=== PATIENT | male | born 1940 | race Caucasian/White ===

== ENCOUNTER 2022-02-04 17:25 | Emergency (ER) | payer OTHER, SELFPAY ==
[2022-02-04 17:42] VITALS: BP 141/75; PULSE 74; RESP 18; TEMP 37; O2SAT 98; BMI 24.3
--- NOTE | 2022-02-04 18:04 | ED.NURSE ---
did call mike manuel to report the dog bite. at bs.
--- NOTE | 2022-02-04 18:04 | ED.ANIMALBIT ---
HPI - Animal Bite General Time Seen by Provider: 18:04 Date Seen: 02/04/22 Chief Complaint: Animal Bite Stated Complaint: Dog bite on L hand Time Seen by Provider: 02/04/22 18:03 Source: patient and RN notes reviewed Mode of arrival: ambulatory Limitations: no limitations History of Present Illness HPI narrative: Patient presents accompanied by his after sustaining bite to his left hand by a dog the just adopted. They had just gotten a husky that was almost 2 years old, had gotten it from someone whom stated that it just was not working other household. The dog was attempting to run on a broken leash, he went to grab the leash and the dog went to bite at his hand. He was able to grab the dog's collar with his other hand. Patient's last tetanus listed in the [place] immunization website is 2003. Thus he agrees to have his immunization updated. Dog is up-to-date on rabies in immunizations. Appropriate authorities have been notified by nursing staff. They plan on taking the dog back to its original on her tomorrow. He denies any numbness or tingling, states all the fingers in the bones in his hand seemed to be working fine without any pain or limitation of motion. MD complaint: animal bite Animal: dog Description of animal: household pet and immunizations UTD Related Data Patient tetanus UTD: No (Last listed 2003) Allergies Allergy/AdvReac Type Severity Reaction Status Date / Time No Known Drug Allergies Allergy Verified 02/04/22 17:41 Review of Systems Narrative: As per HPI PFSH PFSH Social History Smoking Status: Never smoker Do you use any of these nicotine containing products: None Second hand tobacco smoke exposure: Yes How often do you have a drink containing alcohol: never How often do you have six or more drinks on one occasion: Never AUDIT-C Alcohol total score: 0 Non-prescribed substance use: denies use service: Yes Exam Const: Vital Signs, click to edit/add: Vital Signs - 24 hr 02/04/22 17:42 Temperature 98.6 F Pulse Rate [Pulse Oximeter] 74 Respiratory Rate 18 Blood Pressure [Ri ght Upper Arm] 141/75 H Pulse Oximetry 98 Oxygen Delivery Me thod Room Air Documenting provider has reviewed patient's vital signs: yes Extremity: Other: Patient's left hand has some bruise seen along the thumb but no open wound [place], full range of motion of the thumb, neurovascular is intact. In the interdigital web space between the thumb and 2nd finger, there is about a 2 cm laceration that extends into the subcutaneous tissue. It does not go beyond the subcutaneous tissue but is gaping. There is no active bleeding at this time. Full range of motion of all the digits the hand and the wrist, no neurovascular compromise on examination. After my initial inspection, I anesthetized the wound with 5 mL of 1% lidocaine. I have asked the fisheries technical officer to irrigate the wound with 500 mL of saline. Course Course Hospital Course: I have discussed with the patient and his that this is an animal bite which is at higher risk of infection. Unfortunately this is a gaping wound and if left to heal on its own this will take him weeks if maybe not longer and will continually likely get aggravated an cause rebleeding. Given the gaping nature here in the placement of this wound, I do feel a few sutures to try to loosely reapproximate the wound leaving space for drainage if needed should be done. We went over the risks, benefits of my approach and they agree with placing some sutures to help with wound healing. They understand that they radically this could increase the risk of infection. They also understand that I will request to go on antibiotics for wound prophylaxis from the animal bite. Vital Signs Vital signs: Initial Vital Signs Temperature 98.6 F 02/04/22 17:42 Temperature Source Temporal Artery Scan 02/04/22 17:42 Pulse Rate 74 02/04/22 17:42 Pulse Rhythm 02/04/22 17:42 Respiratory Rate 18 02/04/22 17:42 Blood Pressure 141/75 H 02/04/22 17:42 Blood Pressure Mean 97 02/04/22 17:42 Blood Pressure Position Supine 02/04/22 17:42 Pulse Oximetry 98 02/04/22 17:42 Oxygen Delivery Method 02/04/22 17:42 Vital Signs Temperature 98.6 F 02/04/22 17:42 Pulse Rate 74 02/04/22 17:42 Respiratory Rate 18 02/04/22 17:42 Blood Pressure 141/75 H 02/04/22 17:42 Pulse Oximetry 98 02/04/22 17:42 Oxygen Delivery Method 02/04/22 17:42 Temperature 98.6 F 02/04/22 17:42 Pulse Rate 74 02/04/22 17:42 Respiratory Rate 18 02/04/22 17:42 Blood Pressure 141/75 H 02/04/22 17:42 Pulse Oximetry 98 02/04/22 17:42 Oxygen Delivery Method 02/04/22 17:42 Critical Care Time Critical Care Time Critical Care Time: No Discharge Plan Discharge Clinical Impression: Dog bite Laceration of hand Qualifiers: Encounter type: initial encounter Foreign body presence: without foreign body Laterality: left Qualified Code(s): S61.412A - Laceration without foreign body of left hand, initial encounter Condition: Stable Instructions: Animal Bite (ED), Care For Your Stitches (ED), Laceration (ED) Additional Instructions: May shower and wash this hand but should otherwise keep it clean and dry until it is healed. This wound should be re-evaluated within 3-5 days to ensure adequate healing and no evidence of infection. Ultimately, a wound evaluation about 10 days should also happen to assess the wound for suture removal. Take the antibiotic prescribed to help prevent infection. If this wound is becoming more red, swollen, looks to be infected despite the antibiotic use, do need to be re-evaluated. You certainly should keep this clean and dry, consider use of bacitracin and bandages when up and about or out in public. Stand Alone Forms: [facility] Info Instructions Procedures Laceration Laceration 1: Pre procedure diagnosis: Laceration sustained from dog bite Post procedure diagnosis: Same Name of person performing procedure: Krystyna Kelsey Site: hand Side (If applicable): left Size (cm): 2.0 Description: linear Depth: simple, single layer Local Anesthetic: lidocaine 1% and with epi Amount of anesthesia used (mL): 5.0 Pre-repair: wound explored, irrigated extensively and deep structures intact Skin layer closed with: other (Ethilon) Size (cm): 3-0 Number of sutures: 3 Technique: simple, interrupted (Loosely reapproximating the wound) Wound cleansing: sterile water Estimated blood loss (if any): none Conclusion: patient tolerated procedure
[2022-02-04] MEDS: TETANUS/DIPHTH/PERTUSSIS 0.5 ML SYRINGE IM (18:35)
== END 2022-02-04 19:00 | disposition home or self-care (01) ==
LOC: ED 18:48
PROVIDERS: Emergency Provider Family Medicine
DX: S61.412A Laceration without foreign body of left hand, initial encounter (principal); W54.0XXA Bitten by dog, initial encounter
CPT/HCPCS: 12001; 90471; 90715; 99283

== ENCOUNTER 2023-11-23 11:32 | Outpatient (CLI) | payer OTHER, SELFPAY ==
--- OUTSIDE RECORDS SUMMARY | 2023-12-09 15:33 | XMS_ITS | Clinical Summary ---
Author Organization [facility] Address [address] [place] [address] Care Team Providers Care Buyer Agent Name Role Phone Elsewhere, Pcp Primary Care Provider Unavailabl e Source Comments Patient records contain information from all sites at [facility]. For routine questions regarding patient records, call [phone] during business hours, M-F 8:00 AM - 5:00 PM Central Time. Record requests for emergency care only can be directed to [phone] at any time.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 11/24/2023 History Of Falling 11/23/2023 Subarachnoid Hematoma Trauma Without Loss Of Consciousness Subsequent 11/23/2023 Contusion Scalp Initial 11/23/2023 Fracture Rib One Open Initial Left 11/23/2023 Contusion Other Intra Abdominal Organs Initial 0 11/23/2023 Anemia Posthemorrhagic Acute (Blood Loss Anemia) 11/23/2023 Fracture Acetabulum Other Closed Initial Left 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 Fracture Acetabulum Closed Initial Left (HCC) (Primary Dx) 11/25/2023 7:44 AM CDT Anesthesia Event [facility] OR [address] [place] [phone] Ale Tatum M.D. 11/25/2023 7:25 AM CDT - 11/25/2023 12:22 PM CDT Surgery [facility] OR [address] [place] [phone] Naveed Higuera M.D. OPEN REDUCTION INTERNAL FIXATION ACETABULUM. 11/25/2023 Clinical Communication RST [facility] [address] [place] [phone] Vanessa Curiel APRN, MYLA, D.N.P., M.S.N. 11/23/2023 8:45 PM CDT Ancillary Procedure Department of Nursing 11/23/2023 8:40 PM CDT Ancillary Procedure Department of Nursing 11/23/2023 12:47 PM CDT - Present Hospital Encounter [facility], [facility], Fifth Floor [address] [place] [phone] Carol Miller M.D. Jason Navarrete M.D. Landen Quinonez M.D. Alexi Khan M.D. 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) [S06.9X9A]; Subarachnoid Hematoma Trauma Without Loss Of Consciousness Subsequent [S06.6X0D]; Lack Of Coordination [R27.9]; Other Abnormalities Of Gait And Mobility [R26.89]; 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) [G30.9, F02.80]; Delirium [R41.0] from Last 3 Months Immunizations Name Administration Dates Next Due Tdap 11/23/2023 Social History Tobacco Use Types Packs/Day Years Used Date Smoking Tobacco: Never Assessed Dental Answer Date Recorded Dental: Regular Dentist Unknown 11/23/19 24 Sex and Gender Information Value Date Recorded Sex Assigned at Not on file Gender Identity Not on file Sexual Orientation Not on file Last Filed Vital Signs Vital Sign Reading Time Taken Comments Blood Pressure 117/52 12/09/2023 8:00 AM CDT Pulse 74 12/09/2023 8:00 AM CDT Temperature 37.2 ??C (99 ??F) 12/09/2023 8:00 AM CDT Respiratory Rate 17 12/09/2023 8:00 AM CDT Oxygen Saturation 98% 12/09/2023 8:00 AM CDT Inhaled Oxygen Concentration - - Weight 93.4 kg (205 lb 14.6 oz) 11/30/2023 5:00 AM CDT Height 180.3 cm (5' 10.98) 11/29/2023 1:51 PM C DT Body Mass Index 28.73 11/29/2023 1:51 PM CDT Plan of Treatment Upcoming Encounters Date Type Department Care Team (Late st Contact Info) Description 12/27/2023 1:15 PM CDT Clinical Communication Virtual Review in [place], [place] [address] [place] [phone] 12/28/2023 7:45 AM CDT Appointment Department of Radiology, [facility], [place], [place] [address] [place] [phone] Sera Avila P.A.-C., M.S. [address] [place] [phone] 12/28/2023 8:15 AM CDT Appointment Department of Radiology, [facility], in [address] [phone] Vanessa Curiel APRN, GRIP, D.N.P., M.S.N. [address] [place] [phone] 12/28/2023 2:00 PM CDT Office Visit Department of Neurologic Surgery in [place], [place] [address] [place] [phone] Harmony Lomas APRN, C.N.P., M.S.N. [address] [place] [phone] 01/05/2024 9:45 AM CDT Office Visit Department of Orthopedic Surgery in [place], [place] [address] [place] [phone] Rodrigo Leiva M.D. [address] [place] [phone] Health Maintenance Due Date Last Done Comments Zoster Vaccines (1 of 2) 1992 Pneumococcal vaccine (65+ ye ars) (1 of 1 - PCV) 2007 COVID-19 Vaccine (1 - 2022-24 season) 2023 Influenza Vaccine (#1) 2023 Fall Risk Screen (Annual) 06/20/2023 DTaP,Tdap,and Td Vaccines (3 - Td or Tdap) 11/22/2033 11/23/2023, 02/04/2022, 09/20/2003 Medical Devices Implanted Type Area Hydraulic Strainer Operator Device Identifier Shelf Expiration Date Model / Serial / Lot Grft Ost Dbm p [facility] 5 - [id number] - [id number] Implanted:Qt y: 1 on 11/25/2023 by Naveed Higuera M.D. at [facility] Bone or Tissue Left: Acetabulum Med[employer] 05/29/2028 [id number] / [id number] / Clp Apr Lgc Intnl [facility] 9.75 - [id number] Implanted:Qt y: 1 on 11/25/2023 by Naveed Higuera M.D. at [facility] Hardware e.g. pins/screws /rods Left: Acetabulum Ethicon [id number] 09/17/2028 [id number] / / [id number] Washr Rnd Ss Elkin Elkin 9x8x3.5 - [id number] Implanted:Qt y: 1 on 11/25/2023 by Naveed Higuera M.D. at [facility] Hardware e.g. pins/screws /rods Left: Acetabulum Tamiko [id number] / / Plt Spctnl Qls 16h Lt - [id number] Implanted:Qt y: 1 on 11/25/2023 by Naveed Higuera M.D. at [facility] Hardware e.g. pins/screws /rods Left: Acetabulum Tamiko [id number] / / Scrw Axs St Fthrd Lck 3.5x38 - [id number] Implanted:Qt y: 1 on 11/25/2023 by Naveed Higuera M.D. at [facility] Hardware e.g. pins/screws /rods Left: Acetabulum Tamiko [id number] / / Scrw Axs St Fthrd Lck 3.5x26 - [id number] Implanted:Qt y: 1 on 11/25/2023 by Naveed Higuera M.D. at [facility] Hardware e.g. pins/screws /rods Left: Acetabulum [place] [id number] / / Scrw Axs St Fthrd Lck 3.5x55 - [id number] Implanted:Qt y: 2 on 11/25/2023 by Naveed Higuera M.D. at [facility] Hardware e.g. pins/screws /rods Left: Acetabulum Tamiko [id number] / / Scrw Axs St Fthrd Lck 3.5x28 - [id number] Implanted:Qt y: 2 on 11/25/2023 by Naveed Higuera M.D. at [facility] Hardware e.g. pins/screws /rods Left: Acetabulum [place] [id number] / / Scrw Axs St Fthrd Lck 3.5x34 - [id number] Implanted:Qt y: 1 on 11/25/2023 by Naveed Higuera M.D. at [facility] Hardware e.g. pins/screws /rods Left: Acetabulum [place] [id number] / / Scrw Axs St Fthrd Lck 3.5x90 - [id number] Implanted:Qt y: 1 on 11/25/2023 by Naveed Higuera M.D. at [facility] Hardware e.g. pins/screws /rods Left: Acetabulum [place] [id number] / / Scrw Axs St Fthrd Lck 3.5x95 - [id number] 3 Implanted:Qt y: 1 on 11/25/2023 by Naveed Higuera M.D. at [facility] Hardware e.g. pins/screws /rods Left: Acetabulum [place] [id number] / / Scrw Axs St Fthrd Lck 3.5x120 - [id number] Implanted:Qt y: 2 on 11/25/2023 by Naveed Higuera M.D. at [facility] Hardware e.g. pins/screws /rods Left: Acetabulum Tamiko [id number] / / Procedures The patient is currently admitted. The information in this section might not be complete until the patient is discharged. Procedure Name Priority Date/Time Associated Diagnosis Comments BASIC METABOLIC PANEL, S/P Routine 12/06/2023 9:06 PM CDT DX CHEST PORTABLE 1 VIEW RAD - Routine (most inpatients and all outpatients) 12/06/2023 7:14 AM CDT BASIC METABOLIC PANEL, S/P Routine 12/05/2023 8:57 PM CDT CBC WITHOUT DIFFERENTIAL, B Routine 12/05/2023 8:57 PM CDT US LOWER EXTREMITY VEINS BILATERAL RAD - Routine (most inpatients and all outpatients) 12/05/2023 11:25 AM CDT DX PELVIS 1-2 VIEWS RAD - Routine (most inpatients and all outpatients) 12/04/2023 12:00 PM CDT DX CHEST PORTABLE 1 VIEW RAD - Timed (for specific dates/times) 12/03/2023 7:32 AM CDT BASIC METABOLIC PANEL, S/P Routine 12/02/2023 8:42 PM CDT CBC WITH DIFFERENTIAL, B Routine 12/02/2023 8:42 PM CDT DX ABDOMEN 1 VIEW RAD - Routine (most inpatients and all outpatients) 12/02/2023 5:41 AM CDT DX CHEST AP OR PA AND LATERAL 2 VIEWS RAD - Emergent (Fastest; for the most critically ill patients) 12/02/2023 5:[address] HEAD WITHOUT IV CONTRAST RAD - Emergent (Fastest; for the most critically ill patients) 12/01/2023 12:11 PM CDT DX CHEST PORTABLE 1 VIEW RAD - Timed (for specific dates/times) 12/01/2023 8:18 AM CDT DX ABDOMEN PORTABLE ANTERIOR POSTERIOR 1 VIEW RAD - Timed (for specific dates/times) 12/01/2023 8:18 AM CDT BASIC METABOLIC PANEL, S/P Timed 12/01/2023 7:09 AM CDT CBC WITHOUT DIFFERENTIAL, B Timed 12/01/2023 7:09 AM CDT HYPERINFLATION RIB FRACTURE Routine 11/30/2023 6:26 AM CDT HYPERINFLATION RIB FRACTURE Routine 11/30/2023 6:26 AM CDT DX ABDOMEN 1 VIEW RAD - Timed (for specific dates/times) 11/30/2023 5:45 AM CDT DX CHEST 1 VIEW RAD - Timed (for specific dates/times) 11/30/2023 5:[address] HEAD WITHOUT IV CONTRAST RAD - Timed (for specific dates/times) 11/30/2023 5:34 AM CDT BASIC METABOLIC PANEL, S/P Routine 11/29/2023 9:20 PM CDT CBC WITHOUT DIFFERENTIAL, B Routine 11/29/2023 9:20 PM CDT DX ABDOMEN PORTABLE ANTERIOR POSTERIOR 1 VIEW RAD - Routine (most inpatients and all outpatients) 11/29/2023 11:00 AM CDT RT PULSE OXIMETRY, OVERNIGHT Routine 11/29/2023 7:[address] HEAD WITHOUT IV CONTRAST RAD - Routine (most inpatients and all outpatients) 11/29/2023 7:31 AM CDT BASIC METABOLIC PANEL, S/P Timed 11/29/2023 7:01 AM CDT CBC WITHOUT DIFFERENTIAL, B Timed 11/29/2023 7:01 AM CDT DX CHEST PORTABLE 1 VIEW RAD - Timed (for specific dates/times) 11/29/2023 5:58 AM CDT TROPONIN T, 2H/6H REFLEX, 5TH GEN, P Timed 11/28/2023 11:33 PM CDT PHOSPHORUS (INORGANIC), S STAT 11/28/2023 9:01 PM CDT MAGNESIUM, S STAT 11/28/2023 9:01 PM CDT BASIC METABOLIC PANEL, S/P STAT 11/28/2023 9:01 PM CDT TROPONIN T, BASELINE, 5TH GEN, P STAT 11/28/2023 9:01 PM CDT ECG STAT 11/28/2023 8:57 PM CDT US LOWER EXTREMITY VEINS BILATERAL RAD - Routine (most inpatients and all outpatients) 11/28/2023 3:20 PM CDT BASIC METABOLIC PANEL, S/P Timed 11/28/2023 7:41 AM CDT CBC WITHOUT DIFFERENTIAL, B Timed 11/28/2023 7:41 AM CDT ECG Routine 11/28/2023 4:04 AM CDT PHOSPHORUS (INORGANIC), S Timed 11/27/2023 6:37 PM CDT BASIC METABOLIC PANEL, S/P Timed 11/27/2023 6:37 PM CDT DX CHEST PORTABLE 1 VIEW RAD - Routine (most inpatients and all outpatients) 11/27/2023 2:34 PM CDT DX ABDOMEN PORTABLE ANTERIOR POSTERIOR 1 VIEW RAD - Routine (most inpatients and all outpatients) 11/27/2023 2:[address] HEAD WITHOUT IV CONTRAST RAD - Routine (most inpatients and all outpatients) 11/27/2023 6:36 AM CDT CREATINE KINASE (CK), S Routine 11/27/2023 6:13 AM CDT CALCIUM, IONIZED, S/B Routine 11/27/2023 6:13 AM CDT CBC WITHOUT DIFFERENTIAL, B Routine 11/27/2023 6:13 AM CDT BASIC METABOLIC PANEL, S/P Routine 11/27/2023 6:13 AM CDT MAGNESIUM, S Routine 11/27/2023 6:13 AM CDT PHOSPHORUS (INORGANIC), S Routine 11/27/2023 6:13 AM CDT BASIC METABOLIC PANEL, S/P Timed 11/26/2023 5:29 PM CDT PATIENT STATUS, ABG Timed 11/26/2023 5 :28 PM CDT ABG W/COOX Timed 11/26/2023 5:28 PM CDT DX CHEST PORTABLE 1 VIEW RAD - Semiurgent (Fast; most ED patients; some inpatients) 11/26/2023 5:20 PM CDT PREPARE FRESH FROZEN PLASMA Routine 11/26/2023 4:30 PM CDT CBC WITHOUT DIFFERENTIAL, B Timed 11/26/2023 2:01 PM CDT PREPARE PLATELETS Routine 11/26/2023 12:30 PM CDT PH BLOOD GAS STAT 11/26/2023 11:21 AM CDT CALCIUM, IONIZED, S/B STAT 11/26/2023 11:21 AM CDT ECG Routine 11/26/2023 8:06 AM CDT PATIENT STATUS, ABG Routine 11/26/2023 7 :49 AM CDT ABG W/COOX Routine 11/26/2023 7:49 AM CDT MAGNESIUM, S Routine 11/26/2023 7:48 AM CDT CREATINE KINASE (CK), S Routine 11/26/2023 7:48 AM CDT BASIC METABOLIC PANEL, S/P Routine 11/26/2023 7:48 AM CDT CBC WITHOUT DIFFERENTIAL, B Routine 11/26/2023 7:48 AM CDT THROMBOELASTOGRAPH, KAOLIN, B Timed 11/26/2023 7:[address] ABDOMEN PELVIS WITH IV CONTRAST RAD - Routine (most inpatients and all outpatients) 11/26/2023 6:[address] HEAD WITHOUT IV CONTRAST RAD - Routine (most inpatients and all outpatients) 11/26/2023 6:14 AM CDT TRANSFUSE FRESH FROZEN PLASMA Routine 11/26/2023 3:50 AM CDT TRANSFUSE FRESH FROZEN PLASMA Routine 11/26/2023 1:34 AM CDT TRANSFUSE PLATELETS Routine 11/26/2023 12:23 AM CDT CBC WITHOUT DIFFERENTIAL, B Timed 11/25/2023 11:29 PM CDT TRANSFUSE PLATELETS Routine 11/25/2023 11:26 PM CDT PATIENT STATUS, ABG STAT 11/25/2023 9 :58 PM CDT ABG W/COOX STAT 11/25/2023 9:58 PM CDT TRANSFUSE EMERGENCY RELEASED (UNCROSSMATCHED) RED BLOOD CELLS Routine 11/25/2023 9:55 PM CDT TRANSFUSE EMERGENCY RELEASED (UNCROSSMATCHED) RED BLOOD CELLS Routine 11/25/2023 9:48 PM CDT TRANSFUSE EMERGENCY RELEASED (UNCROSSMATCHED) RED BLOOD CELLS Routine 11/25/2023 9:41 PM CDT TRANSFUSE EMERGENCY RELEASED (UNCROSSMATCHED) RED BLOOD CELLS Routine 11/25/2023 9:24 PM CDT LACTATE, B/P STAT 11/25/2023 9:05 PM CDT BASIC METABOLIC PANEL, S/P STAT 11/25/2023 9:05 PM CDT CBC WITHOUT DIFFERENTIAL, B STAT 11/25/2023 9:05 PM CDT THROMBOELASTOGRAPH, KAOLIN, B STAT 11/25/2023 9:04 PM CDT TROPONIN T, 2H/6H REFLEX, 5TH GEN, P Timed 11/25/2023 5:38 PM CDT PH BLOOD GAS STAT 11/25/2023 3:32 PM CDT CALCIUM, IONIZED, S/B STAT 11/25/2023 3:32 PM CDT PHOSPHORUS (INORGANIC), S STAT 11/25/2023 3:31 PM CDT MAGNESIUM, S STAT 11/25/2023 3:31 PM CDT TROPONIN T, BASELINE, 5TH GEN, P STAT 11/25/2023 3:30 PM CDT CBC WITHOUT DIFFERENTIAL, B STAT 11/25/2023 3:30 PM CDT BASIC METABOLIC PANEL, S/P STAT 11/25/2023 3:30 PM CDT ECG Semiurgent (Fast, most ED patients, some inpatients) 11/25/2023 3:16 PM CDT FL FLUORO LESS THAN 1 HOUR RAD - Routine (most inpatients and all outpatients) 11/25/2023 2:52 PM CDT DX PELVIS 3+ VIEWS RAD - Routine (most inpatients and all outpatients) 11/25/2023 2:37 PM CDT AUTOLOGOUS RED BLOOD CELLS-CELL SALVAGE Routine 11/25/2023 1:40 PM CDT PATIENT STATUS, ABG STAT 11/25/2023 1 :31 PM CDT GLUCOSE, WHOLE BLOOD STAT 11/25/2023 1:31 PM CDT POTASSIUM, B STAT 11/25/2023 1:31 PM CDT SODIUM, B STAT 11/25/2023 1:31 PM CDT CALCIUM, IONIZED, S/B STAT 11/25/2023 1:31 PM CDT ABG W/COOX STAT 11/25/2023 1:31 PM CDT AUTOLOGOUS RED BLOOD CELLS-CELL SALVAGE Routine 11/25/2023 12:34 PM CDT HEMOGLOBIN, WHOLE BLOOD STAT 11/25/2023 12:13 PM CDT TRANSFUSE RED BLOOD CELLS Routine 11/25/2023 11:50 AM CDT LACTATE, B STAT 11/25/2023 11:09 AM CDT GLUCOSE, WHOLE BLOOD STAT 11/25/2023 11:09 AM CDT POTASSIUM, B STAT 11/25/2023 11:09 AM CDT SODIUM, B STAT 11/25/2023 11:09 AM CDT CALCIUM, IONIZED, S/B STAT 11/25/2023 11:09 AM CDT ABG W/COOX STAT 11/25/2023 11:09 AM CDT TRANSFUSE RED BLOOD CELLS Routine 11/25/2023 10:17 AM CDT TRANSFUSE RED BLOOD CELLS Routine 11/25/2023 9:36 AM CDT PATIENT STATUS, ABG STAT 11/25/2023 9 :22 AM CDT GLUCOSE, WHOLE BLOOD STAT 11/25/2023 9:22 AM CDT POTASSIUM, B STAT 11/25/2023 9:22 AM CDT SODIUM, B STAT 11/25/2023 9:22 AM CDT CALCIUM, IONIZED, S/B STAT 11/25/2023 9:22 AM CDT ABG W/COOX STAT 11/25/2023 9:22 AM CDT LDA ANE ARTERIAL LINE INSERTION Routine 11/25/2023 8:12 AM CDT MD ARTL CATH/CNULA MONITOR PERC Routine 11/25/2023 8:12 AM CDT LDA ANE ENDOTRACHEAL AIRWAY Routine 11/25/2023 8:01 AM CDT OPEN REDUCTION INTERNAL FIXATION ACETABULUM 11/25/2023 7:24 AM CDT Fracture Acetabulum Closed Initial Left (HCC) Special Needs Supine.[place] pelvis set.Shanz pins. PATIENT STATUS Timed 11/25/2023 7:08 AM CDT VENOUS BLOOD GAS W/COOX, B Timed 11/25/2023 7:08 AM CDT CREATINE KINASE (CK), S Routine 11/25/2023 6:15 AM CDT PHOSPHORUS (INORGANIC), S Routine 11/25/2023 6:15 AM CDT MAGNESIUM, S Routine 11/25/2023 6:15 AM CDT BASIC METABOLIC PANEL, S/P Routine 11/25/2023 6:15 AM CDT CBC WITHOUT DIFFERENTIAL, B Routine 11/25/2023 6:15 AM CDT DX CHEST PORTABLE 1 VIEW RAD - Routine (most inpatients and all outpatients) 11/25/2023 5:41 AM CDT ECG STAT 11/25/2023 5:33 AM CDT CBC WITHOUT DIFFERENTIAL, B Timed 11/24/2023 2:48 PM CDT MICROSCOPIC MANUAL Routine 11/24/2023 9: 58 AM CDT DIPSTICK, U Routine 11/24/2023 9:58 AM CDT PH, U Routine 11/24/2023 9:58 AM CDT OSMOLALITY, U Routine 11/24/2023 9:58 AM CDT URINALYSIS WITH MICROSCOPIC Routine 11/24/2023 9:58 AM CDT PATIENT STATUS STAT 11/24/2023 9:26 AM CDT VENOUS BLOOD GAS W/COOX, B STAT 11/24/2023 9:26 AM CDT LACTATE, B/P STAT 11/24/2023 9:26 AM CDT CREATINE KINASE (CK), S Routine 11/24/2023 9:26 AM CDT CBC WITHOUT DIFFERENTIAL, B Routine 11/24/2023 9:26 AM CDT BASIC METABOLIC PANEL, S/P Routine 11/24/2023 9:26 AM CDT ECG Routine 11/24/2023 9:[address] HEAD WITHOUT IV CONTRAST RAD - Timed (for specific dates/times) 11/24/2023 9:02 AM CDT DRUG SCREEN URINE Timed 11/24/2023 7:0 1 AM CDT DX CHEST PORTABLE 1 VIEW RAD - Routine (most inpatients and all outpatients) 11/24/2023 5:29 AM CDT DX FEMUR LEFT 1 VIEW RAD - Semiurgent (Fast; most ED patients; some inpatients) 11/24/2023 5:27 AM CDT LACTATE, B/P Timed 11/23/2023 10:52 PM CDT CBC WITHOUT DIFFERENTIAL, B Timed 11/23/2023 10:52 PM CDT TROPONIN T, 6H, 5TH GEN, P Timed 11/23/2023 10:52 PM CDT DX FEMUR LEFT 2 VIEWS RAD - Semiurgent (Fast; most ED patients; some inpatients) 11/23/2023 10:45 PM CDT DX PELVIS 1-2 VIEWS RAD - Semiurgent (Fast; most ED patients; some inpatients) 11/23/2023 10:45 PM CDT ORTHOPEDIC INJURY TREATMENT - FRACTURE DISLOCATION Routine 11/23/2023 8:58 PM CDT Fracture Pelvis Multiple Closed With Stable Disruption Pelvis Ring Initial (HCC) NURSING IMAGE EXAM Routine 11/23/2023 8: 41 PM CDT NURSING IMAGE EXAM Routine 11/23/2023 8: 40 PM CDT TROPONIN T, 2H/6H REFLEX, 5TH GEN, P Timed 11/23/2023 6:55 PM CDT PATIENT STATUS STAT 11/23/2023 4:52 PM CDT VENOUS BLOOD GAS W/COOX, B STAT 11/23/2023 4:52 PM CDT PH BLOOD GAS STAT 11/23/2023 4:51 PM CDT HEMOGLOBIN A1C, B STAT 11/23/2023 4:5 1 PM CDT CREATINE KINASE (CK), S STAT 11/23/2023 4:51 PM CDT TROPONIN T, BASELINE, 5TH GEN, P STAT 11/23/2023 4:51 PM CDT PROTHROMBIN TIME (PT), P STAT 11/23/2023 4:51 PM CDT PHOSPHORUS (INORGANIC), S STAT 11/23/2023 4:51 PM CDT MAGNESIUM, S STAT 11/23/2023 4:51 PM CDT LACTATE, B/P STAT 11/23/2023 4:51 PM CDT CBC WITHOUT DIFFERENTIAL, B STAT 11/23/2023 4:51 PM CDT CALCIUM, IONIZED, S/B STAT 11/23/2023 4:51 PM CDT BASIC METABOLIC PANEL, S/P STAT 11/23/2023 4:51 PM CDT THROMBOELASTOGRAPH, KAOLIN, B STAT 11/23/2023 4:49 PM CDT CRITICAL CARE Routine 11/23/2023 4:42 PM CDT ECG Semiurgent (Fast, most ED patients, some inpatients) 11/23/2023 4:[address] RETROSPECTIVE 3D POST PROCESSING RAD - Routine (most inpatients and all outpatients) 11/23/2023 4:37 PM CDT DX PELVIS 1-2 VIEWS RAD - Semiurgent (Fast; most ED patients; some inpatients) 11/23/2023 4:08 PM CDT BASIC METABOLIC PANEL, S/P STAT 11/23/2023 2:52 PM CDT TROPONIN T, 2H/6H REFLEX, 5TH GEN, P Timed 11/23/2023 2:52 PM CDT ECG Routine 11/23/2023 2:45 PM CDT DX PELVIS 3+ VIEWS RAD - Semiurgent (Fast; most ED patients; some inpatients) 11/23/2023 2:10 PM CDT DX FEMUR LEFT 2 VIEWS RAD - Semiurgent (Fast; most ED patients; some inpatients) 11/23/2023 2:[address] LUMBAR SPINE BY RECONSTRUCTION RAD - Emergent (Fastest; for the most critically ill patients) 11/23/2023 1:[address] THORACIC SPINE BY RECONSTRUCTION RAD - Emergent (Fastest; for the most critically ill patients) 11/23/2023 1:[address] ABDOMEN PELVIS WITH IV CONTRAST RAD - Emergent (Fastest; for the most critically ill patients) 11/23/2023 1:[address] CHEST WITH IV CONTRAST RAD - Emergent (Fastest; for the most critically ill patients) 11/23/2023 1:[address] CERVICAL SPINE WITHOUT IV CONTRAST RAD - Emergent (Fastest; for the most critically ill patients) 11/23/2023 1:[address] HEAD WITHOUT IV CONTRAST RAD - Emergent (Fastest; for the most critically ill patients) 11/23/2023 1:44 PM CDT LACTATE FOR SEPSIS WITH REFLEX, POCT STAT 11/23/2023 1:06 PM CDT VBG & LYTES CG8+, POCT, B STAT 11/23/2023 1:06 PM CDT PREPARE RED BLOOD CELLS STAT 11/23/2023 1:06 PM CDT PREPARE RED BLOOD CELLS STAT 11/23/2023 1:06 PM CDT PREPARE RED BLOOD CELLS Routine 11/23/2023 1:06 PM CDT TROPONIN T, BASELINE, 5TH GEN, P STAT 11/23/2023 1:06 PM CDT TYPE AND SCREEN STAT 11/23/2023 1:06 PM CDT ACTIVATED PARTIAL THROMBOPLASTIN TIME (APTT), P STAT 11/23/2023 1:06 PM CDT PROTHROMBIN TIME (PT), P STAT 11/23/2023 1:06 PM CDT CBC WITH DIFFERENTIAL, B STAT 11/23/2023 1:06 PM CDT THYROID-STIMULATING HORMONE-SENSITIVE (S-TSH) STAT 11/23/2023 1:05 PM CDT LIPASE, S/P STAT 11/23/2023 1:05 PM CDT HEPATIC FUNCTION PANEL, S STAT 11/23/2023 1:05 PM CDT ETHANOL, S STAT 11/23/2023 1:05 PM CDT BASIC METABOLIC PANEL, S/P STAT 11/23/2023 1:05 PM CDT DX PELVIS 1-2 VIEWS RAD - Emergent (Fastest; for the most critically ill patients) 11/23/2023 1:01 PM CDT DX CHEST PORTABLE 1 VIEW RAD - Emergent (Fast[facility]; for the most critically ill patients) 11/23/2023 1:01 PM CDT THROMBOELASTOGRAPH, KAOLIN, B STAT 11/23/2023 12:59 PM CDT from Last 3 Months Results * (ABNORMAL) Basic Metabolic Panel (12/06/2023 9:06 PM CDT) Only the most recent of19 resultswithin the time period is included. Potassium, S 4.5 3.6 - 5.2 mmol/L 12/06/2023 9:46 PM CDT DTL Sodium, S 137 135 - 145 mmol/L 12/06/2023 9:46 PM CDT DTL Chloride, S 102 98 - 107 mmol/L 12/06/2023 9:46 PM CDT DTL Bicarbonate, S 27 22 - 29 mmol/L 12/06/2023 9:46 PM CDT DTL Anion Gap 8 7 - 15 12/06/2023 9:46 PM CDT DTL BUN (Blood Urea Nitrogen), S 27(H) 8 - 24 mg/dL 12/06/2023 9:46 PM CDT DTL Creatinine 1.03 0.74 - 1.35 mg/dL 12/06/2023 9:46 PM CDT DTL Estimated GFR (eGFR) 73 >=60 mL/min/BSA 12/06/2023 9:46 PM CDT DTL Comment: Estimated GFR calculated using the 2020 CKD_EPI creatinine equation. Calcium, Total, S 7.9(L) 8.8 - 10.2 mg/dL 12/06/2023 9:46 PM CDT DTL Glucose, S 117 70 - 140 mg/dL 12/06/2023 9:46 PM CDT DTL Blood (Blood, Venous) 12/06/2023 9:06 PM CDT 12/06/2023 9:30 PM CDT Kavon Mancilla APRN, C.N.P., D.N.P. LAB BLOOD ADD-ON [facility] [address] [place] [address], [facility] [place]note 2[facility] [address] [place] [address] * DX Chest Portable 1 View (12/06/2023 7:14 AM CDT) Only the most recent of9 resultswithin the time period is included. Anatomical Region Laterality Modality Chest, Thoracic RST LOS, Tho racic ARZ LOS, Thoracic FLA LOS N/A Digital Radiography Impressions 12/06/2023 9:49 AM CDT Since December 03, 2023, Decreased perihilar and bibasilar atelectasis. Low lung volumes accentuate the cardiomediastinal silhouette. Narrative 12/06/2023 9:49 AM CDT EXAM: ??DX CHEST PORTABLE 1 VIEW Procedure Note Celina Smith M.D. - 12/06/2023 EXAM: DX CHEST PORTABLE 1 VIEW IMPRESSION: Since December 03, 2023, Decreased perihilar and bibasilar atelectasis. Low lung volumes accentuate the cardiomediastinal silhouette. Lalita Bacon APRN, C.N.P., D.N.P. IMG D IAGNOSTIC IMAGING PROCEDURES * (ABNORMAL) CBC without Differential (12/05/2023 8:57 PM CDT) Only the most recent of16 resultswithin the time period is included. Hemoglobin 10.4(L) 13.2 - 16.6 g/dL 12/05/2023 9:20 PM CDT DTL Hematocrit 32.2(L) 38.3 - 48.6 % 12/05/2023 9:20 PM CDT DTL Erythrocytes 3.44(L) 4.35 - 5.65 x10(12)/L 12/05/2023 9:20 PM CDT DTL MCV 93.6 78.2 - 97.9 fL 12/05/2023 9:20 PM CDT DTL RBC Distrib Width 14.5 11.8 - 14.5 % 12/05/2023 9:20 PM CDT DTL Platelet Count 305 135 - 317 x10(9)/L 12/05/2023 9:20 PM CDT DTL Leukocytes 6.4 3.4 - 9.6 x10(9)/L 12/05/2023 9:20 PM CDT DTL Blood (Blood, Venous) 12/05/2023 8:57 PM CDT 12/05/2023 9:13 PM CDT Barbara Salamanca APRN.N.P., D.N.P. LAB B LOOD ADD-ON [facility] [address] [place] [address], [place] DTL [facility] [address] [place] [address] * US Lower Extremity Veins Bilateral (12/05/2023 11:25 AM CDT) Only the most recent of2 resultswithin the time period is included. Anatomical Region Laterality Modality Lower Extremity, Ultrasound RST LOS, Ultrasound ARZ LOS, Ultrasound FLA LOS Bilateral Ultrasound Impressions 12/05/2023 11:42 AM CDT Unchanged acute DVT in the left soleal vein and in a small adjacent venous branch. Narrative 12/05/2023 11:42 AM CDT EXAM: US LOWER EXTREMITY VEINS BILATERAL Exam performed with color and spectral Doppler analysis. COMPARISON: Lower extremity venous ultrasound 11/28/2023 FINDINGS: RIGHT: Common Femoral Vein: Negative. Profunda Femoral Vein: Negative. Femoral Vein: Negative. Popliteal Vein: Negative. Gastrocnemius Veins: Negative where seen. Soleal Veins: Negative where seen. Posterior Tibial Veins: Negative where seen. Peroneal Veins: Negative where seen. Great Saphenous Vein: Negative where seen. Small Saphenous Vein: Not Evaluated. Popliteal Fossa: Negative. Other: n/a LEFT: Common Femoral Vein: Negative. Profunda Femoral Vein: Negative. Femoral Vein: Negative. Popliteal Vein: Negative. Gastrocnemius Veins: Negative where seen. Soleal Veins: Acute DVT. Posterior Tibial Veins: Negative where seen. Peroneal Veins: Negative where seen. Great Saphenous Vein: Negative where seen. Small Saphenous Vein: Not Evaluated. Popliteal Fossa: Negative. Other: n/a Information on venous thrombosis and management can be found on the [employer] site. Link [email or web address] Procedure Note Barry Bennett M.D., M.S. - 12/05/2023 EXAM: US LOWER EXTREMITY VEINS BILATERAL Exam performed with color and spectral Doppler analysis. COMPARISON: Lower extremity venous ultrasound 11/28/2023 FINDINGS: RIGHT: Common Femoral Vein: Negative. Profunda Femoral Vein: Negative. Femoral Vein: Negative. Popliteal Vein: Negative. Gastrocnemius Veins: Negative where seen. Soleal Veins: Negative where seen. Posterior Tibial Veins: Negative where seen. Peroneal Veins: Negative where seen. Great Saphenous Vein: Negative where seen. Small Saphenous Vein: Not Evaluated. Popliteal Fossa: Negative. Other: n/a LEFT: Common Femoral Vein: Negative. Profunda Femoral Vein: Negative. Femoral Vein: Negative. Popliteal Vein: Negative. Gastrocnemius Veins: Negative where seen. Soleal Veins: Acute DVT. Posterior Tibial Veins: Negative where seen. Peroneal Veins: Negative where seen. Great Saphenous Vein: Negative where seen. Small Saphenous Vein: Not Evaluated. Popliteal Fossa: Negative. Other: n/a Information on venous thrombosis and management can be found on the[employer] site. [email or web address] IMPRESSION: Unchanged acute DVT in the left soleal vein and in a small adjacent venousbranch. Lalita Bacon APRN, C.N.P., D.N.P. IMG U S PROCEDURES * DX Pelvis 1-2 Views (12/04/2023 12:00 PM CDT) Only the most recent of4 resultswithin the time period is included. Anatomical Region Laterality Modality Pelvis, Musculoskeletal RST LOS, Musculoskeletal ARZ LOS, Muskuloskeletal FLA LOS N/A Digital Radiography Impressions 12/04/2023 2:10 PM CDT Comparison 11/25/2023 pelvis radiograph. Surgical hardware is intact without radiographic evidence of failure. No new fractures. Left pelvic surgical drain.. Narrative 12/04/2023 2:10 PM CDT EXAM: ??DX PELVIS 1-2 VIEWS Procedure Note Santosh Bruno M.B.B.S. - 12/04/2023 EXAM: DX PELVIS 1-2 VIEWS IMPRESSION: Comparison 11/25/2023 pelvis radiograph. Surgical hardware is intactwithout radiographic evidence of failure. No new fractures. Left pelvicsurgical drain.. Lalita Bacon APRN, C.N.P., D.N.P. IMG D IAGNOSTIC IMAGING PROCEDURES * (ABNORMAL) CBC with Differential, Blood (12/02/2023 8:42 PM CDT) Only the most recent of2 resultswithin the time period is included. Hemoglobin 10.6(L) 13.2 - 16.6 g/dL 12/02/2023 9:19 PM CDT DTL Hematocrit 33.0(L) 38.3 - 48.6 % 12/02/2023 9:19 PM CDT DTL Erythrocytes 3.59(L) 4.35 - 5.65 x10(12)/L 12/02/2023 9:19 PM CDT DTL MCV 91.9 78.2 - 97.9 fL 12/02/2023 9:19 PM CDT DTL RBC Distrib Width 14.4 11.8 - 14.5 % 12/02/2023 9:19 PM CDT DTL Platelet Count 217 135 - 317 x10(9)/L 12/02/2023 9:19 PM CDT DTL Leukocytes 5.3 3.4 - 9.6 x10(9)/L 12/02/2023 9:19 PM CDT DTL Neutrophils 3.35 1.56 - 6.45 x10(9)/L 12/02/2023 10:11 PM CDT DHPM Comment:Rechecked Lymphocytes 0.90(L) 0.95 - 3.07 x10(9)/L 12/02/2023 10:11 PM CDT DTL Monocytes 1.01(H) 0.26 - 0.81 x10(9)/L 12/02/2023 10:11 PM CDT DTL Eosinophils <0.03 0.03 - 0.48 x10(9)/L 12/02/2023 10:11 PM CDT DTL Basophils <0.03 0.01 - 0.08 x10(9)/L 12/02/2023 10:11 PM CDT DTL Blood (Blood, Venous) 12/02/2023 8:42 PM CDT 12/02/2023 9:09 PM CDT Lalita Bacon APRN, C.N.P., D.N.P. LAB B LOOD ADD-ON [facility] [address] [place] [address], [place] DTL [facility] [address] [place] [address] [facility] [address] [place] [address] * DX Abdomen 1 View (12/02/2023 5:41 AM CDT) Only the most recent of2 resultswithin the time period is included. Anatomical Region Laterality Modality Abdomen, Abdominal RST LOS, Abdominal ARZ LOS, Abdominal FLA LOS N/A Digital Radiography Impressions 12/02/2023 6:43 AM CDT Compared with 12/01/2023, shifting mild stool burden which is now progressed into the left abdomen. Otherwise nonobstructive bowel gas pattern. Postoperative changes in the pelvis. Soft tissue drain and surgical inna. Narrative 12/02/2023 6:43 AM CDT EXAM: ??DX ABDOMEN 1 VIEW Procedure Note Delbert Hudson M.D. - 12/02/2023 EXAM: DX ABDOMEN 1 VIEW IMPRESSION: Compared with 12/01/2023, shifting mild stool burden which is nowprogressed into the left abdomen. Otherwise nonobstructive bowel gaspattern. Postoperative changes in the pelvis. Soft tissue drain andsurgical inna. Rafal Deleon P.A.-C. IMG DIAGNOSTIC IMAG ING PROCEDURES * DX Chest AP or PA and Lateral 2 Views (12/02/2023 5:40 AM CDT) Anatomical Region Laterality Modality Chest, Thoracic RST LOS, Tho racic ARZ LOS, Thoracic FLA LOS N/A Digital Radiography Impressions 12/02/2023 7:25 AM CDT Compared to 12/01/2023. Lower lung volumes with increased bibasilar atelectasis. Prominence of the interstitium is likely due to technique and low lung volumes. The inferior ribs are incompletely imaged. No visualized acute displaced rib fracture. No pneumothorax. Trace bilateral pleural effusions. Narrative 12/02/2023 7:25 AM CDT EXAM: ??DX CHEST AP OR PA AND LATERAL 2 VIEWS Procedure Note Delbert Hudson M.D. - 12/02/2023 EXAM: DX CHEST AP OR PA AND LATERAL 2 VIEWS IMPRESSION: Compared to 12/01/2023. Lower lung volumes with increased bibasilaratelectasis. Prominence of the interstitium is likely due to technique andlow lung volumes. The inferior ribs are incompletely imaged. No visualizedacute displaced rib fracture. No pneumothorax. Trace bilateral pleural effusions. Rafal Deleon P.A.-C. IMG DIAGNOSTIC IMAG ING PROCEDURES * CT Head without IV Contrast (12/01/2023 12:11 PM CDT) Only the most recent of7 resultswithin the time period is included. Anatomical Region Laterality Modality Head, Neuroradiology RST [facility] , Neuroradiology ARZ [facility], Neuroradiology FLA [facility] N/A Computed Tomography, Compute d Tomography 12/01/2023 12:0 9 PM CDT Impressions 12/01/2023 12:35 PM CDT Stable small amount of blood products in the left lateral ventricle. No new intracranial hemorrhage or significant change since 12/08/2023. Narrative 12/01/2023 12:35 PM CDT EXAM: CT HEAD WITHOUT IV CONTRAST COMPARISON: CT head 11/30/2023 FINDINGS: No significant change since 11/30/2023. Similar small amount of layering blood products in the posterior horn of the left ventricle. No new intracranial hemorrhage. No evidence of acute infarct or mass effect. Stable ventricular caliber. Mild generalized parenchymal volume loss. Unchanged left frontal scalp contusion/hematoma. Unchanged periapical lucency associated with the roots of the left first maxillary molar. The paranasal sinuses and mastoid air cells are well aerated. Procedure Note Ale Marie M.D. - 12/01/2023 EXAM: CT HEAD WITHOUT IV CONTRAST COMPARISON: CT head 11/30/2023 FINDINGS: No significant change since 11/30/2023. Similar small amount oflayering blood products in the posterior horn of the left ventricle. Nonew intracranial hemorrhage. No evidence of acute infarct or mass effect.Stable ventricular caliber. Mild generalized parenchymal volume loss. Unchanged left frontal scalp contusion/hematoma. Unchanged periapicallucency associated with the roots of the left first maxillary molar. Theparanasal sinuses and mastoid air cells are well aerated. IMPRESSION: Stable small amount of blood products in the left lateral ventricle. Nonew intracranial hemorrhage or significant change since 12/08/2023. Garland Meyer P.A.-C. IMG CT PROCEDURES * DX Abdomen Portable Anterior Posterior 1 View (12/01/2023 8:18 AM CDT) Only the most recent of3 resultswithin the time period is included. Anatomical Region Laterality Modality Abdomen, Abdominal RST LOS, Abdominal ARZ LOS, Abdominal FLA LOS N/A Digital Radiography Impressions 12/01/2023 8:30 AM CDT Mild gaseous distention of the small bowel and colon. Generous amount of stool in the ascending, transverse and proximal descending colon. Bowel gas pattern is otherwise unremarkable. Plate and screw fixation of fractures involving the left innominate bone. Skin inna in the pelvis. Surgical drain projected over left abdomen/pelvis laterally. 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 Narrative 12/01/2023 8:30 AM CDT EXAM: ??DX ABDOMEN PORTABLE ANTERIOR POSTERIOR 1 VIEW Procedure Note Alis Lozada M.D. - 12/01/2023 EXAM: DX ABDOMEN PORTABLE ANTERIOR POSTERIOR 1 VIEW IMPRESSION: Mild gaseous distention of the small bowel and colon. Generous amount ofstool in the ascending, transverse and proximal descending colon. Bowelgas pattern is otherwise unremarkable. Plate and screw fixation of fractures involving the left innominate bone.Skin inna in the pelvis. Surgical drain projected over leftabdomen/pelvis laterally. 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 Naveed Dan P.A.-C. IMG DIAGNOSTIC IMAGING PROCEDURES * DX Chest 1 View (11/30/2023 5:45 AM CDT) Anatomical Region Laterality Modality Chest, Thoracic RST LOS, Tho racic ARZ LOS, Thoracic FLA LOS N/A Digital Radiography Impressions 11/30/2023 10:05 AM CDT Since yesterday, increased central pulmonary vascular congestion. Otherwise no significant change accounting for changes in patient positioning. Trace bilateral pleural effusions. No pneumothorax. Stable cardiac silhouette at the upper limit of normal. Aortic calcifications. Nonobstructive bowel gas pattern. Plate and screw fixation of the left hemipelvis with screw fixation of the left iliac crest. Left pelvic soft tissue surgical drains. Narrative 11/30/2023 10:05 AM CDT EXAM: DX CHEST 1 VIEW, DX ABDOMEN 1 VIEW Procedure Note Shaun Mancilla M.D. - 11/30/2023 EXAM: DX CHEST 1 VIEW, DX ABDOMEN 1 VIEW IMPRESSION: Since yesterday, increased central pulmonary vascular congestion.Otherwise no significant change accounting for changes in patientpositioning. Trace bilateral pleural effusions. No pneumothorax. Stablecardiac silhouette at the upper limit of normal. Aortic calcifications. Nonobstructive bowel gas pattern. Plateand screw fixation of the left hemipelvis with screw fixation of the leftiliac crest. Left pelvic soft tissue surgical drains. Naveed Dan P.A.-C. IMG DIAGNOSTIC IMAGING PROCEDURES * RT Pulse Oximetry, Overnight (11/29/2023 7:52 AM CDT) 11/28/2023 Impressions [employer] [facility] - 11/29/2023 1:47 PM CDT Overnight oximetry was performed with the patient utilizing 2 LPM supplemental oxygen but no assisted breathing device. ??Study was performed in the hospital setting but the quality of sleep and medications taken were not provided. ??Mean saturation was near 94% with a 4% desaturation index near 21 per hour with minimum saturation at 78%. Clinical interpretation: ??Abnormal oximetry consistent with moderate sleep disordered breathing with mean saturation otherwise supported with the current supplemental oxygen. Physician: Hema Owens M.D. [id number] Narrative Procedure Note Hema Owens M.D. - 11/29/2023 IMPRESSION: Overnight oximetry was performed with the patient utilizing 2 LPMsupplemental oxygen but no assisted breathing device. Study was performedin the hospital setting but the quality of sleep and medications takenwere not provided. Mean saturation was near 94% with a 4% desaturation index near 21 per hour with minimumsaturation at 78%. Clinical interpretation: Abnormal oximetry consistent with moderate sleepdisordered breathing with mean saturation otherwise supported with thecurrent supplemental oxygen. Physician: Hema Owens M.D. [id number] Josee Rose M.D. [facility] ORDER[facility] LES [employer] [facility] * (ABNORMAL) Troponin T, 2 Hour with 6 Hour Reflex, 5th Gen (11/28/2023 11:33 PM CDT) Only the most recent of4 resultswithin the time period is included. Troponin T, 2 hr, 5th gen 32(H) <=15 ng/L 11/29/2023 12:20 AM CDT STMA 2H Delta 1 ng/L 11/29/2023 12:20 AM CDT ST[facility] Comment:6 hour collection no t indicated. 2H Delta Interp Not Changing 11/29/2023 12:20 AM CDT STMA Blood 11/28/2023 11:3 3 PM CDT 11/28/2023 11:40 PM CDT Barb Davies M.D. LAB BLOOD TROPONIN [facility] [address] [place] [address], [facility] STMA [facility] [address] [place] [address] * (ABNORMAL) Troponin T, Baseline with 2 Hour/6 Hour Reflex Biomarker Panel (11/28/2023 9:01 PM CDT) Only the most recent of4 resultswithin the time period is included. Troponin T, Baseline, 5th gen 31(H) <=15 ng/L 11/28/2023 9:26 PM CDT STMA Blood (Blood, Venous) 11/28/2023 9:01 PM CDT 11/28/2023 9:06 PM CDT Barb Davies M.D. LAB BLOOD TROPONIN [facility] [address] STMA [facility] [address] [place] [address] * Phosphorus Inorganic (11/28/2023 9:01 PM CDT) Only the most recent of6 resultswithin the time period is included. Phosphorus (Inorganic), S 2.5 2.5 - 4.5 mg/dL 11/28/2023 10:02 PM CDT DTL Blood (Blood, Venous) 11/28/2023 9:01 PM CDT 11/28/2023 9:49 PM CDT Barb Davies M.D. LAB BLOOD ADD-ON Performing Organization Address City/[facility]/ZIP Co de Phone Number [facility] [address] [place] [address] * Magnesium (11/28/2023 9:01 PM CDT) Only the most recent of6 resultswithin the time period is included. Magnesium, S 2.1 1.7 - 2.3 mg/dL 11/28/2023 10:02 PM CDT DTL Blood (Blood, Venous) 11/28/2023 9:01 PM CDT 11/28/2023 9:49 PM CDT Barb Davies M.D. LAB BLOOD ADD-ON [facility] [address] [place] [address] * ECG 12 Lead (11/28/2023 8:57 PM CDT) Only the most recent of8 resultswithin the time period is included. Ventricular Rate ECG/Min 88 BPM MUSE MD Interval 136 ms MUSE QRSD Interval 86 ms MUSE QT Interval 384 ms MUSE QTC Interval 464 ms MUSE P Nakina 33 degrees MUSE R Nakina 7 degrees MUSE T Wave Nakina 10 degrees MUSE 11/28/2023 8:57 PM CDT 11/28/2023 9:03 PM CDT Impressions MUSE - 11/28/2023 9:03 PM CDT Sinus rhythm Premature supraventricular complexes in one 4 beat atrial run Otherwise normal ECG When compared with ECG of 28-Nov-2023 04:04, Premature supraventricular complexes are now present Reviewed by ANTONIETA Hart Narrative Procedure Note Tanvir Veras Jr., M.D. - 11/28/2023 IMPRESSION: Sinus rhythm Premature supraventricular complexes in one 4 beat atrial run Otherwise normal ECG When compared with ECG of 28-Nov-2023 04:04, Premature supraventricular complexes are now present Reviewed by ANTONIETA Hart Barb Davies M.D. ECG ORDERABLES Performing Organization Address City/[facility]/ZIP Co de Phone Number MUSE NA * (ABNORMAL) CK (Creatine Kinase) (11/27/2023 6:13 AM CDT) Only the most recent of5 resultswithin the time period is included. Pathologist [facility] Creatine Kinase (CK), S 2232(H) 39 - 308 U/L 11/27/2023 7:28 AM CDT DTL Blood (Blood, Venous) 11/27/2023 6:13 AM CDT 11/27/2023 6:53 AM CDT Serafin Ford M.D. LAB BLOOD ADD-ON [facility] [address] [place] [address] * (ABNORMAL) Calcium, Ionized (11/27/2023 6:13 AM CDT) Only the most recent of7 resultswithin the time period is included. Calcium, Ionized, S 4.41(L) 4.57 - 5.43 mg/dL 11/27/2023 7:12 AM CDT DT Comment: ----ADDITIONAL INFORMATION---- This test has been modified from the brazing machine operator automatic's instructions. Its performance characteristics were determined by [facility] in a manner consistent with CLIA requirements. This test has not been cleared or approved by the U.S. Food and Drug Administration. pH for Ionized Calcium 7.46 7.35 - 7.48 11/27/2023 7:12 AM CDT DT Blood (Blood, Venous) 11/27/2023 6:13 AM CDT 11/27/2023 6:53 AM CDT Charlotte Ordaz APRN, C.N.P., D.N.P. LAB BLOOD NON ADD-ON [facility] [address] [place], [place] [id number] [place] [address] 200 [place] [address] * Patient Status (11/26/2023 5:28 PM CDT) Only the most recent of5 resultswithin the time period is included. O2 Flow 6.0 L/min 11/26/2023 5:32 PM CDT STMA Device NC 11/26/2023 5:32 PM CDT STMA Spont. breaths/min 18 11/26/2023 5:32 PM CDT STMA Blood 11/26/2023 5:28 PM CDT 11/26/2023 5:32 PM CDT Charlotte Ordaz APRN, C.N.P., D.N.P. LAB BLOOD NON ADD-ON Performing Organization Address City/[facility]/ZIP Co de Phone Number [facility] [address] [place] [address], [facility] STMA [facility] [address] [place] [address] * (ABNORMAL) Blood Gas with Coox, Arterial (11/26/2023 5:28 PM CDT) Only the most recent of6 resultswithin the time period is included. pO2 77(L) 83 - 108 mm Hg 11/26/2023 5:34 PM CDT STMA pCO2 36 35 - 48 mm Hg 11/26/2023 5:34 PM CDT STMA pH 7.47(H) 7.35 - 7.45 pH 11/26/2023 5:34 PM CDT STMA Base Excess 2 -2 - 3 mmol/L 11/26/2023 5:34 PM CDT STMA HCO3 26 22 - 26 mmol/L 11/26/2023 5:34 PM CDT STMA Hemoglobin, B 11.0(L) 13.2 - 16.6 g/dL 11/26/2023 5:34 PM CDT STMA O2Hb 96.5 94.0 - 98.0 % 11/26/2023 5:34 PM CDT STMA COHb 2.1 <3.0 % 11/26/2023 5:34 PM CDT STMA MetHb <1.0 <1.5 % 11/26/2023 5:34 PM CDT STMA CtO2 14.9(L) 18.0 - 21.0 vol % 11/26/2023 5:34 PM CDT STMA Arterial Sample Site R-Radial 11/26/2023 5:32 PM CDT STMA Comment:Maximilian's test not don e. Blood (Blood, Arterial) 11/26/2023 5:28 PM CDT 11/26/2023 5:32 PM CDT Barbara Pelayo APRN.N.P., D.N.P. LAB BLOOD NON ADD-ON [facility] [address] [place] [address], [facility] [address] [place] [address] * pH (11/26/2023 11:21 AM CDT) Only the most recent of3 resultswithin the time period is included. pH 7.45 7.35 - 7.45 pH 11/26/2023 11:27 AM CDT STMA Blood 11/26/2023 11:2 1 AM CDT 11/26/2023 11:26 AM CDT Barbara Pelayo APRN.N.Tian, D.N.P. LAB HISTORICAL ORDERS [facility] [address] [place], [place] [id number] [place] [address] 200 [place] [address] * Thromboelastograph, Kaolin, Blood (11/26/2023 7:45 AM CDT) Only the most recent of4 resultswithin the time period is included. R, Kaolin, TEG 6.5 4.0 - 9.0 min 11/26/2023 9:19 AM CDT STMA K, Kaolin, TEG 1.7 1.0 - 1.8 min 11/26/2023 9:19 AM CDT STMA Angle, Kaolin, TEG 66.8 64.0 - 78.1 degrees 11/26/2023 9:19 AM CDT STMA MA, Kaolin, TEG 65.1 57.1 - 72.6 mm 11/26/2023 9:19 AM CDT STMA Ly30, Kaolin, TEG 0.8 0.0 - 4.8 % 11/26/2023 9:19 AM CDT STMA Blood (Blood, Venous) 11/26/2023 7:45 AM CDT 11/26/2023 7:50 AM CDT Charlotte A Sushma SSAS DEVELOPER, C.N.P., D.N.P. LAB BLOOD NON ADD-ON [facility] [address] [place] [address], [facility] [address] [place] [address] * Transfuse Fresh Frozen Plasma :Bleeding with altered coagulation; 180 mL/hr (11/26/2023 7:09 AM CDT) Only the most recent of2 resultswithin the time period is included. Carlyn Mccullough BLOOD TRANSFUSION O RDERABLES * CT Abdomen Pelvis with IV Contrast (11/26/2023 6:14 AM CDT) Only the most recent of2 resultswithin the time period is included. Anatomical Region Laterality Modality Abdomen, Pelvis, Abdominal R ST LOS, Abdominal ARZ LOS, Abdominal FLA LOS N/A Computed Tomograp hy, Computed Tomography 11/26/2023 6:11 AM CDT Impressions 11/26/2023 8:22 AM CDT 1. ??Focal hyperdensity along the posterior left pelvic sidewall likely represents beam hardening artifact rather than active hemorrhage. If there is clinical concern for active hemorrhage, consider short-term follow-up CT. 2. ??Plate and screw fixation across the complex left pelvic fractures with significantly improved alignment. 3. ??Significantly decreased small amount of scattered blood products in the peritoneum and retroperitoneum. Narrative 11/26/2023 8:22 AM CDT EXAM: ??CT ABDOMEN PELVIS WITH IV CONTRAST COMPARISON: ??CT abdomen/pelvis 11/23/2023 FINDINGS: ??Interval plate and screw fixation across the complex left pelvic fractures involving the iliac wing, pubic rami and acetabulum. Significantly improved alignment with persistent displacement of the superior and inferior pubic rami fractures. Hardware intact. Significant decrease in the small amount of scattered blood products in the peritoneum and retroperitoneum. Decreased size of the left gluteal hematoma. Focal hyperdensity along the posterior left pelvic sidewall (series 4, image 160), which does not persist on the metal artifact reduction images. This likely represents beam hardening artifact rather than active extravasation. Unchanged small hepatic cyst/hemangioma. Calcified splenic granulomas. Bilateral renal cysts. Rosado catheter in the bladder with marked bladder wall thickening. Small bilateral pleural effusions with compressive atelectasis. Minimally displaced left mid lateral rib fracture (series 4 image 40). Procedure Note Bold, Chavez Bob M.D. - 11/26/2023 EXAM: CT ABDOMEN PELVIS WITH IV CONTRAST COMPARISON: CT abdomen/pelvis 11/23/2023 FINDINGS: Interval plate and screw fixation across the complex leftpelvic fractures involving the iliac wing, pubic rami and acetabulum.Significantly improved alignment with persistent displacement of thesuperior and inferior pubic rami fractures. Hardware intact. Significant decrease in the small amount of scatteredblood products in the peritoneum and retroperitoneum. Decreased size ofthe left gluteal hematoma. Focal hyperdensity along the posterior leftpelvic sidewall (series 4, image 160), which does not persist on the metal artifact reduction images. This likelyrepresents beam hardening artifact rather than active extravasation. Unchanged small hepatic cyst/hemangioma. Calcified splenic granulomas.Bilateral renal cysts. Rosado catheter in the bladder with marked bladderwall thickening. Small bilateral pleural effusions with compressive atelectasis. Minimally displaced left mid lateral rib fracture (series 4 image 40). IMPRESSION: 1. Focal hyperdensity along the posterior left pelvic sidewall likelyrepresents beam hardening artifact rather than active hemorrhage. If thereis clinical concern for active hemorrhage, consider short-term follow-upCT. 2. Plate and screw fixation across the complex left pelvic fractures withsignificantly improved alignment. 3. Significantly decreased small amount of scattered blood products inthe peritoneum and retroperitoneum. Shay Lee M.D. IMG CT PROCEDURES * Transfuse Platelets :Other (Specify):; MTP; 180 mL/hr; No Special Requirements (11/26/2023 2:01 AM CDT) Only the most recent of2 resultswithin the time period is included. Carlyn HaroSTarik BLOOD TRANSFUSION O RDERABLES * Transfuse Emergency Released Red Blood Cells (Uncrossmatched) (11/25/2023 10:13 PM CDT) Only the most recent of4 resultswithin the time period is included. Shay Lee M.D. BLOOD TRANSFUSION OR DERABLES * Lactate (11/25/2023 9:05 PM CDT) Only the most recent of4 resultswithin the time period is included. Lactate, P 1.6 0.5 - 2.2 mmol/L 11/25/2023 9:23 PM CDT [facility] Blood (Blood, Venous) 11/25/2023 9:05 PM CDT 11/25/2023 9:11 PM CDT Shay Lee M.D. LAB BLOOD NON ADD-ON Performing Organization Address [facility] Co de Phone Number [facility] [address] [place] [address], [facility] [address] [place] [address] * FL Fluoro Less Than 1 Hour (11/25/2023 2:52 PM CDT) Narrative 152 HOS LOS RST - 11/25/2023 2:54 PM CDT This exam does not require a radiologist review or interpretation. Please refer to the patient's medical record on this date for clinical details. Francisco Staley M.D. IMG FLUOROSCOPY PROCEDURES Performing Organization Address [facility] Co de Phone Number 152 HOS LOS RST * DX Pelvis 3+ Views (11/25/2023 2:37 PM CDT) Only the most recent of2 resultswithin the time period is included. Anatomical Region Laterality Modality Pelvis, Musculoskeletal RST LOS, Musculoskeletal ARZ LOS, Muskuloskeletal FLA LOS N/A Digital Radiography Impressions 11/25/2023 2:40 PM CDT Negative for postoperative purposes. Surgical hardware is intact without radiographic evidence of failure. Pelvic surgical drain. Narrative 11/25/2023 2:40 PM CDT EXAM: ??DX PELVIS 3+ VIEWS Procedure Note Chavez Fisher M.D. - 11/25/2023 EXAM: DX PELVIS 3+ VIEWS IMPRESSION: Negative for postoperative purposes. Surgical hardware is intact withoutradiographic evidence of failure. Pelvic surgical drain. Francisco Staley M.D. IMG DIAGNOSTIC IMAGING PROCEDURES * Transfuse autologous RBC (Cell Salvage) : (11/25/2023 1:41 PM CDT) Only the most recent of2 resultswithin the time period is included. Ale Tatum M.D. BLOOD TRANSFUSION OR DERABLES * Sodium, B (11/25/2023 1:31 PM CDT) Only the most recent of3 resultswithin the time period is included. Sodium, B 141 135 - 145 mmol/L 11/25/2023 1:33 PM CDT [facility] Blood (Blood, Arterial Line) 11/25/2023 1:31 PM CDT 11/25/2023 1:31 PM CDT Ale Tatum M.D. LAB BLOOD NON ADD-ON Performing Organization Address City/[facility]/ZIP Co de Phone Number [facility] [address] [place] [address] * Potassium, Blood (11/25/2023 1:31 PM CDT) Only the most recent of3 resultswithin the time period is included. Potassium, B 3.7 3.6 - 5.2 mmol/L 11/25/2023 1:34 PM CDT [facility] Blood (Blood, Arterial Line) 11/25/2023 1:31 PM CDT 11/25/2023 1:31 PM CDT Ale Tatum M.D. LAB BLOOD NON ADD-ON Performing Organization Address City/[facility]/ZIP Co de Phone Number [facility] [address] [place] [address], [facility] [address] [place] [id number] * (ABNORMAL) Glucose, Whole Blood (11/25/2023 1:31 PM CDT) Only the most recent of3 resultswithin the time period is included. Glucose 165(H) 70 - 140 mg/dL 11/25/2023 1:33 PM CDT [facility] Blood (Blood, Arterial Line) 11/25/2023 1:31 PM CDT 11/25/2023 1:31 PM CDT Ale Tatum M.D. LAB BLOOD ADD-ON Performing Organization Address [facility]/[place] [address] * (ABNORMAL) Hemoglobin, Whole Blood (11/25/2023 12:13 PM CDT) Pathologist [facility] Hemoglobin, B 8.1(L) 13.2 - 16.6 g/dL 11/25/2023 12:14 PM CDT [facility] Blood (Blood, Arterial Line) 11/25/2023 12:13 PM CDT 11/25/2023 12:13 PM CDT Gogo Chavez APRN, CRNA LAB BLOOD NON A DD-ON Performing Organization Address [facility] Co de Phone Number [facility] [address] [place] [address] * Transfuse Red Blood Cells : (11/25/2023 11:50 AM CDT) Only the most recent of3 resultswithin the time period is included. Ale Tatum M.D. BLOOD TRANSFUSION OR DERABLES * Lactate, B - Intra-op (11/25/2023 11:09 AM CDT) Lactate, B 1.1 0.5 - 2.2 mmol/L 11/25/2023 11:11 AM CDT [facility] Blood (Blood, Venous) 11/25/2023 11:09 AM CDT 11/25/2023 11:09 AM CDT Ale Tatum M.D. LAB BLOOD NON ADD-ON [facility] [address] [place] [address], [facility] [address] [place] [address] * MD ARTL CATH/CNULA MONITOR PERC, LDA ANE ARTERIAL LINE INSERTION (11/25/2023 8:12 AM CDT) Narrative Ale Tatum M.D. - 11/25/2023 8:12 AM CDT Dillon Sanchez M.D. ? 11/25/2023 ??8:13 AM Invasive Catheter Date/Time: 11/25/2023 8:12 AM Performed by: Dillon Sanchez M.D. Authorized by: Ale Tatum M.D. ?? Location: OR PROCEDURE DETAILS: Line type: arterial ?? Laterality: right Location: radial Location details: new site ? Age group: adult Catheter diameter: 20 Ga Technique: ultrasound guided ?? Ultrasound guidance: image not saved Monitored: yes ?? Number of attempts: 1 UNIVERSAL PROTOCOL All relevant documentation and testing were reviewed and available. All required blood products, implants, devices and or special equipment were made available as applicable. Pre-procedure verification was conducted and the correct site was marked if required. A fire risk assessment was done as applicable. The procedural time-out to verify correct patient, correct side/site, and procedure was conducted prior to performing the procedure and confirmed in a procedural pause. PRE-PROCEDURE DETAILS: Appropriate hand hygiene, gown, cap, mask, protective eyewear, sterile gloves, skin preparation, sterile drape, and strict aseptic technique were utilized as applicable for the procedure.: yes ?? Skin preparation: chlorhexidine ?? SEDATION / ANESTHESIA Anesthesia method: anesthesia POST-PROCEDURE DETAILS: Procedure completed successfully: yes ?? Line secured: secured with sutureless device Chlorhexidine disc around insertion site and under catheter with slight turn: yes ?? Notable Events - arterial: none ATTESTATION STATEMENT A resident or fellow participated in the procedure, and the review consultant was present for the entire procedure. Ale Tatum M.D. PROCEDURE/MINOR SURG ICAL ORDERABLES * LDA ANE ENDOTRACHEAL AIRWAY (11/25/2023 8:01 AM CDT) Narrative Ale Tatum M.D. - 11/25/2023 8:01 AM CDT Dillon Sanchez M.D. ? 11/25/2023 ??8:51 AM Airway Date/Time: 11/25/2023 8:01 AM Performed by: Paolo Beth M.D. Authorized by: Ale Tatum M.D. ?? Patient location during procedure: OR / Procedure Area PROCEDURE DETAILS: Mask difficulty assessment: oral/nasal airway needed Final airway type: video laryngoscope Laryngeal Manipulation: no ?? Final best view of glottic structures - Cormack/Lehane Score: grade 2A ETT location: oral VL device: glide scope Kelso scope blade size: 3 Tube size: 7.5 ETT distance at teeth/gum: 25 Oral tube type: standard ETT Cuffed: yes Airway confirmation: bilateral breath sounds, positive ETCO2 and bilateral chest rise Other previous techniques attempted: none PRE PROCEDURE DETAILS: Pre evaluation for airway management: procedure Urgency: elective Preoxygenation: bag valve mask SEDATION / ANESTHESIA Anesthesia method: anesthesia POST PROCEDURE DETAILS: ? Procedure outcome: successful ?? Notable Events: no complications Ale Tatum M.D. ANESTHESIA ORDERABLE S * Patient Status (11/25/2023 7:08 AM CDT) Only the most recent of3 resultswithin the time period is included. O2 Flow 3.0 L/min 11/25/2023 7:11 AM CDT [facility] Device NC 11/25/2023 7:11 AM CDT [facility] Spont. breaths/min 18 11/25/2023 7:11 AM CDT [facility] Blood 11/25/2023 7:08 AM CDT 11/25/2023 7:11 AM CDT Hilda Carranza APRN, C.N.P., M.S.N. LA B BLOOD NON ADD-ON [facility] [address] [place] [address], [facility] STMA [facility] [address] [place] [address] * (ABNORMAL) Blood Gas with Coox, Venous (11/25/2023 7:08 AM CDT) Only the most recent of3 resultswithin the time period is included. pO2, Venous, B 36 Not applicable mm Hg 11/25/2023 7:14 AM CDT [facility] pCO2, Venous, B 46 41 - 51 mm Hg 11/25/2023 7:14 AM CDT [facility] pH, Venous, B 7.37 7.32 - 7.43 pH 024 7:14 AM CDT [facility] Base Excess, Venous, B 1 Not applicable mmol/L 11/25/2023 7:14 AM CDT [facility] HCO3, Venous, B 27 Not applicable mmol/L 11/25/2023 7:14 AM CDT [facility] Hemoglobin, Venous, B 8.2(L) 13.2 - 16.6 g/dL 11/25/2023 7:14 AM CDT [facility] O2Hb, Venous, B 65.2 Not applicable % 11/25/2023 7:14 AM CDT [facility] COHb, Venous, B 1.9 <3.0 % 11/25/2023 7:14 AM CDT [facility] MetHb, Venous, B <1.0 <1.5 % 11/25/2023 7:14 AM CDT [facility] CtO2, Venous, B 7.5 Not Applicable vol % 11/25/2023 7:14 AM CDT [facility] Sample Site, Venous, B Venipunct 11/25/2023 7:11 AM CDT [facility] Blood (Blood, Venous) 11/25/2023 7:08 AM CDT 11/25/2023 7:11 AM CDT Hilda Carranza APRN, C.N.P., M.S.N. LA B BLOOD NON ADD-ON [facility] [address] [place] [address], [facility] STMA [facility] [address] [place] [address] * (ABNORMAL) Dipstick, Urine (11/24/2023 9:58 AM CDT) Hemoglobin, QL Large(A) Negative 11/24/2023 11:52 AM CDT DTL Leukocyte Esterase, U Small(A) Negative 11/24/2023 11:52 AM CDT DTL Nitrite, U Negative Negative 11/24/2023 11:52 AM CDT DTL Ketones, U 5(A) Negative mg/dL 11/24/2023 11:52 AM CDT DTL Glucose, U Negative Negative mg/dL 11/24/2023 11:52 AM CDT DTL Urine 11/24/2023 9:58 AM CDT 11/24/2023 10:39 AM CDT Janina Hansen APRN, C.N.P., D.N.P. LAB URINE ORDERABLES [facility] [address] [place] [address], [facility] DTL [facility] [address] [place] [address] * (ABNORMAL) Microscopic Manual (11/24/2023 9:58 AM CDT) Microscopy Abnormal 11/24/2023 12:32 PM CDT DTL RBC 51-100(A) <3 /hpf 11/24/2023 12:32 PM CDT DTL Dysmorphic RBC <25 <25 % 11/24/2023 12:32 PM CDT DTL WBC 1-3 /hpf 11/24/2023 12:32 PM CDT DTL Comment: ----REFERENCE VALUE---- <4 ??(Males) <11 (Females) Bacteria Present(A) 11/24/2023 12:32 PM CDT DTL Crystals Uric Acid crystals present 11/24/2023 12:32 PM CDT DTL Urine 11/24/2023 9:58 AM CDT 11/24/2023 11:52 AM CDT Janina Hansen APRN, C.N.P., D.N.P. LAB URINE ORDERABLES [facility] [address] [place] [address], [facility] [address] [place] [address] * pH, Urine (11/24/2023 9:58 AM CDT) pH, U 5.1 4.5 - 8.0 11/24/2023 11: 48 AM CDT DTL Urine 11/24/2023 9:58 AM CDT 11/24/2023 10:39 AM CDT Tracy Montes APRNN.Tian, D.N.P. LAB URINE ORDERABLES Performing Organization Address City/[facility]/ZIP Co de Phone Number [facility] [address] [place] [address] * Osmolality, Urine (11/24/2023 9:58 AM CDT) Osmolality, U 901 150 - 1150 mOsm/kg 11/24/2023 11:48 AM CDT DT Urine 11/24/2023 9:58 AM CDT 11/24/2023 10:39 AM CDT Tracy Montes APRNN.Tian, D.N.P. LAB URINE ORDERABLES Performing Organization Address City/[facility]/ZIP Co de Phone Number [facility] [address] [place] [address] * (ABNORMAL) Urinalysis, with Microscopic: Urine, Catheter (11/24/2023 9:58 AM CDT) Source Urine, Urine, Catheter 11/24/2023 10:39 AM CDT DTL Color, U Yellow 11/24/2023 10:39 AM CDT DTL Clarity, U Clear 11/24/2023 10:39 AM CDT DTL Protein, U 51(H) <26 mg/dL 11/24/2023 11:30 AM CDT DTL Protein/Osmola lity 0.57(H) <0.42 ratio 11/24/2023 11:48 AM CDT DTL Predicted 24 HR Protein, U 547(H) <229 mg/24 h 11/24/2023 11:48 AM CDT DTL Predicted Range 174-1725 mg/24 h 11/24/2023 11:48 AM CDT DTL Urine (Urine, Catheter) 11/24/2023 9:58 AM CDT 11/24/2023 10:39 AM CDT Janina Hansen APRN, C.N.P., D.N.P. LAB URINE ORDERABLES [facility] [address] [place] [address], [facility] [address] [place] [address] * Drug Screen Urine (11/24/2023 7:01 AM CDT) Ethanol, Screen U Negative NEGATIVE 11/24/2023 8:12 AM CDT DTL Amphetamines, U Negative NEGATIVE 11/24/2023 8:12 AM CDT DTL Barbiturates, Screen, U Negative NEGATIVE 11/24/2023 8:12 AM CDT DTL Benzodiazepine s, Screen, U Negative NEGATIVE 11/24/2023 8:12 AM CDT DTL Cocaine, Screen, U Negative NEGATIVE 11/24/2023 8:12 AM CDT DTL Opiates, Screen, U Negative NEGATIVE 11/24/2023 8:12 AM CDT DTL Phencyclidine, Screen, U Negative NEGATIVE 11/24/2023 8:12 AM CDT DTL Tetrahydrocann abinol, U Negative NEGATIVE 11/24/2023 8:12 AM CDT DTL Urine (Urine, Catheter) 11/24/2023 7:01 AM CDT 11/24/2023 7:27 AM CDT Tracy Yancey APRNNKerrie, M.S.N. LA B URINE ORDERABLES [facility] [address] [place] [address], [facility] DTL [facility] [address] [place] [address] * DX Femur Left 1 View (11/24/2023 5:27 AM CDT) Anatomical Region Laterality Modality Lower Extremity, Femur, Musc uloskeletal RST LOS, Musculoskeletal ARZ LOS, Muskuloskeletal FLA LOS Left Digit al Radiography Impressions 11/24/2023 12:01 PM CDT Single view lateral radiograph of the distal left femur for the assessment of traction device, which is overlying the distal left femur. Narrative 11/24/2023 12:01 PM CDT EXAM: ??DX FEMUR LEFT 1 VIEW COMPARISON: Left femur radiograph 11/23/2023 Procedure Note Bakari Ayala M.D., Ph.D. - 11/24/2023 EXAM: DX FEMUR LEFT 1 VIEW COMPARISON: Left femur radiograph 11/23/2023 IMPRESSION: Single view lateral radiograph of the distal left femur for the assessmentof traction device, which is overlying the distal left femur. Mickey RANDHAWA DIAGNOSTIC IMAGI NG PROCEDURES * (ABNORMAL) Troponin T, 6h, 5th Gen (11/23/2023 10:52 PM CDT) Troponin T, 6 hr, 5th gen 29(H) <=15 ng/L 11/23/2023 11:16 PM CDT [facility] 6H Delta 7 ng/L 11/23/2023 11:16 PM CDT [facility] 6H Delta Interp Not Changing 11/23/2023 11:16 PM CDT [facility] Blood 11/23/2023 10:5 2 PM CDT 11/23/2023 10:57 PM CDT Bereket Snider M.D. LAB BLOOD TROPONIN [facility] [address] [place] [address], [facility] [address] [place] [address] * DX Femur Left 2 Views (11/23/2023 10:45 PM CDT) Only the most recent of2 resultswithin the time period is included. Anatomical Region Laterality Modality Lower Extremity, Femur, Musc uloskeletal RST LOS, Musculoskeletal ARZ LOS, Muskuloskeletal FLA LOS Left Digit al Radiography Impressions 11/24/2023 12:19 PM CDT Interval placement of a left femoral traction device. Redemonstrated multiple complex pelvic fractures including a comminuted fracture of the left superior and inferior pubic rami, acetabulum, and iliac wing. Fractures extend to the left SI joint and are better delineated on CT abdomen and pelvis from earlier today. Rosado catheter. Narrative 11/24/2023 12:19 PM CDT EXAM: ??DX PELVIS 1-2 VIEWS, DX FEMUR LEFT 2 VIEWS Procedure Note Angel Mar M.D. - 11/24/2023 EXAM: DX PELVIS 1-2 VIEWS, DX FEMUR LEFT 2 VIEWS IMPRESSION: Interval placement of a left femoral traction device. Redemonstratedmultiple complex pelvic fractures including a comminuted fracture of theleft superior and inferior pubic rami, acetabulum, and iliac wing.Fractures extend to the left SI joint and are better delineated on CT abdomen and pelvis from earliertoday. Rosado catheter. Mickey Benton M.D. IMG DIAGNOSTIC IMAGI NG PROCEDURES * ED fracture care (11/23/2023 8:58 PM CDT) Narrative Mickey Benton M.D. - 11/23/2023 8:58 PM CDT Mickey Benton M.D. ? 11/24/2023 ??4:01 AM ED fracture care Performed by: Mickey Benton M.D. Authorized by: Mickey Benton M.D. ?? Care team members present 1. Toni Vazquez M.D. PROCEDURE DETAILS ?? Manipulation performed: yes ?? Skin traction used: no ?? Skeletal traction with pin placement used: yes ?? CONSENT Consent obtained: verbal Consent given by: patient The benefits, risks and alternatives to the procedure and the potential need for sedation or anesthesia as well as the names, roles, and responsibilities of healthcare team members performing significant interventional tasks were discussed with the patient and/or decision maker. UNIVERSAL PROTOCOL All relevant documentation and testing were reviewed and available. All required blood products, implants, devices and or special equipment were made available as applicable. Pre-procedure verification was conducted and the correct site was marked if required. A fire risk assessment was done as applicable. The procedural time-out to verify correct patient, correct side/site, and procedure was conducted prior to performing the procedure and confirmed in a procedural pause. PRE-PROCEDURE DETAILS ?? Indications: fracture ?? Injury location: ??Hip Hip injury location: ??Left hip Circulation distal to injury: capillary refill < 2 sec, warm, pink and palpable pulse ?? Movement distal to injury: normal ?? Sensation distal to injury: normal ?? POST-PROCEDURE ASSESSMENT ?? Procedure completed successfully: yes ?? X-ray confirmed reduction: yes ?? Circulation distal to injury: capillary refill< 2 sec, warm, pink and palpable pulse ?? Movement distal to injury: normal ?? Sensation distal to injury: normal ?? Complications: no immediate complications ?? Mickey Benton M.D. PROCEDURE/MINOR SURG ICAL ORDERABLES * Hand, Left-Nursing Image Exam (11/23/2023 8:41 PM CDT) Only the most recent of2 resultswithin the time period is included. 11/23/2023 8:39 PM CDT Narrative [facility] - 11/23/2023 8:41 PM CDT This order has been created and auto-finalized to support the import of images acquired without order. The clinical documentation to support these images can be found on the encounter that produced images. Provider Not In System IMG NON RAD IMAGI NG PROCEDURES [facility] NA * (ABNORMAL) Prothrombin Time (PT) (11/23/2023 4:51 PM CDT) Only the most recent of2 resultswithin the time period is included. Prothrombin Time, P 12.6(H) 9.4 - 12.5 sec 11/23/2023 5:24 PM CDT [facility] INR 1.1 0.9 - 1.1 11/23/2023 5:24 PM CDT [facility] Comment: ----ADDITIONAL INFORMATION---- Standard intensity warfarin therapeutic range: 2.0 to 3.0 ?? High intensity warfarin therapeutic range: 2.5 to 3.5 Blood (Blood, Venous) 11/23/2023 4:51 PM CDT 11/23/2023 5:01 PM CDT Sheldon Choi P.A.-C. LAB BLOOD A DD-ON Performing Organization Address [facility] Co de Phone Number [facility] [address] STMA [facility] [address] [place] [address] * Hemoglobin A1c (11/23/2023 4:51 PM CDT) Hemoglobin A1c, B 5.4 4.0 - 5.6 % 11/23/2023 5:42 PM CDT DTL Blood (Blood, Venous) 11/23/2023 4:51 PM CDT 11/23/2023 5:19 PM CDT Sheldon Choi P.A.-C. LAB BLOOD A DD-ON Performing Organization Address City/[facility]/ZIP Co de Phone Number [facility] [address] DTL [facility] [address] [place] [address] * Critical Care (11/23/2023 4:42 PM CDT) Narrative Sadosty, Carol T, M.D. - 11/23/2023 4:42 PM CDT Carol Miller M.D. ? 11/23/2023 ??4:42 PM Critical Care Performed by: Carol Miller M.D. Authorized by: Carol Miller M.D. ?? Critical care provider statement: Critical care total time (minutes): 45 Critical care time was exclusive of: separately billable procedures and treating other patients and teaching time CPR was performed on this patient: no ?? Critical care was necessary to treat or prevent imminent or life-threatening deterioration of the following conditions: shock trauma GRIP failure or compromise hemorrhage Critical care was time spent personally by me on the following activities: development of treatment plan with patient or surrogate, discussions with consultants, evaluation of patient's response to treatment, examination of patient, obtaining history from patient or surrogate, ordering and performing treatments and interventions, ordering and review of laboratory studies, ordering and review of radiographic studies, re-evaluation of patient's condition and review of old charts I assumed direction of critical care for this patient from another provider in my specialty: no ?? Comments: Discussion with orthopedic surgery Discussion with Neurosurgery Discussion with Trauma surgery Discussion with Interventional Radiology Disposition decision Carol Miller M.D. PROCEDURE/MINOR ROB GICAL ORDERABLES * CT Retrospective 3D Post Processing (11/23/2023 4:37 PM CDT) Anatomical Region Laterality Modality Abdomen, Pelvis, Musculoskel etal RST LOS, Abdominal ARZ LOS, Musculoskeletal ARZ LOS, Neuroradiology ARZ LOS, Thoracic ARZ LOS, Vascular Interventional ARZ LOS, Abdominal FLA LOS, Thoracic FLA LOS, Neuroradiology FLA LOS, Muskuloskeletal FLA LOS, Thoracic RST LOS, Cardiovascular RST LOS, Abdominal RST LOS, Neuroradiology RST LOS Other Impressions 11/24/2023 9:09 AM CDT 3D volume rendering images were created on an independent workstation as ordered by the treating provider and reviewed by the radiologist for surgical planning purposes, and reside in the CT ABDOMEN PELVIS WITH IV contrast folder in QREADS dated 11/23/2023 Narrative 11/24/2023 9:09 AM CDT EXAM: CT RETROSPECTIVE 3D POST PROCESSING 3D images were created on an independent workstation ??with or without AI assistance as ordered by the treating provider and reviewed by the radiologist to assist in treatment planning. Toni RANDHAWA CT PROCEDURES * CT Lumbar Spine by Reconstruction (11/23/2023 1:44 PM CDT) Anatomical Region Laterality Modality Lumbar Spine, Neuroradiology RST LOS, Neuroradiology ARZ LOS, Neuroradiology FLA LOS N/A Computed Tomography, Compute d Tomography Impressions 11/23/2023 1:54 PM CDT No acute fracture identified within the thoracic or lumbar spine. Narrative 11/23/2023 1:54 PM CDT EXAM: CT THORACIC SPINE BY RECONSTRUCTION, CT LUMBAR SPINE BY RECONSTRUCTION COMPARISON: None. FINDINGS: No fracture, traumatic malalignment, or soft tissue injury involving the thoracic or lumbar spine. No fracture involving the sacrum or coccyx. Advanced spondylotic change at L4-5 where there is near complete loss of intervertebral height. Otherwise relatively mild multilevel spondylotic changes. Multilevel bridging anterior osteophytes throughout the thoracolumbar spine. No significant osseous spinal canal or neural foraminal narrowing. Partially visualized complex pelvic fractures. Exam was performed with a CT of the chest, abdomen, and pelvis which will be dictated separately. Procedure Note Chavez Cordova M.D. - 11/23/2023 EXAM: CT THORACIC SPINE BY RECONSTRUCTION, CT LUMBAR SPINE BYRECONSTRUCTION COMPARISON: None. FINDINGS: No fracture, traumatic malalignment, or soft tissue injuryinvolving the thoracic or lumbar spine. No fracture involving the sacrumor coccyx. Advanced spondylotic change at L4-5 where there is nearcomplete loss of intervertebral height. Otherwise relatively mild multilevel spondylotic changes. Multilevelbridging anterior osteophytes throughout the thoracolumbar spine. Nosignificant osseous spinal canal or neural foraminal narrowing. Partially visualized complex pelvic fractures. Exam was performed with aCT of the chest, abdomen, and pelvis which will be dictated separately. IMPRESSION: No acute fracture identified within the thoracic or lumbar spine. Bereket HUBERG CT PROCEDURES * CT Thoracic Spine by Reconstruction (11/23/2023 1:44 PM CDT) Anatomical Region Laterality Modality Thoracic Spine, Neuroradiolo gy RST [facility], Neuroradiology ARZ [facility], Neuroradiology FLA LOS N/A Computed Tomography, Compute d Tomography Impressions 11/23/2023 1:54 PM CDT No acute fracture identified within the thoracic or lumbar spine. Narrative 11/23/2023 1:54 PM CDT EXAM: CT THORACIC SPINE BY RECONSTRUCTION, CT LUMBAR SPINE BY RECONSTRUCTION COMPARISON: None. FINDINGS: No fracture, traumatic malalignment, or soft tissue injury involving the thoracic or lumbar spine. No fracture involving the sacrum or coccyx. Advanced spondylotic change at L4-5 where there is near complete loss of intervertebral height. Otherwise relatively mild multilevel spondylotic changes. Multilevel bridging anterior osteophytes throughout the thoracolumbar spine. No significant osseous spinal canal or neural foraminal narrowing. Partially visualized complex pelvic fractures. Exam was performed with a CT of the chest, abdomen, and pelvis which will be dictated separately. Procedure Note Chavez Cordova M.D. - 11/23/2023 EXAM: CT THORACIC SPINE BY RECONSTRUCTION, CT LUMBAR SPINE BYRECONSTRUCTION COMPARISON: None. FINDINGS: No fracture, traumatic malalignment, or soft tissue injuryinvolving the thoracic or lumbar spine. No fracture involving the sacrumor coccyx. Advanced spondylotic change at L4-5 where there is nearcomplete loss of intervertebral height. Otherwise relatively mild multilevel spondylotic changes. Multilevelbridging anterior osteophytes throughout the thoracolumbar spine. Nosignificant osseous spinal canal or neural foraminal narrowing. Partially visualized complex pelvic fractures. Exam was performed with aCT of the chest, abdomen, and pelvis which will be dictated separately. IMPRESSION: No acute fracture identified within the thoracic or lumbar spine. Bereket Snider M.D. [facility] [place] * CT Cervical Spine without IV Contrast (11/23/2023 1:44 PM CDT) Anatomical Region Laterality Modality Cervical Spine, Neuroradiolo gy [facility], [facility] Neur[facility] FLA LOS N/A Computed Tomography, Compute d Tomography 11/23/2023 1:21 PM CDT Impressions 11/23/2023 1:37 PM CDT No fracture or traumatic findings within the cervical spine. Chronic changes as noted. Narrative 11/23/2023 1:37 PM CDT EXAM: CT CERVICAL SPINE WITHOUT IV CONTRAST COMPARISON: None. FINDINGS: No fracture or traumatic malalignment of the cervical spine. Congenital nonfusion of the posterior arch of C1, a normal variant. Paravertebral soft tissues are normal. Advanced cervical spondylosis which is greatest at C4-C6. Prominent posterior disc osteophyte complexes with calcification of the posterior longitudinal ligament most marked at C5-C6 where there is partial effacement of the ventral thecal sac but no convincing high-grade osseous canal stenosis. Advanced uncovertebral facet arthropathy C3-C6. Degenerative uncovertebral and facet arthropathy contribute to multilevel foraminal narrowing which is moderate-advanced at C3-C6 bilaterally. Calcified atherosclerosis at the carotid bifurcations. Procedure Note Chavez Cordova M.D. - 11/23/2023 EXAM: CT CERVICAL SPINE WITHOUT IV CONTRAST COMPARISON: None. FINDINGS: No fracture or traumatic malalignment of the cervical spine.Congenital nonfusion of the posterior arch of C1, a normal variant.Paravertebral soft tissues are normal. Advanced cervical spondylosis whichis greatest at C4-C6. Prominent posterior disc osteophyte complexes with calcification of the posteriorlongitudinal ligament most marked at C5-C6 where there is partialeffacement of the ventral thecal sac but no convincing high-grade osseouscanal stenosis. Advanced uncovertebral facet arthropathy C3-C6. Degenerative uncovertebral and facet arthropathycontribute to multilevel foraminal narrowing which is moderate-advanced atC3-C6 bilaterally. Calcified atherosclerosis at the carotid bifurcations. IMPRESSION: No fracture or traumatic findings within the cervical spine. Chronicchanges as noted. Bereket Snider M.D. [facility] [place] * CT Chest with IV Contrast (11/23/2023 1:44 PM CDT) Anatomical Region Laterality Modality Chest, Thoracic RST LOS, Tho racic ARZ LOS, Thoracic ARZ LOS, Thoracic FLA LOS N/A Computed Tomography, Compute d Tomography 11/23/2023 1:26 PM CDT Impressions 11/23/2023 2:11 PM CDT 1. Complex left pelvic fractures with associated left retroperitoneal and pelvic hemorrhage. Additional intramuscular hematomas involving the left gluteus and iliopsoas muscles. 2. The left ureter is slightly displaced medially however there is no extravasation of contrast. No solid organ injury in the abdomen or pelvis. No mesenteric hematomas or evidence of bowel injury. 3. Nondisplaced left anterior sixth rib fracture. Otherwise, no acute traumatic findings in the chest. 4. Small incidental pulmonary nodules. Narrative 11/23/2023 2:11 PM CDT EXAM: CT CHEST WITH IV CONTRAST COMPARISON: None available. FINDINGS: CHEST: Nondisplaced left anterior sixth rib fracture (). No mediastinal hematoma or collections. No pleural effusions or pneumothorax. No pericardial effusion. Patent airways. Small calcified mediastinal nodes. Incidental 0.8 cm subpleural nodule in the left lower lobe (5/125) and another rounded perifissural nodule measuring 0.7 cm in the right lower lobe (5/136). There is volume loss in both lower lobes with subsegmental atelectatic changes, more on the right associated with peribronchial thickening. Calcified left anterior upper lobe granuloma. ABDOMEN AND PELVIS: Multiple comminuted fractures of the left anterior and posterior pubic rami, acetabulum, iliac wing extending to involve the left sacroiliac joint. Moderate amount of hemorrhage in the left retroperitoneum and pelvis tracking in the left anterior perivesical space and along the anterior bladder wall. The bladder is slightly displaced to the right. Suspected additional intramuscular hematomas in the left psoas, left iliacus (3/183) and also in the left gluteus minimus and medius, and also posterior to the left ischiopubic ramus (7/132). Subcutaneous contusion and hemorrhage in the left gluteal fat (3/159). The left common iliac and external iliac veins are slightly compressed by the hematoma. Calcified liver and spleen granulomas. No perihepatic or perisplenic hematoma. No pancreatic or adrenal injury identified. Left kidney parapelvic cysts. No perinephric hematoma. The left ureter is slightly displaced medially by the hemorrhage but does not not show any contrast extravasation on the delayed phase images. Markedly trabeculated bladder wall is probably related to outlet obstruction. Slightly enlarged prostate. Small hiatus hernia. No definite evidence of any bowel or mesenteric injury. Please see separate report for spine findings. Procedure Note Santosh Bruno M.B.B.S. - 11/23/2023 EXAM: CT CHEST WITH IV CONTRAST COMPARISON: None available. FINDINGS: CHEST: Nondisplaced left anterior sixth rib fracture (). No mediastinal hematoma or collections. No pleural effusions orpneumothorax. No pericardial effusion. Patent airways. Small calcifiedmediastinal nodes. Incidental 0.8 cm subpleural nodule in the left lowerlobe (5/125) and another rounded perifissural nodule measuring 0.7 cm in the right lower lobe (5/136). There is volumeloss in both lower lobes with subsegmental atelectatic changes, more onthe right associated with peribronchial thickening. Calcified leftanterior upper lobe granuloma. ABDOMEN AND PELVIS: Multiple comminuted fractures of the left anterior and posterior pubicrami, acetabulum, iliac wing extending to involve the left sacroiliacjoint. Moderate amount of hemorrhage in the left retroperitoneum andpelvis tracking in the left anterior perivesical space and along the anterior bladder wall. The bladder isslightly displaced to the right. Suspected additional intramuscularhematomas in the left psoas, left iliacus (3/183) and also in the leftgluteus minimus and medius, and also posterior to the left ischiopubic ramus (7/132). Subcutaneous contusionand hemorrhage in the left gluteal fat (3/159). The left common iliac andexternal iliac veins are slightly compressed by the hematoma. Calcified liver and spleen granulomas. No perihepatic or perisplenichematoma. No pancreatic or adrenal injury identified. Left kidneyparapelvic cysts. No perinephric hematoma. The left ureter is slightlydisplaced medially by the hemorrhage but does not not show any contrast extravasation on the delayed phase images.Markedly trabeculated bladder wall is probably related to outletobstruction. Slightly enlarged prostate. Small hiatus hernia. No definiteevidence of any bowel or mesenteric injury. Please see separate report for spine findings. IMPRESSION: 1. Complex left pelvic fractures with associated left retroperitoneal andpelvic hemorrhage. Additional intramuscular hematomas involving the leftgluteus and iliopsoas muscles. 2. The left ureter is slightly displaced medially however there is noextravasation of contrast. No solid organ injury in the abdomen or pelvis.No mesenteric hematomas or evidence of bowel injury. 3. Nondisplaced left anterior sixth rib fracture. Otherwise, no acutetraumatic findings in the chest. 4. Small incidental pulmonary nodules. Bereket Snider M.D. IMG CT PROCEDURES * Lactate for Sepsis with Reflex, POCT (11/23/2023 1:06 PM CDT) [facility] Lactate, POCT 1.67 0.50 - 2.20 mmol/L 11/23/2023 1:19 PM CDT PCLX Blood (Blood, Venous) 11/23/2023 1:06 PM CDT 11/23/2023 1:06 PM CDT Bereket Snider M.D. LAB POCT ORDERABLES - DEVICE POC [facility] [address] [place] [address], [facility] PCLX [facility] POC [address] [place] [address] * (ABNORMAL) Venous Blood Gas and Electrolytes CG8+, POCT (11/23/2023 1:06 PM CDT) [facility] Sample Site, POCT Venstick 11/23/2023 1:19 PM CDT PCSM Comment: ----ADDITIONAL INFORMATION---- Performed at the Point of Care pH, Venous, POCT, B 7.30(L) 7.32 - 7.43 11/23/2023 1:19 PM CDT PCSM Comment: ----ADDITIONAL INFORMATION---- Performed at the Point of Care pCO2, Venous, POCT, B 45 41 - 51 mm Hg 11/23/2023 1:19 PM CDT PCSM Comment: ----ADDITIONAL INFORMATION---- Performed at the Point of Care pO2, Venous, POCT, B 23 Not Applicable mm Hg 11/23/2023 1:19 PM CDT PCSM Comment: ----ADDITIONAL INFORMATION---- Performed at the Point of Care Base Excess, Venous, POCT, B -5 Not Applicable mmol/L 11/23/2023 1:19 PM CDT PCSM Comment: ----ADDITIONAL INFORMATION---- Performed at the Point of Care HCO3, Venous, POCT, B 22 Not Applicable mmol/L 11/23/2023 1:19 PM CDT PCSM Comment: ----ADDITIONAL INFORMATION---- Performed at the Point of Care Sodium, POCT, B 142 135 - 145 mmol/L 11/23/2023 1:19 PM CDT PCSM Comment: ----ADDITIONAL INFORMATION---- Performed at the Point of Care Potassium, POCT, B 3.5(L) 3.6 - 5.2 mmol/L 11/23/2023 1:19 PM CDT PCSM Comment: ----ADDITIONAL INFORMATION---- Performed at the Point of Care Calcium, Ionized, POCT, B 4.30(L) 4.65 - 5.30 mg/dL 11/23/2023 1:19 PM CDT PCSM Comment: ----ADDITIONAL INFORMATION---- Performed at the Point of Care Glucose, POCT, B 114 70 - 140 mg/dL 11/23/2023 1:19 PM CDT PCSM Comment: ----ADDITIONAL INFORMATION---- Performed at the Point of Care Hematocrit, POCT, B 31.0(L) 38.3 - 48.6 % 11/23/2023 1:19 PM CDT PCSM Comment: ----ADDITIONAL INFORMATION---- Performed at the Point of Care Blood (Blood, Venous) 11/23/2023 1:06 PM CDT 11/23/2023 1:04 PM CDT Bereket Snider M.D. LAB POCT ORDERABLES - DEVICE POC [facility]ST [facility] IN[facility]IENT [facility] [address] [place] [address], [facility] POC [address] [place] [address] * APTT (Activated Partial Thromboplastin Time) (11/23/2023 1:06 PM CDT) [facility] Activated Partial Thrombopl Time, P 30 25 - 37 sec 11/23/2023 2:03 PM CDT STMA Blood (Blood, Venous) 11/23/2023 1:06 PM CDT 11/23/2023 1:18 PM CDT Bereket Snider M.D. LAB BLOOD ADD-ON Performing Organization Address [facility]/ZIP Co de Phone Number [facility] [address] [place] [address], [facility] [address] [place] [address] * Type and Screen (with Reflex Antibody ID) (11/23/2023 1:06 PM CDT) [facility] ABORh AB Pos Not applicable 11/23/2023 1:46 PM CDT STRM Antibody Screen Negative Negative 11/23/2023 1:59 PM CDT STRM Type & Screen Expiration 11/26/2023 23:59 11/23/2023 1:46 PM CDT STRM Testing Location [place] DEFAULT 11/23/2023 1:19 PM CDT STRM Blood (Blood, Venous) 11/23/2023 1:06 PM CDT 11/23/2023 1:19 PM CDT Bereket Snider M.D. LAB BLOOD BANK TEST ORDERABLES Performing Organization Address [facility] Co de Phone Number [facility] [address] [place] [address], [facility] STRM [facility] [address] [place] [address] * Ethanol Level, Serum (11/23/2023 1:05 PM CDT) [facility] Ethanol, S <10 <10 mg/dL 11/23/2023 2:1 4 PM CDT DTL Blood (Blood, Venous) 11/23/2023 1:05 PM CDT 11/23/2023 1:40 PM CDT Bereket Snider M.D. LAB BLOOD NON ADD-ON [facility] [address] [place] [address], [address] [address] * (ABNORMAL) Hepatic Function Panel (11/23/2023 1:05 PM CDT) Bilirubin, Total, S 0.6 0.0 - 1.2 mg/dL 11/23/2023 2:14 PM CDT DTL Bilirubin, Direct, S 0.2 0.0 - 0.3 mg/dL 11/23/2023 2:14 PM CDT DTL Aspartate Aminotransferase (AST), S 22 8 - 48 U/L 11/23/2023 2:14 PM CDT DTL Alanine Aminotransferase (ALT), S 13 7 - 55 U/L 11/23/2023 2:14 PM CDT DTL Alkaline Phosphatase, S 26(L) 40 - 129 U/L 11/23/2023 2:14 PM CDT DTL Albumin, S 2.3(L) 3.5 - 5.0 g/dL 11/23/2023 2:14 PM CDT DTL Protein, Total, S 3.4(L) 6.3 - 7.9 g/dL 11/23/2023 2:14 PM CDT DTL Blood (Blood, Venous) 11/23/2023 1:05 PM CDT 11/23/2023 1:40 PM CDT Bereket Snider M.D. LAB BLOOD ADD-ON [facility] [address] [place] [address], [facility] [address] [place] [address] * (ABNORMAL) S-TSH (Thyroid-Stimulating Hormone - Sensitive) (11/23/2023 1:05 PM CDT) Pathologist [facility] TSH, Sensitive 6.1(H) 0.3 - 4.2 mIU/L 11/23/2023 2:14 PM CDT DTL Blood (Blood, Venous) 11/23/2023 1:05 PM CDT 11/23/2023 1:40 PM CDT Bereket Snider M.D. LAB BLOOD ADD-ON Performing Organization Address City/[facility]/ZIP Co de Phone Number [facility] [address] [place] [address], [facility] [address] [place] [address] * Lipase (11/23/2023 1:05 PM CDT) Pathologist [facility] Lipase, S 19 13 - 60 U/L 11/23/2023 2: 14 PM CDT DTL Blood (Blood, Venous) 11/23/2023 1:05 PM CDT 11/23/2023 1:40 PM CDT Bereket Snider M.D. LAB BLOOD ADD-ON Performing Organization Address [facility] Co de Phone Number [facility] [address] [place] [id number], [facility] [address] [place] [address] from Last 3 Months Advance Directives For more information, please contact: [phone] * Full Code (Latest Code Status on File) Date Activated Date Inactivated Comments 11/23/2023 5:00 PM Question Answer Comments Full Code: Discussed Care Teams Buyer Agent Relationship Specialty Start Date End Date Elsewhere, Pcp PCP - General Internal Medicine 11/23/23
--- OUTSIDE RECORDS SUMMARY | 2023-12-09 15:34 | XMS_ITS | Encounter Summary ---
Author Organization [facility] Address [address] [place] [id number] Care Team Providers Care Geometry Professor Name Role Phone Elsewhere, Pcp Primary Care Provider Unavailabl e Reason for Referral * Outpatient (Routine) - Authorized Specialty Diagnoses / Procedures Referred By Contac t Referred To Contact Diagnoses Fracture Acetabulum Closed Initial Left (HCC) Procedures DX Pelvis 1-2 Views Sera Avila P.A.-C., M.STarik [address] [place] [phone] [facility] Referral ID Status Reason Start Date Expiration Date V isits Requested Visits Authorized [id number] Authorized 12/01/2023 11/30/2024 1 1 * Outpatient (Routine) - Authorized Specialty Diagnoses / Procedures Referred By Contac t Referred To Contact Orthopedic Surgery Sera Avila P.A.-C., M.S. [address] [place] [phone] Naveed Higuera M.D. [address] [place] [phone] Referral ID Status Reason Start Date Expiration Date V isits Requested Visits Authorized [id number] Authorized 12/01/2023 06/01/2025 1 1 Encounter Details Date Type Department Care Team ([facility] st Contact Info) Description 12/01/2023 Orders Only Department of Orthopedic Surgery in [place], [place] [address] [place] [phone] Sera Avila P.A.-C., M.S. [address] [place] [phone] Fracture Acetabulum Closed Initial Left (HCC) (Primary Dx) Social History Tobacco Use Types Packs/Day Years Used Date Smoking Tobacco: Never Assessed Dental Answer Date Recorded Dental: Regular Dentist Unknown 11/23/19 24 Sex and Gender Information Value Date Recorded Sex Assigned at Not on file Gender Identity Not on file Sexual Orientation Not on file documented as of this encounter Plan of Treatment Upcoming Encounters Date Type Department Care Team (Late Contact Info) Description 12/27/2023 1:15 PM CDT Clinical Communication Virtual Review in [place], [place] [address] [place] [phone] 12/28/2023 7:45 AM CDT Appointment Department of Radiology, [facility], in [place], [place] [address] [place] [phone] Sera Avila P.A.-C., M.S. [address] [place] [phone] 12/28/2023 8:15 AM CDT Appointment Department of Radiology, [facility], in [place], [place] [address] [place] [phone] Vanessa Curiel APRN, SEISMIC OBSERVER, D.N.P., M.S.N. [address] [place] [phone] 12/28/2023 2:00 PM CDT Office Visit Department of Neurologic Surgery in [place], [place] [address] [place] [phone] Harmony Lomas APRN, C.N.P., M.S.N. [address] [place] [phone] 01/05/2024 9:45 AM CDT Office Visit Department of Orthopedic Surgery [place], [place] [address] [place] [phone] Rodrigo Leiva M.D. [address] [place] [phone] Scheduled Orders Name Type Priority Associated Diagnoses Orde r Schedule DX Pelvis 1-2 Views Imaging RAD - Routine (most inpatients and all outpatients) Fracture Acetabulum Closed Initial Left (HCC) Expected: 01/05/2024, Expires: 03/02/2025 Scheduled Referrals Name Type Priority Associated Diagnoses Order Schedule Orthopedic Surgery office visit (clinic) Outpatient Referral Routine Expected: 01/05/2024, Expires: 03/02/2025 documented as of this encounter Visit Diagnoses Diagnosis Fracture Acetabulum Closed Initial Left (HCC)- Primary documented in this encounter Care Teams Geometry Professor Relationship Specialty Start Date End Date Elsewhere, Pcp PCP - General Internal Medicine 11/23/23 documented as of this encounter
--- OUTSIDE RECORDS SUMMARY | 2023-12-09 15:34 | XMS_ITS | Referral Summary ---
Author Organization [facility] Address [address] [place] [address] Care Team Providers Care Sheeter Operator Name Role Phone Elsewhere, Pcp Primary Care Provider Unavailabl e Source Comments Patient records contain information from all sites at [facility]. For routine questions regarding patient records, call [phone] during business hours, M-F 8:00 AM - 5:00 PM Central Time. Record requests for emergency care only can be directed to [phone] at any time.[facility] Encounters Date Type Department Care Team Description 12/01/2023 Orders Only Department of Orthopedic Surgery in [address] [phone] Sera Avila P.A.-C., M.S. Fracture Acetabulum Closed Initial Left (HCC) (Primary Dx) 11/25/2023 Clinical Communication RST HIM [address] [place] [phone] Vanessa Curiel APRN, FIRE ALARM TECHNICIAN, D.N.P., M.S.N. 11/25/2023 7:25 AM CDT - 11/25/2023 12:22 PM CDT Surgery [facility]ST ROMB MAIN OR [address] [place] [phone] Naveed Higuera M.D. OPEN REDUCTION INTERNAL FIXATION ACETABULUM. 11/25/2023 7:44 AM CDT Anesthesia Event RST ROMB MAIN OR [address] [place] [phone] Ale Tatum M.D. 11/23/2023 8:45 PM CDT Ancillary Procedure Department of Nursing 11/23/2023 8:40 PM CDT Ancillary Procedure Department of Nursing 11/23/2023 12:47 PM CDT - Present Hospital Encounter [facility], [facility], [facility], Fifth Floor [address] [place] [phone] Carol Miller M.D. Jason Navarrete M.D. Landen [...] F02.80]; Delirium [R41.0] from Last 3 Months Allergies No known active allergies Medications No [...] 11/23/2023 Fracture Acetabulum Closed Initial Left 11/23/19 Immunizations Name Administration Dates Next Due Tdap [...] PM CDT Clinical Communication Virtual Review in [place], [place] 200 [place] [phone] 12/28/2023 7:45 AM CDT Appointment Department of Radiology, [facility], [place], [place] [address] [place] [phone] Sera Avila P.A.-C., M.S. [address] [place] [phone] 12/28/2023 8:15 AM CDT Appointment Department of Radiology, [facility], in [address] [phone] Vanessa Curiel APRN, MYLA, D.N.P., M.S.N. [address] [place] [phone] 12/28/2023 2:00 PM CDT Office Visit Department of Neurologic Surgery in [place], [place] [address] [place] [phone] Harmony Lomas APRN, C.N.P., M.S.N. [address] [place] [phone] 01/05/2024 9:45 AM CDT Office Visit Department of Orthopedic Surgery in [place], [place] [address] [place] [phone] Rodrigo Leiva M.D. [address] [place] [phone] Medical Devices Implanted Type Area Quick Sketch Artist Device Identifier Shelf Expiration Date Model / Serial / Lot Grft Ost Dbm [facility] 5 - [id number] - [id number] Implanted:Qt y: 1 on 11/25/2023 by Naveed Higuera M.D. at [facility] Bone or Tissue Left: Acetabulum Med[employer]onic 05/29/2028 [id number] / [id number] / Clp Apr [facility] Introsalinda Roldan 9.75 - [id number] 3 Implanted:Qt y: 1 on 11/25/2023 by Naveed Higuera M.D. at [facility] Hardware e.g. pins/screws /rods Left: Acetabulum Ethicon [id number] 09/17/2028 [id number] / / [id number] Washr Rnd Ss Elkin Elkin 9x8x3.5 - [id number] Implanted:Qt y: 1 on 11/25/2023 by Naveed Higuera M.D. at [facility] Hardware e.g. pins/screws /rods Left: Acetabulum Tamiko [id number] / / Plt Spctnl Qls 16h Lt - [id number] 3 Implanted:Qt y: 1 on 11/25/2023 by Naveed Higuera M.D. at [facility] Hardware e.g. pins/screws /rods Left: Acetabulum Tamiko [id number] / / Scrw Axs St Fthrd Lck 3.5x38 - [id number] Implanted:Qt y: 1 on 11/25/2023 by Naveed Higuera M.D. at [facility] Hardware e.g. pins/screws /rods Left: Acetabulum Tamiko [id number] / / Scrw Axs St Fthrd Lck 3.5x26 - [id number] Implanted:Qt y: 1 on 11/25/2023 by Naveed Higuera M.D. at [facility] Hardware e.g. pins/screws /rods Left: Acetabulum Tamiko [id number] / / Scrw Axs St Fthrd Lck 3.5x55 - [id number] Implanted:Qt y: 2 on 11/25/2023 by Naveed Higuera M.D. at [facility] Hardware e.g. pins/screws /rods Left: Acetabulum [place] [id number] / / Scrw Axs St Fthrd Lck 3.5x28 - [id number] 3 Implanted:Qt y: 2 on 11/25/2023 by Naveed Higuera M.D. at [facility] Hardware e.g. pins/screws /rods Left: Acetabulum [place] [id number] / / Scrw Axs St Fthrd Lck 3.5x34 - [id number] 3 Implanted:Qt y: 1 on 11/25/2023 by Naveed Higuera M.D. at [facility] Hardware e.g. pins/screws /rods Left: Acetabulum Tamiko [id number] / / Scrw Axs St Fthrd Lck 3.5x90 - [id number] 3 Implanted:Qt y: 1 on 11/25/2023 by Naveed Higuera M.D. at [facility] Hardware e.g. pins/screws /rods Left: Acetabulum Tamiko [id number] / / Scrw Axs St Fthrd Lck 3.5x95 - [id number] 3 Implanted:Qt y: 1 on 11/25/2023 by Naveed Higuera M.D. at [facility] Hardware e.g. pins/screws /rods Left: Acetabulum Tamiko [id number] / / Scrw Axs St Fthrd Lck 3.5x120 - [id number] Implanted:Qt y: 2 on 11/25/2023 by Naveed Higuera M.D. at [facility] Hardware e.g. pins/screws /rods Left: Acetabulum Tamiko [id number] / / Procedures The patient is currently [...] LINE INSERTION Routine 11/25/2023 8:12 AM CDT HI ARTL CATH/CNULA MONITOR PERC Routine 11/25/2023 8:12 AM CDT LDA ANE ENDOTRACHEAL AIRWAY Routine 11/25/2023 8:01 AM CDT OPEN REDUCTION INTERNAL FIXATION ACETABULUM 11/25/2023 7:24 AM CDT Fracture Acetabulum Closed Initial Left (HCC) Special Needs Supine.[place] pelvis set.Shanz pins. PATIENT STATUS Timed 11/25/2023 [...] Mancilla APRN, C.N.P., D.N.P. LAB BLOOD ADD-ON [facility] [place] 200 [place] [address], [facility] 200 [place] [address] * DX Chest Portable 1 View (12/06/2023 [...] 8:57 PM CDT 12/05/2023 9:13 PM CDT Lalita Bacon APRN, C.N.P., D.N.P. LAB B LOOD ADD-ON [facility] [place] 200 [place] [address], [facility] 200 [place] [address] * US Lower Extremity Veins Bilateral (12/05/2023 [...] and management can be found on the [employer] site. Link [email or web address] Procedure Note Barry Bennett M.D., M.S. - [...] management can be found on theAskMayoExpert site. [email or web address] IMPRESSION: Unchanged acute DVT in the left soleal vein and in a small adjacent venousbranch. Barbara Salamanca APRN.N.P., Olivia.N.P. IMG U S PROCEDURES * DX Pelvis [...] failure. No new fractures. Left pelvicsurgical drain.. Barbara Salamanca APRN.N.P., D.N.P. IMG D IAGNOSTIC IMAGING PROCEDURES * [...] - 6.45 x10(9)/L 12/02/2023 10:11 PM CDT [facility] Comment:Rechecked Lymphocytes 0.90(L) 0.95 - 3.07 x10(9)/L [...] APRN, C.N.P., D.N.P. LAB B LOOD ADD-ON [facility] [place] [address] [place] [address], [place] DTL [facility] [address] [place] [address] [facility] [address] [place] [address] * DX Abdomen 1 View (12/02/2023 5:41 [...] Anatomical Region Laterality Modality Head, Neuroradiology RST LOS , Neuroradiology ARZ LOS, Neuroradiology FLA LOS N/A Computed Tomography, Compute d Tomography 12/01/2023 [...] Overnight (11/29/2023 7:52 AM CDT) 11/28/2023 Impressions [facility] EAP - 11/29/2023 1:47 PM CDT Overnight oximetry [...] current supplemental oxygen. Physician: Hema Owens M.D. [id number] Narrative Procedure Note Hema Owens M.D. - [...] thecurrent supplemental oxygen. Physician: Hema Owens M.D. [id number] Josee Rose M.D. SLEEP CENTER ORDERAB LES [facility] EAP * (ABNORMAL) Troponin T, 2 Hour with [...] CDT Barb Davies M.D. LAB BLOOD TROPONIN Performing Organization Address City/[facility]/ZIP Co de Phone Number [facility] [place] [address] [facility] [address] [place] [address] * (ABNORMAL) Troponin T, Baseline with 2 Hour/6 Hour Reflex Biomarker Panel (11/28/2023 9:01 PM CDT) Only the most recent of4 resultswithin the time period is included. Troponin T, Baseline, 5th gen 31(H) <=15 ng/L 11/28/2023 9:26 PM CDT STMA Blood (Blood, Venous) 11/28/2023 9:01 PM CDT 11/28/2023 9:06 PM CDT Barb Davies M.D. LAB BLOOD TROPONIN [facility] [place] [address] [place] [address], [facility] [address] [place] [phone] * Phosphorus Inorganic (11/28/2023 9:01 PM CDT) Only the most recent of6 resultswithin the time period is included. Pathologist [facility] Phosphorus (Inorganic), S 2.5 2.5 - 4.5 mg/dL 11/28/2023 10:02 PM CDT DTL Blood (Blood, Venous) 11/28/2023 9:01 PM CDT 11/28/2023 9:49 PM CDT Barb Davies M.D. LAB BLOOD ADD-ON Performing Organization Address City/[facility]/ZIP Co de Phone Number [facility] [place] 200 [place] [address] * Magnesium (11/28/2023 9:01 PM CDT) Only the most recent of6 resultswithin the time period is included. [facility] Magnesium, S 2.1 1.7 - 2.3 mg/dL 11/28/2023 10:02 PM CDT DT Blood (Blood, Venous) 11/28/2023 9:01 PM CDT 11/28/2023 9:49 PM CDT Barb Davies M.D. LAB BLOOD ADD-ON Performing Organization Address City/[facility]/ZIP Co de Phone Number [facility] [place] [address] [address] * ECG 12 Lead (11/28/2023 8:57 PM CDT) Only the most recent of8 resultswithin the time period is included. [facility] Ventricular Rate ECG/Min 88 BPM MUSE HI Interval 136 ms MUSE QRSD Interval 86 ms MUSE QT Interval 384 ms MUSE QTC Interval 464 ms MUSE P Gladstone 33 degrees MUSE R [place] 7 degrees MUSE T Wave [place] 10 degrees MUSE 11/28/2023 8:57 PM CDT [...] ANTONIETA Hart Barb Davies M.D. ECG ORDERABLES MUSE NA * (ABNORMAL) CK (Creatine Kinase) (11/27/2023 6:13 AM CDT) Only the most recent of5 resultswithin the time period is included. Creatine Kinase (CK), S 2232(H) 39 - 308 U/L 11/27/2023 7:28 AM CDT DTL Blood (Blood, Venous) 11/27/2023 6:13 AM CDT 11/27/2023 6:53 AM CDT Serafin Ford M.D. LAB BLOOD ADD-ON [facility] [address] [place] [address], [facility] [address] [place] [address] * (ABNORMAL) Calcium, Ionized (11/27/2023 6:13 AM CDT) Only the most recent of7 resultswithin the time period is included. Calcium, Ionized, S 4.41(L) 4.57 - 5.43 mg/dL 11/27/2023 7:12 AM CDT DTL Comment: ----ADDITIONAL INFORMATION---- This test has been modified from the mapping supervisor's instructions. Its performance characteristics were determined by [facility] in a manner consistent with CLIA requirements. This test has not been cleared or approved by the U.S. Food and Drug Administration. pH for Ionized Calcium 7.46 7.35 - 7.48 11/27/2023 7:12 AM CDT DTL Blood (Blood, Venous) 11/27/2023 6:13 AM CDT 11/27/2023 6:53 AM CDT Charlotte Ordaz APRN, Barbara.N.P., D.N.P. LAB BLOOD NON ADD-ON Performing Organization Address City/[facility]/ZIP Co de Phone Number [facility] [place] [address] [facility] 200 [place] [address] * Patient Status (11/26/2023 5:28 PM CDT) Only the most recent of5 resultswithin the time period is included. O2 Flow 6.0 L/min 11/26/2023 5:32 PM CDT STMA Device NC 11/26/2023 5:32 PM CDT STMA Spont. breaths/min 18 11/26/2023 5:32 PM CDT STMA Blood 11/26/2023 5:28 PM CDT 11/26/2023 5:32 PM CDT Barbara Pelayo APRN.N.P., D.N.P. LAB BLOOD NON ADD-ON [facility] [place] 200 [place] [address], [facility] STMA [facility] 200 [place] [address] * (ABNORMAL) Blood Gas with Coox, Arterial [...] APRN, C.N.P., D.N.P. LAB BLOOD NON ADD-ON [facility] [place] [address] [place] [address], [facility] [address] [place] [address] * pH (11/26/2023 11:21 AM CDT) Only the most recent of3 resultswithin the time period is included. pH 7.45 7.35 - 7.45 pH 11/26/2023 11:27 AM CDT STMA Blood 11/26/2023 11:2 1 AM CDT 11/26/2023 11:26 AM CDT Charlotte Ordaz APRN, C.N.P., Olivia.N.P. LAB HISTORICAL ORDERS Performing Organization Address City/State/[facility] Co de Phone Number [facility] [place] 200 [place], [place] [phone] [place] [address] 200 [place] [address] * Thromboelastograph, Kaolin, Blood (11/26/2023 7:45 AM [...] AM CDT 11/26/2023 7:50 AM CDT Charlotte Ordaz APRN, C.N.P., D.N.P. LAB BLOOD NON ADD-ON [facility] [place] 200 [place], [place] [phone] [place] [address] 200 [place] [address] * Transfuse Fresh Frozen Plasma :Bleeding with altered coagulation; 180 mL/hr (11/26/2023 7:09 AM CDT) Only the most recent of2 resultswithin the time period is included. Carlyn K Rob M.B.B.S. BLOOD TRANSFUSION O RDERABLES * CT Abdomen [...] fracture (series 4 image 40). Procedure Note Devora, Chavez Bob M.D. - 11/26/2023 EXAM: CT [...] Carlyn Mccullough BLOOD TRANSFUSION O RDERABLES * Transfuse Emergency [...] Shay Lee M.D. LAB BLOOD NON ADD-ON [facility] [place] [address] [place] [address], [facility] [address] [place] [address] * FL Fluoro Less Than 1 Hour (11/25/2023 2:52 PM CDT) Narrative 152 HOS LOS RST - 11/25/2023 2:54 PM CDT This exam does not require a radiologist review or interpretation. Please refer to the patient's medical record on this date for clinical details. Francisco Staley M.D. IMG FLUOROSCOPY PROCEDURES Performing Organization Address City/[facility]/ZIP Co de Phone Number 152 HOS LOS [...] LAB BLOOD NON ADD-ON Performing Organization Address City/[facility]/ZIP Co de Phone Number [facility] [place] 200 [place] [address] * Potassium, Blood (11/25/2023 1:31 PM CDT) Only the most recent of3 resultswithin the time period is included. Potassium, B 3.7 3.6 - 5.2 mmol/L 11/25/2023 1:34 PM CDT STMA Blood (Blood, Arterial Line) 11/25/2023 1:31 PM CDT 11/25/2023 1:31 PM CDT Ale Tatum M.D. LAB BLOOD NON ADD-ON Performing Organization Address City/[facility]/ZIP Co de Phone Number [facility] [place] 200 [place] [address], [facility] 200 [place] [address] * (ABNORMAL) Glucose, Whole Blood (11/25/2023 1:31 PM CDT) Only the most recent of3 resultswithin the time period is included. Glucose 165(H) 70 - 140 mg/dL 11/25/2023 1:33 PM CDT STMA Blood (Blood, Arterial Line) 11/25/2023 1:31 PM CDT 11/25/2023 1:31 PM CDT Ale Tatum M.D. LAB BLOOD ADD-ON [facility] [place] [address] 200 [place] [address] * (ABNORMAL) Hemoglobin, Whole Blood (11/25/2023 12:13 PM CDT) Hemoglobin, B 8.1(L) 13.2 - 16.6 g/dL 11/25/2023 12:14 PM CDT [facility] Blood (Blood, Arterial Line) 11/25/2023 12:13 PM CDT 11/25/2023 12:13 PM CDT Gogo Chavez APRN, CRNA LAB BLOOD NON A DD-ON Performing Organization Address City/[facility]/ZIP Co de Phone Number [facility] [place] [address] [place] [address] * Transfuse Red Blood Cells : (11/25/2023 11:50 AM CDT) Only the most recent of3 resultswithin the time period is included. Ale Tatum M.D. BLOOD TRANSFUSION OR DERABLES * Lactate, B - Intra-op (11/25/2023 11:09 AM CDT) Pathologist [facility] Lactate, B 1.1 0.5 - 2.2 mmol/L 11/25/2023 11:11 AM CDT [facility] Blood (Blood, Venous) 11/25/2023 11:09 AM CDT 11/25/2023 11:09 AM CDT Ale Tatum M.D. LAB BLOOD NON ADD-ON [facility] [place] 200 [place], [place] [phone] [place] [address] 200 [place] [address] * HI ARTL CATH/CNULA MONITOR PERC, LDA ANE ARTERIAL [...] fellow participated in the procedure, and the sap security consultant was present for the entire procedure. Ale Tatum M.D. PROCEDURE/MINOR SURG ICAL ORDERABLES * BLOSSOM NAVARRETE ENDOTRACHEAL AIRWAY (11/25/2023 8:01 AM CDT) Narrative [...] ETT location: oral VL device: glide scope Ripley scope blade size: 3 Tube size: 7.5 [...] CDT 11/25/2023 7:11 AM CDT Hilda Carranza APRN C.N.P., M.S.N. LA B BLOOD NON ADD-ON [facility] [place] [address] [place] [address], [facility] [address] [place] [address] * (ABNORMAL) Blood Gas with Coox, Venous [...] C.N.P., M.S.N. LA B BLOOD NON ADD-ON [facility] [place] [address] [place] [address], [facility] STMA [facility] [address] [place] [address] * (ABNORMAL) Dipstick, Urine (11/24/2023 9:58 AM [...] D.N.P. LAB URINE ORDERABLES Performing Organization Address City/[facility]/ZIP Co de Phone Number [facility] [place] [address] [facility] 200 [place] [address] * (ABNORMAL) Microscopic Manual (11/24/2023 9:58 AM [...] 9:58 AM CDT 11/24/2023 11:52 AM CDT Barbara Montes APRN.N.P., D.N.P. LAB URINE ORDERABLES Performing Organization Address City/[facility]/ZIP Co de Phone Number [facility] [place] [address] [place], [place] [phone] [place] [address] [facility] 200 [place] [address] * pH, Urine (11/24/2023 9:58 AM CDT) pH, U 5.1 4.5 - 8.0 11/24/2023 11: 48 AM CDT DTL Urine 11/24/2023 9:58 AM CDT 11/24/2023 10:39 AM CDT Tracy Montes APRNN.Tian, D.N.P. LAB URINE ORDERABLES Performing Organization Address City/[facility]/ZIP Co de Phone Number [facility] [place] [address] [place], [place] [address] [place] [address] 200 [place] [address] * Osmolality, Urine (11/24/2023 9:58 AM CDT) Osmolality, U 901 150 - 1150 mOsm/kg 11/24/2023 11:48 AM CDT DTL Urine 11/24/2023 9:58 AM CDT 11/24/2023 10:39 AM CDT Barbara Montes APRN.N.P., D.N.P. LAB URINE ORDERABLES Performing Organization Address City/[facility] Co de Phone Number [facility] [place] [address] [place], [place] [address] [place] [address] * (ABNORMAL) Urinalysis, with Microscopic: Urine, Catheter [...] Hansen APRN, C.N.P., D.N.P. LAB URINE ORDERABLES Performing Organization Address City/[facility]/ZIP Co de Phone Number [facility] [place] [address] [facility] 200 [place] [address] * Drug Screen Urine (11/24/2023 7:01 AM [...] 7:01 AM CDT 11/24/2023 7:27 AM CDT Hilda Carranza APRN, C.N.P., M.S.NTarik LA B URINE ORDERABLES Performing Organization Address City/[facility]/ZIP Co de Phone Number [facility] [place] 200 [place], [place] [phone] [place] [address] DTL [facility] [address] [place] [address] * DX Femur Left 1 View (11/24/2023 [...] is overlying the distal left femur. Mickey Benton M.D. IMG DIAGNOSTIC IMAGI NG PROCEDURES * (ABNORMAL) Troponin [...] CDT Bereket Snider M.D. LAB BLOOD TROPONIN [facility] [place] [address] [place] [address], [facility] STMA [facility] [address] [place] [address] * DX Femur Left 2 Views (11/23/2023 [...] ?? Complications: no immediate complications ?? Mickey Betnon M.D. PROCEDURE/MINOR SURG ICAL ORDERABLES * Hand, [...] 0.9 - 1.1 11/23/2023 5:24 PM CDT [facility] Comment: ----ADDITIONAL INFORMATION---- Standard intensity warfarin therapeutic range: 2.0 to 3.0 ?? High intensity warfarin therapeutic range: 2.5 to 3.5 Blood (Blood, Venous) 11/23/2023 4:51 PM CDT 11/23/2023 5:01 PM CDT Sheldon Choi P.A.-C. LAB BLOOD A DD-ON Performing Organization Address [facility] Co de Phone Number [facility] [place] 200 [place] [address], [place] [address] * Hemoglobin A1c (11/23/2023 4:51 PM CDT) Hemoglobin A1c, B 5.4 4.0 - 5.6 % 11/23/2023 5:42 PM CDT DTL Blood (Blood, Venous) 11/23/2023 4:51 PM CDT 11/23/2023 5:19 PM CDT Sheldon Choi P.A.-C. LAB BLOOD A DD-ON Performing Organization Address [facility] Co de Phone Number [facility] [place] 200 [place] [address], [facility] DTL [facility] 200 [place] [address] * Critical Care (11/23/2023 4:42 PM CDT) Narrative Carol Miller M.D. 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 Toni Vazquez M.D. IMG CT PROCEDURES * CT Lumbar Spine by [...] within the thoracic or lumbar spine. Bereket RANDHAWA CT PROCEDURES * CT Thoracic Spine by Reconstruction (11/23/2023 1:44 PM CDT) Anatomical Region Laterality Modality Thoracic Spine, Neuroradiolo gy RST LOS, Neuroradiology ARZ LOS, Neuroradiology FLA [...] thoracic or lumbar spine. Bereket Snider M.D. IMJanna CT PROCEDURES * CT Cervical Spine without IV Contrast (11/23/2023 1:44 PM CDT) Anatomical Region Laterality Modality Cervical Spine, Neuroradiolo gy RST LOS, Neuroradiology ARDR[facility], [facility] N[facility]A Computed Tomography, Compute d Tomography 11/23/2023 [...] the cervical spine. Chronicchanges as noted. Bereket RANDHAWA CT PROCEDURES * CT Chest with IV [...] CHEST: Nondisplaced left anterior sixth rib fracture (5/202). No mediastinal hematoma or collections. No pleural [...] chest. 4. Small incidental pulmonary nodules. Bereket S Tylor M.D. IMG CT PROCEDURES * Lactate for Sepsis with Reflex, POCT (11/23/2023 1:06 PM CDT) [facility] Lactate, POCT 1.67 0.50 - 2.20 mmol/L 11/23/2023 1:19 PM CDT PCLX Blood (Blood, Venous) 11/23/2023 1:06 PM CDT 11/23/2023 1:06 PM CDT Bereket Snider M.D. LAB POCT ORDERABLES - DEVICE POC [facility] [address] [place] [address], [facility] PCLX [facility] POC [address] [place] [address] * (ABNORMAL) Venous Blood Gas and Electrolytes CG8+, POCT (11/23/2023 1:06 PM CDT) [facility] Sample Site, POCT Venstick 11/23/2023 1:19 [...] LAB POCT ORDERABLES - DEVICE POC RST [facility] INPATIENT LABS 200 [place] [address], [facility] POC [address] [place] [address] * APTT (Activated Partial Thromboplastin Time) (11/23/2023 1:06 PM CDT) Activated Partial Thrombopl Time, P 30 25 - 37 sec 11/23/2023 2:03 PM CDT STMA Blood (Blood, Venous) 11/23/2023 1:06 PM CDT 11/23/2023 1:18 PM CDT Bereket Snider M.D. LAB BLOOD ADD-ON [facility] [place] [address] [place] [address], [facility] STMA [facility] [address] [place] [address] * Type and Screen (with Reflex Antibody ID) (11/23/2023 1:06 PM CDT) Pathologist [facility] ABORh AB Pos Not applicable 11/23/2023 1:46 PM CDT STRM Antibody Screen Negative Negative 11/23/2023 1:59 PM CDT STRM Type & Screen Expiration 11/26/2023 23:59 11/23/2023 1:46 PM CDT STRM Testing Location Danielle DEFAULT 11/23/2023 1:19 PM CDT STRM Blood (Blood, Venous) 11/23/2023 1:06 PM CDT 11/23/2023 1:19 PM CDT Bereket Snider M.D. LAB BLOOD BANK TEST ORDERABLES Performing Organization Address [facility] Co de Phone Number [facility] [place] [address] [place] [address], [facility] [address] [place] [address] * Ethanol Level, Serum (11/23/2023 1:05 PM CDT) Pathologist [facility] Ethanol, S <10 <10 mg/dL 11/23/2023 2:1 4 PM CDT DTL Blood (Blood, Venous) 11/23/2023 1:05 PM CDT 11/23/2023 1:40 PM CDT eBreket Snider M.D. LAB BLOOD NON ADD-ON [facility] [place] [address] [place] [address], [facility] DTL [facility] [address] [place] [address] * (ABNORMAL) Hepatic Function Panel (11/23/2023 1:05 [...] M.D. LAB BLOOD ADD-ON Performing Organization Address City/[facility]/ZIP Co de Phone Number [facility] [place] [address] [place] [address], [facility] [address] [place] [address] * (ABNORMAL) S-TSH (Thyroid-Stimulating Hormone - Sensitive) (11/23/2023 1:05 PM CDT) Pathologist [facility] TSH, Sensitive 6.1(H) 0.3 - 4.2 mIU/L 11/23/2023 2:14 PM CDT DTL Blood (Blood, Venous) 11/23/2023 1:05 PM CDT 11/23/2023 1:40 PM CDT Bereket Snider M.D. LAB BLOOD ADD-ON [facility] [place] [address] [place] [address], [facility] DTL [facility] [address] [place] [address] * Lipase (11/23/2023 1:05 PM CDT) Lipase, S 19 13 - 60 U/L 11/23/2023 2: 14 PM CDT DTL Blood (Blood, Venous) 11/23/2023 1:05 PM CDT 11/23/2023 1:40 PM CDT Bereket Snider M.D. LAB BLOOD ADD-ON [facility] [place] [address] [place] [address], [facility] [address] [place] [address] from Last 3 Months Advance Directives For more information, please contact: [phone] * Full Code (Latest Code Status on File) Date Activated Date Inactivated Comments 11/23/2023 5:00 PM Question Answer Comments Full Code: Discussed Care Teams Sheeter Operator Relationship Specialty Start Date End Date Elsewhere, Pcp PCP - General Internal Medicine 11/23/23
--- OUTSIDE RECORDS SUMMARY | 2023-12-09 15:34 | XMS_ITS ---
Author Organization [facility] Address [address] [place] [address] Care Team Providers Care Log Roper Name Role Phone Unavailable Unavailable Unavailable Surgery Details Not on file Complications Check Surgery Details section. Procedure Estimated Blood Loss Check Surgery Details section. Procedure Findings Check Surgery Details section. Procedure Specimens Taken Check Surgery Details section.
--- OUTSIDE RECORDS SUMMARY | 2023-12-09 15:34 | XMS_ITS | Encounter Summary ---
Author Organization [facility] Address [address] [place] [id number] Care Team Providers Care Resident Athletic Trainer Name Role Phone Elsewhere, Pcp Primary Care Provider Unavailabl e Reason for Referral * Outpatient (Routine) - Authorized Specialty Diagnoses / Procedures Referred By Contac t Referred To Contact Neurological Surgery Diagnoses Hemorrhage Subarachnoid Nontraumatic (HCC) Vanessa Curiel APRN, CNS, D.N.P., M.S.N. [address] [place] [phone] [facility] Referral ID Status Reason Start Date Expiration Date V isits Requested Visits Authorized [id number] Authorized 11/25/2023 05/26/2025 1 1 * MRI/CAT/PET Scan (Routine) - Pending Review Specialty Diagnoses / Procedures Referred By Contac t Referred To Contact Radiology Diagnoses Hemorrhage Subarachnoid Nontraumatic (HCC) Procedures CT Head without IV Contrast Vanessa Curiel APRN, CNS, D.N.P., M.S.N. [address] [place] [phone] [facility] Referral ID Status Reason Start Date Expiration Date V isits Requested Visits Authorized [id number] Pending Review 11/25/2023 11/24/2024 1 1 Encounter Details Date Type Department Care Team (Late st Contact Info) Description 11/25/2023 Clinical Communication [facility] [address] [place] [phone] Vanessa Curiel APRN, MYLA, D.N.P., M.S.N. [address] [place] [phone] Social History Tobacco Use Types Packs/Day Years [...] PM CDT Clinical Communication Virtual Review in [place], [place] [address] [place] [phone] 12/28/2023 7:45 AM CDT Appointment Department of Radiology, [facility], in [address] [phone] Sera Avila P.A.-C., M.S. [address] [place] [phone] 12/28/2023 8:15 AM CDT Appointment Department of Radiology, [facility], in [address] [phone] Vanessa Curiel APRN, MYLA, D.N.P., M.S.N. [address] [place] [phone] 12/28/2023 2:00 PM CDT Office Visit Department of Neurologic Surgery in [address] [phone] Harmony Lomas APRN, C.N.P., M.S.N. [address] [place] [phone] 01/05/2024 9:45 AM CDT Office Visit Department of Orthopedic Surgery in [place], [place] [address] [place] [phone] Rodrigo Leiva M.D. [address] [place] [phone] Scheduled Orders Name Type Priority Associated Diagnoses Orde r Schedule CT Head without IV Contrast Imaging RAD - Routine (most inpatients and all outpatients) Hemorrhage Subarachnoid Nontraumatic (HCC) Expected: 12/25/2023 (Approximate), Expires: 02/24/2025 Scheduled Referrals Name Type Priority Associated Diagnoses Orde r Schedule Neurological Surgery Post Op (clinic) Outpatient Referral Routine Hemorrhage Subarachnoid Nontraumatic (HCC) Expected: 12/25/2023, Expires: 02/24/2025 documented as of this encounter Visit Diagnoses Diagnosis Hemorrhage Subarachnoid Nontraumatic (HCC)- Primary documented in this encounter Care Teams Resident Athletic Trainer Relationship Specialty Start Date End Date Elsewhere, Pcp PCP - General Internal Medicine 11/23/23 documented as of this encounter
--- OUTSIDE RECORDS SUMMARY | 2023-12-09 15:35 | XMS_ITS | Encounter Summary ---
Author Organization [facility] Address [address] [place] [id number] Care Team Providers Care Teasel Setter Name Role Phone Elsewhere, Pcp Primary Care Provider Unavailabl e Reason for Visit * Reason Comments Fall * Auth/Cert (Routine) Specialty Diagnoses / Procedures Referred By Rahul t Referred To Contact Diagnoses Anemia Contusion Buttock Initial Subarachnoid Hemorrhage With Loss Of Conscious Initial (HCC) Fracture Acetabulum Closed Initial Left (HCC) Fracture Ilium Closed Initial Left (HCC) History Of Falling Other Shock (Hemorrhagic Shock) (HCC) Retroperitoneal Hematoma Procedures EMERGENCY Carol Miller M.D. [address] [place] [phone] Referral ID Status Reason Start Date Expiration Date Visits Re quested Visits Authorized [id number] 1 1 Encounter Details Date Type Department Care Team (Late st Contact Info) Description 11/25/2023 7:25 AM CDT - 11/25/2023 12:22 PM CDT Surgery [facility] MAIN OR [address] [place] [phone] Naveed Higuera M.D. [address] [place] [phone] OPEN REDUCTION INTERNAL FIXATION ACETABULUM. Social History Tobacco Use Types Packs/Day Years Used Date Smoking Tobacco: Never Assessed Dental Answer Date Recorded Dental: Regular Dentist Unknown 11/23/19 24 Sex and Gender Information Value Date Recorded Sex Assigned at Not on file Gender Identity Not on file Sexual Orientation Not on file documented as of this encounter Last Filed Vital Signs Vital Sign Reading Time Taken Comments Blood Pressure 126/61 11/25/2023 6:15 AM CDT Pulse 75 11/25/2023 6:15 AM CDT Temperature 37.1 ??C (98.8 ??F) 11/24/2023 7:00 PM CD T Respiratory Rate 20 11/25/2023 6:15 AM CDT Oxygen Saturation 95% 11/25/2023 6:15 AM CDT Inhaled Oxygen Concentration - - Weight 86.6 kg (190 lb 14.7 oz) 024 12:00 AM CDT Height 180.3 cm (5' 11) 11/23/2023 5:00 PM CDT Body Mass Index 28.73 11/29/2023 1:51 PM CDT documented in this encounter Progress Notes * Pippa Lee O.T., O.T.D. - 12/09/2023 2:59 PM CDT Occupational Therapy Acute Hospital Inpatient Progress Note SUBJECTIVE Patient's Name: Carlos Alberto Grayson Reason for Referral: OT eval and treat - brain consult Medical Diagnosis: 1. Fracture Ilium Closed Initial Left (HCC) 2. History Of Falling 3. Retroperitoneal Hematoma 4. Fracture Acetabulum Closed Initial Left (HCC) 5. Contusion Buttock Initial 6. Anemia 7. Subarachnoid Hemorrhage With Loss Of Conscious Initial (HCC) 8. Other Shock (Hemorrhagic Shock) (HCC) 9. Fracture Pelvis Multiple Closed With Stable Disruption Pelvis Ring Initial (HCC) 10. Dysphagia [R13.10] 11. Decline Cognitive [R41.81] 12. 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 Subarachnoid Hematoma Trauma Without Loss Of Consciousness Subsequent [S06.6X0D] 14. Lack Of Coordination [R27.9] 15. Other Abnormalities Of Gait And Mobility [R26.89] 16. 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 Delirium [R41.0] History of Present Illness: Pt is an 83 year old male with no known medical history who presented to the hospital on 11/22 following a fall from approximately 6 feet off a ladder. He landed on his leftside and hit his head. He is amnesic to the events. Per his there are concerns that he may have dementia, but does not see a primary care physician. Trauma scans reeleaved: small amount of layering blood products in the occipital horn of the left lateral ventricle, small cortical hemorrhage versus focal subarachnoid hemorrhage anterior left frontal lobe, left pelvic fractures with associatedleft retroperitoneal hematoma, intramuscular hematomas involving the left gluteus and iliopsoas musc les and nondisplaced left anterior sixth rib fracture. Pt is s/p ORIF of the left acetabulum. Onset Date: 11/23/23 Patient/Caregiver Goals: Pt goal to return home. Patient Comments: Patient agreeable to participate in occupational therapy Precautions Weight Bearing Status: TTWB LLE - difficulty maintaining this Other Precautions: Fall risk, cognition, aspiration Fall Risk (65 and older) Fall in the last 12 months: Yes Did you have an injury with the fall?: Yes Are you fearful of falling?: Yes OBJECTIVE Pain: No pain reported during therapy Vitals:Not indicated at this time Activities of Daily Living Grooming Grooming Location: Seated on edge of bed Grooming Delivery: Assessed, Facilitated Grooming Level of Assistance: Supervision/Set-up Grooming Comments: Patient seated edge of bed to engage in grooming tasks. Therapist assisted with set-up by gathering items for patient. Patient required repetition and simplification of instructions to appropriately initiate tasks. Patient brushed teeth and washed face with increased time. Functional Mobility Bed Mobility - Supine to Sit # of Assistants: 1 Level of Assistance: Minimal assistance Device: Head of bed elevated Cuing: Verbal, Tactile Comments: Patient requires assist to manage left lower extremity off edge of bed. Therapist facilitating at trunk to initiate movement to transition edge of bed. Bed Mobility - Sit to Supine # of Assistants: 1 Level of Assistance: Minimal assistance Device: Head of bed elevated Cuing: Verbal, Tactile Comments: Patient attempted to hook right leg under left to manage up onto bed. Therapist providingminimal assistance and left lower extremity to fully position on bed. Patient able to manage trunk. Therapeutic Functional Activity Facilitated engagement in card sorting activity to further target sustained attention, pattern recognition, and problem solving. Patient able to appropriately sort cards via suit after repetition of instructions. Progressed to patient having to organize cards from low to high and high to low for each suit; completed with increased time. Therapist then instructed patient on how to play a simple card game. Patient able to appropriately follow rules with increased time and initial repetition. Patient/Family Education: Purpose and plan for occupational therapy, progression of activity At the end of today's therapy session patient was left in bed with an appropriate call light withinreach. Patient's needs and questions addressed during today's session. Assessment Carlos Alberto was pleasant and participatory during therapy today. Focused on functional cognition through therapeutic activities. Demonstrated improved sustained attention and rule following during activity.He does continue to require increased assistance with cues for sequencing and appropriately organizing daily tasks such as grooming. Recommending ongoing skilled occupational therapy services to continue to address deficit areas to maximize safety and independence in daily living tasks. Barriers to Discharge Home: Current functional status, Fall risk, Safety concerns Comorbid Conditions: None Personal Factors: Age, Balance impairment, History of falls, Needs assistive device Discharge Therapy Needs - OT: Ongoing skilled occupational therapy Level of Care Needed - OT: Assistance with toileting, Assistance with toilet/shower transfers, Assistance with medication set up/administration, Assistance with showering/bathing, Assistance with eating/feeding, Assistance with dressing, Assistance with meal preparation, Assistance with financial ma nagement, Assistance with transportation, Assistance with housekeeping, Assistance with shopping, Cognitive assistance needed, Physical assistance needed Skilled therapy can include occupational therapy provided by home health, outpatient clinic, or a post-acute facility. The location of these services is determined by the patient's care team in partnership with patient/family. Recommended Adaptive Equipment - OT: Other (Comment) (Ongoing assessment) Functional Goals and Timeframes: OT Goal #1: STG: By goal review date, pt will complete transfer to/from the commode with least restrictive transfer device and moderate physical assistance. OT Goal #2: STG: By goal review date, pt will complete one simple grooming task from seated base with setup assistance. OT Goal #3: LTG: By discharge, pt and caregivers will demonstrate understanding of all adaptive equipment recommendations for home going in order to maximize safety and independence with ADL/IADL tasks. Progress: Progressing toward goals Plan Patient agrees with the plan of care and goals. Treatment Plan: OT Frequency: 5 times per week OT Amount: 1 visit per day OT Inpatient Duration : Until goals are met or hospital discharge Plan: Continue with current plan Treatment interventions may include: Treatment Interventions: Therapeutic exercise, Therapeutic functional activity, Neuromuscular re-education, Self-care/home management, Cognitive skills training Time Spent with Patient Therapeutic Interventions Home Management Training (min): 10 min Therapeutic Activity (min): 21 min Time Tracking Total Timed Units (min): 31 min Total Treatment Time (min): 31 min Pippa Lee O.T., O.T.D. * Sunshinemary Maria Del Carmen Roderick Bob - 12/09/2023 12:17 PM CDT Physical Therapy Acute Hospital Inpatient Treatment SUBJECTIVE Patient's Name: Carlos Alberto Grayson Reason for Referral: PT eval and treat - brain consult Medical Diagnosis: 1. Fracture Ilium Closed Initial Left (HCC) 2. History Of Falling 3. Retroperitoneal Hematoma 4. Fracture Acetabulum Closed Initial Left (HCC) 5. Contusion Buttock Initial 6. Anemia 7. Subarachnoid Hemorrhage With Loss Of Conscious Initial (HCC) 8. Other Shock (Hemorrhagic Shock) (HCC) 9. Fracture Pelvis Multiple Closed With Stable Disruption Pelvis Ring Initial (HCC) 10. Dysphagia [R13.10] 11. Decline Cognitive [R41.81] 12. 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 Subarachnoid Hematoma Trauma Without Loss Of Consciousness Subsequent [S06.6X0D] 14. Lack Of Coordination [R27.9] 15. Other Abnormalities Of Gait And Mobility [R26.89] 16. 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 Delirium [R41.0] History of Present Illness: Pt is an 83 year old male with no known medical history who presented to the hospital on 11/22 following a fall from approximately 6 feet off a ladder. He landed on his leftside and hit his head. He is amnesic to the events. Per his there are concerns that he may have dementia, but does not see a primary care physician. Trauma scans reeleaved: small amount of layering blood products in the occipital horn of the left lateral ventricle, small cortical hemorrhage versus focal subarachnoid hemorrhage anterior left frontal lobe, left pelvic fractures with associatedleft retroperitoneal hematoma, intramuscular hematomas involving the left gluteus and iliopsoas musc les and nondisplaced left anterior sixth rib fracture. Pt is s/p ORIF of the left acetabulum. Onset Date: 11/23/23 Patient/Caregiver Goals: Pt goal to return home. Patient Comments: Patient greeted at edge of bed and is sleeping. Uses walking and agreeable to treatment. Precautions Weight Bearing Status: TTWB LLE - difficulty maintaining this Other Precautions: Fall risk, cognition, aspiration Fall Risk (65 and older) Fall in the last 12 months: Yes Did you have an injury with the fall?: Yes Are you fearful of falling?: Yes OBJECTIVE Pain: Patient reports mild pain with transitions sitting edge of bed. Vitals: Not indicated at this time Bed Mobility - Supine to Sit # of Assistants: 1 Level of Assistance: Minimal assistance, Moderate assistance Device: Head of bed elevated Cuing: Verbal, Tactile Comments: With head of bed partially raised patient requiring assist at trunk with transition to his right to sit edge of bed. Patient able to bring lower extremities over edge of bed this date without assist. Sit to Stand Transfers # of Assistants: 1 Transfer Surface: Bed, Chair Transfer Equipment: Gait belt, Front wheeled walker Level of Assistance: Moderate assistance Assessment/Delivery: Assessed, Instructed, Therapist assisted, Facilitated Comments: Initial standing with right foot on pillow and verbal cues not to squish pillow for TTWB.Patient with difficulty following cues and switched to left foot on DIRECT SUPPORT WORKER's foot to monitor weight bearing and verbal cues for TTWB. Patient able to stand for short time 15-20 seconds with NWB left lower extremity. He is unable to maintain TTWB with verbal and physical cues. Stand to Sit Transfers # of Assistants: 1 Transfer Surface: Bed Transfer Equipment: Gait belt, Front wheeled walker Level of Assistance: Moderate assistance Assessment/Delivery: Instructed, Assessed, Therapist assisted, Facilitated Comments: Assisted with slowed descent and guiding hips back onto bed Bed, Chair, Wheelchair Transfers # of Assistants: 1 Transfer Surface: Chair Transfer Approach: To Transfer Equipment: Front wheeled walker Level of Assistance: Moderate assistance Assessment/Delivery: Assessed, Instructed, Therapist assisted, Facilitated Comments: Assist for TTWB on left and verbal and physical cues to pivot to his right to chair with mod 1 assist for stability and TTWB. Balance Retraining Sitting: Static, Midline orientation (comment), Anterior/posterior leans Static Standing Balance: Static standing Static Standing Balance Comments: Facilitation privded to maintain weigh tthrough RLE. BUE support through front wheeled walker and physical assist for TTWB left. Seated Exercise - Side Addressed: Right, Left Sitting Surface: Chair Seated Exercise: Marching, Long arc quads Exercise Mode: Active motion against gravity Sets/Repetitions: 10x2 Seated Exercise Comments: Physical and visual cues for exercises Standing Exercise - Side Addressed: Left Standing Exercise: Marching Exercise Mode: Active assistance (comment), With bilateral upper extremity support Standing Exercise Comments: With patient's left lower extremity supported on therapist foot he is able to complete marching activity with maintaining toe- touch weight-bearing. Patient/Family Training: Ongoing education on toe-touch weight-bearing status with patient requiring frequent verbal and physical cues to maintain. At the end of today's therapy session patient was left seated in bedside chair 1:1 staff present with an appropriate call light within reach. Patient's needs and questions addressed during today's session. Assessment Patient able to transition at edge of bed to his right today with assist at trunk and able to bringlower extremities over edge of bed without physical assist. Patient able to state that he has not supposed put much weight on left lower extremity but unable to comply without physical assist and cuing once standing. With stand pivot transfers patient is unable to maintain weight- bearing status in nursing to continue with ceiling lift transfers. Patient will benefit from ongoing physical therapy progressing strength, neuromuscular re- education safe functional ability per plan of care. Barriers to a safe discharge home: Barriers to Discharge Home: Current functional status, Fall risk, Safety concerns Comorbid Conditions: None Personal Factors: Age, Balance impairment, History of falls, Needs assistive device Discharge Therapy Needs - PT: Ongoing skilled physical therapy Level of Care Needed - PT: Assistance with bed mobility, Assistance with transfers (Comment), Assistance with walking and moving around the home, Assistance with stairs, Physical assistance needed, Cognitive assistance needed Skilled therapy can include physical therapy provided by home health, outpatient clinic, or a post-acute facility. The location of these services is determined by the patient's care team in partnership with patient/family. Functional Goals and Timeframes: PT Goal #1: Patient will demonstrate independence with supine to/from sit transfer without use of hospital bed features to progress functional mobility and return to prior level of function. PT Goal #1 Status: Slowly progressing PT Goal #2: Patient will demonstrate functional transfers with moderate assitance with least restrictive assistive device while maintaining TTWB on LLE to progress functional mobility and facilitate return to prior level of function. PT Goal #2 Status: Slowly progressing PT Goal #3: Patient will ambulate 10ft or greater with least restrictive assistive device while maintaining TTWB on LLE with minimal assistance in order to progress functional mobility and facilitatereturn to prior level of function. PT Goal #3 Status: Ongoing Progress: Slow progress, cognitive deficits Plan Patient agrees with the plan of care and goals. Treatment Plan: PT Frequency: 5 times per week PT Amount: 1 visit per day PT Inpatient Duration : Until goals are met or hospital discharge Plan: Continue with current plan PT Plan Comments: Skilled physical therapy to promote safety and independence with functional mobility, decrease fall risk, determine appropriate durable medical equipment needs, and aid with discharge planning Treatment interventions may include: Treatment/Interventions: Therapeutic exercise, Therapeutic functional activity, Neuromuscular re-education, Gait training DIRECT SUPPORT WORKER Visit Trackin Time Spent with Patient Therapeutic Interventions Therapeutic Activity (min): 20 min Therapeutic Exercise (min): 10 min Time Tracking Total Timed Units (min): 30 min Total Treatment Time (min): 30 min Maria Del Carmen Diaz P.TYenny * Lizett Ashraf O.T., O.T.D., VINITA - 12/08/2023 4:50 PM CDT OT dysphagia monitor note: Nursing reports no swallowing concerns with Mr. Grayson this date and dysphagia therapist reportedgood tolerance to modified diet of Level 6 Soft and Bite- sized (SB6) and thin liquids on 12/04. Mr. Grayson's main barrier to progressing diet textures further is his impulsivity and tendency to takevery large bites which increases his choking risk. Recommend continue current modified diet textures at this time and will plan to check back to determine if able to upgrade diet early next week. Dueto good tolerance of current diet recommendations, will decrease frequency of dysphagia treatments to 2 times per week. Tamia Ashraf O.T., O.T.D., VINITA * Nurys Cifuentes P.A.-C. - 12/08/2023 12:36 PM CDT Geriatrics Consult - Progress Note SUBJECTIVE Mr. Gryason was seen and evaluated on geriatric rounds this morning. Upon arrival, he was lying inbed and was awake. He states that he was he does not need to urinate and does not want to try. I will wait to discuss these topics with my and do not want to do anything before then. Nursing had just gotten off the phone with his to encourage the patient to get straight catheterized. I have reviewed the current medication list. OBJECTIVE VITAL SIGNS Temperature: [36.5 ??C-36.8 ??C] 36.5 ??C Resp Rate: [16-18] 18 Blood Pressure: (114-141)/(50-61) 141/59 SpO2: [94 %-97 %] 96 % Pulse Rate: [76-91] 76 PHYSICAL EXAM General: Alert, interactive, not acutely ill, no apparent distress. ENT: DIOMEDE Lungs: Normal rate and effort Heart: No extremity edema. Abdomen: nondistended, nontender Mental: Attention intact (completed backwards days) RASS 0. Converses well. Alert. Answers questions generally appropriately. Was telling nursing Jf did not want him to get catheterized. DIAGNOSTICS I have independently reviewed labs over 24 hrs. ASSESSMENT / PLAN Mr. Grayson is hospitalized on [facility] Trauma for evaluation and management of: Fracture Ilium Closed Initial Left (HCC). 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 Comorbidities include (collateral received from Mikayla- retired nurse) known cognitive impairment with significant short-term memory issues (independent with most IADLs and ADLs except finances), cataracts, macular degeneration, hard of hearing, BPH. He fell from a ladder while attempting to repair a leak on his roof. Sustained SAH, IVH, left 6th rib fracture, left complex pelvic fracture s/p ORIF 11/24. Course c/b left lower soleal vein DVT, hemorrhagic shock ( 7 units PRBCs, 2 units cell saver, 2 units FFPs, platelets 2 units), hypotension (resolved), hypoxic respiratory failure (resolved), urinary retention in the setting of known BPH requiring q.4 hours I&O cathing (recently started on tamsulosin, finasteride added 12/01), delirium (requiring IA and previously olanzapine and non violent restraints). 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 He was briefly on suvorexant and ramelteon->melatonin. Now back on ramelteon due to development of insomnia again, this may not be continued at discharge but can help while inpatient. Repeat CT head after initiation of DVT ppx showed stable intracranial hemorrhage. Delirium continues to improve, and we are likely at his baseline, confirmed by his as well. He is medically ready for discharge and patient and his have decided to pursue SNF for rehab with eventual goal of returning home with home health care. Over the last 2 days, he has been refusing catheterizing a lot and this is contributed to some mildagitation as well as higher than ideal i/o catheterization volumes. He had a Rosado previously and when he was very delirious he was trying to remove his Rosado himself. Now with his improvement, placement of Rosado could be reconsidered especially as he refuses to get straight catheterization. This could be a conversation between the medical team and his regarding risks and benefits. This could be beneficial two ways: would help prevent agitation with needing I/o cathing 4x daily and then his bladder could get fully decompressed. Risk of course being traumatic self removal or confusion related to the presence of a rosado. Either way I suspect he will require urology follow up. RECOMMENDATIONS: Risk/benefit discussion regarding trialing of rosado again Will need urology follow up for urinary retention Discussed w/nursing regarding optimizing of cathing schedule and how best to order to ensure sufficient emptying and not waking overnight to catheterization Ideally schedule would be early in the morning once wakes, 10a, 4p, 10p Goal post void residual <400 cc Continue new tamsulosin and finasteride Continue to offer urinal multiple times per day and before straight cathing Continue ramelteon, sleep enhancement General delirium prevention/management strategies: Minimize RAILWAY SWITCHMAN-acting medications. Increase mobility to match ability. Frequent reorientation. Provide moderate level of social and cognitive stimulation. Treat dehydration and constipation. Nonpharmacologic sleep promotion strategies. The above plan of care was discussed with Dr. Coello, HIM programmer analyst consultant. I personally spent a total of 35 minutes providing and coordinating care today. Thank you for the opportunity to care for this patient. We will continue to follow with you. Pleasepage the Geriatrics Consult Service at [phone] with any questions or concerns. * Fidelina Lopes - 12/08/2023 11:25 AM CDT Nutrition Care Plan Follow Up Clinical Nutrition continues to follow patient for oral intake encouragement and oral nutrition supplement follow up/adjustment. ASSESSMENT Completed visit with patient and care team today as part of face to face care. Current Nutrition (since admission): Brief visit today with patient and care team. Patient expressed not liking his ONS and not believing he needs them; however, AUTOMATIC LEHR OPERATOR confirmed he is still drinking them. Will continue to send, as oral intake is quite variable. Percentage of Meals Eaten for the past 72 hrs: Percent Meals Eaten (%) 12/08/23 0856 100 12/07/23 1821 75 12/07/23 0931 25 12/06/23 1900 0 12/06/23 1237 75 12/06/23 0830 75 12/05/23 1218 25 Swallow function: On 12/02 patient was evaluated by OT Dysphagia and diet order was upgraded from MM5 to SB6. Patient is seen by OT Dysphagia three days a week. Current nutrition orders: Current Diet Adult Diet Dysphagia; Thin (TN0); Soft and Bite-Sized (SB6) starting at 12/02 1357 GI Function: Last BM Date: 12/08/23, [place] Stool Chart: Type 4: Like a sausage or snake, smooth and soft, Passing Flatus: Yes Weight since admission: Height: 180.3 cm Admission Weight: 86.3 kg (11/23/2023) Current Weight: 93.4 kg (11/30/2023) BMI (Calculated): 28.7 kg/m?? Weight change since admission: 7.1 kg Net IO Since Admission: -2,395.43 mL [12/08/23 1125] Estimated Needs: Total Calorie Needs: 9531-8387 calories/day Method to Estimate Energy Needs: kcal/kg (22-25 kcal/kg) Weight Used for Equation Calculations: 86.3 kg Total Protein Needs: 85 - 102 grams/day Method to Estimate Protein Needs (g/kg): 1 - 1.2 gm/kg Weight Used to Calculate Protein Needs (Kg): 85 kg Nutrition Diagnosis: Swallowing difficulty related to fall and confusion as evidenced by need for dysphagia diet Nutrition Diagnosis Reassessment: Ongoing (improving) PLAN Nutrition Intervention: Medical food supplement, Increase nutrient intake with small, frequent meals and/or snacks, Vitamin and mineral supplements Nutrition parameter to monitor: Meals/Supplement Intake, Diet Progression/NPO Status, Skin Integrity, Pertinent Labs, Nausea/Vomiting/Diarrhea, Chewing/Swallowing ASPEN Criteria Malnutrition Status: Well Nourished Recommendations: No changes at this time; continue current nutrition orders Clinical Nutrition will continue to follow. For questions about patient's nutritional care please contact pager [phone] on weekdays 07:30-16:00 or [phone] on weekends/holidays ([facility]). * Maria Del Carmen Diaz, P.T.A. - 12/08/2023 11:24 AM CDT Physical Therapy Acute Hospital Inpatient Treatment SUBJECTIVE Patient's Name: Carlos Alberto Grayson Reason for Referral: PT eval and treat - brain consult Medical Diagnosis: 1. Fracture Ilium Closed Initial Left (HCC) 2. History Of Falling 3. Retroperitoneal Hematoma 4. Fracture Acetabulum Closed Initial Left (HCC) 5. Contusion Buttock Initial 6. Anemia 7. Subarachnoid Hemorrhage With Loss Of Conscious Initial (HCC) 8. Other Shock (Hemorrhagic Shock) (HCC) 9. Fracture Pelvis Multiple Closed With Stable Disruption Pelvis Ring Initial (HCC) 10. Dysphagia [R13.10] 11. Decline Cognitive [R41.81] 12. 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 Subarachnoid Hematoma Trauma Without Loss Of Consciousness Subsequent [S06.6X0D] 14. Lack Of Coordination [R27.9] 15. Other Abnormalities Of Gait And Mobility [R26.89] 16. 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 Delirium [R41.0] History of Present Illness: Pt is an 83 year old male with no known medical history who presented to the hospital on 11/22 following a fall from approximately 6 feet off a ladder. He landed on his leftside and hit his head. He is amnesic to the events. Per his there are concerns that he may have dementia, but does not see a primary care physician. Trauma scans reeleaved: small amount of layering blood products in the occipital horn of the left lateral ventricle, small cortical hemorrhage versus focal subarachnoid hemorrhage anterior left frontal lobe, left pelvic fractures with associatedleft retroperitoneal hematoma, intramuscular hematomas involving the left gluteus and iliopsoas musc les and nondisplaced left anterior sixth rib fracture. Pt is s/p ORIF of the left acetabulum. Onset Date: 11/23/23 Patient/Caregiver Goals: Pt goal to return home. Patient Comments: Patient greeted at bedside and agreeable to treatment with encouragement. Precautions Weight Bearing Status: TTWB LLE - difficulty maintaining this Other Precautions: Fall risk, cognition, aspiration Fall Risk (65 and older) Fall in the last 12 months: Yes Did you have an injury with the fall?: Yes Are you fearful of falling?: Yes OBJECTIVE Pain: Patient reports mild pain with hip flexion on left and improved with smaller range of motion.Patient weight shifted to left in recliner with off loading of right hip. Vitals: Not indicated at this time Bed Mobility - Supine to Sit # of Assistants: 1 Level of Assistance: Minimal assistance Device: Head of bed elevated Cuing: Verbal, Tactile Comments: Joeyyth head of bed raised patient able to bring lower extremities over edge of bed with min assist of left leg. Min assist at trunk for stability with patient pushing up into sitting. Sit to Stand Transfers # of Assistants: 1 Transfer Surface: Bed, Chair Transfer Equipment: Gait belt, Front wheeled walker Level of Assistance: Moderate assistance Assessment/Delivery: Assessed, Instructed, Therapist assisted, Facilitated Comments: Initial standing with right foot on pillow and verbal cues not to squish pillow for TTWB.Patient with difficulty following cues and switched to left foot on DIRECT SUPPORT WORKER's foot to monitor weight bearing and verbal cues for TTWB. Patient able to stand for short time 15-20 seconds with NWB left lower extremity. He is unable to maintain TTWB with verbal and physical cues. Stand to Sit Transfers # of Assistants: 1 Transfer Surface: Bed Transfer Equipment: Gait belt, Front wheeled walker Level of Assistance: Moderate assistance Assessment/Delivery: Instructed, Assessed, Therapist assisted, Facilitated Comments: Assisted with slowed descent and guiding hips back onto bed Bed, Chair, Wheelchair Transfers # of Assistants: 2 Transfer Surface: Chair Transfer Approach: To Transfer Equipment: Front wheeled walker Level of Assistance: Moderate assistance Assessment/Delivery: Assessed, Instructed, Therapist assisted, Facilitated Comments: Assist for TTWB on left and verbal and physical cues to pivot to his right to chair with mod 2 assist for stability and TTWB. Balance Retraining Sitting: Static, Midline orientation (comment), Anterior/posterior leans Static Standing Balance: Static standing Static Standing Balance Comments: Facilitation privded to maintain weigh tthrough RLE. BUE support through front wheeled walker and physical assist for TTWB left. Seated Exercise - Side Addressed: Right, Left Sitting Surface: Chair Seated Exercise: Marching, Long arc quads Exercise Mode: Active motion against gravity Sets/Repetitions: 10x2 Seated Exercise Comments: Physical and visual cues for exercises Patient/Family Training: Ongoing education and training on TTWB with standing and transfers activities. At the end of today's therapy session patient was left seated in bedside chair 1:1 staff present with an appropriate call light within reach. Patient's needs and questions addressed during today's session. Assessment Patient initially resistant to treatment but agreeable with encouragement. He demonstrates difficulty with maintaining TTWB with mobility. When asked how much weight he can put on left foot patient states no more than 10#. Nursing reports ongoing pain with roll to his right with bed mobility. Nursing to continue with ceiling left as patient is unable to maintain TTWB with standing and transfers. He is functioning below his baseline and will benefit from ongoing physical therapy progressing per plan of care as patient in able. Barriers to a safe discharge home: Barriers to Discharge Home: Current functional status, Fall risk, Safety concerns Comorbid Conditions: None Personal Factors: Age, Balance impairment, History of falls, Needs assistive device Discharge Therapy Needs - PT: Ongoing skilled physical therapy Level of Care Needed - PT: Assistance with bed mobility, Assistance with transfers (Comment), Assistance with walking and moving around the home, Assistance with stairs, Physical assistance needed, Cognitive assistance needed Skilled therapy can include physical therapy provided by home health, outpatient clinic, or a post-acute facility. The location of these services is determined by the patient's care team in partnership with patient/family. Functional Goals and Timeframes: PT Goal #1: Patient will demonstrate independence with supine to/from sit transfer without use of hospital bed features to progress functional mobility and return to prior level of function. PT Goal #1 Status: Slowly progressing PT Goal #2: Patient will demonstrate functional transfers with moderate assitance with least restrictive assistive device while maintaining TTWB on LLE to progress functional mobility and facilitate return to prior level of function. PT Goal #2 Status: Slowly progressing PT Goal #3: Patient will ambulate 10ft or greater with least restrictive assistive device while maintaining TTWB on LLE with minimal assistance in order to progress functional mobility and facilitatereturn to prior level of function. PT Goal #3 Status: Ongoing Progress: Slow progress, cognitive deficits Plan Patient agrees with the plan of care and goals. Treatment Plan: PT Frequency: 5 times per week PT Amount: 1 visit per day PT Inpatient Duration : Until goals are met or hospital discharge Plan: Continue with current plan PT Plan Comments: Skilled physical therapy to promote safety and independence with functional mobility, decrease fall risk, determine appropriate durable medical equipment needs, and aid with discharge planning Treatment interventions may include: Treatment/Interventions: Therapeutic exercise, Therapeutic functional activity, Neuromuscular re-education, Gait training DIRECT SUPPORT WORKER Visit Trackin Time Spent with Patient Therapeutic Interventions Therapeutic Activity (min): 20 min Therapeutic Exercise (min): 10 min Time Tracking Total Timed Units (min): 30 min Total Treatment Time (min): 30 min Maria Del Carmen Daiz P.T.A. * Chavez Ashby Jr., LOC, C.N.P., M.S.N. - 12/08/2023 8:37 AM CDT Trauma Daily Progress Note ([phone]) Admission Date/Time: 11/23/2023 12:47 PM SUBJECTIVE No major changes over the past 24 hours. Patient has been more appropriate and less impulsive in comparison to prior days. No issues in the overnight hours with impulsivity. Does have some ongoing difficulty with urinating requiring in and out catheterization. He is remained hemodynamically stable and afebrile. T- max 36.8??. Oral intake 1020 cc and greater than 75% of his meals. 2.1 L urinary output yesterday. Passing flatus with 3 bowel movements. Continues on individual segment given impulsive activity. Temperature: [36.1 ??C-36.8 ??C] 36.5 ??C Resp Rate: [16-18] 18 Blood Pressure: (104-141)/(48-80) 141/59 SpO2: [94 %-98 %] 96 % Pulse Rate: [73-91] 76 Date 12/07/23699 - 12/08/2365812/08/23 07 - 12/09/23 0659 Shift 1903-7135 9941-5177 7263-9099 24 Hour Total 8515-3140 0571-7820 2500-2151 24 Hour Total INTAKE P.O. 600 600 Shift Total(mL/kg) 600(6.4) 600(6.4) OUTPUT Urine(mL/kg/hr) 700(0.9) 975(1.3) 500(0.7) 2175(1) 500 500 Shift Total(mL/kg) 700(7.5) 975(10.4) 500(5.4) 2175(23.3) 500(5.4) 500(5.4) Weight (kg) 93.4 93.4 93.4 93.4 93.4 93.4 93.4 93.4 OBJECTIVE PHYSICAL EXAM: Overall Appearance: Resting in bed comfortably. No acute distress. Cooperative and pleasant. Cardiovascular: Normal rate and rhythm. Thorax & Lungs: Regular effort on room air. No adventitious sounds upon auscultation posteriorly. Strong cough upon command. Abdomen: Soft, nontender, nondistended. Lower trends 1st left lateral incision remains approximatedwith inna. No erythema or induration. Extremities: Warm well perfused. Neurosensory/Psych: Cooperative and pleasant. Alert to person and time but not place. Follows commands. ASSESSMENT / PLAN IMPRESSION & REPORT: - No major changes in the plan of care today - Continue to optimize sleep/wake cycle - Try to minimize time spent in bed - Attempt to void; possible voiding trials PLAN: Mechanism: Fall from 6 ft ladder - TTS: 11/24 - SAS: 11/23 - FRAIL Score: Geriatrics consulted; following #1 History Of Falling - Care management consulted; SNF referrals pending - PMR PT/OT consulted #2 Subarachnoid Hematoma Trauma Without Loss Of Consciousness Subsequent #3 Contusion Scalp Initial Large left frontal scalp hematoma Small cortical hemorrhage vs focal subarachnoid hemorrhage (left frontal lobe - Neurosurgery Chief C consulted - Repeat Head CT (11/23): slight increase in IVH in the occipital horn of the left lateral ventricle - Serial head CT's were obtained and on 11/[address] showed decreased small amounts of blood products and no new hemorrhage - Started on DVT chemoprophylaxis 30 mg Lovenox bid on 11/29 evening --> was noted to have more significant altered mental status than usual the morning of 11/30 and a repeat Head CT was emergentlyobtained and was stable for DVT chemoprophylaxis was resumed 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) - PMR TBI consulted - Education given on concussion and TBI symptoms; was unable to be present during the assessment so minimal information given d/t his baseline cognition - Team will continue to following and assess the ongoing therapy and rehab needs #5 Thrombosis Deep Vein Lower Extremity Left (HCC) Acute soleal vein DVT; left leg - Currently on Lovenox 30 mg bid for DVT chemoprophylaxis - BLE US (11/27): acute DVT LLE soleal vein - Repeat US Bilateral LE (12/04): unchanged acute DVT in the left soleal vein - Due to the distal nature of the DVT and recurrent falls we will not fully anticoagulate the pt based on the stability of this repeat ultrasound #6 Fracture Rib One Open Initial Left #7 Atelectasis #8 Effusion Pleural Nondisplaced, left 6th rib fracture - Started on rib fracture protocol but unable to participate d/t cognition - Continue with encouraging pulmonary hygiene as able (IS/deep breathing/coughing/CPAP) - No follow up required in the TMLP clinic for the one rib fracture #9 Fracture Acetabulum Other Closed Initial Left ([facility]) #10 Fracture Pelvis Multiple Closed With Stable Disruption Pelvis Ring Initial ([facility]) #11 Fracture Ilium Closed Initial Left ([facility]) Multiple comminuted fractures of the left anterior & posterior pubic rami, acetabulum & iliac wing extending into the left SI joint w/ hemorrhage noted in the left retroperitoneum - OTS- 1 consulted - OR (11/24): ORIF of the left associated both column acetabular fracture (Dr. Higuera) via limited ilioinguinal w/ ASIS osteotomy plus Stoppa approach; closed over drains w/ iVAC - TTWB LLE - PMR PT/OT consulted; d/t cognition does not fully understand weight bearing restrictions & kimberlee heavy 2 assist currently - Has had 2 falls (assisted to the ground slowly w/o striking the ground) over the past few days with impulsively trying to get up --> has a 1:1 sitter at bedside - Pelvis x-rays obtained (12/03): surgical hardware intact - Davol drain and vac removed 12/04 - Will require follow up in the OTS clinic after dismissal; their team will order the follow up #12 Anemia Posthemorrhagic Acute (Blood Loss Anemia) #13 Postprocedural Hemorrhagic Shock Initial; resolved - No signs or symptoms of bleeding - Check CBC is clinically indicated 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 I discussed potential options for a safe transition to close observation that could include increasing sensitivity on his bed alarm, re-direction with activities located on his bedside tray table, weighted blankets, and continuing low bed with mat. The charge nurse will evaluate potential options and how they could be implemented - Initiated sleep enhancement protocol - Discontinued oxycodone and olanzapine given no use - Started ramelteon 8 mg at bedtime - Discontinued melatonin #17 Dysphagia - OT Dysphagia consulted; following - Currently on a IDDSI Level 6 Soft & Bite sized with thin liquids - Aspiration precautions & medications with purees - High impulsivity and takes very large bites/multiple bites prior to swallowing, recommending supervision with meals #18 Retention Urinary - Started on Flomax & Finasteride this admission and have increased to 0.8 mg - On a voiding schedule; will increase to every 6 hours to trial voiding and then bladder scanning and straight cathing per Geriatric recommendations - Cathed for 2300 mL and spontaneously voided 75 mL in the past 24 hours - Will consider a Urology consult if continues to not have improvement in spontaneously voiding in the upcoming days #19 Discharge Planning I was able to meet with the patient and his to discuss discharge planning. All are in agreement that pursuing retirement facility placement to focus on rehabilitation. Vision is does add that she would limit his admission to three-month and then wishes to take him home to [place] with family support as well as home health care if needed. I reviewed these updates with social work as well as the charge nurse to continue pursuing placement options in the area and we will look to weaned towards closed observation as safely able in the context of 2 recent guided falls. Please feel free to page me at [phone] between [phone]. If unable to reach me please page the [facility] at [phone] with any questions in regards to the plan of care. * Alexi Khan M.D. - 12/07/2023 7:24 PM CDT I saw and examined the patient along with the resident/AIR HOLE DRILLER-PA team and agree with the findings and recommendations in their note. I reviewed pertinent history, physical exam, labs, and imaging. Mr. Carlos Alberto Grayson is a 83 y.o. male admitted on 11/23/2023 after a fall. He suffered a TBI and pelvicfracture. He has undergone ORIF of the acetabulum. At this time he is medically ready for discharge and we anticipate transfer to SNF. Alexi Khan MD, FACS Bandsaw Operator greenhouse staff, [facility] Division of Trauma, Critical Care and General Surgery; Department of Surgery (Pager) (office) fax [email or web address] * Alexi Hahn Financial Reporting Consultant - 12/07/2023 10:45 AM CDT [facility] Spiritual Care Consult Note Patient: Carlos Alberto Grayson Age:83 y.o. Location: [address] Reason(s) for encounter: Spiritual Care contact for ongoing spiritual care. Summary: I was able to meet with Carlos Alberto Grayson . At the time of the visit the patient said that he had only been in the hospital for 30 minutes. He seemed pleasantly confused. He did engage with the curing press maintainer on a spiritual conversation level. A prayer was said at the bedside. Financial Reporting Consultant Jamil was present and his AUTOMATIC LEHR OPERATOR was in the room with him. Spiritual Assessment Anabaptism Identification / Spiritual Practices: He was a Restorationist and he seems to have a Mormon background. Spiritual Care interventions: Facilitated jain/spiritual practices (prayer, blessing, sacred texts, jain item) with theaim to reinforce patient's spiritual wellness and connection with source of sacredness. Spiritual Care outcomes: Patient/family expressed feeling comforted by prayer Patient/family was appreciative of spiritual care support. Spiritual Care Plan / Recommendations: Will remain available for spiritual care as needed or requested. Chaplains can be contacted by paging [phone] ([place]) or [phone] (Judaism). * Nurys Cifuentes P.A.-C. - 12/07/2023 10:25 AM CDT Geriatrics Consult - Progress Note SUBJECTIVE Mr. Grayson was seen and evaluated on geriatric rounds this morning. Upon arrival, he was lying inbed and had completed eating breakfast. He reports that he slept okay, has a feeling he has to defecate. I have reviewed the current medication list. OBJECTIVE VITAL SIGNS Temperature: [36.1 ??C-36.8 ??C] 36.8 ??C Resp Rate: [16-18] 16 Blood Pressure: (109-140)/(48-80) 124/56 SpO2: [94 %-97 %] 97 % Pulse Rate: [73-90] 73 PHYSICAL EXAM General: Alert, interactive, not acutely ill, no apparent distress. ENT: DIOMEDE Lungs: Normal rate and effort Heart: No extremity edema. Abdomen: nondistended, nontender Mental: Attention intact (completed backwards days and months May-Mar) No evidence of disorganized thinking. RASS 0. Converses well. DIAGNOSTICS I have independently reviewed labs over 24 hrs. ASSESSMENT / PLAN Mr. Grayson is hospitalized on [facility] Trauma for evaluation and management of: Fracture Ilium Closed Initial Left (HCC). 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 Comorbidities include (collateral received from Mikayla- retired nurse) known cognitive impairment with significant short-term memory issues (independent with most IADLs and ADLs except finances), cataracts, macular degeneration, hard of hearing, BPH. He fell from a ladder while attempting to repair a leak on his roof. Sustained SAH, IVH, left 6th rib fracture, left complex pelvic fracture s/p ORIF 11/24. Course c/b left lower soleal vein DVT, hemorrhagic shock ( 7 units PRBCs, 2 units cell saver, 2 units FFPs, platelets 2 units), hypotension (resolved), hypoxic respiratory failure (resolved), urinary retention in the setting of known BPH requiring q.4 hours I&O cathing (recently started on tamsulosin, finasteride added 12/01), delirium (requiring IA and non violent restraints). 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 He was briefly on suvorexant and ramelteon->melatonin. Melatonin increased on 12/[address] head after initiation of DVT ppx showed stable intracranial hemorrhage. Delirium continues to improve, and we are likely at his baseline, confirmedby his as well. He was however, has been starting to struggle again with sleep after transitioned back to melatonin. All abnormality on we will likely not be a solution at discharge, would recommend continuing while inpatient. We will discuss with nursing regarding optimizing his I&O cathing scheduled to ensure proper emptying and not waking overnight. He was medically ready for discharge and patient and his have decided to pursue SNF for rehab with eventual goal of returning homewith home health care. RECOMMENDATIONS: Recommend ordering sleep enhancement Will discuss w/nursing regarding optimizing of cathing schedule and how best to order to ensure sufficient emptying and not waking overnight to catheterization Ideally schedule would be early in the morning once wakes, 10a, 4p, 10p Goal post void residual <400 cc Continue new tamsulosin and finasteride Continue to offer urinal multiple times per day and before straight cathing Recommend discontinuation of melatonin and restart ramelteon 8 mg at HS Has not required p.r.n. oxycodone or olanzapine, recommend discontinuation of these General delirium prevention/management strategies: Minimize RAILWAY SWITCHMAN-acting medications. Increase mobility to match ability. Frequent reorientation. Provide moderate level of social and cognitive stimulation. Treat dehydration and constipation. Nonpharmacologic sleep promotion strategies. The above plan of care was discussed with Dr. Coello, HIM programmer analyst consultant. I personally spent a total of 35 minutes providing and coordinating care today. Thank you for the opportunity to care for this patient. We will continue to follow with you. Pleasepage the Geriatrics Consult Service at [phone] with any questions or concerns. * Hayley Durham L.G.S.W., M.S.W. - 12/07/2023 10:03 AM CDT SUBJECTIVE Social Work contacted [employer] regarding insurance coverage listed on patient's facesheet and . Social Work communicated with [facility], [facility], and [facility].Social Work resent referral package to [facility], [facility], and [facility]. Social Work sent referrals to [facility], [facility], [facility], [facility], and [facility]. Social Work spoke with patient's on the phone. Social Work discussed the challenges of finding a placement due to raulito th cognitive and physical challenges of patient. She is supportive of patient placement in SNF/swing bed/veterans home for 0-3 months for PT/OT rehab followed by returning to home at that time. It isinconsequential to her whether he is ambulatory or bed-ridden at that time. She is not concerned with his Alzheimer's progression regarding return to home. She will be available to provide 24/7 presence between herself, paid help, [place] home health care (20+ hours per week), and hoahaoism friends. 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 She is comfortable with cathing, hoier lifts, slings, wheelchairs, etc. [facility] with providing a hoier lift, sling, wheelchairs, walkers, incontinence supplies, and hospital bed. This can take some time to arrange, perhaps up to one month. Patient's will contact [place] Electronics Tech Clara regarding this on 12/08/23. Patient's is not agreeable to patient discharging to Memory Care facility. She expresses, No way adamantly several times throughout the conversation. She shares, Many people care for their loved ones in complete Alzheimer's at home. Patient shares that she has no mobility difficulty at home and shops, goes outside, cooks, does not use a walker or wheelchair, etc. Patient's shares she is 10 years younger than her . OBJECTIVE Patient is considered medically ready for discharge. He continues to await safe discharge plan. Referrals sent: [facility] - will assess if off of Safety Plan [facility] [address] [facility] Detention and Short Term Rehabilitation ACO - DECLINED (full) [facility]-DECLINED (they do not accept for short term rehab) [facility] - DECLINED (cannot provide for patient's needs) [facility] -DECLINED (facility full) [facility]-DECLINED (facility full) [facility] - DECLINED (acuity too high) [facility] - DECLINED (bed not available) [facility] [address] - DECLINED (full) [facility] [place] - DECLINED (patient needs) ASSESSMENT / PLAN ASSESSMENT Patient's continues to collaboratively plan for patient's safe discharge plan. PLAN Patient's desires patient to discharge to retirement facility with PT/OT for 0-3 months. She endorses broad referrals throughout [place] and into [place] if necessary. She is interested in nursing homes/critical access hospitals/'s homes. [place] PAS: Conformation is: [id number] Patient's would like patient to return to home with home health care if retirement facility is not available. The [place] system can assist patient with necessary equipment and supplies. Patient's is not agreeable to Memory Care placement. Social Work will continue to assist with discharge needs. Social Work will continue to follow to provide support. Aimee Ahuja, M.S.W. 12/07/23 * Chavez Ashby Jr., LOC, C.N.P., M.S.N. - 12/07/2023 7:16 AM CDT Trauma Daily Progress Note ([phone]) Admission Date/Time: 11/23/2023 12:47 PM SUBJECTIVE Mr. Grayson is currently hospital day 14 for ongoing management of injuries sustained from a fall from standing height. No major events over the past 24 hours. Remains hemodynamically stable and afebrile. Not requiring supplemental oxygen. No endorsement of pain. Does continue on individual assignments given in pulsatility in delirium. Has not required any intervention overnight hours. Redirectable but requires persistent redirecting. Continues to have an improvement with his oral intake with 1.1 L in yesterday. Maintaining adequate urinary output but does require in and out catheterization.Passing flatus and multiple bowel movements per day. Lab Review: Recent Results (from the past 24 hour(s)) Basic Metabolic Panel Collection Time: 12/06/23 9:06 PM Result Value Potassium, S 4.5 Sodium, S 137 Chloride, S 102 Bicarbonate, S 27 Anion Gap 8 BUN (Blood Urea Nitrogen), S 27 (H) Creatinine 1.03 Estimated GFR (eGFR) 73 Calcium, Total, S 7.9 (L) Glucose, S 117 Temperature: [36.1 ??C-37.1 ??C] 36.5 ??C Resp Rate: [12-18] 17 Blood Pressure: (98-140)/(47-80) 113/80 SpO2: [94 %-98 %] 94 % Pulse Rate: [66-90] 80 Date 12/06/23 0700 - 12/07/23 0659 12/07/23 07 - 12/08/23 0659 Shift [id number] 9075-8662 1960-1984 24 Hour Total 4255-7327 5529-8308 5864-3889 24 Hour Total INTAKE P.O. 888 590 5141 Shift Total(mL/kg) 900(9.6) 250(2.7) 1150(12.3) OUTPUT Urine(mL/kg/hr) 500(0.7) 400(0.5) 600(0.8) 1500(0.7) Shift Total(mL/kg) 500(5.4) 400(4.3) 600(6.4) 1500(16.1) Weight (kg) 93.4 93.4 93.4 93.4 93.4 93.4 93.4 93.4 OBJECTIVE PHYSICAL EXAM: Overall Appearance: Resting in bed comfortably. No acute distress. Cooperative and pleasant. Cardiovascular: Normal rate and rhythm. Thorax & Lungs: Regular effort on room air. No adventitious sounds upon auscultation posteriorly. Strong cough upon command. Abdomen: Soft, nontender, nondistended. Lower trends 1st left lateral incision remains approximatedwith inna. No erythema or induration. Extremities: Warm well perfused. Neurosensory/Psych: Cooperative and pleasant. Alert to person and time but not place. Follows commands. Imaging: DX Chest Portable 1 View Result Date: 12/06/2023 Impression: Since December 03, 2023, Decreased perihilar and bibasilar atelectasis. Low lung volumes accentuate the cardiomediastinal silhouette. US Lower Extremity Veins Bilateral Result Date: 12/05/2023 Impression: Unchanged acute DVT in the left soleal vein and in a small adjacent venous branch. ASSESSMENT / PLAN IMPRESSION & REPORT: Per recommendations from Geriatrics we will do the following: Initiate sleep enhancement protocol Discontinue oxycodone and olanzapine given no use Start ramelteon 8 mg at bedtime Discontinue melatonin Remains medically ready for discharge with the exception of safety plan with impulsiveness Continue to encourage oral intake; improvement with renal functioning; no plans for repeat studies at this juncture. PLAN: Mechanism: Fall from 6 ft ladder - TTS: 11/24 - SAS: 11/23 - FRAIL Score: Geriatrics consulted; following #1 History Of Falling - Care management consulted; SNF referrals pending - PMR PT/OT consulted #2 Subarachnoid Hematoma Trauma Without Loss Of Consciousness Subsequent #3 Contusion Scalp Initial Large left frontal scalp hematoma Small cortical hemorrhage vs focal subarachnoid hemorrhage (left frontal lobe - Neurosurgery Chief C consulted - Repeat Head CT (11/23): slight increase in IVH in the occipital horn of the left lateral ventricle - Serial head CT's were obtained and on 11/[address] showed decreased small amounts of blood products and no new hemorrhage - Started on DVT chemoprophylaxis 30 mg Lovenox bid on 11/29 evening --> was noted to have more significant altered mental status than usual the morning of 11/30 and a [address] Head CT was emergentlyobtained and was stable for DVT chemoprophylaxis was resumed 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) - PMR TBI consulted - Education given on concussion and TBI symptoms; was unable to be present during the assessment so minimal information given d/t his baseline cognition - Team will continue to following and assess the ongoing therapy and rehab needs #5 Thrombosis Deep Vein Lower Extremity Left (HCC) Acute soleal vein DVT; left leg - Currently on Lovenox 30 mg bid for DVT chemoprophylaxis - BLE US (11/27): acute DVT LLE soleal vein - Repeat US Bilateral LE (12/04): unchanged acute DVT in the left soleal vein - Due to the distal nature of the DVT and recurrent falls we will not fully anticoagulate the pt based on the stability of this repeat ultrasound #6 Fracture Rib One Open Initial Left #7 Atelectasis #8 Effusion Pleural Nondisplaced, left 6th rib fracture - Started on rib fracture protocol but unable to participate d/t cognition - Continue with encouraging pulmonary hygiene as able (IS/deep breathing/coughing/CPAP) - No follow up required in the LP clinic for the one rib fracture #9 Fracture Acetabulum Other Closed Initial Left ([facility]) #10 Fracture Pelvis Multiple Closed With Stable Disruption Pelvis Ring Initial ([facility]) #11 Fracture Ilium Closed Initial Left ([facility]) Multiple comminuted fractures of the left anterior & posterior pubic rami, acetabulum & iliac wing extending into the left SI joint w/ hemorrhage noted in the left retroperitoneum - OTS- 1 consulted - OR (11/24): ORIF of the left associated both column acetabular fracture (Dr. Higuera) via limited ilioinguinal w/ ASIS osteotomy plus Stoppa approach; closed over drains w/ iVAC - TTWB LLE - PMR PT/OT consulted; d/t cognition does not fully understand weight bearing restrictions & kimberlee heavy 2 assist currently - Has had 2 falls (assisted to the ground slowly w/o striking the ground) over the past few days with impulsively trying to get up --> has a 1:1 sitter at bedside - Pelvis x-rays obtained (12/03): surgical hardware intact - Davol drain and vac removed 12/04 - Will require follow up in the OTS clinic after dismissal; their team will order the follow up #12 Anemia Posthemorrhagic Acute (Blood Loss Anemia) #13 Postprocedural Hemorrhagic Shock Initial; resolved - No signs or symptoms of bleeding - Check CBC is clinically indicated 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 I discussed potential options for a safe transition to close observation that could include increasing sensitivity on his bed alarm, re-direction with activities located on his bedside tray table, weighted blankets, and continuing low bed with mat. The charge nurse will evaluate potential options and how they could be implemented #17 Dysphagia - OT Dysphagia consulted; following - Currently on a IDDSI Level 6 Soft & Bite sized with thin liquids - Aspiration precautions & medications with purees - High impulsivity and takes very large bites/multiple bites prior to swallowing, recommending supervision with meals #18 Retention Urinary - Started on Flomax & Finasteride this admission and have increased to 0.8 mg - On a voiding schedule; will increase to every 6 hours to trial voiding and then bladder scanning and straight cathing per Geriatric recommendations - Cathed for 2300 mL and spontaneously voided 75 mL in the past 24 hours - Will consider a Urology consult if continues to not have improvement in spontaneously voiding in the upcoming days #19 Discharge Planning I was able to meet with the patient and his to discuss discharge planning. All are in agreement that pursuing retirement facility placement to focus on rehabilitation. Vision is does add that she would limit his admission to three-month and then wishes to take him home to [place] with family support as well as home health care if needed. I reviewed these updates with social work as well as the charge nurse to continue pursuing placement options in the area and we will look to weaned towards closed observation as safely able in the context of 2 recent guided falls. Please feel free to page me at [phone] between [phone]. If unable to reach me please page the [facility]-Trauma Service at [phone] with any questions in regards to the plan of care. * Hayley Durham L.G.Ashia.Josephine., M.S.W. - 12/06/2023 3:03 PM CDT SUBJECTIVE Social Work communicated with Service and Nursing regarding discharge needs. Service reports patient's indicates patient has returned to baseline and patient is medically ready for discharge. Patient's previously has expressed desire for patient to return home with home care. Social Work spoke with staff at [facility], [facility], and [facility] regardingprevious referrals. Social Work resent referral to those three facilities. Social Work sent referrals to [facility] [address], [facility], [facility], [facility], [facility], [facility], and [facility]. OBJECTIVE Patient is now considered medically ready for discharge. Referrals sent: [facility] [address] [facility] and Short Term Rehabilitation ACO [facility] [place] [facility] (facility full) [facility] -DECLINED (facility full) [facility] (they do not accept for short term rehab) [facility] - SNF ASSESSMENT / PLAN ASSESSMENT Patient's is collaboratively planning appropriately for patient's discharge needs. PLAN Patient will discharge to retirement facility for short term rehab. Social Work will continue to assist with discharge needs. Social Work will continue to follow to provide support. Aimee Ahuja, M.S.W. 12/06/23 * Kavon Mancilla APRN, C.N.P., D.N.P. - 12/06/2023 2:09 PM CDT Images from the original note were not included. SUBJECTIVE I met and examined Mr. Grayson this morning. Mr. Grayson is hospital day 13 for management of histraumatic injuries following fall from 6 ft off a ladder. No events overnight. He remains hemodynamically stable and afebrile. The bedside AUTOMATIC LEHR OPERATOR states that the patient slept ok overnight and was unable to quantify duration of sleep. She adds that the patient was not restless overnight and did not try and get out of bed. He is tolerating his dysphagia diet with 440 cc oral intake yesterday and denies nausea this morning. He is passing flatus and had 1 bowel movement yesterday. He denies shortness of breath and oxygen saturations are adequate on room air. His incisional wound VAC and drain were removed by Orthopedics last evening. He continues to require in and out catheterizations for urinary retention. He had no spontaneous voids documented yesterday. Of note his creatinine increased to 1.17 from 0.99 likely due to poor oral intake over multiple days. Discussed with bedside AUTOMATIC LEHR OPERATOR about encouraging oral intake. OBJECTIVE Temperature: [36.3 ??C-37.1 ??C] 36.6 ??C Resp Rate: [12-18] 16 Blood Pressure: (98-114)/(47-53) 114/53 SpO2: [95 %-98 %] 95 % Pulse Rate: [66-80] 69 Constitutional Appearance: He is not ill-appearing. Eyes Pupils: Pupils are equal, round, and reactive to light. Cardiovascular Rate and Rhythm: Normal rate and regular rhythm. Pulses: Normal pulses. Pulmonary Effort: Pulmonary effort is normal. No respiratory distress. Breath sounds: Normal breath sounds. Comments: Symmetric chest wall expansion, strong inspiratory effort and strong nonproductive cough. Abdominal General: There is no distension. Palpations: Abdomen is soft. Tenderness: There is no abdominal tenderness. There is no guarding or rebound. Musculoskeletal Comments: Neurovascularly intact all extremities Skin General: Skin is warm and dry. Capillary Refill: Capillary refill takes less than 2 seconds. Comments: Left flank ecchymosis Neurological Mental Status: He is alert. Comments: Alert to person and time. Disorganized thought process and non-linear conversations. Follows commands to all extremities Diagnostics I have reviewed labs and xray ASSESSMENT / PLAN Diet: Adult Diet Dysphagia; Thin (TN0); Soft and Bite-Sized (SB6) Activity: Up w/ assistance, TTWB LLE Pain regimen: tylenol, triple pain cream, Lidoderm patch, oxycodone prn Bowel regimen: bisacodyl suppository, milk of mag, MiraLAX, senokot VTE chemoprophylaxis: Lovenox 30 mg bid GI prophylaxis: none Antibiotics: none Microbiology: none Dispo: SNF; referrals pending Today's plans: - Continue to work on redirecting as able - Discuss options to wean 1:1 with the charge nurse. This could include increasing the sensitivity on the bed alarm, re-direction with activities located on his bedside tray table, weight blankets, continuing low bed with mat, or other options. - Discussed discharge planning with the patient's , see below - Encourage oral intake with increase in creatinine. Likely related to low oral intake the last 2 days. states he isn't a water drinker. Prioritize boost/ensure supplements Mechanism: Fall from 6 ft ladder - TTS: 11/24 - SAS: 11/23 - FRAIL Score: Geriatrics consulted; following #1 History Of Falling - Care management consulted; SNF referrals pending - PMR PT/OT consulted #2 Subarachnoid Hematoma Trauma Without Loss Of Consciousness Subsequent #3 Contusion Scalp Initial Large left frontal scalp hematoma Small cortical hemorrhage vs focal subarachnoid hemorrhage (left frontal lobe - Neurosurgery Chief C consulted - Repeat Head CT (11/23): slight increase in IVH in the occipital horn of the left lateral ventricle - Serial head CT's were obtained and on 11/[address] showed decreased small amounts of blood products and no new hemorrhage - Started on DVT chemoprophylaxis 30 mg Lovenox bid on 11/29 evening --> was noted to have more significant altered mental status than usual the morning of 11/30 and a repeat Head CT was emergentlyobtained and was stable for DVT chemoprophylaxis was resumed 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) - PMR TBI consulted - Education given on concussion and TBI symptoms; was unable to be present during the assessment so minimal information given d/t his baseline cognition - Team will continue to following and assess the ongoing therapy and rehab needs #5 Thrombosis Deep Vein Lower Extremity Left (HCC) Acute soleal vein DVT; left leg - Currently on Lovenox 30 mg bid for DVT chemoprophylaxis - BLE US (11/27): acute DVT LLE soleal vein - Repeat US Bilateral LE (12/04): unchanged acute DVT in the left soleal vein - Due to the distal nature of the DVT and recurrent falls we will not fully anticoagulate the pt based on the stability of this repeat ultrasound #6 Fracture Rib One Open Initial Left #7 Atelectasis #8 Effusion Pleural Nondisplaced, left 6th rib fracture - Started on rib fracture protocol but unable to participate d/t cognition - Continue with encouraging pulmonary hygiene as able (IS/deep breathing/coughing/CPAP) - No follow up required in the [facility] clinic for the one rib fracture #9 Fracture Acetabulum Other Closed Initial Left ([facility]) #10 Fracture Pelvis Multiple Closed With Stable Disruption Pelvis Ring Initial ([facility]) #11 Fracture Ilium Closed Initial Left ([facility]) Multiple comminuted fractures of the left anterior & posterior pubic rami, acetabulum & iliac wing extending into the left SI joint w/ hemorrhage noted in the left retroperitoneum - OTS- 1 consulted - OR (11/24): ORIF of the left associated both column acetabular fracture (Dr. Higuera) via limited ilioinguinal w/ ASIS osteotomy plus Stoppa approach; closed over drains w/ iVAC - TTWB LLE - PMR PT/OT consulted; d/t cognition does not fully understand weight bearing restrictions & kimberlee heavy 2 assist currently - Has had 2 falls (assisted to the ground slowly w/o striking the ground) over the past few days with impulsively trying to get up --> has a 1:1 sitter at bedside - Pelvis x-rays obtained (12/03): surgical hardware intact - Davol drain and vac removed 12/04 - Will require follow up in the OTS clinic after dismissal; their team will order the follow up #12 Anemia Posthemorrhagic Acute (Blood Loss Anemia) #13 Postprocedural Hemorrhagic Shock Initial; resolved - no signs or symptoms of bleeding - check CBC is clinically indicated 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) #15 Encephalopathy Metabolic #16 Delirium - Geriatric Medicine consulted; following - Stopped ramelteon d/t more alerted mental status on 12/01 but continuing with melatonin (increased to 6 mg at bedtime per Lisbeth recashia) and prn olanzapine (agitation) - Continuing with delirium prevention and sleep enhancement as able - Patient is currently 1:1. I discussed potential options for a safe transition to close observation that could include increasing sensitivity on his bed alarm, re-direction with activities located on his bedside tray table, weighted blankets, and continuing low bed with mat. The charge nurse will evaluate potential options and how they could be implemented #17 Dysphagia - OT Dysphagia consulted; following - Currently on a IDDSI Level 6 Soft & Bite sized with thin liquids - Aspiration precautions & medications with purees - High impulsivity and takes very large bites/multiple bites prior to swallowing, recommending supervision with meals #18 Retention Urinary - Started on Flomax & Finasteride this admission and have increased to 0.8 mg - On a voiding schedule; will increase to every 6 hours to trial voiding and then bladder scanning and straight cathing per Geriatric recommendations - Cathed for 2300 mL and spontaneously voided 75 mL in the past 24 hours - Will consider a Urology consult if continues to not have improvement in spontaneously voiding in the upcoming days #19 Discharge Planning I was able to meet with the patient and his to discuss discharge planning. All are in agreement that pursuing retirement facility placement to focus on rehabilitation. Vision is does add that she would limit his admission to three-month and then wishes to take him home to [place] with family support as well as home health care if needed. I reviewed these updates with social work as well as the charge nurse to continue pursuing placement options in the area and we will look to weaned towards closed observation as safely able in the context of 2 recent guided falls. If you have any questions or concerns please page the Trauma Service at [phone] * Raegan Drew P.T., D.P.T. - 12/06/2023 1:30 PM CDT Physical Therapy Acute Hospital Inpatient Treatment SUBJECTIVE Patient's Name: Carlos Alberto Grayson Reason for Referral: PT eval and treat - brain consult Medical Diagnosis: 1. Fracture Ilium Closed Initial Left (HCC) 2. History Of Falling 3. Retroperitoneal Hematoma 4. Fracture Acetabulum Closed Initial Left (HCC) 5. Contusion Buttock Initial 6. Anemia 7. Subarachnoid Hemorrhage With Loss Of Conscious Initial (HCC) 8. Other Shock (Hemorrhagic Shock) (HCC) 9. Fracture Pelvis Multiple Closed With Stable Disruption Pelvis Ring Initial (HCC) 10. Dysphagia [R13.10] 11. Decline Cognitive [R41.81] 12. 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 Subarachnoid Hematoma Trauma Without Loss Of Consciousness Subsequent [S06.6X0D] 14. Lack Of Coordination [R27.9] 15. Other Abnormalities Of Gait And Mobility [R26.89] 16. 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 Delirium [R41.0] History of Present Illness: Pt is an 83 year old male with no known medical history who presented to the hospital on 11/22 following a fall from approximately 6 feet off a ladder. He landed on his leftside and hit his head. He is amnesic to the events. Per his there are concerns that he may have dementia, but does not see a primary care physician. Trauma scans reeleaved: small amount of layering blood products in the occipital horn of the left lateral ventricle, small cortical hemorrhage versus focal subarachnoid hemorrhage anterior left frontal lobe, left pelvic fractures with associatedleft retroperitoneal hematoma, intramuscular hematomas involving the left gluteus and iliopsoas musc les and nondisplaced left anterior sixth rib fracture. Pt is s/p ORIF of the left acetabulum. Onset Date: 11/23/23 Patient/Caregiver Goals: Pt goal to return home. Patient Comments: Laying in bed upon arrival. AUTOMATIC LEHR OPERATOR at bedside. Precautions Weight Bearing Status: TTWB LLE - difficulty maintaining this Other Precautions: Fall risk, cognition, aspiration Fall Risk (65 and older) Fall in the last 12 months: Yes Did you have an injury with the fall?: Yes Are you fearful of falling?: Yes OBJECTIVE Therapeutic Activity Bed Mobility - Supine to Sit # of Assistants: 1 Level of Assistance: Moderate assistance Device: Head of bed elevated, Other Cuing: Verbal, Tactile Comments: Head of bed to full upright position. Assisted patient with LEs and trunk to sitting EOB. Bed Mobility - Sit to Supine # of Assistants: 1 Level of Assistance: Maximal assistance Device: Head of bed elevated, Bed rail Cuing: Verbal, Tactile Comments: Maximal assistance needed to clear legs over edge of bed. Provided assistance at trunk aswell to facilitate transition to supine. Sit to Stand Transfers # of Assistants: 1 Transfer Surface: Bed Transfer Equipment: Gait belt, Front wheeled walker Level of Assistance: Moderate assistance Comments: Performed repetitive sit<>stands from elevated bed. Significant difficulty maintaining LLE TTWB precautions requiring physical assist to weight shift over right lower extremity. Pillow placed beneath patient's LL E with therapist's foot under pillow. Verbal cues not to squish the pillow. Cognition impacted understanding, with inconsistency in maintaining precautions. Stand to Sit Transfers # of Assistants: 1 Transfer Surface: Bed Transfer Equipment: Gait belt, Front wheeled walker Level of Assistance: Moderate assistance Assessment/Delivery: Instructed, Assessed, Therapist assisted, Facilitated Comments: Assisted with slowed descent and guiding hips back onto bed Bed, Chair, Wheelchair Transfers # of Assistants: 2 Transfer Surface: Chair, Bed Transfer Approach: To Transfer Equipment: Front wheeled walker Level of Assistance: Maximal assistance Balance Retraining Sitting: Static, Midline orientation (comment), Anterior/posterior leans Static Standing Balance: Static standing Static Standing Balance Comments: Facilitation privded to maintain weigh tthrough RLE. BUE support through fww. Therapeutic Exercise Seated Exercise - Side Addressed: Right, Left Sitting Surface: Bed Seated Exercise: Marching, Long arc quads Exercise Mode: Active motion against gravity, Manual resistance Seated Exercise Comments: Provieded manual resistance against RLE motion, gravity only for LLE Patient/Family Training: Provided education on role of physical therapy in the acute PT setting andrationale behind given interventions. Collaborated with patient and/or family on goals and plan of care. At the end of today's therapy session patient was left in bed 1:1 staff present with an appropriatecall light within reach. Patient's needs and questions addressed during today's session. Assessment Carlos Alberto Grayson continues to have good tolerance to therapy. Today's session was focused on LE strengthening and sit to stand repetitions. Patient continues to be limited in mobility due to TTWB restrictions on LLE. Unable to maintain restrictions safely due to cognitive impairments. Trialed sit to stands with cues not to squish therapist's foot or pillow under foot, patient unable to complete taskwithout placing excessive weight through LLE. Reverted to seated exercises for safety. Patient continues to function below baseline and is at increased risk for falls. He will continue to benefit from ongoing skilled physical therapy to progress functional mobility, strength and activity tolerance, provide education and maximize safety prior to discharge. Barriers to a safe discharge home: Barriers to Discharge Home: Current functional status, Fall risk, Safety concerns Comorbid Conditions: None Personal Factors: Age, Balance impairment, History of falls, Needs assistive device Discharge Therapy Needs - PT: Ongoing skilled physical therapy Level of Care Needed - PT: Assistance with bed mobility, Assistance with transfers (Comment), Assistance with walking and moving around the home, Assistance with stairs, Physical assistance needed, Cognitive assistance needed Skilled therapy can include physical therapy provided by home health, outpatient clinic, or a post-acute facility. The location of these services is determined by the patient's care team in partnership with patient/family. Functional Goals and Timeframes: PT Goal #1: Patient will demonstrate independence with supine to/from sit transfer without use of hospital bed features to progress functional mobility and return to prior level of function. PT Goal #1 Status: Slowly progressing PT Goal #2: Patient will demonstrate functional transfers with moderate assitance with least restrictive assistive device while maintaining TTWB on LLE to progress functional mobility and facilitate return to prior level of function. PT Goal #2 Status: Slowly progressing PT Goal #3: Patient will ambulate 10ft or greater with least restrictive assistive device while maintaining TTWB on LLE with minimal assistance in order to progress functional mobility and facilitatereturn to prior level of function. PT Goal #3 Status: Ongoing Progress: Slow progress, cognitive deficits Plan Patient agrees with the plan of care and goals. Treatment Plan: PT Frequency: 5 times per week PT Amount: 1 visit per day PT Inpatient Duration : Until goals are met or hospital discharge Plan: Continue with current plan PT Plan Comments: Skilled physical therapy to promote safety and independence with functional mobility, decrease fall risk, determine appropriate durable medical equipment needs, and aid with discharge planning Treatment interventions may include: Treatment/Interventions: Therapeutic exercise, Therapeutic functional activity, Neuromuscular re-education, Gait training Time Spent with Patient Therapeutic Interventions Therapeutic Activity (min): 10 min Therapeutic Exercise (min): 5 min Time Tracking Total Timed Units (min): 15 min Total Treatment Time (min): 15 min Raegan Drew P.T., D.P.T. * Daniela Torres R.N., C.W.C.N. - 12/06/2023 11:11 AM CDT [facility] Wound RN following up to assess Carlos Albertokaiser Powersiniemi skin alterations. Wound assessment, pain, and Bradly score noted in the flowsheet. No images were taken during this patient assessment. History: Per provider note, patient is an 83 y.o. hospitalized for evaluation and management of intraventricular hemorrhage, SAH, left pelvis fracture with complex involvement of acetabulum s/o ORIF 11/24 after a fall off a ladder while attempting to repair a leak on his roof. His hospital course hasbeen complicated by acute anemia, hypotension (resolved), hypoxic respiratory failure (resolved), acute delirium. Medical comorbidities are significant for cataracts, macular degeneration, hard of hearing, BPH. Assessment: The patient was assessed while lying in bed with unit AUTOMATIC LEHR OPERATOR at bedside. The right pretibial traumatic wound is covered with an adherent layer of brown scabbed tissue. The previous bilateralarm skin tears and abdominal blisters have healed. Continue wound cares as ordered. 12/06/23 0830 Integumentary Preventative Skin Action Prophylactic foam border dressing to sacrum/coccyx Wound 11/28/23 Traumatic Pretibial Right Date First Assessed/Time First Assessed: 11/28/23 2300 Primary Wound Type: Traumatic Location: Pretibial Wound Location Orientation: Right *Shape Round / oval *Wound Bed Brown Tissue Exposed None Odor None *Exudate Amount None Nafisa-wound Assessment Clean;Dry;Intact Treatments Cleansed Periwound Treatment Cleansed (Comment) Wound Cleansed with Wound cleanser *Primary Dressing Wound gel *Primary Dressing Frequency of Change Every third day & PRN Primary Dressing Changed New Primary Dressing Status Clean;Dry;Intact *Secondary Dressing Foam *Secondary Dressing Frequency of Change Every third day & PRN Secondary Dressing Changed New Secondary Dressing Status Clean;Dry;Intact Changed by Wound traffic law attorney Head to toe assessment completed. DRESSING RECOMMENDATIONS: #1 Traumatic Pretibial Right -Cleanse the wound with Vashe wound cleanser. Pat dry. -Apply a layer of PluroGel, 3mm thick, directly to the wound bed. -Ensure that the PluroGel covers the wound completely. -Cover with a 4x4 Mepilex border. -Change every 3 days and PRN until healed. Recommended interventions for pressure redistribution and shear reduction: Offload heels on pillows at all times when in bed. Full 30 degree turns side to side every 2 hours with supine positioning only for meals. Reposition at least every hour while in the chair. Reposition medical devices per policy. Assess and pad the skin under and surrounding the medical devices with a prophylactic foam dressing. Keep the HOB below 30 degrees except for meals unless medically contraindicated. Apply a prophylactic sacral Mepilex?? border dressing to cover the coccyx/sacral area. Ensure the dressing is in full contact with the skin to prevent moisture- related skin breakdown. Lift twice daily to assess when used for prevention. Change every 3 days and PRN. Utilize the Advanced Wave Low Air Loss and Immersion mattress. Recommended interventions for moisture control: InterDry?? Ag placed between folds. Allow at least 2 inches of fabric exposed to air on at least one side of the skin fold for moisture evaporation. Can be used up to 5 days unless soiled with stool or urine. Do not rinse with water. Utilize the breathable incontinence underpads while in bed. Adult briefs should only be worn while ambulating or in the chair. Cleanse with foaming cleanser or wipes after each incontinence episode and for routine hygiene cares. Consult recommendations: NA Education: Discussed the plan of care with the patient and nursing. They agree to the plan. The [facility] RN will sign-off. Please place a wound care consult for any new concerns. * Nurys Cifuentes P.A.-C. - 12/06/2023 8:30 AM CDT Geriatrics Consult - Progress Note SUBJECTIVE Mr. Grayson was seen and evaluated on geriatric rounds this morning. Upon arrival, he was sitting up in the bed and was finishing breakfast. I have reviewed the current medication list. OBJECTIVE VITAL SIGNS Temperature: [36.3 ??C-37.1 ??C] 36.6 ??C Resp Rate: [12-18] 16 Blood Pressure: (98-123)/(47-75) 114/53 SpO2: [94 %-98 %] 95 % Pulse Rate: [66-90] 69 PHYSICAL EXAM General: Alert, interactive, not acutely ill, no apparent distress. ENT: DIOMEDE Lungs: Normal rate and effort Heart: No extremity edema. Abdomen: nondistended, nontender Mental: Attention intact (completed backwards days and months with one mistake) No evidence of disorganized thinking. RASS 0. CAM negative for acute delirium. DIAGNOSTICS I have independently reviewed labs over 24 hrs. ASSESSMENT / PLAN Mr. Grayson is hospitalized on [facility] Trauma for evaluation and management of: Fracture Ilium Closed Initial Left (HCC). 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 Comorbidities include (collateral received from Mikayla- retired nurse) known cognitive impairment with significant short-term memory issues (independent with most IADLs and ADLs except finances), cataracts, macular degeneration, hard of hearing, BPH. He fell from a ladder while attempting to repair a leak on his roof. Sustained SAH, IVH, left 6th rib fracture, left complex pelvic fracture s/p ORIF 11/24. Course c/b left lower soleal vein DVT, hemorrhagic shock ( 7 units PRBCs, 2 units cell saver, 2 units FFPs, platelets 2 units), hypotension (resolved), hypoxic respiratory failure (resolved), urinary retention in the setting of known BPH requiring q.4 hours I&O cathing (recently started on tamsulosin, finasteride added 12/01), delirium (requiring IA and non violent restraints). 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 He was briefly on suvorexant and ramelteon->melatonin. Melatonin increased on 12/[address] head after initiation of DVT ppx showed stable intracranial hemorrhage. Delirium continues to improve, and query whether we are nearing his baseline. In afternoon, conversed with his regarding disposition. She upset he will be able to discharge to acute rehab and then eventually to home with home health care versus AUTOMATIC LEHR OPERATOR support. RECOMMENDATIONS: Continue I&O cathing every 6 hours Continue new tamsulosin and finasteride Continue increased dose of melatonin Continue IV olanzapine 2.5 mg PRN only if patient or staff safety is concerning General delirium prevention/management strategies: Minimize RAILWAY SWITCHMAN-acting medications. Increase mobility to match ability. Frequent reorientation. Provide moderate level of social and cognitive stimulation. Treat dehydration and constipation. Nonpharmacologic sleep promotion strategies. The above plan of care was discussed with Dr. Coello, HIM programmer analyst consultant. I personally spent a total of 50 minutes providing and coordinating care today. Thank you for the opportunity to care for this patient. We will continue to follow with you. Pleasepage the Geriatrics Consult Service at [phone] with any questions or concerns. * Mickey Benton M.D. - 12/05/2023 9:10 PM CDT Orthopedic Service: [facility] Hospital Admission Day: 11/23/2023 Length of Stay: 12 Procedures: Surgery Information This Encounter Past Procedures (12/01/2022 to Today) Date Procedures Providers Loc / Dept 11/25/2023 OPEN REDUCTION INTERNAL FIXATION ACETABULUM. Naveed Higuera M.D.Markos, James R, M.D.Labott, Joshua R, M.D.Sherie Lozano M.D. RST ROMB OR SUBJECTIVE Mr. Grayson was seen and examined in his floor care room. He had just eaten dinner. He was interactive with me on exam. His incisional vac and drain have had no additional output. OBJECTIVE VITALS Temperature: [36 ??C-36.8 ??C] 36 ??C Resp Rate: [16-18] 17 Blood Pressure: (121-132)/(51-59) 132/51 SpO2: [94 %-97 %] 94 % Pulse Rate: [72-83] 80 I/O last 3 completed shifts: In: 740 [P.O.:740] Out: 2305 [Urine:2300; Drains:5] PHYSICAL EXAM General: follows commands inconsistently, confused Cardiac: Hemodynamically stable. Lungs: Non-labored respirations on room air, satting well. Left Lower Extremity: Surgical incision CDI with inna in place. Calf soft and non-tender. Neurovascularly intact with palpable pulses, brisk cap refill. Sensation intact grossly to light touch throughout dermatomes. Fires tib ant, gastroc, ehl, fhl spontaneously, though not to command Drain: removed LABS No results found for this or any previous visit (from the past 24 hour(s)). IMAGING DX Chest Portable 1 View Result Date: 11/25/2023 Impression: No change since 11/24/2023. Low lung volumes. Bibasilar atelectasis. Skeletal degenerative changes. Left rib fracture not well seen radiographically. Remainder negative. CT Head without IV Contrast Result Date: 11/24/2023 Impression: 1. 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 2. Punctate hyperdensity noted in the left frontal region on the prior study is again noted and possibly reflects a punctate cortical hemorrhage. 3. Mild asymmetric prominence of the extra-axial space over the left frontal convexity may reflect a small subdural effusion. ASSESSMENT / PLAN #1 s/p ORIF left associated both column acetabular fracture 11/[address] Higuera via limited ilioinguinal with ASIS osteotomy plus Stoppa approach I have removed the patient's drain and incisional vac. His incision appears to be in good conditionwith inna in place and no areas of concern. He may have an island dressing to the incisions if desired or they may be left open to air. He is doing well from a postoperative standpoint at this time. --Activity: TTWB LLE. PT/OT to follow. --Antibiotics: Perioperative cefazolin x2 doses completed. --Blood: Hemodynamics have been relatively stable. --Brace: none --Cultures/Path: None. --Diet: Per primary service. --Drains: removed --Dressing: Ivac removed. Incision C/D/I --VTE Prophylaxis: Mechanical prophylaxis with SCDs, early mobilization, and recommend subcutaneousheparin products per TCGS --Pain: per primary --Urinary: Per primary --Imaging: Postop imaging completed --Code: Full --Dispo: Anticipate discharge to SNF, per primary. Outpatient orthopedic follow up will be scheduled. From 6am-6pm Tuesday-Tuesday, please contact [facility] with any questions regarding this patient. If overnight (6 PM to 6 AM) or any time on weekends, please contact the Orthopedic Surgery house resident marine resource economist at [phone] * Alexi Khan M.D. - 12/05/2023 4:46 PM CDT I saw and examined the patient along with the resident/AIR HOLE DRILLER-PA team and agree with the findings and recommendations in their note. I reviewed pertinent history, physical exam, labs, and imaging. Mr. Carlos Alberto Grayson is a 83 y.o. male admitted on 11/23/2023 after a fall. He suffered a TBI and pelvicfracture. He has undergone ORIF of the acetabulum. He continues to require significant assistance for his safety. Disposition is pending as he continues to require a 1:1 and needing significant staff assistance. He may be appropriate for SNF vs memory care. Alexi Khan MD, FACS Bandsaw Operator greenhouse staff, [employer] Division of Trauma, Critical Care and General Surgery; Department of Surgery (Pager) (office) fax [email or web address] * Hayley Durham L.G.SPeggy., M.S.W. - 12/05/2023 3:45 PM CDT SUBJECTIVE Social Work communicated with patient's regarding discharge planning. Patient's indicatespatient seems to be doing much better cognitively per her phone calls with him. Patient's communicated potential plan to return to home with home health care to patient and reports he was agreeable. Social Work communicated with Service regarding discharge planning. OBJECTIVE Per [facility] Social Work, patient does not have [facility] short-term rehab or long-term care benefits. He does have [facility] home care benefits. Patient is on Safety Plan. Patient is anticipated to be ready for discharge by 12/09/23. Referrals sent: [facility]fac[facility] full) [facility] -DECLINED (facility full) [facility]-DECL[facility] (they do not accept for short term rehab) [facility] - SNF ASSESSMENT / PLAN ASSESSMENT Patient disposition is dependent on safety to return home or appropriateness for retirement facility based on cognition. PLAN Patient's would like patient to return home with home health care. Referrals are out for short term rehab placement. Social work will continue to follow to provide support. Social Work will continue to assist with discharge needs. Aimee Ahuja, M.S.W. 12/05/23 * Fidelina Lopes - 12/05/2023 2:25 PM CDT Nutrition Care Plan Follow Up Clinical Nutrition continues to follow patient for oral intake encouragement and oral nutrition supplement follow up/adjustment. ASSESSMENT Completed visit with patient and care team today as part of face to face care. Current Nutrition (since admission): Spoke with patient and AUTOMATIC LEHR OPERATOR. Patient's appetite has been improving according to the AUTOMATIC LEHR OPERATOR and patient himself. He frequently sips fluids during meals and is having no issues chewing or swallowing with his current texture (SB6). According to AUTOMATIC LEHR OPERATOR, patient drinks his Ensure Plus and smoothie but doesn't always finish them. When asked about his ONS, patient said he drinks them, but doesn't believe in them, as he thinks fruits and vegetables must be better. Reassured patient that while fruits and vegetables are an important part of a healthy diet, they are not great sources of protein or calories, which is what he needs for healing right now. Encouraged snack of fruit or vegetable alongside supplement, which satisfied patient. Percentage of Meals Eaten for the past 72 hrs: Percent Meals Eaten (%) 12/05/23 1218 25 12/05/23 0908 25 12/04/23 1830 50 12/04/23 1300 75 12/04/23 0830 100 12/03/23 1850 100 12/03/23 1200 75 12/03/23 0800 100 Swallow function: On 12/02 patient was evaluated by OT Dysphagia and diet order was upgraded from MM5 to SB6. Patient is seen by OT Dysphagia three days a week. Current nutrition orders: Current Diet Adult Diet Dysphagia; Thin (TN0); Soft and Bite-Sized (SB6) starting at 12/02 1357 GI Function: Last BM Date: 12/05/23, [place] Stool Chart: Type 3: Like a sausage but with cracks onthe surface, Passing Flatus: Yes Weight since admission: Height: 180.3 cm Admission Weight: 86.3 kg (11/23/2023) Current Weight: 93.4 kg (11/30/2023) BMI (Calculated): 28.7 kg/m?? Weight change since admission: 7.1 kg Net IO Since Admission: 439.57 mL [12/05/23 1435] Estimated Needs: Total Calorie Needs: 1557-9905 calories/day Method to Estimate Energy Needs: kcal/kg (22-25 kcal/kg) Weight Used for Equation Calculations: 86.3 kg Total Protein Needs: 85 - 102 grams/day Method to Estimate Protein Needs (g/kg): 1 - 1.2 gm/kg Weight Used to Calculate Protein Needs (Kg): 85 kg Nutrition Diagnosis: Swallowing difficulty related to fall and confusion as evidenced by need for dysphagia diet Nutrition Diagnosis Reassessment: Ongoing (improving) PLAN Nutrition Intervention: Medical food supplement, Increase nutrient intake with small, frequent meals and/or snacks, Vitamin and mineral supplements Nutrition parameter to monitor: Meals/Supplement Intake, Diet Progression/NPO Status, Skin Integrity, Pertinent Labs, Nausea/Vomiting/Diarrhea, Chewing/Swallowing ASPEN Criteria Malnutrition Status: Well Nourished Recommendations: No changes at this time; continue current nutrition orders Clinical Nutrition will continue to follow. For questions about patient's nutritional care please contact pager [phone] on weekdays 07:30-16:00 or [phone] on weekends/holidays ([facility]). * Margie Roth P.T., D.P.T. - 12/05/2023 1:52 PM CDT Physical Therapy Acute Hospital Inpatient Treatment SUBJECTIVE Patient's Name: Carlos Alberto Grayson Reason for Referral: PT eval and treat - brain consult Medical Diagnosis: 1. Fracture Ilium Closed Initial Left (HCC) 2. History Of Falling 3. Retroperitoneal Hematoma 4. Fracture Acetabulum Closed Initial Left (HCC) 5. Contusion Buttock Initial 6. Anemia 7. Subarachnoid Hemorrhage With Loss Of Conscious Initial (HCC) 8. Other Shock (Hemorrhagic Shock) (HCC) 9. Fracture Pelvis Multiple Closed With Stable Disruption Pelvis Ring Initial (HCC) 10. Dysphagia [R13.10] 11. Decline Cognitive [R41.81] 12. 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 Subarachnoid Hematoma Trauma Without Loss Of Consciousness Subsequent [S06.6X0D] 14. Lack Of Coordination [R27.9] 15. Other Abnormalities Of Gait And Mobility [R26.89] 16. 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 Delirium [R41.0] History of Present Illness: Pt is an 83 year old male with no known medical history who presented to the hospital on 11/22 following a fall from approximately 6 feet off a ladder. He landed on his leftside and hit his head. He is amnesic to the events. Per his there are concerns that he may have dementia, but does not see a primary care physician. Trauma scans reeleaved: small amount of layering blood products in the occipital horn of the left lateral ventricle, small cortical hemorrhage versus focal subarachnoid hemorrhage anterior left frontal lobe, left pelvic fractures with associatedleft retroperitoneal hematoma, intramuscular hematomas involving the left gluteus and iliopsoas musc les and nondisplaced left anterior sixth rib fracture. Pt is s/p ORIF of the left acetabulum. Onset Date: 11/23/23 Patient/Caregiver Goals: Pt goal to return home. Precautions Weight Bearing Status: TTWB LLE - difficulty maintaining this Other Precautions: Fall risk, cognition, aspiration Fall Risk (65 and older) Fall in the last 12 months: Yes Did you have an injury with the fall?: Yes Are you fearful of falling?: Yes OBJECTIVE Pain: reports high levels of pain with mobility; does not rate due to cognition. Oriented to time, place, and situation; unable to state appropriate city, hospital name, date, nameof day, etc. Encouraged to complete standing to progress mobility. Patient politely declined several times due to concern of falling and pain. Completed light strengthening exercises including saq, ankle pumps and active assisted hip flexion in a limited range (per patient's tolerance). Provided further encouragement to stand; patient continued to decline. At the end of today's therapy session patient was left in bed with 1:1 staff present. Patient's needs and questions addressed during today's session. Assessment Mr. Grayson politely declined all standing activities today due to fear of falling and pain despite encouragement from PT and AUTOMATIC LEHR OPERATOR. Continues to be disoriented to time, place, and situation. He will continue to benefit from ongoing physical therapy to progress functional mobility. Barriers to a safe discharge home: Barriers to Discharge Home: Current functional status, Fall risk, Safety concerns Comorbid Conditions: None Personal Factors: Age, Balance impairment, History of falls, Needs assistive device Discharge Therapy Needs - PT: Ongoing skilled physical therapy Level of Care Needed - PT: Assistance with bed mobility, Assistance with transfers (Comment), Assistance with walking and moving around the home, Assistance with stairs, Physical assistance needed, Cognitive assistance needed Skilled therapy can include physical therapy provided by home health, outpatient clinic, or a post-acute facility. The location of these services is determined by the patient's care team in partnership with patient/family. Functional Goals and Timeframes: PT Goal #1: Patient will demonstrate independence with supine to/from sit transfer without use of hospital bed features to progress functional mobility and return to prior level of function. PT Goal #1 Status: Slowly progressing PT Goal #2: Patient will demonstrate functional transfers with moderate assitance with least restrictive assistive device while maintaining TTWB on LLE to progress functional mobility and facilitate return to prior level of function. PT Goal #2 Status: Slowly progressing PT Goal #3: Patient will ambulate 10ft or greater with least restrictive assistive device while maintaining TTWB on LLE with minimal assistance in order to progress functional mobility and facilitatereturn to prior level of function. PT Goal #3 Status: Ongoing Progress: Slow progress, cognitive deficits Plan Patient agrees with the plan of care and goals. Treatment Plan: PT Frequency: 5 times per week PT Amount: 1 visit per day PT Inpatient Duration : Until goals are met or hospital discharge Plan: Continue with current plan PT Plan Comments: Skilled physical therapy to promote safety and independence with functional mobility, decrease fall risk, determine appropriate durable medical equipment needs, and aid with discharge planning Treatment interventions may include: Treatment/Interventions: Therapeutic exercise, Therapeutic functional activity, Neuromuscular re-education, Gait training Time Spent with Patient Therapeutic Interventions Therapeutic Exercise (min): 15 min Time Tracking Total Timed Units (min): 15 min Total Treatment Time (min): 15 min Margie Roth P.T., DemetriusPTarikT. * Lalita Bacon APRN, C.N.P., D.N.P. - 12/05/2023 9:50 AM CDT Images from the original note were not included. SUBJECTIVE I met and examined Mr. Grayson this morning. Mr. Grayson is hospital day 12 for management of histraumatic injuries following a 6 foot fall from a ladder. He was restless and attempting to get up from the bed with 2 AUTOMATIC LEHR OPERATOR's in the room when I arrived this AM. He was pleasant and alert. He was onlyoriented to himself. He was unable to tell me where he was or why. He was semi re-directable but with multiple cues. Per bedside nurse and AUTOMATIC LEHR OPERATOR he did have another assisted fall (or lowering to the ground without striking anything) last night. He did not hit his head or any body part and was safely gotten back into bed. Denies any pain or discomfort this AM but is a poor historian. Tolerating a modified dysphagia diet with 740 cc of oral intake. Adequate urine output of 2.3 L but he is still requiring mostly intermittent cathing even with the increase in Flomax and voiding schedule. Left hip drain and iVAC remain in place. He remains hemodynamically stable and afebrile. OBJECTIVE Temperature: [36 ??C-37.1 ??C] 37.1 ??C Resp Rate: [15-18] 16 Blood Pressure: (111-132)/(49-75) 111/53 SpO2: [94 %-97 %] 97 % Pulse Rate: [72-90] 78 Physical Exam General: no acute distress, sitting on the edge of the bed Pulmonary: lung sounds clear bilaterally; on room air Abdomen: soft, non-tender, non-distended Musculoskeletal: left hip (ivac in place, holding seal); Davol drain w/ sanguineous output); ecchymosis on left flank improving; left hand (skin tear covered w/ Mepilex) : voiding (intermittent cathing) Neurologic: alert and oriented x 1 (self ) Psychological: calm & cooperative Diagnostics No new labs or diagnostics to review this AM. Consult Orders: IP CONSULT TO ORTHOPEDIC SURGERY IP CONSULT TO NEUROLOGICAL SURGERY IP CONSULT TO [facility] INTERNAL MEDICINE IP CONSULT TO [facility] INTERNAL MEDICINE IP CONSULT TO PHYSICAL MEDICINE & REHABILITATION IP CONSULT TO NEUROLOGY IP CONSULT TO [facility]ILW[facility] SWITCHMAN WOUND CARE HUMANITIES IN MEDICINE SERVICES ([facility]) IP CONSULT TO SENIOR NURSE MANAGER ELECTRONIC SYSTEMS SECURITY ASSESSMENT IP CONSULT TO SENIOR NURSE MANAGER ELECTRONIC SYSTEMS SECURITY ASSESSMENT ASSESSMENT / PLAN Diet: Adult Diet Dysphagia; Thin (TN0); Soft and Bite Sized (MM6) Activity: Up w/ assistance, TTWB LLE Pain regimen: tylenol, triple pain cream, Lidoderm patch, oxycodone prn Bowel regimen: bisacodyl suppository, milk of mag, MiraLAX, senokot VTE chemoprophylaxis: Lovenox 30 mg bid GI prophylaxis: none Antibiotics: none Microbiology: none Dispo: SNF; referrals pending Today's plans: - Continue to work on redirecting as able - Will increase bladder voiding schedule to every 6 hours per Geriatric recommendations Mechanism: Fall from 6 ft ladder - TTS: 11/24 - SAS: 11/23 - FRAIL Score: Geriatrics consulted; following #1 History Of Falling - Care management consulted; SNF referrals pending - PMR PT/OT consulted #2 Subarachnoid Hematoma Trauma Without Loss Of Consciousness Subsequent #3 Contusion Scalp Initial Large left frontal scalp hematoma Small cortical hemorrhage vs focal subarachnoid hemorrhage (left frontal lobe - Neurosurgery Chief C consulted - Repeat Head CT (11/23): slight increase in IVH in the occipital horn of the left lateral ventricle - Serial head CT's were obtained and on 11/[address] showed decreased small amounts of blood products and no new hemorrhage - Started on DVT chemoprophylaxis 30 mg Lovenox bid on 11/29 evening --> was noted to have more significant altered mental status than usual the morning of 11/30 and a [address] Head CT was emergentlyobtained and was stable for DVT chemoprophylaxis was resumed 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) - PMR TBI consulted - Education given on concussion and TBI symptoms; was unable to be present during the assessment so minimal information given d/t his baseline cognition - Team will continue to following and assess the ongoing therapy and rehab needs #5 Thrombosis Deep Vein Lower Extremity Left (HCC) Acute soleal vein DVT; left leg - Currently on Lovenox 30 mg bid for DVT chemoprophylaxis, discussing with Neurosurgery when will be safe to transition to full strength anticoagulation; continuing mechanical SCD's while in bed - BLE US (11/27): acute DVT LLE soleal vein - Repeat US Bilateral LE (12/04): unchanged acute DVT in the left soleal vein - Discussed with Dr. Khan (trauma programmer analyst consultant on 12/04) & due to the distal nature of the DVT; we elect to not fully anticoagulate the pt based on the stability of this repeat ultrasound and his overall clinical picture and injuries #6 Fracture Rib One Open Initial Left #7 Atelectasis #8 Effusion Pleural Nondisplaced, left 6th rib fracture - Started on rib fracture protocol but unable to participate d/t cognition - Continue with encouraging pulmonary hygiene as able (IS/deep breathing/coughing/CPAP) - No follow up required in the TMLP clinic for the one rib fracture #9 Fracture Acetabulum Other Closed Initial Left (HCC) #10 Fracture Pelvis Multiple Closed With Stable Disruption Pelvis Ring Initial ([facility]) #11 Fracture Ilium Closed Initial Left (HCC) Multiple comminuted fractures of the left anterior & posterior pubic rami, acetabulum & iliac wing extending into the left SI joint w/ hemorrhage noted in the left retroperitoneum - OTS- 1 consulted - OR (11/24): ORIF of the left associated both column acetabular fracture (Dr. Higuera) via limited ilioinguinal w/ ASIS osteotomy plus Stoppa approach; closed over drains w/ iVAC - TTWB LLE - PMR PT/OT consulted; d/t cognition does not fully understand weight bearing restrictions & kimberlee heavy 2 assist currently - Has had 2 falls (assisted to the ground slowly w/o striking the ground) over the past few days while impulsively trying to get up --> has a 1:1 sitter at bedside - [address] (sanguineous output) & iVAC in place --> ortho managing & plan to remove this evening - Pelvis x-rays obtained (12/03): surgical hardware intact w/o radiographic evidence of failure; no new fractures; left surgical drain in place - Will require follow up in the OTS clinic after dismissal; their team will order the follow up #12 Anemia Posthemorrhagic Acute (Blood Loss Anemia) #13 Postprocedural Hemorrhagic Shock Initial; resolved - Hgb 10.6 on 12/01 (10.7 /10.4 / 10.7). 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) #15 Encephalopathy Metabolic #16 Delirium - Geriatric Medicine consulted; following - Stopped ramelteon d/t more alerted mental status on 12/01 but continuing with melatonin (increased to 6 mg at bedtime per Lisbeth recs) and prn olanzapine (agitation) - Continuing with delirium prevention and sleep enhancement as able #17 Dysphagia - OT Dysphagia consulted; following - Currently on a IDDSI Level 6 Soft & Bite sized with thin liquids - Aspiration precautions & medications with purees #18 Retention Urinary - Started on Flomax & Finasteride this admission and have increased to 0.8 mg - On a voiding schedule; will increase to every 6 hours to trial voiding and then bladder scanning and straight cathing per Geriatric recommendations - Cathed for 2300 mL and spontaneously voided 75 mL in the past 24 hours - Will consider a Urology consult if continues to not have improvement in spontaneously voiding in the upcoming days Electronically signed by: Lalita Bacon APRN, C.N.P., D.N.P. If you have any questions or concerns please page the Trauma Service at [phone] Addendum @ 4216: Spoke to Mrs. Grayson this afternoon about her over the phone. She is understanding of his current cognition difficulties. She plans to visit at bedside tomorrow around 1 pm. She has been calling multiple times a day to check on him. She is a retired nurse and states that other than finances he is fairly independent at home. She did mention that over the past several months however he has been more and more confused and having lapses of short/longer term memories. Forgetting about a annual hunting trip last fall, stating that he had not been in several years. She mentioned that he will go and impulsively do things around the house and she does not believe that noris understands if he should be doing them. She state that he fell off of the same ladder a few weeks prior but from a much lower height. She told him at that time to not get on it again and she does not think he remembers that conversation. She says there is a significant history of memory/dementia in his family. We had a very lengthy discussion about safety for both him and her. We discussed that home with home healthcare may not be feasible at this current time due to his cognition and mobility. She was understanding and we discussed that we could chat more about this in person tomorrow with the Trauma team and the social work to come up with a plan moving forward. She was agreeableto this plan and thanked me for my time. * Josef Ferrara, Pharm.D., R.Ph. - 12/05/2023 9:44 AM CDT Pharmacist Progress Note Reason for admission: 83 yo s/p fall from ladder, subarachnoid hematoma, Rib fracture acetabular fracture, pelvis fracture, fracture ilium PMH: history of falling, dementia, OBJECTIVE Home medications: none per med history Held: N/A Changed: N/A Prophylaxis: enoxaparin 30 mg bid LABS: Scr 0.99, other lytes wnl. WBC 5.3. ASSESSMENT / PLAN HEME: Acute soleal vein DVT - left leg - on enoxaparin 30 mg sc twice daily prophylaxis dosing. Pt with sub arachnoid hemorrhage - therefore full anticoagulation not started. Final anticoagulation plan pending. Medications and laboratory data have been reviewed. There are no recommended changes to the pharmacotherapy plan at this time. Pharmacy will continue to follow for medication use optimization. Pharm. StanislavD., R.Ph. * Izabella Burkett, O.T., [facility] - 12/05/2023 9:15 AM CDT Occupational Therapy Dysphagia Treatment SUBJECTIVE Patient's Name: Carlos Alberto Grayson Referring/Attending Provider: Alexi Khan M.D. Medical Diagnosis: Anemia [D64.9] Contusion Buttock Initial [S30.0XXA] Subarachnoid Hemorrhage With Loss Of Conscious Initial (HCC) [S06.6X9A] Fracture Acetabulum Closed Initial Left (HCC) [S32.402A] Fracture Ilium Closed Initial Left (HCC) [S32.302A] History Of Falling [Z91.81] Other Shock (Hemorrhagic Shock) (HCC) [R57.8] Retroperitoneal Hematoma [K68.3] Reason for Referral: Reason for Referral: OT dysphagia Onset Date: 11/23/23 Payor: [employer] / Plan: [facility] / Product Type: Indemnity / History of Present Illness: History of Present Illness: Pt is an 83 year old male with no known medical history who presented to the hospital on 11/22 following a fall from approximately 6 feet off a ladder. He landed on his left side and hit his head. He is amnesic to the events. Per his there are concerns that he may have dementia, but does not see a primary care physician. Trauma scans reeleaved: small amount of layering blood products in the occipital horn of the left lateral ventricle, small cortical hemorrhage versus focal subarachnoid hemorrhage anterior left frontal lobe, left pelvic fractures with associated left retroperitoneal hematoma, intramuscular hematomas involving the left gluteus and iliopsoas muscles and nondisplaced left anterior sixth rib fracture. Pt is s/p ORIF of the left acetabulum. Family/Caregiver Present: No Patient/Caregiver Goals: None stated Patient Comments: Patient sitting chair with breakfast present and AUTOMATIC LEHR OPERATOR. Precautions Weight Bearing Status: TTWB LLE - difficulty maintaining this Other Precautions: Fall risk, cognition, aspiration OBJECTIVE Precautions Weight Bearing Status: TTWB LLE - difficulty maintaining this Other Precautions: Fall risk, cognition, aspiration OT Dysphagia Treatment: Educated patient and/or caregiver on diet recommendations Educated patient and/or caregiver on aspiration precautions Observed a meal and provided feedback/instruction to patient Does the patient have a tracheostomy? No. Team Communication: Patient's nurse was contacted and patient's status was discussed, Other (comment) (AUTOMATIC LEHR OPERATOR present for therapy session) Patient was left in bedside chair at end of session with call light in reach, all needs met and questions answered. Additional Staff Present During Session: AUTOMATIC LEHR OPERATOR Assessment Time Dysphagia Assessment Completed: 915 Clinical Impression/Recommendations: Patient was observed sitting upright in bedside chair with scrambled eggs, breakfast potatoes, oatmeal, and diced pears with milk. Patient had no overt signs of aspiration with bites observed. Patient appeared to have poor appetite this morning and was only agreeable to few bites. AUTOMATIC LEHR OPERATOR present during meal to ensure aspiration precautions are being followed due to patient's cognition. Recommend patient remains on soft and bite size diet with thin liquids and follows aspiration precautions with supervision. Plan to continue monitoring tolerance to oral intake. Patient is below their functional baseline with swallowing function and skilled dysphagia services are medically necessary for this patient to safely progress oral intake. CURRENT DIET: Diet Recommendations - Solids: IDDSI Level 6 Soft & Bite-Sized Diet Recommendations - Liquids: IDDSI Level 0 Thin Recommended Form of Meds: With puree, Whole Recommendations: Dysphagia treatment Recommended Aspiration Precautions: Recommended Aspiration Precautions: Watch closely for signs of aspiration, Eat small bites, take small sips, eat slowly, Sit upright with all oral intake and when completing oral cares Recommended Compensation Techniques/Adaptive Equipment: Recommended Compensation Techniques/Adaptive Equipment: Requires supervision/assistance, Compensations for cognitive impairment, Alternate solid food with small amounts of liquids, No straws Compensations for Cognitive Impairment: Ensure a calm, distraction free environment, Assistance with feeding should be provided in an unhurried manner, Sit down near the patient when assisting with feeding whenever possible Positioning Recommendations: Upright as possible for all oral intake Recommendations for safe oral cares are as follows: -assist needed with regular toothbrush/toothpaste Rehab potential: Mr. Grayson has good potential to achieve established occupational therapy goals within the time frame outlined below. Functional Goals and Timeframes: Goal #1: Dysphagia: Patient will tolerate safe and adequate nutrition/hydration on least restrictive diet possible. Progressing Goal #2: Dysphagia: Patient and/or caregiver will demonstrate compensatory techniques and aspiration precautions recommended above with all oral intake. Progressing Plan Patient agrees with the plan of care and goals. Treatment Interventions: Swallow dysfunction treatment OT Dysphagia Duration: Until goals are met or hospital duration OT Dysphagia Amount: 1 visit per day OT Dysphagia Frequency: 3 times per week (Reduced frequency due to progress made) Inpatient OT Dysphagia Received On Date: 12/05/23 OT - Next Inpatient Dysphagia Appointment: 12/08/23 Plan: Continue with current plan Plan Comments: next session: assess tolerance to diet upgrade Re-evaluate: As clinically indicated Treatment interventions may include: Plan for Next Session: Observe a meal, Assess readiness for diet upgrade Time Spent with Patient Therapeutic Interventions Swallow Dysfunction Treatment (min): 19 min Time Tracking Total Treatment Time (min): 19 min For any questions feel free to page OT dysphagia Tuesday through Tuesday 7:00am to 4:00pm: Our service pager at [facility]: [phone] Our service pager at [employer]: #[phone] * Kezia Lopes APRN, C.N.P., D.N.P. - 12/05/2023 7:52 AM CDT Geriatrics Consult - Progress Note SUBJECTIVE Seen this morning. Nurses are unsure if he slept well but per chart review, he slept until around 0200 (likely awoken for straight cathing). Had a large BM this morning. I have reviewed the current medication list. OBJECTIVE VITAL SIGNS Temperature: [36 ??C-36.8 ??C] 36.7 ??C Resp Rate: [15-18] 15 Blood Pressure: (121-132)/(51-75) 123/75 SpO2: [94 %-97 %] 94 % Pulse Rate: [72-90] 90 PHYSICAL EXAM GENERAL: NAD, awake, in bed LUNGS: Normal respiratory effort on room air CARDIOVASCULAR: RRR no m/r/g GI/: Non-distended abdomen with normal bowel sounds MUSCULOSKELETAL: Edema LLE. DP pulses are symmetric and 1+. Gait not assessed SKIN: Wound Vac intact, suction drain intact NEURO: Oriented to person, no agitation DIAGNOSTICS I have independently reviewed labs and diagnostics. ASSESSMENT / PLAN Mr. Grayson is hospitalized on [facility] Trauma for evaluation and management of: Fracture Ilium Closed Initial Left (HCC). 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 Comorbidities include (collateral received from Mikayla- retired nurse) known cognitive impairment with significant short-term memory issues (independent with most IADLs and ADLs except finances), cataracts, macular degeneration, hard of hearing, BPH. He fell from a ladder while attempting to repair a leak on his roof. Sustained SAH, IVH, left 6th rib fracture, left complex pelvic fracture s/p ORIF 11/24. Course c/b left lower soleal vein DVT, hemorrhagic shock ( 7 units PRBCs, 2 units cell saver, 2 units FFPs, platelets 2 units), hypotension (resolved), hypoxic respiratory failure (resolved), urinary retention in the setting of known BPH requiring q.4 hours I&O cathing (recently started on tamsulosin, finasteride added 12/01), delirium (requiring IA and non violent restraints). 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 He was briefly on suvorexant and ramelteon->melatonin. Melatonin increased on 12/[address] head after initiation of DVT ppx showed stable intracranial hemorrhage. Getting an US today for DVT f/u. Still has a wound vac and suction drain. Vitals and labs have been stable. RECOMMENDATIONS: Decrease I/O cathing frequency to q 6 hrs to allow for more time to sleep during the night (could trial 10a, 4p, 10p, 4a schedule). Continue new tamsulosin and finasteride Removal of drains when okay from Orthopedic standpoint Continue increased dose of melatonin Continue IV olanzapine 2.5 mg PRN only if patient or staff safety is concerning General delirium prevention/management strategies: Minimize RAILWAY SWITCHMAN-acting medications. Increase mobility to match ability. Frequent reorientation. Provide moderate level of social and cognitive stimulation. Treat dehydration and constipation. Nonpharmacologic sleep promotion strategies. PMR following Had an assisted fall yesterday morning and last night. PT recommending ongoing use of overhead ceiling lift system for out of bed transfers in light of limited carry over of TTWB precautions Addendum: Wound Vac and drain will be removed tomorrow The above plan of care was discussed with Dr. Coello, HIM programmer analyst consultant. I personally spent a total of 25 minutes providing and coordinating care today. Thank you for the opportunity to care for this patient. We will continue to follow with you. Pleasepage the Geriatrics Consult Service at [phone] with any questions or concerns. * Lizett Ashraf O.T., O.T.D., VINITA - 12/04/2023 12:50 PM CDT Occupational therapy dysphagia monitor note: Mr. Grayson's diet was upgraded to Level 6 Soft and Bite-sized (SB6) dysphagia diet yesterday following his swallowing re-assessment. Therapist returned today to assess tolerance to diet upgrade. Patient was finishing his meal upon therapist arrival. He took bites of broccoli with no overt signs of aspiration. He continues to have high impulsivity and take very large bites/multiple bites prior to swallowing. Recommend supervision during meals and cues for small bites and to swallow food in hismouth prior to adding more food. Will plan to follow up to assess tolerance to full meal next session. Tamia Ashraf O.T., Hugh, VINITA * Sonali Meng P.T., D.P.T. - 12/04/2023 12:49 PM CDT Physical Therapy Acute Hospital Inpatient Treatment SUBJECTIVE Patient's Name: Carlos Alberto Grayson Reason for Referral: PT eval and treat - brain consult Medical Diagnosis: 1. Fracture Ilium Closed Initial Left (HCC) 2. History Of Falling 3. Retroperitoneal Hematoma 4. Fracture Acetabulum Closed Initial Left (HCC) 5. Contusion Buttock Initial 6. Anemia 7. Subarachnoid Hemorrhage With Loss Of Conscious Initial (HCC) 8. Other Shock (Hemorrhagic Shock) (HCC) 9. Fracture Pelvis Multiple Closed With Stable Disruption Pelvis Ring Initial (HCC) 10. Dysphagia [R13.10] 11. Decline Cognitive [R41.81] 12. 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 Subarachnoid Hematoma Trauma Without Loss Of Consciousness Subsequent [S06.6X0D] 14. Lack Of Coordination [R27.9] 15. Other Abnormalities Of Gait And Mobility [R26.89] 16. 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 Delirium [R41.0] History of Present Illness: Pt is an 83 year old male with no known medical history who presented to the hospital on 11/22 following a fall from approximately 6 feet off a ladder. He landed on his leftside and hit his head. He is amnesic to the events. Per his there are concerns that he may have dementia, but does not see a primary care physician. Trauma scans reeleaved: small amount of layering blood products in the occipital horn of the left lateral ventricle, small cortical hemorrhage versus focal subarachnoid hemorrhage anterior left frontal lobe, left pelvic fractures with associatedleft retroperitoneal hematoma, intramuscular hematomas involving the left gluteus and iliopsoas musc les and nondisplaced left anterior sixth rib fracture. Pt is s/p ORIF of the left acetabulum. Onset Date: 11/23/23 Patient/Caregiver Goals: Pt goal to return home. Patient Comments: Patient was sitting in bed with 1:1 room AUTOMATIC LEHR OPERATOR and nurse providing cares. Nursing identified Carlos Alberto fell this morning when mobilizing out of bed by himself. Carlos Alberto denied any extra pain from this. He was agreeable to participate in physical therapy. Precautions Weight Bearing Status: TTWB LLE - difficulty maintaining this Other Precautions: Fall risk, cognition, aspiration Fall Risk (65 and older) Fall in the last 12 months: Yes Did you have an injury with the fall?: Yes Are you fearful of falling?: Yes OBJECTIVE Pain: Asked about pain level but patient was unable to provide rating due to cognition. Vitals: Not indicated at this time Bed Mobility - Sit to Supine # of Assistants: 2 Level of Assistance: Moderate assistance Device: Head of bed elevated, Bed rail Comments: Encouraged greater patient participation in transfer but still required assist for guiding lower extremities over bed and bringing trunk to sitting. Sit to Stand Transfers # of Assistants: 2 Transfer Surface: Bed, Chair Transfer Equipment: Gait belt, Front wheeled walker Level of Assistance: Moderate assistance Comments: Performed repetitive sit<>stands from elevated bed and then at room chair for repositioning. Significant difficulty maintaining LLE TTWB precautions requiring physical assist to weight shift over right lower extremity, as well as trial of placing therapist's foot under left foot forblocking but cognition impacted understanding and this increased unsteadiness so therapist removed foot and encouraged greater right-sided lean. Stand to Sit Transfers # of Assistants: 2 Transfer Surface: Bed, Chair Transfer Equipment: Gait belt, Front wheeled walker Level of Assistance: Moderate assistance Comments: Greater assist needed today due to increased soreness from fall earlier this morning. ASsisted at slowed descent and guiding hips back onto bed or further into chair. Bed, Chair, Wheelchair Transfers # of Assistants: 2 Transfer Surface: Chair, Bed Transfer Approach: To Transfer Equipment: Front wheeled walker Level of Assistance: Maximal assistance Comments: Required maximal assist of 2 for postural control, physical assist, and encouraging right-sided weight shift to assist in maintaining LLE TTWB but this was difficult for patient to fully adhere to and still placed significant weight through foot. Advised nursing to continue using overheadceiling lift to return to bed. Patient/Family Training: Educated on weightbearing restrictions with limited carry over or verbalization of understanding. At the end of today's therapy session patient was left seated in bedside chair 1:1 staff present with an appropriate call light within reach. Patient's needs and questions addressed during today's session. Assessment Carlos Alberto has significant difficulty maintaining left lower extremity TTWB precautions with sit<>stand and stand pivot transfers. He required moderate assist of 2 for bed mobility, moderate assist of 2 for sit<>stand transfers with front wheeled walker, and maximal assist of 2 for stand pivot transfer with front wheeled walker to transfer to room recliner. Attempted to trial past techniques in prior physical therapy sessions to encourage weightbearing precaution adherence, but this was not as effective today as increased confusion and unsteadiness. Recommend ongoing use of overhead ceiling lift system for out of bed transfers in light of limited carry over of TTWB precautions. Carlos Alberto will significantly benefit from ongoing physical therapy to progress in transfers, initiate gait as appropriate, and continue with strength, balance, and endurance training. Carlos Alberto is demonstrating cognitive impairments that is impacting carry through and safe progression in care. Barriers to a safe discharge home: Barriers to Discharge Home: Current functional status, Fall risk, Safety concerns Comorbid Conditions: None Personal Factors: Age, Balance impairment, History of falls, Needs assistive device Discharge Therapy Needs - PT: Ongoing skilled physical therapy Level of Care Needed - PT: Assistance with bed mobility, Assistance with transfers (Comment), Assistance with walking and moving around the home, Assistance with stairs, Physical assistance needed, Cognitive assistance needed Skilled therapy can include physical therapy provided by home health, outpatient clinic, or a post-acute facility. The location of these services is determined by the patient's care team in partnership with patient/family. Functional Goals and Timeframes: PT Goal #1: Patient will demonstrate independence with supine to/from sit transfer without use of hospital bed features to progress functional mobility and return to prior level of function. PT Goal #1 Status: Slowly progressing PT Goal #2: Patient will demonstrate functional transfers with moderate assitance with least restrictive assistive device while maintaining TTWB on LLE to progress functional mobility and facilitate return to prior level of function. PT Goal #2 Status: Slowly progressing PT Goal #3: Patient will ambulate 10ft or greater with least restrictive assistive device while maintaining TTWB on LLE with minimal assistance in order to progress functional mobility and facilitatereturn to prior level of function. PT Goal #3 Status: Ongoing Progress: Slow progress, cognitive deficits Plan Patient agrees with the plan of care and goals. Treatment Plan: PT Frequency: 5 times per week PT Amount: 1 visit per day PT Inpatient Duration : Until goals are met or hospital discharge Plan: Continue with current plan PT Plan Comments: Skilled physical therapy to promote safety and independence with functional mobility, decrease fall risk, determine appropriate durable medical equipment needs, and aid with discharge planning Treatment interventions may include: Treatment/Interventions: Therapeutic exercise, Therapeutic functional activity, Neuromuscular re-education, Gait training Time Spent with Patient Therapeutic Interventions Therapeutic Activity (min): 26 min Time Tracking Total Timed Units (min): 26 min Total Treatment Time (min): 26 min Sonali Meng P.T., Giselle * Lalita Bacon APRN, C.N.P., D.N.P. - 12/04/2023 8:11 AM CDT Images from the original note were not included. SUBJECTIVE I met and examined Mr. Grayson this morning. Mr. Grayson is hospital day 11 for management of histraumatic injuries following a fall from ladder. Patient was laying in bed this morning upon my arrival with a AUTOMATIC LEHR OPERATOR in the room. He does not appear to be in any pain or discomfort. Alert and oriented x 2 this morning (self & place). Tolerating his advanced diet of soft & bite sized with 1.4 L of oral intake noted. Adequate urine output of 1.9 L (245 cc of this was spontaneous voiding priorto intermittent cathing) we will continue with the voiding schedule. Left hip Davol drain remains in place with sanguineous output noted, minimal. Left hip ivac remains in place, holding seal. He remains hemodynamically stable and afebrile. I received a call from the RN this morning at 0645 that the patient had a fall in the room from the chair. Per the AUTOMATIC LEHR OPERATOR that was in the room the patient was ambulating with 1 assist with the walker and gait belt when he grabbed onto the side of the bed and slowly lowered himself to the floor. Per their report he did not actually strike his knees he just had pressure on his knees for roughly 2 minutes until help could get to the room to get him back to bed. They did report that his left leg was in a obtuse angle for that duration of time while he was on the floor. I did speak with Ortho floyd this morning and we will obtain pelvic x-rays since he is post-op a week from ORIF of the left a cetabulum. Will page Ortho back to review films once completed. OBJECTIVE Temperature: [36.2 ??C-37.4 ??C] 36.6 ??C Resp Rate: [16-20] 16 Blood Pressure: (105-145)/(54-76) 117/54 SpO2: [90 %-97 %] 90 % Pulse Rate: [78-104] 95 Physical Exam General: no acute distress, laying in bed Pulmonary: lung sounds clear bilaterally; on room air Abdomen: soft, non-tender, non-distended Musculoskeletal: left hip (ivac in place, holding seal); Davol drain w/ sanguineous output); ecchymosis noted to the left flank above the ivac (non- tender to palpation, no hematoma or skin compromisenoted); left hand (skin tear covered w/ Mepilex) : voiding (intermittent cathing) Neurologic: alert and oriented x 2 (self & place) Psychological: calm & cooperative Diagnostics No new labs or diagnostics to review this AM. Will be obtaining new pelvis films this AM due to fall this morning. Consult Orders: IP CONSULT TO ORTHOPEDIC SURGERY IP CONSULT TO NEUROLOGICAL SURGERY IP CONSULT TO [facility] INTERNAL MEDICINE IP CONSULT TO [facility] INTERNAL MEDIC[facility] IP CONSULT TO PHYSICAL MEDICINE & REHABILITATION IP CONSULT TO NEUROLOGY IP CONSULT TO RAILWAY SWITCHMAN WOUND CARE HUMANITIES IN MEDICINE SERVICES ([facility]) IP CONSULT TO SENIOR NURSE MANAGER ELECTRONIC SYSTEMS SECURITY ASSESSMENT ASSESSMENT / PLAN Diet: Adult Diet Dysphagia; Thin (TN0); Soft and Bite Sized (MM6) Activity: Up w/ assistance, TTWB LLE Pain regimen: tylenol, triple pain cream, Lidoderm patch, oxycodone prn Bowel regimen: bisacodyl suppository, milk of mag, MiraLAX, senokot VTE chemoprophylaxis: Lovenox 30 mg bid GI prophylaxis: none Antibiotics: none Microbiology: none Dispo: SNF; referrals pending Today's plans: - Will obtain a pelvic x-ray to assess after fall due to recent operation of the left pelvis and will retouch base with [facility] resident this AM after x- rays result Mechanism: Fall from 6 ft ladder - TTS: 11/24 - SAS: 11/23 - FRAIL Score: Geriatrics consulted; following #1 History Of Falling - Care management consulted; SNF referrals pending - PMR PT/OT consulted #2 Subarachnoid Hematoma Trauma Without Loss Of Consciousness Subsequent #3 Contusion Scalp Initial Large left frontal scalp hematoma Small cortical hemorrhage vs focal subarachnoid hemorrhage (left frontal lobe - Neurosurgery Chief C consulted - Repeat Head CT (11/23): slight increase in IVH in the occipital horn of the left lateral ventricle - Serial head CT's were obtained and on 11/[address] showed decreased small amounts of blood products and no new hemorrhage - Started on DVT chemoprophylaxis 30 mg Lovenox bid on 11/29 evening --> was noted to have more significant altered mental status than usual the morning of 11/30 and a repeat Head CT was emergentlyobtained and was stable for DVT chemoprophylaxis was resumed - Will reach out to Neurosurgery after repeat US if need there is a need to transition to full anticoagulation 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) - PMR TBI consulted - Education given on concussion and TBI symptoms; was unable to be present during the assessment so minimal information given d/t his baseline cognition - Team will continue to following and assess the ongoing therapy and rehab needs #5 Thrombosis Deep Vein Lower Extremity Left (HCC) Acute soleal vein DVT; left leg - Currently on Lovenox 30 mg bid for DVT chemoprophylaxis, discussing with Neurosurgery when will be safe to transition to full strength anticoagulation; continuing mechanical SCD's while in bed - BLE US (11/27): acute DVT LLE soleal vein - Will plan to repeat a US of the BLE in a week (roughly 12/05) to re-assess the DVT to determine ifplacement of a IVC filter would be beneficial if unable to anticoagulate fully #6 Fracture Rib One Open Initial Left #7 Atelectasis #8 Effusion Pleural Nondisplaced, left 6th rib fracture - Started on rib fracture protocol but unable to participate d/t cognition - Continue with encouraging pulmonary hygiene as able (IS/deep breathing/coughing/CPAP) - No follow up required in the LP clinic for the one rib fracture #9 Fracture Acetabulum Other Closed Initial Left (HCC) #10 Fracture Pelvis Multiple Closed With Stable Disruption Pelvis Ring Initial (HCC) #11 Fracture Ilium Closed Initial Left (HCC) Multiple comminuted fractures of the left anterior & posterior pubic rami, acetabulum & iliac wing extending into the left SI joint w/ hemorrhage noted in the left retroperitoneum - OTS- 1 consulted - OR (11/24): ORIF of the left associated both column acetabular fracture (Dr. Higuera) via limited ilioinguinal w/ ASIS osteotomy plus Stoppa approach; closed over drains w/ iVAC - TTWB LLE - PMR PT/OT consulted; d/t cognition does not fully understand weight bearing restrictions - [address] (sanguineous output) --> ortho managing - Repeat pelvic imaging obtained this AM after patient was lowered to the floor with the help of bedside staff after he had some weakness ---> contacted [facility] & they will evaluate films once obtained - Will require follow up in the OTS clinic after dismissal; their team will order the follow up #12 Anemia Posthemorrhagic Acute (Blood Loss Anemia) #13 Postprocedural Hemorrhagic Shock Initial; resolved - Hgb 10.6 on 12/01 (10.7 /10.4 / 10.7). 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 If you have any questions or concerns please page the Trauma Service at [phone] * Kezia Lopes APRN, C.N.P., D.N.P. - 12/04/2023 7:37 AM CDT Geriatrics Consult - Progress Note SUBJECTIVE Seen this morning. He reportedly had an assisted fall this morning due to L sided weakness. No injuries. No agitation this morning although was fidgeting with one of his drains and needed to be re-directed. Last BM was on 12/01. I have reviewed the current medication list. OBJECTIVE VITAL SIGNS Temperature: [36.2 ??C-37.4 ??C] 36.6 ??C Resp Rate: [16-20] 16 Blood Pressure: (105-145)/(54-76) 117/54 SpO2: [90 %-97 %] 90 % Pulse Rate: [79-104] 95 PHYSICAL EXAM GENERAL: NAD, awake, in bed LUNGS: CTA. Normal respiratory effort on room air CARDIOVASCULAR: RRR no m/r/g GI/: Non-distended abdomen with normal bowel sounds MUSCULOSKELETAL: Edema LLE. DP pulses are symmetric and 1+. Gait not assessed SKIN: Wound Vac intact, suction drain intact NEURO: Oriented to person, no agitation DIAGNOSTICS I have independently reviewed labs and diagnostics. ASSESSMENT / PLAN Mr. Grayson is hospitalized on [facility] Trauma for evaluation and management of: Fracture Ilium Closed Initial Left (HCC). 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 Comorbidities include (collateral received from Mikayla- retired nurse) known cognitive impairment with significant short-term memory issues (independent with most IADLs and ADLs except finances), cataracts, macular degeneration, hard of hearing, BPH. He fell from a ladder while attempting to repair a leak on his roof. Sustained SAH, IVH, left 6th rib fracture, left complex pelvic fracture s/p ORIF 11/24. Course c/b left lower soleal vein DVT, hemorrhagic shock ( 7 units PRBCs, 2 units cell saver, 2 units FFPs, platelets 2 units), hypotension (resolved), hypoxic respiratory failure (resolved), urinary retention in the setting of known BPH requiring q.4 hours I&O cathing (recently started on tamsulosin, finasteride added 12/01), delirium (requiring IA and non violent restraints). Lisbeth consulted on 11/23 for delirium management. He was briefly on suvorexant and ramelteon->melatonin. 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 Increase mobility to match ability. Frequent reorientation. Provide moderate level of social and cognitive stimulation. Treat dehydration and constipation. Nonpharmacologic sleep promotion strategies. Continue new tamsulosin and finasteride. Continue q4h voiding schedule and encouraging him to sit at the edge of the bed or use commode for urination 2 assist with transfers to minimize risk of falls The above plan of care was discussed with Dr. Green, HIM programmer analyst consultant. I personally spent a total of 25 minutes providing and coordinating care today. Thank you for the opportunity to care for this patient. We will continue to follow with you. Pleasepage the Geriatrics Consult Service at [phone] with any questions or concerns. * Lizett Ashraf O.T., O.T.D., [facility] [place] - 12/03/2023 1:20 PM CDT Occupational Therapy Dysphagia Treatment SUBJECTIVE Patient's Name: Carlos Alberto Grayson Referring/Attending Provider: Landen Quinonez M.D. Medical Diagnosis: Anemia [D64.9] Contusion Buttock Initial [S30.0XXA] Subarachnoid Hemorrhage With Loss Of Conscious Initial (HCC) [S06.6X9A] Fracture Acetabulum Closed Initial Left (HCC) [S32.402A] Fracture Ilium Closed Initial Left (HCC) [S32.302A] History Of Falling [Z91.81] Other Shock (Hemorrhagic Shock) (HCC) [R57.8] Retroperitoneal Hematoma [K68.3] Reason for Referral: Reason for Referral: OT dysphagia Onset Date: 11/23/23 Payor: [facility] ADMINISTRATION / Plan: [facility] / Product Type: Indemnity / History of Present Illness: History of Present Illness: Pt is an 83 year old male with no known medical history who presented to the hospital on 11/22 following a fall from approximately 6 feet off a ladder. He landed on his left side and hit his head. He is amnesic to the events. Per his there are concerns that he may have dementia, but does not see a primary care physician. Trauma scans reeleaved: small amount of layering blood products in the occipital horn of the left lateral ventricle, small cortical hemorrhage versus focal subarachnoid hemorrhage anterior left frontal lobe, left pelvic fractures with associated left retroperitoneal hematoma, intramuscular hematomas involving the left gluteus and iliopsoas muscles and nondisplaced left anterior sixth rib fracture. Pt is s/p ORIF of the left acetabulum. Family/Caregiver Present: No Patient/Caregiver Goals: None stated Patient Comments: Patient agreeable to trial upgraded diet textures. OBJECTIVE Precautions Weight Bearing Status: TTWB LLE Other Precautions: Fall risk, cognition, aspiration OT Dysphagia Treatment: Educated patient and/or caregiver on aspiration precautions Observed a meal and provided feedback/instruction to patient, assessed readiness for diet upgrade Does the patient have a tracheostomy? No. Team Communication: Patient's nurse was contacted and patient's status was discussed, Other (comment) (AUTOMATIC LEHR OPERATOR present for therapy session) Patient was left in bedside chair at end of session with call light in reach, all needs met and questions answered. Additional Staff Present During Session: AUTOMATIC LEHR OPERATOR Assessment Time Dysphagia Assessment Completed: 1:20 pm Clinical Impression/Recommendations: Mr. Grayson was seen for dysphagia treatment. Today's session focused on assessing readiness to upgrade solid diet textures. Trial tray of Easy to Chew (EC7) foods and thin liquids was provided to assess readiness for diet upgrade. Patient noted to be highly impulsive and put one of the slices of chicken breast in his mouth all at once. Therapist provided education on how taking large bites and multiple bites at a time prior to swallowing increases his risk of choking and patient verbalized understanding but did not always follow through with subsequent bites/sips. Consistent cues for pacingrequired at beginning of meal, with moderate verbal cues for bite size and to take only one bite abbe time provided as meal progressed. There were no overt signs of aspiration noted with upgraded diet textures. Recommend Level 6 Soft and Bite-sized (SB6) dysphagia diet to promote small, bite sized pieces of food to reduce risk of choking. Mr. Grayson will continue to require supervision during meals and cues to take small bites and only one bite at a time. Will plan to follow up to assess dashawn ance to diet upgrade. Patient is below their functional baseline with swallowing function and skilled dysphagia services are medically necessary for this patient to safely progress oral intake. CURRENT DIET: Diet Recommendations - Solids: IDDSI Level 6 Soft & Bite-Sized Diet Recommendations - Liquids: IDDSI Level 0 Thin Recommended Form of Meds: With puree, Whole(one at a time) Transitional foods allowed: yes Recommendations: Dysphagia treatment Recommended Aspiration Precautions: Recommended Aspiration Precautions: Watch closely for signs of aspiration, Eat small bites, take small sips, eat slowly, Sit upright with all oral intake and when completing oral cares Recommended Compensation Techniques/Adaptive Equipment: Recommended Compensation Techniques/Adaptive Equipment: Requires supervision/assistance, Compensations for cognitive impairment, Alternate solid food with small amounts of liquids, No straws Compensations for Cognitive Impairment: Ensure a calm, distraction free environment, Assistance with feeding should be provided in an unhurried manner, Sit down near the patient when assisting with feeding whenever possible Positioning Recommendations: Upright as possible for all oral intake Recommendations for safe oral cares are as follows: -independent with regular or soft toothbrush/toothpaste Rehab potential: Mr. Grayson has good potential to achieve established occupational therapy goals within the time frame outlined below. Functional Goals and Timeframes: Goal #1: Dysphagia: Patient will tolerate safe and adequate nutrition/hydration on least restrictive diet possible. Progressing Goal #2: Dysphagia: Patient and/or caregiver will demonstrate compensatory techniques and aspiration precautions recommended above with all oral intake. Progressing Plan Patient agrees with the plan of care and goals. Treatment Interventions: Swallow dysfunction treatment OT Dysphagia Duration: Until goals are met or hospital duration OT Dysphagia Amount: 1 visit per day OT Dysphagia Frequency: 4 times per week Inpatient OT Dysphagia Received On Date: 12/03/23 OT - Next Inpatient Dysphagia Appointment: 12/04/23 Plan: Continue with current plan Plan Comments: next session: assess tolerance to diet upgrade Re-evaluate: As clinically indicated Treatment interventions may include: Plan for Next Session: Observe a meal Time Spent with Patient Therapeutic Interventions Swallow Dysfunction Treatment (min): 19 min Time Tracking Total Treatment Time (min): 19 min For any questions feel free to page OT dysphagia Tuesday through Tuesday 7:00am to 4:00pm: Our service pager at [facility]: [phone] Our service pager at [facility]: #[phone] * Lalita Bacon, LOC, C.N.P., D.N.P. - 12/03/2023 9:45 AM CDT Images from the original note were not included. SUBJECTIVE I met and examined Mr. Grayson this morning. Mr. Grayson is hospital day 10 for management of histraumatic injuries following a fall from a ladder. On my initial arrival patient was asleep with the 1:1 AUTOMATIC LEHR OPERATOR at bedside, I left the patient sleeping and returned later in the AM. Patient was then awake and eating breakfast. He was alert and oriented to himself, this has been his baseline. Denies any pain and appears comfortable. No trip difficulty with eating noted. Adequate oral intake noted with assistance of 460 cc. Adequate urine output of 2.1 L, he has been able to urinate more on his own. Last noted BM was on 12/01. Davol drain remains in place and holding suction with sanguineous output noted. No events overnight. He remains hemodynamically stable and afebrile. OBJECTIVE Temperature: [36.2 ??C-36.9 ??C] 36.9 ??C Resp Rate: [14-20] 18 Blood Pressure: (97-134)/(54-76) 122/63 SpO2: [92 %-97 %] 96 % Pulse Rate: [78-106] 87 Physical Exam General: no acute distress, laying in bed Pulmonary: lung sounds clear bilaterally; on room air Abdomen: soft, non-tender, non-distended Musculoskeletal: left hip (ivac in place (holding seal); Davol drain w/ sanguineous output); some ecchymosis noted to the left flank above the ivac (non-tender to palpation, no hematoma or skin compromise noted) : voiding (intermittent cathing) Neurologic: alert and oriented x 1 (self -- baseline) Psychological: calm Diagnostics I have reviewed labs and xray Consult Orders: IP CONSULT TO ORTHOPEDIC SURGERY IP CONSULT TO NEUROLOGICAL SURGERY IP CONSULT TO HOSPITAL INTERNAL MEDICINE IP CONSULT TO [facility] INTERNAL MEDICINE IP CONSULT TO PHYSICAL MEDICINE & REHABILITATION IP CONSULT TO NEUROLOGY IP CONSULT TO RAILWAY SWITCHMAN WOUND CARE HUMANITIES IN MEDICINE SERVICES ([facility]) IP CONSULT TO SENIOR NURSE MANAGER ELECTRONIC SYSTEMS SECURITY ASSESSMENT ASSESSMENT / PLAN Diet: Adult Diet Dysphagia; Thin (TN0); Minced and Moist (MM5) Activity: Up w/ assistance, TTWB LLE Pain regimen: tylenol, triple pain cream, Lidoderm patch, oxycodone prn Bowel regimen: bisacodyl suppository, milk of mag, MiraLAX, senokot VTE chemoprophylaxis: Lovenox 30 mg bid GI prophylaxis: none Antibiotics: none Microbiology: none Dispo: SNF; referrals pending Today's plans: - No new plan of care today; continue to work with therapies Mechanism: Fall from 6 ft ladder - TTS: 11/24 - SAS: 11/23 - FRAIL Score: Geriatrics consulted; following #1 History Of Falling - Care management consulted; SNF referrals pending - PMR PT/OT consulted #2 Subarachnoid Hematoma Trauma Without Loss Of Consciousness Subsequent #3 Contusion Scalp Initial Large left frontal scalp hematoma Small cortical hemorrhage vs focal subarachnoid hemorrhage (left frontal lobe - Neurosurgery Chief C consulted - Repeat Head CT (11/23): slight increase in IVH in the occipital horn of the left lateral ventricle - Serial head CT's were obtained and on 11/[address] showed decreased small amounts of blood products and no new hemorrhage - Started on DVT chemoprophylaxis 30 mg Lovenox bid on 11/29 evening --> was noted to have more significant altered mental status than usual the morning of 11/30 and a repeat Head CT was emergentlyobtained and was stable for DVT chemoprophylaxis was resumed - Will reach out to Neurosurgery after repeat US if need there is a need to transition to full anticoagulation 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) - PMR TBI consulted - Education given on concussion and TBI symptoms; was unable to be present during the assessment so minimal information given d/t his baseline cognition - Team will continue to following and assess the ongoing therapy and rehab needs #5 Thrombosis Deep Vein Lower Extremity Left (HCC) Acute soleal vein DVT; left leg - Currently on Lovenox 30 mg bid for DVT chemoprophylaxis, discussing with Neurosurgery when will be safe to transition to full strength anticoagulation; continuing mechanical SCD's while in bed - BLE US (11/27): acute DVT LLE soleal vein - Will plan to repeat a US of the BLE in a week (roughly 12/05) to re-assess the DVT to determine ifplacement of a IVC filter would be beneficial if unable to anticoagulate fully #6 Fracture Rib One Open Initial Left #7 Atelectasis #8 Effusion Pleural Nondisplaced, left 6th rib fracture - Started on rib fracture protocol but unable to participate d/t cognition - Continue with encouraging pulmonary hygiene as able (IS/deep breathing/coughing/CPAP) - No follow up required in the TMLP clinic for the one rib fracture #9 Fracture Acetabulum Other Closed Initial Left ([facility]) #10 Fracture Pelvis Multiple Closed With Stable Disruption Pelvis Ring Initial ([facility]) #11 Fracture Ilium Closed Initial Left ([facility]) Multiple comminuted fractures of the left anterior & posterior pubic rami, acetabulum & iliac wing extending into the left SI joint w/ hemorrhage noted in the left retroperitoneum - OTS- 1 consulted - OR (11/24): ORIF of the left associated both column acetabular fracture (Dr. Higuera) via limited ilioinguinal w/ ASIS osteotomy plus Stoppa approach; closed over drains w/ iVAC - TTWB LLE - PMR PT/OT consulted; d/t cognition does not fully understand weight bearing restrictions - [address] (sanguineous output) --> ortho managing - Will required follow up in the OTS clinic after dismissal #12 Anemia Posthemorrhagic Acute (Blood Loss Anemia) #13 Postprocedural Hemorrhagic Shock Initial; resolved - Hgb 10.6 (10.7 /10.4 / 10.7). 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 If you have any questions or concerns please page the Trauma Service at [phone] * Kezia Lopes APRN, C.N.P., D.N.P. - 12/03/2023 7:16 AM CDT Geriatrics Consult - Progress Note SUBJECTIVE Seen this morning. He was sleeping on and off. Per AUTOMATIC LEHR OPERATOR, he ate all his breakfast. He had a BM yesterday. Still requiring I/O caths. Became agitated overnight and received olanzapine. I have reviewed the current medication list. OBJECTIVE VITAL SIGNS Temperature: [36.2 ??C-36.8 ??C] 36.6 ??C Resp Rate: [14-20] 18 Blood Pressure: (97-134)/(54-76) 105/76 SpO2: [92 %-100 %] 97 % Pulse Rate: [76-106] 79 PHYSICAL EXAM GENERAL: NAD, in bed sleeping but easily awakens LUNGS: Normal respiratory effort on room air CARDIOVASCULAR: RRR no m/r/g GI/: Non-distended abdomen with normal bowel sounds MUSCULOSKELETAL: Edema LLE. DP pulses are symmetric and 1+. Gait not assessed SKIN: Wound Vac intact, suction drain intact NEURO: Oriented to person, no agitation DIAGNOSTICS I have independently reviewed labs and diagnostics. ASSESSMENT / PLAN Mr. Grayson is hospitalized on [facility] Trauma for evaluation and management of: Fracture Ilium Closed Initial Left (HCC). 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 Comorbidities include (collateral received from Mikayla- retired nurse) known cognitive impairment with significant short-term memory issues (independent with most IADLs and ADLs except finances), cataracts, macular degeneration, hard of hearing, BPH. He fell from a ladder while attempting to repair a leak on his roof. Sustained SAH, IVH, left 6th rib fracture, left complex pelvic fracture s/p ORIF 11/24. Course c/b left lower soleal vein DVT, hemorrhagic shock ( 7 units PRBCs, 2 units cell saver, 2 units FFPs, platelets 2 units), hypotension (resolved), hypoxic respiratory failure (resolved), urinary retention in the setting of known BPH requiring q.4 hours I&O cathing (recently started on tamsulosin, finasteride added 12/01), delirium (requiring IA and non violent restraints). Lisbeth consulted on 11/23 for delirium management. He was briefly on suvorexant and ramelteon->melatonin. 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 Increase mobility to match ability. Frequent reorientation. Provide moderate level of social and cognitive stimulation. Treat dehydration and constipation. Nonpharmacologic sleep promotion strategies. Continue new tamsulosin and finasteride. Continue q4h voiding schedule and encouraging him to sit at the edge of the bed or use commode for urination The above plan of care was discussed with Dr. Green, HIM programmer analyst consultant. I personally spent a total of 25 minutes providing and coordinating care today. Thank you for the opportunity to care for this patient. We will continue to follow with you. Pleasepage the Geriatrics Consult Service at [phone] with any questions or concerns. * Bella Torrez M.D. - 12/03/2023 6:37 AM CDT Orthopedic Service: OTS-1 Hospital Admission Day: 11/23/2023 Length of Stay: 10 Procedures: Surgery Information This Encounter Past Procedures (12/01/2022 to Today) Date Procedures Providers Loc / Dept 11/25/2023 OPEN REDUCTION INTERNAL FIXATION ACETABULUM. Naveed Higuera M.D.Markos, James R, M.D.Labott, Joshua R, M.D.Sherie Lozano M.D. [facility] OR SUBJECTIVE Mr. Grayson was seen and examined in his floor care room. He was quite sleepy this morning and wasmoving his extremities spontaneously, though not to command. No drain output treated over the last 24 hours. His incisional VAC is holding suction with a few cc of serosanguineous output in the canister, no significant change in this. OBJECTIVE VITALS Temperature: [36.1 ??C-36.8 ??C] 36.2 ??C Resp Rate: [14-20] 18 Blood Pressure: (97-134)/(51-72) 121/54 SpO2: [94 %-100 %] 95 % Pulse Rate: [76-106] 81 I/O last 3 completed shifts: In: 820 [P.O.:820] Out: 3675 [Urine:3625; Drains:50] PHYSICAL EXAM General: follows commands inconsistently, confused Cardiac: Hemodynamically stable. Lungs: Non-labored respirations on room air, satting well. Left Lower Extremity: Surgical incision CDI. Left ilioinguinal incisional vac. Calf soft and non-tender. Neurovascularly intact with palpable pulses, brisk cap refill. Sensation intact grossly to light touch throughout dermatomes. Fires tib ant, gastroc, ehl, fhl spontaneously, though not to command Drain: davol drain lateral to suction Output by Drain (mL) 12/01/23 0701 - 12/01/23 1900 12/01/23 190 - 12/02/23 0700 12/02/23 07 - 12/02/23 1900 12/02/23 190 - 12/03/23 0637 Closed/Suction Drain 1 Left;Lateral Hip Accordion 10 Fr. 50 LABS Recent Results (from the past 24 hour(s)) CBC with Differential, Blood Collection Time: 12/02/23 8:42 PM Result Value Hemoglobin 10.6 (L) Hematocrit 33.0 (L) Erythrocytes 3.59 (L) MCV 91.9 RBC Distrib Width 14.4 Platelet Count 217 Leukocytes 5.3 Neutrophils 3.35 Lymphocytes 0.90 (L) Monocytes 1.01 (H) Eosinophils <0.03 Basophils <0.03 Basic Metabolic Panel Collection Time: 12/02/23 8:42 PM Result Value Potassium, S 4.5 Sodium, S 137 Chloride, S 102 Bicarbonate, S 26 Anion Gap 9 BUN (Blood Urea Nitrogen), S 24 Creatinine 0.99 Estimated GFR (eGFR) 77 Calcium, Total, S 8.1 (L) Glucose, S 117 IMAGING DX Chest Portable 1 View Result Date: 11/25/2023 Impression: No change since 11/24/2023. Low lung volumes. Bibasilar atelectasis. Skeletal degenerative changes. Left rib fracture not well seen radiographically. Remainder negative. CT Head without IV Contrast Result Date: 11/24/2023 Impression: 1. 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 2. Punctate hyperdensity noted in the left frontal region on the prior study is again noted and possibly reflects a punctate cortical hemorrhage. 3. Mild asymmetric prominence of the extra-axial space over the left frontal convexity may reflect a small subdural effusion. ASSESSMENT / PLAN #1 s/p ORIF left associated both column acetabular fracture 11/[address] Higuera via limited ilioinguinal with ASIS osteotomy plus Stoppa approach --Activity: TTWB LLE. PT/OT to follow. --Antibiotics: Perioperative cefazolin x2 doses completed. --Blood: Hemodynamics have been relatively stable. Last hemoglobin 10.6, stable --Brace: none --Cultures/Path: None. --Diet: Per primary service. --Drains: 1 davol drain with 1\50 cc output in last 12 hour shift, continue to monitor. Remove davol drain when output less then 30 cc for two consecutive shifts; iVAC to incisions, few cc of serosanguineous output. --Dressing: Ivac in place. --VTE Prophylaxis: Mechanical prophylaxis with SCDs, early mobilization, and recommend subcutaneousheparin products per TCGS --Pain: per primary --Urinary: Per primary --Imaging: Postop imaging completed --Code: Full --Dispo: Anticipate discharge to SNF, per primary From 6am-6pm Tuesday-Tuesday, please contact OTS-1 with any questions regarding this patient. If overnight (6 PM to 6 AM) or any time on weekends, please contact the Orthopedic Surgery house resident marine resource economist at [phone] * Lalita Bacon, LOC, C.N.P., D.N.P. - 12/02/2023 8:14 PM CDT Images from the original note were not included. SUBJECTIVE I met and examined Mr. Grayson this morning. Mr. Grayson is hospital day 9 for management of his traumatic injuries following a 6 ft fall from a ladder. He was resting in bed with the AUTOMATIC LEHR OPERATOR sitting at bedside. He is alert but only oriented to self, per staff this has been his baseline since he has been hospitalized. Denies any pain currently and does not appear to be in any acute discomfort. Continues to tolerate a oral diet with 1.8 L of oral intake noted. Adequate urine output of 1.9 L with intermittent cathing, working on a voiding schedule to hopefully wean off of the I/o cathing. Left hip drain and incisional vac remains in place and working appropriately with 50 cc of sanguineous output noted in the drain. 2 recorded bowel movements in the past 24 hours. No acute events overnight. He remains hemodynamically stable and afebrile. OBJECTIVE Temperature: [36.1 ??C-36.8 ??C] 36.8 ??C Resp Rate: [16-20] 17 Blood Pressure: (107-135)/(49-69) 133/69 SpO2: [94 %-100 %] 100 % Pulse Rate: [76-92] 76 Physical Exam General: no acute distress, laying in bed Pulmonary: lung sounds clear bilaterally; on room air Abdomen: soft, non-tender, non-distended Musculoskeletal: left hip (ivac in place (holding seal); Davol drain w/ sanguineous output); some ecchymosis noted to the left flank above the ivac (non-tender to palpation, no hematoma or skin compromise noted) : voiding (intermittent cathing) Neurologic: alert and oriented x 1 (self -- baseline) Psychological: calm Diagnostics I have reviewed xray Consult Orders: IP CONSULT TO ORTHOPEDIC SURGERY IP CONSULT TO NEUROLOGICAL SURGERY IP CONSULT TO [facility] INTERNAL MEDICINE IP CONSULT TO [facility] INTERNAL MEDICINE IP CONSULT TO PHYSICAL MEDICINE & REHABILITATION IP CONSULT TO NEUROLOGY IP CONSULT TO RAILWAY SWITCHMAN WOUND CARE HUMANITIES IN MEDICINE SERVICES ([facility]) IP CONSULT TO SENIOR NURSE MANAGER ELECTRONIC SYSTEMS SECURITY ASSESSMENT ASSESSMENT / PLAN Diet: Adult Diet Dysphagia; Thin (TN0); Minced and Moist (MM5) Activity: Up w/ assistance, TTWB LLE Pain regimen: tylenol, triple pain cream, Lidoderm patch, oxycodone prn Bowel regimen: bisacodyl suppository, milk of mag, MiraLAX, senokot VTE chemoprophylaxis: Lovenox 30 mg bid GI prophylaxis: none Antibiotics: none Microbiology: none Dispo: SNF; referrals pending Today's plans: - Continue working on reorientation and delirium prevention strategies - Will repeat LLE US in 1 week to re-evaluate left lower soleal vein DVT --> until able to fullyanticoagulate - Repeat labs and CXR in the AM Mechanism: Fall from 6 ft ladder - TTS: 11/24 - SAS: 11/23 - FRAIL Score: Geriatrics consulted; following #1 History Of Falling - Care management consulted; SNF referrals pending - PMR PT/OT consulted #2 Subarachnoid Hematoma Trauma Without Loss Of Consciousness Subsequent #3 Contusion Scalp Initial Large left frontal scalp hematoma Small cortical hemorrhage vs focal subarachnoid hemorrhage (left frontal lobe - Neurosurgery Chief C consulted - Repeat Head CT (11/23): slight increase in IVH in the occipital horn of the left lateral ventricle - Serial head CT's were obtained and on 11/[address] showed decreased small amounts of blood products and no new hemorrhage - Started on DVT chemoprophylaxis 30 mg Lovenox bid on 11/29 evening --> was noted to have more significant altered mental status than usual the morning of 11/30 and a repeat Head CT was emergentlyobtained and was stable for DVT chemoprophylaxis was resumed - Will reach out to Neurosurgery tomorrow to discuss when able to transition to full dose anticoagulation d/t new lower limb DVT this admission 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) - PMR TBI consulted - Education given on concussion and TBI symptoms; was unable to be present during the assessment so minimal information given d/t his baseline cognition - Team will continue to following and assess the ongoing therapy and rehab needs #5 Thrombosis Deep Vein Lower Extremity Left (HCC) Acute soleal vein DVT; left leg - Currently on Lovenox 30 mg bid for DVT chemoprophylaxis, discussing with Neurosurgery when will be safe to transition to full strength anticoagulation; continuing mechanical SCD's while in bed - BLE US (11/27): acute DVT LLE soleal vein - Will plan to repeat a US of the BLE in a week (roughly 12/05) to re-assess the DVT to determine ifplacement of a IVC filter would be beneficial if unable to anticoagulate fully #6 Fracture Rib One Open Initial Left #7 Atelectasis #8 Effusion Pleural Nondisplaced, left 6th rib fracture - Started on rib fracture protocol but unable to participate d/t cognition - Continue with encouraging pulmonary hygiene as able (IS/deep breathing/coughing/CPAP) - No follow up required in the LP clinic for the one rib fracture #9 Fracture Acetabulum Other Closed Initial Left ([facility]) #10 Fracture Pelvis Multiple Closed With Stable Disruption Pelvis Ring Initial (HCC) #11 Fracture Ilium Closed Initial Left (HCC) Multiple comminuted fractures of the left anterior & posterior pubic rami, acetabulum & iliac wing extending into the left SI joint w/ hemorrhage noted in the left retroperitoneum - OTS- 1 consulted - OR (11/24): ORIF of the left associated both column acetabular fracture (Dr. Higuera) via limited ilioinguinal w/ ASIS osteotomy plus Stoppa approach; closed over drains w/ iVAC - TTWB LLE - PMR PT/OT consulted; d/t cognition does not fully understand weight bearing restrictions - [address] (sanguineous output) --> ortho managing - Will required follow up in the OTS clinic after dismissal #12 Anemia Posthemorrhagic Acute (Blood Loss Anemia) #13 Postprocedural Hemorrhagic Shock Initial; resolved - Hgb 10.7 (10.4 / 10.7). 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 If you have any questions or concerns please page the Trauma Service at [phone] * Tamia Pedraza, Ph.D., P.T., D.P.T. - 12/02/2023 5:20 PM CDT Physical Therapy Acute Hospital Inpatient Treatment SUBJECTIVE Patient's Name: Carlos Alberto Grayson Reason for Referral: PT eval and treat - brain consult Medical Diagnosis: 1. Fracture Ilium Closed Initial Left (HCC) 2. History Of Falling 3. Retroperitoneal Hematoma 4. Fracture Acetabulum Closed Initial Left (HCC) 5. Contusion Buttock Initial 6. Anemia 7. Subarachnoid Hemorrhage With Loss Of Conscious Initial (HCC) 8. Other Shock (Hemorrhagic Shock) (HCC) 9. Fracture Pelvis Multiple Closed With Stable Disruption Pelvis Ring Initial (HCC) 10. Dysphagia [R13.10] 11. Decline Cognitive [R41.81] 12. 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 Subarachnoid Hematoma Trauma Without Loss Of Consciousness Subsequent [S06.6X0D] 14. Lack Of Coordination [R27.9] 15. Other Abnormalities Of Gait And Mobility [R26.89] History of Present Illness: Pt is an 83 year old male with no known medical history who presented to the hospital on 11/22 following a fall from approximately 6 feet off a ladder. He landed on his leftside and hit his head. He is amnesic to the events. Per his there are concerns that he may have dementia, but does not see a primary care physician. Trauma scans reeleaved: small amount of layering blood products in the occipital horn of the left lateral ventricle, small cortical hemorrhage versus focal subarachnoid hemorrhage anterior left frontal lobe, left pelvic fractures with associatedleft retroperitoneal hematoma, intramuscular hematomas involving the left gluteus and iliopsoas musc les and nondisplaced left anterior sixth rib fracture. Pt is s/p ORIF of the left acetabulum. Onset Date: 11/23/23 Patient/Caregiver Goals: Pt goal to return home. Patient Comments: Patient sitting edge of bed with 1:1 staff on therapist arrival. He is agreeable to participate in therapy. He notes some pain in his left knee but does not rate, does not appear focused on it. Precautions Weight Bearing Status: TTWB LLE Other Precautions: Fall risk, cognition, aspiration Fall Risk (65 and older) Fall in the last 12 months: Yes Did you have an injury with the fall?: Yes Are you fearful of falling?: Yes OBJECTIVE Pain: Patient notes pain in left knee, does not rate. Vitals: Not indicated at this time Bed Mobility - Sit to Supine # of Assistants: 2 Level of Assistance: Maximal assistance Device: Bed rail, Head of bed elevated Cuing: Verbal, Tactile Comments: Pivoting approach used to avoid time laying on L side; one helper managing trunk, one at B LE; patient able to assist with trunk and B UE Sit to Stand Transfers # of Assistants: 2 Transfer Surface: Bed Transfer Equipment: Gait belt, Front wheeled walker Level of Assistance: Moderate assistance Assessment/Delivery: Assessed, Instructed, Facilitated, Therapist assisted Comments: Emphasis placed on weighted R LE to keep TTWB on L LE. Focused on trunk lean biased to R,therapist at L LE to keep slight knee flexion and limited weighting through L foot. Process completed x2 with reasonable success managing weight bearing precautions. Stand to Sit Transfers # of Assistants: 2 Transfer Surface: Bed Transfer Equipment: Gait belt, Front wheeled walker Level of Assistance: Minimal assistance, Moderate assistance Assessment/Delivery: Instructed, Assessed, Therapist assisted, Facilitated Comments: Provided physical assistance to return to sitting, guide hips back unto bed; worked to maintain L TTWB in transition Seated Exercise - Side Addressed: Right, Left Sitting Surface: Bed Seated Exercise: Marching, Long arc quads Exercise Mode: Active motion against gravity, Active assistance (comment) Seated Exercise Comments: Provided therapist hand target for patient to move toward; Marching on R only, LAQ with shortened range and active assistance support from therapist on L; Emphasized eccentric control with LAQ on R, patient had some dificulty following cues Seated Exercise 1: Seated forward trunk leans with R sideded bias. PT had patient use one UE on bed, other holding PT forearm; PT guided movement forward for anterior weight shift, helped keep R footin contact with ground Patient/Family Training: Patient educated on TTWB for L LE with simple phrases and tactile cues. When asked to describe the concept back, he struggled to explain. Patient able to reduce weight bearing on L with standing and facilitation as described above. At the end of today's therapy session patient was left in bed 1:1 staff present with an appropriatecall light within reach. Patient's needs and questions addressed during today's session. Assessment Patient is demonstrating progress with participation in physical therapy. He appears more alert than when last working with this PT. His communication suggests some confusion about his situation withmoments of reasonable awareness. He is demonstrating good sitting balance edge of bed with UE support. He is able to engage in LE exercises, seated balance training, and sit/stand transfers with assist of 1-2 helpers. He had improved ability to maintain L LE TTWB today relative to prior notes. Approach used included helping him lean forward and over R LE when initiating the stand and PT helping limit weight bearing through L LE. Patient will benefit from continued skilled therapy to progress his mobility during recovery. Barriers to a safe discharge home: Barriers to Discharge Home: Current functional status, Fall risk, Safety concerns Comorbid Conditions: None Personal Factors: Age, Balance impairment, History of falls, Needs assistive device Discharge Therapy Needs - PT: Ongoing skilled physical therapy Level of Care Needed - PT: Assistance with bed mobility, Assistance with transfers (Comment), Assistance with walking and moving around the home, Assistance with stairs, Physical assistance needed, Cognitive assistance needed Skilled therapy can include physical therapy provided by home health, outpatient clinic, or a post-acute facility. The location of these services is determined by the patient's care team in partnership with patient/family. Functional Goals and Timeframes: PT Goal #1: Patient will demonstrate independence with supine to/from sit transfer without use of hospital bed features to progress functional mobility and return to prior level of function. PT Goal #1 Status: Slowly progressing PT Goal #2: Patient will demonstrate functional transfers with moderate assitance with least restrictive assistive device while maintaining TTWB on LLE to progress functional mobility and facilitate return to prior level of function. PT Goal #2 Status: Slowly progressing PT Goal #3: Patient will ambulate 10ft or greater with least restrictive assistive device while maintaining TTWB on LLE with minimal assistance in order to progress functional mobility and facilitatereturn to prior level of function. PT Goal #3 Status: Ongoing Plan Patient agrees with the plan of care and goals. Treatment Plan: PT Frequency: 5 times per week PT Amount: 1 visit per day PT Inpatient Duration : Until goals are met or hospital discharge Plan: Continue with current plan PT Plan Comments: Skilled physical therapy to promote safety and independence with functional mobility, decrease fall risk, determine appropriate durable medical equipment needs, and aid with discharge planning Treatment interventions may include: Treatment/Interventions: Therapeutic exercise, Therapeutic functional activity, Neuromuscular re-education, Gait training Time Spent with Patient Therapeutic Interventions Therapeutic Activity (min): 20 min Therapeutic Exercise (min): 12 min Time Tracking Total Timed Units (min): 32 min Total Treatment Time (min): 32 min Tamia Pedraza, Ph.D., P.T., D.P.T. * Harmony Kee Ed.D., M.S., O.T., BCPR - 12/02/2023 2:28 PM CDT Occupational Therapy Acute Hospital Inpatient Progress Note SUBJECTIVE Patient's Name: Carlos Alberto Grayson Reason for Referral: OT eval and treat - brain consult Medical Diagnosis: 1. Fracture Ilium Closed Initial Left (HCC) 2. History Of Falling 3. Retroperitoneal Hematoma 4. Fracture Acetabulum Closed Initial Left (HCC) 5. Contusion Buttock Initial 6. Anemia 7. Subarachnoid Hemorrhage With Loss Of Conscious Initial (HCC) 8. Other Shock (Hemorrhagic Shock) (HCC) 9. Fracture Pelvis Multiple Closed With Stable Disruption Pelvis Ring Initial (HCC) 10. Dysphagia [R13.10] 11. Decline Cognitive [R41.81] 12. 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 Subarachnoid Hematoma Trauma Without Loss Of Consciousness Subsequent [S06.6X0D] 14. Lack Of Coordination [R27.9] 15. Other Abnormalities Of Gait And Mobility [R26.89] History of Present Illness: Pt is an 83 year old male with no known medical history who presented to the hospital on 11/22 following a fall from approximately 6 feet off a ladder. He landed on his leftside and hit his head. He is amnesic to the events. Per his there are concerns that he may have dementia, but does not see a primary care physician. Trauma scans reeleaved: small amount of layering blood products in the occipital horn of the left lateral ventricle, small cortical hemorrhage versus focal subarachnoid hemorrhage anterior left frontal lobe, left pelvic fractures with associatedleft retroperitoneal hematoma, intramuscular hematomas involving the left gluteus and iliopsoas musc les and nondisplaced left anterior sixth rib fracture. Pt is s/p ORIF of the left acetabulum. Onset Date: 11/23/23 Patient/Caregiver Goals: Pt goal to return home. Precautions Weight Bearing Status: TTWB LLE Other Precautions: Fall risk, cognition, aspiration Fall Risk (65 and older) Fall in the last 12 months: Yes Did you have an injury with the fall?: Yes Are you fearful of falling?: Yes OBJECTIVE Pain: Patient did not report pain Vitals: Cognition Cognitive assessment method: Therapist observations Arousal/Alertness: Appropriate responses to stimuli Attention: Impairments noted Sustained: Moderate Orientation: Disoriented to place, Disoriented to time, Disoriented to situation Following Commands: One Step Commands One Step Commands: Follows one step commands with increased time, Follows one step commands with repetition Patient/Family Education: NA At the end of today's therapy session patient was left 1:1 staff present seated at edge of bed withan appropriate call light within reach. Patient's needs and questions addressed during today's session. Assessment Patient continues to participate in OT interventions and is slowly progressing toward functional goals. Improved sustained attention to cognitive activity today, but disorientation and signs of delirium persist. Patient continues to benefit from skilled occupational therapy to progress safety and independence in self cares and functional mobility. Barriers to Discharge Home: Current functional status, Fall risk, Safety concerns Comorbid Conditions: None Personal Factors: Age, Balance impairment, History of falls, Needs assistive device Discharge Therapy Needs - OT: Ongoing skilled occupational therapy Level of Care Needed - OT: Assistance with toileting, Assistance with toilet/shower transfers, Assistance with medication set up/administration, Assistance with showering/bathing, Assistance with eating/feeding, Assistance with dressing, Assistance with meal preparation, Assistance with financial ma nagement, Assistance with transportation, Assistance with housekeeping, Assistance with shopping, Cognitive assistance needed, Physical assistance needed Skilled therapy can include occupational therapy provided by home health, outpatient clinic, or a post-acute facility. The location of these services is determined by the patient's care team in partnership with patient/family. Recommended Adaptive Equipment - OT: Other (Comment) (Ongoing assessment) Functional Goals and Timeframes: OT Goal #1: STG: By goal review date, pt will complete transfer to/from the commode with least restrictive transfer device and moderate physical assistance. OT Goal #2: STG: By goal review date, pt will complete one simple grooming task from seated base with setup assistance. OT Goal #3: LTG: By discharge, pt and caregivers will demonstrate understanding of all adaptive equipment recommendations for home going in order to maximize safety and independence with ADL/IADL tasks. Progress: Progressing toward goals Plan Patient agrees with the plan of care and goals. Treatment Plan: OT Frequency: 5 times per week OT Amount: 1 visit per day OT Inpatient Duration : Until goals are met or hospital discharge Plan: Plan of care initiated OT Plan Comments: Next Session: orientation, simple ADL, seated balance Treatment interventions may include: Treatment Interventions: Therapeutic exercise, Therapeutic functional activity, Neuromuscular re-education, Self-care/home management, Cognitive skills training Time Spent with Patient Therapeutic Interventions Therapeutic Activity (min): 15 min Time Tracking Total Timed Units (min): 15 min Total Treatment Time (min): 15 min Harmony Kee Ed.D., M.S., O.T., BCPR * Bereket Bundy, R.Ph. - 12/02/2023 1:55 PM CDT Pharmacist Progress Note Reason for admission: 83 yo s/p fall from ladder, subarachnoid hematoma, Rib fracture acetabular fracture, pelvis fracture, fracture ilium PMH: history of falling, dementia, OBJECTIVE Home medications: none per med history Held: N/A Changed: N/A Prophylaxis: enoxaparin 30 mg bid ASSESSMENT / PLAN Med profile, labs and notes reviewed. Bereket Bundy, R.Ph. * Lizett Ashraf O.T., O.TDominic, [facility] - 12/02/2023 12:14 PM CDT 12/02/23 1530 Reason Therapy Missed Reason Therapy Missed Patient declined therapy (Trial tray ordered to assess readiness to upgrade diet. Mr. Grayson was unwilling to trial upgraded diet textures or any diet textures upon therapist arrival, despite encouragement and education onimportance of nutrition and safety with swallowing. He reports he is not hungry and does not need any more food right now. Will plan to stop by this weekend to trial upgraded diet textures, as able.) Tamia Ashraf O.T., O.TDominic, SCFES Electronically signed by Lizett Ashraf O.T., O.T.D., [facility] at 12/02/2023 3:35 PM CDT * Hayley Durham L.G.S.W., M.S.W. - 12/02/2023 11:32 AM CDT SUBJECTIVE Social Work spoke with BEN Elizabeth at [facility] ([phone]). Social Work communicated with Nicolette at [facility]. They will need patient off Safety Plan for 24 hours prior to admission. They also are unable to verify patient's Medicare number. OBJECTIVE Per [place] Social Work, patient [place] not have [place] short-term rehab or long-term care benefits. He does have [place] home care benefits. Patient is on Safety Plan. Patient is anticipated to be ready for discharge by 12/02/23. Referrals sent: [facility]facility full) [facility] -[facility] (facility full) [facility] (they do not accept for short term rehab) [facility] - SNF ASSESSMENT / PLAN ASSESSMENT Patient's Safety Plan may complicate disposition. PLAN Patient's desires patient discharge to short term rehab as close to [place] as possible. Social Work will continue to provide support. Social Work will continue to assist with discharge needs. Aimee Ahuja, M.S.W. 12/02/23 * Kelly Johnson P.A.-C. - 12/02/2023 9:01 AM CDT Geriatrics Consult - Progress Note SUBJECTIVE Mr. Grayson was sitting up in bed eating breakfast. He reported feeling overall unwell, but had nospecific complaints. When asked where he was he stated he was in a drive in restaurant because theyhad brought the food right to him. He was unable to answer any other orientation questions. When asked if he was in a grocery store, hoahaoism, hospital he stated it all depends because of what he is going to do when he gets home. He multiple times told me that he needed to repent and follow the lord. I have reviewed the current medication list. OBJECTIVE VITAL SIGNS Temperature: [36.2 ??C-37 ??C] 36.3 ??C Resp Rate: [16-17] 17 Blood Pressure: (107-135)/(49-70) 131/56 SpO2: [94 %-98 %] 98 % Pulse Rate: [76-92] 76 PHYSICAL EXAM General: non-toxic in no acute distress, appears stated age Mental: alert, interactive, unable to answer orientation questions, stated he was in a drive in restaurant Skin: warm, dry, well-perfused Eyes: anicteric sclerae, pupils equal, round, extraocular movements intact ENT: moist mucous membranes Lungs: Even non-labored respirations on room air Neuro: No obvious focal sensorimotor deficit DIAGNOSTICS I have independently reviewed labs and diagnostics. ASSESSMENT / PLAN Mr. Carlos Alberto Grayson is a 83 y.o. 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 His hospital course has been complicated by acute anemia, hypotension (resolved), hypoxic respiratory failure (resolved), acute delirium. Medical comorbidities are significant for cataracts, macular degeneration, hard of hearing,BPH. 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 Grayson has known chronic cognitive impairment with significant short-term memory issues and inability to manage his own finances. He was otherwise independent in most IADLs and ADLs. He was a strong familial history of dementia and likely has an etiology of Alzheimer's. Unfortunately, he continues to exhibit delirium and intermittent agitation. He is still requiring and IA. Attempting to optimize his sleep/wake cycle. Likely today's episode is related to his delirium, but will defer additional work up to TCGS team. Regarding his urinary retention, he was recently started on tamsulosin (could consider increase to 0.8 mg 12/03), but is still requiring q4h I&O cathing. He has a history of BPH and will start finasteride in addition to voiding schedule. Will continue q4h voiding schedule with PVRs and encouraging patient to get to side of bed or out of bed to use the urinal as this may assist with voiding. Hop eful that this will improve as mentation improves. RECOMMENDATIONS: Continue 3 mg melatonin QHS Continue olanzapine 2.5 mg PRN only if patient or staff safety is concerning General delirium prevention/management strategies: Minimize RAILWAY SWITCHMAN-acting medications. Increase mobility to match ability. Frequent reorientation. Provide moderate level of social and cognitive stimulation. Treat dehydration and constipation. Nonpharmacologic sleep promotion strategies. Continue new tamsulosin and finasteride. Continue q4h voiding schedule and encouraging him to sit at the edge of the bed or use commode for urination The above plan of care was discussed with Dr. Cornelius Green [phone]), HIM programmer analyst consultant. I personally spent a total of 35 minutes providing and coordinating care today. Thank you for the opportunity to care for this patient. We will continue to follow with you. Pleasepage the Geriatrics Consult Service at [phone] with any questions or concerns. * Mickey Benton M.D. - 12/02/2023 12:10 AM CDT Orthopedic Service: OTS-1 Hospital Admission Day: 11/23/2023 Length of Stay: 9 Procedures: Surgery Information This Encounter Past Procedures (12/01/2022 to Today) Date Procedures Providers Loc / Dept 11/25/2023 OPEN REDUCTION INTERNAL FIXATION ACETABULUM. Naveed Higuera M.D.Markos, James R, M.D.Labott, Joshua R, M.D.Sherie Lozano M.D. RST ROMB OR SUBJECTIVE Mr. Grayson was seen and examined in his floor care room. He was more interactive with me and participated in exam with an intact left lower extremity examination. Pain is very well controlled. His drain continues to have output with 150 cc out in the last 12 hour shift so this will be maintained.His incisional VAC is holding suction with a few cc of serosanguineous output in the canister, no significant change in this. OBJECTIVE VITALS Temperature: [36.2 ??C-37 ??C] 36.5 ??C Resp Rate: [16] 16 Blood Pressure: (107-135)/(49-70) 107/50 SpO2: [94 %-98 %] 94 % Pulse Rate: [75-92] 82 I/O last 3 completed shifts: In: 1880 [P.O.:1880] Out: 2375 [Urine:2335; Drains:40] PHYSICAL EXAM General: follows commands inconsistently, confused Cardiac: Hemodynamically stable. Lungs: Non-labored respirations on room air, satting well. Left Lower Extremity: Surgical incision CDI. Left ilioinguinal incisional vac. Calf soft and non-tender. Neurovascularly intact with palpable pulses, brisk cap refill. Sensation intact grossly to light touch throughout dermatomes. Fires tib ant, gastroc, ehl, fhl spontaneously, though not to command Drain: davol drain lateral to suction Output by Drain (mL) 11/30/23 0701 - 11/30/23 1900 11/30/23 1901 - 12/01/23 0700 12/01/23 0701 - 12/01/23189912/01/231900 - 12/02/23 0005 Closed/Suction Drain 1 Left;Lateral Hip Accordion 10 Fr. 150 40 LABS Recent Results (from the past 24 hour(s)) CBC without Differential Collection Time: 12/01/23 7:09 AM Result Value Hemoglobin 10.7 (L) Hematocrit 33.0 (L) Erythrocytes 3.60 (L) MCV 91.7 RBC Distrib Width 14.4 Platelet Count 179 Leukocytes 5.2 Basic Metabolic Panel Collection Time: 12/01/23 7:09 AM Result Value Potassium, S 4.4 Sodium, S 136 Chloride, S 103 Bicarbonate, S 26 Anion Gap 7 BUN (Blood Urea Nitrogen), S 23 Creatinine 0.97 Estimated GFR (eGFR) 78 Calcium, Total, S 7.8 (L) Glucose, S 115 IMAGING DX Chest Portable 1 View Result Date: 11/25/2023 Impression: No change since 11/24/2023. Low lung volumes. Bibasilar atelectasis. Skeletal degenerative changes. Left rib fracture not well seen radiographically. Remainder negative. CT Head without IV Contrast Result Date: 11/24/2023 Impression: 1. 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 2. Punctate hyperdensity noted in the left frontal region on the prior study is again noted and possibly reflects a punctate cortical hemorrhage. 3. Mild asymmetric prominence of the extra-axial space over the left frontal convexity may reflect a small subdural effusion. ASSESSMENT / PLAN #1 s/p ORIF left associated both column acetabular fracture 11/[address] Higuera via limited ilioinguinal with ASIS osteotomy plus Stoppa approach --Activity: TTWB LLE. PT/OT to follow. --Antibiotics: Perioperative cefazolin x2 doses completed. --Blood: Hemodynamics have been relatively stable. Last hemoglobin 10.7, uptrending --Brace: none --Cultures/Path: None. --Diet: Per primary service. --Drains: 1 davol drain with 1\50 cc output in last 12 hour shift, continue to monitor. Remove davol drain when output less then 30 cc for two consecutive shifts; iVAC to incisions, few cc of serosanguineous output. --Dressing: Ivac in place. --VTE Prophylaxis: Mechanical prophylaxis with SCDs, early mobilization, and recommend subcutaneousheparin products per TCGS --Pain: per primary --Urinary: Per primary --Imaging: Postop imaging completed --Code: Full --Dispo: Anticipate discharge to SNF, per primary From 6am-6pm Tuesday-Tuesday, please contact OTS-1 with any questions regarding this patient. If overnight (6 PM to 6 AM) or any time on weekends, please contact the Orthopedic Surgery house resident marine resource economist at [phone] * Landen Quinonez M.D. - 12/01/2023 5:04 PM CDT Patient seen reviewed with the trauma team. He had an episode of unresponsiveness on the commode. Patient was seen after this episode. Physical examination: Blood pressure 112/58, pulse 82, temperature 37 ??C, temperature source Oral, resp. rate 16, kgvfoe400.3 cm, weight 93.4 kg, SpO2 94%. Patient initially unresponsive to verbal. Pupils 2 mm bilaterally. Chest is clear but Bob-Lynch breathing pattern noted. Heart regular Abdomen is soft with scattered bowel sounds. Extremities warm. After sternal rub patient was awake and very pleasant and following commands. Impression/plan: Patient with episode of unresponsiveness which appeared to improve after noxious stimuli. He had follow-up head CT which is stable and does not show expansion of intracranial bleed after initiation of chemoprophylaxis. I suspect that his unresponsive episode was due to medications. We will review and try to modify medications. * Harmony Kee Ed.D., M.S., O.T., [facility] - 12/01/2023 2:34 PM CDT Occupational Therapy Acute Hospital Inpatient Progress Note SUBJECTIVE Patient's Name: Carlos Alberto Grayson Reason for Referral: OT eval and treat - brain consult Medical Diagnosis: 1. Fracture Ilium Closed Initial Left (HCC) 2. History Of Falling 3. Retroperitoneal Hematoma 4. Fracture Acetabulum Closed Initial Left (HCC) 5. Contusion Buttock Initial 6. Anemia 7. Subarachnoid Hemorrhage With Loss Of Conscious Initial (HCC) 8. Other Shock (Hemorrhagic Shock) (HCC) 9. Fracture Pelvis Multiple Closed With Stable Disruption Pelvis Ring Initial (HCC) 10. Dysphagia [R13.10] 11. Decline Cognitive [R41.81] 12. 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 Subarachnoid Hematoma Trauma Without Loss Of Consciousness Subsequent [S06.6X0D] 14. Lack Of Coordination [R27.9] 15. Other Abnormalities Of Gait And Mobility [R26.89] History of Present Illness: Pt is an 83 year old male with no known medical history who presented to the hospital on 11/22 following a fall from approximately 6 feet off a ladder. He landed on his leftside and hit his head. He is amnesic to the events. Per his there are concerns that he may have dementia, but does not see a primary care physician. Trauma scans reeleaved: small amount of layering blood products in the occipital horn of the left lateral ventricle, small cortical hemorrhage versus focal subarachnoid hemorrhage anterior left frontal lobe, left pelvic fractures with associatedleft retroperitoneal hematoma, intramuscular hematomas involving the left gluteus and iliopsoas musc les and nondisplaced left anterior sixth rib fracture. Pt is s/p ORIF of the left acetabulum. Onset Date: 11/23/23 Patient/Caregiver Goals: Pt goal to return home. Precautions Weight Bearing Status: TTWB LLE Other Precautions: Fall risk, cognition, aspiration Fall Risk (65 and older) Fall in the last 12 months: Yes Did you have an injury with the fall?: Yes Are you fearful of falling?: Yes OBJECTIVE Pain: patient does not report pain, appears comfortable Vitals: Cognition Cognitive assessment method: Therapist observations Arousal/Alertness: Appropriate responses to stimuli Attention: Impairments noted Sustained: Moderate Attention Comments: distracted during feeding task, picking at blanket on lap Orientation: Disoriented to place, Disoriented to time, Disoriented to situation One Step Commands: Follows one step commands with increased time, Follows one step commands with repetition Cognitive Intervention Comments: PAtient able to write name and 's name on basic personal information form/fact sheet. He was unable determine location despite direct cues. Continuing to reorienting using environmental cues (white board, clock) however patient with limited recall. Grooming Grooming Location: Supported sitting in bed Grooming Delivery: Facilitated, Therapist assisted Grooming Level of Assistance: Minimal assistance Grooming Comments: Direct cues for initiating grooming tasks. Set up of items and presented items to patient to identify. Patient combed hair with cue to initiate. He brushed teeth with direct cues to initiate, otherwise no cues for sequencing Patient/Family Education: NA At the end of today's therapy session patient was left in bed 1:1 staff present with an appropriatecall light within reach. Patient's needs and questions addressed during today's session. Assessment Patient continues to participate in OT interventions. Patient engages in seated grooming with direct cues to initiate and sequence task, although attention to task is improving. Patient is oriented to person and reorientation provided throughout session using environmental cues, however with limited sustained recall. Patient is below his baseline function and will benefit from skilled occupational therapy to progress safety and independence in self cares and functional mobility. Barriers to Discharge Home: Current functional status, Fall risk, Safety concerns Comorbid Conditions: None Personal Factors: Age, Balance impairment, History of falls, Needs assistive device Discharge Therapy Needs - OT: Ongoing skilled occupational therapy Level of Care Needed - OT: Assistance with toileting, Assistance with toilet/shower transfers, Assistance with medication set up/administration, Assistance with showering/bathing, Assistance with eating/feeding, Assistance with dressing, Assistance with meal preparation, Assistance with financial ma nagement, Assistance with transportation, Assistance with housekeeping, Assistance with shopping, Cognitive assistance needed, Physical assistance needed Skilled therapy can include occupational therapy provided by home health, outpatient clinic, or a post-acute facility. The location of these services is determined by the patient's care team in partnership with patient/family. Recommended Adaptive Equipment - OT: Other (Comment) (Ongoing assessment) Functional Goals and Timeframes: OT Goal #1: STG: By goal review date, pt will complete transfer to/from the commode with least restrictive transfer device and moderate physical assistance. OT Goal #2: STG: By goal review date, pt will complete one simple grooming task from seated base with setup assistance. OT Goal #3: LTG: By discharge, pt and caregivers will demonstrate understanding of all adaptive equipment recommendations for home going in order to maximize safety and independence with ADL/IADL tasks. Progress: Progressing toward goals Plan Patient agrees with the plan of care and goals. Treatment Plan: OT Frequency: 5 times per week OT Amount: 1 visit per day OT Inpatient Duration : Until goals are met or hospital discharge Plan: Plan of care initiated OT Plan Comments: Next Session: orientation, simple ADL, seated balance Treatment interventions may include: Treatment Interventions: Therapeutic exercise, Therapeutic functional activity, Neuromuscular re-education, Self-care/home management, Cognitive skills training Time Spent with Patient Therapeutic Interventions Home Management Training (min): 18 min Time Tracking Total Timed Units (min): 18 min Total Treatment Time (min): 32 min Harmony Kee Ed.D., M.S., O.T., BCPR * Michelle Elena, TRISTIN, LD - 12/01/2023 1:52 PM CDT Clinical Nutrition: Reassessment Clinical Nutrition continues to follow patient for assessment of nutritional status, oral intake encouragement, and oral nutrition supplement follow up/adjustment SUBJECTIVE Mr. Grayson is a 83 y.o. male admitted after a fall from a ladder. He sustained a pelvic fracture s/p ORIF of acetabulum on 11/25/23. Completed visit with patient and care team today as part of face to face care. Current Nutrition (since admission): patient eating ~50% of 2-3 meals daily. Today he endorses a good appetite, denied any nausea or abdominal pain. 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 AUTOMATIC LEHR OPERATOR reports eating is going well, he just tends to eat a little too quick. Nutrition history: Pt spouse notes that he typically eats well. He does not follow any special kindof diet. He likes anything strawberry and banana. He loves sweets especially cookies. Food Allergies: None. Chewing and Swallowing: On 11/25 his swallow was evaluated-Level 2-6 (mildly thick through Soft and Bite Sized). However, he was more confused in coming days and was downgraded to Level 5 (Minced and Moist), last assessed by dysphagia on 11/29. Nutrition education/counseling: RDN encouraged protein for healing. OBJECTIVE Current nutrition orders: Dietary Orders (From admission, onward) Start Ordered 11/30/23 1157 Adult Diet Dysphagia; Thin (TN0); Minced and Moist (MM5) Diet effective now Comments: 1:1 assist for PO intake Meds crushed into puree with no dry powder. Offer small sips of MT2 liquids prior to meds to prime the swallow. Question Answer Comment Diet texture: Dysphagia Drink/Liquid Consistency: Thin (TN0) Food Consistency: Minced and Moist (MM5) 11/30/23 1156 11/29/23 1405 Oral supplement -Supplement; Ensure Compact (chocolate); Take at: Lunch Until discontinued Question Answer Comment Type: Supplement Supplement: Ensure Compact (chocolate) Take at: Lunch 11/29/23 1404 11/29/23 1404 Oral supplement -Shake/Smoothie; Smoothie - Blueberry Banana; Take at: Breakfast Until discontinued Question Answer Comment Type: Shake/Smoothie Shake/Smoothie: Smoothie - Blueberry Banana Take at: Breakfast 11/29/23 1403 11/29/23 1404 Oral supplement -Supplement; Ensure Plus High Protein (strawberry); 1 each; Take at: Dinner Until discontinued Question Answer Comment Type: Supplement Supplement: Ensure Plus High Protein (strawberry) Size: 1 each Take at: Dinner 11/29/23 1404 GI Function: Last BM Date: 12/01/23, [place] Stool Chart: Type 6: Fluffy pieces with ragged edges, a mushy stool, Passing Flatus: Yes Integumentary/Wounds: Lines/Drains/Airways Wound Duration Wound 11/23/23 Face Left;Upper 7 days Wound 11/23/23 Partial thickness Hand Left 7 days Wound 11/25/23 Incision Pannus Medial 6 days Wound 11/25/23 Incision Pelvis Left;Lateral 6 days Wound 11/27/23 Arm Anterior;Distal;Left;Upper 4 days Wound 11/28/23 Traumatic Pretibial Right 2 days Medications: Scheduled Meds:acetaminophen, 650 mg, oral, Q6H vfdubazoklfmq-wavskjyx-waelbqnld in Lipoderm, 1 g, topical, TID bisacodyL, 10 mg, rectal, Daily [START ON 12/02/2023] finasteride, 5 mg, oral, Daily lidocaine, 1 patch, transdermal, Daily melatonin, 3 mg, oral, Daily at bedtime metoprolol tartrate, 12.5 mg, oral, BID polyethylene glycol, 17 g, oral, Daily sennosides, 17.2 mg, oral, BID tamsulosin, 0.4 mg, oral, Daily Continuous Infusions: PRN Meds:. fentaNYL (PF) HYDROmorphone OR HYDROmorphone ipratropium-albuteroL metoprolol naloxone OLANZapine Anthropometrics: Height: 180.3 cm Admission Weight: 86.3 kg (11/23/2023) Current Weight: 93.4 kg (11/30/23) [place] Body Weight (Calculated) : 75.3 kg BMI (Calculated): 28.7 kg/m?? Net IO Since Admission: 5,176.57 mL [12/01/23 1353] Weight history: Wt Readings from Last 12 Encounters: 11/30/23 93.4 kg Weight Change History: No weight change per . No weight history in medical record. Estimated Needs: Total Calorie Needs: 5140-9243 calories/day Method to Estimate Energy Needs: kcal/kg (22-25 kcal/kg) Weight Used for Equation Calculations: 86.3 kg Total Protein Needs: 85 - 102 grams/day (Method to Estimate Protein Needs (g/kg): 1 - 1.2 gm/kg) Weight Used to Calculate Protein Needs (Kg): 85 kg Nutrition Diagnosis: Swallowing difficulty related to fall and confusion as evidenced by need for dysphagia diet Malnutrition Criteria: Malnutrition Assessment: Well Nourished The patient does not meet the ASPEN Criteria of malnutrition based on: Energy Intake: No Change Interpretation of Weight Loss: No Change ASSESSMENT / PLAN ASPEN Criteria Malnutrition Status: Well Nourished Nutrition Intervention: Interventions: Medical food supplement, Increase nutrient intake with small, frequent meals and/or snacks, Vitamin and mineral supplements. Recommendations: RDN to start oral supplements for patient. Therapeutic multivitamin with minerals daily to support skin integrity/wound healing. Diet advancement per OT and future swallow results. Monitoring/Evaluation: Nutrition parameter to monitor: Meals/Supplement Intake, Diet Progression/NPO Status, Skin Integrity, Pertinent Labs, Nausea/Vomiting/Diarrhea, Chewing/Swallowing Desired Outcome: Consume adequate nutrition orally Patient Goal(s): Consume 50-100% of 3 meals daily and Maintain weight Clinical Nutrition will continue to follow. For questions about patient's nutritional care please contact pager [phone] on weekdays 07:30-16:00 or [phone] on weekends/holidays ([facility]). * Maria Del Carmen Diaz P.TYenny - 12/01/2023 1:43 PM CDT Physical Therapy Acute Hospital Inpatient Treatment SUBJECTIVE Patient's Name: Carlos Alberto Grayson Reason for Referral: PT eval and treat - brain consult Medical Diagnosis: 1. Fracture Ilium Closed Initial Left (HCC) 2. History Of Falling 3. Retroperitoneal Hematoma 4. Fracture Acetabulum Closed Initial Left (HCC) 5. Contusion Buttock Initial 6. Anemia 7. Subarachnoid Hemorrhage With Loss Of Conscious Initial (HCC) 8. Other Shock (Hemorrhagic Shock) (HCC) 9. Fracture Pelvis Multiple Closed With Stable Disruption Pelvis Ring Initial (HCC) 10. Dysphagia [R13.10] 11. Decline Cognitive [R41.81] 12. 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 Subarachnoid Hematoma Trauma Without Loss Of Consciousness Subsequent [S06.6X0D] 14. Lack Of Coordination [R27.9] 15. Other Abnormalities Of Gait And Mobility [R26.89] History of Present Illness: Pt is an 83 year old male with no known medical history who presented to the hospital on 11/22 following a fall from approximately 6 feet off a ladder. He landed on his leftside and hit his head. He is amnesic to the events. Per his there are concerns that he may have dementia, but does not see a primary care physician. Trauma scans reeleaved: small amount of layering blood products in the occipital horn of the left lateral ventricle, small cortical hemorrhage versus focal subarachnoid hemorrhage anterior left frontal lobe, left pelvic fractures with associatedleft retroperitoneal hematoma, intramuscular hematomas involving the left gluteus and iliopsoas musc les and nondisplaced left anterior sixth rib fracture. Pt is s/p ORIF of the left acetabulum. Onset Date: 11/23/23 Patient/Caregiver Goals: Pt goal to return home. Patient Comments: Patient greeted at bedside in PM and agreeable to treatment. Precautions Weight Bearing Status: TTWB LLE Other Precautions: Fall risk, cognition, aspiration Fall Risk (65 and older) Fall in the last 12 months: Yes Did you have an injury with the fall?: Yes Are you fearful of falling?: Yes OBJECTIVE Pain: He reports lie pain with sitting edge of bed. When roll to his right he reports increase painleft hip with yelling out. Vitals: Not indicated at this time Bed Mobility - Rolling Comments: Unable to roll unto right side with increase pain left hip. Bed Mobility - Supine to Sit # of Assistants: 2 Level of Assistance: Maximal assistance Device: Head of bed elevated, Other (draw sheet) Cuing: Verbal, Tactile Comments: Head of bed brought into full upright position. Assist and lower extremities and draw sheet at trunk to transition into sitting. Bed Mobility - Sit to Supine # of Assistants: 2 Level of Assistance: Maximal assistance Device: Other, Bed rail (draw sheet) Cuing: Verbal, Tactile Comments: Verbal cues for sequencing and assist at trunk and lower extremities to transition into supine Sit to Stand Transfers # of Assistants: 2 Transfer Surface: Bed Transfer Equipment: Gait belt, Front wheeled walker Level of Assistance: Moderate assistance Assessment/Delivery: Assessed, Instructed, Facilitated, Therapist assisted Comments: Moderate lift assist and left loewr extremity places forward and foot placed on DIRECT SUPPORT WORKER's foot to monitor weight bearing. Unable to maintain TTWB in standing Stand to Sit Transfers # of Assistants: 2 Transfer Surface: Bed Transfer Equipment: Gait belt, Front wheeled walker Level of Assistance: Minimal assistance, Moderate assistance Assessment/Delivery: Instructed, Assessed, Therapist assisted, Facilitated Comments: Provided physical assistanc to return to sitting, guide hips back unto bed. Balance Retraining Sitting: Static, Midline orientation (comment), Anterior/posterior leans Sitting Balance Comments: Patient inititally with weight bearing through bilateral upper extremities posterior to hips. He was able to bring hand to knees with verbal cues and sit with SBA . Supine Exercise - Side Addressed: Right (ankle pumps also on L; attempted thigh muscle isometrics on L, discontinued due to pain) Supine Exercise: Ankle pumps, Hip ABduction/ADduction, Heel slides, Short arc quads Exercise Mode: Active motion against gravity, Manual resistance, Isometric (manual resistance for isometic hip ab/adduction in R LE hooklying position only) Sets/Repetitions: 20 ankle pumps bilaterally, 10 reps other exercises on R Supine Exercise Comments: Short arc quads and ankle pumps completed bilaterally. He was able to follow directions for short arc quads and ankle pumps with physical cues. Patient/Family Training: Ongoing education on weight bearing left lower extremity with sitting and standing. At the end of today's therapy session patient was left in bed 1:1 staff present with an appropriatecall light within reach. Patient's needs and questions addressed during today's session. Assessment Patient is unable to maintain TTWB in standing and nursing to use ceiling lift for safe transfers to recliner. Patient able to follow directions for short arc quads and ankle pumps with physical cues. He is functioning below his baseline and has pain left hip limiting bed mobility. He will benefit from ongoing physical therapy for progression of strength, NMR and functional mobility per plan of care. Barriers to a safe discharge home: Barriers to Discharge Home: Current functional status, Fall risk, Safety concerns Comorbid Conditions: None Personal Factors: Age, Balance impairment, History of falls, Needs assistive device Discharge Therapy Needs - PT: Ongoing skilled physical therapy Level of Care Needed - PT: Assistance with bed mobility, Assistance with transfers (Comment), Assistance with walking and moving around the home, Assistance with stairs, Physical assistance needed, Cognitive assistance needed Skilled therapy can include physical therapy provided by home health, outpatient clinic, or a post-acute facility. The location of these services is determined by the patient's care team in partnership with patient/family. Functional Goals and Timeframes: PT Goal #1: Patient will demonstrate independence with supine to/from sit transfer without use of hospital bed features to progress functional mobility and return to prior level of function. PT Goal #1 Status: Slowly progressing PT Goal #2: Patient will demonstrate functional transfers with moderate assitance with least restrictive assistive device while maintaining TTWB on LLE to progress functional mobility and facilitate return to prior level of function. PT Goal #2 Status: Slowly progressing PT Goal #3: Patient will ambulate 10ft or greater with least restrictive assistive device while maintaining TTWB on LLE with minimal assistance in order to progress functional mobility and facilitatereturn to prior level of function. PT Goal #3 Status: Ongoing Plan Patient agrees with the plan of care and goals. Treatment Plan: PT Frequency: 5 times per week PT Amount: 1 visit per day PT Inpatient Duration : Until goals are met or hospital discharge Plan: Continue with current plan PT Plan Comments: Skilled physical therapy to promote safety and independence with functional mobility, decrease fall risk, determine appropriate durable medical equipment needs, and aid with discharge planning Treatment interventions may include: Treatment/Interventions: Therapeutic exercise, Therapeutic functional activity, Neuromuscular re-education, Gait training DIRECT SUPPORT WORKER Visit Trackin Time Spent with Patient Therapeutic Interventions Therapeutic Activity (min): 15 min Therapeutic Exercise (min): 12 min Time Tracking Total Timed Units (min): 27 min Total Treatment Time (min): 27 min Maria Del Carmen Diaz P.T.A. * Kelly Johnson P.A.-C. - 12/01/2023 11:27 AM CDT Geriatrics Consult - Progress Note SUBJECTIVE Mr. Grayson was seen on morning rounds with the Geriatric consults team. Nursing had seen him in the morning and he was conversational. He got up and walked (with assistance) to the commode. On the commode, he had an episode of decreased responsiveness and appeared to slump over. He was placed on a sling and transferred to the bed when our team arrived. Mr. Grayson was interactive, able to follow commands, and answer questions. He denied chest pain, difficulty breathing. He endorsed some SOB. I have reviewed the current medication list. OBJECTIVE VITAL SIGNS Temperature: [36.3 ??C-36.5 ??C] 36.5 ??C Resp Rate: [16] 16 Blood Pressure: (114-132)/(57-78) 114/57 SpO2: [92 %-95 %] 94 % Pulse Rate: [71-75] 75 PHYSICAL EXAM General: non-toxic in no acute distress, appears stated age Mental: arousable, following commands, answered questions with one word Skin: warm, dry, well-perfused Eyes: anicteric sclerae, pupils equal, round ENT: moist mucous membranes Lungs: Even non-labored respirations on room air Neuro: No obvious focal sensorimotor deficit DIAGNOSTICS I have independently reviewed labs. ASSESSMENT / PLAN Mr. Carlos Alberto Grayson is a 83 y.o. 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 His hospital course has been complicated by acute anemia, hypotension (resolved), hypoxic respiratory failure (resolved), acute delirium. Medical comorbidities are significant for cataracts, macular degeneration, hard of hearing,BPH. 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 Grayson has known chronic cognitive impairment with significant short-term memory issues and inability to manage his own finances. He was otherwise independent in most IADLs and ADLs. He was a strong familial history of dementia and likely has an etiology of Alzheimer's. Unfortunately, he continues to exhibit delirium and intermittent agitation. He is still requiring and IA. Attempting to optimize his sleep/wake cycle. Likely today's episode is related to his delirium, but will defer additional work up to TCGS team. Regarding his urinary retention, he was recently started on tamsulosin, but is still requiring q4h I&O cathing. He has a history of BPH and will start finasteride in addition to voiding schedule.Will continue q4h voiding schedule with PVRs and encouraging patient to get to side of bed or out of bed to use the urinal as this may assist with voiding. RECOMMENDATIONS: General delirium prevention/management strategies: Minimize RAILWAY SWITCHMAN-acting medications. Increase mobility to match ability. Frequent reorientation. Provide moderate level of social and cognitive stimulation. Treat dehydration and constipation. Nonpharmacologic sleep promotion strategies. He is sleeping well at night thus will transition to melatonin. Discontinue suvorexant and ramelteon. Start melatonin. Continue olanzapine 2.5 mg PRN for agitated behaviors that are not responsive to nonpharmacologic interventions Continue tamsulosin (new) and I&O cath PRN for urinary retention. Encourage him to sit at edge of bed or stand and walk to bathroom/commode. Start finasteride Order q4h voiding schedule with recommendation to have patient sit at side of bed or get to commode/bathroom to void. The above plan of care was discussed with Dr. Cornelius Green [phone]), HIM programmer analyst consultant. I personally spent a total of 50 minutes providing and coordinating care today. Thank you for the opportunity to care for this patient. We will continue to follow with you. Pleasepage the Geriatrics Consult Service at [phone] with any questions or concerns. * Hayley Durham L.G.S.W., M.S.W. - 12/01/2023 10:58 AM CDT SUBJECTIVE Social Work communicated with [facility] and updated them on patient's insurance coverage. Social Work sent fax request to patient's PCP MARCO A Pablo (fax: [phone]) for shortterm rehab referral outside of the [place] system. Social Work communicated with [facility] regarding regional [place] contracted short term rehab facilities. Social Work sent updated insurance information to [facility]. Social Work expanded referrals to include: [facility], [facility], [facility], and [facility] - SNF. OBJECTIVE Patient is anticipated to be ready for discharge by 12/02/23. [facility] (they do not accept for short term rehab) [facility] - SNF ASSESSMENT / PLAN ASSESSMENT Care Management obtained patient's VA number and Medicare number which will assist with accessing short term rehab placement. PLAN Patient's desires patient discharge to short term rehab as close to [place] as possible. Social Work will continue to provide support. Social Work will continue to assist with discharge needs. Aimee Ahuja, M.S.W. 12/01/23 * Rafal Deleon P.A.-C. - 12/01/2023 9:09 AM CDT SUBJECTIVE Mr. Grayson was seen and examined by the Trauma team in his room this morning. He reports no acutechanges; patient is seen in his bed this morning. He is pleasant and interactive but remains confused. Geriatrics remains involved and has assessed patient. Pt per report from spouse has has cognitive decline in recent years and may be at baseline. Denies any pain and or pertinent ROS. Difficulty/unable to continue to participate with appropriate pulmonary toileting. Passing stool and needing IO cath for UOP with 3+ L in IO Urine and 115 mL in non cathed urine. Patient is afebrile and hemodynamically stable at this time OBJECTIVE VITAL SIGNS Weight: 93.4 kg, BMI (Calculated): 28.7 kg/m??, Blood Pressure: 114/57, Pulse Rate: 75, Resp Rate: 16, Temperature: 36.5 ??C, SpO2: 94 % I/O last 3 completed shifts: In: 1260 [P.O.:760] Out: 3555 [Urine:3365; Drains:190] Vitals and nursing note reviewed. Constitutional General: He is not in acute distress. Appearance: He is not ill-appearing or toxic-appearing. Cardiovascular Rate and Rhythm: Normal rate. Comments: JVD noted Pulmonary Effort: Pulmonary effort is normal. No respiratory distress. Breath sounds: No wheezing. Abdominal General: There is distension. Tenderness: There is abdominal tenderness. Skin General: Skin is warm. Capillary Refill: Capillary refill takes less than 2 seconds. Neurological Mental Status: He is alert. He is disoriented. GCS: GCS eye subscore is 4. GCS verbal subscore is 4. GCS motor subscore is 6. DIAGNOSTICS I have reviewed labs, ECG, xray, CT, and diagnostics. DX Abdomen 1 View, DX Chest 1 View Result Date: 11/30/2023 Impression: Since yesterday, increased central pulmonary vascular congestion. Otherwise no significant change accounting for changes in patient positioning. Trace bilateral pleural effusions. No pneumothorax. Stable cardiac silhouette at the upper limit of normal. Aortic calcifications. Nonobstructive bowel gas pattern. Plate and screw fixation of the left hemipelvis with screw fixation of the left iliac crest. Left pelvic soft tissue surgical drains. CT Head without IV Contrast Result Date: 11/30/2023 Impression: Decreased small amount of layering blood products in the left lateral ventricle. No newhemorrhage. Lab results last 24 hours: Recent Results (from the past 24 hour(s)) CBC without Differential Collection Time: 12/01/23 7:09 AM Result Value Hemoglobin 10.7 (L) Hematocrit 33.0 (L) Erythrocytes 3.60 (L) MCV 91.7 RBC Distrib Width 14.4 Platelet Count 179 Leukocytes 5.2 Basic Metabolic Panel Collection Time: 12/01/23 7:09 AM Result Value Potassium, S 4.4 Sodium, S 136 Chloride, S 103 Bicarbonate, S 26 Anion Gap 7 BUN (Blood Urea Nitrogen), S 23 Creatinine 0.97 Estimated GFR (eGFR) 78 Calcium, Total, S 7.8 (L) Glucose, S 115 ASSESSMENT / PLAN Today's Plan: - 11/29 Initiated chemoprophylactic dose of enoxaparin 30mg BID 2/2 acute L- soleal vein DVT - Continue PO/OT and reorientation - f/u geriatric medicine recommendations New Consults Geriatric Medicine Neurosurgery C Neurology OTS 1 PT/OT Diet: Adult Diet Dysphagia; Mildly Thick (MT2); Minced and Moist (MM5) Activity: Up with assistance, LLE TTWB VTE Prophylaxis: SCDs, holding therapeutic anticoagulation until f/u head CT 11/29 vs IVC filter GI Prophylaxis: not indicated Bowel Regimen: MiraLax, Dulcolax, Senokot Pain: Tylenol, triple cream, lidocaine patch, Dilaudid Antibiotics: None indicated Disposition: TBD #1 History Of Falling - TTS: 11/24 - SAS: 11/23 - PMR TBI, PT/OT consulted #2 Subarachnoid Hematoma Trauma Without Loss Of Consciousness Subsequent #3 Contusion Scalp Initial - Neurosurgery Chief C consulted and following - 11/[address]: interval increase in left lateral ventricle hemorrhage - 11/[address] stable - 11/[address] stable. 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 PMR TBI continue to follow patient #5 Thrombosis Deep Vein Lower Extremity Left (HCC) Acute L-Soleal vein DVT - holding chemical DVT prophylaxis 2/2 serial unstable head CTs & neurosurgery recs requiring stable head CT - 11/[address]: stable/improved blood products - repeat head CT AM 11/29 - continue to hold therapeutic anticoagulation at this time; continue SCDs. Pending next head CT todetermine AC management - repeat BLLE Duplex US in one week (12/05) #6 Fracture Rib One Open Initial Left #7 Atelectasis #8 Effusion Pleural Nondisplaced Left anterior 6th rib fx - traumatic rib fracture protocol - aggressive pulmonary hygiene - multimodal pain regimen #9 Contusion Other Intra Abdominal Organs Initial #10 Fracture Acetabulum Other Closed Initial Left (HCC) #11 Fracture Pelvis Multiple Closed With Stable Disruption Pelvis Ring Initial (HCC) #12 Fracture Ilium Closed Initial Left (HCC) - OTS-1 consulted and following - 11/24 OR L-acetabular fx fixation. Closed over 2 drains w/ wound vac in place. - 11/27 PM: patient pulled midline drain out 2/2 delirium/agitation - LLE: TTWB - continue working w/ PT and OT - f/u per OTS #13 Anemia Posthemorrhagic Acute (Blood Loss Anemia) #14 Postprocedural Hemorrhagic Shock Initial - 11/24 status post OR for LLE fixation, patient received: 4u pRBC, 2u FFP, 4u plts 2/2 hemorrhagic shock - TEG has since been normalized. 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 * Cata Bower O.T., O.T.DTarik - 12/01/2023 8:39 AM CDT Occupational Therapy Dysphagia Treatment SUBJECTIVE Patient's Name: Carlos Alberto Grayson Referring/Attending Provider: Landen Quinonez M.D. Medical Diagnosis: Anemia [D64.9] Contusion Buttock Initial [S30.0XXA] Subarachnoid Hemorrhage With Loss Of Conscious Initial (HCC) [S06.6X9A] Fracture Acetabulum Closed Initial Left (HCC) [S32.402A] Fracture Ilium Closed Initial Left (HCC) [S32.302A] History Of Falling [Z91.81] Other Shock (Hemorrhagic Shock) (HCC) [R57.8] Retroperitoneal Hematoma [K68.3] Reason for Referral: Reason for Referral: OT dysphagia Onset Date: 11/23/23 Payor: [facility] ADMIN[facility]ATION / Plan: [facility] / Product Type: Indemnity / History of Present Illness: History of Present Illness: Pt is an 83 year old male with no known medical history who presented to the hospital on 11/22 following a fall from approximately 6 feet off a ladder. He landed on his left side and hit his head. He is amnesic to the events. Per his there are concerns that he may have dementia, but does not see a primary care physician. Trauma scans reeleaved: small amount of layering blood products in the occipital horn of the left lateral ventricle, small cortical hemorrhage versus focal subarachnoid hemorrhage anterior left frontal lobe, left pelvic fractures with associated left retroperitoneal hematoma, intramuscular hematomas involving the left gluteus and iliopsoas muscles and nondisplaced left anterior sixth rib fracture. Pt is s/p ORIF of the left acetabulum. Family/Caregiver Present: Yes (AUTOMATIC LEHR OPERATOR) Patient/Caregiver Goals: None stated Patient Comments: Patient pleasant and agreeable to dysphagia sessio this date. Precautions Weight Bearing Status: TTWB LLE Other Precautions: Fall risk, cognition, aspiration OBJECTIVE Precautions Weight Bearing Status: TTWB LLE Other Precautions: Fall risk, cognition, aspiration OT Dysphagia Treatment: Educated patient and/or caregiver on diet recommendations Educated patient and/or caregiver on compensatory techniques Educated patient and/or caregiver on aspiration precautions Observed a meal and provided feedback/instruction to patient Does the patient have a tracheostomy? No. Team Communication: Patient's nurse was contacted and patient's status was discussed (AUTOMATIC LEHR OPERATOR engaged in therapy session) Patient was left with AUTOMATIC LEHR OPERATOR present at end of session with call light in reach, all needs met and questions answered. Additional Staff Present During Session: AUTOMATIC LEHR OPERATOR Assessment Time Dysphagia Assessment Completed: Clinical Impression/Recommendations: Patient sleeping with AUTOMATIC LEHR OPERATOR present upon OT arrival but patient arousable and pleasant. Patient continues to present with confusion and delirium but was pleasant and appropriate throughout today's session. Assessed safety with oral intake of minced and moist albanian toast, turkey sausage, mixed berries, and thin liquids resulting in no overt signs of aspiration/penetration. Patient noted to eat quickly and take additional bites of food before swallowing initial bite. Patient benefited from cues toswallow before taking subsequent bites and alternate solids and liquids to assist in clearing oral residue. RN reported patient took medications (whole with water) without signs of aspiration. OT Dysp hagia will follow up tomorrow to assess readiness to upgrade diet textures. Patient is below their functional baseline with swallowing function and skilled dysphagia services are medically necessary for this patient to safely progress oral intake. CURRENT DIET: Diet Recommendations - Solids: IDDSI Level 5 Minced & Moist Diet Recommendations - Liquids: IDDSI Level 0 Thin Recommended Form of Meds: With puree, Whole, With liquid Transitional foods allowed: yes Recommendations: Dysphagia treatment, Other (Comment) Recommended Aspiration Precautions: Recommended Aspiration Precautions: Watch closely for signs of aspiration, Eat small bites, take small sips, eat slowly, Sit upright with all oral intake and when completing oral cares Recommended Compensation Techniques/Adaptive Equipment: Recommended Compensation Techniques/Adaptive Equipment: Requires supervision/assistance, Compensations for cognitive impairment, Alternate solid food with small amounts of liquids Compensations for Cognitive Impairment: Ensure a calm, distraction free environment, Assistance with feeding should be provided in an unhurried manner, Sit down near the patient when assisting with feeding whenever possible Positioning Recommendations: Upright as possible for all oral intake Rehab potential: Mr. Grayson has good potential to achieve established occupational therapy goals within the time frame outlined below. Functional Goals and Timeframes: Goal #1: Dysphagia: Patient will tolerate safe and adequate nutrition/hydration on least restrictive diet possible. Progressing Goal #2: Dysphagia: Patient and/or caregiver will demonstrate compensatory techniques and aspiration precautions recommended above with all oral intake. Progressing Plan Treatment Interventions: Swallow dysfunction treatment OT Dysphagia Duration: Until goals are met or hospital duration OT Dysphagia Amount: 1 visit per day OT Dysphagia Frequency: 4 times per week Inpatient OT Dysphagia Received On Date: 12/01/23 OT - Next Inpatient Dysphagia Appointment: 12/02/23 Plan: Continue with current plan Plan Comments: SB6 trial tray Re-evaluate: As clinically indicated Treatment interventions may include: Plan for Next Session: Assess readiness for diet upgrade Time Spent with Patient Therapeutic Interventions Swallow Dysfunction Treatment (min): 14 min Time Tracking Total Treatment Time (min): 14 min For any questions feel free to page OT dysphagia Tuesday through Tuesday 7:00am to 4:00pm: Our service pager at [facility]: [phone] Our service pager at [facility]: #[phone] * Mickey Benton M.D. - 12/01/2023 6:26 AM CDT Orthopedic Service: OTS-1 Hospital Admission Day: 11/23/2023 Length of Stay: 8 Procedures: Surgery Information This Encounter Past Procedures (12/01/2022 to Today) Date Procedures Providers Loc / Dept 11/25/2023 OPEN REDUCTION INTERNAL FIXATION ACETABULUM. Naveed Higuera M.D.Mickey Benton M.D.Baltazar Foreman M.D.Sheire Lozano M.D. RST ROMB OR SUBJECTIVE Mr. Grayson was seen and examined in his floor care room this morning. He was fairly interactive with me and participated on exam with an intact left lower extremity examination. His drain continuesto have output with 190 cc out in the last 24 hours so we will keep this in place for now. His incisional VAC is holding suction with a few cc of serosanguineous output in the canister, no significant change in this. OBJECTIVE VITALS Temperature: [36.3 ??C-36.5 ??C] 36.5 ??C Resp Rate: [16] 16 Blood Pressure: (114-132)/(52-78) 114/57 SpO2: [92 %-95 %] 94 % Pulse Rate: [71-75] 75 I/O last 3 completed shifts: In: 1260 [P.O.:760] Out: 3555 [Urine:3365; Drains:190] PHYSICAL EXAM General: follows commands inconsistently, confused Cardiac: Hemodynamically stable. Lungs: Non-labored respirations on room air, satting well. Left Lower Extremity: Surgical incision CDI. Left ilioinguinal incisional vac. Calf soft and non-tender. Neurovascularly intact with palpable pulses, brisk cap refill. Sensation intact grossly to light touch throughout dermatomes. Fires tib ant, gastroc, ehl, fhl spontaneously, though not to command Drain: davol drain lateral to suction Output by Drain (mL) 11/29/23 07 - 11/29/23 1900 11/29/23 190 - 11/30/23 0711/30/23 07 - 11/30/23 1900 11/30/23 190 - 12/01/23 0700 12/01/23 07 - 12/01/23 1045 Closed/Suction Drain 1 Left;Lateral Hip Accordion 10 Fr. 30 55 150 40 LABS Recent Results (from the past 24 hour(s)) CBC without Differential Collection Time: 12/01/23 7:09 AM Result Value Hemoglobin 10.7 (L) Hematocrit 33.0 (L) Erythrocytes 3.60 (L) MCV 91.7 RBC Distrib Width 14.4 Platelet Count 179 Leukocytes 5.2 Basic Metabolic Panel Collection Time: 12/01/23 7:09 AM Result Value Potassium, S 4.4 Sodium, S 136 Chloride, S 103 Bicarbonate, S 26 Anion Gap 7 BUN (Blood Urea Nitrogen), S 23 Creatinine 0.97 Estimated GFR (eGFR) 78 Calcium, Total, S 7.8 (L) Glucose, S 115 IMAGING DX Chest Portable 1 View Result Date: 11/25/2023 Impression: No change since 11/24/2023. Low lung volumes. Bibasilar atelectasis. Skeletal degenerative changes. Left rib fracture not well seen radiographically. Remainder negative. CT Head without IV Contrast Result Date: 11/24/2023 Impression: 1. 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 2. Punctate hyperdensity noted in the left frontal region on the prior study is again noted and possibly reflects a punctate cortical hemorrhage. 3. Mild asymmetric prominence of the extra-axial space over the left frontal convexity may reflect a small subdural effusion. ASSESSMENT / PLAN #1 s/p ORIF left associated both column acetabular fracture 11/[address] Higuera via limited ilioinguinal with ASIS osteotomy plus Stoppa approach --Activity: TTWB LLE. PT/OT to follow. --Antibiotics: Perioperative cefazolin x2 doses completed. --Blood: Hemodynamics have been relatively stable. Last hemoglobin 10.7, uptrending --Brace: none --Cultures/Path: None. --Diet: Per primary service. --Drains: 1 davol drain with 140 cc output in last 24 hours, continue to monitor. Remove davol drain when output less then 30 cc for two consecutive shifts; iVAC to incisions, few cc of serosanguineous output. --Dressing: Ivac in place. --VTE Prophylaxis: Mechanical prophylaxis with SCDs, early mobilization, and recommend subcutaneousheparin products per TCGS --Pain: per primary --Urinary: Per primary --Imaging: Postop imaging completed --Code: Full --Dispo: Anticipate discharge to SNF, per primary From 6am-6pm Tuesday-Tuesday, please contact OTS-1 with any questions regarding this patient. If overnight (6 PM to 6 AM) or any time on weekends, please contact the Orthopedic Surgery house resident marine resource economist at [phone] * Ishan Collins R.R.T., Ana. - 11/30/2023 7:12 PM CDT 11/30/23 1600 Chest Physiotherapy CPT Delivery Source Other (Comment) CPT Duration 30 minutes CPT Chest Site Full range CPT Treatment Tolerance Tolerated well $Chest Physiotherapy Initial BPAP/CPAP Therapy BPAP/CPAP Interface Under the nose cushion BPAP/CPAP Interface Size C Skin barrier Not indicated per interface $BPAP/CPAP Yes Ventilator Parameters BPAP/CPAP Mode CPAP NPPV EPAP (CPAP) Setting 10 cm H2O Humidification Heated humidifier Per service, Pt was to wear CPAP for hyperinflation BID for 24hrs. No respiratory concerns at this time. Electronically signed by: Ishan Collins R.R.T., [place] 11/30/23 7:13 PM CDT * Hayley Durham L.GTarikSVianey, M.S.W. - 11/30/2023 5:42 PM CDT SUBJECTIVE Social Work spoke to patient's on the telephone. Social Work spoke to Flavia in [facility] at [facility] in [place]. Social Work spoke to [place] [employer] regarding patient's lacking insurance information. Social Work [facility] benefits. Social Work communicates with Service regarding contributing factors of current cognitive challenges. Service indicates baseline cognition exacerbated by brain injury and hospital delirium as likely contributing factors. 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 The [facility] has to approve this intermediate care. Patient is on Safety Plan. ASSESSMENT / PLAN ASSESSMENT Patient's states patient is not near cognitive baseline. She wonders if it is brain injury. Social Work explains hospital delirium as a possible contributing factor. Patient's expresses hopefulness that delirium could be involved. PLAN Patient's requests patient discharge to short term rehab. Social Work will continue to assist with discharge needs. Social Work will continue to follow to provide support. Aimee Ahuja, M.S.W. 11/30/23 * Harmony Kee Ed.D., M.S., O.T., BCPR - 11/30/2023 2:38 PM CDT Occupational Therapy Acute Hospital Inpatient Progress Note SUBJECTIVE Patient's Name: Carlos Alberto Grayson Reason for Referral: OT eval and treat - brain consult Medical Diagnosis: 1. Fracture Ilium Closed Initial Left (HCC) 2. History Of Falling 3. Retroperitoneal Hematoma 4. Fracture Acetabulum Closed Initial Left (HCC) 5. Contusion Buttock Initial 6. Anemia 7. Subarachnoid Hemorrhage With Loss Of Conscious Initial (HCC) 8. Other Shock (Hemorrhagic Shock) (HCC) 9. Fracture Pelvis Multiple Closed With Stable Disruption Pelvis Ring Initial (HCC) 10. Dysphagia [R13.10] 11. Decline Cognitive [R41.81] 12. 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 Subarachnoid Hematoma Trauma Without Loss Of Consciousness Subsequent [S06.6X0D] 14. Lack Of Coordination [R27.9] 15. Other Abnormalities Of Gait And Mobility [R26.89] History of Present Illness: Pt is an 83 year old male with no known medical history who presented to the hospital on 11/22 following a fall from approximately 6 feet off a ladder. He landed on his leftside and hit his head. He is amnesic to the events. Per his there are concerns that he may have dementia, but does not see a primary care physician. Trauma scans reeleaved: small amount of layering blood products in the occipital horn of the left lateral ventricle, small cortical hemorrhage versus focal subarachnoid hemorrhage anterior left frontal lobe, left pelvic fractures with associatedleft retroperitoneal hematoma, intramuscular hematomas involving the left gluteus and iliopsoas musc les and nondisplaced left anterior sixth rib fracture. Pt is s/p ORIF of the left acetabulum. Onset Date: 11/23/23 Patient/Caregiver Goals: Pt goal to return home. Precautions Weight Bearing Status: TTWB LLE Other Precautions: Fall risk, cognition Fall Risk (65 and older) Fall in the last 12 months: Yes Did you have an injury with the fall?: Yes Are you fearful of falling?: Yes OBJECTIVE Pain: no pain reported, patient appeared comfortable Vitals: Cognition Cognitive assessment method: Therapist observations Arousal/Alertness: Appropriate responses to stimuli Attention: Impairments noted Sustained: Moderate Attention Comments: distracted during feeding task, picking at blanket on lap Orientation: Disoriented to place, Disoriented to time, Disoriented to situation One Step Commands: Follows one step commands with increased time, Follows one step commands with repetition Feeding Feeding Location: Supported sitting in bed Feeding Delivery: Therapist Assisted, Facilitated Feeding Level of Assistance: Supervision/Set-up Feeding Comments: Able to feed self with setup and continuous verbal cues for pacing and bite size Grooming Grooming Location: Supported sitting in bed Grooming Delivery: Facilitated, Therapist assisted Grooming Level of Assistance: Minimal assistance Grooming Comments: Direct cues for initiating grooming tasks. Set up of items and presented items to patient to identify. Patient combed hair with cue to initiate. He brushed teeth with cue to apply toothpaste to toothbush. Washed face with setup Patient/Family Education: NA At the end of today's therapy session patient was left in bed 1:1 staff present with an appropriatecall light within reach. Patient's needs and questions addressed during today's session. Assessment Patient continues to participate in OT interventions. Oriented to person only. Engaged in reality orientation with limited recall despite environmental cues. Patient engaged in self feeding and grooming with minimal assist and direct verbal cueing for initiating, organizing and sustaining attentionto tasks. He is below his functional baseline and will benefit from skilled occupational therapy toprogress safety and independence in self cares and functional mobility. Barriers to Discharge Home: Current functional status, Fall risk, Safety concerns Comorbid Conditions: None Personal Factors: Age, Balance impairment, History of falls, Needs assistive device Discharge Therapy Needs - OT: Ongoing skilled occupational therapy Level of Care Needed - OT: Assistance with toileting, Assistance with toilet/shower transfers, Assistance with medication set up/administration, Assistance with showering/bathing, Assistance with eating/feeding, Assistance with dressing, Assistance with meal preparation, Assistance with financial ma nagement, Assistance with transportation, Assistance with housekeeping, Assistance with shopping, Cognitive assistance needed, Physical assistance needed Skilled therapy can include occupational therapy provided by home health, outpatient clinic, or a post-acute facility. The location of these services is determined by the patient's care team in partnership with patient/family. Recommended Adaptive Equipment - OT: Other (Comment) (Ongoing assessment) Functional Goals and Timeframes: OT Goal #1: STG: By goal review date, pt will complete transfer to/from the commode with least restrictive transfer device and moderate physical assistance. OT Goal #2: STG: By goal review date, pt will complete one simple grooming task from seated base with setup assistance. OT Goal #3: LTG: By discharge, pt and caregivers will demonstrate understanding of all adaptive equipment recommendations for home going in order to maximize safety and independence with ADL/IADL tasks. Progress: Progressing toward goals Plan Patient agrees with the plan of care and goals. Treatment Plan: OT Frequency: 5 times per week OT Amount: 1 visit per day OT Inpatient Duration : Until goals are met or hospital discharge Plan: Plan of care initiated OT Plan Comments: Next Session: orientation, simple ADL, seated balance Treatment interventions may include: Treatment Interventions: Therapeutic exercise, Therapeutic functional activity, Neuromuscular re-education, Self-care/home management, Cognitive skills training Time Spent with Patient Therapeutic Interventions Home Management Training (min): 28 min Time Tracking Total Timed Units (min): 28 min Total Treatment Time (min): 44 min Harmony Kee Ed.D., M.S., O.T., BCPR * Mansi Farrell O.T., [facility] - 11/30/2023 8:45 AM CDT Occupational Therapy Dysphagia Treatment SUBJECTIVE Patient's Name: Carlos Alberto Grayson Referring/Attending Provider: Landen Quinonez M.D. Medical Diagnosis: Anemia [D64.9] Contusion Buttock Initial [S30.0XXA] Subarachnoid Hemorrhage With Loss Of Conscious Initial ([facility]) [S06.6X9A] Fracture Acetabulum Closed Initial Left (HCC) [S32.402A] Fracture Ilium Closed Initial Left (HCC) [S32.302A] History Of Falling [Z91.81] Other Shock (Hemorrhagic Shock) ([facility]) [R57.8] Retroperitoneal Hematoma [K68.3] Reason for Referral: Reason for Referral: OT dysphagia Onset Date: 11/23/23 Payor: / History of Present Illness: History of Present Illness: Pt is an 83 year old male with no known medical history who presented to the hospital on 11/22 following a fall from approximately 6 feet off a ladder. He landed on his left side and hit his head. He is amnesic to the events. Per his there are concerns that he may have dementia, but does not see a primary care physician. Trauma scans reeleaved: small amount of layering blood products in the occipital horn of the left lateral ventricle, small cortical hemorrhage versus focal subarachnoid hemorrhage anterior left frontal lobe, left pelvic fractures with associated left retroperitoneal hematoma, intramuscular hematomas involving the left gluteus and iliopsoas muscles and nondisplaced left anterior sixth rib fracture. Pt is s/p ORIF of the left acetabulum. Patient/Caregiver Goals: Pt goal to return home. Fall Risk (65 and older) Fall in the last 12 months: Yes Did you have an injury with the fall?: Yes Are you fearful of falling?: Yes Precautions Weight Bearing Status: TTWB LLE Other Precautions: Fall risk, cognition OBJECTIVE Precautions Weight Bearing Status: TTWB LLE Other Precautions: Fall risk, cognition Does the patient have a tracheostomy? No. Team Communication: Patient's nurse was contacted and patient's status was discussed, Other (comment) (AUTOMATIC LEHR OPERATOR engaged in therapy session) Patient was left in bedside chair at end of session with call light in reach, all needs met and questions answered. Assessment Clinical Impression/Recommendations: Patient was eating breakfast when OT arrived. AUTOMATIC LEHR OPERATOR was present in the room and she helped with setting patient up for eating. Patient was able to feed himself without any issues. He does take big bites when eating and he was educated on taking small bites. There was no carry over for smaller bites and patient continued to take bigger bites unless constantly cued to take smaller bites. He was given trials of thin liquids and there were no signs of aspiration with water. Based on today's assessment patient's diet can be upgraded to Minced and Moist (MM5) and Thin liquids (TN0). Patient is below their functional baseline with swallowing function and skilled dysphagia services are medically necessary for this patient to safely progress oral intake. CURRENT DIET: Diet Recommendations - Solids: IDDSI Level 5 Minced & Moist Diet Recommendations - Liquids: IDDSI Level 0 Thin Recommended Form of Meds: Crushed (per physician/pharmacy approval), With puree Transitional foods allowed: yes Recommendations: Dysphagia treatment, Other (Comment) Recommended Aspiration Precautions: Recommended Aspiration Precautions: Watch closely for signs of aspiration, Eat small bites, take small sips, eat slowly, Sit upright with all oral intake and when completing oral cares Recommended Compensation Techniques/Adaptive Equipment: Recommended Compensation Techniques/Adaptive Equipment: Requires supervision/assistance, Compensations for cognitive impairment Compensations for Cognitive Impairment: Ensure a calm, distraction free environment, Assistance with feeding should be provided in an unhurried manner, Sit down near the patient when assisting with feeding whenever possible Positioning Recommendations: Upright as possible for all oral intake Recommendations for safe oral cares are as follows: -assist needed with regular toothbrush/toothpaste Rehab potential: Mr. Grayson has good potential to achieve established occupational therapy goals within the time frame outlined below. Functional Goals and Timeframes: Goal #1: Dysphagia: Patient will tolerate safe and adequate nutrition/hydration on least restrictive diet possible. Goal #2: Dysphagia: Patient and/or caregiver will demonstrate compensatory techniques and aspiration precautions recommended above with all oral intake. Plan Patient agrees with the plan of care and goals. Treatment Interventions: Swallow dysfunction treatment OT Dysphagia Duration: Until goals are met or hospital duration OT Dysphagia Frequency: 4 times per week Inpatient OT Dysphagia Received On Date: 11/30/23 OT - Next Inpatient Dysphagia Appointment: 12/01/23 Plan: Plan of care initiated Treatment interventions may include: Plan for Next Session: Observe a meal, Check diet orders for accuracy, Assess readiness for diet upgrade Time Spent with Patient Therapeutic Interventions Swallow Dysfunction Treatment (min): 16 min Time Tracking Total Treatment Time (min): 16 min For any questions feel free to page OT dysphagia Tuesday through Tuesday 7:00am to 4:00pm: Our service pager at [facility]: #[phone] Our service pager at [employer]: #[phone] * Naveed Dan P.A.-C. - 11/30/2023 8:27 AM CDT SUBJECTIVE Mr. Grayson was seen and examined by the Trauma team in his room this morning. He reports no acutechanges; patient is seen in his bed after completion of xray imaging with RN at bedside. Patient isacutely delirious, and unable to follow commands for pulmonary auscultation. Denies any pain and orpertinent ROS. Difficulty/unable to continue to participate with appropriate pulmonary toileting, low/stable PO intake requiring supplemental mIVF, passing gas, multiple BM/24hrs. Patient is afebrileand hemodynamically stable at this time OBJECTIVE VITAL SIGNS Height: 180.3 cm, Weight: 93.4 kg, BMI (Calculated): 28.7 kg/m??, Blood Pressure: 154/66, Pulse Rate: 80, Resp Rate: 16, Temperature: 36.6 ??C, SpO2: 96 % I/O last 3 completed shifts: In: 2535 [P.O.:2034] Out: 2985 [Urine:2900; Drains:85] Vitals and nursing note reviewed. Constitutional General: He is not in acute distress. Appearance: He is not ill-appearing or toxic-appearing. Cardiovascular Rate and Rhythm: Normal rate. Comments: JVD noted Pulmonary Effort: Pulmonary effort is normal. No respiratory distress. Breath sounds: No wheezing. Abdominal General: There is distension. Tenderness: There is abdominal tenderness. Skin General: Skin is warm. Capillary Refill: Capillary refill takes less than 2 seconds. Neurological Mental Status: He is alert. He is disoriented. DIAGNOSTICS I have reviewed labs, ECG, xray, CT, and diagnostics. DX Abdomen 1 View, DX Chest 1 View Result Date: 11/30/2023 Impression: Since yesterday, increased central pulmonary vascular congestion. Otherwise no significant change accounting for changes in patient positioning. Trace bilateral pleural effusions. No pneumothorax. Stable cardiac silhouette at the upper limit of normal. Aortic calcifications. Nonobstructive bowel gas pattern. Plate and screw fixation of the left hemipelvis with screw fixation of the left iliac crest. Left pelvic soft tissue surgical drains. CT Head without IV Contrast Result Date: 11/30/2023 Impression: Decreased small amount of layering blood products in the left lateral ventricle. No newhemorrhage. Lab results last 24 hours: Recent Results (from the past 24 hour(s)) CBC without Differential Collection Time: 11/29/23 9:20 PM Result Value Hemoglobin 10.4 (L) Hematocrit 32.8 (L) Erythrocytes 3.53 (L) MCV 92.9 RBC Distrib Width 14.6 (H) Platelet Count 160 Leukocytes 5.7 Basic Metabolic Panel Collection Time: 11/29/23 9:20 PM Result Value Potassium, S 4.7 Sodium, S 138 Chloride, S 104 Bicarbonate, S 25 Anion Gap 9 BUN (Blood Urea Nitrogen), S 20 Creatinine 0.91 Estimated GFR (eGFR) 85 Calcium, Total, S 7.6 (L) Glucose, S 159 (H) ASSESSMENT / PLAN Today's Plan: - repeat head CT = stable/improved x 24hrs. Initiated chemoprophylactic dose of enoxaparin 30mg BID2/2 acute L-soleal vein DVT - am cxr: increased pulm congestion, wet lungs, JVD, weight 93.4kg from 86.3ke on 11/22. Lasix 20mg iv q once 2/2 fluid overload/pulmonary congestion. F/u BMP stable - abdomen: increased distention, now TTP. Previously, pt has been minimally/slightly distended and non-TTP on exam. Today, acutely TTP. Continue to monitor closely - soft restraints removed 11/28. Today, patient attempted to assault nursing staff. Reapplied soft restraints - f/u geriatric medicine recommendations New Consults Geriatric Medicine Neurosurgery C Neurology OTS 1 PT/OT Diet: Adult Diet Dysphagia; Mildly Thick (MT2); Minced and Moist (MM5) Activity: Up with assistance, LLE TTWB VTE Prophylaxis: SCDs, holding therapeutic anticoagulation until f/u head CT 11/29 vs IVC filter GI Prophylaxis: not indicated Bowel Regimen: MiraLax, Dulcolax, Senokot Pain: Tylenol, triple cream, lidocaine patch, Dilaudid Antibiotics: None indicated Disposition: TBD #1 History Of Falling - TTS: 11/24 - SAS: 11/23 - PMR TBI, PT/OT consulted #2 Subarachnoid Hematoma Trauma Without Loss Of Consciousness Subsequent #3 Contusion Scalp Initial - Neurosurgery Chief C consulted and following - 11/[address]: interval increase in left lateral ventricle hemorrhage - 11/[address] stable - 11/[address] stable. 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 PMR TBI continue to follow patient #5 Thrombosis Deep Vein Lower Extremity Left (HCC) Acute L-Soleal vein DVT - holding chemical DVT prophylaxis 2/2 serial unstable head CTs & neurosurgery recs requiring stable head CT - 11/[address]: stable/improved blood products - repeat head CT AM 11/29 - continue to hold therapeutic anticoagulation at this time; continue SCDs. Pending next head CT todetermine AC management - repeat BLLE Duplex US in one week (12/05) #6 Fracture Rib One Open Initial Left #7 Atelectasis #8 Effusion Pleural Nondisplaced Left anterior 6th rib fx - traumatic rib fracture protocol - aggressive pulmonary hygiene - multimodal pain regimen #9 Contusion Other Intra Abdominal Organs Initial #10 Fracture Acetabulum Other Closed Initial Left (HCC) #11 Fracture Pelvis Multiple Closed With Stable Disruption Pelvis Ring Initial (HCC) #12 Fracture Ilium Closed Initial Left (HCC) - OTS-1 consulted and following - 11/24 OR L-acetabular fx fixation. Closed over 2 drains w/ wound vac in place. - 11/27 PM: patient pulled midline drain out 2/2 delirium/agitation - LLE: TTWB - continue working w/ PT and OT - f/u per OTS #13 Anemia Posthemorrhagic Acute (Blood Loss Anemia) #14 Postprocedural Hemorrhagic Shock Initial - 11/24 status post OR for LLE fixation, patient received: 4u pRBC, 2u FFP, 4u plts 2/2 hemorrhagic shock - TEG has since been normalized. 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 * Kelly Johnson P.A.-C. - 11/30/2023 7:46 AM CDT Geriatrics Consult - Progress Note SUBJECTIVE Mr. Grayson was seen on morning rounds. He was sleeping in bed. He had just received Olanzapine after becoming agitated and combative with nursing staff. He was reaching out for things in his sleep and fixing his blanket. He was briefly arousable, but quickly fell back asleep and unable to follow commands. I have reviewed the current medication list. OBJECTIVE VITAL SIGNS Temperature: [36.2 ??C-36.7 ??C] 36.6 ??C Resp Rate: [16-22] 16 Blood Pressure: (113-140)/(52-96) 129/58 SpO2: [92 %-100 %] 99 % Flow Rate (L/min): [1 L/min-2 L/min] 2 L/min Pulse Rate: [69-103] 69 PHYSICAL EXAM General: non-toxic in no acute distress, appears stated age Mental: arousable, minimally interactive, difficult to assess given recent medication administration Skin: warm, dry, well-perfused Eyes: anicteric sclerae, pupils equal, round ENT: moist mucous membranes Lungs: Even non-labored respirations on room air Neuro: No obvious focal sensorimotor deficit DIAGNOSTICS I have independently reviewed labs. ASSESSMENT / PLAN Mr. Carlos Alberto Grayson is a 83 y.o. 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 His hospital course has been complicated by acute anemia, hypotension (resolved), hypoxic respiratory failure (resolved), acute delirium. Medical comorbidities are significant for cataracts, macular degeneration, hard of hearing,BPH. 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 Grayson has known chronic cognitive impairment with significant short-term memory issues and inability to manage his own finances. He was otherwise independent in most IADLs and ADLs. He was a strong familial history of dementia and likely has an etiology of Alzheimer's. Unfortunately, he continues to exhibit delirium and intermittent agitation. He is still requiring and IA. Attempting to optimize his sleep/wake cycle. We will continue the current sleep medication plan and taper as able. Regarding his urinary retention, he was recently started on tamsulosin, but is still requiring q4h I&O cathing. He has a history of BPH and if this urinary retention persists, could consider starting finasteride. However, would like to trial q4h voiding schedule with PVRs and encouraging patient to get to side of bed or out of bed to use the urinal as this may assist with voiding. RECOMMENDATIONS: General delirium prevention/management strategies: Minimize RAILWAY SWITCHMAN-acting medications. Increase mobility to match ability. Frequent reorientation. Provide moderate level of social and cognitive stimulation. Treat dehydration and constipation. Nonpharmacologic sleep promotion strategies. Continue ramelteon, suvorexant until circadian rhythm improves Taper Plan: Discontinue suvorexant then taper ramelteon to 5 mg then switch to melatonin Continue olanzapine 2.5 mg PRN for agitated behaviors that are not responsive to nonpharmacologic interventions Continue tamsulosin (new) and I&O cath PRN for urinary retention. Encourage him to sit at edge of bed or stand and walk to bathroom/commode. Order q4h voiding schedule with recommendation to have patient sit at side of bed or get to commode/bathroom to void. The above plan of care was discussed with Dr. Guru Bill [phone]), HIM programmer analyst consultant. I personally spent a total of 35 minutes providing and coordinating care today. Thank you for the opportunity to care for this patient. We will continue to follow with you. Pleasepage the Geriatrics Consult Service at [phone] with any questions or concerns. * Mickey Benton M.D. - 11/30/2023 6:35 AM CDT Orthopedic Service: OTS-1 Hospital Admission Day: 11/23/2023 Length of Stay: 7 Procedures: Surgery Information This Encounter Past Procedures (11/30/2022 to Today) Date Procedures Providers Loc / Dept 11/25/2023 OPEN REDUCTION INTERNAL FIXATION ACETABULUM. Naveed Higuera M.D.Markos, James R, M.D.Labott, Joshua R, M.D.Hidden, Krystin A, M.D. [facility]ST [facility] OR Unscheduled Procedures Date Procedures Providers Loc / Dept Not Scheduled OPEN REDUCTION INTERNAL FIXATION ACETABULUM. Rodrigo Leiva M.D. [facility] OR SUBJECTIVE Mr. Grayson was seen and examined in his floor care room this morning. He was interactive with me and participated on exam with an intact left lower extremity examination. His drain continues to have output with 85 cc out in the last 24 hours so we will keep this in place for now. His incisional VAC is holding suction with a few cc of serosanguineous output in the canister. OBJECTIVE VITALS Temperature: [36.2 ??C-36.7 ??C] 36.6 ??C Resp Rate: [16-20] 16 Blood Pressure: (113-154)/(52-96) 154/66 SpO2: [92 %-100 %] 96 % Flow Rate (L/min): [1 L/min-2 L/min] 2 L/min Pulse Rate: [69-103] 80 I/O last 3 completed shifts: In: 2535 [P.O.:2034] Out: 2985 [Urine:2900; Drains:85] PHYSICAL EXAM General: follows commands inconsistently, confused Cardiac: Hemodynamically stable. Lungs: Non-labored respirations on room air, satting well. Left Lower Extremity: Surgical incision CDI. Left ilioinguinal incisional vac. Calf soft and non-tender. Neurovascularly intact with palpable pulses, brisk cap refill. Sensation intact grossly to light touch throughout dermatomes. Fires tib ant, gastroc, ehl, fhl spontaneously, though not to command Drain: davol drain lateral to suction Output by Drain (mL) 11/28/23 07 - 11/28/23 1900 11/28/23 190 - 11/29/23 0700 11/29/23 0701 - 11/29/23 1900 11/29/23 190 - 11/30/23 0700 11/30/23 0701 - 11/30/23 0931 Closed/Suction Drain 1 Left;Lateral Hip Accordion 10 Fr. 0 80 30 55 LABS Recent Results (from the past 24 hour(s)) CBC without Differential Collection Time: 11/29/23 9:20 PM Result Value Hemoglobin 10.4 (L) Hematocrit 32.8 (L) Erythrocytes 3.53 (L) MCV 92.9 RBC Distrib Width 14.6 (H) Platelet Count 160 Leukocytes 5.7 Basic Metabolic Panel Collection Time: 11/29/23 9:20 PM Result Value Potassium, S 4.7 Sodium, S 138 Chloride, S 104 Bicarbonate, S 25 Anion Gap 9 BUN (Blood Urea Nitrogen), S 20 Creatinine 0.91 Estimated GFR (eGFR) 85 Calcium, Total, S 7.6 (L) Glucose, S 159 (H) IMAGING DX Chest Portable 1 View Result Date: 11/25/2023 Impression: No change since 11/24/2023. Low lung volumes. Bibasilar atelectasis. Skeletal degenerative changes. Left rib fracture not well seen radiographically. Remainder negative. CT Head without IV Contrast Result Date: 11/24/2023 Impression: 1. 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 2. Punctate hyperdensity noted in the left frontal region on the prior study is again noted and possibly reflects a punctate cortical hemorrhage. 3. Mild asymmetric prominence of the extra-axial space over the left frontal convexity may reflect a small subdural effusion. ASSESSMENT / PLAN #1 s/p ORIF left associated both column acetabular fracture 11/[address] Higuera via limited ilioinguinal with ASIS osteotomy plus Stoppa approach --Activity: TTWB LLE. PT/OT to follow. --Antibiotics: Perioperative cefazolin x2 doses completed. --Blood: Hemodynamics have been relatively stable. Last hemoglobin 10.4 --Brace: none --Cultures/Path: None. --Diet: Per primary service. --Drains: 1 davol drain with 85 cc output in last 24 hours, continue to monitor; iVAC to incisions,few cc of serosanguineous output. --Dressing: Ivac in place. --VTE Prophylaxis: Mechanical prophylaxis with SCDs, early mobilization, and recommend subcutaneousheparin products --Pain: per primary --Urinary: Per primary --Imaging: Postop imaging completed --Code: Full --Dispo: Anticipate discharge to SNF, per primary From 6am-6pm Tuesday-Tuesday, please contact OTS-1 with any questions regarding this patient. If overnight (6 PM to 6 AM) or any time on weekends, please contact the Orthopedic Surgery house resident marine resource economist at [phone] * Tamia Pedraza, Ph.D., P.T., D.P.T. - 11/29/2023 4:35 PM CDT Physical Therapy Acute Hospital Inpatient Treatment SUBJECTIVE Patient's Name: Carlos Alberto Grayson Reason for Referral: PT eval and treat - brain consult Medical Diagnosis: 1. Fracture Ilium Closed Initial Left (HCC) 2. History Of Falling 3. Retroperitoneal Hematoma 4. Fracture Acetabulum Closed Initial Left (HCC) 5. Contusion Buttock Initial 6. Anemia 7. Subarachnoid Hemorrhage With Loss Of Conscious Initial (HCC) 8. Other Shock (Hemorrhagic Shock) (HCC) 9. Fracture Pelvis Multiple Closed With Stable Disruption Pelvis Ring Initial (HCC) 10. Dysphagia [R13.10] 11. Decline Cognitive [R41.81] 12. 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 Subarachnoid Hematoma Trauma Without Loss Of Consciousness Subsequent [S06.6X0D] 14. Lack Of Coordination [R27.9] 15. Other Abnormalities Of Gait And Mobility [R26.89] History of Present Illness: Pt is an 83 year old male with no known medical history who presented to the hospital on 11/22 following a fall from approximately 6 feet off a ladder. He landed on his leftside and hit his head. He is amnesic to the events. Per his there are concerns that he may have dementia, but does not see a primary care physician. Trauma scans reeleaved: small amount of layering blood products in the occipital horn of the left lateral ventricle, small cortical hemorrhage versus focal subarachnoid hemorrhage anterior left frontal lobe, left pelvic fractures with associatedleft retroperitoneal hematoma, intramuscular hematomas involving the left gluteus and iliopsoas musc les and nondisplaced left anterior sixth rib fracture. Pt is s/p ORIF of the left acetabulum. Onset Date: 11/23/23 Patient/Caregiver Goals: Pt goal to return home. Patient Comments: Patient agreeable to participate in bed-based exercises Precautions Weight Bearing Status: TTWB LLE Other Precautions: Fall risk, cognition Fall Risk (65 and older) Fall in the last 12 months: Yes Did you have an injury with the fall?: Yes Are you fearful of falling?: Yes OBJECTIVE Pain: Patient denies physical pain at start of session while supine with slight HOB elevated Vitals: During session SpO2 mid 90s to 100; Pulse 70s-80s bpm, did not observe significant change with sitting EOB Bed Mobility - Supine to Sit # of Assistants: 2 Level of Assistance: Maximal assistance Device: Bed rail, Head of bed elevated, Other (draw sheet) Cuing: Verbal, Tactile Comments: Elevated HOB to close to sitting, assisted patient with pivoting on buttocks to sitting edge of bed. Encouraged patient to engage with B UE to help push and move R LE as able. PT and AUTOMATIC LEHR OPERATOR helped support B LE and trunk during transfer Bed Mobility - Sit to Supine # of Assistants: 2 Level of Assistance: Maximal assistance Device: Bed rail, Head of bed elevated, Other (draw sheet) Cuing: Verbal, Tactile Comments: Similar support as described above. Patient appeared a little more engaged with this transfer compared to coming to sit. Supine Exercise - Side Addressed: Right (ankle pumps also on L; attempted thigh muscle isometrics on L, discontinued due to pain) Supine Exercise: Ankle pumps, Hip ABduction/ADduction, Heel slides, Short arc quads Exercise Mode: Active motion against gravity, Manual resistance, Isometric (manual resistance for isometic hip ab/adduction in R LE hooklying position only) Sets/Repetitions: 20 ankle pumps bilaterally, 10 reps other exercises on R Supine Exercise Comments: Started exercises with AAROM to introduce movement to patient and help him understand. Engaged patient by providing target to kick for SAQ, verbal cues to control descent. Ankle pumps performed with cue for patient to count to a particular number, able to count but unable to hit correct target number. Therapeutic Functional Activity Position: Sitting Physical Assistance Required: Contact guard assistance Cuing Required: Verbal, Tactile, Visual Cuing Comments: Facilitation at trunk for safety and to help maintain upright. Therapeutic Functional Activity Comments: Sitting edge of bed, 5+min with CGA for support. Reduced UE support at end of bout. Engaged patient in environment by cueing to look out window, describe what he sees. Reinforced TTWB in this posture, positioned L foot forward to reduce weight bearing, provided tactile cues to promote weight bearing through R LE Patient/Family Training: Patient educated about condition and how PT can help with recovery. Reinforced TTWB on L LE while sitting EOB. At the end of today's therapy session patient was left in bed 1:1 staff present with an appropriatecall light within reach. Patient's needs and questions addressed during today's session. Assessment Today patient demonstrates ability to engage in supine LE exercises, transfer supine to/from sit with maximal assist of 2, and sit edge of bed for 5+min with contact guard assistance of 1. Patient able to follow simple instructions for exercise and other activity, this ability was enhanced with PT taking his joints through the motion first. Patient demonstrated increased alertness and decent trunk control while sitting edge of bed. Patient will benefit from continued skilled physical therapy to promote strength during recovery, assist patient with increasing abilities with transfers and functional mobility, and to reinforce weight bearing precautions. Barriers to a safe discharge home: Barriers to Discharge Home: Current functional status, Fall risk, Safety concerns Comorbid Conditions: None Personal Factors: Age, Balance impairment, History of falls, Needs assistive device Discharge Therapy Needs - PT: Ongoing skilled physical therapy Level of Care Needed - PT: Assistance with bed mobility, Assistance with transfers (Comment), Assistance with walking and moving around the home, Assistance with stairs, Physical assistance needed, Cognitive assistance needed Skilled therapy can include physical therapy provided by home health, outpatient clinic, or a post-acute facility. The location of these services is determined by the patient's care team in partnership with patient/family. Functional Goals and Timeframes: PT Goal #1: Patient will demonstrate independence with supine to/from sit transfer without use of hospital bed features to progress functional mobility and return to prior level of function. PT Goal #1 Status: Progressing PT Goal #2: Patient will demonstrate functional transfers with moderate assitance with least restrictive assistive device while maintaining TTWB on LLE to progress functional mobility and facilitate return to prior level of function. PT Goal #2 Status: Progressing PT Goal #3: Patient will ambulate 10ft or greater with least restrictive assistive device while maintaining TTWB on LLE with minimal assistance in order to progress functional mobility and facilitatereturn to prior level of function. PT Goal #3 Status: Progressing Plan Patient agrees with the plan of care and goals. Treatment Plan: PT Frequency: 5 times per week PT Amount: 1 visit per day PT Inpatient Duration : Until goals are met or hospital discharge Plan: Continue with current plan PT Plan Comments: Skilled physical therapy to promote safety and independence with functional mobility, decrease fall risk, determine appropriate durable medical equipment needs, and aid with discharge planning Treatment interventions may include: Treatment/Interventions: Therapeutic exercise, Therapeutic functional activity, Neuromuscular re-education, Gait training Time Spent with Patient Therapeutic Interventions Therapeutic Activity (min): 15 min Therapeutic Exercise (min): 15 min Time Tracking Total Timed Units (min): 30 min Total Treatment Time (min): 30 min Tamia Pedraza, Ph.D., P.T., D.P.T. * Hayley Durham L.G.S.W., M.S.W. - 11/29/2023 3:22 PM CDT SUBJECTIVE Social Work communicated with patient, Service, and Nursing regarding discharge planning. Social Work attempted to meet with patient's family in his hospital room but they had recently left for the day. [facility] ([phone]) inquiring about patient's VA benefits. OBJECTIVE Patient was in his room with his eyes open. He politely answered Social Work brief questions. He did not know his 's phone number. Patient is anticipated to be medically ready at end of week or weekend. Referrals sent: [facility] ASSESSMENT / PLAN ASSESSMENT It appears application for Medicaid is initiated. Patient's lack of insurance my be a barrier for placement. Patient appears well-supported by and family. PLAN Patient may need to discharge to retirement facility/swing bed. Social Work will continue to talk to patient's . Social Work will continue to follow to provide support. Social Work will continue to assist with discharge needs. Aimee Ahuja, M.S.W. 11/29/23 * Tresa Pizarro O.T., [facility] - 11/29/2023 2:57 PM CDT 11/29/23 1457 Reason Therapy Missed Reason Therapy Missed No visit this date: Checked in with patient's nurse who noted that patient ate well today without signs of aspiration. Will check in tomorrow to determine if a video fluoroscopic swallow study is needed before advancing diet. * Daniela Torres R.N., C.W.C.N. - 11/29/2023 2:45 PM CDT [facility] Wound RN consulted to assess Carlos Alberto Grayson skin alterations. Wound assessment, pain, and [place] noted in the flowsheet. No images were taken during this patient assessment. History: Per provider note, patient is an 83 y.o. hospitalized for evaluation and management of intraventricular hemorrhage, SAH, left pelvis fracture with complex involvement of acetabulum s/o ORIF 11/24 after a fall off a ladder while attempting to repair a leak on his roof. His hospital course hasbeen complicated by acute anemia, hypotension (resolved), hypoxic respiratory failure (resolved), acute delirium. Medical comorbidities are significant for cataracts, macular degeneration, hard of hearing, BPH. Assessment: The patient was assessed while lying in bed with family at bedside. [facility] RN consulted toassess the wound on the right pretibial. The wound bed is covered with adherent yellow fibrin/slough. Small scattered abrasion are noted medial to this wound. While the patient has no recollection ofhow this wound originated, it likely was trauma related from his recent fall. Small intact blistersare noted on the abdomen near the wound vac drape. See wound care recommendations below. 11/29/23 1410 Wound 11/28/23 Traumatic Pretibial Right Date First Assessed/Time First Assessed: 11/28/23 2300 Primary Wound Type: Traumatic Location: Pretibial Wound Location Orientation: Right *Shape Irregular *Wound Bed Open;Yellow;Fibrin/Slough Tissue Exposed None Odor None *Exudate Amount None Nafisa-wound Assessment Fragile Treatments Cleansed Periwound Treatment Cleansed (Comment) Wound Cleansed with Wound cleanser *Primary Dressing Wound gel *Primary Dressing Frequency of Change Every third day & PRN Primary Dressing Changed New Primary Dressing Status Clean;Intact *Secondary Dressing Foam *Secondary Dressing Frequency of Change Every third day & PRN Secondary Dressing Changed New Secondary Dressing Status Dry;Clean;Intact Changed by Wound traffic law attorney Partial head to toe skin assessment completed; unable to assess the sacrum/coccyx at time of assessment. Per nursing staff, no other concerns. DRESSING RECOMMENDATIONS: #1 Traumatic Pretibial Right -Cleanse the wound with Vashe wound cleanser. Pat dry. -Apply a layer of PluroGel, 3mm thick, directly to the wound bed. -Ensure that the PluroGel covers the wound completely. -Cover with a 4x4 Mepilex border. -Change every 3 days and PRN. Abdominal Blisters -Cleanse the wound and periwound skin with Vashe wound cleanser. Pat dry. -Place a Mepitel?? One dressing over the wound bed. Change weekly and PRN. -no cover dressing is needed. -Change every 7 days and PRN. Recommended interventions for pressure redistribution and shear reduction: Offload heels on pillows at all times when in bed. Full 30 degree turns side to side every 2 hours with supine positioning only for meals. Reposition at least every hour while in the chair. Reposition medical devices per policy. Assess and pad the skin under and surrounding the medical devices with a prophylactic foam dressing. Keep the HOB below 30 degrees except for meals unless medically contraindicated. Apply a prophylactic sacral Mepilex?? border dressing to cover the coccyx/sacral area. Ensure the dressing is in full contact with the skin to prevent moisture- related skin breakdown. Lift twice daily to assess when used for prevention. Change every 3 days and PRN. Utilize the Advanced Wave Low Air Loss and Immersion mattress. Recommended interventions for moisture control: InterDry?? Ag placed between folds. Allow at least 2 inches of fabric exposed to air on at least one side of the skin fold for moisture evaporation. Can be used up to 5 days unless soiled with stool or urine. Do not rinse with water. Utilize the breathable incontinence underpads while in bed. Adult briefs should only be worn while ambulating or in the chair. Cleanse with foaming cleanser or wipes after each incontinence episode and for routine hygiene cares. Consult recommendations: NA Education: Discussed the plan of care with the patient and nursing. They agree to the plan. The [facility] RN will continue to see the patient, contact or reconsult for worsening wounds or new wounds. * Chelly Galvez, RDN - 11/29/2023 1:53 PM CDT Clinical Nutrition: Initial Assessment Clinical Nutrition was requested to evaluate patient for assessment of nutritional status SUBJECTIVE Mr. Grayson is a 83 y.o. male admitted after a fall from a ladder. He sustained a pelvic fracture s/p ORIF of acetabulum on 11/25/23. Completed visit with patient, family, and care team today as part of face to face care. Current Nutrition (since admission): AUTOMATIC LEHR OPERATOR notes that he has eaten everything for her today. Has drank all fluids on trays. Pt/ interested in an oral supplement until he is feeling better and healing. Will send. Has had a number of days of minimal po intake and will monitor. Nutrition history: Pt spouse notes that he typically eats well. He does not follow any special kindof diet. He likes anything strawberry and banana. He loves sweets especially cookies. Food Allergies: None. Chewing and Swallowing: On 11/25 his swallow was evaluated-Level 2-6 (mildly thick through Soft and Bite Sized). However, he was more confused in coming days and was downgraded to Level 5 (Minced and Moist). Nutrition education/counseling: RDN encouraged protein for healing. OBJECTIVE Current nutrition orders: Dietary Orders (From admission, onward) Start Ordered 11/27/23 1244 Adult Diet Dysphagia; Mildly Thick (MT2); Minced and Moist (MM5) Diet effective now Comments: 1:1 assist for PO intake Meds crushed into puree with no dry powder. Offer small sips of MT2 liquids prior to meds to prime the swallow. Question Answer Comment Diet texture: Dysphagia Drink/Liquid Consistency: Mildly Thick (MT2) Food Consistency: Minced and Moist (MM5) 11/27/23 1243 GI Function: Last BM Date: 11/28/23 (per chart review), [place] Stool Chart: Type 6: Fluffy pieces with ragged edges, a mushy stool, Passing Flatus: Yes Integumentary/Wounds: Lines/Drains/Airways Wound Duration Wound 11/23/23 Face Left;Upper 5 days Wound 11/23/23 Partial thickness Hand Left 5 days Wound 11/25/23 Incision Pannus Medial 4 days Wound 11/25/23 Incision Pelvis Left;Lateral 4 days Wound 11/27/23 Arm Anterior;Distal;Left;Upper 2 days Wound 11/28/23 Full thickness Pretibial Right scab <1 day Medications: Scheduled Meds:acetaminophen, 650 mg, oral, Q6H orqkhrkfjsopf-cwkhafga-dnmvqzkyx in Lipoderm, 1 g, topical, TID bisacodyL, 10 mg, rectal, Daily lidocaine, 1 patch, transdermal, Daily metoprolol tartrate, 12.5 mg, oral, BID polyethylene glycol, 17 g, oral, Daily ramelteon, 8 mg, oral, Daily at bedtime sennosides, 17.2 mg, oral, BID sodium chloride, 3 mL, intravenous, Q12H KRISH suvorexant, 10 mg, oral, Daily at bedtime tamsulosin, 0.4 mg, oral, Daily Continuous Infusions: PRN Meds:. fentaNYL (PF) HYDROmorphone OR HYDROmorphone ipratropium-albuteroL metoprolol naloxone OLANZapine sodium chloride sodium chloride Anthropometrics: Height: 180.3 cm Admission Weight: 86.3 kg (11/23/2023) Current Weight: 86.6 kg [place] Body Weight (Calculated) : 75.3 kg BMI (Calculated): 26.6 kg/m?? Net IO Since Admission: 7,541.57 mL [11/29/23 1353] Weight history: Wt Readings from Last 12 Encounters: 11/24/23 86.6 kg Weight Change History: No weight change per . No weight history in medical record. Estimated Needs: Total Calorie Needs: 8539-8306 calories/day Method to Estimate Energy Needs: kcal/kg (22-25 kcal/kg) Weight Used for Equation Calculations: 86.3 kg Total Protein Needs: 85 - 102 grams/day (Method to Estimate Protein Needs (g/kg): 1 - 1.2 gm/kg) Weight Used to Calculate Protein Needs (Kg): 85 kg Nutrition Diagnosis: Swallowing difficulty related to fall and confusion as evidenced by need for dysphagia diet Malnutrition Criteria: Malnutrition Assessment: Well Nourished The patient does not meet the ASPEN Criteria of malnutrition based on: Energy Intake: No Change Interpretation of Weight Loss: No Change ASSESSMENT / PLAN ASPEN Criteria Malnutrition Status: Well Nourished Nutrition Intervention: Interventions: Medical food supplement, Increase nutrient intake with small, frequent meals and/or snacks, Vitamin and mineral supplements. Recommendations: RDN to start oral supplements for patient. Therapeutic multivitamin with minerals daily to support skin integrity/wound healing. Diet advancement per OT and future swallow results. Monitoring/Evaluation: Nutrition parameter to monitor: Meals/Supplement Intake, Diet Progression/NPO Status, Skin Integrity, Pertinent Labs, Nausea/Vomiting/Diarrhea, Chewing/Swallowing Desired Outcome: Consume adequate nutrition orally Patient Goal(s): Consume 50-100% of 3 meals daily and Maintain weight Clinical Nutrition will continue to follow. For questions about patient's nutritional care please contact pager [phone] on weekdays 07:30-16:00 or [phone] on weekends/holidays ([facility]). * Naveed Dan P.A.-C. - 11/29/2023 12:01 PM CDT SUBJECTIVE Mr. Grayson was seen and examined by the Trauma team in his room this morning. He is a 83 y/o male, hospitalization day 6 secondary to elevated fall off of a ladder. Patient was originally sent to SICU for higher acuity care but has since been transferred down to general floor care. Since coming to floor, patients delirium/agitation has slightly been improved. Continue following up with geriatric medicine in regards to delirium management. No olanzapine required over last 24hrs. Patient is alert and oriented to person, place, and year, pleasantly confused. He denies any pain or acute changesover the last 24 hours. Overnight, patient had a bout of bradycardia with negative trops and no acute ischemic changes to ECG. Patient is afebrile and hemodynamically stable. OBJECTIVE VITAL SIGNS Blood Pressure: 140/73, Pulse Rate: 81, Resp Rate: 22, Temperature: 36.5 ??C, SpO2: 93 % I/O last 3 completed shifts: In: 2049 [P.O.:1550] Out: 2049 [Urine:1940; Drains:110] Vitals and nursing note reviewed. Constitutional General: He is not in acute distress. Appearance: Normal appearance. He is not ill-appearing or toxic-appearing. Cardiovascular Rate and Rhythm: Normal rate. Rhythm irregular. Pulses: Normal pulses. Pulmonary Effort: Pulmonary effort is normal. No respiratory distress. Breath sounds: Rales present. Abdominal General: There is distension. Palpations: Abdomen is soft. Tenderness: There is no abdominal tenderness. Neurological Mental Status: He is alert. Mental status is at baseline. He is disoriented. Psychiatric Mood and Affect: Mood normal. Thought Content: Thought content normal. DIAGNOSTICS I have reviewed labs, xray, CT, and diagnostics. DX Abdomen Portable Anterior Posterior 1 View Result Date: 11/29/2023 Impression: Mild decrease in gaseous distention of both loops of small and large bowel since 11/27/2023 suggestive of improving ileus. No evidence of obstruction. Plate and screw fixation left pelvis. Surgical drain in the soft tissues. CT Head without IV Contrast Result Date: 11/29/2023 Impression: Expected temporal evolution. RT Pulse Oximetry, Overnight Result Date: 11/29/2023 Impression: Preliminary report. Interpretation to follow. Please contact the [facility] at [phone] with questions regarding this report. Physician: Luis Neely M.D. [id number] Christopher Arciniega M.D. [id number] DX Chest Portable 1 View Result Date: 11/29/2023 Impression: Shallow inspiration with bibasilar opacities, atelectasis or consolidation. Mild improved aeration compared with 11/27/2023. No definite effusions. US Lower Extremity Veins Bilateral Result Date: 11/28/2023 Impression: Positive for acute DVT in the left lower extremity involving the soleal vein. Lab results last 24 hours: Recent Results (from the past 24 hour(s)) Troponin T, Baseline with 2 Hour/6 Hour Reflex Biomarker Panel Collection Time: 11/28/23 9:01 PM Result Value Troponin T, Baseline, 5th gen 31 (H) Basic Metabolic Panel Collection Time: 11/28/23 9:01 PM Result Value Potassium, P 4.4 Sodium, P 142 Chloride, P 104 Bicarbonate, P 25 Anion Gap, P 13 BUN (Blood Urea Nitrogen), P 23 Creatinine 0.94 Estimated GFR (eGFR) 81 Calcium, Total, P 7.7 (L) Glucose, P 142 (H) Magnesium Collection Time: 11/28/23 9:01 PM Result Value Magnesium, S 2.1 Phosphorus Inorganic Collection Time: 11/28/23 9:01 PM Result Value Phosphorus (Inorganic), S 2.5 Troponin T, 2 Hour with 6 Hour Reflex, 5th Gen Collection Time: 11/28/23 11:33 PM Result Value Troponin T, 2 hr, 5th gen 32 (H) 2H Delta 1 2H Delta Interp Not Changing CBC without Differential Collection Time: 11/29/23 7:01 AM Result Value Hemoglobin 10.7 (L) Hematocrit 33.6 (L) Erythrocytes 3.60 (L) MCV 93.3 RBC Distrib Width 14.6 (H) Platelet Count 144 Leukocytes 4.5 Basic Metabolic Panel Collection Time: 11/29/23 7:01 AM Result Value Potassium, S 4.1 Sodium, S 139 Chloride, S 104 Bicarbonate, S 26 Anion Gap 9 BUN (Blood Urea Nitrogen), S 20 Creatinine 0.97 Estimated GFR (eGFR) 78 Calcium, Total, S 7.5 (L) Glucose, S 123 ASSESSMENT / PLAN Today's Plan: - acute L-soleal DVT - 11/28 CT head: stable/improved from recent 11/[address] - repeat head CT 11/29. Continue to hold therapeutic anticoagulation and IVC filter placement at this time pending next head CT. - pt pulled midline drain yesterday while agitated; continue to monitor - AXR: improving ileus. Continue to monitor I&Os - f/u geriatric medicine recommendations New Consults Geriatric Medicine Neurosurgery C Neurology OTS 1 PT/OT Diet: Adult Diet Dysphagia; Mildly Thick (MT2); Minced and Moist (MM5) Activity: Up with assistance, LLE TTWB VTE Prophylaxis: SCDs, holding therapeutic anticoagulation until f/u head CT 11/29 vs IVC filter GI Prophylaxis: not indicated Bowel Regimen: MiraLax, Dulcolax, Senokot Pain: Tylenol, triple cream, lidocaine patch, Dilaudid Antibiotics: None indicated Disposition: TBD #1 History Of Falling - TTS: 11/24 - SAS: 11/23 - PMR TBI, PT/OT consulted #2 Subarachnoid Hematoma Trauma Without Loss Of Consciousness Subsequent #3 Contusion Scalp Initial - Neurosurgery Chief C consulted and following - 11/[address]: interval increase in left lateral ventricle hemorrhage - 11/[address]: Slight interval increase in number punctuate foci intraparenchymal hemorrhage - continue to hold DVT prophylaxis 2/2 worsening serial head CTs - NSGY recommending IVC filter. Vascular IR doesn't place prophylactic IVC filters. 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 PMR TBI continue to follow patient #5 Thrombosis Deep Vein Lower Extremity Left (HCC) Acute L-Soleal vein DVT - holding chemical DVT prophylaxis 2/2 serial unstable head CTs & neurosurgery recs requiring stable head CT - 11/[address]: stable/improved blood products - repeat head CT AM 11/29 - continue to hold therapeutic anticoagulation at this time; continue SCDs. Pending next head CT todetermine AC management - repeat BLLE Duplex US in one week (12/05) #6 Fracture Rib One Open Initial Left #7 Atelectasis #8 Effusion Pleural Nondisplaced Left anterior 6th rib fx - traumatic rib fracture protocol - aggressive pulmonary hygiene - multimodal pain regimen #9 Contusion Other Intra Abdominal Organs Initial #10 Fracture Acetabulum Other Closed Initial Left (HCC) #11 Fracture Pelvis Multiple Closed With Stable Disruption Pelvis Ring Initial (HCC) #12 Fracture Ilium Closed Initial Left (HCC) - OTS-1 consulted and following - 11/24 OR L-acetabular fx fixation. Closed over 2 drains w/ wound vac in place. - 11/27 PM: patient pulled midline drain out 2/2 delirium/agitation - LLE: TTWB - continue working w/ PT and OT - f/u per OTS #13 Anemia Posthemorrhagic Acute (Blood Loss Anemia) #14 Postprocedural Hemorrhagic Shock Initial - 11/24 status post OR for LLE fixation, patient received: 4u pRBC, 2u FFP, 4u plts 2/2 hemorrhagic shock - TEG has since been normalized. 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 Associated attestation - Landen Quinonez M.D. - 11/29/2023 5:32 PM CDT Patient reviewed with the trauma team. Metoprolol has been decreased because of bradycardia. He hasa soleal DVT. He has a follow-up head CT scheduled for tomorrow. Given that the soleal DVT is infrageniculate we will hold off on IVC filter but will plan in follow-up venous duplex in 1 week. * Kelly Johnson P.A.-C. - 11/29/2023 8:04 AM CDT Geriatrics Consult - Progress Note SUBJECTIVE Mr. Grayson was seen on morning rounds. He was lying in bed with nonviolent restraints in place and AUTOMATIC LEHR OPERATOR was in the room cleaning up. He shook my hand. He asked how I knew his name. He reported that he really needed to have a bowel movement as he had not had a bowel movement for several days (last bowel movement charted 11/27). He had no other issues to discuss with me. He was placed in non-violent restraints as he pulled a line out. I have reviewed the current medication list. OBJECTIVE VITAL SIGNS Temperature: [36.4 ??C-36.6 ??C] 36.4 ??C Resp Rate: [16-22] 20 Blood Pressure: (89-150)/(40-79) 150/61 SpO2: [89 %-100 %] 96 % Flow Rate (L/min): [2 L/min] 2 L/min Pulse Rate: [52-123] 75 PHYSICAL EXAM General: non-toxic in no acute distress, appears stated age Mental: alert, was able to tell me his name, month, year and that he was in [place], [place], but required prompting to say he was in a hospital, said days of the week forwards and backwards, said a rock could float on special water, 2 and 1 pounds were equal Skin: warm, dry, well-perfused Eyes: anicteric sclerae, pupils equal, round ENT: moist mucous membrane Lungs: Even non-labored respirations on room air Abdomen: soft, non-tender, non-distended Neuro: no obvious focal sensorimotor deficit DIAGNOSTICS I have independently reviewed labs. ASSESSMENT / PLAN Mr. Carlos Alberto Grayson is a 83 y.o. 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 His hospital course has been complicated by acute anemia, hypotension (resolved), hypoxic respiratory failure (resolved), acute delirium. Medical comorbidities are significant for cataracts, macular degeneration, hard of hearing,BPH. 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 Grayson has known chronic cognitive impairment with significant short-term memory issues and inability to manage his own finances. He was otherwise independent in most IADLs and ADLs. He was a strong familial history of dementia and likely has an etiology of Alzheimer's. Unfortunately, he continues to exhibit some delirium. Attempting to optimize his sleep/wake cycle. It appears though he did sleep from around 2784-0617. We will continue the current sleep medication plan and taper as able. He was started on tamsulosin for urinary retention. He is still requiring frequent I&O cath. I do wonder if part of this is related to him lying flat in bed and query if encouraging him to get upto the commode would be helpful. RECOMMENDATIONS: General delirium prevention/management strategies: Minimize RAILWAY SWITCHMAN-acting medications. Increase mobility to match ability. Frequent reorientation. Provide moderate level of social and cognitive stimulation. Treat dehydration and constipation. Nonpharmacologic sleep promotion strategies. Continue ramelteon, suvorexant until circadian rhythm improves Taper Plan: Discontinue suvorexant then taper ramelteon to 5 mg then switch to melatonin Continue olanzapine 2.5 mg PRN for agitated behaviors that are not responsive to nonpharmacologic interventions Continue tamsulosin (new) and I&O cath PRN for urinary retention. Encourage him to sit at edge of bed or stand and walk to bathroom/commode. The above plan of care was discussed with Dr. Guru Bill [phone]), HIM programmer analyst consultant. I personally spent a total of 35 minutes providing and coordinating care today. Thank you for the opportunity to care for this patient. We will continue to follow with you. Pleasepage the Geriatrics Consult Service at [phone] with any questions or concerns. * Mickey Benton M.D. - 11/29/2023 6:39 AM CDT Orthopedic Service: OTS-1 Hospital Admission Day: 11/23/2023 Length of Stay: 6 Procedures: Surgery Information This Encounter Past Procedures (11/29/2022 to Today) Date Procedures Providers Loc / Dept 11/25/2023 OPEN REDUCTION INTERNAL FIXATION ACETABULUM. Naveed Higuera M.D.Markos, James R, M.D.Labott, Joshua R, M.D.Hidden, Krystin A, M.D. [facility] OR Unscheduled Procedures Date Procedures Providers Loc / Dept Not Scheduled OPEN REDUCTION INTERNAL FIXATION ACETABULUM. Rodrigo Leiva M.D. [facility] OR SUBJECTIVE Mr. Grayson was seen and examined in his floor care room this morning. He is a bit more reliable on exam and was able to grossly move left lower extremity. He has continued to be delirious on top ofhis underlying dementia. He pulled his anterior/midline drain at some point overnight. It is a bit unclear as to which drainage which due to how these are labeled but his more lateral drain which appears to be drain 1 subsequently put out 80 cc so we will plan to keep this. He has had some leaking around the lateral drain which has improved. His incisional VAC is holding suction with no output inthe canister. OBJECTIVE VITALS Temperature: [36.4 ??C-36.6 ??C] 36.4 ??C Resp Rate: [16-22] 20 Blood Pressure: (89-150)/(40-79) 150/61 SpO2: [89 %-100 %] 96 % Flow Rate (L/min): [0 L/min-2 L/min] 2 L/min Pulse Rate: [52-123] 75 I/O last 3 completed shifts: In: 1690 [P.O.:1190] Out: 1520 [Urine:1440; Drains:80] PHYSICAL EXAM General: follows commands inconsistently, confused Cardiac: Hemodynamically stable. Lungs: Non-labored respirations on room air, satting well. Left Lower Extremity: Surgical incision CDI. Left ilioinguinal incisional vac. Calf soft and non-tender. Neurovascularly intact with palpable pulses, brisk cap refill. Sensation intact grossly to light touch throughout dermatomes. Fires tib ant, gastroc, ehl, fhl spontaneously, though not to command Drain: davol drain lateral to suction Output by Drain (mL) 11/27/23 07 - 11/27/23 19011/27/23 190 - 11/28/23 0711/28/23 07 - 11/28/23 19011/28/23 190 - 11/29/23 0711/29/23 07 - 11/29/23 0759 Closed/Suction Drain 1 Left;Lateral Hip Accordion 10 Fr. 10 0 0 80 LABS Recent Results (from the past 24 hour(s)) Troponin T, Baseline with 2 Hour/6 Hour Reflex Biomarker Panel Collection Time: 11/28/23 9:01 PM Result Value Troponin T, Baseline, 5th gen 31 (H) Basic Metabolic Panel Collection Time: 11/28/23 9:01 PM Result Value Potassium, P 4.4 Sodium, P 142 Chloride, P 104 Bicarbonate, P 25 Anion Gap, P 13 BUN (Blood Urea Nitrogen), P 23 Creatinine 0.94 Estimated GFR (eGFR) 81 Calcium, Total, P 7.7 (L) Glucose, P 142 (H) Magnesium Collection Time: 11/28/23 9:01 PM Result Value Magnesium, S 2.1 Phosphorus Inorganic Collection Time: 11/28/23 9:01 PM Result Value Phosphorus (Inorganic), S 2.5 Troponin T, 2 Hour with 6 Hour Reflex, 5th Gen Collection Time: 11/28/23 11:33 PM Result Value Troponin T, 2 hr, 5th gen 32 (H) 2H Delta 1 2H Delta Interp Not Changing IMAGING DX Chest Portable 1 View Result Date: 11/25/2023 Impression: No change since 11/24/2023. Low lung volumes. Bibasilar atelectasis. Skeletal degenerative changes. Left rib fracture not well seen radiographically. Remainder negative. CT Head without IV Contrast Result Date: 11/24/2023 Impression: 1. 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 2. Punctate hyperdensity noted in the left frontal region on the prior study is again noted and possibly reflects a punctate cortical hemorrhage. 3. Mild asymmetric prominence of the extra-axial space over the left frontal convexity may reflect a small subdural effusion. ASSESSMENT / PLAN #1 s/p ORIF left associated both column acetabular fracture 11/[address] Higuera via limited ilioinguinal with ASIS osteotomy plus Stoppa approach --Activity: TTWB LLE. PT/OT to follow. --Antibiotics: Perioperative cefazolin x2 doses completed. --Blood: Hemodynamics have been relatively stable. Last hemoglobin 10.2. --Brace: none --Cultures/Path: None. --Diet: Per primary service. --Drains: 1 davol drain with 80 cc, continue to monitor; iVAC to incisions --Dressing: Surgical dressing in place, C/D/I. Ivac in place. --VTE Prophylaxis: Mechanical prophylaxis with SCDs, early mobilization, and recommend subcutaneousheparin products --Pain: per primary --Urinary: Per primary --Imaging: Postop imaging completed --Code: Full --Dispo: Anticipate discharge to SNF, per primary From 6am-6pm Tuesday-Tuesday, please contact OTS-1 with any questions regarding this patient. If overnight (6 PM to 6 AM) or any time on weekends, please contact the Orthopedic Surgery house resident marine resource economist at [phone] * Farnaz Reece C.R.T., Alexandrea.R.T. - 11/29/2023 1:56 AM CDT 11/28/232221 Overnight Oximetry Procedure Overnight Oximetry Set-up Completed Patient placed on Overnight Oximetry at this time. Electronically signed by: Farnaz Reece C.R.T., L.R.T. 11/29/23 1:57 AM CDT * Hayley Durham, Julissa.Ten., M.S.W. - 11/28/2023 5:30 PM CDT SUBJECTIVE Social Work spoke with Nursing regarding patient's ability to communicate. Social Work met with patient at bedside to discuss discharge needs and provide a supportive visit. Patient was cooperative. His ability to answer Social Work questions appropriately waxed and waned. Patient shared he was in the [place] and sustained hearing loss and is compensated [facility]150/month through the [facility]. Patient confirms he does not have insurance and states, I do not believe in that stuff. Patient tells Social Work she can help him by making him a small cake. Patient shares he receives something like $195/month for senior living. 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 Patient is agreeable to [facility] retirement facility and applying for insurance if helpful to facilitate that. He also talksabout some having house payments so he wouldn't take that. Patient shares, I have been serving the [employer] my whole life. I've been living for the [employer]. He shares that this makes everything better. OBJECTIVE Patient is no longer in restraints. Patient is located on FR. 5C. ASSESSMENT / PLAN ASSESSMENT Social Work talking to patient's about discharge planning is warranted given patient's cognitive state. Patient does not appear to have insurance on file which may complicate discharge to retirement facility. PLAN Social Work will call patient's to discuss disposition. Social Work will continue to follow to provide support. Social Work will continue to follow to assist with discharge needs. Aimee Ahuja, M.S.W. 11/28/23 * Tresa Pizarro O.T., BCPR - 11/28/2023 4:13 PM CDT 11/28/23 1613 Reason Therapy Missed Reason Therapy Missed Medical hold: Patient not alert enough to eat his lunch upon therapist arrival when tray came to room. Patient's IA noted he swallowed his medications well with nursing but has not be alert enough to safely eat a meal. Therapist left pager to call when patient was alert enough, however, this did not occur. Will check back to assess how meals are going and upgrade diet when safe. Staff aware that patient needs to have his mouth cleared out after meals and cuing throughout the meal for safety. * Rosette Ramos P.A.-C., M.S. - 11/28/2023 12:59 PM CDT Given that Mr. Grayson has not had a truly stable head CT, he has not cleared for DVT chemoprophylaxis. If the primary team would like to initiate DVT prophylaxis we would recommend an IVC filter. In order to start SQH he will need a stable head CT and if he can not get to that point, he will needan IVC filter. * Laureano Garcia P.A.-C. - 11/28/2023 10:27 AM CDT Geriatrics Consult - Progress Note SUBJECTIVE Patient doing well this morning, alert and oriented x2. States that he has currently in a medical clinic due to an accident. Unable to state exactly what caused his accident. Is hopeful to return home but understands that he needs rehab 1st. Tolerating food and drink. I have reviewed the current medication list. OBJECTIVE VITAL SIGNS Temperature: [36.2 ??C-37.1 ??C] 36.4 ??C Heart Rate: [73-92] 73 Resp Rate: [16-20] 16 Blood Pressure: (74-135)/(34-72) 101/54 SpO2: [85 %-100 %] 92 % Flow Rate (L/min): [0 L/min-4 L/min] 0 L/min Pulse Rate: [53-143] 72 PHYSICAL EXAM General: Patient seen sitting up in bed, no acute distress Mental: Alert and oriented x 2. Responds appropriately to questions Psych: Mood and affect appear appropriate. Eyes: PERRLA. Extra ocular motion intact. ENT: Oral mucosa pink and moist. No JVD noted. Heart: Regular rhythm and rate; no murmurs Lungs: Clear to auscultation bilaterally; no wheezes, rhonchi or rales. Respirations even and non-labored on room air. Abdomen: Soft, nontender, nondistended. Active bowel sounds x 4 quadrants. Extremities: Dorsalis pedis and posterior tibial pulses 2/2 bilateral lower extremities, no edema noted Skin: Warm and dry, well perfused. No new rashes or lesions noted. Neuro: Cranial nerves II - XII intact. Motor and sensory function of the bilateral upper and lower extremities intact and symmetric. DIAGNOSTICS I have independently reviewed labs, ECG, xray, CT, MRI, echo, ultrasound, and diagnostics. ASSESSMENT / PLAN Mr. Grayson is hospitalized on [facility] Trauma for evaluation and management of: Fracture Ilium Closed Initial Left (HCC) #1 History Of Falling #2 Subarachnoid Hematoma Trauma Without Loss Of Consciousness Subsequent #3 Contusion Scalp Initial #4 Fracture Rib One Open Initial Left #5 Contusion Other Intra Abdominal Organs Initial #6 Anemia Posthemorrhagic Acute (Blood Loss Anemia) #7 Fracture Acetabulum Other Closed Initial Left (HCC) #8 Fracture Pelvis Multiple Closed With Stable Disruption Pelvis Ring Initial (HCC) #9 Fracture Ilium Closed Initial Left (HCC) #10 Encephalopathy Metabolic #11 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 male was hospitalized following a fall off his ladder while attempting to repair a leak on his roof. Injuries sustained include intraventricular hemorrhage, SAH, and left pelvis fracture with complex involvement of the acetabulum (s/p ORIF on 11/24). Hospital course complicated by acute anemia, hypotension (resolved), hypoxic respiratory failure (s/p blood product and crystalloid resuscitation), and acute delirium. Mental status continues to improve. RECOMMENDATIONS: 1. Continue aggressive nonpharmacologic delirium strategies to manage his delirium, including wearing hearing aids 2. Recommend continuing ramelteon, suvorexant 10 mg until circadian rhythm improves. Will discuss with Pharmacy today regarding taper plan 3. Continue olanzapine 2.5 mg prn for agitated behaviors that are not responsive to nonpharmacological interventions. 4. Continue tamsulosin (new med) and I/O cath prn for urinary retention. 5. Hold on further diuresis today as oxygen has been weaned and patient had episode hypotension andtachycardia that responded appropriately with IV fluids The above plan of care was discussed with Dr. Bill, HIM programmer analyst consultant. I personally spent a total of 35 minutes providing and coordinating care today. Thank you for the opportunity to care for this patient. We will continue to follow with you. Pleasepage the Geriatrics Consult Service at [phone] with any questions or concerns. * Naveed Dan P.A.-C. - 11/28/2023 7:56 AM CDT SUBJECTIVE Mr. Grayson was seen and examined by the Trauma team in his room this morning. He is post hospitalization day 5 secondary to elevated fall from ladder landing onto his side. Patient was previously admitted to the SICU for care and has since transitioned to the general floor care yesterday 11/26. Serial head CTs continue to indicate increasing intraparenchymal hemorrhage and NSGY have been consulted and continue to follow and implement their recommendations. Per most recent head CT, they recommend continuing to hold DVT prophylaxis at this time 2/[address] They did recommend IVC filter placement. Vascular IR does not perform prophylactic IVC filter placement. Will continue with SCDmechanical prophylaxis at this time and f/u BLLE Duplex US. Patient is afebrile, hypotensive, low PO intake, low UOP at this time. Patient is receiving an LR 500ml bolus/2hrs at this time. OBJECTIVE VITAL SIGNS Blood Pressure: 108/64, Heart Rate: 73, Pulse Rate: (!) 118, Resp Rate: 17, Temperature: 36.2 ??C, SpO2: 97 % I/O last 3 completed shifts: In: 840 [P.O.:480] Out: 2410 [Urine:2400; Drains:10] Vitals and nursing note reviewed. Constitutional General: He is not in acute distress. Appearance: He is not toxic-appearing. Interventions: He is restrained. Comments: Patient seen this morning in his room with AUTOMATIC LEHR OPERATOR at bedside. Patient is pleasantly alert and confused. Patient is oriented to person this a.m.. Restraints in place Cardiovascular Rate and Rhythm: Bradycardia present. Pulses: Normal pulses. Pulmonary Effort: Pulmonary effort is normal. Abdominal General: There is distension. Palpations: Abdomen is soft. Tenderness: There is no abdominal tenderness. Skin General: Skin is warm. Neurological Mental Status: He is alert. Mental status is at baseline. He is disoriented. DIAGNOSTICS I have reviewed labs, ECG, xray, CT, and diagnostics. DX Chest Portable 1 View Result Date: 11/27/2023 Impression: Since 11/26/2023, no substantial change. Similar bibasilar airspace and interstitial opacities. Trace pleural effusions. Obscured heart borders. Degenerative and hypertrophic changes of thespine. DX Abdomen Portable Anterior Posterior 1 View Result Date: 11/27/2023 Impression: Mild gaseous filling of the small bowel and colon favors an ileus. Nothing for significant obstruction. Extensive orthopedic fixation left pelvis. Left pelvic soft tissue drainage catheter. Lab results last 24 hours: Recent Results (from the past 24 hour(s)) Basic Metabolic Panel Collection Time: 11/27/23 6:37 PM Result Value Potassium, P 3.9 Sodium, P 142 Chloride, P 104 Bicarbonate, P 27 Anion Gap, P 11 BUN (Blood Urea Nitrogen), P 21 Creatinine 0.99 Estimated GFR (eGFR) 77 Calcium, Total, P 7.8 (L) Glucose, P 120 Phosphorus Inorganic Collection Time: 11/27/23 6:37 PM Result Value Phosphorus (Inorganic), S 2.8 CBC without Differential Collection Time: 11/28/23 7:41 AM Result Value Hemoglobin 10.2 (L) Hematocrit 32.1 (L) Erythrocytes 3.48 (L) MCV 92.2 RBC Distrib Width 14.6 (H) Platelet Count 133 (L) Leukocytes 4.0 Basic Metabolic Panel Collection Time: 11/28/23 7:41 AM Result Value Potassium, S 3.9 Sodium, S 142 Chloride, S 105 Bicarbonate, S 28 Anion Gap 9 BUN (Blood Urea Nitrogen), S 23 Creatinine 1.01 Estimated GFR (eGFR) 75 Calcium, Total, S 7.4 (L) Glucose, S 125 ASSESSMENT / PLAN Today's Plan: - CXR: bibasilar atelectasis, pleural effusions, stable - AXR: ileus - NSGY recommended prophylactic IVC filter. Vascular IR does not perform prophylactic IVCs - SCDs in place, ordered BLLE duplex US to assess for DVTs - AM Head CT repeat - pt became hypotensive and bradycardiac last night 2/2 metoprolol 25mg BID dosage. ECG showed sinus quirino. - DC'ed metoprolol 25mg BID, initiated metoprolol 12.5mg BID - poor PO intake, low UOP. Bladder scan post-residual minimal. LR 500ml/2hrs - O2 sleep study tonight - continue implementing geriatric recommendations for delirium prevention/management New Consults Geriatric Medicine Neurosurgery C OTS 1 Diet: Adult Diet Dysphagia; Mildly Thick (MT2); Minced and Moist (MM5) Activity: Up with assistance, LLE TTWB VTE Prophylaxis: SCDs in place, no chemoprophylaxis at this time 2/2 unstable head CTs + NSGY recommendation GI Prophylaxis: not indicated Bowel Regimen: MiraLax, Dulcolax, Senokot Pain: Tylenol, triple cream, lidocaine patch, Dilaudid Antibiotics: None indicated Disposition: TBD #1 History Of Falling - TTS: 11/24 - SAS: 11/23 - PMR TBI, PT/OT consulted #2 Subarachnoid Hematoma Trauma Without Loss Of Consciousness Subsequent #3 Contusion Scalp Initial - Neurosurgery Chief C consulted and following - 11/[address]: interval increase in left lateral ventricle hemorrhage - 11/[address]: Slight interval increase in number punctuate foci intraparenchymal hemorrhage - continue to hold DVT prophylaxis 2/2 worsening serial head CTs - NSGY recommending IVC filter. Vascular IR doesn't place prophylactic IVC filters. 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 PMR TBI continue to follow patient #5 Thrombosis Deep Vein Lower Extremity Left (HCC) Acute L-Soleal vein DVT - holding chemical DVT prophylaxis 2/2 serial unstable head CTs & neurosurgery recs requiring stable head CT - continue SCDs at this time - f/u AM head CT - determine definitive AC management 11/28 s/p head CT #6 Fracture Rib One Open Initial Left #7 Atelectasis #8 Effusion Pleural Nondisplaced Left anterior 6th rib fx - traumatic rib fracture protocol - aggressive pulmonary hygiene - multimodal pain regimen #9 Anemia Posthemorrhagic Acute (Blood Loss Anemia) #10 Postprocedural Hemorrhagic Shock Initial - 11/24 status post OR for LLE fixation, patient received: 4u pRBC, 2u FFP, 4u plts 2/2 hemorrhagic shock - TEG has since been normalized. - hgb 10.5 (11.0/8.6/11.6) - patient has not received any blood products over the last 24 hours. Continue to monitor and transfuse as indicated - she is if patient is symptomatic and/or hgb < 7 #11 Contusion Other Intra Abdominal Organs Initial #12 Fracture Acetabulum Other Closed Initial Left (HCC) #13 Fracture Pelvis Multiple Closed With Stable Disruption Pelvis Ring Initial (HCC) #14 Fracture Ilium Closed Initial Left (HCC) - OTS-1 consulted and following - 11/24 OR L-acetabular fx fixation - LLE: TTWB - continue working w/ PT and OT #15 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) #16 Encephalopathy Metabolic #17 Delirium #18 Physical Restraint Status - Geriatric Medicine consulted and following - Recommended initiation of ramelteon and suvorexant to help improve sleep and reduce still area; continue taper per geriatric medicine - Seroquel p.r.n., and can alternate with olanzapine 2.5 mg - Maximize use of non pharmacological interventions to reduce delirium #19 Overweight Body Mass Index 25-29.9 Adult Recommend patient follow up primary care provider in the outpatient setting For any additional questions or concerns, please page the Trauma Service at [phone]. * Mickey Benton M.D. - 11/28/2023 2:52 AM CDT Orthopedic Service: OTS-1 Hospital Admission Day: 11/23/2023 Length of Stay: 5 Procedures: Surgery Information This Encounter Past Procedures (11/28/2022 to Today) Date Procedures Providers Loc / Dept 11/25/2023 OPEN REDUCTION INTERNAL FIXATION ACETABULUM. Naveed Higuera M.D.Markos, James R, M.D.Labott, Joshua R, M.D.Sherie Lozano M.D. RST ROMB OR SUBJECTIVE Mr. Grayson was seen and examined in his ICU room this morning. He is inconsistently interactive on exam but was able to grossly move left lower extremity. Drain outputs have been 0 and 10 in the last shift respectively with both downtrending. There was some leaking around his more lateral drain which has been reinforced with Tegaderm. His incisional VAC is holding suction with no output in the canister. OBJECTIVE VITALS Temperature: [36.5 ??C-37.1 ??C] 36.5 ??C Heart Rate: [66-114] 73 Resp Rate: [15-27] 18 Blood Pressure: (89-150)/(54-90) 115/54 SpO2: [85 %-99 %] 96 % Flow Rate (L/min): [4 L/min] 4 L/min Pulse Rate: [61-143] 77 I/O last 3 completed shifts: In: 840 [P.O.:480] Out: 3760 [Urine:3650; Drains:110] PHYSICAL EXAM General: follows commands inconsistently, confused Cardiac: Hemodynamically stable. Lungs: Non-labored respirations on room air, satting well. Left Lower Extremity: Surgical incision CDI. Left ilioinguinal incisional vac. Calf soft and non-tender. Neurovascularly intact with palpable pulses, brisk cap refill. Sensation intact grossly to light touch throughout dermatomes. Fires tib ant, gastroc, ehl, fhl spontaneously, though not to command Drain: two davol drains to suction Output by Drain (mL) 11/26/23 07 - 11/26/23 1900 11/26/23 190 - 11/27/23 0700 11/27/23 07 - 11/27/23 1900 11/27/23 190 - 11/28/23 0007 Closed/Suction Drain 1 Inferior;Midline Abdomen Accordion 10 Fr. 17.5 0 0 0 Closed/Suction Drain 2 Left;Lateral Hip Accordion 10 Fr. 200 100 10 0 LABS Recent Results (from the past 24 hour(s)) Phosphorus Inorganic Collection Time: 11/27/23 6:13 AM Result Value Phosphorus (Inorganic), S 1.4 (L) Magnesium Collection Time: 11/27/23 6:13 AM Result Value Magnesium, S 2.4 (H) Basic Metabolic Panel Collection Time: 11/27/23 6:13 AM Result Value Potassium, S 4.4 Sodium, S 139 Chloride, S 105 Bicarbonate, S 27 Anion Gap 7 BUN (Blood Urea Nitrogen), S 19 Creatinine 1.12 Estimated GFR (eGFR) 66 Calcium, Total, S 7.7 (L) Glucose, S 107 CBC without Differential Collection Time: 11/27/23 6:13 AM Result Value Hemoglobin 10.5 (L) Hematocrit 31.9 (L) Erythrocytes 3.52 (L) MCV 90.6 RBC Distrib Width 14.9 (H) Platelet Count 123 (L) Leukocytes 4.8 Calcium, Ionized Collection Time: 11/27/23 6:13 AM Result Value Calcium, Ionized, S 4.41 (L) pH for Ionized Calcium 7.46 CK (Creatine Kinase) Collection Time: 11/27/23 6:13 AM Result Value Creatine Kinase (CK), S 2232 (H) Basic Metabolic Panel Collection Time: 11/27/23 6:37 PM Result Value Potassium, P 3.9 Sodium, P 142 Chloride, P 104 Bicarbonate, P 27 Anion Gap, P 11 BUN (Blood Urea Nitrogen), P 21 Creatinine 0.99 Estimated GFR (eGFR) 77 Calcium, Total, P 7.8 (L) Glucose, P 120 Phosphorus Inorganic Collection Time: 11/27/23 6:37 PM Result Value Phosphorus (Inorganic), S 2.8 IMAGING DX Chest Portable 1 View Result Date: 11/25/2023 Impression: No change since 11/24/2023. Low lung volumes. Bibasilar atelectasis. Skeletal degenerative changes. Left rib fracture not well seen radiographically. Remainder negative. CT Head without IV Contrast Result Date: 11/24/2023 Impression: 1. 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 2. Punctate hyperdensity noted in the left frontal region on the prior study is again noted and possibly reflects a punctate cortical hemorrhage. 3. Mild asymmetric prominence of the extra-axial space over the left frontal convexity may reflect a small subdural effusion. ASSESSMENT / PLAN #1 s/p ORIF left associated both column acetabular fracture 11/[address] Higuera via limited ilioinguinal with ASIS osteotomy plus Stoppa approach --Activity: TTWB LLE. PT/OT to follow. --Antibiotics: Perioperative cefazolin x2 doses. --Blood: At the time of my exam he had some softer blood pressures but these were attributed to lack of oral intake and diuresis. He responded to fluids. Last hemoglobin 10.5. --Brace: none --Cultures/Path: None. --Diet: Per primary service. --Drains: 2 davol drains (drain output decreasing); iVAC to incisions --Dressing: Surgical dressing in place, C/D/I. Ivac in place. --VTE Prophylaxis: Mechanical prophylaxis with SCDs, early mobilization, and recommend subcutaneousheparin products --Pain: per primary --Bowel Regimen: Senna, Miralax, Bisacodyl enema prn --Urinary: Urinary catheter in place. --Imaging: Postop imaging completed --Code: Full --Dispo: Anticipate discharge to SNF From m-6pm Tuesday-Tuesday, please contact OTS-1 with any questions regarding this patient. If overnight (6 PM to 6 AM) or any time on weekends, please contact the Orthopedic Surgery house resident marine resource economist at [phone] * Destiney Bundy M.A., Juan.Cecily, Hugh, VINITA - 11/27/2023 12:44 PM CDT 11/27/23 1244 Reason Therapy Missed Reason Therapy Missed No visit this date The patient's RN reported patient had slowed oral management of pills and the AUTOMATIC LEHR OPERATOR reported the patient had retention of food in his mouth during breakfast. OT was unable to catch the patient with a meal today to do a full meal observation, however impaired motor planning and execution are impactinghis ability to safely manage his current dysphagia diet. Recommend downgrading to a Minced and Moist (MT5) diet and continuing Mildly thickened (MT2) liquids, pills one at a time with puree. * Serafin Ford M.D. - 11/27/2023 11:33 AM CDT SICU Progress Note PATIENT SUMMARY Mr. Grayson is an 83 year old male with no known medical history who presented on 11/22 following a fall from approximately 6 feet off a ladder onto his left side. He landed on his left side and hit his head. He is amnesic to the events. Per his there are concerns that he may have dementia, butdoes not see a primary care physician. [facility] but [facility] has [facility] a number of years. Trauma scans were performed and were notable for the injuries listed below. Injuries: - Small amount of layering blood products in the occipital horn of the left lateral ventricle - Small cortical hemorrhage versus focal subarachnoid hemorrhage anterior left frontal lobe - Left pelvic fractures with associated left retroperitoneal hematoma - Intramuscular hematomas involving the left gluteus and iliopsoas muscles - Nondisplaced left anterior sixth rib fracture Interval Events: - no acute events - reviewed with surgical intensive care unit multidisciplinary team and Dr. Navarrete - diuresis for isolated event of acute hypoxemia with resolution and appropriate urinary output response - continues to receive intermittent dosing of olanzapine for hyperactive delirium - electrolytes repleted OBJECTIVE I have reviewed the current vital sign data as applicable to this admission. PHYSICAL EXAM General appearance: no acute distress Neurologic: alert, oriented to person, disoriented to place HEENT: normocephalic, without obvious abnormality Chest: clear to auscultation anteriorly Heart: regular rate and rhythm, S1 and S2 normal, no murmur Abdomen: mildly tender to palpation in left lower quadrant, no ecchymosis, soft, non-distended Extremities: Left lower extremity placed in splint, palpable DP pulses in BLE DIAGNOSTICS I have reviewed relevant laboratory, imaging, and other diagnostics as applicable. ASSESSMENT / PLAN PLAN BY SYSTEMS: HEMODYNAMICS/CV: - HR: 80-120 intermittently; SBP: 100-150s; MAP: >70 - lactate: 1.6 (11/24) - ECHO: none on file - EKG: SR, PACs - troponin: 29 (25, 22) - home meds: none - current meds: Metoprolol 12.5 mg b.i.d. Plan: Provide hemodynamic support, increase metoprolol 25 mg b.i.d. for intermittent arrhythmia NEUROLOGIC: - GCS: 14, -1 for confusion; RASS: +1 - intermittent agitation correlates with straight catheterization required. - pain medications:tylenol, fentanyl, Dilaudid, lidocaine - olanzapine for intermittent agitation - ramelteon and Zyprexa for sleep - no focal neuro deficits noted - repeat CT imaging had 11/27/2023 with continued increase in punctate hemorrhage is seen, we will continue to coordinate with neurologic surgery for appropriate timing of DVT prophylaxis initiation versus serial CT head Plan: Repeat head CT today per HINA. Okay to start DVT Px after if stable. PULMONARY: - Nondisplaced left anterior sixth rib fracture - Saturating well on 4 L NC - CXR: None - Rib fracture numbers on 11/23: NIF -60, VC 2.5 L of predicted 4 L during the day Plan: Aggressive pulmonary hygiene. RENAL: - I/O: + 9.2 L since admission, -1.5L for the day - UOP: 2.4 L - mIVF: Discontinue - Rosado catheter removed to reduce agitation - AM BMP pending, replete electrolytes as needed - electrolytes repleted - repeat diuresis, Lasix 20 mg IV Plan: Repeat diuresis, slightly upward trending creatinine subsequently include continue to monitorfor indications of acute renal failure ID: - Tmax: 37.4 - WBC: 4.8 - antibiotics: none indicated - cultures: none Plan: No acute infectious concerns at this time HEME: - Hgb: 10.5 - Plts: 123 Holding DVT prophylaxis currently in setting of hematoma as well as SAH. Plan to restart pending neurosurgery recommendations VASCULAR ACCESS: - PIV x 2 GI/NUTRITION: - diet: Dysphagia diet - drains: Pelvic per Orthopedic surgery ENDOCRINE: - glucose: Appropriate - Hb A1c 5.4 - insulin: none - steroids: none Plan: Monitor glucose with metabolic profile MUSCULOSKELETAL: - PMR consulted -POD-1 from ORIF of L acetabular fracture - activity: TTWB LLE Plan: TTWB LLE for 12 weeks per OTS SKIN: - repositioning per nursing PROPHYLAXIS: - DVT: held in setting of intracranial bleed as well as RP hematoma, plan pending CT head today - GI: none CODE STATUS: - Full code - Surrogate: Ramon DISPOSITION: - SICU Associated attestation - Jason Navarrete M.D. - 11/27/2023 1:29 PM CDT Patient seen and examined, discussed on morning multidisciplinary SICU rounds with the SICU team. Chart notes, laboratory, and radiographic data reviewed. I have reviewed and agree with Dr. Ford' documentation from today's date as attested herein, including his assessment and plan unless noted otherwise below. Patient continues to have delirium, which is hyperactive and appears to be somewhat worse than his baseline at home. He has been having episodes of belligerence towards the nursing staff, including pinching and biting. He is receiving intermittent olanzapine. During my visit today, the patient is calm and pleasant, sitting up in his chair. Head CT: Since 11/26/2023, increased conspicuity of several punctate foci of intraparenchymal hemorrhage in the superior left frontal lobe (4 / 210, 206, 197). Additional increased hyperdense punctate foci about the right internal capsule, superimposed. Given this, his pelvic fracture/fixation, blood loss and resuscitation, we will consider IVC filter if it appears DVT chemoprophylaxis will not be feasible in the near term. His CXR from yesterday showed increasing atelectasis and some small bowel dilatation visible in hisLUQ. We will obtain a dedicated abdominal XR today to re-assess. He will require some aggressive pulmonary toilet; consider CPAP use as well. Remainder of plan and prophylactic measures as per Dr. Ford' documentation. * Rae Coello M.D. - 11/27/2023 11:02 AM CDT Geriatrics Consult - Progress Note SUBJECTIVE Carlos Alberto was agitated yesterday and fidgeting with lines, drains, tubes as could be predicted. He was placed in soft mitts and received several doses of olanzapine (1630, 2240). Sleep quality overnight was intermittent and maybe total of 3 hours. Oxygen needs went up later in the day and he was given 20 mg lasix with good results. He remains on4 L oxygen, net negative 1.5 L fluids (remains fluid positive since admission) Nursing indicates he doesn't seem to be experiencing much pain, and he received just 1.5 mg oral hydromorphone in past 24 hours. Last BM Date: 11/26/23 [place] Stool Chart: Type 7: Watery, no solid pieces I have reviewed the current medication list. OBJECTIVE VITAL SIGNS Temperature: [36.8 ??C-37.4 ??C] 36.8 ??C Heart Rate: [66-116] 83 Resp Rate: [15-30] 21 Blood Pressure: (90-168)/(49-136) 104/62 Arterial Line BP: (123-271)/(63-268) 123/63 SpO2: [88 %-99 %] 95 % Flow Rate (L/min): [2 L/min-6 L/min] 4 L/min Pulse Rate: [61-121] 69 PHYSICAL EXAM General: Tired but awake, sitting up in bed, no distress. ENT: Hearing impaired. I assisted with donning hearing aids which improved communication. Lungs: Normal rate and effort. On 4 L oxygen. Heart: Regular rate and rhythm. Trace edema. Abdomen: Bowel sounds normoactive, mild diffuse tenderness. Neuro: Follows commands. GCS 15. Mental: Oriented to person, not oriented to place (answers yes on multiple choice when asked if we are in a hoahaoism and yes to hospital). Unable to register new information despite teaching. Able to attend to simple conversation. Fluctuations in level of arousal noted in past 24 hours. was concerned that cognition was worse than baseline. RASS -1. CAM positive for mild acute delirium. It is evident he has chronic dementia, and suspect that most of his cognitive deficits are chronic not acute. DIAGNOSTICS I have independently reviewed diagnostics. Hemoglobin stable 10.5 WBC normal Sodium 139 Creatinine 1.12 Phos 1.4 ASSESSMENT / PLAN Mr. Grayson is hospitalized on [facility] Trauma and General Surgery for evaluation and management of: Fracture Ilium Closed Initial Left (HCC) #1 History Of Falling #2 Subarachnoid Hematoma Trauma Without Loss Of Consciousness Subsequent #3 Contusion Scalp Initial #4 Fracture Rib One Open Initial Left #5 Contusion Other Intra Abdominal Organs Initial #6 Anemia Posthemorrhagic Acute (Blood Loss Anemia) #7 Fracture Acetabulum Other Closed Initial Left (HCC) #8 Fracture Pelvis Multiple Closed With Stable Disruption Pelvis Ring Initial (HCC) #9 Fracture Ilium Closed Initial Left (HCC) #10 Encephalopathy Metabolic #11 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 ([facility]) #12 Decline Cognitive #13 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 Per collateral history from Mikayla, Mr. Grayson has known chronic cognitive impairment with significant short term memory impairments and inability to manage his own finances independently, but he otherwise is capable of managing most IADLs and ADLs. He has a strong family history of dementia with parents and all siblings developing dementia in late life. His pattern likely represents an etiology of Alzheimers (FAST 4) given his family history and prominent amnestic component relative to executive function. He was admitted following a fall off his ladder while attempting to repair a leak on his roof. Injuries sustained include intraventricular hemorrhage, SAH, and left pelvis fracture with complex involvement of the acetabulum (s/p ORIF on 11/24). Hospital course complicated by acute anemia, hypotension (resolved), hypoxic respiratory failure (s/p blood product and crystalloid resuscitation), and acute delirium. Overall he is improving. RECOMMENDATIONS: Continue aggressive nonpharmacologic delirium strategies to manage his delirium. Appreciate nursing's effort to ensure that his hearing aids are charged at night and worn during the day, and efforts to get him out of bed and find something positive to do with his hands (he likes to finesse). Recommend continuing ramelteon, increase suvorexant to 10 mg until circadian rhythm improves. We can help outline a taper in the coming days as we see improvement. Continue olanzapine 2.5 mg prn for agitated behaviors that are not responsive to nonpharmacologicalinterventions. Continue tamsulosin (new med) and I/O cath prn for urinary retention. Agree with aggressive repletion of hypophosphatemia and recommend close ongoing monitoring Consider another dose of lasix 20 IV to coax gentle diuresis today. He remains net + 9 L since admission but its very appropriate to go slowly with changes in fluid status as he has demonstrated thathe does not tolerate rapid shifts well. Hopeful for transfer to the general care floor soon. I personally spent a total of 50 minutes providing and coordinating care today. Thank you for the opportunity to care for this patient. We will continue to follow with you. Pleasepage the Geriatrics Consult Service at [phone] with any questions or concerns. * Naveed Dan P.A.-C. - 11/27/2023 8:31 AM CDT Images from the original note were not included. SUBJECTIVE Mr. Grayson was seen and examined by the Trauma team in his room this morning. Patient is pleasantly confused this morning, in restraints with mitts in place. Patient's AUTOMATIC LEHR OPERATOR overnight states that there have been no complications overnight, but continues to attempt to pull at things. Patient denies any pain at this time, poor p.o. intake, adequate UOP, decreased serosanguineous drain output, for bowel movements over the last 24 hours. Patient continues to be afebrile, hemodynamically stable at this time, not requiring any further blood product resuscitation over the last 24 hours. OBJECTIVE VITAL SIGNS Blood Pressure: 129/70, Heart Rate: 103, Pulse Rate: 85, Resp Rate: 23, Temperature: 36.8 ??C, SpO2: 94 % I/O last 3 completed shifts: In: 1510 [P.O.:600] Out: 3212.5 [Urine:2895; Drains:317.5] Vitals and nursing note reviewed. Constitutional General: He is not in acute distress. Appearance: He is not toxic-appearing. Cardiovascular Pulses: Normal pulses. Pulmonary Effort: Pulmonary effort is normal. Abdominal General: There is distension. Palpations: Abdomen is soft. Tenderness: There is no abdominal tenderness. Skin General: Skin is warm. Neurological Mental Status: He is alert. He is disoriented. DIAGNOSTICS I have reviewed labs, ECG, xray, CT, diagnostics, and surgical note . CT Head without IV Contrast Result Date: 11/27/2023 Impression: 1. Slightly increased number and conspicuity of punctate foci of intraparenchymal hemorrhage, for example in the superior left frontal lobe and right internal capsule. No appreciable masseffect. 2. Decreased layering blood products within the left lateral ventricle. DX Chest Portable 1 View Result Date: 11/26/2023 Impression: Since November 25, 2023, increased bibasilar airspace opacities. In conjunction with the similarly decreased lung volumes this is favored to represent worsening atelectasis. Cannot rule out aninfectious/inflammatory etiology. Small bilateral pleural effusions. Otherwise no significant changes. The heart borders are obscured. Scattered degenerative changes of the skeleton. Lab results last 24 hours: Recent Results (from the past 24 hour(s)) Blood Gas with Coox, Arterial Collection Time: 11/26/23 5:28 PM Result Value pO2 77 (L) pCO2 36 pH 7.47 (H) Base Excess 2 HCO3 26 Hemoglobin, B 11.0 (L) O2Hb 96.5 COHb 2.1 MetHb <1.0 CtO2 14.9 (L) Arterial Sample Site R-Radial Patient Status Collection Time: 11/26/23 5:28 PM Result Value O2 Flow 6.0 Device NC Spont. breaths/min 18 Basic Metabolic Panel Collection Time: 11/26/23 5:29 PM Result Value Potassium, P 4.7 Sodium, P 138 Chloride, P 106 Bicarbonate, P 25 Anion Gap, P 7 BUN (Blood Urea Nitrogen), P 20 Creatinine 0.93 Estimated GFR (eGFR) 82 Calcium, Total, P 8.3 (L) Glucose, P 128 Phosphorus Inorganic Collection Time: 11/27/23 6:13 AM Result Value Phosphorus (Inorganic), S 1.4 (L) Magnesium Collection Time: 11/27/23 6:13 AM Result Value Magnesium, S 2.4 (H) Basic Metabolic Panel Collection Time: 11/27/23 6:13 AM Result Value Potassium, S 4.4 Sodium, S 139 Chloride, S 105 Bicarbonate, S 27 Anion Gap 7 BUN (Blood Urea Nitrogen), S 19 Creatinine 1.12 Estimated GFR (eGFR) 66 Calcium, Total, S 7.7 (L) Glucose, S 107 CBC without Differential Collection Time: 11/27/23 6:13 AM Result Value Hemoglobin 10.5 (L) Hematocrit 31.9 (L) Erythrocytes 3.52 (L) MCV 90.6 RBC Distrib Width 14.9 (H) Platelet Count 123 (L) Leukocytes 4.8 Calcium, Ionized Collection Time: 11/27/23 6:13 AM Result Value Calcium, Ionized, S 4.41 (L) pH for Ionized Calcium 7.46 CK (Creatine Kinase) Collection Time: 11/27/23 6:13 AM Result Value Creatine Kinase (CK), S 2232 (H) ASSESSMENT / PLAN Today's Plan: - repeat head CT: slight increased in punctate foci of intraparenchymal hemorrhage - f/u with NSGY/ortho regarding their input for IVC filter placement (4d w/o DVT prophylaxis) - fluid overloaded; lasix 20mg once, f/u evening BMP - continued cardiac arrhythmia; SVT vs Afib; seems to correlate w/agitation. Initiated and uptitrated to metoprolol 25mg BID; continue to monitor - for agitation, continue olanzapine 2.5mg; continues to respond adequately - continue nonpharmacologic delirium prophylaxis per geriatric medicine recommendations - f/u CXR, AXR New Consults Geriatric Medicine Neurosurgery C OTS 1 Diet: Adult Diet Dysphagia; Mildly Thick (MT2); Soft and Bite-Sized (SB6) Activity: Up with assistance; LLE TTWB VTE Prophylaxis: holding GI Prophylaxis: not indicated Bowel Regimen: miralax, dulcolax, senokot Pain: tylenol, triple cream, lidocaine patch,fentanyl, dilaudid Antibiotics: completion of perioperative abx Disposition: TBD #1 History Of Falling - TTS: 11/24 - SAS: 11/23 - PMR TBI, PT/OT consulted #2 Subarachnoid Hematoma Trauma Without Loss Of Consciousness Subsequent #3 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) #3 Contusion Scalp Initial - Neurosurgery Chief C consulted and following - 11/[address]: interval increase in left lateral ventricle hemorrhage - 11/[address]: Slight interval increase in number punctuate foci intraparenchymal hemorrhage - continue to hold DVT prophylaxis 2/2 worsening serial head CTs - follow up with Neurosurgery regarding thoughts on IVC filter placement #4 Fracture Rib One Open Initial Left - traumatic rib fracture protocol - aggressive pulmonary hygiene - multimodal pain regimen #5 Anemia Posthemorrhagic Acute (Blood Loss Anemia) #6 Postprocedural Hemorrhagic Shock Initial - 11/24 status post OR for LLE fixation, patient received: 4u pRBC, 2u FFP, 4u plts 2/2 hemorrhagic shock - TEG has since been normalized. - hgb 10.5 (11.0/8.6/11.6) - patient has not received any blood products over the last 24 hours. Continue to monitor and transfuse as indicated - she is if patient is symptomatic and/or hgb < 7 #7 Contusion Other Intra Abdominal Organs Initial #8 Fracture Acetabulum Other Closed Initial Left (HCC) #9 Fracture Pelvis Multiple Closed With Stable Disruption Pelvis Ring Initial (HCC) #10 Fracture Ilium Closed Initial Left (HCC) - OTS-1 consulted and following - 11/24 OR L-acetabular fx fixation - LLE: TTWB - continue working w/ PT and OT #11 Delirium - Geriatric Medicine consulted and following - Recommended initiation of ramelteon and suvorexant to help improve sleep and reduce still area; continue taper per geriatric medicine - Seroquel p.r.n., and can alternate with olanzapine 2.5 mg - Maximize use of non pharmacological interventions to reduce delirium For any additional questions or concerns, please page the Trauma Service at [phone]. * Mickey Benton M.D. - 11/27/2023 6:27 AM CDT Orthopedic Service: OTS-1 Hospital Admission Day: 11/23/2023 Length of Stay: 4 Procedures: Surgery Information This Encounter Past Procedures (11/27/2022 to Today) Date Procedures Providers Loc / Dept 11/25/2023 OPEN REDUCTION INTERNAL FIXATION ACETABULUM. Naveed Higuera M.D.Markos, James R, M.D.Labott, Joshua R, M.D.Hidden, Krystin A, M.D. RST ROMB OR SUBJECTIVE Mr. Grayson was seen and examined in his ICU room this morning. He is inconsistently interactive on exam but was able to demonstrate active range of motion and endorses sensation in the left lower extremity. Drain outputs have been 0 and 100 in the last shift respectively with both downtrending. There was some leaking around his more lateral drain which has been reinforced with Tegaderm. His incisional VAC is holding suction with no output in the canister. OBJECTIVE VITALS Temperature: [36.4 ??C-37.4 ??C] 36.8 ??C Heart Rate: [66-126] 103 Resp Rate: [15-30] 23 Blood Pressure: (90-168)/(49-136) 129/70 Arterial Line BP: (123-271)/(59-268) 123/63 SpO2: [88 %-99 %] 94 % Flow Rate (L/min): [2 L/min-6 L/min] 4 L/min Pulse Rate: [61-126] 85 I/O last 3 completed shifts: In: 1150 [P.O.:600] Out: 2712.5 [Urine:2395; Drains:317.5] PHYSICAL EXAM General: follows commands inconsistently, confused Cardiac: Hemodynamically stable. Lungs: Non-labored respirations on room air, satting well. Left Lower Extremity: Surgical incision CDI. Left ilioinguinal incisional vac. Calf soft and non-tender. Neurovascularly intact with palpable pulses, brisk cap refill. Sensation intact grossly to light touch throughout dermatomes. Fires tib ant, gastroc, ehl, fhl spontaneously, though not to command Drain: two davol drains to suction Output by Drain (mL) 11/25/23 07 - 11/25/23189911/25/231900 - 11/26/23 0711/26/23 07 - 11/26/23 1900 11/26/23 190 - 11/27/23 0711/27/23 07 - 11/27/23 0757 Closed/Suction Drain 1 Inferior;Midline Abdomen Accordion 10 Fr. 75 95 17.5 0 Closed/Suction Drain 2 Left;Lateral Hip Accordion 10 Fr. 125 335 200 100 LABS Recent Results (from the past 24 hour(s)) Calcium, Ionized Collection Time: 11/26/23 11:21 AM Result Value Calcium, Ionized, B 4.56 (L) pH Collection Time: 11/26/23 11:21 AM Result Value pH 7.45 CBC without Differential Collection Time: 11/26/23 2:01 PM Result Value Hemoglobin 11.0 (L) Hematocrit 32.9 (L) Erythrocytes 3.69 (L) MCV 89.2 RBC Distrib Width 14.8 (H) Platelet Count 110 (L) Leukocytes 6.5 Blood Gas with Coox, Arterial Collection Time: 11/26/23 5:28 PM Result Value pO2 77 (L) pCO2 36 pH 7.47 (H) Base Excess 2 HCO3 26 Hemoglobin, B 11.0 (L) O2Hb 96.5 COHb 2.1 MetHb <1.0 CtO2 14.9 (L) Arterial Sample Site R-Radial Patient Status Collection Time: 11/26/23 5:28 PM Result Value O2 Flow 6.0 Device NC Spont. breaths/min 18 Basic Metabolic Panel Collection Time: 11/26/23 5:29 PM Result Value Potassium, P 4.7 Sodium, P 138 Chloride, P 106 Bicarbonate, P 25 Anion Gap, P 7 BUN (Blood Urea Nitrogen), P 20 Creatinine 0.93 Estimated GFR (eGFR) 82 Calcium, Total, P 8.3 (L) Glucose, P 128 Phosphorus Inorganic Collection Time: 11/27/23 6:13 AM Result Value Phosphorus (Inorganic), S 1.4 (L) Magnesium Collection Time: 11/27/23 6:13 AM Result Value Magnesium, S 2.4 (H) Basic Metabolic Panel Collection Time: 11/27/23 6:13 AM Result Value Potassium, S 4.4 Sodium, S 139 Chloride, S 105 Bicarbonate, S 27 Anion Gap 7 BUN (Blood Urea Nitrogen), S 19 Creatinine 1.12 Estimated GFR (eGFR) 66 Calcium, Total, S 7.7 (L) Glucose, S 107 CBC without Differential Collection Time: 11/27/23 6:13 AM Result Value Hemoglobin 10.5 (L) Hematocrit 31.9 (L) Erythrocytes 3.52 (L) MCV 90.6 RBC Distrib Width 14.9 (H) Platelet Count 123 (L) Leukocytes 4.8 Calcium, Ionized Collection Time: 11/27/23 6:13 AM Result Value Calcium, Ionized, S 4.41 (L) pH for Ionized Calcium 7.46 CK (Creatine Kinase) Collection Time: 11/27/23 6:13 AM Result Value Creatine Kinase (CK), S 2232 (H) IMAGING DX Chest Portable 1 View Result Date: 11/25/2023 Impression: No change since 11/24/2023. Low lung volumes. Bibasilar atelectasis. Skeletal degenerative changes. Left rib fracture not well seen radiographically. Remainder negative. CT Head without IV Contrast Result Date: 11/24/2023 Impression: 1. 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 2. Punctate hyperdensity noted in the left frontal region on the prior study is again noted and possibly reflects a punctate cortical hemorrhage. 3. Mild asymmetric prominence of the extra-axial space over the left frontal convexity may reflect a small subdural effusion. ASSESSMENT / PLAN #1 s/p ORIF left associated both column acetabular fracture 11/[address] Higuera via limited ilioinguinal with ASIS osteotomy plus Stoppa approach \ --Activity: TTWB LLE. PT/OT to follow. --Antibiotics: Perioperative cefazolin x2 doses. --Blood: Hemodynamically stable; currently asymptomatic. --Brace: none --Cultures/Path: None. --Diet: Per primary service. --Drains: 2 davol drains (drain when output decreasing and drain to output has remained high but isdowntrending now); iVAC to incisions --Dressing: Surgical dressing in place, C/D/I. Ivac in place. --VTE Prophylaxis: Mechanical prophylaxis with SCDs, early mobilization, and recommend subcutaneousheparin products --Pain: per primary --Bowel Regimen: Senna, Miralax, Bisacodyl enema prn --Urinary: Urinary catheter in place. --Imaging: Postop imaging completed --Code: Full --Dispo: Anticipate discharge to SNF From 6am-6pm Tuesday-Tuesday, please contact OTS-1 with any questions regarding this patient. If overnight (6 PM to 6 AM) or any time on weekends, please contact the Orthopedic Surgery house resident marine resource economist at [phone] * Rae Coello M.D. - 11/26/2023 12:19 PM CDT Geriatrics Consult - Progress Note SUBJECTIVE Overnight he had hypotension for which he was placed on norepinephrine and and also received massive transfusion protocol for anemia. At the time of my bedside evaluation around 9am, his hemodynamics have stabilized and he remains off pressors for several hours. Reports a little pain in his leg. Unaware of where he is or why he is here. Alert and laying in bed. 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 OBJECTIVE VITAL SIGNS Temperature: [35.9 ??C-36.9 ??C] 36.4 ??C Heart Rate: [58-129] 126 Resp Rate: [13-28] 23 Blood Pressure: (78-157)/(39-91) 157/91 Arterial Line BP: (81-181)/(27-79) 181/79 SpO2: [83 %-100 %] 96 % Flow Rate (L/min): [2 L/min-4 L/min] 2 L/min Pulse Rate: [54-129] 126 PHYSICAL EXAM General: Alert, laying in bed, no apparent distress. ENT: Hearing impaired. Hearing aids are not yet in place today. He pulled off his nasal cannula oxygen and is saturating 88-90% on room air. Lungs: Normal rate and effort. Clear to auscultation anteriorly. Heart: Regular rate and rhythm. Minimal extremity edema. Abdomen: Bowel sounds normoactive, nontender. Neuro: Follows commands. GCS 15. Mental: Oriented to person but not to place (hotel in reads landing) or reason for hospitalization. Able to attend to simple conversation. No fluctuations in level of arousal. No signs of disorganized thinking. RASS 0. CAM negative for acute delirium at this time. Suspect dementia and that cognition is near his baseline. DIAGNOSTICS I have independently reviewed diagnostics. Hemoglobin 8.6 (preop was 8.4 rodo to 11.6 and back down to 8.6 but also with significant crystalloid administration) ASSESSMENT / PLAN Mr. Grayson is hospitalized on [facility] Trauma and General Surgery for evaluation and management of: Fracture Ilium Closed Initial Left (HCC) #1 History Of Falling #2 Subarachnoid Hematoma Trauma Without Loss Of Consciousness Subsequent #3 Contusion Scalp Initial #4 Fracture Rib One Open Initial Left #5 Contusion Other Intra Abdominal Organs Initial #6 Anemia Posthemorrhagic Acute (Blood Loss Anemia) #7 Fracture Acetabulum Other Closed Initial Left (HCC) #8 Fracture Pelvis Multiple Closed With Stable Disruption Pelvis Ring Initial (HCC) #9 Fracture Ilium Closed Initial Left (HCC) #10 Encephalopathy Metabolic #11 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 Per collateral history from Mikayla, Mr. Grayson has known chronic cognitive impairment with significant short term memory impairments and inability to manage his own finances independently, but he otherwise is capable of managing most IADLs and ADLs. He has a strong family history of dementia with parents and all siblings developing dementia in late life. His pattern likely represents an etiology of Alzheimers given his family history and prominent amnestic component relative to executive function. He was admitted following a fall off his ladder while attempting to repair a leak on his roof. Injuries sustained include intraventricular hemorrhage, SAH, and left pelvis fracture with complex involvement of the acetabulum (s/p ORIF on 11/24). RECOMMENDATIONS: I wholeheartedly agree with the primary team's plan for today to allow passive re-equilibration of homeostasis in volume status and hemodynamics Suspect that anemia is related to perioperative blood loss, which may have successful hemostasis now; if hemoglobin trend suggests worsening anemia, consider obtaining coags and evaluation for hemolysis in addition to blood loss Appreciate nursing's plan to attempt pivot of bed to chair; getting out of bed will be good for both his cognition and respiratory physiology Please make sure his hearing aids are donned and that the ambient lighting of the room is maximizedduring the day Wean oxygen as tolerated Consider removing his Rosado to avoid a traumatic removal, and manage with bladder scans and I/O caths prn Recommend creative ideas to identify purposeful activities for him to use his hands or fidget with items in a productive way that is not harmful, as he likes to finesse with his hands (and has pulled at lines previously) Continue ramelteon (given 11/24) and suvorexant (appropriately held 11/24) for now; will outline taper in coming days I personally spent a total of 50 minutes providing and coordinating care today. Thank you for the opportunity to care for this patient. We will continue to follow with you. Pleasepage the Geriatrics Consult Service at [phone] with any questions or concerns. * Naveed Dan P.A.-C. - 11/26/2023 12:16 PM CDT SUBJECTIVE Mr. Grayson was seen and examined by the Trauma team in his room this morning. He reports no acuteissues overnight. Patient is alert and oriented to person, and aware of the year. Patient went to the OR yesterday with OTS 1 for L acetabular fixation and experienced 2L blood loss documented. Upon returning to SICU, patient was in hemorrhagic shock and required intensive resuscitation with products including: pRBC, plts, FFP. Since then, TEG has been normalized this AM with uptick in hgb. Patient denies any pain at this time, denies all pertinent ROS. Patient is afebrile and not hemodynamically stable at this time. Patient to remain in SICU for hemorrhagic shock resuscitation/management until deemed more stable OBJECTIVE VITAL SIGNS Blood Pressure: (!) 157/91, Heart Rate: (!) 126, Pulse Rate: (!) 126, Resp Rate: 23, Temperature: 36.4 ??C, SpO2: 96 % I/O last 3 completed shifts: In: 39407.4 Out: 3846.5 [Urine:1011; Drains:737.5; Blood:2098] Vitals and nursing note reviewed. Constitutional General: He is not in acute distress. Appearance: He is not toxic-appearing. Comments: Pleasantly delirious, confused. Alert and oriented to person Cardiovascular Pulses: Normal pulses. Pulmonary Effort: Pulmonary effort is normal. No respiratory distress. Abdominal General: There is no distension. Palpations: Abdomen is soft. Tenderness: There is no abdominal tenderness. Musculoskeletal Comments: LLE: non-TTP on palpation Skin General: Skin is warm. Neurological Mental Status: He is alert. He is disoriented. DIAGNOSTICS I have reviewed labs, xray, CT, diagnostics, and surgical note . CT Head without IV Contrast Result Date: 11/26/2023 Impression: 1. Possible new punctate focus of intraparenchymal hemorrhage in the superior left frontal lobe. No other new intracranial hemorrhage. 2. Slightly decreased intraventricular hemorrhage inthe left lateral ventricle. CT Abdomen Pelvis with IV Contrast Result Date: 11/26/2023 Impression: 1. Focal hyperdensity along the posterior left pelvic sidewall likely represents beam hardening artifact rather than active hemorrhage. If there is clinical concern for active hemorrhage,consider short-term follow-up CT. 2. Plate and screw fixation across the complex left pelvic fractures with significantly improved alignment. 3. Significantly decreased small amount of scattered blood products in the peritoneum and retroperitoneum. DX Pelvis 3+ Views Result Date: 11/25/2023 Impression: Negative for postoperative purposes. Surgical hardware is intact without radiographic evidence of failure. Pelvic surgical drain. Lab results last 24 hours: Recent Results (from the past 24 hour(s)) Blood Gas with Coox, Arterial Collection Time: 11/25/23 1:31 PM Result Value pO2 162 (H) pCO2 42 pH 7.32 (L) Base Excess -4 (L) HCO3 22 Hemoglobin, B 8.5 (L) O2Hb 97.5 COHb 1.7 MetHb 1.1 CtO2 12.1 (L) Calcium, Ionized Collection Time: 11/25/23 1:31 PM Result Value Calcium, Ionized, B 4.34 (L) Sodium, B Collection Time: 11/25/23 1:31 PM Result Value Sodium, B 141 Potassium, Blood Collection Time: 11/25/23 1:31 PM Result Value Potassium, B 3.7 Glucose, Whole Blood Collection Time: 11/25/23 1:31 PM Result Value Glucose 165 (H) Patient Status Collection Time: 11/25/23 1:31 PM Result Value Temperature 35.7 FIO2 0.50 Basic Metabolic Panel Collection Time: 11/25/23 3:30 PM Result Value Potassium, P 4.3 Sodium, P 141 Chloride, P 108 (H) Bicarbonate, P 21 (L) Anion Gap, P 12 BUN (Blood Urea Nitrogen), P 22 Creatinine 0.95 Estimated GFR (eGFR) 80 Calcium, Total, P 7.7 (L) Glucose, P 189 (H) CBC without Differential Collection Time: 11/25/23 3:30 PM Result Value Hemoglobin 9.3 (L) Hematocrit 28.7 (L) Erythrocytes 3.14 (L) MCV 91.4 RBC Distrib Width 14.7 (H) Platelet Count 55 (L) Leukocytes 7.9 Troponin T, Baseline with 2 Hour/6 Hour Reflex Biomarker Panel Collection Time: 11/25/23 3:30 PM Result Value Troponin T, Baseline, 5th gen 32 (H) Magnesium Collection Time: 11/25/23 3:31 PM Result Value Magnesium, S 2.1 Phosphorus Inorganic Collection Time: 11/25/23 3:31 PM Result Value Phosphorus (Inorganic), S 3.8 Calcium, Ionized Collection Time: 11/25/23 3:32 PM Result Value Calcium, Ionized, B 4.60 (L) pH Collection Time: 11/25/23 3:32 PM Result Value pH 7.32 (L) Troponin T, 2 Hour with 6 Hour Reflex, 5th Gen Collection Time: 11/25/23 5:38 PM Result Value Troponin T, 2 hr, 5th gen 32 (H) 2H Delta 0 2H Delta Interp Not Changing Thromboelastograph, Kaolin, Blood Collection Time: 11/25/23 9:04 PM Result Value R, Kaolin, TEG 6.2 K, Kaolin, TEG 2.8 (H) Angle, Kaolin, TEG 51.8 (L) MA, Kaolin, TEG 55.2 (L) Ly30, Kaolin, TEG 0.4 CBC without Differential Collection Time: 11/25/23 9:05 PM Result Value Hemoglobin 7.7 (L) Hematocrit 23.2 (L) Erythrocytes 2.59 (L) MCV 89.6 RBC Distrib Width 14.7 (H) Platelet Count 55 (L) Leukocytes 8.4 Basic Metabolic Panel Collection Time: 11/25/23 9:05 PM Result Value Potassium, P 4.2 Sodium, P 140 Chloride, P 107 Bicarbonate, P 24 Anion Gap, P 9 BUN (Blood Urea Nitrogen), P 24 Creatinine 0.96 Estimated GFR (eGFR) 79 Calcium, Total, P 7.3 (L) Glucose, P 175 (H) Lactate Collection Time: 11/25/23 9:05 PM Result Value Lactate, P 1.6 Blood Gas with Coox, Arterial Collection Time: 11/25/23 9:58 PM Result Value pO2 100 pCO2 37 pH 7.39 Base Excess -3 (L) HCO3 22 Hemoglobin, B 10.6 (L) O2Hb 97.2 COHb 2.0 MetHb <1.0 CtO2 14.7 (L) Arterial Sample Site Art Line Patient Status Collection Time: 11/25/23 9:58 PM Result Value O2 Flow 4.0 Device NC Spont. breaths/min 15 CBC without Differential Collection Time: 11/25/23 11:29 PM Result Value Hemoglobin 11.6 (L) Hematocrit 33.8 (L) Erythrocytes 3.78 (L) MCV 89.4 RBC Distrib Width 14.7 (H) Platelet Count 51 (L) Leukocytes 8.6 Thromboelastograph, Kaolin, Blood Collection Time: 11/26/23 7:45 AM Result Value R, Kaolin, TEG 6.5 K, Kaolin, TEG 1.7 Angle, Kaolin, TEG 66.8 MA, Kaolin, TEG 65.1 Ly30, Kaolin, TEG 0.8 CBC without Differential Collection Time: 11/26/23 7:48 AM Result Value Hemoglobin 8.6 (L) Hematocrit 25.8 (L) Erythrocytes 2.88 (L) MCV 89.6 RBC Distrib Width 15.0 (H) Platelet Count 92 (L) Leukocytes 5.7 Basic Metabolic Panel Collection Time: 11/26/23 7:48 AM Result Value Potassium, S 3.2 (L) Sodium, S 142 Chloride, S 115 (H) Bicarbonate, S 19 (L) Anion Gap 8 BUN (Blood Urea Nitrogen), S 17 Creatinine 0.79 Estimated GFR (eGFR) 89 Calcium, Total, S 5.9 (Crit L) Glucose, S 114 *Note: Due to a large number of results and/or encounters for the requested time period, some results have not been displayed. A complete set of results can be found in Results Review. ASSESSMENT / PLAN Today's Plan: - continue to monitor and replete blood products as needed for hemorrhagic shock - pt received 3 pRBC, 4 plts, 2 FFP; normal TEG - CT head: possible new punctate left superior frontal lobe hemorrhage. 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) #3 Contusion Scalp Initial - Neurosurgery Chief C consulted and following - 11/[address]: interval increase in left lateral ventricle hemorrhage - holding DVT prophylaxis at this time - repeat head CT 11/25 - Interval increase in intracranial bleed, so continue to hold chemical DVT prophylaxis - No other interventions necessary at this time #4 Fracture Rib One Open Initial Left - traumatic rib fracture protocol - aggressive pulmonary hygiene - multimodal pain regimen #5 Anemia Posthemorrhagic Acute (Blood Loss Anemia) #6 Postprocedural Hemorrhagic Shock Initial - 11/24 status post OR for LLE fixation, patient received: 4u pRBC, 2u FFP, 4u plts 2/2 hemorrhagic shock - TEG has since been normalized. - hgb 8.6 (11.6/7.7/9.3) #7 Contusion Other Intra Abdominal Organs Initial #8 Fracture Acetabulum Other Closed Initial Left (HCC) #9 Fracture Pelvis Multiple Closed With Stable Disruption Pelvis Ring Initial (HCC) #10 Fracture Ilium Closed Initial Left (HCC) - OTS-1 consulted and following - 11/24 OR L-acetabular fx fixation - LLE: TTWB - continue working w/ PT and OT #11 Delirium - Geriatric Medicine consulted and following - Recommended initiation of ramelteon and suvorexant to help improve sleep and reduce still area; continue taper per geriatric medicine - Seroquel p.r.n., and can alternate with olanzapine 2.5 mg - Maximize use of non pharmacological interventions to reduce delirium All cares per the Surgical ICU at this time. They can be reached at pager #[phone]. For any additional questions or concerns, please page the Trauma Service at [phone]. * Bella Torrez M.D. - 11/26/2023 6:21 AM CDT Orthopedic Service: OTS-1 Hospital Admission Day: 11/23/2023 Length of Stay: 3 Procedures: Surgery Information This Encounter Past Procedures (11/26/2022 to Today) Date Procedures Providers Loc / Dept 11/25/2023 OPEN REDUCTION INTERNAL FIXATION ACETABULUM. Naveed Higuera M.D.Markos, James R, M.D.Labott, Joshua R, M.D.Sherie Lozano M.D. RST ROMB OR SUBJECTIVE Mr. Grayson was examined in his room this AM prior to transport to [place]. His pain is well-controlled. He demonstrates an intact neurovascular exam of the left lower extremity grossly but participationis limited due to his neurocognitive status. NAEON. Drains with 170 and 460 cc SS output overnight,0 cc NPWT output. OBJECTIVE VITALS Temperature: [35.9 ??C-36.8 ??C] 36.8 ??C Heart Rate: [58-111] 111 Resp Rate: [13-28] 18 Blood Pressure: (78-133)/(39-90) 102/51 Arterial Line BP: (81-151)/(27-60) 136/60 SpO2: [83 %-100 %] 96 % Flow Rate (L/min): [2 L/min-4 L/min] 3 L/min Pulse Rate: [54-91] 76 I/O last 3 completed shifts: In: 75451.9 Out: 3709 [Urine:981; Drains:630; Blood:2098] PHYSICAL EXAM General: follows commands inconsistently, confused Cardiac: Hemodynamically stable. Lungs: Non-labored respirations on room air, satting well. Left Lower Extremity: Surgical incision CDI. Left ilioinguinal incisional vac. Calf soft and non-tender. Neurovascularly intact with palpable pulses, brisk cap refill. Sensation intact grossly to light touch throughout dermatomes. Fires tib ant, gastroc, ehl, fhl spontaneously, though not to command Drain: two davol drains to suction Output by Drain (mL) 11/24/23 07 - 11/24/23 1900 11/24/23 190 - 11/25/23 0700 11/25/23 07 - 11/25/23 1900 11/25/231900 - 11/26/23 0621 Closed/Suction Drain 1 Inferior;Midline Abdomen Accordion 10 Fr. 75 95 Closed/Suction Drain 2 Left;Lateral Hip Accordion 10 Fr. 125 335 LABS Recent Results (from the past 24 hour(s)) Blood Gas with Coox, Venous Collection Time: 11/25/23 7:08 AM Result Value pO2, Venous, B 36 pCO2, Venous, B 46 pH, Venous, B 7.37 Base Excess, Venous, B 1 HCO3, Venous, B 27 Hemoglobin, Venous, B 8.2 (L) O2Hb, Venous, B 65.2 COHb, Venous, B 1.9 MetHb, Venous, B <1.0 CtO2, Venous, B 7.5 Sample Site, Venous, B Venipunct Patient Status Collection Time: 11/25/23 7:08 AM Result Value O2 Flow 3.0 Device NC Spont. breaths/min 18 Blood Gas with Coox, Arterial Collection Time: 11/25/23 9:22 AM Result Value pO2 232 (H) pCO2 36 pH 7.42 Base Excess -1 HCO3 24 Hemoglobin, B 7.4 (L) O2Hb 97.5 COHb 1.8 MetHb 1.1 CtO2 10.7 (L) Calcium, Ionized Collection Time: 11/25/23 9:22 AM Result Value Calcium, Ionized, B 4.40 (L) Sodium, B Collection Time: 11/25/23 9:22 AM Result Value Sodium, B 141 Potassium, Blood Collection Time: 11/25/23 9:22 AM Result Value Potassium, B 3.4 (L) Glucose, Whole Blood Collection Time: 11/25/23 9:22 AM Result Value Glucose 112 Patient Status Collection Time: 11/25/23 9:22 AM Result Value Temperature 35.8 FIO2 0.70 Blood Gas with Coox, Arterial Collection Time: 11/25/23 11:09 AM Result Value pO2 178 (H) pCO2 44 pH 7.31 (L) Base Excess -4 (L) HCO3 22 Hemoglobin, B 8.0 (L) O2Hb 98.6 (H) COHb 1.3 MetHb <1.0 CtO2 11.5 (L) Calcium, Ionized Collection Time: 11/25/23 11:09 AM Result Value Calcium, Ionized, B 4.84 Sodium, B Collection Time: 11/25/23 11:09 AM Result Value Sodium, B 139 Potassium, Blood Collection Time: 11/25/23 11:09 AM Result Value Potassium, B 3.5 (L) Glucose, Whole Blood Collection Time: 11/25/23 11:09 AM Result Value Glucose 143 (H) Lactate, B - Intra-op Collection Time: 11/25/23 11:09 AM Result Value Lactate, B 1.1 Hemoglobin, Whole Blood Collection Time: 11/25/23 12:13 PM Result Value Hemoglobin, B 8.1 (L) Blood Gas with Coox, Arterial Collection Time: 11/25/23 1:31 PM Result Value pO2 162 (H) pCO2 42 pH 7.32 (L) Base Excess -4 (L) HCO3 22 Hemoglobin, B 8.5 (L) O2Hb 97.5 COHb 1.7 MetHb 1.1 CtO2 12.1 (L) Calcium, Ionized Collection Time: 11/25/23 1:31 PM Result Value Calcium, Ionized, B 4.34 (L) Sodium, B Collection Time: 11/25/23 1:31 PM Result Value Sodium, B 141 Potassium, Blood Collection Time: 11/25/23 1:31 PM Result Value Potassium, B 3.7 Glucose, Whole Blood Collection Time: 11/25/23 1:31 PM Result Value Glucose 165 (H) Patient Status Collection Time: 11/25/23 1:31 PM Result Value Temperature 35.7 FIO2 0.50 Basic Metabolic Panel Collection Time: 11/25/23 3:30 PM Result Value Potassium, P 4.3 Sodium, P 141 Chloride, P 108 (H) Bicarbonate, P 21 (L) Anion Gap, P 12 BUN (Blood Urea Nitrogen), P 22 Creatinine 0.95 Estimated GFR (eGFR) 80 Calcium, Total, P 7.7 (L) Glucose, P 189 (H) CBC without Differential Collection Time: 11/25/23 3:30 PM Result Value Hemoglobin 9.3 (L) Hematocrit 28.7 (L) Erythrocytes 3.14 (L) MCV 91.4 RBC Distrib Width 14.7 (H) Platelet Count 55 (L) Leukocytes 7.9 Troponin T, Baseline with 2 Hour/6 Hour Reflex Biomarker Panel Collection Time: 11/25/23 3:30 PM Result Value Troponin T, Baseline, 5th gen 32 (H) Magnesium Collection Time: 11/25/23 3:31 PM Result Value Magnesium, S 2.1 Phosphorus Inorganic Collection Time: 11/25/23 3:31 PM Result Value Phosphorus (Inorganic), S 3.8 Calcium, Ionized Collection Time: 11/25/23 3:32 PM Result Value Calcium, Ionized, B 4.60 (L) pH Collection Time: 11/25/23 3:32 PM Result Value pH 7.32 (L) Troponin T, 2 Hour with 6 Hour Reflex, 5th Gen Collection Time: 11/25/23 5:38 PM Result Value Troponin T, 2 hr, 5th gen 32 (H) 2H Delta 0 2H Delta Interp Not Changing Thromboelastograph, Kaolin, Blood Collection Time: 11/25/23 9:04 PM Result Value R, Kaolin, TEG 6.2 K, Kaolin, TEG 2.8 (H) Angle, Kaolin, TEG 51.8 (L) MA, Kaolin, TEG 55.2 (L) Ly30, Kaolin, TEG 0.4 CBC without Differential Collection Time: 11/25/23 9:05 PM Result Value Hemoglobin 7.7 (L) Hematocrit 23.2 (L) Erythrocytes 2.59 (L) MCV 89.6 RBC Distrib Width 14.7 (H) Platelet Count 55 (L) Leukocytes 8.4 Basic Metabolic Panel Collection Time: 11/25/23 9:05 PM Result Value Potassium, P 4.2 Sodium, P 140 Chloride, P 107 Bicarbonate, P 24 Anion Gap, P 9 BUN (Blood Urea Nitrogen), P 24 Creatinine 0.96 Estimated GFR (eGFR) 79 Calcium, Total, P 7.3 (L) Glucose, P 175 (H) *Note: Due to a large number of results and/or encounters for the requested time period, some results have not been displayed. A complete set of results can be found in Results Review. IMAGING DX Chest Portable 1 View Result Date: 11/25/2023 Impression: No change since 11/24/2023. Low lung volumes. Bibasilar atelectasis. Skeletal degenerative changes. Left rib fracture not well seen radiographically. Remainder negative. CT Head without IV Contrast Result Date: 11/24/2023 Impression: 1. 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 2. Punctate hyperdensity noted in the left frontal region on the prior study is again noted and possibly reflects a punctate cortical hemorrhage. 3. Mild asymmetric prominence of the extra-axial space over the left frontal convexity may reflect a small subdural effusion. ASSESSMENT / PLAN #1 s/p ORIF left associated both column acetabular fracture 11/[address] Higuera via limited ilioinguinal with ASIS osteotomy plus Stoppa approach --Activity: TTWB LLE. PT/OT to follow. --Antibiotics: Perioperative cefazolin x2 doses. --Blood: Hemodynamically stable; currently asymptomatic. --Brace: none --Cultures/Path: None. --Diet: Per primary service. --Drains: 2 davol drains; iVAC to ilioinguinal incision --Dressing: Surgical dressing in place, C/D/I. Ivac in place. --VTE Prophylaxis: Mechanical prophylaxis with SCDs, early mobilization, and recommend Lovenox 30mgBID from POD1 --Pain: per primary --Bowel Regimen: Senna, Miralax, Bisacodyl enema prn --Urinary: Urinary catheter in place. --Imaging: Postop imaging completed --Code: Full --Dispo: Anticipate discharge to SNF From 6am-6pm Tuesday-Tuesday, please contact OTS-1 with any questions regarding this patient. If overnight (6 PM to 6 AM) or any time on weekends, please contact the Orthopedic Surgery house resident marine resource economist at [phone] * Carlyn Rivas M.B.B.S. - 11/26/2023 4:43 AM CDT SICU Progress Note PATIENT SUMMARY Mr. Grayson is an 83 year old male with no known medical history who presented on 11/22 following a fall from approximately 6 feet off a ladder onto his left side. He landed on his left side and hit his head. He is amnesic to the events. Per his there are concerns that he may have dementia, butdoes not see a primary care physician. [facility] a number of [facility]. Trauma scans were performed and were notable for the injuries listed below. Injuries: - Small amount of layering blood products in the occipital horn of the left lateral ventricle - Small cortical hemorrhage versus focal subarachnoid hemorrhage anterior left frontal lobe - Left pelvic fractures with associated left retroperitoneal hematoma - Intramuscular hematomas involving the left gluteus and iliopsoas muscles - Nondisplaced left anterior sixth rib fracture Interval Events: -Went to the OR yesterday with OTS for ORIF of the Left Acetabulum -Overnight he became acutely hypotensive, with cool extremities and a Hb drop from 9.3 to 7.7. -Initially received 1L LR but ultimately massive transfusion protocol was activated and he [id number] pRBC + 2U FFP + 2U Platelets. Hb rise was appropriate for the 4U received. -Intermittent pressor requirements overnight via peripheral IV -Planned for repeat head CT without IV contrast this morning. CTAP with IV contrast in addition, inthe setting of MTP overnight with ongoing intermittent pressor requirement for MAPs <50 OBJECTIVE I have reviewed the current vital sign data as applicable to this admission. PHYSICAL EXAM General appearance: no acute distress Neurologic: alert, oriented to person, HEENT: normocephalic, without obvious abnormality Chest: clear to auscultation anteriorly Heart: regular rate and rhythm, S1 and S2 normal, no murmur Abdomen: mildly tender to palpation in left lower quadrant, no ecchymosis, soft, non-distended Extremities: Left lower extremity placed in splint, palpable DP pulses in BLE DIAGNOSTICS I have reviewed relevant laboratory, imaging, and other diagnostics as applicable. ASSESSMENT / PLAN Daily plan: -Repeat Head CT without IV contrast today per [facility] (No Keppra per [facility]) -Plan for repeat CTAP with IV contrast as well, to r/o ongoing bleeding in the pelvis -DVT Px plan based on CT head findings -LLE TTWB per OTS for 12 weeks -Periop ancef for additional 2 post-op doses completed -Continue to trend CBC and TEG at regular intervals to guide resuscitation PLAN BY SYSTEMS: HEMODYNAMICS/CV: - HR: 80-90s; SBP: 100-150s; MAP: >70 - lactate: 1.6 (11/24) - ECHO: none on file - EKG: SR, PACs - troponin: 29 (25, 22) - home meds: none - current meds: none Plan: Maintain MAPs>60-65 , Requiring intermittent NE infusions (currently via PIV) NEUROLOGIC: - GCS: 14, -1 for confusion; RASS: +1 - Lethargic and agitated overnight. - pain medications:tylenol 650 mg q6h, oxycodone 2.5 q4h PRN, lidoderm patch, PRN fentanyl, PRN dilaudid - no focal neuro deficits noted overnight Plan: Repeat head CT today per [facility]. Okay to start DVT Px after if stable. PULMONARY: - Nondisplaced left anterior sixth rib fracture - Saturating well on 2-3L NC - CXR: None - meds DuoNebs p.r.n. - Rib fracture numbers on 11/23: NIF -60, VC 2.5 L of predicted 4 L during the day -Overnight remained on 2-3 L NC Plan: Aggressive pulmonary hygiene. Currently saturating well on 2-3L NC. RENAL: - I/O: +10.4L since admission, +8L for the day - UOP:600 cc - mIVF: LR at 100 mL/hr + 4U pRBC, 2FFP and 2Plt overnight - Rosado catheter in place - Cr AM pending (1.14) - AM BMP pending, replete electrolytes as needed Plan: continue to follow renal function, electrolytes, and UOP closely Obtain a repeat weight this morning. ID: - Tmax: 37.1 - WBC: AM pending (7.5) - antibiotics: none - cultures: none Plan: No infectious concerns or indication for antibiotics currently. Periop ancef completed for 2 doses postop HEME: - Hgb: AM pending (11.6) - Plts: AM Pending (51) - TEG: WNL Holding DVT prophylaxis currently in setting of hematoma as well as SAH. Plan to restart pending CThead results today VASCULAR ACCESS: - PIV x 2 GI/NUTRITION: - diet: CLD - drains: none Plan: Clears ENDOCRINE: - glucose: 140-170s - Hb A1c 5.4 - insulin: none - steroids: none Plan: Re-check glucose on AM BMP. MUSCULOSKELETAL: - PMR consulted -POD-1 from ORIF of L acetabular fracture - activity: TTWB LLE Plan: TTWB LLE for 12 weeks per OTS SKIN: - repositioning per nursing PROPHYLAXIS: - DVT: held in setting of intracranial bleed as well as RP hematoma, plan pending CT head today - GI: none CODE STATUS: - Full code - Surrogate: Ramon DISPOSITION: - SICU Associated attestation - Jason Navarrete M.D. - 11/26/2023 12:35 PM CDT Patient seen and examined, discussed on morning multidisciplinary SICU rounds with the SICU team. Chart notes, laboratory, and radiographic data reviewed. I have reviewed and agree with dr. Rivas's documentation from today's date as attested herein, including her assessment and plan unless noted otherwise below. OR yesterday for ORIF of the left acetabulum; blood loss was 2 L.He did receive RBC in the OR in addition to fluids. He became acutely hypotensive later in the day, with cool extremities and a Hb drop from 9.3 to 7.7. He was resuscitated with 1 L LR and subsequently 4 U pRBC + 2 U FFP + 2 U platelets. He did receive pressors intermittently. Hb increased to 11.6, and has since decreased to 8.6, but he has been hemodynamically stable, and is receiving maintenance crystalloid infusion. Repeat head CT w/o IV contrast this morning shows new small bleed in the left anterior cerebrum. In spite of the interval events, the patient looks very well today on my visit. He is up in his chair, appears to be comfortable, and is conversant although with some confusion. When asked directly, he stated that his left hip was a little sore, and expressed surprise when told his pelvis had been fractured and was repaired yesterday. Continue to hold DVT chemoprophylaxis. Full code. Careful monitoring of overall volume status. Repeat hemoglobin. Repeat head CT in two days' time. * Rae Coello M.D. - 11/25/2023 4:55 PM CDT I saw and evaluated Carlos Alberto Grayson on rounds today with our geriatrics medicine consult team, and I agree with the findings and plan as documented in today's progress note by Barry Fitzpatrick PA-C, with the following comments: Mr. Grayson underwent ORIF today. Per nursing he slept well last night. When I saw him post-procedure in the ICU, he was still somnolent following his procedure. RECOMMENDATIONS: If he remains somnolent through the rest of today, please hold ramelton and suvorexant tonight Should these meds be held and he later become awake/agitated in the middle of the night, then I would recommend giving the ramelteon (shorter acting) but holding the suvorexant (longer acting) so that he does not have residual somnolence going into tomorrow We will continue to follow as it relates to management of his delirium and sleep-wake cycle Please refer to Mr. Fitzpatrick's note dated today for additional details about our team's plan of care. * Naveed Dan, Sushila. - 11/25/2023 4:25 PM CDT SUBJECTIVE Mr. Grayson was unable to be examined at bedside today secondary to patient being in operating room during a.m. rounds. Both Dr. Johnson and the trauma team rounded on SICU patient's and talk to the SICUteam in regards to Carlos Alberto. Patient is currently in the OR for left acetabular ORIF, with repeat head CT scheduled for tomorrow a.m.. Patient is afebrile per charts in hemodynamically stable per chart at this time. OBJECTIVE VITAL SIGNS Blood Pressure: 118/61, Heart Rate: 93, Pulse Rate: 89, Resp Rate: 19, Temperature: 36.6 ??C, SpO2:98 % I/O last 3 completed shifts: In: 32899 Out: 3988 [Urine:1690; Drains:200; Blood:2098] Vitals and nursing note reviewed. DIAGNOSTICS I have reviewed labs, ECG, xray, CT, diagnostics, and surgical note . DX Pelvis 3+ Views Result Date: 11/25/2023 Impression: Negative for postoperative purposes. Surgical hardware is intact without radiographic evidence of failure. Pelvic surgical drain. DX Chest Portable 1 View Result Date: 11/25/2023 Impression: No change since 11/24/2023. Low lung volumes. Bibasilar atelectasis. Skeletal degenerative changes. Left rib fracture not well seen radiographically. Remainder negative. Lab results last 24 hours: Recent Results (from the past 24 hour(s)) CBC without Differential Collection Time: 11/25/23 6:15 AM Result Value Hemoglobin 8.4 (L) Hematocrit 25.5 (L) Erythrocytes 2.70 (L) MCV 94.4 RBC Distrib Width 13.9 Platelet Count 93 (L) Leukocytes 7.4 Basic Metabolic Panel Collection Time: 11/25/23 6:15 AM Result Value Potassium, S 3.9 Sodium, S 140 Chloride, S 108 (H) Bicarbonate, S 23 Anion Gap 9 BUN (Blood Urea Nitrogen), S 23 Creatinine 0.94 Estimated GFR (eGFR) 81 Calcium, Total, S 7.8 (L) Glucose, S 103 Magnesium Collection Time: 11/25/23 6:15 AM Result Value Magnesium, S 2.2 Phosphorus Inorganic Collection Time: 11/25/23 6:15 AM Result Value Phosphorus (Inorganic), S 2.2 (L) CK (Creatine Kinase) Collection Time: 11/25/23 6:15 AM Result Value Creatine Kinase (CK), S 3100 (H) Blood Gas with Coox, Venous Collection Time: 11/25/23 7:08 AM Result Value pO2, Venous, B 36 pCO2, Venous, B 46 pH, Venous, B 7.37 Base Excess, Venous, B 1 HCO3, Venous, B 27 Hemoglobin, Venous, B 8.2 (L) O2Hb, Venous, B 65.2 COHb, Venous, B 1.9 MetHb, Venous, B <1.0 CtO2, Venous, B 7.5 Sample Site, Venous, B Venipunct Patient Status Collection Time: 11/25/23 7:08 AM Result Value O2 Flow 3.0 Device NC Spont. breaths/min 18 Blood Gas with Coox, Arterial Collection Time: 11/25/23 9:22 AM Result Value pO2 232 (H) pCO2 36 pH 7.42 Base Excess -1 HCO3 24 Hemoglobin, B 7.4 (L) O2Hb 97.5 COHb 1.8 MetHb 1.1 CtO2 10.7 (L) Calcium, Ionized Collection Time: 11/25/23 9:22 AM Result Value Calcium, Ionized, B 4.40 (L) Sodium, B Collection Time: 11/25/23 9:22 AM Result Value Sodium, B 141 Potassium, Blood Collection Time: 11/25/23 9:22 AM Result Value Potassium, B 3.4 (L) Glucose, Whole Blood Collection Time: 11/25/23 9:22 AM Result Value Glucose 112 Patient Status Collection Time: 11/25/23 9:22 AM Result Value Temperature 35.8 FIO2 0.70 Blood Gas with Coox, Arterial Collection Time: 11/25/23 11:09 AM Result Value pO2 178 (H) pCO2 44 pH 7.31 (L) Base Excess -4 (L) HCO3 22 Hemoglobin, B 8.0 (L) O2Hb 98.6 (H) COHb 1.3 MetHb <1.0 CtO2 11.5 (L) Calcium, Ionized Collection Time: 11/25/23 11:09 AM Result Value Calcium, Ionized, B 4.84 Sodium, B Collection Time: 11/25/23 11:09 AM Result Value Sodium, B 139 Potassium, Blood Collection Time: 11/25/23 11:09 AM Result Value Potassium, B 3.5 (L) Glucose, Whole Blood Collection Time: 11/25/23 11:09 AM Result Value Glucose 143 (H) Lactate, B - Intra-op Collection Time: 11/25/23 11:09 AM Result Value Lactate, B 1.1 Hemoglobin, Whole Blood Collection Time: 11/25/23 12:13 PM Result Value Hemoglobin, B 8.1 (L) Blood Gas with Coox, Arterial Collection Time: 11/25/23 1:31 PM Result Value pO2 162 (H) pCO2 42 pH 7.32 (L) Base Excess -4 (L) HCO3 22 Hemoglobin, B 8.5 (L) O2Hb 97.5 COHb 1.7 MetHb 1.1 CtO2 12.1 (L) Calcium, Ionized Collection Time: 11/25/23 1:31 PM Result Value Calcium, Ionized, B 4.34 (L) Sodium, B Collection Time: 11/25/23 1:31 PM Result Value Sodium, B 141 Potassium, Blood Collection Time: 11/25/23 1:31 PM Result Value Potassium, B 3.7 Glucose, Whole Blood Collection Time: 11/25/23 1:31 PM Result Value Glucose 165 (H) Patient Status Collection Time: 11/25/23 1:31 PM Result Value Temperature 35.7 FIO2 0.50 Basic Metabolic Panel Collection Time: 11/25/23 3:30 PM Result Value Potassium, P 4.3 Sodium, P 141 Chloride, P 108 (H) Bicarbonate, P 21 (L) Anion Gap, P 12 BUN (Blood Urea Nitrogen), P 22 Creatinine 0.95 Estimated GFR (eGFR) 80 Calcium, Total, P 7.7 (L) Glucose, P 189 (H) CBC without Differential Collection Time: 11/25/23 3:30 PM Result Value Hemoglobin 9.3 (L) Hematocrit 28.7 (L) Erythrocytes 3.14 (L) MCV 91.4 RBC Distrib Width 14.7 (H) Platelet Count 55 (L) Leukocytes 7.9 Troponin T, Baseline with 2 Hour/6 Hour Reflex Biomarker Panel Collection Time: 11/25/23 3:30 PM Result Value Troponin T, Baseline, 5th gen 32 (H) *Note: Due to a large number of results and/or encounters for the requested time period, some results have not been displayed. A complete set of results can be found in Results Review. ASSESSMENT / PLAN Today's Plan: - OR today for L-acetabular ORIF - repeat head CT tomorrow 11/25 to reassess slightly increasing hemorrhage within left lateral ventricle - continue to hold DVT prophylaxis at this time until follow-up head CT New Consults Geriatric medicine NSGY C OTS 1 PMR TBI Diet: Adult Diet Clear Liquid Activity: Up with assistance, LLE WBAT VTE Prophylaxis: Holding GI Prophylaxis: not indicated Bowel Regimen: Dulcolax, MiraLax, Senokot Pain: Tylenol, triple cream, lidocaine patch, Dilaudid, fentanyl Antibiotics: Cefazolin Disposition: SNF, TBD #1 History Of Falling - TTS - SAS - PMR TBI, PT/OT consulted #2 Subarachnoid Hematoma Trauma Without Loss Of Consciousness Subsequent #3 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) #3 Contusion Scalp Initial - Neurosurgery Chief C consulted and following - 11/[address]: interval increase in left lateral ventricle hemorrhage - holding DVT prophylaxis at this time - repeat head CT 11/25 - Interval increase in intracranial bleed, so continue to hold chemical DVT prophylaxis - No other interventions necessary at this time #4 Fracture Rib One Open Initial Left - traumatic rib fracture protocol - aggressive pulmonary hygiene - multimodal pain regimen #5 Anemia Posthemorrhagic Acute (Blood Loss Anemia) - Hemoglobin has remained low throughout his hospital stay - Type and cross obtained at admission - Most recent hemoglobin 8.8 this morning at 9:30 a.m. - Continue to monitor #6 Contusion Other Intra Abdominal Organs Initial #7 Fracture Acetabulum Other Closed Initial Left (HCC) #8 Fracture Pelvis Multiple Closed With Stable Disruption Pelvis Ring Initial (HCC) #9 Fracture Ilium Closed Initial Left (HCC) - OTS-1 consulted and following - Traction pin placed upon admission - Likely will proceed to the operating room on TuesdayNovember 24 - Maintain 10 lb of distal femoral traction until he goes to the OR #10 Delirium - Geriatric Medicine consulted and following - Recommended initiation of ramelteon and suvorexant to help improve sleep and reduce still area - Seroquel p.r.n., and can alternate with olanzapine 2.5 mg - Maximize use of non pharmacological interventions to reduce delirium All cares per the Surgical ICU at this time. They can be reached at pager #[phone]. For any additional questions or concerns, please page the Trauma Service at [phone]. Associated attestation - Lenora Johnson M.D. - 11/27/2023 1:36 AM CDT I saw and evaluated the patient, participating in the ashraf portions of the service. I reviewed Mr. Dan's note. I agree with his findings and plan. 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 Grayson is an 83 year old male patient who fell off a 6 ft ladder and was admitted to the ICU on 11/22 for monitoring of an intracranial bleed and left retroperitoneal hematoma associated with a complex comminuted left pelvic fracture. He also has an isolated left 6th rib fracture. Over the past 24 hours, the patient has been afebrile without tachycardia or hypotension. His chestx-ray does not demonstrate any major changes and he continues to require intermittent 2L NC oxygen supplementation. He has made 1.3L of urine. His hemoglobin is 8.4 from 8.3. No leukocytosis. Lactateis 1.7 down from 2.1. OBJECTIVE I have reviewed the current vital sign data as applicable. VITAL SIGNS BP 149/70 Pulse 77 Temp 37.4 ??C (Axillary) Resp 20 Ht 180.3 cm Wt 86.6 kg SpO2 93% BMI 26.63 kg/m?? PHYSICAL EXAM Patient is in the operating room at the time of our rounds. ASSESSMENT AND PLAN Mr. Grayson is an 83 year old male patient who fell off a 6 ft ladder and was admitted to the ICU on 11/22 for monitoring of an intracranial bleed and left retroperitoneal hematoma associated with a complex comminuted left pelvic fracture. He also has an isolated left 6th rib fracture. Our Neurosurgery colleagues request a repeat head CT tomorrow. The patient is in the operating room with our OTS colleagues for ORIF of his left pelvic fracture. We appreciate our ICU colleagues' care of the patient. They anticipate reassessing the patient postoperatively and considering transfer to the regular care floor if the patient continues to be stable. * Serafin Ford M.D. - 11/25/2023 3:51 PM CDT Trauma Tertiary Survey (Adult) Admission Date/Time: 11/23/2023 12:47 PM Trauma Level: Red Mechanism of Injury: Fall from height SUBJECTIVE In brief, this is a 83-year-old male patient admitted to the care of the trauma ICU following a fall from height which resulted in intracranial blood chronic of the lateral left ventricle and cortical hemorrhage versus subarachnoid hemorrhage of the left anterior frontal lobe, left pelvic fracture with retroperitoneal hematoma, intramuscular hematoma left gluteus and left iliopsoas and left anterior 6th rib fracture. The patient has been admitted in the surgical ICU for hemodynamic monitoring with known large retroperitoneal hematoma. He was taken the operating room 11/25/2023 with orthopedicsurgery for left acetabulum operative fixation. OBJECTIVE Physical Exam General Adult patient in no apparent distress HEENT Ecchymotic injury over the left frontal scale Scalp: Ecchymosis of her left frontal scalp Eyes: no injury Ears: no injury Nose: no injury Mouth: no injury Neck: no injury, non-tender Cervical Spine: no injury Midline tenderness?: no Heart:: RRR Chest/Lungs: no injury Abdomen: no injury Back: no injury Pelvis & Perineum: Pelvic fractures as described in the radiology reports R Upper Extremities no injury Pulses: present L Upper Extremities: no injury Pulses: present R Lower Extremities: no injury Pulses: present L Lower Extremities: no injury Pulses: present Neurologic Moving all extremities Motor: intact bilateral Sensory: sensation intact Pulses: radial: R 2+/L 2+, dorsalis pedis: R 2+/L 2+ GCS: TOTAL - 15 Other: No additional injuries identified DX Pelvis 3+ Views Result Date: 11/25/2023 Impression: Negative for postoperative purposes. Surgical hardware is intact without radiographic evidence of failure. Pelvic surgical drain. DX Chest Portable 1 View Result Date: 11/25/2023 Impression: No change since 11/24/2023. Low lung volumes. Bibasilar atelectasis. Skeletal degenerative changes. Left rib fracture not well seen radiographically. Remainder negative. DX Pelvis 1-2 Views, DX Femur Left 2 Views Result Date: 11/24/2023 Impression: Interval placement of a left femoral traction device. Redemonstrated multiple complex pelvic fractures including a comminuted fracture of the left superior and inferior pubic rami, acetabulum, and iliac wing. Fractures extend to the left SI joint and are better delineated on CT abdomen and pelvis from earlier today. Rosado catheter. DX Femur Left 1 View Result Date: 11/24/2023 Impression: Single view lateral radiograph of the distal left femur for the assessment of traction device, which is overlying the distal left femur. DX Pelvis 1-2 Views Result Date: 11/24/2023 Impression: Redemonstrated 2 column left acetabular comminuted displaced fracture, not significantly changed. Slight femoral head medial subluxation. Bladder catheter. CT Retrospective 3D Post Processing Result Date: 11/24/2023 Impression: 3D volume rendering images were created on an independent workstation as ordered by thetreating provider and reviewed by the radiologist for surgical planning purposes, and reside in theCT ABDOMEN PELVIS WITH IV contrast folder in QREADS dated 11/23/2023 CT Head without IV Contrast Result Date: 11/24/2023 Impression: 1. 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 2. Punctate hyperdensity noted in the left frontal region on the prior study is again noted and possibly reflects a punctate cortical hemorrhage. 3. Mild asymmetric prominence of the extra-axial space over the left frontal convexity may reflect a small subdural effusion. DX Chest Portable 1 View Result Date: 11/24/2023 Impression: No significant change since yesterday. Low lung volumes. Bibasilar atelectasis superimposed on coarse opacities in both lower lungs. Left rib fracture not well appreciated radiographically. Injuries Identified To Date: - Small amount of layering blood products in the occipital horn of the left lateral ventricle - Small cortical hemorrhage versus focal subarachnoid hemorrhage anterior left frontal lobe - Left pelvic fractures with associated left retroperitoneal hematoma - Intramuscular hematomas involving the left gluteus and iliopsoas muscles - Nondisplaced left anterior sixth rib fracture New Injuries Identified: 1. None Incidental Findings: 1. Small incidental pulmonary nodules identified on chest CT Sutures/Inna (location and removal dates): 1. Pending orthopedic surgical operative note C-spine cleared (radiographically and clinically)?: yes Thoracic and Lumbar spine cleared: yes #1 History Of Falling #2 Subarachnoid Hematoma Trauma Without Loss Of Consciousness Subsequent #3 Contusion Scalp Initial #4 Fracture Rib One Open Initial Left #5 Contusion Other Intra Abdominal Organs Initial #6 Anemia Posthemorrhagic Acute (Blood Loss Anemia) #7 Fracture Acetabulum Other Closed Initial Left (HCC) #8 Fracture Pelvis Multiple Closed With Stable Disruption Pelvis Ring Initial (HCC) #9 Fracture Ilium Closed Initial Left (HCC) #10 Encephalopathy Metabolic #11 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 - 11/25/2023 3:02 PM CDT Orthopedic Service: [facility] Hospital Admission Day: 11/23/2023 Length of Stay: 2 Procedures: Surgery Information This Encounter Past and Present Procedures (11/25/2022 to Today) Date Procedures Providers Loc / Dept 11/25/2023 OPEN REDUCTION INTERNAL FIXATION ACETABULUM. Naveed Higuera M.D.Mickey Benton M.D.Labott, Joshua R, M.D.Sherie Lozano M.D. RST ROMB OR SUBJECTIVE Mr. Grayson was examined in the immediate postoperative period. His pain is well-controlled. He demonstrates an intact neurovascular exam of the left lower extremity grossly but participation is limited. He will recover in the postoperative care unit prior to transfer back to the ICU. OBJECTIVE VITALS Temperature: [37.1 ??C] 37.1 ??C Heart Rate: [68-100] 75 Resp Rate: [16-30] 20 Blood Pressure: (79-155)/(42-96) 126/61 SpO2: [86 %-100 %] 95 % Flow Rate (L/min): [2 L/min] 2 L/min Pulse Rate: [66-102] 75 I/O last 3 completed shifts: In: 8458 Out: 3573 [Urine:1475; Blood:2098] PHYSICAL EXAM General: follows commands inconsistently, sleepy from anesthesia Cardiac: Hemodynamically stable. Lungs: Non-labored respirations on room air, satting well. Left Lower Extremity: Surgical incision CDI. Left ilioinguinoal incisional vac. Calf soft and non-tender. Neurovascularly intact with palpable pulses, brisk cap refill. Sensation intact grossly to light touch throughout dermatomes. Fires tib ant, gastroc, ehl, fhl. Drain: two davol drains Output by Drain (mL) 11/23/23 07 - 11/23/23 1900 11/23/23 190 - 11/24/23 0700 11/24/23 0701 - 11/24/23 1900 11/24/23 190 - 11/25/23 0711/25/23 07 - 11/25/23 1426 Requested LDAs do not have output data documented. LABS Recent Results (from the past 24 hour(s)) CBC without Differential Collection Time: 11/24/23 2:48 PM Result Value Hemoglobin 8.3 (L) Hematocrit 25.0 (L) Erythrocytes 2.73 (L) MCV 91.6 RBC Distrib Width 13.6 Platelet Count 114 (L) Leukocytes 7.5 CBC without Differential Collection Time: 11/25/23 6:15 AM Result Value Hemoglobin 8.4 (L) Hematocrit 25.5 (L) Erythrocytes 2.70 (L) MCV 94.4 RBC Distrib Width 13.9 Platelet Count 93 (L) Leukocytes 7.4 Basic Metabolic Panel Collection Time: 11/25/23 6:15 AM Result Value Potassium, S 3.9 Sodium, S 140 Chloride, S 108 (H) Bicarbonate, S 23 Anion Gap 9 BUN (Blood Urea Nitrogen), S 23 Creatinine 0.94 Estimated GFR (eGFR) 81 Calcium, Total, S 7.8 (L) Glucose, S 103 Magnesium Collection Time: 11/25/23 6:15 AM Result Value Magnesium, S 2.2 Phosphorus Inorganic Collection Time: 11/25/23 6:15 AM Result Value Phosphorus (Inorganic), S 2.2 (L) CK (Creatine Kinase) Collection Time: 11/25/23 6:15 AM Result Value Creatine Kinase (CK), S 3100 (H) Blood Gas with Coox, Venous Collection Time: 11/25/23 7:08 AM Result Value pO2, Venous, B 36 pCO2, Venous, B 46 pH, Venous, B 7.37 Base Excess, Venous, B 1 HCO3, Venous, B 27 Hemoglobin, Venous, B 8.2 (L) O2Hb, Venous, B 65.2 COHb, Venous, B 1.9 MetHb, Venous, B <1.0 CtO2, Venous, B 7.5 Sample Site, Venous, B Venipunct Patient Status Collection Time: 11/25/23 7:08 AM Result Value O2 Flow 3.0 Device NC Spont. breaths/min 18 Blood Gas with Coox, Arterial Collection Time: 11/25/23 9:22 AM Result Value pO2 232 (H) pCO2 36 pH 7.42 Base Excess -1 HCO3 24 Hemoglobin, B 7.4 (L) O2Hb 97.5 COHb 1.8 MetHb 1.1 CtO2 10.7 (L) Calcium, Ionized Collection Time: 11/25/23 9:22 AM Result Value Calcium, Ionized, B 4.40 (L) Sodium, B Collection Time: 11/25/23 9:22 AM Result Value Sodium, B 141 Potassium, Blood Collection Time: 11/25/23 9:22 AM Result Value Potassium, B 3.4 (L) Glucose, Whole Blood Collection Time: 11/25/23 9:22 AM Result Value Glucose 112 Patient Status Collection Time: 11/25/23 9:22 AM Result Value Temperature 35.8 FIO2 0.70 Blood Gas with Coox, Arterial Collection Time: 11/25/23 11:09 AM Result Value pO2 178 (H) pCO2 44 pH 7.31 (L) Base Excess -4 (L) HCO3 22 Hemoglobin, B 8.0 (L) O2Hb 98.6 (H) COHb 1.3 MetHb <1.0 CtO2 11.5 (L) Calcium, Ionized Collection Time: 11/25/23 11:09 AM Result Value Calcium, Ionized, B 4.84 Sodium, B Collection Time: 11/25/23 11:09 AM Result Value Sodium, B 139 Potassium, Blood Collection Time: 11/25/23 11:09 AM Result Value Potassium, B 3.5 (L) Glucose, Whole Blood Collection Time: 11/25/23 11:09 AM Result Value Glucose 143 (H) Lactate, B - Intra-op Collection Time: 11/25/23 11:09 AM Result Value Lactate, B 1.1 Hemoglobin, Whole Blood Collection Time: 11/25/23 12:13 PM Result Value Hemoglobin, B 8.1 (L) Blood Gas with Coox, Arterial Collection Time: 11/25/23 1:31 PM Result Value pO2 162 (H) pCO2 42 pH 7.32 (L) Base Excess -4 (L) HCO3 22 Hemoglobin, B 8.5 (L) O2Hb 97.5 COHb 1.7 MetHb 1.1 CtO2 12.1 (L) Calcium, Ionized Collection Time: 11/25/23 1:31 PM Result Value Calcium, Ionized, B 4.34 (L) Sodium, B Collection Time: 11/25/23 1:31 PM Result Value Sodium, B 141 Potassium, Blood Collection Time: 11/25/23 1:31 PM Result Value Potassium, B 3.7 Glucose, Whole Blood Collection Time: 11/25/23 1:31 PM Result Value Glucose 165 (H) Patient Status Collection Time: 11/25/23 1:31 PM Result Value Temperature 35.7 FIO2 0.50 IMAGING DX Chest Portable 1 View Result Date: 11/25/2023 Impression: No change since 11/24/2023. Low lung volumes. Bibasilar atelectasis. Skeletal degenerative changes. Left rib fracture not well seen radiographically. Remainder negative. CT Head without IV Contrast Result Date: 11/24/2023 Impression: 1. 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 2. Punctate hyperdensity noted in the left frontal region on the prior study is again noted and possibly reflects a punctate cortical hemorrhage. 3. Mild asymmetric prominence of the extra-axial space over the left frontal convexity may reflect a small subdural effusion. ASSESSMENT / PLAN #1 s/p ORIF left associated both column acetabular fracture 11/[address] Higuera via limited ilioinguinal with ASIS osteotomy plus Stoppa approach --Activity: TTWB LLE. PT/OT to follow. --Antibiotics: Perioperative cefazolin x2 doses. --Blood: Hemodynamically stable; currently asymptomatic. --Brace: none --Cultures/Path: None. --Diet: Per primary service. --Drains: 2 davol drains; iVAC to ilioinguinal incision --Dressing: Surgical dressing in place, C/D/I. Ivac in place. --VTE Prophylaxis: Mechanical prophylaxis with SCDs, early mobilization, and recommend Lovenox 30mgBID from POD1 --Pain: per primary --Bowel Regimen: Senna, Miralax, Bisacodyl enema prn --Urinary: Urinary catheter in place. --Imaging: Postop imaging completed --Code: Full --Dispo: Anticipate discharge to SNF From 6am-6pm Tuesday-Tuesday, please contact O[facility] with any questions regarding this patient. If overnight (6 PM to 6 AM) or any time on weekends, please contact the Orthopedic Surgery house resident marine resource economist at [phone] Nura Benton M.D. ([id number]) * Zia Lundberg Pharm.D., R.Ph. - 11/25/2023 9:36 AM CDT Pharmacist Progress Note HPI: 83 y.o. male. Admitted on 11/22 after PMH: none, possible undiagnosed dementia OBJECTIVE Outpatient medication history: Review in progress, reviewed via electronic record but not yet confirmed with the patient or family. Injuries: - Small amount of layering blood products in the occipital horn of the left lateral ventricle - Small cortical hemorrhage versus focal subarachnoid hemorrhage anterior left frontal lobe - Left pelvic fractures with associated left retroperitoneal hematoma - Intramuscular hematomas involving the left gluteus and iliopsoas muscles - Nondisplaced left anterior sixth rib fracture Procedures(this encounter): 11/23- plan ORIF acetabulum Neuro/Psych: Combative overnight - received haldol x2 (QTc 482). UDS neg. - Pain: multimodal with PRN HM, krish apap, lido patch, - IVH : neuro following, repeat CT head tomorrow. Currently not on Keppra for seizure ppx but service will check with neuro - Delirium: starting QTP, also ramelteon and suvorexant per lisbeth CV: VSS, intermittent tachycardia yesterday resolved. SBP goal <160 - no CV meds at home Resp: RAir Hem/Vasc: Trending H/H, TEG and INR wnl - No evidence of active extravasation or need for IR intervention for the pelvic hematomas Neph: BL Scr unknown, appears normal. Scr down to 0.9. IVF, low/appropriate UOP so far. CK 3100 uptrending ID: Afeb for past 24h and WBC WNL on admit. Tdap given GI/Hepatic/Nutrition/Endocrine: BG <180, NPO with OR, no BR Prophylaxis: VTE ppx held ASSESSMENT / PLAN Will need VTE ppx as appropriate tomorrow- holding for large pelvic hematoma, CT head tomorrow Trend Scr and UOP for possible TIFFANIE with rising CK. Meds appropriate but will cont fluids Add BR Pharmacy Specific Dosing Protocols and Consultations: None Emily Lundberg, PharmTarikD., R.Ph. Pager [phone] * Barry Fitzpatrick P.A.-C., M.S. - 11/25/2023 7:59 AM CDT Geriatrics Consult - Progress Note SUBJECTIVE Patient seen examined upon returned to the ICU. Patient still sedated, arousable to tactile stimuli, not oriented. Updated and son regarding geriatric plan to treat and help reduce delirium. Interval History: Open reduction internal fixation of left acetabular fracture I have reviewed the current medication list. OBJECTIVE VITAL SIGNS Temperature: [37.1 ??C] 37.1 ??C Heart Rate: [68-137] 75 Resp Rate: [14-30] 20 Blood Pressure: (79-172)/(42-96) 126/61 SpO2: [76 %-100 %] 95 % Flow Rate (L/min): [2 L/min] 2 L/min Pulse Rate: [66-137] 75 PHYSICAL EXAM General: No acute distress. Mental: Alert to tactile stimuli, not oriented. ENT: Oral mucosa pink and moist. Heart: Regular rhythm and rate. Lungs: Clear to auscultation bilaterally; no wheezes, rhonchi or rales. Respirations even and non-labored on room air. Abdomen: Soft, nontender, nondistended. Active bowel sounds x 4 quadrants. Extremities: No pedal edema noted. DIAGNOSTICS I have independently reviewed laboratory studies, imaging and electronic medical records. ASSESSMENT / PLAN Mr. Grayson is hospitalized on [facility] Trauma and General Surgery for evaluation and management of: Fracture Ilium Closed Initial Left (HCC) #1 History Of Falling #2 Subarachnoid Hematoma Trauma Without Loss Of Consciousness Subsequent #3 Contusion Scalp Initial #4 Fracture Rib One Open Initial Left #5 Contusion Other Intra Abdominal Organs Initial #6 Anemia Posthemorrhagic Acute (Blood Loss Anemia) #7 Fracture Acetabulum Other Closed Initial Left (HCC) #8 Fracture Pelvis Multiple Closed With Stable Disruption Pelvis Ring Initial (HCC) #9 Fracture Ilium Closed Initial Left (HCC) #10 Encephalopathy Metabolic #11 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 ([facility]) What Matters Most to Mr. Grayson: Personal interests/hobbies: Fixing things Relationships/supports: in hoahaoism Mentation: Baseline cognition: Independent of ADLs and IADLs with the exception of finances. Poor short-term memory Delirium screening: CAM indeterminate for acute delirium on exam. Patient able to state days of theweek backwards but -2 RASS. Decision-making capacity: impaired: Identified primary contact Mobility: Baseline Mobility: BMAT Level 4 (Able to stand and walk) Current Activity/Mobility: BMAT Level 2 (Able to extend knee but cannot stand; needs lift equipment) Safe Mobility (Fall Prevention) Plan: Patient lacks capacity; I have discussed the safety plan withnursing. Medications/Medical Issues: Medication review: reconciled Relevant acute medical/geriatrics issues: BPH, cataracts, glaucoma Anticipated disposition plan: Detention Facility RECOMMENDATIONS: 1. Initiate ramelteon and suvorexant q.h.s. to improve sleep and hopefully reduce delirium. 2. Remove Rosado catheter, start Flomax 0.4 mg daily and utilize straight cath t.i.d. 3. Change Seroquel to p.r.n., alternative would be olanzapine 2.5 mg. 4. From the cognition standpoint we are strongly in favor of fixation of left hip as patient has poor memory and is very active at baseline. 5. Recommend some sort of fidget toy or tactile puzzle to keep patient busy. 6. Continue non-pharmacological interventions for delirium: Open blinds during the day to promote daytime alertness and irregular sleep-wake cycle Regular verbal reminders of current location and what is happening. Get out of bed during the day into chairs as much as possible, especially for meals Continue working with PT/OT. Please continue to provide motivations as much as possible. Continue sleep enhancement Have familiar things in the room, like family pictures Have the clock visible from the patient's bed Have hearing aids and glasses in place if applicable The above plan of care was discussed with Dr. Rae Coello [phone]), HIM programmer analyst consultant. I personally spent a total 25 minutes in counseling and coordination of care as documented above. Thank you for the opportunity to care for this patient. We will continue to follow with you. Pleasepage the Geriatrics Consult Service at [phone]. * Carlyn Rivas M.B.B.S. - 11/25/2023 5:08 AM CDT SICU Progress Note PATIENT SUMMARY Mr. Grayson is an 83 year old male with no known medical history who presented on 6/5 following a fall from approximately 6 feet off a ladder onto his left side. He landed on his left side and hit his head. He is amnesic to the events. Per his there are concerns that he may have dementia, butdoes not see a primary care physician. [facility] a [facility] of [facility]. Trauma scans were performed and were notable for the injuries listed below. Injuries: - Small amount of layering blood products in the occipital horn of the left lateral ventricle - Small cortical hemorrhage versus focal subarachnoid hemorrhage anterior left frontal lobe - Left pelvic fractures with associated left retroperitoneal hematoma - Intramuscular hematomas involving the left gluteus and iliopsoas muscles - Nondisplaced left anterior sixth rib fracture Interval Events: - Patient discussed with IR on the day of admission, no evidence of active extravasation or need for IR intervention - hemodynamically normal on 2L NC, no rate or rhythm concerns overnight. - left leg placed in traction by orthopedic surgery, planned for ORIF acetabulum this morning - Slept well after ramelteon, suvorexant and PRN zyprexa. Comfortable with soft restraints - AM labs pending - Planned for repeat head CT tomorrow on 11/25 OBJECTIVE I have reviewed the current vital sign data as applicable to this admission. PHYSICAL EXAM General appearance: no acute distress Neurologic: alert, oriented to person, no further agitation overnight HEENT: normocephalic, without obvious abnormality Chest: clear to auscultation anteriorly Heart: regular rate and rhythm, S1 and S2 normal, no murmur Abdomen: mildly tender to palpation in left lower quadrant, no ecchymosis, soft, non-distended Extremities: Left lower extremity placed in traction, palpable DP pulses in BLE DIAGNOSTICS I have reviewed relevant laboratory, imaging, and other diagnostics as applicable. ASSESSMENT / PLAN Daily plan: -Repeat Head CT without IV contrast tomorrow per [facility] -Discuss need for Keppra with [facility] team -Continue to main SBP <160mm Hg -OR today with ORS for left sided acetabular ORIF -Tertiary trauma survey pending. Patient agitated overnight and unable to participate appropriately PLAN BY SYSTEMS: HEMODYNAMICS/CV: - HR: 80-90s; SBP: 100-150s; MAP: >70 - lactate: 1.7 (11/23) - ECHO: none on file - EKG: SR, PACs - troponin: 29 (25, 22) - home meds: none - current meds: none Plan: keep SBP <160 with SAH. Hemodynamically normal. NEUROLOGIC: - GCS: 14, -1 for confusion; RASS: +1 - patient alert, oriented to person. No acute agitation overnight. Slept well and required only soft restraints. - pain medications:tylenol 650 mg q6h, oxycodone 2.5 q4h PRN, lidoderm patch, PRN fentanyl, PRN dilaudid - no focal neuro deficits noted overnight Plan: Repeat head CT tomorrow once again per [facility]. Okay to start DVT Px after if stable. Discuss with [facility] re need for Keppra PULMONARY: - Nondisplaced left anterior sixth rib fracture - Saturating well on 2L NC - CXR: AM CXR pending. - meds DuoNebs p.r.n. - Rib fracture numbers: NIF -60, VC 2.5 L of predicted 4 L during the day yesterday, refused to participate during subsequent attempts. Plan to retry this morning Plan: Continue rib fracture numbers this morning. Aggressive pulmonary hygiene. Currently saturating well on 2L NC. AM CXR pending. RENAL: - I/O: +2.2L mL since admission, +1.8L for the day - UOP: 1.3 L - mIVF: LR at 100 mL/hr - Rosado catheter in place - Cr AM pending (1.14) - AM BMP pending, replete electrolytes as needed Plan: continue to follow renal function, electrolytes, and UOP closely ID: - Tmax: 37.4 - WBC: AM pending (7.5) - antibiotics: none - cultures: none Plan: No infectious concerns or indication for antibiotics currently. OR today with OTS HEME: - Hgb: AM pending (8.3) - Plts: AM pending (114) - TEG: WNL - Case discussed with IR yesterday, no active extravasation seen, no indication for embolization currently. Plan: Continue serial hemoglobins for left retroperitoneal/pelvic hematoma. Holding DVT prophylaxiscurrently in setting of hematoma as well as SAH. Plan to restart pending CT head results tomorrow. VASCULAR ACCESS: - PIV x 2 GI/NUTRITION: - diet: NPO for OR today - drains: none Plan: Remain NPO in setting of OR today with orthopedic surgery ENDOCRINE: - glucose: 140s - Hb A1c 5.4 - insulin: none - steroids: none Plan: Re-check glucose on AM BMP. MUSCULOSKELETAL: - PMR consulted -Plan for ORIF of L acetabular fracture today (currently placed in distal traction). Further x-raysand 3D recon obtained - activity: NWB LLE Plan: Plan for OR today for ORIF of acetabular fracture, patient currently in traction. Repeat CK this morning SKIN: - repositioning per nursing PROPHYLAXIS: - DVT: held in setting of intracranial bleed as well as RP hematoma - GI: none CODE STATUS: - Full code - Surrogate: Ramon DISPOSITION: - SICU Associated attestation - Jason Navarrete M.D. - 11/25/2023 3:57 PM CDT Patient seen and examined, discussed on morning multidisciplinary SICU rounds with the SICU team. Chart notes, laboratory, and radiographic data reviewed. I have reviewed and agree with Rob's documentation from today's date as attested herein, including her assessment and plan unless noted otherwise below. Repeat head CT 48 h after last (tomorrow AM). Hold DVT chemoprophylaxis until this is cleared Sleep meds per geriatric medicine (ramelteon, suvorexant and PRN Zyprexa). Slept well with that last pm. Ortho took to OR for ORIF of his acetabular fracture this morning; he has been having some intermittent SVT afterwards. Check electrolytes, calcium. Will keep on SICU while assessing. * Alyson Bueno L.G.SPeggy., M.S.W. - 11/24/2023 2:38 PM CDT SUBJECTIVE Social work attempted to meet with patient's to provide support and complete a psychosocial assessment; Ramon not physically present in room and patient not appropriate to meet with. Social work soke to Ramon via phone, who requested social work inform patient they and Barry will be coming tomorrow at 6am to be with the patient. Ramon requested assistance with appropriate clothing items to bring for the patient- social work informed nursing. Ramon is agreeable to meeting with social work in person to complete a psychosocial assessment. OBJECTIVE Social work spoke to Ramon via phone. Ramon shared they will be here tomorrow at 6am to visit the patient with their son, Barry. Ramon is agreeable to meeting with social work in person tomorrow. ASSESSMENT / PLAN ASSESSMENT Patient not assessed due to ongoing confusion and aggression PLAN Social work will meet with Ramon in person Social work will provide support as appropriate Aimee Ochoa, M.S.W. 11/24/23 * Rafal Scott P.A.-C. - 11/24/2023 1:29 PM CDT Trauma Screening and Brief Intervention Screen applied: Blood Alcohol Was intervention required: no * Kandy Krause O.T., MOT - 11/24/2023 10:54 AM CDT 11/24/23 1053 Reason Therapy Missed Reason Therapy Missed Medical hold (Patient scheduled for OR today for ORIF. OT/PT to follow up at next date.) * Umm Schmidt M.D. - 11/24/2023 9:23 AM CDT This is a chief resident supervisory note for Dr. Tellez; please see his full progress note from this morning for complete interval event and exam details. Repeat CT head today demonstrates perhaps slightly more prominent L IVH and L frontal subdural space (without accumulated blood products). We will request that the primary team please continues to hold DVT chemoprophylaxis and obtains a repeat CT head in 48 hours to assess stability of the blood products. If stable at that time, pt will be cleared to start SQH at discretion of primary service. * Rafal Scott P.A.-C. - 11/24/2023 8:04 AM CDT SUBJECTIVE Mr. Grayson was seen and examined today in the ICU. Overnight, he became agitated and aggressive towards staff. This morning, he is oriented to person, but not place and time. Pleasant and interactive, answering some questions appropriately. Most significant pain is in his left hip area. Denies shortness of breath, difficulty breathing, abdominal pain, nausea, vomiting, numbness, and tingling. Bladder function remains intact. No bowel movement recorded since admission. No additional acute concerns or complaints were noted, and he was given an opportunity to ask questions which were answered to his apparent satisfaction. OBJECTIVE PHYSICAL EXAMINATION Constitutional Appearance: Normal appearance. He is not ill-appearing. Cardiovascular Rate and Rhythm: Normal rate and regular rhythm. Pulmonary Effort: Pulmonary effort is normal. No respiratory distress. Breath sounds: No stridor. No wheezing or rales. Abdominal General: There is no distension. Tenderness: There is no abdominal tenderness. There is no guarding. Musculoskeletal General: No swelling or tenderness. Neurological General: No focal deficit present. Mental Status: He is alert. He is disoriented. I have reviewed labs, xray, and CT. DX Pelvis 1-2 Views, DX Femur Left 2 Views Result Date: 11/24/2023 Impression: Interval placement of a left femoral traction device. Redemonstrated multiple complex pelvic fractures including a comminuted fracture of the left superior and inferior pubic rami, acetabulum, and iliac wing. Fractures extend to the left SI joint and are better delineated on CT abdomen and pelvis from earlier today. Rosado catheter. DX Femur Left 1 View Result Date: 11/24/2023 Impression: Single view lateral radiograph of the distal left femur for the assessment of traction device, which is overlying the distal left femur. DX Pelvis 1-2 Views Result Date: 11/24/2023 Impression: Redemonstrated 2 column left acetabular comminuted displaced fracture, not significantly changed. Slight femoral head medial subluxation. Bladder catheter. CT Retrospective 3D Post Processing Result Date: 11/24/2023 Impression: 3D volume rendering images were created on an independent workstation as ordered by thetreating provider and reviewed by the radiologist for surgical planning purposes, and reside in theCT ABDOMEN PELVIS WITH IV contrast folder in QREADS dated 11/23/2023 CT Head without IV Contrast Result Date: 11/24/2023 Impression: 1. 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 2. Punctate hyperdensity noted in the left frontal region on the prior study is again noted and possibly reflects a punctate cortical hemorrhage. 3. Mild asymmetric prominence of the extra-axial space over the left frontal convexity may reflect a small subdural effusion. DX Chest Portable 1 View Result Date: 11/24/2023 Impression: No significant change since yesterday. Low lung volumes. Bibasilar atelectasis superimposed on coarse opacities in both lower lungs. Left rib fracture not well appreciated radiographically. DX Femur Left 2 Views, DX Pelvis 3+ Views Result Date: 11/23/2023 Impression: Comminuted displaced 2 column. Left acetabular fracture. Significant increase of the medial acetabular wall. Slight medial subluxation of the femoral head. Residual contrast in the bladder. Moderate tricompartmental left knee osteoarthritis. CT Head without IV Contrast Result Date: 11/23/2023 Impression: Large left frontal scalp hematoma. No fracture. Small amount of layering blood productsin the occipital horn of the left lateral ventricle. Small cortical hemorrhage versus focal subarachnoid hemorrhage anterior left frontal lobe (series 6, image 184). Normal caliber ventricles. Chronic small vessel ischemic changes. Periapical lucencies about the left maxillary first molar and left mandibular first molar teeth. Incomplete fusion of the C1 posterior arch. Remainder negative. Findings discussed with Bereket Snider M.D. (pager #[phone]) on 11/23/2023 at 1:[address] Abdomen Pelvis with IV Contrast Result Date: 11/23/2023 Impression: 1. Complex left pelvic fractures with associated [...] acute traumatic findings in the chest. 4. Smallincidental pulmonary nodules. CT Chest with IV Contrast Result Date: 11/23/2023 Impression: 1. Complex left pelvic fractures with associated [...] acute traumatic findings in the chest. 4. Smallincidental pulmonary nodules. CT Thoracic Spine by Reconstruction, CT Lumbar Spine by Reconstruction Result Date: 11/23/2023 Impression: No acute fracture identified within the thoracic or lumbar spine. CT Cervical Spine without IV Contrast Result Date: 11/23/2023 Impression: No fracture or traumatic findings within the cervical spine. Chronic changes as noted. Lab results last 24 hours: Recent Results (from the past 24 hour(s)) Troponin T, 2 Hour with 6 Hour Reflex, 5th Gen Collection Time: 11/23/23 2:52 PM Result Value Troponin T, 2 hr, 5th gen 21 (H) 2H Delta 4 2H Delta Interp Indeterminate Basic Metabolic Panel Collection Time: 11/23/23 2:52 PM Result Value Potassium, P 4.0 Sodium, P 140 Chloride, P 105 Bicarbonate, P 21 (L) Anion Gap, P 14 BUN (Blood Urea Nitrogen), P 31 (H) Creatinine 1.14 Estimated GFR (eGFR) 65 Calcium, Total, P 8.4 (L) Glucose, P 124 Thromboelastograph, Kaolin, Blood Collection Time: 11/23/23 4:49 PM Result Value R, Kaolin, TEG 5.6 K, Kaolin, TEG 1.4 Angle, Kaolin, TEG 70.0 MA, Kaolin, TEG 68.4 Ly30, Kaolin, TEG 0.0 Basic Metabolic Panel Collection Time: 11/23/23 4:51 PM Result Value Potassium, P 4.2 Sodium, P 141 Chloride, P 106 Bicarbonate, P 20 (L) Anion Gap, P 15 BUN (Blood Urea Nitrogen), P 31 (H) Creatinine 1.17 Estimated GFR (eGFR) 63 Calcium, Total, P 8.1 (L) Glucose, P 150 (H) Calcium, Ionized Collection Time: 11/23/23 4:51 PM Result Value Calcium, Ionized, B 4.59 (L) CBC without Differential Collection Time: 11/23/23 4:51 PM Result Value Hemoglobin 11.3 (L) Hematocrit 35.3 (L) Erythrocytes 3.72 (L) MCV 94.9 RBC Distrib Width 13.7 Platelet Count 171 Leukocytes 10.7 (H) Lactate Collection Time: 11/23/23 4:51 PM Result Value Lactate, P 2.6 (H) Magnesium Collection Time: 11/23/23 4:51 PM Result Value Magnesium, S 2.0 Phosphorus Inorganic Collection Time: 11/23/23 4:51 PM Result Value Phosphorus (Inorganic), S 3.1 Prothrombin Time (PT) Collection Time: 11/23/23 4:51 PM Result Value Prothrombin Time, P 12.6 (H) INR 1.1 Troponin T, Baseline with 2 Hour/6 Hour Reflex Biomarker Panel Collection Time: 11/23/23 4:51 PM Result Value Troponin T, Baseline, 5th gen 22 (H) CK (Creatine Kinase) Collection Time: 11/23/23 4:51 PM Result Value Creatine Kinase (CK), S 728 (H) Hemoglobin A1c Collection Time: 11/23/23 4:51 PM Result Value Hemoglobin A1c, B 5.4 pH Collection Time: 11/23/23 4:51 PM Result Value pH 7.30 (L) Blood Gas with Coox, Venous Collection Time: 11/23/23 4:52 PM Result Value pO2, Venous, B 22 pCO2, Venous, B 45 pH, Venous, B 7.30 (L) Base Excess, Venous, B -4 HCO3, Venous, B 22 Hemoglobin, Venous, B 11.6 (L) O2Hb, Venous, B 28.0 COHb, Venous, B <1.0 MetHb, Venous, B <1.0 CtO2, Venous, B 4.6 Sample Site, Venous, B Venipunct Patient Status Collection Time: 11/23/23 4:52 PM Result Value FIO2 0.21 Spont. breaths/min 18 Troponin T, 2 Hour with 6 Hour Reflex, 5th Gen Collection Time: 11/23/23 6:55 PM Result Value Troponin T, 2 hr, 5th gen 25 (H) 2H Delta 3 2H Delta Interp Not Changing Troponin T, 6h, 5th Gen Collection Time: 11/23/23 10:52 PM Result Value Troponin T, 6 hr, 5th gen 29 (H) 6H Delta 7 6H Delta Interp Not Changing CBC without Differential Collection Time: 11/23/23 10:52 PM Result Value Hemoglobin 9.5 (L) Hematocrit 29.4 (L) Erythrocytes 3.14 (L) MCV 93.6 RBC Distrib Width 13.7 Platelet Count 132 (L) Leukocytes 8.0 Lactate Collection Time: 11/23/23 10:52 PM Result Value Lactate, P 2.1 Drug Screen Urine Collection Time: 11/24/23 7:01 AM Result Value Ethanol, Screen U Negative Amphetamines, U Negative Barbiturates, Screen, U Negative Benzodiazepines, Screen, U Negative Cocaine, Screen, U Negative Opiates, Screen, U Negative Phencyclidine, Screen, U Negative Tetrahydrocannabinol, U Negative Basic Metabolic Panel Collection Time: 11/24/23 9:26 AM Result Value Potassium, S 4.1 Sodium, S 141 Chloride, S 108 (H) Bicarbonate, S 23 Anion Gap 10 BUN (Blood Urea Nitrogen), S 30 (H) Creatinine 1.14 Estimated GFR (eGFR) 65 Calcium, Total, S 8.1 (L) Glucose, S 147 (H) CBC without Differential Collection Time: 11/24/23 9:26 AM Result Value Hemoglobin 8.8 (L) Hematocrit 27.2 (L) Erythrocytes 2.90 (L) MCV 93.8 RBC Distrib Width 13.6 Platelet Count 129 (L) Leukocytes 8.5 CK (Creatine Kinase) Collection Time: 11/24/23 9:26 AM Result Value Creatine Kinase (CK), S 2304 (H) Lactate Collection Time: 11/24/23 9:26 AM Result Value Lactate, P 1.7 Blood Gas with Coox, Venous Collection Time: 11/24/23 9:26 AM Result Value pO2, Venous, B 25 pCO2, Venous, B 41 pH, Venous, B 7.41 Base Excess, Venous, B 2 HCO3, Venous, B 26 Hemoglobin, Venous, B 9.2 (L) O2Hb, Venous, B 45.5 COHb, Venous, B 1.9 MetHb, Venous, B <1.0 CtO2, Venous, B 5.9 Sample Site, Venous, B Venipunct *Note: Due to a large number of results and/or encounters for the requested time period, some results have not been displayed. A complete set of results can be found in Results Review. ASSESSMENT / PLAN #1 History Of Falling #2 Subarachnoid Hematoma Trauma Without Loss Of Consciousness Subsequent #3 Contusion Scalp Initial #4 Fracture Rib One Open Initial Left #5 Contusion Other Intra Abdominal Organs Initial #6 Anemia Posthemorrhagic Acute (Blood Loss Anemia) #7 Fracture Acetabulum Other Closed Initial Left (HCC) #8 Fracture Pelvis Multiple Closed With Stable Disruption Pelvis Ring Initial (HCC) #9 Fracture Ilium Closed Initial Left (HCC) #10 Delirium Mechanism of Injury: Fall from ladder, between - Diet: Adult Diet Clear Liquid Activity: bedrest VTE Prophylaxis: SCDs and holding chemical DVT prophylaxis until after repeat Head CT to be obtained in 48 hrs (Tuesday) per Neurosurgery GI Prophylaxis: not indicated Bowel Regimen: None Pain: Oxycodone, Fentanyl, Tylenol, Lidoderm patch, and triple agent pain cream Antibiotics: None Disposition: Unknown at this time Daily plan: - All cares per the ICU service - Likely will proceed to the operating room with OTS-1 tomorrow for his pelvic fractures - Repeat head CT this morning with slight interval increase in intracranial hemorrhage, continue tohold chemical DVT prophylaxis per Neurosurgery's recommendation - Geriatric Medicine consulted, appreciate their assistance #1 History Of Falling #2 Subarachnoid Hematoma Trauma Without Loss Of Consciousness Subsequent #3 Contusion Scalp Initial - Neurosurgery Chief C consulted and following - Recommended repeat head CT which was obtain this morning - Interval increase in intracranial bleed, so continue to hold chemical DVT prophylaxis until additional repeat head CT on Tuesday - No other interventions necessary at this time #4 Fracture Rib One Open Initial Left - Pain control with above regimen - Encourage aggressive pulmonary hygiene #5 Anemia Posthemorrhagic Acute (Blood Loss Anemia) - Hemoglobin has remained low throughout his hospital stay - Type and cross obtained at admission - Most recent hemoglobin 8.8 this morning at 9:30 a.m. - Continue to monitor #6 Contusion Other Intra Abdominal Organs Initial #7 Fracture Acetabulum Other Closed Initial Left (HCC) #8 Fracture Pelvis Multiple Closed With Stable Disruption Pelvis Ring Initial (HCC) #9 Fracture Ilium Closed Initial Left (HCC) - OTS-1 consulted and following - Traction pin placed upon admission - Likely will proceed to the operating room on TuesdayNovember 24 - Maintain 10 lb of distal femoral traction until he goes to the OR #10 Delirium - Geriatric Medicine consulted and following - Recommended initiation of ramelteon and suvorexant to help improve sleep and reduce still area - Seroquel p.r.n., and can alternate with olanzapine 2.5 mg - Maximize use of non pharmacological interventions to reduce delirium All cares per the Surgical ICU at this time. They can be reached at pager #[phone]. For any additional questions or concerns, please page the Trauma Service at [phone]. * Dorian Ferrara M.D., Ph.D. - 11/24/2023 7:51 AM CDT Neurosurgery attending note Briefly, Pt is 83yM experienced a fall today, unwitnessed but hitting his head with obvious bruising on his forehead on exam. CT head shows a small amount of intraventricular hemorrhage, likely secondary to the trauma. I am in agreement with Dr. Schmidt that neurosurgical intervention is not necessary. * Zia Lundberg Pharm.D., R.Ph. - 11/24/2023 7:32 AM CDT Pharmacist Progress Note HPI: 83 y.o. male. Admitted on 11/22 after PMH: none, possible undiagnosed dementia OBJECTIVE Outpatient medication history: Review in progress, reviewed via electronic record but not yet confirmed with the patient or family. Injuries: - Small amount of layering blood products in the occipital horn of the left lateral ventricle - Small cortical hemorrhage versus focal subarachnoid hemorrhage anterior left frontal lobe - Left pelvic fractures with associated left retroperitoneal hematoma - Intramuscular hematomas involving the left gluteus and iliopsoas muscles - Nondisplaced left anterior sixth rib fracture Procedures(this encounter): 11/23- plan ORIF acetabulum Neuro/Psych: Combative overnight - received haldol x2 (QTc 482). UDS neg. - Pain: multimodal - IVH : neuro following, repeat CT head this morning - Delirium: starting QTP and will allow some PRNs ([place] route as spitting out meds) CV: VSS but some new tachycardia this AM - no CV meds at home Resp: RAir Hem/Vasc: Trending H/H, TEG and INR wnl - No evidence of active extravasation or need for IR intervention for the pelvic hematomas Neph: BL Scr unknown, appears normal. Admit SCr 0.8. Up slightly to 1.2- pending lab today. LR at 100/hour, appropriate UOP so far ID: Afeb for past 24h and WBC WNL on admit. Tdap given GI/Hepatic/Nutrition/Endocrine: BG <180, NPO, no BR Prophylaxis: VTE ppx held ASSESSMENT / PLAN Will need VTE ppx as appropriate tomorrow- holding for large pelvic hematoma, CT head Trend Scr and UOP for possible evolving TIFFANIE. Meds appropriate Add BR Pharmacy Specific Dosing Protocols and Consultations: None Emily Lundberg, PharmTarikDTarik, R.Ph. Pager [phone] * Francisco Staley M.D. - 11/24/2023 6:35 AM CDT OTS Chief Note This patient was evaluated yesterday evening in his well as this morning in the ICU. Yesterday evening the patient was interactive although he is oriented to person only. He appeared to be comfortable. He was able to follow commands and he could fire his tibialis anterior and gastroc soleus. He reports good sensation in his foot. It was warm well perfused. This morning the patient is more disoriented. He was very combative overnight and is currently in the soft restraints. He has been placed into a femoral traction. The patient has been NPO in anticipation of possible surgery today with Orthopedic surgery. We willdiscuss the case with the team this morning. There is a possibility that this fracture may be treated non operatively and this has been discussed with the patient's . We will update the ICU team regarding the care plan today. Addendum: No plan for OR today. We will likely proceed to the OR tomorrow with Dr. Higuera. Plan to remain in traction on bed rest. Please make NPO at midnight and hold DVT prophylaxis in the AM. Electronically signed by: Francisco Staley M.D. 11/24/23 6:37 AM CDT * Montez Tellez M.D., Ph.D. - 11/24/2023 5:18 AM CDT NEUROSURGERY PROGRESS NOTE HD#1 tSAH fall from ladder 83M no AC/AP level red trauma following 4-6 foot fall from a ladder with left scalp hematoma and small amount of layering blood products in the occipital horn of the left lateral ventricle, as well as trace subarachnoid blood products on CTH. Exam notable for confusion, but baseline undiagnosed dementia, thus non- operative management. Admitted to [facility] ICU given other injuries (acetabular and gluteal hematoma) with plans for repeat imaging. Interval Events: Noted agitation and confusion overnight, requiring restraints; otherwise vitals stable. Interval CTH delayed given agitation Neuro stable on exam this morning. A+Ox2 with agitation largely resolved Vitals: BP 135/79 Pulse 91 Temp 37.4 ??C (Oral) Resp 16 Ht 180.3 cm Wt 86.6 kg SpO2 95% BMI 26.63 kg/m?? Labs: Lab Results Component Value Date HGB 8.8 (L) 11/24/2023 WBC 8.5 11/24/2023 PLT 129 (L) 11/24/2023 NA 141 11/24/2023 CREATININE 1.14 11/24/2023 GLUCOSE 147 (H) 11/24/2023 INR 1.1 11/23/2023 EXAM Awake, alert, conversational, clear speech Hard of hearing. Oriented to name and year; reports being in [facility] Vision grossly intact. EOMI. Normal V1-V3 sensation. Face Symmetric. Tongue midline Symmetric at least antigravity strength bilaterally in upper and lower extremities, though restraints in place. SILT ASSESSMENT #1 History Of Falling #2 Subarachnoid Hematoma Trauma Without Loss Of Consciousness Subsequent #3 Contusion Scalp Initial #4 Fracture Rib One Open Initial Left #5 Contusion Other Intra Abdominal Organs Initial #6 Anemia Posthemorrhagic Acute (Blood Loss Anemia) #7 Fracture Acetabulum Other Closed Initial Left (HCC) #8 Fracture Pelvis Multiple Closed With Stable Disruption Pelvis Ring Initial (HCC) #9 Fracture Ilium Closed Initial Left (HCC) PLAN Neuro checks per unit routine Follow up interval CTH, if stable ok to begin SQH 24H from stability scan. If increase, then repeatCTH in 48H SBP <160 Other cares per ICU team Chief C service, [phone] Montez Tellez M.D., Ph.D. * Shay Lee M.D. - 11/24/2023 3:38 AM CDT REFERRAL SOURCE Trauma PATIENT SUMMARY Mr. Grayson is an 83 year old male with no known medical history who presented on 11/22 following a fall from approximately 6 feet off a ladder onto his left side. He landed on his left side and hit his head. He is amnesic to the events. Per his there are concerns that he may have dementia, butdoes not see a primary care physician. Previously he was seen [facility], but it has been a number of years. Trauma scans were performed and were notable for the injuries listed below. Injuries: - Small amount of layering blood products in the occipital horn of the left lateral ventricle - Small cortical hemorrhage versus focal subarachnoid hemorrhage anterior left frontal lobe - Left pelvic fractures with associated left retroperitoneal hematoma - Intramuscular hematomas involving the left gluteus and iliopsoas muscles - Nondisplaced left anterior sixth rib fracture Interval Events: - Patient discussed with IR, no evidence of active extravasation or need for IR intervention - hemodynamically normal on room air - left leg placed in traction by orthopedic surgery - patient with dementia, agitation overnight, patient pulling out lines, received Haldol 5mg IV x2 - Hb 8.3 on admission, repeat 11.3 (appeared to be hemoconcentrated), repeat 6 hours 9.3. continuedtrending. Did not receive any blood products - Plan repeat head CT at 6am per NSGY, unable to obtain overnight due to agitation - Plan for ORIF acetabulum with orthopedic surgery today OBJECTIVE I have reviewed the current vital sign data as applicable to this admission. PHYSICAL EXAM General appearance: no acute distress Neurologic: alert, oriented to person, acutely agitated overnight HEENT: normocephalic, without obvious abnormality Chest: clear to auscultation anteriorly Heart: regular rate and rhythm, S1 and S2 normal, no murmur Abdomen: mildly tender to palpation in left lower quadrant, no ecchymosis, soft, non-distended Extremities: Left lower extremity placed in traction, palpable DP pulses in [facility] I have reviewed relevant laboratory, imaging, and other diagnostics as applicable. ASSESSMENT / PLAN PLAN BY SYSTEMS: HEMODYNAMICS/CV: - HR: 80-100s; SBP: 100-130s; MAP: >70 - lactate: AM pending, (2.1, 2.6) - ECHO: none on file - EKG: SR, PACs - troponin: 29 (25, 22) - home meds: none - current meds: none Plan: keep SBP <160 with SAH. Hemodynamically normal. NEUROLOGIC: - GCS: 14, -1 for confusion; RASS: +1 - patient alert, oriented to person. Acutely agitated overnight requiring 5mg IV Haldol x2 - pain medications: APAP 650 mg q6h, oxycodone 2.5 q4h PRN, lidoderm patch, triple cream - no focal neuro deficits Plan: Repeat head CT this morning per NSGY, if this is stable ok for DVT ppx from NSGY standpoint. Patient with previously undiagnosed dementia. No home medications. Plan for geriatrics IM consult. PULMONARY: - Nondisplaced left anterior sixth rib fracture - Saturating well on room air - CXR: AM CXR pending. Prior showing: Lung volumes small. No pneumothorax or pleural effusion. Heart size normal. - meds DuoNebs p.r.n. - Rib fracture numbers: NIF -60, VC 2.5 L of predicted 4 L Plan: Continue rib fracture numbers. Aggressive pulmonary hygiene. Currently saturating well on room air. RENAL: - I/O: +164 mL since admission - UOP: 1.2 L - mIVF: LR at 100 mL/hr - Rosado catheter in place - Cr AM pending (1.17, 1.14, 0.79) - AM BMP pending, replete electrolytes as needed - CT A/P left ureter is slightly displaced medially due to hematoma however there is no extravasation of contrast Plan: continue to follow renal function, electrolytes, and UOP closely ID: - Tmax: 36.7 - WBC: AM pending (8, 10.7) - antibiotics: none - cultures: none Plan: No infectious concerns or indication for antibiotics currently. HEME: - Hgb: AM pending (9.5, 11.3, 8.3) - Plts: AM pending (132, 171, 107) - INR: 1.1 - TEG: WNL - Case discussed with IR, no active extravasation seen, no indication for embolization currently. Plan: Continue serial hemoglobins for left retroperitoneal/pelvic hematoma. Holding DVT prophylaxiscurrently in setting of hematoma as well as SAH. VASCULAR ACCESS: - PIV x 2 GI/NUTRITION: - diet: NPO for OR today and repeat Hb - drains: none Plan: Serial abdominal exams. Remain NPO in setting of OR today with orthopedic surgery and until repeat hemoglobin. ENDOCRINE: - glucose: 124-150 - Hb A1c 5.4 - insulin: none - steroids: none Plan: Re-check glucose on AM BMP. MUSCULOSKELETAL: - PMR consulted -OTS recommendations: no benefit for pelvic binder, plan for ORIF of L acetabular fracture today (currently placed in distal traction). Further x-rays and 3D recon obtained - activity: NWB LLE Plan: Plan for OR today for ORIF of acetabular fracture, patient currently in traction SKIN: - repositioning per nursing PROPHYLAXIS: - DVT: held in setting of intracranial bleed as well as RP hematoma - GI: none CODE STATUS: - Full code - Surrogate: Ramon DISPOSITION: - SICU Associated attestation - Jason Navarrete M.D. - 11/24/2023 6:07 PM CDT Patient seen and examined, discussed on morning multidisciplinary SICU rounds with the SICU team. Chart notes, laboratory, and radiographic data reviewed. I have reviewed and agree with Dr. Lee' documentation from today's date as attested herein, including her assessment and plan unless noted otherwise below. Patient is hematoma did not show signs that would indicate a need for interventional radiologic intervention. His left leg has been placed in traction. Plan is for acetabular fixation with Orthopedicsurgery. Neurosurgery would like a repeat head CT in 48 hours to reassess, at which time he may be approved for DVT chemoprophylaxis. We will hold until that time. He continues to show signs of dementia; appreciate geriatrics input in this regard. * Sheldon Choi P.A.-C. - 11/23/2023 5:31 PM CDT C-spine cleared per PMG. * Deonte Barron MDIV - 11/23/2023 2:00 PM CDT [facility] Spiritual Care Progress Note Patient: Carlos Alberto Grayson Age:83 y.o. [id number] Reason(s) for encounter: Spiritual Care contact to introduce spiritual care service and assess for potential spiritual care needs. Summary: I was able to meet with Carlos Alberto Grayson and his for prayer. I provided a brief prayer. His said their general superintendent and general superintendent's are also here and that they have good support. Spiritual Needs and/or Concerns: Carlos Alberto's is worried for his prognosis. Spiritual Care interventions: Introduced the role as member of the interdisciplinary care team and assessed spiritual care needs/concerns of patient and/or family Therapeutic and supportive listening was provided with the aim of allowing patient/family expression of emotions, hopes and worries regarding current medical condition and life stage. Facilitated jain/spiritual practices (prayer, blessing, sacred texts, jain item) with theaim to reinforce patient's spiritual wellness and connection with source of sacredness. Spiritual Care outcomes: Patient/family became familiar with the role of spiritual care provider and identified spiritual care needs. Patient/family expressed feeling comforted by prayer Patient/family was appreciative of spiritual care support. Spiritual Care Plan / Recommendations: Will remain available for spiritual care as needed or requested. Chaplains can be contacted by paging [phone] ([facility]) or [phone] (Judaism). * Eunice Huston L.I.C.SPeggy., M.S.W. - 11/23/2023 1:13 PM CDT SUBJECTIVE Emergency Department social services aide is present at the R1 resuscitation bay in the context of an Adult Level Red Trauma activation. Per EMS: Patient fell at home. EMS reports patient's will be coming from home. EMS reports patient's expresses concern patient may be showing signs of Dementia. EMS reports patient is alertand oriented to himself, which reportedly says is his baseline currently. OBJECTIVE Emergency Department social services aide presents to the resuscitation bay in the context of an Adult Level Red Trauma. Patient was brought by [facility] ambulance. Checked in with the treatment team regarding this patient. ASSESSMENT / PLAN ASSESSMENT Patient appears to be awake and alert. Patient is currently protecting their own airway. A full psychosocial assessment was not completed due to the nature of the medical evaluation. PLAN Please contact social work should any needs arise. Marian Álvarez, M.S.W. 11/23/2023 documented in this encounter H&P Notes * Sheldon Choi P.A.-C. - 11/23/2023 2:24 PM CDT REFERRAL SOURCE Trauma REASON FOR ADMISSION Hemodynamic monitoring for large RP hematoma HISTORY OF PRESENT ILLNESS Mr. Grayson is a 83 year old male with no known medical history who presented on 11/22 following a fall from approximately 6 feet off a ladder onto his left side. He landed on his left side and hit his head. He is amnesic to the events. Per his there are concerns that he may have dementia, but does not see a primary care physician. [facility]. Trauma scans were performed and were notable for the injuries listed below. IR has been consult for possible intervention for his retroperitoneal hematoma. Injuries: - Small amount of layering blood products in the occipital horn of the left lateral ventricle - Small cortical hemorrhage versus focal subarachnoid hemorrhage anterior left frontal lobe - Left pelvic fractures with associated left retroperitoneal and pelvic hemorrhage - Intramuscular hematomas involving the left gluteus and iliopsoas muscles - Nondisplaced left anterior sixth rib fracture REVIEW OF SYSTEMS A comprehensive review of systems was negative except for: left hip pain. Denies chest pain, shortness of breath and abdominal pain. PAST MEDICAL HISTORY None per patient SURGICAL HISTORY None per patient SOCIAL HISTORY Denies drinking alcohol or smoking cigarettes FAMILY HISTORY Noncontributory OBJECTIVE I have reviewed the current vital sign data as applicable to this admission. PHYSICAL EXAM General appearance: acutely ill appearing and in no acute distress Neurologic: alert, oriented, and motor and sensory grossly intact HEENT: normocephalic, without obvious abnormality Chest: clear to auscultation anteriorly Heart: regular rate and rhythm, S1 and S2 normal, no murmur Abdomen: tender to palpation in left lower quadrant, no ecchymosis Extremities: left hip fracture, palpable DP pulses in BLE DIAGNOSTICS I have reviewed relevant laboratory, imaging, and other diagnostics as applicable. ASSESSMENT / PLAN PLAN BY SYSTEMS: HEMODYNAMICS/CV: - HR: 70-90s; SBP: 100-140s; MAP: >65 - lactate: pending (1.6) - ECHO: none on file - EKG: SR, PAC - troponin: 17, 21 - home meds: none - current meds: none Plan: keep SBP <160 with SAH. NEUROLOGIC: - GCS: 14, -1 for confusion; RASS: 0 - pain medications: APAP 650 mg q6h, oxycodone 2.5 q4h PRN, lidoderm patch, triple cream - HINA Plan: repeat HCT in 6 hours, continue to hold DVT prophylaxis. PULMONARY: - Nondisplaced left anterior sixth rib fracture - 2 L NC - VBG: pending - CXR: Lung volumes small. No pneumothorax or pleural effusion. Heart size normal. - meds DuoNebs p.r.n. Plan: Obtain rib fracture numbers. Aggressive pulmonary hygiene. RENAL: - I/O: -325 mL since admission - UOP: 725 mL - mIVF: LR 75 mL/hr - Cr 1.14 (0.79) - BMP: HCO3 21, otherwise WNL - CT A/P left ureter is slightly displaced medially however there is no extravasation of contrast Plan: continue to follow renal function, electrolytes, and UOP closely ID: - Tmax: 36.7 - WBC: 6.7 - antibiotics: none - cultures: none Plan: monitor leukocytosis, no infectious concerns. HEME: - Hgb: pending (8.3) - Plts: pending (107) - INR: 1.5 - TEG: pending Plan: serial hemoglobins for left retroperitoneal and pelvic hemorrhage. VASCULAR ACCESS: - PIV x 2 GI/NUTRITION: - diet: NPO - bowel regimen: MiraLAX, senokot, bisacodyl PRN - drains: none - IR: left retroperitoneal and pelvic hemorrhage no amenable to embolization Plan: serial abdominal exams. IR consulted for possible embolization. ENDOCRINE: - glucose: 124 - insulin: none - steroids: none Plan: Hemoglobin A1c pending MUSCULOSKELETAL: - PMR consulted - activity: NWB RLE Plan: follow-up with OTS about plan for complex left pelvic fractures. SKIN: - repositioning per nursing PROPHYLAXIS: - DVT: held hemorrhage - GI: none CODE STATUS: - Full code - Surrogate: Ramon DISPOSITION: - SICU Associated attestation - Jason Navarrete M.D. - 11/24/2023 6:05 PM CDT Patient seen and examined, discussed with the SICU team. Chart notes, laboratory, and radiographic data reviewed. I have reviewed and agree with Mr. Choi's documentation from today's date as attested herein, including his assessment and plan unless noted otherwise below. 83-year-old male, status post fall 6 feet down off a ladder. He has a small amount of intracranial hemorrhage, and a very complex left pelvic/acetabular fracture with retroperitoneal, and intergluteal and subcutaneous pelvic hemorrhage. His I noted his initial blood pressure in the SICU to be 90/72, with a quite narrow pulse pressure and a pulse of 81. We began significant amount of crystalloid resuscitation following this. Orthopedic surgery has him in traction, plan is pending. Neurosurgery has recommended a repeat head CT in 6 hours. Remainder of assessment and plan as per Mr. Choi's documentation documented in this encounter Procedure Notes * Mickey Benton M.D. - 11/23/2023 8:58 PM CDTAssociated Order(s): ED fracture care Post-Procedure Diagnose(s): Fracture Pelvis Multiple Closed With Stable Disruption Pelvis Ring Initial (HCC) ED fracture care Performed by: Mickey Benton M.D. Authorized by: Mickey Benton M.D. Care team members present 1. Toni Vazquez M.D. PROCEDURE DETAILS Manipulation performed: yes Skin traction used: no Skeletal traction with pin placement used: yes CONSENT Consent obtained: verbal Consent given by: [...] confirmed in a procedural pause. PRE-PROCEDURE DETAILS Indications: fracture Injury location: Hip Hip injury location: Left hip Circulation distal to injury: capillary refill < 2 sec, warm, pink and palpable pulse Movement distal to injury: normal Sensation distal to injury: normal POST-PROCEDURE ASSESSMENT Procedure completed successfully: yes X-ray confirmed reduction: yes Circulation distal to injury: capillary refill< 2 sec, warm, pink and palpable pulse Movement distal to injury: normal Sensation distal to injury: normal Complications: no immediate complications * Carol Miller M.D. - 11/23/2023 4:42 PM CDTAssociated Order(s): Critical Care Procedure Critical Care Performed by: Carol Miller M.D. Authorized by: Carol Miller M.D. Critical care provider statement: Critical care total time (minutes): 45 Critical care time was exclusive of: separately billable procedures and treating other patients andteaching time CPR was performed on this patient: no Critical care was necessary to treat or prevent imminent or life-threatening deterioration of the following conditions: shock trauma RAILWAY SWITCHMAN failure or compromise hemorrhage Critical care was time spent personally by me on the following activities: development of treatment plan with patient or surrogate, discussions with consultants, evaluation of patient's response to treatment, examination of patient, obtaining history from patient or surrogate, ordering and performing treatments and interventions, ordering and review of laboratory studies,ordering and review of radiographic studies, re-evaluation of patient's condition and review of oldcharts I assumed direction of critical care for this patient from another provider in my specialty: no Comments: Discussion with orthopedic surgery Discussion with Neurosurgery Discussion with Trauma surgery Discussion with Interventional Radiology Disposition decision Carol Miller M.D. 11/23/23 1642 documented in this encounter Consult Notes * Jude Olivares - 12/05/2023 1:30 PM CDTAssociated Order(s): IP CONSULT TO SENIOR NURSE MANAGER ELECTRONIC SYSTEMS SECURITY ASSESSMENT [facility] Spiritual Care Consult Note Patient: Carlos Alberto Grayson Age:83 y.o. Location: [id number] Reason(s) for encounter: Responded to Spiritual Care Consult. Summary: I was able to meet with Carlos Alberto Grayson and prayed with him today. He also prayed for his leg. Spiritual Care Plan / Recommendations: Will remain available for spiritual care as needed or requested. Chaplains can be contacted by paging [phone] ([facility]) or [phone] (Judaism). * Isa Cedillo - 12/01/2023 9:12 PM CDTAssociated Order(s): IP CONSULT TO SENIOR NURSE MANAGER ELECTRONIC SYSTEMS SECURITY ASSESSMENT [facility] Spiritual Care Consult Note Patient: Carlos Alberto Grayson Age:83 y.o. [id number] Reason(s) for encounter: Responded to Spiritual Care Consult. Summary: I was able to meet with Carlos Alberto Grayson. He appeared to be confused when we were interacting, and didn't seem to fully understand his health problems. Carlos Alberto did acknowledge God at the end of our visit when he said God bless you to me. Spiritual Care interventions: Introduced the role as member of the interdisciplinary care team with the aim of establishing spiritual therapeutic rapport with patient and/or family Spiritual Care outcomes: Patient/family was appreciative of spiritual care support. Spiritual Care Plan / Recommendations: Will remain available for spiritual care as needed or requested. Chaplains can be contacted by paging [phone] ([place]) or [phone] (Judaism). * Josef Peraza M.D., M.E. - 11/29/2023 12:28 PM CDTAssociated Order(s): IP CONSULT TO NEUROLOGY NEUROLOGY CONSULT NOTE SUBJECTIVE Reason for consult: Recommendations regarding serial punctate hemorrhage increase Primary Team: RST TCSANDRITA Trauma Neurology Supervising Bandsaw Operator: Dr. Ramez Vazquez HISTORY OF PRESENT ILLNESS: Mr. Carlos Alberto Grayson is a 83 y.o. male with no known medical history who was admitted for falling approximately 6 feet off a ladder on his left side c/b small intracranial hemorrhages (occipital horn ofthe left lateral ventricle, cortical left superior frontal lobe, and subarachnoid anterior left frontal lobe), left pelvic fractures with retroperitoneal and pelvic hemorrhage s/p ORIF 11/24, intramuscular hematomas in the left gluteus and iliopsoas muscles, nondisplaced left anterior sixth rib fracture. He has no memory of the events that led to his fall. Per reports, his has concerns of dementia, but has not seen a physician for further evaluation. He is reported to have poor short-term memoryand is unable to manage his finances independently. While hospitalized he has had difficulty with agitation and has required soft mitts and several doses of olanzapine for safety. He otherwise reports little pain and hasn't required opioids since 11/25. Geriatric medicine has been following and giving recommendations regarding behavior and delirium management. Neurosurgery has been following for his intracranial hemorrhages. On 11/23/2023, small foci of acute blood noted at occipital horn of the left lateral ventricle and small subcortical or foci of subarachnoid hemorrhage noted in anterior left frontal lobe. Repeat CT Head, hold DVT ppx, and blood pressure management were recommended. Repeat CT Head on 11/24/2023 showed slight interval increase in hemorrhage at occipital horn of left lateral ventricle was noted. Repeat [address] Head on 11/26/2023, showed new punctate focus of bleeding in the left superior frontal lobe. CT Head on 11/27/2023, continues to show increased number and of punctate foci of hemorrhage (superior left frontal lobe, right internal capsule superimposed on presumed calcifications within globus pallidus, left frontal convexitylikely subarachnoid hemorrhage, slightly decreased layering blood products in occipital horn of left lateral ventricle). Neurology was consulted regarding progression of punctate hemorrhages. Review of Systems: ROS as stated in the HPI, all other systems were reviewed and are negative Medications, allergies, past medical, surgical, social, and family history were reviewed in the chart and updated as appropriate. I have reviewed the current medication list. OBJECTIVE Temperature: [36.2 ??C-37.1 ??C] 36.2 ??C Heart Rate: [73-92] 73 Resp Rate: [17-21] 17 Blood Pressure: (74-135)/(34-72) 108/64 SpO2: [85 %-100 %] 97 % Flow Rate (L/min): [2 L/min-4 L/min] 2 L/min Pulse Rate: [53-143] 118 Physical Exam: Constitutional: well-developed, well-nourished, resting comfortably in bed Lungs: Breathing comfortably on room air. Abdomen: Soft, non-tender, non-distended. Skin: No rash on exposed skin. Cardiac: regular rate and rhythm Neurologic: Mental status: Alert and oriented to time, place and person. Brief Kokmen (without construction andcopying): (-3 orientation, -2 digit span, -2 immediate recall, -4 calculation, -3 abstraction, -3 delayed recall). Speech: Clear. Language: No evidence of aphasia. (Naming, reading, repetition and comprehension areintact.) Cranial nerves: PERRL, EOMI, visual muniz intact to confrontation, facial movements full and symmetric, sensation intact to light touch and pinprick in the V1-V3 distributions, hearing intact to voice, tongue protrudes in midline, there is equal elevation of the soft palate, shoulder shrug is appropriate in strength. Motor: Bilateral upper and lower extremity strength evaluated including: (R, L) deltoids (0,0), biceps (0,0), triceps (0,0), wrist extension (0,0), finger extension (0,0), interossei (0,0), iliopsoas(0,0), knee flexion (0,0), knee extension (0,0), ankle dorsiflexion (0,0), toe extension (0,0). Tone is normal in bilateral upper and lower extremities. Sensory: Sensation is intact to vibration, proprioception, pinprick of distal extremities bilaterally. Reflexes: biceps (0,0), triceps (0,0), brachioradialis (0,0), patellar (0,0) and Achilles (0,0). Plantar flexor responses are flexor-flexor. Gait: Deferred Diagnostics: CT HEAD (11/23/2023): Large left frontal scalp hematoma. No fracture. Small amount of layering blood products in the occipital horn of the left lateral ventricle. Small cortical hemorrhage versus focalsubarachnoid hemorrhage anterior left frontal lobe (series 6, image 184). Normal caliber ventricles. Chronic small vessel ischemic changes. Periapical lucencies about the left maxillary first molar and left mandibular first molar teeth. Incomplete fusion of the C1 posterior arch. Remainder negative. CT CERVICAL SPINE (11/23/2023): No fracture or traumatic findings within the cervical spine. Chronicchanges as noted. CT THORACIC SPINE (11/23/2023): No acute fracture identified within the thoracic or lumbar spine. CT LUMBAR SPINE (11/23/2023): No acute fracture identified within the thoracic or lumbar spine. CT HEAD (11/24/2023): 1. Slight interval increase in the previously noted dependent intraventricular hemorrhage involvingthe occipital horn of left lateral ventricle. 2. Punctate hyperdensity noted in the left frontal region on the prior study is again noted and possibly reflects a punctate cortical hemorrhage. 3. Mild asymmetric prominence of the extra-axial space over the left frontal convexity may reflect a small subdural effusion. CT HEAD (11/26/2023): 1. Possible new punctate focus of intraparenchymal hemorrhage in the superior left frontal lobe. Noother new intracranial hemorrhage. 2. Slightly decreased intraventricular hemorrhage in the left lateral ventricle. CT HEAD (11/27/2023): 1. Slightly increased number and conspicuity of punctate foci of intraparenchymal hemorrhage, for example in the superior left frontal lobe and right internal capsule. No appreciable mass effect. 2. Decreased layering blood products within the left lateral ventricle. I have reviewed the labs and diagnostics from admission. 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 Carlos Alberto Grayson is a 83 y.o. male with no known medical history who was admitted for falling approximately 6 feet off a ladder on his left side c/b small intracranial hemorrhages (occipital horn ofthe left lateral ventricle, cortical left superior frontal lobe, and subarachnoid anterior left frontal lobe), left pelvic fractures with retroperitoneal and pelvic hemorrhage s/p ORIF 11/24, intramuscular hematomas in the left gluteus and iliopsoas muscles, nondisplaced left anterior sixth rib fracture. He has no known medical history as he hasn't seen a physician in sometime. Based on history and record review ( having concerns about memory and difficulty with IADLs), he likely has a chronic major cognitive impairment which is supported by my brief Kokmen, however, this is likely confounded by an acute superimposed delirium. He is having worsening/new foci of intracranial hemorrhages on repeat CT Head imaging. Most likely secondary his initial trauma causing a combination of contracoup (right internal capsule) and direct(left occipital horn, left superior frontal lobe, left anterior frontal lobe) shear injury. Mechanism for possible delayed worsening/new bleeding could be from initial decrease in platelets. In addition, given his age group, concern for major cognitive impairment (Hx of Alzheimer's diseasein the family), another possible mechanism for delayed worsening of intracranial hemorrhage is the presence of a superimposed cerebral amyloid angiopathy. Generally, intracranial bleeding from CAA isspontaneous and lobar which is not consistent with his presentation. However, there are few case reports/studies about how traumatic intracranial hemorrhages behave in patient's with underlying CAA. Generally, avoidance of anticoagulation and aspirin in patients with CAA is recommended. Given this patient's acute DVT in the left soleal vein, determining presence of underlying CAA may be worthwhile. However, we would only recommend this if the patient is able to tolerate MRI given the patient's encephalopathy. With neurosurgery continuing to manage ICH, we will sign off at this time, but would be happy to assist if additional question arise. Recommendations: - Agree with geriatric medicine regarding aggressive nonpharmacologic delirium strategies and olanzapine prn for agitated behaviors not responsive to nonpharmacologic interventions. - Agree with neurosurgery regarding serial CT Head (next schedule 11/28) to assess for stability of intracranial hemorrhages and holding DVT chemoprophylaxis. - In order to assist with definitive/long-term AC management questions, may consider obtaining MRI Brain only if patient is able to tolerate to assess for superimposed CAA. Patient seen and discussed with our programmer analyst consultant Dr. Ramez Vazquez. We appreciate the consult. Please page [phone] with any questions regarding our recommendations. Josef Peraza M.D., M.E. 11/28/23 Associated attestation - Ramez Vazquez M.D. - 11/29/2023 4:10 PM CDT I reviewed the resident/fellow???s note. I agree with the resident/fellow???s findings and plan. With a history of dementing illness not fully characterized in the outpatient setting here following traumatic brain injury with associated intraparenchymal and intraventricular hemorrhage. CBCs at admission showed thrombocytopenia which has gradually corrected. Daily CT heads between November 21 and November 26 had shown grader conspicuity of largely petechial hemorrhages in the left frontal convexity, right internal capsule with decreasing hemorrhage in the leftoccipital horn. Repeat CT head today was stable. Due to the dynamic changes observed on the CT head performed between November 21 and November 26, the patient was not started on DVT chemoprophylaxis and a DVT performed yesterday showed an acute DVT in the soleal vein. Overall, the appearance and location of the hemorrhages appear consistent with his history of traumatic brain injury and an alternative etiology appears unlikely. The persistent dynamic changes observed initially could potentially be explained by his thrombocytopenia. It is hard to think of a specific neurologic condition that would account for this. Cerebral amyloid angiopathy is associated withincreased risk of lobar and subarachnoid hemorrhages but it is unclear whether it would result in persistent petechial hemorrhaging in the setting of traumatic brain injury. Still, could at some point consider obtaining an MRI of the brain with susceptibility weighted images to assess for the possibility of cerebral amyloid angiopathy which may affect risk of intracerebral bleeding in the future.Certainly, we do not think that he ought to be sedated to obtain this MRIs as overall this is low yield. If he is eventually discovered to have cerebral amyloid angiopathy, this would not necessarilybe a absolute contraindication for initiation of therapeutic anticoagulation and would not be a contraindication DVT chemoprophylaxis. Nonetheless, if he does have an MRI and there was concern for potential cerebral amyloid angiopathy, this should be discussed with Neurology. At this point we do not have any additional recommendations. #1 Major neurocognitive disorder due to a neurodegenerative condition, etiology unclear #2 Traumatic intracerebral hemorrhage with subarachnoid, intraparenchymal and intraventricular components #3 Encephalopathy, multifactorial #5 Thrombocytopenia * Raegan Drew P.T., D.P.T. - 11/26/2023 1:56 PM CDT Physical Therapy Acute Hospital Inpatient Evaluation/Treatment SUBJECTIVE Referring/Attending Provider: Jason Navarrete M.D. Patient's Name: Carlos Alberto Grayson Reason for Referral: PT eval and treat - brain consult Medical Diagnosis: 1. Fracture Ilium Closed Initial Left (HCC) 2. History Of Falling 3. Retroperitoneal Hematoma 4. Fracture Acetabulum Closed Initial Left (HCC) 5. Contusion Buttock Initial 6. Anemia 7. Subarachnoid Hemorrhage With Loss Of Conscious Initial (HCC) 8. Other Shock (Hemorrhagic Shock) (HCC) 9. Fracture Pelvis Multiple Closed With Stable Disruption Pelvis Ring Initial (HCC) 10. Dysphagia [R13.10] 11. Decline Cognitive [R41.81] 12. 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 Subarachnoid Hematoma Trauma Without Loss Of Consciousness Subsequent [S06.6X0D] 14. Lack Of Coordination [R27.9] 15. Other Abnormalities Of Gait And Mobility [R26.89] Onset Date: 11/23/23 Payor: / PERTINENT MEDICAL / SURGICAL HISTORY: Patient Active Problem List Diagnosis History Of Falling Subarachnoid Hematoma Trauma Without Loss Of Consciousness Subsequent Contusion Scalp Initial Fracture Rib One Open Initial Left Contusion Other Intra Abdominal Organs Initial Anemia Posthemorrhagic Acute (Blood Loss Anemia) Fracture Acetabulum Other Closed Initial Left (HCC) Fracture Pelvis Multiple Closed With Stable Disruption Pelvis Ring Initial (HCC) Fracture Ilium Closed Initial Left (HCC) Fracture Acetabulum Closed Initial Left (HCC) Encephalopathy Metabolic 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 No pertinent surgical history. History of Present Illness: Pt is an 83 year old male with no known medical history who presented to the hospital on 11/22 following a fall from approximately 6 feet off a ladder. He landed on his leftside and hit his head. He is amnesic to the events. Per his there are concerns that he may have dementia, but does not see a primary care physician. Trauma scans reeleaved: small amount of layering blood products in the occipital horn of the left lateral ventricle, small cortical hemorrhage versus focal subarachnoid hemorrhage anterior left frontal lobe, left pelvic fractures with associatedleft retroperitoneal hematoma, intramuscular hematomas involving the left gluteus and iliopsoas musc les and nondisplaced left anterior sixth rib fracture. Pt is s/p ORIF of the left acetabulum. See Hospital Admission History and Physical for full history of present illness. Precautions Weight Bearing Status: TTWB LLE Other Precautions: Fall risk, cognition Patient/Caregiver Goals: Pt goal to return home. Agreeable to PT eval Prior Function/Occupational Profile Dominant Hand: Right Lives With: Spouse ADL Assistance: Independent IADL/Homemaking Assistance: Independent Driving: Independent Occupational Role: Retired Leisure Interests: Pt reports he enjoys deer hunting. Prior Mobility/Functional Transfers Level of [place]: Independent Home Living Type of Home: House Home Layout: Multi-level, Able to live on main level with bedroom/bathroom, Full bath main level, Bedroom on main level Home Access: Stairs to enter with rails, Stairs to alternate level with rails Entrance Stairs: Rails: Both Entrance Stairs: Number of Steps: 3 Alternate Level Stairs: Rails: Both Alternate Level Stairs: Number of Steps: Full flight; pt reports he does not need to use Bathroom Shower/Tub: Tub/shower unit Tub/shower unit location: Main floor Tub/shower unit enclosure type: Curtain Bathroom Toilet: Standard Home Living Comments: Pt is a poor historian. Would recommend collaboration with family when able on home setup to optimize safety with discharge planning. Home Equipment Home Adaptive Equipment: None Bathroom Equipment: None Fall Risk (65 and older) Fall in the last 12 months: Yes Did you have an injury with the fall?: Yes Are you fearful of falling?: Yes OBJECTIVE Vitals: continuous monitoring in ICU, WNL Cognition Arousal/Alertness: Appropriate responses to stimuli Attention: Addressed, no concerns noted Initiation: No difficulty with initiation Orientation: Disoriented to place Following Commands: One Step Commands One Step Commands: Follows one step commands consistently, Follows one step commands with increasedtime, Follows one step commands with repetition Cognition Comments: Per chart review, questionable baseline cognitive deficits Activity Tolerance Endurance: Tolerates 10-20 minutes of activity Current Hearing Function: Hearing intact Baseline Vision/Correction: Wears glasses only for reading Current Vision Comments: Pt reports no changes in vision following the fall. Pt able to read clock on the wall without difficulties. Tracking within normal limits. Ocular Motility/Range of Motion Assessment Right Eye: Addressed, no concerns noted Ocular Motility/Range of Motion Assessment Left Eye: Addressed, no concerns noted Light Touch: No deficits ROM - Upper Extremity Screen: Addressed, no concerns noted ROM - Lower Extremity Screen: Impaired left ROM - Lower Extremity Screen Comments: Limited on LLE due to pain Strength - Upper Extremity Screen: Addressed, no concerns noted Strength - Upper Extremity Screen Comments: Grossly intact. Strength - Lower Extremity Screen: Impaired left Strength - Lower Extremity Screen Comments: Limited assessment due to LLE pain. Grossly intact on RLE. Static Sitting-Balance: Fair (Maintains balance with handheld/contact guard assistance) Dynamic Sitting-Balance: Fair (Maintains balance with handheld/contact guard assistance) Static Standing-Balance: Poor (Requires assistance to maintain balance) Dynamic Standing-Balance: Poor (Requires assistance to maintain balance) Therapeutic Activity Sit to Stand Transfers # of Assistants: 2 Transfer Surface: Chair Transfer Equipment: Gait belt, Front wheeled walker Level of Assistance: Moderate assistance, Minimal assistance Assessment/Delivery: Assessed, Instructed, Facilitated, Therapist assisted Comments: Patient required moderate assitance to complete transition to standing. Facilitation needed for weight shift and upright posture. Required hand over hand for placement of LUE onto fww. Despite verbal cues to stay over RLE, patient appeared to place significant weight through LLE. Recommend ceiling lift for additional transfers at this time to maintain TTWB due to patient's cognitive impairments. Stand to Sit Transfers # of Assistants: 2 Transfer Surface: Chair Transfer Equipment: Gait belt, Front wheeled walker Level of Assistance: Minimal assistance, Moderate assistance Assessment/Delivery: Instructed, Assessed, Therapist assisted, Facilitated Comments: Provided physical assistanc to return to sitting, guding hips back to chair. Patient/Family Education: Provided education on role of physical therapy in the acute PT setting and rationale behind given interventions. Collaborated with patient and/or family on goals and plan ofcare. Provided education on TTWB precautions for LLE to allow proper healing, although patient willrequire increased repetition due to cognitive impairments. At the end of today's therapy session patient was left seated in bedside chair 1:1 staff present with an appropriate call light within reach. Patient's needs and questions addressed during today's session. Assessment Carlos Alberto Grayson is a 83 y.o. presenting on 11/22 following a fall from approximately 6 feet off a ladder. He landed on his left side and hit his head. He is amnesic to the events. Per his there are concerns that he may have dementia, but does not see a primary care physician. Pt is s/p ORIF of theleft acetabulum, TTWB on LLE for 12 weeks per op note. Patient was previously independent without assistive device for all mobility and functional transfers. He currently presents with cognitive impairments, decreased strength on LLE, balance deficits, decreased activity tolerance, and functional mobility deficits. Patient required moderate assitance x2 to complete transition to standing using a fww. Required hand over hand for placement of LUE onto fww. Despite verbal cues to stay over RLE, patient appeared to place significant weight through LLE. Recommend ceiling lift for additional transfers at this time to maintain TTWB due to patient's cognitive impairments. Patient continues to function below baseline and is at increased risk for falls. He will benefit from ongoing skilled physical therapy to continue to progress functional mobility, strength and activity tolerance, provide education and maximize safety prior to discharge. For a safe dismissal home, patient will require their current level of assist provided by capable caregiver(s), otherwise will need to look into post-acute rehabilitation options. How these needs aremet after hospitalization would be best determined in collaboration with the patient/family and ourcare management team. Rehab Potential: Mr. Grayson has Fair potential to achieve established physical therapy goals within the time frame outlined below. Barriers to a safe discharge home: Barriers to Discharge Home: Current functional status, Fall risk, Safety concerns Comorbid Conditions: None Personal Factors: Age, Balance impairment, History of falls, Needs assistive device Discharge Therapy Needs - PT: Ongoing skilled physical therapy Level of Care Needed - PT: Assistance with bed mobility, Assistance with transfers (Comment), Assistance with walking and moving around the home, Assistance with stairs, Physical assistance needed, Cognitive assistance needed Skilled therapy can include physical therapy provided by home health, outpatient clinic, or a post-acute facility. The location of these services is determined by the patient's care team in partnership with patient/family. Functional Goals and Timeframes: PT Goal #1: Patient will demonstrate independence with supine to/from sit transfer without use of hospital bed features to progress functional mobility and return to prior level of function. PT Goal #1 Status: Progressing PT Goal #2: Patient will demonstrate functional transfers with moderate assitance with least restrictive assistive device while maintaining TTWB on LLE to progress functional mobility and facilitate return to prior level of function. PT Goal #2 Status: Progressing PT Goal #3: Patient will ambulate 10ft or greater with least restrictive assistive device while maintaining TTWB on LLE with minimal assistance in order to progress functional mobility and facilitatereturn to prior level of function. PT Goal #3 Status: Progressing Plan Patient agrees with the plan of care and goals. Treatment Plan: PT Frequency: 5 times per week PT Amount: 1 visit per day PT Inpatient Duration : Until goals are met or hospital discharge Plan: Plan of care initiated PT Plan Comments: Skilled physical therapy to promote safety and independence with functional mobility, decrease fall risk, determine appropriate durable medical equipment needs, and aid with discharge planning Treatment interventions may include: Treatment/Interventions: Therapeutic exercise, Therapeutic functional activity, Neuromuscular re-education, Gait training Clinical Presentation: Unstable Number of Examination elements: 4+ Clinical Decision Making: High complexity clinical decision making Time Spent with Patient Evaluations PT Eval - High Complexity: 10 min Therapeutic Interventions Therapeutic Activity (min): 14 min Time Tracking Total Timed Units (min): 14 min Total Treatment Time (min): 24 min Raegan Drew P.T., D.P.T. * Rebecca Diana O.T., O.T.D. - 11/26/2023 1:31 PM CDT Occupational Therapy Acute Hospital Inpatient Evaluation/Treatment SUBJECTIVE Referring/Attending Provider: Jason Navarrete M.D. Patient's Name: Carlos Alberto Grayson Medical Diagnosis: 1. Fracture Ilium Closed Initial Left (HCC) 2. History Of Falling 3. Retroperitoneal Hematoma 4. Fracture Acetabulum Closed Initial Left (HCC) 5. Contusion Buttock Initial 6. Anemia 7. Subarachnoid Hemorrhage With Loss Of Conscious Initial (HCC) 8. Other Shock (Hemorrhagic Shock) (HCC) 9. Fracture Pelvis Multiple Closed With Stable Disruption Pelvis Ring Initial (HCC) 10. Dysphagia [R13.10] 11. Decline Cognitive [R41.81] 12. 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 Subarachnoid Hematoma Trauma Without Loss Of Consciousness Subsequent [S06.6X0D] 14. Lack Of Coordination [R27.9] Onset Date: 11/23/23 Payor: / PERTINENT MEDICAL / SURGICAL HISTORY: Patient Active Problem List Diagnosis History Of Falling Subarachnoid Hematoma Trauma Without Loss Of Consciousness Subsequent Contusion Scalp Initial Fracture Rib One Open Initial Left Contusion Other Intra Abdominal Organs Initial Anemia Posthemorrhagic Acute (Blood Loss Anemia) Fracture Acetabulum Other Closed Initial Left (HCC) Fracture Pelvis Multiple Closed With Stable Disruption Pelvis Ring Initial (HCC) Fracture Ilium Closed Initial Left (HCC) Fracture Acetabulum Closed Initial Left (HCC) Encephalopathy Metabolic 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 No pertinent surgical history. History of Present Illness: Pt is an 83 year old male with no known medical history who presented to the hospital on 11/22 following a fall from approximately 6 feet off a ladder. He landed on his leftside and hit his head. He is amnesic to the events. Per his there are concerns that he may have dementia, but does not see a primary care physician. Trauma scans reeleaved: small amount of layering blood products in the occipital horn of the left lateral ventricle, small cortical hemorrhage versus focal subarachnoid hemorrhage anterior left frontal lobe, left pelvic fractures with associatedleft retroperitoneal hematoma, intramuscular hematomas involving the left gluteus and iliopsoas musc les and nondisplaced left anterior sixth rib fracture. Pt is s/p ORIF of the left acetabulum. See Hospital Admission History and Physical for full history of present illness. Precautions Weight Bearing Status: TTWB LLE Other Precautions: Fall risk, cognition Patient/Caregiver Goals: Pt goal to return home. Patient Comments: Pt agreeable to OT session. Prior Function/Occupational Profile Dominant Hand: Right Lives With: Spouse ADL Assistance: Independent IADL/Homemaking Assistance: Independent Driving: Independent Occupational Role: Retired Leisure Interests: Pt reports he enjoys [employer] hunting. Prior Mobility/Functional Transfers Level of [place]: Independent Home Living Type of Home: House Home Layout: Multi-level, Able to live on main level with bedroom/bathroom, Full bath main level, Bedroom on main level Home Access: Stairs to enter with rails, Stairs to alternate level with rails Entrance Stairs: Rails: Both Entrance Stairs: Number of Steps: 3 Alternate Level Stairs: Rails: Both Alternate Level Stairs: Number of Steps: Full flight; pt reports he does not need to use Bathroom Shower/Tub: Tub/shower unit Tub/shower unit location: Main floor Tub/shower unit enclosure type: Curtain Bathroom Toilet: Standard Home Living Comments: Pt is a poor historian. Would recommend collaboration with family when able on home setup to optimize safety with discharge planning. Home Equipment Home Adaptive Equipment: None Bathroom Equipment: None Fall Risk (65 and older) Fall in the last 12 months: Yes Did you have an injury with the fall?: Yes Are you fearful of falling?: Yes OBJECTIVE Pain: Pt reports un-rated pain at surgical site throughout therapy session. Vitals: Continuous ICU monitoring. Cognition Cognitive assessment method: Therapist observations Arousal/Alertness: Appropriate responses to stimuli Attention: Addressed, no concerns noted Initiation: No difficulty with initiation Orientation: Disoriented to place Following Commands: One Step Commands One Step Commands: Follows one step commands consistently, Follows one step commands with increasedtime, Follows one step commands with repetition Cognition Comments: Per chart review, questionable baseline cognitive deficits Balance Static Sitting-Balance: Fair (Maintains balance with handheld/contact guard assistance) Dynamic Sitting-Balance: Fair (Maintains balance with handheld/contact guard assistance) Static Standing-Balance: Poor (Requires assistance to maintain balance) Dynamic Standing-Balance: Poor (Requires assistance to maintain balance) Coordination Overall Coordination: Movements are fluid and coordinated Finger to Nose Test (Dysmetria): Addressed, no concerns noted Finger to Finger Test (Dysmetria): Addressed, no concerns noted Activity Tolerance Endurance: Tolerates 10-20 minutes of activity Baseline Vision/Correction: Wears glasses only for reading Current Vision Comments: Pt reports no changes in vision following the fall. Pt able to read clock on the wall without difficulties. Tracking within normal limits. Ocular Motility/Range of Motion Assessment Right Eye: Addressed, no concerns noted Ocular Motility/Range of Motion Assessment Left Eye: Addressed, no concerns noted Light Touch: No deficits Current Hearing Function: Hearing intact ROM - Upper Extremity Screen: Addressed, no concerns noted ROM - Lower Extremity Screen: Impaired left ROM - Lower Extremity Screen Comments: Limited on LLE due to pain Strength - Upper Extremity Screen: Addressed, no concerns noted Strength - Upper Extremity Screen Comments: Grossly intact. Strength - Lower Extremity Screen: Addressed, no concerns noted Strength - Lower Extremity Screen Comments: See PT for greater details. Gross Hand Function Right Hand Gross Grasp: Functional Left Hand Gross Grasp: Functional Right Hand Coordination: Functional Left Hand Coordination: Functional *Difficulty with command following throughout evaluation testing. Will continue to monitor throughout therapy course for additional deficits and modify plan of care as needed. Sit to Stand Transfers # of Assistants: 2 Transfer Surface: Chair Transfer Equipment: Gait belt, Front wheeled walker Level of Assistance: Minimal assistance, Moderate assistance Assessment/Delivery: Assessed, Instructed, Facilitated, Therapist assisted Comments: Patient required minimal-moderate assitance for sit to stand. Hand over hand for placement of LUE onto walker. Despite verbal cues to stay over RLE, patient appeared to place significant weight through LLE. Recommend ceiling lift for additional transfers at this time to maintain TTWB due to patient's cognitive impairments. Stand to Sit Transfers # of Assistants: 2 Transfer Surface: Chair Transfer Equipment: Gait belt, Front wheeled walker Level of Assistance: Minimal assistance, Moderate assistance Assessment/Delivery: Instructed, Assessed, Therapist assisted, Facilitated Patient/Family Education: Role of OT, rational for therapy intervention At the end of today's therapy session patient was left seated in bedside chair 1:1 staff present with an appropriate call light within reach. Patient's needs and questions addressed during today's session. Assessment Pt is an 83 year old male with no known medical history who presented to the hospital on 11/22 following a fall from approximately 6 feet off a ladder. He landed on his left side and hit his head. He is amnesic to the events. Per his there are concerns that he may have dementia, but does not seea primary care physician. Trauma scans reeleaved: small amount of layering blood products in the occipital horn of the left lateral ventricle, small cortical hemorrhage versus focal subarachnoid hemorrhage anterior left frontal lobe, left pelvic fractures with associated left retroperitoneal hematoma, intramuscular hematomas involving the left gluteus and iliopsoas muscles and nondisplaced left anterior sixth rib fracture. Pt is s/p ORIF of the left acetabulum. At baseline, pt reports being independent with all ADL, IADL and mobility tasks. Due to cognitive deficits, pt previous baseline accuracy is unknown. Will modify plan of care upon additional conversation with family as appropriate. Pt presents to therapy evaluation below baseline with deficits noted in strength, activity tolerance, balance, new weight bearing restrictions, and cognition impactingADL/IADL performance. During session, pt completed sit to stand with use of walker and moderate assistance x2, however despite verbal cues to stay over RLE, patient appeared to place significant weight through LLE. Recommend ceiling lift for additional transfers at this time to maintain TTWB due to patient's cognitive impairments. Rehab services are directly related to a doctors order and are reasonable and necessary due to pt medical condition and multiple complexities. Without therapy, pt is at risk for increased caregiver burden, poor quality of life and further injury. Due to pt medical complexities, it is unlikely s/he would make a spontaneous recovery without the intervention of skilled therapy making it therefore indicated. All of the above and previously listed impairments (please see EMR for further detail) significantly impact pt ability to safely and independently complete activities of daily living and mobility. Patient requires skilled occupational therapy services to address listed deficits and to maximi ze safety and independence with ADLs, functional mobility, and home management tasks Rehab Potential: Mr. Grayson has good potential to achieve established occupational therapy goals within the time frame outlined below. Barriers to Discharge Home: Current functional status, Fall risk, Safety concerns Comorbid Conditions: None Personal Factors: Age, Balance impairment, History of falls, Needs assistive device Discharge Therapy Needs - OT: Ongoing skilled occupational therapy Level of Care Needed - OT: Assistance with toileting, Assistance with toilet/shower transfers, Assistance with medication set up/administration, Assistance with showering/bathing, Assistance with eating/feeding, Assistance with dressing, Assistance with meal preparation, Assistance with financial ma nagement, Assistance with transportation, Assistance with housekeeping, Assistance with shopping, Cognitive assistance needed, Physical assistance needed Skilled therapy can include occupational therapy provided by home health, outpatient clinic, or a post-acute facility. The location of these services is determined by the patient's care team in partnership with patient/family. Recommended Adaptive Equipment - OT: Other (Comment) (Ongoing assessment) Functional Goals and Timeframes: OT Goal #1: STG: By goal review date, pt will complete transfer to/from the commode with least restrictive transfer device and moderate physical assistance. OT Goal #2: STG: By goal review date, pt will complete one simple grooming task from seated base with setup assistance. OT Goal #3: LTG: By discharge, pt and caregivers will demonstrate understanding of all adaptive equipment recommendations for home going in order to maximize safety and independence with ADL/IADL tasks. Progress: Progressing toward goals Plan Patient agrees with the plan of care and goals. Treatment Plan: OT Frequency: 5 times per week OT Amount: 1 visit per day OT Inpatient Duration : Until goals are met or hospital discharge Plan: Plan of care initiated OT Plan Comments: Next Session: Progress standing and functional transfers, simple ADL, seated balance Treatment interventions may include: Treatment Interventions: Therapeutic exercise, Therapeutic functional activity, Neuromuscular re-education, Self-care/home management, Cognitive skills training Occupational Profile and History review: Expanded Performance Deficits: 3 - 5 performance deficits Evaluation Complexity: Moderate Time Spent with Patient Evaluations OT Eval - Mod Complexity: 15 min Therapeutic Interventions Therapeutic Activity (min): 10 min Time Tracking Total Timed Units (min): 10 min Total Treatment Time (min): 25 min Hanna Diana O.T., O.T.Demetrius * Destiney Bundy M.A., O.T., O.T.D., [facility] [place] - 11/26/2023 12:12 PM CDT Occupational Therapy Dysphagia Evaluation/Treatment SUBJECTIVE Patient's Name: Carlos Alberto Grayson Referring/Attending Provider: Jason Navarrete M.D. Medical Diagnosis: Anemia [D64.9] Contusion Buttock Initial [S30.0XXA] Subarachnoid Hemorrhage With Loss Of Conscious Initial (HCC) [S06.6X9A] Fracture Acetabulum Closed Initial Left (HCC) [S32.402A] Fracture Ilium Closed Initial Left (HCC) [S32.302A] History Of Falling [Z91.81] Other Shock (Hemorrhagic Shock) (HCC) [R57.8] Retroperitoneal Hematoma [K68.3] Reason for Referral: Reason for Referral: Occupational Therapy Evaluate and Treat for Dysphagia, referred by Charlotte Ordaz APRN, C.N.P., D.N.P. 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 No pertinent surgical history. History of Present Illness:History of Present Illness: Referred for dysphagia due to RN observing the patient coughing on crushed meds with puree yesterday and overnight. Per EMR: Pt is an 83 year old male with no known medical history who presented to the hospital on 11/22 following a fall from approximately 6 feet off a ladder. He landed on his left side and hit his head. He is amnesic to the events. Per his there are concerns that he may have dementia, but does not see a primary care physician. Trauma scans reeleaved: small amount of layering blood products in the occipital horn of the left lateral ventricle, small cortical hemorrhage versus focal subarachnoid hemorrhage anterior leftfrontal lobe, left pelvic fractures with associated left retroperitoneal hematoma, intramuscular hematomas involving the left gluteus and iliopsoas muscles and nondisplaced left anterior sixth rib fracture. Pt is s/p ORIF of the left acetabulum. Family/Caregiver Present: No Patient/Caregiver Goals: Resume eating and drinking Patient Comments: The patient agrees to work with OT and repeats questions several times throughoutthe session (e.g. asks the OT what nationality are you? x3 throughout the course of the visit). Precautions Weight Bearing Status: TTWB LLE Other Precautions: Fall risk, cognition, aspiration OBJECTIVE Respiratory function: O2 via nasal cannula, respirations 16 breaths per minute Baseline Assessment: Mental Status: Alert, Confused Dysphagia: Suspected needs further assessment, Mild pharyngeal stage dysphagia Temperature Spikes Noted: No Respiratory Status: O2 via nasal cannula (2L O2) History of Intubation: Yes Length of Intubations (days): (<1 day for ORIF procedure) Date extubated: (11/26/23) Premorbid Nutrition Method: Oral Premorbid Liquid Diet: IDDSI Level 0 Thin Premorbid/Current Diet: IDDSI Level 7 Regular Premorbid Med Administration: Whole with liquid Current Nutrition Method: NPO Current Med Administration: Crushed in puree Baseline Vocal Quality: Normal Volitional Cough: Strong Volitional Swallow: Within Normal Limits (WNL) Clinical Dysphagia: Oral / Motor Dentition: Adequate Labial ROM: Within Normal Limits (WNL) Labial Symmetry: Within Normal Limits (WNL) Labial Strength: Within Normal Limits (WNL) Lingual ROM: Within Normal Limits (WNL) Velum: (0) Within Normal Limits (WNL) Mandible Strength: (0) Within Normal Limts Facial Symmetry: (0) Within Normal Limits Facial Sensation: (No deficits observed, patient denies changes to sensation) Gag Left: Reduced/absent Gag Right: Reduced/absent Cough: (0) Within Normal Limts Clinical Dysphagia Patient Position in Swallow Study: Chair Liquids: Level 2 Mildly Thick Solids: Level 6 Soft & Bite-Sized, Level 4 Puree, Level 7 Regular Level 2 Mildly Thick Presentation: (Spoon, cup) Airway Protection: (No response) Level 4 Puree Type of Puree Presented: Pudding Presentation: Spoon Airway Protection: (No response) Level 6 Soft & Bite-Sized Type of Solid Presented: Other (Comment) (chopped peaches) Presentation: Patient / caregiver Airway Protection: (No response) Level 7 Regular Type of Solid Presented: Cracker Presentation: Patient / caregiver Airway Protection: (No response) Compensatory Strategies Utilized in Exam: (Liquid wash of MT2 per patient's request) Impressions (Retire) Risk for Aspiration: (Mild to moderate) Aspiration Risk Risk for Aspiration: (Mild to moderate) Functional Oral Intake Scale score: Quality of Life for Eating: Strongly Agree OT dysphagia treatment: OT included the patient and floor RN in education to support the patient in carryover of recommendations. Educated patient and/or caregiver on diet recommendations Educated patient and/or caregiver on compensatory techniques Educated patient and/or caregiver on aspiration precautions Educated patient on the importance of oral cares 3-5x/day Does the patient have a tracheostomy? No. Team Communication: Patient's nurse was contacted and patient's status was discussed, Primary service was contacted and patient's status was discussed Patient was left in bedside chair at end of session with RN and AUTOMATIC LEHR OPERATOR present, needs met and questions answered. Assessment Dysphagia Consult Assessment: Time Dysphagia Assessment Completed: 12:00pm Clinical Impression: Mr. Grayson participated in a clinical bedside dysphagia evaluation on 11/26/2023 to assess safety with oral intake/risks for aspiration. Factors contributing to aspiration risk include: cognitive impairment, decreased activity tolerance, and staff observations x2 of the patient coughing on meds crushed with puree since hospital admission. Dysphagia Clinical Assessment: The patient participated in a clinical dysphagia evaluation this date to assess safety with oral intake/ risks for aspiration. The patient is currently maintaining safeoxygen saturations and respirations on room air. Volitional cough and throat clear observed to be strong. Physical examination of the oral mechanism revealed facial symmetry at rest. Tracheal cartilage in midline and laryngeal rise present on palpation. Oral motor examination of the tongue, lips, cheeks, and jaw was observed to be adequate. Velar rise was symmetric and bilateral on phonation. Patient demonstrated fair respiratory control with prolonged vowel of 10 seconds (normal 14-20sec). Kadi ent stated no reported history of oral, pharyngeal, or esophageal dysphagia. The patient participated in oral trials of thin liquids, puree and solid consistencies resulting in no observable signs ofaspiration/ penetration. The patient took large consecutive sips of liquids when drinking from a cup and benefited from prompts to pace himself. Nursing reports the patient coughed on medications crushed with puree last night and yesterday. No difficulty observed with any consistency today. The patient does present with left upper extremity weakness consistent with his fall. He loads utensils as full as possible with puree and soft solid foods. While he has no signs of aspiration with thin liqui ds and had good oral control of a regular texture food, a conservative diet is recommended due to multiple factors of cognition, difficulty self-pacing bites and sips, and incongruence between this assessment and staff observations of difficulties swallowing. Recommending patient begin on an oral diet of Soft and Bite-Sized SB(6) and Mildly Thick MT(2) with meds crushed in puree. He will need 1:1assist for oral intake, aspiration precautions, and success with medications can be supported by 1.offering small sips of MT2 liquids prior to meds to prime the swallow and 2. mixing crushed meds into puree to ensure no dry powder Patient is below their functional baseline with swallowing function and skilled dysphagia services are medically necessary for this patient to safely progress oral intake. Re: Dysphagia recommendations after bedside assessment. DIET RECOMMENDATIONS: Diet Recommendations - Solids: IDDSI Level 6 Soft & Bite-Sized Diet Recommendations - Liquids: IDDSI Level 2 Mildly Thick Recommended Form of Meds: Crushed (per physician/pharmacy approval), With puree Transitional foods allowed: Recommendations: Dysphagia treatment, Other (Comment) (Proceed to modified barium swallow study if any more instances of coughing on conservative textures are observed) Patient would benefit from a video swallow study Recommended Aspiration Precautions: -Watch closely for signs of aspiration, -Eat small bites, take small sips, eat slowly, -Sit upright with all oral intake and when completing oral cares Recommended Compensation Techniques/Adaptive Equipment: -Requires supervision/assistance to take small bites and sips -For medications: -Offer small sips of MT2 liquids prior to meds to prime the swallow -Mix crushed meds into puree to ensure no dry powder -Compensations for cognitive impairment -Ensure a calm, distraction free environment, -Assistance with feeding should be provided in an unhurried manner, -Sit down near the patient when assisting with feeding whenever possible Positioning Recommendations: Upright as possible for all oral intake Recommendations for safe oral cares are as follows: Rehab potential: Mr. Grayson has good potential to achieve established occupational therapy goals within the time frame outlined below. Functional Goals and timeframes: Goal #1: Dysphagia: Patient will tolerate safe and adequate nutrition/hydration on least restrictive diet possible. Goal #2: Dysphagia: Patient and/or caregiver will demonstrate compensatory techniques and aspiration precautions recommended above with all oral intake. Plan Dysphagia Consult Plan: Patient agrees with the plan of care and goals. Treatment Interventions: Swallow dysfunction treatment OT Dysphagia Duration: Until goals are met or hospital duration OT Dysphagia Frequency: 4 times per week Inpatient OT Dysphagia Received On Date: 11/26/23 OT - Next Inpatient Dysphagia Appointment: 11/27/23 Plan: Plan of care initiated Re-evaluate: As clinically indicated Treatment interventions may include: Plan for Next Session: Observe a meal, Check diet orders for accuracy, Assess readiness for diet upgrade Time Spent with Patient Evaluations Clinical Dysphagia Evaluation (min): 40 min Therapeutic Interventions Swallow Dysfunction Treatment (min): 10 min Time Tracking Total Treatment Time (min): 50 min For any questions feel free to page OT dysphagia Tuesday through Tuesday 7:00am to 4:00pm: Our service pager at [facility]: #[phone] Our service pager at [facility]: #[phone] * Alyson Bueno L.G.S.W., M.S.W. - 11/25/2023 11:02 AM CDT Psychosocial Assessment SUBJECTIVE Assessment Information Referral Source: CM/SW Referral Referral Reason: Psychosocial assessment, Coping, adjustment and support Primary Language: Luxembourgish Divorce Lawyer Services Used: No Sexuality/Pronoun: / Person(s) present during interview: spouseJeralbine Disclaimer: They were advised of the various topics that will be assessed during this evaluation. They consented to proceed. The information provided in the assessment is based on review of the medical record as well as the face to face interview. They were advised that the content of this interview will be shared with the health care team and documented in the medical record. They were advised that anyone with access to their patient portal will have access to this information. It was discussed that staff are mandated reporters and they reported understanding. History of Present Illness #1 Fracture Ilium Closed Initial Left (HCC) Ramon shares they heard the patient calling for help and witnessed them laying on the ground next to their large ladder. Patient claims they were not climbing on the ladder. Patient is currently on [facility] Trauma Critical Care and General Surgery service on 7B for fracture ilium closed initial left. Social History Early Growth and Development: The patient met social and developmental milestones as expected. Citizenship: [place] 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 Psychosocial Risk Factors Impacting the Patient: trauma/stress Maltreatment: none reported Trauma: social services aide had conversation regarding current trauma Current Stressors Current hospitalization and medical condition Coping Skills/Strengths Restorationist Marcus Campbell Financial/Insurance Primary insurance: N/A Secondary insurance: N/A Social work informed Ramon the the patient does not appear to have insurance on file at this time Advance Directives Legal Decision Maker: Self Advance Directives: N/A Advance Directives Status: Not completed Baseline Functional Status Baseline Activities of Daily Living Mobility: Independent Dressing: Independent Feeding: Independent Bathing: Independent Grooming: Independent Toileting: Independent Behavior: Other (comment) (In OR) Communication: Other (Comment) (In OR) Shopping: Independent Medication Management: Independent Housekeeping: Independent Meal Prep: Independent Assistive Devices: Hearing aid(s) Transportation: Independent to drive Managing Finances: Independent Baseline Services/Resources Primary care clinic and provider: PCP through [facility] [place] Additional Resources: [facility] Anticipated Needs Patient's anticipated needs unknown at this time OBJECTIVE Substance Abuse no symptoms Mental Health Mental Health History: Ramon does not share a formal mental health diagnosis Suicide Risk and Safety Risk Assessment: Unable to assess patient's suicide risk at this time Homicidal: unable to assess Mental Status Unable to assess patient's mental status at this time Review of Psychiatric Symptoms: Unable to assess patient's psychiatric symptoms at this time Other Mental Health Assessments No additional mental health assessments completed at this time ASSESSMENT / PLAN Discussion Social work met with patient's , Ramon, to provide support and complete a psychosocial assessment. Introduced self and reviewed the role of an inpatient social services aide. Ramon expressed understanding and was agreeable to the visit. For the purpose of this assessment, Ramon appears to be a reliable historian. Ramon shares they heard the patient calling for help and witnessed them laying on the ground next to their large ladder. Patient claims they were not climbing on the ladder. Patient is currently on [facility] Trauma Critical Care and General Surgery service on [facility] 7B for fracture ilium closed initial left. Prior to hospitalization, Ramon shares she and the patient live in an old farmhouse with steep stairs and the bedrooms on the second floor. Patient is independent in their ADLs/IADLs and continues to remain active; patient utilizes hearing aides. Ramon did not express current concerns with patient's mental health, self-harm, abuse, neglect, alcohol use, or drug use. Patient enjoys Restorationist music and the Bible. Ramon shares from previous RN experience working a memory care, the patient's memory issues have declined over the past several months. Ramon expressed concerns the patient may have stage 2 or 3 dementia at this time and would like [place] to provide a formal dementia diagnosis. Social work discussed the importance of utilizing primary care for a dementia diagnosis- Ramon shares she has attempted several times and the patient will call and cancel each appointment however [facility] Ramon and express concerns the patient does not appear to understand their ongoing medical care and request Ramon to explain what is going on to the patient. Social work informed Ramon they will share this information during rounds. Discharge planning not discussed. Ramon shared she is concerned for ongoing care after surgery and if the patient will return to baseline. As a RN she understands only time will tell however this is something that is weighing on her; social work provided empathic support. Social work encouraged Ramon to reach out if have additional questions, concerns, or would like to process patient's hospitalization. Assessment/Impressions Patient is an 83-year-old male admitted on 11/23/2023. Patient not assessed due to being in OR. Ramon is pleasant, cooperative, and engaged in conversation. Ramon appears involved in patient's care and an appropriate advocate for the patient. Interventions A comprehensive assessment was completed utilizing solution focused discussion with a strengths based approach Plan Social work will provide support as appropriate Melissa Ochoa., M.S.W. 11/25/2023 * Major Romero M.D. - 11/24/2023 4:14 PM CDTAssociated Order(s): Physical Medicine and Rehabilitation consult (hospital) SUBJECTIVE REASON FOR CONSULT Physical Medicine and Rehabilitation consult (hospital) Referring Provider: Hilda Carranza APRN, C.N.P., M.S.N. Reason for Consult: New TBI HISTORY OF PRESENT ILLNESS Mr. 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 [facility]; she is a retired nurse. He has a limited known past medical history although medical notes indicate he likely had dementia, BPH, hearing impairment, and macular degeneration. He reportedly needed help with things like finances but was independent with most ADLs and IADLs. The patient had a fall off a ladder while attempting to repair a leak in the roof on November 23, 2023. He reportedly fell about 6 ft onto his left side striking his head. EMS was called; his initial GCS was reported to be 13. It is not entirely clear if there was a loss of consciousness. He was emergently brought to the [facility] where he had a trauma evaluation. His GCS was listed as 14. A CT of his head showed a large left frontal scalp hematoma without fracture, small amountof layering blood products in the occipital horn of the left lateral ventricle, and small cortical hemorrhages versus focal subarachnoid hemorrhage of the anterior left frontal lobe. Neurosurgery was consulted; no surgical intervention was felt indicated. Mr. Grayson also suffered a left pelvic fracture with complex involvement of the acetabulum; his left leg is currently immobilized with a traction pin and he is scheduled for surgical fixation tomorrow. Additional injuries include hematomas of the left gluteus and iliopsoas muscles as well as nondisplaced left anterior 6th rib fracture. The patient was admitted to the ICU; is requiring restraints as he has been quite agitated at times. He currently is being managed with Zyprexa 2.5 mg every 6 hours as needed. Geriatrics has made additional recommendations to manage his delirium and TBI agitation; these include non pharmacological strategies in addition to antiepileptics and ramelteon and suvoexant at bedtime to facilitate normalcircadian rhythm. OBJECTIVE PHYSICAL EXAMINATION General: 83-year-old gentleman who currently is resting in bed; has a traction pin in the left femur and his other 3 extremities are restrained with soft restraints. Neuro: Alert and able to follow commands. He currently is not particularly restless or agitated nursing indicates he got Zyprexa earlier. He appears to have fairly normal motor function and intact sensation to light touch. It is very difficult to do a cognitive assessment as his speech is not entirely clear; he mumbles or tucks gibberish at times. He is able to tell me that he had a fall. 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 Grayson has reportedly been in fairly good health except for declining cognitive status; his is currently not here to discuss further. His current agitation and cognitive impairments are likely multifactorial with contributing factors being previous dementia, delirium secondary to pain and excessive ICU stimulation, and his traumatic brain injury. The plan for managing his agitation includes nonpharmacological measures such as limiting stimulation as much as possible, pain management,and medications as outlined by Geriatrics. Mr. Grayson is scheduled for surgery tomorrow for his left pelvic/acetabular fracture. Physical and Occupational therapy will subsequently began their evaluations in regards to mobility and self cares. Speech pathology should also be involved in the near future for cognitive assessment. The PM&R brain consult Service follow to assess the patient's ongoing therapy and rehabilitation needs. * Rae Coello M.D. 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 Per collateral history from Mik[facility], Mr. Grayson has known chronic cognitive impairment with significant short term memory impairments and inability to manage his own finances independently, but he otherwise is capable of managing most IADLs and ADLs. He has a strong family history of dementia with parents and all siblings developing dementia in late life. His pattern likely represents an etiology of Alzheimers given his family history and prominent amnestic component relative to executive function. He was admitted following a fall off his ladder while attempting to repair a leak on his roof. Injuries sustained include intraventricular hemorrhage, SAH, and left pelvis fracture with complex involvement of the acetabulum that warrants surgical intervention. Via bedside exam and history from nursing and the primary team, he meets CAM criteria for acute delirium with fluctuations between hyperactive (pulling at lines and tubes) to hypoactive (sleepy) level of arousal. Complicating factors also include baseline vision impairment (macular degeneration), hearing impairment (hearing aids at home), and acute immobility (femur in traction). # Major neurocognitive disorder, most likely due to Alzheimer dementia, FAST 4 # Acute metabolic encephalopathy (delirium) RECOMMENDATIONS: As would be expected considering his day-to-day routine and hobbies post- senior living constantly working at things with his hands, he continues this pattern in the hospital while delirious Nonpharmacologic strategies are first line in delirium, and we discussed as a team how we might deploy purposeful activities for him to use his hands or fidget with items in a productive way that is not harmful, and thus minimize unproductive fidgeting with lines/tubes/etc Consider removing his Rosado to avoid a traumatic removal, and manage with I/O caths prn Start tamsulosin per 's collateral history of BPH For agitated behavior posing risk of harm to self/others that is not responsive to nonpharmacological interventions, prn low dose quetiapine (12.5-25 mg) or olanzapine (2.5 mg po/ODT or IM if unable to take po) could be considered Pain is probably one of many precipitants of his delirium; consider low dose hydromorphone oral liquid solution 0.5-1 mg q 3 prn for non-verbal pain scores >4 Recommend initiating ramelteon 8 mg, and low-dose suvorexant 5 mg to optimize circadian rhythm, andwe can taper/adjust dosing based on his response From the standpoint of optimizing physical function and delirium management outcomes, agree with plans to proceed with operative repair of his fracture Please refer to Mr. Fitzpatrick's note dated today for additional details about our team's plan of care. * Naveed Higuera M.D. - 11/24/2023 9:10 AM CDT REASON FOR CONSULT: Fall from height. DATE OF INJURY: November 23, 2023. HISTORY OF PRESENT ILLNESS Mr. Grayson is an 83-year-old male with a past medical history significant for cognitive decline who sustained a fall presumably from a ladder at about 1 p.m. yesterday. The history was obtained entirely from review of the patient's medical record and from discussion with the patient's . The patient is not oriented to provide an accurate history. Per the 's report, it was an unwitnessed fall. She found him on the ground with the ladder on the ground next to him and does not know if he fell off the ladder or not. She does report that he had another unwitnessed fall off a ladder a weekor two ago. He was brought in by EMS to the hospital and was a level red trauma. He was found to have a small intraventricular hemorrhage and scalp hematoma as well as a left displaced acetabular fracture. He was placed in a left distal femoral traction and admitted to the intensive care unit due to some decreased cognitive status and combativeness. He required restraints for a period of time andmedication to assist with anxiety and delirium. The patient's reports that, at baseline, other than his cognitive decline, he is quite healthyand does all of his normal daily activities of living himself and continues to be quite active, goes for long walks, climbs ladders, does gardening. She does report that he had hernia surgery in the past. She cannot recall if this was a ventral or inguinal hernia surgery. She thinks that mesh was involved, and this was done at other hospital over 30 years ago. OBJECTIVE PHYSICAL EXAMINATION General: Patient is awake and arousable. He is interactive, answers some questions appropriately, and follows commands, but is not oriented to place. Neuro: He endorses intact sensation to light touch in the tibial, deep peroneal, and superficial peroneal nerve distribution. He is able to fire his EHL, FHL, tibialis anterior, and gastrocsoleus. Vessels: His left foot is warm and well-perfused with a palpable posterior tibial pulse. Skin: He has no obvious incisions that I can see on the anterior abdominal wall. I did examine his left groin as well and did not see an incision or scar in that area obviously. He has no active hernia that I can appreciate. No incision over his iliac crest. Musculoskeletal: He is in left distal femoral skeletal traction and is tolerating this well. DIAGNOSTICS IMAGING STUDIES: Plain films and CT scan of the pelvis were reviewed. These demonstrate an associated both-column left acetabular fracture with significant displacement of the anterior column and medialization of theposterior column. There is not a separate posterior wall fragment, but there is some comminution ofthe anterior rim of the acetabulum. There is significant medialization of the hip joint and some secondary congruence of the anterior column but not of the posterior column. ASSESSMENT / PLAN #1 Unwitnessed fall from height, date of injury November 23, 2023 #2 Left associated both-column acetabular fracture #3 Scalp hematoma #4 Intraventricular hemorrhage #5 Recent cognitive decline I had a good discussion with the patient's over the phone. She reports that at baseline he wasvery active and healthy other than his cognitive decline. She reports that, if it were not for the cognitive decline, he would be very healthy and active and at his normal baseline state that he has been at for decades. We talked about operative versus nonoperative management. We talked about operative management, and given the significant displacement of the acetabulum, it is likely that he would develop posttraumatic arthritis. However, there is some secondary congruence, and this may not happen immediately, and I think the patient could potentially be ambulatory with the hip joint in its si gnificantly medial and cranial position. However, I think his level of activity would definitely decrease with successful nonoperative management. Additionally, hip arthroplasty with the hip in that displaced position would be dramatically more challenging. An alternative would be to proceed with operative management including open reduction and internal fixation. We did discuss that, with either treatment, it would be very difficult for the patient to comply with weightbearing restrictions given his cognitive decline. This is a complicating factor for operative and nonoperative management, frankly. However, I think operative management is likely the better option given the significant displ acement of the posterior column and medialization of the femoral head into the pelvis. We will plan to take the patient to the operating room for open reduction and internal fixation of his left acetabulum tomorrow, Tuesday, November 25, 2023. The patient should be maintained in 10 pounds of distal femoral traction until such time as he goesto the operating room. The traction can be removed for short periods of time as needed for patient transport or comfort. The patient may be started on chemical DVT prophylaxis from my standpoint, but we would ask that the patient's a.m. dose on the morning of surgery November 24 be held given the significant invasiveness ofthe fracture for an anterior approach to the acetabulum and pelvis. The patient should be on bedrest for now and will likely be touch weightbearing postoperatively. * Barry Fitzpatrick P.A.-C., M.S. - 11/24/2023 7:48 AM CDTAssociated Order(s): IP CONSULT TO HOSPITAL INTERNAL MEDICINE; IP CONSULT TO HOSPITAL INTERNAL MEDIC INE Geriatrics Consult SUBJECTIVE Reason for Consult:Fall from Ladder, possible dementia Primary Team: RST [facility] Trauma and General Surgery General (e.g. 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 Grayson is an 83-year-old male with history of cataracts status post intra- ocular lens placement, macular degeneration, hearing deficits and BPH who presents with fall from a ladder, height unknown. Patient sustained left retroperitoneal hematoma, 6th rib fracture, subarachnoid hemorrhage, left acetabular fracture, pelvic ring fracture who was admitted to the ICU for monitoring in the setting of multiple injuries. Geriatrics was consulted due to concerns for dementia and fall. Patient seen examined this morning. Nursing reports agitated behaviors overnight and patient pulling on medical equipment lines. Patient resting with his eyes closed when I entered the room, opens eyes to verbal stimuli. Patient cooperative with questioning but has notable cognitive deficits namelyplace, time and events. Patient has difficulties remembering why he is hospitalized even after it was discussed a few minutes before. Patient reports left back pain. The notes some shortness of breath, namely difficulty taking deep breaths. Denies chest pain and is otherwise comfortable. I had an extended conversation with patient's who notes significant cognitive decline over thelast 2 years. Most significant difficulties have been with some short term memory and basic math calculations. Patient is still very active at home, and continues to fix things around the house. Wifehas to help him using the computer, logging into [employer], e-mail and he often forgets why he has checks in his wallet. Two weeks ago he fell off the ladder when trying to fix the garage. This fall was reported without injury and also unwitnessed. No current outpatient medications on file prior to encounter. Systems Review (Geriatrics): Mobility: Falls in past 12 months: Yes Cognition Patient / family awareness of problems with memory / thinking: Yes Behavioral symptoms: None Depression screen (PHQ 2): not performed Sensory Impairment Visual Impairment: Yes intraocular implants, macular degeneration, Computer zoom 200% Hearing Impairment: Yes, doesn't wear his hearing aids Nutrition Poor appetite: Yes Problems with chewing: Yes Problems with swallowing: Yes Unintentional weight loss: No Nutrition status: malnutrition screen negative Elimination Bladder: Difficulty urinating, enlarged prostate Safety: Abuse / neglect screening: negative Alcohol screening: How often do you have a drink containing alcohol?: Never Factors associated with hospitalization: Sleep: abnormal Tubes/lines: PIV and Rosado Current diet order: No diet orders on file VTE prophylaxis: SCD's OBJECTIVE Temperature: [36.5 ??C-37.4 ??C] 37.4 ??C Heart Rate: [71-107] 94 Resp Rate: [13-25] 21 Blood Pressure: (90-173)/(44-153) 151/72 SpO2: [81 %-100 %] 92 % Flow Rate (L/min): [2 L/min-5 L/min] 2 L/min Height: [180.3 cm] 180.3 cm Weight: [86.3 kg-86.6 kg] 86.6 kg BSA (Calculated - sq m): [2.08 sq meters] 2.08 sq meters BMI (Calculated): [26.5 kg/m??-26.6 kg/m??] 26.6 kg/m?? Pulse Rate: [72-102] 95 Wt Readings from Last 6 Encounters: 11/24/23 86.6 kg Physical Exam: General: No acute distress. Mental: Alert and oriented to person. Responds appropriately to questions. ENT: Oral mucosa pink and moist. Heart: Regular rate, regular rhythm, no murmur, clicks or rubs. Lungs: Clear to auscultation bilaterally; no wheezes, rhonchi or rales. Respirations even and non-labored on room air. Abdomen: Soft, nontender, nondistended. Active bowel sounds x 4 quadrants. Extremities: Left lower extremity contraction splint. Skin: Warm and dry, well perfused. No new rashes or lesions noted. DIAGNOSTICS I have independently reviewed labs, ECG, xray, and diagnostics from admission. ASSESSMENT / PLAN Mr. Grayson is hospitalized on T [facility] Trauma and General Surgery for evaluation and management of: Fracture Ilium Closed Initial Left (HCC). #1 History Of Falling #2 Subarachnoid Hematoma Trauma Without Loss Of Consciousness Subsequent #3 Contusion Scalp Initial #4 Fracture Rib One Open Initial Left #5 Contusion Other Intra Abdominal Organs Initial #6 Anemia Posthemorrhagic Acute (Blood Loss Anemia) #7 Fracture Acetabulum Other Closed Initial Left (HCC) #8 Fracture Pelvis Multiple Closed With Stable Disruption Pelvis Ring Initial (HCC) #9 Fracture Ilium Closed Initial Left (HCC) Carlos Alberto Grayson is a 83 y.o. with medical history of BPH, cataracts, macular degeneration who presented with fall from ladder.. What Matters Most to Mr. Grayson: Personal interests/hobbies: Fixing things Relationships/supports: in hoahaoism Mentation: Baseline cognition: Independent of ADLs and IADLs with the exception of finances. Poor short-term memory Delirium screening: CAM indeterminate for acute delirium on exam. Patient able to state days of theweek backwards but -2 RASS. Decision-making capacity: impaired: Identified primary contact Mobility: Baseline Mobility: BMAT Level 4 (Able to stand and walk) Current Activity/Mobility: BMAT Level 2 (Able to extend knee but cannot stand; needs lift equipment) Safe Mobility (Fall Prevention) Plan: Patient lacks capacity; I have discussed the safety plan withnursing. Medications/Medical Issues: Medication review: reconciled Relevant acute medical/geriatrics issues: BPH, cataracts, glaucoma Anticipated disposition plan: Detention Facility RECOMMENDATIONS: 1. Initiate ramelteon and suvorexant q.h.s. to improve sleep and hopefully reduce delirium. 2. Remove Rosado catheter, start Flomax 0.4 mg daily and utilize straight cath t.i.d. 3. Change Seroquel to p.r.n., alternative would be olanzapine 2.5 mg. 4. From the cognition standpoint we are strongly in favor of fixation of left hip as patient has poor memory and is very active at baseline. 5. Recommend some sort of fidget toy or tactile puzzle to keep patient busy. 6. Continue non-pharmacological interventions for delirium: Open blinds during the day to promote daytime alertness and irregular sleep-wake cycle Regular verbal reminders of current location and what is happening. Get out of bed during the day into chairs as much as possible, especially for meals Continue working with PT/OT. Please continue to provide motivations as much as possible. Continue sleep enhancement Have familiar things in the room, like family pictures Have the clock visible from the patient's bed Have hearing aids and glasses in place if applicable The above plan of care was discussed with Dr. Rae Coello [id number]), HIM programmer analyst consultant. I personally spent a total 80 minutes in counseling and coordination of care as documented above. Thank you for the opportunity to care for this patient. We will continue to follow with you. Pleasepage the Geriatrics Consult Service at [phone]. * Umm Schmidt M.D. - 11/23/2023 7:15 PM CDT This is a chief resident supervisory note for the day call provider; please refer to their full consult note for complete history and exam details. Briefly, this 83yM experienced a fall today, unwitnessed but hitting his head with obvious bruisingon his forehead on exam. He does not remember the fall. CT head shows a small amount of intraventricular hemorrhage, likely secondary to the trauma. Pt endorses headache and nausea, but otherwise seems to be at his neurological baseline (history of dementia per with some confusion, but nonfocal on exam). We will plan to get a repeat CT head tomorrow morning to assess the stability of the intracranial blood products. Assuming they are stable, the primary team may start DVT chemoprophylaxis at that time if desired. * Edmar Love M.D., Ph.D. - 11/23/2023 2:50 PM CDT TRAUMA ACTIVATION NOTE PATIENT ID: Carlos Alberto Grayson, 83 y.o. male MR #: [id number] CHIEF COMPLAINT Level Red 3 Trauma Activation Mechanism Fall 6 ft ladder Anticoagulation Status: None Supervising programmer analyst consultant: Dr. Johnson, [facility] trauma programmer analyst consultant. PREHOSPITAL INFORMATION Time of injury: 1115 There was approximately 10 minutes of notification prior to patient arrival. Access: 2 times peripheral IV Highest heart rate: 85 Lowest systolic blood pressure: 76/52 Medications received in transport: None IV Fluids received in transport: 250 mL fluid Blood products received in transport: None PRIMARY SURVEY Airway: Airway patent, patient maintaining own airway Breathing: Bilateral breath sounds auscultated Circulation: Palpable central and distal pulses, initial BP: 116/72, HR Disability: GCS- Eyes: 4 - Opens eyes on own Verbal: 4 - Confused Motor: 6 - Follows simple motor commands; total: 14/15. Gross Neuro deficit: None Exposure: Disrobed, no gross abnormalities observed, warm blankets applied. SECONDARY SURVEY: HEENT: Contusion, swelling left frontal scalp hematoma, no blood in mouth or hemotympanum Neck: Supple. Trachea midline. No palpable cervical crepitus or underlying hematoma. Collar in place. Chest: Chest wall stable. No apparent tenderness on palpation. No palpable crepitus. Abdomen: Soft, nondistended, nontender on palpation. Pelvis: Pelvic binder in place, pain when palpating left hip, moving left lower extremity Extremities: Bilateral upper extremities are grossly normal without long-bone deformity. Bilateral lower extremities are grossly normal without long-bone deformity. Pulses are palpable bilaterally. Spine: Patient was rolled in full spinal precautions. Palpation of cervical, thoracic, and lumbar spine did not reveal any bony step-offs or obvious tenderness on palpation. Rectum: Rectal exam: was performed. Patient has normal rectal tone. No evidence of posterior trauma. : Patient has normal external male anatomy. No blood at the urethra. RESUSCITATION: Peripheral IV access established, blood work submitted. Oxygen administered via . INTERVENTIONS Chest x-ray was obtained. Pelvic x-ray was obtained. FAST was deferred. LABS Recent Results (from the past 24 hour(s)) Thromboelastograph, Kaolin, Blood Collection Time: 11/23/23 12:59 PM Result Value R, Kaolin, TEG 3.5 (L) K, Kaolin, TEG 1.5 Angle, Kaolin, TEG 60.3 (L) MA, Kaolin, TEG 66.4 Ly30, Kaolin, TEG 0.0 Basic Metabolic Panel Collection Time: 11/23/23 1:05 PM Result Value Potassium, P 2.7 (L) Sodium, P 147 (H) Chloride, P 120 (H) Bicarbonate, P 16 (L) Anion Gap, P 11 BUN (Blood Urea Nitrogen), P 23 Creatinine 0.79 Estimated GFR (eGFR) 89 Calcium, Total, P 5.3 (Crit L) Glucose, P 91 Ethanol Level, Serum Collection Time: 11/23/23 1:05 PM Result Value Ethanol, S <10 Hepatic Function Panel Collection Time: 11/23/23 1:05 PM Result Value Bilirubin, Total, S 0.6 Bilirubin, Direct, S 0.2 Aspartate Aminotransferase (AST), S 22 Alanine Aminotransferase (ALT), S 13 Alkaline Phosphatase, S 26 (L) Albumin, S 2.3 (L) Protein, Total, S 3.4 (L) Lipase Collection Time: 11/23/23 1:05 PM Result Value Lipase, S 19 S-TSH (Thyroid-Stimulating Hormone - Sensitive) Collection Time: 11/23/23 1:05 PM Result Value TSH, Sensitive 6.1 (H) CBC with Differential, Blood Collection Time: 11/23/23 1:06 PM Result Value Hemoglobin 8.3 (L) Hematocrit 26.2 (L) Erythrocytes 2.73 (L) MCV 96.0 RBC Distrib Width 13.7 Platelet Count 107 (L) Leukocytes 6.7 Neutrophils 5.69 Lymphocytes 0.54 (L) Monocytes 0.47 Eosinophils <0.03 Basophils <0.03 Prothrombin Time (PT) Collection Time: 11/23/23 1:06 PM Result Value Prothrombin Time, P 16.8 (H) INR 1.5 APTT (Activated Partial Thromboplastin Time) Collection Time: 11/23/23 1:06 PM Result Value Activated Partial Thrombopl Time, P 30 Type and Screen (with Reflex Antibody ID) Collection Time: 11/23/23 1:06 PM Result Value ABORh AB Pos Antibody Screen Negative Type & Screen Expiration 11/26/2023 23:59 Testing Location [facility] Troponin T, Baseline with 2 Hour/6 Hour Reflex Biomarker Panel Collection Time: 11/23/23 1:06 PM Result Value Troponin T, Baseline, 5th gen 17 (H) Venous Blood Gas and Electrolytes CG8+, POCT Collection Time: 11/23/23 1:06 PM Result Value Sample Site, POCT Venstick pH, Venous, POCT, B 7.30 (L) pCO2, Venous, POCT, B 45 pO2, Venous, POCT, B 23 Base Excess, Venous, POCT, B -5 HCO3, Venous, POCT, B 22 Sodium, POCT, B 142 Potassium, POCT, B 3.5 (L) Calcium, Ionized, POCT, B 4.30 (L) Glucose, POCT, B 114 Hematocrit, POCT, B 31.0 (L) Lactate for Sepsis with Reflex, POCT Collection Time: 11/23/23 1:06 PM Result Value Lactate, POCT 1.67 From the trauma bay the patient was transported to CT where imaging of the head, cervical spine, chest, abdomen and pelvis were obtained IMAGING CT Head without IV Contrast Result Date: 11/23/2023 Impression: Large left frontal scalp hematoma. No fracture. Small amount of layering blood productsin the occipital horn of the left lateral ventricle. Small cortical hemorrhage versus focal subarachnoid hemorrhage anterior left frontal lobe (series 6, image 184). Normal caliber ventricles. Chronic small vessel ischemic changes. Periapical lucencies about the left maxillary first molar and left mandibular first molar teeth. Incomplete fusion of the C1 posterior arch. Remainder negative. Findings discussed with Bereket Snider M.D. (pager #[phone]) on 11/23/2023 at 1:[address] Abdomen Pelvis with IV Contrast Result Date: 11/23/2023 Impression: 1. Complex left pelvic fractures with associated [...] acute traumatic findings in the chest. 4. Smallincidental pulmonary nodules. CT Chest with IV Contrast Result Date: 11/23/2023 Impression: 1. Complex left pelvic fractures with associated [...] acute traumatic findings in the chest. 4. Smallincidental pulmonary nodules. CT Thoracic Spine by Reconstruction, CT Lumbar Spine by Reconstruction Result Date: 11/23/2023 Impression: No acute fracture identified within the thoracic or lumbar spine. CT Cervical Spine without IV Contrast Result Date: 11/23/2023 Impression: No fracture or traumatic findings within the cervical spine. Chronic changes as noted. DX Pelvis 1-2 Views Result Date: 11/23/2023 Impression: Comminuted left acetabular fracture. DX Chest Portable 1 View Result Date: 11/23/2023 Impression: Lung volumes small. No pneumothorax or pleural effusion. Heart size normal. ASSESSMENT AND PLAN #1 History Of Falling #2 Subarachnoid Hematoma Trauma Without Loss Of Consciousness Subsequent #3 Contusion Scalp Initial #4 Fracture Rib One Open Initial Left #5 Contusion Other Intra Abdominal Organs Initial #6 Anemia Posthemorrhagic Acute (Blood Loss Anemia) #7 Fracture Acetabulum Other Closed Initial Left (HCC) #8 Fracture Pelvis Multiple Closed With Stable Disruption Pelvis Ring Initial (HCC) #9 Fracture Ilium Closed Initial Left (HCC) Carlos Alberto Grayson is a 83 y.o. male who presents to the Trauma Resuscitation [place] status post fall from a ladder. Patient has extensive pelvic fracture and retroperitoneal hematoma. The emergency department we will coordinate vascular IR and then admission to the trauma intensive care unit while Orthopedic Trauma Service. Plan: Vascular IR for embolization left retroperitoneal hematoma Orthopedic Trauma surgery for management of left acetabular fracture, left lying fracture. Tractionversus OR Admission to trauma ICU per emergency medicine recommendation This patient was seen and examined with Dr. Jasso, [facility] trauma programmer analyst consultant, who was in agreement with the above plan and assessment. Please page the trauma service at [phone] with any questions or concerns. Edmar Love M.D., Ph.D. General Surgery 11/23/23 2:54 PM CDT Associated attestation - Lenora Johnson M.D. - 11/23/2023 9:01 PM CDT I saw and evaluated the patient, participating in the ashraf portions of the service. I reviewed Dr. Love's note. I agree with his findings and plan. [facility] LOOP DRIER OPERATOR NOTE SUBJECTIVE Mr. Grayson is an 83-year-old male patient who fell off a 6 ft ladder at approximately 11:15 a.m..The patient's spouse found the patient lying down calling out for help. Notably, the patient's spouse reports a suspicion that the patient has been demonstrating some signs of dementia recently. The patient had signs of injury to his left mandaen and complained of severe left hip pain. In the field, the patient had an isolated blood pressure 76/52. He was given 400 cc of normal saline. Since then, the patient's blood pressure has been stable, most recently at 100/59. Oxygen saturation greater than 90% on 2 L oxygen. Heart rate in the 70s, normal sinus rhythm. 218 gauge peripheralIVs were placed. The patient repeatedly recited his birthday to EMS in response to their questions. I presented to the trauma resuscitation bay shortly after the patient's arrival. Please see Dr. Love's note for additional details about the primary and secondary survey. OBJECTIVE I have reviewed the current vital sign data as applicable. VITAL SIGNS BP 126/66 Pulse 90 Temp 36.5 ??C (Axillary) Resp 15 Ht 180.3 cm Wt 86.3 kg SpO2 96% BMI 26.54 kg/m?? PHYSICAL EXAM GENERAL: In no acute distress. Lying in bed calmly. NEUROLOGIC: Awake, alert and appropriately answering questions. PULMONARY: Breathing comfortably on room air. No increased work of breathing. ABDOMINAL: Soft, without peritonitis. However, he has exquisite tenderness to his left hip. EXTREMITIES: Warm, well-perfused. ASSESSMENT AND PLAN Mr. Grayson is an 83-year-old male patient who fell off a 6 ft ladder today. Initial review of histrauma CT scans demonstrates some intraventricular and cortical versus focal subarachnoid blood products, complex left pelvic fractures with associated left retroperitoneal hemorrhage, nondisplaced left anterior 6th rib fracture. Our neurosurgery colleagues assessed the patient in the emergency department. They recommend a repeat CT scan of his head tomorrow morning. Our OTS colleagues assessed the patient in the emergency department. They requested Vascular Interventional Radiology perform embolization of the patient's retroperitoneal hematoma. Vascular Interventional Radiology determined the patient was not a candidate for this. The patient will be admitted to the 7MB Trauma ICU. My colleague, Dr. Jason Navarrete has been made aware. We will obtain tertiary trauma survey tomorrow or when otherwise appropriate. We will appreciatethe recommendations of our Geriatric Medicine colleagues. Will follow up on the recommendations of our OTS colleagues and repeat evaluation by Neurosurgery after tomorrow's head CT. * Toni Vazquez M.D. - 11/23/2023 2:32 PM CDTAssociated Order(s): Orthopedic Surgery consult (hospital) ORTHOPEDIC SURGERY CONSULT NOTE Today's date: 11/23/2023 Referring Provider - Orthopedic Surgery consult (hospital) Referring Provider: Bereket Sndier M.D. - Emergency department, resuscitation [place] Chief Complaint -or- Reason for Consult Left acetabular fracture RMB C05 -- Carlos Alberto Grayson ([phone]) 83 y.o.male Code: Full Contact: There are no phone numbers on file. SUBJECTIVE History of Present Illness: Mr. Carlos Alberto Grayson is a 83 y.o. with no significant past medical history who sustained a fall from proximally 6 ft on a ladder approximately 1:00 p.m. earlier today. He was presented as a level red 3 to the resuscitation [place] in the [facility] Emergency Department. Orthopedic surgery was consulted in the setting of an acetabular fracture for recommendations for evaluation and treatment. On discussion with the patient, he does not remember the inciting event. According to his , around 1:00 a.m. she became aware of screaming for help from outside. She realized that her hadlikely fallen from the ladder that he was working on. He does work with what sounds like boot protectors and the EMS personnel think that the boot protector slipped on a ladder causing him to fall. He did fall onto a cement flower pot, striking his head as well as his left side. In the field, he was hypotensive to the 70s over 40s and thus presented as a level red trauma. I evaluated the patient expeditiously in the resuscitation [place] after being made aware of his acetabular fracture. Thankfully he was hemodynamically stable, with no signs of active bleeding. His hemoglobin had dropped apparently to 9.5, though he was asymptomatic. He was slightly confused and unableto participate in conversation very reliably. History is obtained from the as documented prior. 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 GCS is 14. There was head strike, but no loss of consciousness. The head CT was notable for subarachnoid hematoma. The CT C-spine was on notable. Catalog of injuries include subarachnoid hematoma, scalp contusion, rib fracture, acetabular fracture, iliac wing fracture. This is nicely documented by my TC colleagues. Pertinent Hx: Pre-injury Ambulation Level: Highly active, without aid Previous gait aids: No Last meal (Solids / Liquids): 2 days prior, he is fasting as he is developed jain man Anticoagulation: No Diabetes: No Tobacco use: No Steroids: No Kidney function: EGFR 63 Pacemaker: No Hx of anesthesia problems: Unknown Past Medical and Surgical History History reviewed. No pertinent past medical history. History reviewed. No pertinent surgical history. Review of Systems A complete 12-point review of systems was performed using patient provide information addition to review of the electronic medical record and is negative with the exception of what is mentioned in the HPI. Family History History reviewed. No pertinent family history. Social History Social History Tobacco Use Smoking Status Not on file Smokeless Tobacco Not on file Contact number: There are no phone numbers on file.. Medications and Allergies No current facility-administered medications on file prior to encounter. No current outpatient medications on file prior to encounter. No Known Allergies OBJECTIVE VS Temperature: [36.7 ??C] 36.7 ??C Heart Rate: [71-84] 80 Resp Rate: [16-20] 16 Blood Pressure: (107-168)/(48-76) 135/65 SpO2: [95 %-100 %] 96 % Flow Rate (L/min): [2 L/min-5 L/min] 2 L/min Pulse Rate: [72-94] 89 EXAM General: slightly uncomfortable but alert. Answering questions appropriately. Alert and oriented toperson, place, date, and situation.able to follow commands. Left Lower Extremity: Overall appearance: Skin free of tears for abrasions.. Left lower extremity is shortened, external rotation. Distal compartments are soft. Calves soft and non-tender. Palpation: TTP about the left hemipelvis throughout Sensation: SILT at L2 - S1 dermatomes and Superficial and deep peroneal, sural, saphenous, tibial distributions. Motor: Firing Quads, Hamstrings, TA, GSC, EHL, FHL Circulation: No cyanosis noted. Palpable PT, DP pulses. Toes warm and well-perfused. Right Upper Extremity: - Overall: Skin free of significant skin tears, cuts or abrasions. No major deformity. - Palpation: Non tender to palpation along all bony prominences of the wrist to the elbow to the shoulder the clavicle. - ROM / Stability: Painless arc of motion with elbow flexion, extension, pronation, supination, wrist flexion, wrist extension - Circulation: Fingers warm & well perfused. Radial pulses palpable. - Motor: Fires Deltoid, Wrist extensors, Wrist flexors, EPL, FPL, and first dorsal interosseous. - Sensation: SILT in axillary, musculocutaneous, median, radial, and ulnar nerve distributions. Left Upper Extremity: - Overall: Skin free of significant skin tears, cuts or abrasions. No major deformity. - Palpation: Non tender to palpation along all bony prominences of the wrist to the elbow to the shoulder the clavicle. - ROM / Stability: Painless arc of motion with elbow flexion, extension, pronation, supination, wrist flexion, wrist extension - Circulation: Fingers warm & well perfused. Radial pulses palpable. - Motor: Fires Deltoid, Wrist extensors, Wrist flexors, EPL, FPL, and first dorsal interosseous. - Sensation: SILT in axillary, musculocutaneous, median, radial, and ulnar nerve distributions. Right Lower Extremity: - Overall: Skin free of significant skin tears, cuts or abrasions. No major deformity. Compartments are soft. Calves soft and non-tender. - Palpation: No pain to palpation throughout the extremity. - ROM / Stability: No pain with ROM throughout the extremity. No pain with logroll. Able to performstraight leg raise. - Sensation: SILT at L2 - S1 dermatomes and Superficial and deep peroneal, sural, saphenous, tibialdistributions. - Motor: Firing Quads, Hamstrings, TA, GSC, EHL, FHL - Circulation: No cyanosis noted. Foot warm and well perfused. 2+ DP, 1+ PT DIAGNOSTICS Labs: Recent Labs 11/23/23 1306 HGB 8.3 L HCT 26.2 L PLT 107 L WBC 6.7 Recent Labs 11/23/23 1306 INR 1.5 PT 16.8 H APTT 30 Recent Labs 11/23/23 1306 11/23/23 1305 NA 142 147 H CL -- 120 H BICARB 22 16 L BUN -- 23 CREATININE -- 0.79 GLUCOSE -- 91 CALCIUM -- 5.3 Crit L Recent Labs 11/23/23 1305 AST 22 ALT 13 LIPASE 19 ALBUMIN 2.3 L Lactate 2.6 No results for input(s): CRP in the last 48 hours. No lab exists for component: ESR Imaging: CT Head without IV Contrast Result Date: 11/23/2023 Impression: Large left frontal scalp hematoma. No fracture. Small amount of layering blood productsin the occipital horn of the left lateral ventricle. Small cortical hemorrhage versus focal subarachnoid hemorrhage anterior left frontal lobe (series 6, image 184). Normal caliber ventricles. Chronic small vessel ischemic changes. Periapical lucencies about the left maxillary first molar and left mandibular first molar teeth. Incomplete fusion of the C1 posterior arch. Remainder negative. Findings discussed with Bereket Snider M.D. (pager #[phone]) on 11/23/2023 at 1:[address] Abdomen Pelvis with IV Contrast Result Date: 11/23/2023 Impression: 1. Complex left pelvic fractures with associated [...] acute traumatic findings in the chest. 4. Smallincidental pulmonary nodules. CT Chest with IV Contrast Result Date: 11/23/2023 Impression: 1. Complex left pelvic fractures with associated [...] acute traumatic findings in the chest. 4. Smallincidental pulmonary nodules. CT Thoracic Spine by Reconstruction, CT Lumbar Spine by Reconstruction Result Date: 11/23/2023 Impression: No acute fracture identified within the thoracic or lumbar spine. CT Cervical Spine without IV Contrast Result Date: 11/23/2023 Impression: No fracture or traumatic findings within the cervical spine. Chronic changes as noted. DX Pelvis 1-2 Views Result Date: 11/23/2023 Impression: Comminuted left acetabular fracture. DX Chest Portable 1 View Result Date: 11/23/2023 Impression: Lung volumes small. No pneumothorax or pleural effusion. Heart size normal. Review: I personally reviewed the imaging and read the radiology reports of Carlos Alberto Grayson which demonstratea comminuted left acetabular fracture involving the anterior wall, anterior column and posterior wall. The hip is located within the acetabulum. There is also an associated left iliac wing fracture. Did not appreciate any other fractures within the right hemipelvis, or on plain films of the left femur and pelvis. Inlet/outlet and judet views redemonstrate the above-noted acetabular fracture. . ASSESSMENT / PLAN FRANCES Wagner -- Carlos Alberto Grayson ([phone]) 83 y.o.male #1 Left comminuted acetabular fracture after 6 ft fall from ladder Carlos Alberto Grayson is a 83 y.o. male who presents with with the above-noted injury. Unfortunately, the patient has sustained an acetabular fracture. Thankfully, he is neurovascularly intact. While there is associated retroperitoneal hemorrhage, he is demonstrating signs of excellentdistal perfusion, no signs of hemodynamic instability. Certainly, where he to deteriorate hemodynamically, we had reconsider the need for urgent surgical intervention. He would not benefit from a pelvic binder location of his fractures. We did discuss the consultation of vascular IR for consideration of every any embolized able vesselbleeds. It was not felt that he had any candidate for embolization. Recommended admission to the [facility] Service, in either the general care floor or ICU as per their discretion. We did have a long discussion about management of his acetabular fracture with the patient's . We discussed operative nonoperative treatment modalities. We discussed that his acetabular fracture would likely benefit from operative intervention to optimize his stability and function long-term. After discussion, the patient elected to proceed with ORIF of his left acetabular fracture. This will tentatively be booked for tomorrow pending OR availability and medicine clearance. The patient was site marked, listed and consented for surgery. In addition, we discussed placing the patient's leg in distal femoral traction for optimal maintenance of fracture stability and length prior to surgery. After verbal discussion, he consented to distal femoral traction pin. In the ICU the patient's skin was prepped with ChloraPrep and lidocaine wasinjected around the soft tissues for the start exit point of the distal femoral traction pin. Approx imately 14 cc of lidocaine was used. Under sterile conditions, a distal femoral traction pin was placed medial to lateral approximately 1 fingerbreadth superior to the superior pole of the patella midline on the anterior-posterior axis of the distal femur. This was felt to be within bone on both cortices and the patient was placed in traction weight on orthopedic bed. He tolerated this procedure well and was neurovascularly intact after. The pin sites were dressed with Xeroform and Kerlix. We ensured that none of the traction bow was potentially irritating his thigh skin. Recommendations / Plan: - NWB left upper extremity - Urinalysis to look for blood. - Rectal exam - obtain inlet/outlet, judet views, 3D reconstructions of his CT abdomen and pelvis obtained prior - site marked, consented, listed for left ORIF of his acetabular fracture - Hospital admission to [facility] - standard preoperative labs and evaluation - we will need surgical clearance either by the ICU or HIM This is a josé miguel resident note that will be staffed within 24 hours. Please refer to the supervisory note of the OTS Chief Resident marine resource economist for final recommendations. Please contact [facility] ([place]) at [phone] with any questions or concerns regarding this patient. If outside of 06:00 - 18:00 on weekdays or any time on the weekend, please contact the [facility] Orthopedic Surgery house resident marine resource economist at [phone] (This note was created with the use of [employer] voice recognition software. While this note has been reviewed, some errors may still persist. Please contact the author with any questions.) Toni Vazquez MD Orthopedic Surgery, PGY-1 11:15 PM CDT 11/23/2023 * Neisha Waldrop APRN, C.N.P., M.S.N. - 11/23/2023 1:56 PM CDTAssociated Order(s): IP CONSULT TO NEUROLOGICAL SURGERY REASON FOR CONSULT: Level red Trauma, resulting in ICH HISTORY OF PRESENT ILLNESS: Carlos Alberto Grayson is a 83 y.o. male with no known medical history who presents to [facility] via EMS followinga suspected fall from a ladder. He is suspected to have sustained a fall around 4-6 feet from a ladder and hit his head on a planter. He was found down by his with a ladder laying beside him. The fall was unwitnessed, and he is a poor historian. The has concerns for dementia but the patient has refused doctoring for several years. [facility] On arrival, he was reported to be GCS13. CT imaging demonstrated layering blood in the occipital horn of the left lateral ventricle, as well as trace subarachnoid blood products in the left frontal lobe, and right sulci. Ot her injuries include an acetabular fracture and a gluteal hematoma. He is currently not on anticoagulation/antiplatelet agents, and takes no medications other than vitamins according to . PERTINENT DATA: Temperature: [36.7 ??C] 36.7 ??C Heart Rate: [71-84] 80 Resp Rate: [16-20] 16 Blood Pressure: (107-116)/(61-72) 107/65 SpO2: [95 %-100 %] 95 % Flow Rate (L/min): [2 L/min] 2 L/min Pulse Rate: [72-78] 77 - Sedation: NA - GCS: 14 (E4 V4 M6) - General: DIOMEDE, alert, supine in bed; at bedside, C collar in place - Mental status: alert & oriented to self, but does not know where he is and reports that the year is 1983. Follows commands, is slow to answers questions. - CN: Pupils equal, round, and reactive to light. Extraocular movements intact. Face symmetric. Speech and language fluent, no evidence of aphasia or dysarthria. No palatal deviation. Tongue midline. - Motor: Strength symmetric and intact in bilateral upper extremities. Antigravity in R lower extremity, left lower extremity exam limited due to orthopedic injuries. No pronator drift. - Sensation: Symmetric and intact to light touch throughout - Coordination: No dysmetria on [id number] testing. Results from last 7 days Lab Units 11/23/23 1306 11/23/23 1305 WBC x10(9)/L 6.7 -- HEMOGLOBIN g/dL 8.3* -- PLATELETS AUTO x10(9)/L 107* -- SODIUM P mmol/L -- 147* POC SODIUM mmol/L 142 -- CREATININE mg/dL -- 0.79 ESTIMATED GFR EGFR mL/min/BSA -- 89 BUN P mg/dL -- 23 CT head 1311 - Large left frontal scalp hematoma. No fracture. Small amount of layering blood products in the occipital horn of the left lateral ventricle. Small cortical hemorrhage versus focal subarachnoid hemorrhage anterior left frontal lobe. Normal caliber ventricles. Chronic small vessel ischemic changes. Periapical lucencies about the left maxillary first molar and left mandibular first molar teeth. Incomplete fusion of the C1 posterior arch. Remainder negative. ASSESSMENT AND PLAN Carlos Alberto Grayson presents following a suspected 4-6 foot fall from a ladder. He was found down by his with a ladder laying beside him. The exact mechanism, and cause of the fall is unknown. The does report he is currently fasting due to jain reasons and unsure if that can be related to the incident today. She noted a left scalp hematoma and he endorsed pain to his left hip and was unable to get up so she called for EMS. He was brought to the [facility] ED as a level red trauma. Imaging revealed a small amount of layering blood products in the occipital horn of the left lateral ventricle,as well as trace subarachnoid blood products. His exam is notable for confusion, but his endorses he is mentating at his current baseline, and has concerns for undiagnosed dementia. He is oriented to self, but not time or place. He does not recall the incident occurring this morning. Was able to follow commands in all extremities, with limitations the left lower extremity due to orthopedic injuries. There are no other focal deficits, no upgaze restrictions, and extraocular movements intact. From a neurosurgical perspective we plan to repeat his CT scan in 6 hours to monitor for stability. He is not on any antiplatelet or anticoagulant medications that require reversal. He also presents with an acetabular fracture and gluteal hematoma and will be admitted to the [facility] service. - Please keep SBP <160 mmHg - HOB>30 - Hold all means of anticoagulation, including chemical VTE prophylaxis for now - Repeat head CT in 6 hours The above has been discussed with the chief neurosurgery resident marine resource economist, Dr. Schmidt. Please look to her forthcoming supervisory note in the next 12-24 hours. For any questions or concerns regardingthe neurosurgical plan of care for this patient, please page the Neurosurgery Chief C Service Pager, [phone]. Times: Consult placed: 13:26 (while in scanner) Patient seen: 14:05 (upon immediate return from scanner) Staffed with chief resident: 14:25 --- Neisha Waldrop APRN, C.N.P., M.S.N. documented in this encounter Nursing Notes * Ivy Rodrigez R.N. - 12/08/2023 11:02 PM CDT Shift Goals: Clinical Goals for the Shift: Patient Safety, Cooperative with cares Identify possible barriers to meeting goals/advancing plan of care: Agitation End of Shift Summary: AVSS. Patient was somewhat cooperative with cares today. He was in compliancewith I&O cath & urinal use. Mostly in good spirits throughout the shift, was able to get outside with the AUTOMATIC LEHR OPERATOR. Patient remained safe during this shift. Problem: SAFETY ADULT Goal: Maintain a safe environment Outcome: Progressing Problem: SAFETY ADULT - RISK FOR FALL AND OR FALL INJURY Goal: Patient remains free from fall/fall injury Outcome: Progressing Problem: PAIN - ADULT Goal: PT VERBALIZES/DEMONSTRATES ADEQUATE COMFORT LEVEL OR BASELINE Outcome: Progressing Problem: KNOWLEDGE DEFICIT Goal: Patient/family/caregiver demonstrates understanding of disease process, treatment plan, medications, and discharge instructions Outcome: Progressing Problem: INFECTION - ADULT Goal: Absence of infection during hospitalization Outcome: Progressing Problem: SKIN/TISSUE INTEGRITY Goal: Skin/Tissue integrity maintained or improved Outcome: Progressing Goal: Oral and Nasal mucous membranes remain intact Outcome: Progressing Problem: DISCHARGE PLANNING Goal: Patient discharge needs identified Outcome: Progressing Problem: POTENTIAL OR ACTUAL PRESSURE INJURY-ADULT Goal: Manage sensory Perception deficits to maintain and/or improve skin integrity Outcome: Progressing Goal: Maintain optimal skin moisture to ensure or improve skin integrity Outcome: Progressing Goal: Achieve optimal activity and/or mobility to maintain or improve skin integrity Outcome: Progressing Goal: Nutrient intake appropriate for improving, restoring or maintaining skin integrity Outcome: Progressing Goal: Minimize friction and/or shear to maintain or improve skin integrity Outcome: Progressing Problem: Compromised Skin Integrity Goal: Skin/Tissue integrity maintained or improved Outcome: Progressing Goal: Oral and Nasal mucous membranes remain intact Outcome: Progressing Goal: Incisions, wounds, or drain sites healing without S/S of infection Outcome: Progressing Problem: Incontinence and/or Moisture Goal: Skin integrity is maintained or improved Outcome: Progressing Problem: SAFETY - VIOLENT/SELF-DESTRUCTIVE RESTRAINT Goal: Remains free of injury from restraints (Restraint for Violent/Self- Destructive Behavior) Outcome: Progressing Goal: Free from restraints (Restraint for Violent or Self-Destructive Behavior) Outcome: Progressing Problem: SAFETY - MEDICAL RESTRAINT Goal: Minimize time and restraint and remain free from injury while in restraint Outcome: Progressing * Ivy Rodrigez R.N. - 12/07/2023 6:41 PM CDT Shift Goals: Clinical Goals for the Shift: Rest comfortably, cooperate in cares, adaquate intake Identify possible barriers to meeting goals/advancing plan of care: End of Shift Summary: VSS. Patient agitated most of shift, refused offer of bedside urinal and being straight catheterized or bladder scanned. Sleep enhancement orders placed so hope he will get adequate rest tonight. Patient remained safe during this shift. Problem: SAFETY ADULT Goal: Maintain a safe environment Outcome: Progressing Problem: SAFETY ADULT - RISK FOR FALL AND OR FALL INJURY Goal: Patient remains free from fall/fall injury Outcome: Progressing Problem: PAIN - ADULT Goal: PT VERBALIZES/DEMONSTRATES ADEQUATE COMFORT LEVEL OR BASELINE Outcome: Progressing Problem: KNOWLEDGE DEFICIT Goal: Patient/family/caregiver demonstrates understanding of disease process, treatment plan, medications, and discharge instructions Outcome: Progressing Problem: INFECTION - ADULT Goal: Absence of infection during hospitalization Outcome: Progressing Problem: SKIN/TISSUE INTEGRITY Goal: Skin/Tissue integrity maintained or improved Outcome: Progressing Goal: Oral and Nasal mucous membranes remain intact Outcome: Progressing Problem: DISCHARGE PLANNING Goal: Patient discharge needs identified Outcome: Progressing Problem: POTENTIAL OR ACTUAL PRESSURE INJURY-ADULT Goal: Manage sensory Perception deficits to maintain and/or improve skin integrity Outcome: Progressing Goal: Maintain optimal skin moisture to ensure or improve skin integrity Outcome: Progressing Goal: Achieve optimal activity and/or mobility to maintain or improve skin integrity Outcome: Progressing Goal: Nutrient intake appropriate for improving, restoring or maintaining skin integrity Outcome: Progressing Goal: Minimize friction and/or shear to maintain or improve skin integrity Outcome: Progressing Problem: Compromised Skin Integrity Goal: Skin/Tissue integrity maintained or improved Outcome: Progressing Goal: Oral and Nasal mucous membranes remain intact Outcome: Progressing Goal: Incisions, wounds, or drain sites healing without S/S of infection Outcome: Progressing Problem: Incontinence and/or Moisture Goal: Skin integrity is maintained or improved Outcome: Progressing Problem: SAFETY - VIOLENT/SELF-DESTRUCTIVE RESTRAINT Goal: Remains free of injury from restraints (Restraint for Violent/Self- Destructive Behavior) Outcome: Progressing Goal: Free from restraints (Restraint for Violent or Self-Destructive Behavior) Outcome: Progressing Problem: SAFETY - MEDICAL RESTRAINT Goal: Minimize time and restraint and remain free from injury while in restraint Outcome: Progressing * Sonali Castellanos R.N. - 12/07/2023 6:13 AM CDT Problem: SAFETY ADULT Goal: Maintain a safe environment Outcome: Progressing Problem: SAFETY ADULT - RISK FOR FALL AND OR FALL INJURY Goal: Patient remains free from fall/fall injury Outcome: Progressing Shift Goals: Clinical Goals for the Shift: Pt will cooperate with nursing cares; pt will rest comfortably overnight. Identify possible barriers to meeting goals/advancing plan of care: restless End of Shift Summary: Pt was cooperative and pleasant all night. However he did have difficulty sleeping. Continues to require I&O cathing; excellent uop. Was able to have continent stool on the commode after expressing to staff that he needed to have a BM. * Sonali Castellanos R.N. - 12/06/2023 6:33 AM CDT Shift Goals: Clinical Goals for the Shift: Pt will be cooperative with cares overnight. VSS. Pt will rest comfortably overnight. Identify possible barriers to meeting goals/advancing plan of care: none End of Shift Summary: Pt slept for several hours but has been awake for much of the patient account liaison. Pleasantly confused. Last evening mentioned seeing 2 frogs in his room (actually trash on his floor and an electrical box on the wall) but no other hallucinations present since. Drain and vac DC'd by sx last evening. Continues to require I&O cathing. Pleasant and cooperative. * Rogelio Arriola R.N. - 12/04/2023 8:05 AM CDT Financial Associate was paged for staff assist in pt room. Upon entering the room pt was seen on his knees with several staff members already assisting and assessing pt. Pt was alert and following commands. Denied hitting his head. Pt was returned to bed via ceiling lift with the assistance of several staff members. Vitals obtained and assessments continued. New assessment findings of bilateral redness to pt's knees and a skin tear on his left dorsal side of pt's hand. Service was made aware and assessed the pt at the bedside. * Sonali Castellanos R.N. - 12/03/2023 6:07 AM CDT Problem: SAFETY ADULT Goal: Maintain a safe environment Outcome: Progressing Problem: SAFETY ADULT - RISK FOR FALL AND OR FALL INJURY Goal: Patient remains free from fall/fall injury Outcome: Progressing Problem: PAIN - ADULT Goal: PT VERBALIZES/DEMONSTRATES ADEQUATE COMFORT LEVEL OR BASELINE Outcome: Progressing Shift Goals: Clinical Goals for the Shift: Pt will remain calm and cooperative; VSS. Identify possible barriers to meeting goals/advancing plan of care: none End of Shift Summary: Patient was able to sleep comfortably after being I&O cath'd last eveningand receiving his evening doses of melatonin and tylenol. VS have remained stable and uop has been adequate during shift. Patient has continued to require I&O cathing but has begun to void largeramounts on his own. * Daniela Nguyen R.N. - 11/30/2023 5:35 AM CDT Shift Goals: Clinical Goals for the Shift: Pt will remain safe and have a restful night sleep with minimal pain. Identify possible barriers to meeting goals/advancing plan of care: cognitive impairment End of Shift Summary: Pt met above goals- slept intermittently, restless at times which repositioning and emptying bladder helped. Neuro checks intact with no changes. Remains IA for patient safety and to ensure drain and wound vac remain intact. MRI, abdominal/CXR to be done this am. Problem: SAFETY ADULT Goal: Maintain a safe environment Outcome: Progressing Problem: SAFETY ADULT - RISK FOR FALL AND OR FALL INJURY Goal: Patient remains free from fall/fall injury Outcome: Progressing Problem: PAIN - ADULT Goal: PT VERBALIZES/DEMONSTRATES ADEQUATE COMFORT LEVEL OR BASELINE Outcome: Progressing Problem: KNOWLEDGE DEFICIT Goal: Patient/family/caregiver demonstrates understanding of disease process, treatment plan, medications, and discharge instructions Outcome: Progressing Problem: INFECTION - ADULT Goal: Absence of infection during hospitalization Outcome: Progressing Problem: SKIN/TISSUE INTEGRITY Goal: Skin/Tissue integrity maintained or improved Outcome: Progressing Goal: Oral and Nasal mucous membranes remain intact Outcome: Progressing Problem: DISCHARGE PLANNING Goal: Patient discharge needs identified Outcome: Progressing Problem: POTENTIAL OR ACTUAL PRESSURE INJURY-ADULT Goal: Manage sensory Perception deficits to maintain and/or improve skin integrity Outcome: Progressing Goal: Maintain optimal skin moisture to ensure or improve skin integrity Outcome: Progressing Goal: Achieve optimal activity and/or mobility to maintain or improve skin integrity Outcome: Progressing Goal: Nutrient intake appropriate for improving, restoring or maintaining skin integrity Outcome: Progressing Goal: Minimize friction and/or shear to maintain or improve skin integrity Outcome: Progressing Problem: Compromised Skin Integrity Goal: Skin/Tissue integrity maintained or improved Outcome: Progressing Goal: Oral and Nasal mucous membranes remain intact Outcome: Progressing Goal: Incisions, wounds, or drain sites healing without S/S of infection Outcome: Progressing Problem: Incontinence and/or Moisture Goal: Skin integrity is maintained or improved Outcome: Progressing Problem: SAFETY - VIOLENT/SELF-DESTRUCTIVE RESTRAINT Goal: Remains free of injury from restraints (Restraint for Violent/Self- Destructive Behavior) Outcome: Progressing Goal: Free from restraints (Restraint for Violent or Self-Destructive Behavior) Outcome: Progressing Problem: SAFETY - MEDICAL RESTRAINT Goal: Minimize time and restraint and remain free from injury while in restraint Outcome: Progressing * Stephanie Arthur R.N. - 11/29/2023 5:03 PM CDT Shift Goals: Clinical Goals for the Shift: Pt will remain cooperative with nursing cares and get out of bed Identify possible barriers to meeting goals/advancing plan of care: decreased mobility, safe discharge planning, confusion End of Shift Summary: Pt remained safe and free from falls. Q4 vss on room air while awake and 2 L NC when sleeping. Pt tolerated his meals this shift with a big appetite. Non-violent wrist restraints were utilized until approx 1500 dt the pt pulling at his lines. Around 1700, he was getting more restless and attempting to get out of bed. Pt was still redirectable at this time and dangled at the edge of the bed with close IA supervision. Pt found comfort reading the Bible with the AUTOMATIC LEHR OPERATOR. Pain waswell controlled with sched medications. Pt I/O cathed approx every 4 hours dt inability to spontaneously void. He did have a couple small bms with the bedpan. IA remains in room at all times for confusion and pulling at drains/lines. Problem: SAFETY ADULT Goal: Maintain a safe environment Outcome: Progressing Problem: SAFETY ADULT - RISK FOR FALL AND OR FALL INJURY Goal: Patient remains free from fall/fall injury Outcome: Progressing Problem: PAIN - ADULT Goal: PT VERBALIZES/DEMONSTRATES ADEQUATE COMFORT LEVEL OR BASELINE Outcome: Progressing Problem: KNOWLEDGE DEFICIT Goal: Patient/family/caregiver demonstrates understanding of disease process, treatment plan, medications, and discharge instructions Outcome: Progressing Problem: INFECTION - ADULT Goal: Absence of infection during hospitalization Outcome: Progressing Problem: SKIN/TISSUE INTEGRITY Goal: Skin/Tissue integrity maintained or improved Outcome: Progressing Goal: Oral and Nasal mucous membranes remain intact Outcome: Progressing Problem: DISCHARGE PLANNING Goal: Patient discharge needs identified Outcome: Progressing Problem: POTENTIAL OR ACTUAL PRESSURE INJURY-ADULT Goal: Manage sensory Perception deficits to maintain and/or improve skin integrity Outcome: Progressing Goal: Maintain optimal skin moisture to ensure or improve skin integrity Outcome: Progressing Goal: Achieve optimal activity and/or mobility to maintain or improve skin integrity Outcome: Progressing Goal: Nutrient intake appropriate for improving, restoring or maintaining skin integrity Outcome: Progressing Goal: Minimize friction and/or shear to maintain or improve skin integrity Outcome: Progressing Problem: Compromised Skin Integrity Goal: Skin/Tissue integrity maintained or improved Outcome: Progressing Goal: Oral and Nasal mucous membranes remain intact Outcome: Progressing Goal: Incisions, wounds, or drain sites healing without S/S of infection Outcome: Progressing Problem: Incontinence and/or Moisture Goal: Skin integrity is maintained or improved Outcome: Progressing Problem: SAFETY - VIOLENT/SELF-DESTRUCTIVE RESTRAINT Goal: Remains free of injury from restraints (Restraint for Violent/Self- Destructive Behavior) Outcome: Progressing Goal: Free from restraints (Restraint for Violent or Self-Destructive Behavior) Outcome: Progressing Problem: SAFETY - MEDICAL RESTRAINT Goal: Minimize time and restraint and remain free from injury while in restraint Outcome: Progressing * Sonali Castellanos R.N. - 11/29/2023 6:38 AM CDT Problem: SAFETY ADULT Goal: Maintain a safe environment Outcome: Progressing Problem: SAFETY ADULT - RISK FOR FALL AND OR FALL INJURY Goal: Patient remains free from fall/fall injury Outcome: Progressing Problem: PAIN - ADULT Goal: PT VERBALIZES/DEMONSTRATES ADEQUATE COMFORT LEVEL OR BASELINE Outcome: Progressing Shift Goals: Clinical Goals for the Shift: Pt will remain cooperative with cares; pt's pain will be adequately controlled to allow rest overnight. Identify possible barriers to meeting goals/advancing plan of care: none End of Shift Summary: Patient was very cooperative with all nursing cares overnight. Mentation waxed and waned overnight with sleepiness and meds, but this morning is oriented x2. Unable to assess LLE due to pain. Still requiring I&O cathing as unable to void. Messaging service to DC non-violent restraint order as he has not been restrained since 11/27 0700. * Nancy Layne R.RVidhya - 11/27/2023 10:40 AM CDT Patient is a 83 y.o. male admitted on 11/23/2023 Principal Problem: Fracture Ilium Closed Initial Left (HCC) PMH:History reviewed. No pertinent past medical history. Shift Summary/Plan of Care: Patient remains on 4 l nasal cannula. Continue to monitor and assess the patient's respiratory status while in the ICU. Encourage cough/deep breathing, IS and activity if appropriate. Wean O2 as tolerated. Oxygen Therapy: $Delivery Method: Nasal cannula Flow Rate (L/min): 4 L/min Recent ABG: Recent Labs 11/26/23 1728 PO2 ART 77 L PCO2 ART 36 PH ART 7.47 H HCO3 ART 26 BASE EXC ART 2 Nancy Layne R.R.T. 11/27/23 10:40 AM CDT * Rommel Huber R.R.T., L.R.T. - 11/27/2023 6:06 AM CDT Patient is a 83 y.o. male admitted on 11/23/2023 Principal Problem: Fracture Ilium Closed Initial Left (HCC) PMH:History reviewed. No pertinent past medical history. Shift Summary/Plan of Care: Patient seen on 4 nasal cannula. Continue to monitor and assess the patient's respiratory status while in the ICU. Encourage cough/deep breathing, IS and activity if appropriate. Wean O2 as tolerated. Oxygen Therapy: $Delivery Method: Nasal cannula Flow Rate (L/min): 4 L/min Hemodynamic monitoring: Arterial Line 11/25/23 Right Radial (Active) Placement Date/Time: 11/25/23 (c) 811 Procedural Pause Completed: Yes Catheter Time Out Checklist Completed: Yes Hand Hygiene Performed Prior to Insertion: Yes Site Prep: Chlorhexidine (Preferred) Sterile Barriers Used : Cap;Gloves;Gown;Large d... Recent ABG: Recent Labs 11/26/23 1728 PO2 ART 77 L PCO2 ART 36 PH ART 7.47 H HCO3 ART 26 BASE EXC ART 2 Jorje Huber R.R.T., L.R.T. 11/27/23 6:06 AM CDT * Nancy Layne R.R.T. - 11/26/2023 1:24 PM CDT Patient is a 83 y.o. male admitted on 11/23/2023 Principal Problem: Fracture Ilium Closed Initial Left (HCC) PMH:History reviewed. No pertinent past medical history. Shift Summary/Plan of Care: Patient seen on 2 nasal cannula. Continue to monitor and assess the patient's respiratory status while in the ICU. Encourage cough/deep breathing, IS and activity if appropriate. Wean O2 as tolerated. Oxygen Therapy: $Delivery Method: Nasal cannula Flow Rate (L/min): 2 L/min Hemodynamic monitoring: Arterial Line 11/25/23 Right Radial (Active) Placement Date/Time: 11/25/23 (c) 811 Procedural Pause Completed: Yes Catheter Time Out Checklist Completed: Yes Hand Hygiene Performed Prior to Insertion: Yes Site Prep: Chlorhexidine (Preferred) Sterile Barriers Used : Cap;Gloves;Gown;Large d... Recent ABG: Recent Labs 11/26/23 0749 PO2 ART 94 PCO2 ART 37 PH ART 7.41 HCO3 ART 23 BASE EXC ART -1 Nancy Layne RTarikR.TTarik 11/26/23 1:24 PM CDT * Kandy Mann L.R.TTarik, WAN SUPPORT SPECIALIST-ACCS - 11/25/2023 5:24 PM CDT Patient is a 83 y.o. male admitted on 11/23/2023 Principal Problem: Fracture Ilium Closed Initial Left (HCC) Shift Summary/Plan of Care: Pt rested during shift on nasal cannula, no acute respiratory concerns at this time. Oxygen Therapy: $Delivery Method: Nasal cannula Flow Rate (L/min): 2 L/min Hemodynamic monitoring: Arterial Line 11/25/23 Right Radial (Active) Placement Date/Time: 11/25/23 (c) 811 Procedural Pause Completed: Yes Catheter Time Out Checklist Completed: Yes Hand Hygiene Performed Prior to Insertion: Yes Site Prep: Chlorhexidine (Preferred) Sterile Barriers Used : Cap;Gloves;Gown;Large d... Recent ABG: Recent Labs 11/25/23 1331 PO2 ART 162 H PCO2 ART 42 PH ART 7.32 L HCO3 ART 22 BASE EXC ART -4 L Sybil HurtadoRTarikTTarik, WAN SUPPORT SPECIALIST-ACCS 11/25/23 5:24 PM CDT * Umm Carbone R.R.TTarik, L.R.T. - 11/24/2023 8:26 PM CDT Patient is a 83 y.o. male admitted on 11/23/2023 Alert Information: Plan of Care: At 1945, patient assessed on nasal cannula. No respiratory concern at this time. RT will continue to monitor and assess patient's cardiopulmonary status; encourage cough and deep breathing; titrate O2 as tolerated. Reassess rib fracture numbers tomorrow Principal Problem Fracture Ilium Closed Initial Left (HCC) Oxygen Therapy $Delivery Method: Nasal cannula Social History Tobacco Use Smoking Status Not on file Smokeless Tobacco Not on file No results for input(s): PO2 ART, PCO2 ART, PH ART in the last 24 hours. * Bereket Pike R.R.T., L.R.T. - 11/24/2023 6:12 PM CDT Patient is a 83 y.o. male admitted on 11/23/2023 Alert Information: Plan of Care: RT will continue to monitor and assess patient's cardiopulmonary status; encourage cough and deep breathing; titrate O2 as tolerated. Patient unable to perform rib fracture protocol numbers due to confusion. Principal Problem Fracture Ilium Closed Initial Left (HCC) Oxygen Therapy $Delivery Method: Room air Social History Tobacco Use Smoking Status Not on file Smokeless Tobacco Not on file No results for input(s): PO2 ART, PCO2 ART, PH ART in the last 24 hours. * Nadine Luna L.R.T. - 11/24/2023 5:00 AM CDT Patient started Hyperinflation Therapy (HIT) algorithm on: 11/23/2023 at 1800. Patient is currently in phase 1 of the HIT assessment pathway. Next Respiratory Mechanics due: 11/24/2023 at 1100. Plan of Care: Continue PFT pathway. Rib Fracture After Trauma Assessment : (Patient not cooperative.) First 24 Hour Rib Fx Measurements Predicted VC: 4.0 Initial: VC 2.5; NIF -60 6 Hour: VC 2.79; -60 12 Hour: Patient in restraints and refused to participate. 18 Hour: RT will continue patient on HIT pathway until patient is able to achieve predicted VC ? 50% and NIF ? -30 five times in phase 1. OR RT will continue patient on HIT pathway until patient is able to achieve predicted VC ? 50% and NIF ? -30 once, 24 hours after HIT order is discontinued in phase 3. Lawrence Cody 11/24/23 5:37 AM CDT * Nadine Luna L.R.T. - 11/24/2023 4:33 AM CDT Patient is a 83 y.o. male admitted on 11/23/2023 Principal Problem: Fracture Ilium Closed Initial Left (HCC) Shift Summary: 2000: Patient assessed this pm and is resting comfortably in bed on room air. Oxygen Therapy: $Delivery Method: Room air Flow Rate (L/min): 2 L/min Smoking History: Social History Tobacco Use Smoking Status Not on file Smokeless Tobacco Not on file Plan of Care: RT will continue to monitor and assess patient status. PRT to maintain, manage and wean ventilationand oxygenation per protocols and ABG values. Lawrence Cody 11/24/23 4:34 AM * Nadine Luna L.R.T. - 11/23/2023 11:00 PM CDT Patient started Hyperinflation Therapy (HIT) algorithm on: 11/23/2023 at 1800. Patient is currently in phase 1 of the HIT assessment pathway. Next Respiratory Mechanics due: 11/24/2023 at 0500. Plan of Care: Continue PFT pathway. Rib Fracture After Trauma Assessment : Yes Max Inspiratory Pressure: -60 cm H2O Predicted Vital Capacity: 4 Liters Vital Capacity: 2.79 Liters Patient Position: Lying Patient Effort : Good Pain Score: 6 First 24 Hour Rib Fx Measurements Predicted VC: 4.0 Initial: VC 2.5; NIF -60 6 Hour: VC 2.79; -60 12 Hour: 18 Hour: RT will continue patient on HIT pathway until patient is able to achieve predicted VC ? 50% and NIF ? -30 five times in phase 1. OR RT will continue patient on HIT pathway until patient is able to achieve predicted VC ? 50% and NIF ? -30 once, 24 hours after HIT order is discontinued in phase 3. Lawrence Cody 11/24/23 4:31 AM CDT * Bereket Pike R.R.T., L.RVidhya - 11/23/2023 6:26 PM CDT Patient started Hyperinflation Therapy (HIT) algorithm on: 11/23/2023 @ 1800 Patient is currently in phase 1 of the HIT assessment pathway. Next Respiratory Mechanics due: 11/22 @ 2350 Rib Fracture After Trauma Assessment : Yes Max Inspiratory Pressure: -60 cm H2O Predicted Vital Capacity: 4 Liters Vital Capacity: 2.5 Liters Patient Position: Semi-recumbent Patient Effort : Good Pain Score: 5 - Moderate pain First 24 Hour Rib Fx Measurements Initial: 2.5 L predicted 4.0 RT will continue patient on HIT pathway until patient is able to achieve predicted VC ? 50% and NIF ? -30 five times in phase 1. OR RT will continue patient on HIT pathway until patient is able to achieve predicted VC ? 50% and NIF ? -30 once, 24 hours after HIT order is discontinued in phase 3. Bereket Pike R.R.T., L.R.T. 11/23/23 6:27 PM CDT * Bereket Pike R.R.T., SybilRTarikTTarik - 11/23/2023 6:25 PM CDT Patient is a 83 y.o. male admitted on 11/23/2023 Alert Information: Plan of Care: RT will continue to monitor and assess patient's cardiopulmonary status; encourage cough and deep breathing; titrate O2 as tolerated. Rib fracture protocol initiated. Principal Problem Fracture Ilium Closed Initial Left (HCC) Oxygen Therapy $Delivery Method: Nasal cannula Social History Tobacco Use Smoking Status Not on file Smokeless Tobacco Not on file No results for input(s): PO2 ART, PCO2 ART, PH ART in the last 24 hours. * Sera Avila P.A.-C., M.S. - 11/23/2023 3:14 PM CDT ORTHOPEDIC PLAN OF CARE: ATTESTATION I attest that I reviewed this case with the Orthopedic Resident. Mr. Grayson was evaluated by our team for comminuted left acetabular fracture. Orthopedic team agrees with IR embolization of retroperitoneal bleed if IR team deems appropriate. Once this procedure is complete, OTS will plan to placethe patient in skeletal traction which can occur either in the ED or in the ICU. The patient's inpatient placement should not be delayed due to traction placement. OTS anticipates surgical managementof this fracture and will continue to follow the patient during inpatient stay updating the primaryservice regarding timing of planned procedures. Patient should remain non-weight bearing. Please contact OTS 1 team at [phone] with any questions regarding the Orthopedic management of this patient. * Flavia Brown R.R.T., L.R.T. - 11/23/2023 1:12 PM CDT RT present for Trauma Red 3, patient being brought in by EMS after being found down and reportedly having fallen off a ladder. The patient arrived on 2L nasal cannula. He was alert and oriented and protecting his own airway. On 2L the patient's SpO2 was 98%. No respiratory interventions were needed. documented in this encounter OR Notes * Op Note - Naveed Higuera M.D. - 11/25/2023 8:54 AM CDT Pre-op Diagnosis Fracture Acetabulum Closed Initial Left (HCC) Post-op Diagnosis Fracture Acetabulum Closed Initial Left (HCC) Fiber Heel Piece Shaper A assistant professor of music actively participated and was necessary for one or more of the following: opening, exposure and visualization, maintaining hemostasis, wound closure resulting in its safe and expeditious completion. Findings As expected Complications None Operative Note Narrative Patient was brought into operating room 410. He was placed under general anesthesia and positioned in the supine position on the operating table. Prior to prepping and draping, we did confirm that the patient's left side was the correct side for the procedure. A preprocedural time-out was performed, confirming correct patient, site, and side for the procedure and that he had received appropriate IV antibiotics and tranexamic acid. We then removed the traction pin from the patient's left distal femur. The patient was positioned supine on a bump underneath the sacrum, and the pelvis was prepped and draped in the normal sterile orthopedic fashion. A preprocedural time-out was performed to confirm the correct patient, site, and side for the procedure and that he received appropriate IV antibiotics within 30 minutes of incision. I started with a lateral window type approach to the patient's left pelvic ring. Incision was outlined. It started at the midline as a Pfannenstiel type incision and then met up with an old scar thatwas well healed and remodeled that extended over the groin area on the left side that was presumably from his previous hernia repair with mesh. I then extended the marking for a possible incision to the ASIS and extending along the iliac crest posteriorly. I then created the lateral window of this approach extending the incision along the iliac crest to the anterior superior iliac spine and then curving the incision distally to parallel the interval between the sartorius and the tensor fascia washington in a Olivarez-Hwang fashion. Sharp dissection was carried down through skin and subcutaneous tissues down to the level of the fascia. At this point I was able to easily identify the external abdominal oblique and the tensor fascia washington, and I utilized this interval to dissect the external abdominal oblique off the iliac crest extending from posterior to anteriorly, leaving approximately 2 cm of the external abdominal obliqueattached to the iliac crest at the anterior extent of the exposure behind the ASIS. I then dissected over the top of the iliac crest posterior to that and took the iliacus off the inner table of the ilium utilizing a Bashir and a lap sponge. Once this had been performed, we then prepped for osteotomy. I marked out the location of the transverse limb of the osteotomy 2 cm behind the ASIS and then from that point anteriorly to the ASIS we dissected the tensor fascia washington off the outer table of the ilium in order to expose the outside of the ASIS and the front of the iliac wing. I then utilized a small oscillating saw to complete a square-shaped osteotomy in this location, extending approximately 15 mm down into the bone and then down below the ASIS and above the AIIS and above the rectus origin anteriorly. This was then completed. I then dissected out the interval between the sartorius and the TFL. There were several branches of the lateral femoral cutaneous nerve that extended laterally immediately past the ASIS. In order to prevent these from being on tension, I did go ahead and sacrifice these branches, sharply dividing them to prevent traction injury to the nerve. After developingthe interval between the sartorius and the TFL down to the rectus origin, I was then able to easily mobilize the osteotomized portion of the ASIS medially and increase the exposure into the iliac fossa. At this point, then I went ahead to secure the pelvis to the table in order to assist with the reduction. On the contralateral side, we placed a single 5 mm pin into the iliac crest to establish an anchoring point on the patient's right side for attaching the pelvis to the table. This was placed with a small incision, and then a pre-drilled pin was placed into the iliac crest down the gluteal pillar. I utilized a pin-to-bar clamp, and then a carbon fiber joselin was attached to this clamp and then passed through a small hole in the drapes that was made with scissors that were then discarded. After dropping the joselin through the hole in the drapes, it was attached to the bed via a clamp. The hole around the carbon fiber joselin was secured with Ioban. On the contralateral side, we then placed a percutaneous Schanz pin up into the femoral head starting just distal to the vastus ridge pre-drilling a hole with a 3.5 drill bit and then utilizing a 5 mm Schanz pin. We were then able to distract the hip joint by pulling traction utilizing the pelvic man handler specific device that attaches to the sterile arm watson in order to distract across the joint. At this point, we then brought in fluoroscopy, confirmed the placement of all the pins, and then distracted the joint and got excellent distraction across the joint as seen on images 1, 2, and 3. I then completed the anterior exposure. A Pfannenstiel incision was created. Sharp dissection was carried down through skin and subcutaneous tissue down to the level of the fascia, and a vertical split in the midline at the linea alba was created. The space of Retzius was entered, and the bladder was protect and retracted posteriorly. I then dissected along the top of the superior pubic ramus starting at the midline and extending laterally and posteriorly. The aguirre mortis was identified and then controlled with clips and then divided. We then extended posteriorly and encountered the fracture easily at this point. There was already a traumatic tear through the iliopectineal fascia, making it easy to access the iliac fossa from this intrapelvic approach. I was then able to get a retractorunderneath the psoas muscle as well as the external iliac artery and vein and femoral nerve in order to retract this safely out of the way and continued the dissection along the pelvic brim back to the SI joint. We were then able to identify all parts of the fracture through these 2 approaches. The anterior column was identified laterally through the lateral window approach and the medial aspect and distal aspect of the anterior column through the intrapelvic approach. The posterior column was identified and cleaned and the obturator internus muscle was dissected off of it through the intrapelvic approach and the small cortical piece about the SI joint was also identified through this approach. I was also able to visualize the intact ilium posteriorly. At this point, we then proceeded with reduction of the articular impaction. This was easily able kamille identified and visualized through the fracture line at the intrapelvic approach. We disimpacted this with an osteotome and then secured it in place with multiple wires as seen on image 4 and 5. Once we were satisfied with placement of the wires and reduction of the articular surface, we then plac ed a single 3.5 mm lag screw intraosseous against this fragment to secure it in place as seen on image 13 and 14. This gave us an excellent reduction of that portion of the articular surface. We werethen able to complete the cleaning of the fracture site through the intrapelvic approach. We then started with the reduction of the fracture. We started up at the iliac crest posteriorly, which we could palpate that reduction through the lateral window approach and then secured this in place with multiple 5/64 K-wires. We then worked our way down towards the pelvic brim and reduced the triangular segment of extra-articular cortical bone just anterior and lateral to the SI joint and secured this in place with a separate K-wire. We then were able to reduce the anterior column in placeby visualizing its reduction back to the intact ilium through the lateral window and then to the posterior column through the intrapelvic window. Utilizing a combination of a Farabeuf clamp on the ant erior column and providing distal traction through the Schanz pin in the proximal femur, we were able to extend and internally rotate the anterior column segment to reduce it. I was then able to lateralize the posterior column segment and place a clamp through the intrapelvic approach with one tineon the posterior column and another kp over the pelvic rim on the anterior column to secure this reduction anatomically at the pelvic brim. We then obtained multiple fluoroscopic images to confirm the reduction as are seen on the intraoperative fluoros. At this point, we then proceeded with an intraoperative spin of the acetabulum to confirm the reduction and placement of the clamps. There was an excellent reduction of the articular surface as seen on the intraoperative CT. We then proceeded with placement of definitive implants. We started by replacing clamps with lag screws. A single lag screw was placed into the cortical segment posteriorly with a washer on it. This was the triangular cortical segment that was extra-articular. A second lag screw was placed into the posterior column posteriorly just distal to the pelvic brim and above the greater sciatic notch. This held the posterior column in place. We then placed two 3.5 mm screws from the iliac fossa down the posterior column as seen on images [id number]. These were 3.5 mm screws, thefirst with a washer, and the washer did unfortunately break through the cortical surface of the anterior column but still was getting excellent compression against the more oblique surface of the intracortical bone, and thus I left this in place with the washer and then a second screw next to it. These both got excellent purchase and were confirmed to be extra- articular on the iliac oblique view.Satisfied with our reduction, we then removed the clamps and then selected the Tamiko intrapelvic plate. This plate was placed through the wound and then was placed over the top and lateral to the obturator nerve, making sure the nerve was free and not incarcerated by the plate. The plate was secured posteriorly with a single 3.5 mm screw and then anteriorly with two 3.5 mm screws into the superior pubic ramus. We then placed additional screw posteriorly, so there were 2 screws posteriorly, 2 screwsanteriorly securing this plate in place. We then clamped the posterior column portion of the plate using an offset pelvic reduction clamp with one kp over the outer table just medial to the fracture line the anterior column from the intact ilium so that the clamp kp was on the intactilium and the second kp on the quadrilateral surface portion of the plate to lateralize the posterior column and push this portion of the plate down to bone. Then, a single 3.5 mm screw was placed at the apex of that portion of the plate to secure it. Satisfied with the reduction and placement ofall implants, we then obtained intraoperative fluoroscopic images. They were satisfactory. Up at the top of the iliac crest, posteriorly, we secured that reduction with a single 3.5 mm screw as seen on image 950 and 951. We then thoroughly irrigated all the wounds with sterile normal saline, followed by Hibiclens solution and sterile normal saline again. The ASIS osteotomy was reconstructed with a 3.5 mm screw as seen on image 953 and 954. We then proceeded with closure. A drain was placed into the space of Retzius coming out the anterior abdominal wall, and a second drain was placed at the iliac fossa coming out the lateral aspect of the abdominal wall. The abdominal wall and the external abdominal oblique fascia were repaired laterally with interrupted 0 Vicryl suture. The interval between the sartorius and the TFL was also closed with 0 Vicryl suture. Subcutaneous tissues were closed with 0 Vicryl, 2-0 Monocryl, and inna. Anteriorly, the wound was closed with a #1 PDS running suture in the rectus abdominus fascia followedby 2-0 Monocryl in the subcutaneous tissues and inna in the skin. The remaining Schanz pins wereall removed from the right hemipelvis as well as the left proximal femur, and these wounds were irrigated and closed with 2-0 monocryl suture and inna as well. It should be noted also that in the intrapelvic approach, we did intentionally take down the obturator artery and vein in order to increase our exposure, and the nerve was carefully dissected and protected. Antibiotics: Perioperative cefazolin x2 doses. VTE Prophylaxis: Okay for prophylactic doses of chemical VTE prophylaxis starting 12 hours after the conclusion of surgery over the evening of November 25, 2023 Weight bearing: Touch weight bearing 12 weeks postoperatively. I we do understand that because of the patient's dementia this may be difficult to enforce. However we will do our best to ensure the patient min limits the amount of weight-bearing that he does through the left leg to touch weight-bearing. Disposition: Return to inpatient unit. Naveed Higuera M.D. documented in this encounter ED Notes * Carol Miller M.D. - 11/23/2023 4:37 PM CDT I have personally seen and examined this patient. I have fully participated in the care of this patient. I have reviewed all clinical information including history, physical exam, orders, and plan. Iagree with the note of the resident. 83-year-old gentleman without significant past medical history (on no medications) except 's concern for possible cognitive issues presents for evaluation of a presumed fall off a ladder. He was hypotensive in the field and a pelvic binder was placed because of left hip instability and pain. Exam: Left forehead frontal hematoma GCS 15 Hard of hearing C-collar is in place Dorsum left hand 1.5 cm laceration near the base of the thumb Pelvic binder in place Tenderness with any movement of the left hip Impression/plan: Fall, head trauma, presumed left hip fracture, pre-hospital hypotension Concern for the possibility of hemorrhagic shock and a significant pelvic fracture, the patient wasroomed in 1 of the resuscitation base and the trauma team responded expeditiously. IV access was established. Crystalloid resuscitation was initiated. Labs were obtained. Portable pelvis x-ray showedno open book pelvis fracture. Chest x-ray showed no pneumothorax or rib fractures. Patient was taken to CT imaging after the primary and secondary survey were performed. There, a subarachnoid hemorrhage was identified. Neurosurgery felt that a repeat head CT in 6 hours was indicated. Additionally noted were a left iliac wing fracture with retroperitoneal and gluteal hematomas. There was a concernfor possible extravasation which prompted Interventional Radiology discussion. Interventional Radiology ultimately did not believe that there was extravasation which would be amenable to any intervention. The patient was admitted to the [facility] ICU for further evaluation and treatment. ED Course as of 11/23/23 1637 TueNov 23, 2023 132 I have personally interpreted today's portable pelvis x-ray and see no evidence for open book pelvis fracture. The left hip is rotated and we will obtain a dedicated left hip film to better evaluate whether there is a hip fracture on that side. 1332 I have personally interpreted today's head CT. There is hyperdense layering in the left posterior horn. Additionally noted is the left frontal soft tissue swelling. 1332 I have personally interpreted today's CT abdomen and pelvis. They iliac wing is broken and there is acetabular fracture also noted on the left. In the region of the left psoas muscle there appears to be a large left-sided retroperitoneal mass which does not appear to have active extravasation.This mass displaces the bladder to the right. 1343 Neurosurgery is recommending repeat CT head in 6 hours. Orthopedic surgery has been consulted and we will await their recommendations regarding whether they tend to go to the operating room to address this surgically or whether they wished to have IR engaged. 1432 I have spoken to Interventional Radiology per Orthopedic surgery and Trauma surgery's request.They are reviewing the images to determine if they feel that IR could be helpful in this case. 1439 I spoke to Interventional Radiology and they have reviewed the images including delayed imagesand they see no active bleeding by CT angiography that would be amenable to interventional radiology embolization. Will plan to admit to 7 [facility] ICU on trauma surgery team. Final Diagnoses: as of 11/23/23 1637 History Of Falling Retroperitoneal Hematoma Fracture Ilium Closed Initial Left (HCC) Fracture Acetabulum Closed Initial Left (HCC) Contusion Buttock Initial Anemia Subarachnoid Hemorrhage With Loss Of Conscious Initial (HCC) Other Shock (Hemorrhagic Shock) ([facility]) Carol Miller M.D. 11/23/23 1641 * Christopher Cornell M.D. - 11/23/2023 1:14 PM CDT Care for this patient was transferred to ut at shift change. Please see associated documentation for further information. Carlos Alberto Grayson is a 83 y.o. male here for evaluation of Fall. ED Course as of 11/23/23 1546 TueNov 23, 2023 1326 Radiology called and they note intracranial bleeding at the left posterior ventricle. Will speak with neurosurgery 1346 Potassium, P(!): 2.7 1349 Potassium, POCT, B(!): 3.5 1443 Retroperitoneal bleed not amenable to IR at this time. 1507 [facility] ICU 1507 Traction pin on the floor 1546 Obtaining Judets pelvis xrays prior to transport to [facility] ICU Final Diagnoses: as of 11/23/23 1546 History Of Falling Retroperitoneal Hematoma Fracture Ilium Closed Initial Left (HCC) Fracture Acetabulum Closed Initial Left (HCC) Contusion Buttock Initial Anemia Subarachnoid Hemorrhage With Loss Of Conscious Initial (HCC) Other Shock (Hemorrhagic Shock) (HCC) Christopher Cornell M.D. Resident 11/23/23 1546 * Bereket Snider M.D. - 11/23/2023 12:50 PM CDT EMERGENCY DEPARTMENT NOTE CHIEF COMPLAINT/REASON FOR VISIT Fall HISTORY OF PRESENT ILLNESS The patient is a 83 y.o. male with unknown medical history who presents as a trauma resuscitation for a fall. History per EMS report as the patient apparently has a history of dementia and provides limited history. The patient was found on a deck next to a ladder from which it was apparent that he would fallen and sustained head injury and left flank injury. The patient's initial GCS was 13, and he was intermittently hypotensive. The patient was placed in a pelvic binder prior to transport to the emergency department. OBJECTIVE DATA Initial Vitals Temperature 11/23/23 1250 36.7 ??C Pulse Rate 11/23/23 1250 78 Heart Rate 11/23/23 1250 84 Resp Rate 11/23/23 1250 19 Blood Pressure 11/23/23 1250 116/72 SpO2 11/23/23 1250 100 % Pain Score 11/23/23 1358 9 Please see documentation by the resident or provider who performed the trauma examination is I did not perform this myself. The patient arrived alert with a GCS of 13 for confusion and eyes opening to verbal. He was protecting his airway with symmetric chest rise, warm skin and palpable distal pulses. Injuries that I observed included a left forehead contusion and a somewhat shortened left lower extremity, with painful manipulation of the left hip, and a small abrasion on his left leg. He had apalpable left DP pulse and warm toes. ASSESSMENT/PLAN The patient is a 83 y.o. male who presents with a fall presumed from the height of a step ladder, about 4-5 feet, with on scene hypotension. The patient's initial vital signs show a normal blood pressure and a normal heart rate. He does not have a fever. He is confused with evidence of minor head injury and concern for hip or pelvis injury. Differential consideration includes head injury with concern for intracranial hemorrhage, uncertainif the patient is anticoagulated as there is no available medical record for review. There is concern for hip fracture or other pelvic injury. Given no collateral history, the etiology of his fall remains unclear and may be due to a preceding medical illness and laboratory studies will evaluate accordingly. During resuscitation, the patient was awake and breathing spontaneously and protecting his airway. Blood pressure was intermittently low, but no persistent hypotension. He did not appreciate manipulation of the left hip. A pelvic x-ray showed an obvious acetabular fracture, and a possible femoral neck fracture, with no unstable pelvis injury pattern that was apparent. The chest x-ray was unremarkable. One of care blood testing showed a low hemoglobin, with unknown baseline, otherwise no acute concerns. We removed the pelvic binder prior to transfer to the radiology department and the patient had no hemodynamic changes. The patient proceeded to the radiology department for a CT trauma series. I have transferred care to the 2nd provider with laboratory studies and CT scans pending. We are also awaiting an EKG. A consultation with Orthopedic surgery has been placed for presumed acetabular fracture. ED Course as of 11/23/23 1707 TueNov 23, 2023 1329 Radiology called to report layering acute blood products in the left lateral ventricle, neurosurgery contacted prior to handoff to the 2nd provider. Final Diagnoses: as of 11/23/23 1707 History Of Falling Retroperitoneal Hematoma Fracture Ilium Closed Initial Left (HCC) Fracture Acetabulum Closed Initial Left (HCC) Contusion Buttock Initial Anemia Subarachnoid Hemorrhage With Loss Of Conscious Initial (HCC) Other Shock (Hemorrhagic Shock) ([facility]) Bereket Snider M.D. Resident 11/23/23 1708 documented in this encounter Miscellaneous Notes * Hospital Course - Rody Arriaga, LOC, C.N.P., D.N.P. - 11/23/2023 5:56 PM CDT #1 History Of Falling The patient presented to the emergency room as a level red trauma for evaluation after sustaining afall from a ladder. CT imaging was obtained and the patient was found to have the below listed injuries. The [facility] (trauma, critical care, general surgery) service was consulted under the direction ofDr. Johnson for evaluation. After examination and review of the radiologic studies, it was decided to admit the patient to the surgical intensive care floor for continued observation and monitoring. The following day a tertiary trauma survey was completed which revealed no new injuries. #2 Subarachnoid Hematoma Trauma Without Loss Of Consciousness Subsequent #3 Contusion Scalp Initial Our colleagues with Neurosurgery were consulted. They recommended to keep the patient's systolic blood pressure less than 116 head of bed greater than 30??. They asked initially to hold all anticoagulation including DVT prophylaxis and to repeat an interval head CT 6 hours after presentation. Repeat HCT the following morning on 11/23 demonstrated interval increase in Left ventricle and intraparenchymal hemorrhage. A repeat HCT was obtained 48 hours later and was concerning for interval progression of punctate intraparenchymal hemorrhage. when stability of intracranial CT findings were achieved, DVT prophylaxis was started and continued through the course of the hospitalization. . #4 Fracture Rib One Open Initial Left #5 Atelectasis #6 Effusion Pleural Left anterior 6th rib fracture The patient was provided with education on pulmonary hygiene and the usual sequelae following rib fractures, including the following: patient should continue with oral and/or transdermal pain controlregimen to allow for participation in pulmonary hygiene. The patient may utilize a rolled up blanket or pillow against the chest wall to assist with pain control during pulmonary hygiene. The patientwas encouraged to be up out of bed as much as possible (when allowed) to decrease debility and improve pulmonary hygiene. Upon dismissal, patient encouraged to sleep with the head of the bed elevatedutilizing a wedge or multiple pillows, or to sleep upright to decrease pain and assist with pulmonary hygiene. The patient also was educated on avoiding lifting >10 pounds and avoiding overhead activities for approximately 6 weeks following dismissal to avoid chest wall pain/spasms. Upon dismissal patient will need to continue with pulmonary hygiene: the use of the Incentive Spirometry, a minimum of 10 times every hour while awake, along with coughing/deep breathing exercises. Upon dismissal patient will need to continue with pulmonary hygiene. The patient will [facility] approximately 2 weeks for repeat chest x-ray and evaluation. #7 Thrombosis Deep Vein Lower Extremity Left (HCC) Acute L-Soleal vein DVT Held chemical DVT prophylaxis due to unstable head CTs & neurosurgery recs requiring stable head CT. He underwent a repeat US of his bilateral lower extremities which showed unchanged acute DVT in the left soleal vein and in a small adjacent venous branch. Due to the distal nature of the DVT and recurrent falls the patient will not be fully anticoagulated based on the stability of the repeat ultrasound. #8 Contusion Other Intra Abdominal Organs Initial #9 Anemia Posthemorrhagic Acute (Blood Loss Anemia) Colleagues with Interventional Radiology were consulted while the patient was in the emergency department. They reviewed imaging and noted that Interventional Radiology that bleed was not amendable to Interventional Radiology intervention. Hemoglobins were trended and remained stable. Following operative fixation of left acetabulum, patient had additional acute hemorrhagic anemia corrected with additional transfusion. Hemoglobin was again obtained and remained stable. #10 Fracture Acetabulum Other Closed Initial Left (HCC) #11 Fracture Pelvis Multiple Closed With Stable Disruption Pelvis Ring Initial (HCC) #12 Fracture Ilium Closed Initial Left (HCC) Our colleagues with the Orthopedic Trauma surgery Service, Dr. Dietrich's OTS 4 team, were consulted. They placed a traction pin and he was taken to the OR on 11/25/23 for open reduction and internal fixation of the acetabulum. He will require follow up with OTS after discharge. #13 Tachy arrhythmia Supraventricular tachyarrhythmia noted on bedside telemetry though unable to be captured on formal 12 lead EKG. The patient was initiated on metoprolol with slow titration to maintain appropriate hemodynamics and appropriate heart rates. Would recommend outpatient follow up with prior provider or Cardiology for further characterization and medication titration. 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 They recommended initiation of ramelteon and suvorexant to help improve sleep and reduce still area; continue taper per geriatric medicine. Seroquel as needed was ordered and could alternate with olanzapine 2.5 mg. The maximum use of non pharmacological interventions was used to reduce delirium. #18 Overweight Body Mass Index 25-29.9 Adult Recommend patient follow up primary care provider in the outpatient setting The patient was given liquids by mouth and eventually transitioned to a general diet. When he was tolerating his diet, his pain was well controlled with oral pain medications, he was mobilizing without difficulty and his bowel and bladder function was acceptable, he was dismissed to . Our colleagues with the Physical Medicine and Rehabilitation team were consulted to assist the patient with mobility and providing PT and OT services. documented in this encounter Plan of Treatment Upcoming Encounters Date Type Department Care Team (Late st Contact Info) Description 12/27/2023 1:15 PM CDT Clinical Communication Virtual Review in [place], [place] [address] [place] [phone] 12/28/2023 7:45 AM CDT Appointment Department of Radiology, [facility], [address] [phone] Sera Avila P.A.-C., M.S. [address] [place] [phone] 12/28/2023 8:15 AM CDT Appointment Department of Radiology, [facility], in [address] [phone] Vanessa Curiel APRN, RAILWAY SWITCHMAN, D.N.P., M.S.N. [address] [place] [phone] 12/28/2023 2:00 PM CDT Office Visit Department of Neurologic Surgery in [place], [place] [address] [place] [phone] Harmony Lomas APRN, C.N.P., M.S.N. [address] [place] [phone] 01/05/2024 9:45 AM CDT Office Visit Department of Orthopedic Surgery in [place], [place] [address] [place] [phone] Rodrigo Leiva M.D. [address] [place] [phone] Pending Results Name Type Priority Associated Diagnoses Date /Time Prepare Red Blood Cells, 2 Units Blood Bank Routine 11/23/2023 1:06 PM CDT Prepare Red Blood Cells, 2 Units Blood Bank STAT 11/23/2023 1:06 PM CDT Prepare Red Blood Cells Blood Bank STAT 11/23/2023 1:06 PM CDT Prepare Fresh Frozen Plasma : 2 Units Blood Bank Routine 11/26/2023 4:30 PM CDT Prepare Platelets : 2 Units Blood Bank Routine 11/26/2023 12:30 PM CDT Scheduled Orders Name Type Priority Associated Diagnoses Order Schedule Incentive Spirometry - RT/RN Respiratory Care Routine [id number] (omit [id number]) until discontinued starting 11/23/2023 PEP Therapy Respiratory Care Routine respira tory use only - 0700, 1300, 1900 until discontinued starting 11/26/2023 IR Inferior Vena Cava Filter Placement Imaging RAD - Routine (most inpatients and all outpatients) Once for 1 Occurrences starting 11/28/2023 until 11/28/2023 Basic Metabolic Panel Lab Routine AM collection: 0405 (default) for 1 Occurrences starting 12/10/2023 until 12/10/2023 Magnesium Lab Routine AM collection: 0405 (default) for 1 Occurrences starting 12/10/2023 until 12/10/2023 Phosphorus Inorganic Lab Routine AM collection: [id number] (default) for 1 Occurrences starting 12/10/2023 until 12/10/2023 documented as of this encounter Procedures The patient is currently admitted. The information in this section might not be complete until the patient is discharged. Procedure Name Priority Date/Time Associated Diagnosis Comments BASIC METABOLIC PANEL, S/P Routine 12/06/2023 9:06 PM CDT DX CHEST PORTABLE 1 VIEW RAD - Routine (most inpatients and all outpatients) 12/06/2023 7:14 AM CDT CBC WITHOUT DIFFERENTIAL, B Routine 12/05/2023 8:57 PM CDT BASIC METABOLIC PANEL, S/P Routine 12/05/2023 8:57 PM CDT US LOWER EXTREMITY VEINS BILATERAL RAD - Routine (most inpatients and all outpatients) 12/05/2023 11:25 AM CDT DX PELVIS 1-2 VIEWS RAD - Routine (most inpatients and all outpatients) 12/04/2023 12:00 PM CDT DX CHEST PORTABLE 1 VIEW RAD - Timed (for specific dates/times) 12/03/2023 7:32 AM CDT CBC WITH DIFFERENTIAL, B Routine 12/02/2023 8:42 PM CDT BASIC METABOLIC PANEL, S/P Routine 12/02/2023 8:42 PM CDT DX ABDOMEN [...] (for specific dates/times) 12/01/2023 8:18 AM CDT CBC WITHOUT DIFFERENTIAL, B Timed 12/01/2023 7:09 AM CDT BASIC METABOLIC PANEL, S/P Timed 12/01/2023 7:09 AM CDT HYPERINFLATION RIB [...] (for specific dates/times) 11/30/2023 5:34 AM CDT CBC WITHOUT DIFFERENTIAL, B Routine 11/29/2023 9:20 PM CDT BASIC METABOLIC PANEL, S/P Routine 11/29/2023 9:20 PM CDT DX ABDOMEN PORTABLE ANTERIOR POSTERIOR 1 VIEW RAD - Routine (most inpatients and all outpatients) 11/29/2023 11:00 AM CDT RT PULSE OXIMETRY, OVERNIGHT Routine 11/29/2023 7:[address] HEAD WITHOUT IV CONTRAST RAD - Routine (most inpatients and all outpatients) 11/29/2023 7:31 AM CDT CBC WITHOUT DIFFERENTIAL, B Timed 11/29/2023 7:01 AM CDT BASIC METABOLIC PANEL, S/P Timed 11/29/2023 7:01 AM CDT DX CHEST PORTABLE 1 VIEW RAD - Timed (for specific dates/times) 11/29/2023 5:58 AM CDT TROPONIN T, 2H/6H REFLEX, 5TH GEN, P Timed 11/28/2023 11:33 PM CDT TROPONIN T, BASELINE, 5TH GEN, P STAT 11/28/2023 9:01 PM CDT PHOSPHORUS (INORGANIC), S STAT 11/28/2023 9:01 PM CDT MAGNESIUM, S STAT 11/28/2023 9:01 PM CDT BASIC METABOLIC PANEL, S/P STAT 11/28/2023 9:01 PM CDT ECG STAT 11/28/2023 8:57 PM CDT US LOWER EXTREMITY VEINS BILATERAL RAD - Routine (most inpatients and all outpatients) 11/28/2023 3:20 PM CDT CBC WITHOUT DIFFERENTIAL, B Timed 11/28/2023 7:41 AM CDT BASIC METABOLIC PANEL, S/P Timed 11/28/2023 7:41 AM CDT ECG Routine [...] and all outpatients) 11/27/2023 6:36 AM CDT CBC WITHOUT DIFFERENTIAL, B Routine 11/27/2023 6:13 AM CDT PHOSPHORUS (INORGANIC), S Routine 11/27/2023 6:13 AM CDT MAGNESIUM, S Routine 11/27/2023 6:13 AM CDT CREATINE KINASE (CK), S Routine 11/27/2023 6:13 AM CDT CALCIUM, IONIZED, S/B Routine 11/27/2023 6:13 AM CDT BASIC METABOLIC PANEL, S/P Routine 11/27/2023 6:13 AM CDT BASIC METABOLIC [...] ABG W/COOX Routine 11/26/2023 7:49 AM CDT CBC WITHOUT DIFFERENTIAL, B Routine 11/26/2023 7:48 AM CDT MAGNESIUM, S Routine 11/26/2023 7:48 AM CDT CREATINE KINASE (CK), S Routine 11/26/2023 7:48 AM CDT BASIC METABOLIC PANEL, S/P Routine 11/26/2023 7:48 AM CDT THROMBOELASTOGRAPH, KAOLIN, [...] BLOOD CELLS Routine 11/25/2023 9:24 PM CDT CBC WITHOUT DIFFERENTIAL, B STAT 11/25/2023 9:05 PM CDT LACTATE, B/P STAT 11/25/2023 9:05 PM CDT BASIC METABOLIC PANEL, S/P STAT 11/25/2023 9:05 PM CDT THROMBOELASTOGRAPH, KAOLIN, [...] ABG STAT 11/25/2023 1 :31 PM CDT SODIUM, B STAT 11/25/2023 1:31 PM CDT ABG W/COOX STAT 11/25/2023 1:31 PM CDT POTASSIUM, B STAT 11/25/2023 1:31 PM CDT GLUCOSE, WHOLE BLOOD STAT 11/25/2023 1:31 PM CDT CALCIUM, IONIZED, S/B STAT 11/25/2023 1:31 PM CDT AUTOLOGOUS RED BLOOD CELLS-CELL SALVAGE Routine 11/25/2023 12:34 PM CDT HEMOGLOBIN, WHOLE BLOOD STAT 11/25/2023 12:13 PM CDT TRANSFUSE RED BLOOD CELLS Routine 11/25/2023 11:50 AM CDT LACTATE, B STAT 11/25/2023 11:09 AM CDT SODIUM, B STAT 11/25/2023 11:09 AM CDT ABG W/COOX STAT 11/25/2023 11:09 AM CDT POTASSIUM, B STAT 11/25/2023 11:09 AM CDT GLUCOSE, WHOLE BLOOD STAT 11/25/2023 11:09 AM CDT CALCIUM, IONIZED, S/B STAT 11/25/2023 11:09 AM CDT TRANSFUSE RED BLOOD CELLS Routine 11/25/2023 10:17 AM CDT TRANSFUSE RED BLOOD CELLS Routine 11/25/2023 9:36 AM CDT PATIENT STATUS, ABG STAT 11/25/2023 9 :22 AM CDT SODIUM, B STAT 11/25/2023 9:22 AM CDT ABG W/COOX STAT 11/25/2023 9:22 AM CDT POTASSIUM, B STAT 11/25/2023 9:22 AM CDT GLUCOSE, WHOLE BLOOD STAT 11/25/2023 9:22 AM CDT CALCIUM, IONIZED, S/B STAT 11/25/2023 9:22 AM CDT OPEN REDUCTION INTERNAL FIXATION ACETABULUM 11/25/2023 7:24 AM CDT Fracture Acetabulum Closed Initial Left (HCC) Special Needs Supine.Tamiko pelvis set.Shanz pins. PATIENT STATUS Timed 11/25/2023 7:08 AM CDT VENOUS BLOOD GAS W/COOX, B Timed 11/25/2023 7:08 AM CDT CBC WITHOUT DIFFERENTIAL, B Routine 11/25/2023 6:15 AM CDT PHOSPHORUS (INORGANIC), S Routine 11/25/2023 6:15 AM CDT MAGNESIUM, S Routine 11/25/2023 6:15 AM CDT CREATINE KINASE (CK), S Routine 11/25/2023 6:15 AM CDT BASIC METABOLIC PANEL, S/P Routine 11/25/2023 6:15 AM CDT DX CHEST PORTABLE 1 VIEW RAD - Routine (most inpatients and all outpatients) 11/25/2023 5:41 AM CDT ECG STAT 11/25/2023 5:33 AM CDT CBC WITHOUT DIFFERENTIAL, B Timed 11/24/2023 2:48 PM CDT DIPSTICK, U Routine 11/24/2023 9:58 AM CDT MICROSCOPIC MANUAL Routine 11/24/2023 9: 58 AM CDT PH, U Routine 11/24/2023 9:58 AM CDT OSMOLALITY, U Routine 11/24/2023 9:58 AM CDT URINALYSIS WITH MICROSCOPIC Routine 11/24/2023 9:58 AM CDT PATIENT STATUS STAT 11/24/2023 9:26 AM CDT CBC WITHOUT DIFFERENTIAL, B Routine 11/24/2023 9:26 AM CDT LACTATE, B/P STAT 11/24/2023 9:26 AM CDT VENOUS BLOOD GAS W/COOX, B STAT 11/24/2023 9:26 AM CDT CREATINE KINASE (CK), S Routine 11/24/2023 9:26 AM CDT BASIC METABOLIC [...] patients; some inpatients) 11/24/2023 5:27 AM CDT TROPONIN T, 6H, 5TH GEN, P Timed 11/23/2023 10:52 PM CDT CBC WITHOUT DIFFERENTIAL, B Timed 11/23/2023 10:52 PM CDT LACTATE, B/P Timed 11/23/2023 10:52 PM CDT DX PELVIS 1-2 VIEWS RAD - Semiurgent (Fast; most ED patients; some inpatients) 11/23/2023 10:45 PM CDT DX FEMUR LEFT 2 VIEWS RAD - Semiurgent (Fast; most ED patients; some inpatients) 11/23/2023 10:45 PM CDT ORTHOPEDIC INJURY TREATMENT - FRACTURE DISLOCATION Routine 11/23/2023 8:58 PM CDT Fracture Pelvis Multiple Closed With Stable Disruption Pelvis Ring Initial (HCC) TROPONIN T, 2H/6H REFLEX, 5TH GEN, P Timed 11/23/2023 6:55 PM CDT PATIENT STATUS STAT 11/23/2023 4:52 PM CDT VENOUS BLOOD GAS W/COOX, B STAT 11/23/2023 4:52 PM CDT TROPONIN T, BASELINE, 5TH GEN, P STAT 11/23/2023 4:51 PM CDT PH BLOOD GAS STAT 11/23/2023 4:51 PM CDT PROTHROMBIN TIME (PT), P STAT 11/23/2023 4:51 PM CDT CBC WITHOUT DIFFERENTIAL, B STAT 11/23/2023 4:51 PM CDT PHOSPHORUS (INORGANIC), S STAT 11/23/2023 4:51 PM CDT MAGNESIUM, S STAT 11/23/2023 4:51 PM CDT LACTATE, B/P STAT 11/23/2023 4:51 PM CDT HEMOGLOBIN A1C, B STAT 11/23/2023 4:5 1 PM CDT CREATINE KINASE (CK), S STAT 11/23/2023 4:51 PM CDT CALCIUM, IONIZED, [...] patients; some inpatients) 11/23/2023 4:08 PM CDT TROPONIN T, 2H/6H REFLEX, 5TH GEN, P Timed 11/23/2023 2:52 PM CDT BASIC METABOLIC PANEL, S/P STAT 11/23/2023 2:52 PM CDT ECG Routine 11/23/2023 2:45 PM CDT DX FEMUR LEFT 2 VIEWS RAD - Semiurgent (Fast; most ED patients; some inpatients) 11/23/2023 2:10 PM CDT DX PELVIS 3+ VIEWS RAD [...] POCT, B STAT 11/23/2023 1:06 PM CDT TROPONIN T, BASELINE, 5TH GEN, P STAT 11/23/2023 1:06 PM CDT ACTIVATED PARTIAL THROMBOPLASTIN TIME (APTT), P STAT 11/23/2023 1:06 PM CDT PROTHROMBIN TIME (PT), P STAT 11/23/2023 1:06 PM CDT CBC WITH DIFFERENTIAL, B STAT 11/23/2023 1:06 PM CDT PREPARE RED BLOOD CELLS STAT 11/23/2023 1:06 PM CDT PREPARE RED BLOOD CELLS STAT 11/23/2023 1:06 PM CDT PREPARE RED BLOOD CELLS Routine 11/23/2023 1:06 PM CDT TYPE AND SCREEN STAT 11/23/2023 1:06 PM CDT ETHANOL, S STAT 11/23/2023 1:05 PM CDT HEPATIC FUNCTION PANEL, S STAT 11/23/2023 1:05 PM CDT THYROID-STIMULATING HORMONE-SENSITIVE (S-TSH) STAT 11/23/2023 1:05 PM CDT LIPASE, S/P STAT 11/23/2023 1:05 PM CDT BASIC METABOLIC PANEL, S/P STAT 11/23/2023 1:05 PM CDT DX CHEST PORTABLE 1 VIEW RAD - Emergent (Fastest; for the most critically ill patients) 11/23/2023 1:01 PM CDT DX PELVIS 1-2 VIEWS RAD - Emergent (Fastest; for the most critically ill patients) 11/23/2023 1:01 PM CDT THROMBOELASTOGRAPH, KAOLIN, B STAT 11/23/2023 12:59 PM CDT documented in this encounter Results * (ABNORMAL) Basic Metabolic Panel (12/06/2023 9:06 PM CDT) Potassium, S 4.5 3.6 - 5.2 mmol/L [...] Mancilla APRN, C.N.P., D.N.P. LAB BLOOD ADD-ON [facility] [address] [place] [address], [place] [facility] [address] [place] [address] * DX Chest Portable 1 View (12/06/2023 7:14 AM CDT) Anatomical Region Laterality Modality Chest, [...] IMG D IAGNOSTIC IMAGING PROCEDURES * (ABNORMAL) Basic Metabolic Panel (12/05/2023 8:57 PM CDT) Pathologist [facility] Potassium, S 4.9 3.6 - 5.2 mmol/L 12/05/2023 9:42 PM CDT DTL Sodium, S 137 135 - 145 mmol/L 12/05/2023 9:42 PM CDT DTL Chloride, S 102 98 - 107 mmol/L 12/05/2023 9:42 PM CDT DTL Bicarbonate, S 27 22 - 29 mmol/L 12/05/2023 9:42 PM CDT DTL Anion Gap 8 7 - 15 12/05/2023 9:42 PM CDT DTL BUN (Blood Urea Nitrogen), S 32(H) 8 - 24 mg/dL 12/05/2023 9:42 PM CDT DTL Creatinine 1.17 0.74 - 1.35 mg/dL 12/05/2023 9:42 PM CDT DTL Estimated GFR (eGFR) 63 >=60 mL/min/BSA 12/05/2023 9:42 PM CDT DTL Comment: Estimated GFR calculated using the 2020 CKD_EPI creatinine equation. Calcium, Total, S 8.3(L) 8.8 - 10.2 mg/dL 12/05/2023 9:42 PM CDT DTL Glucose, S 120 70 - 140 mg/dL 12/05/2023 9:42 PM CDT DTL Blood (Blood, Venous) 12/05/2023 8:57 PM CDT 12/05/2023 9:27 PM CDT Lalita Bacon APRN C.N.P., D.N.P. LAB B LOOD ADD-ON Performing Organization Address City/[facility]/ZIP Co de Phone Number [facility] [address] [place] [address], [facility] DTL [facility] [address] [place] [address] * (ABNORMAL) CBC without Differential (12/05/2023 8:57 PM CDT) Pathologist [facility] Hemoglobin 10.4(L) 13.2 - 16.6 g/dL 12/05/2023 [...] CDT 12/05/2023 9:13 PM CDT Lalita Bacon APRN C.N.P., D.N.P. LAB B LOOD ADD-ON Performing Organization Address City/[facility]/ZIP Co de Phone Number [facility] [address] [place] [address], [place] DTL [address] [address] * US Lower Extremity Veins Bilateral (12/05/2023 11:25 AM CDT) Anatomical Region Laterality Modality Lower Extremity, Ultrasound [...] and management can be found on the [employer] site. Link [email or web address] [email or web address]/[email or web address]/[email or web address]/[email or web address] Procedure Note Barry Bennett M.D., M.S. - [...] thrombosis and management can be found on [email or web address] site. [email or web address] [email or web address] 1725 IMPRESSION: Unchanged acute DVT in the left soleal vein and in a small adjacent venousbranch. Lalita Bacon APRN, C.N.P., D.N.P. IMG U S PROCEDURES * DX Pelvis 1-2 Views (12/04/2023 12:00 PM CDT) Anatomical Region Laterality Modality Pelvis, Musculoskeletal RST [...] D.N.P. IMG D IAGNOSTIC IMAGING PROCEDURES * DX Chest Portable 1 View (12/03/2023 7:32 AM CDT) Anatomical Region Laterality Modality Chest, Thoracic RST LOS, Tho racic ARZ LOS, Thoracic FLA LOS N/A Digital Radiography Impressions 12/03/2023 7:50 AM CDT Since yesterday, decreased lung volumes with increasing perihilar and bibasilar atelectasis. Remainder not significantly changed. ??Low lung volumes accentuate the cardiomediastinal silhouette and pulmonary vascularity. No acute displaced rib fracture visualized. No definite pneumothorax. Aortic calcification. Narrative 12/03/2023 7:50 AM CDT EXAM: ??DX CHEST PORTABLE 1 VIEW Procedure Note Rommel Danielle M.D. - 12/03/2023 EXAM: DX CHEST PORTABLE 1 VIEW IMPRESSION: Since yesterday, decreased lung volumes with increasing perihilar andbibasilar atelectasis. Remainder not significantly changed. Low lungvolumes accentuate the cardiomediastinal silhouette and pulmonaryvascularity. No acute displaced rib fracture visualized. No definite pneumothorax. Aortic calcification. Lalita Bacon APRN, C.N.P., D.N.P. IMG D IAGNOSTIC IMAGING PROCEDURES * (ABNORMAL) Basic Metabolic Panel (12/02/2023 8:42 PM CDT) Potassium, S 4.5 3.6 - 5.2 mmol/L 12/02/2023 9:34 PM CDT DTL Sodium, S 137 135 - 145 mmol/L 12/02/2023 9:34 PM CDT DTL Chloride, S 102 98 - 107 mmol/L 12/02/2023 9:34 PM CDT DTL Bicarbonate, S 26 22 - 29 mmol/L 12/02/2023 9:34 PM CDT DTL Anion Gap 9 7 - 15 12/02/2023 9:34 PM CDT DTL BUN (Blood Urea Nitrogen), S 24 8 - 24 mg/dL 12/02/2023 9:34 PM CDT DTL Creatinine 0.99 0.74 - 1.35 mg/dL 12/02/2023 9:34 PM CDT DTL Estimated GFR (eGFR) 77 >=60 mL/min/BSA 12/02/2023 9:34 PM CDT DTL Comment: Estimated GFR calculated using the 2020 CKD_EPI creatinine equation. Calcium, Total, S 8.1(L) 8.8 - 10.2 mg/dL 12/02/2023 9:34 PM CDT DTL Glucose, S 117 70 - 140 mg/dL 12/02/2023 9:34 PM CDT DTL Blood (Blood, Venous) 12/02/2023 8:42 PM CDT 12/02/2023 9:19 PM CDT Lalita Bacon APRN, C.N.P., D.N.P. LAB B LOOD ADD-ON [facility] [address] [place] [address], [facility] [address] [place] [address] * (ABNORMAL) CBC with Differential, Blood (12/02/2023 8:42 PM CDT) Hemoglobin 10.6(L) 13.2 - 16.6 g/dL 12/02/2023 [...] - 6.45 x10(9)/L 12/02/2023 10:11 PM CDT PM Comment:Rechecked Lymphocytes 0.90(L) 0.95 - 3.07 x10(9)/L [...] APRN, C.N.P., D.N.P. LAB B LOOD ADD-ON [facility] [address] [place] [address], [facility] DTL [facility] [address] [place] [address] [facility] [address] [place] [address] * DX Abdomen 1 View (12/02/2023 5:41 AM CDT) Anatomical Region Laterality Modality Abdomen, Abdominal RST [...] without IV Contrast (12/01/2023 12:11 PM CDT) Anatomical Region Laterality Modality Head, Neuroradiology RST [...] Meyer P.A.-C. IMG CT PROCEDURES * DX Chest Portable 1 View (12/01/2023 8:18 AM CDT) Anatomical Region Laterality Modality Chest, Thoracic RST LOS, Tho racic ARZ LOS, Thoracic FLA LOS N/A Digital Radiography Impressions 12/01/2023 8:40 AM CDT Since yesterday, pulmonary vascularity has improved and is now nearly within normal limits. Exam otherwise unchanged. Trace bilateral pleural effusions. Bibasilar atelectasis. No pneumothorax. Narrative 12/01/2023 8:40 AM CDT EXAM: ??DX CHEST PORTABLE 1 VIEW Procedure Note Alis Lozada M.D. - 12/01/2023 EXAM: DX CHEST PORTABLE 1 VIEW IMPRESSION: Since yesterday, pulmonary vascularity has improved and is now nearlywithin normal limits. Exam otherwise unchanged. Trace bilateral pleuraleffusions. Bibasilar atelectasis. No pneumothorax. Naveed Dan P.A.-C. IMG DIAGNOSTIC IMAGING PROCEDURES * DX Abdomen Portable Anterior Posterior 1 View (12/01/2023 8:18 AM CDT) Anatomical Region Laterality Modality Abdomen, Abdominal RST [...] Dan P.A.-C. IMG DIAGNOSTIC IMAGING PROCEDURES * (ABNORMAL) Basic Metabolic Panel (12/01/2023 7:09 AM CDT) Potassium, S 4.4 3.6 - 5.2 mmol/L 12/01/2023 8:24 AM CDT DTL Sodium, S 136 135 - 145 mmol/L 12/01/2023 8:24 AM CDT DTL Chloride, S 103 98 - 107 mmol/L 12/01/2023 8:24 AM CDT DTL Bicarbonate, S 26 22 - 29 mmol/L 12/01/2023 8:24 AM CDT DTL Anion Gap 7 7 - 15 12/01/2023 8:24 AM CDT DTL BUN (Blood Urea Nitrogen), S 23 8 - 24 mg/dL 12/01/2023 8:24 AM CDT DTL Creatinine 0.97 0.74 - 1.35 mg/dL 12/01/2023 8:24 AM CDT DTL Estimated GFR (eGFR) 78 >=60 mL/min/BSA 12/01/2023 8:24 AM CDT DTL Comment: Estimated GFR calculated using the 2020 CKD_EPI creatinine equation. Calcium, Total, S 7.8(L) 8.8 - 10.2 mg/dL 12/01/2023 8:24 AM CDT DTL Glucose, S 115 70 - 140 mg/dL 12/01/2023 8:24 AM CDT DTL Blood (Blood, Venous) 12/01/2023 7:09 AM CDT 12/01/2023 8:03 AM CDT Naveed Dan P.A.-C. LAB BLOOD ADD- ON [address] [address], [facility] [address] [place] [address] * (ABNORMAL) CBC without Differential (12/01/2023 7:09 AM CDT) Hemoglobin 10.7(L) 13.2 - 16.6 g/dL 12/01/2023 8:13 AM CDT DTL Hematocrit 33.0(L) 38.3 - 48.6 % 12/01/2023 8:13 AM CDT DTL Erythrocytes 3.60(L) 4.35 - 5.65 x10(12)/L 12/01/2023 8:13 AM CDT DTL MCV 91.7 78.2 - 97.9 fL 12/01/2023 8:13 AM CDT DTL RBC Distrib Width 14.4 11.8 - 14.5 % 12/01/2023 8:13 AM CDT DTL Platelet Count 179 135 - 317 x10(9)/L 12/01/2023 8:13 AM CDT DTL Leukocytes 5.2 3.4 - 9.6 x10(9)/L 12/01/2023 8:13 AM CDT DTL Blood (Blood, Venous) 12/01/2023 7:09 AM CDT 12/01/2023 7:50 AM CDT Naveed Dan P.A.-C. LAB BLOOD ADD- ON [facility] [address] [place] [address], [facility] [address] [place] [address] * DX Abdomen 1 View (11/30/2023 5:45 AM CDT) Anatomical Region Laterality Modality Abdomen, Abdominal RST LOS, Abdominal ARZ LOS, Abdominal FLA LOS N/A Digital Radiography Impressions 11/30/2023 [...] Dan P.A.-C. IMG DIAGNOSTIC IMAGING PROCEDURES * CT Head without IV Contrast (11/30/2023 5:34 AM CDT) Anatomical Region Laterality Modality Head, Neuroradiology RST LOS , Neuroradiology ARZ LOS, Neuroradiology FLA LOS N/A Computed Tomography, Compute d Tomography 11/30/2023 5:36 AM CDT Impressions 11/30/2023 7:52 AM CDT Decreased small amount of layering blood products in the left lateral ventricle. No new hemorrhage. Narrative 11/30/2023 7:52 AM CDT EXAM: CT HEAD WITHOUT IV CONTRAST COMPARISON: CT head 11/29/2023 FINDINGS: Slightly decreased small amount of layering blood products in the occipital horn of the left lateral ventricle. Previously seen intraparenchymal blood products are no longer well visualized. No other significant change. No new intracranial hemorrhage. Left frontal scalp hematoma. Mild cerebral and cerebellar parenchymal volume loss. Mild leukoaraiosis. Intracranial arterial calcifications. Procedure Note Georgina Apple M.D. - 11/30/2023 EXAM: CT HEAD WITHOUT IV CONTRAST COMPARISON: CT head 11/29/2023 FINDINGS: Slightly decreased small amount of layering blood products inthe occipital horn of the left lateral ventricle. Previously seenintraparenchymal blood products are no longer well visualized. No othersignificant change. No new intracranial hemorrhage. Left frontal scalp hematoma. Mild cerebral and cerebellarparenchymal volume loss. Mild leukoaraiosis. Intracranial arterialcalcifications. IMPRESSION: Decreased small amount of layering blood products in the left lateralventricle. No new hemorrhage. Naveed Dan P.A.-C. [facility] [place] PROCEDU RES * (ABNORMAL) Basic Metabolic Panel (11/29/2023 9:20 PM CDT) Potassium, S 4.7 3.6 - 5.2 mmol/L 11/29/2023 10:01 PM CDT DTL Sodium, S 138 135 - 145 mmol/L 11/29/2023 10:01 PM CDT DTL Chloride, S 104 98 - 107 mmol/L 11/29/2023 10:01 PM CDT DTL Bicarbonate, S 25 22 - 29 mmol/L 11/29/2023 10:01 PM CDT DTL Anion Gap 9 7 - 15 11/29/2023 10:01 PM CDT DTL BUN (Blood Urea Nitrogen), S 20 8 - 24 mg/dL 11/29/2023 10:01 PM CDT DTL Creatinine 0.91 0.74 - 1.35 mg/dL 11/29/2023 10:01 PM CDT DTL Estimated GFR (eGFR) 85 >=60 mL/min/BSA 11/29/2023 10:01 PM CDT DTL Comment: Estimated GFR calculated using the 2020 CKD_EPI creatinine equation. Calcium, Total, S 7.6(L) 8.8 - 10.2 mg/dL 11/29/2023 10:01 PM CDT DTL Glucose, S 159(H) 70 - 140 mg/dL 11/29/2023 10:01 PM CDT DTL Blood (Blood, Venous) 11/29/2023 9:20 PM CDT 11/29/2023 9:46 PM CDT Naveed Dan P.A.-C. LAB BLOOD ADD- ON [facility] [address] [place] [address], [facility] [address] [place] [address] * (ABNORMAL) CBC without Differential (11/29/2023 9:20 PM CDT) Pathologist [facility] Hemoglobin 10.4(L) 13.2 - 16.6 g/dL 11/29/2023 9:42 PM CDT DTL Hematocrit 32.8(L) 38.3 - 48.6 % 11/29/2023 9:42 PM CDT DTL Erythrocytes 3.53(L) 4.35 - 5.65 x10(12)/L 11/29/2023 9:42 PM CDT DTL MCV 92.9 78.2 - 97.9 fL 11/29/2023 9:42 PM CDT DTL RBC Distrib Width 14.6(H) 11.8 - 14.5 % 11/29/2023 9:42 PM CDT DTL Platelet Count 160 135 - 317 x10(9)/L 11/29/2023 9:42 PM CDT DTL Leukocytes 5.7 3.4 - 9.6 x10(9)/L 11/29/2023 9:42 PM CDT DTL Blood (Blood, Venous) 11/29/2023 9:20 PM CDT 11/29/2023 9:36 PM CDT Naveed Dan P.A.-C. LAB BLOOD ADD- ON [facility] [address] [place] [address], [place] DTL [facility] [address] [place] [address] * DX Abdomen Portable Anterior Posterior 1 View (11/29/2023 11:00 AM CDT) Anatomical Region Laterality Modality Abdomen, Abdominal RST LOS, Abdominal ARZ LOS, Abdominal FLA LOS N/A Digital Radiography Impressions 11/29/2023 11:26 AM CDT Mild decrease in gaseous distention of both loops of small and large bowel since 11/27/2023 suggestive of improving ileus. No evidence of obstruction. Plate and screw fixation left pelvis. Surgical drain in the soft tissues. Narrative 11/29/2023 11:26 AM CDT EXAM: ??DX ABDOMEN PORTABLE ANTERIOR POSTERIOR 1 VIEW Procedure Note Tk Hahn M.D. - 11/29/2023 EXAM: DX ABDOMEN PORTABLE ANTERIOR POSTERIOR 1 VIEW IMPRESSION: Mild decrease in gaseous distention of both loops of small and large bowelsince 11/27/2023 suggestive of improving ileus. No evidence of obstruction.Plate and screw fixation left pelvis. Surgical drain in the softtissues. Naveed Dan P.A.-C. IMG DIAGNOSTIC IMAGING PROCEDURES * RT Pulse Oximetry, Overnight (11/29/2023 7:52 AM CDT) 11/28/2023 Impressions BETSY LAYNE ESE CORDOVA - 11/29/2023 1:47 PM CDT Overnight oximetry [...] current supplemental oxygen. Physician: Hema Owens M.D. [id number] Narrative Procedure Note Hema Owens M.D. - [...] thecurrent supplemental oxygen. Physician: Hema Owens M.D. [id number] Josee Rose M.D. [facility] ORDER[facility] LES [facility] EAP * CT Head without IV Contrast (11/29/2023 7:31 AM CDT) Anatomical Region Laterality Modality Head, Neuroradiology RST LOS , Neuroradiology ARZ LOS, Neuroradiology FLA LOS N/A Computed Tomography, Compute d Tomography 11/29/2023 7:31 AM CDT Impressions 11/29/2023 8:32 AM CDT Expected temporal evolution. Narrative 11/29/2023 8:32 AM CDT EXAM: CT HEAD WITHOUT IV CONTRAST COMPARISON: November 27, 2023, November 26, 2023. FINDINGS: Compared to the prior examinations are exhibit expected temporal evolution of the intraventricular and intraparenchymal hemorrhages with decreased conspicuity the parenchymal hemorrhages. Minimal decreased size left interventricular hemorrhage occipital horn. Procedure Note Sukhjinder Lamb M.D. - 11/29/2023 EXAM: CT HEAD WITHOUT IV CONTRAST COMPARISON: November 27, 2023, November 26, 2023. FINDINGS: Compared to the prior examinations are exhibit expected temporalevolution of the intraventricular and intraparenchymal hemorrhages withdecreased conspicuity the parenchymal hemorrhages. Minimal decreased sizeleft interventricular hemorrhage occipital horn. IMPRESSION: Expected temporal evolution. Naveed Dan P.A.-C. IMG CT PROCEDU RES * (ABNORMAL) Basic Metabolic Panel (11/29/2023 7:01 AM CDT) Potassium, S 4.1 3.6 - 5.2 mmol/L 11/29/2023 8:23 AM CDT DTL Sodium, S 139 135 - 145 mmol/L 11/29/2023 8:23 AM CDT DTL Chloride, S 104 98 - 107 mmol/L 11/29/2023 8:23 AM CDT DTL Bicarbonate, S 26 22 - 29 mmol/L 11/29/2023 8:23 AM CDT DTL Anion Gap 9 7 - 15 11/29/2023 8:23 AM CDT DTL BUN (Blood Urea Nitrogen), S 20 8 - 24 mg/dL 11/29/2023 8:23 AM CDT DTL Creatinine 0.97 0.74 - 1.35 mg/dL 11/29/2023 8:23 AM CDT DTL Estimated GFR (eGFR) 78 >=60 mL/min/BSA 11/29/2023 8:23 AM CDT DTL Comment: Estimated GFR calculated using the 2020 CKD_EPI creatinine equation. Calcium, Total, S 7.5(L) 8.8 - 10.2 mg/dL 11/29/2023 8:23 AM CDT DTL Glucose, S 123 70 - 140 mg/dL 11/29/2023 8:23 AM CDT DTL Blood (Blood, Venous) 11/29/2023 7:01 AM CDT 11/29/2023 8:02 AM CDT Naveed Dan P.A.-C. LAB BLOOD ADD- ON [facility] [address] [place] [address], [place] DTL [facility] [address] [place] [address] * (ABNORMAL) CBC without Differential (11/29/2023 7:01 AM CDT) [facility] Hemoglobin 10.7(L) 13.2 - 16.6 g/dL 11/29/2023 8:26 AM CDT DTL Hematocrit 33.6(L) 38.3 - 48.6 % 11/29/2023 8:26 AM CDT DTL Erythrocytes 3.60(L) 4.35 - 5.65 x10(12)/L 11/29/2023 8:26 AM CDT DTL MCV 93.3 78.2 - 97.9 fL 11/29/2023 8:26 AM CDT DTL RBC Distrib Width 14.6(H) 11.8 - 14.5 % 11/29/2023 8:26 AM CDT DTL Platelet Count 144 135 - 317 x10(9)/L 11/29/2023 8:26 AM CDT DTL Leukocytes 4.5 3.4 - 9.6 x10(9)/L 11/29/2023 8:26 AM CDT DTL Blood (Blood, Venous) 11/29/2023 7:01 AM CDT 11/29/2023 7:51 AM CDT Naveed Dan P.A.-C. LAB BLOOD ADD- ON [facility] [address] [address], [facility] [address] [address] * DX Chest Portable 1 View (11/29/2023 5:58 AM CDT) Anatomical Region Laterality Modality Chest, Thoracic RST LOS, Tho racic ARZ LOS, Thoracic FLA LOS N/A Digital Radiography Impressions 11/29/2023 6:44 AM CDT Shallow inspiration with bibasilar opacities, atelectasis or consolidation. Mild improved aeration compared with 11/27/2023. No definite effusions. Narrative 11/29/2023 6:44 AM CDT EXAM: ??DX CHEST PORTABLE 1 VIEW Procedure Note Jared Kumar M.D. - 11/29/2023 EXAM: DX CHEST PORTABLE 1 VIEW IMPRESSION: Shallow inspiration with bibasilar opacities, atelectasis orconsolidation. Mild improved aeration compared with 11/27/2023. No definiteeffusions. Naveed Dan P.A.-C. IMG DIAGNOSTIC IMAGING PROCEDURES * (ABNORMAL) Troponin T, 2 Hour with 6 Hour Reflex, 5th Gen (11/28/2023 11:33 PM CDT) Troponin T, 2 hr, 5th gen 32(H) <=15 ng/L 11/29/2023 12:20 AM CDT STMA 2H Delta 1 ng/L 11/29/2023 12:20 AM CDT STMA Comment:6 hour collection no t indicated. 2H Delta Interp Not Changing 11/29/2023 12:20 AM CDT STMA Blood 11/28/2023 11:3 3 PM CDT 11/28/2023 11:40 PM CDT Barb Davies M.D. LAB BLOOD TROPONIN Performing Organization Address City/[facility]/ZIP Co de Phone Number [facility] [address] [place] [address], [facility] STMA [facility] [address] [place] [address] * Phosphorus Inorganic (11/28/2023 9:01 PM CDT) Pathologist [facility] Phosphorus (Inorganic), S 2.5 2.5 - 4.5 mg/dL 11/28/2023 10:02 PM CDT DTL Blood (Blood, Venous) 11/28/2023 9:01 PM CDT 11/28/2023 9:49 PM CDT Barb Davies M.D. LAB BLOOD ADD-ON [facility] [address] [place] [address], [facility] DTL [facility] [address] [place] [id number] * Magnesium (11/28/2023 9:01 PM CDT) Magnesium, S 2.1 1.7 - 2.3 mg/dL 11/28/2023 10:02 PM CDT DTL Blood (Blood, Venous) 11/28/2023 9:01 PM CDT 11/28/2023 9:49 PM CDT Barb Davies M.D. LAB BLOOD ADD-ON [facility] [address] [place] [address], [facility] [address] [place] [address] * (ABNORMAL) Basic Metabolic Panel (11/28/2023 9:01 PM CDT) Potassium, P 4.4 3.6 - 5.2 mmol/L 11/28/2023 10:03 PM CDT STMA Sodium, P 142 135 - 145 mmol/L 11/28/2023 10:03 PM CDT STMA Chloride, P 104 98 - 107 mmol/L 11/28/2023 10:03 PM CDT STMA Bicarbonate, P 25 22 - 29 mmol/L 11/28/2023 10:03 PM CDT STMA Anion Gap, P 13 7 - 15 11/28/2023 10:03 PM CDT STMA BUN (Blood Urea Nitrogen), P 23 8 - 24 mg/dL 11/28/2023 10:03 PM CDT STMA Creatinine 0.94 0.74 - 1.35 mg/dL 11/28/2023 10:03 PM CDT STMA Estimated GFR (eGFR) 81 >=60 mL/min/BSA 11/28/2023 10:03 PM CDT STMA Comment: Estimated GFR calculated using the 2020 CKD_EPI creatinine equation. Calcium, Total, P 7.7(L) 8.8 - 10.2 mg/dL 11/28/2023 10:03 PM CDT STMA Glucose, P 142(H) 70 - 140 mg/dL 11/28/2023 10:03 PM CDT STMA Blood (Blood, Venous) 11/28/2023 9:01 PM CDT 11/28/2023 9:06 PM CDT Barb Davies M.D. LAB BLOOD ADD-ON Performing Organization Address City/[facility]/ZIP Co de Phone Number [facility] [address] [place] [address] * (ABNORMAL) Troponin T, Baseline with 2 Hour/6 Hour Reflex Biomarker Panel (11/28/2023 9:01 PM CDT) Pathologist [facility] Troponin T, Baseline, 5th gen 31(H) <=15 ng/L 11/28/2023 9:26 PM CDT [facility] Blood (Blood, Venous) 11/28/2023 9:01 PM CDT 11/28/2023 9:06 PM CDT Barb Davies M.D. LAB BLOOD TROPONIN Performing Organization Address [facility] Co de Phone Number [facility] [address] [place] [address] * ECG 12 Lead (11/28/2023 8:57 PM CDT) Pathologist [facility] Ventricular Rate ECG/Min 88 BPM MUSE [place] Interval 136 ms MUSE QRSD Interval 86 ms MUSE QT Interval 384 ms MUSE QTC Interval 464 ms MUSE P [place] 33 degrees MUSE R [place] 7 degrees MUSE T Wave [place] 10 degrees MUSE 11/28/2023 8:57 PM CDT [...] Davies M.D. ECG ORDERABLES MUSE NA * US Lower Extremity Veins Bilateral (11/28/2023 3:20 PM CDT) Anatomical Region Laterality Modality Lower Extremity, Ultrasound RST LOS, Ultrasound ARZ LOS, Ultrasound FLA LOS Bilateral Ultrasound Impressions 11/28/2023 3:44 PM CDT Positive for acute DVT in the left lower extremity involving the soleal vein. Narrative 11/28/2023 3:44 PM CDT EXAM: US LOWER EXTREMITY VEINS BILATERAL Exam performed with color and spectral Doppler analysis. COMPARISON: None. FINDINGS: RIGHT: Common Femoral Vein: Negative. Profunda [...] and management can be found on the [employer] site. Link [email or web address] Findings discussed via telephone with Naveed Dan PA-C ([id number]) at 15:44 on 11/28/2023. Procedure Note Delbert Andrew M.D. - 11/28/2023 EXAM: US LOWER EXTREMITY VEINS BILATERAL Exam performed with color and spectral Doppler analysis. COMPARISON: None. FINDINGS: RIGHT: Common Femoral Vein: Negative. Profunda [...] thrombosis and management can be found on theAsk[employer]grar[employer]ert site. [email or web address]/[email or web address]/[email or web address] [id number] Findings discussed via telephone with Naveed Dan PA-C ([id number]) at15:44 on 11/28/2023. IMPRESSION: Positive for acute DVT in the left lower extremity involving the solealvein. Naveed Dan P.A.-C. IMG US PROCEDU RES * (ABNORMAL) Basic Metabolic Panel (11/28/2023 7:41 AM CDT) [facility] Potassium, S 3.9 3.6 - 5.2 mmol/L 11/28/2023 8:54 AM CDT DTL Sodium, S 142 135 - 145 mmol/L 11/28/2023 8:54 AM CDT DTL Chloride, S 105 98 - 107 mmol/L 11/28/2023 8:54 AM CDT DTL Bicarbonate, S 28 22 - 29 mmol/L 11/28/2023 8:54 AM CDT DTL Anion Gap 9 7 - 15 11/28/2023 8:54 AM CDT DTL BUN (Blood Urea Nitrogen), S 23 8 - 24 mg/dL 11/28/2023 8:54 AM CDT DTL Creatinine 1.01 0.74 - 1.35 mg/dL 11/28/2023 8:54 AM CDT DTL Estimated GFR (eGFR) 75 >=60 mL/min/BSA 11/28/2023 8:54 AM CDT DTL Comment: Estimated GFR calculated using the 2020 CKD_EPI creatinine equation. Calcium, Total, S 7.4(L) 8.8 - 10.2 mg/dL 11/28/2023 8:54 AM CDT DTL Glucose, S 125 70 - 140 mg/dL 11/28/2023 8:54 AM CDT DTL Blood (Blood, Venous) 11/28/2023 7:41 AM CDT 11/28/2023 8:29 AM CDT Naveed Dan P.A.-C. LAB BLOOD ADD- ON [facility] [place] [address], [facility] [place] [address] * (ABNORMAL) CBC without Differential (11/28/2023 7:41 AM CDT) Hemoglobin 10.2(L) 13.2 - 16.6 g/dL 11/28/2023 8:52 AM CDT DTL Hematocrit 32.1(L) 38.3 - 48.6 % 11/28/2023 8:52 AM CDT DTL Erythrocytes 3.48(L) 4.35 - 5.65 x10(12)/L 11/28/2023 8:52 AM CDT DTL MCV 92.2 78.2 - 97.9 fL 11/28/2023 8:52 AM CDT DTL RBC Distrib Width 14.6(H) 11.8 - 14.5 % 11/28/2023 8:52 AM CDT DTL Platelet Count 133(L) 135 - 317 x10(9)/L 11/28/2023 8:52 AM CDT DTL Leukocytes 4.0 3.4 - 9.6 x10(9)/L 11/28/2023 8:52 AM CDT DTL Blood (Blood, Venous) 11/28/2023 7:41 AM CDT 11/28/2023 8:06 AM CDT Naveed Dan P.A.-C. LAB BLOOD ADD- ON Performing Organization Address [facility] Co de Phone Number [facility] [address] [place] [address], [facility] DTL [facility] [address] [place] [address] * ECG 12 Lead (11/28/2023 4:04 AM CDT) Ventricular Rate ECG/Min 59 BPM MUSE NJ Interval 126 ms MUSE QRSD Interval 88 ms MUSE QT Interval 436 ms MUSE QTC Interval 431 ms MUSE P [place] 46 degrees MUSE R [place] 45 degrees MUSE T Wave [place] 23 degrees MUSE 11/28/2023 4:04 AM CDT 11/28/2023 4:07 AM CDT Impressions MUSE - 11/28/2023 4:07 AM CDT Sinus bradycardia Nonspecific T wave abnormality When compared with ECG of 26-Nov-2023 08:06, No significant change was found Reviewed by ANTONIETA Anand Narrative Procedure Note Tanvir Veras Jr., M.D. - 11/28/2023 IMPRESSION: Sinus bradycardia Nonspecific T wave abnormality When compared with ECG of 26-Nov-2023 08:06, No significant change was found Reviewed by ANTONIETA Anand Josee Rose M.D. ECG ORDERABLES Performing Organization Address [facility] Co de Phone Number MUSE NA * Phosphorus Inorganic (11/27/2023 6:37 PM CDT) Phosphorus (Inorganic), S 2.8 2.5 - 4.5 mg/dL 11/27/2023 7:49 PM CDT DTL Blood (Blood, Venous) 11/27/2023 6:37 PM CDT 11/27/2023 7:19 PM CDT Serafin Ford M.D. LAB BLOOD ADD-ON [facility] [address] [place] [address], [facility] DTL [facility] [address] [place] [address] * (ABNORMAL) Basic Metabolic Panel (11/27/2023 6:37 PM CDT) [facility] Potassium, P 3.9 3.6 - 5.2 mmol/L 11/27/2023 7:13 PM CDT STMA Sodium, P 142 135 - 145 mmol/L 11/27/2023 7:13 PM CDT STMA Chloride, P 104 98 - 107 mmol/L 11/27/2023 7:13 PM CDT STMA Bicarbonate, P 27 22 - 29 mmol/L 11/27/2023 7:13 PM CDT STMA Anion Gap, P 11 7 - 15 11/27/2023 7:13 PM CDT STMA BUN (Blood Urea Nitrogen), P 21 8 - 24 mg/dL 11/27/2023 7:13 PM CDT STMA Creatinine 0.99 0.74 - 1.35 mg/dL 11/27/2023 7:13 PM CDT STMA Estimated GFR (eGFR) 77 >=60 mL/min/BSA 11/27/2023 7:13 PM CDT STMA Comment: Estimated GFR calculated using the 2020 CKD_EPI creatinine equation. Calcium, Total, P 7.8(L) 8.8 - 10.2 mg/dL 11/27/2023 7:13 PM CDT STMA Glucose, P 120 70 - 140 mg/dL 11/27/2023 7:13 PM CDT STMA Blood (Blood, Venous) 11/27/2023 6:37 PM CDT 11/27/2023 6:55 PM CDT Serafin Ford M.D. LAB BLOOD ADD-ON [facility] [address] [place] [address], [place] STMA [facility] [address] [place] [address] * DX Chest Portable 1 View (11/27/2023 2:34 PM CDT) Anatomical Region Laterality Modality Chest, Thoracic RST LOS, Tho racic ARZ LOS, Thoracic FLA LOS N/A Digital Radiography Impressions 11/27/2023 2:51 PM CDT Since 11/26/2023, no substantial change. Similar bibasilar airspace and interstitial opacities. Trace pleural effusions. Obscured heart borders. Degenerative and hypertrophic changes of the spine. Narrative 11/27/2023 2:51 PM CDT EXAM: DX CHEST PORTABLE 1 VIEW Procedure Note Mitch Gasca M.D., M.S. - 11/27/2023 EXAM: DX CHEST PORTABLE 1 VIEW IMPRESSION: Since 11/26/2023, no substantial change. Similar bibasilar airspace andinterstitial opacities. Trace pleural effusions. Obscured heart borders.Degenerative and hypertrophic changes of the spine. Serafin Ford M.D. IMG DIAGNOSTIC IMAGI NG PROCEDURES * DX Abdomen Portable Anterior Posterior 1 View (11/27/2023 2:27 PM CDT) Anatomical Region Laterality Modality Abdomen, Abdominal RST LOS, Abdominal ARZ LOS, Abdominal FLA LOS N/A Digital Radiography Impressions 11/27/2023 2:30 PM CDT Mild gaseous filling of the small bowel and colon favors an ileus. Nothing for significant obstruction. Extensive orthopedic fixation left pelvis. Left pelvic soft tissue drainage catheter. Narrative 11/27/2023 2:30 PM CDT EXAM: ??DX ABDOMEN PORTABLE ANTERIOR POSTERIOR 1 VIEW Procedure Note Chavez Lozoya M.D. - 11/27/2023 EXAM: DX ABDOMEN PORTABLE ANTERIOR POSTERIOR 1 VIEW IMPRESSION: Mild gaseous filling of the small bowel and colon favors an ileus. Nothingfor significant obstruction. Extensive orthopedic fixation left pelvis.Left pelvic soft tissue drainage catheter. Serafin RANDHAWA DIAGNOSTIC IMAGI NG PROCEDURES * CT Head without IV Contrast (11/27/2023 6:36 AM CDT) Anatomical Region Laterality Modality Head, Neuroradiology RST LOS , Neuroradiology ARZ LOS, Neuroradiology FLA LOS N/A Computed Tomography, Compute d Tomography 11/27/2023 6:33 AM CDT Impressions 11/27/2023 10:30 AM CDT 1. ??Slightly increased number and conspicuity of punctate foci of intraparenchymal hemorrhage, for example in the superior left frontal lobe and right internal capsule. No appreciable mass effect. 2. ??Decreased layering blood products within the left lateral ventricle. Narrative 11/27/2023 10:30 AM CDT EXAM: CT HEAD WITHOUT IV CONTRAST COMPARISON: CT head on 11/26/2023 FINDINGS: Since 11/26/2023, increased conspicuity of several punctate foci of intraparenchymal hemorrhage in the superior left frontal lobe (4 / 210, 206, 197). Additional increased hyperdense punctate foci about the right internal capsule, superimposed upon a otherwise also stable presumed calcifications within the globus pallidus, suggests tiny intraparenchymal hemorrhage (3/18). Additional subtle hyperdensities are again seen along the left frontal convexity, favored to represent subarachnoid hemorrhage (3/25). Stable tiny left frontal subdural hygroma. Slightly decreased layering blood products within the occipital horn of the left lateral ventricle. No evidence of acute infarct. Similar mild patchy hypodensities in the bifrontal lobes, favored to represent chronic microvascular ischemic change. No significant cerebral edema or mass effect. Basal cisterns are patent. Mild generalized parenchymal volume loss, commensurate for age. Similar to slightly decreased size of the left subgaleal hematoma. Paranasal sinuses and mastoid air cells are clear. Bilateral pseudophakia. Osmel Hawthorne M.D., M.S. IMG CT PRO CEDURES * (ABNORMAL) CK (Creatine Kinase) (11/27/2023 6:13 AM CDT) Creatine Kinase (CK), S 2232(H) 39 - 308 U/L 11/27/2023 7:28 AM CDT DT Blood (Blood, Venous) 11/27/2023 6:13 AM CDT 11/27/2023 6:53 AM CDT Serafin Ford M.D. LAB BLOOD ADD-ON Performing Organization Address City/[facility]/ZIP Co de Phone Number [facility] [address] [place], [place] [address] [place] [address] * (ABNORMAL) Calcium, Ionized (11/27/2023 6:13 AM CDT) Pathologist [facility] Calcium, Ionized, S 4.41(L) 4.57 - 5.43 mg/dL 11/27/2023 7:12 AM CDT DT Comment: ----ADDITIONAL INFORMATION---- This test has been modified from the pointer helper's instructions. Its performance characteristics were determined by [facility] in a manner consistent with CLIA requirements. This test has not been cleared or approved by the U.S. Food and Drug Administration. pH for Ionized Calcium 7.46 7.35 - 7.48 11/27/2023 7:12 AM CDT DT Blood (Blood, Venous) 11/27/2023 6:13 AM CDT 11/27/2023 6:53 AM CDT Barbara Pelayo APRN.N.P., D.N.P. LAB BLOOD NON ADD-ON Performing Organization Address City/[facility]/ZIP Co de Phone Number [facility] [address] [place] [address], [address] [address] * (ABNORMAL) CBC without Differential (11/27/2023 6:13 AM CDT) Pathologist [facility] Hemoglobin 10.5(L) 13.2 - 16.6 g/dL 11/27/2023 6:46 AM CDT DTL Hematocrit 31.9(L) 38.3 - 48.6 % 11/27/2023 6:46 AM CDT DTL Erythrocytes 3.52(L) 4.35 - 5.65 x10(12)/L 11/27/2023 6:46 AM CDT DTL MCV 90.6 78.2 - 97.9 fL 11/27/2023 6:46 AM CDT DTL RBC Distrib Width 14.9(H) 11.8 - 14.5 % 11/27/2023 6:46 AM CDT DTL Platelet Count 123(L) 135 - 317 x10(9)/L 11/27/2023 6:46 AM CDT DTL Leukocytes 4.8 3.4 - 9.6 x10(9)/L 11/27/2023 6:46 AM CDT DTL Blood (Blood, Venous) 11/27/2023 6:13 AM CDT 11/27/2023 6:37 AM CDT Serafin Ford M.D. LAB BLOOD ADD-ON [address] [address], [facility] [address] [address] * (ABNORMAL) Basic Metabolic Panel (11/27/2023 6:13 AM CDT) Pathologist [facility] Potassium, S 4.4 3.6 - 5.2 mmol/L 11/27/2023 7:14 AM CDT DTL Sodium, S 139 135 - 145 mmol/L 11/27/2023 7:14 AM CDT DTL Chloride, S 105 98 - 107 mmol/L 11/27/2023 7:14 AM CDT DTL Bicarbonate, S 27 22 - 29 mmol/L 11/27/2023 7:14 AM CDT DTL Anion Gap 7 7 - 15 11/27/2023 7:14 AM CDT DTL BUN (Blood Urea Nitrogen), S 19 8 - 24 mg/dL 11/27/2023 7:14 AM CDT DTL Creatinine 1.12 0.74 - 1.35 mg/dL 11/27/2023 7:14 AM CDT DTL Estimated GFR (eGFR) 66 >=60 mL/min/BSA 11/27/2023 7:14 AM CDT DTL Comment: Estimated GFR calculated using the 2020 CKD_EPI creatinine equation. Calcium, Total, S 7.7(L) 8.8 - 10.2 mg/dL 11/27/2023 7:14 AM CDT DTL Glucose, S 107 70 - 140 mg/dL 11/27/2023 7:14 AM CDT DTL Blood (Blood, Venous) 11/27/2023 6:13 AM CDT 11/27/2023 6:53 AM CDT Serafin Ford M.D. LAB BLOOD ADD-ON Performing Organization Address City/[facility]/[place] [address] * (ABNORMAL) Magnesium (11/27/2023 6:13 AM CDT) Magnesium, S 2.4(H) 1.7 - 2.3 mg/dL 11/27/2023 7:14 AM CDT DTL Blood (Blood, Venous) 11/27/2023 6:13 AM CDT 11/27/2023 6:53 AM CDT Serafin Ford [place] [address] * (ABNORMAL) Phosphorus Inorganic (11/27/2023 6:13 AM CDT) Phosphorus (Inorganic), S 1.4(L) 2.5 - 4.5 mg/dL 11/27/2023 7:14 AM CDT DTL Blood (Blood, Venous) 11/27/2023 6:13 AM CDT 11/27/2023 6:53 AM CDT Serafin Ford M.D. LAB BLOOD ADD-ON [facility] [address] [place] [address], [facility] [address] [place] [address] * (ABNORMAL) Basic Metabolic Panel (11/26/2023 5:29 PM CDT) Potassium, P 4.7 3.6 - 5.2 mmol/L 11/26/2023 5:48 PM CDT STMA Sodium, P 138 135 - 145 mmol/L 11/26/2023 5:48 PM CDT STMA Chloride, P 106 98 - 107 mmol/L 11/26/2023 5:48 PM CDT STMA Bicarbonate, P 25 22 - 29 mmol/L 11/26/2023 5:48 PM CDT STMA Anion Gap, P 7 7 - 15 11/26/2023 5:48 PM CDT STMA BUN (Blood Urea Nitrogen), P 20 8 - 24 mg/dL 11/26/2023 5:48 PM CDT STMA Creatinine 0.93 0.74 - 1.35 mg/dL 11/26/2023 5:48 PM CDT STMA Estimated GFR (eGFR) 82 >=60 mL/min/BSA 11/26/2023 5:48 PM CDT STMA Comment: Estimated GFR calculated using the 2020 CKD_EPI creatinine equation. Calcium, Total, P 8.3(L) 8.8 - 10.2 mg/dL 11/26/2023 5:48 PM CDT STMA Glucose, P 128 70 - 140 mg/dL 11/26/2023 5:48 PM CDT STMA Blood (Blood, Venous) 11/26/2023 5:29 PM CDT 11/26/2023 5:32 PM CDT Charlotte Ordaz APRN, C.N.P., D.N.P. LAB BLOOD ADD-ON Performing Organization Address City/[facility] Co de Phone Number [facility] [address] [place] [address] * Patient Status (11/26/2023 5:28 PM CDT) O2 Flow 6.0 L/min 11/26/2023 5:32 PM CDT STMA Device NC 11/26/2023 5:32 PM CDT STMA Spont. breaths/min 18 11/26/2023 5:32 PM CDT STMA Blood 11/26/2023 5:28 PM CDT 11/26/2023 5:32 PM CDT Charlotte Gurjit Tracy Ordaz APRNN.P., D.N.P. LAB BLOOD NON ADD-ON Performing Organization Address City/[facility] Co de Phone Number [facility] [address] [place], [place] [address] [place] [address] 200 [place] [address] * (ABNORMAL) Blood Gas with Coox, Arterial (11/26/2023 5:28 PM CDT) pO2 77(L) 83 - 108 mm Hg [...] APRN, C.N.P., D.N.P. LAB BLOOD NON ADD-ON [facility] [address] [place] [address], [facility] [address] [place] [address] * DX Chest Portable 1 View (11/26/2023 5:20 PM CDT) Anatomical Region Laterality Modality Chest, Thoracic RST LOS, Tho racic ARZ LOS, Thoracic FLA LOS N/A Digital Radiography Impressions 11/26/2023 5:56 PM CDT Since November 25, 2023, increased bibasilar airspace opacities. In conjunction with the similarly decreased lung volumes this is favored to represent worsening atelectasis. Cannot rule out an infectious/inflammatory etiology. Small bilateral pleural effusions. Otherwise no significant changes. The heart borders are obscured. Scattered degenerative changes of the skeleton. Narrative 11/26/2023 5:56 PM CDT EXAM: ??DX CHEST PORTABLE 1 VIEW Procedure Note Roel Guillen M.B.B.S., MLars. - 11/26/2023 EXAM: DX CHEST PORTABLE 1 VIEW IMPRESSION: Since November 25, 2023, increased bibasilar airspace opacities. In conjunctionwith the similarly decreased lung volumes this is favored to representworsening atelectasis. Cannot rule out an infectious/inflammatoryetiology. Small bilateral pleural effusions. Otherwise no significant changes. The heart borders areobscured. Scattered degenerative changes of the skeleton. Charlotte Ordaz APRN C.N.P., D.N.P. IMG DIAGNOSTIC IMAGING PROCEDURES * (ABNORMAL) CBC without Differential (11/26/2023 2:01 PM CDT) Hemoglobin 11.0(L) 13.2 - 16.6 g/dL 11/26/2023 2:08 PM CDT STMA Hematocrit 32.9(L) 38.3 - 48.6 % 11/26/2023 2:08 PM CDT STMA Erythrocytes 3.69(L) 4.35 - 5.65 x10(12)/L 11/26/2023 2:08 PM CDT STMA MCV 89.2 78.2 - 97.9 fL 11/26/2023 2:08 PM CDT STMA RBC Distrib Width 14.8(H) 11.8 - 14.5 % 11/26/2023 2:08 PM CDT STMA Platelet Count 110(L) 135 - 317 x10(9)/L 11/26/2023 2:08 PM CDT STMA Leukocytes 6.5 3.4 - 9.6 x10(9)/L 11/26/2023 2:08 PM CDT STMA Blood (Blood, Venous) 11/26/2023 2:01 PM CDT 11/26/2023 2:05 PM CDT Serafin Ford M.D. LAB BLOOD ADD-ON [facility] [address] [place] [address], [facility] [address] [place] [address] * pH (11/26/2023 11:21 AM CDT) pH 7.45 7.35 - 7.45 pH 11/26/2023 11:27 AM CDT STMA Blood 11/26/2023 11:2 1 AM CDT 11/26/2023 11:26 AM CDT Tracy Pelayo APRNN.P., D.N.P. LAB HISTORICAL ORDERS Performing Organization Address [facility] Co de Phone Number [facility] [address] [place] [address], [facility] 200 [place] [address] * (ABNORMAL) Calcium, Ionized (11/26/2023 11:21 AM CDT) Calcium, Ionized, B 4.56(L) 4.65 - 5.30 mg/dL 11/26/2023 11:29 AM CDT STMA Blood (Blood, Venous) 11/26/2023 11:21 AM CDT 11/26/2023 11:26 AM CDT Tracy Pelayo APRNN.P., D.N.P. LAB BLOOD NON ADD-ON Performing Organization Address City/[facility] Co de Phone Number [facility] [address] [place] [address], [facility] [address] [place] [address] * ECG 12 Lead (11/26/2023 8:06 AM CDT) Ventricular Rate ECG/Min 79 BPM MUSE [place] Interval 134 ms MUSE QRSD Interval 94 ms MUSE QT Interval 380 ms MUSE QTC Interval 435 ms MUSE P [place] 37 degrees MUSE R [place] 15 degrees MUSE T Wave [place] 18 degrees MUSE 11/26/2023 8:06 AM CDT 11/26/2023 8:19 AM CDT Impressions MUSE - 11/26/2023 8:19 AM CDT Normal sinus rhythm Nonspecific ST and T wave abnormality When compared with ECG of 25-Nov-2023 15:16, No significant change was found Reviewed by ANTONIETA Owens Narrative Procedure Note Armin Christine M.D. - 11/26/2023 IMPRESSION: Normal sinus rhythm Nonspecific ST and T wave abnormality When compared with ECG of 25-Nov-2023 15:16, No significant change was found Reviewed by ANTONIETA Owens Barbara Pelayo APRN.N.P., D.N.P. ECG ORDERABLES MUSE NA * Patient Status (11/26/2023 7:49 AM CDT) O2 Flow 2.0 L/min 11/26/2023 7:52 AM CDT STMA Device NC 11/26/2023 7:52 AM CDT STMA Spont. breaths/min 22 11/26/2023 7:52 AM CDT STMA Blood 11/26/2023 7:49 AM CDT 11/26/2023 7:52 AM CDT Shay Lee M.D. LAB BLOOD NON ADD-ON Performing Organization Address City/[facility] Co de Phone Number [facility] [address] [place] [address], [facility] [address] [place] [address] * (ABNORMAL) Blood Gas with Coox, Arterial (11/26/2023 7:49 AM CDT) pO2 94 83 - 108 mm Hg 11/26/2023 7:55 AM CDT STMA pCO2 37 35 - 48 mm Hg 11/26/2023 7:55 AM CDT STMA pH 7.41 7.35 - 7.45 pH 11/26/2023 7:55 AM CDT STMA Base Excess -1 -2 - 3 mmol/L 11/26/2023 7:55 AM CDT STMA HCO3 23 22 - 26 mmol/L 11/26/2023 7:55 AM CDT STMA Hemoglobin, B 9.8(L) 13.2 - 16.6 g/dL 11/26/2023 7:55 AM CDT STMA O2Hb 95.5 94.0 - 98.0 % 11/26/2023 7:55 AM CDT STMA COHb 2.1 <3.0 % 11/26/2023 7:55 AM CDT STMA MetHb <1.0 <1.5 % 11/26/2023 7:55 AM CDT STMA CtO2 13.3(L) 18.0 - 21.0 vol % 11/26/2023 7:55 AM CDT STMA Arterial Sample Site R-Radial 11/26/2023 7:52 AM CDT STMA Comment:Maximilian's test not don e. Blood (Blood, Arterial) 11/26/2023 7:49 AM CDT 11/26/2023 7:52 AM CDT Shay Lee M.D. LAB BLOOD NON ADD-ON Performing Organization Address City/[facility]/ZIP Co de Phone Number [facility] [address] STMA [facility] 200 [place] [address] * (ABNORMAL) Magnesium (11/26/2023 7:48 AM CDT) Pathologist [facility] Magnesium, S 1.6(L) 1.7 - 2.3 mg/dL 11/26/2023 11:13 AM CDT DTL Blood (Blood, Venous) 11/26/2023 7:48 AM CDT 11/26/2023 8:20 AM CDT Shay Lee M.D. LAB BLOOD ADD-ON [facility] [address] [place] [address] * (ABNORMAL) CK (Creatine Kinase) (11/26/2023 7:48 AM CDT) Creatine Kinase (CK), S 1733(H) 39 - 308 U/L 11/26/2023 11:13 AM CDT DTL Blood (Blood, Venous) 11/26/2023 7:48 AM CDT 11/26/2023 8:20 AM CDT Hilda Russ Tere MONTERROSO C.N.P., M.S.NTarik HERNANDEZ BLOOD ADD-ON [facility] [address] [place] [address], [facility] DTL [facility] [address] [place] [address] * (ABNORMAL) Basic Metabolic Panel (11/26/2023 7:48 AM CDT) Potassium, S 3.2(L) 3.6 - 5.2 mmol/L 11/26/2023 11:13 AM CDT DTL Sodium, S 142 135 - 145 mmol/L 11/26/2023 11:13 AM CDT DTL Chloride, S 115(H) 98 - 107 mmol/L 11/26/2023 11:13 AM CDT DTL Bicarbonate, S 19(L) 22 - 29 mmol/L 11/26/2023 11:13 AM CDT DTL Anion Gap 8 7 - 15 11/26/2023 11:13 AM CDT DTL BUN (Blood Urea Nitrogen), S 17 8 - 24 mg/dL 11/26/2023 11:13 AM CDT DTL Creatinine 0.79 0.74 - 1.35 mg/dL 11/26/2023 11:13 AM CDT DTL Estimated GFR (eGFR) 89 >=60 mL/min/BSA 11/26/2023 11:13 AM CDT DTL Comment: Estimated GFR calculated using the 2020 CKD_EPI creatinine equation. Calcium, Total, S 5.9(CL) 8.8 - 10.2 mg/dL 11/26/2023 11:13 AM CDT DTL Glucose, S 114 70 - 140 mg/dL 11/26/2023 11:13 AM CDT DTL Blood (Blood, Venous) 11/26/2023 7:48 AM CDT 11/26/2023 8:20 AM CDT Hilda F Tere MONTERROSO C.N.P., M.S.NTarik HERNANDEZ BLOOD ADD-ON [facility] [address] [place] [address], [facility] DTL [facility] [address] [place] [address] * (ABNORMAL) CBC without Differential (11/26/2023 7:48 AM CDT) Hemoglobin 8.6(L) 13.2 - 16.6 g/dL 11/26/2023 8:19 AM CDT DTL Hematocrit 25.8(L) 38.3 - 48.6 % 11/26/2023 8:19 AM CDT DTL Erythrocytes 2.88(L) 4.35 - 5.65 x10(12)/L 11/26/2023 8:19 AM CDT DTL MCV 89.6 78.2 - 97.9 fL 11/26/2023 8:19 AM CDT DTL RBC Distrib Width 15.0(H) 11.8 - 14.5 % 11/26/2023 8:19 AM CDT DTL Platelet Count 92(L) 135 - 317 x10(9)/L 11/26/2023 8:19 AM CDT DTL Leukocytes 5.7 3.4 - 9.6 x10(9)/L 11/26/2023 8:19 AM CDT DTL Blood (Blood, Venous) 11/26/2023 7:48 AM CDT 11/26/2023 8:11 AM CDT Hilda F Tere MONTERROSO C.N.P., M.S.NTarik HERNANDEZ BLOOD ADD-ON [facility] [address] [place] [address], [facility] DTL [facility] [address] [place] [address] * Thromboelastograph, Kaolin, Blood (11/26/2023 7:45 AM CDT) R, Kaolin, TEG 6.5 4.0 - 9.0 [...] CDT 11/26/2023 7:50 AM CDT Charlotte Ordaz APRN C.N.P., D.N.P. [place] [address], [place] [address] * Transfuse Fresh Frozen Plasma :Bleeding with altered coagulation; 180 mL/hr (11/26/2023 7:09 AM CDT) Carlyn Rivas M.B.B.S. BLOOD TRANSFUSION O RDERABLES * Transfuse Fresh Frozen Plasma :Bleeding with altered coagulation; 180 mL/hr, 2 Units (11/26/2023 7:09 AM CDT) Carlyn Perez.B.B.S. BLOOD TRANSFUSION O RDERABLES * CT Abdomen Pelvis with IV Contrast (11/26/2023 6:14 AM CDT) Anatomical Region Laterality Modality Abdomen, Pelvis, Abdominal [...] blood products inthe peritoneum and retroperitoneum. Shay HUBER CT PROCEDURES * CT Head without IV Contrast (11/26/2023 6:14 AM CDT) Anatomical Region Laterality Modality Head, Neuroradiology RST LOS , Neuroradiology ARZ [facility], Neuroradiology FLA [facility] N/A Computed Tomography, Compute d Tomography 11/26/2023 6:06 AM CDT Impressions 11/26/2023 10:03 AM CDT 1. ??Possible new punctate focus of intraparenchymal hemorrhage in the superior left frontal lobe. No other new intracranial hemorrhage. 2. ??Slightly decreased intraventricular hemorrhage in the left lateral ventricle. Narrative 11/26/2023 10:03 AM CDT EXAM: CT HEAD WITHOUT IV CONTRAST COMPARISON: CT head 11/24/2023 FINDINGS: Possible new punctate focus of intraparenchymal hemorrhage in the superior left frontal lobe (series 3, image 27). Unchanged small focus of intraparenchymal hemorrhage in the superior left frontal lobe. Slightly decreased layering blood products in the occipital horn of the left lateral ventricle. Minimal low density extradural fluid overlies the left frontal lobe when compared to 11/23/2023, most compatible with a minimal subdural hygroma; this has not changed substantially since 11/24/2023. No significant mass effect. No midline shift. Stable ventricular caliber. Decreased soft tissue swelling over the left frontal scalp. Procedure Note Parmjit Finn M.D. - 11/26/2023 EXAM: CT HEAD WITHOUT IV CONTRAST COMPARISON: CT head 11/24/2023 FINDINGS: Possible new punctate focus of intraparenchymal hemorrhage inthe superior left frontal lobe (series 3, image 27). Unchanged small focusof intraparenchymal hemorrhage in the superior left frontal lobe. Slightlydecreased layering blood products in the occipital horn of the left lateral ventricle. 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 No significant mass effect. No midline shift. Stable ventricularcaliber. Decreased soft tissue swelling over the left frontal scalp. IMPRESSION: 1. Possible new punctate focus of intraparenchymal hemorrhage in thesuperior left frontal lobe. No other new intracranial hemorrhage. 2. Slightly decreased intraventricular hemorrhage in the left lateralventricle. Tracy Yancey APRNNKerrie, M.S.N. IM G CT PROCEDURES * Transfuse Fresh Frozen Plasma :Bleeding with altered coagulation; 180 mL/hr (11/26/2023 3:46 AM CDT) Carlyn Reilly Rob M.B.B.S. BLOOD TRANSFUSION O RDERABLES * Transfuse Platelets :Other (Specify):; MTP; 180 mL/hr; No Special Requirements (11/26/2023 2:01 AM CDT) Carlyn Reilly Rob M.B.B.S. BLOOD TRANSFUSION O RDERABLES * Transfuse Platelets :Other (Specify):; MTP; 180 mL/hr; No Special Requirements, 2 Units (42:01 AM CDT) Carlyn Reilly Rob M.B.B.S. BLOOD TRANSFUSION O RDERABLES * Transfuse Platelets :Other (Specify):; MTP; 180 mL/hr; No Special Requirements (11/26/2023 12:26 AMCDT) Carlyn Reilly Rob M.B.B.S. BLOOD TRANSFUSION O RDERABLES * (ABNORMAL) CBC without Differential (11/25/2023 11:29 PM CDT) Hemoglobin 11.6(L) 13.2 - 16.6 g/dL 11/25/2023 11:37 PM CDT STMA Hematocrit 33.8(L) 38.3 - 48.6 % 11/25/2023 11:37 PM CDT STMA Erythrocytes 3.78(L) 4.35 - 5.65 x10(12)/L 11/25/2023 11:37 PM CDT STMA MCV 89.4 78.2 - 97.9 fL 11/25/2023 11:37 PM CDT STMA RBC Distrib Width 14.7(H) 11.8 - 14.5 % 11/25/2023 11:37 PM CDT STMA Platelet Count 51(L) 135 - 317 x10(9)/L 11/26/2023 1:03 AM CDT [facility] Comment:Results confirmed by smear, no clumping or interference seen. Leukocytes 8.6 3.4 - 9.6 x10(9)/L 11/26/2023 1:03 AM CDT STMA Blood (Blood, Venous) 11/25/2023 11:29 PM CDT 11/25/2023 11:33 PM CDT Shay Lee M.D. LAB BLOOD ADD-ON [facility] [address] [place] [address], [facility] [address] [place] [address] [facility] [address] [place] [address] * Transfuse Emergency Released Red Blood Cells (Uncrossmatched) (11/25/2023 10:13 PM CDT) Shay Lee M.D. BLOOD TRANSFUSION OR DERABLES * Transfuse Emergency Released Red Blood Cells (Uncrossmatched) : 4 Units (11/25/2023 10:13 PM CDT) Shay Lee M.D. BLOOD TRANSFUSION OR DERABLES * Transfuse Emergency Released Red Blood Cells (Uncrossmatched) (11/25/2023 9:58 PM CDT) Shay Lee M.D. BLOOD TRANSFUSION OR DERABLES * Patient Status (11/25/2023 9:58 PM CDT) O2 Flow 4.0 L/min 11/25/2023 10:01 PM CDT STMA Device NC 11/25/2023 10:01 PM CDT STMA Spont. breaths/min 15 11/25/2023 10:01 PM CDT STMA Blood 11/25/2023 9:58 PM CDT 11/25/2023 10:01 PM CDT Shay Lee M.D. LAB BLOOD NON ADD-ON [facility] [address] [place] [address], [facility] [address] [place] [address] * (ABNORMAL) Blood Gas with Coox, Arterial (11/25/2023 9:58 PM CDT) pO2 100 83 - 108 mm Hg 11/25/2023 10:03 PM CDT STMA pCO2 37 35 - 48 mm Hg 11/25/2023 10:03 PM CDT STMA pH 7.39 7.35 - 7.45 pH 11/25/2023 10:03 PM CDT STMA Base Excess -3(L) -2 - 3 mmol/L 11/25/2023 10:03 PM CDT STMA HCO3 22 22 - 26 mmol/L 11/25/2023 10:03 PM CDT STMA Hemoglobin, B 10.6(L) 13.2 - 16.6 g/dL 11/25/2023 10:03 PM CDT STMA O2Hb 97.2 94.0 - 98.0 % 11/25/2023 10:03 PM CDT STMA COHb 2.0 <3.0 % 11/25/2023 10:03 PM CDT STMA MetHb <1.0 <1.5 % 11/25/2023 10:03 PM CDT STMA CtO2 14.7(L) 18.0 - 21.0 vol % 11/25/2023 10:03 PM CDT STMA Arterial Sample Site Art Line 11/25/2023 10:01 PM CDT [facility] Comment:Maximilian's test not don e. Blood (Blood, Arterial) 11/25/2023 9:58 PM CDT 11/25/2023 10:01 PM CDT Shay Lee M.D. LAB BLOOD NON ADD-ON Performing Organization Address City/[facility]/ZIP Co de Phone Number [facility] [address] [place] [address], [facility] [address] [place] [address] * Transfuse Emergency Released Red Blood Cells (Uncrossmatched) (11/25/2023 9:51 PM CDT) Shay Lee M.D. BLOOD TRANSFUSION OR DERABLES * Transfuse Emergency Released Red Blood Cells (Uncrossmatched) (11/25/2023 9:44 PM CDT) Shay Lee M.D. BLOOD TRANSFUSION OR DERABLES * Lactate (11/25/2023 9:05 PM CDT) Lactate, P 1.6 0.5 - 2.2 mmol/L 11/25/2023 9:23 PM CDT [facility] Blood (Blood, Venous) 11/25/2023 9:05 PM CDT 11/25/2023 9:11 PM CDT Shay Lee M.D. LAB BLOOD NON ADD-ON Performing Organization Address City/[facility]/ZIP Co de Phone Number [facility] [address] [place] [address], [facility] [address] [place] [address] * (ABNORMAL) Basic Metabolic Panel (11/25/2023 9:05 PM CDT) Potassium, P 4.2 3.6 - 5.2 mmol/L 11/25/2023 9:26 PM CDT STMA Sodium, P 140 135 - 145 mmol/L 11/25/2023 9:26 PM CDT STMA Chloride, P 107 98 - 107 mmol/L 11/25/2023 9:26 PM CDT STMA Bicarbonate, P 24 22 - 29 mmol/L 11/25/2023 9:26 PM CDT STMA Anion Gap, P 9 7 - 15 11/25/2023 9:26 PM CDT STMA BUN (Blood Urea Nitrogen), P 24 8 - 24 mg/dL 11/25/2023 9:26 PM CDT STMA Creatinine 0.96 0.74 - 1.35 mg/dL 11/25/2023 9:26 PM CDT STMA Estimated GFR (eGFR) 79 >=60 mL/min/BSA 11/25/2023 9:26 PM CDT STMA Comment: Estimated GFR calculated using the 2020 CKD_EPI creatinine equation. Calcium, Total, P 7.3(L) 8.8 - 10.2 mg/dL 11/25/2023 9:26 PM CDT STMA Glucose, P 175(H) 70 - 140 mg/dL 11/25/2023 9:26 PM CDT STMA Blood (Blood, Venous) 11/25/2023 9:05 PM CDT 11/25/2023 9:11 PM CDT Shay Lee M.D. LAB BLOOD ADD-ON [facility] [address] [place] [address], [facility] [address] [place] [address] * (ABNORMAL) CBC without Differential (11/25/2023 9:05 PM CDT) Hemoglobin 7.7(L) 13.2 - 16.6 g/dL 11/25/2023 9:14 PM CDT STMA Hematocrit 23.2(L) 38.3 - 48.6 % 11/25/2023 9:14 PM CDT STMA Erythrocytes 2.59(L) 4.35 - 5.65 x10(12)/L 11/25/2023 9:14 PM CDT STMA MCV 89.6 78.2 - 97.9 fL 11/25/2023 9:14 PM CDT STMA RBC Distrib Width 14.7(H) 11.8 - 14.5 % 11/25/2023 9:14 PM CDT STMA Platelet Count 55(L) 135 - 317 x10(9)/L 11/25/2023 9:14 PM CDT STMA Leukocytes 8.4 3.4 - 9.6 x10(9)/L 11/25/2023 9:14 PM CDT STMA Blood (Blood, Venous) 11/25/2023 9:05 PM CDT 11/25/2023 9:11 PM CDT Shay Lee M.D. LAB BLOOD ADD-ON Performing Organization Address City/[facility]/ZIP Co de Phone Number [facility] [address] [place] [address], [facility] STMA [facility] [address] [place] [address] * (ABNORMAL) Thromboelastograph, Kaolin, Blood (11/25/2023 9:04 PM CDT) R, Kaolin, TEG 6.2 4.0 - 9.0 min 11/25/2023 10:45 PM CDT STMA K, Kaolin, TEG 2.8(H) 1.0 - 1.8 min 11/25/2023 10:45 PM CDT STMA Angle, Kaolin, TEG 51.8(L) 64.0 - 78.1 degrees 11/25/2023 10:45 PM CDT STMA MA, Kaolin, TEG 55.2(L) 57.1 - 72.6 mm 11/25/2023 10:45 PM CDT STMA Ly30, Kaolin, TEG 0.4 0.0 - 4.8 % 11/25/2023 10:45 PM CDT STMA Blood (Blood, Venous) 11/25/2023 9:04 PM CDT 11/25/2023 9:08 PM CDT Shay Lee M.D. LAB BLOOD NON ADD-ON Performing Organization Address City/[facility]/ZIP Co de Phone Number [facility] [address] [place] [address] * (ABNORMAL) Troponin T, 2 Hour with 6 Hour Reflex, 5th Gen (11/25/2023 5:38 PM CDT) Pathologist [facility] Troponin T, 2 hr, 5th gen 32(H) <=15 ng/L 11/25/2023 6:28 PM CDT STMA 2H Delta 0 ng/L 11/25/2023 6:28 PM CDT [facility] Comment:6 hour collection no t indicated. 2H Delta Interp Not Changing 11/25/2023 6:28 PM CDT [facility] Blood 11/25/2023 5:38 PM CDT 11/25/2023 6:00 PM CDT Charlotte Ordaz APRN C.N.P., D.N.P. LAB BLOOD TROPONIN [facility] [address] [place] [address] * (ABNORMAL) pH (11/25/2023 3:32 PM CDT) [facility] pH 7.32(L) 7.35 - 7.45 pH 11/25/2023 3:41 PM CDT [facility] Blood 11/25/2023 3:32 PM CDT 11/25/2023 3:37 PM CDT Serafin Ford M.D. LAB HISTORICAL ORDER S [facility] 200 [place] [address] * (ABNORMAL) Calcium, Ionized (11/25/2023 3:32 PM CDT) [facility] Calcium, Ionized, B 4.60(L) 4.65 - 5.30 mg/dL 11/25/2023 3:41 PM CDT STMA Blood (Blood, Venous) 11/25/2023 3:32 PM CDT 11/25/2023 3:37 PM CDT Serafin Ford M.D. LAB BLOOD NON ADD-ON [facility] [address] [place] [address], [facility] STMA [facility] [address] [place] [address] * Phosphorus Inorganic (11/25/2023 3:31 PM CDT) Phosphorus (Inorganic), S 3.8 2.5 - 4.5 mg/dL 11/25/2023 4:29 PM CDT DTL Blood (Blood, Venous) 11/25/2023 3:31 PM CDT 11/25/2023 4:12 PM CDT Serafin Ford M.D. LAB BLOOD ADD-ON [facility] [address] [place] [address], [facility] [address] [place] [address] * Magnesium (11/25/2023 3:31 PM CDT) Magnesium, S 2.1 1.7 - 2.3 mg/dL 11/25/2023 4:29 PM CDT DTL Blood (Blood, Venous) 11/25/2023 3:31 PM CDT 11/25/2023 4:12 PM CDT Serafin Ford M.D. LAB BLOOD ADD-ON [facility] [address] [place] [address], [facility] [address] [place] [address] * (ABNORMAL) Troponin T, Baseline with 2 Hour/6 Hour Reflex Biomarker Panel (11/25/2023 3:30 PM CDT) [facility] Troponin T, Baseline, 5th gen 32(H) <=15 ng/L 11/25/2023 4:05 PM CDT STMA Blood (Blood, Venous) 11/25/2023 3:30 PM CDT 11/25/2023 3:37 PM CDT Charlotte Ordaz APRN, C.N.P., D.N.P. LAB BLOOD TROPONIN [facility] [address] [place] [address], [facility] [address] [place] [address] * (ABNORMAL) CBC without Differential (11/25/2023 3:30 PM CDT) [facility] Hemoglobin 9.3(L) 13.2 - 16.6 g/dL 11/25/2023 3:50 PM CDT STMA Hematocrit 28.7(L) 38.3 - 48.6 % 11/25/2023 3:50 PM CDT STMA Erythrocytes 3.14(L) 4.35 - 5.65 x10(12)/L 11/25/2023 3:50 PM CDT STMA MCV 91.4 78.2 - 97.9 fL 11/25/2023 3:50 PM CDT STMA RBC Distrib Width 14.7(H) 11.8 - 14.5 % 11/25/2023 3:50 PM CDT STMA Platelet Count 55(L) 135 - 317 x10(9)/L 11/25/2023 3:50 PM CDT STMA Leukocytes 7.9 3.4 - 9.6 x10(9)/L 11/25/2023 3:50 PM CDT STMA Blood (Blood, Venous) 11/25/2023 3:30 PM CDT 11/25/2023 3:37 PM CDT Serafin Ford M.D. LAB BLOOD ADD-ON [facility] [address] [place] [address], [facility] STMA [facility] [address] [place] [address] * (ABNORMAL) Basic Metabolic Panel (11/25/2023 3:30 PM CDT) Potassium, P 4.3 3.6 - 5.2 mmol/L 11/25/2023 3:53 PM CDT STMA Sodium, P 141 135 - 145 mmol/L 11/25/2023 3:53 PM CDT STMA Chloride, P 108(H) 98 - 107 mmol/L 11/25/2023 3:53 PM CDT STMA Bicarbonate, P 21(L) 22 - 29 mmol/L 11/25/2023 3:53 PM CDT STMA Anion Gap, P 12 7 - 15 11/25/2023 3:53 PM CDT STMA BUN (Blood Urea Nitrogen), P 22 8 - 24 mg/dL 11/25/2023 3:53 PM CDT STMA Creatinine 0.95 0.74 - 1.35 mg/dL 11/25/2023 3:53 PM CDT STMA Estimated GFR (eGFR) 80 >=60 mL/min/BSA 11/25/2023 3:53 PM CDT STMA Comment: Estimated GFR calculated using the 2020 CKD_EPI creatinine equation. Calcium, Total, P 7.7(L) 8.8 - 10.2 mg/dL 11/25/2023 3:53 PM CDT STMA Glucose, P 189(H) 70 - 140 mg/dL 11/25/2023 3:53 PM CDT STMA Blood (Blood, Venous) 11/25/2023 3:30 PM CDT 11/25/2023 3:37 PM CDT Serafin Ford M.D. LAB BLOOD ADD-ON [facility] [address] [place] [address], [facility] STMA [facility] [address] [place] [address] * ECG 12 Lead (11/25/2023 3:16 PM CDT) Ventricular Rate ECG/Min 80 BPM MUSE [place] Interval 124 ms MUSE QRSD Interval 86 ms MUSE QT Interval 400 ms MUSE QTC Interval 461 ms MUSE P [place] 48 degrees MUSE R [place] 27 degrees MUSE T Wave [place] 31 degrees MUSE 11/25/2023 3:16 PM CDT 11/25/2023 3:39 PM CDT Impressions MUSE - 11/25/2023 3:40 PM CDT Normal sinus rhythm with sinus arrhythmia Nonspecific ST and T wave abnormality When compared with ECG of 25-Nov-2023 05:33, Nonspecific ST abnormality are now present Reviewed by ANTONIETA Calloway Narrative Procedure Note Micky King M.D., Ph.D. - 11/25/2023 IMPRESSION: Normal sinus rhythm with sinus arrhythmia Nonspecific ST and T wave abnormality When compared with ECG of 25-Nov-2023 05:33, Nonspecific ST abnormality are now present Reviewed by ANTONIETA Calloway Charlotte Ordaz APRN C.N.P., D.N.P. ECG ORDERABLES Performing Organization Address [facility] Co de Phone Number MUSE NA * Transfuse Red Blood Cells : , 2 Units (11/25/2023 2:54 PM CDT) Ale Tatum M.D. BLOOD TRANSFUSION OR DERABLES * FL Fluoro Less Than 1 Hour (11/25/2023 2:52 PM CDT) Narrative 152 HOS LOS RST - 11/25/2023 2:54 PM CDT This exam does not require a radiologist review or interpretation. Please refer to the patient's medical record on this date for clinical details. Francisco Staley M.D. IMG FLUOROSCOPY PROCEDURES Performing Organization Address City/[facility]/ZIP Co de Phone Number 152 HOS LOS RST * DX Pelvis 3+ Views (11/25/2023 2:37 PM CDT) Anatomical Region Laterality Modality Pelvis, Musculoskeletal RST [...] (Cell Salvage) : (11/25/2023 1:41 PM CDT) Ale Tatum M.D. BLOOD TRANSFUSION OR DERABLES * Patient Status (11/25/2023 1:31 PM CDT) Temperature 35.7 37.0 deg C 11/25/2023 1:31 PM CDT STMA FIO2 0.50 0.21=AIR 11/25/2023 1:31 PM CDT STMA Blood 11/25/2023 1:31 PM CDT 11/25/2023 1:31 PM CDT Paolo Beth M.D. LAB BLOOD NON ADD -ON [facility] [address] [place] [address], [facility] [address] [place] [address] * (ABNORMAL) Glucose, Whole Blood (11/25/2023 1:31 PM CDT) Glucose 165(H) 70 - 140 mg/dL 11/25/2023 1:33 PM CDT STMA Blood (Blood, Arterial Line) 11/25/2023 1:31 PM CDT 11/25/2023 1:31 PM CDT Ale Tatum M.D. LAB BLOOD ADD-ON [facility] [address] [place], [place] [id number] [place] [address] [address] [place] [address] * Potassium, Blood (11/25/2023 1:31 PM CDT) Potassium, B 3.7 3.6 - 5.2 mmol/L 11/25/2023 1:34 PM CDT STMA Blood (Blood, Arterial Line) 11/25/2023 1:31 PM CDT 11/25/2023 1:31 PM CDT Ale Tatum M.D. LAB BLOOD NON ADD-ON Performing Organization Address City/[facility]/ZIP Co de Phone Number [facility] [address] [place], [place] [phone] [place] [address] [address] [place] [address] * Sodium, B (11/25/2023 1:31 PM CDT) Sodium, B 141 135 - 145 mmol/L 11/25/2023 1:33 PM CDT STMA Blood (Blood, Arterial Line) 11/25/2023 1:31 PM CDT 11/25/2023 1:31 PM CDT Ale Tatum M.D. LAB BLOOD NON ADD-ON [facility] [address] [place], [place] [id number] [place] [address] [address] [place] [address] * (ABNORMAL) Calcium, Ionized (11/25/2023 1:31 PM CDT) Calcium, Ionized, B 4.34(L) 4.65 - 5.30 mg/dL 11/25/2023 1:34 PM CDT STMA Blood (Blood, Arterial Line) 11/25/2023 1:31 PM CDT 11/25/2023 1:31 PM CDT Ale Tatum M.D. LAB BLOOD NON ADD-ON [facility] [address] [place] [address], [facility] STMA [facility] [address] [place] [address] * (ABNORMAL) Blood Gas with Coox, Arterial (11/25/2023 1:31 PM CDT) pO2 162(H) 83 - 108 mm Hg 11/25/2023 1:33 PM CDT STMA pCO2 42 35 - 48 mm Hg 11/25/2023 1:33 PM CDT STMA pH 7.32(L) 7.35 - 7.45 pH 11/25/2023 1:33 PM CDT STMA Base Excess -4(L) -2 - 3 mmol/L 11/25/2023 1:33 PM CDT STMA HCO3 22 22 - 26 mmol/L 11/25/2023 1:33 PM CDT STMA Hemoglobin, B 8.5(L) 13.2 - 16.6 g/dL 11/25/2023 1:33 PM CDT STMA O2Hb 97.5 94.0 - 98.0 % 11/25/2023 1:33 PM CDT STMA COHb 1.7 <3.0 % 11/25/2023 1:33 PM CDT STMA MetHb 1.1 <1.5 % 11/25/2023 1:33 PM CDT STMA CtO2 12.1(L) 18.0 - 21.0 vol % 11/25/2023 1:33 PM CDT STMA Blood (Blood, Arterial Line) 11/25/2023 1:31 PM CDT 11/25/2023 1:31 PM CDT Ale Tatum M.D. LAB BLOOD NON ADD-ON Performing Organization Address City/[facility] Co de Phone Number [facility] [address] [place] [address] * Transfuse autologous RBC (Cell Salvage) : (11/25/2023 12:34 PM CDT) Ale Tatum M.D. BLOOD TRANSFUSION OR DERABLES * (ABNORMAL) Hemoglobin, Whole Blood (11/25/2023 12:13 PM CDT) Hemoglobin, B 8.1(L) 13.2 - 16.6 g/dL 11/25/2023 12:14 PM CDT STMA Blood (Blood, Arterial Line) 11/25/2023 12:13 PM CDT 11/25/2023 12:13 PM CDT Gogo Chavez APRN, CRNA LAB BLOOD NON A DD-ON Performing Organization Address [facility] Co de Phone Number [facility] [address] [place] [address] * Transfuse Red Blood Cells : (11/25/2023 11:50 AM CDT) Ale Tatum M.D. BLOOD TRANSFUSION OR DERABLES * Lactate, B - Intra-op (11/25/2023 11:09 AM CDT) Lactate, B 1.1 0.5 - 2.2 mmol/L 11/25/2023 11:11 AM CDT STMA Blood (Blood, Venous) 11/25/2023 11:09 AM CDT 11/25/2023 11:09 AM CDT Ale Tatum M.D. LAB BLOOD NON ADD-ON Performing Organization Address City/[facility]/ZIP Co de Phone Number [facility] [address] 200 [place] [address] * (ABNORMAL) Glucose, Whole Blood (11/25/2023 11:09 AM CDT) Glucose 143(H) 70 - 140 mg/dL 11/25/2023 11:11 AM CDT STMA Blood (Blood, Arterial Line) 11/25/2023 11:09 AM CDT 11/25/2023 11:09 AM CDT Ale Tatum M.D. LAB BLOOD ADD-ON [facility] 200 [place], [place] [address] 200 [place] [address] * (ABNORMAL) Potassium, Blood (11/25/2023 11:09 AM CDT) Potassium, B 3.5(L) 3.6 - 5.2 mmol/L 11/25/2023 11:12 AM CDT STMA Blood (Blood, Arterial Line) 11/25/2023 11:09 AM CDT 11/25/2023 11:09 AM CDT Ale Tatum M.D. LAB BLOOD NON ADD-ON Performing Organization Address City/[facility]/ZIP Co de Phone Number [facility] 200 [place], [place] [address] 200 [place] [address] * Sodium, B (11/25/2023 11:09 AM CDT) Sodium, B 139 135 - 145 mmol/L 11/25/2023 11:11 AM CDT STMA Blood (Blood, Arterial Line) 11/25/2023 11:09 AM CDT 11/25/2023 11:09 AM CDT Ale Tatum M.D. LAB BLOOD NON ADD-ON [facility] 200 [place] [address], [facility] 200 [place] [address] * Calcium, Ionized (11/25/2023 11:09 AM CDT) Calcium, Ionized, B 4.84 4.65 - 5.30 mg/dL 11/25/2023 11:12 AM CDT STMA Blood (Blood, Arterial Line) 11/25/2023 11:09 AM CDT 11/25/2023 11:09 AM CDT Ale Tatum M.D. LAB BLOOD NON ADD-ON [facility] [address] [place] [address], [facility] 200 [place] [address] * (ABNORMAL) Blood Gas with Coox, Arterial (11/25/2023 11:09 AM CDT) pO2 178(H) 83 - 108 mm Hg 11/25/2023 11:11 AM CDT STMA pCO2 44 35 - 48 mm Hg 11/25/2023 11:11 AM CDT STMA pH 7.31(L) 7.35 - 7.45 pH 11/25/2023 11:11 AM CDT STMA Base Excess -4(L) -2 - 3 mmol/L 11/25/2023 11:11 AM CDT STMA HCO3 22 22 - 26 mmol/L 11/25/2023 11:11 AM CDT STMA Hemoglobin, B 8.0(L) 13.2 - 16.6 g/dL 11/25/2023 11:11 AM CDT STMA O2Hb 98.6(H) 94.0 - 98.0 % 11/25/2023 11:11 AM CDT STMA COHb 1.3 <3.0 % 11/25/2023 11:11 AM CDT STMA MetHb <1.0 <1.5 % 11/25/2023 11:11 AM CDT STMA CtO2 11.5(L) 18.0 - 21.0 vol % 11/25/2023 11:11 AM CDT STMA Blood (Blood, Arterial Line) 11/25/2023 11:09 AM CDT 11/25/2023 11:09 AM CDT Ale Tatum M.D. LAB BLOOD NON ADD-ON Performing Organization Address City/[facility]/ZIP Co de Phone Number [facility] [address] [place] [address] * Transfuse Red Blood Cells : (11/25/2023 10:18 AM CDT) Ale Tatum M.D. BLOOD TRANSFUSION OR DERABLES * Transfuse Red Blood Cells : , 2 Units (11/25/2023 10:18 AM CDT) Ale Tatum M.D. BLOOD TRANSFUSION OR DERABLES * Transfuse Red Blood Cells : (11/25/2023 9:36 AM CDT) Ale Tatum M.D. BLOOD TRANSFUSION OR DERABLES * Patient Status (11/25/2023 9:22 AM CDT) Temperature 35.8 37.0 deg C 11/25/2023 9:23 AM CDT STMA FIO2 0.70 0.21=AIR 11/25/2023 9:23 AM CDT STMA Blood 11/25/2023 9:22 AM CDT 11/25/2023 9:22 AM CDT Dillon Sanchez M.D. LAB BLOOD NON ADD-ON Performing Organization Address City/[facility]/ZIP Co de Phone Number [facility] 200 [place] [address], [facility] 200 [place] [address] * Glucose, Whole Blood (11/25/2023 9:22 AM CDT) Glucose 112 70 - 140 mg/dL 11/25/2023 9:24 AM CDT STMA Blood (Blood, Arterial Line) 11/25/2023 9:22 AM CDT 11/25/2023 9:22 AM CDT Ale Tatum M.D. LAB BLOOD ADD-ON Performing Organization Address City/[facility]/ZIP Co de Phone Number [facility] [address] [place], [place] [address] 200 [place] [address] * (ABNORMAL) Potassium, Blood (11/25/2023 9:22 AM CDT) Potassium, B 3.4(L) 3.6 - 5.2 mmol/L 11/25/2023 9:25 AM CDT STMA Blood (Blood, Arterial Line) 11/25/2023 9:22 AM CDT 11/25/2023 9:22 AM CDT Ale Tatum M.D. LAB BLOOD NON ADD-ON Performing Organization Address City/[facility]/ZIP Co de Phone Number [facility] [address] [place], [place] [address] [place] [address] 200 [place] [address] * Sodium, B (11/25/2023 9:22 AM CDT) Sodium, B 141 135 - 145 mmol/L 11/25/2023 9:24 AM CDT STMA Blood (Blood, Arterial Line) 11/25/2023 9:22 AM CDT 11/25/2023 9:22 AM CDT Ale Tatum M.D. LAB BLOOD NON ADD-ON [facility] [address] [place], [place] [address] [address] [place] [address] * (ABNORMAL) Calcium, Ionized (11/25/2023 9:22 AM CDT) Calcium, Ionized, B 4.40(L) 4.65 - 5.30 mg/dL 11/25/2023 9:25 AM CDT STMA Blood (Blood, Arterial Line) 11/25/2023 9:22 AM CDT 11/25/2023 9:22 AM CDT Ale Tatum M.D. LAB BLOOD NON ADD-ON [facility] [address] [place] [address], [facility] STMA [facility] [address] [place] [address] * (ABNORMAL) Blood Gas with Coox, Arterial (11/25/2023 9:22 AM CDT) pO2 232(H) 83 - 108 mm Hg 11/25/2023 9:24 AM CDT STMA pCO2 36 35 - 48 mm Hg 11/25/2023 9:24 AM CDT STMA pH 7.42 7.35 - 7.45 pH 11/25/2023 9:24 AM CDT STMA Base Excess -1 -2 - 3 mmol/L 11/25/2023 9:24 AM CDT STMA HCO3 24 22 - 26 mmol/L 11/25/2023 9:24 AM CDT STMA Hemoglobin, B 7.4(L) 13.2 - 16.6 g/dL 11/25/2023 9:24 AM CDT STMA O2Hb 97.5 94.0 - 98.0 % 11/25/2023 9:24 AM CDT STMA COHb 1.8 <3.0 % 11/25/2023 9:24 AM CDT STMA MetHb 1.1 <1.5 % 11/25/2023 9:24 AM CDT STMA CtO2 10.7(L) 18.0 - 21.0 vol % 11/25/2023 9:24 AM CDT STMA Blood (Blood, Arterial Line) 11/25/2023 9:22 AM CDT 11/25/2023 9:22 AM CDT Ale Tatum M.D. LAB BLOOD NON ADD-ON Performing Organization Address City/[facility] Co de Phone Number [facility] [address] [place] [address] * Patient Status (11/25/2023 7:08 AM CDT) Pathologist [facility] O2 Flow 3.0 L/min 11/25/2023 7:11 AM CDT STMA Device NC 11/25/2023 7:11 AM CDT STMA Spont. breaths/min 18 11/25/2023 7:11 AM CDT STMA Blood 11/25/2023 7:08 AM CDT 11/25/2023 7:11 AM CDT Hilda Carranza APRN C.N.P., M.S.N. LA B BLOOD NON ADD-ON Performing Organization Address City/[facility] Co de Phone Number [facility] [address] 200 [place] [address] * (ABNORMAL) Blood Gas with Coox, Venous (11/25/2023 7:08 AM CDT) pO2, Venous, B 36 Not applicable mm [...] 7:08 AM CDT 11/25/2023 7:11 AM CDT Tracy Yancey APRNNKerrie, M.S.N. LA B BLOOD NON ADD-ON Performing Organization Address City/[facility]/ZIP Co de Phone Number [facility] 200 [place] [address], [facility] 200 [place] [address] * (ABNORMAL) CK (Creatine Kinase) (11/25/2023 6:15 AM CDT) Pathologist [facility] Creatine Kinase (CK), S 3100(H) 39 - 308 U/L 11/25/2023 9:15 AM CDT DTL Blood (Blood, Venous) 11/25/2023 6:15 AM CDT 11/25/2023 7:01 AM CDT Tracy Yancey APRNNLeon., M.S.N. LA B BLOOD ADD-ON Performing Organization Address City/[facility]/ZIP Co de Phone Number [facility] [address] [place] [address], [address] [address] * (ABNORMAL) Phosphorus Inorganic (11/25/2023 6:15 AM CDT) Pathologist [facility] Phosphorus (Inorganic), S 2.2(L) 2.5 - 4.5 mg/dL 11/25/2023 9:15 AM CDT DTL Blood (Blood, Venous) 11/25/2023 6:15 AM CDT 11/25/2023 7:01 AM CDT Hilda Carranza APRN, C.N.P., M.S.NTarik HERNANDEZ BLOOD ADD-ON Performing Organization Address City/[facility] Co de Phone Number [facility] [address] [facility] 200 [place] [address] * Magnesium (11/25/2023 6:15 AM CDT) Magnesium, S 2.2 1.7 - 2.3 mg/dL 11/25/2023 9:15 AM CDT DTL Blood (Blood, Venous) 11/25/2023 6:15 AM CDT 11/25/2023 7:01 AM CDT Hilda Carranza APRN, C.N.P., M.S.NTarik HERNANDEZ BLOOD ADD-ON Performing Organization Address [facility] Co de Phone Number [facility] [address] [facility] 200 [place] [address] * (ABNORMAL) Basic Metabolic Panel (11/25/2023 6:15 AM CDT) Potassium, S 3.9 3.6 - 5.2 mmol/L 11/25/2023 9:15 AM CDT DTL Sodium, S 140 135 - 145 mmol/L 11/25/2023 9:15 AM CDT DTL Chloride, S 108(H) 98 - 107 mmol/L 11/25/2023 9:15 AM CDT DTL Bicarbonate, S 23 22 - 29 mmol/L 11/25/2023 9:15 AM CDT DTL Anion Gap 9 7 - 15 11/25/2023 9:15 AM CDT DTL BUN (Blood Urea Nitrogen), S 23 8 - 24 mg/dL 11/25/2023 9:15 AM CDT DTL Creatinine 0.94 0.74 - 1.35 mg/dL 11/25/2023 9:15 AM CDT DTL Estimated GFR (eGFR) 81 >=60 mL/min/BSA 11/25/2023 9:15 AM CDT DTL Comment: Estimated GFR calculated using the 2020 CKD_EPI creatinine equation. Calcium, Total, S 7.8(L)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 LOS N/A Digital Radiography Impressions 11/23/2023 4:22 PM CDT Redemonstrated 2 column left acetabular comminuted displaced fracture, not significantly changed. Slight femoral head medial subluxation. Bladder catheter. Narrative 11/23/2023 4:22 PM CDT EXAM: ??DX PELVIS 1-2 VIEWS Christopher Cornell M.D. IM DIAGNOSTIC IMAGING PROCEDURES * (ABNORMAL) Basic Metabolic Panel (11/23/2023 2:52 PM CDT) Potassium, P 4.0 3.6 - 5.2 mmol/L 11/23/2023 3:15 PM CDT STMA Sodium, P 140 135 - 145 mmol/L 11/23/2023 3:15 PM CDT STMA Chloride, P 105 98 - 107 mmol/L 11/23/2023 3:15 PM CDT STMA Bicarbonate, P 21(L) 22 - 29 mmol/L 11/23/2023 3:15 PM CDT STMA Anion Gap, P 14 7 - 15 11/23/2023 3:15 PM CDT STMA BUN (Blood Urea Nitrogen), P 31(H) 8 - 24 mg/dL 11/23/2023 3:15 PM CDT STMA Creatinine 1.14 0.74 - 1.35 mg/dL 11/23/2023 3:15 PM CDT STMA Estimated GFR (eGFR) 65 >=60 mL/min/BSA 11/23/2023 3:15 PM CDT STMA Comment: Estimated GFR calculated using the 2020 CKD_EPI creatinine equation. Calcium, Total, P 8.4(L) 8.8 - 10.2 mg/dL 11/23/2023 3:15 PM CDT STMA Glucose, P 124 70 - 140 mg/dL 11/23/2023 3:15 PM CDT STMA Blood (Blood, Venous) 11/23/2023 2:52 PM CDT 11/23/2023 2:58 PM CDT Christopher Cornell M.D. LAB BLOOD ADD- ON Performing Organization Address City/[facility]/ZIP Co de Phone Number [facility] [address] [place], [place] [address] [place] [address] * (ABNORMAL) Troponin T, 2 Hour with 6 Hour Reflex, 5th Gen (11/23/2023 2:52 PM CDT) Pathologist [facility] Troponin T, 2 hr, 5th gen 21(H) <=15 ng/L 11/23/2023 3:28 PM CDT STMA 2H Delta 4 ng/L 11/23/2023 3:28 PM CDT [facility] Comment:6 hour collection pe nding. 2H Delta Interp Indeterminate 11/23/2023 3:28 PM CDT [facility] Comment:Indeterminate delta, additional sample suggested Blood 11/23/2023 2:52 PM CDT 11/23/2023 2:58 PM CDT Bereket Snider M.D. LAB BLOOD TROPONIN Performing Organization Address [facility]/ZIP Co de Phone Number [facility] [address] [place], [place] [address] [place] [address] * ECG 12 Lead (11/23/2023 2:45 PM CDT) Ventricular Rate ECG/Min 87 BPM MUSE NJ Interval 138 ms MUSE QRSD Interval 82 ms MUSE QT Interval 402 ms MUSE QTC Interval 483 ms MUSE P [place] 46 degrees MUSE R [place] 19 degrees MUSE T Wave [place] 37 degrees MUSE 11/23/2023 2:45 PM CDT 11/23/2023 2:47 PM CDT Impressions MUSE - 11/23/2023 2:47 PM CDT Sinus rhythm Premature atrial complexes Nonspecific ST abnormality Prolonged QT No previous ECGs available Reviewed by ANTONIETA Calloway Narrative Procedure Note Micky King M.D., Ph.D. - 11/23/2023 IMPRESSION: Sinus rhythm Premature atrial complexes Nonspecific ST abnormality Prolonged QT No previous ECGs available Reviewed by ANTONIETA Calloway Bereket Snider M.D. ECG ORDERABLES MUSE NA * DX Pelvis 3+ Views (11/23/2023 2:10 PM CDT) Anatomical Region Laterality Modality Pelvis, Musculoskeletal RST LOS, Musculoskeletal ARZ LOS, Muskuloskeletal FLA LOS N/A Digital Radiography Impressions 11/23/2023 2:55 PM CDT Comminuted displaced 2 column. Left acetabular fracture. Significant increase of the medial acetabular wall. Slight medial subluxation of the femoral head. Residual contrast in the bladder. Moderate tricompartmental left knee osteoarthritis. Narrative 11/23/2023 2:55 PM CDT EXAM: ??DX FEMUR LEFT 2 VIEWS, DX PELVIS 3+ VIEWS Procedure Note Sheldon Araya M.D. - 11/23/2023 EXAM: DX FEMUR LEFT 2 VIEWS, DX PELVIS 3+ VIEWS IMPRESSION: Comminuted displaced 2 column. Left acetabular fracture. Significantincrease of the medial acetabular wall. Slight medial subluxation of thefemoral head. Residual contrast in the bladder. Moderate tricompartmentalleft knee osteoarthritis. Bereket Snider M.D. IMG DIAGNOSTIC IMAGI NG PROCEDURES * DX Femur Left 2 Views (11/23/2023 2:10 PM CDT) Anatomical Region Laterality Modality Lower Extremity, Femur, Musc uloskeletal RST LOS, Musculoskeletal ARZ LOS, Muskuloskeletal FLA LOS Left Digit al Radiography Impressions 11/23/2023 2:55 PM CDT Comminuted displaced 2 column. Left acetabular fracture. Significant increase of the medial acetabular wall. Slight medial subluxation of the femoral head. Residual contrast in the bladder. Moderate tricompartmental left knee osteoarthritis. Narrative 11/23/2023 2:55 PM CDT EXAM: ??DX FEMUR LEFT 2 VIEWS, DX PELVIS 3+ VIEWS Procedure Note Sheldon Araya M.D. - 11/23/2023 EXAM: DX FEMUR LEFT 2 VIEWS, DX PELVIS 3+ VIEWS IMPRESSION: Comminuted displaced 2 column. Left acetabular fracture. Significantincrease of the medial acetabular wall. Slight medial subluxation of thefemoral head. Residual contrast in the bladder. Moderate tricompartmentalleft knee osteoarthritis. Bereket Snider M.D. IMG DIAGNOSTIC IMAGI NG PROCEDURES * CT Lumbar Spine by Reconstruction [...] thoracic or lumbar spine. Bereket Snider M.D. Janna CT PROCEDURES * CT Thoracic Spine by [...] spine. Bereket RANDHAWA CT PROCEDURES * CT Abdomen Pelvis with IV Contrast (11/23/2023 1:44 PM CDT) Anatomical Region Laterality Modality Abdomen, Pelvis, Abdominal R ST LOS, Abdominal ARZ LOS, Abdominal FLA LOS N/A Computed Tomograp hy, Computed Tomography 11/23/2023 1:30 PM CDT Impressions 11/23/2023 2:27 PM CDT 1. Complex left pelvic fractures [...] 4. Small incidental pulmonary nodules. Narrative 11/23/2023 2:27 PM CDT EXAM: ??CT ABDOMEN PELVIS WITH IV CONTRAST COMPARISON: None available. FINDINGS: [...] Santosh Bruno M.B.B.S. - 11/23/2023 EXAM: CT ABDOMEN PELVIS WITH IV CONTRAST COMPARISON: None available. FINDINGS: CHEST: Nondisplaced left anterior sixth rib fracture (). No mediastinal hematoma or collections. No pleural effusions orpneumothorax. No pericardial effusion. Patent airways. Small calcifiedmediastinal nodes. Incidental 0.8 cm subpleural nodule in the left lowerlobe (/125) and another rounded perifissural nodule measuring 0.7 [...] chest. 4. Small incidental pulmonary nodules. Bereket RANDHAWA CT PROCEDURES * CT Chest [...] for spine findings. Procedure Note Santosh Bruno M.B.B.STarik - 11/23/2023 EXAM: CT CHEST WITH IV [...] Bereket Snider M.D. IMG CT PROCEDURES * CT Cervical Spine without IV Contrast (11/23/2023 1:44 PM CDT) Anatomical Region Laterality Modality Cervical Spine, Neuroradiolo gy RST LOS, Neuroradiology [facility]Z [facility], Neuroradiology FLA LOS N/A Computed Tomography, [...] spine. Chronicchanges as noted. Bereket Snider M.D. IMG CT PROCEDURES * CT Head without IV Contrast (11/23/2023 1:44 PM CDT) Anatomical Region Laterality Modality Head, Neuroradiology RST LOS , Neuroradiology ARZ LOS, Neuroradiology FLA LOS N/A Computed Tomography, Compute d Tomography 11/23/2023 1:16 PM CDT Impressions 11/23/2023 2:27 PM CDT Large left frontal scalp hematoma. No fracture. Small amount of layering blood products in the occipital horn of the left lateral ventricle. Small cortical hemorrhage versus focal subarachnoid hemorrhage anterior left frontal lobe (series 6, image 184). Normal caliber ventricles. Chronic small vessel ischemic changes. Periapical lucencies about the left maxillary first molar and left mandibular first molar teeth. Incomplete fusion of the C1 posterior arch. Remainder negative. Findings discussed with Bereket Snider M.D. (pager #[phone]) on 11/23/2023 at 1:24 PM. Narrative 11/23/2023 2:27 PM CDT EXAM: CT HEAD WITHOUT IV CONTRAST COMPARISON: None Procedure Note Francisco Barnes M.D. - 11/23/2023 EXAM: CT HEAD WITHOUT IV CONTRAST COMPARISON: None IMPRESSION: Large left frontal scalp hematoma. No fracture. Small amount of layeringblood products in the occipital horn of the left lateral ventricle. Smallcortical hemorrhage versus focal subarachnoid hemorrhage anterior leftfrontal lobe (series 6, image 184). Normal caliber ventricles. Chronic small vessel ischemicchanges. Periapical lucencies about the left maxillary first molar andleft mandibular first molar teeth. Incomplete fusion of the C1 posteriorarch. Remainder negative. Findings discussed with Bereket Snider M.D. (pager #[phone]) on 11/23/2023t 1:24 PM. Bereket Snider M.D. IMG CT PROCEDURES * Lactate for Sepsis with Reflex, POCT (11/23/2023 1:06 PM CDT) Lactate, POCT 1.67 0.50 - 2.20 mmol/L 11/23/2023 1:19 PM CDT PCLX Blood (Blood, Venous) 11/23/2023 1:06 PM CDT 11/23/2023 1:06 PM CDT Bereket Sniedr M.D. LAB POCT ORDERABLES - DEVICE POC [facility] [address] [place] [address], [facility] PCLX [facility] POC [address] [place] [address] * (ABNORMAL) Venous Blood Gas and Electrolytes CG8+, POCT (11/23/2023 1:06 PM CDT) Sample Site, POCT Venstick 11/23/2023 1:19 PM [...] Snider M.D. LAB POCT ORDERABLES - DEVICE Performing Organization Address [facility]/ZIP Co de Phone Number POC RST [facility] [address] [place] [address], [facility] [address] [place] [address] * (ABNORMAL) Troponin T, Baseline with 2 Hour/6 Hour Reflex Biomarker Panel (11/23/2023 1:06 PM CDT) Troponin T, Baseline, 5th gen 17(H) <=15 ng/L 11/23/2023 1:36 PM CDT STMA Blood (Blood, Venous) 11/23/2023 1:06 PM CDT 11/23/2023 1:18 PM CDT Bereket Snider M.D. LAB BLOOD TROPONIN Performing Organization Address City/[facility]/ZIP Co de Phone Number [facility] [address] [place] [address], [facility] STMA [facility] [address] [place] [address] * Type and Screen (with Reflex Antibody ID) (11/23/2023 1:06 PM CDT) ABORh AB Pos Not applicable 11/23/2023 1:46 PM CDT STRM Antibody Screen Negative Negative 11/23/2023 1:59 PM CDT STRM Type & Screen Expiration 11/26/2023 23:59 11/23/2023 1:46 PM CDT STRM Testing Location [place] DEFAULT 11/23/2023 1:19 PM CDT STRM Blood (Blood, Venous) 11/23/2023 1:06 PM CDT 11/23/2023 1:19 PM CDT Bereket Snider M.D. LAB BLOOD BANK TEST ORDERABLES Performing Organization Address [facility]/ZIP Co de Phone Number [facility] [address] [place], [place] [address] STRM [facility] [address] [place] [address] * APTT (Activated Partial Thromboplastin Time) (11/23/2023 1:06 PM CDT) Pathologist [facility] Activated Partial Thrombopl Time, P 30 25 - 37 sec 11/23/2023 2:03 PM CDT STMA Blood (Blood, Venous) 11/23/2023 1:06 PM CDT 11/23/2023 1:18 PM CDT Bereket Snider M.D. LAB BLOOD ADD-ON [facility] [address] [place], [place] [address] STMA [facility] [address] [place] [address] * (ABNORMAL) Prothrombin Time (PT) (11/23/2023 1:06 PM CDT) Prothrombin Time, P 16.8(H) 9.4 - 12.5 sec 11/23/2023 2:00 PM CDT STMA INR 1.5 0.9 - 1.1 11/23/2023 2:00 PM CDT STMA Comment: ----ADDITIONAL INFORMATION---- Standard intensity warfarin therapeutic range: 2.0 to 3.0 ?? High intensity warfarin therapeutic range: 2.5 to 3.5 Blood (Blood, Venous) 11/23/2023 1:06 PM CDT 11/23/2023 1:18 PM CDT Bereket Snider M.D. LAB BLOOD ADD-ON [facility] [address] [place] [address], [facility] [address] [place] [address] * (ABNORMAL) CBC with Differential, Blood (11/23/2023 1:06 PM CDT) Hemoglobin 8.3(L) 13.2 - 16.6 g/dL 11/23/2023 1:20 PM CDT STMA Hematocrit 26.2(L) 38.3 - 48.6 % 11/23/2023 1:20 PM CDT STMA Erythrocytes 2.73(L) 4.35 - 5.65 x10(12)/L 11/23/2023 1:20 PM CDT STMA MCV 96.0 78.2 - 97.9 fL 11/23/2023 1:20 PM CDT STMA RBC Distrib Width 13.7 11.8 - 14.5 % 11/23/2023 1:20 PM CDT STMA Platelet Count 107(L) 135 - 317 x10(9)/L 11/23/2023 1:20 PM CDT STMA Leukocytes 6.7 3.4 - 9.6 x10(9)/L 11/23/2023 1:20 PM CDT STMA Neutrophils 5.69 1.56 - 6.45 x10(9)/L 11/23/2023 1:20 PM CDT DHPM Lymphocytes 0.54(L) 0.95 - 3.07 x10(9)/L 11/23/2023 1:20 PM CDT STMA Monocytes 0.47 0.26 - 0.81 x10(9)/L 11/23/2023 1:20 PM CDT STMA Eosinophils <0.03 0.03 - 0.48 x10(9)/L 11/23/2023 1:20 PM CDT STMA Basophils <0.03 0.01 - 0.08 x10(9)/L 11/23/2023 1:20 PM CDT STMA Blood (Blood, Venous) 11/23/2023 1:06 PM CDT 11/23/2023 1:18 PM CDT Bereket Snider M.D. LAB BLOOD ADD-ON Performing Organization Address City/[facility]/ZIP Co de Phone Number [facility] [address] [place] [address], [facility] STMA [facility] [address] [place] [address] DHPM [facility] [address] [place] [address] * (ABNORMAL) S-TSH (Thyroid-Stimulating Hormone - Sensitive) (11/23/2023 1:05 PM CDT) TSH, Sensitive 6.1(H) 0.3 - 4.2 mIU/L 11/23/2023 2:14 PM CDT DTL Blood (Blood, Venous) 11/23/2023 1:05 PM CDT 11/23/2023 1:40 PM CDT Bereket Snider M.D. LAB BLOOD ADD-ON Performing Organization Address City/[facility]/ZIP Co de Phone Number [facility] [address] [place] [address], [facility] DTL [facility] [address] [place] [address] * Lipase (11/23/2023 1:05 PM CDT) Lipase, S 19 13 - 60 U/L 11/23/2023 2: 14 PM CDT DTL Blood (Blood, Venous) 11/23/2023 1:05 PM CDT 11/23/2023 1:40 PM CDT Bereket Snider M.D. LAB BLOOD ADD-ON Performing Organization Address City/[facility] Co de Phone Number [facility] [address] [place] [address], [facility] [address] [place] [address] * (ABNORMAL) Hepatic Function Panel (11/23/2023 1:05 [...] M.D. LAB BLOOD ADD-ON Performing Organization Address City/[facility]/ZIP Co de Phone Number [facility] [address] [place] [address], [facility] [address] [place] [address] * Ethanol Level, Serum (11/23/2023 1:05 PM CDT) Ethanol, S <10 <10 mg/dL 11/23/2023 2:1 4 PM CDT DTL Blood (Blood, Venous) 11/23/2023 1:05 PM CDT 11/23/2023 1:40 PM CDT Bereket Snider M.D. LAB BLOOD NON ADD-ON [facility] [address] [place] [address], [facility] [address] [place] [address] * (ABNORMAL) Basic Metabolic Panel (11/23/2023 1:05 PM CDT) Potassium, P 2.7(L) 3.6 - 5.2 mmol/L 11/23/2023 1:34 PM CDT STMA Sodium, P 147(H) 135 - 145 mmol/L 11/23/2023 1:34 PM CDT STMA Chloride, P 120(H) 98 - 107 mmol/L 11/23/2023 1:34 PM CDT STMA Bicarbonate, P 16(L) 22 - 29 mmol/L 11/23/2023 1:34 PM CDT STMA Anion Gap, P 11 7 - 15 11/23/2023 1:34 PM CDT STMA BUN (Blood Urea Nitrogen), P 23 8 - 24 mg/dL 11/23/2023 1:34 PM CDT STMA Creatinine 0.79 0.74 - 1.35 mg/dL 11/23/2023 1:34 PM CDT STMA Estimated GFR (eGFR) 89 >=60 mL/min/BSA 11/23/2023 1:34 PM CDT STMA Comment: Estimated GFR calculated using the 2020 CKD_EPI creatinine equation. Calcium, Total, P 5.3(CL) 8.8 - 10.2 mg/dL 11/23/2023 1:49 PM CDT STMA Glucose, P 91 70 - 140 mg/dL 11/23/2023 1:34 PM CDT STMA Blood (Blood, Venous) 11/23/2023 1:05 PM CDT 11/23/2023 1:18 PM CDT Bereket Snider M.D. LAB BLOOD ADD-ON [facility] [address] [place] [address], [facility] [address] [place] [address] * DX Pelvis 1-2 Views (11/23/2023 1:01 PM CDT) Anatomical Region Laterality Modality Pelvis, Musculoskeletal RST LOS, Musculoskeletal ARZ LOS, Muskuloskeletal FLA LOS N/A Digital Radiography Impressions 11/23/2023 1:05 PM CDT Comminuted left acetabular fracture. Narrative 11/23/2023 1:05 PM CDT EXAM: ??DX PELVIS 1-2 VIEWS Procedure Note Sheldon Araya M.D. - 11/23/2023 EXAM: DX PELVIS 1-2 VIEWS IMPRESSION: Comminuted left acetabular fracture. Bereket Snider M.D. IMG DIAGNOSTIC IMAGI NG PROCEDURES * DX Chest Portable 1 View (11/23/2023 1:01 PM CDT) Anatomical Region Laterality Modality Chest, Thoracic RST LOS, Tho racic ARZ LOS, Thoracic FLA LOS N/A Digital Radiography Impressions 11/23/2023 1:04 PM CDT Lung volumes small. No pneumothorax or pleural effusion. Heart size normal. Narrative 11/23/2023 1:04 PM CDT EXAM: ??DX CHEST PORTABLE 1 VIEW Procedure Note Sheldon Araya M.D. - 11/23/2023 EXAM: DX CHEST PORTABLE 1 VIEW IMPRESSION: Lung volumes small. No pneumothorax or pleural effusion. Heart sizenormal. Bereket Snider M.D. IMG DIAGNOSTIC IMAGI NG PROCEDURES * (ABNORMAL) Thromboelastograph, Kaolin, Blood (11/23/2023 12:59 PM CDT) R, Kaolin, TEG 3.5(L) 4.0 - 9.0 min 11/23/2023 2:05 PM CDT STMA K, Kaolin, TEG 1.5 1.0 - 1.8 min 11/23/2023 2:05 PM CDT STMA Angle, Kaolin, TEG 60.3(L) 64.0 - 78.1 degrees 11/23/2023 2:05 PM CDT STMA MA, Kaolin, TEG 66.4 57.1 - 72.6 mm 11/23/2023 2:05 PM CDT STMA Ly30, Kaolin, TEG 0.0 0.0 - 4.8 % 11/23/2023 2:05 PM CDT STMA Blood (Blood, Venous) 11/23/2023 12:59 PM CDT 11/23/2023 1:05 PM CDT Bereket Snider M.D. LAB BLOOD NON ADD-ON [facility] [address] [place] [address], [facility] [address] [place] [address] documented in this encounter Visit Diagnoses Diagnosis Fracture Ilium Closed Initial Left (HCC)- Primary History Of Falling Retroperitoneal Hematoma Fracture Ilium Closed Initial Left (HCC) Fracture Acetabulum Closed Initial Left (HCC) Contusion Buttock Initial Anemia Subarachnoid Hemorrhage With Loss Of Conscious Initial ([facility]) Other Shock (Hemorrhagic Shock) ([facility]) Fracture Pelvis Multiple Closed With Stable Disruption Pelvis Ring Initial (HCC) Dysphagia [R13.10] Decline Cognitive [R41.81] 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) [S06.9X9A] Subarachnoid Hematoma Trauma Without Loss Of Consciousness Subsequent [S06.6X0D] Lack Of Coordination [R27.9] Other Abnormalities Of Gait And Mobility [R26.89] 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) [G30.9, F02.80] Delirium [R41.0] History Of Falling Subarachnoid Hematoma Trauma Without Loss Of Consciousness Subsequent Contusion Scalp Initial Fracture Rib One Open Initial Left Contusion Other Intra Abdominal Organs Initial Anemia Posthemorrhagic Acute (Blood Loss Anemia) Fracture Acetabulum Other Closed Initial Left (HCC) Fracture Pelvis Multiple Closed With Stable Disruption Pelvis Ring Initial (HCC) Encephalopathy Metabolic 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) Decline Cognitive Fracture Acetabulum Closed Initial Left (HCC) documented in this encounter Admitting Diagnoses Diagnosis Fracture Ilium Closed Initial Left (HCC) documented in this encounter Administered Medications Active Administered Medications - up to 3 most recent administrations Medication Order MAR Action Action Date Dose Rate Site acetaminophen tablet 650 mg (TYLENOL) 650 mg, oral, Every 6 hours, First dose on Tue11/23/23 at 1700 Given 12/09/2023 8:47 AM CDT 650 mg Given 12/08/2023 6:17 PM CDT 650 mg Given 12/08/2023 12:04 PM CDT 650 mg yiouxynxtplpy-kveooiig-fvtznektp in Lipoderm 2%-0.5%-2% cream 1 g 1 g, topical, 3 times daily, First dose (after last modification) on Tue11/24/23 at 0915 Given 12/09/2023 8:51 AM CDT 1 g Given 12/08/2023 8:15 PM CDT 1 g Given 12/08/2023 6:17 PM CDT 1 g bisacodyL suppository 10 mg (DULCOLAX) 10 mg, rectal, Daily, First dose on Tue11/24/23 at 0915 Given 11/29/2023 8:55 AM CDT 10 mg Given 11/27/2023 8:11 AM CDT 10 mg Given 11/26/2023 8:06 AM CDT 10 mg enoxaparin injection 30 mg (LOVENOX) 30 mg, subcutaneous, 2 times daily, First dose on Tue12/01/23 at 2100 Given 12/09/2023 8:46 AM CDT 30 mg Le ft Lower Abdomen Given 12/08/2023 8:17 PM CDT 30 mg Ri ght Outer Thigh Given 12/08/2023 8:48 AM CDT 30 mg Le ft Outer Thigh finasteride tablet 5 mg (PROSCAR) 5 mg, oral, Daily, First dose on Tue12/02/23 at 0900, See tube feeding guidelines for tube feeding administration instructions. Given 12/09/2023 8:46 AM CDT 5 mg Given 12/08/2023 8:48 AM CDT 5 mg Given 12/07/2023 8:01 AM CDT 5 mg ipratropium-albuteroL 0.5-2.5 mg/3 mL nebulizer solution 3 mL (DUONEB) 3 mL, nebulization, 4 times daily PRN, wheezing, shortness of breath, Starting on Tue11/23/23 at 1655 lidocaine 5 % 1 patch (LIDODERM) 1 patch, transdermal, Administer over 12 Hours, Daily, First dose on Tue11/24/23 at 0900, May apply up to 3 patches per day. Medication Applied 12/09/2023 8:56 AM CDT 1 patch Left Leg Medication Applied 12/06/2023 7:38 AM CDT 1 patch Left Leg Medication Applied 12/05/2023 8:27 AM CDT 1 patch Left Leg magnesium hydroxide suspension 30 mL (Milk of Magnesia) 30 mL, oral, Daily at bedtime, First dose on Tue12/01/23 at 2100 Given 12/05/2023 10:06 PM CDT 30 mL Given 12/01/2023 9:55 PM CDT 30 mL metoprolol injection 2.5 mg (LOPRESSOR) 2.5 mg, intravenous, Every 2 hour PRN, high heart rate, HR >120, Starting on Tue11/25/23 at 1510 metoprolol tablet 12.5 mg (LOPRESSOR) 12.5 mg, oral, 2 times daily, First dose (after last reorder) on Tue11/28/23 at 0900, Hold if SBP < 90, HR < 60 Given 12/09/2023 8:58 AM CDT 12.5 mg Given 12/08/2023 8:15 PM CDT 12.5 mg Given 12/08/2023 8:46 AM CDT 12.5 mg naloxone injection 0.2 mg (NARCAN) 0.2 mg, intravenous, As needed, respiratory depression, Starting on Tue11/23/23 at 1633, For RASS Score -4 or less, respiratory rate of less than 8 breaths/min. Notify provider/service and rapid response team (if available at institution). polyethylene glycol powder packet 17 g (MIRALAX) 17 g, oral, Daily, First dose on Tue11/25/23 at 1000, Dissolve in 240 mLs (8 ounces) of water prior to giving. Avoid mixing with starch-based thickened liquids. Given 12/07/2023 8:47 AM CDT 17 g Given 12/06/2023 7:37 AM CDT 17 g Given 12/05/2023 8:27 AM CDT 17 g ramelteon tablet 8 mg (ROZEREM) 8 mg, oral, Daily at bedtime, First dose on Tue12/07/23 at 2100 Given 12/08/2023 8:15 PM CDT 8 mg Given 12/07/2023 9:02 PM CDT 8 mg sennosides tablet 17.2 mg (SENOKOT) 17.2 mg, oral, 2 times daily, First dose on Tue11/25/23 at 2100 Given 12/08/2023 8:16 PM CDT 17.2 mg Given 12/08/2023 8:46 AM CDT 17.2 mg Given 12/07/2023 8:01 AM CDT 17.2 mg tamsulosin 24 hr capsule 0.8 mg (FLOMAX) 0.8 mg, oral, Daily, First dose (after last modification) on Tue12/04/23 at 0900, Swallow whole. Do NOT crush, chew or open capsule. Given 12/09/2023 8:46 AM CDT 0 .8 mg Given 12/08/2023 8:46 AM CDT 0.8 mg Given 12/07/2023 8:01 AM CDT 0.8 mg Inactive Administered Medications - up to 3 most recent administrations Medication Order MAR Action Action Date Dose Rate Site gentamicin powder 2.4 g (for bone cement) 2.4 g (2 vial), miscellaneous, Once in surgery, OR use only, Starting on Tue11/25/23 at 0710, For 1 dose, Intra-Op, For bone cement - do not reconstitute. Given 11/25/2023 1:52 PM CDT 1 vial Abdominal Tissue ROPivacaine (PF) 150 mg, EPINEPHrine 100 mcg, ketorolac 15 mg in NaCl 0.9% 60 mL injection (ARTHROPLASTY BLOCK 75-99.9 kg) 60 mL, infiltration, Once in surgery, OR use only, Starting on Tue11/25/23 at 0710, For 1 dose, Intra-Op, *Not for IV use* Given 11/25/2023 1:56 PM CDT 60 mL Abdominal Tissue ROPivacaine (PF) 150 mg, EPINEPHrine 100 mcg, ketorolac 15 mg in NaCl 0.9% 60 mL injection (ARTHROPLASTY BLOCK 75-99.9 kg) 60 mL, infiltration, Once in surgery, OR use only, Starting on Tue11/25/23 at 0710, For 1 dose, Intra-Op, *Not for IV use* Given 11/25/2023 1:56 PM CDT 60 mL Abdominal Tissue vancomycin powder 2 g 2 g (2 vial), miscellaneous, Once in surgery, OR use only, Starting on Tue11/25/23 at 0710, For 1 dose, Intra-Op, Do not reconstitute Given 11/25/2023 1:53 PM CDT 1 g Abdominal Tissue documented in this encounter Active and Recently Administered Medications Times are shown in CDT. Scheduled Medication Order 12/07/2023 12/08/2023 12/09/2023 acetaminophen tablet 650 mg (TYLENOL) 650 mg, oral, Every 6 hours, First dose on Tue11/23/23 at 1700 0449 (Given - Provider: Sonali Castellanos R.N.)1345 (Not Given - Provider: Ivy Rodrigez R.N. - Reason: Patient/family refused)1729 (Given - Provider: Ivy Rodrigez R.N.) 0035 (Not Given - Provider: Elaine Castillo R.N. - Reason: Patient/family refused)0405 (Given - Provider: Beatriz Humphreys RTarikNTarik)1204 (Given - Provider: Ivy Rodrigez R.N.)1817 (Given - Provider: Ivy Rodrigez R.N.)2339 (Not Given - Provider: Ivy Rodrigez R.N. - Reason: Patient/family refused) 0546 (Not Given - Provider: Elaine Castillo R.N. - Reason: Patient/family refused)0847 (Given - Provider: Bereket Singleton R.N.)1305 (Not Given - Provider: Bereket Singleton R.N. - Reason: Other - Comment: last dose given at 0847, next availbe would be 1500)1700 (Due)2300 (Due) ssermbbkxefsw-vwznkwcl-cz docaine in Lipoderm 2%-0.5%-2% cream 1 g 1 g, topical, 3 times daily, First dose (after last modification) on Annika 11/24/23 at 0915 0801 (Given - Provider: Ivy Rodrigez R.N.)1825 (Given - Provider: Ivy Rodrigez R.N.)210 (Given - Provider: Afshin Bocanegra R.N.) 0846 (Given - Provider: Ivy Rodrigez R.N.)181 (Given - Provider: Ivy Rodrigez R.N.)2014 (Given - Provider: Ivy Rodrigez R.N.) 0851 (Given - Provider: Bereket Singleton R.N.)130 (Not Given - Provider: Bereket Singleton R.N. - Reason: Patient/family refused)2099 (Due) bisacodyL suppository 10 mg (DULCOLAX) 10 mg, rectal, Daily, First dose on Annika 11/24/23 at 0915 0810 (Not Given - Provider: Ivy Rodrigez R.N. - Reason: Patient/family refused) 09 (Not Given - Provider: Ivy Rodrigez R.N. - Reason: Patient/family refused) 0848 (Not Given - Provider: Bereket Singletno R.N. - Reason: Other) enoxaparin injection 30 mg (LOVENOX) 30 mg, subcutaneous, 2 times daily, First dose on Annika 12/01/23 at 2100 0801 (Given - Provider: Ivy Rodrigez R.N.)210 (Given - Provider: Asfhin Bocanegra R.N.) 0848 (Given - Provider: Ivy Rodrigez R.N.)2016 (Given - Provider: Ivy Rodrigez R.N.) 0846 (Given - Provider: Bereket Singleton R.N.)2099 (Due) finasteride tablet 5 mg (PROSCAR) 5 mg, oral, Daily, First dose on Tue12/02/23 at 0900, See tube feeding guidelines for tube feeding administration instructions. 0801 (Given - Provider: Ivy Rodrigez R.N.) 0848 (Given - Provider: Ivy Rodrigez R.N.) 0846 (Given - Provider: Bereket Singleton R.N.) lidocaine 5 % 1 patch (LIDODERM) 1 patch, transdermal, Administer over 12 Hours, Daily, First dose on Tue11/24/23 at 0900, May apply up to 3 patches per day. 0810 (Not Given - Provider: Ivy Rodrigez R.N. - Reason: Patient/family refused) 09 (Not Given - Provider: Ivy Rodrigez R.N. - Reason: Patient/family refused) 08 (Medication Applied - Provider: Bereket Singleton R.N.)2055 (Due: Medication Removed - Provider: Bereket Singleton R.N.) magnesium hydroxide suspension 30 mL (Milk of Magnesia) 30 mL, oral, Daily at bedtime, First dose on Tue12/01/23 at 2100 2110 (Not Given - Provider: Afshin Bocanegra R.N. - Reason: Patient/family refused) 2338 (Not Given - Provider: Ivy Rodrigez R.N. - Reason: Patient/family refused) 2099 (Due) metoprolol tablet 12.5 mg (LOPRESSOR) 12.5 mg, oral, 2 times daily, First dose (after last reorder) on Tue11/28/23 at 0900, Hold if SBP < 90, HR < 60 08 (Given - Provider: Ivy Rodrigez R.N.)2101 (Given - Provider: Afshin Bocanegra R.N.) 08 (Given - Provider: Ivy Rodrigez R.N.)2014 (Given - Provider: Ivy Rodrigez R.N.) 0858 (Given - Provider: Bereket Singleton R.N.)2100 (Due) polyethylene glycol powder packet 17 g (MIRALAX) 17 g, oral, Daily, First dose on Tue11/25/23 at 1000, Dissolve in 240 mLs (8 ounces) of water prior to giving. Avoid mixing with starch-based thickened liquids. 0847 (Given - Provider: Ivy Rodrigez R.N.) 0846 (Not Given - Provider: Ivy Rodrigez R.N. - Reason: Patient/family refused) 0857 (Not Given - Provider: Bereket Singleton R.N. - Reason: Other - Comment: large BM 0800) ramelteon tablet 8 mg (ROZEREM) 8 mg, oral, Daily at bedtime, First dose on Tue12/07/23 at 2100 2102 (Given - Provider: Afshin Bocanegra R.N.) 2014 (Given - Provider: Ivy Rodrigez R.N.) 2100 (Due) sennosides tablet 17.2 mg (SENOKOT) 17.2 mg, oral, 2 times daily, First dose on Tue11/25/23 at 2100 0801 (Given - Provider: Ivy Rodrigez R.N.)2109 (Not Given - Provider: Afshin Bocanegra R.N. - Reason: Patient/family refused) 0846 (Given - Provider: Ivy Rodrigez R.N.)2015 (Given - Provider: Ivy Rodrigez R.N.) 0846 (Not Given - Provider: Bereket Singleton R.N. - Reason: Other - Comment: large BM at 0800 today)2099 (Due) tamsulosin 24 hr capsule 0.8 mg (FLOMAX) 0.8 mg, oral, Daily, First dose (after last modification) on Tue12/04/23 at 0900, Swallow whole. Do NOT crush, chew or open capsule. 0801 (Given - Provider: Ivy Rodrigez R.N.) 0846 (Given - Provider: Ivy Rodrigez R.N.) 0846 (Given - Provider: Bereket Singleton R.N.) PRN Medication Order 12/07/2023 12/08/2023 12/09/2023 ipratropium-albuteroL 0.5-2.5 mg/3 mL nebulizer solution 3 mL (DUONEB) 3 mL, nebulization, 4 times daily PRN, wheezing, shortness of breath, Starting on Tue11/23/23 at 1655 metoprolol injection 2.5 mg (LOPRESSOR) 2.5 mg, intravenous, Every 2 hour PRN, high heart rate, HR >120, Starting on Tue11/25/23 at 1510 naloxone injection 0.2 mg (NARCAN) 0.2 mg, intravenous, As needed, respiratory depression, Starting on Tue11/23/23 at 1633, For RASS Score -4 or less, respiratory rate of less than 8 breaths/min. Notify provider/service and rapid response team (if available at institution). documented in this encounter Care Teams Teasel Setter Relationship Specialty Start Date End Date Elsewhere, Pcp PCP - General Internal Medicine 11/23/23 documented as of this encounter
--- OUTSIDE RECORDS SUMMARY | 2023-12-09 15:36 | XMS_ITS | Encounter Summary ---
Author Organization [facility] Address [address] [place] [address] Care Team Providers Care Technology Assistant Name Role Phone Elsewhere, Pcp Primary Care Provider Unavailabl e Encounter Details Date Type Department Care Team (Late st Contact Info) Description 11/23/2023 8:45 PM CDT Ancillary Procedure Department of Nursing Social History Tobacco Use Types Packs/Day Years Used Date Smoking Tobacco: Never Assessed Dental Answer Date Recorded Dental: Regular Dentist Unknown 11/23/19 Sex and Gender Information Value Date Recorded Sex Assigned at Not on file Gender Identity Not on file Sexual Orientation Not on file documented as of this encounter Plan of Treatment Upcoming Encounters Date Type Department Care Team (Late st Contact Info) Description 12/27/2023 1:15 PM CDT Clinical Communication Virtual Review in [place], [place] [address] [place] [address] 12/28/2023 7:45 AM CDT Appointment Department of Radiology, [address] [phone] Sera Avila, Shi-C., M.S. [address] [place] [phone] 12/28/2023 8:15 AM CDT Appointment Department of Radiology, [facility], [address] [phone] Vanessa Curiel APRN, MOTOCROSS RACER, D.N.P., M.S.N. [address] [place] [phone] 12/28/2023 2:00 PM CDT Office Visit Department of Neurologic Surgery in [place], [place] [address] [place] [address] Harmony Lomas APRN, C.N.P., M.S.N. [address] [place] [address] 01/05/2024 9:45 AM CDT Office Visit Department of Orthopedic Surgery in [place], [place] [address] [place] [phone] Rodrigo Leiva M.D. [address] [place] [address] documented as of this encounter Procedures Procedure Name Priority Date/Time Associated Diagnosis Comments NURSING IMAGE EXAM Routine 11/23/2023 8: 41 PM CDT documented in this encounter Results * Hand, Left-Nursing Image Exam (11/23/2023 8:41 PM CDT) 11/23/2023 8:39 PM CDT Narrative [facility]IM[facility] - 11/23/2023 8:41 PM CDT This order has been created and auto-finalized to support the import of images acquired without order. The clinical documentation to support these images can be found on the encounter that produced images. Provider Not In System IMG NON RAD IMAGI NG PROCEDURES [facility] NA documented in this encounter Visit Diagnoses Not on filedocumented in this encounter Care Teams Technology Assistant Relationship Specialty Start Date End Date Elsewhere, Pcp PCP - General Internal Medicine 11/23/23 documented as of this encounter
--- OUTSIDE RECORDS SUMMARY | 2023-12-09 15:36 | XMS_ITS | Encounter Summary ---
Author Organization [facility] Address [address] [place] [address] Care Team Providers Care Student Financial Aid Manager Name Role Phone Elsewhere, Pcp Primary Care Provider Unavailabl e Encounter Details Date Type Department Care Team (Late st Contact Info) Description 11/23/2023 8:40 PM CDT Ancillary Procedure Department [...] PM CDT Clinical Communication Virtual Review in [place], [place] [address] [place] [address] 12/28/2023 7:45 AM CDT Appointment Department of Radiology, [address] [phone] Sera Avila, Shi-C., M.S. [address] [place] [phone] 12/28/2023 8:15 AM CDT Appointment Department of Radiology, [facility], [address] [phone] Vanessa Curiel APRN, SYSTEM SALES CONSULTANT, D.N.P., M.S.N. [address] [place] [phone] 12/28/2023 2:00 PM CDT Office Visit Department of Neurologic Surgery in [place], [place] [address] [place] [address] Harmony Lomas APRN, C.N.P., M.S.N. [address] [place] [address] 01/05/2024 9:45 AM CDT Office Visit Department of Orthopedic Surgery in [place], [place] [address] [place] [address] Rodrigo Leiva M.D. [address] [place] [address] documented as of this encounter Procedures Procedure Name Priority Date/Time Associated Diagnosis Comments NURSING IMAGE EXAM Routine 11/23/2023 8: 40 PM CDT documented in this encounter Results * Head-Nursing Image Exam (11/23/2023 8:40 PM CDT) 11/23/2023 8:38 PM CDT Narrative [facility] - 11/23/2023 8:41 [...] on filedocumented in this encounter Care Teams Student Financial Aid Manager Relationship Specialty Start Date End Date Elsewhere, Pcp PCP - General Internal Medicine 11/23/23 documented as of this encounter
--- OUTSIDE RECORDS SUMMARY | 2023-12-09 15:36 | XMS_ITS | Encounter Summary ---
Author Organization [facility] Address [address] [place] [id number] Care Team Providers Care Ice Cream Dispenser Name Role Phone Elsewhere, Pcp Primary Care Provider Unavailabl e Reason for Visit * Auth/Cert (Routine) Specialty Diagnoses / Procedures Referred By Rahul t Referred To Contact Diagnoses Anemia Contusion Buttock Initial Subarachnoid Hemorrhage With Loss Of Conscious Initial (HCC) Fracture Acetabulum Closed Initial Left (HCC) Fracture Ilium Closed Initial Left (HCC) History Of Falling Other Shock (Hemorrhagic Shock) (HCC) Retroperitoneal Hematoma Procedures EMERGENCY Carol Miller M.D. [address] [place] [address] Referral ID Status Reason Start Date Expiration Date Visits Re quested Visits Authorized [id number] 1 1 Encounter Details Date Type Department Care Team (Late st Contact Info) Description 11/25/2023 7:44 AM CDT Anesthesia Event RST ROMB MAIN OR [address] [place] [phone] Ale Jane M.D. [address] [place] [phone] Anesthesia Record Procedure Summary Procedure Name Responsible Anesthesiologist Anesthesia Start Time Anesthesia Stop Time OPEN REDUCTION INTERNAL FIXATION ACETABULUM. (Left: Pelvis) Ale Jane M.D. 11/25/23 0744 11/25/23 1450 Events Date Time Event Comment 11/25/2023 0744 An Start Machine/Equipme nt Checked Infection Precautions Followed Procedure/Site Verified NPO Status Verified Supine Standard ASA Monitors Applied 0757 An Induction 0801 An Intubation 0813 Turnover to Proceduralist 0838 0854 Proc Start 0924 Anes CS Handoff IDillon M.D., attest that I have reconciled the controlled substances and that I have reviewed all the significant information with the next anesthesia provider assuming care of this patient. 0945 Anes CS Handoff I, Sonali melissa APRN, [employer], attest that I have reconciled the controlled substances and that I have reviewed all the significant information with the next anesthesia provider assuming care of this patient. 1144 Anes CS Handoff I, Dillon Sanchez M.D., attest that I have reconciled the controlled substances and that I have reviewed all the significant information with the next anesthesia provider assuming care of this patient. 1415 Proc Fin 1421 Turnover to ANE Staff 1434 Airway Removal Criteria Met 1434 Extubation/Airway Removed 1434 an stop data 1450 An End I completed my handoff to the receiving staff during which we 1. Identified the patient 2. Identified the responsible provider 3. Reviewed the pertinent medical history 4. Discussed the surgical course 5. Reviewed intra-op anesthesia management and issues during anesthesia 6. Set expectations for post-procedure period 7. Allowed opportunity for questions and acknowledgement of understanding. Meds Name Total fentanyl injection 50 mcg/mL 100 mcg lidocaine 2% (mg) injection 80 mg rocuronium 10 mg/mL injection 140 mg phenylephrine 100 mcg/mL injection 1,700 mcg ePHEDrine PF 5 mg/mL syringe injection 3 5 mg ondansetron 4 mg/2 mL injection 4 mg sugammadex 100 mg/mL injection 100 mg propofol 10 mg/mL injection 130 mg phenylephrine 20 mg/250 mL infusion 11.9 9 mg ceFAZolin injection 2,000 mg (ANCEF) 4 g dexAMETHasone (DECADRON) injection 4 mg/ mL 4 mg HYDROmorphone PF 2 mg/mL injection 1 mg tranexamic acid in NaCl IVPB 1,000 mg (C YKLOKAPRON) 2 g calcium gluconate 100 mg/mL (10%) inject ion 4 g ketamine 10 mg/mL injection 20 mg vasopressin 20 Units/mL injection 6 Unit s magnesium sulfate injection 1 g amiodarone 50 mg/mL injection 50 mg albumin human bottle 5% 1,000 mL Lactated Ringers Free Drip 1,300 mL lactated ringers free drip 2,000 mL * Agents No agents on file. * Blood Name Total RED BLOOD CELLS 960 mL AUTOLOGOUS RBC-CELL SALVAGE 873 mL Lines, Drains, and Airways Type Details Placement Removal Wound 11/25/23; N; Incisio n; Pelvis; Left, Lateral 11/25/23 0000 by Nazanin Ortiz RTarikNTarik Wound 11/25/23; N; Incisio n; Pannus; Medial 11/25/23 0000 by Nazanin Ortiz, R.N. Indwelling Urinary Catheter Placement Date: 11/23/23; Placement Time: 1531; Type: Double-lumen, Latex; Size: 16 Fr.; Balloon Size: 10 mL; Urine Returned: Yes; Removal Date: 11/26/23; Removal Time: 1701; Removal Reason: Per order 11/23/23 1531 by Kaycee Cooper 11/26/23 1701 by Maki Le R.N., [facility] W[facility] 11/23/23; 1600; Face ; Left, Upper; 12/06/23; 1109; Wound healed 11/23/23 1600 by Tigre Jason R.N. 12/06/23 1109 by Daniela Torres R.N., C.W.C.N. Wound 11/23/23; 1600; Part ial thickness; Hand; Left; 12/06/23; 1109; Wound healed 11/23/23 1600 by Tigre Jason R.N. 12/06/23 1109 by Daniela Torres R.N., C.W.C.N. Peripheral IV Placement Date: 11/24/23; Placement Time: 1354; Catheter Size: 18 G; Orientation: Left; Location: Antecubital; Site Prep: Chlorhexidine (Preferred); Technique: Anatomical landmarks; Inserted by: u; Insertion Attempts: 2; Removal Date: 11/26/23; Removal Time: 0200; Removal Reason: Infiltrated 11/24/23 1354 by Yoli Rodrigez RTarikNTarik 11/26/23 0200 by Alejandra Mujica R.N. Closed/Suction Drain 11/25/23; 2; Inferi or, Midline; Abdomen; Accordion; 10 Fr.; No longer in place; patient 11/25/23 0000 by Nazanin Ortiz R.NTarik 11/28/23 2345 by Sonali Castellanos R.N. Closed/Suction Drain 11/25/23; 1; Left, Lateral; Hip; Accordion; 10 Fr.; Criteria for drain removal met; service 11/25/23 0000 by Nazanin Ortiz R.N. 12/05/23 2230 by Sonali Castellanos R.N. ETT Placement Date: 11/25/23; Placement Time: 08 (created via procedure documentation); Mask Ventilation: Oral/Nasal airway needed; Technique: Video laryngoscopy; Type: Standard ETT; Single Lumen Tube Size: 7.5 mm; Cuffed: Yes; Location: Oral; Grade View: Grade 2A; Placement Verification: Bilateral breath sounds, Positive ETCO2, Symmetrical chest wall movement; Removal Date: 11/25/23; Removal Time: 14311/25/23 0801 by Paolo Beth M.D. 11/25/23 143 by Paolo Beth M.D. Arterial Line Placement Date: 11/25/23; Placemnt Time: 811 (created via procedure documentation); Size: 20 G; Orientation: Right; Location: Radial; Site Prep: Chlorhexidine (Preferred); Technique: Ultrasound guidance; Insertion Attempts: 1; Securement: Securement dressing, Securement device; Removal Date: 11/26/23; Removal Time: 1649; Removal Reason: Per order 11/25/23 0812 by Dillon Sanchez M.D. 11/26/23 1650 by Maki Le RJamil, CCRN documented in this encounter Social History Tobacco Use Types Packs/Day Years Used Date Smoking Tobacco: Never Assessed Dental Answer Date Recorded Dental: Regular Dentist Unknown 11/23/19 Sex and Gender Information Value Date Recorded Sex Assigned at Not on file Gender Identity Not on file Sexual Orientation Not on file documented as of this encounter OR Notes * Anesthesia Postprocedure Evaluation - Paolo Beth M.D. - 11/25/2023 2:54 PM CDT Patient: Carlos Alberto Grayson Procedure Summary Date: 11/25/23 Room / Location: RM OR 410 ROMB 01 630 / [facility] in [place], [place] Anesthesia Start: 743 Anesthesia Stop: 1453 Procedure: OPEN REDUCTION INTERNAL FIXATION ACETABULUM. (Left: Pelvis) Diagnosis: Fracture Acetabulum Closed Initial Left (HCC) (Fracture Acetabulum Closed Initial Left (HCC) [S32.402A].) Providers: Naveed Higuera M.D. Responsible Provider: Ale Jane M.D. Anesthesia Type: general ASA Status: 3 Anesthesia Type: general Last vitals Vitals Value Taken Time BP 95/50 11/25/23 1453 Temp Pulse 86 11/25/23 1454 Resp 21 11/25/23 1454 SpO2 79 % 11/25/23 145 Vitals shown include unfiled device data. Please reference Vitals flowsheet for most recent vital signs. Anesthesia Post Evaluation Patient Disposition: monitored unit, expectation for recovery time deferred to receiving unit Cardiovascular status: hemodynamics (HR & BP) acceptable Respiratory status: patent airway with spontaneous effort Temperature: normothermic Oxygen requirements: room air Level of consciousness: sedated but awakens easily Pain score: pain adequately controlled and/or at baseline Post Op nausea/vomiting: none Hydration status: euvolemic * Anesthesia Procedure Notes - Dillon Sanchez M.D. - 11/25/2023 8:48 AM CDT Associated Order(s): Airway Airway Date/Time: 11/25/2023 8:01 AM Performed by: Paolo Beth M.D. Authorized by: Ale Jane M.D. Patient location during procedure: OR / Procedure Area PROCEDURE DETAILS: Mask difficulty assessment: oral/nasal airway needed Final airway type: video laryngoscope Laryngeal Manipulation: no Final best view of glottic structures - Cormack/Lehane Score: grade 2A ETT location: oral VL device: glide scope Boston scope blade size: 3 Tube size: 7.5 ETT distance at teeth/gum: 25 Oral tube type: standard ETT Cuffed: yes Airway confirmation: bilateral breath sounds, positive ETCO2 and bilateral chest rise Other previous techniques attempted: none PRE PROCEDURE DETAILS: Pre evaluation for airway management: procedure Urgency: elective Preoxygenation: bag valve mask SEDATION / ANESTHESIA Anesthesia method: anesthesia POST PROCEDURE DETAILS: Procedure outcome: successful Notable Events: no complications * Anesthesia Preprocedure Evaluation - Ale Jane M.D. - 11/25/2023 8:38 AM CDT Preprocedure Anesthesia & H&P Assessment Procedure Summary Anesthesia Start Date/Time: 11/25/23743 Procedure: OPEN REDUCTION INTERNAL FIXATION ACETABULUM. (Left) Diagnosis: Fracture Acetabulum Closed Initial Left (HCC) [S32.402A] Pre-op diagnosis: Fracture Acetabulum Closed Initial Left (HCC) [S32.402A]. Location: [place] [address] / [facility] in [place], [place] Providers: Naveed Higuera M.D. Pertinent components of the patient's history including current problem list, medical history, surgical history, family history, social history, medications and allergies were reviewed. Present illness and pre-op diagnosis were confirmed. The planned surgery / procedure was verified with the patient / legal guardian. The patient's general health condition remains unchanged RELEVANT COMORBID CONDITIONS NEURO (+) Decline Cognitive OBJECTIVE PHYSICAL EXAMINATION Airway (HEENT) Mallampati: III TM Distance: >3 FB Neck ROM: Full Mouth Opening: >3 cm Cardiovascular Rhythm: Regular Rate: Normal Pulmonary Pulmonary Assessment: Non labored General / Constitutional Constitutional Assessment: Normal General State of Health:: calm Neurological Neurologic Assessment: cognitive deficit Dental Dental Assessment: dentition intact ASSESSMENT / PLAN ANESTHESIA PLAN ASA: 3 Anesthesia Plan: general Patient seen and allergies reviewed, anesthesia plan and risks discussed directly with patient /legal guardian or through an rn unit manager. Risks/Benefits/Alternatives of Blood transfusion discussed with patient / legal guardian, includingan opportunity to ask questions and/or decline some or all transfusion therapies. The patient / legal guardian consented to the use of all blood products, as deemed medically necessary Approval to Proceed: approved for anesthesia * Anesthesia Procedure Notes - Dillon Sanchez M.D. - 11/25/2023 8:12 AM CDT Associated Order(s): Invasive Catheter Invasive Catheter Date/Time: 11/25/2023 8:12 AM Performed by: Dillon Sanchez M.D. Authorized by: Ale Jane M.D. Location: OR PROCEDURE DETAILS: Line type: arterial Laterality: right Location: radial Location details: new site Age group: adult Catheter diameter: 20 Ga Technique: ultrasound guided Ultrasound guidance: image not saved Monitored: yes Number of attempts: 1 UNIVERSAL PROTOCOL All [...] utilized as applicable for the procedure.: yes Skin preparation: chlorhexidine SEDATION / ANESTHESIA Anesthesia method: anesthesia POST-PROCEDURE DETAILS: Procedure completed successfully: yes Line secured: secured with sutureless device Chlorhexidine disc around insertion site and under catheter with slight turn: yes Notable Events - arterial: none ATTESTATION STATEMENT A resident or fellow participated in the procedure, and the area development consultant was present for the entire procedure. documented in this encounter Plan of Treatment Upcoming Encounters Date Type Department Care Team (Late st Contact Info) Description 12/27/2023 1:15 PM CDT Clinical Communication Virtual Review in [place], [place] 200 [place] [phone] 12/28/2023 7:45 AM CDT Appointment Department of Radiology, [facility], in [place], [place] [address] [place] [phone] Sera Avila P.A.-C., M.S. [address] [place] [phone] 12/28/2023 8:15 AM CDT Appointment Department of Radiology, [facility], in [place], [place] [address] [place] [address] Vanessa Curiel APRN, MYLA, D.N.P., M.S.N. [address] [place] [phone] 12/28/2023 2:00 PM CDT Office Visit Department of Neurologic Surgery in [place], [place] [address] [place] [address] Harmony Lomas APRN, C.N.P., M.S.N. [address] [place] [phone] 01/05/2024 9:45 AM CDT Office Visit Department of Orthopedic Surgery in [place], [place] [address] [place] [phone] Rodrigo Leiva M.D. [address] [place] [phone] documented as of this encounter Procedures Procedure Name Priority Date/Time Associated Diagnosis Comments LDA ANE ARTERIAL LINE INSERTION Routine 11/25/2023 8:12 AM CDT DE ARTL CATH/CNULA MONITOR PERC Routine 11/25/2023 8:12 AM CDT LDA ANE ENDOTRACHEAL AIRWAY Routine 11/25/2023 8:01 AM CDT documented in this encounter Results * DE ARTL CATH/CNULA MONITOR PERC, LDA ANE ARTERIAL LINE INSERTION (11/25/2023 8:12 AM CDT) Narrative Ale Jane M.D. - 11/25/2023 8:12 AM CDT Dillon Sanchez M.D. ? 11/25/2023 ??8:13 AM Invasive Catheter Date/Time: 11/25/2023 8:12 AM Performed by: Dillon Sanchez M.D. Authorized by: Ale Jane M.D. ?? Location: OR PROCEDURE DETAILS: Line [...] fellow participated in the procedure, and the area development consultant was present for the entire procedure. Ale Jane M.D. PROCEDURE/MINOR SURG ICAL ORDERABLES * LDA ANE ENDOTRACHEAL AIRWAY (11/25/2023 8:01 AM CDT) Narrative Ale Jane M.D. - 11/25/2023 8:01 AM CDT Dillon Sanchez M.D. ? 11/25/2023 ??8:51 AM Airway Date/Time: 11/25/2023 8:01 AM Performed by: Paolo Beth M.D. Authorized by: Ale Jane M.D. ?? Patient location during procedure: OR / Procedure Area PROCEDURE DETAILS: Mask difficulty assessment: oral/nasal airway needed Final airway type: video laryngoscope Laryngeal Manipulation: no ?? Final best view of glottic structures - Cormack/Lehane Score: grade 2A ETT location: oral VL device: glide scope Boston scope blade size: 3 Tube size: 7.5 [...] successful ?? Notable Events: no complications Ale Jane M.D. ANESTHESIA ORDERABLE S documented in this encounter Visit Diagnoses Not on filedocumented in this encounter Administered Medications Inactive Administered Medications - up to 3 most recent administrations Medication Order MAR Action Action Date Dose Rate Site albumin human 5 % injection intravenous, As needed, Starting on Tue11/25/23 at 1130, Anesthesia Intra-op Given 11/25/2023 12:59 PM CDT 250 mL Given 11/25/2023 12:10 PM CDT 250 mL Given 11/25/2023 12:02 PM CDT 250 mL amiodarone injection (CORDARONE) intravenous, As needed, Starting on Tue11/25/23 at 1101, Anesthesia Intra-op Given 11/25/2023 11:01 AM CDT 50 mg calcium gluconate injection intravenous, As needed, Starting on Tue11/25/23 at 1003, Anesthesia Intra-op Given 11/25/2023 1:57 PM CDT 1 g Given 11/25/2023 10:45 AM CDT 1 g Given 11/25/2023 10:20 AM CDT 1 g ceFAZolin injection 2,000 mg (ANCEF) 2,000 mg (rounded from 2,157.5 mg = 25 mg/kg ? 86.3 kg Dosing weight), intravenous, Once, On Tue11/25/23 at 0730, For 1 dose, Intra-Op, Administer within 1 hour prior to surgical incision If needed, reconstitute vial per package insert instructions. See IVAG for administration guidelines., Drug Monitoring Program: Pharmacist to adjust medication dosing based on indication and drug clearance factors., Indications: Prophylaxis, surgical Given 11/25/2023 11:36 AM CD T 2 g Given 11/25/2023 8:43 AM CDT 2 g dexAMETHasone injection (DECADRON) intravenous, As needed, Starting on Tue11/25/23 at 0855, Anesthesia Intra-op Given 11/25/2023 8:47 AM CDT 4 mg ePHEDrine (PF) injection intravenous, As needed, Starting on Tue11/25/23 at 0811, Anesthesia Intra-op Given 11/25/2023 10:27 AM CDT 5 mg Given 11/25/2023 10:16 AM CDT 5 mg Given 11/25/2023 9:10 AM CDT 5 mg fentaNYL injection (SUBLIMAZE) intravenous, As needed, Starting on Tue11/25/23 at 0759, Anesthesia Intra-op Given 11/25/2023 8:26 AM CDT 50 mcg Given 11/25/2023 7:59 AM CDT 50 mcg HYDROmorphone (PF) injection (DILAUDID) intravenous, As needed, Starting on Tue11/25/23 at 0856, Anesthesia Intra-op Given 11/25/2023 12:22 PM CDT 0.2 mg Given 11/25/2023 10:45 AM CDT 0.4 mg Given 11/25/2023 8:56 AM CDT 0.4 mg ketamine injection (KETALAR) intravenous, As needed, Starting on Tue11/25/23 at 1032, Anesthesia Intra-op Given 11/25/2023 10:32 AM CDT 20 mg Lactated Ringer's intravenous, Continuous Infusion: Per Instructions PRN, Starting on Tue11/25/23 at 0755, Anesthesia Intra-op New Bag 11/25/2023 9:30 AM CDT New Bag 11/25/2023 7:55 AM CDT Lactated Ringer's intravenous, Continuous Infusion: Per Instructions PRN, Starting on Tue11/25/23 at 0750, Anesthesia Intra-op New Bag 11/25/2023 12:15 PM CDT New Bag 11/25/2023 7:50 AM CDT lidocaine (PF) (cardiac) injection intravenous, As needed, Starting on Tue11/25/23 at 0758, Anesthesia Intra-op Given 11/25/2023 7:58 AM CDT 80 mg magnesium sulfate injection intravenous, As needed, Starting on Tue11/25/23 at 1053, Anesthesia Intra-op Given 11/25/2023 11:01 AM CDT 0.8 g Given 11/25/2023 10:57 AM CDT 0.1 g Given 11/25/2023 10:53 AM CDT 0.1 g ondansetron (PF) injection (ZOFRAN) intravenous, As needed, Starting on Tue11/25/23 at 1405, Anesthesia Intra-op Given 11/25/2023 2:05 PM CDT 4 mg phenylephrine 80 mcg/mL in NaCl 0.9% 250 mL infusion intravenous, Continuous Infusion: Per Instructions PRN, Starting on Tue11/25/23 at 0806, Anesthesia Intra-op Rate/Dose Change 11/25/2023 2:00 PM CDT 0.1 mcg/kg/min 6.495 mL/hr Rate/Dose Change 11/25/2023 1:44 PM CDT 0.2 mcg/kg/min 12. 99 mL/hr Rate/Dose Change 11/25/2023 1:34 PM CDT 0.3 mcg/kg/min 19. 485 mL/hr phenylephrine injection intravenous, As needed, Starting on Tue11/25/23 at 0759, Anesthesia Intra-op Given 11/25/2023 11:11 AM CDT 200 mcg Given 11/25/2023 10:35 AM CDT 200 mcg Given 11/25/2023 10:27 AM CDT 100 mcg propofoL injection (DIPRIVAN) intravenous, As needed, Starting on Tue11/25/23 at 0800, Anesthesia Intra-op Given 11/25/2023 8:26 AM CDT 30 mg Given 11/25/2023 8:00 AM CDT 100 mg rocuronium injection (ZEMURON) intravenous, As needed, Starting on Tue11/25/23 at 0800, Anesthesia Intra-op Given 11/25/2023 12:22 PM CDT 20 mg Given 11/25/2023 10:49 AM CDT 20 mg Given 11/25/2023 8:00 AM CDT 100 mg sugammadex injection (BRIDION) intravenous, As needed, Starting on Tue11/25/23 at 1438, Anesthesia Intra-op Given 11/25/2023 2:38 PM CDT 100 mg tranexamic acid in NaCl IVPB 1,000 mg (CYKLOKAPRON) 1,000 mg (1 g), intravenous, at 300 mL/hr, Administer over 20 Minutes, Once, On Tue11/25/23 at 0730, For 1 dose, Intra-Op, Administer in OR upon induction Given 11/25/2023 2:14 PM CDT 1 g Given 11/25/2023 8:53 AM CDT 1 g Transfuse autologous RBC (Cell Salvage) : Routine New Bag 11/25/2023 12:34 PM CDT Transfuse autologous RBC (Cell Salvage) : Routine, IV Team Comments: OR, Priority: 6 New Bag 11/25/2023 1:40 PM CDT Transfuse Red Blood Cells : Routine, Transfusion Indication: Active bleed and CV instability, Blood Product Administration Rate (mL/hr): 180 mL/hr, Special Requirements? No Special Requirements, Has consent been obtained? Yes - Written consent obtained via [id number], [id number], or [id number], Attending prescriber supervising blood product administration: ALE JANE New Bag 11/25/2023 9:36 AM CDT Transfuse Red Blood Cells : Routine, Transfusion Indication: Active bleed and CV instability, Blood Product Administration Rate (mL/hr): 180 mL/hr, Special Requirements? No Special Requirements, Has consent been obtained? Yes - Written consent obtained via [id number], [email or web address], or [id number], Attending prescriber supervising blood product administration: ALE JANE New Mallorie 11/25/2023 10:17 AM CDT Transfuse Red Blood Cells : Routine, Transfusion Indication: Active bleed and CV instability, Blood Product Administration Rate (mL/hr): 180 mL/hr, Special Requirements? No Special Requirements, Has consent been obtained? Yes - Written consent obtained via [id number], [id number], or [id number], Attending prescriber supervising blood product administration: ALE JANE New Bag 11/25/2023 11:50 AM CDT vasopressin injection (PITRESSIN) intravenous, As needed, Starting on Tue11/25/23 at 1041, Anesthesia Intra-op Given 11/25/2023 12:50 PM CDT 1 Units Given 11/25/2023 12:35 PM CDT 1 Units Given 11/25/2023 11:51 AM CDT 1 Units documented in this encounter Care Teams Ice Cream Dispenser Relationship Specialty Start Date End Date Elsewhere, Pcp PCP - General Internal Medicine 11/23/23 documented as of this encounter
--- OUTSIDE RECORDS SUMMARY | 2023-12-09 15:38 | XMS_ITS | Encounter Summary ---
Author Name Department of Vetera Affairs Organization Department of Vetera [facility] Address [address], [place] [address] Care Team Providers Care Grape Pruner Name Role Phone ROMANA GOLDSTEIN Primary Care Provider Unavailabl e Insurance Providers: All historical and current Section Date Range: From patient's date of to the date document was created. This section includes the names of all active insurance providers for the patient. Insurance Provider Type of Coverage Plan Name Start of Policy Coverage End of Policy Coverage Group Number Member ID Insurance Provider's Telephone Number Policy Davila's Name Patient's Relationship to Policy Davila MEDICARE (WNR) MEDICARE (M) PART A Jul 21, 2007 PART A [id number] [phone] PRATEEK GRAYSON PATIENT Selected Encounter This section includes the information on record at [place] for the Encounter. Date/Time Encounter Type Encounter Description Reason Provider Source Dec 01, 2023 09:30 AM Outpatient Encounter ADMIN PAT ACTIVTIES (VINNIENONCT) OZIEL ESPINOSA Encounter Template Text not used by MI Social History: Smoking Status (Most current) and Tobacco Use (All prior to encounter date) This section includes the most current, and the historical, smoking and tobacco- related health factors from the [place] facility where the Encounter took place. Current Smoking Status This section includes the most current smoking, or tobacco-related health factor, from the [place] facility where the Encounter took place. Date/Time Current Smoking Status Comment Yann ferrer Dec 01, 2017 02:51 PM LIFETIME NON-TOBACCO USER [facility] Tobacco Use History This section includes a history of the smoking, or tobacco-related health factors, that were collected on or before the date of the Encounter. The data comes from the [place] facility where the Encounter took place. Date/Time Smoking Status/Tobacco Use Comment F acility Aug 10, 2016 09:08 AM FORMER TOBACCO USER 7Y OR GREATE R [facility] Aug 10, 2016 09:08 AM LIFETIME NON-TOBACCO USER [facility] Sep 06, 2014 08:19 AM FORMER TOBACCO USER 7Y OR GREATE R [facility] Dec 09, 2011 01:28 PM FORMER TOBACCO USER 7Y OR GREATE R [facility] Encounter Notes: All associated encounter notes This section contains the clinical notes associated to the Encounter. Date/Time Encounter Note(s) Provider Source Dec 02, 2023 11:23 AM ADDENDUM: LOCAL TITLE: Addendum STANDARD TITLE: ADDENDUM DATE OF NOTE: DEC 02, 2023@11:23:17 ENTRY DATE: DEC 02, 2023@11:23:18 AUTHOR: BEBETO CASH COSIGNER: URGENCY: STATUS: COMPLETED Phoned [place]. Spoke with MEGAN Trevizo. DEJAN verified. -[place] is still admitted to [facility] -Current plan is to discharge to [facility] for short term rehab -had the understanding that had authorization for out of network rehab. Was told by [facility] -Accounts Payable Coordinator informed Karoline there is no record of authorization, but would forward to to review. See Nov 29 CCC:Scheduling note for more information. -Unaware of any f/u needs at this time. -Discussed that any f/u recommended after discharge from Short Term rehab would need a prior authorization -[facility] is not an in-network facility ADDITIONAL NEEDS: -Karoline has concerns for veterans mental status. Notes he has been showing signs of mental decline in the last 2 years and is worried he may have alzheimers. -has been trying to get to be evaluated, but he is in denial and declines an evaluation. -SO is worried that should be driving and veterans decision making capabilities. -Accounts Payable Coordinator explained has not seen current provider. It would be best to have an appointment after discharge to discuss memory concerns and evaluations. PCP would not be able to write a letter stating has Alzheimers without an evaluation. PLAN: -SW has been alerted to short term rehab concerns - and/or SO will reach out to [facility] when is discharging from Rehab to discuss f/u needs and scheduling an appt with PCP. -No other current needs from [facility] at this time. -PCP alerted as FYI for f/u and plan Phone call: 14 min /es/ Bebeto Cash RN [facility] Signed: 12/02/2023 11:38 Receipt Acknowledged By: 12/02/2023 11:42 /es/ Romana Goldstein APRN, CNP --- Original Document --- 11/23/23 [facility] PRESENTING CARE COORD PLAN NOTE: Emergency Notification Intake Date Presenting to the Facility: Nov Method of Contact: Notified from [employer] app worklist Notification ID: [id number] [facility] [place] [facility] [place]: Hospital: [facility], Address: City: [place], State: [place] Zip Code: Phone : [facility] Facility Point of Contact: Name: GABRIELLE Chief complaint: D649 - Anemia, unspecified Primary Diagnosis: Disposition Admitted Route of Admission: Date of Admission: Nov Admitting Diagnosis: D649 - Anemia, unspecified Community Care Provider: Confirm Level of Care: Notify - Submit for /es/ CORI DEAN CASINO GAMING WORKER Signed: 12/01/2023 09:35 Receipt Acknowledged By: 12/01/2023 16:43 /es/ Oziel Espinosa MA, PHN, RN-BC gis software developer [employer] 12/01/2023 ADDENDUM STATUS: COMPLETED Hospital Admission Care Coordination Note. Admitted to: [facility] Admission date: 11/23/23 Chief Complaint/Dx: Fracture Ilium Closed Initial Left Level of Care: Critical; 11/27/23 Transferred to Acute Medical Records uploaded by ZAID FREED to [facility] via EPSI. Records also available for viewing in JLV within the Imaging and Community Health Summaries and Documents widgets. Discharge Summary will be uploaded into the [facility] medical record when available. Although appears medically stable for transfer via chart review,neither the patient, nor the patient's pharmaceutical specialty representative have requested transfer to the [facility], nor are there any beds available at the [facility] for the level of care required. /dexter/ Oziel Espinosa MA, PHN, RN-BC gis software developer [employer] Signed: 12/01/2023 17:27 Receipt Acknowledged By: 12/02/2023 11:22 /dexter/ Bebeto Cash RN [facility] for DANA AGUIRRE 11/23/2023 ADDENDUM STATUS: COMPLETED [facility] Scanned Document - Addendum. [facility], 11-23-23 ED Notes & 11-25-23 Operative Note. SCANNED DOCUMENT SIGNATURE NOT REQUIRED Electronically Filed: 12/01/2023 by: Oziel Espinosa MA, PHN, RN-BC gis software developer [employer] BEBETO CASH [facility] Dec 01, 2023 05:14 PM ADDENDUM: LOCAL TITLE: Addendum STANDARD TITLE: ADDENDUM DATE OF NOTE: DEC 01, 2023@17:14:31 ENTRY DATE: DEC 01, 2023@17:14:32 AUTHOR: OZIEL ESPINOSA EXP COSIGNER: URGENCY: STATUS: COMPLETED Hospital Admission Care Coordination Note. Admitted to: [facility] Admission date: 11/23/23 Chief Complaint/Dx: Fracture Ilium Closed Initial Left Level of Care: Critical; 11/27/23 Transferred to Acute Medical Records uploaded by ZAID FREED to [facility] via EPSI. Records also available for viewing in JLV within the Imaging and Community Health Summaries and Documents widgets. Discharge Summary will be uploaded into the [facility] medical record when available. Although appears medically stable for transfer via chart review,neither the patient, nor the patient's pharmaceutical specialty representative have requested transfer to the [facility], nor are there any beds available at the [facility] for the level of care required. /dexter/ Oziel Espinosa MA, PHN, RN-BC gis software developer [employer] Signed: 12/01/2023 17:27 Receipt Acknowledged By: 12/02/2023 11:22 /es/ Bebeto Cash RN [facility] for DANA AGUIRRE --- Original Document --- 11/23/23 [facility] PRESENTING CARE COORD PLAN NOTE: Emergency Notification Intake Date Presenting to the Facility: Nov Method of Contact: Notified from [facility] app worklist Notification ID: [id number] [facility] [place]: [facility] [place] Name: Hospital: [facility], Address: City: [place], State: [place] Zip Code: Phone : [facility] Point of Contact: Name: GABRIELLE Chief complaint: D649 - Anemia, unspecified Primary Diagnosis: Disposition Admitted Route of Admission: Date of Admission: Nov Admitting Diagnosis: D649 - Anemia, unspecified Community Care Provider: Confirm Level of Care: Notify - Submit for /es/ CORI DEAN CASINO GAMING WORKER Signed: 12/01/2023 09:35 Receipt Acknowledged By: 12/01/2023 16:43 /es/ Oziel Espinosa MA, PHN, RN-BC gis software developer [employer] 11/23/2023 ADDENDUM STATUS: COMPLETED [facility] Scanned Document - Addendum. [facility], 11-23-23 ED Notes & 11-25-23 Operative Note. SCANNED DOCUMENT SIGNATURE NOT REQUIRED Electronically Filed: 12/01/2023 by: Oziel Espinosa MA, PHN, RN-BC gis software developer [employer] OZIEL ESPINOSA [facility] Nov 23, 2023 12:45 PM NONVA NOTE: LOCAL TITLE: [facility] PRESENTING CARE COORD PLAN STANDARD TITLE: NONVA NOTE DATE OF NOTE: NOV 23, 2023@12:45 ENTRY DATE: DEC 01, 2023@09:31:19 AUTHOR: CORI DEAN EXP COSIGNER: URGENCY: STATUS: COMPLETED [facility] PRESENTING CARE COORD PLAN NOTE Has ADDENDA Emergency Notification Intake Date Presenting to the Facility: Nov Method of Contact: Notified from ECR worklist Notification ID: [id number] [facility] Referral #: [facility] Hospital Name: Hospital: [facility], Address: City: [place], State: [place] Zip Code: Phone : [facility] Facility Point of Contact: Name: GABRIELLE Chief complaint: D649 - Anemia, unspecified Primary Diagnosis: Disposition Admitted Route of Admission: Date of Admission: Nov Admitting Diagnosis: D649 - Anemia, unspecified Community Care Provider: Confirm Level of Care: Notify - Submit for /dexter/ CORI DEAN CASINO GAMING WORKER Signed: 12/01/2023 09:35 Receipt Acknowledged By: 12/01/2023 16:43 /dexter/ Oziel Espinosa MA, PHN, RN-BC gis software developer [employer] 12/01/2023 ADDENDUM STATUS: COMPLETED Hospital Admission Care Coordination Note. Admitted to: [facility] Admission date: 11/23/23 Chief Complaint/Dx: Fracture Ilium Closed Initial Left Level of Care: Critical; 11/27/23 Transferred to Acute Medical Records uploaded by ZAID FREED to [facility] via EPSI. Records also available for viewing in JLV within the Imaging and Community Health Summaries and Documents widgets. Discharge Summary will be uploaded into the Veterans medical record when available. Although appears medically stable for transfer via chart review,neither the patient, nor the patient's pharmaceutical specialty representative have requested transfer to the [facility], nor are there any beds available at the [facility] for the level of care required. /dexter/ Oziel Espinosa MA, PHN, RN-BC gis software developer [employer] Signed: 12/01/2023 17:27 Receipt Acknowledged By: 12/02/2023 11:22 /dexter/ Bebeto Cash RN [facility] for DANA AGUIRRE 11/23/2023 ADDENDUM STATUS: COMPLETED [facility] Scanned Document - Addendum. [facility], 11-23-23 ED Notes & 11-25-23 Operative Note. SCANNED DOCUMENT SIGNATURE NOT REQUIRED Electronically Filed: 12/01/2023 by: Oziel Espinosa MA, PHN, RN-BC gis software developer [employer] 12/02/2023 ADDENDUM STATUS: COMPLETED Phoned . Spoke with MEGAN Trevizo. DEJAN verified. -Jamaica is still admitted to [facility] -Current plan is to discharge to [facility] for short term rehab -had the understanding that had authorization for out of network rehab. Was told by [facility] -Accounts Payable Coordinator informed Karoline there is no record of authorization, but would forward to to review. See Nov 29 CCC:Scheduling note for more information. -Unaware of any f/u needs at this time. -Discussed that any f/u recommended after discharge from Short Term rehab would need a prior authorization -[facility] is not an in-network facility ADDITIONAL NEEDS: -Karoline has concerns for veterans mental status. Notes he has been showing signs of mental decline in the last 2 years and is worried he may have alzheimers. -has been trying to get to be evaluated, but he is in denial and declines an evaluation. -SO is worried that should be driving and veterans decision making capabilities. -Accounts Payable Coordinator explained has not seen current provider. It would be best to have an appointment after discharge to discuss memory concerns and evaluations. PCP would not be able to write a letter stating has Alzheimers without an evaluation. PLAN: -SW has been alerted to short term rehab concerns -Jamaica and/or SO will reach out to [facility] when is discharging from Rehab to discuss f/u needs and scheduling an appt with PCP. -No other current needs from [facility] at this time. -PCP alerted as FYI for f/u and plan Phone call: 14 min /dexter/ Bebeto Cash RN [facility] Signed: 12/02/2023 11:38 Receipt Acknowledged By: 12/02/2023 11:42 /es/ Romana Goldstein APRN, CNP 12/06/2023 ADDENDUM STATUS: COMPLETED CONTINUED STAY REVIEW Contact Date: 12/06/23 Date of Admission: 11/23/23 Current Length of Stay: 13 days Method of Contact: Other: [facility] Inpatient level of care required: Critical; 11/27/23 Transferred to Acute Trauma Critical Care and General Surgery note dated, 12/05/23: ASSESSMENT / PLAN Diet: Adult Diet Dysphagia; [...] 11/[address] Head [address] was emergently obtained and was stable for DVT chemoprophylaxis was [...] vein - Discussed with Dr. Khan (trauma bridal consultant on 12/04) & due to the [...] not fully understand weight bearing restrictions & is a heavy 2 assist currently - Has had [...] emergent); cell saver: 2 units; FFP: 2 units; Plts: 2 units - Will transfuse for a [...] concerns please page the Trauma Service at Addendum @ [phone]: Spoke to Mrs. Grayson this afternoon about [...] house and she does not believe that he always understands if he should be doing them. [...] with a plan moving forward. She was agreeable to this plan and thanked me for my time. Although appears medically stable for transfer via chart review, neither the patient, nor the patient's pharmaceutical specialty representative have requested transfer to the [facility], nor are there any beds available at the [facility] for the level of care required. /dexter/ Oziel Espinosa MA, PHN, RN-BC gis software developer [employer] Signed: 12/06/2023 09:34 12/09/2023 ADDENDUM STATUS: COMPLETED CONTINUED STAY REVIEW Contact Date: 12/09/23 Date of Admission: 11/23/23 Current Length of Stay: 16 days Method of Contact: Other: [facility] Inpatient level of care required: Critical; 11/27/23 Transferred to Acute Trauma Critical Care and General Surgery note dated, 12/08/23: ASSESSMENT / PLAN Mr. Grayson is hospitalized on [facility] Trauma for evaluation and management of: Fracture Ilium Closed Initial Left (HCC). 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 He had a Herman previously and when he was very delirious he was trying to remove his Herman himself. Now with his improvement, placement of Herman could be reconsidered especially as he refuses [...] confusion related to the presence of a herman. Either way I suspect he will require urology follow up. RECOMMENDATIONS: Risk/benefit discussion regarding trialing of herman again Will need urology follow up for [...] sleep enhancement General delirium prevention/management strategies: Minimize MECHANICAL MANUFACTURING ENGINEER-acting medications. Increase mobility to match ability. Frequent reorientation. Provide moderate level of social and cognitive stimulation. Treat dehydration and constipation. Nonpharmacologic sleep promotion strategies. The above plan of care was discussed with Dr. Coello, HIM bridal consultant. I personally spent a total of 35 minutes providing and coordinating care today. Thank you for the opportunity to care for this patient. We will continue to follow with you. Please page the Geriatrics Consult Service at [phone] with any questions or concerns. Although appears medically stable for transfer via chart review, neither the patient, nor the patient's pharmaceutical specialty representative have requested transfer to the [facility], nor are there any beds available at the [facility] for the level of care required. /dexter/ Oziel Espinosa MA, PHN, RN-BC gis software developer [employer] Signed: 12/09/2023 13:44 CORI DEAN [facility]
--- OUTSIDE RECORDS SUMMARY | 2023-12-09 15:38 | XMS_ITS | Continuity of Care Document ---
Author Name [facility] Organization [facility] Care Team Providers Care Federal Aid Coordinator Name Role Phone [facility] Unavailable Unavailable Problems Combined list of problems from Department of [facility] and [facility] facilities. It does not include entries that were removed or entered in error. Problem Status Onset Date Problem Type Date of Resolution Comments Source Benign prostatic hyperplasia (SNOMED CT [id number]) Active Condition 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 Atypical Chest Pain (ICD-9-CM 786.59) Inactive Condition 09/07/2021 [facility] Elevated blood pressure reading without diagnosis of hypertension Inactive Condition 09/07/2021 [facility] Routine General Medical Examination at a Health Care Facility * Inactive Condition 09/07/2021 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 Medications Combined list of outpatient medications from Department of Defense and [facility] facilities.Medications provided include 1) outpatient medications from the last 15 months, and 2) patient-reported medications. 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 2) Encounters from the Department of Defense facilities going back up to 280 months. Location Location Details Encounter Type Encounter Number Reason For Visit Attending Provider ADM Date DC Date Status Disposition Source [facility] Outpatient Encounter [id number] [facility] [facility] 08/02 [facility] Outpatient Encounter [id number] 08/05 [place] [facility] [place] [facility] Outpatient Encounter [id number] 08/05 [place] [facility] [facility] [place] [facility] Outpatient Encounter [id number] 09/09 [place] [facility] [place] [facility] Outpatient Encounter [id number] 01/07 [place] [facility] [place] [facility] Outpatient Encounter [id number] 03/30 [place] [facility] [place] [facility] Outpatient Encounter [id number] 05/26 [place] [facility] [place] [facility] Outpatient Encounter [id number] 07/19 [place] [facility] [place] [facility] Outpatient Encounter [id number] 09/20 [place] [facility] [place] [facility] Outpatient Encounter [id number] 11/29 [place] [facility] [place] [facility] Outpatient Encounter [id number] PARI ESPINOSA 11/30 [place] [facility] [place] [facility] Outpatient Encounter [id number] 12/01 [place] [facility] [place] [facility] Outpatient Encounter [id number] 12/05 [place] [facility] [place] [facility] Outpatient Encounter [id number] 12/08 [place] [facility] Social History Combined list of available smoking, tobacco, and other social history from Department of Defense and Veterans Affairs facilities. Social History Type Response Date Comment [facility] Tobacco smoking status [facility]TO[facility] NEVER USED 09/07/2021 [facility]) History of tobacco use LIFETIME NON-TOBA APPLIANCE PARTS COUNTER CLERK USER 12/01/2017 [facility] History of tobacco use LIFETIME NON-TOBA APPLIANCE PARTS COUNTER CLERK USER 08/10/2016 [facility] History of tobacco use FORMER TOBACCO US ER 7Y OR GREATER 09/06/2014 [facility] History of tobacco use FORMER TOBACCO US ER 7Y OR GREATER 12/09/2011 [facility]
--- OUTSIDE RECORDS SUMMARY | 2023-12-09 15:38 | XMS_ITS | Encounter Summary ---
Author Name Department of Vetera Affairs Organization Department of Vetera Affairs Address [address] [place] [address] Care Team Providers Care Stone Gang Sawyer Name Role Phone ROMANA GOLDSTEIN Primary Care [...] PART A Jul 21, 2007 PART A [id number] [phone] PRATEEK COHN PATIENT Selected Encounter This section includes the information on record at [place] for the Encounter. Date/Time Encounter Type Encounter Description Reason Pro vider Source Sep 21, 2023 09:04 AM Outpatient Encounter EVENT (HISTORICAL) IHE Encounter Template Text not used by [place] Plan of Treatment: Future Appointments (+ 6 months) and Future Tests (+/- 45 days) The Plan of Treatment section includes future care activities for the patient from all [place] treatmentfacilities. This section includes future appointments and future orders which are active, pending or scheduled. Future Appointments This section includes appointments that were scheduled to occur 6 months from the date of the Encounter, up to a maximum of 20 appointments. The data comes from all [place] treatment facilities. Appointment Date/Time Appointment Type Appointme nt Facility Name Dec 01, 2023 09:30 AM AMB[place]ATORY - NONE [place] [facility] Social History: Smoking Status (Most current) and Tobacco Use (All prior to encounter date) This section includes the most current, and the historical, smoking and tobacco- related health factors from the [place] facility where the Encounter took place. Current Smoking Status This section includes the most current smoking, or tobacco-related health factor, from the [place] facility where the Encounter took place. Date/Time Current Smoking Status Comment Facil ity Dec 01, 2017 02:51 PM LIFETIME NON-TOBACCO USER [facility] Tobacco Use History This section includes a history of the smoking, or tobacco-related health factors, that were collected on or before the date of the Encounter. The data comes from the [place] facility where the Encounter took place. Date/Time Smoking Status/Tobacco Use Comment F acility Aug 10, 2016 09:08 AM FORMER TOBACCO USER 7Y OR GREATE R [facility] Aug 10, 2016 09:08 AM LIFETIME NON-TOBACCO USER [facility] Sep 06, 2014 08:19 AM FORMER TOBACCO USER 7Y OR GREATE R [facility] Dec 09, 2011 01:28 PM FORMER TOBACCO USER 7Y OR GREATE R [facility]
--- OUTSIDE RECORDS SUMMARY | 2023-12-09 15:38 | XMS_ITS | Encounter Summary ---
Author Name Department of Vetera Affairs Organization Department of Vetera Affairs Address [address] [place] [address] Care Team Providers Care Rubber Goods Supervisor Name Role Phone ROMANA GOLDSTEIN Primary Care [...] PART A Jul 21, 2007 PART A [id number] [phone] PRATEEK COHN PATIENT Selected Encounter This section includes the information on record at [place] for the Encounter. Date/Time Encounter Type Encounter Description Reason Pro vider Source Dec 09, 2023 10:19 AM Outpatient Encounter TELEPHONE PRIMARY CARE IHE Encounter Template Text not used by [place] Social History: Smoking Status (Most current) and Tobacco Use (All prior to encounter date) This section includes the most current, and the historical, smoking and tobacco- related health factors from the [place] facility where the Encounter took place. Current Smoking Status This section includes the most current smoking, or tobacco-related health factor, from the [place] facility where the Encounter took place. Date/Time Current Smoking Status Comment Yann ferrer Dec 01, 2017 02:51 PM LIFETIME NON-TOBACCO USER [facility] Tobacco Use History This section includes a history of the smoking, or tobacco-related health factors, that were collected on or before the date of the Encounter. The data comes from the [place] facility where the Encounter took place. Date/Time Smoking Status/Tobacco Use Comment F acility Aug 10, 2016 09:08 AM FORMER TOBACCO USER 7Y OR RAQUEL Waddell [facility] Aug 10, 2016 09:08 AM LIFETIME NON-TOBACCO USER [facility] Sep 06, 2014 08:19 AM FORMER TOBACCO USER 7Y OR RAQUEL Waddell [facility] Dec 09, 2011 01:28 PM FORMER TOBACCO USER 7Y OR RAQUEL Waddell [facility] Encounter Notes: All associated encounter notes This section contains the clinical notes associated to the Encounter. Date/Time Encounter Note(s) Provider Source Dec 09, 2023 10:19 AM SOCIAL WORK NOTE: LOCAL TITLE: SOCIAL WORK PROGRESS NOTE STANDARD TITLE: SOCIAL WORK NOTE DATE OF NOTE: DEC 09, 2023@10:19 ENTRY DATE: DEC 09, 2023@10:19:37 AUTHOR: ELLEN LEON COSIGNER: URGENCY: STATUS: COMPLETED PCSW received 4 minutes message from requesting a return call regarding discharge planning as she got an unexpected call that needs to discharge. Mineral Technologist placed return call to - Kenny on 12/08/23 and spoke with her. She stated that the hospital Fingernail Technician told her they couldn't find a place for so [place] may need to return home. Kenny stated they do not have any DME equipment and would need staffing to help her. Kenny stated they have a friend Ana that is willing to be hired on by home care ([facility]) to provide cares for [place]. Mineral Technologist verbalized understanding and stated I can request a consult be placed for [place] paid home care with [facility] once we know what is needed, Kenny verbalized appreciation. Kenny notes they are not set up at home with DME, commercial underwriter stated I would reach out to the hospital production planner scheduler to complete our Community DME form and we can then send that request in to be reviewed and filled as able, she verbalized appreciation. Kenny was very clear that she wants home. 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 She stated it is no hardship to her to have him home. However she would like to see [place] go to a alf for short term rehab and is not understanding why the hospital production planner scheduler is having such a difficult time finding a facility to take him. Mineral Technologist informed I would be calling the hospital Fingernail Technician to assist with any discharge plans and will assess the discharge plan more at that time. [facility] Fingernail Technician is off on 12/08/23- commercial underwriter called main Fingernail Technician line and left a message and called her direct line again on 12/09/23 and left another message, waiting return call. had no further questions on 12/08/23 during call. PCSW to remain available. /dexter/ ADELSO Sandoval Primary Care Fingernail Technician Signed: 12/09/2023 10:20 ELLEN LEON ([facility])
--- OUTSIDE RECORDS SUMMARY | 2023-12-09 15:38 | XMS_ITS | Encounter Summary ---
Author Name Department of Vetera Affairs Organization Department of Vetera Affairs Address [address], [place] [address] Care Team Providers Care Block Sealer Name Role Phone TRISTONHOARCE CASPERCIA Primary Care Provider Unavailabl e Insurance Providers: [...] PART A Jul 21, 2007 PART A [id number] 18A [phone] PRATEEK COHN PATIENT Selected Encounter This section includes the information on record at [place] for the Encounter. Date/Time Encounter Type Encounter Description Reason Pro vider Source Nov 30, 2023 03:31 PM Outpatient Encounter TELEPHONE TRIAGE IHE Encounter Template Text not used by [place] Plan of Treatment: Future Appointments (+ 6 months) and Future Tests (+/- 45 days) The Plan of Treatment section includes future care activities for the patient from all [place] treatmentfacilities. This section includes future appointments and future orders which are active, pending or scheduled. Future Appointments This section includes appointments that were scheduled to occur 6 months from the date of the Encounter, up to a maximum of 20 appointments. The data comes from all [place] treatment facilities. Appointment Date/Time Appointment Type Appointme nt Facility Name Dec 01, 2023 09:30 AM [facility]ULATORY - NONE [place] [facility] Social History: Smoking Status (Most current) and Tobacco Use (All prior to encounter date) This section includes the most current, and the historical, smoking and tobacco- related health factors from the [facility] where the Encounter took place. Current Smoking Status This section includes the most current smoking, or tobacco-related health factor, from the [facility] where the Encounter took place. Date/Time Current Smoking Status Comment Facil ity Dec 01, 2017 02:51 PM LIFETIME NON-TOBACCO USER [facility] Tobacco Use History This section includes a history of the smoking, or tobacco-related health factors, that were collected on or before the date of the Encounter. The data comes from the [facility] where the Encounter took place. Date/Time Smoking Status/Tobacco Use Comment F acility Aug 10, 2016 09:08 AM FORMER TOBACCO USER 7Y OR GREATE R [facility] Aug 10, 2016 09:08 AM LIFETIME NON-TOBACCO USER [facility] Sep 06, 2014 08:19 AM FORMER TOBACCO USER [address] [facility] Dec 09, 2011 01:28 PM FORMER TOBACCO USER [address] [facility] R [facility] Encounter Notes: All associated encounter notes This section contains the clinical notes associated to the Encounter. Date/Time Encounter Note(s) Provider Source Dec 02, 2023 11:13 AM ADDENDUM: LOCAL TITLE: Addendum STANDARD TITLE: ADDENDUM DATE OF NOTE: DEC 02, 2023@11:13:19 ENTRY DATE: DEC 02, 2023@11:13:21 AUTHOR: BEBETO CASH EXP COSIGNER: URGENCY: STATUS: COMPLETED Phoned [place]. Spoke with MEGAN Trevizo. [place] is still admitted to [facility]. -Karoline notes that the [facility] is contacting the [place] to discuss short term Rehab. -Karoline was with the impression that [place] [facility] already [facility] with [facility] and gotten approval for out of network short term rehab placement. -Cable Splicer Apprentice explained that he is unable to locate any notes regarding the rehab placemnt. PLAN: -Alerting PCSW to request from [facility] for short term rehab placement Phone call: 14 min /dexter/ Bebeto Cash RN [facility] Signed: 12/02/2023 11:20 Receipt Acknowledged By: 12/02/2023 12:05 /es/ ADELSO Sandoval Primary Care Machinist 2Nd Shift --- Original Document --- 11/30/23 CCC: SCHEDULING ADMINISTRATION: Primary Care Call Center Other: BEN Lamas called stating that the is requesting usp. Cydney can be contacted at the listed number below for any additional information. This note was created by a 3 [facility] Call Center ABDIAZIZ/RUTH. Please do not alert this keno writer by adding as a signer for future communications. Alerts are not monitored by this user, please reach out to [facility] Leadership instead if indicated. /dexter/ REX ESCOBEDO MSA,3 [facility] Signed: 11/30/2023 15:35 Receipt Acknowledged By: 12/02/2023 11:13 /dexter/ Bebeto Cash RN [facility] for BEBETO POOLE [facility] Nov 30, 2023 03:31 PM ADMINISTRATIVE NOT E: LOCAL TITLE: CCC: SCHEDULING ADMINISTRATION STANDARD TITLE: ADMINISTRATIVE NOTE DATE OF NOTE: NOV 30, 2023@15:31 ENTRY DATE: NOV 30, 2023@15:31:52 AUTHOR: REX ESCOBEDO EXP COSIGNER: URGENCY: STATUS: COMPLETED CCC: SCHEDULING ADMINISTRATION Has ADDENDA Primary Care Call Center Other: BEN Lamas called stating that the is requesting usp. Cydney can be contacted at the listed number below for any additional information. This note was created by a 3 [facility] Call Center TOM. Please do not alert this keno writer by adding as a signer for future communications. Alerts are not monitored by this user, please reach out to [facility] Leadership instead if indicated. /adriano ESCOBEDO MSA,3 [facility] Signed: 11/30/2023 15:35 Receipt Acknowledged By: 12/02/2023 11:13 /dexter/ Bebeto Cash RN [facility] for DANA AGUIRRE 12/02/2023 ADDENDUM STATUS: COMPLETED Phoned [place]. Spoke with MEGAN Trevizo. is still admitted to [facility]. -Karoline notes that the [facility] is contacting the [place] to discuss short term Rehab. -Karoline was with the impression that [place] has already spoken with the [facility] and gotten approval for out of network short term rehab placement. -Cable Splicer Apprentice explained that he is unable to locate any notes regarding the rehab placemnt. PLAN: -Alerting PCSW to request from [facility] for short term rehab placement Phone call: 14 min /dexter/ Bebeto Cash RN [facility] Signed: 12/02/2023 11:20 Receipt Acknowledged By: * AWAITING SIGNATURE * ELLEN LEON [facility]HA [facility] H[facility]
--- OUTSIDE RECORDS SUMMARY | 2023-12-09 15:38 | XMS_ITS | Encounter Summary ---
Author Name Department of Vetera Affairs Organization Department of Vetera Affairs Address [address] [place] [address] Care Team Providers Care Deck Mechanic Name Role Phone ROMANA GOLDSTEIN Primary Care [...] PART A Jul 21, 2007 PART A [id number] [phone] PRATEEK COHN PATIENT Selected Encounter This section includes the information on record at [place] for the Encounter. Date/Time Encounter Type Encounter Description Reason Pro vider Source Dec 06, 2023 09:18 AM Outpatient Encounter TELEPHONE PRIMARY CARE IHE Encounter Template Text not used by [place] Social History: Smoking Status (Most current) and Tobacco Use (All prior to encounter date) This section includes the most current, and the historical, smoking and tobacco- related health factors from the [place] facility where the Encounter took place. Current Smoking Status This section includes the most current smoking, or tobacco-related health factor, from the [place] facility where the Encounter took place. Date/Time Current Smoking Status Anatoly ferrer Dec 01, 2017 02:51 PM LIFETIME NON-TOBACCO USER [facility] Tobacco Use History This section includes a history of the smoking, or tobacco-related health factors, that were collected on or before the date of the Encounter. The data comes from the [place] facility where the Encounter took place. Date/Time Smoking Status/Tobacco Use Comment F acility Aug 10, 2016 09:08 AM FORMER TOBACCO USER 7Y OR RAQUEL R [facility] Aug 10, 2016 09:08 AM LIFETIME NON-TOBACCO USER [facility] Sep 06, 2014 08:19 AM FORMER TOBACCO USER 7Y OR RAQUEL R [facility] Dec 09, 2011 01:28 PM FORMER TOBACCO USER 7Y OR RAQUEL R [facility] Encounter Notes: All associated encounter notes This section contains the clinical notes associated to the Encounter. Date/Time Encounter Note(s) Provider Source Dec 06, 2023 09:18 AM SOCIAL WORK NOTE: LOCAL TITLE: SOCIAL WORK PROGRESS NOTE STANDARD TITLE: SOCIAL WORK NOTE DATE OF NOTE: DEC 06, 2023@09:18 ENTRY DATE: DEC 06, 2023@09:18:59 AUTHOR: ELLEN LEON EXP COSIGNER: URGENCY: STATUS: COMPLETED SOCIAL WORK PROGRESS NOTE Has ADDENDA PCSW received a voicemail from [place] - Karoline requesting return call regarding home care and retirement care as is currently in hospital looking to discharge soon. This specifications writer placed return call 's Karoline on this day (12/06/23) at [phone] and left a HIPPA compliant message on an unidentified voicemail introducing myself, the clinic I was calling with and requested a return call to my direct line at [phone], awaiting return call. /dexter/ ADELSO Sandoval Primary Care Ferry Pilot Signed: 12/06/2023 09:19 12/06/2023 ADDENDUM STATUS: COMPLETED PCSW received a return call from [place] Kenny on this day (12/06/23) and spoke with her regarding bringing [place] home after rehab. [place] is currently in the hospital and will discharge to a usp facility for short term rehab. Family is hoping to bring him home once rehab is complete. 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 Rivet Sorter stated she could become employed with the home care agency and they would pay her but A would not pay her directly, she voiced understanding. - Respite- verbalized understanding that this is available to her. - DME such as hospital beds, ramps and other items. is aware to contact specifications writer once needs are known after rehab, she verbalized understanding to call. also stated that her son and daughter in law are discussing moving her and down to them in [place] and inquired about [facility] benefits down there. Rivet Sorter stated that a lot of our programs are federal benefits so I would think so, but we could look into that more at the time, Kenny verbalized understanding. Kenny had no further questions at the time of visit. Kenny confirmed she has specifications writer direct line and will call with any questions. PCSW to remain available. /dexter/ ADELSO Sandoval Primary Care Ferry Pilot Signed: 12/06/2023 15:52 ELLEN LEON ([facility])
--- OUTSIDE RECORDS SUMMARY | 2023-12-09 15:38 | XMS_ITS | Encounter Summary ---
Author Name Department of Vetera Affairs Organization Department of Vetera Affairs Address [address] [place] [address] Care Team Providers Care Home Insurance Agent Name Role Phone ROMANA GOLDSTEIN Primary Care [...] PART A Jul 21, 2007 PART A [id number] [phone] PRATEEK COHN PATIENT Selected Encounter This section includes the information on record at [place] for the Encounter. Date/Time Encounter Type Encounter Description Reason Pro vider Source Dec 02, 2023 11:45 AM Outpatient Encounter TELEPHONE PRIMARY CARE IHE Encounter Template Text not used by [place] Social History: Smoking Status (Most current) and Tobacco Use (All prior to encounter date) This section includes the most current, and the historical, smoking and tobacco- related health factors from the [place] facility where the Encounter took place. Current Smoking Status This section includes the most current smoking, or tobacco-related health factor, from the [place] facility where the Encounter took place. Date/Time Current Smoking Status Comment Yann ferrer Dec 01, 2017 02:51 PM LIFETIME NON-TOBACCO USER [facility] Tobacco Use History This section includes a history of the smoking, or tobacco-related health factors, that were collected on or before the date of the Encounter. The data comes from the [place] facility where the Encounter took place. Date/Time Smoking Status/Tobacco Use Comment F acility Aug 10, 2016 09:08 AM FORMER TOBACCO USER 7Y OR SARYE R [facility] Aug 10, 2016 09:08 AM LIFETIME NON-TOBACCO USER [facility] Sep 06, 2014 08:19 AM FORMER TOBACCO USER 7Y OR RAQUEL R [facility] Dec 09, 2011 01:28 PM FORMER TOBACCO USER 7Y OR RAQUEL R [facility] Encounter Notes: All associated encounter notes This section contains the clinical notes associated to the Encounter. Date/Time Encounter Note(s) Provider Source Dec 02, 2023 11:45 AM SOCIAL WORK NOTE: LOCAL TITLE: BEN SOCIAL WORK PROGRESS NOTE STANDARD TITLE: SOCIAL WORK NOTE DATE OF NOTE: DEC 02, 2023@11:45 ENTRY DATE: DEC 02, 2023@11:45:32 AUTHOR: ELLEN LEON EXP COSIGNER: URGENCY: STATUS: COMPLETED SOCIAL WORK PROGRESS NOTE Has ADDENDA PCSW received a fax from the hospital Rubber And Pounder requesting informaiton on Veterans short term rehab benefits through the [place]. This investigative writer placed return call to [facility] Rubber And Pounder on this day (12/02/23) at and spoke with her. Email Administrator informed her that [place] does not have short term rehab benefits or terminal manager benefits unless he is on hospice and would need to utilize Medicare for rehab if he had it, she verbalized understanding. Romana stated she would follow up with regarding this information. PCSW also had a message from Brooke Zhou asking about POA information. This investigative writer did not find an DEJAN on file nor was she listed on the facesheet. Email Administrator called number provided ([phone]) and was unable to leave a message as the mailbox was full. Email Administrator also attempted to reach - Kenny regarding the POA information and left a HIPPA complaint message on an identified voicemail introducing myself, the clinic I was calling with and requested a return call to my direct line at [phone], awaiting return call. /dexter/ EllenADELSO [facility] Primary [facility] Rubber And Pounder Signed: 12/02/2023 11:45 12/02/2023 ADDENDUM STATUS: COMPLETED Email Administrator received a call back from [facility] stated that they did not call about POA information and do not have any family with the name Brooke. Email Administrator reviewed with AMS[employer] and message was entered in correctly on the PCSW call list. Email Administrator call and provided reassurance that it was entered incorrectly and no information was provided to the other person. PCS to remain available. /dexter/ ADELSO Sandoval Primary Care Rubber And Pounder Signed: 12/02/2023 12:04 ELLEN LEON ([facility])
--- OUTSIDE RECORDS SUMMARY | 2023-12-09 15:38 | XMS_ITS | Clinical Summary ---
Author Organization [facility] Address [place], [place] [address] Care Team Providers Care Customer Service Administrator Name Role Phone [place], [place] Primary Care Provider [phone] Allergies No known active allergies Medications Medication Sig Dispensed Refills Start Date End Date Status omeprazole (PRILOSEC) 20 mg Delayed-Release capsuleIndications:C hronic cough,Abdominal pain, epigastric Take 1 capsule by mouth once daily before a meal. 30 capsule 1 08/23/2018 Active ofloxacin 0.3 % ophthalmic (OCUFLOX) 0.3 % ophthalmic solution 1 drop in surgical eye twice daily for 10 days. 5 mL 6 09/04/2018 Active prednisoLONE acetate 1% ophthalmic (ECONOPRED PLUS, PRED FORTE, OMNIPRED) suspension Place 1 Drop in surgical eye 4x/day, taper as directed. SHAKE WELL 15 mL 5 09/04/2018 Active ketorolac 0.5 % ophthalmic (ACULAR) solution Place 1 Drop into surgical eye 4 times daily. 10 mL 5 09/04/2018 Active tamsulosin (FLOMAX) 0.4 mg capsule TAKE ONE CAPSULE BY MOUTH EVERY EVENING FOR PROSTATE 09/07/2021 Active Active Problems Problem Noted Date Diagnosed Date Bilateral pseudophakia 10/13/2018 GERD (gastroesophageal reflux disease) 9 Family history of prostate cancer 10/14/2017 BPH without urinary obstruction 10/14/2017 Hearing decreased, bilateral 10/14/2017 Encounters Date Type Department Care Team Description 10/03/2023 Telephone [facility] [address] [place] [address] Abilio Ken, [place] hearing aid 09/19/2023 10:30 AM CDT Office Visit [facility] [address] [place] [address] Kandy Xiao, [place] Hearing Aid (YAP check) 09/19/2023 Travel 09/12/2023 9:30 AM CDT Office Visit [facility] [address] [place] [address] Kandy Xiao AuD Hearing Aid (YAP check) 09/12/2023 Travel from Last 3 Months Immunizations Name Administration Dates Next Due Td (Age >=7 Years) 09/20/2003,2000 Family History Medical History Relation Name Comments Cancer Brother 1 lung cancer -yap lf brother Alcoholism Brother 2 Cancer-prostate Father Heart Disease Mother Relation Name Status Comments Brother 1 Brother 2 Father (Age 72) Prostate C a Mother (Age 84) Morphine i n [place] Social History Tobacco Use Types Packs/Day Years Used Date Smoking Tobacco: Never Smokeless Tobacco: Never Tobacco Cessation:Counseling Given: Yes Alcohol Use Standard Drinks/Week Comments No 0 (1 standard drink = 0.6 oz pur e alcohol) no use since 1977 PHQ-2 Answer Date Recorded PHQ-2 Score 0 08/20/2018 Social Connections Answer Date Recorded Frequency of Communication with Friends and Fami ly Not on file 09/14/2021 Sex and Gender Information Value Date Recorded Sex Assigned at Not on file Gender Identity Not on file Sexual Orientation Not on file Obstetrics History Last Filed Vital Signs Vital Sign Reading Time Taken Comments Blood Pressure 142/78 11/06/2018 10:43 AM CDT Pulse 72 09/14/2021 7:56 AM CDT Temperature 36.4 ??C (97.5 ??F) 10/12/2018 1 0:02 AM CDT Respiratory Rate 16 10/12/2018 1:33 PM CDT Oxygen Saturation 97% 09/14/2021 7:56 AM CDT Inhaled Oxygen Concentration - - Weight 82.5 kg (181 lb 12.8 oz) 09/14/2021 7:56 AM CDT Height 180.3 cm (5' 11) 10/12/2018 10: 02 AM CDT Body Mass Index 25.36 10/12/2018 10:02 AM CDT Plan of Treatment Health Maintenance Due Date Last Done Comments Tdap 1953 Zoster (shingles) series for age 50+ (1 of 2) 1992 Pneumococcal series for age 65+ (1 of 1 - PCV) 2007 Tetanus booster 09/19/2013 09/20/2003, 2000 Medicare Wellness for age 65+ 10/14/2018 10/13/2017 BMI (ht and wt on same day) for age 18+ 08/24/2019 08/23/2018, 10/13/2017, 12/15/2015 Depression screening for age 12+ 08/24/2019 08/23/2018, 10/13/2017, 10/13/2017, Additional history exists COVID-19 vaccine series ( season) 2023 Influenza for age 65+ 02/19/2024 Medical Devices Implanted Type Area Per Diem Clerk Device Identifier Shelf Expiration Date Model / Serial / Lot Iol Bethel +23.5 [employer]ecnis Zcb00 - [id number] Implanted:Qty: 1 on 09/04/2018 by Pacheco Greenwood MD at [facility] Right: Eye [employer] 03/03/2022 ZCB00 23.5# / [id number] / Iol [place]hel +23.5 [employer]ecnis Zcb00 - [id number] Implanted:Qty: 1 on 10/12/2018 by Pacheco Greenwood MD at [facility] Left: Eye [employer] 01/09/2022 ZCB00 23.5# / [id number] / Advance Directives * Full Code (Latest Code Status on File) Date Activated Date Inactivated Comments 10/12/2018 9:48 AM 10/12/2018 4:08 PM * Full Code Date Activated Date Inactivated Comments 09/04/2018 8:31 AM 09/04/2018 1:15 PM Care Teams Customer Service Administrator Relationship Specialty Start Date End Date [facility], [place] [address] [place] [id number] PCP - General 09/28/22
--- OUTSIDE RECORDS SUMMARY | 2023-12-09 15:38 | XMS_ITS | Encounter Summary ---
Author Organization [facility] Address [address] [place] [id number] Care Team Providers Care Block Sawyer Name Role Phone Elsewhere, Pcp Primary Care Provider Unavailabl e Reason for Visit * Reason Comments Fall * Auth/Cert (Routine) Specialty Diagnoses / Procedures Referred By Rahul preciado Referred To Contact Diagnoses Anemia Contusion Buttock Initial Subarachnoid Hemorrhage With Loss Of Conscious Initial (HCC) Fracture Acetabulum Closed Initial Left (HCC) Fracture Ilium Closed Initial Left (HCC) History Of Falling Other Shock (Hemorrhagic Shock) (HCC) Retroperitoneal Hematoma Procedures EMERGENCY Carol Miller M.D. [address] [place] [phone] Referral ID Status Reason Start Date Expiration Date Visits Re quested Visits Authorized [id number] 1 1 Encounter Details Date Type Department Care Team (Latest Contact Info) Description 11/23/2023 12:47 PM CDT - Present Hospital Encounter [facility], [facility], [facility], Fifth Floor [address] [place] [phone] Carol Miller M.D. [address] [place] [phone] Jason Navarrete M.D. [address] [place] [phone] Landen Quinonez M.D. [address] [place] [phone] Alexi Khan M.D. [address] [place] [phone] Fracture Ilium Closed Initial Left (HCC) (Primary [...] Behavior Disturbance (HCC) [G30.9, F02.80]; Delirium [R41.0] Social History Tobacco Use Types Packs/Day Years [...] Time (min): 31 min Pippa Lee O.T., O.TDominic * Maria Del Carmen Diaz, PTarikTYenny - 12/09/2023 12:17 PM CDT Physical Therapy [...] cues and switched to left foot on FIELD CARE MANAGER's foot to monitor weight bearing and verbal [...] Therapeutic functional activity, Neuromuscular re-education, Gait training FIELD CARE MANAGER Visit Trackin Time Spent with Patient Therapeutic Interventions Therapeutic Activity (min): 20 min Therapeutic Exercise (min): 10 min Time Tracking Total Timed Units (min): 30 min Total Treatment Time (min): 30 min Maria Del Carmen Diaz P.T.A. * Lizett Ashraf O.T., O.T.D., VINITA - [...] not acutely ill, no apparent distress. ENT: [place] Lungs: Normal rate and effort Heart: No extremity edema. Abdomen: nondistended, nontender Mental: Attention intact (completed backwards days) RASS 0. Converses well. Alert. Answers questions generally appropriately. Was telling nursing Jf did not want him to get catheterized. DIAGNOSTICS I have independently reviewed labs over 24 hrs. ASSESSMENT / PLAN Mr. Grayson is hospitalized on [facility] Trauma for evaluation and management of: Fracture Ilium Closed Initial Left (HCC). 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 Comorbidities include (collateral received from Mikayla- [...] #20 Thrombosis Deep Vein Lower Extremity Left ([facility]) #21 Dysphagia Lisbeth consulted on 11/23 for [...] sleep enhancement General delirium prevention/management strategies: Minimize MANGANESE BREAKER-acting medications. Increase mobility to match ability. Frequent reorientation. Provide moderate level of social and cognitive stimulation. Treat dehydration and constipation. Nonpharmacologic sleep promotion strategies. The above plan of care was discussed with Dr. Coello, HIM nursing education consultant. I personally spent a total of 35 minutes providing and coordinating care today. Thank you for the opportunity to care for this patient. We will continue to follow with you. Pleasepage the Geriatrics Consult Service at [phone] with any questions or concerns. * Fidelina Lopes Barbara - 12/08/2023 11:25 AM CDT Nutrition Care [...] and not believing he needs them; however, DEPARTMENT HEAD JUNIOR COLLEGE confirmed he is still drinking them. Will [...] 1357 GI Function: Last BM Date: 12/08/23, Harney Stool Chart: Type 4: Like a sausage or snake, smooth and soft, Passing Flatus: Yes Weight since admission: Height: 180.3 cm Admission Weight: 86.3 kg (11/23/2023) Current Weight: 93.4 kg (11/30/2023) BMI (Calculated): 28.7 kg/m?? Weight change since admission: 7.1 kg Net IO Since Admission: -2,395.43 mL [12/08/23 1125] Estimated Needs: Total Calorie Needs: 9248-2163 calories/day Method to Estimate Energy Needs: kcal/kg [...] about patient's nutritional care please contact pager [phone] on weekdays 07:30-16:00 or [phone] on weekends/holidays ([facility]). * Maria Del Carmen Diaz, [...] of bed elevated Cuing: Verbal, Tactile Comments: Wiyth head of bed raised patient able to [...] cues and switched to left foot on FIELD CARE MANAGER's foot to monitor weight bearing and verbal [...] Therapeutic functional activity, Neuromuscular re-education, Gait training FIELD CARE MANAGER Visit Trackin Time Spent with Patient Therapeutic Interventions Therapeutic Activity (min): 20 min Therapeutic Exercise (min): 10 min Time Tracking Total Timed Units (min): 30 min Total Treatment Time (min): 30 min Maria Del Carmen Diaz P.T.ATarik * Chavez Ashby Jr., MOVEMENT THERAPIST, C.N.P., M.S.N. - 12/08/2023 8:37 AM CDT Trauma Daily Progress Note ([id number]) Admission Date/Time: 11/23/2023 12:47 PM SUBJECTIVE No [...] 96 % Pulse Rate: [73-91] 76 Date 12/07/23 07 - 12/08/23 0659 12/08/23 07 - 12/09/23 0659 Shift 4185-2088 5817-0708 5149-4257 24 Hour Total 8943-0102 8911-7805 8577-5247 24 Hour Total INTAKE P.O. 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 All are in agreement that pursuing long-term facility placement to focus on rehabilitation. Vision is does add that she would limit his admission to three-month and then wishes to take him home to [place] with family support as well as home health care if needed. I reviewed these updates with social work as well as the charge nurse to continue pursuing placement options in the area and we will look to weaned towards closed observation as safely able in the context of 2 recent guided falls. Please feel free to page me at [phone] between [phone]. If unable to reach me please page the [facility]-Trauma Service at [phone] with any questions in regards to the plan of care. * Alexi Khan M.D. - 12/07/2023 7:24 PM CDT I saw and examined the patient along with the resident/CHAIR CANER-PA team and agree with the findings and [...] transfer to SNF. Alexi Khan MD, FACS Matchbook Assembler youth teacher, [facility] [employer] Division of Trauma, Critical Care and General Surgery; Department of Surgery (Pager) (office) fax [email or web address] * Alexi Hahn Chaplain - 12/07/2023 10:45 AM CDT [facility] Spiritual Care Consult Note Patient: Carlos Alberto Grayson Age:83 y.o. Location: [id number] Reason(s) for encounter: Spiritual Care contact for ongoing spiritual care. Summary: I was able to meet with Carlos Alberto Grayson . At the time of the visit the patient said that he had only been in the hospital for 30 minutes. He seemed pleasantly confused. He did engage with the tax collection coordinator on a spiritual conversation level. A prayer was said at the bedside. Cnc Supervisor Jamil was present and his DEPARTMENT HEAD JUNIOR COLLEGE was in the room with him. Spiritual Assessment Faith Identification / Spiritual Practices: He was a Episcopalian and he seems to have a Methodist background. Spiritual Care interventions: Facilitated rastafari/spiritual practices (prayer, blessing, sacred texts, rastafari item) with theaim to reinforce patient's spiritual wellness and connection with source of sacredness. Spiritual Care outcomes: Patient/family expressed feeling comforted by prayer Patient/family was appreciative of spiritual care support. Spiritual Care Plan / Recommendations: Will remain available for spiritual care as needed or requested. Chaplains can be contacted by paging [phone] ([place]) or [phone] (Hindu). * Nurys Cifuentes P.A.-C. - 12/07/2023 10:25 [...] not acutely ill, no apparent distress. ENT: [place] Lungs: Normal rate and effort Heart: No extremity edema. Abdomen: nondistended, nontender Mental: Attention intact (completed backwards days and months May-Mar) No evidence of disorganized thinking. RASS 0. Converses well. DIAGNOSTICS I have independently reviewed labs over 24 hrs. ASSESSMENT / PLAN Mr. Grayson is hospitalized on [facility] Trauma for evaluation and management of: Fracture Ilium Closed Initial Left (HCC). 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 Increase mobility to match ability. Frequent reorientation. Provide moderate level of social and cognitive stimulation. Treat dehydration and constipation. Nonpharmacologic sleep promotion strategies. The above plan of care was discussed with Dr. Coello, HIM nursing education consultant. I personally spent a total of 35 minutes providing and coordinating care today. Thank you for the opportunity to care for this patient. We will continue to follow with you. Pleasepage the Geriatrics Consult Service at [phone] with any questions or concerns. * Hayley Durham L.G.S.W., M.S.W. - 12/07/2023 10:03 AM CDT SUBJECTIVE Social Work contacted [place] [facility] regarding insurance coverage listed on patient's facesheet and . Social Work communicated with [facility], [facility], and [facility].Social Work resent referral package to [facility], [facility], and [facility]. Social Work sent referrals to [facility], [facility], [facility], [facility], and [facility]. Social Work spoke with patient's on [...] home. She will be available to provide 24/ presence between herself, paid help, [place] home health care (20+ hours per week), and evangelical friends. 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 She is comfortable with cathing, hoier lifts, slings, wheelchairs, etc. The [facility] can assist patient with providing a hoier lift, sling, wheelchairs, walkers, incontinence supplies, and hospital bed. This can take some time to arrange, perhaps up to one month. Patient's will contact [facility] Premises Technician Clara regarding this on 12/08/23. Patient's is [...] to await safe discharge plan. Referrals sent: [facility] - will assess if off of Safety Plan [facility] [address] ACO [facility] ACO [facility] ACO [facility] ACO [facility] ACO - DECLINED (full) [facility]-DECLINED (they do not accept for short term rehab) [facility] - DECLINED (cannot provide for patient's needs) [facility] -DECLINED (facility full) [facility]-DECL[facility] (facility full) [facility] - DECLINED (acuity too high) [facility] ACO - DECLINED (bed not available) [facility] - DECLINED (full) [facility] - DECLINED (patient needs) ASSESSMENT / PLAN ASSESSMENT Patient's continues to collaboratively plan for patient's safe discharge plan. PLAN Patient's desires patient to discharge to long-term facility with PT/OT for 0-3 months. She endorses broad referrals throughout [place] and into [place] if necessary. She is interested in nursing homes/critical access hospitals/'s homes. [place] PAS: Con[place] is: [id number] Patient's would like patient to return to home with home health care if long-term facility is not available. The [facility] system can assist patient with necessary equipment and supplies. Patient's is not agreeable to Memory Care placement. Social Work will continue to assist with discharge needs. Social Work will continue to follow to provide support. Aimee Ahuja, M.S.W. 12/07/23 * Chavez Ashby Jr., LOC, C.N.P., M.S.N. - 12/07/2023 7:16 AM CDT Trauma Daily Progress Note ([id number]) Admission Date/Time: 11/23/2023 12:47 PM SUBJECTIVE Mr. [...] % Pulse Rate: [66-90] 80 Date 12/06/23 07 - 12/07/23 0659 12/07/23 07 - 12/08/23 0659 Shift 5952-9748 6255-1665 3923-2842 24 Hour Total 1997-3310 7337-8209 4195-8306 24 Hour Total INTAKE P.O. 082 596 0065 Shift Total(mL/kg) 900(9.6) 250(2.7) 1150(12.3) OUTPUT Urine(mL/kg/hr) [...] #9 Fracture Acetabulum Other Closed Initial Left ([facility]) #10 Fracture Pelvis Multiple Closed With Stable Disruption Pelvis Ring Initial ([facility]) #11 Fracture Ilium Closed Initial Left (HCC) [...] planning. All are in agreement that pursuing long-term facility placement to focus on rehabilitation. Vision is does add that she would limit his admission to three-month and then wishes to take him home to [place] with family support as well as home health care if needed. I reviewed these updates with social work as well as the charge nurse to continue pursuing placement options in the area and we will look to weaned towards closed observation as safely able in the context of 2 recent guided falls. Please feel free to page me at [phone] between [phone]. If unable to reach me please page the [facility]-Trauma Service at [phone] with any questions in regards to the plan of care. * Hayley Durham L.G.S.W., M.S.W. - 12/06/2023 3:03 PM CDT SUBJECTIVE Social Work communicated with Service and Nursing regarding discharge needs. Service reports patient's indicates patient has returned to baseline and patient is medically ready for discharge. Patient's previously has expressed desire for patient to return home with home care. Social Work spoke with staff at [facility], [facility], and [facility] regardingprevious referrals. Social Work resent referral to those three facilities. Social Work sent referrals to [facility], [facility], [facility], [facility], [facility], [facility], and [facility]. OBJECTIVE Patient is now considered medically ready for discharge. Referrals sent: [facility] A[facility] (facility full) [facility] -[facility] (facility full) [facility] (they do not accept for short term rehab) [facility] - SNF ASSESSMENT / PLAN ASSESSMENT Patient's is collaboratively planning appropriately for patient's discharge needs. PLAN Patient will discharge to long-term facility for short term rehab. Social Work will continue to assist with discharge needs. Social Work will continue to follow to provide support. Aimee Ahuja, M.S.W. 12/06/23 * Kavon Mancilla, LOC, C.N.P., D.N.P. - 12/06/2023 2:09 PM CDT Images from the original note were not included. SUBJECTIVE I met and examined Mr. Grayson this morning. Mr. Grayson is hospital day 13 for management of histraumatic injuries following fall from 6 ft off a ladder. No events overnight. He remains hemodynamically stable and afebrile. The bedside DEPARTMENT HEAD JUNIOR COLLEGE states that the patient slept ok overnight [...] intake over multiple days. Discussed with bedside DEPARTMENT HEAD JUNIOR COLLEGE about encouraging oral intake. OBJECTIVE Temperature: [36.3 [...] #9 Fracture Acetabulum Other Closed Initial Left ([facility]) #10 Fracture Pelvis Multiple Closed With Stable Disruption Pelvis Ring Initial ([facility]) #11 Fracture Ilium Closed Initial Left ([facility]) Multiple comminuted fractures of the left anterior [...] planning. All are in agreement that pursuing long-term facility placement to focus on rehabilitation. Vision is does add that she would limit his admission to three-month and then wishes to take him home to [place] with family support as well as home [...] concerns please page the Trauma Service at [phone] * Raegan Drew P.T., D.P.T. - 12/06/2023 [...] Patient Comments: Laying in bed upon arrival. DEPARTMENT HEAD JUNIOR COLLEGE at bedside. Precautions Weight Bearing Status: TTWB [...] Time (min): 15 min Raegan Drew P.T., Olivia.P.T. * Brian Danielaleonidas Cagle R.N., CCristopherN. - 12/06/2023 11:11 AM CDT [facility] Wound RN following up to assess Carlos Alberto Grayson skin alterations. Wound assessment, pain, and Bradly [...] assessed while lying in bed with unit DEPARTMENT HEAD JUNIOR COLLEGE at bedside. The right pretibial traumatic wound [...] Secondary Dressing Status Clean;Dry;Intact Changed by Wound alignment mechanic Head to toe assessment completed. DRESSING RECOMMENDATIONS: [...] nursing. They agree to the plan. The WOC RN will sign-off. Please place a wound [...] not acutely ill, no apparent distress. ENT: [place] Lungs: Normal rate and effort Heart: No extremity edema. Abdomen: nondistended, nontender Mental: Attention intact (completed backwards days and months with one mistake) No evidence of disorganized thinking. RASS 0. CAM negative for acute delirium. DIAGNOSTICS I have independently reviewed labs over 24 hrs. ASSESSMENT / PLAN Mr. Grayson is hospitalized on [facility] Trauma for evaluation and management of: Fracture Ilium Closed Initial Left (HCC). 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 Comorbidities include (collateral received from Mikayla- [...] to home with home health care versus DEPARTMENT HEAD JUNIOR COLLEGE support. RECOMMENDATIONS: Continue I&O cathing every 6 hours Continue new tamsulosin and finasteride Continue increased dose of melatonin Continue IV olanzapine 2.5 mg PRN only if patient or staff safety is concerning General delirium prevention/management strategies: Minimize MANGANESE BREAKER-acting medications. Increase mobility to match ability. Frequent reorientation. Provide moderate level of social and cognitive stimulation. Treat dehydration and constipation. Nonpharmacologic sleep promotion strategies. The above plan of care was discussed with Dr. Coello, HIM nursing education consultant. I personally spent a total of 50 minutes providing and coordinating care today. Thank you for the opportunity to care for this patient. We will continue to follow with you. Pleasepage the Geriatrics Consult Service at [phone] with any questions or concerns. * Mickey [...] please contact the Orthopedic Surgery house resident training and documentation specialist at [phone] * Alexi Khan M.D. - 12/05/2023 4:46 PM CDT I saw and examined the patient along with the resident/CHAIR CANER-PA team and agree with the findings and [...] vs memory care. Alexi Khan MD, FACS Matchbook Assembler youth teacher, [facility] [employer] Division of Trauma, Critical Care and General Surgery; Department of Surgery (Pager) (office) fax [email or web address] * Hayley Durham L.G.S.W., M.S.W. - 12/05/2023 3:45 PM CDT SUBJECTIVE Social Work communicated with patient's regarding discharge planning. Patient's indicatespatient seems to be doing much better cognitively per her phone calls with him. Patient's communicated potential plan to return to home with home health care to patient and reports he was agreeable. Social Work communicated with Service regarding discharge planning. OBJECTIVE Per [place] Social Work, patient does not have VA short-term rehab or long-term care benefits. He does have [place] home care benefits. Patient is on Safety Plan. Patient is anticipated to be ready for discharge by 12/09/23. Referrals sent: [facility]fac[facility]) [facility]) [facility] (they do not accept for short term rehab) [facility] - SNF ASSESSMENT / PLAN ASSESSMENT Patient disposition is dependent on safety to return home or appropriateness for long-term facility based on cognition. PLAN Patient's would [...] Nutrition (since admission): Spoke with patient and DEPARTMENT HEAD JUNIOR COLLEGE. Patient's appetite has been improving according to the DEPARTMENT HEAD JUNIOR COLLEGE and patient himself. He frequently sips fluids during meals and is having no issues chewing or swallowing with his current texture (SB6). According to DEPARTMENT HEAD JUNIOR COLLEGE, patient drinks his Ensure Plus and smoothie [...] 1357 GI Function: Last BM Date: 12/05/23, Harney Stool Chart: Type 3: Like a sausage but with cracks onthe surface, Passing Flatus: Yes Weight since admission: Height: 180.3 cm Admission Weight: 86.3 kg (11/23/2023) Current Weight: 93.4 kg (11/30/2023) BMI (Calculated): 28.7 kg/m?? Weight change since admission: 7.1 kg Net IO Since Admission: 439.57 mL [12/05/23 1435] Estimated Needs: Total Calorie Needs: 1182-9071 calories/day Method to Estimate Energy Needs: kcal/kg [...] about patient's nutritional care please contact pager [phone] on weekdays 07:30-16:00 or [phone] on weekends/holidays ([facility]). * Margie Roth P.Donald., D.P.T. - 12/05/2023 1:52 PM CDT Physical [...] addressed during today's session. Assessment Mr. Grayson polibrysonly declined all standing activities today due to fear of falling and pain despite encouragement from PT and DEPARTMENT HEAD JUNIOR COLLEGE. Continues to be disoriented to time, place, [...] Time (min): 15 min Margie Roth P.T., D.P.T. * Lalita Bacon APRN, C.N.P., D.N.P. - 12/05/2023 9:50 AM CDT Images from the original note were not included. SUBJECTIVE I met and examined Mr. Grayson this morning. Mr. Grayson is hospital day 12 for management of histraumatic injuries following a 6 foot fall from a ladder. He was restless and attempting to get up from the bed with 2 DEPARTMENT HEAD JUNIOR COLLEGE's in the room when I arrived this AM. He was pleasant and alert. He was onlyoriented to himself. He was unable to tell me where he was or why. He was semi re-directable but with multiple cues. Per bedside nurse and DEPARTMENT HEAD JUNIOR COLLEGE he did have another assisted fall (or [...] CONSULT TO NEUROLOGICAL SURGERY IP CONSULT TO [facility] IP CONSULT TO [facility] IP CONSULT TO PHYSICAL MEDICINE & REHABILITATION IP CONSULT TO NEUROLOGY IP CONSULT TO MANGANESE BREAKER WOUND CARE HUMANITIES IN MEDICINE SERVICES ([facility]) IP CONSULT TO CHEESEMAKER HELPER EXPERIMENTAL MECHANIC ELECTRICAL IP CONSULT TO CHEESEMAKER HELPER EXPERIMENTAL MECHANIC ELECTRICAL ASSESSMENT / PLAN Diet: Adult Diet Dysphagia; [...] vein - Discussed with Dr. Khan (trauma nursing education consultant on 12/04) & due to the [...] ramelteon d/t more alerted mental status on 06/14 but continuing with melatonin (increased to 6 [...] concerns please page the Trauma Service at [phone] Addendum @ [phone]: Spoke to Mrs. Grayson this afternoon about [...] house and she does not believe that [facility] understands if he should be doing them. [...] continue to follow for medication use optimization. Josef Ferrara, Pharm.D., R.Ph. * Izabella Burkett, O.T., [facility] - 12/05/2023 9:15 AM CDT Occupational Therapy Dysphagia Treatment SUBJECTIVE Patient's Name: Carlos Alberto Lincarynedwar Referring/Attending Provider: Alexi Khan M.D. Medical Diagnosis: Anemia [D64.9] Contusion Buttock Initial [S30.0XXA] Subarachnoid Hemorrhage With Loss Of Conscious Initial (HCC) [S06.6X9A] Fracture Acetabulum Closed Initial Left (HCC) [S32.402A] Fracture Ilium Closed Initial Left (HCC) [S32.302A] History Of Falling [Z91.81] Other Shock (Hemorrhagic Shock) (HCC) [R57.8] Retroperitoneal Hematoma [K68.3] Reason for Referral: Reason for Referral: OT dysphagia Onset Date: 11/23/23 Payor: [facility] / Plan: [place] / Product Type: Indemnity / History of [...] Patient sitting chair with breakfast present and DEPARTMENT HEAD JUNIOR COLLEGE. Precautions Weight Bearing Status: TTWB LLE - [...] and patient's status was discussed, Other (comment) (DEPARTMENT HEAD JUNIOR COLLEGE present for therapy session) Patient was left in bedside chair at end of session with call light in reach, all needs met and questions answered. Additional Staff Present During Session: DEPARTMENT HEAD JUNIOR COLLEGE Assessment Time Dysphagia Assessment Completed: 915 Clinical Impression/Recommendations: Patient was observed sitting upright in bedside chair with scrambled eggs, breakfast potatoes, oatmeal, and diced pears with milk. Patient had no overt signs of aspiration with bites observed. Patient appeared to have poor appetite this morning and was only agreeable to few bites. DEPARTMENT HEAD JUNIOR COLLEGE present during meal to ensure aspiration precautions [...] 7:00am to 4:00pm: Our service pager at [facility]: #[phone] Our service pager at [facility]: #[phone] * Kezia Lopes APRN, C.N.P., D.N.P. - [...] / PLAN Mr. Grayson is hospitalized on [facility] Trauma for evaluation and management of: Fracture Ilium Closed Initial Left (HCC). 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 Increase mobility to match ability. Frequent [...] care was discussed with Dr. Coello, HIM nursing education consultant. I personally spent a total of 25 minutes providing and coordinating care today. Thank you for the opportunity to care for this patient. We will continue to follow with you. Pleasepage the Geriatrics Consult Service at [phone] with any questions or concerns. * Lizett [...] full meal next session. Tamia Ashraf O.T., O.T.D., VINITA * Sonali Meng P.T., DemetriusP.T. - 12/04/2023 12:49 PM CDT Physical Therapy [...] was sitting in bed with 1:1 room DEPARTMENT HEAD JUNIOR COLLEGE and nurse providing cares. Nursing identified Carlos [...] Time (min): 26 min Sonali Meng P.T., D.P.T. * Lalita Bacon APRN, C.N.P., D.N.P. - 12/04/2023 8:11 AM CDT Images from the original note were not included. SUBJECTIVE I met and examined Mr. Grayson this morning. Mr. Grayson is hospital day 11 for management of histraumatic injuries following a fall from ladder. Patient was laying in bed this morning upon my arrival with a DEPARTMENT HEAD JUNIOR COLLEGE in the room. He does not appear [...] the room from the chair. Per the DEPARTMENT HEAD JUNIOR COLLEGE that was in the room the patient [...] the floor. I did speak with Ortho house this morning and we will obtain pelvic [...] CONSULT TO NEUROLOGICAL SURGERY IP CONSULT TO [facility] IP CONSULT TO [facility] IP CONSULT TO PHYSICAL MEDICINE & REHABILITATION IP CONSULT TO NEUROLOGY IP CONSULT TO MANGANESE BREAKER WOUND CARE HUMANITIES IN MEDICINE SERVICES ([facility]) IP CONSULT TO CHEESEMAKER HELPER EXPERIMENTAL MECHANIC ELECTRICAL ASSESSMENT / PLAN Diet: Adult Diet Dysphagia; [...] concerns please page the Trauma Service at [phone] * Kezia Lopes APRN, C.N.P., D.N.P. - [...] / PLAN Mr. Grayson is hospitalized on [facility] Trauma for evaluation and management of: Fracture Ilium Closed Initial Left (HCC). 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 Increase mobility to match ability. Frequent [...] care was discussed with Dr. Green, HIM nursing education consultant. I personally spent a total of 25 minutes providing and coordinating care today. Thank you for the opportunity to care for this patient. We will continue to follow with you. Pleasepage the Geriatrics Consult Service at [phone] with any questions or concerns. * Lizett Ashraf O.T., O.T.Demetrius, [facility] - 12/03/2023 1:20 PM CDT Occupational Therapy [...] Referral: OT dysphagia Onset Date: 11/23/23 Payor: [employer] / Plan: [facility] / Product Type: Indemnity / History [...] and patient's status was discussed, Other (comment) (DEPARTMENT HEAD JUNIOR COLLEGE present for therapy session) Patient was left in bedside chair at end of session with call light in reach, all needs met and questions answered. Additional Staff Present During Session: DEPARTMENT HEAD JUNIOR COLLEGE Assessment Time Dysphagia Assessment Completed: 1:20 pm [...] 7:00am to 4:00pm: Our service pager at [facility]: #[phone] Our service pager at [facility]: #[phone] * Lalita Bacon APRN, C.N.P., D.N.P. - 12/03/2023 9:45 AM CDT Images from the original note were not included. SUBJECTIVE I met and examined Mr. Grayson this morning. Mr. Grayson is hospital day 10 for management of histraumatic injuries following a fall from a ladder. On my initial arrival patient was asleep with the 1:1 DEPARTMENT HEAD JUNIOR COLLEGE at bedside, I left the patient sleeping [...] TO HOSPITAL INTERNAL MEDICINE IP CONSULT TO [facility]OSPITAL INTERNAL MEDICINE IP CONSULT TO PHYSICAL MEDICINE & REHABILITATION IP CONSULT TO NEUROLOGY IP CONSULT TO MANGANESE BREAKER WOUND CARE HUMANITIES IN MEDICINE SERVICES ([facility]) IP CONSULT TO CHEESEMAKER HELPER EXPERIMENTAL MECHANIC ELECTRICAL ASSESSMENT / PLAN Diet: Adult Diet Dysphagia; [...] #9 Fracture Acetabulum Other Closed Initial Left ([facility]) #10 Fracture Pelvis Multiple Closed With Stable Disruption Pelvis Ring Initial ([facility]) #11 Fracture Ilium Closed Initial Left ([facility]) Multiple comminuted fractures of the left anterior [...] concerns please page the Trauma Service at [phone] * Kezia Lopes APRN, C.N.PTarik, D.N.P. - 12/03/2023 7:16 AM CDT Geriatrics Consult - Progress Note SUBJECTIVE Seen this morning. He was sleeping on and off. Per DEPARTMENT HEAD JUNIOR COLLEGE, he ate all his breakfast. He had [...] / PLAN Mr. Grayson is hospitalized on [facility] Trauma for evaluation and management of: Fracture Ilium Closed Initial Left (HCC). 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 Increase mobility to match ability. Frequent reorientation. Provide moderate level of social and cognitive stimulation. Treat dehydration and constipation. Nonpharmacologic sleep promotion strategies. Continue new tamsulosin and finasteride. Continue q4h voiding schedule and encouraging him to sit at the edge of the bed or use commode for urination The above plan of care was discussed with Dr. Green, HIM nursing education consultant. I personally spent a total of 25 minutes providing and coordinating care today. Thank you for the opportunity to care for this patient. We will continue to follow with you. Pleasepage the Geriatrics Consult Service at [phone] with any questions or concerns. * Bella [...] 1900 12/01/23 190 - 12/02/23 0700 12/02/23 0701 - 12/02/23 1900 12/02/23 190 - 12/03/23 [...] please contact the Orthopedic Surgery house resident training and documentation specialist at [phone] * Lalita Bacon, LOC, C.N.P., D.N.P. - 12/02/2023 8:14 PM CDT Images from the original note were not included. SUBJECTIVE I met and examined Mr. Grayson this morning. Mr. Grayson is hospital day 9 for management of his traumatic injuries following a 6 ft fall from a ladder. He was resting in bed with the DEPARTMENT HEAD JUNIOR COLLEGE sitting at bedside. He is alert but [...] CONSULT TO NEUROLOGICAL SURGERY IP CONSULT TO [facility] IP CONSULT TO [facility] IP CONSULT TO PHYSICAL MEDICINE & REHABILITATION IP CONSULT TO NEUROLOGY IP CONSULT TO MANGANESE BREAKER WOUND CARE HUMANITIES IN MEDICINE SERVICES ([facility]) IP CONSULT TO CHEESEMAKER HELPER EXPERIMENTAL MECHANIC ELECTRICAL ASSESSMENT / PLAN Diet: Adult Diet Dysphagia; [...] #9 Fracture Acetabulum Other Closed Initial Left ([facility]) #10 Fracture Pelvis Multiple Closed With Stable Disruption Pelvis Ring Initial ([facility]) #11 Fracture Ilium Closed Initial Left ([facility]) Multiple comminuted fractures of the left anterior [...] concerns please page the Trauma Service at [phone] * Tamia Pedraza, Ph.D., P.T., D.P.T. - [...] D.P.T. * Harmony Kee Ed.D., M.S., O.T., [facility] - 12/02/2023 2:28 PM CDT Occupational Therapy [...] Subarachnoid Hemorrhage With Loss Of Conscious Initial ([facility]) 8. Other Shock (Hemorrhagic Shock) (HCC) 9. [...] Kee Ed.D., M.S., O.T., BCPR * Bereket Bundy R.Ph. - 12/02/2023 1:55 PM CDT Pharmacist [...] Bereket Bundy, R.Ph. * Lizett Ashraf O.T., O.T.D., VINITA - 12/02/2023 12:14 PM CDT 12/02/23 1530 [...] diet textures, as able.) Tamia Ashraf O.T., O.T.D., VINITA * Hayley Durham L.G.S.W., M.S.W. - 12/02/2023 11:32 AM CDT SUBJECTIVE Social Work spoke with BEN Elizabeth at [facility] ([phone]). Social Work communicated with [facility] They will need patient off Safety Plan for 24 hours prior to admission. They also are unable to verify patient's Medicare number. OBJECTIVE Per [facility] Social Work, patient [place] not have [place] short-term rehab or long-term care benefits. He does have [facility] home care benefits. Patient is on Safety Plan. Patient is anticipated to be ready for discharge by 12/02/23. Ref[facility] sent: [facility] (facility full) [facility] (they do not accept for short term rehab) [facility] - SNF ASSESSMENT / PLAN ASSESSMENT Patient's Safety Plan may complicate disposition. PLAN Patient's desires patient discharge to short term rehab as close to [place] as possible. 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 Increase mobility to match ability. Frequent reorientation. Provide moderate level of social and cognitive stimulation. Treat dehydration and constipation. Nonpharmacologic sleep promotion strategies. Continue new tamsulosin and finasteride. Continue q4h voiding schedule and encouraging him to sit at the edge of the bed or use commode for urination The above plan of care was discussed with Dr. Cornelius Green [phone]), HIM nursing education consultant. I personally spent a total of 35 minutes providing and coordinating care today. Thank you for the opportunity to care for this patient. We will continue to follow with you. Pleasepage the Geriatrics Consult Service at [phone] with any questions or concerns. * Mickey [...] 82 I/O last 3 completed shifts: In: 1879 [P.O.:1880] Out: 2375 [Urine:2335; Drains:40] PHYSICAL EXAM [...] (mL) 11/30/23 0701 - 11/30/23 1900 11/30/23 190 - 12/01/23 0700 12/01/23 0701 - 12/01/23 1900 12/01/23 190 - 12/02/23 0005 Closed/Suction Drain 1 Left;Lateral [...] please contact the Orthopedic Surgery house resident training and documentation specialist at [phone] * Landen Quinonez M.D. - 12/01/2023 5:04 PM CDT Patient seen reviewed with the trauma team. He had an episode of unresponsiveness on the commode. Patient was seen after this episode. Physical examination: Blood pressure 112/58, pulse 82, temperature 37 ??C, temperature source Oral, resp. rate 16, gmdbny903.3 cm, weight 93.4 kg, SpO2 94%. Patient [...] medications. * Harmony Kee Ed.D., M.S., O.T., [facility] - 12/01/2023 2:34 PM CDT Occupational Therapy [...] Ed.D., M.S., O.T., BCPR * Michelle Elena, ROXANNEN, LD - 12/01/2023 1:52 PM CDT Clinical [...] pain. Adjusted ONS order per discussion with patient/DEPARTMENT HEAD JUNIOR COLLEGE. DEPARTMENT HEAD JUNIOR COLLEGE reports eating is going well, he just [...] 1404 GI Function: Last BM Date: 12/01/23, Harney Stool Chart: Type 6: Fluffy pieces with [...] Medications: Scheduled Meds:acetaminophen, 650 mg, oral, Q6H mugoggchdeeuu-dccgznnz-hxgqadrfh in Lipoderm, 1 g, topical, TID bisacodyL, [...] kg (11/23/2023) Current Weight: 93.4 kg (11/30/23) Barrett Body Weight (Calculated) : 75.3 kg BMI (Calculated): 28.7 kg/m?? Net IO Since Admission: 5,176.57 mL [12/01/23 1353] Weight history: Wt Readings from Last 12 Encounters: 11/30/23 93.4 kg Weight Change History: No weight change per . No weight history in medical record. Estimated Needs: Total Calorie Needs: 6167-9305 calories/day Method to Estimate Energy Needs: kcal/kg [...] about patient's nutritional care please contact pager [phone] on weekdays 07:30-16:00 or [phone] on weekends/holidays ([facility]). * Maria Del Carmen Diaz, PTarikTYenny - 12/01/2023 1:43 PM CDT Physical Therapy [...] extremity places forward and foot placed on FIELD CARE MANAGER's foot to monitor weight bearing. Unable to [...] Therapeutic functional activity, Neuromuscular re-education, Gait training FIELD CARE MANAGER Visit Trackin Time Spent with Patient Therapeutic Interventions Therapeutic Activity (min): 15 min Therapeutic Exercise (min): 12 min Time Tracking Total Timed Units (min): 27 min Total Treatment Time (min): 27 min Maria Del Carmen Diaz P.TYenny * Kelly Johnson P.A.-C. 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 RECOMMENDATIONS: General delirium prevention/management strategies: Minimize MANGANESE BREAKER-acting medications. Increase mobility to match ability. Frequent [...] care was discussed with Dr. Cornelius Green [phone]), HIM nursing education consultant. I personally spent a total of 50 minutes providing and coordinating care today. Thank you for the opportunity to care for this patient. We will continue to follow with you. Pleasepage the Geriatrics Consult Service at [phone] with any questions or concerns. * Hayley Durham L.G.S.W., M.S.W. - 12/01/2023 10:58 AM CDT SUBJECTIVE Social Work communicated with [facility] and updated them on patient's insurance coverage. Social Work sent fax request to patient's PCP MARCO A Pablo (fax: [phone]) for shortterm rehab referral outside of the [place] system. Social Work communicated with [facility] regarding regional [place] contracted short term rehab facilities. Social Work sent updated insurance information to [facility]. Social Work expanded referrals to include: [facility], [facility], [facility], and [facility] - SNF. OBJECTIVE Patient is anticipated to be ready for discharge by 12/02/23. Referrals sent: [facility] (facility full) [facility] -[facility] (facility full) [facility] (they do not accept for short term rehab) [facility] - SNF ASSESSMENT / PLAN ASSESSMENT Care Management obtained patient's VA number and Medicare number which will assist with accessing short term rehab placement. PLAN Patient's desires patient discharge to short term rehab as close to [place] as possible. Social Work will continue to [...] Initiated chemoprophylactic dose of enoxaparin 30mg BID 2/ acute L- soleal vein DVT - Continue [...] concerns, please page the Trauma Service at [phone]. * Cata Bower O.T., O.TDominic - 12/01/2023 8:39 AM CDT Occupational Therapy [...] Referral: OT dysphagia Onset Date: 11/23/23 Payor: [employer] / Plan: [facility] / Product Type: Indemnity / History [...] of the left acetabulum. Family/Caregiver Present: Yes (DEPARTMENT HEAD JUNIOR COLLEGE) Patient/Caregiver Goals: None stated Patient Comments: Patient [...] was contacted and patient's status was discussed (DEPARTMENT HEAD JUNIOR COLLEGE engaged in therapy session) Patient was left with DEPARTMENT HEAD JUNIOR COLLEGE present at end of session with call light in reach, all needs met and questions answered. Additional Staff Present During Session: DEPARTMENT HEAD JUNIOR COLLEGE Assessment Time Dysphagia Assessment Completed: Clinical Impression/Recommendations: Patient sleeping with DEPARTMENT HEAD JUNIOR COLLEGE present upon OT arrival but patient arousable and pleasant. Patient continues to present with confusion and delirium but was pleasant and appropriate throughout today's session. Assessed safety with oral intake of minced and moist [place] toast, turkey sausage, mixed berries, and thin [...] 7:00am to 4:00pm: Our service pager at [facility]: #[phone] Our service pager at [facility]: #[phone] * Mickey Benton M.D. - 12/01/2023 6:26 [...] to suction Output by Drain (mL) 11/29/23 0701 - 11/29/23 1900 11/29/23 190 - 11/30/23 0711/30/23 0701 - 11/30/23 1900 11/30/23 190 - 12/01/23 0700 12/01/23 0701 - 12/01/23 1045 Closed/Suction Drain 1 Left;Lateral [...] please contact the Orthopedic Surgery house resident training and documentation specialist at [phone] * Ishan Collins, R.RDeepak., L.R.T. - 11/30/2023 7:12 PM CDT 11/30/23 1600 [...] time. Electronically signed by: Ishan Collins R.R.T., L.R.T. 11/30/23 7:13 PM CDT * Hayley Durham L.G.S.W., M.S.W. - 11/30/2023 5:42 PM CDT SUBJECTIVE Social Work spoke to patient's on the telephone. Social Work spoke to Flavia in [place] at [place]. Social Work spoke to [employer] regarding patient's lacking insurance information. Social Work called VA benefits. Social Work communicates with Service regarding contributing factors of current cognitive challenges. Service indicates baseline cognition exacerbated by brain injury and hospital delirium as likely contributing factors. 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 The VA has to approve this senior living care. Patient is on Safety Plan. ASSESSMENT [...] M.S., O.T., BCPR * Mansi Farrell O.T., [facility] - 11/30/2023 8:45 AM CDT Occupational Therapy [...] and patient's status was discussed, Other (comment) (DEPARTMENT HEAD JUNIOR COLLEGE engaged in therapy session) Patient was left in bedside chair at end of session with call light in reach, all needs met and questions answered. Assessment Clinical Impression/Recommendations: Patient was eating breakfast when OT arrived. DEPARTMENT HEAD JUNIOR COLLEGE was present in the room and she [...] 7:00am to 4:00pm: Our service pager at [facility]: #[phone] Our service pager at [facility]: #[phone] * Naveed Dan P.A.-C. - 11/30/2023 8:27 [...] concerns, please page the Trauma Service at [phone]. * Kelly Johnson P.A.-C. - 11/30/2023 7:46 AM CDT Geriatrics Consult - Progress Note SUBJECTIVE Mr. Yliniemi was seen on morning rounds. 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 RECOMMENDATIONS: General delirium prevention/management strategies: Minimize MANGANESE BREAKER-acting medications. Increase mobility to match ability. Frequent [...] care was discussed with Dr. Guru Bill ([phone]), HIM nursing education consultant. I personally spent a total of 35 minutes providing and coordinating care today. Thank you for the opportunity to care for this patient. We will continue to follow with you. Pleasepage the Geriatrics Consult Service at [phone] with any questions or concerns. * Mickey Benton M.D. - 11/30/2023 6:35 AM CDT Orthopedic Service: OTS-1 Hospital Admission Day: 11/23/2023 Length of Stay: 7 Procedures: Surgery Information This Encounter Past Procedures (11/30/2022 to Today) Date Procedures Providers Loc / Dept 11/25/2023 OPEN REDUCTION INTERNAL FIXATION ACETABULUM. Naveed Higuera M.D.Markos, James R, M.D.Labott, Joshua R, M.D.Sherie Lozano M.D. RST ROMB OR Unscheduled Procedures Date [...] - 11/28/23 1900 11/28/23 190 - 11/29/23 0711/29/23 0701 - 11/29/23 1900 11/29/23 190 - 11/30/23 0711/30/23 0701 - 11/30/23 0931 Closed/Suction Drain 1 [...] please contact the Orthopedic Surgery house resident training and documentation specialist at [phone] * Tamia Pedraza, Ph.D., P.T., D.P.T. - [...] move R LE as able. PT and DEPARTMENT HEAD JUNIOR COLLEGE helped support B LE and trunk during [...] Pedraza, Ph.D., P.T., D.P.T. * Hayley Durham L.G.SPeggy., M.S.W. - 11/29/2023 3:22 PM CDT SUBJECTIVE Social Work communicated with patient, Service, and Nursing regarding discharge planning. Social Work attempted to meet with patient's family in his hospital room but they had recently left for the day. Social Work left a message with [facility] office ([phone]) inquiring about patient's VA benefits. OBJECTIVE Patient was in his room with his eyes open. He politely answered Social Work brief questions. He did not know his 's phone number. Patient is anticipated to be medically ready at end of week or weekend. Referrals sent: [facility] [place] ASSESSMENT / PLAN ASSESSMENT It appears application for Medicaid is initiated. Patient's lack of insurance my be a barrier for placement. Patient appears well-supported by and family. PLAN Patient may need to discharge to long-term facility/swing bed. Social Work will continue to talk to patient's . Social Work will continue to follow to provide support. Social Work will continue to assist with discharge needs. Aimee Ahuja, M.S.W. 11/29/23 * Tresa Pizarro O.T., BCPR - 11/29/2023 2:57 PM CDT 11/29/23 1457 Reason Therapy Missed Reason Therapy Missed No visit this date: Checked in with patient's nurse who noted that patient ate well today without signs of aspiration. Will check in tomorrow to determine if a video fluoroscopic swallow study is needed before advancing diet. * Daniela Torres R.N., C.W.C.N. - 11/29/2023 2:45 PM CDT [facility] Wound RN consulted to assess Carlos [...] lying in bed with family at bedside. C RN consulted toassess the wound on the [...] Secondary Dressing Status Dry;Clean;Intact Changed by Wound alignment mechanic Partial head to toe skin assessment completed; [...] nursing. They agree to the plan. The WOC RN will continue to see the patient, contact or reconsult for worsening wounds or new wounds. * Chelly Galvez RDN - 11/29/2023 1:53 PM CDT Clinical [...] to face care. Current Nutrition (since admission): DEPARTMENT HEAD JUNIOR COLLEGE notes that he has eaten everything for [...] Last BM Date: 11/28/23 (per chart review), Harney Stool Chart: Type 6: Fluffy pieces with [...] Medications: Scheduled Meds:acetaminophen, 650 mg, oral, Q6H ebstijellfhjr-uuwtpsff-rrycnflzx in Lipoderm, 1 g, topical, TID bisacodyL, [...] 86.3 kg (11/23/2023) Current Weight: 86.6 kg Barrett Body Weight (Calculated) : 75.3 kg BMI (Calculated): 26.6 kg/m?? Net IO Since Admission: 7,541.57 mL [11/29/23 1353] Weight history: Wt Readings from Last 12 Encounters: 11/24/23 86.6 kg Weight Change History: No weight change per . No weight history in medical record. Estimated Needs: Total Calorie Needs: 6087-7520 calories/day Method to Estimate Energy Needs: kcal/kg [...] about patient's nutritional care please contact pager [phone] on weekdays 07:30-16:00 or [phone] on weekends/holidays ([facility]). * Naveed Dan P.A.-C. - [...] contact the Special Pulmonary Evaluation Laboratory at [phone] with questions regarding this report. Physician: Luis Neely M.D. [id number] Christopher Arciniega M.D. [id number] DX Chest Portable 1 View Result Date: [...] concerns, please page the Trauma Service at [phone]. Associated attestation - Landen Quinonez M.D. - [...] bed with nonviolent restraints in place and DEPARTMENT HEAD JUNIOR COLLEGE was in the room cleaning up. 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 We will continue the current sleep medication plan and taper as able. He was started on tamsulosin for urinary retention. He is still requiring frequent I&O cath. I do wonder if part of this is related to him lying flat in bed and query if encouraging him to get upto the commode would be helpful. RECOMMENDATIONS: General delirium prevention/management strategies: Minimize MANGANESE BREAKER-acting medications. Increase mobility to match ability. Frequent [...] care was discussed with Dr. Guru Bill ([phone]), HIM nursing education consultant. I personally spent a total of 35 minutes providing and coordinating care today. Thank you for the opportunity to care for this patient. We will continue to follow with you. Pleasepage the Geriatrics Consult Service at [phone] with any questions or concerns. * Mickey [...] to suction Output by Drain (mL) 11/27/23 0701 - 11/27/23 1900 11/27/23 190 - 11/28/23 0700 11/28/23 0701 - 11/28/23 1900 11/28/23 190 - 11/29/23 0700 11/29/23 0701 - 11/29/23 0759 Closed/Suction Drain 1 Left;Lateral [...] please contact the Orthopedic Surgery house resident training and documentation specialist at [phone] * Farnaz Reece, C.R.T., L.R.T. - 11/29/2023 1:56 AM CDT 11/28/232 Overnight Oximetry Procedure Overnight Oximetry Set-up Completed Patient placed on Overnight Oximetry at this time. Electronically signed by: Farnaz Reece C.R.T., L.R.T. 11/29/23 1:57 AM CDT * Hayley Durham L.G.S.W., M.S.W. - 11/28/2023 5:30 PM CDT SUBJECTIVE Social Work spoke with Nursing regarding patient's ability to communicate. Social Work met with patient at bedside to discuss discharge needs and provide a supportive visit. Patient was cooperative. His ability to answer Social Work questions appropriately waxed and waned. Patient shared he was in the [place] and sustained hearing loss and is compensated $150/month through the VA. Patient confirms he does not have insurance and states, I do not believe in that stuff. Patient tells Social Work she can help him by making him a small cake. Patient shares he receives something like $195/month for snf. 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 Patient is agreeable to [facility] long-term facility and applying for insurance if helpful to facilitate that. He also talksabout some having house payments so he wouldn't take that. Patient shares, I have been serving the [employer] my whole life. I've been living for the [employer]. He shares that this makes everything better. OBJECTIVE Patient is no longer in restraints. Patient is located on FR. 5C. ASSESSMENT / PLAN ASSESSMENT Social Work talking to patient's about discharge planning is warranted given patient's cognitive state. Patient does not appear to have insurance on file which may complicate discharge to long-term facility. PLAN Social Work will call patient's [...] / PLAN Mr. Grayson is hospitalized on [facility] Trauma for evaluation and management of: Fracture Ilium Closed Initial Left ([facility]) #1 History Of Falling #2 Subarachnoid Hematoma Trauma Without Loss Of Consciousness Subsequent #3 Contusion Scalp Initial #4 Fracture Rib One Open Initial Left #5 Contusion Other Intra Abdominal Organs Initial #6 Anemia Posthemorrhagic Acute (Blood Loss Anemia) #7 Fracture Acetabulum Other Closed Initial Left ([facility]) #8 Fracture Pelvis Multiple Closed With Stable Disruption Pelvis Ring Initial ([facility]) #9 Fracture Ilium Closed Initial Left ([facility]) #10 Encephalopathy Metabolic #11 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 ([facility]) #12 Decline Cognitive #13 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 ([facility]) #14 Delirium #15 Postprocedural Hemorrhagic Shock Initial [...] care was discussed with Dr. Bill, HIM nursing education consultant. I personally spent a total of 35 minutes providing and coordinating care today. Thank you for the opportunity to care for this patient. We will continue to follow with you. Pleasepage the Geriatrics Consult Service at [phone] with any questions or concerns. * Naveed [...] seen this morning in his room with DEPARTMENT HEAD JUNIOR COLLEGE at bedside. Patient is pleasantly alert and [...] concerns, please page the Trauma Service at [phone]. * Mickey Benton M.D. - 11/28/2023 2:52 [...] to suction Output by Drain (mL) 11/26/23 0701 - 11/26/23 1900 11/26/23 1901 - 11/27/23 0700 11/27/23 07 - 11/27/23189911/27/231900 - 11/28/23 0007 Closed/Suction Drain 1 Inferior;Midline [...] please contact the Orthopedic Surgery house resident training and documentation specialist at [phone] * Destiney Bundy M.A., O.T., O.T.D., [facility] - 11/27/2023 12:44 PM CDT 11/27/23 7366 Reason Therapy Missed Reason Therapy Missed No visit this date The patient's RN reported patient had slowed oral management of pills and the DEPARTMENT HEAD JUNIOR COLLEGE reported the patient had retention of food [...] past 24 hours. Last BM Date: 11/26/23 Harney Stool Chart: Type 7: Watery, no solid [...] when asked if we are in a evangelical and yes to hospital). 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 Pleasepage the Geriatrics Consult Service at [phone] with any questions or concerns. * Naveed Dan P.A.-C. - 11/27/2023 8:31 AM CDT Images from the original note were not included. SUBJECTIVE Mr. Grayson was seen and examined by the Trauma team in his room this morning. Patient is pleasantly confused this morning, in restraints with mitts in place. Patient's DEPARTMENT HEAD JUNIOR COLLEGE overnight states that there have been no [...] concerns, please page the Trauma Service at [phone]. * Mickey Benton M.D. - 11/27/2023 6:27 [...] Output by Drain (mL) 11/25/23 07 - 11/25/23 1900 11/25/23 190 - 11/26/23 0700 11/26/23 0701 - 11/26/23 1900 11/26/23 190 - 11/27/23 0700 11/27/23 0701 - 11/27/23 0757 Closed/Suction Drain 1 Inferior;Midline [...] please contact the Orthopedic Surgery house resident training and documentation specialist at [phone] * Rae Coello M.D. - 11/26/2023 12:19 [...] and laying in bed. Last BM Date: (FIELD CARE MANAGER) I have reviewed the current medication list. [...] person but not to place (hotel in [place]) or reason for hospitalization. 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 Pleasepage the Geriatrics Consult Service at [phone] with any questions or concerns. * Naveed [...] % I/O last 3 completed shifts: In: 31704.4 Out: 3846.5 [Urine:1011; Drains:737.5; Blood:2098] Vitals and [...] received: 4u pRBC, 2u FFP, 4u plts / hemorrhagic shock - TEG has since been [...] time. They can be reached at pager #[phone]. For any additional questions or concerns, please page the Trauma Service at [phone]. * Bella Torrez M.D. - 11/26/2023 6:21 AM CDT Orthopedic Service: OTS-1 Hospital Admission Day: 11/23/2023 Length of Stay: 3 Procedures: Surgery Information This Encounter Past Procedures (11/26/2022 to Today) Date Procedures Providers Loc / Dept 11/25/2023 OPEN REDUCTION INTERNAL FIXATION ACETABULUM. Naveed Higuera M.D.Mickey Benton M.D.Labott, Joshua R, M.D.Blake, Sherie Cagle M.D. RST ROMB OR SUBJECTIVE Mr. Grayson was examined in his room this AM prior to transport to CT. His pain is well-controlled. He demonstrates an [...] 76 I/O last 3 completed shifts: In: 36980.9 Out: 3709 [Urine:981; Drains:630; Blood:2098] PHYSICAL EXAM [...] by Drain (mL) 11/24/23 07 - 11/24/23 19011/24/23 190 - 11/25/23 0700 11/25/23 07 - 11/25/23 1900 11/25/23 190 - 11/26/23 0621 Closed/Suction Drain 1 Inferior;Midline [...] please contact the Orthopedic Surgery house resident training and documentation specialist at [phone] * Carlyn Rivas M.B.B.S. - 11/26/2023 4:43 [...] massive transfusion protocol was activated and he tynabwxe5Q pRBC + 2U FFP + 2U Platelets. [...] SBP: 100-150s; MAP: >70 - lactate: 1.6 (6/) - ECHO: none on file - EKG: [...] our team's plan of care. * Naveed Dan P.A.-C. - 11/25/2023 4:25 PM CDT SUBJECTIVE Mr. [...] % I/O last 3 completed shifts: In: 24899 Out: 3988 [Urine:1690; Drains:200; Blood:2098] Vitals and [...] time. They can be reached at pager #[phone]. For any additional questions or concerns, please page the Trauma Service at [phone]. Associated attestation - Lenora Johnson M.D. - 11/27/2023 1:36 AM CDT I saw and evaluated the patient, participating in the ashraf portions of the service. I reviewed Mr. Dan's note. I agree with his findings and plan. [facility] TRAUMA INSTALL AND REPAIR TECHNICIAN NOTE SUBJECTIVE Mr. Grayson is an 83 [...] the patient continues to be stable. * Serfain Ford M.D. - 11/25/2023 3:51 PM CDT [...] - 11/25/23 0700 11/25/23 07 - 11/25/23 1426 Requested LDAs do [...] please contact the Orthopedic Surgery house resident training and documentation specialist at [phone] Nura Benton M.D. (PGY-3) * Zia Lundberg [...] Dosing Protocols and Consultations: None Emily Lundberg, Pharm.D., R.Ph. Pager [phone] * Barry Fitzpatrick, PPerez.-Barbara., M.S. - 11/25/2023 7:59 AM CDT Geriatrics [...] hospitalized on [facility] Trauma and General Surgery for evaluation and management of: Fracture Ilium Closed Initial Left (HCC) #1 History Of Falling #2 Subarachnoid Hematoma Trauma Without Loss Of Consciousness Subsequent #3 Contusion Scalp Initial #4 Fracture Rib One Open Initial Left #5 Contusion Other Intra Abdominal Organs Initial #6 Anemia Posthemorrhagic Acute (Blood Loss Anemia) #7 Fracture Acetabulum Other Closed Initial Left ([facility]) #8 Fracture Pelvis Multiple Closed With Stable Disruption Pelvis Ring Initial ([facility]) #9 Fracture Ilium Closed Initial Left ([facility]) #10 Encephalopathy Metabolic #11 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 ([facility]) What Matters Most to Mr. Grayson: Personal interests/hobbies: Fixing things Relationships/supports: in evangelical Mentation: Baseline cognition: Independent of ADLs and [...] issues: BPH, cataracts, glaucoma Anticipated disposition plan: Jail Facility RECOMMENDATIONS: 1. Initiate ramelteon and suvorexant [...] care was discussed with Dr. Rae Coello ([phone]), HIM nursing education consultant. I personally spent a total 25 minutes in counseling and coordination of care as documented above. Thank you for the opportunity to care for this patient. We will continue to follow with you. Pleasepage the Geriatrics Consult Service at [phone]. * Carlyn Rivas M.B.B.S. - 11/25/2023 5:08 [...] on SICU while assessing. * Alyson Bueno L.G.S.W., M.S.W. - 11/24/2023 2:38 PM CDT SUBJECTIVE [...] work will provide support as appropriate Aimee cOhoa, M.S.W. 11/24/23 * Rafal Scott P.A.-C. - [...] Findings discussed with Bereket Snider M.D. (pager #[phone]) on 11/23/2023 at 1:[address] Abdomen [...] Mechanism of Injury: Fall from ladder, between 6-10' Diet: Adult Diet Clear Liquid Activity: bedrest [...] time. They can be reached at pager #[phone]. For any additional questions or concerns, please page the Trauma Service at [phone]. * Dorian Ferrara M.D., Ph.D. - 11/24/2023 [...] starting QTP and will allow some PRNs (NV route as spitting out meds) CV: VSS [...] Pharmacy Specific Dosing Protocols and Consultations: None Emilywang Lundberg Pharm.D., R.Ph. Pager [phone] * Francisco Staley M.D. - 11/24/2023 6:35 [...] dementia, thus non- operative management. Admitted to [facility] ICU given other injuries (acetabular and gluteal [...] to name and year; reports being in [facility] grossly intact. EOMI. Normal V1-V3 sensation. [...] cares per ICU team Chief C service, [phone] Montez Tellez M.D., Ph.D. * Shay Lee [...] Barron MDIV - 11/23/2023 2:00 PM CDT [facility] Spiritual Care Progress Note Patient: Carlos Alberto Grayson Age:83 y.o. Location: [id number] Reason(s) for encounter: Spiritual Care contact to introduce spiritual care service and assess for potential spiritual care needs. Summary: I was able to meet with Carlos Alberto Grayson and his for prayer. I provided a brief prayer. His said their environmental programs manager and environmental programs manager's are also here and that they have [...] current medical condition and life stage. Facilitated rastafari/spiritual practices (prayer, blessing, sacred texts, rastafari item) with theaim to reinforce patient's spiritual [...] requested. Chaplains can be contacted by paging [phone] ([place]) or [phone] (Hindu). * Eunice Huston L.I.Barbara.S.Josephine., M.S.W. - 11/23/2023 1:13 PM CDT SUBJECTIVE Emergency Department social media marketing specialist is present at the R1 resuscitation bay in the context of an Adult Level Red Trauma activation. Per EMS: Patient fell at home. EMS reports patient's will be coming from home. EMS reports patient's expresses concern patient may be showing signs of Dementia. EMS reports patient is alertand oriented to himself, which reportedly says is his baseline currently. OBJECTIVE Emergency Department social media marketing specialist presents to the resuscitation bay in the context of an Adult Level Red Trauma. Patient was brought by [place] ground ambulance. Checked in with the treatment team regarding this patient. ASSESSMENT / PLAN ASSESSMENT Patient appears to be awake and alert. Patient is currently protecting their own airway. A full psychosocial assessment was not completed due to the nature of the medical evaluation. PLAN Please contact social work should any needs arise. Waqar Álvarez., M.S.WTarik 11/23/2023 documented in this encounter H&P Notes [...] physician. Previously he was seen [facility] the [facility], but it has been a number ofyears. [...] CODE STATUS: - Full code - Surrogate: Jeralbine DISPOSITION: - SICU Associated attestation - Jason [...] deterioration of the following conditions: shock trauma MANGANESE BREAKER failure or compromise hemorrhage Critical care was [...] 1:30 PM CDTAssociated Order(s): IP CONSULT TO CHEESEMAKER HELPER EXPERIMENTAL MECHANIC ELECTRICAL [facility] Spiritual Care Consult Note Patient: Carlos Alberto Grayson Age:83 y.o. [id number] Reason(s) for encounter: Responded to Spiritual Care Consult. Summary: I was able to meet with Carlos Alberto Grayson and prayed with him today. He also prayed for his leg. Spiritual Care Plan / Recommendations: Will remain available for spiritual care as needed or requested. Chaplains can be contacted by paging [phone] ([place]) or [phone] (Hindu). * Isa Cedillo - 12/01/2023 9:12 PM CDTAssociated Order(s): IP CONSULT TO CHEESEMAKER HELPER EXPERIMENTAL MECHANIC ELECTRICAL [facility] Spiritual Care Consult Note Patient: Carlos Alberto Grayson Age:83 y.o. Location: [id number] Reason(s) for encounter: Responded to Spiritual Care [...] requested. Chaplains can be contacted by paging [phone] ([place]) or [phone] (Hindu). * Josef Peraza M.D., M.E. - 11/29/2023 12:28 PM CDTAssociated Order(s): IP CONSULT TO NEUROLOGY NEUROLOGY CONSULT NOTE SUBJECTIVE Reason for consult: Recommendations regarding serial punctate hemorrhage increase Primary Team: RST TCGS Trauma Neurology Supervising Matchbook Assembler: Dr. Ramez Vazquez HISTORY OF PRESENT ILLNESS: [...] CAA. Patient seen and discussed with our nursing education consultant Dr. Ramez Vazquez. We appreciate the consult. Please page [phone] with any questions regarding our recommendations. Josef [...] deer hunting. Prior Mobility/Functional Transfers Level of [place]: Independent Home Living Type of Home: House [...] Drew P.T., D.P.T. * Rebecca Diana O.T., O.T.DTarik - 11/26/2023 1:31 PM CDT Occupational Therapy Acute Hospital Inpatient Evaluation/Treatment SUBJECTIVE Referring/Attending Provider: Jason Navarrete M.D. Patient's Name: Carlos Alberto Grayson Medical Diagnosis: 1. Fracture Ilium Closed Initial Left (HCC) 2. History Of Falling 3. Retroperitoneal Hematoma 4. Fracture Acetabulum Closed Initial Left (HCC) 5. Contusion Buttock Initial 6. Anemia 7. Subarachnoid Hemorrhage With Loss Of Conscious Initial ([facility]) 8. Other Shock (Hemorrhagic Shock) ([facility]) 9. Fracture Pelvis Multiple Closed With Stable [...] Retired Leisure Interests: Pt reports he enjoys [employer] hunting. Prior Mobility/Functional Transfers Level of [place]: Independent Home Living Type of Home: House [...] Diana O.T., O.T.Demetrius * Destiney Bundy M.A., O.TTarik, O.T.DTarik, [facility] - 11/26/2023 12:12 PM CDT Occupational Therapy [...] for Dysphagia, referred by Charlotte Ordaz APRN, C.NKerrie, [place]. Onset Date: 11/23/23 Payor: / PERTINENT MEDICAL [...] at end of session with RN and DEPARTMENT HEAD JUNIOR COLLEGE present, needs met and questions answered. Assessment [...] 7:00am to 4:00pm: Our service pager at [facility]: #[phone] Our service pager at [facility]: #[phone] * Alyson Bueno L.G.S.W., M.S.W. 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 Patient is currently on [facility] Trauma Critical Care and General Surgery service on MB 7B for fracture ilium closed initial left. Social History Early Growth and Development: The patient met social and developmental milestones as expected. Citizenship: [place] 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 Ramon expressed understanding and was agreeable to the visit. For the purpose of this assessment, Ramon appears to be a reliable historian. Ramon shares they heard the patient calling for help and witnessed them laying on the ground next to their large ladder. Patient claims they were not climbing on the ladder. Patient is currently on [facility] Trauma Critical Care and General Surgery service [...] alcohol use, or drug use. Patient enjoys Episcopalian music and the Bible. Ramon shares from previous RN experience working a memory care, the patient's memory issues have declined over the past several months. Ramon expressed concerns the patient may have stage 2 or 3 dementia at this time and would like [place] to provide a formal dementia diagnosis. Social work discussed the importance of utilizing primary care for a dementia diagnosis- Ramon shares she has attempted several times and the patient will call and cancel each appointment however the [place] PCP will call Ramon and express concerns [...] provide support as appropriate Aimee Ochoa, M.S.W. 11/25/2023 * Major Romero M.D. - 11/24/2023 4:14 PM CDTAssociated Order(s): Physical Medicine and Rehabilitation consult (hospital) SUBJECTIVE REASON FOR CONSULT Physical Medicine and Rehabilitation consult (hospital) Referring Provider: Hilda Carranza APRN, C.N.P., M.S.N. Reason for Consult: New TBI HISTORY OF PRESENT ILLNESS Mr. 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 He lives with his in a [facility]; she is a retired nurse. He [...] consciousness. He was emergently brought to the [facility] where he had a trauma evaluation. 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 Grayson is an 83-year-old [...] help him using the computer, logging into Facebook, e-mail and he often forgets why he [...] Factors associated with hospitalization: Sleep: abnormal Tubes/lines: NATALIE and Ashlee Current diet order: No diet orders on [...] PLAN Mr. Grayson is hospitalized on T [facility] Trauma and General Surgery for evaluation and [...] Grayson: Personal interests/hobbies: Fixing things Relationships/supports: in evangelical Mentation: Baseline cognition: Independent of ADLs and [...] issues: BPH, cataracts, glaucoma Anticipated disposition plan: Jail Facility RECOMMENDATIONS: 1. Initiate ramelteon and suvorexant [...] care was discussed with Dr. Rae Coello [id number]), HIM nursing education consultant. I personally spent a total 80 minutes in counseling and coordination of care as documented above. Thank you for the opportunity to care for this patient. We will continue to follow with you. Pleasepage the Geriatrics Consult Service at [phone]. * Umm Schmidt M.D. - 11/23/2023 7:15 [...] 6 ft ladder Anticoagulation Status: None Supervising nursing education consultant: Dr. Johnson, [facility] trauma nursing education consultant. PREHOSPITAL INFORMATION Time of injury: 1115 [...] & Screen Expiration 11/26/2023 23:59 Testing Location [place] Troponin T, Baseline with 2 Hour/6 Hour [...] Findings discussed with Bereket Snider M.D. (pager #[phone]) on 11/23/2023 at 1:[address] Abdomen [...] 83 y.o. male who presents to the [facility] Trauma Resuscitation [place] status post fall from a ladder. Patient [...] was seen and examined with Dr. Jasso, [facility] trauma nursing education consultant, who was in agreement with the above plan and assessment. Please page the trauma service at [phone] with any questions or concerns. Edmar Love M.D., Ph.D. General Surgery 11/23/23 2:54 PM CDT Associated attestation - Lenora Johnson M.D. - 11/23/2023 9:01 PM CDT I saw and evaluated the patient, participating in the ashraf portions of the service. I reviewed Dr. Love's note. I agree with his findings and plan. TCGS INSTALL AND REPAIR TECHNICIAN NOTE SUBJECTIVE Mr. Grayson is an 83-year-old male patient who fell off a 6 ft ladder at approximately 11:15 a.m..The patient's spouse found the patient lying down calling out for help. Notably, the patient's spouse reports a suspicion that the patient has been demonstrating some signs of dementia recently. The patient had signs of injury to his left mormonism and complained of severe left hip pain. [...] The patient will be admitted to the 7 Trauma ICU. My colleague, Dr. Jason Navarrete has been made aware. We will obtain tertiary trauma survey tomorrow or when otherwise appropriate. We will appreciatethe recommendations of our Geriatric Medicine colleagues. Will follow up on the recommendations of our OTS colleagues and repeat evaluation by Neurosurgery after tomorrow's head CT. * Toni Vazquez M.D. - 11/23/2023 2:32 PM CDTAssociated Order(s): Orthopedic Surgery consult ([facility]) ORTHOPEDIC SURGERY CONSULT NOTE Today's date: 11/23/2023 Referring Provider - Orthopedic Surgery consult ([facility]) Referring Provider: Bereket Snider M.D. - Emergency department, resuscitation [place] Chief Complaint -or- Reason for Consult Left [...] a level red 3 to the resuscitation [place] in the [facility] Emergency Department. Orthopedic surgery was consulted [...] evaluated the patient expeditiously in the resuscitation [place] after being made aware of his acetabular [...] fracture. This is nicely documented by my TCGS colleagues. Pertinent Hx: Pre-injury Ambulation Level: Highly active, without aid Previous gait aids: No Last meal (Solids / Liquids): 2 days prior, he is fasting as he is developed rastafari man Anticoagulation: No Diabetes: No Tobacco use: [...] Findings discussed with Bereket Snider M.D. (pager #[phone]) on 11/23/2023 at 1:[address] Abdomen [...] above-noted acetabular fracture. . ASSESSMENT / PLAN [facility] C05 -- Carlos Alberto Grayson ([phone]) [phone] [...] candidate for embolization. Recommended admission to the TC Service, in either the general care floor [...] his acetabular fracture - Hospital admission to [facility] - standard preoperative labs and evaluation - we will need surgical clearance either by the ICU or HIM This is a josé miguel resident note that will be staffed within 24 hours. Please refer to the supervisory note of the OTS Chief Resident training and documentation specialist for final recommendations. Please contact OTS-1 (Kalen) at [phone] with any questions or concerns regarding this patient. If outside of 06:00 - 18:00 on weekdays or any time on the weekend, please contact the [facility] Orthopedic Surgery house resident training and documentation specialist at [phone] (This note was created with the use of Fluency Direct voice recognition software. While this note [...] no known medical history who presents to [facility] via EMS followinga suspected fall from [...] GCS: 14 (E4 V4 M6) - General: [place], alert, supine in bed; at bedside, C [...] touch throughout - Coordination: No dysmetria on mcpqly-in-qitm testing. Results from last 7 days Lab [...] report he is currently fasting due to rastafari reasons and unsure if that can be related to the incident today. She noted a left scalp hematoma and he endorsed pain to his left hip and was unable to get up so she called for EMS. He was brought to the [facility] ED as a level red trauma. [...] been discussed with the chief neurosurgery resident training and documentation specialist, Dr. Schmidt. Please look to her forthcoming supervisory note in the next 12-24 hours. For any questions or concerns regardingthe neurosurgical plan of care for this patient, please page the Neurosurgery Chief C Service Pager, [phone]. Times: Consult placed: 13:26 (while in scanner) Patient seen: 14:05 (upon immediate return from scanner) Staffed with chief resident: 14:25 --- Neisha Waldrop APRN, C.NLeon., M.S.N. documented in this encounter Nursing Notes [...] was able to get outside with the DEPARTMENT HEAD JUNIOR COL[employer]GE. Patient remained safe during this shift. Problem: [...] has been awake for much of the molder hand. Pleasantly confused. Last evening mentioned seeing 2 frogs in his room (actually trash on his floor and an electrical box on the wall) but no other hallucinations present since. Drain and vac DC'd by sx last evening. Continues to require I&O cathing. Pleasant and cooperative. * Rogelio Arriola R.N. - 12/04/2023 8:05 AM CDT Complaint Manager was paged for staff assist in pt [...] found comfort reading the Bible with the DEPARTMENT HEAD JUNIOR [employer]LEGE. Pain waswell controlled with sched medications. Pt [...] as unable to void. Messaging service to [place] non-violent restraint order as he has not been restrained since 11/27 0700. * Nancy Layne R.R.T. - 11/27/2023 10:40 AM CDT Patient is [...] 11/27/23 10:40 AM CDT * Rommel Huber R.RVidhya, L.R.T. - 11/27/2023 6:06 AM CDT Patient [...] Right Radial (Active) Placement Date/Time: 11/25/23 (c) 08 Procedural Pause Completed: Yes Catheter Time Out Checklist Completed: Yes Hand Hygiene Performed Prior to Insertion: Yes Site Prep: Chlorhexidine (Preferred) Sterile Barriers Used : Cap;Gloves;Gown;Large d... Recent ABG: Recent Labs 11/26/23 1728 PO2 ART 77 L PCO2 ART 36 PH ART 7.47 H HCO3 ART 26 BASE EXC ART 2 Jorje Huber R.R.T., SybilRTarikTTarik 11/27/23 6:06 AM CDT * Nancy Layne [...] 23 BASE EXC ART -1 Nancy Layne R.R.T. 11/26/23 1:24 PM CDT * Kandy Mann L.R.T., CAR WASH ATTENDANT-ACCS - 11/25/2023 5:24 PM CDT Patient is a 83 y.o. male admitted on 11/23/2023 Principal Problem: Fracture Ilium Closed Initial Left (HCC) Shift Summary/Plan of Care: Pt rested during shift on nasal cannula, no acute respiratory concerns at this time. Oxygen Therapy: $Delivery Method: Nasal cannula Flow Rate (L/min): 2 L/min Hemodynamic monitoring: Arterial Line 11/25/23 Right Radial (Active) Placement Date/Time: 11/25/23 (c) 0812 Procedural Pause Completed: Yes Catheter Time Out Checklist Completed: Yes Hand Hygiene Performed Prior to Insertion: Yes Site Prep: Chlorhexidine (Preferred) Sterile Barriers Used : Cap;Gloves;Gown;Large d... Recent ABG: Recent Labs 11/25/23 1331 PO2 ART 162 H PCO2 ART 42 PH ART 7.32 L HCO3 ART 22 BASE EXC ART -4 L Lawrence Hurtado, CAR WASH ATTENDANT-ACCS 11/25/23 5:24 PM CDT * Umm Carbone [...] the last 24 hours. * Bereket Pike R.RVidhya, L.R.T. - 11/24/2023 6:12 PM CDT Patient [...] discontinued in phase 3. Bereket Pike R.R.T., L.RVidhya 11/23/23 6:27 PM CDT * Bereket Pike R.R.T., L.RTarikT. - 11/23/2023 6:25 PM CDT Patient is [...] bearing. Please contact OTS 1 team at [phone] with any questions regarding the Orthopedic management [...] Diagnosis Fracture Acetabulum Closed Initial Left (HCC) Core Cutter A first aid officer actively participated and was necessary for one [...] one tineon the posterior column and another pk over the pelvic rim on the anterior [...] intervention. The patient was admitted to the [facility] ICU for further evaluation and treatment. ED Course as of 11/23/23 1637 TueNov 23, 2023 1329 I have personally interpreted today's portable pelvis [...] radiology embolization. Will plan to admit to [address] [place] [address] on trauma surgery team. Final Diagnoses: as of 11/23/23 1637 History Of Falling Retroperitoneal Hematoma Fracture Ilium Closed Initial Left (HCC) Fracture Acetabulum Closed Initial Left (HCC) Contusion Buttock Initial Anemia Subarachnoid Hemorrhage With Loss Of Conscious Initial (HCC) Other Shock (Hemorrhagic Shock) (HCC) Carol Miller M.D. 11/23/23 1641 * Christopher Cornell M.D. - 11/23/2023 1:14 PM CDT Care for this patient was transferred to de at shift change. Please see associated documentation [...] Traction pin on the floor 1546 Obtaining [facility] pelvis xrays prior to transport to [facility] ICU Final Diagnoses: as of 11/23/23 1546 History Of Falling Retroperitoneal Hematoma Fracture Ilium Closed Initial Left (HCC) Fracture Acetabulum Closed Initial Left (HCC) Contusion Buttock Initial Anemia Subarachnoid Hemorrhage With Loss Of Conscious Initial (HCC) Other Shock (Hemorrhagic Shock) ([facility]) Christopher Cornell M.D. Resident 11/23/23 1546 * [...] presumed acetabular fracture. ED Course as of 11/23/231706Nov 23, 2023 1329 Radiology called to report layering acute blood products in the left lateral ventricle, neurosurgery contacted prior to handoff to the 2nd provider. Final Diagnoses: as of 11/23/231706 History Of Falling Retroperitoneal Hematoma Fracture Ilium Closed Initial Left (HCC) Fracture Acetabulum Closed Initial Left (HCC) Contusion Buttock Initial Anemia Subarachnoid Hemorrhage With Loss Of Conscious Initial (HCC) Other Shock (Hemorrhagic Shock) ([facility]) Bereket Snider M.D. Resident 11/23/23 1708 documented in this encounter Miscellaneous Notes * Hospital Course - Rody Arriaga APRN, C.N.P., D.N.P. - 11/23/2023 5:56 PM CDT [...] PM CDT Clinical Communication Virtual Review in [address] [phone] 12/28/2023 7:45 AM CDT Appointment Department of Radiology, [facility] in [address] [phone] Sera Avila P.A.-C., M.S. [address] [place] [phone] 12/28/2023 8:15 AM CDT Appointment Department of Radiology, [facility] in [address] [address] Vanessa Curiel APRN, MYLA, D.N.P., M.S.N. [address] [place] [phone] 12/28/2023 2:00 PM CDT Office Visit Department of Neurologic Surgery in [address] [phone] Harmony Lomas APRN, C.N.P., M.S.N. [address] [place] [phone] 01/05/2024 9:45 AM CDT Office Visit Department of Orthopedic Surgery in [place], [place] [address] [place] [address] Rodrigo Leiva M.D. [address] [place] [address] Pending Results Name Type Priority Associated Diagnoses [...] Incentive Spirometry - RT/RN Respiratory Care Routine [id number] (omit [id number]) until discontinued starting 11/23/2023 PEP Therapy Respiratory [...] Acetabulum Closed Initial Left (HCC) Special Needs Supine.Art.com pelvis set.Shanz pins. PATIENT STATUS Timed 11/25/2023 [...] Basic Metabolic Panel (12/06/2023 9:06 PM CDT) Pathologist [facility] Potassium, S 4.5 3.6 - 5.2 mmol/L [...] Mancilla APRN, C.N.P., D.N.P. LAB BLOOD ADD-ON [facility] [address] [place] [address], [facility] [place]note 2[facility] [address] [place] [address] * DX Chest Portable 1 View (12/06/2023 [...] Basic Metabolic Panel (12/05/2023 8:57 PM CDT) Potassium, S 4.9 3.6 - 5.2 mmol/L [...] CDT 12/05/2023 9:27 PM CDT Lalita Bacon APRN, C.N.P., D.N.P. LAB B LOOD ADD-ON [facility] [address] [place] [address], [facility] [place]note 2] [address] [place] [address] * (ABNORMAL) CBC without Differential (12/05/2023 8:57 PM CDT) Pathologist [facility] Hemoglobin 10.4(L) 13.2 - 16.6 g/dL 12/05/2023 [...] APRN, C.N.P., D.N.P. LAB B LOOD ADD-ON [facility] [address] [place] [address], [facility] [place]note 2] [address] [place] [address] * US Lower Extremity Veins Bilateral (12/05/2023 [...] and management can be found on the Dropbox site. Link [email or web address]/topic/clinical-answers/[email or web address]/[email or web address] 40756 Procedure Note Barry Bennett M.D., M.S. - [...] thrombosis and management can be found on theDropbox site. [email or web address].[email or web address]/topic/clinical-answers/cnt-92876408/[facility] -2049 9614 IMPRESSION: Unchanged acute DVT in the left soleal vein and in a small adjacent venousbranch. Barbara Salamanca APRN.N.P., D.N.P. IMG U S PROCEDURES * DX [...] fractures. Left pelvicsurgical drain.. Lalita Bacon APRN, Barbara.N.P., D.N.P. IMG D IAGNOSTIC IMAGING PROCEDURES * [...] No definite pneumothorax. Aortic calcification. Lalita Bacon APRN C.N.P., D.N.P. IMG D IAGNOSTIC IMAGING PROCEDURES [...] CDT 12/02/2023 9:19 PM CDT Lalita Bacon APRN C.N.P., D.N.P. LAB B LOOD ADD-ON [facility] [address] [place] [address], [facility] DTL [facility] [address] [place] [address] * (ABNORMAL) CBC with Differential, Blood (12/02/2023 8:42 PM CDT) [facility] Hemoglobin 10.6(L) 13.2 - 16.6 g/dL 12/02/2023 [...] - 6.45 x10(9)/L 12/02/2023 10:11 PM CDT [facility] Comment:Rechecked Lymphocytes 0.90(L) 0.95 - 3.07 x10(9)/L 12/02/2023 10:11 PM CDT DTL Monocytes 1.01(H) 0.26 - 0.81 x10(9)/L 12/02/2023 10:11 PM CDT DTL Eosinophils <0.03 0.03 - 0.48 x10(9)/L 12/02/2023 10:11 PM CDT DTL Basophils <0.03 0.01 - 0.08 x10(9)/L 12/02/2023 10:11 PM CDT DTL Blood (Blood, Venous) 12/02/2023 8:42 PM CDT 12/02/2023 9:09 PM CDT Barbara Salamanca APRN.N.P., RembertoP. LAB B LOOD ADD-ON [facility] [address] [place] [address], [place] DTL [facility] [address] [place] [address] DHPM [facility] [address] [place] [address] * DX Abdomen 1 View (12/02/2023 5:41 [...] Anatomical Region Laterality Modality Head, Neuroradiology RST [facility] , Neuroradiology [facility], Neuroradiology FLA [facility] N/A Computed Tomography, Compute d Tomography 12/01/2023 [...] arthritis in the spine. Naveed Dan P.A.-C. [facility] DIAGNOSTIC IMAGING PROCEDURES * (ABNORMAL) Basic Metabolic [...] LAB BLOOD ADD- ON Performing Organization Address [facility]/ZIP Co de Phone Number [facility] [address] [place] [address], [facility] [place]note 2] [address] [place] [address] * (ABNORMAL) CBC without Differential (12/01/2023 7:09 [...] LAB BLOOD ADD- ON Performing Organization Address City/[facility]/ZIP Co de Phone Number [facility] [address] [place] [address], [place] DTL [facility] [address] [place] [address] * DX Abdomen 1 View (11/30/2023 5:45 [...] Anatomical Region Laterality Modality Head, Neuroradiology RST [facility] , Neuroradiology ARZ [facility] Neuroradiology FLA [facility] N/A Computed Tomography, Compute [...] lateralventricle. No new hemorrhage. Naveed Dan P.A.-C. IMG CT PROCEDU RES * (ABNORMAL) Basic Metabolic Panel (11/29/2023 9:20 PM CDT) [facility] Potassium, S 4.7 3.6 - 5.2 mmol/L [...] Naveed Dan P.A.-C. LAB BLOOD ADD- ON [facility] [address] [place] [address], [facility] [place]note 2] [address] [place] [address] * (ABNORMAL) CBC without Differential (11/29/2023 9:20 PM CDT) Hemoglobin 10.4(L) 13.2 - 16.6 g/dL 11/29/2023 [...] Naveed Dan P.A.-C. LAB BLOOD ADD- ON [facility] [address] [place] [address], [facility] [address] [place] [address] * DX Abdomen Portable Anterior Posterior 1 [...] Overnight (11/29/2023 7:52 AM CDT) 11/28/2023 Impressions [place] [facility] - 11/29/2023 1:47 PM CDT Overnight [...] current supplemental oxygen. Physician: Hema Owens M.D. [id number] Narrative Procedure Note Hema Owens M.D. - [...] thecurrent supplemental oxygen. Physician: Hema Owens M.D. [id number] Josee Rose M.D. [facility] ORDERAB LES MAHAMED MULLIGAN EAP * CT Head without IV Contrast [...] Naveed Dan P.A.-C. LAB BLOOD ADD- ON [facility] [address] [place] [address], [facility] [place] 2[facility] [address] [place] [address] * (ABNORMAL) CBC without Differential (11/29/2023 7:01 AM CDT) Hemoglobin 10.7(L) 13.2 - 16.6 g/dL 11/29/2023 [...] Naveed Dan P.A.-C. LAB BLOOD ADD- ON [facility] [address] [place] [address], [facility] DTL [facility] [address] [place] [address] * DX Chest Portable 1 View (11/29/2023 [...] CDT Barb Davies M.D. LAB BLOOD TROPONIN [facility] [address] [place] [address] * Phosphorus Inorganic (11/28/2023 9:01 PM CDT) Phosphorus (Inorganic), S 2.5 2.5 - 4.5 mg/dL 11/28/2023 10:02 PM CDT DTL Blood (Blood, Venous) 11/28/2023 9:01 PM CDT 11/28/2023 9:49 PM CDT Barb Davies M.D. LAB BLOOD ADD-ON Performing Organization Address City/[facility]/ZIP Co de Phone Number [facility] [address] [place], [place] [address] [place] [address] [address] [place] [address] * Magnesium (11/28/2023 9:01 PM CDT) Magnesium, S 2.1 1.7 - 2.3 mg/dL 11/28/2023 10:02 PM CDT DTL Blood (Blood, Venous) 11/28/2023 9:01 PM CDT 11/28/2023 9:49 PM CDT Barb Davies M.D. LAB BLOOD ADD-ON [facility] [address] [place] [id number] [address] [place] [address] * (ABNORMAL) Basic Metabolic Panel (11/28/2023 9:01 [...] CDT Barb Davies M.D. LAB BLOOD ADD-ON [facility] [address] [place] [address], [facility] [address] [place] [address] * (ABNORMAL) Troponin T, Baseline with 2 Hour/6 Hour Reflex Biomarker Panel (11/28/2023 9:01 PM CDT) Troponin T, Baseline, 5th gen 31(H) <=15 ng/L 11/28/2023 9:26 PM CDT [facility] Blood (Blood, Venous) 11/28/2023 9:01 PM CDT 11/28/2023 9:06 PM CDT Barb Davies M.D. LAB BLOOD TROPONIN Performing Organization Address City/[facility]/ZIP Co de Phone Number [facility] [address] [place] [address], [facility] [address] [place] [address] * ECG 12 Lead (11/28/2023 8:57 PM CDT) Ventricular Rate ECG/Min 88 BPM MUSE NV Interval 136 ms MUSE QRSD Interval 86 ms MUSE QT Interval 384 ms MUSE QTC Interval 464 ms MUSE P [place] 33 degrees MUSE R [place] 7 degrees MUSE T Wave [place] 10 degrees MUSE 11/28/2023 8:57 PM CDT [...] Davies M.D. ECG ORDERABLES Performing Organization Address City/[facility]/ZIP Co de Phone Number MUSE NA * US Lower Extremity Veins [...] and management can be found on the Dropbox site. Link [email or web address]/[email or web address]/clinical-answers/[email or web address]/[email or web address] 48251 Findings discussed via telephone with Naveed Dan PA-C ([id number]) at 15:44 on 11/28/2023. Procedure Note Delbert [...] thrombosis and management can be found on theAskJohnshout Brothers Platform site. [email or web address] [email or web address] [email or web address].[facility]/topic/clinical-answers/cnt-36156536/cpm -2049 1725 Findings discussed via telephone with Naveed Dan PA-C ([id number]) at15:44 on 11/28/2023. IMPRESSION: Positive for acute DVT in the left lower extremity involving the solealvein. Naveed Dan P.A.-C. IMG US PROCEDU RES * (ABNORMAL) Basic Metabolic Panel (11/28/2023 7:41 AM CDT) [facility] Potassium, S 3.9 3.6 - 5.2 mmol/L [...] 7:41 AM CDT 11/28/2023 8:29 AM CDT aNveed Dan P.A.-C. LAB BLOOD ADD- ON Performing Organization Address City/[facility] Co de Phone Number [facility] [address] [place] [address], [facility] [address] [address] * (ABNORMAL) CBC without Differential (11/28/2023 7:41 AM CDT) Pathologist [facility] [place] Hemoglobin 10.2(L) 13.2 - 16.6 g/dL 11/28/2023 [...] Naveed Dan P.A.-C. LAB BLOOD ADD- ON [facility] [address] [place] [address], [facility] [address] [place] [address] * ECG 12 Lead (11/28/2023 4:04 AM CDT) Pathologist [facility] [place] Ventricular Rate ECG/Min 59 BPM MUSE NV Interval 126 ms MUSE QRSD Interval 88 ms MUSE QT Interval 436 ms MUSE QTC Interval 431 ms MUSE P [place] 46 degrees MUSE R [place] 45 degrees MUSE T Wave [place] 23 degrees MUSE 11/28/2023 4:04 AM CDT [...] Rose M.D. ECG ORDERABLES Performing Organization Address [facility] Co de Phone Number MUSE NA * Phosphorus Inorganic (11/27/2023 6:37 PM CDT) Phosphorus (Inorganic), S 2.8 2.5 - 4.5 mg/dL 11/27/2023 7:49 PM CDT DTL Blood (Blood, Venous) 11/27/2023 6:37 PM CDT 11/27/2023 7:19 PM CDT Serafin Ford M.D. LAB BLOOD ADD-ON Performing Organization Address City/[facility]/ZIP Co de Phone Number [facility] [address] [place] [address], [facility] DTL [facility] [address] [place] [address] * (ABNORMAL) Basic Metabolic Panel (11/27/2023 6:37 PM CDT) Potassium, P 3.9 3.6 - 5.2 mmol/L [...] CDT Serafin Ford M.D. LAB BLOOD ADD-ON [facility] [address] [place] [address], [facility] [address] [place] [address] * DX Chest Portable 1 View (11/27/2023 [...] changes of the spine. Serafin Ford M.D. [facility] DIAGNOSTIC IMAGI NG PROCEDURES * DX Abdomen [...] left pelvis.Left pelvic soft tissue drainage catheter. Sreafin Ford M.D. [facility] DIAGNOSTIC IMAGI NG PROCEDURES * CT Head [...] CDT Serafin Ford M.D. LAB BLOOD ADD-ON [facility] [address] [place] [address], [place] [facility] [place]note 2[facility] [address] [place] [address] * (ABNORMAL) Calcium, Ionized (11/27/2023 6:13 AM CDT) [facility] Calcium, Ionized, S 4.41(L) 4.57 - 5.43 mg/dL 11/27/2023 7:12 AM CDT DTL Comment: ----ADDITIONAL INFORMATION---- This test has been modified from the silk top hat body maker's instructions. Its performance characteristics were determined by [facility] in a manner consistent with CLIA requirements. This test has not been cleared or approved by the U.S. Food and Drug Administration. pH for Ionized Calcium 7.46 7.35 - 7.48 11/27/2023 7:12 AM CDT DTL Blood (Blood, Venous) 11/27/2023 6:13 AM CDT 11/27/2023 6:53 AM CDT Charlotte Ordaz APRN C.N.P., D.N.P. LAB BLOOD NON ADD-ON [address] [address], [address] [address] * (ABNORMAL) CBC without Differential (11/27/2023 6:13 AM CDT) [facility] Hemoglobin 10.5(L) 13.2 - 16.6 g/dL 11/27/2023 [...] CDT Serafin Ford M.D. LAB BLOOD ADD-ON [facility] [address] [place] [address], [facility] DTL [facility] [address] [place] [address] * (ABNORMAL) Basic Metabolic Panel (11/27/2023 6:13 AM CDT) Potassium, S 4.4 3.6 - [...] M.D. LAB BLOOD ADD-ON Performing Organization Address City/[facility]/ZIP Co de Phone Number [facility] [address] [place] [address] * (ABNORMAL) Magnesium (11/27/2023 6:13 AM CDT) Magnesium, S 2.4(H) 1.7 - 2.3 mg/dL 11/27/2023 7:14 AM CDT DTL Blood (Blood, Venous) 11/27/2023 6:13 AM CDT 11/27/2023 6:53 AM CDT Serafin Ford M.D. LAB BLOOD ADD-ON Performing Organization Address City/[facility] Co de Phone Number [facility] [address] [place], [place] [address] [place] [address] 200 [place] [address] * (ABNORMAL) Phosphorus Inorganic (11/27/2023 6:13 AM CDT) Phosphorus (Inorganic), S 1.4(L) 2.5 - 4.5 mg/dL 11/27/2023 7:14 AM CDT DTL Blood (Blood, Venous) 11/27/2023 6:13 AM CDT 11/27/2023 6:53 AM CDT Serafin Ford M.D. LAB BLOOD ADD-ON Performing Organization Address City/[facility]/ZIP Co de Phone Number [facility] [address] [place], [place] [address] [place] [address] 200 [place] [address] * (ABNORMAL) Basic Metabolic Panel (11/26/2023 5:29 [...] Ordaz APRN, C.N.P., D.N.P. LAB BLOOD ADD-ON [facility] [address] [place] [address], [facility] [address] [place] [address] * Patient Status (11/26/2023 5:28 PM CDT) O2 Flow 6.0 L/min 11/26/2023 5:32 PM CDT STMA Device NC 11/26/2023 5:32 PM CDT STMA Spont. breaths/min 18 11/26/2023 5:32 PM CDT STMA Blood 11/26/2023 5:28 PM CDT 11/26/2023 5:32 PM CDT Barbara Pelayo APRN.N.P., D.N.P. LAB BLOOD NON ADD-ON [facility] [address] [place] [address], [facility] STMA [facility] [address] [place] [address] * (ABNORMAL) Blood Gas with Coox, Arterial (11/26/2023 5:28 PM CDT) [facility] Signature pO2 77(L) 83 - 108 mm Hg [...] Pelayo APRN.N.P., D.N.P. LAB BLOOD NON ADD-ON [facility] [address] [place] [address], [place] [facility] [address] [place] [address] * DX Chest Portable 1 View (11/26/2023 [...] 1 VIEW Procedure Note Roel Guillen M.B.B.S., M.D. - 11/26/2023 EXAM: DX CHEST PORTABLE 1 VIEW IMPRESSION: Since November 25, 2023, increased bibasilar airspace opacities. In conjunctionwith the similarly decreased lung volumes this is favored to representworsening atelectasis. Cannot rule out an infectious/inflammatoryetiology. Small bilateral pleural effusions. Otherwise no significant changes. The heart borders areobscured. Scattered degenerative changes of the skeleton. Charlotte Ordaz APRN, C.N.P., D.N.P. IMG DIAGNOSTIC IMAGING PROCEDURES * [...] M.D. LAB BLOOD ADD-ON Performing Organization Address City/[facility]/ZIP Co de Phone Number [facility] [address] [place] [address] * pH (11/26/2023 11:21 AM CDT) Pathologist [facility] [place] pH 7.45 7.35 - 7.45 pH 11/26/2023 11:27 AM CDT STMA Blood 11/26/2023 11:2 1 AM CDT 11/26/2023 11:26 AM CDT Charlotte Ordaz APRN, C.N.P., D.N.P. LAB HISTORICAL ORDERS [facility] [address] [place] [address] * (ABNORMAL) Calcium, Ionized (11/26/2023 11:21 AM CDT) Calcium, Ionized, B 4.56(L) 4.65 - 5.30 mg/dL 11/26/2023 11:29 AM CDT STMA Blood (Blood, Venous) 11/26/2023 11:21 AM CDT 11/26/2023 11:26 AM CDT rTacy Pelayo APRNN.P., D.N.P. LAB BLOOD NON ADD-ON Performing Organization Address City/[facility] Co de Phone Number [facility] [address] [place] [address], [facility] STMA [facility] [address] [place] [address] * ECG 12 Lead (11/26/2023 8:06 AM CDT) Ventricular Rate ECG/Min 79 BPM MUSE NV Interval 134 ms MUSE QRSD Interval 94 ms MUSE QT Interval 380 ms MUSE QTC Interval 435 ms MUSE P [place] 37 degrees MUSE R [place] 15 degrees MUSE T Wave [place] 18 degrees MUSE 11/26/2023 8:06 AM CDT [...] change was found Reviewed by ANTONIETA Owens Charlotte Ordaz APRN, TracyN.P., D.N.P. ECG ORDERABLES Performing Organization Address City/[facility] Co de Phone Number MUSE NA * Patient Status (11/26/2023 7:49 AM CDT) O2 Flow 2.0 L/min 11/26/2023 7:52 AM CDT STMA Device NC 11/26/2023 7:52 AM CDT STMA Spont. breaths/min 22 11/26/2023 7:52 AM CDT STMA Blood 11/26/2023 7:49 AM CDT 11/26/2023 7:52 AM CDT Shay Lee M.D. LAB BLOOD NON ADD-ON [facility] [address] [place] [address], [facility] STMA [facility] [address] [place] [address] * (ABNORMAL) Blood Gas with Coox, Arterial [...] Shay Lee M.D. [place] [address] * (ABNORMAL) Magnesium (11/26/2023 7:48 AM CDT) Magnesium, S 1.6(L) 1.7 - 2.3 mg/dL 11/26/2023 11:13 AM CDT DTL Blood (Blood, Venous) 11/26/2023 7:48 AM CDT 11/26/2023 8:20 AM CDT Shay Lee M.D. LAB BLOOD ADD-ON Performing Organization Address City/[facility] [place] [address] * (ABNORMAL) CK (Creatine Kinase) (11/26/2023 7:48 AM CDT) Creatine Kinase (CK), S 1733(H) 39 - 308 U/L 11/26/2023 11:13 AM CDT DTL Blood (Blood, Venous) 11/26/2023 7:48 AM CDT 11/26/2023 8:20 AM CDT Tracy Yancey APRNN.P., M.S.N. JOHANNA Cota BLOOD ADD-ON Performing Organization Address City/[facility]/[place] [address] * (ABNORMAL) Basic Metabolic Panel (11/26/2023 7:48 [...] AM CDT 11/26/2023 8:20 AM CDT Hilda Carranza APRN, C.N.P., M.S.N. LA B BLOOD ADD-ON [facility] [address] [place] [address], [facility] [place]note 2] [address] [place] [address] * (ABNORMAL) CBC without Differential (11/26/2023 7:48 [...] AM CDT 11/26/2023 8:11 AM CDT Hilda Carranza APRN, C.N.P., M.S.N. LA B BLOOD ADD-ON [facility] 200 [place] [address], [facility] [place]note 2] [address] [place] [address] * Thromboelastograph, Kaolin, Blood (11/26/2023 7:45 AM [...] 7:50 AM CDT Charlotte Ordaz APRN, C.N.P., DemetriusNTarikP. LAB BLOOD NON ADD-ON [facility] [address] [place] [address], [facility] [address] [place] [address] * Transfuse Fresh Frozen Plasma :Bleeding with altered coagulation; 180 mL/hr (11/26/2023 7:09 AM CDT) Carlyn LeónB.S. BLOOD TRANSFUSION O RDERABLES * Transfuse Fresh Frozen Plasma :Bleeding with altered coagulation; 180 mL/hr, 2 Units (11/26/2023 7:09 AM CDT) Carlyn ReynosoB.B.S. BLOOD TRANSFUSION O RDERABLES * CT Abdomen [...] blood products inthe peritoneum and retroperitoneum. Shay RANDHAWA CT PROCEDURES * CT Head without IV Contrast (11/26/2023 6:14 AM CDT) Anatomical Region Laterality Modality Head, Neuroradiology RST LOS , Neuroradiology ARZ LOS, Neuroradiology FLA LOS N/A Computed Tomography, Compute d Tomography 11/26/2023 [...] decreased intraventricular hemorrhage in the left lateralventricle. Hilda Carranza APRN, C.N.P., M.S.N. IM G CT PROCEDURES * Transfuse Fresh Frozen Plasma :Bleeding with altered coagulation; 180 mL/hr (11/26/2023 3:46 AM CDT) Carlyn Perez.B.B.S. BLOOD TRANSFUSION O RDERABLES * Transfuse Platelets :Other (Specify):; MTP; 180 mL/hr; No Special Requirements (11/26/2023 2:01 AM CDT) Carlyn Rivas M.B.B.S. BLOOD TRANSFUSION O RDERABLES * Transfuse Platelets :Other (Specify):; MTP; 180 mL/hr; No Special Requirements, 2 Units (42:01 AM CDT) Carlyn Rivas M.B.B.S. BLOOD TRANSFUSION O RDERABLES * Transfuse Platelets :Other (Specify):; MTP; 180 mL/hr; No Special Requirements (11/26/2023 12:26 AMCDT) Carlyn Rivas M.B.B.S. BLOOD TRANSFUSION O RDERABLES * (ABNORMAL) CBC without Differential (11/25/2023 11:29 PM CDT) [facility] Hemoglobin 11.6(L) 13.2 - 16.6 g/dL 11/25/2023 [...] - 317 x10(9)/L 11/26/2023 1:03 AM CDT [facility] Comment:Results confirmed by smear, no clumping or interference seen. Leukocytes 8.6 3.4 - 9.6 x10(9)/L 11/26/2023 1:03 AM CDT STMA Blood (Blood, Venous) 11/25/2023 11:29 PM CDT 11/25/2023 11:33 PM CDT Shay Lee M.D. LAB BLOOD ADD-ON [facility] [address] [place] [address], [facility] [address] [place], [place] [address] [place] [address] [address] [place] [address] * Transfuse Emergency Released Red Blood Cells [...] Shay Lee M.D. LAB BLOOD NON ADD-ON [facility] [address] [place] [address], [facility] [address] [place] [address] * (ABNORMAL) Blood Gas with Coox, Arterial [...] Site Art Line 11/25/2023 10:01 PM CDT STMA Comment:Maximilian's test not don e. Blood (Blood, Arterial) 11/25/2023 9:58 PM CDT 11/25/2023 10:01 PM CDT Shay Lee M.D. LAB BLOOD NON ADD-ON [facility] [address] [place] [address], [facility] [address] [place] [address] * Transfuse Emergency Released Red Blood Cells (Uncrossmatched) (11/25/2023 9:51 PM CDT) Shay Lee M.D. BLOOD TRANSFUSION OR DERABLES * Transfuse Emergency Released Red Blood Cells (Uncrossmatched) (11/25/2023 9:44 PM CDT) Shay Lee M.D. BLOOD TRANSFUSION OR DERABLES * Lactate (11/25/2023 9:05 PM CDT) Pathologist [facility] Lactate, P 1.6 0.5 - 2.2 mmol/L 11/25/2023 9:23 PM CDT STMA Blood (Blood, Venous) 11/25/2023 9:05 PM CDT 11/25/2023 9:11 PM CDT Shay Lee M.D. LAB BLOOD NON ADD-ON [facility] [address] [place] [address], [facility] STMA [address] [address] * (ABNORMAL) Basic Metabolic Panel (11/25/2023 9:05 PM CDT) Pathologist [facility] Potassium, P 4.2 3.6 - 5.2 mmol/L [...] M.D. LAB BLOOD ADD-ON Performing Organization Address City/[facility]/ZIP Co de Phone Number [facility] [address] [place] [address], [facility] STMA [facility] [address] [place] [address] * (ABNORMAL) CBC without Differential (11/25/2023 9:05 [...] CDT Shay Lee M.D. LAB BLOOD ADD-ON [facility] [address] [place] [address], [facility] STMA [facility] [address] [place] [address] * (ABNORMAL) Thromboelastograph, Kaolin, Blood (11/25/2023 9:04 [...] Shay Lee M.D. LAB BLOOD NON ADD-ON [facility] [address] [place] [address], [facility] [address] [place] [address] * (ABNORMAL) Troponin T, 2 Hour with 6 Hour Reflex, 5th Gen (11/25/2023 5:38 PM CDT) [facility] Troponin T, 2 hr, 5th gen 32(H) <=15 ng/L 11/25/2023 6:28 PM CDT STMA 2H Delta 0 ng/L 11/25/2023 6:28 PM CDT STMA Comment:6 hour collection no t indicated. 2H Delta Interp Not Changing 11/25/2023 6:28 PM CDT STMA Blood 11/25/2023 5:38 PM CDT 11/25/2023 6:00 PM CDT Tracy Pelayo APRNNLeon., DemetriusNTarikP. LAB BLOOD TROPONIN Performing Organization Address City/[facility]/ZIP Co de Phone Number [facility] [address] [place] [address] * (ABNORMAL) pH (11/25/2023 3:32 PM CDT) pH 7.32(L) 7.35 - 7.45 pH 11/25/2023 3:41 PM CDT STMA Blood 11/25/2023 3:32 PM CDT 11/25/2023 3:37 PM CDT Serafin Ford M.D. LAB HISTORICAL ORDER S Performing Organization Address [facility]/ZIP Co de Phone Number [facility] [address] [place] [address] * (ABNORMAL) Calcium, Ionized (11/25/2023 3:32 PM CDT) Calcium, Ionized, B 4.60(L) 4.65 - 5.30 mg/dL 11/25/2023 3:41 PM CDT STMA Blood (Blood, Venous) 11/25/2023 3:32 PM CDT 11/25/2023 3:37 PM CDT Serafin Ford M.D. LAB BLOOD NON ADD-ON Performing Organization Address City/[facility]/ZIP Co de Phone Number [facility] [address] [place] [address] * Phosphorus Inorganic (11/25/2023 3:31 PM CDT) Phosphorus (Inorganic), S 3.8 2.5 - 4.5 mg/dL 11/25/2023 4:29 PM CDT DTL Blood (Blood, Venous) 11/25/2023 3:31 PM CDT 11/25/2023 4:12 PM CDT Serafin Ford M.D. LAB BLOOD ADD-ON [facility] [address] [place] [address] * Magnesium (11/25/2023 3:31 PM CDT) Magnesium, S 2.1 1.7 - 2.3 mg/dL 11/25/2023 4:29 PM CDT DTL Blood (Blood, Venous) 11/25/2023 3:31 PM CDT 11/25/2023 4:12 PM CDT Serafin Ford M.D. LAB BLOOD ADD-ON [facility] [address] [place] [address] * (ABNORMAL) Troponin T, Baseline with 2 Hour/6 Hour Reflex Biomarker Panel (11/25/2023 3:30 PM CDT) Troponin T, Baseline, 5th gen 32(H) <=15 ng/L 11/25/2023 4:05 PM CDT STMA Blood (Blood, Venous) 11/25/2023 3:30 PM CDT 11/25/2023 3:37 PM CDT Charlotte Ordaz APRN, C.N.P., D.N.P. LAB BLOOD TROPONIN [facility] [address] STMA [facility] [address] [place] [address] * (ABNORMAL) CBC without Differential (11/25/2023 3:30 PM CDT) Hemoglobin 9.3(L) 13.2 - 16.6 g/dL 11/25/2023 [...] CDT Serafin Ford M.D. LAB BLOOD ADD-ON [address] [address], [facility] STMA [facility] [address] [place] [address] * (ABNORMAL) Basic Metabolic Panel (11/25/2023 3:30 [...] CDT Serafin Ford M.D. [place] [address], [place] [address] * ECG 12 Lead (11/25/2023 3:16 PM CDT) Ventricular Rate ECG/Min 80 BPM MUSE NV Interval 124 ms MUSE QRSD Interval 86 ms MUSE QT Interval 400 ms MUSE QTC Interval 461 ms MUSE P [place] 48 degrees MUSE R [place] 27 degrees MUSE T Wave [place] 31 degrees MUSE 11/25/2023 3:16 PM CDT [...] present Reviewed by ANTONIETA Calloway Charlotte Ordaz APRN, C.N.P., D.N.P. ECG ORDERABLES Performing Organization Address [facility] Co de Phone Number MUSE NA * [...] M.D. IMG FLUOROSCOPY PROCEDURES Performing Organization Address [facility] de Phone Number 152 HOS LOS RST [...] evidence of failure. Pelvic surgical drain. Francisco HUBERG DIAGNOSTIC IMAGING PROCEDURES * Transfuse autologous RBC (Cell Salvage) : (11/25/2023 1:41 PM CDT) Ale Tatum M.D. BLOOD TRANSFUSION OR DERABLES * Patient Status (11/25/2023 1:31 PM CDT) Temperature 35.7 37.0 deg C 11/25/2023 1:31 PM CDT STMA FIO2 0.50 0.21=AIR 11/25/2023 1:31 PM CDT [facility] Blood 11/25/2023 1:31 PM CDT 11/25/2023 1:31 PM CDT Paolo Beth M.D. LAB BLOOD NON ADD -ON Performing Organization Address City/[facility]/ZIP Co de Phone Number [facility] [address] [place] [address] * (ABNORMAL) Glucose, Whole Blood (11/25/2023 1:31 PM CDT) Pathologist [facility] Glucose 165(H) 70 - 140 mg/dL 11/25/2023 1:33 PM CDT STMA Blood (Blood, Arterial Line) 11/25/2023 1:31 PM CDT 11/25/2023 1:31 PM CDT Ale Tatum M.D. LAB BLOOD ADD-ON [facility] [address] [place], [place] [address] [place] [address] 200 [place] [address] * Potassium, Blood (11/25/2023 1:31 PM CDT) Potassium, B 3.7 3.6 - 5.2 mmol/L 11/25/2023 1:34 PM CDT [facility] Blood (Blood, Arterial Line) 11/25/2023 1:31 PM CDT 11/25/2023 1:31 PM CDT Ale Tatum M.D. LAB BLOOD NON ADD-ON [facility] [address] [place], [place] [address] [place] [address] [address] [place] [address] * Sodium, B (11/25/2023 1:31 PM CDT) Pathologist [facility] Sodium, B 141 135 - 145 mmol/L 11/25/2023 1:33 PM CDT [facility] Blood (Blood, Arterial Line) 11/25/2023 1:31 PM CDT 11/25/2023 1:31 PM CDT Ale Tatum M.D. LAB BLOOD NON ADD-ON Performing Organization Address City/[facility] Co de Phone Number [facility] [address] [place], [place] [address] [place] [address] [address] [place] [address] * (ABNORMAL) Calcium, Ionized (11/25/2023 1:31 PM CDT) [facility] Calcium, Ionized, B 4.34(L) 4.65 - 5.30 mg/dL 11/25/2023 1:34 PM CDT [facility] Blood (Blood, Arterial Line) 11/25/2023 1:31 PM CDT 11/25/2023 1:31 PM CDT Ale Tatum M.D. LAB BLOOD NON ADD-ON [facility] [address] [place] [address] * (ABNORMAL) Blood Gas with Coox, Arterial (11/25/2023 1:31 PM CDT) Pathologist [facility] pO2 162(H) 83 - 108 mm Hg [...] Ale Tatum M.D. LAB BLOOD NON ADD-ON [facility] [address] [place] [address], [facility] [address] [place] [address] * Transfuse autologous RBC (Cell Salvage) : (11/25/2023 12:34 PM CDT) Ale Tatum M.D. BLOOD TRANSFUSION OR DERABLES * (ABNORMAL) Hemoglobin, Whole Blood (11/25/2023 12:13 PM CDT) Hemoglobin, B 8.1(L) 13.2 - 16.6 g/dL 11/25/2023 12:14 PM CDT [facility] Blood (Blood, Arterial Line) 11/25/2023 12:13 PM CDT 11/25/2023 12:13 PM CDT Gogo Chavez APRN, CRNA LAB BLOOD NON A DD-ON [facility] [address] [place] [address], [facility] [address] [place] [address] * Transfuse Red Blood Cells : (11/25/2023 11:50 AM CDT) Ale Tatum M.D. BLOOD TRANSFUSION OR DERABLES * Lactate, B - Intra-op (11/25/2023 11:09 AM CDT) Lactate, B 1.1 0.5 - 2.2 mmol/L 11/25/2023 11:11 AM CDT [facility] Blood (Blood, Venous) 11/25/2023 11:09 AM CDT 11/25/2023 11:09 AM CDT Ale Tatum M.D. LAB BLOOD NON ADD-ON Performing Organization Address City/[facility]/ZIP Co de Phone Number [facility] [address] [place] [address], [facility] [address] [place] [address] * (ABNORMAL) Glucose, Whole Blood (11/25/2023 11:09 AM CDT) Glucose 143(H) 70 - 140 mg/dL 11/25/2023 11:11 AM CDT [facility] Blood (Blood, Arterial Line) 11/25/2023 11:09 AM CDT 11/25/2023 11:09 AM CDT Ale Tatum M.D. LAB BLOOD ADD-ON [facility] [address] [place] [address], [facility] [address] [place] [address] * (ABNORMAL) Potassium, Blood (11/25/2023 11:09 AM CDT) Potassium, B 3.5(L) 3.6 - 5.2 mmol/L 11/25/2023 11:12 AM CDT [facility] Blood (Blood, Arterial Line) 11/25/2023 11:09 AM CDT 11/25/2023 11:09 AM CDT Ale Tatum M.D. LAB BLOOD NON ADD-ON [facility] [address] [place], [place] [id number] [place] [address] [address] [place] [address] * Sodium, B (11/25/2023 11:09 AM CDT) Sodium, B 139 135 - 145 mmol/L 11/25/2023 11:11 AM CDT [facility] Blood (Blood, Arterial Line) 11/25/2023 11:09 AM CDT 11/25/2023 11:09 AM CDT Ale Tatum M.D. LAB BLOOD NON ADD-ON Performing Organization Address City/[facility]/ZIP Co de Phone Number [facility] [address] [place] [address], [facility] [address] [place] [address] * Calcium, Ionized (11/25/2023 11:09 AM CDT) Calcium, Ionized, B 4.84 4.65 - 5.30 mg/dL 11/25/2023 11:12 AM CDT [facility]MA Blood (Blood, Arterial Line) 11/25/2023 11:09 AM CDT 11/25/2023 11:09 AM CDT Ale Tatum M.D. LAB BLOOD NON ADD-ON [facility] [address] [place] [address], [facility] [address] [place] [address] * (ABNORMAL) Blood Gas with Coox, Arterial [...] Ale Tatum M.D. LAB BLOOD NON ADD-ON [facility] [address] [place] [address], [facility] [address] [place] [address] * Transfuse Red Blood Cells : (11/25/2023 [...] LAB BLOOD NON ADD-ON Performing Organization Address City/[facility]/ZIP Co de Phone Number [facility] [address] [place] [address], [facility] [address] [place] [address] * Glucose, Whole Blood (11/25/2023 9:22 AM CDT) Pathologist [facility] [place] Glucose 112 70 - 140 mg/dL 11/25/2023 9:24 AM CDT [facility] [[email or web address] Blood (Blood, Arterial Line) 11/25/2023 9:22 AM CDT 11/25/2023 9:22 AM CDT Ale Tatum M.D. LAB BLOOD ADD-ON [facility] [address] [place] [address], [place] [facility] 200 [place] [address] * (ABNORMAL) Potassium, Blood (11/25/2023 9:22 AM CDT) Potassium, B 3.4(L) 3.6 - 5.2 mmol/L 11/25/2023 9:25 AM CDT STMA Blood (Blood, Arterial Line) 11/25/2023 9:22 AM CDT 11/25/2023 9:22 AM CDT Ale Tatum M.D. LAB BLOOD NON ADD-ON [facility] [address] 200 [place] [address] * Sodium, B (11/25/2023 9:22 AM CDT) Sodium, B 141 135 - 145 mmol/L 11/25/2023 9:24 AM CDT STMA Blood (Blood, Arterial Line) 11/25/2023 9:22 AM CDT 11/25/2023 9:22 AM CDT Ale Tatum M.D. LAB BLOOD NON ADD-ON [facility] 200 [place], [place] [id number] [place] [address] 200 [place] [address] * (ABNORMAL) Calcium, Ionized (11/25/2023 9:22 AM CDT) Calcium, Ionized, B 4.40(L) 4.65 - 5.30 mg/dL 11/25/2023 9:25 AM CDT [facility] [[email or web address] Blood (Blood, Arterial Line) 11/25/2023 9:22 AM CDT 11/25/2023 9:22 AM CDT Ale Tatum M.D. LAB BLOOD NON ADD-ON [facility] [address] 200 [place] [address] * (ABNORMAL) Blood Gas with Coox, Arterial [...] Ale Tatum M.D. LAB BLOOD NON ADD-ON [facility] [address] [place] [address], [facility] [address] [place] [address] * Patient Status (11/25/2023 7:08 AM CDT) O2 Flow 3.0 L/min 11/25/2023 7:11 AM CDT STMA Device NC 11/25/2023 7:11 AM CDT STMA Spont. breaths/min 18 11/25/2023 7:11 AM CDT [facility] Blood 11/25/2023 7:08 AM CDT 11/25/2023 7:11 AM CDT Hilda Carranza APRN, C.N.P., M.S.NTarik LA B BLOOD NON ADD-ON [facility] [address] [place] [address], [facility] STMA [facility] [address] [place] [address] * (ABNORMAL) Blood Gas with Coox, Venous [...] 7:11 AM CDT Hilda Carranza APRN C.N.P., M.S.NTraik HERNANDEZ BLOOD NON ADD-ON [facility] [address] STMA [facility] 200 [place] [address] * (ABNORMAL) CK (Creatine Kinase) (11/25/2023 6:15 AM CDT) Creatine Kinase (CK), S 3100(H) 39 - 308 U/L 11/25/2023 9:15 AM CDT DTL Blood (Blood, Venous) 11/25/2023 6:15 AM CDT 11/25/2023 7:01 AM CDT Hilda Carranza APRN, C.N.P., M.S.NTarik HERNANDEZ BLOOD ADD-ON Performing Organization Address City/[facility]/ZIP Co de Phone Number [facility] [address] [place] [address] * (ABNORMAL) Phosphorus Inorganic (11/25/2023 6:15 AM CDT) Phosphorus (Inorganic), S 2.2(L) 2.5 - 4.5 mg/dL 11/25/2023 9:15 AM CDT DTL Blood (Blood, Venous) 11/25/2023 6:15 AM CDT 11/25/2023 7:01 AM CDT Hilda Carranza APRN, C.N.P., M.S.NTarik HERNANDEZ BLOOD ADD-ON [facility] [address] 200 [place] [address] * Magnesium (11/25/2023 6:15 AM CDT) Magnesium, S 2.2 1.7 - 2.3 mg/dL 11/25/2023 9:15 AM CDT DTL Blood (Blood, Venous) 11/25/2023 6:15 AM CDT 11/25/2023 7:01 AM CDT Hilda Carranza APRN C.N.P., M.S.N. JOHANNA Cota BLOOD ADD-ON [facility] [address] [place] [address], [facility] [place]note 2] [address] [place] [address] * (ABNORMAL) Basic Metabolic Panel (11/25/2023 6:15 [...] Carranza APRN, C.N.P., M.S.NTarik HERNANDEZ BLOOD ADD-ON [facility] [address] [place] [address], [facility] DTL [facility] [address] [place] [address] * (ABNORMAL) CBC without Differential (11/25/2023 6:15 AM CDT) Pathologist [facility] Hemoglobin 8.4(L) 13.2 - 16.6 g/dL 11/25/2023 [...] - 9.6 x10(9)/L 11/25/2023 6:51 AM CDT DHPM Blood (Blood, Venous) 11/25/2023 6:15 AM CDT 11/25/2023 6:42 AM CDT Hilda Carranza APRN, C.N.P., M.S.NTarik HERNANDEZ BLOOD ADD-ON [facility] [address] [place] [address], [facility] DHPM [facility] [address] [place] [address] * DX Chest Portable 1 View (11/25/2023 [...] rib fracture not well seenradiographically. Remainder negative. Hilda Carranza APRN, C.N.P., M.S.N. IM G DIAGNOSTIC IMAGING PROCEDURES * ECG 12 Lead (11/25/2023 5:33 AM CDT) Ventricular Rate ECG/Min 74 BPM MUSE NV Interval 142 ms MUSE QRSD Interval 90 ms MUSE QT Interval 414 ms MUSE QTC Interval 459 ms MUSE P [place] 39 degrees MUSE R [place] 12 degrees MUSE T Wave [place] 30 degrees MUSE 11/25/2023 5:33 AM CDT [...] 11/24/2023 2:51 PM CDT Hilda Carranza APRN, C.N.P., M.S.N. LA B BLOOD ADD-ON Performing Organization Address City/[facility]/ZIP Co de Phone Number [facility] [address] [place] [address], [facility] STMA [facility] [address] [place] [address] * (ABNORMAL) Microscopic Manual (11/24/2023 9:58 AM [...] D.N.P. LAB URINE ORDERABLES Performing Organization Address [facility] Co de Phone Number [facility] [address] [facility] [place][note 2] 200 [place] [address] * (ABNORMAL) Dipstick, Urine (11/24/2023 9:58 AM [...] D.N.P. LAB URINE ORDERABLES Performing Organization Address [facility] Co de Phone Number [facility] [address] [place] [address], [facility] 200 [place] [address] * pH, Urine (11/24/2023 9:58 AM CDT) pH, U 5.1 4.5 - 8.0 11/24/2023 11: 48 AM CDT DTL Urine 11/24/2023 9:58 AM CDT 11/24/2023 10:39 AM CDT Tracy Montes APRNN.P., D.N.P. LAB URINE ORDERABLES [facility] [address] [place], [place] [id number] [place] [address] 200 [place] [address] * Osmolality, Urine (11/24/2023 9:58 AM CDT) Pathologist [facility] Osmolality, U 901 150 - 1150 mOsm/kg 11/24/2023 11:48 AM CDT DTL Urine 11/24/2023 9:58 AM CDT 11/24/2023 10:39 AM CDT Barbara Montes APRN.N.P., D.N.P. LAB URINE ORDERABLES [facility] [address] [place], [place] [phone] [place] [address] 200 [place] [address] * (ABNORMAL) Urinalysis, with Microscopic: Urine, Catheter [...] D.N.P. LAB URINE ORDERABLES Performing Organization Address [facility] Co de Phone Number [facility] [address] DTL [facility] 200 [place] [address] * Patient Status (11/24/2023 9:26 AM CDT) FIO2 0.21 0.21=AIR 11/24/2023 9:33 AM CDT STMA Spont. breaths/min 22 11/24/2023 9:33 AM CDT STMA Blood 11/24/2023 9:26 AM CDT 11/24/2023 9:33 AM CDT Hilda Carranza APRN, C.N.P., M.S.N. LA B BLOOD NON ADD-ON [facility] [address] [place], [place] [phone] [place] [address] STMA [facility] 200 [place] [address] * (ABNORMAL) Blood Gas with Coox, Venous [...] 9:26 AM CDT 11/24/2023 9:33 AM CDT Hilda Carranza APRN C.N.P., M.S.N. LA B BLOOD NON ADD-ON [facility] 200 [place] [address], [facility] [address] [place] [address] * Lactate (11/24/2023 9:26 AM CDT) Lactate, P 1.7 0.5 - 2.2 mmol/L 11/24/2023 9:46 AM CDT STMA Blood (Blood, Venous) 11/24/2023 9:26 AM CDT 11/24/2023 9:33 AM CDT Tracy Montes APRNNKerrie, DemetriusNTarikP. LAB BLOOD NON ADD-ON Performing Organization Address [facility]/ZIP Co de Phone Number [facility] [address] [place] [address] * (ABNORMAL) CK (Creatine Kinase) (11/24/2023 9:26 AM CDT) [facility] Creatine Kinase (CK), S 2304(H) 39 - 308 U/L 11/24/2023 10:53 AM CDT DTL Blood (Blood, Venous) 11/24/2023 9:26 AM CDT 11/24/2023 10:04 AM CDT Sheldon Choi P.A.-C. LAB BLOOD A DD-ON Performing Organization Address [facility] de Phone Number [facility] [address] [place] [address] * (ABNORMAL) CBC without Differential (11/24/2023 9:26 AM CDT) [facility] Hemoglobin 8.8(L) 13.2 - 16.6 g/dL 11/24/2023 [...] Sheldon Choi P.A.-C. LAB BLOOD A DD-ON [facility] [address] [place] [address], [facility] DTL [facility] [address] [place] [address] * (ABNORMAL) Basic Metabolic Panel (11/24/2023 9:26 AM CDT) Potassium, S 4.1 3.6 - [...] LAB BLOOD A DD-ON Performing Organization Address [facility] Co de Phone Number [facility] [address] [place] [address], [facility] DTL [facility] [address] [place] [address] * ECG 12 Lead (11/24/2023 9:13 AM CDT) Ventricular Rate ECG/Min 132 BPM MUSE NV Interval 130 ms MUSE QRSD Interval 88 ms MUSE QT Interval 330 ms MUSE QTC Interval 488 ms MUSE P [place] 3 degrees MUSE R [place] 24 degrees MUSE T Wave [place] 32 degrees MUSE 11/24/2023 9:13 AM CDT [...] was found Reviewed by ANTONIETA Kirby Janina Hansen APRN, C.N.P., D.N.P. ECG ORDERABLES Performing Organization Address City/[facility] Co de Phone Number MUSE NA * CT Head without IV [...] over the left frontal convexity (for example 5- compared with 6-209 on the prior study) [...] space over the left frontalconvexity (for example 5- compared with 6-209 on the prior study) [...] a small subdural effusion. Sheldon Choi P.A.-C. [facility] CT PROC EDURES * Drug Screen Urine [...] 7:27 AM CDT Hilda Carranza APRN, C.N.P., M.S.N. LA B URINE ORDERABLES [facility] [address] [place] [address], [facility] [place][note 2] [address] [place] [address] * DX Chest Portable 1 View (11/24/2023 [...] not well appreciated radiographically. Sheldon Choi P.A.-C. [facility] DIAGNOS TIC IMAGING PROCEDURES * DX Femur [...] is overlying the distal left femur. Mickey HUBER DIAGNOSTIC IMAGI NG PROCEDURES * Lactate (11/23/2023 10:52 PM CDT) Lactate, P 2.1 0.5 - 2.2 mmol/L 11/23/2023 11:11 PM CDT ST[facility] Blood (Blood, Venous) 11/23/2023 10:52 PM CDT 11/23/2023 10:57 PM CDT Sheldon Choi P.A.-C. LAB BLOOD N ON ADD-ON Performing Organization Address City/[facility]/ZIP Co de Phone Number [facility] [address] [place] [address], [facility] 200 [place] [address] * (ABNORMAL) CBC without Differential (11/23/2023 10:52 PM CDT) [facility] Hemoglobin 9.5(L) 13.2 - 16.6 g/dL 11/23/2023 [...] LAB BLOOD A DD-ON Performing Organization Address City/[facility]/ZIP Co de Phone Number [facility] [address] [place] [address], [facility] 200 [place] [address] * (ABNORMAL) Troponin T, 6h, 5th Gen (11/23/2023 10:52 PM CDT) Troponin T, 6 hr, 5th gen 29(H) <=15 ng/L 11/23/2023 11:16 PM CDT STMA 6H Delta 7 ng/L 11/23/2023 11:16 PM CDT STMA 6H Delta Interp Not Changing 11/23/2023 11:16 PM CDT STMA Blood 11/23/2023 10:5 2 PM CDT 11/23/2023 10:57 PM CDT Bereket Snider M.D. LAB BLOOD TROPONIN [facility] [address] [place] [address], [facility] [address] [place] [address] * DX Femur Left 2 Views (11/23/2023 [...] and pelvis from earliertoday. Rosado catheter. Mickey RANDHAWA DIAGNOSTIC IMAGI NG PROCEDURES * ED fracture [...] CDT Sheldon Choi P.A.-C. LAB BLOOD T LAKESHA [facility] [address] [place] [address], [facility] [address] [place] [address] * Patient Status (11/23/2023 4:52 PM CDT) FIO2 0.21 0.21=AIR 11/23/2023 5:01 PM CDT STMA Spont. breaths/min 18 11/23/2023 5:01 PM CDT STMA Blood 11/23/2023 4:52 PM CDT 11/23/2023 5:01 PM CDT Sheldon Choi P.A.-C. LAB BLOOD N ON ADD-ON [facility] [address] [place] [address], [facility] [address] [place] [address] * (ABNORMAL) Blood Gas with Coox, Venous (11/23/2023 4:52 PM CDT) Pathologist [facility] pO2, Venous, B 22 Not applicable mm [...] Choi P.A.-C. LAB BLOOD N ON ADD-ON [facility] [address] [place] [address] * (ABNORMAL) pH (11/23/2023 4:51 PM CDT) pH 7.30(L) 7.35 - 7.45 pH 11/23/2023 5:06 PM CDT STMA Blood 11/23/2023 4:51 PM CDT 11/23/2023 5:01 PM CDT Sheldon Choi P.A.-C. LAB HISTORI PURNIMA ORDERS Performing Organization Address [facility] Co de Phone Number [facility] [address] [place] [address] * Hemoglobin A1c (11/23/2023 4:51 PM CDT) Hemoglobin A1c, B 5.4 4.0 - 5.6 % 11/23/2023 5:42 PM CDT DTL Blood (Blood, Venous) 11/23/2023 4:51 PM CDT 11/23/2023 5:19 PM CDT Sheldon Choi P.A.-C. LAB BLOOD A DD-ON Performing Organization Address City/[facility]/ZIP Co de Phone Number [facility] [address] [place], [place] [address] [place] [address] 200 [place] [address] * (ABNORMAL) CK (Creatine Kinase) (11/23/2023 4:51 PM CDT) Creatine Kinase (CK), S 728(H) 39 - 308 U/L 11/23/2023 6:04 PM CDT DTL Blood (Blood, Venous) 11/23/2023 4:51 PM CDT 11/23/2023 5:35 PM CDT Sheldon Choi P.A.-C. LAB BLOOD A DD-ON Performing Organization Address City/[facility] Co de Phone Number [facility] [address] [place], [place] [address] [place][note 2] [address] [place] [address] * (ABNORMAL) Troponin T, Baseline with 2 Hour/6 Hour Reflex Biomarker Panel (11/23/2023 4:51 PM CDT) [facility] Troponin T, Baseline, 5th gen 22(H) <=15 ng/L 11/23/2023 5:23 PM CDT STMA Blood (Blood, Venous) 11/23/2023 4:51 PM CDT 11/23/2023 5:01 PM CDT Sheldon Choi P.A.-C. LAB BLOOD T ROPONIN [facility] [address] [place], [place] [address] STMA [facility] 200 [place] [address] * (ABNORMAL) Prothrombin Time (PT) (11/23/2023 4:51 PM CDT) Pathologist [facility] Prothrombin Time, P 12.6(H) 9.4 - 12.5 [...] LAB BLOOD A DD-ON Performing Organization Address City/[facility]/ZIP Co de Phone Number [facility] 200 [place] [address], [facility] 200 [place] [address] * Phosphorus Inorganic (11/23/2023 4:51 PM CDT) Phosphorus (Inorganic), S 3.1 2.5 - 4.5 mg/dL 11/23/2023 6:04 PM CDT DTL Blood (Blood, Venous) 11/23/2023 4:51 PM CDT 11/23/2023 5:35 PM CDT Sheldon Choi P.A.-C. LAB BLOOD A DD-ON Performing Organization Address [facility] Co de Phone Number [facility] [address] [place] [address], [facility] [place][note 2] 200 [place] [address] * Magnesium (11/23/2023 4:51 PM CDT) Magnesium, S 2.0 1.7 - 2.3 mg/dL 11/23/2023 6:04 PM CDT DTL Blood (Blood, Venous) 11/23/2023 4:51 PM CDT 11/23/2023 5:35 PM CDT Sheldon Choi P.A.-C. LAB BLOOD A DD-ON Performing Organization Address City/[facility]/ZIP Co de Phone Number [facility] [address] [place] [id number], [facility] DTL [facility] [address] [place] [phone] * (ABNORMAL) Lactate (11/23/2023 4:51 PM CDT) [facility] Lactate, P 2.6(H) 0.5 - 2.2 mmol/L 11/23/2023 5:19 PM CDT STMA Blood (Blood, Venous) 11/23/2023 4:51 PM CDT 11/23/2023 5:01 PM CDT Sheldon Choi P.A.-C. LAB BLOOD N ON ADD-ON [facility] 200 [place] [address], [facility] STMA [facility] [address] [place] [address] * (ABNORMAL) CBC without Differential (11/23/2023 4:51 PM CDT) [facility] Hemoglobin 11.3(L) 13.2 - 16.6 g/dL 11/23/2023 [...] LAB BLOOD A DD-ON Performing Organization Address City/[facility] [place] [address] * (ABNORMAL) Calcium, Ionized (11/23/2023 4:51 PM CDT) Calcium, Ionized, B 4.59(L) 4.65 - 5.30 mg/dL 11/23/2023 5:06 PM CDT STMA Blood (Blood, Venous) 11/23/2023 4:51 PM CDT 11/23/2023 5:01 PM CDT Sheldon Choi P.A.-C. LAB BLOOD N ON ADD-ON Performing Organization Address [facility] Co de Phone Number [facility] [address] [place] [address] * (ABNORMAL) Basic Metabolic Panel (11/23/2023 4:51 [...] LAB BLOOD A DD-ON Performing Organization Address City/[facility]/ZIP Co de Phone Number [facility] 200 [place] [address], [facility] [place][note 2] 200 [place] [address] * Thromboelastograph, Kaolin, Blood (11/23/2023 4:49 PM [...] Choi P.A.-C. LAB BLOOD N ON ADD-ON [facility] [address] [place] [address], [facility] [address] [place] [address] * Critical Care (11/23/2023 4:42 PM CDT) [...] deterioration of the following conditions: shock trauma [employer] failure or compromise hemorrhage Critical care was [...] CDT) Ventricular Rate ECG/Min 95 BPM MUSE NV Interval 130 ms MUSE QRSD Interval 82 ms MUSE QT Interval 384 ms MUSE QTC Interval 482 ms MUSE P [place] 50 degrees MUSE R [place] 23 degrees MUSE T Wave [place] 45 degrees MUSE 11/23/2023 4:41 PM CDT [...] ??DX PELVIS 1-2 VIEWS Christopher Cornell M.D. IMG DIAGNOSTIC IMAGING PROCEDURES * (ABNORMAL) Basic [...] Christopher Cornell M.D. LAB BLOOD ADD- ON [facility] [email or web address] [facility] [address] [place] [address], [facility] 200 [place] [address] * (ABNORMAL) Troponin T, 2 Hour with 6 Hour Reflex, 5th Gen (11/23/2023 2:52 PM CDT) Troponin T, 2 hr, 5th gen 21(H) <=15 ng/L 11/23/2023 3:28 PM CDT STMA 2H Delta 4 ng/L 11/23/2023 3:28 PM CDT STMA Comment:6 hour collection pe nding. 2H Delta Interp Indeterminate 11/23/2023 3:28 PM CDT STMA Comment:Indeterminate delta, additional sample suggested Blood 11/23/2023 2:52 PM CDT 11/23/2023 2:58 PM CDT Bereket Snider M.D. LAB BLOOD TROPONIN [facility] 200 [place] [address], [facility] 200 [place] [address] * ECG 12 Lead (11/23/2023 2:45 PM CDT) Ventricular Rate ECG/Min 87 BPM MUSE NV Interval 138 ms MUSE QRSD Interval 82 ms MUSE QT Interval 402 ms MUSE QTC Interval 483 ms MUSE P [place] 46 degrees MUSE R [place] 19 degrees MUSE T Wave [place] 37 degrees MUSE 11/23/2023 2:45 PM CDT [...] thoracic or lumbar spine. Bereket Snider M.D. IMG CT PROCEDURES * CT Thoracic Spine by [...] thoracic or lumbar spine. Bereket Snider M.D. IM CT PROCEDURES * CT Abdomen Pelvis with [...] 0.7 cm in the right lower lobe (/136). There is volumeloss in both lower lobes [...] Small incidental pulmonary nodules. Bereket Snider M.D. IMJanna CT PROCEDURES * CT Cervical Spine without IV Contrast (11/23/2023 1:44 PM CDT) Anatomical Region Laterality Modality Cervical Spine, Neuroradiolo gy RST LOS, Neuroradiology [facility], Neuroradiology [facility] N/A Computed Tomography, Compute d Tomography 11/23/2023 [...] noted. Bereket RANDHAWA CT PROCEDURES * CT Head without IV Contrast (11/23/2023 1:44 PM CDT) Anatomical Region Laterality Modality Head, Neuroradiology [facility]ST [facility] , Neuroradiology [facility], Neuroradiology [facility] N/A Computed Tomography, Compute d Tomography 11/23/2023 [...] Findings discussed with Bereket Snider M.D. (pager #[phone]) on 11/23/2023 at 1:24 PM. Narrative 11/23/2023 2:27 PM CDT EXAM: CT HEAD WITHOUT IV CONTRAST COMPARISON: None Procedure Note Francisco Branes M.D. - 11/23/2023 EXAM: CT HEAD WITHOUT [...] Findings discussed with Bereket Snider M.D. (pager #[phone]) on 4at 1:24 PM. Bereket Snider M.D. IMG CT PROCEDURES * Lactate for Sepsis with Reflex, POCT (11/23/2023 1:06 PM CDT) [facility] Lactate, POCT 1.67 0.50 - 2.20 mmol/L 11/23/2023 1:19 PM CDT PCLX Blood (Blood, Venous) 11/23/2023 1:06 PM CDT 11/23/2023 1:06 PM CDT Bereket Snider M.D. LAB POCT ORDERABLES - DEVICE POC [facility] [address] [place] [address], [facility] PCLX [facility] [address] [place] [address] * (ABNORMAL) Venous Blood Gas and Electrolytes CG8+, POCT (11/23/2023 1:06 PM CDT) [facility] Sample Site, POCT Venstick 11/23/2023 1:19 PM [...] POCT ORDERABLES - DEVICE Performing Organization Address [facility] Co de Phone Number POC RST [facility] [address] [place], [place] [phone] [place] [address] PCSM [facility] [address] [place] [address] * (ABNORMAL) Troponin T, Baseline with 2 Hour/6 Hour Reflex Biomarker Panel (11/23/2023 1:06 PM CDT) Pathologist [facility] Troponin T, Baseline, 5th gen 17(H) <=15 ng/L 11/23/2023 1:36 PM CDT STMA Blood (Blood, Venous) 11/23/2023 1:06 PM CDT 11/23/2023 1:18 PM CDT Bereket Snider M.D. LAB BLOOD TROPONIN Performing Organization Address [facility] Co de Phone Number [facility] [address] [place] [address], [facility] 200 [place] [address] * Type and Screen (with Reflex Antibody ID) (11/23/2023 1:06 PM CDT) Pathologist [facility] ABORh AB Pos Not applicable 11/23/2023 1:46 PM CDT STRM Antibody Screen Negative Negative 11/23/2023 1:59 PM CDT STRM Type & Screen Expiration 11/26/2023 23:59 11/23/2023 1:46 PM CDT STRM Testing Location [place] DEFAULT 11/23/2023 1:19 PM CDT STRM Blood (Blood, Venous) 11/23/2023 1:06 PM CDT 11/23/2023 1:19 PM CDT Bereket Snider M.D. LAB BLOOD BANK TEST ORDERABLES Performing Organization Address City/[facility]/ZIP Co de Phone Number [facility] [address] [place] [address], [facility] [address] [place] [address] * APTT (Activated Partial Thromboplastin Time) (11/23/2023 1:06 PM CDT) Activated Partial Thrombopl Time, P 30 25 - 37 sec 11/23/2023 2:03 PM CDT [facility] Blood (Blood, Venous) 11/23/2023 1:06 PM CDT 11/23/2023 1:18 PM CDT Bereket Snider M.D. LAB BLOOD ADD-ON Performing Organization Address [facility] Co de Phone Number [facility] [address] [place], [place] [id number] [place] [address] [address] [place] [address] * (ABNORMAL) Prothrombin Time (PT) (11/23/2023 1:06 PM CDT) Prothrombin Time, P 16.8(H) 9.4 - 12.5 sec 11/23/2023 2:00 PM CDT [facility] INR 1.5 0.9 - 1.1 11/23/2023 2:00 PM CDT [facility] Comment: ----ADDITIONAL INFORMATION---- Standard intensity warfarin therapeutic range: 2.0 to 3.0 ?? High intensity warfarin therapeutic range: 2.5 to 3.5 Blood (Blood, Venous) 11/23/2023 1:06 PM CDT 11/23/2023 1:18 PM CDT Bereket Snider M.D. LAB BLOOD ADD-ON Performing Organization Address City/[facility]/ZIP Co de Phone Number [facility] [address] [place] [address], [facility] [address] [place] [address] * (ABNORMAL) CBC with Differential, Blood (11/23/2023 1:06 PM CDT) [facility] Hemoglobin 8.3(L) 13.2 - 16.6 g/dL 11/23/2023 [...] CDT Bereket Snider M.D. LAB BLOOD ADD-ON [facility] [address] [place] [address], [facility] ST[facility] [address] [place] [address] [facility] [address] [place] [address] * (ABNORMAL) S-TSH (Thyroid-Stimulating Hormone - Sensitive) (11/23/2023 1:05 PM CDT) TSH, Sensitive 6.1(H) 0.3 - 4.2 mIU/L 11/23/2023 2:14 PM CDT DTL Blood (Blood, Venous) 11/23/2023 1:05 PM CDT 11/23/2023 1:40 PM CDT Beerket Snider M.D. LAB BLOOD ADD-ON [facility] [address] [place], [place] [address] [address] [place] [address] * Lipase (11/23/2023 1:05 PM CDT) Pathologist [facility] [place] Lipase, S 19 13 - 60 U/L 11/23/2023 2: 14 PM CDT DTL Blood (Blood, Venous) 11/23/2023 1:05 PM CDT 11/23/2023 1:40 PM CDT Bereket Snider M.D. LAB BLOOD ADD-ON [facility] [address] [place], [place] [id number] [place] [address] [address] [place] [address] * (ABNORMAL) Hepatic Function Panel (11/23/2023 1:05 [...] M.D. LAB BLOOD ADD-ON Performing Organization Address City/[facility]/ZIP Co de Phone Number [facility] [address] [place], [place] [id number] [place] [phone] * Ethanol Level, Serum (11/23/2023 1:05 PM CDT) Pathologist [facility] Ethanol, S <10 <10 mg/dL 11/23/2023 2:1 4 PM CDT DTL Blood (Blood, Venous) 11/23/2023 1:05 PM CDT 11/23/2023 1:40 PM CDT Bereket Snider M.D. LAB BLOOD NON ADD-ON [facility] [address] [place] [address], [place] [address] * (ABNORMAL) Basic Metabolic Panel (11/23/2023 1:05 [...] CDT Bereket Snider M.D. LAB BLOOD ADD-ON [facility] [address] [place] [address], [facility] [address] [place] [address] * DX Pelvis 1-2 Views (11/23/2023 1:01 [...] Comminuted left acetabular fracture. Bereket Snider M.D. [facility] NG PROCEDURES * DX Chest [...] pleural effusion. Heart sizenormal. Bereket Snider M.D. [facility] NG PROCEDURES * (ABNORMAL) Thromboelastograph, [...] Bereket Snider M.D. LAB BLOOD NON ADD-ON [facility] [address] [place] [address], [facility] [address] [place] [address] documented in this encounter Visit Diagnoses Diagnosis Fracture Ilium Closed Initial Left (HCC)- Primary History Of Falling Retroperitoneal Hematoma Fracture Ilium Closed Initial Left (HCC) Fracture Acetabulum Closed Initial Left (HCC) Contusion Buttock Initial Anemia Subarachnoid Hemorrhage With Loss Of Conscious Initial (HCC) Other Shock (Hemorrhagic Shock) (HCC) Fracture Pelvis Multiple Closed With Stable [...] Initial (HCC) Delirium Postprocedural Hemorrhagic Shock Initial Overweight Body Mass Index 25-29.9 Adult Physical Restraint Status Atelectasis Effusion Pleural Thrombosis Deep Vein Lower Extremity Left (HCC) Dysphagia Retention Urinary documented in this encounter Admitting Diagnoses Diagnosis [...] Given 12/08/2023 12:04 PM CDT 650 mg vwxmkabfmbxtp-fzerdjrx-btpyquxaw in Lipoderm 2%-0.5%-2% cream 1 g 1 [...] MAR Action Action Date Dose Rate Site calcium gluc in NaCl, iso osm IVPB 2 g 2 g, intravenous, at 400 mL/hr, Administer over 15 Minutes, Once, On Tue11/23/23 at 1745, For 1 dose New Bag 11/23/2023 6:16 PM CDT 2 g 400 mL/hr calcium gluc in NaCl, iso osm IVPB 2 g 2 g, intravenous, at 400 mL/hr, Administer over 15 Minutes, Once, On Tue11/25/23 at 2215, For 1 dose New 11/25/2023 10:38 PM CDT 2 g 400 mL/hr calcium gluc in NaCl, iso osm IVPB 2 g 2 g, intravenous, at 400 mL/hr, Administer over 15 Minutes, Once, On Tue11/26/23 at 1200, For 1 dose New Bag 11/26/2023 11:51 AM CDT 2 g 400 mL/hr calcium gluc in NaCl, iso osm IVPB 2 g 2 g, intravenous, at 400 mL/hr, Administer over 15 Minutes, Once, On Tue11/27/23 at 0745, For 1 dose New Bag 11/27/2023 8:12 AM CDT 2 g 400 mL/hr ceFAZolin in dextrose (iso osm) IVPB 2 g (ANCEF) 2 g, intravenous, at 200 mL/hr, Administer over 30 Minutes, Every 8 hours, First dose on Tue11/25/23 at 1900, For 2 doses, Drug Monitoring Program: Pharmacist to adjust medication dosing based on indication and drug clearance factors., Indications: Prophylaxis, surgical New Bag 11/26/2023 4:00 AM CDT 2 g 200 mL/hr New Bag 11/25/2023 7:44 PM CDT 2 g 200 mL/hr enoxaparin injection 30 mg (LOVENOX) 30 mg, subcutaneous, 2 times daily, First dose on Tue11/30/23 at 1100 Given 12/01/2023 7:53 AM CDT 30 mg Left Upper Arm (Back ) Given 11/30/2023 9:02 PM CDT 30 mg Ri ght Lower Abdomen Given 11/30/2023 12:43 PM CDT 30 mg R ight Outer Thigh fentaNYL injection (SUBLIMAZE) Code/trauma/sedation medication, Starting on Tue11/23/23 at 1301 Given 11/23/2023 1:01 PM CDT 50 mcg fentaNYL injection 25 mcg (SUBLIMAZE) 25 mcg, intravenous, Every 2 hour PRN, moderate pain or score 4-6 of 10, severe pain or score 7-10 of 10, Starting on Tue11/23/23 at 1633 Given 11/26/2023 3:47 PM CDT 25 mcg Given 11/24/2023 7:37 AM CDT 25 mcg Given 11/24/2023 1:30 AM CDT 25 mcg furosemide injection 20 mg (LASIX) 20 mg, intravenous, Once, On 11/26/23 at 1745, For 1 dose, Adults: Doses less than 120 mg: IV push over 20 mg/minute. Doses 120 mg or greater: IVPB at 4 mg/minute. Peds/Neonates: Doses less than 120 mg over 0.5 mg/kg/minute. Doses 120 mg or greater: IVPB at 4 mg/minute. Given 11/26/2023 5:40 PM CDT 20 mg furosemide injection 20 mg (LASIX) 20 mg, intravenous, Once, On 11/27/23 at 1200, For 1 dose, Adults: Doses less than 120 mg: IV push over 20 mg/minute. Doses 120 mg or greater: IVPB at 4 mg/minute. Peds/Neonates: Doses less than 120 mg over 0.5 mg/kg/minute. Doses 120 mg or greater: IVPB at 4 mg/minute. Given 11/27/2023 12:39 PM CDT 20 mg furosemide injection 20 mg (LASIX) 20 mg, intravenous, Once, On Tue11/30/23 at 0915, For 1 dose, Adults: Doses less than 120 mg: IV push over 20 mg/minute. Doses 120 mg or greater: IVPB at 4 mg/minute. Peds/Neonates: Doses less than 120 mg over 0.5 mg/kg/minute. Doses 120 mg or greater: IVPB at 4 mg/minute. Given 11/30/2023 9:26 AM CDT 20 mg haloperidol lactate (HALDOL) 5 mg/mL injection - ADS Override Pull Starting on Tue11/24/23 at 0150, For 1 dose, Created by cabinet override haloperidol lactate injection 2 mg (HALDOL) 2 mg, intravenous, Once, On 11/26/23 at 1330, For 1 dose Given 11/26/2023 1:12 PM CDT 2 mg haloperidol lactate injection 5 mg (HALDOL) 5 mg, intravenous, Once, On Tue11/24/23 at 0215, For 1 dose Given 11/24/2023 1:55 AM CDT 5 mg haloperidol lactate injection 5 mg (HALDOL) 5 mg, intravenous, Once, On Tue11/24/23 at 0345, For 1 dose Given 11/24/2023 3:22 AM CDT 5 mg HYDROmorphone liquid 0.5 mg (Dilaudid) 0.5 mg, sublingual, Every 4 hours PRN, moderate pain or score 4-6 of 10, Starting on Tue11/24/23 at 1527 Given 11/30/2023 7:00 PM CDT 0.5 mg Given 11/29/2023 6:34 PM CDT 0.5 mg Given 11/26/2023 2:46 AM CDT 0.5 mg HYDROmorphone liquid 1 mg (Dilaudid) 1 mg, sublingual, Every 4 hours PRN, severe pain or score 7-10 of 10, Starting on Tue11/24/23 at 1527 Given 11/26/2023 12:39 PM CDT 1 mg iohexoL 300 mg iodine/mL solution 1-200 mL (OMNIPAQUE) 1-200 mL, intravenous, Once in imaging, contrast, Starting on Tue11/23/23 at 1310, For 1 dose, Imaging Protocol Orders, Dose per Radiant Medication Guidelines Given 11/23/2023 1:10 PM CDT 140 mL iohexoL 300 mg iodine/mL solution 1-200 mL (OMNIPAQUE) 1-200 mL, intravenous, Once in imaging, contrast, Starting on 11/26/23 at 0554, For 1 dose, Imaging Protocol Orders, Dose per Radiant Medication Guidelines Given 11/26/2023 6:09 AM CDT 140 mL Lactated Ringer's bolus 1,000 mL 1,000 mL, intravenous, at 2,000 mL/hr, Administer over 30 Minutes, Once, On Tue11/23/23 at 1700, For 1 dose New Bag 11/23/2023 5:00 PM CDT 1,000 mL 2000 mL/hr Lactated Ringer's bolus 1,000 mL 1,000 mL, intravenous, at 500 mL/hr, Administer over 2 Hours, Once, On Annika 11/24/23 at 1215, For 1 dose, Monitor response of heart rate, urine output. Thanks. New Bag 11/24/2023 12:05 PM CDT 1,000 mL 500 mL/hr Lactated Ringer's bolus 1,000 mL 1,000 mL, intravenous, at 1,000 mL/hr, Administer over 1 Hours, Once, On Tue11/25/23 at 2115, For 1 dose New Bag 11/25/2023 8:55 PM CDT 1,000 mL 1000 mL/hr Lactated Ringer's bolus 500 mL 500 mL, intravenous, at 1,000 mL/hr, Administer over 30 Minutes, Once, On Tue11/25/23 at 1545, For 1 dose New Bag 11/25/2023 3:39 PM CDT 500 mL 1000 mL/hr Lactated Ringer's bolus 500 mL 500 mL, intravenous, at 1,000 mL/hr, Administer over 30 Minutes, Once, On Tue11/25/23 at 1700, For 1 dose New Bag 11/25/2023 4:44 PM CDT 500 mL 1000 mL/hr Lactated Ringer's bolus 500 mL 500 mL, intravenous, at 250 mL/hr, Administer over 2 Hours, Once, On Tue11/28/23 at 1415, For 1 dose New Bag 11/28/2023 2:40 PM CDT 500 mL 250 mL/hr Lactated Ringer's bolus 500 mL 500 mL, intravenous, at 250 mL/hr, Administer over 2 Hours, Once, On Tue11/29/23 at 1415, For 1 dose New Bag 11/29/2023 3:02 PM CDT 500 mL 250 mL/hr Lactated Ringer's bolus 500 mL 500 mL, intravenous, at 250 mL/hr, Administer over 2 Hours, Once, On Tue11/30/23 at 1545, For 1 dose New Bag 11/30/2023 4:48 PM CDT 500 mL 250 mL/hr Lactated Ringer's 100 mL/hr, intravenous, Continuous, Starting on Tue11/23/23 at 1715 Restarted 11/25/2023 11:03 PM CDT 100 mL/hr 100 mL/hr Rate/Dose Verify 11/25/2023 9:00 PM CDT 100 mL/hr 100 mL/ hr Rate/Dose Verify 11/25/2023 8:00 PM CDT 100 mL/hr 100 mL/ hr lidocaine (PF) 10 mg/mL (1 %) injection 20 mL (XYLOCAINE) 20 mL, infiltration, Once, On Tue11/23/23 at 2000, For 1 dose, For traction per orthopedic surgery. Given 11/23/2023 8:00 PM CDT 20 mL magnesium sulfate in water IVPB 2 g 2 g, intravenous, at 25 mL/hr, Administer over 120 Minutes, Once, On Annika 11/24/23 at 1500, For 1 dose New Bag 11/24/2023 2:39 PM CDT 2 g 25 mL/hr magnesium sulfate in water IVPB 4 g 4 g, intravenous, at 25 mL/hr, Administer over 240 Minutes, Once, On 11/26/23 at 1130, For 1 dose New Bag 11/26/2023 12:35 PM CDT 4 g 25 mL/hr melatonin tablet 3 mg 3 mg, oral, Daily at bedtime, First dose on Annika 12/01/23 at 2100 Given 12/03/2023 8:53 PM CDT 3 mg Given 12/03/2023 12:07 AM CDT 3 mg Given 12/01/2023 9:53 PM CDT 3 mg melatonin tablet 6 mg 6 mg, oral, Daily at bedtime, First dose (after last modification) on Tue12/04/23 at 2100 Given 12/06/2023 7:10 PM CDT 6 mg Given 12/05/2023 10:08 PM CDT 6 mg Given 12/04/2023 9:16 PM CDT 6 mg metoprolol (LOPRESSOR) 5 mg/5 mL injection - ADS Override Pull Starting on Tue11/24/23 at 1410, For 1 dose, Created by cabinet override metoprolol injection 2.5 mg (LOPRESSOR) 2.5 mg, intravenous, Once, On 11/26/23 at 0815, For 1 dose Given 11/26/2023 10:29 AM CDT 2.5 mg metoprolol injection 5 mg (LOPRESSOR) 5 mg, intravenous, Once, On Annika 11/24/23 at 1430, For 1 dose Given 11/24/2023 2:35 PM CDT 5 mg metoprolol tablet 12.5 mg (LOPRESSOR) 12.5 mg, gastric tube, 2 times daily, First dose on Tue11/25/23 at 1530, Hold for SBP <90, HR <60 Given 11/25/2023 3:53 PM CDT 12.5 mg metoprolol tablet 12.5 mg (LOPRESSOR) 12.5 mg, oral, 2 times daily, First dose on 11/26/23 at 2130 Given 11/27/2023 8:12 AM CDT 12.5 mg Given 11/26/2023 9:24 PM CDT 12.5 mg metoprolol tablet 12.5 mg (LOPRESSOR) 12.5 mg, oral, Once, On Tue11/27/23 at 1015, For 1 dose Given 11/27/2023 10:03 AM CDT 12.5 mg metoprolol tartrate suppository 12.5 mg (LOPRESSOR) 12.5 mg, rectal, 2 times daily, First dose on 11/26/23 at 0900 Given 11/26/2023 10:29 AM CDT 12.5 mg metoprolol tartrate tablet 25 mg (LOPRESSOR) 25 mg, oral, 2 times daily, First dose (after last modification) on 11/27/23 at 2100 Given 11/27/2023 11:32 PM CDT 25 mg NaCl 0.9 % bolus Administer over 1 Hours, Code/trauma/sedation continuous med, Starting on Tue11/23/23 at 1255 New Bag 11/23/2023 12:55 PM CDT 1,000 mL norepinephrine 16 mcg/mL in D5W 250 mL infusion - ADS Override Pull Starting on Tue11/25/23 at 2108, For 1 dose, Created by cabinet override Protect from light and avoid extravasation norepinephrine 16 mcg/mL in D5W 250 mL infusion 0-0.3 mcg/kg/min ? 86.3 kg Dosing weight (0-97.0875 mL/hr, rounded to 0-97.09 mL/hr), intravenous, Continuous, Starting on Tue11/25/23 at 2130, Protect from light and avoid extravasation, Patient Type: Standard, Initiate at: 0.05 mcg/kg/min, Titrate at: 0.05 mcg/kg/min. every 5 min., Wean at: 0.01 mcg/kg/min. every 5 min., Goal: MAP 60-80 Rate/Dose Change 11/26/2023 5:24 AM CDT 0.01 mcg/kg/min 3.24 mL/hr Rate/Dose Change 11/26/2023 5:17 AM CDT 0.02 mcg/kg/min 6. 47 mL/hr Rate/Dose Verify 11/26/2023 5:00 AM CDT 0.04 mcg/kg/min 12 .9 mL/hr OLANZapine injection 2.5 mg (ZyPREXA) 2.5 mg, intravenous, Every 6 hours PRN, agitation, Starting on Annika 11/24/23 at 1349, Reconstitute with SWFI. 10 mg vial: add 2.1 mL Approximate final concentration = 5 mg/mL., Restriction Criteria (Pharmacy will review and approve if criteria met): Oral olanzapine is indicated but refused or unable to be administered Given 12/02/2023 9:43 PM CDT 2.5 mg Given 11/30/2023 8:50 AM CDT 2.5 mg Given 11/27/2023 11:30 AM CDT 2.5 mg oxyCODONE IR tablet 2.5 mg (ROXICODONE) 2.5 mg, oral, Every 4 hours PRN, moderate pain or score 4-6 of 10, severe pain or score 7-10 of 10, Starting on Tue11/23/23 at 1633 Given 11/24/2023 8:20 AM CDT 2.5 mg oxyCODONE IR tablet 2.5 mg (ROXICODONE) 2.5 mg, oral, Every 4 hours PRN, severe pain or score 7-10 of 10, Starting on Tue12/02/23 at 2027 Given 12/05/2023 1:57 PM CDT 2.5 mg phenylephrine injection 200 mcg 200 mcg, intravenous, Once, On Tue11/25/23 at 2230, For 1 dose, Order for previously given 200mcg. Given 11/25/2023 10:14 PM CDT 200 mcg potassium chloride IVPB 10 mEq 10 mEq, intravenous, at 50 mL/hr, Administer over 60 Minutes, Every 1 hour, First dose on 11/26/23 at 1145, For 6 doses, Peripheral Line: 10 mEq per bag over 1 hour each. New Bag 11/26/2023 5:39 PM CDT 10 mEq 50 mL/hr New Bag 11/26/2023 4:49 PM CDT 10 mEq 50 mL/hr New Bag 11/26/2023 3:30 PM CDT 10 mEq 50 mL/hr ramelteon tablet 8 mg (ROZEREM) 8 mg, oral, Daily at bedtime, First dose on Annika 11/24/23 at 2100, Restriction Criteria (Pharmacy will review and approve if criteria met): Does not meet criteria (Sleep center provider recommended), Authorizing provider? Geriatric med Given 11/30/2023 8:53 PM CDT 8 mg Given 11/29/2023 9:46 PM CDT 8 mg Given 11/28/2023 10:39 PM CDT 8 mg sodium chloride (PF) 0.9 % injection 1-100 mL 1-100 mL, intravenous, Once, On Tue11/23/23 at 1311, For 1 dose, Imaging Protocol Orders, Dose per Radiant Medication Guidelines Given 11/23/2023 1:11 PM CDT 50 mL sodium chloride (PF) 0.9 % injection 1-100 mL 1-100 mL, intravenous, Once, On Tue11/26/23 at 0615, For 1 dose, Imaging Protocol Orders, Dose per Radiant Medication Guidelines Given 11/26/2023 6:09 AM CDT 50 mL sodium chloride 0.9 % injection 3 mL 3 mL, intravenous, Every 12 hours scheduled, First dose on Tue11/23/23 at 2100, Peripheral Intravenous Catheter and Rapid Infusion Catheter, when no infusion to maintain patency Given 11/30/2023 8: 57 PM CDT 3 mL Given 11/30/2023 9:22 AM CDT 3 mL Given 11/29/2023 9:55 PM CDT 3 mL sodium phosphate 30 mmol in NaCl 0.9% IVPB 30 mmol, intravenous, at 59.1 mL/hr, Administer over 4.4 Hours, Once, On Tue11/27/23 at 0745, For 1 dose, Administer at 6.8 mmoL phosphate/hr. Max rate of 15 mmoL phosphate/hr. New Bag 11/27/2023 8:19 AM CDT 30 mmol 59.1 mL/hr suvorexant tablet 10 mg 10 mg, oral, Daily at bedtime, First dose (after last modification) on Tue11/27/23 at 2100 Given 11/30/2023 8:53 PM CDT 10 mg Given 11/29/2023 9:46 PM CDT 10 mg Given 11/28/2023 10:44 PM CDT 10 mg suvorexant tablet 5 mg (BELSOMRA) 5 mg, oral, Daily at bedtime, First dose on Tue11/24/23 at 2100 Given 11/26/2023 9:24 PM CDT 5 mg Given 11/24/2023 9:23 PM CDT 5 mg tamsulosin 24 hr capsule 0.4 mg (FLOMAX) 0.4 mg, oral, Daily, First dose (after last reorder) on Tue11/27/23 at 0900, Swallow whole. Do NOT crush, chew or open capsule. Given 12/03/2023 9:28 AM CDT 0 .4 mg Given 12/02/2023 8:37 AM CDT 0.4 mg Given 12/01/2023 7:49 AM CDT 0.4 mg documented in this encounter Active and Recently Administered Medications Times are shown in CDT. Scheduled Medication Order 12/07/2023 12/08/2023 12/09/2023 acetaminophen tablet 650 mg (TYLENOL) 650 mg, oral, Every 6 hours, First dose on Tue11/23/23 at 1700 0449 (Given - Provider: Sonali Castellanos RTarikN.)1349 (Not Given - Provider: Ivy Rodrigez RRoberto. - Reason: Patient/family refused)1729 (Given - Provider: Ivy Rodrigez R.N.) 0035 (Not Given - Provider: Elaine Castillo R.N. - Reason: Patient/family refused)0405 (Given - Provider: Shantanu MccrackenNTarik)1204 (Given - Provider: Ivy Rodrigez R.N.)1817 (Given [...] next availbe would be 1500)1700 (Due)2300 (Due) nviyhtjovhnwv-yzhxwern-ds docaine in Lipoderm 2%-0.5%-2% cream 1 g 1 g, topical, 3 times daily, First dose (after last modification) on Annika 11/24/23 at 0915 0801 (Given - Provider: Ivy Rodrigez R.N.)1825 (Given - Provider: Ivy Rodrigez R.N.)2102 (Given - Provider: Afshin Bocanegra R.N.) 0846 (Given - Provider: Ivy Rodrigez R.N.)1817 (Given - Provider: Ivy Rodrigez R.N.)2015 (Given - Provider: Ivy Rodrigez R.N.) 0851 (Given - Provider: Bereket Singleton R.N.)1307 (Not Given - Provider: Bereket [place] R.N. - Reason: Patient/family refused)2100 (Due) bisacodyL suppository 10 mg (DULCOLAX) 10 mg, rectal, Daily, First dose on Annika 24 at 0915 0810 (Not Given - Provider: Ivy Rodrigez R.N. - Reason: Patient/family refused) 0909 (Not Given - Provider: Ivy Rodrigez R.N. - Reason: Patient/family refused) 0848 (Not Given - Provider: Bereket Singleton R.N. - Reason: Other) enoxaparin injection 30 mg (LOVENOX) 30 mg, subcutaneous, 2 times daily, First dose on Tue12/01/23 at 2100 0801 (Given - Provider: Ivy Rodrigez R.N.)2107 (Given - Provider: Afshin Bocanegra R.N.) 0848 (Given - Provider: Ivy [...] Ivy Rodrigez R.N. - Reason: Patient/family refused) 0909 (Not Given - Provider: Ivy Rodrigez R.N. - Reason: Patient/family refused) 0856 (Medication Applied - Provider: Bereket Singleton R.N.)2055 (Due: Medication Removed - Provider: Bereket Singleton R.N.) magnesium hydroxide suspension 30 mL (Milk of Magnesia) 30 mL, oral, Daily at bedtime, First dose on Tue12/01/23 at 2100 2109 (Not Given - Provider: Afshin Bocanegra R.N. [...] R.N.)2101 (Given - Provider: Afshin Bocanegra R.N.) 0846 (Given - Provider: Ivy Rodrigez R.N.)2014 (Given - Provider: Ivy Rodrigez R.N.) 0858 (Given - Provider: Bereket Singleton R.N.)2099 (Due) polyethylene glycol powder packet 17 g [...] at bedtime, First dose on Tue12/07/23 at 2099 2101 (Given - Provider: Afshin Bocanegra R.N.) 2014 (Given - Provider: Ivy Rodrigez R.N.) 2099 (Due) sennosides tablet 17.2 mg (SENOKOT) 17.2 mg, oral, 2 times daily, First dose on Tue11/25/23 at 2099 08 (Given - Provider: Ivy Rodrigez R.N.)2109 (Not [...] institution). documented in this encounter Care Teams [employer]yer Relationship Specialty Start Date End Date Elsewhere, Pcp PCP - General Internal Medicine 11/23/23 documented as of this encounter
== END 2023-11-23 11:33 | disposition home or self-care (01) ==
LOC: AMB 12-09 15:30
PROVIDERS: Visit Provider Family Medicine
DX: S79.911A Unspecified injury of right hip, initial encounter (principal); W11.XXXA Fall on and from ladder, initial encounter; Y92.007 Garden or yard of unspecified non-institutional (private) residence as the place of occurrence of the external cause
CPT/HCPCS: A0425; A0427

== ENCOUNTER 2024-01-23 09:47 | Emergency (ER) | payer OTHER, SELFPAY ==
[2024-01-23 10:03] VITALS: BP 153/81; PULSE 66; RESP 16; TEMP 36.6; O2SAT 95; BMI 24.4
--- NOTE | 2024-01-23 10:20 | ED.GENADULT ---
HPI - General Adult General Chief complaint: Skin/Abscess/Foreign Body Stated complaint: surgical stitches needing to be removed Time Seen by Provider: 01/23/24 09:50 History of Present Illness HPI narrative: patient has 3 sutures in the right hip area that was not removed. had surgery at [facility] and need to be removed per . no signs of infection. 83-year-old man presenting to the emergency department for follow-up of surgery needing staple removal. Had extended hospitalization following a fall and complicated pelvic fractures were along with TBI. There long enough to have all other sutures and inna removed but seem to have missed a few which spouse is clear to say that she does not be gradual this. No indication of infection per their report. Located on the right abdomen. She thinks it was from a surgical trocar her or port she says. They had presented initially to urgent care to have them removed but were directed to this emergency department Related Data Home Medications ?Medication ?Instructions ?Recorded ?Confirmed finasteride 5 mg tablet mg 01/23/24 Allergies Allergy/AdvReac Type Severity Reaction Status Date / Time No Known Drug Allergies Allergy Verified 01/23/24 10:08 Review of Systems Status of ROS: Reports: 6 or more systems reviewed and unremarkable except as noted in History and below [facility] Medical History Sensorineural hearing loss ?H90.5 - Unspecified sensorineural hearing loss (ICD-10) Lumbar degenerative disc disease ?M51.36 - Other intervertebral disc degeneration, lumbar region (ICD-10) Retention of urine (09/03/21) ?R33.9 - Retention of urine, unspecified (ICD-10) Social History Smoking Status: Never smoker Do you use any of these nicotine containing products: None Second hand tobacco smoke exposure: Yes How often do you have a drink containing alcohol: never How often do you have six or more drinks on one occasion: Never AUDIT-C Alcohol total score: 0 Non-prescribed substance use: denies use service: Yes Exam Narrative: Exam Narrative: Pleasant. Hard of hearing but also seems to have some cognitive difficulty at this time. Breathing easily. Moving all extremities without apparent difficulty. Large well-healed surgical scars over abdomen and pelvis. At the right low abdomen there is a nearly 3 in long surgical incision with 3 inna remaining. No inflammatory changes surrounding it. Const: Vital Signs, click to edit/add: Vital Signs - 24 hr 01/23/24 10:03 Temperature 97.8 F Pulse Rate [Pulse Oximeter] 66 Respiratory Rate 16 Blood Pressure [Ri ght Upper Arm] 153/81 H Pulse Oximetry 95 Oxygen Delivery Me thod Room Air Documenting provider has reviewed patient's vital signs: yes Course Vital Signs Vital signs: Initial Vital Signs Temperature 97.8 F 01/23/24 10:03 Temperature Source Temporal Artery Scan 01/23/24 10:03 Pulse Rate 66 01/23/24 10:03 Respiratory Rate 16 01/23/24 10:03 Blood Pressure 153/81 H 01/23/24 10:03 Blood Pressure Mean 105 01/23/24 10:03 Blood Pressure Position Sitting 01/23/24 10:03 Pulse Oximetry 95 01/23/24 10:03 Oxygen Delivery Method Room Air 01/23/24 10:03 Vital Signs Temperature 97.8 F 01/23/24 10:03 Pulse Rate 66 01/23/24 10:03 Respiratory Rate 16 01/23/24 10:03 Blood Pressure 153/81 H 01/23/24 10:03 Pulse Oximetry 95 01/23/24 10:03 Oxygen Delivery Method Room Air 01/23/24 10:03 Temperature 97.8 F 01/23/24 10:03 Pulse Rate 66 01/23/24 10:03 Respiratory Rate 16 01/23/24 10:03 Blood Pressure 153/81 H 01/23/24 10:03 Pulse Oximetry 95 01/23/24 10:03 Oxygen Delivery Method Room Air 01/23/24 10:03 Medical Decision Making MDM Narrative Medical decision making narrative: Clearly past time to have these inna removed. We can accommodate this easily here. No secondary indication of infection and no further concerns expressed. I returned with staple remover and without difficulty plucked out 3 inna. Tolerated without any evidence of pain. See patient discharge plan for further discussion Discharge Plan Discharge Clinical Impression: Encounter for removal of inna Patient Disposition: Home w/ Parent or Adult Condition: Improved Additional Instructions: I do not anticipate any problems here regarding infection. Best wishes though healing otherwise. Prescriptions: No Action finasteride 5 mg tablet Patient Comments: TAKE ONE TABLET BY MOUTH ONE TIME DAILY* Follow Up/Referrals: Provider,Not a Local [Primary Care Provider] - Stand Alone Forms: [facility] Info Instructions
--- OUTSIDE RECORDS SUMMARY | 2024-01-23 10:36 | XMS_ITS | Encounter Summary ---
Author Name [facility] [facility] [place] Address [address], [place] [address] Care Team Providers Care Brief Writer Name Role Phone ROMANA GOLDSTEIN Primary Care [...] PART A Jul 21, 2007 PART A [id number] [phone] PRATEEK COHN PATIENT Selected Encounter This section includes the information on record at [place] for the Encounter. Date/Time Encounter Type Encounter Description Reason Pro vider Source Dec 20, 2023 09:20 AM Outpatient Encounter TELEPHONE PRIMARY CARE I[facility] Encounter Template Text not used by [place] Plan of Treatment: Future Appointments (+ 6 months) and Future Tests (+/- 45 days) The Plan of Treatment section includes future care activities for the patient from all [place] treatmentfacilities. This section includes future appointments and future orders which are active, pending or scheduled. Future Appointments This section includes appointments that were scheduled to occur 6 months from the date of the Encounter, up to a maximum of 20 appointments. The data comes from all [place] treatment facilities. Appointment Date/Time Appointment Type Appointme nt Facility Name Dec 29, 2023 07:00 AM [facility] [place] [facility]ONE [place] [facility] Jan 11, 2024 01:00 PM AMBULATORY - MEDICINE [place] [place] ([facility]) Jan 11, 2024 02:30 PM AMBULATORY - [facility]CHIATRY [facility] ([facility]) Jan 31, 2024 09:00 AM AM[facility]ULATORY - [facility]IATRY [facility] ([facility]) Jan 31, 2024 09:01 AM [place] [facility] Active, Pending, and Scheduled Orders This section includes a listing of several types of active, pending, and scheduled orders, including clinic medications orders, diagnostic test orders, procedure orders and consult orders; where the start date of the order is 45 days before the date of the Encounter or 45 days after the date of theEncounter. The data comes from all [place] treatment facilities. Test Date/Time Test Type Test Details Facility Name Jan 11, 2024 04:27 PM Consult Order MH OUTPT-N EUROPSYCHOLOGY Cons Blue Leather Sorter's Choice [facility] ([facility]) Social History: Smoking Status (Most current) and Tobacco Use (All prior to encounter date) This section includes the most current, and the historical, smoking and tobacco- related health factors from the [place] facility where the Encounter took place. Current Smoking Status This section includes the most current smoking, or tobacco-related health factor, from the [place] facility where the Encounter took place. Date/Time Current Smoking Status Comment Facil ity Dec 01, 2017 02:51 PM LIFETIME NON-TOBACCO USER [facility] Tobacco Use History This section includes a history of the smoking, or tobacco-related health factors, that were collected on or before the date of the Encounter. The data comes from the [place] facility where the Encounter took place. Date/Time [...] OR [facility] Encounter Notes: All associated encounter notes This section contains the clinical notes associated to the Encounter. Date/Time Encounter Note(s) Provider Source Dec 19, 2023 03:15 PM SOCIAL WORK NOTE: LOCAL TITLE: SW SOCIAL WORK PROGRESS NOTE STANDARD TITLE: SOCIAL WORK NOTE DATE OF NOTE: DEC 19, 2023@15:15 ENTRY DATE: DEC 20, 2023@09:20:28 AUTHOR: ELLEN LEON COSIGNER: URGENCY: STATUS: COMPLETED SOCIAL WORK PROGRESS NOTE Has ADDENDA PCSW received live call from Carl Mock's mission planner at the [facility] in [place], [place] on 12/19/23. Mani was inquiring about the DME form he sent story writer, story writer informed him I received his email but no attachment. Welding Machine Operator [employer] provided fax to send it to for Community DME requests instead, he stated he would fax is on 12/19/23. [facility]'s discharge is on hold until they can secure the DME equipment, however is medically stable to discharge. They are requesting these items get sent out to family RAFAEL. PCSW is kindly cosigning Community Therapy team as an FYI of hospital's request. Carl mission planner can be reached at [phone] with any questions. PCSW to remain available. /dexter/ ADELSO Sandoval Primary Care Slip Filler Signed: 12/20/2023 09:20 Receipt Acknowledged By: 12/20/2023 15:32 /dexter/ ISH PANIAGUA DPT PHYSICAL THERAPIST 12/20/2023 ADDENDUM STATUS: COMPLETED DME form has not been received. Additional methods for submitting the forms have been sent to the requesting provider. Will submit DME requests as soon as the forms are received. /dexter/ ISH PANIAGUA DPT PHYSICAL THERAPIST Signed: 12/20/2023 15:32 ELLEN LEON [facility] A[facility] ([facility])
--- OUTSIDE RECORDS SUMMARY | 2024-01-23 10:36 | XMS_ITS | Encounter Summary ---
Author Name [facility] [place] [facility] [place] Address [address], [place] [address] Care Team Providers Care Frame Hand Name Role Phone ROMANA GOLDSTEIN Primary Care [...] PART A Jul 21, 2007 PART A [id number] [phone] PRATEEK COHN PATIENT Selected Encounter This section includes the information on record at [place] for the Encounter. Date/Time Encounter Type Encounter Description Reason Pro vider Source Dec 06, 2023 09:18 AM Outpatient Encounter TELEPHONE PRIMARY CARE I[facility] Encounter Template Text not used by [place] Plan of Treatment: Future Appointments (+ 6 months) and Future Tests (+/- 45 days) The Plan of Treatment section includes future care activities for the patient from all [place] treatmentfacilities. This section includes future appointments and future orders which are active, pending or scheduled. Future Appointments This section includes appointments that were scheduled to occur 6 months from the date of the Encounter, up to a maximum of 20 appointments. The data comes from all [place] treatment facilities. Appointment Date/Time Appointment Type Appointme nt Facility Name Dec 29, 2023 07:00 AM [place]ORY [place]ONE [place] [facility] Jan 11, 2024 01:00 PM AMBULATORY - MEDICINE [facility] ([facility]) Jan 11, 2024 02:30 PM AMBULATORY - PS[facility]IATRY [facility] ([facility]) Jan 31, 2024 09:00 AM AMBULATORY - [facility]IATRY [facility] ([facility]) Jan 31, 2024 09:01 AM [place] [facility] Active, Pending, and Scheduled Orders This section includes a listing of several types of active, pending, and scheduled orders, including clinic medications orders, diagnostic test orders, procedure orders and consult orders; where the start date of the order is 45 days before the date of the Encounter or 45 days after the date of theEncounter. The data comes from all [place] treatment facilities. Test Date/Time Test Type Test Details Facility Name Jan 11, 2024 04:27 PM Consult Order MH OUTPT-N EUROPSYCHOLOGY Cons Cook Fast [employer]'s Choice [place] ([facility]) Social History: Smoking Status (Most current) and Tobacco Use (All prior to encounter date) This section includes the most current, and the historical, smoking and tobacco- related health factors from the [place] facility where the Encounter took place. Current Smoking Status This section includes the most current smoking, or tobacco-related health factor, from the [place] facility where the Encounter took place. Date/Time Current Smoking Status Comment Facil ity Dec 01, 2017 02:51 PM LIFETIME NON-TOBACCO USER [facility] Tobacco Use History This section includes a history of the smoking, or tobacco-related health factors, that were collected on or before the date of the Encounter. The data comes from the [place] facility where the Encounter took place. Date/Time Smoking Status/Tobacco Use Comment F acility Aug 10, 2016 09:08 AM FORMER TOBACCO USER 7Y [facility] Aug 10, 2016 09:08 AM LIFETIME NON-TOBACCO USER [facility] Sep 06, 2014 08:19 AM FORMER TOBACCO USER 7Y OR [facility] Dec 09, 2011 01:28 PM FORMER TOBACCO USER 7Y OR [facility] Encounter Notes: All associated encounter notes This section contains the clinical notes associated to the Encounter. Date/Time Encounter Note(s) Provider Source Dec 06, 2023 09:18 AM SOCIAL WORK NOTE: LOCAL TITLE: SW SOCIAL WORK PROGRESS NOTE STANDARD TITLE: SOCIAL WORK NOTE DATE OF NOTE: DEC 06, 2023@09:18 ENTRY DATE: DEC 06, 2023@09:18:59 AUTHOR: ELLEN CRAIG COSIGNER: URGENCY: STATUS: COMPLETED SOCIAL WORK PROGRESS NOTE Has ADDENDA PCSW received a voicemail from [facility] Joselin Trevzio requesting return call regarding home care and senior care care as [facility] is currently in hospital looking to discharge soon. This pattern chart writer placed return call [facility] Karoline on this day (12/06/23) at [phone] and left a HIPPA compliant message on an unidentified voicemail introducing myself, the clinic I was calling with and requested a return call to my direct line at [phone], awaiting return call. /dexter/ Ellen Craig [facility] Primary Care Glove Operator Signed: 12/06/2023 09:19 12/06/2023 ADDENDUM STATUS: COMPLETED PCSW received a return call from [facility] Kenny on this day (12/06/23) and spoke with her regarding bringing home after rehab. [facility] is currently in the hospital and will discharge to a assisted facility for short term rehab. Family is hoping to bring him home once rehab is complete. 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 Tilt Tray Driver stated she could become employed with the home care agency and they would pay her but [facility] would not pay her directly, she voiced understanding. - Respite- verbalized understanding that this is available to her. - DME such as hospital beds, ramps and other items. is aware to contact pattern chart writer once needs are known after rehab, she verbalized understanding to call. also stated that her son and daughter in law are discussing moving her and [facility] down to them in [place] and inquired about A benefits down there. Tilt Tray Driver stated that a lot of our programs are federal benefits so I would think so, but we could look into that more at the time, Kenyn verbalized understanding. Kenny had no further questions at the time of visit. Kenny confirmed she has pattern chart writer direct line and will call with any questions. PCSW to remain available. /dexter/ ADELSO Sandoval Primary Care Glove Operator Signed: 12/06/2023 15:52 ELLEN CRAIG ([facility])
--- OUTSIDE RECORDS SUMMARY | 2024-01-23 10:36 | XMS_ITS | Encounter Summary ---
Author Name [facility] [facility] [place] [facility] [place] Address [address], [place] [address] Care Team Providers Care Motor Scooter Mechanic Name Role Phone ROMANA GOLDSTEIN Primary [...] PART A Jul 21, 2007 PART A [id number] [phone] PRATEEK COHN PATIENT Selected Encounter This section includes the information on record at [place] for the Encounter. Date/Time Encounter Type Encounter Description Reason Pro vider Source Dec 09, 2023 10:19 AM Outpatient Encounter TELEPHONE PRIMARY CARE IHE Encounter Template Text not used by [place] Plan of Treatment: Future Appointments (+ 6 months) and Future Tests (+/- 45 days) The Plan of Treatment section includes future care activities for the patient from all [place] treatmentfacilities. This section includes future appointments and future orders which are active, pending or scheduled. Future Appointments This section includes appointments that were scheduled to occur 6 months from the date of the Encounter, up to a maximum of 20 appointments. The data comes from all [place] treatment facilities. Appointment Date/Time Appointment Type Appointme nt Facility Name Dec 29, 2023 07:00 AM AM[facility]ULATORY - NONE [facility] Jan 11, 2024 01:00 PM AMBULATORY - MEDICINE [place] ([facility]) Jan 11, 2024 02:30 PM AMBULATORY - PS[facility]CHIATRY [facility] ([facility]) Jan 31, 2024 09:00 AM AMBULATORY - [facility]CHIATRY [facility] ([facility]) Jan 31, 2024 09:01 AM AMBULATORY - [facility]ATRY [place] [facility] Active, Pending, and Scheduled Orders This section includes a listing of several types of active, pending, and scheduled orders, including clinic medications orders, diagnostic test orders, procedure orders and consult orders; where the start date of the order is 45 days before the date of the Encounter or 45 days after the date of theEncounter. The data comes from all [place] treatment facilities. Test Date/Time Test Type Test Details Facility Name Jan 11, 2024 04:27 PM Consult Order MH OUTPT-N EUROPSYCHOLOGY Cons Quality Assurance Nurse's Choice [place] ([facility]) Social History: Smoking Status (Most current) and Tobacco Use (All prior to encounter date) This section includes the most current, and the historical, smoking and tobacco- related health factors from the [place] facility where the Encounter took place. Current Smoking Status This section includes the most current smoking, or tobacco-related health factor, from the [place] facility where the Encounter took place. Date/Time Current Smoking Status Comment Facil ity Dec 01, 2017 02:51 PM LIFETIME NON-TOBACCO USER [facility] Tobacco Use History This section includes a history of the smoking, or tobacco-related health factors, that were collected on or before the date of the Encounter. The data comes from the [place] facility where the Encounter took place. Date/Time Smoking Status/Tobacco Use Comment F acility Aug 10, 2016 09:08 AM FORMER TOBACCO USER 7Y OR GREATE R [facility] Aug 10, 2016 09:08 AM LIFETIME NON-TOBACCO USER [facility] Sep 06, 2014 08:19 AM FORMER TOBACCO USER 7Y OR GREATE R [facility] Dec 09, 2011 01:28 PM FORMER TOBACCO USER 7Y OR GREATE R [facility] Encounter Notes: All associated encounter notes This section contains the clinical notes associated to the Encounter. Date/Time Encounter Note(s) Provider Source Dec 12, 2023 03:18 PM ADDENDUM: LOCAL TITLE: Addendum STANDARD TITLE: ADDENDUM DATE OF NOTE: DEC 12, 2023@15:18:05 ENTRY DATE: DEC 12, 2023@15:18:05 AUTHOR: ELLEN CRAIG COSIGNER: URGENCY: STATUS: COMPLETED PCSW received spoke with Romana- the [facility] [employer] on this day (12/12/23) stating that Alva is currently on a 1:1 at the hospital which is why they haven't been able [place] a [place]. Romana stated that they may not find placement, they are waiting to hear back [place] one other [place] but if not then will be discharging home and they will need home care. Director Personal verbalized understanding and stated that we can get DME and Home Care through [facility] but it was going to be minimal home care and DME may take a while to set up, Romana verbalized understanding. We also discussed [facility] neither of which are appropriate for Alva at this time. Romana is going to talk with about home care and DME and call check writer salesperson back. Director Personal received a return call from hospital [employer] and her message stated they are still [place], but the Alva's spouse didn't tell them he was a 1:1 so she was not sure if they would accept Alva. She stated that the would like to move forward with DME and home care planning. She notes the Alva needs the following: Home PT, OT, RN and SOIL SCIENCE PROFESSOR and DME: hospital bed, urinary cath's, betadine wipes, urinal, bath/shower chair, cleaning wipes. Director Personal emailed Romana the [facility] DME form and requested the form be faxed to [phone] with any DME requests. Director Personal to defer to PACT for consults for home care and medical supplies. This check writer salesperson returned Romana's call on this day (12/12/23) at [phone] and left a HIPPA complaint voicemail stating that I got her requests and again reminded her to fax DME requests into [phone]. Plan: - PCSW is kindly cosigning PACT RN to place consult for home PT, OT, RN and SOIL SCIENCE PROFESSOR, urinary cath's, betadine wipes, urinal and body cleaning wipes. Please alert [facility] family is requesting [facility] home care. - PCSW to remain available. /es/ ADELSO Sandoval Primary Care [employer] Signed: 12/12/2023 15:18 Receipt Acknowledged By: 12/15/2023 11:43 /dexter/ DANA AGUIRRE, RN, BSN Staff Nurse --- Original Document --- 12/09/23 SOCIAL WORK PROGRESS NOTE: PCSW received 4 minutes message from requesting a return call regarding discharge planning as she got an unexpected call that Alva needs to discharge. Director Personal placed return call to - Kenny on 12/08/23 and spoke with her. She stated that the hospital [employer] told her they couldn't find a place for so may need to return home. Kenny stated they do not have any DME equipment and would need staffing to help her. Kenny stated they have a friend Ana that is willing to be hired on by home care ([facility]) to provide cares for . Director Personal verbalized understanding and stated I can request a consult be placed for VA paid home care with [facility] once we know what is needed, Kenny verbalized appreciation. Kenny notes they are not set up at home with DME, check writer salesperson stated I would reach out to the hospital senior media planner to complete our Community DME form and [...] home. However she would like to see go to a [place] for short term rehab and is not understanding why the hospital senior media planner is having such a difficult time finding a facility to take him. Director Personal informed I would be calling the hospital [employer] to assist with any discharge plans and will assess the discharge plan more at that time. [facility] [employer] is off on 12/08/23- check writer salesperson called main [employer] line and left a message and called her direct line again on 12/09/23 and left another message, waiting return call. had no further questions on 12/08/23 during call. PCSW to remain available. /dexter/ Ellen Craig [facility] Primary Care [employer] Signed: 12/09/2023 10:20 12/12/2023 ADDENDUM STATUS: COMPLETED Director Personal received return call from hospital [employer]. Director Personal placed return call and left a HIPPA compliant message on an identified voicemail requesting a return call at my direct line, awiting return call. /dexter/ ADELSO Sandoval Primary Care [employer] Signed: 12/12/2023 08:44 ELLEN CRAIG [place] ([facility]) Dec 09, 2023 10:19 AM SOCIAL WORK NOTE: LOCAL TITLE: SOCIAL WORK PROGRESS NOTE STANDARD TITLE: SOCIAL WORK NOTE DATE OF NOTE: DEC 09, 2023@10:19 ENTRY DATE: DEC 09, 2023@10:19:37 AUTHOR: ELLEN CRAIG EXP COSIGNER: URGENCY: STATUS: COMPLETED SOCIAL WORK PROGRESS NOTE Has ADDENDA PCSW received 4 minutes message from requesting a return call regarding discharge planning as she got an unexpected call that needs to discharge. Director Personal placed return call to - Kenny on 12/08/23 and spoke with her. She stated that the hospital [employer] told her they couldn't find a place for Alva so may need to return home. Kenny stated they do not have any DME equipment and would need staffing to help her. Kenny stated they have a friend Ana that is willing to be hired on by home care ([facility]) to provide cares for Alva. Director Personal verbalized understanding and stated I can request a consult be placed for VA paid home care with [facility] once we know what is needed, Kenny verbalized appreciation. Kenny notes they are not set up at home with DME, check writer salesperson stated I would reach out to the hospital senior media planner to complete our Community DME form and [...] home. However she would like to see go to [place] for [place] term rehab and is not understanding why the hospital senior media planner is having such a difficult time finding a facility to take him. Director Personal informed I would be calling the hospital [employer] to assist with any discharge plans and will assess the discharge plan more at that time. [facility] [employer] is off on 12/08/23- check writer salesperson called main [employer] line and left a message and called her direct line again on 12/09/23 and left another message, waiting return call. had no further questions on 12/08/23 during call. PCSW to remain available. /dexter/ Ellen Craig [facility] Primary Care [employer] Signed: 12/09/2023 10:20 12/12/2023 ADDENDUM STATUS: COMPLETED Director Personal received return call from hospital [employer]. Director Personal placed return call and left a HIPPA compliant message on an identified voicemail requesting a return call at my direct line, awiting return call. /adriano Craig [facility] Primary Care [employer] Signed: 12/12/2023 08:44 12/12/2023 ADDENDUM STATUS: COMPLETED PCSW received spoke with Romana- the hospital [employer] on this day (12/12/23) stating that is currently on a 1:1 at the hospital which is why they haven't been able [place]. Romana stated that they may not find placement, they are waiting to hear back [place] but if not then Alva will be discharging home and they will need home care. Director Personal verbalized understanding and stated that we can get DME and Home Care through [facility] but it was going to be minimal home care and DME may take a while to set up, Romana verbalized understanding. We also discussed [facility], neither of which are appropriate for Alva at this time. Romana is going to talk with about home care and DME and call check writer salesperson back. Director Personal received a return call from hospital [employer] and her message stated they are still [place], but the 's spouse didn't tell them he was a 1:1 so she was not sure if they would accept . She stated that the would like to move forward with DME and home care planning. She notes the needs the following: Home PT, OT, RN and SOIL SCIENCE PROFESSOR and DME: hospital bed, urinary cath's, betadine wipes, urinal, bath/shower chair, cleaning wipes. Director Personal emailed Romana the [facility] DME form and requested the form be faxed to [phone] with any DME requests. Director Personal to defer to PACT for consults for home care and medical supplies. This check writer salesperson returned Romana's call on this day (12/12/23) at [phone] and left a HIPPA complaint voicemail stating that I got her requests and again reminded her to fax DME requests into [phone]. Plan: - PCSW is kindly cosigning PACT RN to place consult for home PT, OT, RN and SOIL SCIENCE PROFESSOR, urinary cath's, betadine wipes, urinal and body cleaning wipes. Please alert [facility] family is requesting [facility] home care. - PCSW to remain available. /dexter/ ADELSO Sandoval Primary Care [employer] Signed: 12/12/2023 15:18 Receipt Acknowledged By: * AWAITING SIGNATURE * DANA AGUIRRE ADRIANA D [place] ([facility])
--- OUTSIDE RECORDS SUMMARY | 2024-01-23 10:36 | XMS_ITS | Encounter Summary ---
Author Name [facility] [place] [facility] [place] Address [address], [place] [address] Care Team Providers Care Guest Room Attendant Name Role Phone HAYLEY GOLDSTEIN Primary Care Provider Unavailabl e Insurance [...] PART A Jul 21, 2007 PART A [id number] [phone] PRATEEK COHN PATIENT Selected Encounter This section includes the information on record at [place] for the Encounter. Date/Time Encounter Type Encounter Description Reason Pro vider Source Dec 13, 2023 11:59 AM Outpatient Encounter TELEPHONE PRIMARY CARE IHE Encounter Template Text not used by [place] Plan of Treatment: Future Appointments (+ 6 months) and Future Tests (+/- 45 days) The Plan of Treatment section includes future care activities for the patient from all [place] treatmentfacilities. This section includes future appointments and future orders which are active, pending or scheduled. Future Appointments This section includes appointments that were scheduled to occur 6 months from the date of the Encounter, up to a maximum of 20 appointments. The data comes from all [place] treatment facilities. Appointment Date/Time Appointment Type Appointme nt Facility Name Dec 29, 2023 07:00 AM [facility]ONE [facility] Jan 11, 2024 01:00 PM AMBULATORY - MEDICINE [facility] ([facility]) Jan 11, 2024 02:30 PM AMBULATORY - PS[facility]CHIATRY [facility] ([facility]) Jan 31, 2024 09:00 AM AMBULATORY - PS[facility]CHIATRY [facility] [place] ([facility]) Jan 31, 2024 09:01 AM AMB[facility]ORY [place] [facility] Active, Pending, and Scheduled Orders This section includes a listing of several types of active, pending, and scheduled orders, including clinic medications orders, diagnostic test orders, procedure orders and consult orders; where the start date of the order is 45 days before the date of the Encounter or 45 days after the date of theEncounter. The data comes from all [place] treatment facilities. Test Date/Time Test Type Test Details Facility Name Jan 11, 2024 04:27 PM Consult Order MH OUTPT-N EUROPSYCHOLOGY Cons Scarifier Operator's Choice [place] ([facility]) Social History: Smoking Status (Most current) and [...] 01, 2017 02:51 PM LIFETIME NON-TOBACCO USER [facility] Tobacco Use History This section includes a history of the smoking, or tobacco-related health factors, that were collected on or before the date of the Encounter. The data comes from the [place] facility where the Encounter took place. Date/Time Smoking Status/Tobacco Use Comment F acility Aug 10, 2016 09:08 AM FORMER TOBACCO USER 7Y OR GREATE R [facility] Aug 10, 2016 09:08 AM LIFETIME NON-TOBACCO USER [facility] Sep 06, 2014 08:19 AM FORMER TOBACCO USER 7Y OR GREATE R [facility] Dec 09, 2011 01:28 PM FORMER TOBACCO USER 7Y OR GREATE R [facility] Encounter Notes: All associated encounter notes This section contains the clinical notes associated to the Encounter. Date/Time Encounter Note(s) Provider Source Dec 13, 2023 11:59 AM SOCIAL WORK NOTE: LOCAL TITLE: SW SOCIAL WORK PROGRESS NOTE STANDARD TITLE: SOCIAL WORK NOTE DATE OF NOTE: DEC 13, 2023@11:59 ENTRY DATE: DEC 13, 2023@11:59:07 AUTHOR: ELLEN LEON COSIGNER: URGENCY: STATUS: COMPLETED PCSW received message from [employer] stating she does not think she needs home RN for [place] when he returns home and she needs a ramp and gait belt. This script writer placed return call to her on this day (12/13/23) at [phone] and spoke with her regarding discharge plan. Kenny- Emili's stated that her son is coming home for 1/2 weeks and she feels that between the 2 of them they wouldn't need the home nursing. Mine Car Dispatcher review with spouse that it may take awhile for VA to get home care ordered and in the home and suggested she consider having the consult placed, meet with the homeopathic doctor and then work with them on how often the home care comes out and when they start. Kenny stated that sounded like a good plan and agreed to keep the request for home RN and FACING BASTER (along with PT and OT). Kenny also stated she needs a ramp, pivot disk and gait belt, script writer verbalized understanding and deferred to hospital Authorization Manager as their therapist is going to be the one placing the orders. Mine Car Dispatcher informed Kenny I would place a call and talk with [facility] Authorization Manager about requesting this from the hospital therapy staff, she verbalized understanding. Kenny- Emili's spouse had no further questions at the time of visit. Mine Car Dispatcher then placed call to Hayley the [facility] Authorization Manager, provided above update. She is going to request the order for ramp, and gait belt and discuss the pivot disk option with therapy. She noted she is having a difficult time getting the therapist to complete the form but will approach them again today. Hayley had no further questions at the time of visit. PCSW to remain available. /dexter/ ADELSO Sandoval Primary Care Authorization Manager Signed: 12/13/2023 11:59 ELLEN LEON ([facility])
--- OUTSIDE RECORDS SUMMARY | 2024-01-23 10:36 | XMS_ITS | Continuity of Care Document ---
Author Name [facility] Organization [facility] Care Team Providers Care Investor Relations Manager Name Role Phone [facility] Unavailable Unavailable Problems Combined list of problems from Department of [facility] and [facility] facilities. It does not include entries that were removed or entered in error. 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 [facility] ([facility]) Atypical Chest Pain (ICD-9-CM 786.59) Inactive Condition 09/07/2021 [facility] Elevated blood pressure reading without diagnosis of hypertension Inactive Condition 09/07/2021 [facility] Routine General Medical Examination at a Health Care Facility * Inactive Condition 09/07/2021 [facility] Seasonal allergy Inactive Condition 09/07/2021 [facility] 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) Inactive Condition 09/07/2021 [facility] Diagnosis: ICD-10-CM F03.90 Unsp dementia, unsp severity, without beh/psych/mood/an x Active Diagnosis [facility] ([facility]) Diagnosis: ICD-10-CM S06.6X9S Traum subrac hem w LOC of unsp duration, sequela Active Diagnosis [facility] ([facility]) Diagnosis: ICD-10-CM Z74.09 Other reduced mobility Active Diagnosis [facility] Diagnosis: ICD-10-CM S06.2XAA Diffuse TBI with LOC status unknown, initial encounter Active Diagnosis [facility] ([facility]) Medications Combined list of outpatient medications from Department of [facility] and [facility] facilities.Medications provided include 1) outpatient medications from the last 15 months, and 2) patient-reported medications. Medication Details Route Status Patient Instructions Prescription Expires Prescription Number Last Dispense Date Ordering Provider Order Date Order Qty Source LUBRICATING JELLY,TOP,B ACTERIOSTAT IC LUBRICAT ING JELLY,TO P,BACTER IOSTATIC Active APPLY JELLY TOPICALL Y DIRECTED FOR LUBRICAT ION FOR LUBRICAT ION Dec 26, 2023 120 Dec 26, 2024 [id number] Dec 27, 2023 Gurjit GOLDSTEIN YUMI WADSWORTH [facility] TOPICA L ACTIVE 12/26/2024 [id number] 4 [place]ST[place],AL ICIA ANANTH 2023 120 [facility] ([facility]) POVIDONE IODINE 10% SWABSTICK,T OP POVIDONE IODINE 10% SWABSTIC K,TOP Active APPLY 1 SWAB FOUR TIMES A DAY FOR INTERMIT TENT CATHING INTERMIT TENT CATHING. Dec 26, 2023 120 Dec 26, 2024 [id number] Dec 27, 2023 Gurjit GOLDSTEIN ANANTH [facility]) TOPICA L ACTIVE 12/26/2024 [id number] 4 TRISTON,AL ICIA ANANTH 2023 120 [facility] ([facility]) SILDENAFIL CITRATE 25MG TAB SILDENAF [place] CITRATE 25MG TAB TAKE ONE TABLET BY MOUTH WEEKLY NEEDED FOR ERECTILE DYSFUNCT ION FOR ERECTILE DYSFUNCT ION Jan 11, 2023 18 Jan 12, 2024 [id number] Jan 11, 2023 Gurjit GOLDSTEIN ANANTH [facility]) ORAL 01/12/2024 [id number] 3 [place],AL ICIA ANANTH 2022 18 [facility] ([facility]) Immunizations Combined list of available immunizations from the Department of [facility] and [facility] facilities. 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 Vital Sign Value Date Comments Source Encounters Combined list of: 1) Encounters from Department of Veterans Affairs facilities going back up to thelast 18 months. 2) Encounters from the Department of Defense facilities going back up to 280 months. Location Location Details Encounter Type Encounter Number Reason For Visit Attending Provider ADM Date DC Date Status Disposition Source [place] [facility] Outpatient Encounter [id number] MUNA HAQ 08[place]02 [place] [facility] [place] [facility] En[facility] [id number] 08/05 [place] [facility] [place] [facility] [id number] 08/05 [place] [facility] [place] [facility] [id number] 09/09 [place] [facility] [place] [facility] [id number] 01/07 [place] [facility] [place] [facility] [id number] 03/30 [place] [facility] [place] [facility] [id number] 05/26 [place] [facility] [place] [facility] En[facility] [id number] 07/19 [place] [facility] [place] [facility] [id number] 09/20 [place] [facility] [place] [facility] [id number] 11/22 [place] [facility] [place] [facility] [id number] 11/29 [place] [facility] [place] [facility] En[facility] [id number] PARI ESPINOSA 11/30 [place] [facility] [place] [facility] [id number] 12/01 [place] [facility] [place] [facility] En[facility] [id number] 12/05 [place] [facility] [place] [facility] [place] [facility]counter [id number] 12/08 [place] [facility] [place] [facility] Out[place] Encounter [id number] 12/12 [place] [facility] PRO PHONE CALL 21-30 MIN [id number] Diagnos is: ICD-10- CM S06.2XA A Diffuse TBI with LOC status unknown , initial encount er
DARVIN AGUIRRE 12/14 [facility] ([facility] [place] [facility] Outpatient Encounter [id number] 12/19 [place] [facility] [place] [facility] CASE MANAGEMENT [id number] Diagnos is: ICD-10- CM Z74.09 Other reduced mobilit y
LAILA KING 12[facility] [place] [facility] CASE MANAGEMENT [id number] Diagnos is: ICD-10- CM Z74.09 Other reduced mobilit y
LAILA KING 12/20 [place] [facility] [place] [facility] Out[place] Encounter [id number] 12/22 [place] [facility] [place] [facility] Out[place] Encounter [id number] 12/22 [place] [facility] [place] [facility] Outpatient Encounter [id number] 12/22 [place] [facility] [place] [facility] Outpatient Encounter [id number] Gurjit PATHAK 12/22 [place] [facility] [place] [facility] Out[place] Encounter [id number] 12/29 [place] [facility] [place] [facility] Outpatient Encounter [id number] 01/01 [place] [facility] ([facility] OFFICE O/P EST HI 40 MIN [id number] Diagnos is: ICD-10- CM S06.6X9 S Traum subrac hem w LOC of unsp duratio n, sequela
HORACE GOLDSTEIN CIA 01/10 [facility] ([facility] Outpatient Encounter [id number] 01/10 [facility] ([facility] HEALTH ASSESS BY NON-MD [id number] Diagnos is: ICD-10- CM F03.90 Unsp dementi a, unsp severit y, without beh/psy ch/mood /anx
CLEMENT GIRON ES D 01/10 [facility] ([facility] Outpatient Encounter [id number] HORACE GOLDSTEIN CIA 01/10 [facility] Social History Combined list of available smoking, tobacco, and other social history from Department of Defense and Veterans Affairs facilities. 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 Additional future care activities may be listed in the Assessment and Plan section. Date/Time Care Activity Care Activity Detail Facili ty 01/31/2024 AMBULATORY - PSYCHIATRY AMBULATORY - PSYC [facility]ATRY [facility] 01/31/2024 [facility]BUL[facility]24 Consult Order MH OUTPT-NEUROPS YCHOLOGY Cons Set Up And Charger's Choice [facility] ([facility])
--- OUTSIDE RECORDS SUMMARY | 2024-01-23 10:36 | XMS_ITS | Encounter Summary ---
Author Name [facility] Address [address], [place] [address] Care Team Providers Care Consulting Manager Name Role Phone ROMANA GOLDSTEIN Primary Care [...] PART A Jul 21, 2007 PART A [id number] [phone] PRATEEK COHN PATIENT Selected Encounter This section includes the information on record at [place] for the Encounter. Date/Time Encounter Type Encounter Description Reason Pro vider Source Nov 30, 2023 03:31 PM Outpatient Encounter TELEPHONE TRIAGE IHE Encounter Template Text not used by [place] Plan of Treatment: Future Appointments (+ 6 months) and Future Tests (+/- 45 days) The Plan of Treatment section includes future care activities for the patient from all [place] treatmentfacilities. This section includes future appointments and future orders which are active, pending or scheduled. Future Appointments This section includes appointments that were scheduled to occur 6 months from the date of the Encounter, up to a maximum of 20 appointments. The data comes from all [place] treatment facilities. Appointment Date/Time Appointment Type Appointme nt Facility Name Dec 01, 2023 09:30 AM AM[place]ORY - NONE [place] [facility] Dec 29, 2023 07:00 AM AMBULATORY - NONE [place] [facility] Jan 11, 2024 01:00 PM AMBULATORY - MEDICINE [place] [facility] Jan 11, 2024 02:30 PM AMBULATORY - PSYCHIATRY [facility] Jan 31, 2024 09:00 AM AMBULATORY - PSYCHIATRY [facility] [place] [facility] Jan 31, 2024 09:01 AM AMBULATORY - PSYCHIATRY [place] [facility] [facility] Active, Pending, and Scheduled Orders This section includes a listing of several types of active, pending, and scheduled orders, including clinic medications orders, diagnostic test orders, procedure orders and consult orders; where the start date of the order is 45 days before the date of the Encounter or 45 days after the date of theEncounter. The data comes from all [place] treatment facilities. Test Date/Time Test Type Test Details Facility Name Jan 11, 2024 04:27 PM Consult Order OUTPT-N EUROPSYCHOLOGY Cons Coating Manager's [facility] ([facility]) Social History: Smoking Status (Most current) and Tobacco Use (All prior to encounter date) This section includes the most current, and the historical, smoking and tobacco- related health factors from the [place] facility where the Encounter took place. Current Smoking Status This section includes the most current smoking, or tobacco-related health factor, from the [place] facility where the Encounter took place. Date/Time Current Smoking Status Comment Facil ity Dec 01, 2017 02:51 PM LIFETIME NON-TOBACCO USER [facility] Tobacco Use History This section includes a history of the smoking, or tobacco-related health factors, that were collected on or before the date of the Encounter. The data comes from the [place] facility where the Encounter took place. Date/Time Smoking Status/Tobacco Use Comment F acility Aug 10, 2016 09:08 AM FORMER TOBACCO USER 7Y OR GREATE R [facility] Aug 10, 2016 09:08 AM LIFETIME NON-TOBACCO USER [facility] Sep 06, 2014 08:19 AM FORMER TOBACCO USER 7Y OR GREATE R [facility] Dec 09, 2011 01:28 PM FORMER TOBACCO USER 7Y OR GREATE R [facility] Encounter Notes: All associated encounter notes This section contains the clinical notes associated to the Encounter. Date/Time Encounter Note(s) Provider Source Dec 02, 2023 11:13 AM ADDENDUM: LOCAL TITLE: Addendum STANDARD TITLE: ADDENDUM DATE OF NOTE: DEC 02, 2023@11:13:19 ENTRY DATE: DEC 02, 2023@11:13:21 AUTHOR: BEBETO CASH COSIGNER: URGENCY: STATUS: COMPLETED Phoned . Spoke with MEGAN Trevizo. [place] is still admitted to [facility]. -Karoline notes that the [facility] is contacting the [place] to discuss short term Rehab. -Karoline was with the impression that [facility] and gotten [facility] for out of network short term rehab placement. -Grommet Man explained that he is unable to locate any notes regarding the rehab placemnt. PLAN: -Alerting PCSW to request from [facility] for short term rehab placement Phone call: 14 min /dexter/ Bebeto Cash RN [facility] Signed: 12/02/2023 11:20 Receipt Acknowledged By: 12/02/2023 12:05 /dexter/ ADELSO Sandoval Primary Care Condenser Cleaner --- Original Document --- 11/30/23 CCC: SCHEDULING ADMINISTRATION: Primary Care Call Center Other: B[facility] Lamas called stating that the is requesting chcf. Cydney can be contacted at the listed number below for any additional information. This note was created by a 3 [place] [facility] ABDIAZIZ/RUTH. Please do not alert this investment underwriter by adding as a signer for future communications. Alerts are not monitored by this user, please reach out to [place] [facility] Leadership instead if indicated. /dexter/ REX ESCOBEDO MSA,[facility] [employer] [facility] Signed: 11/30/2023 15:35 Receipt Acknowledged By: 12/02/2023 11:13 /dexter/ Bebeto Cash RN [facility] for BRAYDEN POOLEON M [facility] Nov 30, 2023 03:31 PM ADMINISTRATIVE NOT E: LOCAL TITLE: CCC: SCHEDULING ADMINISTRATION STANDARD TITLE: ADMINISTRATIVE NOTE DATE OF NOTE: NOV 30, 2023@15:31 ENTRY DATE: NOV 30, 2023@15:31:52 AUTHOR: REX ESCOBEDO EXP COSIGNER: URGENCY: STATUS: COMPLETED CCC: SCHEDULING ADMINISTRATION Has ADDENDA Primary Care Call Center Other: [facility] Lamas called stating that the is requesting chcf. Cydney can be contacted at the listed number below for any additional information. This note was created by a 3 [facility] Call Center ABDIAZIZ/RUTH. Please do not alert this investment underwriter by adding as a signer for future communications. Alerts are not monitored by this user, please reach out to [place] [facility] Leadership instead if indicated. /dexter/ REX ESCOBEDO MSA,[facility] Signed: 11/30/2023 15:35 Receipt Acknowledged By: 12/02/2023 11:13 /dexter/ Bebeto Cash RN [facility] for DANA AGUIRRE 12/02/2023 ADDENDUM STATUS: COMPLETED Phoned [place]. Spoke with MEGAN Trevizo. is still admitted to [facility]. -Karoline notes that the [facility] to discuss [facility]. -Karoline was with the impression that [place] has already spoken with the [facility] and gotten approval for out of network short term rehab placement. -Grommet Man explained that he is unable to locate any notes regarding the rehab placemnt. PLAN: -Alerting PCSW to request from [facility] for short term rehab placement Phone call: 14 min /dexter/ Bebeto Cash RN [facility] Signed: 12/02/2023 11:20 Receipt Acknowledged By: * AWAITING SIGNATURE * ELLEN LEON LAPRISHA L [facility]
--- OUTSIDE RECORDS SUMMARY | 2024-01-23 10:36 | XMS_ITS | Encounter Summary ---
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 Date/Time Encounter Type Encounter Description Reason Provider Source Dec 01, 2023 09:30 AM Outpatient Encounter ADMIN PAT ACTIVTIES (VINNIENONCT) OZIEL ESPINOSA Tiny Encounter Template Text not used by [place] Plan of Treatment: Future Appointments (+ 6 months) and Future Tests (+/- 45 days) The Plan of Treatment section includes future care activities for the patient from all [facility] treatmentfacilities. This section includes future appointments and future orders which are active, pending or scheduled. Future Appointments This section includes appointments that were scheduled to occur 6 months from the date of the Encounter, up to a maximum of 20 appointments. The data comes from all [place] treatment [place]. Appointment Date/Time Appointment Type Appointme nt Facility Name Dec 29, 2023 07:00 AM AMBULATORY - NONE [facility] Jan 11, 2024 01:00 PM AMBULATORY - MEDICINE [place] ([facility]) Jan 11, 2024 02:30 PM AMBULATORY - PSYCHIATRY [facility] ([facility]) Jan 31, 2024 09:00 AM AMBULATORY - PS[facility]CHIATRY [place] ([facility]) Jan 31, 2024 09:01 AM AMBULATORY - PS[place]CHIATRY [place] [facility] Active, Pending, and Scheduled Orders This section includes a listing of several types of active, pending, and scheduled orders, including clinic medications orders, diagnostic test orders, procedure orders and consult orders; where the start date of the order is 45 days before the date of the Encounter or 45 days after the date of theEncounter. The data comes from all [facility]. 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 The data comes from the [place] facility where the Encounter took place. Date/Time Smoking Status/Tobacco Use Comment F acility Aug 10, 2016 09:08 AM FORMER TOBACCO USER 7Y OR GREATE R [facility] Aug 10, 2016 09:08 AM LIFETIME NON-TOBACCO USER [facility] Sep 06, 2014 08:19 AM FORMER TOBACCO USER 7Y OR GREATE R [facility] Dec 09, 2011 01:28 PM FORMER TOBACCO USER 7 OR [facility] R [facility] Encounter Notes: All associated encounter notes This section contains the clinical notes associated to the Encounter. Date/Time Encounter Note(s) Provider Source Dec 27, 2023 02:37 PM ADDENDUM: LOCAL TITLE: Addendum STANDARD TITLE: ADDENDUM DATE OF NOTE: DEC 27, 2023@14:37 ENTRY DATE: DEC 27, 2023@14:37:01 AUTHOR: OZIEL ESPINOSA COSIGNER: URGENCY: STATUS: COMPLETED HOSPITAL DISCHARGE CARE COORDINATION NOTE Hospital Name: [facility] Admit date: 11/23/23 Discharge date: 12/27/23 Level of Care: Critical Primary Diagnosis: Fracture Ilium Closed Initial Left Discharge Disposition: Home-Health Care [facility] Discharge provider recommends and notes the following: REASON FOR ADMISSION Anemia Contusion Buttock Initial Subarachnoid Hemorrhage With Loss Of Conscious Initial ([facility]) Fracture Acetabulum Closed Initial Left (HCC) Fracture Ilium Closed Initial Left (HCC) History Of Falling Other Shock (Hemorrhagic Shock) (HCC) Retroperitoneal Hematoma HOSPITAL COURSE #1 Status post Fall 6 feet from Ladder Mr. Grayson was transported to [facility] as a level red trauma for further evaluation and management of injuries sustained when he fell from a ladder. CT scans of the head, spine, chest, abdomen, and pelvis were obtained as well as plain films. He was noted to have injuries listed below. He was admitted to the surgical intensive care unit. The following day a tertiary trauma survey was completed which revealed no new injuries. #2 Subarachnoid Hematoma Trauma Without Loss Of Consciousness Initial #3 Contusion Scalp Initial Left frontal lobe SAH Large left frontal scalp hematoma Neurosurgery Chief C service consulted. Initial management recommendations included keeping systolic blood pressure less than 160 and head of bed elevated. Repeat head CT in 6 hours the following morning showed interval increase in the left ventricle and intraparenchymal hemorrhages. Additional head CT was obtained 48 later on 12/11 and stable. He was cleared for DVT prophylaxis. No further interventions were required. He had a repeat head CT while in the hospital which was read by neurosurgery and showed the subarachnoid hemorrhage seen on 12/01/2023 remains absent. They will follow up with him over the phone. #4 Fracture Rib One Open Initial Left #5 Atelectasis #6 Effusion Pleural Left anterior 6th rib fracture He was initiated on trauma rib fracture protocol. Chest x-rays were monitored closely. He continued with pulmonary hygiene throughout hospitalization. No follow up needed at discharge due to length of hospitalization. #7 Fracture Pelvis Multiple Closed With Stable Disruption Pelvis Ring Initial (HCC) #8 Fracture Acetabulum Other Closed Initial Left (HCC) #9 Fracture Ilium Closed Initial Left (HCC) Multiple comminuted fractures of left anterior and posterior pubic rami, acetabulum, iliac wing extending to involve the left sacroiliac joint Orthopedic Trauma Service was consulted (Dr. Dietrich's OTS 4). Traction pin was placed and he was taken to the operating room on 11/24 for ORIF of the acetabulum. Weightbearing restrictions include touchdown weight-bearing to the left lower extremity. Inna were removed at surgical site on 12/15. He is scheduled for a follow up with Dr. Higuera on 01/04/24. #10 Injury Blood Vessel Abdomen Lower Back Pelvis Initial #11 Anemia Posthemorrhagic Acute (Blood Loss Anemia) Moderate hemorrhage in the left retroperitoneum and pelvis tracking in left anterior perivesical space and along the anterior bladder wall Intramuscular hematomas in the left psoas, left iliacus and left gluteus minimus and medius Hemoglobin values were monitored serially. He received a total of 7 units of packed red blood cells, 2 units FFP, 2 units platelets during hospitalization and 2 units cell salvage. #12 Thrombosis Deep Vein Lower Extremity Left (HCC) Acute L-Soleal vein DVT He was unable to receive chemical DVT prophylaxis for an extended period of time due to head bleed. He underwent serial ultrasound imaging of bilateral lower extremities which eventually showed improvement of the acute DVT in the left soleal vein on small adjacent venous branch. Vascular Medicine was consulted and recommended a final US on 12/18 which showed stable short segment acute DVT with no extension. Vascular recommended no home going anticoagulation. #13 Encephalopathy Metabolic #14 Delirium Geriatric Medicine was consulted and followed along throughout hospitalization. They recommended initiation of ramelteon and suvorexant to help improve sleep. Seroquel as needed was ordered and eventually tapered down to a small PRN dose. #15 Dysphagia Occupational therapy dysphagia service consulted and followed along. Diet was adjusted as he progressed. He was eventually advanced to a regular diet on 12/20 with medications given whole with pureed bites. #16 Retention Urinary After indwelling urinary catheter was removed, he continued with urinary retention throughout hospitalization. He was initiated on Flomax and finasteride. At the time of discharge, he was still requiring in and out catheterization for retention. He will require Urology follow-up. #17 Overweight Body Mass Index 25-29.9 Adult Physical Medicine And Rehabilitation was consulted for evaluation and provided physical and occupational therapy services. It was recommended that he continue with skilled therapy after dismissal. Ultimately, it was decided that he would discharge home with home health care services (care home, health aide, PT/OT). Services, equipment, and adaptations for the home were made prior to dismissal by the [facility]. At the time of discharge, he was tolerating a regular diet with adequate intake, had no pain, was mobilizing with assistance and assisted devices, had adequate urine output (intermittent catheterization by ), and regular bowel function. He was discharged home on 12/26 with home health care through the [place]... ACTIVE ISSUES REQUIRING FOLLOW UP ORTHOPEDIC RECOMMENDATIONS: MOBILITY (left lower extremity): You should remain TOUCH weight bearing status until advised by a physician, using a walker or crutches for assistance with ambulation. You may rest the left leg on the ground, but should avoid transferring your weight through the left leg. You should keep your lower extremity elevated at or above the level of your heart to help decrease swelling and pain. You are to keep your heel off the bed at all times to prevent pressure ulcers from forming. You will continue with physical therapy and rehabilitation exercises as described in the hospital. *These restrictions will be in place for 12 weeks from surgery. PAIN: Per primary service. BLOOD CLOT PROPHYLAXIS: You were diagnosed with this provoked DVT secondary to femur fracture. Your follow up lower extremity ultrasound was stable with no proximal extension noted. Vascular medicine recommends NO need for anticoagulation post discharge.You have been instructed in the signs and symptoms of deep venous thrombosis, including calf swelling, pain or redness, fever, chills or sweats. You have been instructed on the signs and symptoms of pulmonary embolism including chest pain or shortness of breath. Should you develop any of the above symptoms, you should contact Dr. Higuera's Service immediately and/or visit an emergency room. SURGICAL INCISION: You have a surgical incision to the left hip. The incision should be monitored closely for any changes that would be concerning for infection including increased redness, any drainage or increased pain or tenderness around the surgical site. You should also monitor for systemic signs of infection such as fever, chills or night sweats. If these findings are noted, patient should contact Dr. Higuera's team immediately to discuss next steps in treatment. You should keep the incision clean and dry. You should change the dressings over the wound as needed to keep it clean and dry. You may shower getting the surgical site wet, providing that you have had two consecutive days of a dry wound. However, the patient was advised not to submerge the wound under water in bath tubs, swimming pools, or hot tubs for at least 3 weeks following the date of surgery (until fully healed and all scabbing has resolved) . Please call with any concerns regarding the surgical incision. FOLLOW UP: You will need repeat x-rays of the pelvis to include AP and Judet views at 6 weeks post surgery (around 01/06/2024). An order for these images has been included in your discharge paperwork. Please complete these images locally and either have them pushed to the [facility] or sent to Dr. Higuera's team via disc for review. You will be scheduled for an in person follow up visit at 12 weeks post surgery with repeat imaging at which time advancement to your weight bearing will be discussed. Please contact Dr. Higuera's team with any questions regarding follow up plan at [phone]. NO FOLLOW UP REQUIRED WITH TRAUMA-CRITICAL CARE-GENERAL SURGERY (TCGS): You do not require a follow up appointment at this time. If you are having difficulty, have questions or would like to be seen in follow-up, please call to make an appointment at [phone]. If you need to reach a provider on the TCGS service after hours, you may call the [facility] fiberglass machine operator at and ask to speak the provider production aide for the Trauma-Critical Care-General Surgery (TCGS) Service. If you have forms that need addressed by the surgery team or outside records that need to be uploaded, please email them to [email or web address] or fax them at [phone]. Issue: Follow up with pelvis x-rays What is Needed: pelvis x-rays Follow-up Appointments Arranged: No, but orders provided to family to have them done at a convenient clinic Rody Arriaga APRN, C.N.P., D.N.P. Please review the Discharge Summary for details of the care rendered, as well as any necessary or recommended follow up care the patient may require. Hospital records uploaded to [employer] via [employer]. Records also available to view in JLV within the Imaging and Community Health Summaries and Documents widgets. /es/ Oziel Espinosa MA, PHN, RN-BC assistant head cashier Library Assistant Signed: 12/27/2023 14:44 Receipt Acknowledged By: 12/29/2023 08:49 /es/ Garrett Browning RN [facility] for DANA AGUIRRE 12/28/2023 12:07 /es/ Romana Goldstein APRN, CNP --- Original Document --- 11/23/23 [facility] SELF PRESENTING CARE COORD PLAN NOTE: Emergency Notification Intake Date Presenting to the Facility: Nov Method of Contact: Notified from [employer] worklist Notification ID: [id number] [facility] Referral #: [facility] Name: Hospital: [facility], Address: City: [place], State: [place] Zip Code: Phone : [facility] Facility Point of Contact: Name: GABRIELLE Chief complaint: D649 - Anemia, unspecified Primary Diagnosis: Disposition Admitted Route of Admission: Date of Admission: Nov Admitting Diagnosis: D649 - Anemia, unspecified Community Care Provider: Confirm Level of Care: Notify - Submit for /es/ CORI DEAN MULTI SHARE PROGRAM COORDINATOR Signed: 12/01/2023 09:35 Receipt Acknowledged By: 12/01/2023 16:43 /es/ Oziel Espinosa MA, PHN, RN-BC assistant head cashier Library Assistant 12/01/2023 ADDENDUM STATUS: COMPLETED Hospital Admission Care Coordination Note. Admitted to: [facility] Admission date: 11/23/23 Chief Complaint/Dx: Fracture Ilium Closed Initial Left Level of Care: Critical; 11/27/23 Transferred to Acute Medical Records uploaded by [facility] to [employer] via [employer]. Records also available for viewing in JLV within the Imaging and Community Health Summaries and Documents widgets. Discharge Summary will be uploaded into the Veterans medical record when available. Although appears medically stable for transfer via chart review,neither the patient, nor the patient's civil rights representative have requested transfer to the [facility], nor are there any beds available at the [facility] for the level of care required. /es/ Oziel Espinosa MA, PHN, RN-BC assistant head cashier Library Assistant Signed: 12/01/2023 17:27 Receipt Acknowledged By: 12/02/2023 11:22 /es/ Naveed Cash RN [facility] for DANA AGUIRRE 11/23/2023 ADDENDUM STATUS: COMPLETED [facility] Scanned Document - Addendum. [facility], 11-23-23 ED Notes & 11-25-23 Operative Note. SCANNED DOCUMENT SIGNATURE NOT REQUIRED Electronically Filed: 12/01/2023 by: Oziel Espinosa MA, PHN, RN-BC assistant head cashier Library Assistant 12/02/2023 ADDENDUM STATUS: COMPLETED Phoned [facility]. Spoke with MEGAN Trevizo. DEJAN verified. - is still admitted to [facility] -Current plan is to discharge to [facility] for short term rehab -had the understanding that had authorization for out of network rehab. Was told by [facility] -Aba Tutor informed Karoline there is no record of authorization, but would forward to to review. See Nov 29 CCC:Scheduling note for more information. -Unaware of any f/u needs at this time. -Discussed that any f/u recommended after discharge from Short Term rehab would need a prior authorization -[facility] is not an in-network facility ADDITIONAL [...] be driving and veterans decision making capabilities. -Aba Tutor explained has not seen current provider. It would be best to have an appointment after discharge to discuss memory concerns and evaluations. PCP would not be able to write a letter stating has Alzheimers without an evaluation. PLAN: -SW has been alerted to short term rehab concerns -[facility] and/or SO will reach out to [facility] when is discharging from Rehab to discuss f/u needs and scheduling an appt with PCP. -No other current needs from [facility] at this time. -PCP alerted as FYI for f/u and plan Phone call: 14 min /es/ Naveed Cash RN [facility] Signed: 12/02/2023 11:38 Receipt Acknowledged By: 12/02/2023 11:42 /es/ Romana Goldstein APRN, CNP 12/06/2023 ADDENDUM STATUS: COMPLETED CONTINUED STAY REVIEW Contact Date: 12/06/23 Date of Admission: 11/23/23 Current Length of Stay: 13 days Method of Contact: Other: [facility] Inpatient level of care required: Critical; 11/27/23 [...] vein - Discussed with Dr. Khan (trauma senior science consultant on 12/04) & due to the [...] #9 Fracture Acetabulum Other Closed Initial Left ([facility]) #10 Fracture Pelvis Multiple Closed With Stable Disruption Pelvis Ring Initial ([facility]) #11 Fracture Ilium Closed Initial Left ([facility]) Multiple comminuted fractures of the [...] page the Trauma Service at Addendum @ [id number]: Spoke to Mrs. Grayson this afternoon about [...] review, neither the patient, nor the patient's civil rights representative have requested transfer to the [facility], nor are there any beds available at the [facility] for the level of care required. /dexter/ Oziel Espinosa MA, PHN, RN-BC assistant head cashier Library Assistant Signed: 12/06/2023 09:34 12/09/2023 ADDENDUM STATUS: COMPLETED CONTINUED STAY REVIEW Contact Date: 12/09/23 Date of Admission: 11/23/23 Current Length of Stay: 16 days Method of Contact: Other: [facility] Inpatient level of care required: Critical; 11/27/23 Transferred to Acute Trauma Critical Care and General Surgery note dated, 12/08/23: ASSESSMENT / PLAN Mr. Yliniemi is hospitalized on [facility] Trauma for evaluation and management of: Fracture Ilium Closed Initial Left (HCC). 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 Increase mobility to match ability. Frequent reorientation. Provide moderate level of social and cognitive stimulation. Treat dehydration and constipation. Nonpharmacologic sleep promotion strategies. The above plan of care was discussed with Dr. Coello, HIM senior science consultant. I personally spent a total of 35 minutes providing and coordinating care today. Thank you for the opportunity to care for this patient. We will continue to follow with you. Please page the Geriatrics Consult Service at [phone] with any questions or concerns. Although appears medically stable for transfer via chart review, neither the patient, nor the patient's civil rights representative have requested transfer to the [facility], nor are there any beds available at the [facility] for the level of care required. /dexter/ Oziel Espinosa MA, PHN, RN-BC assistant head cashier Library Assistant Signed: 12/09/2023 13:44 12/16/2023 ADDENDUM STATUS: COMPLETED CONTINUED STAY REVIEW Contact Date: 12/16/23 Date of Admission: 11/23/23 Current Length of Stay: 23 days Method of Contact: Other: [facility] Inpatient level of care required: Critical; 11/27/23 Transferred to Acute Trauma Critical Care and General Surgery note dated, 12/15/23: ASSESSMENT / PLAN Currently assessing for placement versus ongoing with family at assistive devices provided by [place]. Mechanism of Injury: Fell from a 6 ft ladder -11/23: SAS completed -11/24: TTS completed #1 History Of Falling -Care management consulted; SNF referrals pending -PMR PT/OT consulted, following -patient continues on :1 #2 Subarachnoid Hematoma Trauma Without Loss Of Consciousness Subsequent #3 Contusion Scalp Initial Large left frontal scalp hematoma Small cortical hemorrhage vs focal subarachnoid hemorrhage (left frontal lobe - Neurosurgery Chief C consulted - Repeat Head CT (11/23): slight increase in IVH in the occipital horn of the left lateral ventricle -serial head CT's were obtained - 11/[address] showed decreased small amounts of blood products w/o new hemorrhage - started on DVT chemoprophylaxis 30 mg Lovenox bid on 11/29 evening. He was noted to have more significant altered mental status than usual the morning of 11/30. Repeat Head CT obtained and stable, therefore, chemoprophylaxis resumed. Plan for 1 month follow up in [facility] clinic with head CT prior which they have arranged. 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 #5 Thrombosis Deep Vein Lower Extremity Left (HCC) Acute soleal vein DVT; left leg - Currently on Lovenox 30 mg bid for DVT chemoprophylaxis - BLE US (11/27): acute DVT LLE soleal vein - Repeat US Bilateral LE (12/04): unchanged acute DVT in the left soleal vein. -Vascular Medicine consulted 12/12. No need for therapeutic anticoagulation as DVT showing improvement. Repeat imaging next on 12/18. If no proximal extension, no need for therapeutic anticoagulation. #6 Fracture Rib One Closed Initial Left #7 Atelectasis #8 Effusion Pleural Nondisplaced, left 6th rib fracture - Rib fracture protocol completed -difficult to follow secondary to cognition - Continue with encouraging pulmonary hygiene as able (IS/deep breathing/coughing/CPAP) - No follow up required in the [facility] clinic for the one rib fracture #9 Fracture Acetabulum Other Closed Initial Left ([facility]) #10 Fracture Pelvis Multiple Closed With Stable Disruption Pelvis Ring Initial ([facility]) #11 Fracture Ilium Closed Initial Left ([facility]) Multiple comminuted fractures of the left anterior & posterior pubic rami, acetabulum & iliac wing extending into the left SI joint w/ hemorrhage noted in the left retroperitoneum - OTS- 1 consulted - OR (11/24): ORIF of the left associated both column acetabular fracture (Dr. Higuera) - TTWB LLE -inna used to close wounds on 11/25/2023. -OTS-1 will remove inna on 12/16/2023. - PMR PT/OT consulted; due to cognition does not fully understand weight bearing restrictions and a 2 assist currently - two falls with assistance to ground slowly without heavy strike to ground over past few days secondary to trying to get up on his own impulsively - has one to one sitter at bedside - Pelvis x-rays obtained (12/03): surgical hardware intact - Davol drain and vac removed 12/04 -Plan for staple removal 12/15 - Patient non-compliant with TTWB restrictions, continue to encourage compliance. 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 Continue to assess for diet advancement. #18 Retention Urinary - Started on Flomax & Finasteride this admission and have increased to 0.8 mg - On a voiding schedule; will increase to every 4 hours to trial voiding and then bladder scanning every 4 hours prn - goal is to post void residual <400 cc - net negative -1281 urinary output yesterday - net negative -350 as of this morning -offer urinal multiple times per day and before straight cathing Summary: - Diet: adult dysphagia, thin (TNO), soft and bite sized (SB6) - Activity/Exercise: up with assistance, weight bearing restriction to LLE, toe touch - VTE Prophylaxis: Enoxaparin 30 mg BID - Bowel Regimen: Dulcolax, milk of magnesia, MiraLax, Senokot - Void: in and out if he struggles with spontaneous voiding - Pain: Tylenol, Lidoderm patch - Disposition: SNF pending, Working on home health with [facility] benefits if facility is unable to be identified. Please contact the Trauma service with questions at [phone]. Although appears medically stable for transfer via chart review, neither the patient, nor the patient's civil rights representative have requested transfer to the [facility], nor are there any beds available at the [facility] for the level of care required. /dexter/ Oziel Espinosa MA, PHN, RN- assistant head cashier Library Assistant Signed: 12/16/2023 11:42 12/21/2023 ADDENDUM STATUS: COMPLETED CONTINUED STAY REVIEW Contact Date: 12/21/23 Date of Admission: 11/23/23 Current Length of Stay: 28 days Method of Contact: Other: [facility] Inpatient level of care required: Critical; 11/27/23 Transferred to Acute Trauma Critical Care and General Surgery note dated, 12/20/23: ASSESSMENT / PLAN Daily Plan -Continue with encouragement of spontaneous voiding -If patient has spontaneous voiding PLEASE obtain a post void residual (Goal < 400) -Continue I/O as needed -Continue with ambulation, PT/OT -Continue with reorientation/redirection -Appears wants patient to be at home, will discuss with her home going requirements and ensure safety. Mechanism of Injury: Fall from ladder (6ft) #1 Status post Fall 6 feet from Ladder #2 Subarachnoid Hematoma Trauma Without Loss Of Consciousness Initial #3 Contusion Scalp Initial Left frontal lobe SAH Large left frontal scalp hematoma Neurosurgery Chief C service consult appreciated. Repeat CT imaging was obtained and followed by Neurosurgery. Cleared for DVT prophylaxis on 12/11. No additional intervention was determined to be necessary. He is scheduled for a follow up with Neurosurgery with repeat CTH on 12/27. #4 Fracture Rib Single Closed Initial Left #5 Effusion Pleural #6 Atelectasis Left anterior 6th rib fracture CXR last performed on 12/06/23 noted with decreased perihilar and bibasilar atelectasis. He is maintaining saturations on RA in low 90s. Pain control continues prn. We will continue to monitor. #7 Fracture Pelvis Multiple Closed With Stable Disruption Pelvis Ring Initial ([facility]) #8 Fracture Acetabulum Other Closed Initial Left ([facility]) #9 Fracture Ilium Closed Initial Left ([facility]) Multiple comminuted fractures of left anterior and posterior pubic rami, acetabulum, iliac wing extending to involve the left sacroiliac joint S/p ORIF Acetabulum (11/25/23) OTS-1 consult appreciated. TDWB LLE. Patient is having difficulty with understanding WB restrictions. We will continue reminders. PMR continues to follow. He is scheduled for a follow up with Dr. Higuera on 01/04/24. #10 Injury Blood Vessel Abdomen Lower Back Pelvis Initial #11 Anemia Posthemorrhagic Acute (Blood Loss Anemia) Moderate hemorrhage in the left retroperitoneum and pelvis tracking in left anterior perivesical space and along the anterior bladder wall Intramuscular hematomas in the left psoas, left iliacus and left gluteus minimus and medius Hemoglobin stable on last check at 10.4. We will repeat labs as indicated. #12 Thrombosis Deep Vein Lower Extremity Left (HCC) Left Soleal DVT Vascular Medicine consulted. Noted with isolated distal provoked DVT. Recommended repeat US. This was performed today with no noted change. No therapeutic anticoagulation necessary. DVT prophylaxis will continue due to decreased mobility. We will monitor. 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 On Ramelteon and Melatonin. Delirium prevention continuing. We will continue to monitor and await additional recommendations. #17 Dysphagia OT Dysphagia following. He has been cleared for Dysphagia Thin. We will continue to monitor recommendations. #18 Retention Urinary Geriatrics following. He was initiated on Flomax and Finasteride. He has continued to require I/Os. His has declined herman placement given delirium and has elected to continue I/O. At this time, this will continue, however, as he is not completely voiding, with elevated PVR, will require continue I/O at discharge. This will be explained to or will continue if [facility] discharge. We will recommend outpatient Urology follow up. #16 Overweight Body Mass Index 25-29.9 Adult Healthy dietary choices encouraged. Follow up with PCP PLAN New Consults Diet: Adult Diet Dysphagia; Thin (TN0); Soft and Bite-Sized (SB6) Activity: TTWB LLE VTE Prophylaxis: Enoxaparin 30mg BID GI Prophylaxis: not indicated Bowel Regimen: Miralax and Senna Pain: Tylenol and triple cream, lidoderm Antibiotics: not indicated Disposition: Unknown unknown at this time Please page trauma at [phone] with any questions regarding the care of this patient. Thanks. Cosigned by: Alexandra Varela M.D. at 12/20/2023 2:17 PM Although appears medically stable for transfer via chart review, neither the patient, nor the patient's civil rights representative have requested transfer to the [facility], nor are there any beds available at the [facility] for the level of care required. /dexter/ Oziel Espinosa MA, PHN, RN-BC assistant head cashier Library Assistant Signed: 12/21/2023 09:01 12/26/2023 ADDENDUM STATUS: COMPLETED CONTINUED STAY REVIEW Contact Date: 12/26/23 Date of Admission: 11/23/23 Current Length of Stay: 33 days Method of Contact: Other: [facility] Inpatient level of care required: Critical; 11/27/23 Transferred to Acute Trauma Critical Care and General Surgery note dated, 12/25/23: ASSESSMENT / PLAN Diet: Adult Diet Regular Activity: TDWB LLE Pain regimen: Tylenol, triple cream, Lidoderm Bowel regimen: Senna, MiraLAX, bisacodyl p.r. PRN VTE chemoprophylaxis: Enoxaparin 30 mg b.i.d. GI prophylaxis: Not indicated Antibiotics: Not indicated Microbiology: None Dispo: Home with his and home health care on 12/26. SW assisting with wheelchair transportation Today's plans: - Pelvis x-ray obtained today as part of OTS follow up. Will contact their team requesting follow up be completed prior to discharge to simplify follow up and avoid unnecessary and difficult transportation arrangement - Contacted Neurosurgery yesterday requesting head CT and follow up on 12/27 be completed inpatient or delayed. Trauma service will need to contact Neurosurgery on Tuesday - No changes to medical management. #1 Status post Fall 6 feet from Ladder #2 Subarachnoid Hematoma Trauma Without Loss Of Consciousness Initial #3 Contusion Scalp Initial Left frontal lobe SAH Large left frontal scalp hematoma - Neurosurgery Chief C service consulted - Cleared for DVT prophylaxis on 12/11. - No additional intervention necessary. - He is scheduled for a follow up with Neurosurgery with repeat CTH on 12/27. #4 Fracture Rib Single Closed Initial Left #5 Effusion Pleural #6 Atelectasis Left anterior 6th rib fracture - Last CXR 12/05 with decreased perihilar and bibasilar atelectasis. Low lung volumes although this may be related to following directions. Strong inspiratory effort at bedside - No follow up needed at discharge due to length of hospitalization. #7 Fracture Pelvis Multiple Closed With Stable Disruption Pelvis Ring Initial (HCC) #8 Fracture Acetabulum Other Closed Initial Left (HCC) #9 Fracture Ilium Closed Initial Left (HCC) Multiple comminuted fractures of left anterior and posterior pubic rami, acetabulum, iliac wing extending to involve the left sacroiliac joint -S/p ORIF Acetabulum (11/25/23) -OTS-1 consult appreciated -TDWB LLE. -Patient is having difficulty with understanding WB restrictions. We will continue reminders. PMR continues to follow. He is scheduled for a follow up with Dr. Higuera on 01/04/24. -Contacted [facility] with requests to complete follow up in patient given prolonged hospitalization and with difficult transportation needs. Would recommend contact OTS-1 tomorrow to discuss further - 3 view pelvic x-ray obtained, this is in the setting on noncompliance of weightbearing restrictions due to baseline cognitive impairment #10 Injury Blood Vessel Abdomen Lower Back Pelvis Initial #11 Anemia Posthemorrhagic Acute (Blood Loss Anemia) Moderate hemorrhage in the left retroperitoneum and pelvis tracking in left anterior perivesical space and along the anterior bladder wall Intramuscular hematomas in the left psoas, left iliacus and left gluteus minimus and medius -Hemoglobin stable. -We will repeat labs as indicated. #12 Thrombosis Deep Vein Lower Extremity Left (HCC) Left Soleal DVT -Vascular Medicine consulted -Noted with isolated distal provoked DVT. -Repeat US 12/18 with no noted change -No therapeutic anticoagulation necessary. DVT prophylaxis will continue due to decreased mobility. We will monitor. #13 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) #14 Decline Cognitive #15 Encephalopathy Metabolic #16 Delirium Acute -Geriatrics consulted -On Ramelteon and Melatonin -Delirium prevention continuing. #17 Dysphagia -OT Dysphagia following. -Advanced to regular diet 12/20, medications whole with puree #18 Retention Urinary -Initiated on Flomax and Finasteride. -Continues to require I/O catheterization. -Patient's has declined herman placement given delirium and has elected to continue I/O. -Urinary retention improving and patient voiding some on his own. Last PVR 472 mL -Patient intermittently declining medications. Patient's is aware and encouraging patient to take medications are prescribed -Will need outpatient Urology follow up #19 Disposition - Reviewed the discharge plan with the patient's and she is anticipating discharging home on 12/26 - Ramp was installed 12/22 - Hospital bed will arrive Tuesday afternoon - DME urology supplies pended in discharge orders - Wheelchair transportation being arranged by . If this can't be setup, the patient's will provide transportation If you have any questions or concerns please page the Trauma Service at Although appears medically stable for transfer via chart review, neither the patient, nor the patient's civil rights representative have requested transfer to the [facility], nor are there any beds available at the [facility] for the level of care required. CARMELINA=12-27-23 /es/ Oziel Espinosa MA, PHN, RN-BC assistant head cashier Library Assistant Signed: 12/26/2023 12:23 12/27/2023 ADDENDUM STATUS: COMPLETED [facility] Scanned Document - Addendum. [facility], 12-27-23 Hospital DC Summary. SCANNED DOCUMENT SIGNATURE NOT REQUIRED Electronically Filed: 12/27/2023 by: Oziel Espinosa MA, PHN, RN-BC assistant head cashier Library Assistant 12/29/2023 ADDENDUM STATUS: COMPLETED RTC placed/AMSAs notified for hospital f/u with PCP. /dexter/ Garrett Browning RN [facility] Signed: 12/29/2023 08:50 OZIEL ESPINOSA [facility] Dec 02, 2023 11:23 AM ADDENDUM: LOCAL TITLE: Addendum STANDARD TITLE: ADDENDUM DATE OF NOTE: DEC 02, 2023@11:23:17 ENTRY DATE: DEC 02, 2023@11:23:18 AUTHOR: NAVEED CASH COSIGNER: URGENCY: STATUS: COMPLETED Phoned . Spoke with MEGAN Trevizo. DEJAN verified. - is still admitted to [facility] -Current plan is to discharge to [facility] for short term rehab -had the understanding that had authorization for out of network rehab. Was told by [facility] -Aba Tutor informed Karoline there is no record of authorization, but would forward to to review. See Nov 29 CCC:Scheduling note for more information. -Unaware of any f/u needs at this time. -Discussed that any f/u recommended after discharge from Short Term rehab would need a prior authorization -[facility] is not an in-network facility ADDITIONAL [...] be driving and veterans decision making capabilities. -Aba Tutor explained has not seen current provider. It would be best to have an appointment after discharge to discuss memory concerns and evaluations. PCP would not be able to write a letter stating has Alzheimers without an evaluation. PLAN: -SW has been alerted to short term rehab concerns -[place] and/or SO will reach out to [facility] when is discharging from Rehab to discuss f/u needs and scheduling an appt with PCP. -No other current needs from [facility] at this time. -PCP alerted as FYI for f/u and plan Phone call: 14 min /es/ Naveed Cash RN [facility] Signed: 12/02/2023 11:38 Receipt Acknowledged By: 12/02/2023 11:42 /es/ Romana Goldstein APRN, CNP --- Original Document --- 11/23/23 [facility] SELF PRESENTING CARE COORD PLAN NOTE: Emergency Notification Intake Date Presenting to the Facility: Nov Method of Contact: Notified from [employer] worklist Notification ID: [id number] [facility] Referral #: [facility] Name: Hospital: [facility], Address: City: [place], State: [place] Zip Code: Phone : [facility] Facility Point of Contact: Name: GABRIELLE Chief complaint: D649 - Anemia, unspecified Primary Diagnosis: Disposition Admitted Route of Admission: Date of Admission: Nov Admitting Diagnosis: D649 - Anemia, unspecified Community Care Provider: Confirm Level of Care: Notify - Submit for /es/ CORI DEAN MULTI SHARE PROGRAM COORDINATOR Signed: 12/01/2023 09:35 Receipt Acknowledged By: 12/01/2023 16:43 /es/ Oziel Espinosa MA, PHN, RN-BC assistant head cashier Library Assistant 12/01/2023 ADDENDUM STATUS: COMPLETED Hospital Admission Care Coordination Note. Admitted to: [facility] Admission date: 11/23/23 Chief Complaint/Dx: Fracture Ilium Closed Initial Left Level of Care: Critical; 11/27/23 Transferred to Acute Medical Records uploaded by ZAID FREED to [employer] via [employer]. Records also available for viewing in JLV within the Imaging and Community Health Summaries and Documents widgets. Discharge Summary will be uploaded into the [facility] medical record when available. Although appears medically stable for transfer via chart review,neither the patient, nor the patient's civil rights representative have requested transfer to the [facility], nor are there any beds available at the [facility] for the level of care required. /dexter/ Oziel Espinosa MA, PHN, RN-BC assistant head cashier Library Assistant Signed: 12/01/2023 17:27 Receipt Acknowledged By: 12/02/2023 11:22 /dexter/ Naveed Cash RN [facility] for DANA AGUIRRE 11/23/2023 ADDENDUM STATUS: COMPLETED [facility] Imaging Scanned Document - Addendum. [facility], 11-23-23 ED Notes & 11-25-23 Operative Note. SCANNED DOCUMENT SIGNATURE NOT REQUIRED Electronically Filed: 12/01/2023 by: Oziel Espinosa MA, PHN, RN-BC assistant head cashier Library Assistant NAVEED CASH [facility] Dec 01, 2023 05:14 PM ADDENDUM: LOCAL TITLE: Addendum STANDARD TITLE: ADDENDUM DATE OF NOTE: DEC 01, 2023@17:14:31 ENTRY DATE: DEC 01, 2023@17:14:32 AUTHOR: OZIEL ESPINOSA COSIGNER: URGENCY: STATUS: COMPLETED Hospital Admission Care Coordination Note. Admitted to: [facility] Admission date: 11/23/23 Chief Complaint/Dx: Fracture Ilium Closed Initial Left Level of Care: Critical; 11/27/23 Transferred to Acute Medical Records uploaded by ZAID FREED to [employer] via EPSI. Records also available for viewing in JLV within the Imaging and [facility] Health Summaries and Documents widgets. Discharge Summary will be uploaded into the Veterans medical record when available. Although appears medically stable for transfer via chart review,neither the patient, nor the patient's civil rights representative have requested transfer to the [facility], nor are there any beds available at the [facility] for the level of care required. /dexter/ Oziel Espinosa MA, PHN, RN-BC assistant head cashier Library Assistant Signed: 12/01/2023 17:27 Receipt Acknowledged By: 12/02/2023 11:22 /adriano Cash, RN [facility] for DANA AGUIRRE --- Original Document --- 11/23/23 [facility] SELF PRESENTING CARE COORD PLAN NOTE: Emergency Notification Intake Date Presenting to the Facility: Nov Method of Contact: Notified from [employer] worklist Notification ID: [id number] [facility] Referral #: [facility] Name: Hospital: [facility], Address: City: [place], State: [place] Zip Code: Phone : [facility] Facility Point of Contact: Name: GABRIELLE Chief complaint: D649 - Anemia, unspecified Primary Diagnosis: Disposition Admitted Route of Admission: Date of Admission: Nov Admitting Diagnosis: D649 - Anemia, unspecified Community Care Provider: Confirm Level of Care: Notify - Submit for /dexter/ CORI DEAN MULTI SHARE PROGRAM COORDINATOR Signed: 12/01/2023 09:35 Receipt Acknowledged By: 12/01/2023 16:43 /es/ Oziel Espinosa MA, PHN, RN-BC assistant head cashier Library Assistant 11/23/2023 ADDENDUM STATUS: COMPLETED [facility] Imaging Scanned Document - Addendum. [facility], 11-23-23 ED Notes & 11-25-23 Operative Note. SCANNED DOCUMENT SIGNATURE NOT REQUIRED Electronically Filed: 12/01/2023 by: Oziel Espinosa MA, PHN, RN-BC assistant head cashier Library Assistant OZIEL ESPINOSA [facility] Nov 23, 2023 12:45 PM NONVA NOTE: LOCAL TITLE: [facility] SELF PRESENTING CARE COORD PLAN STANDARD TITLE: NONVA NOTE DATE OF NOTE: NOV 23, 2023@12:45 ENTRY DATE: DEC 01, 2023@09:31:19 AUTHOR: CORI DEAN EXP COSIGNER: URGENCY: STATUS: COMPLETED [facility] SELF PRESENTING CARE COORD PLAN NOTE Has ADDENDA Emergency Notification Intake Date Presenting to the Facility: Nov Method of Contact: Notified from [employer] worklist Notification ID: [id number] [facility] Referral #: [facility] Name: Hospital: [facility], Address: City: [place], State: [place] Zip Code: Phone : [facility] Facility Point of Contact: Name: GABRIELLE Chief complaint: D649 - Anemia, unspecified Primary Diagnosis: Disposition Admitted Route of Admission: Date of Admission: Nov Admitting Diagnosis: D649 - Anemia, unspecified Community Care Provider: Confirm Level of Care: Notify - Submit for /dexter/ CORI DEAN MULTI SHARE PROGRAM COORDINATOR Signed: 12/01/2023 09:35 Receipt Acknowledged By: 12/01/2023 16:43 /dexter/ Oziel Espinosa MA, PHN, RN-BC assistant head cashier Library Assistant 12/01/2023 ADDENDUM STATUS: COMPLETED Hospital Admission Care Coordination Note. Admitted to: [facility] Admission date: 11/23/23 Chief Complaint/Dx: Fracture Ilium Closed Initial Left Level of Care: Critical; 11/27/23 Transferred to Acute Medical Records uploaded by ZAID FREED to [employer] via EPSI. Records also available for viewing in JLV within the Imaging and Community Health Summaries and Documents widgets. Discharge Summary will be uploaded into the [facility] medical record when available. Although appears medically stable for transfer via chart review,neither the patient, nor the patient's civil rights representative have requested transfer to the [facility], nor are there any beds available at the [facility] for the level of care required. /es/ Oziel Espinosa MA, PHN, RN-BC assistant head cashier Library Assistant Signed: 12/01/2023 17:27 Receipt Acknowledged By: 12/02/2023 11:22 /dexter/ Naveed Cash RN [facility] for DANA AGUIRRE 11/23/2023 ADDENDUM STATUS: COMPLETED [facility]ist[facility] Imaging Scanned Document - Addendum. [facility], 11-23-23 ED Notes & 11-25-23 Operative Note. SCANNED DOCUMENT SIGNATURE NOT REQUIRED Electronically Filed: 12/01/2023 by: Oziel Espinosa MA, PHN, RN-BC assistant head cashier Library Assistant 12/02/2023 ADDENDUM STATUS: COMPLETED Phoned [place]. Spoke with MEGAN Trevizo. DEJAN verified. -[place] is still admitted to [facility] -Current plan is to discharge to [facility] for short term rehab -had the understanding that had authorization for out of network rehab. Was told by [facility] -Aba Tutor informed Karoline there is no record of authorization, but would forward to to review. See Nov 29 CCC:Scheduling note for more information. -Unaware of any f/u needs at this time. -Discussed that any f/u recommended after discharge from Short Term rehab would need a prior authorization -[facility] is not an in-network facility ADDITIONAL [...] be driving and veterans decision making capabilities. -Aba Tutor explained has not seen current provider. It [...] and plan Phone call: 14 min /dexter/ Naveed Cash RN [facility] Signed: 12/02/2023 11:38 Receipt Acknowledged By: 12/02/2023 11:42 /es/ Romana Goldstein APRN, CNP 12/06/2023 ADDENDUM STATUS: COMPLETED CONTINUED STAY REVIEW Contact Date: 12/06/23 Date of Admission: 11/23/23 Current Length of Stay: 13 days Method of Contact: Other: [facility] Inpatient level of care required: Critical; 11/27/23 [...] vein - Discussed with Dr. Khan (trauma senior science consultant on 12/04) & due to the [...] page the Trauma Service at Addendum @ [phone]: Spoke to Mrs. Grayson this afternoon about [...] review, neither the patient, nor the patient's civil rights representative have requested transfer to the [facility], nor are there any beds available at the [facility] for the level of care required. /dexter/ Oziel Espinosa MA, PHN, RN- assistant head cashier Library Assistant Signed: 12/06/2023 09:34 12/09/2023 ADDENDUM STATUS: COMPLETED CONTINUED STAY REVIEW Contact Date: 12/09/23 Date of Admission: 11/23/23 Current Length of Stay: 16 days Method of Contact: Other: [facility] Inpatient level of care required: Critical; 11/27/23 Transferred to Acute Trauma Critical Care and General Surgery note dated, 12/08/23: ASSESSMENT / PLAN Mr. Grayson is hospitalized on [facility] Trauma for evaluation and management of: Fracture Ilium Closed Initial Left (HCC). 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 Increase mobility to match ability. Frequent reorientation. Provide moderate level of social and cognitive stimulation. Treat dehydration and constipation. Nonpharmacologic sleep promotion strategies. The above plan of care was discussed with Dr. Coello, HIM senior science consultant. I personally spent a total of 35 minutes providing and coordinating care today. Thank you for the opportunity to care for this patient. We will continue to follow with you. Please page the Geriatrics Consult Service at [phone] with any questions or concerns. Although appears medically stable for transfer via chart review, neither the patient, nor the patient's civil rights representative have requested transfer to the [facility], nor are there any beds available at the [facility] for the level of care required. /dexter/ Oziel Espinosa MA, PHN, RN- assistant head cashier Library Assistant Signed: 12/09/2023 13:44 12/16/2023 ADDENDUM STATUS: COMPLETED CONTINUED STAY REVIEW Contact Date: 12/16/23 Date of Admission: 11/23/23 Current Length of Stay: 23 days Method of Contact: Other: [facility] Inpatient level of care required: Critical; 11/27/23 Transferred to Acute Trauma Critical Care and General Surgery note dated, 12/15/23: ASSESSMENT / PLAN Currently assessing for placement versus ongoing with family at assistive devices provided by [place]. Mechanism of Injury: Fell from a 6 ft ladder -11/23: SAS completed -11/24: TTS completed #1 History Of Falling -Care management consulted; SNF referrals pending -PMR PT/OT consulted, following -patient continues on 1:1 #2 Subarachnoid Hematoma Trauma Without Loss Of Consciousness Subsequent #3 Contusion Scalp Initial Large left frontal scalp hematoma Small cortical hemorrhage vs focal subarachnoid hemorrhage (left frontal lobe - Neurosurgery Chief C consulted - Repeat Head CT (11/23): slight increase in IVH in the occipital horn of the left lateral ventricle -serial head CT's were obtained - 11/[address] showed decreased small amounts of blood products w/o new hemorrhage - started on DVT chemoprophylaxis 30 mg Lovenox bid on 11/29 evening. He was noted to have more significant altered mental status than usual the morning of 11/30. Repeat Head CT obtained and stable, therefore, chemoprophylaxis resumed. Plan for 1 month follow up in NS clinic with head CT prior which they have arranged. 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 #5 Thrombosis Deep Vein Lower Extremity Left (HCC) Acute soleal vein DVT; left leg - Currently on Lovenox 30 mg bid for DVT chemoprophylaxis - BLE US (11/27): acute DVT LLE soleal vein - Repeat US Bilateral LE (12/04): unchanged acute DVT in the left soleal vein. -Vascular Medicine consulted 12/12. No need for therapeutic anticoagulation as DVT showing improvement. Repeat imaging next on 12/18. If no proximal extension, no need for therapeutic anticoagulation. #6 Fracture Rib One Closed Initial Left #7 Atelectasis #8 Effusion Pleural Nondisplaced, left 6th rib fracture - Rib fracture protocol completed -difficult to follow secondary to cognition - Continue with encouraging pulmonary hygiene as able (IS/deep breathing/coughing/CPAP) - No follow up required in the [facility] clinic for the one rib fracture #9 Fracture Acetabulum Other Closed Initial Left ([facility]) #10 Fracture Pelvis Multiple Closed With Stable Disruption Pelvis Ring Initial ([facility]) #11 Fracture Ilium Closed Initial Left ([facility]) Multiple comminuted fractures of the left anterior & posterior pubic rami, acetabulum & iliac wing extending into the left SI joint w/ hemorrhage noted in the left retroperitoneum - OTS- 1 consulted - OR (11/24): ORIF of the left associated both column acetabular fracture (Dr. Higuera) - TTWB LLE -inna used to close wounds on 11/25/2023. -OTS-1 will remove inna on 12/16/2023. - PMR PT/OT consulted; due to cognition does not fully understand weight bearing restrictions and a 2 assist currently - two falls with assistance to ground slowly without heavy strike to ground over past few days secondary to trying to get up on his own impulsively - has one to one sitter at bedside - Pelvis x-rays obtained (12/03): surgical hardware intact - Davol drain and vac removed 12/04 -Plan for staple removal 12/15 - Patient non-compliant with TTWB restrictions, continue to encourage compliance. 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 Continue to assess for diet advancement. #18 Retention Urinary - Started on Flomax & Finasteride this admission and have increased to 0.8 mg - On a voiding schedule; will increase to every 4 hours to trial voiding and then bladder scanning every 4 hours prn - goal is to post void residual <400 cc - net negative -1281 urinary output yesterday - net negative -350 as of this morning -offer urinal multiple times per day and before straight cathing Summary: - Diet: adult dysphagia, thin (TNO), soft and bite sized (SB6) - Activity/Exercise: up with assistance, weight bearing restriction to LLE, toe touch - VTE Prophylaxis: Enoxaparin 30 mg BID - Bowel Regimen: Dulcolax, milk of magnesia, MiraLax, Senokot - Void: in and out if he struggles with spontaneous voiding - Pain: Tylenol, Lidoderm patch - Disposition: SNF pending, Working on home health with [facility] benefits if facility is unable to be identified. Please contact the Trauma service with questions at [phone]. Although appears medically stable for transfer via chart review, neither the patient, nor the patient's civil rights representative have requested transfer to the [facility], nor are there any beds available at the [facility] for the level of care required. /dexter/ Oziel Espinosa MA, PHN, RN-BC assistant head cashier Library Assistant Signed: 12/16/2023 11:42 12/21/2023 ADDENDUM STATUS: COMPLETED CONTINUED STAY REVIEW Contact Date: 12/21/23 Date of Admission: 11/23/23 Current Length of Stay: 28 days Method of Contact: Other: [facility] Inpatient level of care required: Critical; 11/27/23 Transferred to Acute Trauma Critical Care and General Surgery note dated, 12/20/23: ASSESSMENT / PLAN Daily Plan -Continue with encouragement of spontaneous voiding -If patient has spontaneous voiding PLEASE obtain a post void residual (Goal < 400) -Continue I/O as needed -Continue with ambulation, PT/OT -Continue with reorientation/redirection -Appears wants patient to be at home, will discuss with her home going requirements and ensure safety. Mechanism of Injury: Fall from ladder (6ft) #1 Status post Fall 6 feet from Ladder #2 Subarachnoid Hematoma Trauma Without Loss Of Consciousness Initial #3 Contusion Scalp Initial Left frontal lobe SAH Large left frontal scalp hematoma Neurosurgery Chief C service consult appreciated. Repeat CT imaging was obtained and followed by Neurosurgery. Cleared for DVT prophylaxis on 12/11. No additional intervention was determined to be necessary. He is scheduled for a follow up with Neurosurgery with repeat CTH on 12/27. #4 Fracture Rib Single Closed Initial Left #5 Effusion Pleural #6 Atelectasis Left anterior 6th rib fracture CXR last performed on 12/06/23 noted with decreased perihilar and bibasilar atelectasis. He is maintaining saturations on RA in low 90s. Pain control continues prn. We will continue to monitor. #7 Fracture Pelvis Multiple Closed With Stable Disruption Pelvis Ring Initial (HCC) #8 Fracture Acetabulum Other Closed Initial Left (HCC) #9 Fracture Ilium Closed Initial Left (HCC) Multiple comminuted fractures of left anterior and posterior pubic rami, acetabulum, iliac wing extending to involve the left sacroiliac joint S/p ORIF Acetabulum (11/25/23) OTS-1 consult appreciated. TDWB LLE. Patient is having difficulty with understanding WB restrictions. We will continue reminders. PMR continues to follow. He is scheduled for a follow up with Dr. Higuera on 01/04/24. #10 Injury Blood Vessel Abdomen Lower Back Pelvis Initial #11 Anemia Posthemorrhagic Acute (Blood Loss Anemia) Moderate hemorrhage in the left retroperitoneum and pelvis tracking in left anterior perivesical space and along the anterior bladder wall Intramuscular hematomas in the left psoas, left iliacus and left gluteus minimus and medius Hemoglobin stable on last check at 10.4. We will repeat labs as indicated. #12 Thrombosis Deep Vein Lower Extremity Left (HCC) Left Soleal DVT Vascular Medicine consulted. Noted with isolated distal provoked DVT. Recommended repeat US. This was performed today with no noted change. No therapeutic anticoagulation necessary. DVT prophylaxis will continue due to decreased mobility. We will monitor. 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 On Ramelteon and Melatonin. Delirium prevention continuing. We will continue to monitor and await additional recommendations. #17 Dysphagia OT Dysphagia following. He has been cleared for Dysphagia Thin. We will continue to monitor recommendations. #18 Retention Urinary Geriatrics following. He was initiated on Flomax and Finasteride. He has continued to require I/Os. His has declined herman placement given delirium and has elected to continue I/O. At this time, this will continue, however, as he is not completely voiding, with elevated PVR, will require continue I/O at discharge. This will be explained to or will continue if [facility] discharge. We will recommend outpatient Urology follow up. #16 Overweight Body Mass Index 25-29.9 Adult Healthy dietary choices encouraged. Follow up with PCP PLAN New Consults Diet: Adult Diet Dysphagia; Thin (TN0); Soft and Bite-Sized (SB6) Activity: TTWB LLE VTE Prophylaxis: Enoxaparin 30mg BID GI Prophylaxis: not indicated Bowel Regimen: Miralax and Senna Pain: Tylenol and triple cream, lidoderm Antibiotics: not indicated Disposition: Unknown unknown at this time Please page trauma at [phone] with any questions regarding the care of this patient. Thanks. Cosigned by: Alexandra Varela M.D. at 12/20/2023 2:17 PM Although appears medically stable for transfer via chart review, neither the patient, nor the patient's civil rights representative have requested transfer to the [facility], nor are there any beds available at the [facility] for the level of care required. /dexter/ Oziel Epsinosa MA, PHN, RN- assistant head cashier Library Assistant Signed: 12/21/2023 09:01 12/26/2023 ADDENDUM STATUS: COMPLETED CONTINUED STAY REVIEW Contact Date: 12/26/23 Date of Admission: 11/23/23 Current Length of Stay: 33 days Method of Contact: Other: [facility] Inpatient level of care required: Critical; 11/27/23 Transferred to Acute Trauma Critical Care and General Surgery note dated, 12/25/23: ASSESSMENT / PLAN Diet: Adult Diet Regular Activity: TDWB LLE Pain regimen: Tylenol, triple cream, Lidoderm Bowel regimen: Senna, MiraLAX, bisacodyl p.r. PRN VTE chemoprophylaxis: Enoxaparin 30 mg b.i.d. GI prophylaxis: Not indicated Antibiotics: Not indicated Microbiology: None Dispo: Home with his and home health care on 12/26. SW assisting with wheelchair transportation Today's plans: - Pelvis x-ray obtained today as part of OTS follow up. Will contact their team requesting follow up be completed prior to discharge to simplify follow up and avoid unnecessary and difficult transportation arrangement - Contacted Neurosurgery yesterday requesting head CT and follow up on 12/27 be completed inpatient or delayed. Trauma service will need to contact Neurosurgery on Tuesday - No changes to medical management. #1 Status post Fall 6 feet from Ladder #2 Subarachnoid Hematoma Trauma Without Loss Of Consciousness Initial #3 Contusion Scalp Initial Left frontal lobe SAH Large left frontal scalp hematoma - Neurosurgery Chief C service consulted - Cleared for DVT prophylaxis on 12/11. - No additional intervention necessary. - He is scheduled for a follow up with Neurosurgery with repeat CTH on 12/27. #4 Fracture Rib Single Closed Initial Left #5 Effusion Pleural #6 Atelectasis Left anterior 6th rib fracture - Last CXR 12/05 with decreased perihilar and bibasilar atelectasis. Low lung volumes although this may be related to following directions. Strong inspiratory effort at bedside - No follow up needed at discharge due to length of hospitalization. #7 Fracture Pelvis Multiple Closed With Stable Disruption Pelvis Ring Initial ([facility]) #8 Fracture Acetabulum Other Closed Initial Left ([facility]) #9 Fracture Ilium Closed Initial Left ([facility]) Multiple comminuted fractures of left anterior and posterior pubic rami, acetabulum, iliac wing extending to involve the left sacroiliac joint -S/p ORIF Acetabulum (11/25/23) -OTS-1 consult appreciated -TDWB LLE. -Patient is having difficulty with understanding WB restrictions. We will continue reminders. PMR continues to follow. He is scheduled for a follow up with Dr. Higuera on 01/04/24. -Contacted [facility] with requests to complete follow up in patient given prolonged hospitalization and with difficult transportation needs. Would recommend contact OTS-1 tomorrow to discuss further - 3 view pelvic x-ray obtained, this is in the setting on noncompliance of weightbearing restrictions due to baseline cognitive impairment #10 Injury Blood Vessel Abdomen Lower Back Pelvis Initial #11 Anemia Posthemorrhagic Acute (Blood Loss Anemia) Moderate hemorrhage in the left retroperitoneum and pelvis tracking in left anterior perivesical space and along the anterior bladder wall Intramuscular hematomas in the left psoas, left iliacus and left gluteus minimus and medius -Hemoglobin stable. -We will repeat labs as indicated. #12 Thrombosis Deep Vein Lower Extremity Left (HCC) Left Soleal DVT -Vascular Medicine consulted -Noted with isolated distal provoked DVT. -Repeat US 12/18 with no noted change -No therapeutic anticoagulation necessary. DVT prophylaxis will continue due to decreased mobility. We will monitor. #13 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 ([facility]) #14 Decline Cognitive #15 Encephalopathy Metabolic #16 Delirium Acute -Geriatrics consulted -On Ramelteon and Melatonin -Delirium prevention continuing. #17 Dysphagia -OT Dysphagia following. -Advanced to regular diet 12/20, medications whole with puree #18 Retention Urinary -Initiated on Flomax and Finasteride. -Continues to require I/O catheterization. -Patient's has declined herman placement given delirium and has elected to continue I/O. -Urinary retention improving and patient voiding some on his own. Last PVR 472 mL -Patient intermittently declining medications. Patient's is aware and encouraging patient to take medications are prescribed -Will need outpatient Urology follow up #19 Disposition - Reviewed the discharge plan with the patient's and she is anticipating discharging home on 12/26 - Ramp was installed 12/22 - Hospital bed will arrive Tuesday - DME urology supplies pended in discharge orders - Wheelchair transportation being arranged by [facility]. If this can't be setup, the patient's will provide transportation If you have any questions or concerns please page the Trauma Service at Although appears medically stable for transfer via chart review, neither the patient, nor the patient's civil rights representative have requested transfer to the [facility], nor are there any beds available at the [facility] for the level of care required. CARMELINA=12-27-23 /es/ Oziel Espinosa MA, PHN, RN- assistant head cashier Library Assistant Signed: 12/26/2023 12:23 12/27/2023 ADDENDUM STATUS: COMPLETED HOSPITAL DISCHARGE CARE COORDINATION NOTE Hospital Name: [facility] Admit date: 11/23/23 Discharge date: 12/27/23 Level of Care: Critical Primary Diagnosis: Fracture Ilium Closed Initial Left Discharge Disposition: Home-Health Care [facility] [place] [facility] Discharge provider recommends and notes the following: REASON FOR ADMISSION Anemia Contusion Buttock Initial Subarachnoid Hemorrhage With Loss Of Conscious Initial (HCC) Fracture Acetabulum Closed Initial Left (HCC) Fracture Ilium Closed Initial Left (HCC) History Of Falling Other Shock (Hemorrhagic Shock) (HCC) Retroperitoneal Hematoma HOSPITAL COURSE #1 Status post Fall 6 feet from Ladder Mr. Grayson was transported to [facility] as a level red trauma for further evaluation and management of injuries sustained when he fell from a ladder. CT scans of the head, spine, chest, abdomen, and pelvis were obtained as well as plain films. He was noted to have injuries listed below. He was admitted to the surgical intensive care unit. The following day a tertiary trauma survey was completed which revealed no new injuries. #2 Subarachnoid Hematoma Trauma Without Loss Of Consciousness Initial #3 Contusion Scalp Initial Left frontal lobe SAH Large left frontal scalp hematoma Neurosurgery Chief C service consulted. Initial management recommendations included keeping systolic blood pressure less than 160 and head of bed elevated. Repeat head CT in 6 hours the following morning showed interval increase in the left ventricle and intraparenchymal hemorrhages. Additional head CT was obtained 48 later on 12/11 and stable. He was cleared for DVT prophylaxis. No further interventions were required. He had a repeat head CT while in the hospital which was read by neurosurgery and showed the subarachnoid hemorrhage seen on 12/01/2023 remains absent. They will follow up with him over the phone. #4 Fracture Rib One Open Initial Left #5 Atelectasis #6 Effusion Pleural Left anterior 6th rib fracture He was initiated on trauma rib fracture protocol. Chest x-rays were monitored closely. He continued with pulmonary hygiene throughout hospitalization. No follow up needed at discharge due to length of hospitalization. #7 Fracture Pelvis Multiple Closed With Stable Disruption Pelvis Ring Initial (HCC) #8 Fracture Acetabulum Other Closed Initial Left (HCC) #9 Fracture Ilium Closed Initial Left (HCC) Multiple comminuted fractures of left anterior and posterior pubic rami, acetabulum, iliac wing extending to involve the left sacroiliac joint Orthopedic Trauma Service was consulted (Dr. Dietrich's OTS 4). Traction pin was placed and he was taken to the operating room on 11/24 for ORIF of the acetabulum. Weightbearing restrictions include touchdown weight-bearing to the left lower extremity. [place] were removed at surgical site on 12/15. He is scheduled for a follow up with Dr. Higuera on 01/04/24. #10 Injury Blood Vessel Abdomen Lower Back Pelvis Initial #11 Anemia Posthemorrhagic Acute (Blood Loss Anemia) Moderate hemorrhage in the left retroperitoneum and pelvis tracking in left anterior perivesical space and along the anterior bladder wall Intramuscular hematomas in the left psoas, left iliacus and left gluteus minimus and medius Hemoglobin values were monitored serially. He received a total of 7 units of packed red blood cells, 2 units FFP, 2 units platelets during hospitalization and 2 units cell salvage. #12 Thrombosis Deep Vein Lower Extremity Left (HCC) Acute L-Soleal vein DVT He was unable to receive chemical DVT prophylaxis for an extended period of time due to head bleed. He underwent serial ultrasound imaging of bilateral lower extremities which eventually showed improvement of the acute DVT in the left soleal vein on small adjacent venous branch. Vascular Medicine was consulted and recommended a final US on 12/18 which showed stable short segment acute DVT with no extension. Vascular recommended no home going anticoagulation. #13 Encephalopathy Metabolic #14 Delirium Geriatric Medicine was consulted and followed along throughout hospitalization. They recommended initiation of ramelteon and suvorexant to help improve sleep. Seroquel as needed was ordered and eventually tapered down to a small PRN dose. #15 Dysphagia Occupational therapy dysphagia service consulted and followed along. Diet was adjusted as he progressed. He was eventually advanced to a regular diet on 12/20 with medications given whole with pureed bites. #16 Retention Urinary After indwelling urinary catheter was removed, he continued with urinary retention throughout hospitalization. He was initiated on Flomax and finasteride. At the time of discharge, he was still requiring in and out catheterization for retention. He will require Urology follow-up. #17 Overweight Body Mass Index 25-29.9 Adult Physical Medicine And Rehabilitation was consulted for evaluation and provided physical and occupational therapy services. It was recommended that he continue with skilled therapy after dismissal. Ultimately, it was decided that he would discharge home with home health care services (care home, health aide, PT/OT). Services, equipment, and adaptations for the home were made [facility]. At the time of discharge, he was tolerating a regular diet with adequate intake, had no pain, was mobilizing with assistance and assisted devices, had adequate urine output (intermittent catheterization by ), and regular bowel function. He was discharged home on 12/26 with home health care through the [facility]... ACTIVE ISSUES REQUIRING FOLLOW UP ORTHOPEDIC RECOMMENDATIONS: MOBILITY (left lower extremity): You should remain TOUCH weight bearing status until advised by a physician, using a walker or crutches for assistance with ambulation. You may rest the left leg on the ground, but should avoid transferring your weight through the left leg. You should keep your lower extremity elevated at or above the level of your heart to help decrease swelling and pain. You are to keep your heel off the bed at all times to prevent pressure ulcers from forming. You will continue with physical therapy and rehabilitation exercises as described in the hospital. *These restrictions will be in place for 12 weeks from surgery. PAIN: Per primary service. BLOOD CLOT PROPHYLAXIS: You were diagnosed with this provoked DVT secondary to femur fracture. Your follow up lower extremity ultrasound was stable with no proximal extension noted. Vascular medicine recommends NO need for anticoagulation post discharge.You have been instructed in the signs and symptoms of deep venous thrombosis, including calf swelling, pain or redness, fever, chills or sweats. You have been instructed on the signs and symptoms of pulmonary embolism including chest pain or shortness of breath. Should you develop any of the above symptoms, you should contact Dr. Higuera's Service immediately and/or visit an emergency room. SURGICAL INCISION: You have a surgical incision to the left hip. The incision should be monitored closely for any changes that would be concerning for infection including increased redness, any drainage or increased pain or tenderness around the surgical site. You should also monitor for systemic signs of infection such as fever, chills or night sweats. If these findings are noted, patient should contact Dr. Higuera's team immediately to discuss next steps in treatment. You should keep the incision clean and dry. You should change the dressings over the wound as needed to keep it clean and dry. You may shower getting the surgical site wet, providing that you have had two consecutive days of a dry wound. However, the patient was advised not to submerge the wound under water in bath tubs, swimming pools, or hot tubs for at least 3 weeks following the date of surgery (until fully healed and all scabbing has resolved) . Please call with any concerns regarding the surgical incision. FOLLOW UP: You will need repeat x-rays of the pelvis to include AP and Judet views at 6 weeks post surgery (around 01/06/2024). An order for these images has been included in your discharge paperwork. Please complete these images locally and either have them pushed to the [facility] or sent to Dr. Higuera's team via disc for review. You will be scheduled for an in person follow up visit at 12 weeks post surgery with repeat imaging at which time advancement to your weight bearing will be discussed. Please contact Dr. Higuera's team with any questions regarding follow up plan at [phone]. NO FOLLOW UP REQUIRED WITH TRAUMA-CRITICAL CARE-GENERAL SURGERY (TCGS): You do not require a follow up appointment at this time. If you are having difficulty, have questions or would like to be seen in follow-up, please call to make an appointment at [phone]. If you need to reach a provider on the TCGS service after hours, you may call the [facility] fiberglass machine operator at and ask to speak the provider production aide for the Trauma-Critical Care-General Surgery (TCGS) Service. If you have forms that need addressed by the surgery team or outside records that need to be uploaded, please email them to [email or web address] or fax them at [phone]. Issue: Follow up with pelvis x-rays What is Needed: pelvis x-rays Follow-up Appointments Arranged: No, but orders provided to family to have them done at a convenient clinic Rody Arriaga APRN, C.N.P., D.N.P. Please review the Discharge Summary for details of the care rendered, as well as any necessary or recommended follow up care the patient may require. Hospital records uploaded to [email or web address] via [employer]. Records also available to view in [facility] within the Imaging and Community Health Summaries and Documents widgets. /dexter/ Oziel Espinosa MA, PHN, RN-BC assistant head cashier Library Assistant Signed: 12/27/2023 14:44 Receipt Acknowledged By: 12/29/2023 08:49 /dexter/ Garrett Browning RN [facility] for DANA AGUIRRE 12/28/2023 12:07 /dexter/ Romana Goldstein APRN, CNP 12/27/2023 ADDENDUM STATUS: COMPLETED VistA Imaging Scanned Document - Addendum. [facility], 12-27-23 [facility] [place] Summary. SCANNED DOCUMENT SIGNATURE NOT REQUIRED Electronically Filed: 12/27/2023 by: Oziel Espinosa MA, PHN, RN-BC assistant head cashier Library Assistant 12/29/2023 ADDENDUM STATUS: COMPLETED RTC placed/AMSAs notified for hospital f/u with PCP. /dexter/ Garrett Browning RN [facility] Signed: 12/29/2023 08:50 [facility]
--- OUTSIDE RECORDS SUMMARY | 2024-01-23 10:36 | XMS_ITS | Encounter Summary ---
Author Name [facility] [place] Address [address] [place] [address] Care Team Providers Care Recreation Facility Manager Name Role Phone TRISTONHORACE CASPERCIA Primary Care Provider Unavailabl e Insurance [...] PART A Jul 21, 2007 PART A [id number] [phone] PRATEEK COHN PATIENT Selected Encounter This section includes the information on record at [place] for the Encounter. Date/Time Encounter Type Encounter Description Reason Provider Source Dec 15, 2023 11:33 AM HC PRO PHONE CALL 21-30 MIN TELEPHONE PRIMARY CARE ICD-10-CM S06.2XAA Diffuse TBI with LOC status unknown, initial encounter DANA AGUIRRE Encounter Template Text not used by [place] Assessments - Encounter Diagnoses This section includes the primary and secondary diagnoses documented for the Encounter. Date/Time Primary/Secondary Diagnosis Diagnosis Name Provider Source Dec 15, 2023 11:33 AM PRIMARY Diffuse TBI with LOC status unknown, initial encounter DANA AGUIRRE ([place]) Plan of Treatment: Future Appointments (+ 6 months) and Future Tests (+/- 45 days) The Plan of Treatment section includes future care activities for the patient from all [place] [facility]. This section includes future appointments and future orders which are active, pending or scheduled. Future Appointments This section includes appointments that were scheduled to occur 6 months from the date of the Encounter, up to a maximum of 20 appointments. The data comes from all [place] treatment facilities. Appointment Date/Time Appointment Type Appointme nt Facility Name Dec 29, 2023 07:00 AM [place]ORY [place]ONE [place] [facility] Jan 11, 2024 01:00 PM AMBULATORY - MEDICINE [place] ([facility]) Jan 11, 2024 02:30 PM AMBULATORY - PS[place]CHIATRY [place] ([facility]) Jan 31, 2024 09:00 AM AMBULATORY - [place]CHIATRY [place] ([facility]) Jan 31, 2024 09:01 AM AM[place]UL[place]ORY [place] [facility] Active, Pending, and Scheduled Orders This section includes a listing of several types of active, pending, and scheduled orders, including clinic medications orders, diagnostic test orders, procedure orders and consult orders; where the start date of the order is 45 days before the date of the Encounter or 45 days after the date of theEncounter. The data comes from all [place] treatment facilities. Test Date/Time Test Type Test Details Facility Name Jan 11, 2024 04:27 PM Consult Order MH OUTPT-N EUROPSYCHOLOGY Cons Electronic Organ Technician's [facility] ([facility]) Social History: Smoking Status (Most current) and Tobacco Use (All prior to encounter date) This section includes the most current, and the historical, smoking and tobacco- related health factors from the [place] facility where the Encounter took place. Current Smoking Status This section includes the most current smoking, or tobacco-related health factor, from the [place] facility where the Encounter took place. Date/Time Current Smoking Status Comment Facil [place] Sep 07, 2021 08:00 AM [place] NEVER USED [place] ([facility]) Encounter Notes: All associated encounter notes This section contains the clinical notes associated to the Encounter. Date/Time Encounter Note(s) Provider Source Dec 15, 2023 11:33 AM PRIMARY CARE SIMA ART NOTE: LOCAL TITLE: [facility] NURSING PROGRESS NOTE STANDARD TITLE: PRIMARY CARE NURSING NOTE DATE OF NOTE: DEC 15, 2023@11:33 ENTRY DATE: DEC 15, 2023@11:33:40 AUTHOR: DANA AGUIRRE EXP COSIGNER: URGENCY: STATUS: COMPLETED Notified from social work manager of discharging needs from . [place] suffered a fall on 11/23 and has been hospitilized since. He will require care when he goes home, which will be provided by his and son but also needing home care as well. [place] records reviewed. Elian would benefit from PT, OT, SMALL BUSINESS SALES REPRESENTATIVE/HHM, respite and as well as multiple DME requests. requesting urinal and body cleansing wipes. Also requesting urinary catheters and supplies. Plan: will work with OT at the hospital regarding DME needs. Wipes and urinal ordered. Sent [employer] pharmacy benefits to so she will be able to get needed medications to go home with as well as urinary supplies. Home care orders placed as well. Call time: 24 minutes. /dexetr/ DANA AGUIRRE, RN, BSN Staff Nurse Signed: 12/15/2023 11:43 DANA AGUIRRE ([facility])
--- OUTSIDE RECORDS SUMMARY | 2024-01-23 10:36 | XMS_ITS | Encounter Summary ---
Author Name [facility] [place] Address [address], [place] [address] Care Team Providers Care Paper Stripper Name Role Phone ROMANA GOLDSTEIN Primary Care [...] PART A Jul 21, 2007 PART A [id number] [phone] PRATEEK COHN PATIENT Selected Encounter This section includes the information on record at [place] for the Encounter. Date/Time Encounter Type Encounter Description Reason Pro vider Source Dec 02, 2023 11:45 AM Outpatient Encounter TELEPHONE PRIMARY CARE IHE Encounter Template Text not used by [place] Plan of Treatment: Future Appointments (+ 6 months) and Future Tests (+/- 45 days) The Plan of Treatment section includes future care activities for the patient from all [place] treatmentfacilities. This section includes future appointments and future orders which are active, pending or scheduled. Future Appointments This section includes appointments that were scheduled to occur 6 months from the date of the Encounter, up to a maximum of 20 appointments. The data comes from all [place] treatment facilities. Appointment Date/Time Appointment Type Appointme nt Facility Name Dec 29, 2023 07:00 AM [facility] [place]ONE [place] [facility] Jan 11, 2024 01:00 PM AMBULATORY - MEDICINE [place] ([facility]) Jan 11, 2024 02:30 PM AMBULATORY - PS[facility]CHIATRY [place] ([facility]) Jan 31, 2024 09:00 AM AMBULATORY - PS[place]CHIATRY [place] ([facility]) Jan 31, 2024 09:01 AM AM[place] [facility] Active, Pending, and Scheduled Orders This section includes a listing of several types of active, pending, and scheduled orders, including clinic medications orders, diagnostic test orders, procedure orders and consult orders; where the start date of the order is 45 days before the date of the Encounter or 45 days after the date of theEncounter. The data comes from all [place] treatment facilities. Test Date/Time Test Type Test Details Facility Name Jan 11, 2024 04:27 PM Consult Order MH OUTPT-N EUROPSYCHOLOGY Cons Refining Engineer's Choice [place] ([facility]) Social History: Smoking Status (Most current) and Tobacco Use (All prior to encounter date) This section includes the most current, and the historical, smoking and tobacco- related health factors from the [place] facility where the Encounter took place. Current Smoking Status This section includes the most current smoking, or tobacco-related health factor, from the [place] facility where the Encounter took place. Date/Time Current Smoking Status Comment Facil ity Dec 01, 2017 02:51 PM LIFETIME NON-TOBACCO USER [facility] Tobacco Use History This section includes a history of the smoking, or tobacco-related health factors, that were collected on or before the date of the Encounter. The data comes from the [place] facility where the Encounter took place. Date/Time Smoking Status/Tobacco Use Comment F acility Aug 10, 2016 09:08 AM FORMER TOBACCO USER 7Y OR GREATE R [facility] Aug 10, 2016 09:08 AM LIFETIME NON-TOBACCO USER [facility] Sep 06, 2014 08:19 AM FORMER TOBACCO USER 7Y OR GREATE R [facility] Dec 09, 2011 01:28 PM FORMER TOBACCO USER 7Y OR GREATE R [facility] Encounter Notes: All associated encounter notes This section contains the clinical notes associated to the Encounter. Date/Time Encounter Note(s) Provider Source Dec 02, 2023 11:45 AM SOCIAL WORK NOTE: LOCAL TITLE: SW SOCIAL WORK PROGRESS NOTE STANDARD TITLE: SOCIAL WORK NOTE DATE OF NOTE: DEC 02, 2023@11:45 ENTRY DATE: DEC 02, 2023@11:45:32 AUTHOR: ELLEN LEON COSIGNER: URGENCY: STATUS: COMPLETED SOCIAL WORK PROGRESS NOTE Has ADDENDA PCSW received a fax from the hospital Obgyn Hospitalist Physician requesting informaiton on Veterans short term rehab benefits through the [facility]. This financial underwriter placed return call to [facility] Obgyn Hospitalist Physician on this day (12/02/23) at [phone] and spoke with her. Tool Shaper Setup Operator informed her that [facility] does not have short term rehab benefits or terminal superintendent benefits unless he is on hospice and would need to utilize Medicare for rehab if he had it, she verbalized understanding. Romana stated she would follow up with regarding this information. PCSW also had a message from Brooke Zhou asking about POA information. This financial underwriter did not find an DEJAN on file nor was she listed on the facesheet. Tool Shaper Setup Operator called number provided ([phone]) and was unable to leave a message as the mailbox was full. Tool Shaper Setup Operator also attempted to reach - Kenny regarding the POA information and left a HIPPA complaint message on an identified voicemail introducing myself, the clinic I was calling with and requested a return call to my direct line at [phone], awaiting return call. /dexter/ ADELSO Sandoval Primary Care Obgyn Hospitalist Physician Signed: 12/02/2023 11:45 12/02/2023 ADDENDUM STATUS: COMPLETED Tool Shaper Setup Operator received a call back from [facility] stated that they did not call about POA information and do not have any family with the name Brooke. Tool Shaper Setup Operator reviewed with [employer] and message was entered in correctly on the PCSW call list. Tool Shaper Setup Operator call and provided reassurance that it was entered incorrectly and no information was provided to the other person. PCSW to remain available. /dexter/ ADELSO Sandoval Primary Care Obgyn Hospitalist Physician Signed: 12/02/2023 12:04 ELLEN LEON ([facility])
--- OUTSIDE RECORDS SUMMARY | 2024-01-23 10:37 | XMS_ITS | Encounter Summary ---
Author Name [facility] [place] Address [address], [place] [address] Care Team Providers Care Divorce Mediator Name Role Phone HAYLEY GOLDSTEIN Primary Care [...] PART A Jul 21, 2007 PART A [id number] [phone] PRATEEK COHN PATIENT Selected Encounter This section includes the information on record at [place] for the Encounter. Date/Time Encounter Type Encounter Description Reason Pro vider Source Dec 30, 2023 08:48 AM Outpatient Encounter COMMUNITY CARE CONSULT IHE Encounter Template Text not used by [...] Appointment Type Appointme nt Facility Name Jan 11, 2024 01:00 PM AMBULATORY - MEDICINE [place] ([facility]) Jan 11, 2024 02:30 PM AMBULATORY - PS[place]CHIATRY [place] ([facility]) Jan 31, 2024 09:00 AM AMBULATORY - PS[place]CHIATRY [place] ([facility]) Jan 31, 2024 09:01 AM AM[place]UL[place] [facility] Active, Pending, and Scheduled Orders [...] PM Consult Order MH OUTPT-N EUROPSYCHOLOGY Cons Vibrating Screen Operator's [facility] ([facility]) Social History: Smoking Status (Most current) and [...] 01, 2017 02:51 PM LIFETIME NON-TOBACCO USER [facility] Tobacco Use History This section includes a history of the smoking, or tobacco-related health factors, that were collected on or before the date of the Encounter. The data comes from the [place] facility where the Encounter took place. Date/Time Smoking Status/Tobacco Use Comment F acility Aug 10, 2016 09:08 AM FORMER TOBACCO USER [address]Y [address] [facility] Aug 10, 2016 09:08 AM LIFETIME NON-TOBACCO USER [facility] Sep 06, 2014 08:19 AM FORMER TOBACCO USER [address]Y [address] [facility] [facility] Dec 09, 2011 01:28 PM FORMER TOBACCO USER [address]Y [address] [facility] Encounter Notes: All associated encounter notes This section contains the clinical notes associated to the Encounter. Date/Time Encounter Note(s) Provider Source Dec 30, 2023 08:48 AM NONVA NOTE: LOCAL TITLE: COMMUNITY CARE-CARE COORDINATION PLAN NOTE STANDARD TITLE: NONVA NOTE DATE OF NOTE: DEC 30, 2023@08:48 ENTRY DATE: DEC 30, 2023@08:48:28 AUTHOR: DANA PATHAK EXP COSIGNER: URGENCY: STATUS: COMPLETED Spoke with pt. , she called asking if the cath supplies were ordered and going to be mailed to her. Manager Ui confirmed they are in the mail. She stated she has a supply that will last her until she gets them. Also, informed that she will be getting 16 hrs week respite from [facility]. However, was not able to find skilled services in their area. stated she is doing the meds and straight cath herself and that he is walking with a walker very well. She states he seems to be getting stronger and stronger everyday and she does not feel he needs skilled services at this time. Informed she can take him to PT/OT in the community if she would like in the future. /es/ DANA PATHAK RN Community Dinkey Driver Signed: 12/30/2023 08:53 Receipt Acknowledged By: 12/30/2023 16:06 /es/ Hayley Goldstein APRN, CNP 12/30/2023 09:28 /es/ Naveed Garcia RN [facility] for DANA SANCHEZ [facility]
--- OUTSIDE RECORDS SUMMARY | 2024-01-23 10:37 | XMS_ITS | Encounter Summary ---
Author Name [facility] [place] [facility] [place] Address [address], [place] [address] Care Team Providers Care Forensic Photographer Name Role Phone ROMANA GOLDSTEIN Primary Care [...] PART A Jul 21, 2007 PART A [id number] [phone] PRATEEK COHN PATIENT Selected Encounter This section includes the information on record at [place] for the Encounter. Date/Time Encounter Type Encounter Description Reason Pro vider Source Dec 23, 2023 10:18 AM Outpatient Encounter PRIMARY CARE/MEDICINE IHE Encounter Template Text not used by [...] 07:00 AM AM[place]ORY [place] [facility] Jan 11, 2024 01:00 PM AMBULATORY - MEDICINE [place] ([facility]) Jan 11, 2024 02:30 PM AMBULATORY - PS[place]CHIATRY [place] ([facility]) Jan 31, 2024 09:00 AM AMBULATORY - PS[place]CHIATRY [place] ([facility]) Jan 31, 2024 09:01 AM AMBULATORY - [facility]AT[place] [facility] Active, Pending, and Scheduled Orders This section includes a listing of several types of active, pending, and scheduled orders, including clinic medications orders, diagnostic test orders, procedure orders and consult orders; where the start date of the order is 45 days before the date of the Encounter or 45 days after the date of theEncounter. The data comes from all [facility] facilities. Test Date/Time Test Type Test Details Facility Name Jan 11, 2024 04:27 PM Consult Order MH OUTPT-N EUROPSYCHOLOGY Cons Injection Molding Process Technician's Choice [place] ([facility]) Social History: Smoking Status (Most current) [...] 01, 2017 02:51 PM LIFETIME NON-TOBACCO USER [facility] Tobacco Use History This section includes a history of the smoking, or tobacco-related health factors, that were collected on or before the date of the Encounter. The data comes from the [place] facility where the Encounter took place. Date/Time Smoking Status/Tobacco Use Comment F acility Aug 10, 2016 09:08 AM FORMER TOBACCO USER 7Y OR GREATE R [facility] Aug 10, 2016 09:08 AM LIFETIME NON-TOBACCO USER [facility] Sep 06, 2014 08:19 AM FORMER TOBACCO USER 7Y OR GREATE R [facility] Dec 09, 2011 01:28 PM FORMER TOBACCO USER 7Y OR GREATE R [facility] Encounter Notes: All associated encounter notes This section contains the clinical notes associated to the Encounter. Date/Time Encounter Note(s) Provider Source Dec 26, 2023 11:58 AM ADDENDUM: LOCAL TITLE: Addendum STANDARD TITLE: ADDENDUM DATE OF NOTE: DEC 26, 2023@11:58:42 ENTRY DATE: DEC 26, 2023@11:58:44 AUTHOR: JUANY BROWNING EXP COSIGNER: URGENCY: STATUS: COMPLETED Job Counselor informed by [facility] SW of catheter size/type via Teams, per [facility]. Appropriate orders entered. PCP will need to approve. /dexter/ Juany Browning RN [facility] Signed: 12/26/2023 11:59 Receipt Acknowledged By: 12/27/2023 16:37 /dexter/ Romana Goldstein APRN, AIR BRAKE RIGGER --- Original Document --- 12/23/23 BEN SOCIAL WORK PROGRESS NOTE: PCSW spoke with hospital Compressor Technician on this day (12/23/23) at [phone] and she stated that she spoke with Veterans and the ramp has been orders and hoping to be placed by 12/24/23 (A notes indicated 12/27/23) and the is hoping the hospital bed is being delivered today (12/23/23). Compressor Technician indicated need for Cath supplies and PT and OT, communications writer provided PACT's fax number to send the orders to for cath supplies, communications writer to update PACT RN on PT/OT needs, she verbalized understanding. This communications writer then called and [facility] a [facility] [place] [place]'s that I received an update from the hospital pediatric social worker and to call me with any questions at [phone]. Plan: - PCSW is kindly cosigning PACT RN to place new consult for PT, OT, SNV and cath orders. - PCSW to remain available. /dexter/ ADELSO Sandoval Primary Care Compressor Technician Signed: 12/23/2023 10:19 Receipt Acknowledged By: 12/23/2023 14:11 /dexter/ Juany Browning RN [facility] for DANA AGUIRRE 12/23/2023 14:11 /dexter/ Juany Browning RN [facility] 12/23/2023 ADDENDUM STATUS: COMPLETED At the time of this note, no fax yet received from [facility] with i/o catheter orders, etc. Job Counselor did find instructions for i/o cathing on [facility] (catheter size/type not found). Consult placed for skilled HH services (SN, PT, OT). CITC RN is handling non-skilled HH consult. Job Counselor will place order for i/o catheter if it is received before leaving today. Otherwise, PACT can place order early next week. /adriano Browning RN [facility] Signed: 12/23/2023 14:18 Receipt Acknowledged By: 12/26/2023 13:08 /adriano AGUIRRE RN, BSN Staff Nurse 12/23/2023 14:36 /adriano PATHAK RN [facility] 12/26/2023 07:49 /dexter/ Ellen Craig [facility] Primary Care Compressor Technician JUANY BROWNING [place] ([facility]) Dec 23, 2023 02:12 PM ADDENDUM: LOCAL TITLE: Addendum STANDARD TITLE: ADDENDUM DATE OF NOTE: DEC 23, 2023@14:12:55 ENTRY DATE: DEC 23, 2023@14:12:56 AUTHOR: JUANY BROWNING COSIGNER: URGENCY: STATUS: COMPLETED At the time of this note, no fax yet received from [facility] with i/o catheter orders, etc. Job Counselor did find instructions for i/o cathing on [facility] (catheter size/type not found). Consult placed for skilled HH services (SN, PT, OT). CITC RN is handling non-skilled HH consult. Job Counselor will place order for i/o catheter if it is received before leaving today. Otherwise, PACT can place order early next week. /adriano Browning RN [facility] Signed: 12/23/2023 14:18 Receipt Acknowledged By: 12/26/2023 13:08 /adriano AGUIRRE RN, BSN Staff Nurse 12/23/2023 14:36 /adriano PATHAK RN [facility] 12/26/2023 07:49 /ADELSO Banks Primary Care Compressor Technician --- Original Document --- 12/23/23 BEN SOCIAL WORK PROGRESS NOTE: PCSW spoke with hospital Compressor Technician on this day (12/23/23) at [phone] and she stated that she spoke with Veterans and the ramp has been orders and hoping to be placed by 12/24/23 (A notes indicated 12/27/23) and the is hoping the hospital bed is being delivered today (12/23/23). Compressor Technician indicated need for Cath supplies and PT and OT, communications writer provided PACT's fax number to send the orders to for cath supplies, communications writer to update PACT RN on PT/OT needs, she verbalized understanding. This communications writer then called and left a [employer] complaint message for [place]- 's that I received an update from the hospital pediatric social worker and to call me with any questions at [phone]. Plan: - PCSW is kindly cosigning PACT RN to place new consult for PT, OT, SNV and cath orders. - PCSW to remain available. /ADELSO Banks Primary Care Compressor Technician Signed: 12/23/2023 10:19 Receipt Acknowledged By: 12/23/2023 14:11 /adriano Browning RN [facility] for DANA AGUIRRE 12/23/2023 14:11 /adriano Browning RN [facility] 12/26/2023 ADDENDUM STATUS: COMPLETED Job Counselor informed by [facility] SW of catheter size/type via Teams, per [facility]. Appropriate orders entered. PCP will need to approve. /adriano Browning RN [facility] Signed: 12/26/2023 11:59 Receipt Acknowledged By: * AWAITING SIGNATURE * TRISTONROMANA CASPER DAMON W [place] ([facility]) Dec 23, 2023 10:18 AM SOCIAL WORK NOTE: LOCAL TITLE: SOCIAL WORK PROGRESS NOTE STANDARD TITLE: SOCIAL WORK NOTE DATE OF NOTE: DEC 23, 2023@10:18 ENTRY DATE: DEC 23, 2023@10:18:52 AUTHOR: ELLEN CRAIG COSIGNER: URGENCY: STATUS: COMPLETED SOCIAL WORK PROGRESS NOTE Has ADDENDA PCSW spoke with hospital Compressor Technician on this day (12/23/23) at [phone] and she stated that she spoke with Veterans and the ramp has been orders and hoping to be placed by 12/24/23 (A notes indicated 12/27/23) and the is hoping the hospital bed is being delivered today (12/23/23). Compressor Technician indicated need for Cath supplies and PT and OT, communications writer provided PACT's fax number to send the orders to for cath supplies, communications writer to update PACT RN on PT/OT needs, she verbalized understanding. This communications writer then called and left a [facility] for [place]- 's that I received an update from the hospital pediatric social worker and to call me with any questions at [phone]. Plan: - PCSW is kindly cosigning PACT RN to place new consult for PT, OT, SNV and cath orders. - PCSW to remain available. /dexter/ ADELSO Sandoval Primary Care Compressor Technician Signed: 12/23/2023 10:19 Receipt Acknowledged By: 12/23/2023 14:11 /adriano Browning RN [facility] for DANA AGUIRRE 12/23/2023 14:11 /adriano Browning RN [facility] 12/23/2023 ADDENDUM STATUS: COMPLETED At the time of this note, no fax yet received from [facility] with i/o catheter orders, etc. Job Counselor did find instructions for i/o cathing on [facility] (catheter size/type not found). Consult placed for skilled HH services (SN, PT, OT). CITC RN is handling non-skilled HH consult. Job Counselor will place order for i/o catheter if it is received before leaving today. Otherwise, PACT can place order early next week. /es/ Juany Browning RN [facility] Signed: 12/23/2023 14:18 Receipt Acknowledged By: * AWAITING SIGNATURE * DANA AGUIRRE 12/23/2023 14:36 /dexter/ DANA PATHAK RN [facility] 12/26/2023 07:49 /es/ ADELSO Sandoval Primary Care Compressor Technician 12/26/2023 ADDENDUM STATUS: COMPLETED Job Counselor informed by [facility] SW of catheter size/type via Teams, per [facility]. Appropriate orders entered. PCP will need to approve. /dexter/ Juany Browning RN [facility] Signed: 12/26/2023 11:59 Receipt Acknowledged By: * AWAITING SIGNATURE * ROMANA GOLDSTEIN ADRIANA D [place] ([facility])
--- OUTSIDE RECORDS SUMMARY | 2024-01-23 10:37 | XMS_ITS | Encounter Summary ---
Author Name [facility] [place] [facility] [place] Address [address], [place] [address] Care Team Providers Care Flat Grinder Operator Name Role Phone ROMANA GOLDSTEIN Primary Care [...] PART A Jul 21, 2007 PART A [id number] [phone] PRATEEK COHN PATIENT Selected Encounter This section includes the information on record at [place] for the Encounter. Date/Time Encounter Type Encounter Description Reason Pro vider Source Dec 23, 2023 09:34 AM Outpatient Encounter COMMUNITY CARE CONSULT IHE Encounter Template Text not used by [place] Plan of Treatment: Future Appointments (+ 6 months) and Future Tests (+/- 45 days) The Plan of Treatment section includes future care activities for the patient from all [place] treatmentfacilities. This section includes future appointments and future orders which are active, pending or scheduled. Future Appointments This section includes appointments that were scheduled to occur 6 months from the date of the Encounter, up to a maximum of 20 appointments. The data comes from all [place] treatment facilities. Appointment Date/Time Appointment Type Appointme [...] 31, 2024 09:01 AM AMBULATORY - [place]RY [place] [facility] Active, Pending, and [...] of theEncounter. The data comes from all [place] treatment facilities. Test Date/Time Test Type Test Details Facility Name Jan 11, 2024 04:27 PM Consult Order MH OUTPT-N EUROPSYCHOLOGY Cons Infant Caregiver's Choice [place] ([facility]) Social History: Smoking Status (Most current) and Tobacco Use (All prior to encounter date) This section includes the most current, and the historical, smoking and tobacco- related health factors from the [place] facility where the Encounter took place. Current Smoking Status This section includes the most current smoking, or tobacco-related health factor, from the [place] facility where the Encounter took place. Date/Time Current Smoking Status Comment Facil ity Dec 01, 2017 02:51 PM LIFETIME NON-TOBACCO USER [facility] Tobacco Use History This section includes a history of the smoking, or tobacco-related health factors, that were collected on or before the date of the Encounter. The data comes from the [place] facility where the Encounter took place. Date/Time [...] Encounter. Date/Time Encounter Note(s) Provider Source Dec 23, 2023 09:34 AM NONVA NOTE: LOCAL TITLE: COMMUNITY CARE-CARE COORDINATION PLAN NOTE STANDARD TITLE: NONVA NOTE DATE OF NOTE: DEC 23, 2023@09:34 ENTRY DATE: DEC 23, 2023@09:35:06 AUTHOR: DANA PATHAK EXP COSIGNER: URGENCY: STATUS: COMPLETED COMMUNITY CARE-CARE COORDINATION PLAN NOTE Has ADDENDA The Community Home Health Care Referral-Skilled acts as a direct order for home care agencies. The referral must be completed with specific orders using the following directions: At the section of the referral asking: Is the care being referred under Medicare or VA Pay? (select one below), you MUST select: The IS being referred under VA Pay (Additional options will then populate.) Check all appropriate boxes (must check at least one) indicating ALL requested/ordered services (i.e.: specific reason/indication for snf, specific wound care orders, etc.). Please place a new Community Home Health Care Referral-Skilled using the above directions. Thank you. /dexter/ DANA PATHAK RN [facility] Vice President Signed: 12/23/2023 09:35 Receipt Acknowledged By: 12/23/2023 14:36 /dexter/ JEEVAN HICKEY NURSE PRACTITIONER for ROMANA GOLDSTEIN 12/23/2023 10:24 /dexter/ Garrett Browning RN [facility] for DANA Franks [place] 12/23/2023 ADDENDUM STATUS: COMPLETED Film Cleaner aware of the above; also cosigned to today's note from [facility] SW. Currently awaiting orders from [facility] via fax. /dexter/ Garrett Browning RN [facility] Signed: 12/23/2023 10:25 DANA PATHAK [facility]
--- OUTSIDE RECORDS SUMMARY | 2024-01-23 10:37 | XMS_ITS | Encounter Summary ---
Author Name [facility] [place] [facility] [place] [facility] [place] Address [address] [place] [address] Care Team Providers Care Metal Fabrication Supervisor Name Role Phone ROMANA GOLDSTEIN Primary [...] PART A Jul 21, 2007 PART A [id number] [phone] PRATEEK COHN PATIENT Selected Encounter This section includes the information on record at [place] for the Encounter. Date/Time Encounter Type Encounter Description Reason Provider Source Dec 20, 2023 03:34 PM CASE MANAGEMENT PHYSICAL THERAPY ICD-10-CM Z74.09 Other reduced mobility VREONICA KING E Encounter Template Text not used by [place] Assessments - Encounter Diagnoses This section includes the primary and secondary diagnoses documented for the Encounter. Date/Time Primary/Secondary Diagnosis Diagnosis Name Provider Source Dec 20, 2023 03:44 PM PRIMARY Other reduced mobility VERONICA KING [facility] Plan of Treatment: Future Appointments (+ 6 [...] 07:00 AM [place] [facility] Jan 11, 2024 01:00 PM AMBULATORY - MEDICINE [place] ([facility]) Jan 11, 2024 02:30 PM AMBULATORY - PS[place]CHIATRY [place] ([facility]) Jan 31, 2024 09:00 AM AMBULATORY - PS[place]CHIATRY [place] ([facility]) Jan 31, 2024 09:01 AM [facility] Active, Pending, and Scheduled Orders This section includes a listing of several types of active, pending, and scheduled orders, including clinic medications orders, diagnostic test orders, procedure orders and consult orders; where the start date of the order is 45 days before the date of the Encounter or 45 days after the date of theEncounter. The data comes from all [facility]. Test Date/Time Test Type Test Details Facility Name Jan 11, 2024 04:27 PM Consult Order MH OUTPT-N EUROPSYCHOLOGY Cons Processor Helper's Choice [place] ([facility]) Social History: Smoking Status (Most current) [...] 01, 2017 02:51 PM LIFETIME NON-TOBACCO USER [facility] Tobacco Use History This section includes a history of the smoking, or tobacco-related health factors, that were collected on or before the date of the Encounter. The data comes from the [place] facility where the Encounter took place. Date/Time Smoking Status/Tobacco Use Comment F acility Aug 10, 2016 09:08 AM FORMER TOBACCO USER 7Y OR GREATE R [facility] Aug 10, 2016 09:08 AM LIFETIME NON-TOBACCO USER [facility] Sep 06, 2014 08:19 AM FORMER TOBACCO USER 7Y OR GREATE R [facility] Dec 09, 2011 01:28 PM FORMER TOBACCO USER 7Y OR RAQUEL Waddell [facility] Encounter Notes: All associated encounter notes This section contains the clinical notes associated to the Encounter. Date/Time Encounter Note(s) Provider Source Dec 20, 2023 03:40 PM ATTENDING NOTE: LOCAL TITLE: REHAB MEDICINE CARE COORDINATION STANDARD TITLE: ATTENDING NOTE DATE OF NOTE: DEC 20, 2023@15:40 ENTRY DATE: DEC 20, 2023@15:40:06 AUTHOR: LAILA KING EXP COSIGNER: URGENCY: STATUS: COMPLETED Reviewed pt's community care documentation with request for: pt lift with divided leg sling, tub transfer bench, grab bars x 5 (no location indicated), dressing stick, Environmental Epidemiologist, gait belt, long handled shoe horn, commode chair, hand held shower hose, hospital bed, Environmental Epidemiologist PERTINENT 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 CONSULTS PLACED: pt lift with divided leg sling, tub transfer bench, dressing stick, Environmental Epidemiologist, gait belt, long handled shoe horn, commode chair, hand held shower hose, hospital bed, Environmental Epidemiologist Address verified, therapist notified, and documentation saved in ECR PMR THERAPY folder. TOTAL TIME CASE MGMT: 15' /dexter/ LAILA KING DOCTORATE PHYSICAL THERAPIST, CLT Signed: 12/20/2023 15:44 LAILA KING [facility]
--- OUTSIDE RECORDS SUMMARY | 2024-01-23 10:37 | XMS_ITS | Encounter Summary ---
Author Name [facility] [facility] [place] Organization [facility] [place] [facility] [place] Address [address] [place] [address] Care Team Providers Care Aeronautical Engineering Technologist Name Role Phone ROMANA GOLDSTEIN Primary Care [...] PART A Jul 21, 2007 PART A [id number] [phone] PRATEEK COHN PATIENT Selected Encounter This section includes the information on record at [place] for the Encounter. Date/Time Encounter Type Encounter Description Reason Provider Source Dec 21, 2023 03:20 PM CASE MANAGEMENT PHYSICAL THERAPY ICD-10-CM Z74.09 Other reduced mobility VERONICA KING E Encounter Template Text not used by [place] Assessments - Encounter Diagnoses This section includes the primary and secondary diagnoses documented for the Encounter. Date/Time Primary/Secondary Diagnosis Diagnosis Name Provider Source Dec 21, 2023 03:25 PM PRIMARY Other reduced mobility VERONICA KING [facility] Plan of Treatment: Future Appointments (+ 6 months) and Future Tests (+/- 45 days) The Plan of Treatment section includes future care activities for the patient from all [place] treatmentfacilities. This section includes future appointments and future orders which are active, pending or scheduled. Future Appointments This section includes appointments that were scheduled to occur 6 months from the date of the Encounter, up to a maximum of 20 appointments. The data comes from all [place] treatment facilities. Appointment Date/Time Appointment Type Appointme nt Facility Name Dec 29, 2023 07:00 AM AM[place]ORY [place]ONE [place] [facility] Jan 11, 2024 01:00 PM AMBULATORY - MEDICINE [place] ([facility]) Jan 11, 2024 02:30 PM AMBULATORY - PS[place]CHIATRY [place] ([facility]) Jan 31, 2024 09:00 AM AMBULATORY - PS[place]CHIATRY [place] ([facility]) Jan 31, 2024 09:01 AM [facility] Active, Pending, and Scheduled Orders This section includes a listing of several types of active, pending, and scheduled orders, including clinic medications orders, diagnostic test orders, procedure orders and consult orders; where the start date of the order is 45 days before the date of the Encounter or 45 days after the date of theEncounter. The data comes from all [facility]. Test Date/Time Test Type Test Details Facility Name Jan 11, 2024 04:27 PM Consult Order MH OUTPT-N EUROPSYCHOLOGY Cons Locomotive Operator Helper's Choice [place] ([facility]) Social History: Smoking Status (Most current) and Tobacco Use (All prior to encounter date) This section includes the most current, and the historical, smoking and tobacco- related health factors from the [place] facility where the Encounter took place. Current Smoking Status This section includes the most current smoking, or tobacco-related health factor, from the [place] facility where the Encounter took place. Date/Time Current Smoking Status Comment Facil ity Dec 01, 2017 02:51 PM LIFETIME NON-TOBACCO USER [facility] Tobacco Use History This section includes a history of the smoking, or tobacco-related health factors, that were collected on or before the date of the Encounter. The data comes from the [place] facility where the Encounter took place. Date/Time Smoking Status/Tobacco Use Comment F acility Aug 10, 2016 09:08 AM FORMER TOBACCO USER 7Y OR GREATE R [facility] Aug 10, 2016 09:08 AM LIFETIME NON-TOBACCO USER [facility] Sep 06, 2014 08:19 AM FORMER TOBACCO USER 7Y OR GREATE R [facility] Dec 09, 2011 01:28 PM FORMER TOBACCO USER 7Y OR RAQUEL R [facility] Encounter Notes: All associated encounter notes This section contains the clinical notes associated to the Encounter. Date/Time Encounter Note(s) Provider Source Jan 02, 2024 02:28 PM AUDIOLOGY NOTE: LOCAL TITLE: AUDIOLOGY CLINIC NOTE STANDARD TITLE: AUDIOLOGY NOTE DATE OF NOTE: JAN 02, 2024@14:28 ENTRY DATE: JAN 02, 2024@14:28:13 AUTHOR: ESPERANZA ANDRADE EXP COSIGNER: URGENCY: STATUS: COMPLETED PROJECT TECHNICIAN ORDERED BOTH RESOUND [place] 60 MINI INEZ-R AIDS, UNDER ONE TIME WARRANTY REPLACEMENT. RESTORE SETTINGS AND MAIL AIDS TO WHEN COMPLETE /dexter/ ESPERANZA ANDRADE AUDIO TECH Signed: 01/02/2024 14:29 ESPERANZA ANDRADE [facility] Dec 21, 2023 03:22 PM ATTENDING NOTE: LOCAL TITLE: REHAB MEDICINE CARE COORDINATION STANDARD TITLE: ATTENDING NOTE DATE OF NOTE: DEC 21, 2023@15:22 ENTRY DATE: DEC 21, 2023@15:22:43 AUTHOR: LAILA KING EXP COSIGNER: URGENCY: STATUS: COMPLETED REHAB MEDICINE CARE COORDINATION Has ADDENDA Reviewed pt's community care documentation with request for: ramp to enter the home. PERTINENT HX: TBI s/p fall from ladder. FUNCTIONAL MOBILITY: Pt currently requires assist for all mobility. Pt remains inpatient, however family is clear they desire to take him home. SW from [facility] reported pt required ramp, however DME form was not filed out indicating need for ramp. Meat Clerk attempted to contact [facility] SW, PT and OT several times. Eventually able to connect with OT Ailyn Reeder who provided appropriate form. Of note, documentation was sent with previous file with notes indicating ramp as well. Inquired about timeline for install of ramp, anticipate soonest ramp can be installed in 12/27/23. CONSULTS PLACED: ramp to enter home at back door. Address verified, therapist notified, and documentation saved in ECR PMR THERAPY folder. TOTAL TIME CASE MGMT: 60' /dexter/ LAILA KING DOCTORATE PHYSICAL THERAPIST, CLT Signed: 12/21/2023 15:25 12/21/2023 ADDENDUM STATUS: COMPLETED Of note, still awaiting recommendation for location placement for 5 grab bars requested. /dexter/ LAILA KING DOCTORATE PHYSICAL THERAPIST, CLT Signed: 12/21/2023 15:39 LAILA KING [facility]
--- OUTSIDE RECORDS SUMMARY | 2024-01-23 10:37 | XMS_ITS | Encounter Summary ---
Author Name [facility] [place] [facility] [place] Address [address], [place] [address] Care Team Providers Care Defensive Secondary Coach Name Role Phone ROMANA GOLDSTEIN Primary Care [...] PART A Jul 21, 2007 PART A [id number] [phone] PRATEEK COHN PATIENT Selected Encounter This section includes the information on record at [place] for the Encounter. Date/Time Encounter Type Encounter Description Reason Pro vider Source Jan 02, 2024 02:47 PM Outpatient Encounter TELEPHONE PRIMARY CARE IHE Encounter Template Text not used by [place] Plan of Treatment: Future Appointments (+ 6 months) and Future Tests (+/- 45 days) The Plan of Treatment section includes future care activities for the patient from all [place] treatmentfacilities. This section includes future appointments and future orders which are active, pending or scheduled. Future Appointments This section includes appointments that were scheduled to occur 6 months from the date of the Encounter, up to a maximum of 20 appointments. The data comes from all [place] treatment facilities. Appointment Date/Time Appointment Type Appointme nt Facility Name Jan 11, 2024 01:00 PM AMBULATORY - MEDICINE [facility] ([facility]) Jan 11, 2024 02:30 PM AMBULATORY - PS[facility]CHIATRY [facility] ([facility]) Jan 31, 2024 09:00 AM AMBULATORY - PS[facility]CHIATRY [facility] ([facility]) Jan 31, 2024 09:01 AM AM[place] [place] [facility] [facility] Active, Pending, and Scheduled Orders This section includes a listing of several types of active, pending, and scheduled orders, including clinic medications orders, diagnostic test orders, procedure orders and consult orders; where the start date of the order is 45 days before the date of the Encounter or 45 days after the date of theEncounter. The data comes from all [place] treatment facilities. Test Date/Time Test Type Test Details Facility Name Jan 11, 2024 04:27 PM Consult Order MH OUTPT-N EUROPSYCHOLOGY Cons Inside Sales Recruiter's [facility] ([facility]) Social History: Smoking Status (Most current) [...] 01, 2017 02:51 PM LIFETIME NON-TOBACCO USER [facility] Tobacco Use History This section includes a history of the smoking, or tobacco-related health factors, that were collected on or before the date of the Encounter. The data comes from the [place] facility where the Encounter took place. Date/Time Smoking Status/Tobacco Use Comment F acility Aug 10, 2016 09:08 AM FORMER TOBACCO USER 7Y OR GREATE R [facility] Aug 10, 2016 09:08 AM LIFETIME NON-TOBACCO USER [facility] Sep 06, 2014 08:19 AM FORMER TOBACCO USER 7Y OR GREATE R [facility] Dec 09, 2011 01:28 PM FORMER TOBACCO USER 7Y OR GREATE R [facility] Encounter Notes: All associated encounter notes This section contains the clinical notes associated to the Encounter. Date/Time Encounter Note(s) Provider Source Jan 02, 2024 02:47 PM SOCIAL WORK NOTE: LOCAL TITLE: SOCIAL WORK PROGRESS NOTE STANDARD TITLE: SOCIAL WORK NOTE DATE OF NOTE: JAN 02, 2024@14:47 ENTRY DATE: JAN 02, 2024@14:47:24 AUTHOR: ELLEN LEON COSIGNER: URGENCY: STATUS: COMPLETED PCSW received message from 's spouse- Kenny inquiring about hearing aids. This song writer placed return call to [place] on this day (01/02/24) at [phone] and spoke with her. Kenny stated the hospital therapy staff requested Veterans hearing aids be brought in so that during rehab he could hear better. She stated she did that and they lost them. She would like to talk with someone about getting them through the [place] but having [place] pay for them as [place] told her they would pay for new ones since they lost the old ones. Factory Manager suggested calling the Audiology Clinic or the audiology Filling Mixer Shonna Ga and provided phone numbers. PCSW is kindly cosigning Audiology Filling Mixer as an FYI. PCSW to remain available. /dexter/ ADELSO Sandoval Primary Care Filling Mixer Signed: 01/02/2024 14:52 Receipt Acknowledged By: 01/06/2024 10:11 /dexter/ ADELSO BOLAÑOS SENIOR NETWORK SYSTEMS ENGINEER ELLEN LEON [facility]
--- OUTSIDE RECORDS SUMMARY | 2024-01-23 10:37 | XMS_ITS | Encounter Summary ---
Author Name [facility] [place] [facility] [place] Address [address], [place] [address] Care Team Providers Care Surgical Nurse Name Role Phone ROMANA GOLDSTEIN Primary Care [...] PART A Jul 21, 2007 PART A [id number] [phone] PRATEEK COHN PATIENT Selected Encounter This section includes the information on record at [place] for the Encounter. Date/Time Encounter Type Encounter Description Reason Pro vider Source Dec 23, 2023 11:36 AM Outpatient Encounter COMMUNITY CARE CONSULT IHE Encounter Template Text not used by [place] Plan of Treatment: Future Appointments (+ 6 months) and Future Tests (+/- 45 days) The Plan of Treatment section includes future care activities for the patient from all [place] treatmentfacilities. This section includes future appointments and future orders which are active, pending or scheduled. Future Appointments This section includes appointments that were scheduled to occur 6 months from the date of the Encounter, up to a maximum of 20 appointments. The data comes from all [place] treatment facilities. Appointment Date/Time Appointment Type Appointme nt Facility Name Dec 29, 2023 07:00 AM AM[place]ORY - [place]ONE [place] [facility] Jan 11, 2024 01:00 PM AMBULATORY - MEDICINE [facility] ([facility]) Jan 11, 2024 02:30 PM AMBULATORY - PS[facility]CHIATRY [facility] ([facility]) Jan 31, 2024 09:00 AM AMBULATORY - PS[facility]CHIATRY [facility] ([facility]) Jan 31, 2024 09:01 AM AMBUL[place]ORY [place] [facility] Active, Pending, and Scheduled Orders This section includes a listing of several types of active, pending, and scheduled orders, including clinic medications orders, diagnostic test orders, procedure orders and consult orders; where the start date of the order is 45 days before the date of the Encounter or 45 days after the date of theEncounter. The data comes from all [place] treatment facilities. Test Date/Time Test Type Test Details Facility Name Jan 11, 2024 04:27 PM Consult Order MH OUTPT-N EUROPSYCHOLOGY Cons [facility] [facility] [place] ([facility]) Social History: Smoking Status (Most current) [...] Encounter Note(s) Provider Source Dec 23, 2023 11:36 AM NONVA NOTE: LOCAL TITLE: COMMUNITY CARE-CARE COORDINATION PLAN NOTE STANDARD TITLE: NONVA NOTE DATE OF NOTE: DEC 23, 2023@11:36 ENTRY DATE: DEC 23, 2023@11:36:37 AUTHOR: DANA PATHAK COSIGNER: URGENCY: STATUS: COMPLETED [employer] has been in contact with veterans with in attempts to set up home care. Have also been in contact with [facility] Romana CONTRERAS and [place] [facility] CONTRERAS in attempts to correctly set up home care so that his complex needs are met. This has proven to be difficult d/t inaccurate information given to narrative writer from pt. at times. Pt.'s requested [facility], stated she worked for them, and has a friend there that was willing to do the home care for pt. After speaking with Marcella at [facility], was thinking that the [place] would pay for 2- 8 hr shifts of skilled respite care per week. [employer]chant Police informed Marcella that [place] would most likely pay for 16 hrs a week of PCS (EMERGING TECHNOLOGIES DIRECTOR or respite) services given pt.'s high needs, but not 16 hrs of skilled care. [facility] told narrative writer, given that info, they would not be accepting the referral and they do not have EMERGING TECHNOLOGIES DIRECTOR available in [place], where pt. lives. [employer] relayed this message to via . Received a call from BEN Hardy working with family at [facility], where pt. is hospitalized. Romana stated that the wanted to use the agency [facility], and wants her friend Ana Jaegerliss (LAMINATING MACHINE TENDER) to be the pt's EMERGING TECHNOLOGIES DIRECTOR. [employer]chant Police was told to call Mani at [facility]. Merchant Police called Mani, agency is closed today, however Mani did answer. Stated he knows nothing about this referral, and doesnt know who Ana Jaegerliss is, but will try to make it work and did accept the referral. There is also a skilled referral entered for pt. stated she was an RN and can handle the skilled things, like meds and his catheter, so that was not needed. When speaking to the BEN at [facility] she the definately do need the skilled referral. Explained to BEN at [facility], they will have to inform pt.'s PCP at [place] of all the services needed so they can all be entered correctly on the consult for a home care agency. In speaking with [facility] CONTRERAS today. Pt. will be discharged some time next week. He will need a wc ramp installed, a hospital bed, and for his son to get there from [place] before pt. can dc to home. The longe term plan is for the Son's home in [place] to be remodeled, and then the he will have the pt. and his mom move there with him. At this time- Referral will be sent to [facility] for non-skilled. Wait for PACT to enter a new referral for skilled with all the serivices needed. /dexter/ DANA PATHAK preassembler and inspector Clothing Man Signed: 12/23/2023 12:16 DANA PATHAK [facility]
--- OUTSIDE RECORDS SUMMARY | 2024-01-23 10:37 | XMS_ITS | Encounter Summary ---
Author Name [facility] [place] Address [address], [place] [address] Care Team Providers Care Audit Practice Intern Name Role Phone ROMANA GOLDSTEIN Primary Care [...] PART A Jul 21, 2007 PART A [id number] [phone] PRATEEK GRAYSON PATIENT Selected Encounter This section includes the information on record at [place] for the Encounter. Date/Time Encounter Type Encounter Description Reason Provider Source Dec 23, 2023 12:00 PM Outpatient Encounter COMMUNITY CARE CONSULT DANA MANLEY [facility] Encounter Template Text not used by CT Plan of Treatment: Future Appointments (+ 6 months) and Future Tests (+/- 45 days) The Plan of Treatment section includes future care activities for the patient from all [place] treatmentfacilities. This section includes future appointments and future orders which are active, pending or scheduled. Future Appointments This section includes appointments that were scheduled to occur 6 months from the date of the Encounter, up to a maximum of 20 appointments. The data comes from all [place] treatment facilities. Appointment Date/Time Appointment Type Appointme nt Facility Name Dec 29, 2023 07:00 AM [place]ORY [place]ONE [place] [facility] Jan 11, 2024 01:00 PM AMBULATORY - MEDICINE [facility] ([facility]) Jan 11, 2024 02:30 PM AMBULATORY - PSYCHIATRY [facility] ([facility]) Jan 31, 2024 09:00 AM AMBULATORY - PS[facility]CHIATRY [facility] ([facility]) Jan 31, 2024 09:01 AM AMBUL[place]ORY [place] [facility] Active, Pending, and Scheduled Orders This section includes a listing of several types of active, pending, and scheduled orders, including clinic medications orders, diagnostic test orders, procedure orders and consult orders; where the start date of the order is 45 days before the date of the Encounter or 45 days after the date of theEncounter. The data comes from all [facility]. Test Date/Time Test Type Test Details Facility Name Jan 11, 2024 04:27 PM Consult Order MH OUTPT-N EUROPSYCHOLOGY Cons T[employer] Maker[facility] [place] ([facility]) Social History: Smoking Status (Most current) and Tobacco Use (All prior to encounter date) This section includes the most current, and the historical, smoking and tobacco- related health factors from the [place] facility where the Encounter took place. Current Smoking Status This section includes the most current smoking, or tobacco-related health factor, from the [place] facility where the Encounter took place. Date/Time Current Smoking Status Comment Facil ity Dec 01, 2017 02:51 PM LIFETIME NON-TOBACCO USER [facility] Tobacco Use History This section includes a history of the smoking, or tobacco-related health factors, that were collected on or before the date of the Encounter. The data comes from the [place] facility where the Encounter took place. Date/Time Smoking Status/Tobacco Use Comment F acility Aug 10, 2016 09:08 AM FORMER TOBACCO USER 7Y OR GREATE R [facility] Aug 10, 2016 09:08 AM LIFETIME NON-TOBACCO USER [facility] Sep 06, 2014 08:19 AM FORMER TOBACCO USER 7Y OR GREATE R [facility] Dec 09, 2011 01:28 PM FORMER TOBACCO USER 7Y OR GREATE R [facility] Encounter Notes: All associated encounter notes This section contains the clinical notes associated to the Encounter. Date/Time Encounter Note(s) Provider Source Dec 23, 2023 12:01 PM GERIATRIC MEDICINE NOTE: LOCAL TITLE: PERSONAL CARE SERVICES CASE MIX TOOL STANDARD TITLE: GERIATRIC MEDICINE NOTE DATE OF NOTE: DEC 23, 2023@12:01 ENTRY DATE: DEC 23, 2023@12:01 AUTHOR: DANA MANLEY EXP COSIGNER: URGENCY: STATUS: COMPLETED HCBS Case Mix & Budget Tool (CASE MIX) Date Given: 12/23/2023 Clinician: Dana Manley Location: [facility] : Prateek Grayson SSN: [id number] : [birth year] ([birth year]) Gender: Male Type of Evaluation: Initial Anticipated Start Date: 12/23/2023 Anticipated Length of Service: 6 months Case Mix Level: K ADL Category: High Questions and Answers: Q1. DRESSING *2 Need some help from another person to put your clothes on. Q2. GROOMING *2 Needs and get daily help from another person. Q3. BATHING *4 Need and get help washing and drying your body. Q4. EATING *3 Need and get some personal help with feeding or someone needs to be sure that you don't choke. Q5. BED MOBILITY *2 Always need and get help to sit up. Q6. TRANSFERRING *2 Need one other person to help you. Q7. WALKING *4 Cannot walk at all. Q8. BEHAVIOR 1 Occasional staff intervention / anxious, irritable, lethargic, demanding / responds to cues. Q9. COMMUNICATION 1 Usually Understood. Q10. TOILETING *2 Have accidents sometimes, but not more than once a week. Q11. 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 Q12. MDS 2.0/CPS: Short Term Memory (recall of what was learned or known) 1 Memory problem Q13. SPECIAL TREATMENTS 2 One or more [place] such as: 11. Other Q14. CLINICAL MONITORING 2 All shifts Q15. SPECIAL NURSING No Q16. NEUROMUSCULAR DIAGNOSIS No COMMENTS Stage 4 dementia, TBI. Info gathered from SOURCES 1. Person /dexter/ DANA MANLEY larry operator Senior Director Marketing Signed: 12/23/2023 12:36 DANA MANLEY [facility]
--- OUTSIDE RECORDS SUMMARY | 2024-01-23 10:37 | XMS_ITS | Encounter Summary ---
Author Name [facility] [place] Address [address], [place] [address] Care Team Providers Care Waste Transportation Technician Name Role Phone ROMANA GOLDSTEIN Primary Care [...] PART A Jul 21, 2007 PART A [id number] [phone] PRATEEK COHN PATIENT Selected Encounter This section includes the information on record at [place] for the Encounter. Date/Time Encounter Type Encounter Description Reason Pro vider Source Nov 23, 2023 12:00 AM Outpatient Encounter EVENT (HISTORICAL) IHE Encounter Template Text not used by [place] Plan of Treatment: Future Appointments (+ 6 months) and Future Tests (+/- 45 days) The Plan of Treatment section includes future care activities for the patient from all [place] treatmentfacilities. This section includes future appointments and future orders which are active, pending or scheduled. Future Appointments This section includes appointments that were scheduled to occur 6 months from the date of the Encounter, up to a maximum of 20 appointments. The data comes from all [place] treatment facilities. Appointment Date/Time Appointment Type Appointme nt Facility Name Dec 01, 2023 09:30 AM [facility]ONE [place] [facility] Dec 29, 2023 07:00 AM [facility] Jan 11, 2024 01:00 PM AMBULATORY - MEDICINE [facility] ([facility]) Jan 11, 2024 02:30 PM AMBULATORY - PSYCHIATRY [facility] ([facility]) Jan 31, 2024 09:00 AM AMBULATORY - PS[facility]CHIATRY [facility] ([facility]) Jan 31, 2024 09:01 AM [place] [facility] Immunizations: All administered on the encounter date This section contains immunizations associated to the Encounter. Immunization Series Date Issued Reaction Comments TDAP Nov 23, 2023 Social History: Smoking Status (Most current) and Tobacco Use (All prior to encounter date) This section includes the most current, and the historical, smoking and tobacco- related health factors from the [place] facility where the Encounter took place. Current Smoking Status This section includes the most current smoking, or tobacco-related health factor, from the [place] facility where the Encounter took place. Date/Time Current Smoking Status Comment Yann ity Dec 01, 2017 02:51 PM LIFETIME NON-TOBACCO USER [facility] Tobacco Use History This section includes a history of the smoking, or tobacco-related health factors, that were collected on or before the date of the Encounter. The data comes from the [place] facility where the Encounter took place. Date/Time Smoking Status/Tobacco Use Comment F acility Aug 10, 2016 09:08 AM FORMER TOBACCO USER 7Y OR GREATE R [facility] Aug 10, 2016 09:08 AM LIFETIME NON-TOBACCO USER [facility] Sep 06, 2014 08:19 AM FORMER TOBACCO USER 7Y OR GREATE R [facility] Dec 09, 2011 01:28 PM FORMER TOBACCO USER 7Y OR GREATE R [facility]
--- OUTSIDE RECORDS SUMMARY | 2024-01-23 10:38 | XMS_ITS | Encounter Summary ---
Author Name [place] Address [address], [place] [address] Care Team Providers Care Net Software Engineer Name Role Phone ROMANA GOLDSTEIN Primary Care [...] PART A Jul 21, 2007 PART A [id number] [phone] PRATEEK COHN PATIENT Selected Encounter This section includes the information on record at [place] for the Encounter. Date/Time Encounter Type Encounter Description Reason Pro vider Source Jan 11, 2024 01:47 PM Outpatient Encounter TELEPHONE PRIMARY CARE IHE Encounter Template Text not used by [place] Plan of Treatment: Future Appointments (+ 6 months) and Future Tests (+/- 45 days) The Plan of Treatment section includes future care activities for the patient from all [place] treatmentfacilities. This section includes future appointments and future orders which are active, pending or scheduled. Future Appointments This section includes appointments that were scheduled to occur 6 months from the date of the Encounter, up to a maximum of 20 appointments. The data comes from all [place] treatment facilities. Appointment Date/Time Appointment Type Appointme nt Facility Name Jan 31, 2024 09:00 AM AMBULATORY - PSYCHIATRY [facility] ([facility]) Jan 31, 2024 09:01 AM AMBULATORY - PSYCHIATRY [facility] Active, Pending, and Scheduled Orders This section includes a listing of several types of active, pending, and scheduled orders, including clinic medications orders, diagnostic test orders, procedure orders and consult orders; where the start date of the order is 45 days before the date of the Encounter or 45 days after the date of theEncounter. The data comes from all [place] treatment facilities. Test Date/Time Test Type Test Details Facility Name Jan 11, 2024 04:27 PM Consult Order MH OUTPT-N EUROPSYCHOLOGY Cons [employer] [facility] [place] ([facility]) Social History: Smoking Status (Most current) and Tobacco Use (All prior to encounter date) This section includes the most current, and the historical, smoking and tobacco- related health factors from the [place] facility where the Encounter took place. Current Smoking Status This section includes the most current smoking, or tobacco-related health factor, from the [place] facility where the Encounter took place. Date/Time Current Smoking Status Comment Facil ity Dec 01, 2017 02:51 PM LIFETIME NON-TOBACCO USER [facility] Tobacco Use History This section includes a history of the smoking, or tobacco-related health factors, that were collected on or before the date of the Encounter. The data comes from the [place] facility where the Encounter took place. Date/Time Smoking Status/Tobacco Use Comment F acility Aug 10, 2016 09:08 AM FORMER TOBACCO USER 7Y OR GREATE R [facility] Aug 10, 2016 09:08 AM LIFETIME NON-TOBACCO USER [facility] Sep 06, 2014 08:19 AM FORMER TOBACCO USER 7Y OR GREATE R [facility] Dec 09, 2011 01:28 PM FORMER TOBACCO USER 7Y OR GREATE R [facility] Encounter Notes: All associated encounter notes This section contains the clinical notes associated to the Encounter. Date/Time Encounter Note(s) Provider Source Jan 09, 2024 10:30 AM SOCIAL WORK NOTE: LOCAL TITLE: SOCIAL WORK PROGRESS NOTE STANDARD TITLE: SOCIAL WORK NOTE DATE OF NOTE: JAN 09, 2024@10:30 ENTRY DATE: JAN 11, 2024@13:48:49 AUTHOR: ELLEN LEON COSIGNER: URGENCY: STATUS: COMPLETED PCSW received a message from [place]'s spouse- Faviola inquiring about returning the hospital bed. This advertising writer placed return call on 01/09/24 to [phone] and spoke with Faviola- [place]'s spouse and informed her she can call [facility] to return it. She verbalized understanding and stated she had the number and would do that. Faviola also asked about no refilling the cath supplies, advertising writer advised her that I thought supplies need to be called in for refill so she wouldn't need to call and cancel any auto-refills, she verbalzied understanding. PCSW to remain available. /dexter/ ADELSO Sandoval Primary Care Slime Plant Operator Signed: 01/11/2024 13:55 ELLEN LEON ([facility])
--- OUTSIDE RECORDS SUMMARY | 2024-01-23 10:38 | XMS_ITS | Encounter Summary ---
Author Name [facility] [place] [facility] [place] Address [address] [place] [address] Care Team Providers Care Piano Sounding Board Matcher Name Role Phone ROMANA GOLDSTEIN Primary Care [...] PART A Jul 21, 2007 PART A [id number] [phone] PRATEEK COHN PATIENT Selected Encounter This section includes the information on record at [place] for the Encounter. 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 This section includes future appointments and future orders which are active, pending or scheduled. Future Appointments This section includes appointments that were scheduled to occur 6 months from the date of the Encounter, up to a maximum of 20 appointments. The data comes from all [place] treatment facilities. Appointment Date/Time Appointment Type Appointme nt Facility Name Jan 31, 2024 09:00 AM AMBULATORY - [facility]RY [facility] ([facility]) Jan 31, 2024 09:01 AM AMBULATORY - PS[facility]CHIATRY [facility] Active, Pending, and Scheduled Orders This section includes a listing of several types of active, pending, and scheduled orders, including clinic medications orders, diagnostic test orders, procedure orders and consult orders; where the start date of the order is 45 days before the date of the Encounter or 45 days after the date of theEncounter. The data comes from all [place] treatment facilities. Test Date/Time Test Type Test Details Facility Name Jan 11, 2024 04:27 PM Consult Order MH OUTPT-N EUROPSYCHOLOGY Cons [employer] Analyst[facility] ([facility]) Vital Signs: All taken on the encounter date This section contains inpatient and outpatient Vital Signs collected on the date of the Encounter. Date/Time Temperature Pulse Blood Pressure Respiratory Rate SP02 Pain Height Weight Body Mass Index Source Jan 11, 2024 01:37 PM 83 131/70 96 [facility] ([facility]) Jan 11, 2024 01:31 PM 97.2 81 146/73 18 96 0 183.8 26 [facility] ([facility]) Social History: Smoking Status (Most current) and Tobacco Use (All prior to encounter date) This section includes the most current, and the historical, smoking and tobacco- related health factors from the [place] facility where the Encounter took place. Current Smoking Status This section includes the most current smoking, or tobacco-related health factor, from the [place] facility where the Encounter took place. Date/Time Current Smoking Status Comment Yann ferrer Jan 11, 2024 01:00 PM [place]-TOBACCO NEVER USED [facility] ([facility]) Tobacco Use History This section includes a history of the smoking, or tobacco-related health factors, that were collected on or before the date of the Encounter. The data comes from the [place] facility where the Encounter took place. Date/Time Smoking Status/Tobacco Use Comment F benny Sep 07, 2021 08:00 AM [place]-TOBACCO NEVER USED [facility] ([facility]) Encounter Notes: All associated encounter notes This section contains the clinical notes associated to the Encounter. Date/Time Encounter Note(s) Provider Source Jan 11, 2024 01:45 PM PRIMARY CARE NOTE: LOCAL TITLE: CB PROGRESS NOTE-ANA LAURA STANDARD TITLE: PRIMARY CARE NOTE DATE OF [...] testing, she reports when was hospitalized that [place] did testing before they left, and he was a level 4 in dementia. - PCP combed the [place] charts and no cognitive testing was able [...] type Social History: 1. , lives in [place] with , son, [id number], and 2 grandchildren 2. 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 : [employer] [id number] 4. Tobacco: lifetime nonsmoker 5. Alcohol: denies [...] Remote Allergy/ADR Data available for this patient [facility] No Known Allergies Active Medications: + +--------+----- ---+--------+--------+ Medication (Local) New Med Old Dose New Dose Discontd + +--------+----- ---+--------+--------+ CATHETER,SELF-CATH COUDE 14FR COLO#[id number] Directions: USE CATHETER FOUR TIMES A DAY [...] Allergy/ADR Data available for this patient [facility] No Known Allergies Active and Recently Outpatient Medications (including Supplies): Issue Date Status Last Fill Active Outpatient Medications Refills Expiration 1) CATHETER,SELF-CATH COUDE 14FR COLO#[id number] ACTIVE Issu:12-26-23 Qty: 120 for 30 days [...] APRN, CNP Signed: 01/11/2024 14:54 ROMANA GOLDSTEIN ([facility]) Jan 11, 2024 01:36 PM ADVANCE DIRECTIVE: LOCAL TITLE: AD NOTIFICATION AND SCREENING STANDARD TITLE: ADVANCE DIRECTIVE DATE OF NOTE: JAN 11, 2024@13:36 ENTRY DATE: JAN 11, 2024@13:36:48 AUTHOR: THANH BOURNE EXP COSIGNER: URGENCY: STATUS: COMPLETED ADVANCE DIRECTIVE NOTIFICATION: Patient was given written notification of the following rights: 1. Accept or refuse any medical treatment. 2. Complete a durable power of senior attorney for health care. 3. Complete a living will. ADVANCE DIRECTIVE SCREENING: Does patient have an Advance Directive? The patient does not have an Advance Directive. The patient does not wish to create an Advance Directive for health care. /dexter/ THANH Santos [facility] DOCUMENT IMAGE TECHNICIAN Signed: 01/11/2024 13:37 THANH BOURNE ([facility]) Jan 11, 2024 01:32 PM PRIMARY CARE NURSI NG NOTE: LOCAL TITLE: [facility] NURSING PROGRESS NOTE STANDARD TITLE: PRIMARY CARE NURSING NOTE DATE OF NOTE: JAN 11, 2024@13:32 ENTRY DATE: JAN 11, 2024@13:32:40 AUTHOR: THANH BOURNE EXP COSIGNER: URGENCY: STATUS: COMPLETED TYPE OF VISIT: [...] pressure ulcers, or a wound from a clinical laboratory medical director or Patient is bed-confined or a wheelchair-user or Patient requires assistance to transfer/change position No, Skin Screen is Negative Home Abuse/Violence Screen Is your home free of abuse and violence? Yes MOVE! Program Screen Body Mass Index (BMI)= 25.8 [place]: Collection DT Specimen Test Name Result Units Ref Range 09/07/2021 09:19 BLOOD HEMOGLOBIN A1C 6.0 % 4.0 - 6.0 [place] Hgb A1C: No data available [place] Hgb A1C: No data available Point of Care Hgb A1C: POC HGB A1C____ Outpatient Nutrition Screen Body Mass Index (BMI)= 25.8 [place]: Collection DT Specimen Test Name Result Units Ref Range 09/07/2021 09:19 BLOOD HEMOGLOBIN A1C 6.0 % 4.0 - 6.0 [place] Hgb A1C: No data available [place] Hgb A1C: No data available Point of [...] Not at all Suicide Screen: C-SSRS Screening [place] Suicide Severity Rating Scale (C-SSRS) screener 1. [...] Not worried about housing near future The [place] reports the following: Within the past 12 months, you worried whether your food would run out before you got money to buy more. Never true Within the past 12 months, the food you bought just didn't last and you didn't have money to get more. Never true Food Assistance Programs [facility] Food Assistance Programs [facility] Pneumococcal Conjugate Vaccine (PCV15/PCV20): Refuses PCV vaccine [...] due to responses to other questions. 5. [place] numb or detached from people, activities, or your surroundings? Response not required due to responses to other questions. 6. [place] guilty or unable to stop blaming yourself or others for the event(s) or any problems the event(s) may have caused? Response not required due to responses to other questions. 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 [place] has no concerns about toxic exposure(s) while serving in the Armed Forces. The /caregiver was informed that we will continue to ask this screening question every 5 years. They can contact their provider/healthcare team if they have concerns about exposures and would like to be screened sooner. Printed information was offered and provided if desired. /dexter/ THANH Santos [facility] DOCUMENT IMAGE TECHNICIAN Signed: 01/11/2024 13:36 THANH BOURNE ([facility])
--- OUTSIDE RECORDS SUMMARY | 2024-01-23 10:38 | XMS_ITS | Encounter Summary ---
Author Name [facility] [place] [facility] [place] [facility] [place] Address [address], [place] [address] Care Team Providers Care Form Designer Name Role Phone ROMANA GOLDTSEIN Primary Care Provider Unavailabl e Insurance Providers: [...] PART A Jul 21, 2007 PART A [id number] [phone] PRATEEK GRAYSON PATIENT Selected Encounter This section includes the information on record at [place] for the Encounter. Date/Time Encounter Type Encounter Description Reason Provider Source Jan 11, 2024 02:48 PM Outpatient Encounter MENTAL HEALTH [facility] ROMANA GOLDSTEIN Tiny Encounter Template Text not used by [place] Plan of Treatment: Future Appointments (+ 6 months) and Future Tests (+/- 45 days) The Plan of Treatment section includes future care activities for the patient from all [place] treatmentfacilities. This section includes future appointments and future orders which are active, pending or scheduled. Future Appointments This section includes appointments that were scheduled to occur 6 months from the date of the Encounter, up to a maximum of 20 appointments. The data comes from all [facility]. Appointment Date/Time Appointment Type Appointme nt Facility Name Jan 31, 2024 09:00 AM AMBULATORY - PS[facility]CHIATRY [facility] ([facility]) Jan 31, 2024 09:01 AM AM[facility]UL[facility] Active, Pending, and Scheduled Orders This section includes a listing of several types of active, pending, and scheduled orders, including clinic medications orders, diagnostic test orders, procedure orders and consult orders; where the start date of the order is 45 days before the date of the Encounter or 45 days after the date of theEncounter. The data comes from all [facility]. Test Date/Time Test Type Test Details Facility Name Jan 11, 2024 04:27 PM Consult Order MH OUTPT-N EUROPSYCHOLOGY Cons Take Off Worker's Sole ANA LAURA ([facility]) Social History: Smoking Status (Most current) and Tobacco Use (All prior to encounter date) This section includes the most current, and the historical, smoking and tobacco- related health factors from the [place] facility where the Encounter took place. Current Smoking Status This section includes the most current smoking, or tobacco-related health factor, from the [place] facility where the Encounter took place. Date/Time Current Smoking Status Comment Facil ity Dec 01, 2017 02:51 PM LIFETIME NON-TOBACCO USER [facility] Tobacco Use History This section includes a history of the smoking, or tobacco-related health factors, that were collected on or before the date of the Encounter. The data comes from the [place] facility where the Encounter took place. Date/Time [...] Encounter Note(s) Provider Source Jan 11, 2024 02:48 PM MENTAL HEALTH DIAG NOSTIC STUDY NOTE: LOCAL TITLE: MENTAL HEALTH DIAGNOSTIC STUDY NOTE STANDARD TITLE: MENTAL HEALTH DIAGNOSTIC STUDY NOTE DATE OF NOTE: JAN 11, 2024@14:48:57 ENTRY DATE: JAN 11, 2024@14:48:57 AUTHOR: ROMANA GOLDSTEIN EXP COSIGNER: URGENCY: STATUS: COMPLETED [place] Cognitive Assessment Date Given: 01/11/2024 Clinician: Romana Goldstein Location: [facility] Rn Kiefer: Prateek Grayson SSN: [id number] : [birth year] ([birth year]) Gender: Male MoCA Score: 8 A score of 26 or greater is considered normal. Questions and Answers 1. Alternating [place] Making. Correct Pattern: 1-A- 2- B- 3- C- 4- D- 5- E, without drawing any lines that cross. Any error that is not immediately self-corrected is scored incorrect. Incorrect 2. Cube-Visuoconstructional Skills. Correct: All must be present: three-dimensional, all lines are drawn, no line is added, lines are relatively parallel and their length is similar. Correct 3. Draw a clock. 3A. Clock face must be a [place] with only minor distortion acceptable (e.g., slight imperfection on closing the [place]). Correct [place] 3B. All clock numbers must be present with no additional numbers; numbers must be in the correct order and placed in the approximate quadrants on the clock face; [place] numerals are acceptable; numbers can be placed outside the [place] contour. Incorrect 3C. There must be two hands jointly indicating the correct time; the hour hand must be clearly shorter than the minute hand; hands must be centered within the clock face with their junction close to the clock center. Incorrect 4. Name pictured animals 4A. Lion Incorrect 4B. Rhinoceros or rhino Incorrect 4C. Camel or dromedary Correctly named camel 5. Attention 5A. Forward Digit Span. Correct forward digit span 5B. Backward Digit Span. Correct response for the backwards trial is 2-4-7. Incorrect 5C. Vigilance. Correct when there is zero to one errors (an error is a tap on a wrong letter or a failure to tap on letter A). Incorrect 5D. Serial 7s starting at 100. Continue for five responses. Two or three correct subtractions 6. Sentence repetition 6A. I only know that Delbert is the one to help today. Incorrect 6B. The cat always hid under the couch when dogs were in the room. Incorrect 7. Words beginning with the letter F. Incorrect: 10 or less words in a minute. 8. Abstraction 8A. Similarity between TRAIN - BICYCLE. Incorrect 8B. Similarity between WATCH - RULER. Correct 9. Delayed recall 9A. Recall FACE Incorrect 9B. Recall VELVET. Incorrect 9C. Recall ISLAM. Incorrect 9D. Recall JORGE. Incorrect 9E. Recall RED. Incorrect 10. Orientation 10A. Today's date, Incorrect 10B. Current month Incorrect 10C. Current year Incorrect 10D. Day of the week Incorrect 10E. What place is this? Incorrect 10F. What city are we in? Correct 11. Years of formal education: More than twelve years. Copyright (c) Crystal Saucedo MD Information contained in this note is based on a self-report assessment and is not sufficient to use alone for diagnostic purposes. Assessment results should be verified for accuracy and used in conjunction with other diagnostic activities and procedures. /dexter/ Romana Goldstein APRN, CNP Signed: 01/11/2024 14:56 ROMANA GOLDSTEIN ([facility])
--- OUTSIDE RECORDS SUMMARY | 2024-01-23 10:38 | XMS_ITS | Encounter Summary ---
Author Name [facility] [place] [facility] [place] [facility] [place] Address [address] [place] [address] Care Team Providers Care Flask Fitter Name Role Phone ROMANA GOLDSTEIN Primary Care [...] PART A Jul 21, 2007 PART A [id number] [phone] PRATEEK COHN PATIENT Selected Encounter This section includes the information on record at [place] for the Encounter. Date/Time Encounter Type Encounter Description Reason Provider Source Jan 11, 2024 02:30 PM MH HEALTH ASSESS BY NON- MENTAL HEALTH CLINIC - IND ICD-10-CM F03.90 Unsp dementia, unsp severity, without beh/psych/mood /anx EDVIN GIRON Encounter Template Text not used by [facility] Assessments - Encounter Diagnoses This section includes the primary and secondary diagnoses documented for the Encounter. Date/Time Primary/Secondary Diagnosis Diagnosis Name Provider Source Jan 11, 2024 02:50 PM PRIMARY Unsp dementia, unsp severity, without beh/psych/mood/a nx EDVIN GIRON ([facility]) Plan of Treatment: Future Appointments (+ 6 months) and Future Tests (+/- 45 days) The Plan of Treatment section includes future care activities for the patient from all [place] treatmentfacilities. This section includes future appointments and future orders which are active, pending or scheduled. Future Appointments This section includes appointments that were scheduled to occur 6 months from the date of the Encounter, up to a maximum of 20 appointments. The data comes from all [place] treatment facilities. Appointment Date/Time Appointment Type Appointme nt Facility Name Jan 31, 2024 09:00 AM AMBULATORY - PSYCHIATRY [facility] ([facility]) Jan 31, 2024 09:01 AM AMBULATORY - PS[facility]CHIATRY [facility] Active, Pending, and Scheduled Orders This section includes a listing of several types of active, pending, and scheduled orders, including clinic medications orders, diagnostic test orders, procedure orders and consult orders; where the start date of the order is 45 days before the date of the Encounter or 45 days after the date of theEncounter. The data comes from all [facility] facilities. Test Date/Time Test Type Test Details Facility Name Jan 11, 2024 04:27 PM Consult Order OUTPT-N EUROPSYCHOLOGY Cons [facility] ([facility]) Vital Signs: All taken on the encounter date This section contains inpatient and outpatient Vital Signs collected on the date of the Encounter. Date/Time Temperature Pulse Blood Pressure Respiratory Rate SP02 Pain Height Weight Body Mass Index Source Jan 11, 2024 01:37 PM 83 131/70 96 [facility] ([facility]) Jan 11, 2024 01:31 PM 97.2 81 146/73 18 96 0 183.8 26 [facility] ([facility]) Social History: Smoking Status (Most current) and Tobacco Use (All prior to encounter date) This section includes the most current, and the historical, smoking and tobacco- related health factors from the [place] facility where the Encounter took place. Current Smoking Status This section includes the most current smoking, or tobacco-related health factor, from the [place] facility where the Encounter took place. Date/Time Current Smoking Status Comment Yann ity Jan 11, 2024 01:00 PM [place]-TOBACCO NEVER USED [place] [facility] ([facility]) Tobacco Use History This section includes a history of the smoking, or tobacco-related health factors, that were collected on or before the date of the Encounter. The data comes from the [place] facility where the Encounter took place. Date/Time Smoking Status/Tobacco Use Comment F acility Sep 07, 2021 08:00 AM [place]-TOBACCO NEVER USED [facility] ([facility])
--- OUTSIDE RECORDS SUMMARY | 2024-01-23 10:39 | XMS_ITS | Clinical Summary ---
Author Organization [facility] Address [address] [place] [address] Care Team Providers Care Train Operator Name Role Phone Elsewhere, Pcp Primary Care Provider Unavailabl e Source Comments Patient records contain information from all sites at [facility]. For routine questions regarding patient records, call [phone] during business hours, M-F 8:00 AM - 5:00 PM Central Time. Record requests for emergency care only can be directed to [phone] at any time.[facility] Allergies No known active allergies Medications Medication Sig Dispensed Refills Start Date End Date Status acetaminophen (TylenoL) 325 mg tablet Take 2 tablets (650 mg total) by mouth every 6 (six) hours as needed for pain or mild pain or score 1-3 of 10. 12/27/2023 Active polyethylene glycol (Miralax) 17 gram powder packet Take 1 packet (17 g total) by mouth daily. Dissolve each 17 g dose in 240 mLs (8 ounces) of beverage. 12/27/2023 Active melatonin 5 mg tablet Take 1 tablet (5 mg total) by mouth at bedtime as needed (If having troubles falling asleep). 12/27/2023 Active sennosides (Senokot) 8.6 mg tablet Take 2 tablets (17.2 mg total) by mouth 2 (two) times a day. 12/27/2023 Active finasteride (Proscar) 5 mg tablet Take 1 tablet (5 mg total) by mouth daily. 60 tablet 12/27/2023 Active metoprolol tartrate (Lopressor) 25 mg tablet Take 0.5 tablets (12.5 mg total) by mouth 2 (two) times a day. 60 tablet 12/27/2023 Active tamsulosin (Flomax) 0.4 mg 24 hr capsule Take 2 capsules (0.8 mg total) by mouth daily. 60 capsule 12/27/2023 Active finasteride (Proscar) 5 mg tablet Take 1 tablet (5 mg total) by mouth daily. 60 tablet 12/27/2023 12/27/2023 Discontinued tamsulosin (Flomax) 0.4 mg 24 hr capsule Take 2 capsules (0.8 mg total) by mouth daily. 60 capsule 12/27/2023 12/27/2023 Discontinued metoprolol tartrate (Lopressor) 25 mg tablet Take 0.5 tablets (12.5 mg total) by mouth 2 (two) times a day. 60 tablet 12/27/2023 12/27/2023 Discontinued Active Problems Problem Noted Date Diagnosed Date Injury Blood Vessel Abdomen Lower Back Pelvis In itial 12/19/2023 Retention Urinary 12/05/2023 Dysphagia 12/04/2023 Overweight Body Mass Index 25-29.9 Adult 024 Atelectasis 11/28/2023 Effusion Pleural 11/28/2023 Thrombosis Deep Vein Lower Extremity Left 2023 Delirium Acute 11/26/2023 Decline Cognitive 11/25/2023 Encephalopathy Metabolic 11/24/2023 History Of Falling 11/23/2023 Subarachnoid Hemorrhage Without Loss Of Consciou s Initial 11/23/2023 Contusion Scalp Initial 11/23/2023 Fracture Rib Single Closed Initial Left 11/23/19 24 Anemia Posthemorrhagic Acute (Blood Loss Anemia) 11/23/2023 Fracture Acetabulum Other Closed Initial Left Fracture Pelvis Multiple Maria G sed With Stable Disruption Pelvis Ring Initial 11/23/2023 Fracture Ilium Closed Initial Left 11/23/2023 Fracture Acetabulum Closed Initial Left 11/23/19 24 Encounters Date Type Department Care Team Description 12/28/2023 2:00 PM CDT Virtual Visit Department of Neurologic Surgery in [place], [place] [address] [place] [phone] Harmony Lomas APRN, C.N.P., M.S.N. Hemorrhage Subarachnoid Nontraumatic (HCC) 12/27/2023 Orders Only Department of Orthopedic Surgery in [place], [place] [address] [place] [address] Sera Avila P.A.-C., M.S. Fracture Acetabulum Closed Initial Left (HCC) (Primary Dx) 12/25/2023 10:15 AM CDT Ancillary Procedure Department of Nursing 12/01/2023 Orders Only Department of Orthopedic Surgery in [address] [phone] Sera Avila P.A.-C., M.S. Fracture Acetabulum Closed Initial Left (HCC) (Primary Dx) 11/25/2023 7:44 AM CDT Anesthesia Event RST [facility] OR [address] [place] [phone] Ale Tatum M.D. 11/25/2023 7:25 AM CDT - 11/25/2023 12:22 PM CDT Surgery RST [facility] OR [address] [place] [phone] Naveed Higuera M.D. OPEN REDUCTION INTERNAL FIXATION ACETABULUM. 11/25/2023 Clinical Communication RST HIM [address] [place] [phone] Vanessa Curiel APRN, ORCHESTRA MUSICIAN, D.N.P., M.S.N. 11/23/2023 8:45 PM CDT Ancillary Procedure Department of Nursing 11/23/2023 8:40 PM CDT Ancillary Procedure Department of Nursing 11/23/2023 12:47 PM CDT - 12/27/2023 10:25 AM CDT Hospital Encounter [facility], [facility], [facility], Fifth Floor [address] [place] [phone] Carol Miller M.D. Jason Navarrete M.D. Landen Quinonez M.D. Alexi Khan M.D. Kong Mendoza M.D. Alexandra Varela M.D. Tamiko Barnett M.D., M.S. Gabriel Ramirez M.D. Fracture Ilium Closed Initial Left (HCC) [...] Without Behavior Disturbance (HCC) [G30.9, F02.80]; Delirium [R41.0]; Decline Functional Status [R53.81]; Concern Patient Cognition Function [Z03.89]; Retention Urinary; Subarachnoid Hemorrhage Without Loss Of Conscious Initial (HCC); Effusion Pleural Discharge Disposition: Home-Health Care c from Last 3 Months Immunizations Name Administration [...] Sign Reading Time Taken Comments Blood Pressure 124/64 12/27/2023 8:20 AM CDT Pulse 76 12/27/2023 8:20 AM CDT Temperature 36.6 ??C (97.9 ??F) 12/27/2023 8:20 AM CD T Respiratory Rate 16 12/27/2023 8:20 AM CDT Oxygen Saturation 98% 12/27/2023 8:20 AM CDT Inhaled Oxygen Concentration - - Weight 93.4 kg (205 lb 14.6 oz) 12/17/2023 3:58 AM CDT Height 180.3 cm (5' 10.98) 11/29/2023 1:51 PM C DT Body Mass Index 28.73 11/29/2023 1:51 PM CDT Plan of Treatment Upcoming Encounters Date Type Department Care Team (Latest Contact Info) Description 01/30/2024 10:20 AM CDT Appointment Department of Laboratory Medicine in [address] [phone] Rody Arriaga APRN, C.N.P., D.N.P. [address] [place] [phone] 02/06/2024 10:30 AM CDT Comprehensive Visit Department of Urology in [place], [place] [address] [phone] Rogelio Díaz M.D. [address] [place] [phone] 02/13/2024 2:45 PM CDT Clinical Communication Virtual Review in [place], [place] [address] [place] [phone] 02/17/2024 12:00 PM CDT Appointment Department of Radiology, [facility], in [address] [phone] Sera Avila P.A.-C., M.S. [address] [place] [phone] 02/17/2024 12:30 PM CDT Office Visit Department of Orthopedic Surgery in [address] [phone] Naveed Higuera M.D. [address] [place] [phone] Health Maintenance Due Date Last Done Comments Zoster Vaccines (1 of 2) 1992 Pneumococcal vaccine (65+ ye ars) (1 of - PCV) 2007 COVID-19 Vaccine (1 - 2022-24 season) 2023 Fall Risk Screen (Annual) 06/20/2023 Influenza Vaccine (#1) 2024 DTaP,Tdap,and Td Vaccines (3 - Td or Tdap) 11/22/2033 11/23/2023, 02/04/2022, 09/20/2003 Medical Devices Implanted Type Area Carbon Paper Coating Supervisor Device Identifier Shelf Expiration Date Model / Serial / Lot Grft Ost Dbm p [facility] 5 - [id number] - [id number] Implanted:Qt y: 1 on 11/25/2023 by Naveed Higuera M.D. at [facility] Bone or Tissue Left: Acetabulum [employer]onic 05/29/2028 [id number] / [id number] / Clp Apr [facility] Int Md Shrt 9.75 - [id number] 3 Implanted:Qt y: 1 on 11/25/2023 by Naveed Higuera M.D. at [facility] Hardware e.g. pins/screws /rods Left: Acetabulum Ethicon [id number] 09/17/2028 [id number] / / [id number] Washr Rnd Ss Elkin Elkin 9x8x3.5 - [id number] 3 Implanted:Qt y: 1 on 11/25/2023 by Naveed Higuera M.D. at [facility] Hardware e.g. pins/screws /rods Left: Acetabulum [place] [id number] / / Plt Spctnl Qls 16h Lt - [id number] 3 Implanted:Qt y: 1 on 11/25/2023 by Naveed Higuera M.D. at [facility] Hardware e.g. pins/screws /rods Left: Acetabulum [place] [id number] / / Scrw Axs St Fthrd Lck 3.5x38 - [id number] 3 Implanted:Qt y: 1 on 11/25/2023 by Naveed Higuera M.D. at [facility] Hardware e.g. pins/screws /rods Left: Acetabulum [place] [id number] / / Scrw Axs St Fthrd Lck 3.5x26 - [id number] Implanted:Qt y: 1 on 11/25/2023 by Naveed Higuera M.D. at [facility] Hardware e.g. pins/screws /rods Left: Acetabulum Tamiko [id number] / / Scrw Axs St Fthrd Lck 3.5x55 - [id number] Implanted:Qt y: 2 on 11/25/2023 by Naveed Higuera M.D. at [facility] Hardware e.g. pins/screws /rods Left: Acetabulum [place] [id number] / / Scrw Axs St Fthrd Lck 3.5x28 - [id number] 3 Implanted:Qt y: 2 on 11/25/2023 by Naveed Higuera M.D. at [facility] Hardware e.g. pins/screws /rods Left: Acetabulum [place] [id number] / / Scrw Axs St Fthrd Lck 3.5x34 - [id number] 3 Implanted:Qt y: 1 on 11/25/2023 by Naveed Higuera M.D. at [facility] Hardware e.g. pins/screws /rods Left: Acetabulum [place] [id number] / / Scrw Axs St Fthrd Lck 3.5x90 - [id number] 3 Implanted:Qt y: 1 on 11/25/2023 by Naveed Higuera M.D. at [facility] Hardware e.g. pins/screws /rods Left: Acetabulum [place]iko [id number] / / Scrw Axs St Fthrd Lck 3.5x95 - [id number] 3 Implanted:Qt y: 1 on 11/25/2023 by Naveed Higuera M.D. at [facility] Hardware e.g. pins/screws /rods Left: Acetabulum Tamiko [id number] / / Scrw Axs St Fthrd Lck 3.5x120 - [id number] 3 Implanted:Qt y: 2 on 11/25/2023 by Naveed Higuera M.D. at [facility] Hardware e.g. pins/screws /rods Left: Acetabulum [place] [id number] / / Procedures Procedure Name Priority Date/Time Associated Diagnosis Comments CT HEAD WITHOUT IV CONTRAST RAD - Routine (most inpatients and all outpatients) 12/26/2023 11:13 AM CDT NURSING IMAGE EXAM Routine 12/25/2023 10:12 AM CDT DX PELVIS 3+ VIEWS RAD - Routine (most inpatients and all outpatients) 12/25/2023 8:47 AM CDT BASIC METABOLIC PANEL, S/P Timed 12/24/2023 3:30 PM CDT US LOWER EXTREMITY VEINS LEFT RAD - Routine (most inpatients and all outpatients) 12/19/2023 10:51 AM CDT BASIC METABOLIC PANEL, S/P Routine 12/13/2023 9:[address] HEAD WITHOUT IV CONTRAST RAD - Routine (most inpatients and all outpatients) 12/12/2023 2:13 PM CDT US LOWER EXTREMITY VEINS BILATERAL RAD - Timed (for specific dates/times) 12/12/2023 10:14 AM CDT PHOSPHORUS (INORGANIC), S Routine 12/09/2023 9:10 PM CDT MAGNESIUM, S Routine 12/09/2023 9:10 PM CDT BASIC METABOLIC PANEL, S/P Routine 12/09/2023 9:10 PM CDT BASIC METABOLIC PANEL, S/P Routine 12/06/2023 9:06 [...] LINE INSERTION Routine 11/25/2023 8:12 AM CDT AL ARTL CATH/CNULA MONITOR PERC Routine 11/25/2023 8:12 AM CDT LDA ANE ENDOTRACHEAL AIRWAY Routine 11/25/2023 8:01 AM CDT OPEN REDUCTION INTERNAL FIXATION ACETABULUM 11/25/2023 7:24 AM CDT Fracture Acetabulum Closed Initial Left (HCC) Special Needs Supine.Organica Water pelvis set.Shanz pins. PATIENT STATUS Timed 11/25/2023 [...] CDT from Last 3 Months Results * CT Head without IV Contrast (12/26/2023 11:13 AM CDT) Only the most recent of9 resultswithin the time period is included. Anatomical Region Laterality Modality Head, Neuroradiology RST LOS , Neuroradiology ARZ LOS, Neuroradiology FLA LOS N/A Computed Tomography, Compute d Tomography 12/26/2023 11:1 2 AM CDT Impressions 12/26/2023 11:31 AM CDT No acute intracranial abnormality. The subarachnoid hemorrhage seen on 12/01/2023 remains absent. Narrative 12/26/2023 11:31 AM CDT EXAM: CT HEAD WITHOUT IV CONTRAST COMPARISON: CT head 12/12/2023. CT head 12/01/2023. FINDINGS: No substantial change since 12/12/2023. The subarachnoid hemorrhage seen within the occipital horn of the left lateral ventricle on 12/01/2023 remains absent. No acute intracranial hemorrhage, mass effect, or evidence of acute infarct. Mild changes of presumed chronic small vessel ischemia. Paranasal sinuses and mastoid air cells are clear. Procedure Note Parmjit Finn M.D. - 12/26/2023 EXAM: CT HEAD WITHOUT IV CONTRAST COMPARISON: CT head 12/12/2023. CT head 12/01/2023. FINDINGS: No substantial change since 12/12/2023. The subarachnoidhemorrhage seen within the occipital horn of the left lateral ventricle on12/01/2023 remains absent. No acute intracranial hemorrhage, mass effect,or evidence of acute infarct. Mild changes of presumed chronic small vessel ischemia. Paranasal sinuses andmastoid air cells are clear. IMPRESSION: No acute intracranial abnormality. The subarachnoid hemorrhage seen on12/01/2023 remains absent. Barbara Alejo APRN.N.P., M.S.N. I MG CT PROCEDURES * Arm, Right-Nursing Image Exam (12/25/2023 10:12 AM CDT) Only the most recent of3 resultswithin the time period is included. 12/25/2023 10:1 1 AM CDT Narrative IIMS - 12/25/2023 10:12 AM CDT This order has been created and auto-finalized to support the import of images acquired without order. The clinical documentation to support these images can be found on the encounter that produced images. Provider Not In System IMG NON RAD IMAGI NG PROCEDURES IIMS NA * DX Pelvis 3+ Views (12/25/2023 8:47 AM CDT) Only the most recent of3 resultswithin the time period is included. Anatomical Region Laterality Modality Pelvis, Musculoskeletal RST LOS, Musculoskeletal ARZ LOS, Muskuloskeletal FLA LOS N/A Digital Radiography Impressions 12/25/2023 8:53 AM CDT Comparison to 12/04/2023. Reduced and internally fixated left iliac and left acetabular fractures. Left femoral head well seated. 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 Narrative 12/25/2023 8:53 AM CDT EXAM: ??DX PELVIS 3+ VIEWS Procedure Note Sheldon Araya M.D. - 12/25/2023 EXAM: DX PELVIS 3+ VIEWS IMPRESSION: Comparison to 12/04/2023. Reduced and internally fixated left iliac andleft acetabular fractures. Left femoral head well seated. Moderatebilateral hip osteoarthritis. Advanced lower lumbar degeneration. Kavon Mancilla APRN, C.N.P., D.N.P. IMG DIAGNOSTIC IMAGING PROCEDURES * (ABNORMAL) Basic Metabolic Panel (12/24/2023 3:30 PM CDT) Only the most recent of22 resultswithin the time period is included. Potassium, S 4.5 3.6 - 5.2 mmol/L 12/24/2023 4:19 PM CDT DTL Sodium, S 138 135 - 145 mmol/L 12/24/2023 4:19 PM CDT DTL Chloride, S 102 98 - 107 mmol/L 12/24/2023 4:19 PM CDT DTL Bicarbonate, S 26 22 - 29 mmol/L 12/24/2023 4:19 PM CDT DTL Anion Gap 10 7 - 15 12/24/2023 4:19 PM CDT DTL BUN (Blood Urea Nitrogen), S 27(H) 8 - 24 mg/dL 12/24/2023 4:19 PM CDT DTL Creatinine 1.01 0.74 - 1.35 mg/dL 12/24/2023 4:19 PM CDT DTL Estimated GFR (eGFR) 75 >=60 mL/min/BSA 12/24/2023 4:19 PM CDT DTL Comment: Estimated GFR calculated using the 2020 CKD_EPI creatinine equation. Calcium, Total, S 8.5(L) 8.8 - 10.2 mg/dL 12/24/2023 4:19 PM CDT DTL Glucose, S 132 70 - 140 mg/dL 12/24/2023 4:19 PM CDT DTL Blood (Blood, Venous) 12/24/2023 3:30 PM CDT 12/24/2023 4:01 PM CDT Sheldon Leigh APRN, C.N.P., M.S.N. L AB BLOOD ADD-ON [facility] [address] [place] [address], [facility] [address] [place] [address] * US Lower Extremity Veins Left (12/19/2023 10:51 AM CDT) Anatomical Region Laterality Modality Lower Extremity, Ultrasound RST LOS, Ultrasound ARZ LOS, Ultrasound FLA LOS Left Ultrasound Impressions 12/19/2023 12:14 PM CDT Stable venous ultrasound exam of the left lower extremity. No significant change in the short segment acute DVT in the left soleal vein compared ultrasound 12/12/2023. Narrative 12/19/2023 12:14 PM CDT EXAM: US LOWER EXTREMITY VEINS LEFT Exam performed with color and spectral Doppler analysis. COMPARISON: Ultrasound 12/12/2023. FINDINGS: LEFT: Common Femoral Vein: Negative. Profunda Femoral Vein: Negative. Femoral Vein: Negative. Popliteal Vein: Negative. Gastrocnemius Veins: Negative where seen. Soleal Veins: Acute DVT. Not significantly changed compared ultrasound 12/12/2023. Posterior Tibial Veins: Negative where seen. Peroneal Veins: Negative where seen. Great Saphenous Vein: Negative where seen. Small Saphenous Vein: Not evaluated. Popliteal Fossa: Negative. Other: n/a Information on venous thrombosis and management can be found on the [employer] site. Link [email or web address] Procedure Note Rommel Granados M.D. - 12/19/2023 EXAM: US LOWER EXTREMITY VEINS LEFT Exam performed with color and spectral Doppler analysis. COMPARISON: Ultrasound 12/12/2023. FINDINGS: LEFT: Common Femoral Vein: Negative. Profunda Femoral Vein: Negative. Femoral Vein: Negative. Popliteal Vein: Negative. Gastrocnemius Veins: Negative where seen. Soleal Veins: Acute DVT. Not significantly changed compared ultrasound12/12/2023. Posterior Tibial Veins: Negative where seen. Peroneal Veins: Negative where seen. Great Saphenous Vein: Negative where seen. Small Saphenous Vein: Not evaluated. Popliteal Fossa: Negative. Other: n/a Information on venous thrombosis and management can be found on the[employer] site. [email or web address] -2049 1725 IMPRESSION: Stable venous ultrasound exam of the left lower extremity. No significantchange in the short segment acute DVT in the left soleal vein comparedultrasound 12/12/2023. Garland Meyer P.A.-C. IMG US PROCEDURES * US Lower Extremity Veins Bilateral (12/12/2023 10:14 AM CDT) Only the most recent of3 resultswithin the time period is included. Anatomical Region Laterality Modality Lower Extremity, Ultrasound RST LOS, Ultrasound ARZ LOS, Ultrasound FLA LOS Bilateral Ultrasound Impressions 12/12/2023 10:46 AM CDT Positive for acute DVT. Partial improvement of the previously noted acute DVT with residual occlusive acute DVT in one of the soleal veins. Narrative 12/12/2023 10:46 AM CDT EXAM: US LOWER EXTREMITY VEINS BILATERAL Exam performed with color and spectral Doppler analysis. COMPARISON: Lower extremity ultrasounds from 12/05/2023 and 11/28/2023. FINDINGS: RIGHT: Common Femoral Vein: Negative. Profunda [...] Gastrocnemius Veins: Negative where seen. Soleal Veins: Partial improvement of the acute DVT noted on comparison exams with residual occlusive acute DVT in one of the soleal veins. Posterior Tibial Veins: Negative where seen. Peroneal Veins: Negative where seen. Great Saphenous Vein: Negative where seen. Small Saphenous Vein: Not Evaluated. Popliteal Fossa: Negative. Other: n/a Information on venous thrombosis and management can be found on the [employer] site. Link [email or web address] Procedure Note Carol Bailey M.D. - 12/12/2023 EXAM: US LOWER EXTREMITY VEINS BILATERAL Exam performed with color and spectral Doppler analysis. COMPARISON: Lower extremity ultrasounds from 12/05/2023 and 11/28/2023. FINDINGS: RIGHT: Common Femoral Vein: Negative. Profunda [...] Gastrocnemius Veins: Negative where seen. Soleal Veins: Partial improvement of the acute DVT noted on comparisonexams with residual occlusive acute DVT in one of the soleal veins. Posterior Tibial Veins: Negative where seen. Peroneal Veins: Negative where seen. Great Saphenous Vein: Negative where seen. Small Saphenous Vein: Not Evaluated. Popliteal Fossa: Negative. Other: n/a Information on venous thrombosis and management can be found on the[employer] site. [email or web address] -[email or web address] 1725 IMPRESSION: Positive for acute DVT. Partial improvement of the previously noted acuteDVT with residual occlusive acute DVT in one of the soleal veins. Barb Davies M.D. IM US PROCEDURES * Phosphorus Inorganic (12/09/2023 9:10 PM CDT) Only the most recent of7 resultswithin the time period is included. Phosphorus (Inorganic), S 3.4 2.5 - 4.5 mg/dL 12/09/2023 10:09 PM CDT DTL Blood (Blood, Venous) 12/09/2023 9:10 PM CDT 12/09/2023 9:53 PM CDT Barb Davies M.D. LAB BLOOD ADD-ON [facility] [address] [place] [address] * Magnesium (12/09/2023 9:10 PM CDT) Only the most recent of7 resultswithin the time period is included. Magnesium, S 2.1 1.7 - 2.3 mg/dL 12/09/2023 10:09 PM CDT DTL Blood (Blood, Venous) 12/09/2023 9:10 PM CDT 12/09/2023 9:53 PM CDT Barb Davies M.D. LAB BLOOD ADD-ON [facility] [address] [place] [address] * DX Chest Portable 1 View (12/06/2023 [...] 9:13 PM CDT Lalita Bacon APRN, C.N.P., Olivia.N.P. LAB B LOOD ADD-ON [facility] [address] [place] [address], [place] DTL [facility] [address] [place] [address] * DX Pelvis 1-2 Views (12/04/2023 12:00 [...] PELVIS 1-2 VIEWS Procedure Note Santosh Bruno M.B.BTarikS. - 12/04/2023 EXAM: DX PELVIS 1-2 VIEWS IMPRESSION: Comparison 11/25/2023 pelvis radiograph. Surgical hardware is intactwithout radiographic evidence of failure. No new fractures. Left pelvicsurgical drain.. Tracy Salamanca APRNN.Pablo., D.N.P. IMG D IAGNOSTIC IMAGING PROCEDURES * [...] - 6.45 x10(9)/L 12/02/2023 10:11 PM CDT [facility] Comment:Rechecked Lymphocytes 0.90(L) 0.95 - [...] APRN, C.N.P., D.N.P. LAB B LOOD ADD-ON [facility] [address] [place] [address], [facility] DTL [facility] [address] [place] [address] [facility] [address] [place] [address] * DX Abdomen 1 View (12/02/2023 5:41 [...] IMG DIAGNOSTIC IMAG ING PROCEDURES * DX Abdomen Portable Anterior Posterior [...] Overnight (11/29/2023 7:52 AM CDT) 11/28/2023 Impressions [facility] - 11/29/2023 1:47 PM CDT Overnight oximetry [...] current supplemental oxygen. Physician: Hema Owens M.D. [id number] Narrative Procedure Note Hema Owens M.D. - [...] thecurrent supplemental oxygen. Physician: Hema Owens M.D. [id number] Josee Rose M.D. [facility]AB [facility] [place] [facility] * (ABNORMAL) Troponin T, 2 Hour [...] M.D. LAB BLOOD TROPONIN Performing Organization Address City/[facility]/ZIP Co de Phone Number [facility] [address] [place] [address] * (ABNORMAL) Troponin T, Baseline with 2 Hour/6 Hour Reflex Biomarker Panel (11/28/2023 9:01 PM CDT) Only the most recent of4 resultswithin the time period is included. Troponin T, Baseline, 5th gen 31(H) <=15 ng/L 11/28/2023 9:26 PM CDT STMA Blood (Blood, Venous) 11/28/2023 9:01 PM CDT 11/28/2023 9:06 PM CDT Barb Davies M.D. LAB BLOOD TROPONIN [facility] [address] [place] [address], [facility] [address] [place] [address] * ECG 12 Lead (11/28/2023 8:57 PM CDT) Only the most recent of8 resultswithin the time period is included. Ventricular Rate ECG/Min 88 BPM MUSE AL Interval 136 ms MUSE QRSD Interval 86 ms MUSE QT Interval 384 ms MUSE QTC Interval 464 ms MUSE P [place] 33 degrees MUSE R [place] 7 degrees MUSE T Wave [place] 10 degrees MUSE 11/28/2023 8:57 PM CDT [...] Davies M.D. ECG ORDERABLES Performing Organization Address City/[facility] Co de Phone Number MUSE NA * (ABNORMAL) CK (Creatine Kinase) (11/27/2023 6:13 AM CDT) Only the most recent of5 resultswithin the time period is included. Creatine Kinase (CK), S 2232(H) 39 - 308 U/L 11/27/2023 7:28 AM CDT DTL Blood (Blood, Venous) 11/27/2023 6:13 AM CDT 11/27/2023 6:53 AM CDT Serafin Ford M.D. LAB BLOOD ADD-ON Performing Organization Address City/State/[facility] Co de Phone Number [facility] [address] [place], [place] [address] [place] [address] * (ABNORMAL) Calcium, Ionized (11/27/2023 6:13 AM CDT) Only the most recent of7 resultswithin the time period is included. Calcium, Ionized, S 4.41(L) 4.57 - 5.43 mg/dL 11/27/2023 7:12 AM CDT [facility] Comment: ----ADDITIONAL INFORMATION---- This test has been modified from the motion picture set worker's instructions. Its performance characteristics were determined by [facility] in a manner consistent with CLIA requirements. This test has not been cleared or approved by the U.S. Food and Drug Administration. pH for Ionized Calcium 7.46 7.35 - 7.48 11/27/2023 7:12 AM CDT DTL Blood (Blood, Venous) 11/27/2023 6:13 AM CDT 11/27/2023 6:53 AM CDT Charlotte Ordaz APRN, C.N.P., D.N.P. LAB BLOOD NON ADD-ON Performing Organization Address City/[facility] Co de Phone Number [phone] [place] [phone] * Patient Status (11/26/2023 5:28 PM CDT) Only the most recent of5 resultswithin the time period is included. O2 Flow 6.0 L/min 11/26/2023 5:32 PM CDT STMA Device NC 11/26/2023 5:32 PM CDT STMA Spont. breaths/min 18 11/26/2023 5:32 PM CDT STMA Blood 11/26/2023 5:28 PM CDT 11/26/2023 5:32 PM CDT Barbara Pelayo APRN.N.P., D.N.P. LAB BLOOD NON ADD-ON [facility] [address] [place] [address], [facility] STMA [facility] [address] [place] [address] * (ABNORMAL) Blood Gas with Coox, Arterial (11/26/2023 5:28 PM CDT) Only the most recent of6 resultswithin the time period is included. [facility] pO2 77(L) 83 - 108 mm Hg [...] CDT 11/26/2023 5:32 PM CDT Charlotte Ordaz APRN C.N.P., D.N.P. LAB BLOOD NON ADD-ON Performing Organization Address City/[facility] Co de Phone Number [facility] [address] 200 [place] [address] * pH (11/26/2023 11:21 AM CDT) Only the most recent of3 resultswithin the time period is included. pH 7.45 7.35 - 7.45 pH 11/26/2023 11:27 AM CDT STMA Blood 11/26/2023 11:2 1 AM CDT 11/26/2023 11:26 AM CDT Barbara Pelayo APRN.N.P., D.N.P. LAB HISTORICAL ORDERS Performing Organization Address [facility] Co de Phone Number [facility] [address] 200 [place] [address] * Thromboelastograph, Kaolin, Blood (11/26/2023 7:45 AM [...] APRN, C.N.P., DemetriusNTarikP. LAB BLOOD NON ADD-ON [facility] [address] [place] [address], [facility] [address] [place] [address] * Transfuse Fresh Frozen Plasma :Bleeding with [...] LAB BLOOD NON ADD-ON Performing Organization Address City/[facility]/ZIP Co de Phone Number [facility] [address] [place] [address], [facility] [address] [place] [address] * FL Fluoro Less Than 1 Hour (11/25/2023 2:52 PM CDT) Narrative 152 HOS LOS RST - 11/25/2023 2:54 PM CDT This exam does not require a radiologist review or interpretation. Please refer to the patient's medical record on this date for clinical details. Francisco Staley M.D. IMG FLUOROSCOPY PROCEDURES Performing Organization Address City/[facility]/ZIP Co de Phone Number 152 HOS LOS RST * Transfuse autologous RBC (Cell Salvage) : [...] Ale Tatum M.D. LAB BLOOD NON ADD-ON [facility] 200 [place] [address], [facility] 200 [place] [address] * Potassium, Blood (11/25/2023 1:31 PM CDT) Only the most recent of3 resultswithin the time period is included. Potassium, B 3.7 3.6 - 5.2 mmol/L 11/25/2023 1:34 PM CDT STMA Blood (Blood, Arterial Line) 11/25/2023 1:31 PM CDT 11/25/2023 1:31 PM CDT Ale Tatum M.D. LAB BLOOD NON ADD-ON Performing Organization Address City/[facility]/ZIP Co de Phone Number [facility] 200 [place] [address], [facility] 200 [place] [address] * (ABNORMAL) Glucose, Whole Blood (11/25/2023 1:31 PM CDT) Only the most recent of3 resultswithin the time period is included. Glucose 165(H) 70 - 140 mg/dL 11/25/2023 1:33 PM CDT STMA Blood (Blood, Arterial Line) 11/25/2023 1:31 PM CDT 11/25/2023 1:31 PM CDT Ale Tatum M.D. LAB BLOOD ADD-ON [facility] 200 [place] [address], [facility] 200 [place] [address] * (ABNORMAL) Hemoglobin, Whole Blood (11/25/2023 12:13 PM CDT) Hemoglobin, B 8.1(L) 13.2 - 16.6 g/dL 11/25/2023 12:14 PM CDT [facility] Blood (Blood, Arterial Line) 11/25/2023 12:13 PM CDT 11/25/2023 12:13 PM CDT Gogo Chavez APRN, CRNA LAB BLOOD NON A DD-ON Performing Organization Address [facility] Co de Phone Number [facility] [address] [place] [address] * Transfuse Red Blood Cells : (11/25/2023 11:50 AM CDT) Only the most recent of3 resultswithin the time period is included. Ale Tatum M.D. BLOOD TRANSFUSION OR DERABLES * Lactate, B - Intra-op (11/25/2023 11:09 AM CDT) Pathologist [facility] Lactate, B 1.1 0.5 - 2.2 mmol/L 11/25/2023 11:11 AM CDT [facility] Blood (Blood, Venous) 11/25/2023 11:09 AM CDT 11/25/2023 11:09 AM CDT Ale Tatum M.D. LAB BLOOD NON ADD-ON Performing Organization Address City/[facility]/ZIP Co de Phone Number [facility] [address] [place] [address], [facility] 200 [place] [address] * AL ARTL CATH/CNULA MONITOR PERC, LDA ANE ARTERIAL [...] fellow participated in the procedure, and the industry consultant was present for the entire procedure. [...] ETT location: oral VL device: glide scope [place] scope blade size: 3 Tube size: 7.5 [...] C.N.P., M.S.N. LA B BLOOD NON ADD-ON [facility] [address] [place] [address], [facility] STMA [facility] [address] [place] [address] * (ABNORMAL) Blood Gas with Coox, Venous [...] C.N.P., M.S.N. LA B BLOOD NON ADD-ON [facility] 200 [place] [address], [facility] 200 [place] [address] * (ABNORMAL) Dipstick, Urine (11/24/2023 9:58 AM [...] D.N.P. LAB URINE ORDERABLES Performing Organization Address [facility] Co de Phone Number [facility] [address] [place], [place] [phone] [place] [address] 200 [place] [address] * (ABNORMAL) Microscopic Manual (11/24/2023 9:58 AM [...] 9:58 AM CDT 11/24/2023 11:52 AM CDT Tracy Montes APRNN.Tian, D.N.P. LAB URINE ORDERABLES Performing Organization Address City/[facility] Co de Phone Number [facility] 200 [place] [address], [facility] 200 [place] [address] * pH, Urine (11/24/2023 9:58 AM CDT) pH, U 5.1 4.5 - 8.0 11/24/2023 11: 48 AM CDT DTL Urine 11/24/2023 9:58 AM CDT 11/24/2023 10:39 AM CDT Tracy Montes APRNNKerrie, D.N.P. LAB URINE ORDERABLES Performing Organization Address City/[facility]/ZIP Co de Phone Number [facility] 200 [place] [address], [facility] 200 [place] [address] * Osmolality, Urine (11/24/2023 9:58 AM CDT) Osmolality, U 901 150 - 1150 mOsm/kg 11/24/2023 11:48 AM CDT DTL Urine 11/24/2023 9:58 AM CDT 11/24/2023 10:39 AM CDT Tracy Montes APRNN.Tian, D.N.P. LAB URINE ORDERABLES Performing Organization Address City/[facility] Co de Phone Number [facility] 200 [place] [address], [facility] 200 [place] [address] * (ABNORMAL) Urinalysis, with Microscopic: Urine, Catheter [...] CDT 11/24/2023 10:39 AM CDT Barbara Montes APRN.N.Pablo., D.N.P. LAB URINE ORDERABLES Performing Organization Address City/[facility] Co de Phone Number [facility] 200 [place] [address], [address] [address] * Drug Screen Urine (11/24/2023 7:01 AM [...] APRN, C.N.P., M.S.N. LA B URINE ORDERABLES Performing Organization Address City/[facility]/ZIP Co de Phone Number [facility] 200 [place], [place] [phone] [place] [address] * DX Femur Left 1 View (11/24/2023 [...] CDT Bereket Snider M.D. LAB BLOOD TROPONIN [facility] [address] [place] [address], [facility] [address] [place] [address] * DX Femur Left 2 Views (11/23/2023 [...] M.D. PROCEDURE/MINOR SURG ICAL ORDERABLES * (ABNORMAL) Prothrombin Time (PT) (11/23/2023 4:51 PM CDT) Only the most recent of2 resultswithin the time period is included. Prothrombin Time, P 12.6(H) 9.4 - 12.5 sec 11/23/2023 5:24 PM CDT [facility] INR 1.1 0.9 - 1.1 11/23/2023 5:24 PM CDT [facility] Comment: ----ADDITIONAL INFORMATION---- Standard intensity warfarin therapeutic range: 2.0 to 3.0 ?? High intensity warfarin therapeutic range: 2.5 to 3.5 Blood (Blood, Venous) 11/23/2023 4:51 PM CDT 11/23/2023 5:01 PM CDT Sheldon Choi P.A.-C. LAB BLOOD A DD-ON [facility] [address] [place] [address], [facility] [address] [place] [address] * Hemoglobin A1c (11/23/2023 4:51 PM CDT) Hemoglobin A1c, B 5.4 4.0 - 5.6 % 11/23/2023 5:42 PM CDT DTL Blood (Blood, Venous) 11/23/2023 4:51 PM CDT 11/23/2023 5:19 PM CDT Sheldon Choi P.A.-C. LAB BLOOD A DD-ON [facility] [address] [place] [address], [facility] DTL [facility] [address] [place] [address] * Critical Care (11/23/2023 4:42 PM CDT) [...] deterioration of the following conditions: shock trauma [employer]CHESTRA [employer]ICIAN failure or compromise hemorrhage Critical care was [...] spine. [place]re[place] CT PROCEDURES * CT Cervical Spine without [...] with Reflex, POCT (11/23/2023 1:06 PM CDT) [facility] Lactate, POCT 1.67 0.50 - 2.20 mmol/L 11/23/2023 1:19 PM CDT PCLX Blood (Blood, Venous) 11/23/2023 1:06 PM CDT 11/23/2023 1:06 PM CDT Bereket Snider M.D. LAB POCT ORDERABLES - DEVICE POC [facility] [address] [place] [address], [facility] PCLX [facility] POC [address] [place] [address] * (ABNORMAL) Venous Blood Gas and Electrolytes CG8+, POCT (11/23/2023 1:06 PM CDT) [facility] Sample Site, POCT Venstick 11/23/2023 1:19 PM [...] POCT ORDERABLES - DEVICE Performing Organization Address [facility] Co de Phone Number POC [facility] [address] [facility] POC [address] [place] [address] * APTT (Activated Partial Thromboplastin Time) (11/23/2023 1:06 PM CDT) [facility] Activated Partial Thrombopl Time, P 30 25 - 37 sec 11/23/2023 2:03 PM CDT STMA Blood (Blood, Venous) 11/23/2023 1:06 PM CDT 11/23/2023 1:18 PM CDT Bereket Snider M.D. LAB BLOOD ADD-ON Performing Organization Address [facility] de Phone Number [facility] [address] [place] [address], [facility] 200 [place] [address] * Type and Screen (with Reflex Antibody [...] BLOOD BANK TEST ORDERABLES Performing Organization Address City/[facility]/ZIP Co de Phone Number [facility] 200 [place] [address], [facility] [place] [address] * Ethanol Level, Serum (11/23/2023 1:05 PM CDT) Ethanol, S <10 <10 mg/dL 11/23/2023 2:1 4 PM CDT DTL Blood (Blood, Venous) 11/23/2023 1:05 PM CDT 11/23/2023 1:40 PM CDT Bereket Snider M.D. LAB BLOOD NON ADD-ON Performing Organization Address [facility] Co de Phone Number [facility] [address] [place], [place] [phone] [place] [address] [place] [address] * (ABNORMAL) Hepatic Function Panel (11/23/2023 1:05 [...] CDT Bereket Snider M.D. LAB BLOOD ADD-ON [facility] [address] [place], [place] [phone] [place] [address] [address] [place] [address] * (ABNORMAL) S-TSH (Thyroid-Stimulating Hormone - Sensitive) (11/23/2023 1:05 PM CDT) TSH, Sensitive 6.1(H) 0.3 - 4.2 mIU/L 11/23/2023 2:14 PM CDT DTL Blood (Blood, Venous) 11/23/2023 1:05 PM CDT 11/23/2023 1:40 PM CDT Bere[place] Snider M.D. LAB BLOOD ADD-ON Performing Organization Address City/[facility]/ZIP Co de Phone Number [facility] [address] [place] [address], [facility] 200 [place] [address] * Lipase (11/23/2023 1:05 PM CDT) Lipase, S 19 13 - 60 U/L 11/23/2023 2: 14 PM CDT DTL Blood (Blood, Venous) 11/23/2023 1:05 PM CDT 11/23/2023 1:40 PM CDT Bereket Snider M.D. LAB BLOOD ADD-ON [facility] [address] [place], [place] [address] [place] [address] [address] [place] [address] from Last 3 Months Advance Directives For more information, please contact: [phone] * Full Code (Latest Code Status on File) Date Activated Date Inactivated Comments 11/23/2023 5:00 PM 12/27/2023 12:36 PM Question Answer Comments Full Code: Discussed Care Teams Train Operator Relationship Specialty Start Date End Date Elsewhere, Pcp PCP - General Internal Medicine 11/23/23
--- OUTSIDE RECORDS SUMMARY | 2024-01-23 10:40 | XMS_ITS ---
Author Organization [facility] Address [address] [place] [address] Care Team Providers Care Tissue Technician Name Role Phone Unavailable Unavailable Unavailable Surgery Details Not on file Complications Check Surgery Details section. Procedure Estimated Blood Loss Check Surgery Details section. Procedure Findings Check Surgery Details section. Procedure Specimens Taken Check Surgery Details section.
--- OUTSIDE RECORDS SUMMARY | 2024-01-23 10:40 | XMS_ITS | Encounter Summary ---
Author Organization [facility] Address [address] [place] [address] Care Team Providers Care Director Radio News Name Role Phone Elsewhere, Pcp Primary Care Provider Unavailabl e Reason for Visit * Outpatient (Routine) - Closed Specialty Diagnoses / Procedures Referred By Rahul preciado Referred To Contact Neurological Surgery Diagnoses Hemorrhage Subarachnoid Nontraumatic (HCC) Vanessa Curiel APRN, MYLA, D.N.P., M.S.N. [address] [place] [phone] [facility] Referral ID Status Reason Start Date Expiration Date Visits Re quested Visits Authorized [id number] Closed 11/25/2023 05/26/2025 1 1 Encounter Details Date Type Department Care Team (Late st Contact Info) Description 12/28/2023 2:00 PM CDT Virtual Visit Department of Neurologic Surgery in [place], [place] [address] [place] [phone] Harmony Lomas APRN, C.N.P., M.S.N. [address] [place] [phone] Hemorrhage Subarachnoid Nontraumatic (HCC) Social History Tobacco Use Types Packs/Day Years Used Date Smoking Tobacco: Never Assessed Dental Answer Date Recorded Dental: Regular Dentist Unknown 11/23/19 24 Sex and Gender Information Value Date Recorded Sex Assigned at Not on file Gender Identity Not on file Sexual Orientation Not on file documented as of this encounter Progress Notes * Harmony Lomas APRN, C.N.P., M.S.N. - 12/28/2023 2:00 PM CDT SUBJECTIVE CHIEF COMPLAINT / REASON FOR VISIT Carlos Alberto Grayson is a 83 y.o. male who presents for evaluation of follow up HISTORY OF PRESENT ILLNESS Carlos Alberto is a very pleasant hand 83-year-old male who experienced a fall yesterday hitting his head on his forehead. He does not recall the fall. This resulting in a small amount of intraventricular hemorrhage likely related to the trauma. He also has a baseline history of dementia. His presents for telephone visit follow-up today. He is mostly having hip and leg pain today. He has no worsening signs or symptoms of headache, nausea, vomiting, dizziness, or weakness. She is wondering about his head ct results today. REVIEW OF SYSTEMS: REVIEW OF SYSTEMS Denies new numbness, weakness or tingling. Denies saddle anesthesia. Denies new bowel or bladder dysfunction. OBJECTIVE DIAGNOSTICS Her head CT shows the subarachnoid hemorrhage seen on 12/01/23 remains absent. There is no evidence of acute infarct or new bleeding. ASSESSMENT / PLAN Diagnosis Plan 1. Hemorrhage Subarachnoid Nontraumatic (HCC) Neurological Surgery Post Op (clinic) Plan: I was a pleasure visiting with Joseline today. Per her report, her seems to be free of anyworsening head trauma symptoms. He has not had any recent falls. His head CT shows resolution of the previously seen subarachnoid hemorrhage. I would encourage Carlos Alberto to seek out treatment through the ER if he has any new incidents or experiences any worsening symptoms. No further follow- up planned in Neurosurgery at this time. documented in this encounter Plan of Treatment Upcoming Encounters Date Type Department Care Team (Latest Contact Info) Description 01/30/2024 10:20 AM CDT Appointment Department of Laboratory Medicine in [address] [phone] Rody Arriaga APRN, C.N.P., D.N.P. [address] [place] [phone] 02/06/2024 10:30 AM CDT Comprehensive Visit Department of Urology in [place], [place] [address] [place] [phone] Rogelio Díaz M.D. [address] [place] [phone] 02/13/2024 2:45 PM CDT Clinical Communication Virtual Review in [place], [place] 200 [place] [phone] 02/17/2024 12:00 PM CDT Appointment Department of Radiology, [facility], in [address] [phone] Sera Avila P.A.-C., M.S. [address] [place] [phone] 02/17/2024 12:30 PM CDT Office Visit Department of Orthopedic Surgery in [address] [phone] Naveed Higuera M.D. [address] [place] [phone] documented as of this encounter Visit Diagnoses Diagnosis Hemorrhage Subarachnoid Nontraumatic (HCC) documented in this encounter Care Teams Director Radio News Relationship Specialty Start Date End Date Elsewhere, Pcp PCP - General Internal Medicine 11/23/23 documented as of this encounter
--- OUTSIDE RECORDS SUMMARY | 2024-01-23 10:40 | XMS_ITS | Encounter Summary ---
Author Organization [facility] Address [address] [place] [address] Care Team Providers Care Lan Manager Name Role Phone Elsewhere, Pcp Primary Care Provider Unavailabl e Reason for Referral * Outpatient (Routine) - Authorized Specialty Diagnoses / Procedures Referred By Contac t Referred To Contact Diagnoses Fracture Acetabulum Closed Initial Left (HCC) Procedures DX Pelvis 1-2 Views Sera Avila P.A.-C., M.STarik [address] [place] [phone] [facility] Referral ID Status Reason Start Date Expiration Date V isits Requested Visits Authorized [id number] Authorized 12/27/2023 12/26/2024 1 1 * Outpatient (Routine) - Authorized Specialty Diagnoses / Procedures Referred By Contac t Referred To Contact Orthopedic Surgery Sera Avila P.A.-C., M.S. [address] [place] [phone] Naveed Higuera M.D. [address] [place] [phone] Referral ID Status Reason Start Date Expiration Date V isits Requested Visits Authorized [id number] Authorized 12/27/2023 06/27/2025 1 1 * Outpatient (Routine) - Authorized Specialty Diagnoses / Procedures Referred By Contac t Referred To Contact Diagnoses Fracture Acetabulum Closed Initial Left (HCC) Procedures DX Pelvis 1-2 Views Sera Avila P.A.-C., M.S. [address] [place] [phone] [facility] Referral ID Status Reason Start Date Expiration Date V isits Requested Visits Authorized [id number] Authorized 12/27/2023 12/26/2024 1 1 Encounter Details Date Type Department Care Team (Late st Contact Info) Description 12/27/2023 Orders Only Department of Orthopedic Surgery in [place], [place] [address] [place] [phone] Sera Avila P.A.-C., M.S. [address] [place] [phone] Fracture Acetabulum Closed Initial Left (HCC) (Primary [...] CDT Appointment Department of Laboratory Medicine in [place], [place] [address] [place] [phone] Rody Arriaga APRN, C.N.P., D.N.P. [address] [place] [phone] 02/06/2024 10:30 AM CDT Comprehensive Visit Department of Urology in [place], [place] [address] [place] [phone] Rogelio Díaz M.D. [address] [place] [phone] 02/13/2024 2:45 PM CDT Clinical Communication Virtual Review in [place], [place] [address] [place] [phone] 02/17/2024 12:00 PM CDT Appointment Department of Radiology, [facility], in [address] [phone] Sera Avila P.A.-C., M.S. [address] [place] [phone] 02/17/2024 12:30 PM CDT Office Visit Department of Orthopedic Surgery in [address] [phone] Naveed Higuera M.D. [address] [place] [phone] Scheduled Orders Name Type Priority Associated Diagnoses Orde r Schedule DX Pelvis 1-2 Views Imaging RAD - Routine (most inpatients and all outpatients) Fracture Acetabulum Closed Initial Left (HCC) Expected: 01/06/2024, Expires: 03/28/2025 DX Pelvis 1-2 Views Imaging RAD - Routine (most inpatients and all outpatients) Fracture Acetabulum Closed Initial Left (HCC) Expected: 02/17/2024, Expires: 03/28/2025 Scheduled Referrals Name Type Priority Associated Diagnoses Order Schedule Orthopedic Surgery office visit (clinic) Outpatient Referral Routine Expected: 02/17/2024, Expires: 03/28/2025 documented as of this encounter Visit Diagnoses Diagnosis Fracture Acetabulum Closed Initial Left (HCC)- Primary documented in this encounter Care Teams Lan Manager Relationship Specialty Start Date End Date Elsewhere, Pcp PCP - General Internal Medicine 11/23/23 documented as of this encounter
--- OUTSIDE RECORDS SUMMARY | 2024-01-23 10:40 | XMS_ITS | Referral Summary ---
Author Organization [facility] Address [address] [place] [address] Care Team Providers Care Supervisor Rice Milling Name Role Phone Elsewhere, Pcp Primary Care Provider Unavailabl e Source Comments Patient records contain information from all sites at [facility]. For routine questions regarding patient records, call [phone] during business hours, M-F 8:00 AM - 5:00 PM Central Time. Record requests for emergency care only can be directed to [phone] at any time.[facility] Encounters Date Type Department Care Team Description 12/28/2023 2:00 PM CDT Virtual Visit Department of Neurologic Surgery in [place], [place] [address] [place] [address] Harmony Lomas APRN, C.N.P., M.S.N. Hemorrhage Subarachnoid Nontraumatic (HCC) 12/27/2023 Orders Only Department of Orthopedic Surgery in [place], [place] [address] [place] [phone] Sera Avila P.A.-C., M.S. Fracture Acetabulum Closed Initial Left (HCC) (Primary Dx) 11/23/2023 12:47 PM CDT - 12/27/2023 10:25 AM CDT Hospital Encounter [facility], [facility], [facility], Fifth Floor [address] [place] [phone] Carol Miller M.D. Jason Navarrete M.D. Landen Quinonez M.D. Stephens, Daniel, M.D. Kim, Brian D, M.D. Rivera, Mariela, M.D. Park, Myung S, M.D., M.S. Gabriel Ramirez M.D. Fracture Ilium [...] (HCC); Effusion Pleural Discharge Disposition: Home-Health Care [facility] 12/25/2023 10:15 AM CDT Ancillary Procedure Department of Nursing 12/01/2023 Orders Only Department of Orthopedic Surgery in [address] [phone] Sera Avila P.A.-C., M.S. Fracture Acetabulum Closed Initial Left (HCC) (Primary Dx) 11/25/2023 Clinical Communication [facility] [address] [place] [phone] Vanessa Curiel APRN, ADJUSTER LEADER, D.N.P., M.S.N. 11/25/2023 7:25 AM CDT - 11/25/2023 12:22 PM CDT Surgery [facility] MAIN OR [address] [place] [phone] Naveed Higuera M.D. OPEN REDUCTION INTERNAL FIXATION ACETABULUM. 11/25/2023 7:44 AM CDT Anesthesia Event [facility] MAIN OR [address] [place] [phone] Ale Tatum M.D. 11/23/2023 8:45 PM CDT Ancillary Procedure Department of Nursing 11/23/2023 8:40 PM CDT Ancillary Procedure Department of Nursing from Last 3 Months Allergies No known active allergies Medications Medication [...] Fracture Acetabulum Closed Initial Left 11/23/19 24 Immunizations Name Administration Dates Next Due Tdap [...] CDT Appointment Department of Laboratory Medicine in [address] [phone] Rody Arriaga APRN, C.N.P., D.N.P. [address] [place] [phone] 02/06/2024 10:30 AM CDT Comprehensive Visit Department of Urology in [place], [place] [address] [phone] Rogelio Díaz M.D. [address] [place] [phone] 02/13/2024 2:45 PM CDT Clinical Communication Virtual Review in [place], [place] 200 [place] [phone] 02/17/2024 12:00 PM CDT Appointment Department of Radiology, [facility] in [address] [phone] Sera Avila P.A.-C., M.S. [address] [place] [phone] 02/17/2024 12:30 PM CDT Office Visit Department of Orthopedic Surgery in [address] [phone] Naveed Higuera M.D. [address] [place] [phone] Medical Devices Implanted Type Area Tire Regrooving Machine Operator Device Identifier Shelf Expiration Date Model / Serial / Lot Grft Ost Dbm Chp [facility] 5 - [id number] - [id number] Implanted:Qt y: 1 on 11/25/2023 by Naveed Higuear M.D. at [facility] Bone or Tissue Left: Acetabulum Medtronic 05/29/2028 [id number] / [id number] / Clp Apr [facility] 9.75 - [id number] 3 Implanted:Qt y: 1 on 11/25/2023 by Naveed Higuera M.D. at [facility] Hardware e.g. pins/screws /rods Left: Acetabulum Ethicon [id number] 09/17/2028 [id number] / / [id number] Washr Rnd Ss Elkin Elkin 9x8x3.5 - [id number] Implanted:Qt y: 1 on 11/25/2023 by Naveed Higuera M.D. at [facility] Hardware e.g. pins/screws /rods Left: Acetabulum Tamiko [id number] / / Plt Spctnl Qls 16h Lt - [id number] Implanted:Qt y: 1 on 11/25/2023 by Naveed Higuera M.D. at [facility] Hardware e.g. pins/screws /rods Left: Acetabulum Hilton [id number] / / Scrw Axs St Fthrd Lck 3.5x38 - [id number] Implanted:Qt y: 1 on 11/25/2023 by Naveed Higuera M.D. at [facility] Hardware e.g. pins/screws /rods Left: Acetabulum Hilton [id number] / / Scrw Axs St Fthrd Lck 3.5x26 - [id number] Implanted:Qt y: 1 on 11/25/2023 by Naveed Higuera M.D. at [facility] Hardware e.g. pins/screws /rods Left: Acetabulum Tamiko [id number] / / Scrw Axs St Fthrd Lck 3.5x55 - [id number] Implanted:Qt y: 2 on 11/25/2023 by Naveed Higuera M.D. at [facility] Hardware e.g. pins/screws /rods Left: Acetabulum Tamiko [id number] / / Scrw Axs St Fthrd Lck 3.5x28 - [id number] Implanted:Qt y: 2 on 11/25/2023 by Naveed Higuera M.D. at [facility] Hardware e.g. pins/screws /rods Left: Acetabulum Hilton [id number] / / Scrw Axs St Fthrd Lck 3.5x34 - [id number] Implanted:Qt y: 1 on 11/25/2023 by Naveed Higuera M.D. at [facility] Hardware e.g. pins/screws /rods Left: Acetabulum Hilton [id number] / / Scrw Axs St Fthrd Lck 3.5x90 - [id number] Implanted:Qt y: 1 on 11/25/2023 by Naveed Higuera M.D. at [facility] Hardware e.g. pins/screws /rods Left: Acetabulum Tamiko [id number] / / Scrw Axs St Fthrd Lck 3.5x95 - [id number] Implanted:Qt y: 1 on 11/25/2023 by Naveed Higuera M.D. at [facility] Hardware e.g. pins/screws /rods Left: Acetabulum Hilton [id number] / / Scrw Axs St Fthrd Lck 3.5x120 - [id number] Implanted:Qt y: 2 on 11/25/2023 by Naveed Higuera M.D. at [facility] Hardware e.g. pins/screws /rods Left: Acetabulum Tamiko [id number] / / Procedures Procedure Name Priority Date/Time [...] LINE INSERTION Routine 11/25/2023 8:12 AM CDT AR ARTL CATH/CNULA MONITOR PERC Routine 11/25/2023 8:12 AM CDT LDA ANE ENDOTRACHEAL AIRWAY Routine 11/25/2023 8:01 AM CDT OPEN REDUCTION INTERNAL FIXATION ACETABULUM 11/25/2023 7:24 AM CDT Fracture Acetabulum Closed Initial Left (HCC) Special Needs Supine.Daily Dealy pelvis set.Shanz pins. PATIENT STATUS Timed 11/25/2023 [...] The subarachnoid hemorrhage seen on12/01/2023 remains absent. Naveed Higuera APRN, C.N.P., M.S.N. I MG CT PROCEDURES * Arm, [...] of22 resultswithin the time period is included. Pathologist [facility] Potassium, S 4.5 3.6 - 5.2 mmol/L [...] APRN, C.N.P., M.S.N. L AB BLOOD ADD-ON [facility] [address] [place] [address], [place] DTL [facility] [address] [place] [address] * US Lower Extremity Veins Left (12/19/2023 [...] and management can be found on the Pheed site. Link [email or web address]/topic/clinical-answers/[email or web address]/[email or web address] [email or web address] Procedure Note Rommel Granados M.D. - 12/19/2023 [...] thrombosis and management can be found on theAskZounds Hearing Aids site. [email or web address]/topic/clinical-[email or web address]/[email or web address]/cpm -2049 1725 IMPRESSION: Stable venous ultrasound exam of the left lower extremity. No significantchange in the short segment acute DVT in the left soleal vein comparedultrasound 12/12/2023. Garland Meyer P.A.-C. IMJanna US PROCEDURES * US Lower Extremity Veins [...] and management can be found on the Pheed site. Link [email or web address] behavioral health [email or web address]/topic/clinical-[email or web address]/[email or web address] 82286 Procedure Note Carol Bailey M.D. - 12/12/2023 [...] thrombosis and management can be found on thePheed site. [email or web address]/[email or web address]/[email or web address] -2049 1725 IMPRESSION: Positive for acute DVT. Partial improvement of the previously noted acuteDVT with residual occlusive acute DVT in one of the soleal veins. Barb Davies M.D. IMG US PROCEDURES * Phosphorus Inorganic (12/09/2023 9:10 PM CDT) Only the most recent of7 resultswithin the time period is included. Phosphorus (Inorganic), S 3.4 2.5 - 4.5 mg/dL 12/09/2023 10:09 PM CDT DTL Blood (Blood, Venous) 12/09/2023 9:10 PM CDT 12/09/2023 9:53 PM CDT Barb Davies M.D. LAB BLOOD ADD-ON Performing Organization Address City/[facility] Co de Phone Number [facility] [address] 200 [place] [address] * Magnesium (12/09/2023 9:10 PM CDT) Only the most recent of7 resultswithin the time period is included. Magnesium, S 2.1 1.7 - 2.3 mg/dL 12/09/2023 10:09 PM CDT DT Blood (Blood, Venous) 12/09/2023 9:10 PM CDT 12/09/2023 9:53 PM CDT Barb Davies M.D. LAB BLOOD ADD-ON Performing Organization Address [facility] Co de Phone Number [facility] 200 [place] [address] * DX Chest Portable 1 View (12/06/2023 [...] Low lung volumes accentuate the cardiomediastinal silhouette. Tracy Salamanca APRNN.Tian, Olivia.N.P. IMG D IAGNOSTIC IMAGING PROCEDURES * (ABNORMAL) CBC without Differential (12/05/2023 8:57 PM CDT) Only the most recent of16 resultswithin the time period is included. Pathologist [facility] Hemoglobin 10.4(L) 13.2 - 16.6 g/dL [...] Salamanca APRN.N.P., D.N.P. LAB B LOOD ADD-ON [facility] [address] [place] [address], [place] DTL [facility] [address] [place] [address] * DX Pelvis 1-2 Views (12/04/2023 12:00 [...] - 6.45 x10(9)/L 12/02/2023 10:11 PM CDT [facility] Comment:Rechecked Lymphocytes 0.90(L) 0.95 - 3.07 [...] APRN, C.N.P., D.N.P. LAB B LOOD ADD-ON [facility] 200 [place] [address], [facility] DTL [facility] [address] [place], [place] [phone] [place] [address] 200 [place] [address] * DX Abdomen 1 View (12/02/2023 5:41 [...] tissue drain andsurgical inna. Rafal Deleon P.A.-C. G DIAGNOSTIC IMAG ING PROCEDURES * DX Chest [...] Trace bilateral pleural effusions. Rafal Deleon P.A.-C. [facility] DIAGNOSTIC IMAG ING PROCEDURES * DX Abdomen [...] Overnight (11/29/2023 7:52 AM CDT) 11/28/2023 Impressions [facility] - 11/29/2023 1:47 PM CDT Overnight oximetry [...] current supplemental oxygen. Physician: Hema Owens M.D. [id number] Narrative Procedure Note Hema Owens M.D. - [...] thecurrent supplemental oxygen. Physician: Hema Owens M.D. [id number] Josee Rose M.D. [facility] ORDERAB [facility] * (ABNORMAL) Troponin T, 2 Hour with 6 Hour Reflex, 5th Gen (11/28/2023 11:33 PM CDT) Only the most recent of4 resultswithin the time period is included. Pathologist [facility] Troponin T, 2 hr, 5th gen 32(H) <=15 ng/L 11/29/2023 12:20 AM CDT [facility] 2H Delta 1 ng/L 11/29/2023 12:20 AM CDT [facility] Comment:6 hour collection no t indicated. 2H Delta Interp Not Changing 11/29/2023 12:20 AM CDT [facility] Blood 11/28/2023 11:3 3 PM CDT 11/28/2023 11:40 PM CDT Barb Davies M.D. LAB BLOOD TROPONIN Performing Organization Address City/[facility]/ZIP Co de Phone Number [facility] [address] [place], [place] [address] [place] [phone] * (ABNORMAL) Troponin T, Baseline with 2 Hour/6 Hour Reflex Biomarker Panel (11/28/2023 9:01 PM CDT) Only the most recent of4 resultswithin the time period is included. [facility] Troponin T, Baseline, 5th gen 31(H) <=15 ng/L 11/28/2023 9:26 PM CDT [facility] Blood (Blood, Venous) 11/28/2023 9:01 PM CDT 11/28/2023 9:06 PM CDT Barb Davies M.D. LAB BLOOD TROPONIN [facility] 200 [place] [address], [facility] 200 [place] [address] * ECG 12 Lead (11/28/2023 8:57 PM CDT) Only the most recent of8 resultswithin the time period is included. Pathologist [facility] Ventricular Rate ECG/Min 88 BPM MUSE AR Interval 136 ms MUSE QRSD Interval 86 ms MUSE QT Interval 384 ms MUSE QTC Interval 464 ms MUSE P Jackson 33 degrees MUSE R Jackson 7 degrees MUSE T Wave Jackson 10 degrees MUSE 11/28/2023 8:57 PM CDT [...] Davies M.D. ECG ORDERABLES Performing Organization Address City/[facility]/ZIP Co de Phone Number MUSE NA * (ABNORMAL) CK (Creatine Kinase) (11/27/2023 6:13 AM CDT) Only the most recent of5 resultswithin the time period is included. Creatine Kinase (CK), S 2232(H) 39 - 308 U/L 11/27/2023 7:28 AM CDT DTL Blood (Blood, Venous) 11/27/2023 6:13 AM CDT 11/27/2023 6:53 AM CDT Serafin Ford M.D. LAB BLOOD ADD-ON [facility] [address] [place] [address], [facility] [address] [place] [address] * (ABNORMAL) Calcium, Ionized (11/27/2023 6:13 AM CDT) Only the most recent of7 resultswithin the time period is included. Calcium, Ionized, S 4.41(L) 4.57 - 5.43 mg/dL 11/27/2023 7:12 AM CDT DTL Comment: ----ADDITIONAL INFORMATION---- This test has been modified from the line cleaner's instructions. Its performance characteristics were determined by [facility] in a manner consistent with CLIA requirements. This test has not been cleared or approved by the U.S. Food and Drug Administration. pH for Ionized Calcium 7.46 7.35 - 7.48 11/27/2023 7:12 AM CDT DTL Blood (Blood, Venous) 11/27/2023 6:13 AM CDT 11/27/2023 6:53 AM CDT Barbara Pelayo APRN.N.P., D.N.P. LAB BLOOD NON ADD-ON Performing Organization Address City/[facility] Co de Phone Number [address] [place] [address] * Patient Status (11/26/2023 5:28 PM CDT) Only the most recent of5 resultswithin the time period is included. O2 Flow 6.0 L/min 11/26/2023 5:32 PM CDT [facility] Device NC 11/26/2023 5:32 PM CDT [facility] Spont. breaths/min 18 11/26/2023 5:32 PM CDT [facility] Blood 11/26/2023 5:28 PM CDT 11/26/2023 5:32 PM CDT Charlotte Ordaz APRN, Barbara.N.P., D.N.P. LAB BLOOD NON ADD-ON Performing Organization Address City/[facility]/ZIP Co de Phone Number [address] [place] [address] * (ABNORMAL) Blood Gas with Coox, Arterial [...] APRN, C.N.P., D.N.P. LAB BLOOD NON ADD-ON [facility] [address] [place] [address], [facility] [address] [place] [address] * pH (11/26/2023 11:21 AM CDT) Only the most recent of3 resultswithin the time period is included. pH 7.45 7.35 - 7.45 pH 11/26/2023 11:27 AM CDT [facility] Blood 11/26/2023 11:2 1 AM CDT 11/26/2023 11:26 AM CDT Charlotte Ordaz APRN, C.N.P., D.N.P. LAB HISTORICAL ORDERS Performing Organization Address [facility] Co de Phone Number [facility] [address] [place] [address] * Thromboelastograph, Kaolin, Blood (11/26/2023 7:45 AM [...] 7:45 AM CDT 11/26/2023 7:50 AM CDT Tracy Pelayo APRNNTarikP., D.N.P. LAB BLOOD NON ADD-ON Performing Organization Address City/[facility]/ZIP Co de Phone Number [facility] [address] [place] [address], [facility] [address] [place] [address] * Transfuse Fresh Frozen Plasma :Bleeding with [...] 4 image 40). Procedure Note Devora, Chavez oBb M.D. - 11/26/2023 EXAM: CT ABDOMEN PELVIS [...] LAB BLOOD NON ADD-ON Performing Organization Address [facility] Co de Phone Number [facility] [address] [place], [place] [phone] [place] [address] [place] [address] * FL Fluoro Less Than 1 Hour (11/25/2023 2:52 PM CDT) Narrative 152 HOS LOS RST - 11/25/2023 2:54 PM CDT This exam does not require a radiologist review or interpretation. Please refer to the patient's medical record on this date for clinical details. Francisco Staley M.D. IMG FLUOROSCOPY PROCEDURES Performing Organization Address [facility] Co de Phone Number 152 HOS [...] - 145 mmol/L 11/25/2023 1:33 PM CDT [facility] Blood (Blood, Arterial Line) 11/25/2023 1:31 PM CDT 11/25/2023 1:31 PM CDT Ale Tatum M.D. LAB BLOOD NON ADD-ON Performing Organization Address City/[facility]/ZIP Co de Phone Number [facility] [address] [place] [address], [facility] [address] [place] [address] * Potassium, Blood (11/25/2023 1:31 PM CDT) Only the most recent of3 resultswithin the time period is included. Potassium, B 3.7 3.6 - 5.2 mmol/L 11/25/2023 1:34 PM CDT ST[facility] Blood (Blood, Arterial Line) 11/25/2023 1:31 PM CDT 11/25/2023 1:31 PM CDT Ale Tatum M.D. LAB BLOOD NON ADD-ON Performing Organization Address [facility] Co de Phone Number [facility] 200 [place] [address] * (ABNORMAL) Glucose, Whole Blood (11/25/2023 1:31 PM CDT) Only the most recent of3 resultswithin the time period is included. Glucose 165(H) 70 - 140 mg/dL 11/25/2023 1:33 PM CDT [facility] Blood (Blood, Arterial Line) 11/25/2023 1:31 PM CDT 11/25/2023 1:31 PM CDT Ale Tatum M.D. LAB BLOOD ADD-ON Performing Organization Address [facility] Co de Phone Number [facility] [address] 200 [place] [address] * (ABNORMAL) Hemoglobin, Whole Blood (11/25/2023 12:13 PM CDT) Hemoglobin, B 8.1(L) 13.2 - 16.6 g/dL 11/25/2023 12:14 PM CDT [facility] Blood (Blood, Arterial Line) 11/25/2023 12:13 PM CDT 11/25/2023 12:13 PM CDT Gogo Chavez APRN, [place]ON LAB BLOOD NON A DD-ON Performing Organization Address [facility] de Phone Number [facility] [address] [place], [place] [phone] [place] [address] 200 [place] [address] * Transfuse Red Blood Cells : (11/25/2023 [...] LAB BLOOD NON ADD-ON Performing Organization Address [facility] Co de Phone Number [facility] [address] [place], [place] [phone] [place] [address] 200 [place] [address] * AR ARTL CATH/CNULA MONITOR PERC, LDA ANE ARTERIAL [...] fellow participated in the procedure, and the freight traffic consultant was present for the entire procedure. [...] ETT location: oral VL device: glide scope [place] scope blade size: 3 Tube size: 7.5 [...] AM CDT Hilda Carranza APRN, C.N.P., M.S.N. JOHANNA Cota BLOOD NON ADD-ON [facility] [address] [place] [address], [facility] STMA [facility] [address] [place] [address] * (ABNORMAL) Blood Gas with Coox, Venous [...] C.N.P., M.S.N. LA B BLOOD NON ADD-ON [facility] [address] [place], [place] [phone] [place] [address] STMA [facility] 200 [place] [address] * (ABNORMAL) Dipstick, Urine (11/24/2023 9:58 AM [...] Hansen APRN, C.N.P., D.N.P. LAB URINE ORDERABLES [facility] 200 [place] [address], [facility] DTL [facility] 200 [place] [address] * (ABNORMAL) Microscopic Manual (11/24/2023 9:58 AM [...] D.N.P. LAB URINE ORDERABLES Performing Organization Address City/[facility]/ZIP Co de Phone Number [facility] [address] 200 [place] [address] * pH, Urine (11/24/2023 9:58 AM CDT) [facility] pH, U 5.1 4.5 - 8.0 11/24/2023 11: 48 AM CDT DTL Urine 11/24/2023 9:58 AM CDT 11/24/2023 10:39 AM CDT Janina Hansen APRN C.N.P., D.N.P. LAB URINE ORDERABLES Performing Organization Address City/[facility]/ZIP Co de Phone Number [facility] 200 [place] [address] * Osmolality, Urine (11/24/2023 9:58 AM CDT) Osmolality, U 901 150 - 1150 mOsm/kg 11/24/2023 11:48 AM CDT DTL Urine 11/24/2023 9:58 AM CDT 11/24/2023 10:39 AM CDT Janina Hansen APRN, C.N.P., D.N.P. LAB URINE ORDERABLES Performing Organization Address City/[facility]/ZIP Co de Phone Number [facility] [address] [place] [address], [facility] [address] [place] [address] * (ABNORMAL) Urinalysis, with Microscopic: Urine, Catheter [...] Hansen APRN, C.N.P., D.N.P. LAB URINE ORDERABLES [facility] [address] [place] [address], [facility] DTL [facility] [address] [place] [address] * Drug Screen Urine (11/24/2023 7:01 AM [...] CDT 11/24/2023 7:27 AM CDT Tracy Yancey APRNNLeon., M.S.N. LA B URINE ORDERABLES [facility] 200 [place] [address], [facility] 200 [place] [address] * DX Femur Left 1 View (11/24/2023 [...] CDT Bereket Snider M.D. LAB BLOOD TROPONIN [facility] [address] [place] [address], [facility] [address] [place] [address] * DX Femur Left 2 Views (11/23/2023 [...] LAB BLOOD A DD-ON Performing Organization Address [facility]/ZIP Co de Phone Number [facility] 200 [place] [address], [facility] STMA [facility] 200 [place] [address] * Hemoglobin A1c (11/23/2023 4:51 PM CDT) Pathologist [facility] Hemoglobin A1c, B 5.4 4.0 - 5.6 % 11/23/2023 5:42 PM CDT DTL Blood (Blood, Venous) 11/23/2023 4:51 PM CDT 11/23/2023 5:19 PM CDT Sheldon Choi P.A.-C. LAB BLOOD A DD-ON Performing Organization Address City/[facility]/ZIP Co de Phone Number [facility] [address] [place] [address], [facility] DTL [facility] [address] * Critical Care (11/23/2023 4:42 PM CDT) [...] deterioration of the following conditions: shock trauma ADJUSTER LEADER failure or compromise hemorrhage Critical care was [...] Snider M.D. IM CT PROCEDURES * CT Thoracic Spine by [...] Snider M.D. IM CT PROCEDURES * CT Cervical Spine without [...] spine. Chronicchanges as noted. Bereket Snider M.D. [facility] CT PROCEDURES * CT Chest with IV [...] with Reflex, POCT (11/23/2023 1:06 PM CDT) [facility] Lactate, POCT 1.67 0.50 - 2.20 mmol/L 11/23/2023 1:19 PM CDT [facility] Blood (Blood, Venous) 11/23/2023 1:06 PM CDT 11/23/2023 1:06 PM CDT Bereket Snider M.D. LAB POCT ORDERABLES - DEVICE POC [facility] 200 [place] [address], [facility] PCLX [facility] POC [address] [place] [address] * (ABNORMAL) Venous Blood Gas and Electrolytes CG8+, POCT (11/23/2023 1:06 PM CDT) [facility] Sample Site, POCT Venstick 11/23/2023 1:19 PM [...] LAB POCT ORDERABLES - DEVICE POC RST [facility] [address] [place] [place] [address] POC [address] [place] [address] * APTT (Activated Partial Thromboplastin Time) (11/23/2023 1:06 PM CDT) [facility] Activated Partial Thrombopl Time, P 30 25 - 37 sec 11/23/2023 2:03 PM CDT [facility] Blood (Blood, Venous) 11/23/2023 1:06 PM CDT 11/23/2023 1:18 PM CDT Bereket Snider M.D. LAB BLOOD ADD-ON [facility] [address] [place], [place] [phone] [place] [address] 200 [place] [address] * Type and Screen (with Reflex Antibody ID) (11/23/2023 1:06 PM CDT) [facility] [facility] AB Pos Not applicable 11/23/2023 1:46 PM CDT STRM Antibody Screen Negative Negative 11/23/2023 1:59 PM CDT STRM Type & Screen Expiration 11/26/2023 23:59 11/23/2023 1:46 PM CDT STRM Testing Location [place] DEFAULT 11/23/2023 1:19 PM CDT STRM Blood (Blood, Venous) 11/23/2023 1:06 PM CDT 11/23/2023 1:19 PM CDT Bereket Snider M.D. LAB BLOOD BANK TEST ORDERABLES [facility] [address] [place], [place] [id number] [place] [address] [address] [place] [address] * Ethanol Level, Serum (11/23/2023 1:05 PM CDT) [facility] Ethanol, S <10 <10 mg/dL 11/23/2023 2:1 4 PM CDT DTL Blood (Blood, Venous) 11/23/2023 1:05 PM CDT 11/23/2023 1:40 PM CDT Bereket Snider M.D. LAB BLOOD NON ADD-ON Performing Organization Address City/[facility]/ZIP Co de Phone Number [facility] [address] [place] [address], [facility] [address] [place] [address] * (ABNORMAL) Hepatic Function Panel (11/23/2023 1:05 [...] CDT Bereket Snider M.D. LAB BLOOD ADD-ON [facility] [address] [place] [address], [facility] DTL [facility] [address] [place] [address] * (ABNORMAL) S-TSH (Thyroid-Stimulating Hormone - Sensitive) (11/23/2023 1:05 PM CDT) TSH, Sensitive 6.1(H) 0.3 - 4.2 mIU/L 11/23/2023 2:14 PM CDT DTL Blood (Blood, Venous) 11/23/2023 1:05 PM CDT 11/23/2023 1:40 PM CDT Bereket Snider M.D. LAB BLOOD ADD-ON [facility] [address] [place] [address], [facility] [address] [place] [address] * Lipase (11/23/2023 1:05 PM CDT) Lipase, S 19 13 - 60 U/L 11/23/2023 2: 14 PM CDT DTL Blood (Blood, Venous) 11/23/2023 1:05 PM CDT 11/23/2023 1:40 PM CDT Bereket Snider M.D. LAB BLOOD ADD-ON Performing Organization Address City/[facility] Co de Phone Number [facility] [address] [place] [address], [facility] [address] [place] [address] from Last 3 Months Advance Directives For more information, please contact: [phone] * Full Code (Latest Code Status on File) Date Activated Date Inactivated Comments 11/23/2023 5:00 PM 12/27/2023 12:36 PM Question Answer Comments Full Code: Discussed Care Teams Supervisor Rice Milling Relationship Specialty Start Date End Date Elsewhere, Pcp PCP - General Internal Medicine 11/23/23
--- OUTSIDE RECORDS SUMMARY | 2024-01-23 10:42 | XMS_ITS | Encounter Summary ---
Author Organization [facility] Address [address] [place] [address] Care Team Providers Care Machine Shorthand Teacher Name Role Phone Elsewhere, Pcp Primary Care Provider Unavailabl e Reason for Referral * Outpatient (Routine) - Authorized Specialty Diagnoses / Procedures Referred By Contac t Referred To Contact Diagnoses Retention Urinary Procedures URO Uroflow Rody Arriaga APRN, C.N.P., D.N.P. [address] [place] [phone] [facility] Region Referral ID Status Reason Start Date Expiration Date V isits Requested Visits Authorized [id number] Authorized 12/27/2023 12/26/2024 1 1 * Outpatient (Routine) - Authorized Specialty Diagnoses / Procedures Referred By Contac t Referred To Contact Urology Diagnoses Retention Urinary Rody Arriaga APRN, C.N.P., D.N.P. [address] [place] [address] [facility] Region Referral ID Status Reason Start Date Expiration Date V isits Requested Visits Authorized [id number] Authorized 12/27/2023 06/27/2025 1 1 Reason for Visit * Reason Comments Fall * Auth/Cert (Routine) Specialty Diagnoses / Procedures Referred By Contac t Referred To Contact Diagnoses Anemia Contusion Buttock Initial Subarachnoid Hemorrhage With Loss Of Conscious Initial (HCC) Fracture Acetabulum Closed Initial Left (HCC) Fracture Ilium Closed Initial Left (HCC) History Of Falling Other Shock (Hemorrhagic Shock) (HCC) Retroperitoneal Hematoma Procedures EMERGENCY Carol Miller M.D. [address] [place] [phone] Referral ID Status Reason Start Date Expiration Date Visits Re quested Visits Authorized [id number] 1 1 Encounter Details Date Type Department Care Team (Latest Contact Info) Description 11/23/2023 12:47 PM CDT - 12/27/2023 10:25 AM CDT Hospital Encounter [facility], [facility], Fifth Floor [address] [place] [phone] Carol Miller M.D. [address] [place] [phone] Jason Navarrete M.D. [address] [place] [phone] Landen Quinonez M.D. [address] [place] [phone] Alexi Khan M.D. [address] [place] [phone] Kong Mendoza M.D. [address] [place] [phone] Alexandra Varela M.D. [address] [place] [phone] Tamiko Barnett M.D., M.S. [address] [place] [phone] Gabriel aRmirez M.D. [address] [place] [phone] Fracture Ilium Closed Initial Left (HCC) (Primary [...] (HCC); Effusion Pleural Discharge Disposition: Home-Health Care Svc Social History Tobacco Use Types Packs/Day Years [...] 1:51 PM CDT documented in this encounter Discharge Summaries * Rody Arriaga, LOC, C.N.P., D.N.P. - 12/27/2023 9:17 AM CDT DISCHARGE SUMMARY BRIEF OVERVIEW Hospital: [facility] Discharge Provider: Gabriel Ramirez M.D. Primary Team: RST [facility] Trauma Primary Care Providers: Elsewhere, Pcp (General) No address on file Primary Care Provider Phone Number: None Primary Care Provider Fax Number: None Admission Date: 11/23/2023 Discharge Date: 12/27/2023 PRINCIPAL DIAGNOSIS Fracture Ilium Closed Initial Left (HCC) SECONDARY DIAGNOSES Principal Problem: Fracture Ilium Closed Initial Left (HCC) Active Problems: History Of Falling Subarachnoid Hemorrhage Without Loss Of Conscious Initial (HCC) Contusion Scalp Initial Fracture Rib Single Closed Initial Left Anemia Posthemorrhagic Acute (Blood Loss Anemia) Fracture Acetabulum Other Closed Initial Left (HCC) Fracture Pelvis Multiple Closed With Stable Disruption Pelvis Ring Initial (HCC) Encephalopathy Metabolic Decline Cognitive Delirium Acute Overweight Body Mass Index 25-29.9 Adult Atelectasis Effusion Pleural Thrombosis Deep Vein Lower Extremity Left (HCC) Dysphagia Retention Urinary Injury Blood Vessel Abdomen Lower Back Pelvis Initial Resolved Problems: * No resolved hospital problems. * Surgery Information This Encounter Past Procedures (12/27/2022 to Today) Date Procedures Providers Loc / Dept 11/25/2023 OPEN REDUCTION INTERNAL FIXATION ACETABULUM. Naveed Higuera M.D.Markos, James R, M.D.Labott, Joshua R, M.D.Hidden, Krystin A, M.D. RST ROMB OR Unscheduled Procedures Date Procedures Providers Loc / Dept Not Scheduled OPEN REDUCTION INTERNAL FIXATION ACETABULUM. Rodrigo Leiva M.D. RST ROMB OR DISCHARGE DISPOSITION [facility] [facility] [place]6] ACTIVE ISSUES REQUIRING FOLLOW UP ORTHOPEDIC RECOMMENDATIONS: [...] this provoked DVT secondary to femur fracture. Yourfollow up lower extremity ultrasound was stable with no proximal extension noted. Vascular medicinerecommends NO need for anticoagulation post discharge.You have been instructed in the signs and symp toms of deep venous thrombosis, including calf swelling, [...] sweats. If these findings are noted, patient shouldcontact Dr. Higuera's team immediately to discuss next [...] images has been included in your discharge paperwork.Please complete these images locally and either have them pushed to the [facility] or sent to Dr. Higuera's team via disc for review. You will be scheduled for an in person follow up visit at 12 weeks post surgery with repeat imaging at which time advancement to your weight bearing will be discussed.Please contact Dr. Higuera's team with any questions regarding follow up plan at [phone]. NO FOLLOW UP REQUIRED WITH TRAUMA-CRITICAL CARE-GENERAL SURGERY (TCGS): You do not require a follow up appointment at this time. If you are having difficulty, have questions or would like to be seen in follow-up, please call to make an appointment at [phone]. If you need to reach a provider on the TCGS service after hours, you may call the [facility] lead vulcanizing operator at and ask to speak the provider azure principal solution specialist for the Trauma-Critical Care-General Surgery (TCGS) Service. If you have forms that need addressed by the surgery team or outside records that need to be uploaded, please email them to [email or web address] or fax them at [phone]. Issue: Follow up with pelvis x-rays What is Needed: pelvis x-rays Follow-up Appointments Arranged: No, but orders provided to family to have them done at a convenient clinic OUTPATIENT FOLLOW UP Scheduled Appointments 12/27/2023 1:15 PM RST INTAKE VISIT POD D 04 Admitting/Central Scheduling 12/28/2023 2:00 PM Harmony Lomas APRN, C.N.P., M.S.N. Neurological Surgery 02/13/2024 2:45 PM RST INTAKE VISIT POD D 04 Admitting/Central Scheduling 02/17/2024 12:00 PM DX ROAL RM 430 SMOP Radiology 02/17/2024 12:30 PM Naveed Higuera M.D. Orthopedic Surgery For appointment details refer to your Patient Appointment Guide. TEST RESULTS PENDING AT DISCHARGE Pending Labs None DETAILS OF HOSPITAL STAY REASON FOR ADMISSION Anemia Contusion Buttock Initial Subarachnoid Hemorrhage With Loss Of Conscious Initial (HCC) Fracture Acetabulum Closed Initial Left (HCC) Fracture Ilium Closed Initial Left (HCC) History Of Falling Other Shock (Hemorrhagic Shock) (HCC) Retroperitoneal Hematoma HOSPITAL COURSE #1 Status post Fall 6 feet from Ladder Mr. Grayson was transported to [facility] as a level red trauma for further evaluation and management of injuries sustained when he fell from a ladder. CT scans of the head, spine, chest,abdomen, and pelvis were obtained as well as [...] in the hospital which was read by neurosurgeryand showed the subarachnoid hemorrhage seen on 12/01/2023 remains absent. They will follow up with him over the phone. #4 Fracture Rib One Open Initial Left #5 Atelectasis #6 Effusion Pleural Left anterior 6th rib fracture He was initiated on trauma rib fracture protocol. Chest x-rays were monitored closely. He continuedwith pulmonary hygiene throughout hospitalization. No follow up [...] extended period of time due to head bleed.He underwent serial ultrasound imaging of bilateral lower [...] on 12/20 with medications given whole with pureedbites. #16 Retention Urinary After indwelling urinary catheter [...] [facility] CONSULTS ORDERED DURING THIS ADMISSION IP CONSULT TO ORTHOPEDIC SURGERY IP CONSULT TO NEUROLOGICAL SURGERY IP CONSULT TO HOSPITAL INTERNAL MEDICINE IP CONSULT TO HOSPITAL INTERNAL MEDICINE IP CONSULT TO PHYSICAL MEDICINE & REHABILITATION IP CONSULT TO NEUROLOGY IP CONSULT TO GLASS PRODUCTION MACHINE OPERATOR WOUND CARE HUMANITIES IN MEDICINE SERVICES ([facility]) IP CONSULT TO SOLUTION SPECIALIST WARRANTY MANAGER IP CONSULT TO SOLUTION SPECIALIST WARRANTY MANAGER IP CONSULT TO VASCULAR MEDICINE IP CONSULT TO SOLUTION SPECIALIST WARRANTY MANAGER IP CONSULT TO CARE MANAGEMENT CONDITION AT DISCHARGE stable Discharge instructions were provided to the patient and caregiver(s). Total time spent in discharge services today: 35 minutes. documented in this encounter Discharge Instructions * Discharge Instructions* Stephanie Beckham - 11/24/2023 7:00 AM CDT You were discharged from the [facility] Trauma Service. Please identify this service name if you callwith questions after hospitalization. * Discharge Instr - Activity* Lizett Calles O.T. - 12/27/2023 8:41 AM CDT OT Dysphagia Therapy Discharge Summary Impression:Mr. Grayson participated in a clinical bedside dysphagia [...] assessment and staff observations of difficulties swallowing. Current diet: Diet Recommendations - Solids: IDDSI Level 7 Regular Diet Recommendations - Liquids: IDDSI Level 0 Thin Recommended Form of Meds: With puree, Whole Recommendations: Aspiration Precautions: Recommended Aspiration Precautions: Watch closely for signs of aspiration, Eat small bites, take small sips, eat slowly, Sit upright with all oral intake and when completing oral cares, Avoid lying down for 15 minutes after meals Compensation Techniques/Adaptive Equipment: Recommended Compensation Techniques/Adaptive Equipment: Requires supervision/assistance, Compensations for cognitive impairment, Alternate solid food with small amounts of liquids, No straws Compensations for Cognitive Impairment: Ensure a calm, distraction free environment, Assistance with feeding should be provided in an unhurried manner, Sit down near the patient when assisting with feeding whenever possible Positioning: Positioning Recommendations: Upright as possible for all oral intake Follow-up Information: No further dysphagia follow-up recommended at this time. If patient develops any additional/new signs or symptoms of dysphagia a dysphagia evaluation may be warranted. Discharge information provided by on 12/27/2023 by Rissa Calles O.T. Contact information: [facility], [address], * Attachments The following attachments cannot be sent through Care Everywhere. * Acetaminophen (By mouth) ([place]) * Finasteride (By mouth) ([place]) * Melatonin (By mouth) ([place]) * Metoprolol (By injection) ([place]) * Polyethylene Glycol 3350 (By mouth) ([place]) * Laxative, Stimulant (By mouth) ([place]) * Tamsulosin (By mouth) ([place]) documented in this encounter Medications at Time of Discharge Medication Sig Dispensed Refills Start Date End Date acetaminophen (TylenoL) 325 mg tablet Take 2 tablets (650 mg total) by mouth every 6 (six) hours as needed for pain or mild pain or score 1-3 of 10. 12/27/2023 finasteride (Proscar) 5 mg tablet Take 1 tablet (5 mg total) by mouth daily. 60 tablet 12/27/2023 melatonin 5 mg tablet Take 1 tablet (5 mg total) by mouth at bedtime as needed (If having troubles falling asleep). 12/27/2023 metoprolol tartrate (Lopressor) 25 mg tablet Take 0.5 tablets (12.5 mg total) by mouth 2 (two) times a day. 60 tablet 12/27/2023 polyethylene glycol (Miralax) 17 gram powder packet Take 1 packet (17 g total) by mouth daily. Dissolve each 17 g dose in 240 mLs (8 ounces) of beverage. 12/27/2023 sennosides (Senokot) 8.6 mg tablet Take 2 tablets (17.2 mg total) by mouth 2 (two) times a day. 12/27/2023 tamsulosin (Flomax) 0.4 mg 24 hr capsule Take 2 capsules (0.8 mg total) by mouth daily. 60 capsule 12/27/2023 documented as of this encounter Progress Notes * Rody Arriaga, LOC, C.N.P., D.N.P. - 12/27/2023 10:03 AM CDT Images from the original note were not included. SUBJECTIVE Mr. Grayson was seen and examined by the Trauma team in his room this morning. He is hospital day 34 after having a 6 foot fall from a ladder. He is resting comfortably in bed. He reports that he has no pain today. He denies any nausea and vomiting, denies any shortness of breath, chest pain or dizziness or lightheadedness. He reports having a bowel movement and flatus. He is alert and oriented x 3 today. He feels ready to go home today. OBJECTIVE VITAL SIGNS Blood Pressure: 124/64, Pulse Rate: 76, Resp Rate: 16, Temperature: 36.6 ??C, SpO2: 98 % I/O last 3 completed shifts: In: 480 [P.O.:480] Out: 400 [Urine:400] Vitals and nursing note reviewed. Constitutional General: He is not in acute distress. Appearance: He is not toxic-appearing. Cardiovascular Rate and Rhythm: Normal rate and regular rhythm. Pulses: Normal pulses. Radial pulses are 2+ on the right side and 2+ on the left side. Dorsalis pedis pulses are 2+ on the right side and 2+ on the left side. Pulmonary Effort: Pulmonary effort is normal. No respiratory distress. Breath sounds: Normal breath sounds. Abdominal General: There is no distension. Palpations: Abdomen is soft. Skin General: Skin is warm. Capillary Refill: Capillary refill takes less than 2 seconds. Comments: Orthopedic surgical incisions are well approximated, soft. No ecchymosis or erythema noted. There are some inna noted on his left leg and near his right hip. Neurological Mental Status: He is alert and oriented to person, place, and time. Sensory: Sensation is intact. Motor: Motor function is intact. Psychiatric Mood and Affect: Mood normal. DIAGNOSTICS No results found. ASSESSMENT / PLAN Mechanism of Injury: Fall from ladder #1 History Of Falling #2 Subarachnoid Hemorrhage Without Loss Of Conscious Initial (HCC) #3 Contusion Scalp Initial Left frontal lobe SAH Large left frontal scalp hematoma - Neurosurgery Chief C service consulted - Cleared for DVT prophylaxis on 12/11. - Repeat head CT completed 12/25 - reviewed by neurosurgery and they deemed no further intervention, the subarachnoid hemorrhage was no longer present - He will have a follow up phone call with the neurology team this afternoon #4 Fracture Rib Single Closed Initial Left #5 Atelectasis #6 Effusion Pleural - Last CXR 12/05 with decreased perihilar and bibasilar atelectasis. Low lung volumes although this may be related to following directions. Strong inspiratory effort at bedside - No follow up needed at discharge due to length of hospitalization. #7 Fracture Pelvis Multiple Closed With Stable Disruption Pelvis Ring Initial ([facility]) #8 Fracture Acetabulum Other Closed Initial Left ([facility]) #9 Fracture Ilium Closed Initial Left ([facility]) -S/p ORIF Acetabulum (11/25/23) -OTS-1 consulted -TTWB LLE. -Patient is having difficulty with understanding WB restrictions. We will continue reminders. PMR continues to follow. He is scheduled for a follow up with Dr. Higuera on 01/04/24. -Contacted OTS about pelvic x-rays that were completed 12/24. They deemed that the x-ray was fine. They still, however, need x-rays in 2 weeks per their protocol. A printed order for an X-ray was provided for the patient to obtain in 2 weeks at an x-ray lab close to his home as there are transportation barriers. -Of note, additional inna were spotted today on exam, orthopedics was notified and these were subsequently removed #10 Injury Blood Vessel Abdomen Lower Back Pelvis Initial #11 Anemia Posthemorrhagic Acute (Blood Loss Anemia) Moderate hemorrhage in the left retroperitoneum and pelvis tracking in left anterior perivesical space and along the anterior bladder wall Intramuscular hematomas in the left psoas, left iliacus and left gluteus minimus and medius -Hemoglobin stable. -We will repeat labs as indicated. #15 Thrombosis Deep Vein Lower Extremity Left (HCC) Left Soleal DVT -Vascular Medicine consulted -Noted with isolated distal provoked DVT. -Repeat US 12/18 with no noted change -No therapeutic anticoagulation necessary. DVT prophylaxis will continue due to decreased mobility.No anticoagulation on discharge. #12 Decline Cognitive #13 Delirium Acute #14 Encephalopathy Metabolic -Geriatrics consulted -On Ramelteon and Melatonin -Delirium prevention continuing. #16 Dysphagia -OT Dysphagia following. -Advanced to regular diet 12/20, medications whole with puree #17 Retention Urinary -Initiated on Flomax and Finasteride. -Continues to require I/O catheterization. -Patient's has declined rosado placement given delirium and has elected to continue I/O. -Urinary retention improving and patient voiding some on his own. Last Bladderscan was 407 -Patient intermittently declining medications. Patient's is aware and encouraging patient to take medications are prescribed -Will need outpatient Urology follow up - this has been ordered #18 Overweight Body Mass Index 25-29.9 Adult -Recommend follow up with PCP for ongoing management and lifestyle changes PLAN -DC today with transportation to home set up by social work -Followed up with neurosurgery and orthopedics who cleared the patient's most recent images - neurosurgery will call the patient on the phone this afternoon, orthopedics will have him complete followup x-rays in 2 weeks wherever is most convenient for him -Set up urology follow up for ongoing urinary retention Diet: Adult Diet Regular Activity: toe touch weight bearing left lower extremity VTE Prophylaxis: Enoxaparin 30mg BID GI Prophylaxis: not indicated Bowel Regimen: Dulcolax, Miralax, and Senna Pain: Tylenol and triple cream, Lidoderm Antibiotics: None Disposition: Home with home health being set up by the [facility], discharge later today If you have any questions or concerns please page the Trauma Service at [phone] * Hayley Durham L.G.S.W., M.S.W. - 12/27/2023 9:25 AM CDT SUBJECTIVE Social Work communicated with PT and patient's regarding walker availability at home. Social Work spoke to patient's after his return home. Patient's maroon/red bag did not return home withhim. Social Work inquired with nursing about the missing item. Social Work called [facility] [employer]. [facility] stated that the [facility] gave them two white bags and a brown suitcase. The [facility] declined additional resources. Anticipated Needs Functional Status: bathing, toileting, transfers to/from bed, chair, etc., mobility, meal preparation, medication setup/administration, telephone use, housekeeping, shopping, managing finances, and transportation use (drive car, use taxi/bus) Assistive Devices: cell phone, grab bars - toilet, grab bars - wall, hearing aid/s, hospital bed, ramp, tub/shower chair/bench, walker - front wheeled, walker - four wheeled, and wheelchair - manual Services/Resources: in home health aide, PT, OT provided by [facility] Modifications to home environment: ramp, grab bars, relocate bedroom, and hospital bed Transportation: wheelchair van Anticipated discharge destination: Home OBJECTIVE Patient is medically ready for discharge. Ramp was installed on 12/23/23. Hospital bed will be delivered on 12/27/23. Home health aide and PT/OT being arranged by the [facility]. ASSESSMENT / PLAN Assessment Those noted above appear to have insight into the patient's needs at this time and are planning appropriately for discharge needs. They report agreement with the below plan with no further questions at this time. Plan Patient will discharge home on 12/27/23 with [facility] [employer] ([phone]) at 10:00 am. [facility] will meet the patient at the main west doors. Patient's will not be present at discharge as she will be awaiting delivery of hospital bed inthe home. Social Work will continue to follow to provide support. Social Work will continue to assist with discharge needs. Aimee Ahuja, M.S.W. 12/27/2023 * Naveed Higuera, LOC, C.N.P., M.S.N. - 12/26/2023 5:29 PM CDT Images from the original note were not included. SUBJECTIVE I met and examined Mr. Grayson this morning. Mr. Grayson is hospital day 33 for management of histraumatic injuries following fall 6 ft from a ladder. He remains hemodynamically stable and afebrile. No acute events overnight or behavioral concerns per nursing. This morning he is resting comfortably in bed and has no complaints. His pain is tolerable on current regimen and including during activity. He has tolerating a diet and denies nausea. He denies shortness of breath. He is mobilizing well independently although not adhering to his weight-bearing restrictions secondary to his baseline cognition. OBJECTIVE Temperature: [36.6 ??C] 36.6 ??C Resp Rate: [16-17] 17 Blood Pressure: (110-141)/(61-81) 110/63 SpO2: [95 %-100 %] 100 % Pulse Rate: [64-71] 65 I/O / 0701 12/24 0700 12/24 0701 / 0700 / 0701 / 0700 P.O. 540 220 360 Total Intake(mL/kg) 540 (5.8) 220 (2.4) 360 (3.9) Urine (mL/kg/hr) 1175 (0.5) 1100 (0.5) 400 (0.4) Stool 0 Total Output 1175 1100 400 Net -635 -880 -40 Unmeasured Urine Occurrence 1 x 1 x Unmeasured Stool Occurrence 1 x 3 x Constitutional Appearance: He is not ill-appearing. Eyes Pupils: Pupils are equal, round, and reactive to light. Cardiovascular Rate and Rhythm: Normal rate and regular rhythm. Pulses: Normal pulses. Pulmonary Effort: Pulmonary effort is normal. No respiratory distress. Breath sounds: Normal breath sounds. Comments: Clear lung muniz throughout. Symmetric chest wall expansion. Strong inspiratory effort and strong nonproductive cough. Abdominal General: There is no distension. Palpations: Abdomen is soft. Tenderness: There is no abdominal tenderness. There is no guarding or rebound. Musculoskeletal Comments: Neurovascularly intact throughout Skin General: Skin is warm and dry. Capillary Refill: Capillary refill takes less than 2 seconds. Comments: Incisions along the pubis, left hip and left thigh. All incisions are nonerythematous, nodrainage or fluctuance. Neurological Mental Status: He is alert. Mental status is at baseline. Comments: Alert to person and place but not time Diagnostics ASSESSMENT / PLAN Diet: Adult Diet Regular [...] today as part of OTS follow up. Follow up with OTS results. - Contacted Neurosurgery yesterday requesting head CT . Neurosurgery to complete follow up 12/26 - No changes to medical management. - DME for Urological supplies pended. - patient will need to be discharged by 10:00 a.m. on 12/26 #1 Status post Fall 6 feet from [...] Closed With Stable Disruption Pelvis Ring Initial ([facility]) #8 Fracture Acetabulum Other Closed Initial Left ([facility]) #9 Fracture Ilium Closed Initial Left ([facility]) Multiple comminuted fractures of left anterior and [...] complete follow up in patient given prolonged hospitalizationand with difficult transportation needs. Would recommend contact [...] DVT prophylaxis will continue due to decreased mobility.We will monitor. 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 #17 Dysphagia -OT Dysphagia following. -Advanced to regular diet 12/20, medications whole with puree #18 Retention Urinary -Initiated on Flomax and Finasteride. -Continues to require I/O catheterization. -Patient's has declined rosado placement given delirium and has elected to [...] concerns please page the Trauma Service at [phone] * Nydia Shepard D.T.R. - 12/26/2023 3:43 PM CDT Clinical Nutrition: Reassessment RECOMMENDATIONS REQUIRING MD/PROVIDER ORDER No changes at this time; continue current nutrition orders For questions about patient's nutritional care please contact pager [phone] on weekdays or [phone] on weekends/holidays. NUTRITION ASSESSMENT: Mr. Grayson is a 83 y.o. male who was admitted for fall off ladder Requested to see patient for evaluation of: oral intake encouragement. Current Diet Order: Adult Diet Regular Spoke with REGIONAL VICE PRESIDENT SURGICAL SALES in room with Carlos Alberto (he slept during interview). She notes that he has been eating ~25% of breakfast, but taking the smoothies (he likes anything meyer). Will change evening magic to meyer flavor. He is eating 25-100% of meals. Intake variable, but does supplement intake with outside foods. Spot check on intake - ate ~ 2150 calories and 98 g protein (not including 2 puddings) which meets needs. Weight appears to be holding stable over the past few weeks.. he has been cleared for general textures with cuing to slow down. ANTHROPOMETRICS: Height: 180.3 cm Admission Weight: 86.3 kg (11/23/2023) Current Weight: 93.4 kg BMI (Calculated): 28.7 kg/m?? ESTIMATED NEEDS: Total Calorie Needs: 6155-1793 calories/day Method to Estimate Energy Needs: kcal/kg ( ) Weight Used for Equation Calculations: 86.3 kg Total Protein Needs: 85 - 102 grams/day Method to Estimate Protein Needs (g/kg): 1 - 1.2 gm/kg Weight Used to Calculate Protein Needs (Kg): 85 kg Nutrition Diagnosis: Swallowing difficulty related to fall and confusion as evidenced by need for dysphagia diet Nutrition Diagnosis Reassessment: Ongoing (improving) Nutrition Intervention: Medical food supplement, Increase nutrient intake with small, frequent meals and/or snacks, Vitaminand mineral supplements Monitoring/Evaluation: Nutrition parameter to monitor: Meals/Supplement Intake, Diet Progression/NPO Status, Skin Integrity, Pertinent Labs, Nausea/Vomiting/Diarrhea, Chewing/Swallowing * Lalita Boyd P.T., Olivia.P.T. - 12/26/2023 2:54 PM CDT 12/26/23 1454 Reason Therapy Missed Reason Therapy Missed Patient declined therapy Patient was heading to CT upon attempt this morning. Upon return in the afternoon, patient declinedtherapy as he wished to rest. Will follow up as able and appropriate to progress plan of care. Lalita Boyd P.T., Olivia.P.T. * Hayley Durham L.G.SVianey, M.S.W. - 12/26/2023 9:48 AM CDT SUBJECTIVE Social Work spoke with patient's multiple to time to finalize discharge planning. Patient's intends to call [facility] to pay $239.40 prior to scheduled ride time. Social Work communicated discharge plan with Service and Nursing. Social Work spoke with Margie at the [facility] regarding home health services. Margie continues to work towards establishing PT/OT/care home/home health aide. Margie also shares that patient's [facility] provider has created necessary PT/OT/care home/homehealth orders. Social Work confirmed with patient's that she is comfortable with discharge on 12/27/23 without confirmation of those home health care services in place. Patient's shares patient has been walking in the hallway with walker and she feels confident that the home health aide services are nearly complete. Patient's desires proceeding with planned discharge. The [facility] declined additional resources. Anticipated Needs Functional Status: bathing, toileting, transfers to/from bed, chair, etc., mobility, meal preparation, medication setup/administration, telephone use, housekeeping, shopping, managing finances, and transportation use (drive car, use taxi/bus) Assistive Devices: cell phone, grab bars - toilet, grab bars - wall, hearing aid/s, hospital bed, ramp, tub/shower chair/bench, walker - front wheeled, walker - four wheeled, and wheelchair - manual Services/Resources: in home health aide, PT, OT provided by [facility] Modifications to home environment: ramp, grab bars, relocate bedroom, and hospital bed Transportation: wheelchair van Anticipated discharge destination: Home OBJECTIVE Patient is medically ready for discharge. Ramp was installed on 12/23/23. Hospital bed will be delivered on 12/27/23. Home health aide and PT/OT being arranged by the [facility]. ASSESSMENT / PLAN Assessment Those noted above appear to have insight into the patient's needs at this time and are planning appropriately for discharge needs. They report agreement with the below plan with no further questions at this time. Plan Patient will discharge home on 12/27/23 with [facility] ([phone]) at 10:00 am. [facility] will meet the patient at the main west doors. Patient's will not be present at discharge as she will be awaiting delivery of hospital bed inthe home. Social Work will continue to follow to provide support. Social Work will continue to assist with discharge needs. Aimee Ahuja, M.S.W. 12/26/2023 * Alejandra Justin, Pharm.D., R.Ph. - 12/26/2023 9:11 AM CDT Pharmacist Progress Note Reason for admission: 83 yo M admitted on 11/23/2023 for management of traumatic injuries following fall 6 ft from a ladder PMH: Cognitive impairment, BPH, Macular degeneration, cataracts, OBJECTIVE Home medications: No prior to admission medications reported Prophylaxis: Enoxaparin 30 mg BID Estimated Creatinine Clearance: 75.8 mL/min (by C-G formula based on SCr of 1.01 mg/dL). ASSESSMENT / PLAN Tentative dismissal plan for 12/26 Medications, labs, and notes have been reviewed. Pharmacy will continue to follow for medication optimization. Changes to medications anticipated at discharge: For dismissal anticipate ongoing metoprolol, ramelteon, finasteride, tamsulosin Alejandra Justin, PharmTarikD., R.Ph. * Kavon Mancilla APRN, C.N.P., D.N.P. - 12/25/2023 11:48 AM CDT Images from the original note were not included. SUBJECTIVE I met and examined Mr. Grayson this morning. Mr. Grayson is hospital day 32 for management of histraumatic injuries following fall 6 ft from a ladder. He remains hemodynamically stable and afebrile. Overnight the patient was using the bathroom and locked himself in. The situation was deescalatedand he returned to his bed without additional issue overnight. This did not require an activation of the CARMELO. He declined to take his medications during this time. This morning he is resting comfortably in bed and has no complaints. His pain is tolerable on current regimen and including during activity. He has tolerating a diet and denies nausea. He denies shortness of breath. He is mobilizing well independently although not adhering to his weight-bearing restrictions secondary to his baselinecognition. OBJECTIVE Temperature: [36.3 ??C-36.5 ??C] 36.5 ??C Resp Rate: [15-16] 16 Blood Pressure: (114-146)/(61-64) 114/61 SpO2: [93 %-96 %] 93 % Pulse Rate: [73-81] 80 Constitutional Appearance: He is not ill-appearing. Eyes Pupils: Pupils are equal, round, and reactive to light. Cardiovascular Rate and Rhythm: Normal rate and regular rhythm. Pulses: Normal pulses. Pulmonary Effort: Pulmonary effort is normal. No respiratory distress. Breath sounds: Normal breath sounds. Comments: Clear lung muniz throughout. Symmetric chest wall expansion. Strong inspiratory effort and strong nonproductive cough. Abdominal General: There is no distension. Palpations: Abdomen is soft. Tenderness: There is no abdominal tenderness. There is no guarding or rebound. Musculoskeletal Comments: Neurovascularly intact throughout Skin General: Skin is warm and dry. Capillary Refill: Capillary refill takes less than 2 seconds. Comments: Incisions along the pubis, left hip and left thigh. All incisions are nonerythematous, nodrainage or fluctuance. Neurological Mental Status: He is alert. Mental status is at baseline. Comments: Alert to person and place but not time Diagnostics ASSESSMENT / PLAN Diet: Adult Diet Regular [...] Closed With Stable Disruption Pelvis Ring Initial ([facility]) #8 Fracture Acetabulum Other Closed Initial Left ([facility]) #9 Fracture Ilium Closed Initial Left ([facility]) Multiple comminuted fractures of left anterior and [...] complete follow up in patient given prolonged hospitalizationand with difficult transportation needs. Would recommend contact [...] DVT prophylaxis will continue due to decreased mobility.We will monitor. 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 #17 Dysphagia -OT Dysphagia following. -Advanced to regular diet 12/20, medications whole with puree #18 Retention Urinary -Initiated on Flomax and Finasteride. -Continues to require I/O catheterization. -Patient's has declined rosado placement given delirium and has elected to [...] concerns please page the Trauma Service at [phone] * Kavon Mancilla APRN, C.N.P., Olivia.N.P. - 12/24/2023 2:38 PM CDT Images from the original note were not included. SUBJECTIVE I met and examined Mr. Grayson this morning. Mr. Grayson is hospital day 31 for management of histraumatic injuries following fall off a ladder. Nursing reports that overnight the patient became agitated and locked himself in the bathroom. He was able to be redirected to his bed. [facility] was calledbut the situation had already been de-escalated by the time they arrived. He slept the remainder ofthe night. This morning he is calm and cooperative. He denies pain. He has tolerating a diet and denies nausea. He denies shortness of breath and oxygen saturations are adequate on room air. OBJECTIVE Temperature: [36.4 ??C-36.8 ??C] 36.4 ??C Resp Rate: [18] 18 Blood Pressure: (126-158)/(62-67) 158/67 SpO2: [94 %-100 %] 100 % Pulse Rate: [71-78] 78 Constitutional Appearance: He is not ill-appearing. Cardiovascular Pulses: Normal pulses. Pulmonary Effort: Pulmonary effort is normal. No respiratory distress. Breath sounds: Normal breath sounds. Comments: Clear lung muniz throughout. Symmetric chest wall expansion, strong inspiratory effort and strong nonproductive cough. Abdominal General: There is no distension. Palpations: Abdomen is soft. Tenderness: There is no abdominal tenderness. There is no guarding or rebound. Skin General: Skin is warm and dry. Capillary Refill: Capillary refill takes less than 2 seconds. Comments: Pubic incision and left hip incision are both healed, nonerythematous, no drainage or fluctuance Neurological Mental Status: He is alert. Mental status is at baseline. Diagnostics I have reviewed xray ASSESSMENT / PLAN Diet: Adult Diet Regular Activity: TDWB LLE Pain regimen: Tylenol, triple cream, Lidoderm Bowel regimen: Senna, MiraLAX, bisacodyl p.r. PRN VTE chemoprophylaxis: Enoxaparin 30 mg b.i.d. GI prophylaxis: Not indicated Antibiotics: Not indicated Microbiology: None Dispo: Home with his and home health care on 12/26. SW assisting with wheelchair transportation Today's plans: - Order self-catheterization teaching for patient's - DME urology supplies are pended in discharge orders - Transition suppository from scheduled to PRN - Contact Neurosurgery and Orthopedic surgery about completing next week follow up on Tuesday prior to hospital discharge #1 Status post Fall 6 feet from [...] Atelectasis Left anterior 6th rib fracture - No follow up needed at discharge [...] DVT prophylaxis will continue due to decreased mobility.We will monitor. #13 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) #14 Decline Cognitive #15 Encephalopathy Metabolic #16 Delirium Acute -Geriatrics consulted -On Ramelteon and Melatonin -Delirium prevention continuing. #17 Dysphagia -OT Dysphagia following. -Advanced to regular diet 12/20, medications whole with puree #18 Retention Urinary -Initiated on Flomax and Finasteride. -Continues to require I/O catheterization. -Patient's has declined rosado placement given delirium and has elected to continue I/O. -Urinary retention improving and patient voiding some on his own. Last PVR 500 mL -Patient intermittently declining medications. Patient's is aware and encouraging patient to take medications are prescribed -Will outpatient Urology follow up #19 Disposition - Reviewed the discharge plan with the patient's and she is anticipating discharging home on 12/26 - Ramp was installed yesterday - Hospital bed will arrive Tuesday afternoon - DME urology supplies pended in discharge orders - Wheelchair transportation being arranged by [facility]. If this can't be set up, the patient's will provide transportation If you have any questions or concerns please page the Trauma Service at [phone] * Alexi Khan M.D. - 12/24/2023 1:25 PM CDT I saw and examined the patient along with the resident/EDITING CLERK-PA team and agree with the findings and recommendations in their note. I reviewed pertinent history, physical exam, labs, and imaging. Mr. Carlos Alberto Grayson is a 83 y.o. male admitted on 11/23/2023 after a fall. He suffered a TBI and pelvicfracture. He has undergone ORIF of the acetabulum. Essentially no medical issues in the last week. He remains ready for discharge. Alexi Khan MD, FACS Gun Synchronizer spinner hydraulic, [facility] Division of Trauma, Critical Care and General Surgery; Department of Surgery (Pager) (office) fax [email or web address] * Sheldon Leigh APRN, C.N.P., M.S.N. - 12/23/2023 10:25 AM CDT SUBJECTIVE Mr. Grayson was seen and examined by the Trauma team in his room this morning. He reports no pain this morning with assessment. He continues to have adequate PO intake with 1L charted yesterday. He continues to tolerate a general diet with encouragement. Appropriate urine output with 1.2L in addition to unmeasured voids. He has good bowel function. Overall, continues to improve in his spontaneous voiding with different post void residuals less than 400cc (goal). Required one intermittent cathing episode yesterday. Working well with therapy services. No agitation, acute events overnight, and has been hemodynamically stable. OBJECTIVE VITAL SIGNS Blood Pressure: (!) 125/53, Pulse Rate: 85, Resp Rate: 17, Temperature: 36.3 ??C, SpO2: 98 % I/O last 3 completed shifts: In: 590 [P.O.:590] Out: 1650 [Urine:1650] Cardiovascular Rate and Rhythm: Normal rate and regular rhythm. Pulses: Normal pulses. Heart sounds: Normal heart sounds. Pulmonary Effort: Pulmonary effort is normal. Breath sounds: Normal breath sounds. Abdominal General: Bowel sounds are normal. Palpations: Abdomen is soft. Skin General: Skin is warm and dry. Capillary Refill: Capillary refill takes less than 2 seconds. Neurological Mental Status: Mental status is at baseline. DIAGNOSTICS No results found. Lab results last 24 hours: No results found for this or any previous visit (from the past 24 hour(s)). ASSESSMENT / PLAN Daily Plan -Continue with therapy and ambulation services -Continue with pulmonary hygiene, IS, Aerobika -Encourage general diet intake and spontaneous voiding -Disposition to home with and HHC ([facility] pending approval) Mechanism of Injury: Fall from ladder (6ft) [...] Atelectasis Left anterior 6th rib fracture - No follow up needed at discharge [...] isolated distal provoked DVT. Recommended repeat US. performed on 12/18 with no noted change. No therapeutic anticoagulation necessary. DVT prophylaxis will continue due to decreased mobility. We will monitor. 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 On Ramelteon and Melatonin. Delirium prevention continuing. We will continue to monitor and await additional recommendations. He currently remains on 1:1 observation due to impulsiveness. #17 Dysphagia OT Dysphagia following. He has been cleared for Dysphagia Thin. We will continue to monitor recommendations. #18 Retention Urinary Geriatrics following. He was initiated on Flomax and Finasteride. He has continued to require I/Os.His has declined rosado placement given delirium and has elected to continue I/O. At this time,this will continue, however, as he is not completely voiding, with elevated PVR, will require continue I/O at discharge. This will be explained to or will continue if [facility] discharge. We will recommend outpatient Urology follow up PLAN New Consults Diet: Adult Diet Regular Activity: Touch toe weight bearing to LLE VTE Prophylaxis: Enoxaparin 30mg BID GI Prophylaxis: not indicated Bowel Regimen: Miralax and Senna Pain: Tylenol and triple cream, lidoderm Antibiotics: Not indicated Disposition: Home with family Pending [facility] approval Please page trauma at [phone] with any questions regarding the care of this patient. Thanks. * Hayley Durham, L.G.S.W., M.S.W. - 12/23/2023 10:22 AM CDT SUBJECTIVE Social Work reviewed patient's 's voicemail from 12/22/23. She [facility] for patient through [facility] in [place], [place] ([phone]; Olga or Mani-bicycle messenger). Social Work communicated via email and the telephone with [facility] and via phone multiple times with [facility] regarding discharge needs. Social Work sentcatheterization orders and description (Belarusian 14) to [facility] nurse supporting patient's PCP, Hayley Diaz. Addendum 1242: Social Work spoke to patient's . Ramp is being installed currently. Hospital bedwill be delivered on Tuesday. She requests wheelchair transport for a 12/27/23 discharge. OBJECTIVE Patient is awaiting DME and home health support arrangements in place via [facility] system to ensure safe discharge plan home with spousal support. ASSESSMENT / PLAN ASSESSMENT Patient's cognitive status precludes patient from placement in care home facility. Patient's is not agreeable to placement in Memory Care facility. Patient's desires patient dischargeto home with home health care support and DME arranged by [facility]. Patient's appears experienced and competent in providing cares in the home after discharge. 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 Patient's appears to be appropriately planning for patient's discharge needs and serves as an excellent advocate for patient. Patient's is extremely proactive and collaborative with [facility] Social Work and [facility] Social Work. Discharge planning progress continues. Waiting on ramp installation, hospital bed delivery, home health aide arrangement, and OT/PT arrangement, as well as catheters. Ramp and bed are expected to be in place by 12/24/23. PLAN -Patient's discharge disposition is home with home health care (care home, health aide, PT/OT) and DME provided (through [facility]) in advance on 12/27/23. -Transportation will be via wheelchair transport. -Social Work will assist with transition planning and will offer supportive visits as necessary during remainder of patient's hospital stay. Aimee Ahuja, M.S.W. 12/23/23 * Alexi Khan M.D. - 12/22/2023 3:10 PM CDT I saw and examined the patient along with the resident/EDITING CLERK-PA team and agree with the findings and recommendations in their note. I reviewed pertinent history, physical exam, labs, and imaging. Mr. Carlos Alberto Grayson is a 83 y.o. male admitted on 11/23/2023 after a fall. He suffered a TBI and pelvicfracture. He has undergone ORIF of the acetabulum. He remains medically ready for discharge. We need to continue to wean 1:1 monitoring. Awaiting placement in SNF vs home with home health. Alexi Khan MD, FACS Gun Synchronizer spinner hydraulic, [facility] Division of Trauma, Critical Care and General Surgery; Department of Surgery (Pager) (office) fax [email or web address] * Sheldon Leigh APRN C.N.P., M.S.N. - 12/22/2023 10:49 AM CDT SUBJECTIVE Mr. Grayson was seen and examined by the Trauma team in his room this morning. He reports does notreport any pain this morning upon assessment. He continues to have good PO intake with 1L charted, and has been tolerating a general diet. Per his charting, he was able to have 3 spontaneous voids charted yesterday (unmeasured) with a post void residual amount of 472 (goal being < 400mL post void). He did not exhibit any signs of agitation and was not refusing his medications. He denies any chest pain, shortness of breath, or abdominal pain. No acute events overnight, hemodynamically stable. OBJECTIVE VITAL SIGNS Blood Pressure: 148/72, Pulse Rate: 80, Resp Rate: 16, Temperature: 36.6 ??C, SpO2: 97 % I/O last 3 completed shifts: In: 1020 [P.O.:1020] Out: 940 [Urine:940] Cardiovascular Rate and Rhythm: Normal rate and regular rhythm. Pulses: Normal pulses. Heart sounds: Normal heart sounds. Pulmonary Effort: Pulmonary effort is normal. Breath sounds: Normal breath sounds. Abdominal General: Bowel sounds are normal. Palpations: Abdomen is soft. Skin General: Skin is warm and dry. Capillary Refill: Capillary refill takes less than 2 seconds. DIAGNOSTICS No results found. Lab results last 24 hours: No results found for this or any previous visit (from the past 24 hour(s)). ASSESSMENT / PLAN Daily Plan -Continue to encourage spontaneous voids with post void bladder scans (goal < 400) -Continue with encouraging PO and general diet intake -Continue with trying to wean 1:1 -Continue with ambulation, OOB, and pain control -Per family they want patient to be at home with HHC provided by the [facility] contrary to our recommendations of SNF vs Memory care unit. -Will continue to wait until [facility] can set up HHC for patient to discharge. Medically ready to leave the hospital. Mechanism of Injury: Fall from ladder (6 ft) onto left side #1 Status post Fall 6 feet from [...] Atelectasis Left anterior 6th rib fracture - No follow up needed at discharge [...] isolated distal provoked DVT. Recommended repeat US. performed on 12/18 with no noted change. No therapeutic anticoagulation necessary. DVT prophylaxis will continue due to decreased mobility. We will monitor. 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 On Ramelteon and Melatonin. Delirium prevention continuing. We will continue to monitor and await additional recommendations. He currently remains on 1:1 observation due to impulsiveness. #17 Dysphagia OT Dysphagia following. He has been cleared for Dysphagia Thin. We will continue to monitor recommendations. #18 Retention Urinary Geriatrics following. He was initiated on Flomax and Finasteride. He has continued to require I/Os.His has declined rosado placement given delirium and has elected to continue I/O. At this time,this will continue, however, as he is not completely voiding, with elevated PVR, will require continue I/O at discharge. This will be explained to or will continue if [facility] discharge. We will recommend outpatient Urology follow up PLAN New Consults Diet: Adult Diet Regular Activity: TTWB LLE VTE Prophylaxis: Enoxaparin 30mg BID GI Prophylaxis: not indicated Bowel Regimen: Miralax and Senna Pain: Tylenol and triple cream, lidoderm Antibiotics: not indicated Disposition: Home with family unknown at this time Please page trauma at [phone] with any questions regarding the care of this patient. Thanks. * Hayley Durham L.G.S.W., M.S.W. - 12/21/2023 5:14 PM CDT SUBJECTIVE Social Work collaborated with colleague regarding progress towards discharge and reviewed relevant email communications with [facility] staff. Social Work sent email to three involved [facility] staff and left voicemail for [facility] hospice social worker. Social Work left voicemail for Margie Manley, [facility] ([phone]) inquiring about status of home health assistance and catheter supplies. Social Work spoke with patient's on the telephone. Patient's reports: -Hospital Bed will be delivered by [facility] in [place] possibly by Tuesday. -Ramp will possibly be installed on Tuesday or Tuesday. -Son will support patient's in initial days of patient returning home. -Patient's niece Heather and her will support patient's for a few days after patient's son returns to [place]. -Margie, [facility] staff, left her voicemail indicating [facility] cannot provide home health aide services and the [facility] is providing home health aide support only. -Urinary catheter supplies are needed prior to discharge. OBJECTIVE Patient is medically ready for discharge and is awaiting provision of necessary DME for safe discharge. ASSESSMENT / PLAN ASSESSMENT Patient's cognitive status precludes patient from placement in care home facility. Patient's is not agreeable to placement in Memory Care facility. Patient's desires patient dischargeto home with home health care support and DME arranged by [facility]. Patient's appears experienced and competent in providing cares in the home after discharge. 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 Patient's appears to be appropriately planning for patient's discharge needs and serves as an excellent advocate for patient. Patient's is extremely proactive and collaborative with [facility] Social Work and [place] Social Work. PLAN -Social Work will contact Margie and other [facility] staff regarding DME, especially urinary catheters. -Patient's discharge disposition is home with home health care and DME provided (through [facility]) in advance. This may take 1-2 weeks (or more) for [place] to arrange. -Patient's spouse intends to provide supportive in-home care as well. -Transportation needs will be addressed closer to time of discharge. -Social Work will assist with transition planning and will offer supportive visits as necessary during remainder of patient's hospital stay. Aimee Ahuja, M.S.W. 12/21/23 * Lin De La Rosa O.T. - 12/21/2023 2:05 PM CDT Occupational Therapy Acute Hospital Inpatient Progress Note SUBJECTIVE Patient's Name: Carlos Alberto Grayson Reason for Referral: Occupational therapy eval and treat - brain consult Medical [...] Disturbance (HCC) [G30.9, F02.80] 17. Delirium [R41.0] 18. Decline Functional Status [R53.81] 19. Concern Patient Cognition Function [Z03.89] History of Present Illness: Pt is an [...] you fearful of falling?: Yes OBJECTIVE Pain: pt reporting pain but not rating with a number. Vitals:Not indicated at this time Cognition Cognitive assessment method: Therapist observations Arousal/Alertness: Appropriate responses to stimuli Attention: Impairments noted Sustained: Moderate Selective: Moderate Orientation: Disoriented to place, Disoriented to time, Disoriented to situation (unable to name town in [facility] that he is from.) Following Commands: One Step Commands One Step Commands: Follows one step commands with increased time, Follows one step commands with repetition Memory: Impairments noted Safety/Judgment Comments: supervise for safety in the hospital setting. LE Dressing LE Dressing Location: Supported sitting in bed LE Dressing Delivery: Educated LE Dressing Adaptive Equipment: Weight Inspector, Dressing stick, Sock aid, Long shoe horn LE Dressing Comments: pt was able to listen to education and principals of long tools however he was unwilling to trial this session. these are good to know about but I don't need them. ADL Comments ADL Comments: pt has been refusing Occupational therapy this week, but was willing to listen to educational information today. Patient/Family Education: long tools for lower body dressing. Ttwb precautions during self cares. At the end of today's therapy session patient was left seated in bedside chair 1:1 staff present with an appropriate call light within reach. Patient's needs and questions addressed during today's session. Assessment Pt seen in room for review of long tools for lower body dressing. Patient was agreeable to education however feeling that he does not need to long tools for use at home. Patient not able to state histoe-touch weight bear precaution for left lower extremity this session. Patient has been refusing occupational therapy this week so does show some improvement SE tolerate a short session. Patient presents as somewhat confused as he was unable to state the name of the city that he is from in [facility]. At this time patient will require significant assist with self cares and frequent verbal reminders to follow toe- touch weight-bearing restriction. Patient will benefit from ongoing occupational therapy to gain skills in safe independent self cares as he is not at his baseline level of function and performance of self cares. Barriers to Discharge Home: Current functional status, Fall risk, Safety concerns Comorbid Conditions: Cognitive/memory disorder Personal Factors: Age, Balance impairment, History of [...] device and moderate physical assistance. OT Goal #1 Status: Ongoing OT Goal #2: STG: By goal review date, pt will complete one simple grooming task from seated base with setup assistance. OT Goal #2 Status: Ongoing OT Goal #3: LTG: By discharge, pt and caregivers will demonstrate understanding of all adaptive equipment recommendations for home going in order to maximize safety and independence with ADL/IADL tasks. OT Goal #3 Status: Progressing Progress: Progressing toward goals Plan Patient agrees [...] Patient Therapeutic Interventions Home Management Training (min): 15 min Time Tracking Total Timed Units (min): 15 min Total Treatment Time (min): 23 min Lin De La Rosa O.T. * Maria Del Carmen Diaz P.T.A. - 12/21/2023 12:05 PM CDT Physical Therapy Acute Hospital Inpatient [...] Disturbance (HCC) [G30.9, F02.80] 17. Delirium [R41.0] 18. Decline Functional Status [R53.81] History of Present Illness: Pt is an [...] to return home. Patient Comments: Patient greeted up in recliner dressed and on clothing and agreeable to treatmentsession. Precautions Weight Bearing Status: TTWB LLE - difficulty maintaining this Other Precautions: Fall risk, cognition, aspiration Fall Risk (65 and older) Fall in the last 12 months: Yes Did you have an injury with the fall?: Yes Are you fearful of falling?: Yes OBJECTIVE Pain: Patient without reports of pain during treatment session. Nursing applying pain cream and lidocaine patch to patient's left knee prior to session. Vitals: Not indicated at this time Bed Mobility - Supine to Sit # of Assistants: 1 Level of Assistance: Minimal assistance Device: Bed rail, Head of bed elevated Cuing: Verbal, Tactile Comments: Patient requiring guiding of left lower extremity this date Sit to Stand Transfers # of Assistants: 1 Transfer Surface: Chair Transfer Equipment: Gait belt, Front wheeled walker Level of Assistance: Minimal assistance Assessment/Delivery: Assessed, Therapist assisted, Facilitated, Instructed Comments: Patient unable to maintain toe-touch weight-bearing. Patient's foot placed therapist footto monitor and assist with maintaining toe-touch weight-bearing. Stand to Sit Transfers # of Assistants: 1 Transfer Surface: Chair Transfer Equipment: Gait belt, Front wheeled walker Level of Assistance: Contact guard assistance, Minimal assistance Assessment/Delivery: Assessed, Therapist assisted, Facilitated, Instructed Comments: Patient able to reach back for chair 1/3 transfesr this date. He is unable follow verbal cues to bring left lower extremity forward to decreased weight-bearing through left hip joint Bed, Chair, Wheelchair Transfers # of Assistants: 1 Transfer Surface: Chair Transfer Approach: To, Ambulating Transfer Equipment: Front wheeled walker Level of Assistance: Moderate assistance Assessment/Delivery: Assessed, Instructed, Therapist assisted, Facilitated Comments: Patient with verbal cues and physical assist for toe-touch weight- bearing on left lower extremity. Patient requiring assist with steering walker for turns and backing up and aligning to chair. Gait Assessment/Training Distance (m): 2 m (x2) Surface: Even, Smooth/hard Device: Gait belt, Front-wheeled walker # of Assistants: 1 Level of Assistance: Moderate assistance Quality/Pattern: Antalgic Assessment of Gait: Patient with antalgic pattern on left due to inability to maintain weight-bearing restrictions. Attempted to progress with gait instruction today and performance to perform toe-touch weight-bearing, however patient was unable to optimally maintain, thus limited distance with gait Training/Intervention: Patient unable to maintain toe-touch weight-bearing but he is able to hop with nonweightbearing on left lower extremity with demonstration of technique. Patient able to ambulate from 1 chair to another in his room with turns to sit. Patient with increased difficulty maintaining nonweightbearing and toe-touch with turns for sitting. Response: Patient tolerated hopping well with nonweightbearing on left lower extremity versus maintaining toe-touch Seated Exercise - Side Addressed: Bilateral Sitting Surface: Chair Seated Exercise: Long arc quads, Marching, Ankle pumps, Hip abduction/adduction Sets/Repetitions: 2x10 Standing Exercise - Side Addressed: Left Standing Exercise: Marching, Hip abduction Sets/Repetitions: 2x10 Standing Exercise Comments: Patient with contact guard to Min assist for standing exercises and verbal cues for toe-touch weight-bearing with patient maintaining weight bearing for exercise Patient/Family Training: Patient spouse present and education on level assist patient requiring fortransfers and verbal and tactile cues for toe-touch weight- bearing. Education on completing transfers to right whenever possible to decrease transfer distance and standing on right leg as he has not compliant with toe-touch weight-bearing. Encourage to assist patient with transfers while she is at hospital in preparation for discharge to home with home health care. At the end of today's therapy session patient was left seated in bedside chair patient spouse present with an appropriate call light within reach. Patient's needs and questions addressed during today's session. Assessment Patient alert and orientated to self and that he is in [place]. He is able to follow directions this date for standing exercises and for ambulation with maintaining nonweightbearing to toe-touch weight-bearing with foot placed on therapist foot. He continues to have difficulty with turns and to sit to/from stand transfer with wanting to place increased weight through left lower extremity. Verbal education with on level assist for transfers and how patient is completing bed mobility with hospital bed feature with head elevated. Spouse and nursing educated on having spouse assist with transfers in preparation to discharge from home once all equipment and health care has been arranged. Patient is functional below his baseline will benefit from ongoing physical therapy for progression of strength, neuromuscular re-education safe functional mobility per plan of care. Barriers [...] level of function. PT Goal #3 Status: Slowly progressing Progress: Slow progress, cognitive deficits Plan Patient [...] Therapeutic functional activity, Neuromuscular re-education, Gait training GYRO [employer]CH[employer]IC Visit Trackin Time Spent with Patient Therapeutic Interventions Therapeutic Activity (min): 15 min Therapeutic Exercise (min): 15 min Time Tracking Total Timed Units (min): 30 min Total Treatment Time (min): 30 min Maria Del Carmen Diaz PTarikTYenny * Mani Noe, L.G.S.W., M.S.W. - 12/21/2023 10:49 AM CDT SUBJECTIVE Social Work received multiple emails from [facility] staff indicating they need specific request for ramp and details for placement of bathroom grab bars. Social Work noted in reply that there was no space to request a ramp on the form they sent and pointed out a ramp was recommended on second page of PT's note that was faxed with form. Social Work wrote that, if they need a form filled out that recommends a ramp, they need to provide us with it immediately. Next, Social Work communicated updates to a social work colleague who will be picking up Mr. Grayson's case. OBJECTIVE Mr. Carlos Alberto Grayson is an 83-year-old male patient hospitalized on FR 05C, Room 124 (for Fracture Ilium Closed Initial Left). ASSESSMENT / PLAN ASSESSMENT Patient was not assessed but continues to benefit from Social Work's coordination of care. PLAN -Patient's discharge disposition is home with home health care and DME provided (through [facility]) in advance. This may take 1-2 weeks (or more) for [facility] to arrange. -Patient's spouse intends to provide supportive in-home care as well. -Transportation needs will be addressed closer to time of discharge. -Social Work will assist with transition planning and will offer supportive visits as necessary during remainder of patient's hospital stay. Aimee Moe, M.S.W. 12/21/23 * Cata Bower O.T., O.T.D. - 12/21/2023 9:17 AM CDT Occupational Therapy Dysphagia Treatment SUBJECTIVE [...] Reason for Referral: Reason for Referral: OT Dysphagia Onset Date: 11/23/23 Payor: MEDICARE / Plan: MEDICARE A / Product Type: Medicare / History of Present Illness: History of [...] of the left acetabulum. Family/Caregiver Present: Yes ([employer]) Patient/Caregiver Goals: Pt goal to return home. Patient Comments: Patient greeted at bedside. Patient denied concerns with swallowing. Precautions Weight Bearing Status: TTWB LLE - [...] was contacted and patient's status was discussed ([employer] present for therapy session) Patient was left in bed at end of session with call light in reach, all needs met and questions answered. Additional Staff Present During Session: [employer] Assessment Time Dysphagia Assessment Completed: Clinical Impression/Recommendations: Patient seen for dysphagia treatment this date. Today's session focused on meal observation of regular diet textures to assess readiness to upgrade diet. Upon entering the room, patient noted to be drinking liquids in a recumbent position with [employer] present. Educated both patient and [employer] on importance of adherence to aspiration precautions. Patient initially declined oral intake but was agreeable with some encouragement. Assessed safety with oral intake of scrambled eggs and diced peaches resulting in no overt signs of aspiration/penetration. Patient very impulsive in which he took large consecutive bites despite cueing. Patient acknowledges he takes large bites and eats quickly but verbalized that's just how I do it. Patient declined further trials of regular textures at this time and insisted he return to supine position due to left lower extremity pain. Patient appears to be nearing baseline, therefore, it is reasonable for patient's diet be upgraded to Regular diet and Thin liquids with full supervision during meals to assist with set-up (cutting up foods in bite-sized pieces) and ensure adherence to aspiration precautions. OT Dysphagia will follow up on 12/22 to assess diet tolerance and further need for OT dysphagia services. Patient is below their functional baseline with swallowing function and skilled dysphagia services are medically necessary for this patient to safely progress oral intake. CURRENT DIET: Diet Recommendations - Solids: IDDSI Level 7 Regular Diet Recommendations - Liquids: IDDSI Level 0 Thin Recommended Form of Meds: With puree, Whole Transitional foods allowed: yes Recommendations: Dysphagia treatment Recommended Aspiration Precautions: Recommended Aspiration Precautions: Watch closely for signs of aspiration, Eat small bites, take small sips, eat slowly, Sit upright with all oral intake and when completing oral cares, Avoid lying down for 15 minutes after meals Recommended Compensation Techniques/Adaptive Equipment: Recommended Compensation Techniques/Adaptive [...] 1 visit per day OT Dysphagia Frequency: Follow-up visit only Inpatient OT Dysphagia Received On Date: 12/21/23 OT - Next Inpatient Dysphagia Appointment: 12/23/23 Plan: Continue with current plan Plan Comments: meal obs, sign off if no new concerns Re-evaluate: As clinically indicated Treatment interventions may include: Plan for Next Session: Observe a meal Time Spent with Patient Therapeutic Interventions Swallow Dysfunction Treatment (min): 8 min Time Tracking Total Treatment Time (min): 8 min For any questions feel free to page OT dysphagia Tuesday through Tuesday 7:00am to 4:00pm: Our service pager at [facility]: #[phone] Our service pager at [facility]: #[phone] * Em Wellington, LOC, C.N.P. - 12/21/2023 7:25 AM CDT Trauma Progress Note SUBJECTIVE Mr. Grayson was seen and examined this morning. I have reviewed all laboratory, vital signs, medication, recent test/procedures and documents from the past 24 hours. He is hospital day 28 admitted due to fall off of a ladder, who sustained the injuries identified below. He reports doing well this morning. No issues overnight. He mentions he is hoping to go [facility] with [facility] and his at discharge. VITAL SIGNS: Temperature: [36.4 ??C-36.6 ??C] 36.6 ??C Resp Rate: [14-17] 16 Blood Pressure: (111-136)/(51-61) 111/61 SpO2: [94 %-98 %] 98 % Pulse Rate: [69-77] 77 PHYSICAL EXAM: General: Alert, oriented x 3, Lying quietly in bed, appears to be in no apparent distress. Lungs: Currently on room air, no apparent respiratory distress. Abdomen: Soft, non-tender to palpation, non-distended Extremities: Insert extremity be short ASSESSMENT / PLAN Mechanism of Injury: Fall from ladder (6ft) [...] Atelectasis Left anterior 6th rib fracture - No follow up needed at discharge [...] isolated distal provoked DVT. Recommended repeat US. performed on 12/18 with no noted change. No therapeutic anticoagulation necessary. DVT prophylaxis will continue due to decreased mobility. We will monitor. 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 On Ramelteon and Melatonin. Delirium prevention continuing. We will continue to monitor and await additional recommendations. He currently remains on 1:1 observation due to impulsiveness. #17 Dysphagia OT Dysphagia following. He has been cleared for Dysphagia Thin. We will continue to monitor recommendations. #18 Retention Urinary Geriatrics following. He was initiated on Flomax and Finasteride. He has continued to require I/Os.His has declined rosado placement given delirium and has elected to continue I/O. At this time,this will continue, however, as he is not completely voiding, with elevated PVR, will require continue I/O at discharge. This will be explained to or will continue if [facility] discharge. We will recommend outpatient Urology follow up. #16 Overweight Body Mass Index 25-29.9 Adult Healthy dietary choices encouraged. Follow up with PCP PLAN Diet: Adult Diet Dysphagia; Thin (TN0); Soft and Bite-Sized (SB6) Activity: TTWB LLE VTE Prophylaxis: Enoxaparin 30mg BID GI Prophylaxis: not indicated Bowel Regimen: Miralax and Senna Pain: Tylenol and triple cream, lidoderm Antibiotics: not indicated Disposition: Unknown unknown at this time Trauma service continues to follow, for questions or concerns please page service pager at [phone]. * Kaycee Jimenez C.O.T.A. - 12/20/2023 3:34 PM CDT 12/20/23 1534 Reason Therapy Missed Reason Therapy Missed Patient declined therapy Patient declined OT this afternoon despite trying several techniques to engage him in various therapeutic tasks. Patient observed not following orthopedic restrictions and ambulating in room with front wheeled walker. Patient unable to follow toe touch weight bearing status due to cognitive deficits. Family not present. Patient orientated to self only. Unable to educate him on traumatic brain injury as he does not believe this to be true. Will continue to follow. * Kaycee Bolaños M.A., O.T., [facility] - 12/20/2023 2:45 PM CDT PROGRESS NOTE: Received a secure chat in [employer] from registered dietitian from patient's nutrition team. Dietitian reports that patient has been eating peanuts brought in by family and inquired if OT could liberate patient's diet to regular diet textures this date. OT dysphagia brought in a variety of foods to assess patient's tolerance and safety with Regular Diet textures. OT attempted to encourage participation in oral intake with cereal/milk (mixed texture), pretzels (crunchy) and toast (bread). Patient declined all items. Redirected patient to personal items on tray including, a bag of peanuts and a bag of cookies from his ; patient continued to decline these items as well. Each time OT talked about a food item, patient appeared interested, smiled and shook his head yes. Each time OT presented it to patient, he would sternly report, No, I don't want any, I'm not hungry. After gentle redirections and multiple attempts, OT concluded session and followed up with nurse. OT dysphagia plans to return to assess oral intake through one of the following strategies: 1.) Ordering a trial tray of Regular Diet foods to arrive during a meal time. 2.) Adding a few regular diet textures to current lunch tray. Recommend patient continue on his current diet of SB6 (soft & bite sized) + TN0 (thin liquids) with strict adherence to his aspiration precautions until oral intake can be further assessed. Non-Billable session this date= 20 minutes (02:45pm-03:05pm) Kaycee Bolaños M.A., O.T., BCP * Sheldon Leigh APRN, C.N.P., M.S.N. - 12/20/2023 12:55 PM CDT SUBJECTIVE Mr. Grayson was seen and examined by the Trauma team in his room this morning. He reports slight pain in his left knee along with his lungs. He has been refusing pain medication from nursing, but has expressed to them that he feels it is manageable. Continues to have lower percentage of meal intake, but has been tolerating the meals he does consume. His PO intake is adequate with 780cc. It appears that overnight he spontaneous unmeasured void counts, without a follow up post void residual. Still does require intermittent I/O cathing for urinary relief. Overnight he did refuse his metoprolol, but has intermittent episodes of medication refusal. He denies any chest pain, shortness of breath, or abdominal pain. He otherwise did not have any other acute events overnight, hemodynamically stable. OBJECTIVE VITAL SIGNS Blood Pressure: (!) 119/52, Pulse Rate: 76, Resp Rate: 18, Temperature: 36.6 ??C, SpO2: 96 % I/O last 3 completed shifts: In: 1020 [P.O.:1020] Out: 1050 [Urine:1050] Cardiovascular Rate and Rhythm: Normal rate and regular rhythm. Pulses: Normal pulses. Heart sounds: Normal heart sounds. Pulmonary Breath sounds: Normal breath sounds. Abdominal General: Bowel sounds are normal. Palpations: Abdomen is soft. Genitourinary Comments: Unmeasured spontaneous voids I/O cathing as needed. Skin General: Skin is warm and dry. Capillary Refill: Capillary refill takes less than 2 seconds. Neurological Mental Status: He is disoriented. Comments: Baseline DIAGNOSTICS No results found. Lab results last 24 hours: No results found for this or any previous visit (from the past 24 hour(s)). ASSESSMENT / PLAN Daily Plan -Continue with encouragement of spontaneous voiding -If patient has spontaneous voiding PLEASE obtain a post void residual (Goal < 400) -Continue I/O as needed -Continue with ambulation, PT/OT -Continue with reorientation/redirection -Appears wants patient to be at home, will discuss with her home going requirements and ensuresafety. Mechanism of Injury: Fall from ladder (6ft) [...] and Finasteride. He has continued to require I/Os.His has declined rosado placement given delirium and has elected to continue I/O. At this time,this will continue, however, as he is not [...] at this time Please page trauma at [phone] with any questions regarding the care of this patient. Thanks. Associated attestation - Alexandra Varela M.D. - 12/20/2023 2:17 PM CDT I was the supervising physician in the delivery of the service. Patient is an 83-year-old male 27 days ago fall from a ladder. Patient has a past medical history significant for dementia. Patient has recovered well from all traumatic injuries. Today during my visit he was sitting in the chair comfortable. With his home clothes on as he requests every day. Patient reports feeling comfortable without any respiratory distress. Patient is refusing any pain medications but tolerating a diet and having daily bowel movements. Patient needs daily urinary catheterization for urinary retention event though it has slightly improved during the last days with Flomax. Family agrees with care home facility, social work actively looking for placement. Patient medically ready for discharge. * Maria Del Carmen Diaz P.T.A. - 12/20/2023 12:34 PM CDT Physical Therapy Acute Hospital Inpatient [...] Disturbance (HCC) [G30.9, F02.80] 17. Delirium [R41.0] 18. Decline Functional Status [R53.81] History of Present Illness: Pt is an [...] greeted at bedside and agreeable to treatment session. Precautions Weight Bearing Status: TTWB LLE - difficulty maintaining this Other Precautions: Fall risk, cognition, aspiration Fall Risk (65 and older) Fall in the last 12 months: Yes Did you have an injury with the fall?: Yes Are you fearful of falling?: Yes OBJECTIVE Pain: Patient with slight grimace with initially moving left lower extremity during bed mobility. No further reports of pain or pain behaviors. Vitals: Not indicated at this time Bed Mobility - Supine to Sit # of Assistants: 1 Level of Assistance: Minimal assistance Device: Bed rail, Head of bed elevated Cuing: Verbal, Tactile Comments: Patient requiring guiding of left lower extremity this date Sit to Stand Transfers # of Assistants: 1 Transfer Surface: Bed, Chair Transfer Equipment: Gait belt, Front wheeled walker Level of Assistance: Minimal assistance Assessment/Delivery: Assessed, Therapist assisted, Facilitated, Instructed Comments: Patient unable to maintain toe-touch weight-bearing. Patient's foot placed therapist footto monitor and assist with maintaining toe-touch weight-bearing. Stand to Sit Transfers # of Assistants: 1 Transfer Surface: Chair Transfer Equipment: Gait belt, Front wheeled walker Level of Assistance: Contact guard assistance Assessment/Delivery: Assessed, Therapist assisted, Facilitated, Instructed Comments: Patient able to reach back for chair but unable follow verbal cues to bring left lower extremity forward to decreased weight-bearing through left hip joint Bed, Chair, Wheelchair Transfers # of Assistants: 1 Transfer Surface: Chair Transfer Approach: To Transfer Equipment: Front wheeled walker Level of Assistance: Minimal assistance Assessment/Delivery: Assessed, Instructed, Therapist assisted, Facilitated Comments: Transfer completed to patient's right and patient's left foot placed on top of therapist foot to assist with maintaining toe-touch weight-bearing. Patient will lift foot off of therapist's foot and place on floor with full weight-bearing. Gait Assessment/Training Distance (m): 2 m (x2) Surface: Even, Smooth/hard Device: Gait belt, Front-wheeled walker # of Assistants: 1 Level of Assistance: Moderate assistance Quality/Pattern: Antalgic Assessment of Gait: Patient with antalgic pattern on left due to inability to maintain weight-bearing restrictions. Attempted to progress with gait instruction today and performance to perform toe-touch weight-bearing, however patient was unable to optimally maintain, thus limited distance with gait Training/Intervention: Patient unable to maintain toe-touch weight-bearing but he is able to hop with nonweightbearing on left lower extremity with demonstration of technique. Patient able to ambulate from 1 chair to another in his room with turns to sit. Patient with increased difficulty maintaining nonweightbearing and toe-touch with turns for sitting. Response: Patient tolerated hopping well with nonweightbearing on left lower extremity versus maintaining toe-touch Seated Exercise - Side Addressed: Bilateral Sitting Surface: Chair Seated Exercise: Long arc quads, Marching, Ankle pumps Sets/Repetitions: 2x10 Standing Exercise - Side Addressed: Left Standing Exercise: Marching Standing Exercise Comments: 2x10 Patient/Family Training: Ongoing education on toe-touch weight-bearing which patient is unable to maintain without physical assist. At the end of today's therapy session patient was left seated in bedside chair 1:1 staff present with an appropriate call light within reach. Patient's needs and questions addressed during today's session. Assessment Patient with improved ability to follow directions this date and is able to complete ambulation with left foot on top of therapist foot and hopping to maintain toe-touch weight-bearing. Patient able to complete standing exercises this date with left lower extremity. Patient does not have any reports of pain with standing or seated activities. Patient is functioning below his baseline will benefitfrom ongoing physical therapy progressing as he can towards plan of care. Barriers to a safe [...] level of function. PT Goal #3 Status: Slowly progressing Progress: Slow progress, cognitive deficits Plan Patient [...] Therapeutic functional activity, Neuromuscular re-education, Gait training GYRO MECHANIC Visit Trackin (GYRO MECHANIC 6th visit observation completed this date with Raegan Blue PT) Time Spent with Patient Therapeutic Interventions Therapeutic Activity (min): 15 min Therapeutic Exercise (min): 12 min Time Tracking Total Timed Units (min): 27 min Total Treatment Time (min): 27 min Tian MagallanesTYenny Associated attestation - Raegan Drew P.T., D.P.T. - 12/20/2023 3:40 PM CDT This therapist has reviewed all documentation and supervised today's session. This therapist agreeswith the plan of care developed in collaboration with the patient. * Loretta Rodriguez - 12/20/2023 12:10 PM CDT Clinical Nutrition: Reassessment RECOMMENDATIONS REQUIRING MD/PROVIDER ORDER When ready to advance, order regular easy to chew diet. For questions about patient's nutritional care please contact pager [phone] on weekdays or [phone] on weekends/holidays. NUTRITION ASSESSMENT: Mr. Grayson is a 83 y.o. male who was admitted for Fracture Ilium Closed Initial Left (HCC) Patient Active Problem List Diagnosis History Of Falling Subarachnoid Hemorrhage Without Loss Of Conscious Initial (HCC) Contusion Scalp Initial Fracture Rib Single Closed Initial Left Anemia Posthemorrhagic Acute (Blood Loss Anemia) Fracture Acetabulum Other Closed Initial Left (HCC) Fracture Pelvis Multiple Closed With Stable Disruption Pelvis Ring Initial (HCC) Fracture Ilium Closed Initial Left (HCC) Fracture Acetabulum Closed Initial Left (HCC) Encephalopathy Metabolic 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) Decline Cognitive Delirium Acute Overweight Body Mass Index 25-29.9 Adult Atelectasis Effusion Pleural Thrombosis Deep Vein Lower Extremity Left (HCC) Dysphagia Retention Urinary Injury Blood Vessel Abdomen Lower Back Pelvis Initial Requested to see patient for evaluation of: assessment of nutritional status and oral intake encouragement. Current Diet Order: Adult Diet Dysphagia; Thin (TN0); Soft and Bite-Sized (SB6) Current Nutrition (since admission): Mr. Grayson was with his RN upon arrival. He reports his appetite is fair, Nutrition intake displays he has been consuming 25% of his meals and will occasionallydrink his supplements. Pt had a bag of peanuts that his had brought in. His nurse noted he wasable to eat peanuts with no problem. Reached out to RD for see if it would be possible to change his diet order. Computer Laboratory Technician was informed OT was planning to trail regular textures. Nutrition will continueto follow. Nutrition history: Pt spouse notes that he typically eats well. He does not follow any special kindof diet. He likes anything strawberry and banana. He loves sweets especially cookies. Nutrition education/counseling: RDN encouraged protein for healing. Food Allergies: None. ANTHROPOMETRICS: Height: 180.3 cm Admission Weight: 86.3 kg (11/23/2023) Current Weight: 93.4 kg BMI (Calculated): 28.7 kg/m?? Weight change since admission: 7.1 kg ESTIMATED NEEDS: Total Calorie Needs: 8507-0715 calories/day Method to Estimate Energy Needs: kcal/kg ( ) Weight Used for Equation Calculations: 86.3 kg Total Protein Needs: 85 - 102 grams/day Method to Estimate Protein Needs (g/kg): 1 - 1.2 gm/kg Weight Used to Calculate Protein Needs (Kg): 85 kg Nutrition Diagnosis: Swallowing difficulty related to fall and confusion as evidenced by need for dysphagia diet Nutrition Diagnosis Reassessment: Ongoing (improving) Nutrition Intervention: Medical food supplement, Increase nutrient intake with small, frequent meals and/or snacks, Vitaminand mineral supplements Monitoring/Evaluation: Nutrition parameter to monitor: Meals/Supplement Intake, Diet Progression/NPO Status, Skin Integrity, Pertinent Labs, Nausea/Vomiting/Diarrhea, Chewing/Swallowing * Mani Noe L.G.S.W., M.S.W. - 12/20/2023 11:22 AM CDT SUBJECTIVE Social Work engaged in record review and communicated with interdisciplinary team prior to calling patient's spouse (Joseline, , mobile / [phone], home) to discuss discharge plans. Joseline is adamant about wanting to care for Mr. Grayson in their home, with support from home health care ([facility]) agency. These are details from that conversation: Joseline indicated that she has been working very hard to support the current discharge plan; for example, she had just called Clara and left message (BRANDY Elizabeth at [facility], ; ). She also spoke with someone named Edmar, who can access [facility] files andcan help provide funding for items/needs that [facility] can't fund. As soon as [facility] sends hospital bed and ramp (to be installed), she feels patient can go home safely. Joseline has already received some supplies from the [facility], but not the aforementioned bed or ramp. She infers from supplies received that the [facility] has the necessary supply list (faxed by Social Work to [facility] yesterday). She is aware that patient transfers with assistance of 1, and she is confident he'll do fine at home. She said he will receive good care there, and she reported that she is 10 years younger than Mr. Grayson. 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 She is eager for this plan to come together and frustrated that it has taken so long. (Social Work validated these feelings and expressed that coordinating DME and services with the [facility] often does take a considerable amount of time.) She said [facility] (contracted through [facility]) is their preferred agency, and they have agreedto take the case (even the nurse that Joseline prefers). She would like regular updates from service (e.g., about blood clot in patient's left leg). Ms. Grayson reported no needs or questions at conversation's end and thanked Social Work for calling and for support. Social Work wished her a good rest of the day. Addendum (4:15 p.m.): Later in the day, Social Work responded to 3 emails from 3 different staff persons at [facility]. One had indicated that the form sent by Social Work on 12/19/2023 had not been received. A second had indicated that the form had not been received. A third had referenced a ashraf detail from the form, for they wondered where in the bathroom the grab bars are to be placed. (It is clear that the [facility] has the necessary information.) Social Work encouraged them to share the form and to contact patient's spouse toask such a question. The 3 staff persons are these: BRANDY Sandoval at [facility], ; KAMINI CarrionT, OCS [address]patient [address] Deputy Clerk Referral Coordination PT Machine Operator Packaging [facility] OBJECTIVE Mr. Carlos Alberto Grayson is an 83-year-old male patient hospitalized on FR 05C, Room 124 (for Fracture Ilium Closed Initial Left). ASSESSMENT / PLAN ASSESSMENT Patient was not assessed but continues to benefit from Social Work's coordination of care. PLAN -Patient's discharge disposition is home with home health care and DME provided (through [facility]) in advance. This may take 1-2 weeks (or more) for [facility] to arrange. -Patient's spouse intends to provide supportive in-home care as well. -Transportation needs will be addressed closer to time of discharge. -Social Work will assist with transition planning and will offer supportive visits as necessary during remainder of patient's hospital stay. Aimee Moe M.SPeggy. 12/20/23 * Kaycee Jimenez C.O.TeYnny - 12/19/2023 3:56 PM CDT 12/19/23 1556 Reason Therapy Missed Reason Therapy Missed Patient declined therapy Patient refused OT this afternoon and became agitated when therapist attempted to provide educationon benefits of OT. Will try to coordinate an OT session when patients is present. * Mani Noe L.G.S.W. M.S.Josephine. - 12/19/2023 2:49 PM CDT SUBJECTIVE Social Work engaged in record review and communicated with interdisciplinary team regarding patient's discharge-related needs. Social Work called [facility] staff (BRANDY Elizabeth at [facility], ; ) to confirm receipt of completed form that was emailed (as attachment) on 12/16/2023. Clara said she could see the email but not the attachment (which is visible in Social Work's SentItems folder). Social Work asked Health Vac Press Operator staff to fax Community Therapist Durable Medical Equipment Request Form to PT staff at [facility] ([place], Therapy Department, FAX: [phone]). Clara expressed her intent to email Social Work when form has been received by PT staff at [facility]. OBJECTIVE Mr. Carlos Alberto Grayson is an 83-year-old male patient hospitalized on FR 05C, Room 124 (for Fracture Ilium Closed Initial Left). ASSESSMENT / PLAN ASSESSMENT Patient was not assessed but continues to benefit from Social Work's coordination of care. PLAN -Patient's discharge disposition is home with home health care and DME provided (through [facility]) in advance. This may take 1-2 weeks (or more) for [facility] to arrange. It has been reported that patient's spouse intends to provide supportive in-home care as well. -SNF referrals are pending, but patient's continued 1:1 observation status will continue to be a barrier to placement. -Transportation needs will be addressed closer to time of discharge. -Social Work will assist with transition planning and will offer supportive visits as necessary during remainder of patient's hospital stay. Aimee Moe, M.S.W. 12/19/23 * Janice Crawford P.A.-C. - 12/19/2023 7:41 AM CDT SUBJECTIVE Mr. Grayson is sitting upright in the chair this morning upon my arrival. He is alert to person and place currently but continues with mild confusion. He also remains with 1:1. He denies any complaints. He denies any chest pain or shortness of breath. He denies any extremity pain. He has been voiding small amounts, however, continues to require I/O cath. He notes no other issues or complaints this AM. OBJECTIVE VITAL SIGNS Blood Pressure: 114/55, Pulse Rate: 69, Resp Rate: 16, Temperature: 37.3 ??C, SpO2: 94 % I/O last 3 completed shifts: In: 600 [P.O.:600] Out: 750 [Urine:750] Physical Exam GEN:Alert and Sitting comfortably in the chair in no acute distress NEURO: GCS 14 PULM: Clear to Auscultation Bilaterally, No Rhonchi, Rales or Wheezes , and Chest Wall Nontender toPalpation, No Palpable Crepitus or Deformity ABD:Soft, Nontender, Nondistended ASSESSMENT / PLAN #1 Status post Fall 6 feet from [...] on last check at 10.4. We will follow with repeat labs in AM. #12 Thrombosis Deep Vein Lower Extremity Left (HCC) Left Soleal DVT Vascular Medicine consulted. Noted with isolated distal provoked DVT. Recommended repeat US. This was performed today with no noted change. No therapeutic anticoagulation necessary. DVT prophylaxis will continue due to decreased mobility. We will monitor. #13 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 ([facility]) #14 Decline Cognitive #15 Encephalopathy Metabolic #16 Delirium Acute Geriatrics following. On Ramelteon and Melatonin. Delirium prevention continuing. We will continue to monitor and await additional recommendations. #17 Dysphagia OT Dysphagia following. He has been cleared for Dysphagia Thin. We will continue to monitor recommendations. #18 Retention Urinary Geriatrics following. He was initiated on Flomax and Finasteride. He has continued to require I/Os.His has declined rosado placement given delirium and has elected to continue I/O. At this time,this will continue, however, as he is not completely voiding, with elevated PVR, will require continue I/O at discharge. This will be explained to or will continue if SCF discharge. We will recommend outpatient Urology follow up. #16 Overweight Body Mass Index 25-29.9 Adult Healthy dietary choices encouraged. Follow up with PCP. PLAN New Consults OTS-1, Vascular Medicine, Neurosurgery Chief C, Geriatrics Diet: Adult Diet Dysphagia; Thin (TN0); Soft and Bite-Sized (SB6) Activity: TDWB LLE VTE Prophylaxis: Enoxaparin 30mg BID GI Prophylaxis: not indicated Bowel Regimen: Miralax and Senna Pain: Tylenol, Triple Cream, Lidoderm Antibiotics: None Disposition: Probable for SCF; Will engage SW to explore placement options * Sheldon Leigh APRN, C.N.P., M.S.N. - 12/18/2023 1:03 PM CDT SUBJECTIVE Mr. Grayson was seen and examined by the Trauma team in his room this morning. He reports no pain this morning. He had a relatively uneventful night, with some minor episodes of confusion and restless sleeping. He continues to have PO intake, but requires encouragement for better intake throughoutthe day, he had 600 charted yesterday. Tolerates a general diet, but eats small amounts of meals throughout the day, again requiring reminding. Urine output was better yesterday with 1L compared to prior days, although it appears most of his urine is from straigh cathing and not spontaneous voiding. He was taking his oral medications, and there was little agitation throughout the day and night. He currently denies any chest pain, shortness of breath, or abdominal pain. No acute events overnight, hemodynamically stable. OBJECTIVE VITAL SIGNS Weight: 93.4 kg, BMI (Calculated): 28.7 kg/m??, Blood Pressure: (!) 116/54, Pulse Rate: 66, Resp Rate: 17, Temperature: 36.2 ??C, SpO2: 95 % I/O last 3 completed shifts: In: 1200 [P.O.:1200] Out: 1000 [Urine:1000] Cardiovascular Rate and Rhythm: Normal rate and regular rhythm. Pulses: Normal pulses. Heart sounds: Normal heart sounds. Pulmonary Effort: Pulmonary effort is normal. Breath sounds: Normal breath sounds. Abdominal General: Bowel sounds are normal. Palpations: Abdomen is soft. Genitourinary Comments: Urine retention requiring straight cath Skin General: Skin is warm and dry. Capillary Refill: Capillary refill takes less than 2 seconds. Neurological Mental Status: He is disoriented. Comments: Baseline with Alzheimer dementia Psychiatric Comments: Mood and behavior have been appropriate today DIAGNOSTICS No results found. Lab results last 24 hours: No results found for this or any previous visit (from the past 24 hour(s)). ASSESSMENT / PLAN Daily Plan -Continue to offer urinal and encourage spontaneous voiding. -Continue with bladder scans and post void residuals < 400cc -If continues to struggle will re discuss with his and reinserting a rosado catheter -Continue with OOB, ambulation, and pulmonary hygiene -DVT ultrasound on 12/18 -Pending results determine anticoagulation plans -Continue to encourage food and po intake throughout the day -Continue with delirium preventions and help with reorientation. Mechanism of Injury: Fall from ladder (6ft) -TTS completed 11/23 -SAS completed 11/24 #1 History Of Falling -PMR PT/Ot consulted -Requiring 1:1 monitoring for impulsiveness r/t TBI and Alzheimer history. #2 Subarachnoid Hematoma Trauma Without Loss Of Consciousness Subsequent #3 Contusion Scalp Initial -Large left frontal scalp hematoma -Small cortical hemorrhage vs focal subarachnoid hemorrhage (left frontal lobe -Neurosurgery Chief C consulted -Repeat HCT (11/23) showed slight increase in IVH in the occipital horn of the lateral ventricle -Serial HCTs obtained -HCT (12/11) showed: resolution of previously noted dependent IVH, no acute findings. -Initiated DVT chemoprophylaxis on 11/29 - Lovenox 30mg BID. Of note when chemoprophylaxis was started he was noted to have increased confusion, but his HCT was stable, thus chemoprophylaxis was continued. -Will require 1 month follow up in NS clinic with head CT prior, already scheduled. 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 #5 Thrombosis Deep Vein Lower Extremity Left (HCC) -Acute soleal vein DVT; left leg - Currently [...] no proximal extension, no need for therapeutic anticoagulation #6 Fracture Rib Single Closed Initial Left #7 Atelectasis #8 Effusion Pleural -Nondisplaced, left 6th rib fracture - Rib fracture protocol completed -difficult to follow secondary to cognition - Continue with encouraging pulmonary hygiene as able (IS/deep breathing/coughing/CPAP) - No follow up required in the LP clinic for single rib fracture #9 Fracture Acetabulum Other Closed Initial Left ([facility]) #10 Fracture Pelvis Multiple Closed With Stable Disruption Pelvis Ring Initial ([facility]) #11 Fracture Ilium Closed Initial Left ([facility]) -Multiple comminuted fractures of the left anterior & posterior pubic rami, acetabulum & iliac wing extending into the left SI joint w/ hemorrhage noted in the left retroperitoneum - OTS- 1 consulted - OR (11/24): ORIF of the left associated both column acetabular fracture (Dr. Higuera) - TTWB LLE -inna used to close wounds on 11/25/2023. -OTS-1 will removed inna on 12/16/2023. - PMR PT/OT consulted; due to cognition does not fully understand weight bearing restrictions and a2 assist currently - two falls with assistance to ground slowly without heavy strike to ground over past few days secondary to trying to get up on his own impulsively - has one to one sitter at bedside - Pelvis x-rays obtained (12/03): surgical hardware intact - Davol drain and vac removed 12/04 - Patient non-compliant with TTWB restrictions, continue to encourage compliance. - Discharge OTS f/u, they will arrange the appointments #12 Anemia Posthemorrhagic Acute (Blood Loss Anemia) #13 Postprocedural Hemorrhagic Shock Initial, resolved -Check CBC if clinically indicated -Continues to show no signs of active bleeding. 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) #15 Encephalopathy Metabolic #16 Delirium #17 Decline Cognitive - Geriatric Medicine consulted; following -Note on 12/10/23 with suggestions -8 mg Ramelteon daily and 5 mg melatonin prn ordered - Continuing with delirium prevention and sleep enhancement as able -One dose of IV Zyprexa required during daytime due to agitation and physical behavior #18 Dysphagia - OT Dysphagia consulted - Currently on a IDDSI Level 6 Soft & Bite sized with thin liquids - Aspiration precautions & medications with purees -as of 12/11 patient takes very large bites/multiple bites prior to swallowing, recommending supervision with meals. Continue to assess for diet advancement #19 Retention Urinary -He was started on Flomax and Finasteride during this admission and were recently increased to 0.8mg -Continues on a 4 hour voiding trial and bladder scanning -Goal for post void residual < 400 -Continue to offer urinal throughout the day. Straight cath as needed if unable to spontaneously void. -Arrange for outpatient urology appointment regarding urine retention -Can discuss with possibility of trialing rosado catheter insertion again. #20 Overweight Body Mass Index 25-29.9 Adult -BMI 28.73 -Continue with PCP for outpatient recommendations. PLAN New Consults Diet: Adult Diet Dysphagia; Thin (TN0); Soft and Bite-Sized (SB6) Activity: TTWB LLE VTE Prophylaxis: Enoxaparin 30mg BID GI Prophylaxis: not indicated Bowel Regimen: Dulcolax, Milk of Mag, and Senokot S Pain: Tylenol Antibiotics: Not indicated Disposition: Unknown unknown at this time Please page trauma at [phone] with any questions regarding the care of this patient. Thanks. * Sheldon Leigh APRN, C.N.P., M.S.N. - 12/17/2023 1:23 PM CDT SUBJECTIVE Mr. Grayson was seen and examined by the Trauma team in his room this morning. He reports no pain this morning. He had relatively good PO intake yesterday with 954cc charted. Continues to struggle with urinary retention and required straight cathing x1 overnight due to the inability to spontaneously void. Urine output with his straight cath was 575cc, he is approximately negative 6.9L since admission. Given his history with TBI and Alzheimer overnight was refusing medications, and po intake, was ultimately redirected and able to take his night time meds, intermittent agitation. He denies anychest pain, shortness of breath, or abdominal pain at this time. No acute events overnight, hemodyna mically stable. OBJECTIVE VITAL SIGNS Weight: 93.4 kg, BMI (Calculated): 28.7 kg/m??, Blood Pressure: 122/63, Pulse Rate: 75, Resp Rate: 16, Temperature: 36.6 ??C, SpO2: 95 % I/O last 3 completed shifts: In: 1074 [P.O.:1074] Out: 975 [Urine:975] Cardiovascular Rate and Rhythm: Normal rate and regular rhythm. Pulses: Normal pulses. Heart sounds: Normal heart sounds. Pulmonary Effort: Pulmonary effort is normal. Breath sounds: Normal breath sounds. Abdominal General: Bowel sounds are normal. Palpations: Abdomen is soft. Genitourinary Comments: Urinary retention, requiring straight cathing. Skin General: Skin is warm and dry. Capillary Refill: Capillary refill takes less than 2 seconds. Neurological Mental Status: He is disoriented. Comments: Baseline DIAGNOSTICS No results found. Lab results last 24 hours: No results found for this or any previous visit (from the past 24 hour(s)). ASSESSMENT / PLAN Daily Plan -Continue to encourage urinal use, monitor POST void residual (goal < 400cc) -Continue with 1:1 r/t impulsiveness -Continue with delirium precautions, reorientation, and sleep hygiene -Continue with disposition planning. Mechanism of Injury: Fall from ladder (6ft) -TTS completed 11/23 -SAS completed 11/24 #1 History Of Falling -PMR PT/Ot consulted -Requiring 1:1 monitoring for impulsiveness r/t TBI and Alzheimer history. #2 Subarachnoid Hematoma Trauma Without Loss Of Consciousness Subsequent #3 Contusion Scalp Initial -Large left frontal scalp hematoma -Small cortical hemorrhage vs focal subarachnoid hemorrhage (left frontal lobe -Neurosurgery Chief C consulted -Repeat HCT (11/23) showed slight increase in IVH in the occipital horn of the lateral ventricle -Serial HCTs obtained -HCT (12/11) showed: resolution of previously noted dependent IVH, no acute findings. -Initiated DVT chemoprophylaxis on 11/29 - Lovenox 30mg BID. Of note when chemoprophylaxis was started he was noted to have increased confusion, but his HCT was stable, thus chemoprophylaxis was continued. -Will require 1 month follow up in NS clinic with head CT prior, already scheduled. 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 #5 Thrombosis Deep Vein Lower Extremity Left (HCC) -Acute soleal vein DVT; left leg - Currently [...] no proximal extension, no need for therapeutic anticoagulation #6 Fracture Rib Single Closed Initial Left #7 Atelectasis #8 Effusion Pleural -Nondisplaced, left 6th rib fracture - Rib fracture protocol completed -difficult to follow secondary to cognition - Continue with encouraging pulmonary hygiene as able (IS/deep breathing/coughing/CPAP) - No follow up required in the LP clinic for the one rib fracture #9 Fracture Acetabulum Other Closed Initial Left ([facility]) #10 Fracture Pelvis Multiple Closed With Stable Disruption Pelvis Ring Initial ([facility]) #11 Fracture Ilium Closed Initial Left ([facility]) -Multiple comminuted fractures of the left anterior & posterior pubic rami, acetabulum & iliac wing extending into the left SI joint w/ hemorrhage noted in the left retroperitoneum - OTS- 1 consulted - OR (11/24): ORIF of the left associated both column acetabular fracture (Dr. Higuera) - TTWB LLE -inna used to close wounds on 11/25/2023. -OTS-1 will removed inna on 12/16/2023. - PMR PT/OT consulted; due to cognition does not fully understand weight bearing restrictions and a2 assist currently - two falls with assistance to ground slowly without heavy strike to ground over past few days secondary to trying to get up on his own impulsively - has one to one sitter at bedside - Pelvis x-rays obtained (12/03): surgical hardware intact - Davol drain and vac removed 12/04 - Patient non-compliant with TTWB restrictions, continue to encourage compliance. - Discharge OTS f/u, they will arrange the appointments #12 Anemia Posthemorrhagic Acute (Blood Loss Anemia) #13 Postprocedural Hemorrhagic Shock Initial, resolved -Check CBC if clinically indicated -Continues to show no signs of active bleeding. 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) #15 Encephalopathy Metabolic #16 Delirium #17 Decline Cognitive - Geriatric Medicine consulted; following -Note on 12/10/23 with suggestions -8 mg Ramelteon daily and 5 mg melatonin prn ordered - Continuing with delirium prevention and sleep enhancement as able -One dose of IV Zyprexa required during daytime due to agitation and physical behavior #18 Dysphagia - OT Dysphagia consulted - Currently on a IDDSI Level 6 Soft & Bite sized with thin liquids - Aspiration precautions & medications with purees -as of 12/11 patient takes very large bites/multiple bites prior to swallowing, recommending supervision with meals. Continue to assess for diet advancement #19 Retention Urinary -He was started on Flomax and Finasteride during this admission and were recently increased to 0.8mg -Continues on a 4 hour voiding trial and bladder scanning -Goal for post void residual < 400 -Continue to offer urinal throughout the day. Straight cath as needed if unable to spontaneously void. #20 Overweight Body Mass Index 25-29.9 Adult -BMI 28.73 -Continue with PCP for outpatient recommendations. PLAN New Consults Diet: Adult Diet Dysphagia; Thin (TN0); Soft and Bite-Sized (SB6) Activity: LLE TTWB VTE Prophylaxis: Enoxaparin 30mg BID GI Prophylaxis: not indicated Bowel Regimen: Dulcolax, Milk of Mag, and Senokot S Pain: Tylenol Antibiotics: Not indicated Disposition: Unknown unknown at this time Please page trauma at [phone] with any questions regarding the care of this patient. Thanks. * Mickey Benton M.D. - 12/16/2023 4:59 PM CDT Orthopedic Service: OTS-1 Hospital Admission Day: 11/23/2023 Length of Stay: 23 Procedures: Surgery Information This Encounter Past Procedures (12/01/2022 to Today) Date Procedures Providers Loc / Dept 11/25/2023 OPEN REDUCTION INTERNAL FIXATION ACETABULUM. Naveed Higuera M.D.Markos, James R, M.D.Labott, Joshua R, M.D.Hidden, Krystin A, M.D. RST ROMB OR SUBJECTIVE Mr. Grayson was seen and examined in his floor care room. He was resting in bed. He is in no pain and was conversant. He was amenable to staple removal. OBJECTIVE VITALS Temperature: [36.5 ??C-36.6 ??C] 36.5 ??C Resp Rate: [15-16] 15 Blood Pressure: (126-133)/(58-65) 132/58 SpO2: [90 %-97 %] 90 % Pulse Rate: [67-80] 80 I/O last 3 completed shifts: In: 1702 [P.O.:1702] Out: 1375 [Urine:1375] PHYSICAL EXAM General: follows commands Cardiac: Hemodynamically stable. Lungs: Non-labored respirations on room air, satting well. Left Lower Extremity: Surgical incisions CDI and healing appropriately without erythema or drainage. Inna removed. Calf soft and non-tender. Neurovascularly intact with palpable pulses, brisk cap refill. Sensation intact grossly to light touch throughout dermatomes. Fires tib ant, gastroc, ehl, fhl. Drain: removed LABS No results found for [...] Stoppa approach I have removed the patient's inna from his surgical incisions which are healing appropriately. He will have outpatient orthopedic follow up arranged. He is doing well at this time. --Activity: TTWB LLE. PT/OT to follow. --Antibiotics: Perioperative cefazolin x2 doses completed. --Blood: Hemodynamics have been relatively stable. --Brace: none --Cultures/Path: None. --Diet: Per primary service. --Drains: removed --Dressing: incisions healing appropriately, inna removed 12/15 --VTE Prophylaxis: Mechanical prophylaxis with SCDs, early [...] please contact the Orthopedic Surgery house resident azure principal solution specialist at [phone] * Ailyn Reeder M.S., O.T., RADHA - 12/16/2023 3:25 PM CDT 12/16/23 1525 Reason Therapy Missed Reason Therapy Missed No visit this date Attempted to see patient in PM. Patient perseverating on calling his , however, phone currentlydisabled. Patient politely declined OT on this date. OT will continue to follow and progress plan of care as able. Electronically signed by: Ailyn Reeder M.S., O.T., RADHA 12/16/23 3:26 PM CDT * SunshinemaryMaria Del Carmen P.T.A. - 12/16/2023 3:17 PM CDT Physical Therapy Acute Hospital Inpatient [...] Disturbance (HCC) [G30.9, F02.80] 17. Delirium [R41.0] 18. Decline Functional Status [R53.81] History of Present Illness: Pt is an [...] home. Patient Comments: Patient greeted at bedside requesting to go home and and also called his . Patient agreeable to transfer out of bed to chair. Precautions Weight Bearing Status: TTWB LLE - difficulty maintaining this Other Precautions: Fall risk, cognition, aspiration Fall Risk (65 and older) Fall in the last 12 months: Yes Did you have an injury with the fall?: Yes Are you fearful of falling?: Yes OBJECTIVE Pain: No reports of pain with bed mobility this date or pain behaviors for aggressive treatment session. Vitals: Not indicated at this time Bed Mobility - Supine to Sit # of Assistants: 1 Level of Assistance: Supervision/Set-up Device: Bed rail, Head of bed elevated Cuing: Verbal, Tactile Comments: Patient transitioning to edge bed with standby assist this date for safety. Sit to Stand Transfers # of Assistants: 1 Transfer Surface: Bed Transfer Equipment: Gait belt, Front wheeled walker Level of Assistance: Minimal assistance Assessment/Delivery: Assessed, Therapist assisted, Facilitated, Instructed Comments: Patient unable to maintain toe-touch weight-bearing this date or to redirect for toe-touch weight-bearing. Stand to Sit Transfers # of Assistants: 1 Transfer Surface: Chair Transfer Equipment: Gait belt, Front wheeled walker Level of Assistance: Contact guard assistance Assessment/Delivery: Assessed, Therapist assisted, Facilitated, Instructed Comments: Patient able to reach back for chair but unable follow verbal cues or redirect to bring left lower extremity forward to decreased weight-bearing through left hip joint Bed, Chair, Wheelchair Transfers # of Assistants: 1 Transfer Surface: Chair Transfer Approach: To Transfer Equipment: Front wheeled walker Level of Assistance: Minimal assistance Assessment/Delivery: Assessed, Instructed, Therapist assisted, Facilitated Comments: Patient unable to maintain toe-touch weight-bearing this date are redirect for nonweightbearing for transition over to chair. Seated Exercise - Side Addressed: Bilateral Sitting Surface: Chair Seated Exercise: Long arc quads Seated Exercise Comments: Unable to further direct to complete other seated exercises this date. Patient/Family Training: Ongoing education on toe-touch weight-bearing left lower extremity to protect hip joint. Patient unable to redirect for toe-touch weight-bearing this date. At the end of today's therapy session patient was left seated in bedside chair 1:1 staff present with an appropriate call light within reach. Patient's needs and questions addressed during today's session. Assessment Patient perseverating throughout treatment session on leaving hospital and contacting his . Attempt to redirect patient that and hospice social worker working on discharge planning and patient unable to redirect from wanting to call his . [employer] reports that patient has called several times today for did said he is talked to her. Unable to redirect for exercises, further transfers with toe-touch weight-bearing. Informed nursing patient's ongoing request to curl regarding discharge plans. Patient is functional below his baseline benefit from ongoing physical therapy to progress strength, neuromuscular re-education safe functional ability as he is able per plan of care. Barriers to a [...] level of function. PT Goal #3 Status: Slowly progressing Progress: Slow progress, cognitive deficits Plan Patient [...] Therapeutic functional activity, Neuromuscular re-education, Gait training GYRO MECHANIC Visit Trackin Time Spent with Patient Therapeutic Interventions Therapeutic Activity (min): 18 min Time Tracking Total Timed Units (min): 18 min Total Treatment Time (min): 18 min Maria Del Carmen Diaz P.T.A. * Garland Meyer P.A.-C. - 12/16/2023 12:54 PM CDT SUBJECTIVE Mr. Grayson was seen and examined by the Trauma team in his room this morning. Remains with 1 monitor. No acute overnight events reported. Patient remains afebrile and hemodynamically stable. He hasno concerns were acute complaints upon interview this morning. OBJECTIVE VITAL SIGNS Blood Pressure: 126/61, Pulse Rate: 71, Resp Rate: 16, Temperature: 36.6 ??C, SpO2: 96 % I/O last 3 completed shifts: In: 1702 [P.O.:1702] Out: 1375 [Urine:1375] Constitutional General: He is not in acute distress. Appearance: Normal appearance. Pulmonary Effort: Pulmonary effort is normal. No respiratory distress. Breath sounds: Normal breath sounds. Abdominal General: Bowel sounds are normal. There is no distension. Palpations: Abdomen is soft. Tenderness: There is no abdominal tenderness. There is no guarding. Musculoskeletal Right lower leg: No edema. Left lower leg: No edema. Skin General: Skin is warm and dry. ASSESSMENT / PLAN Today: -continue observation -dysphagia team to assess for regular diet -social work assisting with placement. Medically ready -ultrasound Tuesday to assess soleal DVT if he does not dismiss. As long as no proximal extension isnoted, therapeutic anticoagulation is not indicated. Mechanism of Injury: Fell from a 6 [...] - No follow up required in the [facility] clinic for the one rib fracture #9 Fracture Acetabulum Other Closed Initial Left ([facility]) #10 Fracture Pelvis Multiple Closed With Stable Disruption Pelvis Ring Initial ([facility]) #11 Fracture Ilium Closed Initial Left ([facility]) Multiple comminuted fractures of the left anterior [...] not fully understand weight bearing restrictions and a2 assist currently - two falls with assistance to ground slowly without heavy strike to ground over past few days secondary to trying to get up on his own impulsively - has one to one sitter at bedside - Pelvis x-rays obtained (12/03): surgical hardware intact - Davol drain and vac removed 12/04 - Plan for staple removal 12/15 - Patient non-compliant [...] is to post void residual <400 cc -offer urinal multiple times per day and before straight cathing Summary: - Diet: adult dysphagia, thin (TNO), soft and bite sized (SB6) - Activity/Exercise: up with assistance, weight bearing restriction to LLE, toe touch - VTE Prophylaxis: Enoxaparin 30 mg BID - Bowel Regimen: Dulcolax, milk of magnesia, MiraLAX, Senokot - Void: in and out if he struggles with spontaneous voiding - Pain: Tylenol, Lidoderm patch - Disposition: SNF pending, Working on home health with [facility] benefits if facility is unable to be identified. Please contact the Trauma service with questions at [phone]. * Mani Noe L.G.S.W., M.S.W. - 12/16/2023 9:07 AM CDT SUBJECTIVE Social Work engaged in record review and communicated with interdisciplinary team regarding patient's discharge-related needs. Social Work emailed completed Community Therapist Durable Medical Equipment Request Form to [facility] staff: BRANDY Elizabeth at [facility] ([phone]; [email or web address]). OBJECTIVE Mr. Carlos Alberto Grayson is an 83-year-old male patient hospitalized on FR 05C, Room 124 (for Fracture Ilium Closed Initial Left). ASSESSMENT / PLAN ASSESSMENT Patient was not assessed but continues to benefit from Social Work's coordination of care. PLAN -Patient's discharge disposition is not certain at this point. -SNF referrals are pending, but patient's continued 1:1 observation status will continue to be a barrier to placement. -An alternative plan involves having [facility] provide necessary [facility] to patient's home [facility]and [facility] with patient's spouse providing the majority of in-home care. Coordinating with [facility] will likely take at least1-2 weeks once process is initiated. Requested DME form has been sent via email (12/16/2023). -Transportation needs will be addressed closer to time of discharge. -Social Work will assist with transition planning and will offer supportive visits as necessary during remainder of patient's hospital stay. Aimee Moe, M.S.W. 12/16/23 * Kaycee Bolaños M.A., O.T., [facility] - 12/15/2023 3:50 PM CDT OT Dysphagia Progress Note: Patient about to go into the bathroom with [employer]. OT had gathered cereal with milk, toast, and pretzels to assess Regular Diet textures (including mixed textures), in order to determine readiness for upgrade. Patient reported he did not want to eat anything, even when OT encouraged patient and reassured him he could use the bathroom first. OT will try to return tomorrow to assess readiness for upgrade to a Regular Diet, as appropriate and able. Patient is tolerating current SB6 diet without concerns and reports he is okay staying on this dietuntil he can trial other textures at next session. Kaycee Bolaños M.A., O.T., BCP * Ailyn Reeder M.S., O.T., MOT - 12/15/2023 12:40 PM CDT Occupational Therapy Acute Hospital Inpatient [...] Disturbance (HCC) [G30.9, F02.80] 17. Delirium [R41.0] 18. Decline Functional Status [R53.81] History of Present Illness: Pt is an [...] 11/23/23 Patient/Caregiver Goals: Pt goal to return home Precautions Weight Bearing Status: TTWB LLE - difficulty maintaining this Other Precautions: Fall risk, cognition, aspiration Fall Risk (65 and older) Fall in the last 12 months: Yes Did you have an injury with the fall?: Yes Are you fearful of falling?: Yes OBJECTIVE Pain: Pain not verbalized by patient during session, however, nonverbal body language indicates pain with movement of left lower extremity during bed mobility Vitals:Not indicated at this time Home management training: UE Dressing UE Dressing Delivery: Assessed, Therapist Assisted, Facilitated UE Dressing Items Included: lead man over all dies in pattern shop shirt UE Dressing Level of Assistance: Supervision/Set-up UE Dressing Location: Seated on edge of bed LE Dressing LE Dressing Location: Seated on edge of bed, Standing LE Dressing Delivery: Assessed, Therapist Assisted, Facilitated, Instructed LE Dressing Adaptive Equipment: Dressing stick LE Dressing Items Included: Pants, Underwear/Adult incontinence briefs LE Dressing Level of Assistance: Minimal assistance LE Dressing Comments: Assessed need for dressing aids in preparation for d/c home. Utilized dressing stick in completion of lowerbody dressing in addition to minimal assistance from therapist. In standing to adjust pants fully over hips, utilized front wheeled walker with therapist contact guard assistance and no loss of balance. Does not abide by left lower extremity weightbearing restrictions despite education from therapist Bed Mobility - Supine to Sit # of Assistants: 1 Level of Assistance: Minimal assistance, Moderate assistance Device: Bed rail, Head of bed elevated Cuing: Verbal, Tactile Comments: Minimal to moderate assistance in moving supine to sit edge of bed. Therapist assisting at bilateral lower extremities and providing verbal instruction throughout Bed Mobility - Sit to Supine # of Assistants: 1 Level of Assistance: Minimal assistance Device: Bed rail, Head of bed elevated Cuing: Verbal, Tactile Comments: Minimal assistance in management of bilateral lower extremities over edge of bed Bed Mobility - Scooting # of Assistants: 1 Level of Assistance: Supervision/Set-up Device: None Cuing: Verbal Sit to Stand Transfers # of Assistants: 1 Transfer Surface: Bed Transfer Equipment: Gait belt, Front wheeled walker, Bed rail Level of Assistance: Minimal assistance Assessment/Delivery: Assessed, Therapist assisted, Facilitated, Instructed Stand to Sit Transfers # of Assistants: 1 Transfer Surface: Bed Transfer Equipment: Gait belt, Front wheeled walker, Bed rail Level of Assistance: Contact guard assistance Assessment/Delivery: Assessed, Therapist assisted, Facilitated, Instructed Based on completion of total body dressing while seated edge of bed, OT recommending homegoing equipment as noted yesterday 12/13 in addition to dressing stick, long handled shoehorn, and electrical line mechanic. These dressing aides will maximize patient independence in activities of daily living while also increasing safety and comfort during healing of injury. Patient/Family Education: Role of OT, rationale of intervention, left lower extremity weightbearingrestrictions, use of dressing aides At the end of today's therapy session patient was left in bed 1:1 staff present with an appropriatecall light within reach. Patient's needs and questions addressed during today's session. Assessment Patient participatory and pleasant throughout session. Session focus placed on trial of dressing aides in completion of total body dressing seated edge of bed. Patient benefitted from use of dressingstick and long handled shoe horn while still requiring minimal assistance from therapist specific to motor planning and problem solving through task. In standing to adjust pants fully over hips, utilized front wheeled walker and therapist contact guard assistance. At this time, OT also recommendingreacher in preparation for patient d/c home (see details above). Note patient education provided regarding left lower extremity weightbearing restrictions, however, continues to demonstrate difficulty in abiding by restriction. Patient is below functional baseline and would benefit from ongoing skilled OT services to address listed deficits and support improved independence and safety in completion of daily occupation. Barriers to Discharge Home: Current functional status, [...] device and moderate physical assistance. OT Goal #1 Status: Ongoing OT Goal #2: STG: By goal review date, pt will complete one simple grooming task from seated base with setup assistance. OT Goal #2 Status: Ongoing OT Goal #3: LTG: By discharge, pt and caregivers will demonstrate understanding of all adaptive equipment recommendations for home going in order to maximize safety and independence with ADL/IADL tasks. OT Goal #3 Status: Progressing Progress: Progressing toward goals Plan Patient agrees [...] management, Cognitive skills training Time Spent with Patient: Therapeutic Interventions Home Management Training (min): 16 min Time Tracking Total Timed Units (min): 16 min Total Treatment Time (min): 16 min Ailyn Reeder M.S., O.T., MOT * Bentley Silva APRN, C.N.P., M.S.N. - 12/15/2023 11:37 AM CDT SUBJECTIVE Mr. Grayson was seen and examined by the Trauma team in his room this morning. He was sitting in the bed watching TV comfortably. Hospital day 22. Remains hemodynamically stable and afebrile. Improved oral intake. He continues to make good amounts of urine, and is having daily bowel function. OBJECTIVE VITAL SIGNS Temperature: [36.1 ??C-36.5 ??C] 36.1 ??C Resp Rate: [16-18] 18 Blood Pressure: (104-133)/(47-78) 112/47 SpO2: [92 %-100 %] 100 % Pulse Rate: [64-82] 82 I/O 12/12 0712/13 0712/13 0712/14 0712/14 0712/15 0700 P.O. 480 1300 507 Total Intake(mL/kg) 480 (5.1) 1300 (13.9) 507 (5.4) Urine (mL/kg/hr) 650 (0.3) 950 (0.4) Stool 0 Total Output 650 950 Net -170 +350 +507 Unmeasured Urine Occurrence 4 x 4 x Unmeasured Stool Occurrence 1 x 1 x Physical Exam General: Asleep, resting in bed, in no acute distress. Respiratory: Regular work of breathing on room air. Abdomen: Soft, non-tender, non-distended. Skin: Warm and dry DIAGNOSTICS I have reviewed labs. ASSESSMENT / PLAN Currently assessing for placement versus ongoing with family at assistive devices provided by [place]. Mechanism of Injury: Fell from a 6 [...] - No follow up required in the [facility] clinic for the one rib fracture [...] not fully understand weight bearing restrictions and a2 assist currently - two falls with assistance [...] contact the Trauma service with questions at [phone]. * Mani Noe L.G.SPeggy., M.S.W. - 12/15/2023 9:20 AM CDT SUBJECTIVE Social Work engaged in record review and communicated with interdisciplinary team regarding patient's discharge-related needs. Social Work used Secure Chat to address [facility] D[facility] for [facility] (form yet to be completed). Social Work sent email to [facility] staff to ask discharge-related questions (no email reply received by day's end): BRANDY Elizabeth at [facility] ([phone]; ) OBJECTIVE Mr. Carlos Alberto Grayson is an 83-year-old male patient hospitalized on FR 05C, Room 124 (for Fracture Ilium Closed Initial Left). ASSESSMENT / PLAN ASSESSMENT Patient was not assessed but continues to benefit from Social Work's coordination of care. PLAN -Patient's discharge disposition is not certain at this point. -SNF referrals are pending, but patient's continued 1:1 observation status will continue to be a barrier to placement. -An alternative plan involves having [facility] provide necessary D[facility] to patient's home (and C), with patient's spouse providing the majority of in-home care. Coordinating with [facility] will likely take at least1-2 weeks once process is initiated. -Transportation needs will be addressed closer to time of discharge. -Social Work will assist with transition planning and will offer supportive visits as necessary during remainder of patient's hospital stay. Aimee Moe, M.S.W. 12/15/23 * Nydia Shepard D.T.R. - 12/15/2023 8:16 AM CDT Clinical Nutrition: Reassessment RECOMMENDATIONS REQUIRING MD/PROVIDER ORDER No changes at this time; continue current nutrition orders For questions about patient's nutritional care please contact pager [phone] on weekdays or [phone] on weekends/holidays. NUTRITION ASSESSMENT: Mr. Grayson is a 83 y.o. male who was admitted for trauma after fall from ladder suffering SAH, TBI, DVT, rib fracture, pleural effusion, pelvic fracture. Note history of dementia Requested to see patient for evaluation of: oral intake encouragement. Current Diet Order: Adult Diet Dysphagia; Thin (TN0); Soft and Bite-Sized (SB6) Spoke with [employer] taking care of Carlos Alberto late yesterday afternoon while he was in the bathroom ( not present). She notes that he ate a late breakfast, so was not hungry for lunch. Spot check on intake from 12/10: 0-100% of meals and ate ~ 1600 calories and 60 g protein - unsure if these are complete records as does bring in outside foods for him. noted, weight has increased since admit. OT plans to assess Pt to see if diet can be upgraded safely. Pt is drinking the smoothie. He does drink the Ensure, though hadn't yesterday related to still being full from late breakfast. He needs placement at [facility]. ANTHROPOMETRICS: Height: 180.3 cm Admission Weight: 86.3 kg (11/23/2023) Current Weight: 93.4 kg BMI (Calculated): 28.7 kg/m?? ESTIMATED NEEDS: Total Calorie Needs: 8590-2090 calories/day Method to Estimate Energy Needs: kcal/kg ( ) Weight Used for Equation Calculations: 86.3 kg Total Protein Needs: 85 - 102 grams/day Method to Estimate Protein Needs (g/kg): 1 - 1.2 gm/kg Weight Used to Calculate Protein Needs (Kg): 85 kg Nutrition Diagnosis: Swallowing difficulty related to fall and confusion as evidenced by need for dysphagia diet Nutrition Diagnosis Reassessment: Ongoing (improving) Nutrition Intervention: Medical food supplement, Increase nutrient intake with small, frequent meals and/or snacks, Vitaminand mineral supplements Monitoring/Evaluation: Nutrition parameter to monitor: Meals/Supplement Intake, Diet Progression/NPO Status, Skin Integrity, Pertinent Labs, Nausea/Vomiting/Diarrhea, Chewing/Swallowing * Ailyn Reeder M.S., O.T., MOT - 12/14/2023 3:56 PM CDT Occupational Therapy Acute Hospital Inpatient [...] Disturbance (HCC) [G30.9, F02.80] 17. Delirium [R41.0] 18. Decline Functional Status [R53.81] History of Present Illness: Pt is an [...] 11/23/23 Patient/Caregiver Goals: Pt goal to return home Precautions Weight Bearing Status: TTWB LLE - difficulty maintaining this Other Precautions: Fall risk, cognition, aspiration Fall Risk (65 and older) Fall in the last 12 months: Yes Did you have an injury with the fall?: Yes Are you fearful of falling?: Yes OBJECTIVE Pain: No pain reported by patient during session Vitals: Not indicated at this time Social work reached out to PT/OT yesterday requesting homegoing equipment recommendations. PT/OT met with patient and his to discuss home environment, recommended levels of assistance, and homegoing equipment. According to patient's , she [facility]; they have communicated ability to provide 16 hours of nursing assistance and daily PT/OT with potential for increase. is retired home health RN and discussed her ability to transfer and operate equipment appropriately. Provided education on patient's difficulty maintaining weight bearing restrictions and the concern with progressing functional mobility. Recommending he only stand for pivot transfers at home if able to abide by this restriction, therefore, potentially requiring a héctor lift inorder to ensure weightbearing restriction is maintained. Recommend stand pivot transfer with assistof 2 and front wheeled walker as patient's son will be staying with them for a couple of weeks [facility] patient d/c. Patient already owns a walker, cane, and wheelchair (which fits within the doorways of their home). PT/OT requesting images of home bathroom and entrance to assist in finalizing equipment planning. Patient's planning to provide photos to therapists 12/14. At this time, PT/OT recommending the following equipment: - Ramp: spouse states 3-4 step entrance; educated that if these are standard steps, that would require a ramp of up to 24 feet. Spouse plans to assess at home and provide measurements - Hospital bed (preferably electric): patient has significant difficulty completing bed mobility atthis time due to pain and cognition - Tub transfer bench: required as patient is unable to internet merchant the shower safely and abide by weight bearing precautions. Recommending as opposed to shower chair in order to aid in abiding by weightbearing restrictions and limit need to step over side of tub - Bedside commode: required due to current level of difficulty transferring and [facility], transfer device, and 2 caregivers to safely complete transfer - Transfer belt: to safely assist patient with all transfers as needed - Grab bars: spouse will provide pictures of bathroom set up to determine quantity required. Will likely benefit from grab bars within shower to safely transfer in/out and potentially surrounding toilet to aid in sit to stands/toilet transfers - Hand held showerhead: since patient is unable to internet merchant shower, he will require a handheld showerhead to appropriately clean entire body and for caregiver to assist due to patient's cognitive status - Héctor lift: requires a lift system to ensure patient abides by weight bearing precautions; at this time, he has been very inconsistent and unable to maintain due to cognitive status. Spouse states she has experience working with different lifting systems. If further assessment is needed, best to complete with home health PT/OT. Equipment not available to trial within hospital setting - Dressing aids: OT will assess tomorrow and provide recommendations as appropriate Spouse denies need for training on equipment and transfers as she has experience with all equipment/transfer recommendations as a nurse. Once equipment is delivered, if any further follow up trainingis required, home health PT/OT will be available to assist. Spouse states understanding. Spouse also reports concerns with nursing follow ups over phone when significant events occur (ex. Falls and lost hearing aids), cloudy urine, and medication management. Deferred to RN and communicated these concerns with RN at end of session. At the end of today's therapy session patient was left in bed with an appropriate call light withinreach. Patient's needs and questions addressed during today's session. Assessment Patient and patient's present for session to discuss homegoing equipment recommendations, caregiver education, and related concerns prior to d/c. At this time, PT/OT recommending ramp, hospital bed, tub transfer bench, bedside commode, transfer belt, grab bars, hand held shower head, héctor lift, and dressing aids; see above for further detail and justification. His stated their son would be staying with them following patient d/c to assist as needed. Spouse denied need for training onrecommended equipment given her previous work experience as RN. Will further assess need for dressing aids during session tomorrow 12/14. Patient is below functional baseline and would benefit from [place] skilled OT services to address listed deficits and support improved independence and safety incompletion of daily occupation. Barriers to Discharge Home: Current functional status, [...] device and moderate physical assistance. OT Goal #1 Status: Ongoing OT Goal #2: STG: By goal review date, pt will complete one simple grooming task from seated base with setup assistance. OT Goal #2 Status: Ongoing OT Goal #3: LTG: By discharge, pt and caregivers will demonstrate understanding of all adaptive equipment recommendations for home going in order to maximize safety and independence with ADL/IADL tasks. OT Goal #3 Status: Progressing Progress: Progressing toward goals Plan Patient agrees [...] management, Cognitive skills training Time Spent with Patient: Therapeutic Interventions Home Management Training (min): 59 min Time Tracking Total Timed Units (min): 59 min Total Treatment Time (min): 59 min Ailyn Reeder M.S., O.T., MOT * Margie Roth P.T., D.P.T. - 12/14/2023 3:20 PM CDT Physical Therapy Acute Hospital Inpatient [...] Disturbance (HCC) [G30.9, F02.80] 17. Delirium [R41.0] 18. Decline Functional Status [R53.81] History of Present Illness: Pt is an [...] goal to return home. Patient Comments: Patient in bed upon PT/OT arrival. Spouse at bedside. Precautions Weight Bearing Status: TTWB LLE - difficulty maintaining this Other Precautions: Fall risk, cognition, aspiration Fall Risk (65 and older) Fall in the last 12 months: Yes Did you have an injury with the fall?: Yes Are you fearful of falling?: Yes OBJECTIVE Patient/Family Training: Yesterday, PT/OT notified by that the [place] needed equipment recommendations for homegoing. PT/OT met with patient and spouse to discuss home environment, level of assist required, and equipment recommendations. Spouse reports she has been discussing [facility] with [facility]; they have communicated ability to provide 16 hours of nursing assistance and daily PT/OT. Spouse discussed her experience as a nurse and ability to transfer and operate equipment appropriately. Provided education on patient's difficulty maintaining weight bearing restrictions and the concern with progressing functional mobility. Recommending that he only stand for pivot transfers at home if he is able to abide by this restriction. Discussed potentially requiring a héctor lift in order to ensure weight bearing restriction is maintained for proper healing. Also educated that stand pivot transfer should be completed with the assist of 2; spouse states her son is staying with them for a fewweeks after discharge to assist as needed. Spouse states they already own a walker, cane, and wheelchair (prefers this wheelchair because it can fit through doorways). Spouse plans to take images of bathroom set up and entrance of home to finalize equipment recommendations. Anticipating he will need the following prior to discharge: - ramp: spouse states 3-4 step entrance; educated that if these are standard steps, that would require a ramp of up to 24 feet. Spouse plans to assess at home and provide measurements. - hospital bed (preferably electric): patient has significant difficulty completing bed mobility atthis time due to pain and cognition. - tub transfer bench: required as patient is unable to internet merchant the shower safely and abide by weight bearing precautions - bedside commode: required due to current level of difficulty transferring and limited room withinbathroom for patient, transfer device, and 2 caregivers to safely complete transfer. - transfer belt: for caregivers to safely assist patient with all transfers as needed. - grab bars: spouse will provide pictures of bathroom set up to determine quantity required. Will likely benefit from grab bars within shower to safely transfer in/out. - handheld showerhead: since patient is unable to internet merchant shower, he will require a handheld showerhead to appropriately complete hygiene and for caregiver to assist due to patient's cognitive status. - héctor lift: requires a lift system to ensure patient abides by weight bearing precautions; at this time, he has been very inconsistent and unable to maintain due to cognitive status. Spouse states she has experience working with different lifting systems. If further assessment is needed, best to complete with home health PT/OT. Equipment not available to trial within hospital setting. - dressing equipment: OT will assess this tomorrow and provide recommendations. Spouse denies need for training on equipment and transfers as she has experience with all equipment/transfer recommendations as a nurse. Once equipment is delivered, if any further follow up trainingis required, home health PT/OT will be available to assist. Spouse states understanding. Spouse also reports concerns with nursing follow ups over phone when significant events occur (ex. Falls and lost hearing aids), cloudy urine, and medication management. Deferred to RN and communicated these concerns with RN at end of session. At the end of today's therapy session patient was left in bed with an appropriate call light withinreach. Patient's needs and questions addressed during today's session. Assessment Mr. Grayson's was present for today's session to discuss home environment, recommended level of assistance, and equipment for homegoing. She is [facility] to [facility] equipment and daily home health aides. Their son is also planning to be present at discharge and stay for a few weeks to assist as needed. His spouse has a good understanding of level of assist and how to utilize equipment as she worked as a home health nurse for many years. Discussed equipment recommendations (see list above); spouse denied need for training on equipment and transfers given her prior experience. She will provide measurements and pictures of environment in order to finalize recommendations. Barriers to a safe discharge home: Barriers [...] level of function. PT Goal #3 Status: Slowly progressing Progress: Slow progress, cognitive deficits Plan Patient [...] Therapeutic functional activity, Neuromuscular re-education, Gait training GYRO [employer]CH[employer]IC Visit Trackin Time Spent with Patient Therapeutic Interventions Therapeutic Activity (min): 60 min Time Tracking Total Timed Units (min): 60 min Total Treatment Time (min): 60 min Margie Roth P.T., D.PTarikTTarik * Lizett Ashraf O.T., O.T.D., VINITA - 12/14/2023 1:25 PM CDT 12/14/23 1325 Reason Therapy Missed Reason Therapy Missed Receiving other care (Therapist ordered trial tray to assess readiness for diet upgrade. Patient busy with other providers when meal tray arrived. OT dysphagia will plan to follow up to assess readiness to upgrade diet further next session.) Tamia Ashraf O.T., O.T.D., VINITA * Bentley Silva APRN, C.N.P., M.S.N. - 12/14/2023 10:03 AM CDT SUBJECTIVE Mr. Grayson was seen and examined by the Trauma team in his room this morning. He was sleeping in well this morning. Hospital day 21. Remains hemodynamically stable and afebrile. Continues with lower volume oral intake. He is making good amounts of urine, and is having daily bowel function. OBJECTIVE VITAL SIGNS Temperature: [36.7 ??C-37.6 ??C] 36.7 ??C Resp Rate: [18-20] 18 Blood Pressure: (116-140)/(48-56) 116/48 SpO2: [93 %-96 %] 94 % Pulse Rate: [64-76] 64 I/O 12/11 0701 12/12 0700 12/12 0701 12/13 0700 12/13 0701 12/14 0700 P.O. 480 480 Total Intake(mL/kg) 480 (5.1) 480 (5.1) Urine (mL/kg/hr) 1250 (0.6) 650 (0.3) Stool 0 Total Output 1250 650 Net -770 -170 Unmeasured Urine Occurrence 3 x 4 x Unmeasured Stool Occurrence 3 x Physical Exam General: Asleep, resting in bed, in no acute distress. Respiratory: Regular work of breathing on room air. Abdomen: Skin: DIAGNOSTICS I have reviewed labs. ASSESSMENT / PLAN Currently assessing for placement versus ongoing with family at assistive devices provided by [place]. Mechanism of Injury: Fell from a 6 ft ladder -11/23: SAS completed -11/24: TTS completed #1 History Of Falling -Care management consulted; SNF referrals pending -PMR PT/OT consulted, following -patient continues on : #2 Subarachnoid Hematoma Trauma Without Loss Of [...] CT obtained and stable, therefore, chemoprophylaxis resumed. 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) - PMR TBI consulted who will continue following and assessing #5 Thrombosis Deep Vein Lower Extremity Left [...] - No follow up required in the [facility] clinic for the one rib fracture [...] not fully understand weight bearing restrictions and a2 assist currently - two falls with assistance to ground slowly without heavy strike to ground over past few days secondary to trying to get up on his own impulsively - has one to one sitter at bedside - Pelvis x-rays obtained (12/03): surgical hardware intact - Davol drain and vac removed 12/04 -Plan for staple removal 12/15 - at discharge OTS f/u, they will order #12 Anemia Posthemorrhagic Acute (Blood Loss Anemia) [...] - Aspiration precautions & medications with purees -takes very large bites/multiple bites prior to swallowing, [...] contact the Trauma service with questions at [phone]. * Ailyn Reeder, M.S., O.T., MOT - 12/13/2023 3:40 PM CDT Occupational Therapy Acute Hospital Inpatient [...] Disturbance (HCC) [G30.9, F02.80] 17. Delirium [R41.0] 18. Decline Functional Status [R53.81] History of Present Illness: Pt is an [...] 11/23/23 Patient/Caregiver Goals: Pt goal to return home Precautions Weight Bearing Status: TTWB LLE - difficulty maintaining this Other Precautions: Fall risk, cognition, aspiration Fall Risk (65 and older) Fall in the last 12 months: Yes Did you have an injury with the fall?: Yes Are you fearful of falling?: Yes OBJECTIVE Pain: No pain reported by patient during session Vitals: Not indicated at this time Home management training: Grooming Grooming Location: Wheelchair, Seated at sink Grooming Delivery: Assessed, Therapist assisted, Facilitated Grooming Level of Assistance: Supervision/Set-up Grooming Comments: Patient completed oral hygiene and washed his face seated in wheelchair at sink.Requires cues specific to initiation, sequencing, and termination of tasks Bed Mobility - Supine to Sit # of Assistants: 1 Level of Assistance: Minimal assistance, Moderate assistance Device: Bed rail, Head of bed elevated Cuing: Verbal, Tactile Comments: Minimal to moderate assistance in motor planning and follow through of moving supine to sit edge of bed. Assistance provided at bilateral lower extremities and trunk in completion of transfer Sit to Stand Transfers # of Assistants: 1 Transfer Surface: Bed, Wheelchair Transfer Equipment: Gait belt, Front wheeled walker Level of Assistance: Contact guard assistance, Minimal assistance Assessment/Delivery: Assessed, Therapist assisted, Facilitated Stand to Sit Transfers # of Assistants: 1 Transfer Surface: Wheelchair, Chair Transfer Equipment: Gait belt, Front wheeled walker Level of Assistance: Contact guard assistance, Minimal assistance Assessment/Delivery: Assessed, Therapist assisted, Facilitated Bed, Chair, Wheelchair Transfers # of Assistants: 1 Transfer Surface: Chair, Wheelchair, Bed Transfer Approach: Stand pivot Transfer Equipment: Front wheeled walker Level of Assistance: Minimal assistance Assessment/Delivery: Assessed, Therapist assisted, Facilitated Comments: Minimal assistance in completion of stand pivots transfers with front wheeled walker. Reviewed weightbearing restrictions 2x through with patient prior to transfers; does not respect restrictions despite education just prior to transfers Patient/Family Education: Role of OT, rationale of intervention, LLE weightbearing restrictions, reorientation At the end of today's therapy session patient was left seated in bedside chair 1:1 staff present with an appropriate call light within reach. Patient's needs and questions addressed during today's session. Assessment Patient participatory and pleasant throughout session. In completion of bed mobility, requiring grossly minimal to moderate assistance and cueing as needed. Performing functional sit <> stands and stand pivot transfers grossly contact guard assistance to minimal assistance with front wheeled walker. Completed grooming tasks seated at sink in wheelchair following set up by therapist, however, requiring cues specific to initiation, sequencing, and termination. As of this date, patient A/O to self only; reorientation provided. Continue education regarding LLE weightbearing restrictions as patient does not abide by restrictions in completion of functional transfers at this time. Plan to address caregiver training and related homegoing equipment recommendations with patient's tomorrow 12/13 prior to patient d/c. Patient is below functional baseline and would benefit from ongoing skilled OT services to address listed deficits and support improved independence and safety in completion of daily occupation. Barriers to Discharge Home: Current functional status, [...] device and moderate physical assistance. OT Goal #1 Status: Progressing OT Goal #2: STG: By goal review date, pt will complete one simple grooming task from seated base with setup assistance. OT Goal #2 Status: Progressing (Requiring cues specific to initiation, sequencing, and termination) OT Goal #3: LTG: By discharge, pt and caregivers will demonstrate understanding of all adaptive equipment recommendations for home going in order to maximize safety and independence with ADL/IADL tasks. OT Goal #3 Status: Ongoing Progress: Progressing toward goals Plan Patient agrees [...] management, Cognitive skills training Time Spent with Patient: Therapeutic Interventions Home Management Training (min): 18 min Time Tracking Total Timed Units (min): 18 min Total Treatment Time (min): 18 min Ailyn Reeder M.S., O.T., MOT * Bentley Silva APRN, C.N.P., M.S.N. - 12/13/2023 2:43 PM CDT SUBJECTIVE Mr. Grayson was seen and examined by the Trauma team in his room this morning. He reports that he has no concerns this morning. He does want to get moving and is asking about discharge plans. Deniesany nausea or vomiting and is tolerating some PO intake. CT yesterday shows resolution of intraventricular hemorrhage. DVT appears to be improving on US. Working with PT/OT on mobilizing. OBJECTIVE VITAL SIGNS Temperature: [36.6 ??C-37.3 ??C] 36.9 ??C Resp Rate: [18-20] 20 Blood Pressure: (114-137)/(51-64) 124/52 SpO2: [93 %-98 %] 97 % Pulse Rate: [71-83] 83 I/O 12/10 0701 12/11 0712/11 0701 12/12 0712/12 0701 12/13 0700 P.O. 470 480 480 Total Intake(mL/kg) 470 (5) 480 (5.1) 480 (5.1) Urine (mL/kg/hr) 625 (0.3) 1250 (0.6) 100 (0.1) Stool 0 0 Total Output 625 1250 100 Net -155 -770 +380 Unmeasured Urine Occurrence 3 x 3 x Unmeasured Stool Occurrence 2 x 3 x Physical Exam General: Alert, resting in bed, in no acute distress. Respiratory: Regular work of breathing on room air. Abdomen: Soft, non-tender, non-distended. Incision approximated with inna, no signs of infection. Skin: Warm and dry DIAGNOSTICS I have reviewed labs. ASSESSMENT / PLAN There was a discussion this morning regarding the usage of therapeutic anticoagulation. The question arises, can the patient be started on therapeutic anticoagulation given his head bleed? A repeat CT per Neurosurgery was obtained today and patient appears to be stable. Follow up with Chief C Neurosurgery. 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 Repeat imaging next on 12/18. IF no proximal extension, no need for therapeutic anticoagulation. #6 Fracture Rib One Closed Initial Left #7 Atelectasis #8 Effusion Pleural Nondisplaced, left 6th rib fracture - Started on rib fracture protocol -difficult to follow secondary to cognition - Continue with encouraging pulmonary hygiene as able (IS/deep breathing/coughing/CPAP) - No follow up required in the [facility] clinic for the one rib fracture #9 Fracture Acetabulum Other Closed Initial Left ([facility]) #10 Fracture Pelvis Multiple Closed With Stable Disruption Pelvis Ring Initial ([facility]) #11 Fracture Ilium Closed Initial Left ([facility]) Multiple comminuted fractures of the left anterior [...] not fully understand weight bearing restrictions and a2 assist currently - two falls with assistance to ground slowly without heavy strike to ground over past few days secondary to trying to get up on his own impulsively - has one to one sitter at bedside - Pelvis x-rays obtained (12/03): surgical hardware intact - Davol drain and vac removed 12/04 -Plan for staple removal 12/15 - at discharge OTS f/u, they will order #12 Anemia Posthemorrhagic Acute (Blood Loss Anemia) [...] - Aspiration precautions & medications with purees -takes very large bites/multiple bites prior to swallowing, [...] contact the Trauma service with questions at [phone]. * Hayley Durham L.G.S.W., M.S.W. - 12/13/2023 12:32 PM CDT SUBJECTIVE Social Work spoke with [facility] Oven Attendant, Colleen, on the phone. Social Work communicated with therapy regarding obtain completed VA DME form. OBJECTIVE Patient has been medically ready and awaiting placement. Referrals sent: [facility] - DECLINED (cannot accept 1:1) [facility] - DECLINED (cannot accept 1:1) [facility] (needs to be off 1:1) [facility] - will assess if off of Safety Plan for 24 hours [facility] - will assess if off of Safety Plan for 72 hours [facility] - will assess if off of Safety Plan for 72 hours [facility] [address] [facility] - DECLINED (cannot accept 1:1 in their demential unit) [facility] - DECLINED (no 's homes in [place] provide short term rehab; [facility] does not take 1:1) [facility] - DECLINED (Safety Plan) [facility] - DECLINED (Safety Plan) [facility] - DECLINED (Safety Plan) [facility] - DECLINED (Safety Plan) [facility] - DECLINED (Safety Plan) [facility] - DECLINED (full) [facility] (they do not accept for short term rehab) [facility] - DECLINED (cannot provide for patient's needs) [facility] -DECLINED (facility full) [facility] (facility full) [facility] - DECLINED (acuity too high[facility] - DECLINED (bed not available) [facility] - DECLINED (full) [facility] - DECLINED (patient needs) [facility] - DECLINED (out of service area) [facility] -DECLINED (services not available) [facility] ASSESSMENT / PLAN ASSESSMENT Patient may now have medical readiness delayed by identification of blood clot. [facility] isassessing on 12/12/23. PLAN Social Work will obtain completed [place] D[place] forms for hospital bed, ramp into home, transfer belt, shower chair, and pivot disk if therapy feels it is safe. Social Work will provide completed [place] D[place] forms to Colleen [place] Oven Attendant Patient's desires patient to discharge to care home facility with PT/OT for 0-3 months. She endorses broad referrals throughout [place] and into [place] if necessary. She is interested in nursing homes/critical access hospitals/'s homes. [place] PAS: Conformation is: [id number] Patient's would like patient to return to home with home health care if care home facility is not available. [facility] can [facility] with necessary equipment and supplies; this will take 1-2 weeks if all goes well. Patient's is not agreeable to Memory Care placement. Social Work will continue to assist with discharge needs. Social Work will continue to follow to provide support. Aimee Ahuja, M.S.W. 12/13/23 * Maria Del Carmen Diaz P.T.A. - 12/13/2023 12:21 PM CDT Physical Therapy Acute Hospital Inpatient [...] greeted at bedside and agreeable to treatment session. Pain left lower extremity when bringing over edge of bed. Precautions Weight Bearing Status: TTWB LLE - difficulty maintaining this Other Precautions: Fall risk, cognition, aspiration Fall Risk (65 and older) Fall in the last 12 months: Yes Did you have an injury with the fall?: Yes Are you fearful of falling?: Yes OBJECTIVE Pain: Patient reporting pain with transitioning of left lower extremity over edge of bed patient did not rate pain . Vitals: Not indicated at this time Bed Mobility - Supine to Sit # of Assistants: 1 Level of Assistance: Minimal assistance Device: Head of bed elevated, Bed rail Cuing: Verbal, Tactile Comments: Patient with verbal cues for sequencing of transfer and contact guard for left lower extremity with patient reporting pain with bringing legs over edge of bed. Sit to Stand Transfers # of Assistants: 1 Transfer Surface: Bed, Chair Transfer Equipment: Gait belt, Front wheeled walker Level of Assistance: Moderate assistance, Minimal assistance Assessment/Delivery: Assessed, Instructed, Therapist assisted, Facilitated Comments: Patient initially with moderate assist to transition into standing and progress to Min assist with verbal cues for hand placement. Patient able to push up with both hands on chair and then up to walker. Stand to Sit Transfers # of Assistants: 1 Transfer Surface: Chair, Bed Transfer Equipment: Gait belt, Front wheeled walker Level of Assistance: Moderate assistance, Minimal assistance Assessment/Delivery: Instructed, Assessed, Therapist assisted, Facilitated Comments: Patient with verbal cues for hand placement and with good hand placement Min assist for eccentric control and when he does not reach back he requires moderate assist. Bed, Chair, Wheelchair Transfers # of Assistants: 1 Transfer Surface: Chair Transfer Approach: To Transfer Equipment: Front wheeled walker Level of Assistance: Minimal assistance Assessment/Delivery: Assessed, Instructed, Therapist assisted, Facilitated Comments: Verbal cues for toe-touch to nonweightbearing left lower extremity. Patient with improvedability to maintain nonweightbearing versus toe-touch for transition of transfer to his right. Gait Assessment/Training Distance (m): 2 m (x2) Surface: Even, Smooth/hard Device: Gait belt, Front-wheeled walker # of Assistants: 1 Level of Assistance: Moderate assistance Quality/Pattern: Antalgic Assessment of Gait: Patient with antalgic pattern on left due to inability to maintain weight-bearing restrictions. Attempted to progress with gait instruction today and performance to perform toe-touch weight-bearing, however patient was unable to optimally maintain, thus limited distance with gait Training/Intervention: Patient unable to maintain toe-touch weight-bearing but he is able to hop with nonweightbearing on left lower extremity with demonstration of technique. Patient able to ambulate from 1 chair to another in his room with turns to sit. Patient with increased difficulty maintaining nonweightbearing and toe-touch with turns for sitting. Response: Patient tolerated hopping well with nonweightbearing on left lower extremity versus maintaining toe-touch Balance Retraining Sitting: Static, Midline orientation (comment), Anterior/posterior leans Static Standing Balance: Static standing Static Standing Balance Comments: Facilitation privded to maintain weigh through RLE. BUE support through front wheeled walker and physical assist for TTWB left. Trialed nonweightbearing with patientable to maintain nonweightbearing on left lower extremity and remain upright through trunk. Seated Exercise - Side Addressed: Right, Left Sitting Surface: Chair Seated Exercise: Marching, Long arc quads, Ankle pumps Exercise Mode: Active motion against gravity Sets/Repetitions: 10x2 Seated Exercise Comments: Physical and visual cues for exercises Patient/Family Training: Patient educated in nonweightbearing left lower extremity versus toe-touchwhich he has difficulty maintaining. Patient able to maintain nonweightbearing with hopping in straight line but difficulty with turning. At the end of today's therapy session patient was left seated in bedside chair with an appropriate call light within reach. Patient's needs and questions addressed during today's session. Assessment Patient demonstrating improved mobility this date with progression of ambulation with nonweightbearing left lower extremity. Patient continues to have difficulty maintaining toe-touch weight-bearing in standing and with pivot transfers. He requires physical assist to avoid full weight-bearing on left lower extremity with transfers. Nursing educated on trialing stand pivot transfers to patient's right with nonweightbearing on left and use of front wheeled walker. He is functional below his baseline and will benefit from ongoing physical therapy progress strength, neuromuscular re-education andsafe functional ability for plan of care. Barriers to a safe [...] level of function. PT Goal #3 Status: Slowly progressing Progress: Slow progress, cognitive deficits Plan Patient [...] Therapeutic functional activity, Neuromuscular re-education, Gait training GYRO MECHANIC Visit Trackin Time Spent with Patient Therapeutic Interventions Therapeutic Activity (min): 20 min Therapeutic Exercise (min): 10 min Time Tracking Total Timed Units (min): 30 min Total Treatment Time (min): 30 min Maria Del Carmen Diaz P.T.ATarik * Kong Mendoza M.D. - 12/13/2023 10:47 AM CDT Patient reviewed with the trauma team. Interval head CT scan demonstrates resolution of intraventricular hemorrhage Updated ultrasound in follow up of the left soleal vein DVT notes mild improvement Plan: Vascular Medicine consultation Follow up with Neurosurgery regarding full systemic anticoagulation should it be indicated per Vascular Medicine Ongoing PT/OT Dispo: Anticipate care home facility; home health referrals also sent * Hayley Durham L.G.S.W., M.S.W. - 12/13/2023 8:02 AM CDT SUBJECTIVE Social Work communicated with Physical Therapy, Occupational Therapy, [place] Social Work, Nursing, and patient's regarding discharge planning and VA DME paperwork. OBJECTIVE Patient is awaiting DME and home health care service establishment through the [place] for return to home with support from , retired home health care nurse. ASSESSMENT / PLAN ASSESSMENT Patient's appears experienced and competent in providing cares in the home after discharge. 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 Patient's appears to be appropriately planning for patient's discharge needs and serves as an excellent advocate for patient. Patient's is extremely proactive and collaborative with [facility] Social Work and [place] Social Work. Patient's anticipates meeting with PT/OT on 12/14/23 between 1-3pm for education on patient's mobility needs. PLAN Social Work will obtain VA DME form from [facility] and fax this to the [facility] as well as email [place] Social Work of submission. Patient will discharge home with support from his . Patient will have home health care (nursing, PT, and OT) and DME arranged by [place] Oven Attendant Clara Craig. Patient's will provide transportation. Patient and his anticipate moving to [place] to live with their son and [id number] in approximately 3 months with the completion of an addition to their home to accommodate patient and patient's . Social Work will continue to follow to provide support. Social Work will continue to follow to assist with discharge needs. Aimee Ahuja, M.S.W. 12/14/23 * Javier Sanchez P.T., Olivia.P.T., [facility] - 12/12/2023 4:21 PM CDT Physical Therapy Acute Hospital Inpatient [...] goal to return home. Patient Comments: Patient willing to participate in therapy Precautions Weight Bearing Status: TTWB LLE - difficulty maintaining this Other Precautions: Fall risk, cognition, aspiration Fall Risk (65 and older) Fall in the last 12 months: Yes Did you have an injury with the fall?: Yes Are you fearful of falling?: Yes OBJECTIVE Pain: Unable to rate Sit to Stand Transfers # of Assistants: 1 Transfer Surface: Bed, Chair Transfer Equipment: Gait belt, Front wheeled walker Level of Assistance: Moderate assistance Assessment/Delivery: Assessed, Instructed, Therapist assisted, Facilitated Comments: Prior to standing, this therapist reiterated weight-bearing restrictions. Upon standing continue to instruct patient with simplified instructions due to cognitive status. Patient having difficulty maintaining Stand to Sit Transfers # of Assistants: [...] Assessment/Delivery: Assessed, Instructed, Therapist assisted, Facilitated Comments: Pivot transfer and assist to help offload patient to maintain a more toe-touch weight-bearing Gait Assessment/Training Distance (m): 3 m Surface: Even, Smooth/hard Device: Gait belt, Front-wheeled walker # of Assistants: 1 Level of Assistance: Moderate assistance Quality/Pattern: Antalgic Assessment of Gait: Patient with antalgic pattern on left due to inability to maintain weight-bearing restrictions. Attempted to progress with gait instruction today and performance to perform toe-touch weight-bearing, however patient was unable to optimally maintain, thus limited distance with gait Training/Intervention: Facilitation including instructions for offloading and trialed to have patient with nonweightbearing, however he was still unable to perform this. Patient/Family Training: Ongoing instruction for toward her to weight-bearing of left lower extremity At the end of today's therapy session patient was left seated in bedside chair with REGIONAL VICE PRESIDENT [employer] SALES present with an appropriate call light within reach. Patient's needs and questions addressed during today's session. Assessment Patient is pleasant and agreeable to participate in therapy activities today. Had just returned from a test and this assistance was required for pivot transfer from cart to bed. From there attempted to progress patient with gait activities using front wheeled walker including instruction on offloading left lower extremity during stance phase. Patient continues to have difficulty with maintaining toe-touch weight-bearing left lower extremity and may be limited by cognitive impairments with learning and maintaining weight-bearing restrictions at this time. Barriers to a safe discharge home: Barriers [...] Therapeutic functional activity, Neuromuscular re-education, Gait training GYRO MECHANIC Visit Trackin Time Spent with Patient Therapeutic Interventions Therapeutic Activity (min): 20 min Time Tracking Total Timed Units (min): 20 min Total Treatment Time (min): 20 min Javier Sanchez P.T., Giselle, HUBER * Ailyn Reeder M.S., O.T., MOT - 12/12/2023 3:33 PM CDT 12/12/23 1532 Reason Therapy Missed Reason Therapy Missed Medical hold Patient with newly identified DVT as of this morning. AM attempt deferred due to newly identified DVT; attempted to check in with RN prior to PM attempt, however, RN still awaiting shift switch handoff. Will continue to follow and progress plan of care 12/12 as able. Electronically signed by: Ailyn Reeder M.S., Juan.Cecily, RADHA 12/12/23 3:35 PM CDT * Collette Kahn APRN, C.N.P. - 12/12/2023 3:01 PM CDT Mr. Grayson is hospital day 19 following a suspected fall from a ladder. Initial head CT showed a small amount of intraventricular hemorrhage. At that time we had recommended holding DVT chemoprophylaxis until he had a truly stable head CT. Today he underwent repeat imaging which demonstrated interval resolution of the hemorrhage. As a result, it is OK to initiate DVT chemoprophylaxis if the primary service agrees. Follow up has been arranged with neurosurgery in 1 month with [facility]. Please page Chief C service pager [phone]) with questions or concerns. * Hayley Durham L.G.S.W., M.S.Live - 12/12/2023 1:05 PM CDT SUBJECTIVE Social Work communicated with the [facility], [facility], [facility], [facility], [facility], [facility], [facility], AntonellaRachel, [place] Oven Attendant, Service and Nursing regarding discharge planning. Social Work requested Colleen [place] Oven Attendant, to begin process of supporting patient in the home with DME and home health care. OBJECTIVE Patient has been medically ready and awaiting placement. Referrals sent: [facility] - DECLINED (cannot accept 1:1) [facility] - DECLINED (cannot accept 1:1) [facility] (needs to be off 1:1) [facility] - will assess if off of Safety Plan for 24 hours [facility] - will assess if off of Safety Plan for 72 hours [facility] - will assess if off of Safety Plan for 72 hours [facility] - DECLINED (cannot accept 1:1 in their demential unit) [facility] - [facility] (no 's homes in [place] provide short term rehab; [facility] does not take 1:1) [facility] - DECLINED (Safety Plan) [facility] - DECLINED (Safety Plan) [facility] - DECLINED (Safety Plan) [facility] - DECLINED (Safety Plan) [facility] - DECLINED (Safety Plan) [facility] - DECLINED (full) [facility] (they do not accept for short term rehab) [facility] - DECLINED (cannot provide for patient's needs) [facility] -DECLINED (facility full) [facility]DECL[facility] (facility full) [facility] - DECLINED (acuity too high) [facility] - DECLINED (bed not available) [facility] - DECL[facility]ED (full) [facility] - DECLINED (patient needs) [facility] - DECLINED (out of service area) [facility] -DECLINED (services not available) [facility] ASSESSMENT / PLAN ASSESSMENT Patient may now have medical readiness delayed by identification of blood clot. [facility] isassessing on 12/12/23. PLAN Social Work will obtain completed [place] D[place] forms for hospital bed, straight urinary catheters, betadine wipes, urinal, bath/shower chair, and personal cleaning wipes. Social Work will provide completed [place] D[place] forms to Colleen [place] Oven Attendant Patient's desires patient to discharge to care home facility with PT/OT for 0-3 months. She endorses broad referrals throughout [place] and into [place] if necessary. She is interested in nursing homes/critical access hospitals/'s homes. [place] PAS: Conformation is: [id number] Patient's would like patient to return to home with home health care if care home facility is not available. [facility] can assist [facility] with necessary equipment and supplies; this will take 1-2 weeks if all goes well. Patient's is not agreeable to Memory Care placement. Social Work will continue to assist with discharge needs. Social Work will continue to follow to provide support. Aimee Ahuja, M.S.W. 12/12/23 * Lizett Ashraf O.T., O.T.Demetrius, [facility] - 12/12/2023 12:36 PM CDT Occupational Therapy Dysphagia Treatment SUBJECTIVE Patient's Name: Carlos Alberto Grayson Referring/Attending Provider: Kong Mendoza M.D. Medical Diagnosis: Anemia [D64.9] Contusion Buttock Initial [S30.0XXA] Subarachnoid Hemorrhage With Loss Of Conscious Initial (HCC) [S06.6X9A] Fracture Acetabulum Closed Initial Left (HCC) [S32.402A] Fracture Ilium Closed Initial Left (HCC) [S32.302A] History Of Falling [Z91.81] Other Shock (Hemorrhagic Shock) (HCC) [R57.8] Retroperitoneal Hematoma [K68.3] Reason for Referral: Reason for Referral: OT dysphagia-brain Onset Date: 11/23/23 Payor: MEDICARE / Plan: MEDICARE A / Product Type: Medicare / History of Present Illness: History of [...] of the left acetabulum. Family/Caregiver Present: Yes () Patient/Caregiver Goals: no goals stated Patient Comments: Patient eating magic cup upon therpapist arrival and is agreeable to dysphagia treatment. OBJECTIVE Precautions Weight Bearing Status: TTWB LLE - difficulty maintaining this Other Precautions: Fall risk, cognition, aspiration OT Dysphagia Treatment: Observed trials of magic cup and obtained swallowing history from patient'swife Does the patient have a tracheostomy? No. Patient was left in bed at end of session with call light in reach, all needs met and questions answered. Additional Staff Present During Session: [employer]IONAL VICE PRESIDENT [employer] SAL[employer] Assessment Time Dysphagia Assessment Completed: 12:36 pm Clinical Impression/Recommendations: Mr. Grayson was seen for dysphagia treatment. His is present today and able to provide some swallowing history. She reports patient was eating a regular diet with no diet texture restrictions prior to hospitalization. She does report concern for possible reflux as she has noted hoarse voice and coughing following meals prior to hospitalization. She reports he has poor tolerance to spicy foods. He was eating a magic cup upon therapist arrival semi- reclined in bed. Therapist assisted with upright positioning in bed and patient tolerated magic cup with mild throat clearing noted following some bites, unclear if related to oral intake. He declined further oral trials, despite encouragement. Will plan to follow up with him next session to assess readiness to upgrade solid foods. His mainbarrier to diet upgrade is his impulsivity/tendency to take large bites/sips which elevates his choking risk. Recommend continue Level 6 Soft and Bite-sized (SB6) dysphagia diet and thin liquids withadherence to aspiration precautions including supervision during meals and cues for small bites andcues to swallow food in his mouth prior to adding more food. Patient is below their functional baseline with swallowing function and skilled dysphagia services are medically necessary for this patient to safely progress oral intake. CURRENT DIET: Diet Recommendations - Solids: IDDSI Level 6 Soft & Bite-Sized Diet Recommendations - Liquids: IDDSI Level 0 Thin Recommended Form of Meds: With puree, Whole Transitional foods allowed: yes Recommendations: Dysphagia treatment [...] with all oral intake. Progressing Plan Patient unable to verbalize agreement to the plan of care and goals due to mental status or level of consciousness, but family members present to consult and agree with the plan as stated above. Treatment Interventions: Swallow dysfunction treatment OT Dysphagia Duration: Until goals are met or hospital duration OT Dysphagia Amount: 1 visit per day OT Dysphagia Frequency: 3 times per week (Reduced frequency due to progress made) Inpatient OT Dysphagia Received On Date: 12/12/23 OT - Next Inpatient Dysphagia Appointment: 12/13/23 Plan: Continue with current plan Plan Comments: next session: trial tray, assess readiness to upgrade further Re-evaluate: As clinically indicated Treatment interventions may include: Plan for Next Session: Observe a meal, Assess readiness for diet upgrade Time Spent with Patient Therapeutic Interventions Swallow Dysfunction Treatment (min): 13 min Time Tracking Total Treatment Time (min): 13 min For any questions feel free to page OT dysphagia Tuesday through Tuesday 7:00am to 4:00pm: Our service pager at [facility]: [phone] Our service pager at [facility]: [phone] * Em Chino, RTarikN. - 12/12/2023 11:04 AM CDT SUBJECTIVE Discharge planning - new home health care referrals. Home Medical Care - Admitted Since 11/23/2023 Service Provider Request Status Selected Services Address Phone Fax [facility] Pending - Request Sent N/A [address] [facility] [phone] -- Home Health Care Pending - Request Sent N/A [address] [place] [address] [phone] -- [facility] Pending - Request Sent N/A [address] [facility] [address] -- [facility] Pending - Request Sent N/A [address] [facility] [address] [phone] -- [facility] Pending - Request Sent N/A [address] [facility] [phone] -- [facility] - [facility] Pending - Request Sent N/A [address] [facility] [phone] -- [facility] [place] Pending - Request Sent N/A [address], [place] [address] -- [facility] Pending - Request Sent N/A [address], [place] [address] [phone] -- OBJECTIVE Patient is admitted in [facility] 5C-room 124 ASSESSMENT / PLAN ASSESSMENT Patient is not seen at this time, however benefitted from care coordination. district loss prevention manager sent home health care referrals to assist with discharge planning. PLAN Per Social Work note dated 12/09/23, patient's is agreeable to SNF/critical access hospitals/'s homes or home health care if placement is not available. Em Chino R.N. 12/12/23 * Cristal Johnson P.A.-C. - 12/12/2023 5:49 AM CDT Trauma Daily Progress Note (Adult) Admission Date/Time: 11/23/2023 12:47 PM SUBJECTIVE: Mr. Grayson is currently hospital day 19. No acute events overnight. Personally now in nursing report, the patient did not have a good night last night. He was very agitated, locking himself in the bathroom, declining all cares, and wanting to leave. When I saw him with him this morning, he is doing well. He has no complaints. Sitting comfortably in bed with a [employer] at bedside. Vital Signs: BP (!) 128/52 (BP Location: Left arm;Upper, Patient Position: Semi-recumbent) Pulse 74 Temp 36.6 ??C (Oral) Resp 16 Ht 180.3 cm Wt 93.4 kg SpO2 96% BMI 28.73 kg/m?? Temperature: [36.4 ??C-37.3 ??C] 36.6 ??C Resp Rate: [16-18] 16 Blood Pressure: (108-144)/(50-66) 128/52 SpO2: [93 %-98 %] 96 % Pulse Rate: [69-89] 74 I/O 12/09 0701 12/10 0700 12/10 0701 12/11 0700 P.O. 674 470 Total Intake(mL/kg) 674 (7.2) 470 (5) Urine (mL/kg/hr) 1475 (0.7) 525 (0.2) Stool 0 Total Output 1475 525 Net -801 -55 Unmeasured Urine Occurrence 1 x Unmeasured Stool Occurrence 2 x PHYSICAL EXAM: Vitals and nursing note reviewed. Cardiovascular Rate and Rhythm: Normal rate and regular rhythm. Pulmonary Effort: Pulmonary effort is normal. Breath sounds: Normal breath sounds. Abdominal Palpations: Abdomen is soft. Comments: Wounds appear well approximated, healing well. Inna placed. No erythema or purulent drainage. Musculoskeletal General: Normal range of motion. Skin General: Skin is warm and dry. Neurological General: No focal deficit present. ASSESSMENT / PLAN: 12/12/2023: Patient doing well. Continue to encourage good sleep hygiene and sleep enhancements. He did have a inna placed to abdominal incision on 11/25/2023 for ORIF. Inna were used to close the wounds. On my exam today, they appeared well healed well approximated without purulent drainage. We will discuss with OTS 1 team when they would like the inna removed and they said they willmove them on 12/16/2023. He is on DVT prophylaxis enoxaparin. He does have a known acute soleal vein DVT that was diagnosed on 11/28/2023. There was initial pause in his prophylactic enoxaparin given that was concern for altered mental status given his know intracranial bleed on 11/30/23. Next day CT was obtained and he wasresumed as it was stable. There was a discussion this morning regarding the usage of therapeutic anticoagulation. The question arises, can the patient be started on therapeutic anticoagulation given his head bleed? A repeat CT per Neurosurgery was obtained today and patient appears to be stable. Follow up with Chief C Neurosurgery. 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) - PMR TBI consulted who will continue following and assessing #5 Thrombosis Deep Vein Lower Extremity Left (HCC) Acute soleal vein DVT; left leg - Currently on Lovenox 30 mg bid for DVT chemoprophylaxis - BLE US (11/27): acute DVT LLE soleal vein - Repeat US Bilateral LE (12/04): unchanged acute DVT in the left soleal vein #6 Fracture Rib One Closed Initial Left #7 Atelectasis #8 Effusion Pleural Nondisplaced, left 6th rib fracture - Started on rib fracture protocol -difficult to follow secondary to cognition - Continue with encouraging pulmonary hygiene as able (IS/deep breathing/coughing/CPAP) - No follow up required in the LP clinic for the one rib fracture #9 Fracture Acetabulum Other Closed Initial Left ([facility]) #10 Fracture Pelvis Multiple Closed With Stable Disruption Pelvis Ring Initial ([facility]) #11 Fracture Ilium Closed Initial Left ([facility]) Multiple comminuted fractures of the left anterior [...] not fully understand weight bearing restrictions and a2 assist currently - two falls with assistance to ground slowly without heavy strike to ground over past few days secondary to trying to get up on his own impulsively - has one to one sitter at bedside - Pelvis x-rays obtained (12/03): surgical hardware intact - Davol drain and vac removed 12/04 - at discharge OTS f/u, they will order #12 Anemia Posthemorrhagic Acute (Blood Loss Anemia) [...] - Aspiration precautions & medications with purees -takes very large bites/multiple bites prior to swallowing, [...] Pain: Tylenol, Lidoderm patch - Disposition: SNF pending Please feel free to page the Trauma Service at [phone] with any questions in regards to the plan of care. * Cristal Johnson P.A.-C. - 12/11/2023 5:56 AM CDT Trauma Daily Progress Note (Adult) Admission Date/Time: 11/23/2023 12:47 PM SUBJECTIVE: Mr. Grayson is currently hospital day 18. No acute events overnight. Per nursing report, he was onvideo monitor that was started safety and to help wean patient off one to one. No other new changesreported overnight. He is doing well. He states that he had no issues sleeping last night. He denies chest pain, shortness of breath, abdominal pain, issues with bowel movements or urinary voiding. He states that he would like to get his jeans in his shoes. I discussed with him that he does have an ultrasound tomorrowand that hopefully we can find him a care home facility. He is understanding. Vital Signs: BP (!) 108/50 Pulse 83 Temp 36.9 ??C (Axillary) Resp 16 Ht 180.3 cm Wt 93.4 kg SpO2 93% BMI 28.73 kg/m?? Temperature: [36.4 ??C-37.3 ??C] 36.9 ??C Resp Rate: [16-18] 16 Blood Pressure: (105-125)/(50-66) 108/50 SpO2: [93 %-98 %] 93 % Pulse Rate: [71-89] 83 I/O 12/08 0701 12/09 0700 / 0701 12/10 0700 P.O. 1200 624 Total Intake(mL/kg) 1200 (12.8) 624 (6.7) Urine (mL/kg/hr) 1325 (0.6) 1475 (0.7) Stool 0 Total Output 1325 1475 Net -125 -851 Unmeasured Urine Occurrence 3 x 1 x Unmeasured Stool Occurrence 2 x PHYSICAL EXAM: Vitals and nursing note reviewed. HENT Head: Normocephalic. Cardiovascular Rate and Rhythm: Normal rate and regular rhythm. Pulmonary Effort: Pulmonary effort is normal. Breath sounds: Normal breath sounds. Abdominal General: Abdomen is flat. Bowel sounds are normal. Palpations: Abdomen is soft. Comments: Well approximated and well healed incision to the left abdomen closed with inna. Well-healed and well-approximated incision to the mid lower abdomen closed with inna. No purulence. Musculoskeletal General: No swelling. Normal range of motion. Neurological Mental Status: He is alert. ASSESSMENT / PLAN: 12/11/2023: patient doing well. Continue to encourage good sleep hygiene and sleep enhancements. He has an LLE ultrasound for tomorrow AM as he has a DVT. Currently anticoagulated with Enoxaparin. He did have a inna placed to abdominal incision on 11/25/2023 for ORIF. [place] were used to close the wounds. On my exam today, they appeared well healed well approximated without purulent drainage. We will discuss with OTS 1 team when they would like the inna removed. Mechanism of Injury: Fell from a 6 ft ladder -11/23: SAS completed -11/24: TTS completed #1 History Of Falling -Care management consulted; SNF referrals pending -PMR PT/OT consulted, following -patient recently switched from one to one to a close observation so we can transition from hospital to SNF #2 Subarachnoid Hematoma Trauma Without Loss Of [...] 30 mg Lovenox bid on 11/29 evening and he was noted to have more significant altered mental status than usual the morning of 11/30. 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) - PMR TBI consulted who will continue following and assessing #5 Thrombosis Deep Vein Lower Extremity Left (HCC) Acute soleal vein DVT; left leg - Currently on Lovenox 30 mg bid for DVT chemoprophylaxis - BLE US (11/27): acute DVT LLE soleal vein - Repeat US Bilateral LE (12/04): unchanged acute DVT in the left soleal vein -repeat u/s ordered for 12/12/2023 #6 Fracture Rib One Closed Initial Left #7 Atelectasis #8 Effusion Pleural Nondisplaced, left 6th rib fracture - Started on rib fracture protocol -difficult to follow secondary to cognition - Continue with encouraging pulmonary hygiene as able (IS/deep breathing/coughing/CPAP) - No follow up required in the [facility] clinic for the one rib fracture #9 Fracture Acetabulum Other Closed Initial Left (HCC) #10 Fracture Pelvis Multiple Closed With Stable Disruption Pelvis Ring Initial ([facility]) #11 Fracture Ilium Closed Initial Left ([facility]) Multiple comminuted fractures of the left anterior & posterior pubic rami, acetabulum & iliac wing extending into the left SI joint w/ hemorrhage noted in the left retroperitoneum - OTS- 1 consulted - OR (11/24): ORIF of the left associated both column acetabular fracture (Dr. Higuera) - TTWB LLE -inna used to close wounds on 11/25/2023. -touching base with OTS-1 for when they would like inna removed. - PMR PT/OT consulted; due to cognition does not fully understand weight bearing restrictions and a2 assist currently - two falls with assistance to ground slowly without heavy strike to ground over past few days secondary to trying to get up on his own impulsively - has one to one sitter at bedside - Pelvis x-rays obtained (12/03): surgical hardware intact - Davol drain and vac removed 12/04 - at discharge OTS f/u, they will order #12 Anemia Posthemorrhagic Acute (Blood Loss Anemia) [...] - Aspiration precautions & medications with purees -takes very large bites/multiple bites prior to swallowing, [...] restriction to LLE, toe touch - VTE Prophylaxis/Therapy: Enoxaparin 30 mg BID - Bowel Regimen: Dulcolax, milk of magnesia, MiraLax, Senokot - Void: in and out if he struggles with spontaneous voiding - Pain: Tylenol, Lidoderm patch - Disposition: SNF pending Please feel free to page the Trauma Service at [phone] with any questions in regards to the plan of care. * Ruth Zuluaga P.A.-C. - 12/10/2023 1:07 PM CDT Geriatrics Consult - Progress Note SUBJECTIVE Mr. Pringle was seen and evaluated by the Geriatric Medicine consult service this morning. No new concerns. Has been sleeping well. Forgetful and disoriented per baseline, but pleasant and agreeableto cares overall. I have reviewed the current medication list. OBJECTIVE VITAL SIGNS Temperature: [36.4 ??C-37.1 ??C] 36.4 ??C Resp Rate: [17-18] 18 Blood Pressure: (105-122)/(51-66) 117/66 SpO2: [93 %-97 %] 95 % Pulse Rate: [71-89] 89 PHYSICAL EXAM General: No acute distress. Attempting to use the urinal. Skin: Warm, pink, dry, and well perfused. HEENT: Head normocephalic and atraumatic. Conjunctivae clear and sclerae anicteric. Very hard of hearing, hearing aids not functioning. Lungs: Respirations even and non-labored on room air. Neuro: Attention intact. Alert, not oriented to place/time/situation at baseline. Generally answersquestions appropriately. DIAGNOSTICS I have independently reviewed the labs, imaging, diagnostics, ECGs, and the medical record ASSESSMENT / PLAN Mr. Grayson is hospitalized on [facility] Trauma for evaluation and management of: Fracture Ilium Closed Initial Left (HCC) # Fall from a ladder on 11/22 # Subarachnoid hemorrhage and left scalp contusion on background of chronic small vessel ischemic changes # Nondisplaced left-sided rib fracture of 6th rib, complex left pelvic fractures w/ associated leftretroperitoneal and pelvic hemorrhage, left gluteus and iliopsoas intramuscular hematomas, displacement of the bladder and left ureter 2/2 blood product, left gluteal fat contusion w/ hemorrhage # s/p ORIF left acetabulum on 11/24 # ABLA # Cognitive impairment w/ short term memory loss (likely Alzheimers (FAST 4) 2/2 family history andprominent amnestic component relative to executive function) # Markedly trabeculated bladder on CT A/P w/ slight enlarged prostate (bladder morphology likely 2/2 outlet obstruction) # Small incidentally noted pulmonary nodules # Macular degeneration and cataracts # Hard of hearing Mr. Carlos Alberto Grayson is an 83 y.o. male who presented to the [facility] Emergency Department(ED) after suffering a fall from a ladder while attempting to repair a leak in his roof. He has significant medical comorbidities of cognitive impairment, BPH, macular degeneration, cataracts, [place]. Trauma survey was notable for a subarachnoid hemorrhage and left scalp contusion, nondisplaced left-sided rib fracture of 6th rib, complex left pelvic fractures w/ associated left retroperitoneal andpelvic hemorrhage, left gluteus and iliopsoas intramuscular hematomas, displacement of the bladder and left ureter 2/2 intra-abdominal blood products blood product, left gluteal fat contusion w/ hemorrhage. Suffered from hemorrhagic shock requiring 7 units PRBCs, 2 units cell Saver, 2 units FFP, 2 units platelets. Now stabilized. Hospitalization was c/b development of an acute left soleal DVT, acute hypoxic respiratory failure,and agitated delirium requiring IA, olanzapine, and non- violent restraints. Family has elected for discharge to SNF so SW has been involved and referrals have been sent. RECOMMENDATIONS: Appears to be intermittently voiding spontaneously when given the opportunity but is requiring I&O for larger volumes of 400-500 cc. Continue to monitor. Aim for a schedule of bladder scans at 10a, 4p, 10p. Goal post void residual <400 cc. Continue new tamsulosin and finasteride. Continue to offer urinal multiple times per day and before straight cathing. Arrange for outpatient Urology f/u. Discuss retrial of rosado with Mr. Grayson's . Continue ramelteon, sleep enhancement . Delirium prevention: Promote routine sleep/wake cycle. Initiate sleep enhancement protocol. Lights on, blinds open during day; dark, calm environment at night. Limit interruptions overnight. Ensure patient has eyeglasses, hearing aids, dentures, assistive devices. Encourage early safe mobilization and activity throughout the day. Re-orient patient as needed. Ensure clock in view, utilize whiteboard. Engage family to facilitate reorientation. Discontinue tethers (rosado catheter, IV, oxygen, etc.) as appropriate. The above plan of care was discussed with Dr. Barry Boston, HIM performance management consultant. I personally spent a total of 35 minutes providing and coordinating care today. Thank you for the opportunity to care for this patient. We will sign off at this time. Please page the Geriatrics Consult Service at [phone] with any questions or concerns. * Cristal Johnson P.A.-C. - 12/10/2023 9:10 AM CDT Trauma Daily Progress Note (Adult) Admission Date/Time: 11/23/2023 12:47 PM SUBJECTIVE: Mr. Grayson is currently hospital day 17. No acute events overnight. Patient is sitting comfortably in bedside chair, only complains of a slight headache. Otherwise no abdominal pain. Tells me he isurinating and having normal bowel movements. One-to-one nurse sitting at bedside. Nursing staff to report to me that he has become agitated over the course of today, uncooperative and has declined his medications. Nursing staff did report to me that he had some difficulty sleepinglast night. With that, the goal is to enhance his sleeping during the night. Vital Signs: BP 117/66 (BP Location: Left arm;Upper, Patient Position: Sitting) Pulse 89 Temp 36.4 ??C (Oral) Resp 18 Ht 180.3 cm Wt 93.4 kg SpO2 95% BMI 28.73 kg/m?? Temperature: [36.4 ??C-37.2 ??C] 36.4 ??C Resp Rate: [17-18] 18 Blood Pressure: (105-129)/(51-66) 117/66 SpO2: [93 %-98 %] 95 % Pulse Rate: [71-89] 89 I/O 12/07 0701 12/08 0700 12/08 0701 12/09 0700 12/09 0701 12/10 0700 P.O. 1260 1200 Total Intake(mL/kg) 1260 (13.5) 1200 (12.8) Urine (mL/kg/hr) 2250 (1) 1325 (0.6) 100 (0.5) Stool 0 0 Total Output 2250 1325 100 Net -990 -125 -100 Unmeasured Urine Occurrence 3 x Unmeasured Stool Occurrence 1 x 2 x PHYSICAL EXAM: Vitals and nursing note reviewed. HENT Head: Normocephalic. Cardiovascular Rate and Rhythm: Normal rate and regular rhythm. Pulmonary Effort: Pulmonary effort is normal. Breath sounds: Normal breath sounds. Abdominal General: Abdomen is flat. Bowel sounds are normal. Palpations: Abdomen is soft. Musculoskeletal General: No swelling. Normal range of motion. Neurological Mental Status: He is alert. ASSESSMENT / PLAN: - Diet: adult dysphagia, thin (TNO), soft and bite sized (SB6) - Activity/Exercise: up with assistance, weight bearing restriction to LLE, toe touch - VTE Prophylaxis/Therapy: Enoxaparin 30 mg BID - Bowel Regimen: Dulcolax, milk of magnesia, MiraLax, Senokot - Void: in and out - Pain: Tylenol, Lidoderm patch - Disposition: SNF pending Mechanism of Injury: Fell from a 6 ft ladder -11/23: SAS completed -11/24: TTS completed #1 History Of Falling -Care management consulted; SNF referrals pending -PMR PT/OT consulted, following -patient is currently one-to-one #2 Subarachnoid Hematoma Trauma Without Loss Of [...] 30 mg Lovenox bid on 11/29 evening and he was noted to have more significant altered mental status than usual the morning of 11/30. 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) - PMR TBI consulted he will continue following and assessing #5 Thrombosis Deep Vein Lower Extremity Left (HCC) Acute soleal vein DVT; left leg - Currently on Lovenox 30 mg bid for DVT chemoprophylaxis - BLE US (11/27): acute DVT LLE soleal vein - Repeat US Bilateral LE (12/04): unchanged acute DVT in the left soleal vein -repeat u/s ordered for 12/12/2023 #6 Fracture Rib One closed Initial Left #7 Atelectasis #8 Effusion Pleural Nondisplaced, left 6th rib fracture - Started on rib fracture protocol -difficult to follow secondary to cognition - Continue with encouraging pulmonary hygiene as able (IS/deep breathing/coughing/CPAP) - No follow up required in the LP clinic for the one rib fracture #9 Fracture Acetabulum Other Closed Initial Left ([facility]) #10 Fracture Pelvis Multiple Closed With Stable Disruption Pelvis Ring Initial ([facility]) #11 Fracture Ilium Closed Initial Left ([facility]) Multiple comminuted fractures of the left anterior & posterior pubic rami, acetabulum & iliac wing extending into the left SI joint w/ hemorrhage noted in the left retroperitoneum - OTS- 1 consulted - OR (11/24): ORIF of the left associated both column acetabular fracture (Dr. 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 ([facility]) #15 Encephalopathy Metabolic #16 Delirium - Geriatric Medicine consulted; following -note on 12/10/23 with suggestions -8 mg Ramelteon daily and 5 mg melatonin prn ordered - Continuing with delirium prevention and sleep enhancement as able #17 Dysphagia - OT Dysphagia consulted; following - Currently on a IDDSI Level 6 Soft & Bite sized with thin liquids - Aspiration precautions & medications with purees -takes very large bites/multiple bites prior to swallowing, recommending supervision with meals #18 Retention Urinary - Started on Flomax & Finasteride this admission and have increased to 0.8 mg - On a voiding schedule; will increase to every 6 hours to trial voiding and then bladder scanning and straight cathing per Geriatric recommendations - goal is to post void residual <400 cc -offer urinal multiple times per day and before straight cathing -discuss retrial of rosado with his - consider Urology consult if continues to not have improvement in spontaneously voiding in the upcoming days Please feel free to page the Trauma Service at [phone] with any questions in regards to the plan of care. * Barb Davies M.D. - 12/09/2023 3:39 PM CDT Trauma Daily Progress Note ([id number]) Admission Date/Time: 11/23/2023 12:47 PM SUBJECTIVE Patient was reportedly a little bit agitated overnight, which resolved following I/O catheterization. This morning, he denies any significant concerns. Bowel movement reported in the past 24 hours Temperature: [36.5 ??C-37.2 ??C] 37.2 ??C Resp Rate: [16-18] 17 Blood Pressure: (114-141)/(50-64) 117/52 SpO2: [94 %-98 %] 98 % Pulse Rate: [74-91] 74 I/O 12/06 0701 12/07 0700 12/07 0701 12/08 0700 12/08 0701 12/09 0700 P.O. 600 1260 600 Total Intake(mL/kg) 600 (6.4) 1260 (13.5) 600 (6.4) Urine (mL/kg/hr) 2175 (1) 2250 (1) 250 (0.3) Stool 0 0 0 Total Output 2175 2250 250 Net -1575 -990 +350 Unmeasured Stool Occurrence 3 x 1 x 1 x OBJECTIVE PHYSICAL EXAM: Overall Appearance: Resting in bed comfortably. No acute distress. Cooperative and pleasant. Cardiovascular: Normal rate and rhythm. Thorax & Lungs: Regular effort on room air. Abdomen: Soft, nontender, nondistended. Extremities: Warm well perfused. Neurosensory/Psych: Cooperative and pleasant. Follows commands. ASSESSMENT / PLAN 12/08: Patient is doing well. He does continue to require intermittent I/O catheterization for urinary retention. We will continue voiding trials. Continue weekly left lower extremity ultrasounds for soleal vein DVT monitoring. Nursing staff will attempt to wean him off one-to-one observation, whichwas started due to patient falling/having assisted falls during this admission. Disposition is pending amenable facility. Today's Plan: - No major changes in the plan of care today - Consider repeating lower extremity bilateral vein ultrasound on 12/11 if patient remains here, tomonitor for soleal vein DVT - Continue to optimize sleep/wake cycle - [...] the pt based on the stability of repeat ultrasound #6 Fracture Rib One Open Initial Left #7 Atelectasis #8 Effusion Pleural Nondisplaced, left 6th rib fracture - Started on rib fracture protocol but unable to participate d/t cognition - Continue with encouraging pulmonary hygiene as able (IS/deep breathing/coughing/CPAP) - No follow up required in the LP clinic for the one rib fracture #9 Fracture Acetabulum Other Closed Initial Left ([facility]) #10 Fracture Pelvis Multiple Closed With Stable Disruption Pelvis Ring Initial ([facility]) #11 Fracture Ilium Closed Initial Left ([facility]) Multiple comminuted fractures of the left anterior [...] or symptoms of bleeding - Check CBC if clinically indicated #14 Major Neurocognitive Disorder Due [...] implemented - Initiated sleep enhancement protocol - ramelteon 8 mg at bedtime #17 Dysphagia - OT Dysphagia consulted; following [...] in the upcoming days #19 Discharge Planning Patient and healthcare team members are in agreement that pursuing care home facility placement to focus on rehabilitation. Vision is does add that she would limit his admission to three-month and then wishes to take him home to [place] with family support as well as home health care if needed. Nursing staff will attempt to wean close observation as safely able in the context of 2 recent guided falls. Please page the [facility]-Trauma Service at [phone] with any questions in regards to the plan of care. * Pippa Lee O.T., O.T.D. - 12/09/2023 [...] O.T., O.TDominic * Maria Del Carmen Diaz, P.TTarikA. - 12/09/2023 12:17 PM CDT Physical Therapy [...] cues and switched to left foot on GYRO MECHANIC's foot to monitor weight bearing and verbal [...] Therapeutic functional activity, Neuromuscular re-education, Gait training GYRO MECHANIC Visit Trackin Time Spent with Patient Therapeutic Interventions Therapeutic Activity (min): 20 min Therapeutic Exercise (min): 10 min Time Tracking Total Timed Units (min): 30 min Total Treatment Time (min): 30 min Maria Del Carmen Diaz P.T.ATarik * Hayley Durham L.G.SVianey, M.S.W. - 12/09/2023 9:33 AM CDT SUBJECTIVE Social Work communicated with [facility] and [place]. Social Work sent referral to [facility] [place], [place] (fax: [phone]). Social Work communicated with [facility].Social Work communicated with [facility]. Social Work communicated with Nursing and Service regarding safety plan. Social Work left multiple voicemails with [facility] regarding admission assessment. Social Work left voicemail for [facility] [place] O[facility] Att[facility]. Social Work left voicemail at [facility]. Social Work left voicemail at [facility]. SocialWork resent failed fax to [facility] and then called to verify working fax number. This recent fax also failed and Social Work left a voicemail for hospice social worker requesting verification of fax number or new number. OBJECTIVE Patient is medically ready for discharge and awaiting placement. Referrals sent: [facility] Home Health [facility] - will assess if off of Safety Plan [facility] [address] [facility]CO [facility] A[facility] - DECLINED (Safety Plan) [facility] ACO - DECLINED (Safety Plan) [facility] - DECLINED (Safety Plan) [facility] - DECLINED (Safety Plan) [facility] - DECLINED (Safety Plan) [facility] ACO - DECLINED (full) [facility]-DECL[facility] (they do not accept for short term rehab) [facility] - DECLINED (cannot provide for patient's needs) [facility] -DECLINED (facility full) [facility]DECL[facility] (facility full) [facility] - DECLINED (acuity too high) [facility] - DECLINED (bed not available) [facility] - [facility]CLINED (full) [facility] - DECLINED (patient needs) ASSESSMENT / PLAN ASSESSMENT Patient's cognitive needs are a barrier to care home placement. 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 [place] is able to support more than 2 hours of home health care services weekly. PLAN Patient's desires patient to discharge to care home facility with PT/OT for 0-3 months. She endorses broad referrals throughout [place] and into [place] if necessary. She is interested in nursing homes/critical access hospitals/'s homes. [place] PAS: Conformation is: [id number] Patient's would like patient to return to home with home health care if care home facility is not available. [facility] can assist [facility] with necessary equipment and supplies. Patient's is not agreeable to Memory Care placement. Social Work will continue to assist with discharge needs. Social Work will continue to follow to provide support. Aimee Ahuja, M.S.W. 12/09/23 * Ruth Zuluaga P.A.-C. - 12/09/2023 7:33 AM CDT Geriatrics Consult - Progress Note SUBJECTIVE Mr. Pringle was seen and evaluated by the Geriatric Medicine consult service this morning. He was resting in bed and in no acute distress. He was quite sleepy but woke up, greeted the team, and had no concerns. REGIONAL VICE PRESIDENT SURGICAL SALES at the bedside reports he slept poorly last night but was bright eyed this morning and had a long conversation with his . They are letting him nap and then will keep him awake forthe rest of the day. Mr. Pringle was seen again this afternoon after spending a significant amount of time in the chair. He was just returning to the bed via ceiling lift as his coccyx was sore from sitting in the chair. He had no concerns and stated that he was enjoying the time that he was spending with the REGIONAL VICE PRESIDENT SURGICAL SALES at the bedside. I have reviewed the current medication list. OBJECTIVE VITAL SIGNS Temperature: [36.5 ??C-36.7 ??C] 36.7 ??C Resp Rate: [18] 18 Blood Pressure: (129-141)/(59-64) 129/64 SpO2: [95 %-96 %] 95 % Pulse Rate: [76-86] 86 PHYSICAL EXAM General: no acute distress. Sleeping but awakes to voice and light touch. Skin: Warm, pink, dry, and well perfused. HEENT: Head normocephalic and atraumatic. Conjunctivae clear and sclerae anicteric. Very hard of hearing, hearing aids not functioning. Heart: RRR without murmurs, rubs, or gallops. No significant lower extremity edema. Lungs: CTAB without crackles, wheezes, rhonchi or rales. Respirations even and non-labored on room air. Abdomen: Soft, nontender, nondistended. Normoactive bowel sounds x 4 quadrants. Neuro: Attention intact. Alert, not oriented to place/time/situation at baseline. Generally answersquestions appropriately. DIAGNOSTICS I have independently reviewed the labs, imaging, diagnostics, ECGs, and the medical record ASSESSMENT / PLAN Mr. Grayson is hospitalized on [facility] Trauma for evaluation and management of: Fracture Ilium Closed Initial Left (HCC) # Fall from a ladder on 11/22 # Subarachnoid hemorrhage and left scalp contusion on background of chronic small vessel ischemic changes # Nondisplaced left-sided rib fracture of 6th rib, complex left pelvic fractures w/ associated leftretroperitoneal and pelvic hemorrhage, left gluteus and iliopsoas intramuscular hematomas, displacement of the bladder and left ureter 2/2 blood product, left gluteal fat contusion w/ hemorrhage # s/p ORIF left acetabulum on 11/24 # ABLA # Cognitive impairment w/ short term memory loss ( likely Alzheimers (FAST 4) 2/2 family history and prominent amnestic component relative to executive function) # Markedly trabeculated bladder on CT A/P w/ slight enlarged prostate (bladder morphology likely 2/2 outlet obstruction) # Small incidentally noted pulmonary nodules # Macular degeneration and cataracts # Hard of hearing Mr. Carlos Alberto Grayson is an 83 y.o. male who presented to the [facility] Emergency Department(ED) after suffering a fall from a ladder while attempting to repair a leak in his roof. He has significant medical comorbidities of cognitive impairment, BPH, macular degeneration, cataracts, [place]. Trauma survey was notable for a subarachnoid hemorrhage and left scalp contusion, nondisplaced left-sided rib fracture of 6th rib, complex left pelvic fractures w/ associated left retroperitoneal andpelvic hemorrhage, left gluteus and iliopsoas intramuscular hematomas, displacement of the bladder and left ureter 2/2 intra-abdominal blood products blood product, left gluteal fat contusion w/ hemorrhage. Suffered from hemorrhagic shock requiring 7 units PRBCs, 2 units cell Saver, 2 units FFP, 2 units platelets. Now stabilized. Hospitalization was c/b development of an acute left soleal DVT, acute hypoxic respiratory failure,and agitated delirium requiring IA, olanzapine, and non- violent restraints. RECOMMENDATIONS: Appears to be intermittently voiding spontaneously when given the opportunity but is requiring I&O for larger volumes of 400-500 cc. Continue to monitor. Aim for a schedule of bladder scans at 10a, 4p, 10p. Goal post void residual <400 cc. Continue new tamsulosin and finasteride. Continue to offer urinal multiple times per day and before straight cathing. Arrange for outpatient Urology f/u. Discuss retrial of rosado with Mr. Grayson's . Continue ramelteon, sleep enhancement Delirium prevention: Promote routine sleep/wake cycle. Initiate sleep enhancement protocol. Lights on, blinds open during day; dark, calm environment at night. Limit interruptions overnight. Ensure patient has eyeglasses, hearing aids, dentures, assistive devices. Encourage early safe mobilization and activity throughout the day. Re-orient patient as needed. Ensure clock in view, utilize whiteboard. Engage family to facilitate reorientation. Discontinue tethers (rosado catheter, IV, oxygen, etc.) as appropriate. The above plan of care was discussed with Dr. Barry Boston, HIM performance management consultant. I personally spent a total of 50 minutes providing and coordinating care today. Thank you for the opportunity to care for this patient. We will continue to follow with you. Pleasepage the Geriatrics Consult Service at [phone] with any questions or concerns. * Lizett Ashraf O.T., O.T.D., VINITA - 12/08/2023 4:50 PM CDT OT dysphagia monitor note: Nursing reports no swallowing concerns with Mr. Grayson this date and dysphagia therapist reportedgood tolerance to modified diet of Level 6 Soft and Bite-sized (SB6) and thin liquids on 12/04. Mr. [...] not acutely ill, no apparent distress. ENT: [place] Lungs: Normal rate and effort Heart: No extremity edema. Abdomen: nondistended, nontender Mental: Attention intact (completed backwards days) RASS 0. Converses well. Alert. Answers questions generally appropriately. Was telling nursing Jf did not want him to get catheterized. DIAGNOSTICS I have independently reviewed labs over 24 hrs. ASSESSMENT / PLAN Mr. Grayson is hospitalized on [facility] Trauma for evaluation and management of: Fracture Ilium Closed Initial Left (HCC). 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 Increase mobility to match ability. Frequent reorientation. Provide moderate level of social and cognitive stimulation. Treat dehydration and constipation. Nonpharmacologic sleep promotion strategies. The above plan of care was discussed with Dr. Coello, HIM performance management consultant. I personally spent a total of 35 minutes providing and coordinating care today. Thank you for the opportunity to care for this patient. We will continue to follow with you. Pleasepage the Geriatrics Consult Service at [phone] with any questions or concerns. * Fidelina [...] and not believing he needs them; however, REGIONAL VICE PRESIDENT SURGICAL SALES confirmed he is still drinking them. Will [...] 1357 GI Function: Last BM Date: 12/08/23, [place] Stool Chart: Type 4: Like a sausage or snake, smooth and soft, Passing Flatus: Yes Weight since admission: Height: 180.3 cm Admission Weight: 86.3 kg (11/23/2023) Current Weight: 93.4 kg (11/30/2023) BMI (Calculated): 28.7 kg/m?? Weight change since admission: 7.1 kg Net IO Since Admission: -2,395.43 mL [12/08/23 1125] Estimated Needs: Total Calorie Needs: 7497-9648 calories/day Method to Estimate Energy Needs: kcal/kg [...] about patient's nutritional care please contact pager [phone] on weekdays 07:30-16:00 or [phone] on weekends/holidays ([facility]). * Maria Del Carmen Diaz, P.T.A. - [...] cues and switched to left foot on GYRO MECHANIC's foot to monitor weight bearing and verbal [...] Therapeutic functional activity, Neuromuscular re-education, Gait training GYRO MECHANIC Visit Trackin Time Spent with Patient Therapeutic Interventions Therapeutic Activity (min): 20 min Therapeutic Exercise (min): 10 min Time Tracking Total Timed Units (min): 30 min Total Treatment Time (min): 30 min Maria Del Carmen Diaz P.TYenny * Chavez Ashby Jr., LOC, C.N.P., M.S.N. - 12/08/2023 8:37 AM CDT Trauma Daily Progress Note ([id number]) Admission Date/Time: 11/23/2023 12:47 PM SUBJECTIVE No [...] 0659 12/08/23 07 - 12/09/23 0659 Shift 2103-5433 3471-1688 9123-3567 24 Hour Total 8912-0442 3149-1647 9475-6281 24 Hour Total INTAKE P.O. 600 600 [...] #9 Fracture Acetabulum Other Closed Initial Left ([facility]) #10 Fracture Pelvis Multiple Closed With Stable Disruption Pelvis Ring Initial ([facility]) #11 Fracture Ilium Closed Initial Left ([facility]) Multiple comminuted fractures of the left anterior [...] planning. All are in agreement that pursuing care home facility placement to focus on rehabilitation. Vision is does add that she would limit his admission to three-month and then wishes to take him home to [place] with family support as well as home health care if needed. I reviewed these updates with social work as well as the charge nurse to continue pursuing placement options in the area and we will look to weaned towards closed observation as safely able in the context of 2 recent guided falls. Please feel free to page me at [phone] between [phone]. If unable to reach me please page the [facility]-Trauma Service at [phone] with any questions in regards to the plan of care. * Alexi Khan M.D. - 12/07/2023 7:24 PM CDT I saw and examined the patient along with the resident/EDITING CLERK-PA team and agree with the findings and [...] transfer to SNF. Alexi Khan MD, FACS Gun Synchronizer spinner hydraulic, [facility] [employer] Division of Trauma, Critical Care and General Surgery; Department of Surgery (Pager) (office) fax [email or web address] * Alexi Hahn Chaplain - 12/07/2023 10:45 AM CDT [facility] Spiritual Care Consult Note Patient: Carlos Alberto Grayson Age:83 y.o. [id number] Reason(s) for encounter: Spiritual Care contact for ongoing spiritual care. Summary: I was able to meet with Carlos Alberto Grayson . At the time of the visit the patient said that he had only been in the hospital for 30 minutes. He seemed pleasantly confused. He did engage with the timber cruiser on a spiritual conversation level. A prayer was said at the bedside. Stoner Hand Jamil was present and his REGIONAL VICE PRESIDENT SURGICAL SALES was in the room with him. Spiritual Assessment Zoroastrianism Identification / Spiritual Practices: He was a Restoration and he seems to have a Mosque background. Spiritual Care interventions: Facilitated oriental orthodox/spiritual practices (prayer, blessing, sacred texts, oriental orthodox item) with theaim to reinforce patient's spiritual wellness and connection with source of sacredness. Spiritual Care outcomes: Patient/family expressed feeling comforted by prayer Patient/family was appreciative of spiritual care support. Spiritual Care Plan / Recommendations: Will remain available for spiritual care as needed or requested. Chaplains can be contacted by paging [phone] ([facility] Alejandra) or [phone] (Voodoo). * Nurys Cifuentes P.A.-C. - 12/07/2023 10:25 [...] not acutely ill, no apparent distress. ENT: [place] Lungs: Normal rate and effort Heart: No extremity edema. Abdomen: nondistended, nontender Mental: Attention intact (completed backwards days and months May-Mar) No evidence of disorganized thinking. RASS 0. Converses well. DIAGNOSTICS I have independently reviewed labs over 24 hrs. ASSESSMENT / PLAN Mr. Grayson is hospitalized on [facility] Trauma for evaluation and management of: Fracture Ilium Closed Initial Left (HCC). 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 Increase mobility to match ability. Frequent reorientation. Provide moderate level of social and cognitive stimulation. Treat dehydration and constipation. Nonpharmacologic sleep promotion strategies. The above plan of care was discussed with Dr. Coello, HIM performance management consultant. I personally spent a total of 35 minutes providing and coordinating care today. Thank you for the opportunity to care for this patient. We will continue to follow with you. Pleasepage the Geriatrics Consult Service at [phone] with any questions or concerns. * Hayley Durham L.G.SPeggy., M.S.W. - 12/07/2023 10:03 AM CDT SUBJECTIVE Social Work contacted [employer] regarding insurance coverage listed on patient's facesheet and . Social Work communicated with [facility], and [facility].Social Work resent referral package to [facility], and [facility]. Social Work sent referrals to [facility], [facility], [facility], [facility], and [facility]. Social Work spoke with patient's on [...] home. She will be available to provide 10/01 presence between herself, paid help, VA home health care (20+ hours per week), and confucianism friends. 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 She is comfortable with cathing, hoier lifts, slings, wheelchairs, etc. The [facility] can assist patient with providing a hoier lift, sling, wheelchairs, walkers, incontinence supplies, and hospital bed. This can take some time to arrange, perhaps up to one month. Patient's will contact [facility] regarding this on 12/08/23. Patient's is [...] to await safe discharge plan. Referrals sent: [facility] Assisted Living and Home Health [facility] - will assess if off of Safety Plan [facility] [address] [facility]CO [facility] ACO - DECLINED (full) [facility]-DECLINED (they do not accept for short term rehab) [facility] - DECLINED (cannot provide for patient's needs) [facility] -DECLINED (facility full) [facility] (facility full) [facility] - DECLINED (acuity too high) [facility] - DECLINED (bed not available[facility] - DECL[facility]ED (full) [facility] - DECLINED (patient needs) ASSESSMENT / PLAN ASSESSMENT Patient's continues to collaboratively plan for patient's safe discharge plan. PLAN Patient's desires patient to discharge to care home facility with PT/OT for 0-3 months. She endorses broad referrals throughout [place] and into [place] if necessary. She is interested in nursing homes/critical access hospitals/'s homes. [place] PAS: Conformation is: [id number] Patient's would like patient to return to home with home health care if care home facility is not available. The [facility] system can assist patient with necessary equipment and supplies. Patient's is not agreeable to Memory Care placement. Social Work will continue to assist with discharge needs. Social Work will continue to follow to provide support. Aimee Ahuja, M.S.W. 12/07/23 * Chavez Ashby Jr., LOC, C.N.P., M.S.N. - 12/07/2023 7:16 AM CDT Trauma Daily Progress Note ([id number]) Admission Date/Time: 11/23/2023 12:47 PM SUBJECTIVE Mr. [...] 0659 12/07/23 07 - 12/08/23 0659 Shift 0628-5041 4249-8781 [id number] 24 Hour Total 8312-9559 [phone] 24 Hour Total INTAKE P.O. 566 278 0806 Shift Total(mL/kg) 900(9.6) 250(2.7) 1150(12.3) OUTPUT Urine(mL/kg/hr) [...] #9 Fracture Acetabulum Other Closed Initial Left ([facility]) #10 Fracture Pelvis Multiple Closed With Stable Disruption Pelvis Ring Initial ([facility]) #11 Fracture Ilium Closed Initial Left ([facility]) Multiple comminuted fractures of the left anterior [...] planning. All are in agreement that pursuing care home facility placement to focus on rehabilitation. Vision is does add that she would limit his admission to three-month and then wishes to take him home to [place] with family support as well as home health care if needed. I reviewed these updates with social work as well as the charge nurse to continue pursuing placement options in the area and we will look to weaned towards closed observation as safely able in the context of 2 recent guided falls. Please feel free to page me at [phone] between [phone]. If unable to reach me please page the [facility]-Trauma Service at [phone] with any questions in regards to the [...] care. Social Work spoke with staff at [facility], [facility], and [facility] regardingprevious referrals. Social Work resent referral to those three facilities. Social Work sent referrals to [facility], [facility] and [facility], [facility], [facility], [facility], [facility], and [facility]. OBJECTIVE Patient is now considered medically ready for discharge. Referrals sent: [facility] Term Rehabilitation [facility]CO [facility]facility full) [facility] -[facility] (facility full) [facility]-DECLINED (they do not accept for short term rehab) [facility] - SNF ASSESSMENT / PLAN ASSESSMENT Patient's is collaboratively planning appropriately for patient's discharge needs. PLAN Patient will discharge to care home facility for short term rehab. Social Work [...] remains hemodynamically stable and afebrile. The bedside REGIONAL VICE PRESIDENT SURGICAL SALES states that the patient slept ok overnight [...] intake over multiple days. Discussed with bedside REGIONAL VICE PRESIDENT SURGICAL SALES about encouraging oral intake. OBJECTIVE Temperature: [36.3 [...] #9 Fracture Acetabulum Other Closed Initial Left ([facility]) #10 Fracture Pelvis Multiple Closed With Stable Disruption Pelvis Ring Initial ([facility]) #11 Fracture Ilium Closed Initial Left ([facility]) Multiple comminuted fractures of the left anterior [...] planning. All are in agreement that pursuing care home facility placement to focus on rehabilitation. Vision is does add that she would limit his admission to three-month and then wishes to take him home to [place] with family support as well as home [...] concerns please page the Trauma Service at [phone] * Raegan Drew, P.T., D.P.T. - 12/06/2023 1:30 PM CDT [...] Patient Comments: Laying in bed upon arrival. REGIONAL VICE PRESIDENT SURGICAL SALES at bedside. Precautions Weight Bearing Status: TTWB [...] min Raegan Drew P.T., D.P.T. * Daniela Torres, RTarikN., C.W.C.N. - 12/06/2023 11:11 AM CDT [facility] Wound RN following up to assess Carlos [...] assessed while lying in bed with unit REGIONAL VICE PRESIDENT SURGICAL SALES at bedside. The right pretibial traumatic wound [...] Secondary Dressing Status Clean;Dry;Intact Changed by Wound manager intensive care unit Head to toe assessment completed. DRESSING RECOMMENDATIONS: [...] nursing. They agree to the plan. The WO RN will sign-off. Please place a wound care consult for any new concerns. * Nurys Cifuentes, PTarikATarik-Barbara. - 12/06/2023 8:30 AM CDT Geriatrics Consult [...] not acutely ill, no apparent distress. ENT: [place] Lungs: Normal rate and effort Heart: No extremity edema. Abdomen: nondistended, nontender Mental: Attention intact (completed backwards days and months with one mistake) No evidence of disorganized thinking. RASS 0. CAM negative for acute delirium. DIAGNOSTICS I have independently reviewed labs over 24 hrs. ASSESSMENT / PLAN Mr. Grayson is hospitalized on [facility] Trauma for evaluation and management of: Fracture Ilium Closed Initial Left (HCC). 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 RECOMMENDATIONS: Continue I&O cathing every 6 hours Continue new tamsulosin and finasteride Continue increased dose of melatonin Continue IV olanzapine 2.5 mg PRN only if patient or staff safety is concerning General delirium prevention/management strategies: Minimize GLASS PRODUCTION MACHINE OPERATOR-acting medications. Increase mobility to match ability. Frequent reorientation. Provide moderate level of social and cognitive stimulation. Treat dehydration and constipation. Nonpharmacologic sleep promotion strategies. The above plan of care was discussed with Dr. Coello, HIM performance management consultant. I personally spent a total of 50 minutes providing and coordinating care today. Thank you for the opportunity to care for this patient. We will continue to follow with you. Pleasepage the Geriatrics Consult Service at [phone] with any questions or concerns. * Mickey [...] please contact the Orthopedic Surgery house resident azure principal solution specialist at [phone] * Alexi Khan M.D. - 12/05/2023 4:46 PM CDT I saw and examined the patient along with the resident/EDITING CLERK-PA team and agree with the findings and [...] vs memory care. Alexi Khan MD, FACS Gun Synchronizer spinner hydraulic, [facility] [employer] Division of Trauma, Critical Care and General Surgery; Department of Surgery (Pager) (office) fax [email or web address] * Hayley Durham L.G.S.W., M.S.W. - 12/05/2023 [...] ready for discharge by 12/09/23. Referrals sent: [facility]fac[facility]) [facility] -[facility] (facility full) [facility] (they do not accept for short term rehab) [facility] - SNF ASSESSMENT / PLAN ASSESSMENT Patient disposition is dependent on safety to return home or appropriateness for care home facility based on cognition. PLAN Patient's would [...] Nutrition (since admission): Spoke with patient and REGIONAL VICE PRESIDENT SURGICAL SALES. Patient's appetite has been improving according to the REGIONAL VICE PRESIDENT SURGICAL SALES and patient himself. He frequently sips fluids during meals and is having no issues chewing or swallowing with his current texture (SB6). According to REGIONAL VICE PRESIDENT SURGICAL SALES, patient drinks his Ensure Plus and smoothie [...] 1357 GI Function: Last BM Date: 12/05/23, [place] Stool Chart: Type 3: Like a sausage but with cracks onthe surface, Passing Flatus: Yes Weight since admission: Height: 180.3 cm Admission Weight: 86.3 kg (11/23/2023) Current Weight: 93.4 kg (11/30/2023) BMI (Calculated): 28.7 kg/m?? Weight change since admission: 7.1 kg Net IO Since Admission: 439.57 mL [12/05/23 1435] Estimated Needs: Total Calorie Needs: 1249-3743 calories/day Method to Estimate Energy Needs: kcal/kg [...] about patient's nutritional care please contact pager [phone] on weekdays 07:30-16:00 or [phone] on weekends/holidays ([facility]). * Margie Roth P.T., D.P.T. - 12/05/2023 [...] questions addressed during today's session. Assessment Mr. Kenan johnsonly declined all standing activities today due to fear of falling and pain despite encouragement from PT and REGIONAL VICE PRESIDENT SURGICAL SALES. Continues to be disoriented to time, place, [...] min Margie Roth P.T., D.P.T. * Lalita Bacon, LOC, C.N.P., D.N.P. - 12/05/2023 9:50 AM CDT Images from the original note were not included. SUBJECTIVE I met and examined Mr. Grayson this morning. Mr. Grayson is hospital day 12 for management of histraumatic injuries following a 6 foot fall from a ladder. He was restless and attempting to get up from the bed with 2 REGIONAL VICE PRESIDENT SURGICAL SALES's in the room when I arrived this AM. He was pleasant and alert. He was onlyoriented to himself. He was unable to tell me where he was or why. He was semi re-directable but with multiple cues. Per bedside nurse and REGIONAL VICE PRESIDENT SURGICAL SALES he did have another assisted fall (or [...] CONSULT TO NEUROLOGICAL SURGERY IP CONSULT TO [facility] INTERNAL MEDICINE IP CONSULT TO [facility] INTER[facility]INE IP CONSULT TO PHYSICAL MEDICINE & REHABILITATION IP CONSULT TO NEUROLOGY IP CONSULT TO GLASS PRODUCTION MACHINE OPERATOR WOUND CARE HUMANITIES IN MEDICINE SERVICES ([facility]) IP CONSULT TO SOLUTION SPECIALIST WARRANTY MANAGER IP CONSULT TO SOLUTION SPECIALIST WARRANTY MANAGER ASSESSMENT / PLAN Diet: Adult Diet Dysphagia; [...] vein - Discussed with Dr. Khan (trauma performance management consultant on 12/04) & due to the [...] - No follow up required in the [facility] clinic for the one rib fracture #9 Fracture Acetabulum Other Closed Initial Left (HCC) #10 Fracture Pelvis Multiple Closed With Stable Disruption Pelvis Ring Initial ([facility]) #11 Fracture Ilium Closed Initial Left ([facility]) Multiple comminuted fractures of the left anterior & posterior pubic rami, acetabulum & iliac wing extending into the left SI joint w/ hemorrhage noted in the left retroperitoneum - OTS- 1 consulted - OR (11/24): ORIF of the left associated both column acetabular fracture (Dr. Hiugera) via limited ilioinguinal w/ ASIS osteotomy plus [...] concerns please page the Trauma Service at [phone] Addendum @ 1806: Spoke to Mrs. Grayson this afternoon about [...] to follow for medication use optimization. Josef Ferrara Pharm.D., R.Ph. * Izabella Burkett, O.T., [facility] - 12/05/2023 9:15 AM CDT Occupational [...] Referral: OT dysphagia Onset Date: 11/23/23 Payor: [employer] / Plan: [facility] / Product Type: Indemnity / History of [...] Patient sitting chair with breakfast present and REGIONAL VICE PRESIDENT SURGICAL SALES. Precautions Weight Bearing Status: TTWB LLE - [...] and patient's status was discussed, Other (comment) (REGIONAL VICE PRESIDENT SURGICAL SALES present for therapy session) Patient was left in bedside chair at end of session with call light in reach, all needs met and questions answered. Additional Staff Present During Session: REGIONAL VICE PRESIDENT SURGICAL SALES Assessment Time Dysphagia Assessment Completed: 915 Clinical Impression/Recommendations: Patient was observed sitting upright in bedside chair with scrambled eggs, breakfast potatoes, oatmeal, and diced pears with milk. Patient had no overt signs of aspiration with bites observed. Patient appeared to have poor appetite this morning and was only agreeable to few bites. REGIONAL VICE PRESIDENT SURGICAL SALES present during meal to ensure aspiration precautions [...] 7:00am to 4:00pm: Our service pager at [facility]: #[phone] Our service pager at [facility]: #[phone] * Kezia Lopes APRN, C.N.P., D.N.P. - [...] / PLAN Mr. Grayson is hospitalized on [facility] Trauma for evaluation and management of: Fracture Ilium Closed Initial Left (HCC). 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 Comorbidities include (collateral received from Mikayla- [...] is concerning General delirium prevention/management strategies: Minimize GLASS PRODUCTION MACHINE OPERATOR-acting medications. Increase mobility to match ability. Frequent [...] care was discussed with Dr. Coello, HIM performance management consultant. I personally spent a total of 25 minutes providing and coordinating care today. Thank you for the opportunity to care for this patient. We will continue to follow with you. Pleasepage the Geriatrics Consult Service at [phone] with any questions or concerns. * Lizett Ashraf O.T., O.T.D., [facility] - 12/04/2023 12:50 PM CDT Occupational therapy [...] was sitting in bed with 1:1 room REGIONAL VICE PRESIDENT SURGICAL SALES and nurse providing cares. Nursing identified Carlos [...] this morning upon my arrival with a REGIONAL VICE PRESIDENT SURGICAL SALES in the room. He does not appear [...] the room from the chair. Per the REGIONAL VICE PRESIDENT SURGICAL SALES that was in the room the patient [...] the floor. I did speak with [facility] this morning and we will obtain pelvic [...] TO HOSPITAL INTERNAL MEDICINE IP CONSULT TO [facility] INTERNAL MEDICINE IP CONSULT TO PHYSICAL MEDICINE & REHABILITATION IP CONSULT TO NEUROLOGY IP CONSULT TO GLASS PRODUCTION MACHINE OPERATOR WOUND CARE HUMANITIES IN MEDICINE SERVICES ([facility]) IP CONSULT TO SOLUTION SPECIALIST WARRANTY MANAGER ASSESSMENT / PLAN Diet: Adult Diet Dysphagia; [...] concerns please page the Trauma Service at [phone] * Kezia Lopes APRN, C.N.P., D.N.P. - [...] / PLAN Mr. Grayson is hospitalized on [facility] Trauma for evaluation and management of: Fracture Ilium Closed Initial Left (HCC). 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 Comorbidities include (collateral received from Mikayla- [...] is concerning General delirium prevention/management strategies: Minimize GLASS PRODUCTION MACHINE OPERATOR-acting medications. Increase mobility to match ability. Frequent [...] care was discussed with Dr. Green, HIM performance management consultant. I personally spent a total of 25 minutes providing and coordinating care today. Thank you for the opportunity to care for this patient. We will continue to follow with you. Pleasepage the Geriatrics Consult Service at [phone] with any questions or concerns. * Lizett Ashraf O.T., O.T.Demetrius, [facility] - 12/03/2023 1:20 PM CDT Occupational Therapy [...] Referral: OT dysphagia Onset Date: 11/23/23 Payor: [facility] / Plan: [facility] / Product Type: Indemnity / History of [...] and patient's status was discussed, Other (comment) (REGIONAL VICE PRESIDENT SURGICAL SALES present for therapy session) Patient was left in bedside chair at end of session with call light in reach, all needs met and questions answered. Additional Staff Present During Session: REGIONAL VICE PRESIDENT SURGICAL SALES Assessment Time Dysphagia Assessment Completed: 1:20 pm [...] 7:00am to 4:00pm: Our service pager at [facility]: #[phone] Our service pager at [facility]: #[phone] * Lalita Bacon, LOC, C.N.P., D.N.P. - 12/03/2023 9:45 AM CDT Images from the original note were not included. SUBJECTIVE I met and examined Mr. Grayson this morning. Mr. Grayson is hospital day 10 for management of histraumatic injuries following a fall from a ladder. On my initial arrival patient was asleep with the 1:1 REGIONAL VICE PRESIDENT SURGICAL SALES at bedside, I left the patient sleeping [...] IP CONSULT TO NEUROLOGY IP CONSULT TO GLASS PRODUCTION MACHINE OPERATOR WOUND CARE HUMANITIES IN MEDICINE SERVICES ([facility]) IP CONSULT TO SOLUTION SPECIALIST WARRANTY MANAGER ASSESSMENT / PLAN Diet: Adult Diet Dysphagia; [...] concerns please page the Trauma Service at [phone] * Kezia Lopes APRN, C.N.P., D.N.P. - 12/03/2023 7:16 AM CDT Geriatrics Consult - Progress Note SUBJECTIVE Seen this morning. He was sleeping on and off. Per REGIONAL VICE PRESIDENT SURGICAL SALES, he ate all his breakfast. He had [...] / PLAN Mr. Grayson is hospitalized on [facility] Trauma for evaluation and management of: Fracture Ilium Closed Initial Left (HCC). 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 Comorbidities include (collateral received from Mikayla- [...] is concerning General delirium prevention/management strategies: Minimize GLASS PRODUCTION MACHINE OPERATOR-acting medications. Increase mobility to match ability. Frequent reorientation. Provide moderate level of social and cognitive stimulation. Treat dehydration and constipation. Nonpharmacologic sleep promotion strategies. Continue new tamsulosin and finasteride. Continue q4h voiding schedule and encouraging him to sit at the edge of the bed or use commode for urination The above plan of care was discussed with Dr. Green, HIM performance management consultant. I personally spent a total of 25 minutes providing and coordinating care today. Thank you for the opportunity to care for this patient. We will continue to follow with you. Pleasepage the Geriatrics Consult Service at [phone] with any questions or concerns. * Bella Torrez M.D. - 12/03/2023 6:37 AM CDT Orthopedic Service: OTS-1 Hospital Admission Day: 11/23/2023 Length of Stay: 10 Procedures: Surgery Information This Encounter Past Procedures (12/01/2022 to Today) Date Procedures Providers Loc / Dept 11/25/2023 OPEN REDUCTION INTERNAL FIXATION ACETABULUM. Naveed Higuera M.D.Mickey Benton M.D.Baltazar Foreman M.D.Sherie Lozano M.D. [facility] ROMB OR SUBJECTIVE [...] please contact the Orthopedic Surgery house resident azure principal solution specialist at [phone] * Lalita Bacon APRN, C.N.P., D.N.P. - 12/02/2023 8:14 PM CDT Images from the original note were not included. SUBJECTIVE I met and examined Mr. Grayson this morning. Mr. Grayson is hospital day 9 for management of his traumatic injuries following a 6 ft fall from a ladder. He was resting in bed with the REGIONAL VICE PRESIDENT SURGICAL SALES sitting at bedside. He is alert but [...] CONSULT TO NEUROLOGICAL SURGERY IP CONSULT TO [facility] INTERNAL MEDICINE IP CONSULT TO [facility] INTER[facility] MEDICINE IP CONSULT TO PHYSICAL MEDICINE & REHABILITATION IP CONSULT TO NEUROLOGY IP CONSULT TO GLASS PRODUCTION MACHINE OPERATOR WOUND CARE HUMANITIES IN MEDICINE SERVICES ([facility]) IP CONSULT TO SOLUTION SPECIALIST WARRANTY MANAGER ASSESSMENT / PLAN Diet: Adult Diet Dysphagia; [...] #9 Fracture Acetabulum Other Closed Initial Left ([facility]) #10 Fracture Pelvis Multiple Closed With Stable Disruption Pelvis Ring Initial ([facility]) #11 Fracture Ilium Closed Initial Left ([facility]) Multiple comminuted fractures of the left anterior [...] 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 If you have any questions or concerns please page the Trauma Service at [phone] * All-Tamia Fried, Ph.D., P.T., D.P.T. - 12/02/2023 5:20 PM [...] D.P.T. * Harmony Kee Ed.D., M.S., O.T., [facility] - 12/02/2023 2:28 PM CDT Occupational Therapy [...] Bundy, R.Ph. * Lizett Ashraf O.T., O.T.D., [facility] - 12/02/2023 12:14 PM CDT 12/02/23 1530 [...] textures, as able.) Tamia Ashraf O.T., O.T.D., [facility] * Hayley Durham L.GTarikSVianey, M.S.W. - 12/02/2023 11:32 AM CDT SUBJECTIVE Social Work spoke with BEN Elizabeth at [facility] ([phone]). Social Work communicated with Nicolette at [facility]. They will need patient off Safety Plan for 24 hours prior to admission. They also are unable to verify patient's Medicare number. OBJECTIVE Per [facility] Social Work, patient does not have VA short-term rehab or long-term care benefits. He does have [place] home care benefits. Patient is on Safety Plan. Patient is anticipated to be ready for discharge by 12/02/23. Referrals sent: [facility] (facility full) [facility] -[facility] (facility full) [facility] (they do not accept for short term rehab) [facility] - SNF ASSESSMENT / PLAN ASSESSMENT Patient's [...] was in a drive in restaurant because [employer] brought the food right to him. He was unable to answer any other orientation questions. 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 Increase mobility to match ability. Frequent reorientation. Provide moderate level of social and cognitive stimulation. Treat dehydration and constipation. Nonpharmacologic sleep promotion strategies. Continue new tamsulosin and finasteride. Continue q4h voiding schedule and encouraging him to sit at the edge of the bed or use commode for urination The above plan of care was discussed with Dr. Cornelius Green ([phone]), HIM performance management consultant. I personally spent a total of 35 minutes providing and coordinating care today. Thank you for the opportunity to care for this patient. We will continue to follow with you. Pleasepage the Geriatrics Consult Service at [phone] with any questions or concerns. * Mickey [...] I/O last 3 completed shifts: In: 1879 [P.O.:1879] Out: 2375 [Urine:2335; Drains:40] PHYSICAL EXAM General: [...] please contact the Orthopedic Surgery house resident azure principal solution specialist at [phone] * Landen Quinonez M.D. - 12/01/2023 5:04 PM CDT Patient seen reviewed with the trauma team. He had an episode of unresponsiveness on the commode. Patient was seen after this episode. Physical examination: Blood pressure 112/58, pulse 82, temperature 37 ??C, temperature source Oral, resp. rate 16, vhtkox745.3 cm, weight 93.4 kg, SpO2 94%. Patient [...] medications. * Harmony Kee Ed.D., M.S., O.T., BCPR - 12/01/2023 2:34 PM CDT Occupational Therapy [...] Kee Ed.D., M.S., O.T., BCPR * Michelle Elena RDN, LD - 12/01/2023 1:52 PM CDT Clinical [...] pain. Adjusted ONS order per discussion with patient/REGIONAL VICE PRESIDENT SURGICAL SALES. REGIONAL VICE PRESIDENT SURGICAL SALES reports eating is going well, he just [...] 1404 GI Function: Last BM Date: 12/01/23, [place] Stool Chart: Type 6: Fluffy pieces with [...] Medications: Scheduled Meds:acetaminophen, 650 mg, oral, Q6H trwvsvsctzdtl-pzzyhplw-uosuqxfna in Lipoderm, 1 g, topical, TID bisacodyL, [...] kg (11/23/2023) Current Weight: 93.4 kg (11/30/23) [place] Body Weight (Calculated) : 75.3 kg BMI (Calculated): 28.7 kg/m?? Net IO Since Admission: 5,176.57 mL [12/01/23 1353] Weight history: Wt Readings from Last 12 Encounters: 11/30/23 93.4 kg Weight Change History: No weight change per . No weight history in medical record. Estimated Needs: Total Calorie Needs: 9003-4611 calories/day Method to Estimate Energy Needs: kcal/kg [...] about patient's nutritional care please contact pager [phone] on weekdays 07:30-16:00 or [phone] on weekends/holidays ([facility]). * Maria Del Carmen Diaz, P.T.A. - 12/01/2023 1:43 PM CDT Physical Therapy [...] Initial (HCC) 8. Other Shock (Hemorrhagic Shock) ([facility]) 9. Fracture Pelvis Multiple Closed With Stable [...] extremity places forward and foot placed on GYRO MECHANIC's foot to monitor weight bearing. Unable to [...] Therapeutic functional activity, Neuromuscular re-education, Gait training GYRO MECHANIC Visit Trackin Time Spent with Patient Therapeutic Interventions Therapeutic Activity (min): 15 min Therapeutic Exercise (min): 12 min Time Tracking Total Timed Units (min): 27 min Total Treatment Time (min): 27 min Maria Del Carmen Diaz P.T.ATarik * Kelly Johnson P.A.-C. 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 RECOMMENDATIONS: General delirium prevention/management strategies: Minimize GLASS PRODUCTION MACHINE OPERATOR-acting medications. Increase mobility to match ability. Frequent [...] care was discussed with Dr. Cornelius Green [phone]), HIM performance management consultant. I personally spent a total of 50 minutes providing and coordinating care today. Thank you for the opportunity to care for this patient. We will continue to follow with you. Pleasepage the Geriatrics Consult Service at [phone] with any questions or concerns. * Hayley Durham L.G.S.W., M.S.W. - 12/01/2023 10:58 AM CDT SUBJECTIVE Social Work communicated with [facility] and updated them on patient's insurance coverage. Social Work sent fax request to patient's PCP MARCO A Pablo (fax: [phone]) for shortterm rehab referral outside of the [place] system. Social Work communicated with [facility] regarding regional [place] contracted short term rehab facilities. Social Work sent updated insurance information to [facility]. Social Work expanded referrals to include: [facility], [facility], [facility], and [facility] - SNF. OBJECTIVE Patient is anticipated to be ready for discharge by 12/02/23. Referrals sent: [facility] (facility full) [facility] (they do not accept for short term rehab) [facility] - SNF ASSESSMENT / PLAN ASSESSMENT Care Management obtained patient's VA number and Medicare number which will assist with accessing short term rehab placement. PLAN Patient's desires patient discharge to short term rehab as close to [place] as possible. Social Work will continue to [...] concerns, please page the Trauma Service at [phone]. * Cata Bower O.T., O.T.D. - 12/01/2023 8:39 AM CDT Occupational Therapy [...] Referral: OT dysphagia Onset Date: 11/23/23 Payor: [employer] / Plan: [place] / Product Type: Indemnity / History [...] of the left acetabulum. Family/Caregiver Present: Yes (REGIONAL VICE PRESIDENT SURGICAL SALES) Patient/Caregiver Goals: None stated Patient Comments: Patient [...] was contacted and patient's status was discussed (REGIONAL VICE PRESIDENT SURGICAL SALES engaged in therapy session) Patient was left with REGIONAL VICE PRESIDENT SURGICAL SALES present at end of session with call light in reach, all needs met and questions answered. Additional Staff Present During Session: REGIONAL VICE PRESIDENT SURGICAL SALES Assessment Time Dysphagia Assessment Completed: [id number] Clinical Impression/Recommendations: Patient sleeping with REGIONAL VICE PRESIDENT SURGICAL SALES present upon OT arrival but patient arousable and pleasant. Patient continues to present with confusion and delirium but was pleasant and appropriate throughout today's session. Assessed safety with oral intake of minced and moist bhutanese toast, turkey sausage, mixed berries, and thin [...] 7:00am to 4:00pm: Our service pager at [facility]: #[phone] Our service pager at [facility]: #[phone] * Mickey Benton M.D. - 12/01/2023 6:26 [...] 1900 11/29/23 190 - 11/30/23 0700 11/30/23 07 - 11/30/23 1900 11/30/23 190 - 12/01/23 0712/01/23 07 - 12/01/23 1045 Closed/Suction Drain 1 [...] please contact the Orthopedic Surgery house resident azure principal solution specialist at [phone] * Ishan Collins R.R.T., L.R.T. - 11/30/2023 7:12 PM CDT 11/30/23 [...] time. Electronically signed by: Ishan Collins R.R.T., LTarikRTarikTTarik 11/30/23 7:13 PM CDT * Hayley Durham L.G.S.W., M.S.W. - 11/30/2023 5:42 PM CDT SUBJECTIVE Social Work spoke to patient's on the telephone. Social Work spoke to Flavia in [place] at [place] in [place]. Social Work spoke to [employer] regarding patient's lacking insurance information. Social Work called VA benefits. Social Work communicates with Service regarding contributing factors of current cognitive challenges. Service indicates baseline cognition exacerbated by brain injury and hospital delirium as likely contributing factors. OBJECTIVE Patient is a service connected which qualifies him for coverage for long-term care. The VA has to approve this long-term care. Patient is on Safety Plan. ASSESSMENT [...] 11/30/23 * Harmony Kee Ed.D., M.S., O.T., [facility] - 11/30/2023 2:38 PM CDT Occupational Therapy [...] Ed.D., M.S., O.T., BCPR * Mansi Farrell O.Cecily, SCFES - 11/30/2023 8:45 AM CDT Occupational Therapy [...] and patient's status was discussed, Other (comment) (REGIONAL VICE PRESIDENT SURGICAL SALES engaged in therapy session) Patient was left in bedside chair at end of session with call light in reach, all needs met and questions answered. Assessment Clinical Impression/Recommendations: Patient was eating breakfast when OT arrived. REGIONAL VICE PRESIDENT SURGICAL SALES was present in the room and she [...] 7:00am to 4:00pm: Our service pager at [facility]: #[phone] Our service pager at [facility]: #[phone] * Naveed Dan, P.A.-Barbara. - 11/30/2023 8:27 AM CDT SUBJECTIVE Mr. [...] concerns, please page the Trauma Service at [phone]. * Kelly Johnson P.A.-C. 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 RECOMMENDATIONS: General delirium prevention/management strategies: Minimize GLASS PRODUCTION MACHINE OPERATOR-acting medications. Increase mobility to match ability. Frequent [...] care was discussed with Dr. Guru Bill ([phone]), HIM performance management consultant. I personally spent a total of 35 minutes providing and coordinating care today. Thank you for the opportunity to care for this patient. We will continue to follow with you. Pleasepage the Geriatrics Consult Service at [phone] with any questions or concerns. * Mickey [...] to suction Output by Drain (mL) 11/28/23 0701 - 11/28/23 1900 11/28/23 1901 - 11/29/23 0700 11/29/23 0701 - 11/29/23 1900 11/29/23 1901 - 11/30/23 0700 11/30/23 0701 - 11/30/23 [...] please contact the Orthopedic Surgery house resident azure principal solution specialist at [phone] * Tamia Pedraza, Ph.D., P.T., D.P.T. - [...] move R LE as able. PT and REGIONAL VICE PRESIDENT SURGICAL SALES helped support B LE and trunk during [...] Tamia Pedraza, Ph.D., P.T., D.P.T. * Hayley Durham, L.G.S.W., M.S.W. - 11/29/2023 3:22 PM CDT SUBJECTIVE Social Work communicated with patient, Service, and Nursing regarding discharge planning. Social Work attempted to meet with patient's family in his hospital room but they had recently left for the day. [facility] ([phone]) inquiring about patient's VA benefits. OBJECTIVE Patient was in his room with his eyes open. He politely answered Social Work brief questions. He did not know his 's phone number. Patient is anticipated to be medically ready at end of week or weekend. Referrals sent: [facility] ASSESSMENT / PLAN ASSESSMENT It appears application for Medicaid is initiated. Patient's lack of insurance my be a barrier for placement. Patient appears well-supported by and family. PLAN Patient may need to discharge to care home facility/swing bed. Social Work will continue to [...] R.N., C.W.C.N. - 11/29/2023 2:45 PM CDT [facility] Wound RN consulted to assess Carlos Alberto [...] lying in bed with family at bedside. [facility] RN consulted toassess the wound on the [...] Secondary Dressing Status Dry;Clean;Intact Changed by Wound manager intensive care unit Partial head to toe skin assessment completed; [...] to face care. Current Nutrition (since admission): REGIONAL VICE PRESIDENT SURGICAL SALES notes that he has eaten everything for [...] Last BM Date: 11/28/23 (per chart review), [place] Stool Chart: Type 6: Fluffy pieces with [...] Medications: Scheduled Meds:acetaminophen, 650 mg, oral, Q6H xkzskbftmteqm-chzcqzti-rkykwupuz in Lipoderm, 1 g, topical, TID bisacodyL, [...] 86.3 kg (11/23/2023) Current Weight: 86.6 kg [place] Body Weight (Calculated) : 75.3 kg BMI (Calculated): 26.6 kg/m?? Net IO Since Admission: 7,541.57 mL [11/29/23 1353] Weight history: Wt Readings from Last 12 Encounters: 11/24/23 86.6 kg Weight Change History: No weight change per . No weight history in medical record. Estimated Needs: Total Calorie Needs: 4595-4215 calories/day Method to Estimate Energy Needs: kcal/kg [...] about patient's nutritional care please contact pager [phone] on weekdays 07:30-16:00 or [phone] on weekends/holidays ([facility]). * Naveed Dan P.A.-C. - 11/29/2023 12:01 [...] contact the Special Pulmonary Evaluation Laboratory at [phone] with questions regarding this report. Physician: Luis Neely M.D. [id number] Christopher Arciniega M.D. [id number] DX Chest Portable 1 View Result Date: [...] concerns, please page the Trauma Service at [phone]. Associated attestation - Landen Quinonez M.D. - [...] bed with nonviolent restraints in place and REGIONAL VICE PRESIDENT SURGICAL SALES was in the room cleaning up. 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 We will continue the current sleep medication plan and taper as able. He was started on tamsulosin for urinary retention. He is still requiring frequent I&O cath. I do wonder if part of this is related to him lying flat in bed and query if encouraging him to get upto the commode would be helpful. RECOMMENDATIONS: General delirium prevention/management strategies: Minimize GLASS PRODUCTION MACHINE OPERATOR-acting medications. Increase mobility to match ability. Frequent [...] care was discussed with Dr. Guru Bill [phone]), HIM performance management consultant. I personally spent a total of 35 minutes providing and coordinating care today. Thank you for the opportunity to care for this patient. We will continue to follow with you. Pleasepage the Geriatrics Consult Service at [phone] with any questions or concerns. * Mickey [...] by Drain (mL) 11/27/23 07 - 11/27/23 1900 11/27/23 190 - 11/28/23 0711/28/23 07 - 11/28/23 1900 11/28/23 190 - 11/29/23 0711/29/23 07 - 11/29/23 [...] please contact the Orthopedic Surgery house resident azure principal solution specialist at [phone] * Farnaz Reece C.R.T., L.R.T. - 11/29/2023 1:56 AM CDT 11/28/232221 Overnight Oximetry Procedure Overnight Oximetry Set-up Completed Patient placed on Overnight Oximetry at this time. Electronically signed by: Farnaz Reece C.R.T., L.R.TTarik 11/29/23 1:57 AM CDT * Hayley Durham L.G.S.W., M.S.W. - 11/28/2023 5:30 PM CDT SUBJECTIVE Social Work spoke with Nursing regarding patient's ability to communicate. Social Work met with patient at bedside to discuss discharge needs and provide a supportive visit. Patient was cooperative. His ability to answer Social Work questions appropriately waxed and waned. Patient shared he was in [place] and sustained hearing loss and is compensated $150/month through the VA. Patient confirms he does not have insurance and states, I do not believe in that stuff. Patient tells Social Work she can help him by making him a small cake. Patient shares he receives something like $195/month for care home. 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 Patient is agreeable to [facility] care home facility and applying for insurance if helpful to facilitate that. He also talksabout some having house payments so he wouldn't take that. Patient shares, I have been serving the [employer] my whole life. I've been living for the [employer]. He shares that this makes everything better. OBJECTIVE Patient is no longer in restraints. Patient is located on FR. 5C. ASSESSMENT / PLAN ASSESSMENT Social Work talking to patient's about discharge planning is warranted given patient's cognitive state. Patient does not appear to have insurance on file which may complicate discharge to care home facility. PLAN Social Work will call patient's to discuss disposition. Social Work will continue to follow to provide support. Social Work will continue to follow to assist with discharge needs. Melissa Ahuja., M.S.W. 11/28/23 * Tresa Pizarro O.T., [facility] - 11/28/2023 4:13 PM CDT 11/28/23 1613 [...] throughout the meal for safety. * Rosette aRmos P.A.-C., M.S. - 11/28/2023 12:59 PM CDT [...] / PLAN Mr. Grayson is hospitalized on [facility] Trauma for evaluation and management of: Fracture Ilium Closed Initial Left ([facility]) #1 History Of Falling #2 Subarachnoid Hematoma Trauma Without Loss Of Consciousness Subsequent #3 Contusion Scalp Initial #4 Fracture Rib One Open Initial Left #5 Contusion Other Intra Abdominal Organs Initial #6 Anemia Posthemorrhagic Acute (Blood Loss Anemia) #7 Fracture Acetabulum Other Closed Initial Left ([facility]) #8 Fracture Pelvis Multiple Closed With Stable Disruption Pelvis Ring Initial ([facility]) #9 Fracture Ilium Closed Initial Left ([facility]) #10 Encephalopathy Metabolic #11 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 Bill, HIM performance management consultant. I personally spent a total of 35 minutes providing and coordinating care today. Thank you for the opportunity to care for this patient. We will continue to follow with you. Pleasepage the Geriatrics Consult Service at [phone] with any questions or concerns. * Naveed [...] seen this morning in his room with REGIONAL VICE PRESIDENT SURGICAL SALES at bedside. Patient is pleasantly alert and [...] received: 4u pRBC, 2u FFP, 4u plts 2/ hemorrhagic shock - TEG has since been [...] concerns, please page the Trauma Service at [phone]. * Mickey Benton M.D. - 11/28/2023 2:52 AM CDT Orthopedic Service: OTS-1 Hospital Admission Day: 11/23/2023 Length of Stay: 5 Procedures: Surgery Information This Encounter Past Procedures (11/28/2022 to Today) Date Procedures Providers Loc / Dept 11/25/2023 OPEN REDUCTION INTERNAL FIXATION ACETABULUM. Naveed Higuera M.D.Mickey Benton M.D.Baltazar Foreman M.D.Sherie Lozano M.D. RST ROMB OR SUBJECTIVE [...] 11/27/23 0700 11/27/23 07 - 11/27/23 1900 11/27/231900 - 11/28/23 0007 Closed/Suction Drain 1 Inferior;Midline [...] please contact the Orthopedic Surgery house resident azure principal solution specialist at [phone] * Destiney Bundy M.A., O.T., O.T.D., [facility] - 11/27/2023 12:44 PM CDT 11/27/23 1244 Reason Therapy Missed Reason Therapy Missed No visit this date The patient's RN reported patient had slowed oral management of pills and the REGIONAL VICE PRESIDENT SURGICAL SALES reported the patient had retention of food [...] past 24 hours. Last BM Date: 11/26/23 [place] Stool Chart: Type 7: Watery, no solid [...] when asked if we are in a confucianism and yes to hospital). Unable to register [...] / PLAN Mr. Grayson is hospitalized on [facility] Trauma and General Surgery for evaluation and management of: Fracture Ilium Closed Initial Left ([facility]) #1 History Of Falling #2 Subarachnoid Hematoma Trauma Without Loss Of Consciousness Subsequent #3 Contusion Scalp Initial #4 Fracture Rib One Open Initial Left #5 Contusion Other Intra Abdominal Organs Initial #6 Anemia Posthemorrhagic Acute (Blood Loss Anemia) #7 Fracture Acetabulum Other Closed Initial Left ([facility]) #8 Fracture Pelvis Multiple Closed With Stable Disruption Pelvis Ring Initial ([facility]) #9 Fracture Ilium Closed Initial Left ([facility]) #10 Encephalopathy Metabolic #11 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 Pleasepage the Geriatrics Consult Service at [phone] with any questions or concerns. * Naveed Dan P.A.-C. - 11/27/2023 8:31 AM CDT Images from the original note were not included. SUBJECTIVE Mr. Grayson was seen and examined by the Trauma team in his room this morning. Patient is pleasantly confused this morning, in restraints with mitts in place. Patient's REGIONAL VICE PRESIDENT SURGICAL SALES overnight states that there have been no [...] concerns, please page the Trauma Service at [phone]. * Mickey Benton M.D. - 11/27/2023 6:27 AM CDT Orthopedic Service: OTS-1 Hospital Admission Day: 11/23/2023 Length of Stay: 4 Procedures: Surgery Information This Encounter Past Procedures (11/27/2022 to Today) Date Procedures Providers Loc / Dept 11/25/2023 OPEN REDUCTION INTERNAL FIXATION ACETABULUM. Naveed iHguera M.D.Markos, James R, M.D.Labott, Joshua R, M.D.Hidden, [...] to suction Output by Drain (mL) 11/25/23 0701 - 11/25/23 1900 11/25/23 190 - 11/26/23 0700 11/26/23 0701 - 11/26/23 1900 11/26/23 1901 - 11/27/23 0700 11/27/23 0701 - 11/27/23 [...] please contact the Orthopedic Surgery house resident azure principal solution specialist at [phone] * Rae Coello M.D. - 11/26/2023 12:19 [...] and laying in bed. Last BM Date: (GYRO MECHANIC) I have reviewed the current medication list. [...] person but not to place (hotel in [place]) or reason for hospitalization. Able to attend [...] / PLAN Mr. 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 Pleasepage the Geriatrics Consult Service at [phone] with any questions or concerns. * Naveed [...] % I/O last 3 completed shifts: In: 41252.4 Out: 3846.5 [Urine:1011; Drains:737.5; Blood:2098] Vitals and [...] received: 4u pRBC, 2u FFP, 4u plts 2/ hemorrhagic shock - TEG has since been [...] time. They can be reached at pager #[phone]. For any additional questions or concerns, please page the Trauma Service at [phone]. * Bella Torrez M.D. - 11/26/2023 6:21 AM CDT Orthopedic Service: OTS-1 Hospital Admission Day: 11/23/2023 Length of Stay: 3 Procedures: Surgery Information This Encounter Past Procedures (11/26/2022 to Today) Date Procedures Providers Loc / Dept 11/25/2023 OPEN REDUCTION INTERNAL FIXATION ACETABULUM. Naveed Higuera M.D.Markos, James R, M.D.Labott, Joshua R, M.D.Hidden, Sherie Cagle M.D. RST ROMB OR SUBJECTIVE [...] 76 I/O last 3 completed shifts: In: 65840.9 Out: 3709 [Urine:981; Drains:630; Blood:2098] PHYSICAL EXAM [...] to suction Output by Drain (mL) 11/24/23 0701 - 11/24/23 1900 11/24/23 190 - 11/25/23 0700 11/25/23 0701 - 11/25/23 1900 11/25/23 190 - 11/26/23 [...] please contact the Orthopedic Surgery house resident azure principal solution specialist at [phone] * Carlyn Rivas M.B.BTarikS. - 11/26/2023 4:43 AM CDT SICU Progress [...] massive transfusion protocol was activated and he [id number] pRBC + 2U FFP + 2U Platelets. [...] % I/O last 3 completed shifts: In: 52767 Out: 3988 [Urine:1690; Drains:200; Blood:2098] Vitals and [...] time. They can be reached at pager #[phone]. For any additional questions or concerns, please page the Trauma Service at [phone]. Associated attestation - Lenora Johnson M.D. - 11/27/2023 1:36 AM CDT I saw and evaluated the patient, participating in the ashraf portions of the service. I reviewed Mr. Dan's note. I agree with his findings and plan. [facility] TRAUMA [facility] DEPUTY CLERK NOTE SUBJECTIVE Mr. Grayson is an 83 [...] incidental pulmonary nodules identified on chest CT Sutures/[place] (location and removal dates): 1. Pending orthopedic [...] - 11/23/23 1900 11/23/23 190 - 11/24/23 0711/24/23 07 - 11/24/23 1900 11/24/23 190 - [...] please contact the Orthopedic Surgery house resident azure principal solution specialist at [phone] Nura Benton M.D. (PGY-3) * Zia Lundberg [...] Consultations: None Emily Lundberg, Pharm.D., R.Ph. Pager [phone] * Barry Fitzpatrick P.A.-C., M.S. - 11/25/2023 [...] / PLAN Mr. Grayson is hospitalized on [facility] Trauma and General Surgery for evaluation [...] Disorder Due To Alzheimer's Without Behavior Disturbance ([facility]) What Matters Most to Mr. Grayson: Personal interests/hobbies: Fixing things Relationships/supports: in confucianism Mentation: Baseline cognition: Independent of ADLs and [...] issues: BPH, cataracts, glaucoma Anticipated disposition plan: Senior Living Facility RECOMMENDATIONS: 1. Initiate ramelteon and suvorexant [...] care was discussed with Dr. Rae Coello ([phone]), HIM performance management consultant. I personally spent a total 25 minutes in counseling and coordination of care as documented above. Thank you for the opportunity to care for this patient. We will continue to follow with you. Pleasepage the Geriatrics Consult Service at [phone]. * Carlyn Rivas M.B.B.S. - 11/25/2023 5:08 [...] - CXR: AM CXR pending. - meds [employer] p.r.n. - Rib fracture numbers: NIF -60, [...] Alcohol Was intervention required: no * Kandy Krause, O.T., MOT - 11/24/2023 10:54 AM CDT [...] Findings discussed with Bereket Snider M.D. (pager #[phone]) on 11/23/2023 at 1:[address] Abdomen [...] time. They can be reached at pager #[phone]. For any additional questions or concerns, please page the Trauma Service at [phone]. * Dorian Ferrara M.D., Ph.D. - 11/24/2023 [...] starting QTP and will allow some PRNs (LA route as spitting out meds) CV: VSS [...] Specific Dosing Protocols and Consultations: None Emily Lundberg PharmLars., R.Ph. Pager [phone] * Francisco Staley M.D. - 11/24/2023 6:35 [...] to name and year; reports being in [facility] grossly intact. EOMI. Normal V1-V3 sensation. [...] cares per ICU team Chief C service, [phone] Montez Tellez M.D., Ph.D. * Shay Lee [...] Barron MDIV - 11/23/2023 2:00 PM CDT [facility] Spiritual Care Progress Note Patient: Carlos Alberto Grayson Age:83 y.o. Location: [id number] Reason(s) for encounter: Spiritual Care contact to introduce spiritual care service and assess for potential spiritual care needs. Summary: I was able to meet with Carlos Alberto Grayson and his for prayer. I provided a brief prayer. His said their art glass setter and art glass setter's are also here and that they have [...] current medical condition and life stage. Facilitated oriental orthodox/spiritual practices (prayer, blessing, sacred texts, oriental orthodox item) with theaim to reinforce patient's spiritual [...] requested. Chaplains can be contacted by paging [phone] ([place]) or [phone] ([place]). * Eunice Huston L.I.C.S.W., M.S.W. - 11/23/2023 1:13 PM CDT SUBJECTIVE Emergency Department hospice social worker is present at the R1 resuscitation bay in the context of an Adult Level Red Trauma activation. Per EMS: Patient fell at home. EMS reports patient's will be coming from home. EMS reports patient's expresses concern patient may be showing signs of Dementia. EMS reports patient is alertand oriented to himself, which reportedly says is his baseline currently. OBJECTIVE Emergency Department hospice social worker presents to the resuscitation bay in the context of an Adult Level Red Trauma. Patient was brought by [facility] ground ambulance. Checked in with the treatment [...] physician. Previously he was seen at the [facility], but it has been a number ofyears. [...] deterioration of the following conditions: shock trauma GLASS PRODUCTION MACHINE OPERATOR failure or compromise hemorrhage Critical care was [...] documented in this encounter Consult Notes * Jamil Birch - 12/19/2023 9:00 AM CDTAssociated Order(s): IP CONSULT TO SOLUTION SPECIALIST WARRANTY MANAGER [facility] Spiritual Care Progress Note Patient: Carlos Alberto Grayson Age:83 y.o. Location: [address] Reason(s) for encounter: Responded to Spiritual Care Consult. Summary: I was able to meet with Carlos Alberto Grayson, he was lying down and awake, dressed in casual clothing. We had a more social visit, I offered Spiritual Care resources, and we explored the meaningful things in Carlos Alberto's life. Carlos Alberto, when asked about what matters to him, shared that his Joseline is very important to him. He also enjoys hunting deer. He shared that his Charis is very important to him and that he tries to read scripture on a daily basis. Patient stated that he has been feeling ok and alright duringhis time in the hospital. Stoner Hand provided the following interventions: Meaning/Charis Exploration Therapeutic Listening Spiritual Assessment Zoroastrianism Identification / Spiritual Practices: Carlos Alberto is a Mosque Restoration Spiritual Care outcomes: Patient/family was appreciative of spiritual care support. Spiritual Care Plan / Recommendations: Will remain available for spiritual care as needed or requested. Chaplains can be contacted by paging [phone] ([place]) or [phone] ([place]). * Izabela Bundy, LOC, C.N.P., D.N.P. - 12/13/2023 2:38 PM CDTAssociated Order(s): IP CONSULT TO VASCULAR MEDICINE Vascular Medicine curb side note: ? Need for treatment of soleal DVT in the setting of complex pelvic fracture. On November 24, 2023, he fell off a ladder and sustained intracranial hemorrhage, SAH, left pelvic fracture with complex involvement of the acetabulum and underwent ORIF on November 25, 2023. Lower extremity ultrasounds have been performed on November 27, , and 2023. These all demonstrateprogressive resolution of soleal DVT while on prophylactic anticoagulation alone. In the setting of isolated distal provoked DVT, it is okay to withhold therapeutic anticoagulation if there is concern for bleeding. In this situation, certainly appropriate to continue serial monitoring (traditionally would only monitor x 2 but as he continues to be quite immobile, would recommend4 serial ultrasounds which demonstrate no proximal extension). Would recommend 1 additional ultrasound in 1 week. As long as no proximal extension is noted, therapeutic anticoagulation is not indicated. Okay to discontinue anticoagulation at hospital discharge as long as his mobility continues to improve. * Jude Olivares - 12/05/2023 1:30 PM CDTAssociated Order(s): IP CONSULT TO SOLUTION SPECIALIST WARRANTY MANAGER [facility] Spiritual Care Consult Note Patient: Carlos Alberto Grayson Age:83 y.o. Location: [id number] Reason(s) for encounter: Responded to Spiritual Care Consult. Summary: I was able to meet with Carlos Alberto Grayson and prayed with him today. He also prayed for his leg. Spiritual Care Plan / Recommendations: Will remain available for spiritual care as needed or requested. Chaplains can be contacted by paging [phone] ([place]) or [phone] ([place]). * Isa Cedillo - 12/01/2023 9:12 PM CDTAssociated Order(s): IP CONSULT TO SOLUTION SPECIALIST WARRANTY MANAGER [facility] Spiritual Care Consult Note Patient: Carlos Alberto Grayson Age:83 y.o. Location: [address]/[facility]-P Reason(s) for encounter: Responded to Spiritual Care [...] requested. Chaplains can be contacted by paging [phone] ([place]) or [phone] ([place]). * Josef Peraza M.D., M.E. - 11/29/2023 12:28 PM CDTAssociated Order(s): IP CONSULT TO NEUROLOGY NEUROLOGY CONSULT NOTE SUBJECTIVE Reason for consult: Recommendations regarding serial punctate hemorrhage increase Primary Team: RST TCSANDRITA Trauma Neurology Supervising Gun Synchronizer: Dr. Ramez Vazquez HISTORY OF PRESENT ILLNESS: [...] comprehension areintact.) Cranial nerves: PERRL, EOMI, visual umniz intact to confrontation, facial movements full and [...] CAA. Patient seen and discussed with our performance management consultant Dr. Ramez Vazquez. We appreciate the consult. Please page [phone] with any questions regarding our recommendations. Josef [...] deer hunting. Prior Mobility/Functional Transfers Level of [place]: Independent Home Living Type of Home: House [...] Drew P.T., D.P.T. * Rebecca Diana O.T., O.T.Demetrius - 11/26/2023 1:31 PM CDT Occupational Therapy [...] deer hunting. Prior Mobility/Functional Transfers Level of [place]: Independent Home Living Type of Home: House [...] O.T.Demetrius * Destiney Bundy M.A., O.TTarik, O.T.DTarik, [facility] [place] - 11/26/2023 12:12 PM CDT Occupational Therapy Dysphagia Evaluation/Treatment SUBJECTIVE Patient's Name: Carlos Alberto Grayson Referring/Attending Provider: Jason Navarrete M.D. Medical Diagnosis: Anemia [D64.9] Contusion Buttock Initial [S30.0XXA] Subarachnoid Hemorrhage With Loss Of Conscious Initial (HCC) [S06.6X9A] Fracture Acetabulum Closed Initial Left (HCC) [S32.402A] Fracture Ilium Closed Initial Left (HCC) [S32.302A] History Of Falling [Z91.81] Other Shock (Hemorrhagic Shock) ([facility]) [R57.8] Retroperitoneal Hematoma [K68.3] Reason for Referral: Reason for Referral: Occupational Therapy Evaluate and Treat for Dysphagia, referred by Charlotte Ordaz APRN C.N.PTarik, DemetriusNTarikP. Onset Date: 11/23/23 Payor: / PERTINENT MEDICAL [...] Brain Traumatic With Loss Of Consciousness Initial ([facility]) Delirium Postprocedural Hemorrhagic Shock Initial History reviewed. [...] at end of session with RN and REGIONAL VICE PRESIDENT SURGICAL SALES present, needs met and questions answered. Assessment [...] 7:00am to 4:00pm: Our service pager at [facility]: #[phone] Our service pager at [facility]: #[phone] * Alyson Bueno L.G.S.W., M.S.W. - 11/25/2023 11:02 AM CDT Psychosocial Assessment SUBJECTIVE Assessment Information Referral Source: CM/BEN Referral Referral Reason: Psychosocial assessment, Coping, adjustment and support Primary Language: [place]orese Correctional Medicine Physician Services Used: No Sexuality/Pronoun: / Person(s) present during interview: Elsa Disclaimer: They were advised of the various [...] on the ladder. Patient is currently on [facility] Trauma Critical Care and General Surgery service on MB 7B for fracture ilium closed initial left. Social History Early Growth and Development: The patient met social and developmental milestones as expected. Citizenship: [place] 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 Ramon expressed understanding and was agreeable to the visit. For the purpose of this assessment, Ramon appears to be a reliable historian. Ramon shares they heard the patient calling for help and witnessed them laying on the ground next to their large ladder. Patient claims they were not climbing on the ladder. Patient is currently on [facility] Trauma Critical Care and General Surgery [...] alcohol use, or drug use. Patient enjoys Restoration music and the Bible. Ramon shares from previous RN experience working a memory care, the patient's memory issues have declined over the past several months. Ramon expressed concerns the patient may have stage 2 or 3 dementia at this time and would like [facility] to provide a formal dementia diagnosis. Social work discussed the importance of utilizing primary care for a dementia diagnosis- Ramon shares she has attempted several times and the patient will call and cancel each appointment however the [facility] PCP will call Ramon and express concerns [...] Mr. 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 He lives with his in a multilevel home; she is a retired nurse. He [...] consciousness. He was emergently brought to the [facility] where he had a trauma evaluation. 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 Trauma and General Surgery General (e.g. 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 Grayson is an 83-year-old [...] with hospitalization: Sleep: abnormal Tubes/lines: NATALIE and Rosado Current diet order: No diet [...] / PLAN Mr. Grayson is hospitalized on [facility] Trauma and General Surgery for evaluation and [...] Grayson: Personal interests/hobbies: Fixing things Relationships/supports: in confucianism Mentation: Baseline cognition: Independent of ADLs and [...] issues: BPH, cataracts, glaucoma Anticipated disposition plan: Senior Living Facility RECOMMENDATIONS: 1. Initiate ramelteon and suvorexant [...] care was discussed with Dr. Rae Coello [phone]), HIM performance management consultant. I personally spent a total 80 minutes in counseling and coordination of care as documented above. Thank you for the opportunity to care for this patient. We will continue to follow with you. Pleasepage the Geriatrics Consult Service at [phone]. * Umm Schmidt M.D. - 11/23/2023 7:15 [...] 6 ft ladder Anticoagulation Status: None Supervising performance management consultant: Dr. Johnson, [facility] trauma performance management consultant. PREHOSPITAL INFORMATION Time of injury: 1115 [...] & Screen Expiration 11/26/2023 23:59 Testing Location [place] Troponin T, Baseline with 2 Hour/6 Hour [...] Findings discussed with Bereket Snider M.D. (pager #[phone]) on 11/23/2023 at 1:[address] Abdomen [...] 83 y.o. male who presents to the [facility] Trauma Resuscitation St[place] status post fall from a ladder. Patient [...] was seen and examined with Dr. Jasso, [facility] trauma performance management consultant, who was in agreement with the above plan and assessment. Please page the trauma service at [phone] with any questions or concerns. Edmar Love M.D., Ph.D. General Surgery 11/23/23 2:54 PM CDT Associated attestation - Lenora Johnson M.D. - 11/23/2023 9:01 PM CDT I saw and evaluated the patient, participating in the ashraf portions of the service. I reviewed Dr. Love's note. I agree with his findings and plan. [facility]ICE [facility] DEPUTY CLERK NOTE SUBJECTIVE Mr. Grayson is an 83-year-old male patient who fell off a 6 ft ladder at approximately 11:15 a.m..The patient's spouse found the patient lying down calling out for help. Notably, the patient's spouse reports a suspicion that the patient has been demonstrating some signs of dementia recently. The patient had signs of injury to his left alevism and complained of severe left hip pain. [...] The patient will be admitted to the [facility] Trauma ICU. My colleague, Dr. Jason Navarrete has been made aware. We will obtain tertiary trauma survey tomorrow or when otherwise appropriate. We will appreciatethe recommendations of our Geriatric Medicine colleagues. Will follow up on the recommendations of our OTS colleagues and repeat evaluation by Neurosurgery after tomorrow's head CT. * Toni Vazquez M.D. - 11/23/2023 2:32 PM CDTAssociated Order(s): Orthopedic Surgery consult ([facility]) ORTHOPEDIC SURGERY CONSULT NOTE Today's date: 11/23/2023 Referring Provider - Orthopedic Surgery consult ([facility]) Referring Provider: Bereket Snider M.D. - Emergency department, resuscitation Starr Chief Complaint -or- Reason for Consult Left [...] a level red 3 to the resuscitation Starr in the [facility] Emergency Department. Orthopedic surgery was consulted [...] evaluated the patient expeditiously in the resuscitation Starr after being made aware of his acetabular [...] he is fasting as he is developed oriental orthodox man Anticoagulation: No Diabetes: No Tobacco use: [...] Findings discussed with Bereket Snider M.D. (pager #[phone]) on 11/23/2023 at 1:[address] Abdomen [...] above-noted acetabular fracture. . ASSESSMENT / PLAN [facility] C05 -- Carlos Alberto Grayson ([phone]) 83 y.o.male #1 Left comminuted acetabular fracture [...] his acetabular fracture - Hospital admission to [facility] - standard preoperative labs and evaluation - we will need surgical clearance either by the ICU or HIM This is a josé miguel resident note that will be staffed within 24 hours. Please refer to the supervisory note of the OTS Chief Resident azure principal solution specialist for final recommendations. Please contact OTS-1 (aKlen) at [phone] with any questions or concerns regarding this patient. If outside of 06:00 - 18:00 on weekdays or any time on the weekend, please contact the [facility] Orthopedic Surgery house resident azure principal solution specialist at [phone] (This note was created with the use of Simbiosis Direct voice recognition software. While this note [...] GCS: 14 (E4 V4 M6) - General: [place], alert, supine in bed; at bedside, C [...] touch throughout - Coordination: No dysmetria on xvejsb-[id number] testing. Results from last 7 days Lab [...] report he is currently fasting due to oriental orthodox reasons and unsure if that can be [...] been discussed with the chief neurosurgery resident azure principal solution specialist, Dr. Schmidt. Please look to her forthcoming supervisory note in the next 12-24 hours. For any questions or concerns regardingthe neurosurgical plan of care for this patient, please page the Neurosurgery Chief C Service Pager, [phone]. Times: Consult placed: 13:26 (while in scanner) Patient seen: 14:05 (upon immediate return from scanner) Staffed with chief resident: 14:25 --- Neisha Waldrop APRN, Barbara.N.Pablo., M.S.N. documented in this encounter Nursing Notes * Beatriz Humphreys R.N. - 12/25/2023 5:39 AM CDT Problem: SAFETY ADULT Goal: Maintain [...] from injury while in restraint Outcome: Progressing Shift Goals: Clinical Goals for the Shift: safety Identify possible barriers to meeting goals/advancing plan of care: none. End of Shift Summary: uneventful night. Slept well. VSS. Refused all meds and bladder scans. * Beatriz Humphreys R.N. - 12/23/2023 5:20 AM CDT Shift Goals: Clinical Goals for the Shift: safety Identify possible barriers to meeting goals/advancing plan of care: none. End of Shift Summary: refused most meds and vs. Bladder scanned and emptied q4. Slept well otherwise. Problem: SAFETY ADULT Goal: Maintain a safe [...] injury while in restraint Outcome: Progressing * Dimple Cohen R.N. - 12/21/2023 6:17 PM CDT Problem: SAFETY ADULT Goal: Maintain a [...] from injury while in restraint Outcome: Progressing Shift Goals: Clinical Goals for the Shift: safety Identify possible barriers to meeting goals/advancing plan of care: None End of Shift Summary: Patient is Alert and oriented to person and place. Able to make his needs known. Vitally stable. Room air. Denies any pain; Minimal intake encouraging to eat.Voiding good. Continue on 1:1 monitor for safety. * Nitish العلي R.N. - 12/18/2023 5:31 PM CDT Shift Goals: Clinical Goals for the Shift: Safety, Care Compliance Identify possible barriers to meeting goals/advancing plan of care: none End of Shift Summary: optimal, Patient have remain safe in chair or bed with REGIONAL VICE PRESIDENT SURGICAL SALES sitting at the bedside to monitor patient. Patient have been easily directed. Nursing will continue to reassess. * Michelle Bermeo R.N. - 12/17/2023 5:58 AM CDT Shift Goals: Clinical Goals for the Shift: Safety, Care Compliance Identify possible barriers to meeting goals/advancing plan of care: Acuity of illness End of Shift Summary: see handoff report Problem: SAFETY ADULT Goal: Maintain a safe environment Outcome: Progressing Problem: SAFETY ADULT - RISK FOR FALL AND OR FALL INJURY Goal: Patient remains free from fall/fall injury Outcome: Progressing Problem: PAIN - ADULT Goal: PT VERBALIZES/DEMONSTRATES ADEQUATE COMFORT LEVEL OR BASELINE Outcome: Progressing Problem: Incontinence and/or Moisture Goal: Skin integrity is maintained or improved Outcome: Progressing * Ivy Rodrigez R.N. - 12/15/2023 6:20 PM CDT Shift Goals: Clinical Goals for the Shift: Safety, Care Compliance Identify possible barriers to meeting goals/advancing plan of care: None End of Shift Summary: VSS. He refused Tylenol after stating he had a headache. He refused meals today saying that he did not want to eat. Patient remained safe during this shift. Problem: [...] injury while in restraint Outcome: Progressing * Norma Mercado R.N. - 12/12/2023 8:32 AM CDT Shift Goals: Clinical Goals for the Shift: maintain safety, manage pain Identify possible barriers to meeting goals/advancing plan of care: none End of Shift Summary: Alert to person, disoriented to time and place. He gently refused to take medications, despite explaining the need for them. PVR at 2030 pm was over 500 ml, but he rejected IO cath, Service explainedto the patient the amount of urine remaining in his bladder and the need for a IO cath, but he politely but clearly refused, Doctor asked him for permission to place an PIV line in case of an emergency, but he made it clear that he did not want any contact with his body. Service decided to leave him sleep without any more trials of bladder scans and medications overnight. He slept for a while, but woke up and tried to get out of bed three times. He became slightly aggressive around 2 AM but came down after redirection (reading a Bible and listening to music). Keep video monitoring combined with 1:1 monitoring, He voided 200 ml by himself at 5 a.m. and voided one more time at 6 a.m. Problem: SAFETY ADULT Goal: Maintain a safe [...] injury while in restraint Outcome: Progressing * Velvet Arias RJamil - 12/10/2023 7:33 PM CDT Problem: SAFETY ADULT Goal: Maintain a [...] from injury while in restraint Outcome: Progressing Shift Goals: Clinical Goals for the Shift: vss and safe Identify possible barriers to meeting goals/advancing plan of care: NONE End of Shift Summary: Both goals met. VSS. A foam mephi sacrum border was placed on the pt's sacrum/coccyx. Pt was turned through out the shift with foam repositioning wedges. * Jo Sotelo RJamil - 12/10/2023 2:42 PM CDT Shift Goals: Clinical Goals for the Shift: Patient will remain safe and free from falls Identify possible barriers to meeting goals/advancing plan of care: confusion, impulsive End of Shift Summary: Patient was irritable today and non compliant with medications and cares fromlack of sleep last night. Melatonin will be added to medication list for bedtime and keep up in thechair x2 and active today to help facilitate more rest tonight. Continues with urinary retention requiring straight cath prn. Bowel movement today. Needs frequent reminders when assisting to commode or chair to not put full weight onto left leg. Tolerating diet well. * Ivy Rodrigez R.N. - 12/08/2023 11:02 [...] was able to get outside with the REGIONAL VICE PRESIDENT SURGICAL SALES. Patient remained safe during this shift. Problem: [...] has been awake for much of the associate director of nursing. Pleasantly confused. Last evening mentioned seeing 2 frogs in his room (actually trash on his floor and an electrical box on the wall) but no other hallucinations present since. Drain and vac DC'd by sx last evening. Continues to require I&O cathing. Pleasant and cooperative. * Rogelio Arriola R.N. - 12/04/2023 8:05 AM CDT Computer Laboratory Technician was paged for staff assist in pt [...] found comfort reading the Bible with the REGIONAL VICE PRESIDENT SURGICAL SALES. Pain waswell controlled with sched medications. Pt [...] restrained since 11/27 0700. * Nancy Layne RTarikRTarikT. - 11/27/2023 10:40 AM CDT Patient is [...] 11/27/23 10:40 AM CDT * Rommel Huber R.R.TTarik, L.R.TTarik - 11/27/2023 6:06 AM CDT Patient is [...] HCO3 ART 26 BASE EXC ART 2 Shantanu ManjarrezRTarikTTarik, L.R.TTarik 11/27/23 6:06 AM CDT * Nancy Layne R.R.TTarik - 11/26/2023 1:24 PM CDT Patient is [...] 23 BASE EXC ART -1 Nancy Layne RTarikRTarikTTarik 11/26/23 1:24 PM CDT * Kandy Mann L.R.TTarik, FISHING LURE ASSEMBLER-ACCS - 11/25/2023 5:24 PM CDT Patient is [...] BASE EXC ART -4 L Lawrence Hurtado, FISHING LURE ASSEMBLER-ACCS 11/25/23 5:24 PM CDT * Umm Carbone R.RTarikTTarik, L.R.T. - 11/24/2023 8:26 PM CDT Patient [...] 4:31 AM CDT * Bereket Pike R.R.T., L.R.TTarik - 11/23/2023 6:26 PM CDT Patient started [...] discontinued in phase 3. Bereket Pike R.R.T., SybilR.T. 11/23/23 6:27 PM CDT * CabbageBereket R.R.T., L.RDeepak. - 11/23/2023 6:25 PM CDT Patient is [...] bearing. Please contact OTS 1 team at [phone] with any questions regarding the Orthopedic management of this patient. * Flavia Brown R.R.T. LTarikR.T. - 11/23/2023 1:12 PM CDT RT present [...] Diagnosis Fracture Acetabulum Closed Initial Left (HCC) Black Off Worker A certified dental assistant actively participated and was necessary for one [...] removed the clamps and then selected the [employer] intrapelvic plate. This plate was placed through [...] intervention. The patient was admitted to the [facility] ICU for further evaluation and treatment. [...] embolization. Will plan to admit to 7 [facility] ICU on trauma surgery team. Final [...] Care for this patient was transferred to nv at shift change. Please see associated documentation [...] Conscious Initial (HCC) Other Shock (Hemorrhagic Shock) ([facility]) Bereket Snider M.D. Resident 11/23/231707 documented in this encounter Miscellaneous Notes * Hospital Course - Rody Arriaga APRN, C.N.P., D.N.P. - 11/23/2023 5:56 PM CDT #1 Status post Fall 6 feet from Ladder Mr. Grayson was transported to [facility] as a level red trauma for further evaluation and management of injuries sustained when he fell from a ladder. CT scans of the head, spine, chest,abdomen, and pelvis were obtained as well as [...] in the hospital which was read by neurosurgeryand showed the subarachnoid hemorrhage seen on 12/01/2023 remains absent. They will follow up with him over the phone. #4 Fracture Rib One Open Initial Left #5 Atelectasis #6 Effusion Pleural Left anterior 6th rib fracture He was initiated on trauma rib fracture protocol. Chest x-rays were monitored closely. He continuedwith pulmonary hygiene throughout hospitalization. No follow up [...] extended period of time due to head bleed.He underwent serial ultrasound imaging of bilateral lower [...] on 12/20 with medications given whole with pureedbites. #16 Retention Urinary After indwelling urinary catheter [...] were made prior to dismissal by the [place]. At the time of discharge, he was tolerating a regular diet with adequate intake, had no pain, was mobilizing with assistance and assisted devices, had adequate urine output (intermittent catheterization by ), and regular bowel function. He was discharged home on 12/26 [facility] documented in this encounter Plan of Treatment Upcoming Encounters Date Type Department Care Team (Latest Contact Info) Description 01/30/2024 10:20 AM CDT Appointment Department of Laboratory Medicine in [place], [place] [address] [place] [phone] Rody Arriaga APRN, C.N.P., D.N.P. [address] [place] [phone] 02/06/2024 10:30 AM CDT Comprehensive Visit Department of Urology in [place], [place] [address] [place] [address] Rogelio Díaz M.D. [address] [place] [address] 02/13/2024 2:45 PM CDT Clinical Communication Virtual Review in [place], [place] [address] [place] [address] 02/17/2024 12:00 PM CDT Appointment Department of Radiology, [facility], in [address] [phone] Sera Avila P.A.-C., M.S. [address] [place] [phone] 02/17/2024 12:30 PM CDT Office Visit Department of Orthopedic Surgery in [place], [place] [address] [place] [phone] Naveed Higuera M.D. [address] [place] [phone] Pending Results Name Type Priority Associated Diagnoses [...] Type Priority Associated Diagnoses Orde r Schedule URO Uroflow Procedure Routine Retention Urinary Expected: 12/27/2023, Expires: 03/28/2025 Urinalysis, with Microscopic: Urine, Midstream Lab Routine Retention Urinary Expected: 12/27/2023, Expires: 03/28/2025 Scheduled Referrals Name Type Priority Associated Diagnoses Orde r Schedule Urology - General - urinary retention consult (clinic) Outpatient Referral Routine Retention Urinary Expected: 12/27/2023, Expires: 03/28/2025 documented as of this encounter Procedures Procedure Name Priority Date/Time Associated Diagnosis Comments CT HEAD WITHOUT IV CONTRAST RAD - Routine (most inpatients and all outpatients) 12/26/2023 11:13 AM CDT DX PELVIS 3+ VIEWS RAD [...] Acetabulum Closed Initial Left (HCC) Special Needs Supine.Hyder pelvis set.Shanz pins. PATIENT STATUS Timed 11/25/2023 [...] CDT documented in this encounter Results * CT Head without IV Contrast (12/26/2023 11:13 AM CDT) Anatomical Region Laterality Modality Head, Neuroradiology RST [facility] , Neuroradiology ARZ [facility], Neuroradiology FLA [facility] N/A Computed Tomography, Compute d Tomography 12/26/2023 [...] C.N.P., M.S.N. I MG CT PROCEDURES * DX Pelvis 3+ Views (12/25/2023 8:47 AM CDT) Anatomical Region Laterality Modality Pelvis, Musculoskeletal [...] Basic Metabolic Panel (12/24/2023 3:30 PM CDT) Potassium, S 4.5 3.6 - [...] APRN, C.N.P., M.S.N. L AB BLOOD ADD-ON [facility] [address] [facility] 200 [place] [address] * US Lower Extremity Veins Left (12/19/2023 [...] and management can be found on the [employer] site. Link [email or web address]://[employer].[email or web address]/topic/clinical-answers/cnt-[email or web address]/[facility]-[email or web address] [address]451 Procedure Note Rommel Granados M.D. - 12/19/2023 [...] thrombosis and management can be found on theAccruent site. Linkhttps://[employer].[facility] springsDealHamsterorg/topic/clinical-answers/cnt-[email or web address]/[facility] -2049 1725 IMPRESSION: Stable venous ultrasound exam of the left lower extremity. No significantchange in the short segment acute DVT in the left soleal vein comparedultrasound 12/12/2023. Garland Meyer P.A.-C. IMG US PROCEDURES * (ABNORMAL) Basic Metabolic Panel (12/13/2023 9:12 PM CDT) Potassium, S 4.3 3.6 - 5.2 mmol/L 12/13/2023 10:07 PM CDT DTL Sodium, S 138 135 - 145 mmol/L 12/13/2023 10:07 PM CDT DTL Chloride, S 103 98 - 107 mmol/L 12/13/2023 10:07 PM CDT DTL Bicarbonate, S 25 22 - 29 mmol/L 12/13/2023 10:07 PM CDT DTL Anion Gap 10 7 - 15 12/13/2023 10:07 PM CDT DTL BUN (Blood Urea Nitrogen), S 25(H) 8 - 24 mg/dL 12/13/2023 10:07 PM CDT DTL Creatinine 1.02 0.74 - 1.35 mg/dL 12/13/2023 10:07 PM CDT DTL Estimated GFR (eGFR) 74 >=60 mL/min/BSA 12/13/2023 10:07 PM CDT DTL Comment: Estimated GFR calculated using the 2020 CKD_EPI creatinine equation. Calcium, Total, S 8.2(L) 8.8 - 10.2 mg/dL 12/13/2023 10:07 PM CDT DTL Glucose, S 109 70 - 140 mg/dL 12/13/2023 10:07 PM CDT DTL Blood (Blood, Venous) 12/13/2023 9:12 PM CDT 12/13/2023 9:53 PM CDT Bentley Silva APRN, C.N.P., M.S.N. LA Cipriano BLOOD ADD-ON [facility] [address] [place] [address], [facility] [address] [place] [address] * CT Head without IV Contrast (12/12/2023 2:13 PM CDT) Anatomical Region Laterality Modality Head, Neuroradiology RST LOS , Neuroradiology ARZ LOS, Neuroradiology FLA LOS N/A Computed Tomography, Compute d Tomography 12/12/2023 2:11 PM CDT Impressions 12/12/2023 2:18 PM CDT 1. Interval resolution of the previously noted dependent intraventricular hemorrhage involving the occipital horn of the left lateral ventricle. 2. No acute intracranial findings. Narrative 12/12/2023 2:18 PM CDT EXAM: CT HEAD WITHOUT IV CONTRAST COMPARISON: Prior CT study from 12/01/2023 FINDINGS: Interval resolution of the previously noted dependent intraventricular hemorrhage involving the occipital horn of the left lateral ventricle. No new interval intracranial hemorrhage. No evidence of any acute vascular distribution infarct, significant mass effect or midline shift. Bilateral periventricular leukoaraiosis. Vascular calcifications. Partly empty sella as before. Bilateral pseudophakia. Unremarkable bilateral mastoid air cells. No displaced calvarial fractures. Procedure Note Jose Miguel Alonzo M.B.B.S., M.MED. - 12/12/2023 EXAM: CT HEAD WITHOUT IV CONTRAST COMPARISON: Prior CT study from 12/01/2023 FINDINGS: Interval resolution of the previously noted dependentintraventricular hemorrhage involving the occipital horn of the leftlateral ventricle. No new interval intracranial hemorrhage. No evidence ofany acute vascular distribution infarct, significant mass effect or midline shift. Bilateral periventricularleukoaraiosis. Vascular calcifications. Partly empty sella as before. Bilateral pseudophakia. Unremarkablebilateral mastoid air cells. No displaced calvarial fractures. IMPRESSION: 1. Interval resolution of the previously noted dependent intraventricularhemorrhage involving the occipital horn of the left lateral ventricle. 2. No acute intracranial findings. Cristal Johnson P.A.-C. Janna CT PROCEDUR ES * US Lower Extremity Veins Bilateral (12/12/2023 10:14 AM CDT) Anatomical Region Laterality Modality Lower [...] and management can be found on the [employer] site. Link [email or web address]/topic/clinical-answers/cnt-[email or web address]/cpm-204 45806 Procedure Note Carol Bailey M.D. - 12/12/2023 [...] thrombosis and management can be found on theAccruent site. Linkhttps://[employer].[email or web address]/topic/clinical-answers/cnt-[email or web address]/[facility] -2049 1725 IMPRESSION: Positive for acute DVT. Partial improvement of the previously noted acuteDVT with residual occlusive acute DVT in one of the soleal veins. Barb Davies M.D. [facility] US PROCEDURES * Phosphorus Inorganic (12/09/2023 9:10 PM CDT) Phosphorus (Inorganic), S 3.4 2.5 - 4.5 mg/dL 12/09/2023 10:09 PM CDT DTL Blood (Blood, Venous) 12/09/2023 9:10 PM CDT 12/09/2023 9:53 PM CDT Barb Davies M.D. LAB BLOOD ADD-ON Performing Organization Address [facility]/ZIP Co de Phone Number [facility] [address] [facility] [facility] [address] [place] [address] * Magnesium (12/09/2023 9:10 PM CDT) Magnesium, S 2.1 1.7 - 2.3 mg/dL 12/09/2023 10:09 PM CDT DTL Blood (Blood, Venous) 12/09/2023 9:10 PM CDT 12/09/2023 9:53 PM CDT Barb Davies M.D. LAB BLOOD ADD-ON Performing Organization Address City/[facility]/ZIP Co de Phone Number [facility] [address] [place], [place] [phone] [place] [address] [facility] [address] [place] [address] * (ABNORMAL) Basic Metabolic Panel (12/09/2023 9:10 PM CDT) Potassium, S 5.1 3.6 - 5.2 mmol/L 12/09/2023 10:09 PM CDT DTL Sodium, S 136 135 - 145 mmol/L 12/09/2023 10:09 PM CDT DTL Chloride, S 101 98 - 107 mmol/L 12/09/2023 10:09 PM CDT DTL Bicarbonate, S 26 22 - 29 mmol/L 12/09/2023 10:09 PM CDT DTL Anion Gap 9 7 - 15 12/09/2023 10:09 PM CDT DTL BUN (Blood Urea Nitrogen), S 29(H) 8 - 24 mg/dL 12/09/2023 10:09 PM CDT DTL Creatinine 1.13 0.74 - 1.35 mg/dL 12/09/2023 10:09 PM CDT DTL Estimated GFR (eGFR) 65 >=60 mL/min/BSA 12/09/2023 10:09 PM CDT DTL Comment: Estimated GFR calculated using the 2020 CKD_EPI creatinine equation. Calcium, Total, S 8.0(L) 8.8 - 10.2 mg/dL 12/09/2023 10:09 PM CDT DTL Glucose, S 140 70 - 140 mg/dL 12/09/2023 10:09 PM CDT DTL Blood (Blood, Venous) 12/09/2023 9:10 PM CDT 12/09/2023 9:53 PM CDT Barb Davies M.D. LAB BLOOD ADD-ON [facility] [address] [place] [address], [facility] [address] [place] [address] * (ABNORMAL) Basic Metabolic Panel (12/06/2023 9:06 PM CDT) [facility] Potassium, S 4.5 3.6 - 5.2 mmol/L [...] Mancilla APRN, C.N.P., D.N.P. LAB BLOOD ADD-ON [facility] [address] [place] [address], [facility] [address] [place] [address] * DX Chest Portable 1 View (12/06/2023 [...] volumes accentuate the cardiomediastinal silhouette. Lalita Bacon APRN C.N.P., D.N.P. IMG D [...] D.N.P. LAB B LOOD ADD-ON [facility] [address] [place] [address], [facility] DTL [facility] 200 [place] [address] * (ABNORMAL) CBC without Differential (12/05/2023 8:57 PM CDT) Hemoglobin 10.4(L) 13.2 - 16.6 g/dL 12/05/2023 [...] APRN, C.N.P., D.N.P. LAB B LOOD ADD-ON [facility] [address] [place] [address], [facility] [address] [place] [address] * US Lower Extremity Veins Bilateral (12/05/2023 [...] and management can be found on the [employer] site. Link https://[employer].[email or web address].org/topic/clinical-answers/cnt-[email or web address]/cpm-204 29060 Procedure Note Barry Bennett M.D., M.S. - [...] management can be found on theAskMayoExpert site. Linkhttps://askmayoexpert.[email or web address].org/topic/clinical-answers/cnt-[email or web address]/[facility] -2049 1725 IMPRESSION: Unchanged acute DVT in [...] PELVIS 1-2 VIEWS Procedure Note Santosh Bruno M.B.B.STarik - 12/04/2023 EXAM: DX PELVIS 1-2 VIEWS [...] 9:19 PM CDT Lalita Bacon APRN C.N.P., Olivia.N.P. LAB B BRYCE ADD-ON [facility] [address] [place] [address], [facility] DTL [facility] [address] [place] [address] * (ABNORMAL) CBC with Differential, Blood (12/02/2023 [...] - 6.45 x10(9)/L 12/02/2023 10:[address] [facility] Comment:Rechecked Lymphocytes 0.90(L) 0.95 - 3.07 [...] APRN, C.N.P., D.N.P. LAB B LOOD ADD-ON [facility] [address] [place] [address], [facility] DTL [facility] [address] [place] [address] [facility] [address] [place] [address] * DX Abdomen 1 View (12/02/2023 5:41 [...] Anatomical Region Laterality Modality Head, Neuroradiology RST [facility] , Neuroradiology [facility], Neuroradiology [facility] N/A Computed Tomography, Compute d Tomography [...] bilateral pleuraleffusions. Bibasilar atelectasis. No pneumothorax. Naveed KimCTarik IMG DIAGNOSTIC IMAGING PROCEDURES * DX Abdomen [...] Naveed Dan P.A.-C. LAB BLOOD ADD- ON [address] [address], [facility] [address] [address] * (ABNORMAL) CBC without Differential (12/01/2023 7:09 [...] Naveed Dan P.A.-C. LAB BLOOD ADD- ON [facility] [address] [place] [address], [place] DTL [facility] [address] [place] [address] * DX Abdomen 1 View (11/30/2023 5:45 [...] Left pelvic soft tissue surgical drains. Naveed HUBER DIAGNOSTIC IMAGING PROCEDURES * CT Head without IV Contrast (11/30/2023 5:34 AM CDT) Anatomical Region Laterality Modality Head, Neuroradiology RST [facility] , Neuroradiology [facility], Neuroradiology [facility] N/A Computed Tomography, Compute d Tomography 11/30/2023 [...] Mild leukoaraiosis. Intracranial arterial calcifications. Procedure Note Georgnia Apple M.D. - 11/30/2023 EXAM: CT HEAD [...] lateralventricle. No new hemorrhage. Naveed Dan P.A.-C. IM CT PROCEDU RES * (ABNORMAL) Basic Metabolic Panel (11/29/2023 9:20 PM CDT) Pathologist [facility] Potassium, S 4.7 3.6 - 5.2 mmol/L [...] Naveed Dan P.A.-C. LAB BLOOD ADD- ON [facility] 200 [place] [address], [facility] [address] [address] * (ABNORMAL) CBC without Differential (11/29/2023 9:20 PM CDT) Pathologist [facility] Hemoglobin 10.4(L) 13.2 - 16.6 g/dL 11/29/2023 [...] Naveed Dan P.A.-C. LAB BLOOD ADD- ON [facility] [address] [place] [address], [facility] 200 [place] [address] * DX Abdomen Portable Anterior Posterior 1 [...] Overnight (11/29/2023 7:52 AM CDT) 11/28/2023 Impressions [facility] - 11/29/2023 1:47 PM CDT Overnight oximetry [...] current supplemental oxygen. Physician: Hema Owens M.D. [id number] Narrative Procedure Note Hema Owens M.D. - [...] thecurrent supplemental oxygen. Physician: Hema Owens M.D. [id number] Josee Rose M.D. [facility] * CT Head without IV [...] Naveed Dan P.A.-C. LAB BLOOD ADD- ON [address] [address], [facility] [address] [address] * (ABNORMAL) CBC without Differential (11/29/2023 7:01 [...] Naveed Dan P.A.-C. LAB BLOOD ADD- ON [facility] [address] [place] [address], [facility] [address] [place] [address] * DX Chest Portable 1 View (11/29/2023 [...] Organization Address City/[facility]/ZIP Co de Phone Number [facility] [address] STMA [facility] 200 [place] [address] * Phosphorus Inorganic (11/28/2023 9:01 PM CDT) Phosphorus (Inorganic), S 2.5 2.5 - 4.5 mg/dL 11/28/2023 10:02 PM CDT DTL Blood (Blood, Venous) 11/28/2023 9:01 PM CDT 11/28/2023 9:49 PM CDT Barb Davies M.D. LAB BLOOD ADD-ON Performing Organization Address City/[facility] Co de Phone Number [facility] [address] DTL [facility] [address] [place] [address] * Magnesium (11/28/2023 9:01 PM CDT) Magnesium, S 2.1 1.7 - 2.3 mg/dL 11/28/2023 10:02 PM CDT DTL Blood (Blood, Venous) 11/28/2023 9:01 PM CDT 11/28/2023 9:49 PM CDT Barb Davies M.D. LAB BLOOD ADD-ON [facility] [address] [place] [address], [facility] DTL [facility] [address] [place] [address] * (ABNORMAL) Basic Metabolic Panel (11/28/2023 9:01 [...] CDT Barb Davies M.D. LAB BLOOD ADD-ON [facility] [address] [place] [address], [facility] STMA [facility] [address] [place] [address] * (ABNORMAL) Troponin T, Baseline with 2 Hour/6 Hour Reflex Biomarker Panel (11/28/2023 9:01 PM CDT) Troponin T, Baseline, 5th gen 31(H) <=15 ng/L 11/28/2023 9:26 PM CDT STMA Blood (Blood, Venous) 11/28/2023 9:01 PM CDT 11/28/2023 9:06 PM CDT Barb Davies M.D. LAB BLOOD TROPONIN Performing Organization Address City/[facility] Co de Phone Number [facility] [address] [place] [address], [facility] [address] [place] [address] * ECG 12 Lead (11/28/2023 8:57 PM CDT) Ventricular Rate ECG/Min 88 BPM MUSE LA Interval 136 ms MUSE QRSD Interval 86 ms MUSE QT Interval 384 ms MUSE QTC Interval 464 ms MUSE P [place] 33 degrees MUSE R [place] 7 degrees MUSE T Wave [place] 10 degrees MUSE 11/28/2023 8:57 PM CDT [...] Davies M.D. ECG ORDERABLES Performing Organization Address [facility]/ZIP Co de Phone Number MUSE NA * [...] and management can be found on the [employer] site. Link [email or web address]/topic/clinical-answers/cnt-[email or web address]/cpm-[email or web address] 73021 Findings discussed via telephone with Naveed Dan PA-C ([id number]) at 15:44 on 11/28/2023. Procedure Note Delbert [...] management can be found on theAskMayoExpert site. Linkhttps://[email or web address]/topic/clinical-answers/cnt-[email or web address]/cpm -2049 1725 Findings discussed via telephone with Naveed Dan PA-C ([id number]) at15:44 on 11/28/2023. IMPRESSION: Positive for acute DVT in the left lower extremity involving the solealvein. Naveed Dan P.A.-C. IMG US PROCEDU RES * (ABNORMAL) Basic Metabolic Panel (11/28/2023 7:41 AM CDT) [facility] Potassium, S 3.9 3.6 - 5.2 [...] LAB BLOOD ADD- ON Performing Organization Address [facility] Co de Phone Number [facility] [address] [place] [address], [facility] DTL [facility] [address] [place] [address] * (ABNORMAL) CBC without Differential (11/28/2023 7:41 AM CDT) [facility] Hemoglobin 10.2(L) 13.2 - 16.6 g/dL 11/28/2023 [...] Organization Address City/[facility]/ZIP Co de Phone Number [facility] [address] [place] [address], [facility] DTL [facility] [address] [place] [address] * ECG 12 Lead (11/28/2023 4:04 AM CDT) [facility] Ventricular Rate ECG/Min 59 BPM MUSE LA Interval 126 ms MUSE QRSD Interval 88 ms MUSE QT Interval 436 ms MUSE QTC Interval 431 ms MUSE P [place] 46 degrees MUSE R [place] 45 degrees MUSE T Wave [place] 23 degrees MUSE 11/28/2023 4:04 AM CDT [...] Rose M.D. ECG ORDERABLES Performing Organization Address City/[facility]/ZIP Co de Phone Number MUSE NA * Phosphorus Inorganic (11/27/2023 6:37 PM CDT) [facility] Phosphorus (Inorganic), S 2.8 2.5 - 4.5 mg/dL 11/27/2023 7:49 PM CDT DTL Blood (Blood, Venous) 11/27/2023 6:37 PM CDT 11/27/2023 7:19 PM CDT Serafin Ford M.D. LAB BLOOD ADD-ON [facility] [address] [place] [address], [facility] DTL [facility] [address] [place] [address] * (ABNORMAL) Basic Metabolic Panel (11/27/2023 6:37 [...] Ford M.D. LAB BLOOD ADD-ON [facility] [address] [place] [address], [facility] LaboratoriesUnited [facility] [address] [place] [address] * DX Chest Portable 1 View (11/27/2023 [...] changes of the spine. Serafin Ford M.D. [facility] DIAGNOSTIC IMAGI NG PROCEDURES * DX Abdomen [...] CDT Serafin Ford M.D. LAB BLOOD [place] [address] * (ABNORMAL) Calcium, Ionized (11/27/2023 6:13 AM CDT) [facility] Calcium, Ionized, S 4.41(L) 4.57 - 5.43 mg/dL 11/27/2023 7:12 AM CDT DTL Comment: ----ADDITIONAL INFORMATION---- This test has been modified from the senior database administrator's instructions. Its performance characteristics were determined by [facility] in a manner consistent with CLIA requirements. This test has not been cleared or approved by the U.S. Food and Drug Administration. pH for Ionized Calcium 7.46 7.35 - 7.48 11/27/2023 7:12 AM CDT DTL Blood (Blood, Venous) 11/27/2023 6:13 AM CDT 11/27/2023 6:53 AM CDT Charlotte Ordaz APRN, C.N.P., D.N.P. [place] [address] * (ABNORMAL) CBC without Differential (11/27/2023 6:13 AM CDT) [facility] Hemoglobin 10.5(L) 13.2 - 16.6 g/dL 11/27/2023 [...] CDT Serafin Ford M.D. LAB BLOOD ADD-ON [facility] [address] [place] [address], [facility] [address] [place] [address] * (ABNORMAL) Basic Metabolic Panel (11/27/2023 6:13 AM CDT) Pathologist [facility] Potassium, S 4.4 3.6 - 5.2 mmol/L [...] Organization Address City/[facility]/ZIP Co de Phone Number [facility] [address] [place], [place] [id number] [place] [address] 200 [place] [address] * (ABNORMAL) Magnesium (11/27/2023 6:13 AM CDT) Magnesium, S 2.4(H) 1.7 - 2.3 mg/dL 11/27/2023 7:14 AM CDT DTL Blood (Blood, Venous) 11/27/2023 6:13 AM CDT 11/27/2023 6:53 AM CDT Serafin Ford M.D. LAB BLOOD ADD-ON Performing Organization Address City/[facility]/ZIP Co de Phone Number [facility] [address] [place], [place] [phone] [place] [address] [address] [place] [address] * (ABNORMAL) Phosphorus Inorganic (11/27/2023 6:13 AM CDT) Phosphorus (Inorganic), S 1.4(L) 2.5 - 4.5 mg/dL 11/27/2023 7:14 AM CDT DTL Blood (Blood, Venous) 11/27/2023 6:13 AM CDT 11/27/2023 6:53 AM CDT Serafin Ford M.D. LAB BLOOD ADD-ON [facility] [address] [place], [place] [id number] [address] [place] [address] 200 [place] [address] * (ABNORMAL) Basic Metabolic Panel (11/26/2023 5:29 [...] Ordaz APRN, C.N.P., D.N.P. LAB BLOOD ADD-ON [facility] [address] [place] [address], [facility] [address] [place] [address] * Patient Status (11/26/2023 5:28 PM CDT) Pathologist [facility] O2 Flow 6.0 L/min 11/26/2023 5:32 PM CDT STMA Device NC 11/26/2023 5:32 PM CDT STMA Spont. breaths/min 18 11/26/2023 5:32 PM CDT STMA Blood 11/26/2023 5:28 PM CDT 11/26/2023 5:32 PM CDT Charlotte A Sushma MONTERROSO, C.N.P., D.N.P. LAB BLOOD NON ADD-ON [facility] [address] [place] [address], [facility] STMA [facility] [address] [place] [address] * (ABNORMAL) Blood Gas with Coox, Arterial [...] Pelayo APRN.N.P., D.N.P. LAB BLOOD NON ADD-ON [facility] [address] [place] [address], [facility] [address] [place] [address] * DX Chest Portable 1 View (11/26/2023 [...] changes of the skeleton. Charlotte Ordaz APRN, Barbara.N.P., D.N.P. IMG DIAGNOSTIC IMAGING PROCEDURES * (ABNORMAL) [...] CDT Serafin Ford M.D. LAB BLOOD ADD-ON [facility] [address] 200 [place] [address] * pH (11/26/2023 11:21 AM CDT) pH 7.45 7.35 - 7.45 pH 11/26/2023 11:27 AM CDT STMA Blood 11/26/2023 11:2 1 AM CDT 11/26/2023 11:26 AM CDT Charlotte Ordaz APRN C.N.P., D.N.P. LAB HISTORICAL ORDERS [facility] [address] [place] [address] * (ABNORMAL) Calcium, Ionized (11/26/2023 11:21 AM CDT) Calcium, Ionized, B 4.56(L) 4.65 - 5.30 mg/dL 11/26/2023 11:29 AM CDT STMA Blood (Blood, Venous) 11/26/2023 11:21 AM CDT 11/26/2023 11:26 AM CDT Charlotte Ordaz APRN, C.N.P., D.N.P. LAB BLOOD NON ADD-ON Performing Organization Address [facility] Co de Phone Number [facility] [address] [place] [address], [facility] [address] [place] [address] * ECG 12 Lead (11/26/2023 8:06 AM CDT) Ventricular Rate ECG/Min 79 BPM MUSE LA Interval 134 ms MUSE QRSD Interval 94 ms MUSE QT Interval 380 ms MUSE QTC Interval 435 ms MUSE P [place] 37 degrees MUSE R [place] 15 degrees MUSE T Wave [place] 18 degrees MUSE 11/26/2023 8:06 AM CDT [...] Reviewed by ANTONIETA Owens Charlotte Ordaz APRN, C.N.P., D.N.P. ECG ORDERABLES Performing Organization Address City/[facility]/ZIP Co de Phone Number MUSE NA * Patient Status (11/26/2023 7:49 AM CDT) O2 Flow 2.0 L/min 11/26/2023 7:52 AM CDT STMA Device NC 11/26/2023 7:52 AM CDT STMA Spont. breaths/min 22 11/26/2023 7:52 AM CDT STMA Blood 11/26/2023 7:49 AM CDT 11/26/2023 7:52 AM CDT Shay Lee M.D. LAB BLOOD NON ADD-ON [facility] [address] [place] [address], [facility] STMA [facility] [address] [place] [address] * (ABNORMAL) Blood Gas with Coox, Arterial [...] Shay Lee M.D. LAB BLOOD NON ADD-ON [facility] [address] [place] [address] * (ABNORMAL) Magnesium (11/26/2023 7:48 AM CDT) Magnesium, S 1.6(L) 1.7 - 2.3 mg/dL 11/26/2023 11:13 AM CDT DTL Blood (Blood, Venous) 11/26/2023 7:48 AM CDT 11/26/2023 8:20 AM CDT Shay Lee M.D. LAB BLOOD ADD-ON [facility] [address] [place] [address] * (ABNORMAL) CK (Creatine Kinase) (11/26/2023 7:48 AM CDT) Creatine Kinase (CK), S 1733(H) 39 - 308 U/L 11/26/2023 11:13 AM CDT DTL Blood (Blood, Venous) 11/26/2023 7:48 AM CDT 11/26/2023 8:20 AM CDT Hilda Carranza APRN, C.N.P., M.S.N. JOHANNA Cota BLOOD ADD-ON [facility] [address] 200 [place] [address] * (ABNORMAL) Basic Metabolic Panel (11/26/2023 7:48 [...] APRN, C.N.P., M.S.N. LA B BLOOD ADD-ON [facility] [address] [place] [address], [facility] [address] [place] [address] * (ABNORMAL) CBC without Differential (11/26/2023 7:48 AM CDT) Pathologist [facility] Hemoglobin 8.6(L) 13.2 - 16.6 g/dL 11/26/2023 [...] Carranza APRN, C.N.P., M.S.N. JOHANNA Cota BLOOD ADD-ON [address] [address], [facility] [place] [place] [address] * Thromboelastograph, Kaolin, Blood (11/26/2023 7:45 AM [...] APRN, C.N.P., D.N.P. LAB BLOOD NON ADD-ON [facility] [address] [place] [address], [facility] [address] [place] [address] * Transfuse Fresh Frozen Plasma :Bleeding with altered coagulation; 180 mL/hr (11/26/2023 7:09 AM CDT) Carlyn Rivas M.B.B.S. BLOOD TRANSFUSION O RDERABLES * Transfuse Fresh Frozen Plasma :Bleeding with altered coagulation; 180 mL/hr, 2 Units (11/26/2023 7:09 AM CDT) Carlyn Rivas M.B.B.S. BLOOD TRANSFUSION O RDERABLES * CT [...] the left lateralventricle. Hilda Carranza APRN, C.N.P., M.SRoberto. IM G CT PROCEDURES * Transfuse Fresh Frozen Plasma :Bleeding with altered coagulation; 180 mL/hr (11/26/2023 3:46 AM CDT) Carlyn Rivas M.B.B.S. BLOOD TRANSFUSION O RDERABLES * Transfuse Platelets :Other (Specify):; MTP; 180 mL/hr; No Special Requirements (11/26/2023 2:01 AM CDT) Carlyn Perez.B.B.S. BLOOD TRANSFUSION O [...] - 317 x10(9)/L 11/26/2023 1:[address] [facility] Comment:Results confirmed by smear, no clumping or interference seen. Leukocytes 8.6 3.4 - 9.6 x10(9)/L 11/26/2023 1:03 AM CDT STMA Blood (Blood, Venous) 11/25/2023 11:29 PM CDT 11/25/2023 11:33 PM CDT Shay Lee M.D. LAB BLOOD ADD-ON [facility] [address] [place] [address], [facility] [address] [place] [address] [facility] [address] [place] [address] * Transfuse Emergency Released Red Blood Cells [...] Shay Lee M.D. LAB BLOOD NON ADD-ON [facility] [address] [place] [address], [facility] [address] [place] [address] * (ABNORMAL) Blood Gas with Coox, Arterial [...] Shay Lee M.D. LAB BLOOD NON ADD-ON [facility] [address] [place] [address], [facility] [address] [place] [address] * Transfuse Emergency Released Red Blood Cells [...] Shay Lee M.D. LAB BLOOD NON ADD-ON [facility] 200 [place] [address], [facility] STMA [facility] 200 [place] [address] * (ABNORMAL) Basic Metabolic Panel (11/25/2023 9:05 PM CDT) Pathologist [facility] Potassium, P 4.2 3.6 - 5.2 mmol/L [...] CDT Shay Lee M.D. LAB BLOOD ADD-ON [facility] [address] [place] [address], [facility] [address] [place] [address] * (ABNORMAL) CBC without Differential (11/25/2023 9:05 PM CDT) Pathologist [facility] Hemoglobin 7.7(L) 13.2 - 16.6 g/dL 11/25/2023 [...] Organization Address City/[facility]/ZIP Co de Phone Number [facility] 200 [place], [place] [id number] [place] [address] 200 [place] [address] * (ABNORMAL) Thromboelastograph, Kaolin, Blood (11/25/2023 9:04 [...] Organization Address City/[facility]/ZIP Co de Phone Number [facility] 200 [place], [place] [id number] [place] [address] [address] [place] [address] * (ABNORMAL) Troponin T, 2 Hour with 6 Hour Reflex, 5th Gen (11/25/2023 5:38 PM CDT) Pathologist [facility] Troponin T, 2 hr, 5th gen 32(H) <=15 ng/L 11/25/2023 6:28 PM CDT STMA 2H Delta 0 ng/L 11/25/2023 6:28 PM CDT STMA Comment:6 hour collection no t indicated. 2H Delta Interp Not Changing 11/25/2023 6:28 PM CDT STMA Blood 11/25/2023 5:38 PM CDT 11/25/2023 6:00 PM CDT Charlotte Ordaz APRN, C.N.P., D.N.P. LAB BLOOD TROPONIN Performing Organization Address City/[facility]/ZIP Co de Phone Number [facility] [address] 200 [place] [address] * (ABNORMAL) pH (11/25/2023 3:32 PM CDT) pH 7.32(L) 7.35 - 7.45 pH 11/25/2023 3:41 PM CDT STMA Blood 11/25/2023 3:32 PM CDT 11/25/2023 3:37 PM CDT Serafin Ford M.D. LAB HISTORICAL ORDER S Performing Organization Address [facility] Co de Phone Number [facility] [address] [place] [address] * (ABNORMAL) Calcium, Ionized (11/25/2023 3:32 PM CDT) Calcium, Ionized, B 4.60(L) 4.65 - 5.30 mg/dL 11/25/2023 3:41 PM CDT STMA Blood (Blood, Venous) 11/25/2023 3:32 PM CDT 11/25/2023 3:37 PM CDT Serafin Ford M.D. LAB BLOOD NON ADD-ON Performing Organization Address City/[facility]/ZIP Co de Phone Number [facility] [address] [place] [address] * Phosphorus Inorganic (11/25/2023 3:31 PM CDT) Phosphorus (Inorganic), S 3.8 2.5 - 4.5 mg/dL 11/25/2023 4:29 PM CDT DTL Blood (Blood, Venous) 11/25/2023 3:31 PM CDT 11/25/2023 4:12 PM CDT Serafin Ford M.D. LAB BLOOD ADD-ON Performing Organization Address City/[facility]/ZIP Co de Phone Number [facility] [address] [place], [place] [phone] [place] [address] 200 [place] [address] * Magnesium (11/25/2023 3:31 PM CDT) Pathologist [facility] Magnesium, S 2.1 1.7 - 2.3 mg/dL 11/25/2023 4:29 PM CDT DT Blood (Blood, Venous) 11/25/2023 3:31 PM CDT 11/25/2023 4:12 PM CDT Serafin Ford M.D. LAB BLOOD ADD-ON Performing Organization Address City/[facility]/ZIP Co de Phone Number [facility] [address] [place] [address], [facility] 200 [place] [address] * (ABNORMAL) Troponin T, Baseline with 2 Hour/6 Hour Reflex Biomarker Panel (11/25/2023 3:30 PM CDT) Pathologist [facility] Troponin T, Baseline, 5th gen 32(H) <=15 ng/L 11/25/2023 4:05 PM CDT STMA Blood (Blood, Venous) 11/25/2023 3:30 PM CDT 11/25/2023 3:37 PM CDT Charlotte Ordaz APRN, C.N.P., DemetriusNLeon. LAB BLOOD TROPONIN Performing Organization Address [facility] Co de Phone Number [facility] [address] [place] [address], [facility] [address] [place] [address] * (ABNORMAL) CBC without Differential (11/25/2023 3:30 PM CDT) Pathologist [facility] Hemoglobin 9.3(L) 13.2 - 16.6 g/dL 11/25/2023 [...] CDT Serafin Ford M.D. LAB BLOOD ADD-ON [facility] [address] [place] [address], [facility] [address] [place] [address] * (ABNORMAL) Basic Metabolic Panel (11/25/2023 3:30 [...] Ford M.D. LAB BLOOD ADD-ON [facility] [address] [place] [address], [facility] [address] [place] [address] * ECG 12 Lead (11/25/2023 3:16 PM CDT) Ventricular Rate ECG/Min 80 BPM MUSE LA Interval 124 ms MUSE QRSD Interval 86 ms MUSE QT Interval 400 ms MUSE QTC Interval 461 ms MUSE P Luxora 48 degrees MUSE R [place] 27 degrees MUSE T Wave [place] 31 degrees MUSE 11/25/2023 3:16 PM CDT [...] C.N.P., D.N.P. ECG ORDERABLES Performing Organization Address [facility] Co de Phone Number MUSE NA [...] M.D. IMG FLUOROSCOPY PROCEDURES Performing Organization Address [facility] Co de Phone Number 152 [...] Organization Address City/[facility]/ZIP Co de Phone Number [facility] [address] [place] [address], [facility] 200 [place] [address] * (ABNORMAL) Glucose, Whole Blood (11/25/2023 1:31 PM CDT) Glucose 165(H) 70 - 140 mg/dL 11/25/2023 1:33 PM CDT STMA Blood (Blood, Arterial Line) 11/25/2023 1:31 PM CDT 11/25/2023 1:31 PM CDT Ale Tatum M.D. LAB BLOOD ADD-ON [facility] [address] [place] [address], [facility] 200 [place] [address] * Potassium, Blood (11/25/2023 1:31 PM CDT) Pathologist [facility] Potassium, B 3.7 3.6 - 5.2 mmol/L 11/25/2023 1:34 PM CDT STMA Blood (Blood, Arterial Line) 11/25/2023 1:31 PM CDT 11/25/2023 1:31 PM CDT Ale Tatum M.D. LAB BLOOD NON ADD-ON [facility] [address] [place] [address] * Sodium, B (11/25/2023 1:31 PM CDT) [facility] Sodium, B 141 135 - 145 mmol/L 11/25/2023 1:33 PM CDT [facility] Blood (Blood, Arterial Line) 11/25/2023 1:31 PM CDT 11/25/2023 1:31 PM CDT Ale Tatum M.D. LAB BLOOD NON ADD-ON Performing Organization Address City/[facility]/ZIP Co de Phone Number [facility] 200 [place], [place] [phone] [place] [address] 200 [place] [address] * (ABNORMAL) Calcium, Ionized (11/25/2023 1:31 PM CDT) [facility] Calcium, Ionized, B 4.34(L) 4.65 - 5.30 mg/dL 11/25/2023 1:34 PM CDT STMA Blood (Blood, Arterial Line) 11/25/2023 1:31 PM CDT 11/25/2023 1:31 PM CDT Ale Tatum M.D. LAB BLOOD NON ADD-ON [facility] [address] [place], [place] [address] [place] [address] [address] [place] [address] * (ABNORMAL) Blood Gas with Coox, Arterial [...] Ale Tatum M.D. LAB BLOOD NON ADD-ON [facility] [address] [place] [address], [facility] 200 [place] [address] * Transfuse autologous RBC (Cell Salvage) : (11/25/2023 12:34 PM CDT) Ael Tatum M.D. BLOOD TRANSFUSION OR DERABLES * (ABNORMAL) Hemoglobin, Whole Blood (11/25/2023 12:13 PM CDT) Hemoglobin, B 8.1(L) 13.2 - 16.6 g/dL 11/25/2023 12:14 PM CDT [facility] Blood (Blood, Arterial Line) 11/25/2023 12:13 PM CDT 11/25/2023 12:13 PM CDT Gogo Chavez APRN, CRNA LAB BLOOD NON A DD-ON Performing Organization Address City/[facility] Co de Phone Number [facility] [address] [place] [address] * Transfuse Red Blood Cells : (11/25/2023 11:50 AM CDT) Ale Tatum M.D. BLOOD TRANSFUSION OR DERABLES * Lactate, B - Intra-op (11/25/2023 11:09 AM CDT) Pathologist [facility] Lactate, B 1.1 0.5 - 2.2 mmol/L 11/25/2023 11:11 AM CDT [facility] Blood (Blood, Venous) 11/25/2023 11:09 AM CDT 11/25/2023 11:09 AM CDT Ale Tatum M.D. LAB BLOOD NON ADD-ON Performing Organization Address [facility] Co de Phone Number [facility] [address] [place] [address] * (ABNORMAL) Glucose, Whole Blood (11/25/2023 11:09 AM CDT) Glucose 143(H) 70 - 140 mg/dL 11/25/2023 11:11 AM CDT [facility] Blood (Blood, Arterial Line) 11/25/2023 11:09 AM CDT 11/25/2023 11:09 AM CDT Ale Tatum M.D. LAB BLOOD ADD-ON Performing Organization Address City/[facility]/ZIP Co de Phone Number [facility] [address] [place] [address], [facility] [address] [place] [address] * (ABNORMAL) Potassium, Blood (11/25/2023 11:09 AM CDT) Potassium, B 3.5(L) 3.6 - 5.2 mmol/L 11/25/2023 11:12 AM CDT [facility] Blood (Blood, Arterial Line) 11/25/2023 11:09 AM CDT 11/25/2023 11:09 AM CDT Ale Tatum M.D. LAB BLOOD NON ADD-ON Performing Organization Address City/[facility]/ZIP Co de Phone Number [facility] [address] [place], [place] [address] 200 [place] [address] * Sodium, B (11/25/2023 11:09 AM CDT) Sodium, B 139 135 - 145 mmol/L 11/25/2023 11:11 AM CDT [facility]MA Blood (Blood, Arterial Line) 11/25/2023 11:09 AM CDT 11/25/2023 11:09 AM CDT Ale Tatum M.D. LAB BLOOD NON ADD-ON [facility] [address] [place], [place] [address] [address] [place] [address] * Calcium, Ionized (11/25/2023 11:09 AM CDT) Calcium, Ionized, B 4.84 4.65 - 5.30 mg/dL 11/25/2023 11:12 AM CDT [facility] Blood (Blood, Arterial Line) 11/25/2023 11:09 AM CDT 11/25/2023 11:09 AM CDT Ale Tatum M.D. LAB BLOOD NON ADD-ON [facility] [address] [place] [address], [facility] STMA [facility] [address] [place] [address] * (ABNORMAL) Blood Gas with Coox, Arterial [...] Ale Tatum M.D. LAB BLOOD NON ADD-ON [facility] [address] [place] [address], [facility] STMA [facility] [address] [place] [address] * Transfuse Red Blood Cells : (11/25/2023 [...] CDT 11/25/2023 9:22 AM CDT Dillon Sanchez Jr., M.D. LAB BLOOD NON AD D-ON [facility] [address] [place] [address] * Glucose, Whole Blood (11/25/2023 9:22 AM CDT) Glucose 112 70 - 140 mg/dL 11/25/2023 9:24 AM CDT STMA Blood (Blood, Arterial Line) 11/25/2023 9:22 AM CDT 11/25/2023 9:22 AM CDT Ale Tatum M.D. LAB BLOOD ADD-ON [facility] 200 [place] [address], [facility] [address] [place] [address] * (ABNORMAL) Potassium, Blood (11/25/2023 9:22 AM CDT) Potassium, B 3.4(L) 3.6 - 5.2 mmol/L 11/25/2023 9:25 AM CDT STMA Blood (Blood, Arterial Line) 11/25/2023 9:22 AM CDT 11/25/2023 9:22 AM CDT Ale Tatum M.D. LAB BLOOD NON ADD-ON Performing Organization Address City/[facility]/ZIP Co de Phone Number [facility] [address] [place] [address] * Sodium, B (11/25/2023 9:22 AM CDT) Sodium, B 141 135 - 145 mmol/L 11/25/2023 9:24 AM CDT [facility]MA Blood (Blood, Arterial Line) 11/25/2023 9:22 AM CDT 11/25/2023 9:22 AM CDT Ale Tatum M.D. LAB BLOOD NON ADD-ON Performing Organization Address City/[facility] Co de Phone Number [facility] [address] [place] [address] * (ABNORMAL) Calcium, Ionized (11/25/2023 9:22 AM CDT) Calcium, Ionized, B 4.40(L) 4.65 - 5.30 mg/dL 11/25/2023 9:25 AM CDT [facility] Blood (Blood, Arterial Line) 11/25/2023 9:22 AM CDT 11/25/2023 9:22 AM CDT Ale Tatum M.D. LAB BLOOD NON ADD-ON Performing Organization Address City/[facility]/ZIP Co de Phone Number [facility] [address] [place] [address], [facility] [address] [place] [address] * (ABNORMAL) Blood Gas with Coox, Arterial [...] Ale Tatum M.D. LAB BLOOD NON ADD-ON [facility] [address] [place] [address], [facility] [address] [place] [address] * Patient Status (11/25/2023 7:08 AM CDT) O2 Flow 3.0 L/min 11/25/2023 7:11 AM CDT STMA Device NC 11/25/2023 7:11 AM CDT STMA Spont. breaths/min 18 11/25/2023 7:11 AM CDT [facility] Blood 11/25/2023 7:08 AM CDT 11/25/2023 7:11 AM CDT Hilda Petrona Tere MONTERROSO, C.N.P., M.S.N. LA B BLOOD NON ADD-ON [facility] [address] [place] [address], [facility] STMA [facility] [address] [place] [address] * (ABNORMAL) Blood Gas with Coox, Venous [...] Hilda Carranza APRN, C.N.P., M.S.NTarik HERNANDEZ BLOOD NON ADD-ON [facility] [address] STMA [facility] 200 [place] [address] * (ABNORMAL) CK (Creatine Kinase) (11/25/2023 6:15 AM CDT) Creatine Kinase (CK), S 3100(H) 39 - 308 U/L 11/25/2023 9:15 AM CDT DTL Blood (Blood, Venous) 11/25/2023 6:15 AM CDT 11/25/2023 7:01 AM CDT Hilda Carranza APRN, C.N.P., M.S.NTarik HERNANDEZ BLOOD ADD-ON [facility] [address] [facility] [facility] 200 [place] [address] * (ABNORMAL) Phosphorus Inorganic (11/25/2023 6:15 AM CDT) Phosphorus (Inorganic), S 2.2(L) 2.5 - 4.5 mg/dL 11/25/2023 9:15 AM CDT DTL Blood (Blood, Venous) 11/25/2023 6:15 AM CDT 11/25/2023 7:01 AM CDT Hilda Carranza APRN, C.N.P., M.S.NTarik HERNANDEZ BLOOD ADD-ON [facility] [address] [place] [address], [facility] [address] [place] [address] * Magnesium (11/25/2023 6:15 AM CDT) Magnesium, S 2.2 1.7 - 2.3 mg/dL 11/25/2023 9:15 AM CDT DTL Blood (Blood, Venous) 11/25/2023 6:15 AM CDT 11/25/2023 7:01 AM CDT Hilda Carranza APRN C.N.P., M.S.N. JOHANNA Cota BLOOD ADD-ON [facility] [address] [place] [address], [facility] [address] [place] [address] * (ABNORMAL) Basic Metabolic Panel (11/25/2023 6:15 [...] CDT 11/25/2023 7:01 AM CDT Tracy Yancey APRNNKerrie, M.S.NTarik HERNANDEZ BLOOD ADD-ON [facility] [address] [place] [address], [facility] [address] [place] [address] * (ABNORMAL) CBC without Differential (11/25/2023 6:15 [...] 6:15 AM CDT 11/25/2023 6:42 AM CDT Tracy Yancey APRNNLeon., M.S.NTarik HERNANDEZ BLOOD ADD-ON [facility] [address] [place] [address], [facility] [address] [place] [address] * DX Chest Portable 1 View (11/25/2023 [...] CDT) Ventricular Rate ECG/Min 74 BPM MUSE LA Interval 142 ms MUSE QRSD Interval 90 ms MUSE QT Interval 414 ms MUSE QTC Interval 459 ms MUSE P [place] 39 degrees MUSE R [place] 12 degrees MUSE T Wave [place] 30 degrees MUSE 11/25/2023 5:33 AM CDT [...] Carranza APRN, C.N.P., M.S.N. EC G ORDERABLES Performing Organization Address City/[facility]/ZIP Co de Phone Number MUSE NA * (ABNORMAL) CBC without Differential [...] 2:48 PM CDT 11/24/2023 2:51 PM CDT Tracy Yancey APRNN.PTarik, M.S.N. LA B BLOOD ADD-ON Performing Organization Address [facility] Co de Phone Number [facility] [address] [place] [address], [facility] STMA [facility] [address] [place] [address] * (ABNORMAL) Microscopic Manual (11/24/2023 9:58 AM [...] Hansen APRN, C.N.P., D.N.P. LAB URINE ORDERABLES [facility] [address] [facility] 200 [place] [address] * (ABNORMAL) Dipstick, Urine (11/24/2023 9:58 AM [...] AM CDT 11/24/2023 10:39 AM CDT Janina Hnasen APRN, C.N.P., D.N.P. LAB URINE ORDERABLES [facility] [address] [place] [address] * pH, Urine (11/24/2023 9:58 AM CDT) pH, U 5.1 4.5 - 8.0 11/24/2023 11: 48 AM CDT DTL Urine 11/24/2023 9:58 AM CDT 11/24/2023 10:39 AM CDT Tracy Montes APRNN.P., D.N.P. LAB URINE ORDERABLES Performing Organization Address City/[facility]/ZIP Co de Phone Number [facility] [address] [place] [address] * Osmolality, Urine (11/24/2023 9:58 AM CDT) Osmolality, U 901 150 - 1150 mOsm/kg 11/24/2023 11:48 AM CDT DTL Urine 11/24/2023 9:58 AM CDT 11/24/2023 10:39 AM CDT Tracy Montes APRNN.P., D.N.P. LAB URINE ORDERABLES Performing Organization Address City/[facility]/ZIP Co de Phone Number [facility] [address] [place] [address] * (ABNORMAL) Urinalysis, with Microscopic: Urine, Catheter [...] D.N.P. LAB URINE ORDERABLES Performing Organization Address City/[facility]/ZIP Co de Phone Number [facility] [address] [place], [place] [id number] [place] [address] DTL [facility] [address] [place] [address] * Patient Status (11/24/2023 9:26 AM CDT) FIO2 0.21 0.21=AIR 11/24/2023 9:33 AM CDT [facility] Spont. breaths/min 22 11/24/2023 9:33 AM CDT [facility] Blood 11/24/2023 9:26 AM CDT 11/24/2023 9:33 AM CDT Hilda Carranza APRN, C.N.P., M.S.N. LA B BLOOD NON ADD-ON [facility] [address] [place] [address], [facility] STMA [facility] [address] [place] [address] * (ABNORMAL) Blood Gas with Coox, Venous [...] C.N.P., M.S.N. LA B BLOOD NON ADD-ON [facility] [address] [place] [address], [facility] [address] [place] [address] * Lactate (11/24/2023 9:26 AM CDT) Lactate, P 1.7 0.5 - 2.2 mmol/L 11/24/2023 9:46 AM CDT STMA Blood (Blood, Venous) 11/24/2023 9:26 AM CDT 11/24/2023 9:33 AM CDT Tracy Montes APRNNTarikPTarik, DemetriusNLeon. LAB BLOOD NON ADD-ON Performing Organization Address City/[facility]/ZIP Co de Phone Number [facility] [address] [place] [address], [facility] STMA [facility] [address] [place] [address] * (ABNORMAL) CK (Creatine Kinase) (11/24/2023 9:26 AM CDT) Pathologist [facility] Creatine Kinase (CK), S 2304(H) 39 - 308 U/L 11/24/2023 10:53 AM CDT DTL Blood (Blood, Venous) 11/24/2023 9:26 AM CDT 11/24/2023 10:04 AM CDT Sheldon Choi P.A.-C. LAB BLOOD A DD-ON Performing Organization Address City/[facility] Co de Phone Number [facility] [address] [place] [address], [facility] [address] [place] [address] * (ABNORMAL) CBC without Differential (11/24/2023 9:26 AM CDT) Pathologist [facility] Hemoglobin 8.8(L) 13.2 - 16.6 g/dL 11/24/2023 [...] Sheldon Choi P.A.-C. LAB BLOOD A DD-ON [facility] [address] [place] [address], [facility] [address] [place] [address] * (ABNORMAL) Basic Metabolic Panel (11/24/2023 9:26 AM CDT) [facility] Potassium, S 4.1 3.6 - 5.2 [...] Organization Address City/[facility] Co de Phone Number [facility] [address] [place] [address], [facility] DTL [facility] [address] [place] [address] * ECG 12 Lead (11/24/2023 9:13 AM CDT) Ventricular Rate ECG/Min 132 BPM MUSE LA Interval 130 ms MUSE QRSD Interval 88 ms MUSE QT Interval 330 ms MUSE QTC Interval 488 ms MUSE P Luxora 3 degrees MUSE R [place] 24 degrees MUSE T Wave [place] 32 degrees MUSE 11/24/2023 9:13 AM CDT [...] Organization Address City/[facility] Co de Phone Number MUSE NA [...] a small subdural effusion. Sheldon Choi P.A.-C. [facility] CT PROC EDURES * Drug Screen Urine [...] APRN, C.N.P., M.S.N. LA B URINE ORDERABLES [facility] [address] [place] [address], [facility] DTL [facility] [address] [place] [address] * DX Chest Portable 1 View (11/24/2023 [...] not well appreciated radiographically. Sheldon Choi P.A.-C. [facility] DIAGNOS TIC IMAGING PROCEDURES * DX Femur [...] the distal left femur. Mickey Benton M.D. [facility] DIAGNOSTIC IMAGI NG PROCEDURES * Lactate (11/23/2023 10:52 PM CDT) Lactate, P 2.1 0.5 - 2.2 mmol/L 11/23/2023 11:11 PM CDT STMA Blood (Blood, Venous) 11/23/2023 10:52 PM CDT 11/23/2023 10:57 PM CDT Sheldon Choi P.A.-C. LAB BLOOD N ON ADD-ON Performing Organization Address [facility]/ZIP Co de Phone Number [facility] [address] [place] [address], [facility] STMA [facility] [address] [place] [address] * (ABNORMAL) CBC without Differential (11/23/2023 10:52 PM CDT) [facility] Hemoglobin 9.5(L) 13.2 - 16.6 g/dL [...] Organization Address City/[facility]/ZIP Co de Phone Number [facility] [address] [place], [place] [id number] [place] [address] [address] [place] [address] * (ABNORMAL) Troponin T, 6h, 5th Gen (11/23/2023 10:52 PM CDT) Troponin T, 6 hr, 5th gen 29(H) <=15 ng/L 11/23/2023 11:16 PM CDT STMA 6H Delta 7 ng/L 11/23/2023 11:16 PM CDT STMA 6H Delta Interp Not Changing 11/23/2023 11:16 PM CDT STMA Blood 11/23/2023 10:5 2 PM CDT 11/23/2023 10:57 PM CDT Bereket Snider M.D. LAB BLOOD TROPONIN [facility] [address] [place], [place] [address] [place] [address] [address] [place] [address] * DX Femur Left 2 Views (11/23/2023 [...] from earliertoday. Rosado catheter. Mickey Benton M.D. [facility] DIAGNOSTIC IMAGI NG PROCEDURES * DX Pelvis [...] from earliertoday. Rosado catheter. Mickey Benton M.D. [facility]NO[facility] IMAGI NG PROCEDURES * ED fracture [...] PM CDT 11/23/2023 7:03 PM CDT Sheldon KimC. LAB BLOOD T ROPONIN Performing Organization Address City/[facility]/ZIP Co de Phone Number [facility] [address] [place] [address] * Patient Status (11/23/2023 4:52 PM CDT) Pathologist [facility] FIO2 0.21 0.21=AIR 11/23/2023 5:01 PM CDT STMA Spont. breaths/min 18 11/23/2023 5:01 PM CDT STMA Blood 11/23/2023 4:52 PM CDT 11/23/2023 5:01 PM CDT Sheldon Choi P.A.-C. LAB BLOOD N ON ADD-ON Performing Organization Address [facility] [place] [address] * (ABNORMAL) Blood Gas with Coox, Venous [...] Choi P.A.-C. LAB BLOOD N ON ADD-ON [facility] [address] [place] [address] * (ABNORMAL) pH (11/23/2023 4:51 PM CDT) pH 7.30(L) 7.35 - 7.45 pH 11/23/2023 5:06 PM CDT STMA Blood 11/23/2023 4:51 PM CDT 11/23/2023 5:01 PM CDT Sheldon Choi P.A.-C. LAB HISTORI PURNIMA ORDERS Performing Organization Address City/[facility]/ZIP Co de Phone Number [facility] [address] [place] [address] * Hemoglobin A1c (11/23/2023 4:51 PM CDT) Hemoglobin A1c, B 5.4 4.0 - 5.6 % 11/23/2023 5:42 PM CDT DTL Blood (Blood, Venous) 11/23/2023 4:51 PM CDT 11/23/2023 5:19 PM CDT Sheldon Choi P.A.-C. LAB BLOOD A DD-ON [facility] [address] [place] [address], [facility] [address] [place] [address] * (ABNORMAL) CK (Creatine Kinase) (11/23/2023 4:51 PM CDT) [facility] Creatine Kinase (CK), S 728(H) 39 - 308 U/L 11/23/2023 6:04 PM CDT DT Blood (Blood, Venous) 11/23/2023 4:51 PM CDT 11/23/2023 5:35 PM CDT Sheldon Choi P.A.-C. LAB BLOOD A DD-ON Performing Organization Address City/[facility]/ZIP Co de Phone Number [facility] [address] [place], [place] [phone] [place] [address] [address] [place] [address] * (ABNORMAL) Troponin T, Baseline with 2 Hour/6 Hour Reflex Biomarker Panel (11/23/2023 4:51 PM CDT) [facility] Troponin T, Baseline, 5th gen 22(H) <=15 ng/L 11/23/2023 5:23 PM CDT [facility] Blood (Blood, Venous) 11/23/2023 4:51 PM CDT 11/23/2023 5:01 PM CDT Sheldon Choi P.A.-C. LAB BLOOD T ROPONIN [facility] [address] [place], [place] [id number] [place], [place] [address] [facility] [address] [place] [address] * (ABNORMAL) Prothrombin Time (PT) (11/23/2023 4:51 PM CDT) Prothrombin Time, P 12.6(H) 9.4 - 12.5 sec 11/23/2023 5:24 PM CDT [facility] INR 1.1 0.9 - 1.1 11/23/2023 5:24 PM CDT [facility] Comment: ----ADDITIONAL INFORMATION---- Standard intensity warfarin therapeutic range: 2.0 to 3.0 ?? High intensity warfarin therapeutic range: 2.5 to 3.5 Blood (Blood, Venous) 11/23/2023 4:51 PM CDT 11/23/2023 5:01 PM CDT Sheldon Choi P.A.-C. LAB BLOOD A DD-ON Performing Organization Address City/[facility]/ZIP Co de Phone Number [facility] [address] [place] [address] * Phosphorus Inorganic (11/23/2023 4:51 PM CDT) [facility] Phosphorus (Inorganic), S 3.1 2.5 - 4.5 mg/dL 11/23/2023 6:04 PM CDT DT Blood (Blood, Venous) 11/23/2023 4:51 PM CDT 11/23/2023 5:35 PM CDT Sheldon Choi P.A.-C. LAB BLOOD A DD-ON Performing Organization Address City/[facility]/ZIP Co de Phone Number [facility] [address] [place] [address], [facility] [address] [place] [address] * Magnesium (11/23/2023 4:51 PM CDT) [facility] Magnesium, S 2.0 1.7 - 2.3 mg/dL 11/23/2023 6:04 PM CDT DT Blood (Blood, Venous) 11/23/2023 4:51 PM CDT 11/23/2023 5:35 PM CDT Sheldon Choi P.A.-C. LAB BLOOD A DD-ON Performing Organization Address City/[facility] Co de Phone Number [facility] [address] DTL [facility] [address] [place] [address] * (ABNORMAL) Lactate (11/23/2023 4:51 PM CDT) [facility] Lactate, P 2.6(H) 0.5 - 2.2 mmol/L 11/23/2023 5:19 PM CDT STMA Blood (Blood, Venous) 11/23/2023 4:51 PM CDT 11/23/2023 5:01 PM CDT Sheldon Choi P.A.-C. LAB BLOOD N ON ADD-ON Performing Organization Address [facility] Co de Phone Number [facility] [address] [place] [address], [facility] STMA [facility] [address] [place] [address] * (ABNORMAL) CBC without Differential (11/23/2023 4:51 PM CDT) [facility] Hemoglobin 11.3(L) 13.2 - 16.6 g/dL [...] LAB BLOOD A DD-ON Performing Organization Address [facility] Co de Phone Number [facility] [address] [place] [address], [facility] [address] [place] [address] * (ABNORMAL) Calcium, Ionized (11/23/2023 4:51 PM CDT) Pathologist [facility] Calcium, Ionized, B 4.59(L) 4.65 - 5.30 mg/dL 11/23/2023 5:06 PM CDT STMA Blood (Blood, Venous) 11/23/2023 4:51 PM CDT 11/23/2023 5:01 PM CDT Sheldon Choi P.A.-C. LAB BLOOD N ON ADD-ON Performing Organization Address [facility] Co de Phone Number [facility] [address] [place] [address], [facility] [address] [place] [address] * (ABNORMAL) Basic Metabolic Panel (11/23/2023 4:51 [...] Sheldon Choi P.A.-C. LAB BLOOD A DD-ON [place] [address] [place] [address], [facility] [place] [address] * Thromboelastograph, Kaolin, Blood (11/23/2023 4:49 PM [...] Choi P.A.-C. LAB BLOOD N ON ADD-ON [facility] [address] [place] [address], [facility] [address] [place] [address] * Critical Care (11/23/2023 4:42 PM CDT) [...] deterioration of the following conditions: shock trauma [employer] failure or compromise hemorrhage Critical care was [...] CDT) Ventricular Rate ECG/Min 95 BPM MUSE LA Interval 130 ms MUSE QRSD Interval 82 ms MUSE QT Interval 384 ms MUSE QTC Interval 482 ms MUSE P Luxora 50 degrees MUSE R [place] 23 degrees MUSE T Wave [place] 45 degrees MUSE 11/23/2023 4:41 PM CDT [...] CDT EXAM: ??DX PELVIS 1-2 VIEWS Christopher [place] [facility] PROCEDURES * (ABNORMAL) Basic Metabolic Panel (11/23/2023 2:52 PM CDT) Pathologist [facility] Potassium, P 4.0 3.6 - 5.2 mmol/L [...] LAB BLOOD ADD- ON Performing Organization Address [facility] Co de Phone Number [facility] [address] [place] [address], [facility] [address] [place] [address] * (ABNORMAL) Troponin T, 2 Hour with [...] M.D. LAB BLOOD TROPONIN Performing Organization Address [facility] Co de Phone Number [facility] [address] [place] [address], [facility] [address] [place] [address] * ECG 12 Lead (11/23/2023 2:45 PM CDT) Ventricular Rate ECG/Min 87 BPM MUSE LA Interval 138 ms MUSE QRSD Interval 82 ms MUSE QT Interval 402 ms MUSE QTC Interval 483 ms MUSE P Lux[place] 46 degrees MUSE R [place] 19 degrees MUSE T Wave [place] 37 degrees MUSE 11/23/2023 2:45 PM CDT [...] Moderate tricompartmentalleft knee osteoarthritis. Bereket Snider M.D. [facility] DIAGNOSTIC IMAGI NG PROCEDURES * CT Lumbar [...] Snider M.D. Janna CT PROCEDURES * CT Abdomen Pelvis with [...] Small incidental pulmonary nodules. Bereket Snider M.D. Janna CT PROCEDURES * CT Chest with IV [...] nodules. Bereket [place] CT PROCEDURES * CT Cervical Spine without IV Contrast (11/23/2023 1:44 PM CDT) Anatomical Region Laterality Modality Cervical Spine, Neuroradiolo gy RST LOS, Neuroradiology ARZ LOS, [facility]ad[facility] N[facility]A Computed Tomography, Compute d [...] LOS , Neuroradiology ARZ LOS, Neuroradiology FLA [facility] N/A Computed Tomography, Compute d [...] Findings discussed with Bereket Snider M.D. (pager #[phone]) on 11/23/2023 at 1:24 PM. Narrative 11/23/2023 [...] Findings discussed with Bereket Snider M.D. (pager #[phone]) on 4at 1:24 PM. Bereket Snider M.D. IMG CT PROCEDURES * Lactate for Sepsis with Reflex, POCT (11/23/2023 1:06 PM CDT) Lactate, POCT 1.67 0.50 - 2.20 mmol/L 11/23/2023 1:19 PM CDT PCLX Blood (Blood, Venous) 11/23/2023 1:06 PM CDT 11/23/2023 1:06 PM CDT Bereket Snider M.D. LAB POCT ORDERABLES - DEVICE POC [facility] [address] [place] [address], [facility] PCLX [facility] POC [address] [place] [address] * (ABNORMAL) Venous Blood Gas and Electrolytes CG8+, POCT (11/23/2023 1:06 PM CDT) [facility] Sample Site, POCT Venstick 11/23/2023 1:19 [...] - DEVICE Performing Organization Address [facility] Co de Phone Number POC [facility] [address] [place], [place] [phone] [place] [address] PCSM [facility] POC [address] [place] [address] * (ABNORMAL) Troponin T, Baseline with 2 Hour/6 Hour Reflex Biomarker Panel (11/23/2023 1:06 PM CDT) Pathologist [facility] Troponin T, Baseline, 5th gen 17(H) <=15 ng/L 11/23/2023 1:36 PM CDT STMA Blood (Blood, Venous) 11/23/2023 1:06 PM CDT 11/23/2023 1:18 PM CDT Bereket Snider M.D. LAB BLOOD TROPONIN Performing Organization Address [facility] Co de Phone Number [facility] [address] [place] [address], [facility] STMA [facility] [address] [place] [address] * Type and Screen (with Reflex Antibody [...] BLOOD BANK TEST ORDERABLES Performing Organization Address [facility] Co de Phone Number [facility] [address] [place] [address], [facility] [address] [place] [address] * APTT (Activated Partial Thromboplastin Time) (11/23/2023 1:06 PM CDT) Activated Partial Thrombopl Time, P 30 25 - 37 sec 11/23/2023 2:03 PM CDT [facility] Blood (Blood, Venous) 11/23/2023 1:06 PM CDT 11/23/2023 1:18 PM CDT Bereket Snider M.D. LAB BLOOD ADD-ON Performing Organization Address [facility] Co de Phone Number [facility] [address] [place] [address] * (ABNORMAL) Prothrombin Time (PT) (11/23/2023 1:06 [...] CDT Bereket Snider M.D. LAB BLOOD ADD-ON [facility] [address] [place] [address], [facility] STMA [facility] [address] [place] [address] * (ABNORMAL) CBC with Differential, Blood (11/23/2023 1:06 PM CDT) Pathologist [facility] Hemoglobin 8.3(L) 13.2 - 16.6 g/dL 11/23/2023 [...] CDT Bereket Snider M.D. LAB BLOOD ADD-ON [facility] [address] [place] [address], [facility] STMA [facility] [address] [place] [address] [facility] [address] [place] [address] * (ABNORMAL) S-TSH (Thyroid-Stimulating Hormone - Sensitive) (11/23/2023 1:05 PM CDT) TSH, Sensitive 6.1(H) 0.3 - 4.2 mIU/L 11/23/2023 2:14 PM CDT DTL Blood (Blood, Venous) 11/23/2023 1:05 PM CDT 11/23/2023 1:40 PM CDT Bereket Snider M.D. LAB BLOOD ADD-ON Performing Organization Address City/[facility]/ZIP Co de Phone Number [facility] [address] [place] [address], [facility] [address] [place] [address] * Lipase (11/23/2023 1:05 PM CDT) Lipase, S 19 13 - 60 U/L 11/23/2023 2: 14 PM CDT DTL Blood (Blood, Venous) 11/23/2023 1:05 PM CDT 11/23/2023 1:40 PM CDT Bereket Snider M.D. LAB BLOOD ADD-ON [facility] [address] [place], [place] [id number] [place] [address] [address] [place] [address] * (ABNORMAL) Hepatic Function Panel (11/23/2023 1:05 [...] Organization Address City/[facility]/ZIP Co de Phone Number [id number] [place] [address] * Ethanol Level, Serum (11/23/2023 1:05 PM CDT) Ethanol, S <10 <10 mg/dL 11/23/2023 2:1 4 PM CDT DTL Blood (Blood, Venous) 11/23/2023 1:05 PM CDT 11/23/2023 1:40 PM CDT Bereket Snider M.D. LAB BLOOD NON ADD-ON [facility] [address] [place] [address], [facility] [place] [place] [address] * (ABNORMAL) Basic Metabolic Panel (11/23/2023 1:05 [...] CDT Bereket Snider M.D. LAB BLOOD ADD-ON [facility] [address] [place] [address], [facility] [address] [place] [address] * DX Pelvis 1-2 Views (11/23/2023 1:01 [...] Comminuted left acetabular fracture. Bereket Snider M.D. [facility] IMAGI NG PROCEDURES * DX Chest [...] pleural effusion. Heart sizenormal. Bereket Snider M.D. [facility]AGNO[facility]IC IMAGI NG PROCEDURES * (ABNORMAL) Thromboelastograph, [...] LAB BLOOD NON ADD-ON Performing Organization Address City/State/[facility] Co de Phone Number [facility] [address] [place] [address], [facility] STMA [facility] [address] [place] [address] documented in this encounter Visit Diagnoses Diagnosis [...] Behavior Disturbance (HCC) [G30.9, F02.80] Delirium [R41.0] Decline Functional Status [R53.81] Concern Patient Cognition Function [Z03.89] Retention Urinary Subarachnoid Hemorrhage Without Loss Of Conscious Initial (HCC) Effusion Pleural History Of Falling Subarachnoid Hemorrhage Without Loss Of Conscious Initial (HCC) Contusion Scalp Initial Fracture Rib Single Closed Initial Left Anemia Posthemorrhagic Acute (Blood Loss Anemia) Fracture Acetabulum Other Closed Initial Left (HCC) Fracture Pelvis Multiple Closed With Stable Disruption Pelvis Ring Initial (HCC) Encephalopathy Metabolic Decline Cognitive Delirium Acute Overweight Body Mass Index 25-29.9 Adult Atelectasis Effusion Pleural Thrombosis Deep Vein Lower Extremity Left (HCC) Dysphagia Retention Urinary Injury Blood Vessel Abdomen Lower Back Pelvis Initial documented in this encounter Admitting Diagnoses Diagnosis Fracture Ilium Closed Initial Left (HCC) documented in this encounter Administered Medications Inactive Administered Medications - up to 3 most recent administrations Medication Order MAR Action Action Date Dose Rate Site acetaminophen tablet 650 mg (TYLENOL) 650 mg, oral, Every 6 hours, First dose on Tue11/23/23 at 1700 Given 12/21/2023 11:05 AM CDT 650 mg Given 12/16/2023 1:01 PM CDT 650 mg Given 12/16/2023 6:19 AM CDT 650 mg vysyqikvcwrjm-seszccyl-fpwrvmpyb in Lipoderm 2%-0.5%-2% cream 1 g 1 g, topical, 3 times daily, First dose (after last modification) on Tue11/24/23 at 0915 Given 12/21/2023 10:13 AM CDT 1 g Given 12/18/2023 8:07 AM CDT 1 g Given 12/16/2023 8:58 AM CDT 1 g bisacodyL suppository 10 mg (DULCOLAX) 10 mg, rectal, Daily, First dose on Tue11/24/23 at 0915 Given 11/29/2023 8:55 AM CDT 10 mg Given 11/27/2023 8:11 AM CDT 10 mg Given 11/26/2023 8:06 AM CDT 10 mg bisacodyL suppository 10 mg (Dulcolax) 10 mg, rectal, Daily PRN, constipation, Starting on Tue12/24/23 at 1500 calcium gluc in NaCl, iso osm IVPB [...] Tue11/25/23 at 2215, For 1 dose New Bag 11/25/2023 10:38 PM CDT 2 g 400 [...] CDT 30 mg R ight Outer Thigh enoxaparin injection 30 mg (LOVENOX) 30 mg, subcutaneous, 2 times daily, First dose on Tue12/01/23 at 2100 Given 12/26/2023 8:12 AM CDT 30 mg Left Upper Arm (Back ) Given 12/25/2023 8:37 PM CDT 30 mg Ri ght Upper Arm (Back) Given 12/25/2023 8:57 AM CDT 30 mg Ri ght Upper Arm (Back) fentaNYL injection (SUBLIMAZE) Code/trauma/sedation medication, Starting on [...] Given 11/24/2023 1:30 AM CDT 25 mcg finasteride tablet 5 mg (PROSCAR) 5 mg, oral, Daily, First dose on Tue12/02/23 at 0900, See tube feeding guidelines for tube feeding administration instructions. Given 12/27/2023 9:48 AM CDT 5 mg Given 12/26/2023 8:12 AM CDT 5 mg Given 12/25/2023 8:57 AM CDT 5 mg furosemide injection 20 mg (LASIX) 20 [...] injection - ADS Override Pull Starting on Annika 11/24/23 at 0150, For 1 dose, Created by cabinet override haloperidol lactate injection 2 mg (HALDOL) 2 mg, intravenous, Once, On 11/26/23 at 1330, For 1 dose Given 11/26/2023 1:12 PM CDT 2 mg haloperidol lactate injection 5 mg (HALDOL) 5 mg, intravenous, Once, On Annika 11/24/23 at 0215, For 1 dose Given 11/24/2023 1:55 AM CDT 5 mg haloperidol lactate injection 5 mg (HALDOL) 5 mg, intravenous, Once, On Annika 11/24/23 at 0345, For 1 dose Given 11/24/2023 3:22 AM CDT 5 mg HYDROmorphone liquid 0.5 mg (Dilaudid) 0.5 mg, sublingual, Every 4 hours PRN, moderate pain or score 4-6 of 10, Starting on Annika 11/24/23 at 1527 Given 11/30/2023 7:00 PM CDT 0.5 mg Given 11/29/2023 6:34 PM CDT 0.5 mg Given 11/26/2023 2:46 AM CDT 0.5 mg HYDROmorphone liquid 1 mg (Dilaudid) 1 mg, sublingual, Every 4 hours PRN, severe pain or score 7-10 of 10, Starting on Annika 11/24/23 at 1527 Given 11/26/2023 12:39 PM CDT [...] intravenous, Once in imaging, contrast, Starting on [facility] 11/26/23 at 0554, For 1 dose, Imaging Protocol Orders, Dose per Radiant Medication Guidelines Given 11/26/2023 6:09 AM CDT 140 mL ipratropium-albuteroL 0.5-2.5 mg/3 mL nebulizer solution 3 mL (DUONEB) 3 mL, nebulization, 4 times daily PRN, wheezing, shortness of breath, Starting on Tue11/23/23 at 1655 Lactated Ringer's bolus 1,000 mL 1,000 mL, intravenous, at 2,000 mL/hr, Administer over 30 Minutes, Once, On Tue11/23/23 at 1700, For 1 dose New Bag 11/23/2023 5:00 PM CDT 1,000 mL 2000 mL/hr Lactated Ringer's bolus 1,000 mL 1,000 mL, intravenous, at 500 mL/hr, Administer over 2 Hours, Once, On Tue11/24/23 at 1215, For 1 dose, Monitor response [...] Given 11/23/2023 8:00 PM CDT 20 mL lidocaine 5 % 1 patch (LIDODERM) 1 patch, transdermal, Administer over 12 Hours, Daily, First dose on Tue11/24/23 at 0900, May apply up to 3 patches per day. Medication Applied 12/21/2023 10:11 AM CDT 1 patch Other Medication Applied 12/16/2023 8:58 AM CDT 1 patch Left Leg Medication Applied 12/12/2023 9:44 AM CDT 1 patch Flank magnesium hydroxide suspension 30 mL (Milk of Magnesia) 30 mL, oral, Daily at bedtime, First dose on Tue12/01/23 at 2100 Given 12/05/2023 10:06 PM CDT 30 mL Given 12/01/2023 9:55 PM CDT 30 mL magnesium sulfate in water IVPB 2 g 2 g, intravenous, at 25 mL/hr, Administer over 120 Minutes, Once, On Tue11/24/23 at 1500, For 1 dose New Bag [...] First dose on Tue12/01/23 at 2100 Given 12/03/2023 8:53 PM CDT 3 mg Given 12/03/2023 12:07 AM CDT 3 mg Given 12/01/2023 9:53 PM CDT 3 mg melatonin tablet 5 mg 5 mg, oral, Bedtime PRN, sleep, Starting on 12/10/23 at 1331 Given 12/17/2023 9:34 PM CDT 5 mg Given 12/14/2023 9:39 PM CDT 5 mg Given 12/13/2023 10:05 PM CDT 5 mg melatonin tablet 6 mg 6 mg, oral, Daily at bedtime, First dose (after last modification) on 12/04/23 at 2100 Given 12/06/2023 7:10 PM CDT 6 mg Given 12/05/2023 10:08 PM CDT 6 mg Given 12/04/2023 9:16 PM CDT 6 mg metoprolol (LOPRESSOR) 5 mg/5 mL injection - ADS Override Pull Starting on Annika 11/24/23 at 1410, For 1 dose, Created by rickyt override metoprolol injection 2.5 mg (LOPRESSOR) 2.5 [...] 11/27/2023 10:03 AM CDT 12.5 mg metoprolol tablet 12.5 mg (LOPRESSOR) 12.5 mg, oral, 2 times daily, First dose (after last reorder) on Tue11/28/23 at 0900, Hold if SBP < 90, HR < 60 Given 12/27/2023 9:48 AM CDT 12.5 mg Given 12/26/2023 10:29 PM CDT 12.5 mg Given 12/26/2023 8:12 AM CDT 12.5 mg metoprolol tartrate suppository [...] Bag 11/23/2023 12:55 PM CDT 1,000 mL naloxone injection 0.2 mg (NARCAN) 0.2 mg, intravenous, As needed, respiratory depression, Starting on Tue11/23/23 at 1633, For RASS Score -4 or less, respiratory rate of less than 8 breaths/min. Notify provider/service and rapid response team (if available at institution). norepinephrine 16 mcg/mL in D5W 250 mL [...] Given 11/25/2023 10:14 PM CDT 200 mcg polyethylene glycol powder packet 17 g (MIRALAX) 17 g, oral, Daily, First dose on Tue11/25/23 at 1000, Dissolve in 240 mLs (8 ounces) of water prior to giving. Avoid mixing with starch-based thickened liquids. Given 12/25/2023 8:58 AM CDT 17 g Given 12/24/2023 8:58 AM CDT 17 g Given 12/21/2023 10:14 AM CDT 17 g potassium chloride IVPB 10 mEq 10 mEq, [...] 3:30 PM CDT 10 mEq 50 mL/hr QUEtiapine tablet 12.5 mg (SEROqueL) 12.5 mg, oral, Bedtime PRN, delirium, Starting on 12/11/23 at 1856 Given 12/23/2023 2:24 AM CDT 12.5 mg Given 12/17/2023 9:33 PM CDT 12.5 mg Given 12/14/2023 9:39 PM CDT 12.5 mg ramelteon tablet 8 mg (ROZEREM) 8 mg, oral, Daily at bedtime, First dose on Tue11/24/23 at 2100, Restriction Criteria (Pharmacy will review and approve if criteria met): Does not meet criteria (Sleep center provider recommended), Authorizing provider? Geriatric med Given 11/30/2023 8:53 PM CDT 8 mg Given 11/29/2023 9:46 PM CDT 8 mg Given 11/28/2023 10:39 PM CDT 8 mg ramelteon tablet 8 mg (ROZEREM) 8 mg, oral, Daily at bedtime, First dose on Tue12/07/23 at 2100 Given 12/26/2023 10:29 PM CDT 8 mg Given 12/25/2023 8:34 PM CDT 8 mg Given 12/17/2023 9:33 PM CDT 8 mg sennosides tablet 17.2 mg (SENOKOT) 17.2 mg, oral, 2 times daily, First dose on Tue11/25/23 at 2100 Given 12/25/2023 8:35 PM CDT 17.2 mg Given 12/21/2023 10:13 AM CDT 17.2 mg Given 12/18/2023 8:07 AM CDT 17.2 mg sodium chloride (PF) 0.9 % injection 1-100 mL 1-100 mL, intravenous, Once, On Tue11/23/23 at 1311, For 1 dose, Imaging Protocol Orders, Dose per Radiant Medication Guidelines Given 11/23/2023 1:11 PM CDT 50 mL sodium chloride (PF) 0.9 % injection 1-100 mL 1-100 mL, intravenous, Once, On [facility] 11/26/23 at 0615, For 1 dose, Imaging Protocol [...] mL/hr, Administer over 4.4 Hours, Once, On [place] 11/27/23 at 0745, For 1 dose, Administer at 6.8 mmoL phosphate/hr. Max rate of 15 mmoL phosphate/hr. New Bag 11/27/2023 8:19 AM CDT 30 mmol 59.1 mL/hr suvorexant tablet 10 mg 10 mg, oral, Daily at bedtime, First dose (after last modification) on [place] 11/27/23 at 2100 Given 11/30/2023 8:53 PM CDT 10 mg Given 11/29/2023 9:46 PM CDT 10 mg Given 11/28/2023 10:44 PM CDT 10 mg suvorexant tablet 5 mg (BELSOMRA) 5 mg, oral, Daily at bedtime, First dose on [facility] 11/24/23 at 2100 Given 11/26/2023 9:24 PM CDT 5 mg Given 11/24/2023 9:23 PM CDT 5 mg tamsulosin 24 hr capsule 0.4 mg (FLOMAX) 0.4 mg, oral, Daily, First dose (after last reorder) on [place] 11/27/23 at 0900, Swallow whole. Do NOT crush, chew or open capsule. Given 12/03/2023 9:28 AM CDT 0 .4 mg Given 12/02/2023 8:37 AM CDT 0.4 mg Given 12/01/2023 7:49 AM CDT 0.4 mg tamsulosin 24 hr capsule 0.8 mg (FLOMAX) 0.8 mg, oral, Daily, First dose (after last modification) on Tue12/04/23 at 0900, Swallow whole. Do NOT crush, chew or open capsule. Given 12/27/2023 9:48 AM CDT 0 .8 mg Given 12/26/2023 8:12 AM CDT 0.8 mg Given 12/21/2023 10:07 AM CDT 0.8 mg documented in this encounter Active and Recently Administered Medications Times are shown in CDT. Scheduled Medication Order 12/25/2023 12/26/2023 12/27/2023 acetaminophen tablet 650 mg (TYLENOL) 650 mg, oral, Every 6 hours, First dose on Tue11/23/23 at 1700 0400 (Not Given - Provider: Beatriz Humphreys R.N. - Reason: Patient/family refused)1115 (Not Given - Provider: Samantha Mcnamara R.N. - Reason: Patient/family refused)1700 (Not Given - Provider: Samantha Mcnamara R.N. - Reason: Patient/family refused)2210 (Not Given - Provider: Jared Cristobal R.N. - Reason: Patient/family refused) 0540 (Not Given - Provider: Jared Cristobal R.N. - Reason: Patient/family refused)1013 (Not Given - Provider: Erum Calhoun R.N. - Reason: Patient/family refused)1600 (Not Given - Provider: Erum Calhoun R.N. - Reason: Patient/family refused) 0304 (Not Given - Provider: Kong Hines R.N. - Reason: Patient/family refused)0711 (Not Given - Provider: Kong Hines R.N. - Reason: Patient/family refused) aloohaqtuluuy-zsgubgnd-qs docaine in Lipoderm 2%-0.5%-2% cream 1 g 1 g, topical, 3 times daily, First dose (after last modification) on Annika 11/24/23 at 0915 0903 (Not Given - Provider: Samantha Mcnamara R.N. - Reason: Patient/family refused)1313 (Not Given - Provider: Samantha Mcnamara R.N. - Reason: Patient/family refused)203 (Not Given - Provider: Jared Cristobla R.N. - Reason: Patient/family refused) 0812 (Not Given - Provider: Erum Calhoun R.N. - Reason: Patient/family refused)1351 (Not Given - Provider: Erum Calhoun R.N. - Reason: Patient/family refused)2229 (Not Given - Provider: Afshin Bocanegra R.N. - Reason: Patient/family refused) 0950 (Not Given - Provider: Bereket Singleton R.N. - Reason: Patient/family refused) enoxaparin injection 30 mg (LOVENOX) 30 mg, subcutaneous, 2 times daily, First dose on Tue12/01/23 at 2100 0857 (Given - Provider: Samantha Mcnamara R.N.)2037 (Given - Provider: Jared Cristobal R.N.) 0812 (Given - Provider: Erum Calhoun R.N.)2229 (Not Given - Provider: Afshin Bocanegra R.N. - Reason: Patient/family refused) 1000 (Not Given - Provider: Bereket Singleton R.N. - Reason: Patient/family refused) finasteride tablet 5 mg (PROSCAR) 5 mg, oral, Daily, First dose on Tue12/02/23 at 0900, See tube feeding guidelines for tube feeding administration instructions. 0857 (Given - Provider: Samantha Mcnamara R.N.) 0812 (Given - Provider: Erum Calhoun R.N.) 0948 (Given - Provider: Bereket Singleton R.N.) lidocaine 5 % 1 patch (LIDODERM) 1 patch, transdermal, Administer over 12 Hours, Daily, First dose on Tue11/24/23 at 0900, May apply up to 3 patches per day. 0905 (Not Given - Provider: Samantha Mcnamara R.N. - Reason: Patient/family refused) 0814 (Not Given - Provider: Erum Calhoun R.N. - Reason: Patient/family refused) 1000 (Not Given - Provider: Bereket Singleton R.N. - Reason: Patient/family refused) metoprolol tablet 12.5 mg (LOPRESSOR) 12.5 mg, oral, 2 times daily, First dose (after last reorder) on Tue11/28/23 at 0900, Hold if SBP < 90, HR < 60 0858 (Given - Provider: Samantha Mcnamara R.N.)2030 (Given - Provider: Jared Cristobal R.N.) 0812 (Given - Provider: Erum Calhoun R.N.)222 (Given - Provider: Afshin Bocanegra R.N.) 0948 (Given - Provider: Bereket Singleton R.N.) polyethylene glycol powder packet 17 g (MIRALAX) 17 g, oral, Daily, First dose on Tue11/25/23 at 1000, Dissolve in 240 mLs (8 ounces) of water prior to giving. Avoid mixing with starch-based thickened liquids. 0858 (Given - Provider: Samantha Mcnamara R.N.) 0814 (Not Given - Provider: Erum Calhoun R.N. - Reason: Patient/family refused) 1000 (Not Given - Provider: Bereket Singleton R.N. - Reason: Patient/family refused) ramelteon tablet 8 mg (ROZEREM) 8 mg, oral, Daily at bedtime, First dose on Tue12/07/23 at 2100 2034 (Given - Provider: Jared Cristobal R.N.) 222 (Given - Provider: Afshin Bocanegra R.N.) sennosides tablet 17.2 mg (SENOKOT) 17.2 mg, oral, 2 times daily, First dose on Tue11/25/23 at 2100 0905 (Not Given - Provider: Samantha Mcnamara R.N. - Reason: Patient/family refused)2034 (Given - Provider: Jared Cristobal R.N.) 0815 (Not Given - Provider: Erum Calhoun R.N. - Reason: Patient/family refused)223 (Not Given - Provider: Afshin Bocanegra R.N. - Reason: Patient/family refused) 1000 (Not Given - Provider: Bereket Singleton R.N. - Reason: Patient/family refused) tamsulosin 24 hr capsule 0.8 mg (FLOMAX) 0.8 mg, oral, Daily, First dose (after last modification) on 12/04/23 at 0900, Swallow whole. Do NOT crush, chew or open capsule. 904 (Not Given - Provider: Samantha Mcnamara R.N. - Reason: Patient/family refused) 08 (Given - Provider: Erum Calhoun R.N.) 0948 (Given - Provider: Bereket Singleton R.N.) PRN Medication Order 12/25/2023 12/26/2023 12/27/2023 bisacodyL suppository 10 mg (Dulcolax) 10 mg, rectal, Daily PRN, constipation, Starting on 12/24/23 at 1500 ipratropium-albuteroL 0.5-2.5 mg/3 mL nebulizer solution 3 mL (DUONEB) 3 mL, nebulization, 4 times daily PRN, wheezing, shortness of breath, Starting on Tue11/23/23 at 1655 melatonin tablet 5 mg 5 mg, oral, Bedtime PRN, sleep, Starting on 12/10/23 at 1331 naloxone injection 0.2 mg (NARCAN) 0.2 mg, intravenous, As needed, respiratory depression, Starting on Tue11/23/23 at 1633, For RASS Score -4 or less, respiratory rate of less than 8 breaths/min. Notify provider/service and rapid response team (if available at institution). QUEtiapine tablet 12.5 mg (SEROqueL) 12.5 mg, oral, Bedtime PRN, delirium, Starting on 12/11/23 at 1856 documented in this encounter Care Teams Machine Shorthand Teacher Relationship Specialty Start Date End Date Elsewhere, Pcp PCP - General Internal Medicine 11/23/23 documented as of this encounter
--- OUTSIDE RECORDS SUMMARY | 2024-01-23 10:43 | XMS_ITS | Encounter Summary ---
Author Organization [facility] Address [address] [place] [address] Care Team Providers Care Jd Edwards Consultant Name Role Phone Elsewhere, Pcp Primary Care Provider Unavailabl e Encounter Details Date Type Department Care Team (Late st Contact Info) Description 12/01/2023 Orders Only Department of Orthopedic Surgery in [place], [place] [address] [place] [phone] Sera Avila P.A.-C., M.S. [address] [place] [phone] Fracture Acetabulum Closed Initial Left (HCC) (Primary [...] CDT Appointment Department of Laboratory Medicine in [place], [place] [address] [place] [phone] Rody Arriaga APRN, C.N.P., D.N.P. [address] [place] [phone] 02/06/2024 10:30 AM CDT Comprehensive Visit Department of Urology in [place], [place] [address] [place] [phone] Rogelio Díaz M.D. [address] [phone] 02/13/2024 2:45 PM CDT Clinical Communication Virtual Review in [place], [place] [address] [place] [address] 02/17/2024 12:00 PM CDT Appointment Department of Radiology, [facility], in [address] [phone] Sera Avila P.A.-C., M.S. [address] [place] [phone] 02/17/2024 12:30 PM CDT Office Visit Department of Orthopedic Surgery in [address] [phone] Naveed Higuera M.D. [address] [place] [phone] documented as of this encounter Visit Diagnoses Diagnosis Fracture Acetabulum Closed Initial Left (HCC)- Primary documented in this encounter Care Teams Jd Edwards Consultant Relationship Specialty Start Date End Date Elsewhere, Pcp PCP - General Internal Medicine 11/23/23 documented as of this encounter
--- OUTSIDE RECORDS SUMMARY | 2024-01-23 10:43 | XMS_ITS | Encounter Summary ---
Author Organization [facility] Address [address] [place] [phone] Care Team Providers Care Tank Shop Supervisor Name Role Phone Elsewhere, Pcp Primary Care Provider Unavailabl e Reason for Referral * Outpatient (Routine) - Closed Specialty Diagnoses / Procedures Referred By Rahul preciado Referred To Contact Neurological Surgery Diagnoses Hemorrhage Subarachnoid Nontraumatic (HCC) Vanessa Curiel APRN, CNS, D.N.P., M.S.N. [address] [place] [phone] [facility] Referral ID Status Reason Start Date Expiration Date Visits Re quested Visits Authorized [id number] Closed 11/25/2023 05/26/2025 1 1 Encounter Details Date Type Department Care Team (Late st Contact Info) Description 11/25/2023 Clinical Communication [facility] [address] [place] [phone] Vanessa Curiel APRN, CNS, D.N.P., M.S.N. [address] [place] [phone] Social History Tobacco Use Types Packs/Day Years [...] CDT Appointment Department of Laboratory Medicine in [place], [place] [address] [place] [phone] Rody Arriaga APRN, C.N.P., D.N.P. [address] [place] [phone] 02/06/2024 10:30 AM CDT Comprehensive Visit Department of Urology in [place], [place] [address] [place] [phone] Rogelio Díaz M.D. [address] [place] [phone] 02/13/2024 2:45 PM CDT Clinical Communication Virtual Review in [place], [place] [address] [place] [phone] 02/17/2024 12:00 PM CDT Appointment Department of Radiology, [facility] in [place], [place] [address] [place] [phone] Sera Avila P.A.-C., M.S. [address] [place] [phone] 02/17/2024 12:30 PM CDT Office Visit Department of Orthopedic Surgery in [address] [phone] Naveed Higuera M.D. [address] [place] [phone] Scheduled Referrals Name Type Priority Associated Diagnoses Orde r Schedule Neurological Surgery Post Op (clinic) Outpatient Referral Routine Hemorrhage Subarachnoid Nontraumatic (HCC) Expected: 12/25/2023, Expires: 02/24/2025 documented as of this encounter Visit Diagnoses Diagnosis Hemorrhage Subarachnoid Nontraumatic (HCC)- Primary documented in this encounter Care Teams Tank Shop Supervisor Relationship Specialty Start Date End Date Elsewhere, Pcp PCP - General Internal Medicine 11/23/23 documented as of this encounter
--- OUTSIDE RECORDS SUMMARY | 2024-01-23 10:43 | XMS_ITS | Encounter Summary ---
Author Organization [facility] Address [address] [place] [address] Care Team Providers Care Employment Clerk Name Role Phone Elsewhere, Pcp Primary Care Provider Unavailabl e Encounter Details Date Type Department Care Team (Late st Contact Info) Description 12/25/2023 10:15 AM CDT Ancillary Procedure Department of Nursing Social [...] CDT Appointment Department of Laboratory Medicine in [place], [place] [address] [place] [phone] Rody Arriaga, LOC, C.N.P., D.N.P. [address] [place] [phone] 02/06/2024 10:30 AM CDT Comprehensive Visit Department of Urology in [place], [place] [address] [place] [phone] Rogelio Díaz M.D. [address] [place] [phone] 02/13/2024 2:45 PM CDT Clinical Communication Virtual Review in [place], [place] [address] [place] [phone] 02/17/2024 12:00 PM CDT Appointment Department of Radiology, [facility], in [place], [place] [address] [place] [phone] Sera Avila P.A.-C., M.S. [address] [place] [phone] 02/17/2024 12:30 PM CDT Office Visit Department of Orthopedic Surgery in [place], [place] [address] [place] [phone] Naveed Higuera M.D. [address] [place] [phone] documented as of this encounter Procedures Procedure Name Priority Date/Time Associated Diagnosis Comments NURSING IMAGE EXAM Routine 12/25/2023 10 :12 AM CDT documented in this encounter Results * Arm, Right-Nursing Image Exam (12/25/2023 10:12 AM CDT) 12/25/2023 10:1 1 AM CDT Narrative [facility] [...] on filedocumented in this encounter Care Teams Employment Clerk Relationship Specialty Start Date End Date Elsewhere, Pcp PCP - General Internal Medicine 11/23/23 documented as of this encounter
--- OUTSIDE RECORDS SUMMARY | 2024-01-23 10:45 | XMS_ITS | Encounter Summary ---
Author Organization [facility] Address [address] [place] [id number] Care Team Providers Care Air Compressor Mechanic Name Role Phone Elsewhere, Pcp Primary Care [...] Hematoma Procedures EMERGENCY Carol Miller M.D. [address] [place] [address] Referral ID Status Reason Start Date Expiration Date Visits Re quested Visits Authorized [id number] 1 1 Encounter Details Date Type Department Care Team (Late st Contact Info) Description 11/25/2023 7:25 AM CDT - 11/25/2023 12:22 PM CDT Surgery RST ROMB MAIN OR [address] [place] [phone] Naveed Higuera M.D. [address] [place] [phone] OPEN REDUCTION INTERNAL FIXATION ACETABULUM. Social History [...] Weight 86.6 kg (190 lb 14.7 oz) 12:00 AM CDT Height 180.3 cm (5' 11) 11/23/2023 5:00 PM CDT Body Mass Index 28.73 11/29/2023 1:51 PM CDT documented in this encounter Discharge Summaries * Rody Arriaga APRN, C.N.P., D.N.P. - 12/27/2023 9:17 AM CDT DISCHARGE SUMMARY BRIEF OVERVIEW Hospital: [facility] Discharge Provider: Gabriel Ramirez M.D. Primary Team: [facility] Trauma Primary Care Providers: Elsewhere, Pcp (General) [...] RST ROMB OR DISCHARGE DISPOSITION Home-Health Care [facility] [6] ACTIVE ISSUES REQUIRING FOLLOW UP ORTHOPEDIC [...] and either have them pushed to the [facility] or sent to Dr. Higuera's team via disc for review. You will be scheduled for an in person follow up visit at 12 weeks post surgery with repeat imaging at which time advancement to your weight bearing will be discussed.Please contact Dr. Higuera's team with any questions regarding follow up plan at [phone]. NO FOLLOW UP REQUIRED WITH TRAUMA-CRITICAL CARE-GENERAL SURGERY (TCGS): You do not require a follow up appointment at this time. If you are having difficulty, have questions or would like to be seen in follow-up, please call to make an appointment at [phone]. If you need to reach a provider on the TCGS service after hours, you may call the [facility] marshmallow machine operator at and ask to speak the provider apron cleaner for the Trauma-Critical Care-General Surgery (TCGS) Service. If you have forms that need addressed by the surgery team or outside records that need to be uploaded, please email them to [email or web address] or fax them at [phone]. Issue: Follow up with pelvis x-rays What [...] from Ladder Mr. Grayson was transported to [facility] as a level red trauma for [...] #8 Fracture Acetabulum Other Closed Initial Left ([facility]) #9 Fracture Ilium Closed Initial Left ([facility]) Multiple comminuted fractures of left [...] discharge home with home health care services (jail, health aide, PT/OT). Services, equipment, and adaptations [...] IP CONSULT TO NEUROLOGY IP CONSULT TO [facility] IN MEDICINE SERVICES ([facility]) IP CONSULT TO STOCK CONTROL SUPERVISOR LITERACY EDUCATION PROFESSOR IP CONSULT TO STOCK CONTROL SUPERVISOR LITERACY EDUCATION PROFESSOR IP CONSULT TO VASCULAR MEDICINE IP CONSULT TO STOCK CONTROL SUPERVISOR LITERACY EDUCATION PROFESSOR IP CONSULT TO CARE MANAGEMENT CONDITION AT DISCHARGE stable Discharge instructions were provided to the patient and caregiver(s). Total time spent in discharge services today: 35 minutes. documented in this encounter Discharge Instructions * Discharge Instructions* Stephanie Beckham - 11/24/2023 7:00 AM CDT You were discharged from the [facility] Trauma Service. Please identify this service name [...] 12/27/2023 by Rissa Calles O.T. Contact information: [facility], [address], * Attachments The following attachments cannot be sent through Care Everywhere. * Acetaminophen (By mouth) (Stateless) * Finasteride (By mouth) (Stateless) * Melatonin (By mouth) (Stateless) * Metoprolol (By injection) (Stateless) * Polyethylene Glycol 3350 (By mouth) (Stateless) * Laxative, Stimulant (By mouth) (Stateless) * Tamsulosin (By mouth) (Stateless) documented in this encounter Medications at Time [...] Subarachnoid Hemorrhage Without Loss Of Conscious Initial ([facility]) #3 Contusion Scalp Initial Left frontal lobe [...] Closed With Stable Disruption Pelvis Ring Initial ([facility]) #8 Fracture Acetabulum Other Closed Initial Left ([facility]) #9 Fracture Ilium Closed Initial Left ([facility]) -S/p ORIF Acetabulum (11/25/23) -OTS-1 consulted -TTWB [...] #15 Thrombosis Deep Vein Lower Extremity Left ([facility]) Left Soleal DVT -Vascular Medicine consulted -Noted [...] [facility], discharge later today If you have any questions or concerns please page the Trauma Service at [phone] * Hayley Durham L.G.S.W., M.S.W. - 12/27/2023 9:25 AM CDT SUBJECTIVE Social Work communicated with PT and patient's regarding walker availability at home. Social Work spoke to patient's after his return home. Patient's maroon/red bag did not return home withhim. Social Work inquired with nursing about the missing item. Social Work called [facility]. [facility] stated that the [facility] gave them two white bags and [...] home health aide, PT, OT provided by [facility] Modifications to home environment: ramp, grab bars, relocate bedroom, and hospital bed Transportation: wheelchair van Anticipated discharge destination: Home OBJECTIVE Patient is medically ready for discharge. Ramp was installed on 12/23/23. Hospital bed will be delivered on 12/27/23. Home health aide and PT/OT being arranged by the [facility]. ASSESSMENT / PLAN Assessment Those noted above appear to have insight into the patient's needs at this time and are planning appropriately for discharge needs. They report agreement with the below plan with no further questions at this time. Plan Patient will discharge home on 12/27/23 with [facility] ([phone]) at 10:00 am. [facility] will meet the patient at the main west doors. Patient's will not be present at discharge as she will be awaiting delivery of hospital bed inthe home. Social Work will continue to follow to provide support. Social Work will continue to assist with discharge needs. Melissa Ahuja., M.S.W. 12/27/2023 * Naveed Higuera, LOC C.N.P., M.S.N. - 12/26/2023 5:29 PM CDT [...] 100 % Pulse Rate: [64-71] 65 I/O 12/23 0701 12/24 0700 12/24 0712/25 0712/25 0701 12/26 0700 P.O. 540 220 360 Total Intake(mL/kg) [...] concerns please page the Trauma Service at [phone] * Nydia Shepard D.T.R. - 12/26/2023 3:43 PM CDT Clinical Nutrition: Reassessment RECOMMENDATIONS REQUIRING MD/PROVIDER ORDER No changes at this time; continue current nutrition orders For questions about patient's nutritional care please contact pager [phone] on weekdays or [phone] on weekends/holidays. NUTRITION ASSESSMENT: Mr. Grayson is a 83 y.o. male who was admitted for fall off ladder Requested to see patient for evaluation of: oral intake encouragement. Current Diet Order: Adult Diet Regular Spoke with WORK MEASUREMENT ENGINEER in room with Carlos Alberto (he slept [...] 28.7 kg/m?? ESTIMATED NEEDS: Total Calorie Needs: 0915-5607 calories/day Method to Estimate Energy Needs: kcal/kg [...] Labs, Nausea/Vomiting/Diarrhea, Chewing/Swallowing * Lalita Boyd P.T., D.P.T. - 12/26/2023 2:54 PM CDT 12/26/23 1454 [...] Social Work spoke with Margie at the [facility] regarding home health services. Margie continues to work towards establishing PT/OT/jail/home health aide. Margie also shares that patient's [facility] provider has created necessary PT/OT/jail/homehealth orders. Social Work confirmed with patient's that [...] home health aide, PT, OT provided by [facility] Modifications to home environment: ramp, grab bars, relocate bedroom, and hospital bed Transportation: wheelchair van Anticipated discharge destination: Home OBJECTIVE Patient is medically ready for discharge. Ramp was installed on 12/23/23. Hospital bed will be delivered on 12/27/23. Home health aide and PT/OT being [facility] by [facility]. ASSESSMENT / PLAN Assessment Those noted above appear to have insight into the patient's needs at this time and are planning appropriately for discharge needs. They report agreement with the below plan with no further questions at this time. Plan Patient will discharge home on 12/27/23 with [facility] ([phone]) at 10:00 am. [facility] will meet the patient at the main west doors. Patient's will not be present at discharge as she will be awaiting delivery of hospital bed inthe home. Social Work will continue to follow to provide support. Social Work will continue to assist with discharge needs. Melissa Ahuja., M.S.W. 12/26/2023 * Alejandra Justin, Pharm.DTarik, R.Ph. - 12/26/2023 9:11 AM CDT Pharmacist [...] anticipate ongoing metoprolol, ramelteon, finasteride, tamsulosin Alejandra Justin Pharm.D., R.Ph. * Kavon Mancilla APRN, C.N.P., D.N.P. [...] concerns please page the Trauma Service at [phone] * Kavon Mancilla APRN, C.N.P., D.N.P. - 12/24/2023 2:38 PM CDT Images from [...] concerns please page the Trauma Service at [phone] * Alexi Khan M.D. - 12/24/2023 1:25 PM CDT I saw and examined the patient along with the resident/EXECUTIVE RECRUITER-PA team and agree with the findings and [...] ready for discharge. Alexi Khan MD, FACS Fire Safety Inspector assistant project manager, [facility] Division of Trauma, Critical Care and General Surgery; Department of Surgery (Pager) (office) fax [email or web address] * Sheldon Leigh APRN, C.N.P., M.S.N. - [...] voiding -Disposition to home with and HHC ([facility] pending approval) Mechanism of Injury: Fall from [...] Pending VA approval Please page trauma at [phone] with any questions regarding the care of this patient. Thanks. * Hayley Durham L.Janna.S.Josephine., M.S.W. - 12/23/2023 10:22 AM CDT SUBJECTIVE Social Work reviewed patient's 's voicemail from 12/22/23. She [facility] support for patient through [facility] in [place], [place] ([phone]; Olga Singleton-powder and primer canning leader). Social Work communicated via email and the telephone with Clara [facility] and via phone multiple times with Margie [facility] regarding discharge needs. Social Work sentcatheterization orders and description (Barbadian 14) to [facility] nurse supporting patient's PCP, Hayley Diaz. Addendum 1242: Social Work spoke to patient's . Ramp is being installed currently. Hospital bedwill be delivered on Tuesday. She requests wheelchair transport for a 12/27/23 discharge. OBJECTIVE Patient is awaiting DME and home health support arrangements in place via [facility] system to ensure safe discharge plan home with spousal support. ASSESSMENT / PLAN ASSESSMENT Patient's cognitive status precludes patient from placement in jail facility. Patient's is not agreeable to placement in Memory Care facility. Patient's desires patient dischargeto home with home health care support and DME arranged by [facility]. Patient's appears experienced and competent in providing cares in the home after discharge. 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 Patient's appears to be appropriately planning for patient's discharge needs and serves as an excellent advocate for patient. Patient's is extremely proactive and collaborative with [facility] Social Work and [facility]. Discharge planning progress continues. Waiting on ramp installation, hospital bed delivery, home health aide arrangement, and OT/PT arrangement, as well as catheters. Ramp and bed are expected to be in place by 12/24/23. PLAN -Patient's discharge disposition is home with home health care (jail, health aide, PT/OT) and DME provided (through [facility]) in advance on 12/27/23. -Transportation will be via wheelchair transport. -Social Work will assist with transition planning and will offer supportive visits as necessary during remainder of patient's hospital stay. Aimee Ahuja, M.S.W. 12/23/23 * Aelxi Khan M.D. - 12/22/2023 3:10 PM CDT I saw and examined the patient along with the resident/EXECUTIVE RECRUITER-PA team and agree with the findings and [...] with home health. Alexi Khan MD, FACS Fire Safety Inspector assistant project manager, [facility] Division of Trauma, Critical Care and General Surgery; Department of Surgery (Pager) (office) fax [email or web address] * Sheldon Leigh APRN, C.N.P., M.S.N. - 12/22/2023 10:49 AM CDT [...] at home with HHC provided by the [facility] contrary to our recommendations of SNF vs Memory care unit. -Will continue to wait until [facility] can set up HHC for patient to [...] #8 Fracture Acetabulum Other Closed Initial Left ([facility]) #9 Fracture Ilium Closed Initial Left ([facility]) Multiple comminuted fractures of left [...] at this time Please page trauma at [phone] with any questions regarding the care of this patient. Thanks. * Hayley Durham L.G.S.W., M.S.W. - 12/21/2023 5:14 PM CDT SUBJECTIVE Social Work collaborated with colleague regarding progress towards discharge and reviewed relevant email communications with VA staff. Social Work sent email to three involved [facility] staff and left voicemail for [facility] social worker [facility]. Social Work left voicemail for Margie Manley, [facility] ([phone]) inquiring about status of home health assistance and catheter supplies. Social Work spoke with patient's on the telephone. Patient's reports: -Hospital Bed will be delivered by [facility] in [place] possibly by Tuesday. -Ramp will possibly be installed on Tuesday or Tuesday. -Son will support patient's in initial days of patient returning home. -Patient's niece Heather and her will support patient's for a few days after patient's son returns to [place]. -Margie [facility] staff, left her voicemail indicating [facility] cannot provide home health aide services and the VA is providing home health aide support only. -Urinary catheter supplies are needed prior to discharge. OBJECTIVE Patient is medically ready for discharge and is awaiting provision of necessary DME for safe discharge. ASSESSMENT / PLAN ASSESSMENT Patient's cognitive status precludes patient from placement in jail facility. Patient's is not agreeable to placement in Memory Care facility. Patient's desires patient dischargeto home with home health care support and DME arranged by [facility]. Patient's appears experienced and competent in providing cares in the home after discharge. 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 Patient's appears to be appropriately planning for patient's discharge needs and serves as an excellent advocate for patient. Patient's is extremely proactive and collaborative with [facility] Social Work and [facility]. PLAN -Social Work will contact Margie and other VA staff regarding DME, especially urinary catheters. -Patient's discharge disposition is home with home health care and DME provided (through [facility]) in advance. This may take 1-2 weeks (or more) for [facility] to arrange. -Patient's spouse intends to provide supportive in-home care as well. -Transportation needs will be addressed closer to time of discharge. -Social Work will assist with transition planning and will offer supportive visits as necessary during remainder of patient's hospital stay. Hayley Durham L.G.Paulino.Josephine., M.S.W. 12/21/23 * Lin De La Rosa [...] to situation (unable to name town in [facility] that he is from.) Following Commands: One Step Commands One Step Commands: Follows one step commands with increased time, Follows one step commands with repetition Memory: Impairments noted Safety/Judgment Comments: supervise for safety in the hospital setting. LE Dressing LE Dressing Location: Supported sitting in bed LE Dressing Delivery: Educated LE Dressing Adaptive Equipment: Construction Rigger, Dressing stick, Sock aid, Long shoe horn [...] the city that he is from in [facility]. At this time patient will require significant [...] Total Treatment Time (min): 23 min Lin eD La Rosa O.T. * Maria Del Carmen Diaz PTarikTTarikATarik - 12/21/2023 12:05 PM CDT Physical Therapy [...] to self and that he is in [place]. He is able to follow directions this [...] Therapeutic functional activity, Neuromuscular re-education, Gait training HEALTH SOCIAL WORK PROFESSOR Visit Trackin Time Spent with Patient Therapeutic Interventions Therapeutic Activity (min): 15 min Therapeutic Exercise (min): 15 min Time Tracking Total Timed Units (min): 30 min Total Treatment Time (min): 30 min Tian MagallanesTYenny * Mani Noe L.G.S.W., M.S.W. - 12/21/2023 10:49 AM CDT [...] may take 1-2 weeks (or more) for [facility] to arrange. -Patient's spouse intends to provide [...] of the left acetabulum. Family/Caregiver Present: Yes (WORK MEASUREMENT ENGINEER) Patient/Caregiver Goals: Pt goal to return home. [...] was contacted and patient's status was discussed (WORK MEASUREMENT ENGINEER present for therapy session) Patient was left in bed at end of session with call light in reach, all needs met and questions answered. Additional Staff Present During Session: WORK MEASUREMENT ENGINEER Assessment Time Dysphagia Assessment Completed: Clinical Impression/Recommendations: Patient seen for dysphagia treatment this date. Today's session focused on meal observation of regular diet textures to assess readiness to upgrade diet. Upon entering the room, patient noted to be drinking liquids in a recumbent position with WORK MEASUREMENT ENGINEER present. Educated both patient and WORK MEASUREMENT ENGINEER on importance of adherence to aspiration precautions. [...] 7:00am to 4:00pm: Our service pager at [facility]: #[phone] Our service pager at [facility]: #[phone] * Em Wellington APRN, C.N.P. - 12/21/2023 7:25 AM CDT Trauma [...] he is hoping to go home with [facility] and his at discharge. VITAL SIGNS: Temperature: [...] Closed With Stable Disruption Pelvis Ring Initial ([facility]) #8 Fracture Acetabulum Other Closed Initial Left ([facility]) #9 Fracture Ilium Closed Initial Left ([facility]) Multiple comminuted fractures of left [...] #12 Thrombosis Deep Vein Lower Extremity Left ([facility]) Left Soleal DVT Vascular Medicine consulted. Noted with isolated distal provoked DVT. Recommended repeat US. performed on 12/18 with no noted change. No therapeutic anticoagulation necessary. DVT prophylaxis will continue due to decreased mobility. We will monitor. 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 * Kaycee Jimenez C.O.T.A. - 12/20/2023 3:34 [...] true. Will continue to follow. * Kaycee Bolaños, Mauricio., O.T., [facility] - 12/20/2023 2:45 PM CDT PROGRESS NOTE: Received a secure chat in [employer] from registered dietitian from patient's nutrition team. [...] at this time Please page trauma at [phone] with any questions regarding the care of [...] last days with [place]. Family agrees with jail facility, social work actively looking for placement. Patient medically ready for discharge. * Maria Del Carmen Diaz P.TYenny - 12/20/2023 12:34 PM CDT Physical Therapy [...] Therapeutic functional activity, Neuromuscular re-education, Gait training HEALTH SOCIAL WORK PROFESSOR Visit Trackin (HEALTH SOCIAL WORK PROFESSOR 6th visit observation completed this date with [...] developed in collaboration with the patient. * Michael Loretta Cota - 12/20/2023 12:10 PM CDT Clinical Nutrition: Reassessment RECOMMENDATIONS REQUIRING MD/PROVIDER ORDER When ready to advance, order regular easy to chew diet. For questions about patient's nutritional care please contact pager [phone] on weekdays or [phone] on weekends/holidays. NUTRITION ASSESSMENT: Mr. Grayson is [...] be possible to change his diet order. Accounting Machine Mechanic was informed OT was planning to trail [...] 7.1 kg ESTIMATED NEEDS: Total Calorie Needs: 4435-2815 calories/day Method to Estimate Energy Needs: kcal/kg [...] calling patient's spouse (Joseline, , mobile / [phone], home) to discuss discharge plans. Joseline is adamant about wanting to care for Mr. Grayson in their home, with support from home health care ([facility]) agency. These are details from that conversation: Joseline indicated that she has been working very hard to support the current discharge plan; for example, she had just called Clara and left message (BRANDY Elizabeth at [facility], ; ). She also spoke with someone named Edmar, who can access VA files andcan help provide funding for items/needs that [facility] can't fund. As soon as [facility] sends hospital bed and ramp (to be installed), she feels patient can go home safely. Joseline has already received some supplies from the [facility], but not the aforementioned bed or ramp. She infers from supplies received that the [facility] has the necessary supply list (faxed by Social Work to [facility] yesterday). She is aware that patient transfers [...] that coordinating DME and services with the [facility] often does take a considerable amount of time.) She said [facility] (contracted through [facility]) is their preferred agency, and they have [...] emails from 3 different staff persons at [facility]. One had indicated that the form sent by Social Work on 12/19/2023 had not been received. A second had indicated that the form had not been received. A third had referenced a ashraf detail from the form, for they wondered where in the bathroom the grab bars are to be placed. (It is clear that the [facility] has the necessary information.) Social Work encouraged them to share the form and to contact patient's spouse toask such a question. The 3 staff persons are these: BRANDY Sandoval at [facility], ; [email or web address] Dacia Atkins, KAMINIT, [facility] Outpatient Catheter Builder Referral Coordination PT Size Roller Operator [facility] Heidi Dashcindy Reynoso OBJECTIVE Mr. Carlos Alberto Grayson is an 83-year-old male patient hospitalized on FR 05C, Room 124 (for Fracture Ilium Closed Initial Left). ASSESSMENT / PLAN ASSESSMENT Patient was not assessed but continues to benefit from Social Work's coordination of care. PLAN -Patient's discharge disposition is home with home health care and DME provided (through [facility]) in advance. This may take 1-2 weeks (or more) for [facility] to arrange. -Patient's spouse intends to provide supportive in-home care as well. -Transportation needs will be addressed closer to time of discharge. -Social Work will assist with transition planning and will offer supportive visits as necessary during remainder of patient's hospital stay. Aimee Moe, M.S.W. 12/20/23 * Kaycee Jimenez C.O.TPerez. - 12/19/2023 3:56 PM CDT 12/19/23 1556 Reason Therapy Missed Reason Therapy Missed Patient declined therapy Patient refused OT this afternoon and became agitated when therapist attempted to provide educationon benefits of OT. Will try to coordinate an OT session when patients is present. * Mani Noe L.G.S.W., M.S.W. - 12/19/2023 2:49 PM CDT SUBJECTIVE Social Work engaged in record review and communicated with interdisciplinary team regarding patient's discharge-related needs. Social Work called [facility] staff (BRANDY Elizabeth at [facility], ; ) to confirm receipt of completed form that was emailed (as attachment) on 12/16/2023. Clara said she could see the email but not the attachment (which is visible in Social Work's SentItems folder). Social Work asked Health Health Economist staff to fax Community Therapist Durable Medical Equipment Request Form to PT staff at [facility] ([facility], Therapy Department, FAX: [phone]). Clara expressed her intent to email [employer] Work when form has been received by PT staff at [facility]. OBJECTIVE Mr. Carlos Alberto Grayson is an 83-year-old male patient hospitalized on FR 05C, Room 124 (for Fracture Ilium Closed Initial Left). ASSESSMENT / PLAN ASSESSMENT Patient was not assessed but continues to benefit from Social Work's coordination of care. PLAN -Patient's discharge disposition is home with home health care and DME provided (through [facility]) in advance. This may take 1-2 weeks (or more) for [facility] to arrange. It has been reported that [...] - No follow up required in the [facility] clinic for single rib fracture #9 Fracture Acetabulum Other Closed Initial Left ([facility]) #10 Fracture Pelvis Multiple Closed With Stable Disruption Pelvis Ring Initial ([facility]) #11 Fracture Ilium Closed Initial Left ([facility]) -Multiple comminuted fractures of the left anterior [...] at this time Please page trauma at [phone] with any questions regarding the care of [...] Closed With Stable Disruption Pelvis Ring Initial ([facility]) #11 Fracture Ilium Closed Initial Left (HCC) -Multiple comminuted fractures of the left anterior [...] at this time Please page trauma at [phone] with any questions regarding the care of [...] and healing appropriately without erythema or drainage. [place]an[place] removed. Calf soft and non-tender. Neurovascularly intact [...] please contact the Orthopedic Surgery house resident apron cleaner at [phone] * Ailyn Reeder M.S., O.T., [facility] - 12/16/2023 3:25 PM CDT 12/16/23 1525 Reason Therapy Missed Reason Therapy Missed No visit this date Attempted to see patient in PM. Patient perseverating on calling his , however, phone currentlydisabled. Patient politely declined OT on this date. OT will continue to follow and progress plan of care as able. Electronically signed by: Ailyn Reeder M.S., O.TTarik, MOT 12/16/23 3:26 PM CDT * Maria Del Carmen Diaz, PTarikTYenny - 12/16/2023 3:17 PM CDT Physical Therapy [...] . Attempt to redirect patient that and social worker school working on discharge planning and patient unable to redirect from wanting to call his . WORK MEASUREMENT ENGINEER reports that patient has called several times [...] Therapeutic functional activity, Neuromuscular re-education, Gait training HEALTH SOCIAL WORK PROFESSOR Visit Trackin Time Spent with Patient Therapeutic Interventions Therapeutic Activity (min): 18 min Time Tracking Total Timed Units (min): 18 min Total Treatment Time (min): 18 min Tian MagallanesTYenny * Garland Meyer P.A.-C. - 12/16/2023 12:54 [...] - No follow up required in the [facility] clinic for the one rib fracture #9 Fracture Acetabulum Other Closed Initial Left ([facility]) #10 Fracture Pelvis Multiple Closed With Stable Disruption Pelvis Ring Initial ([facility]) #11 Fracture Ilium Closed Initial [...] contact the Trauma service with questions at [phone]. * Mani Noe L.G.S.W., M.S.W. - 12/16/2023 9:07 AM CDT SUBJECTIVE Social Work engaged in record review and communicated with interdisciplinary team regarding patient's discharge-related needs. Social Work emailed completed Community Therapist Durable Medical Equipment Request Form to [facility] staff: BRANDY Elizabeth at [facility] ([phone]; [email or web address]). OBJECTIVE Mr. Carlos Alberto Grayson is an [...] provide necessary DME to patient's home (and [facility]), with patient's spouse providing the majority of [...] M.S.W. 12/16/23 * Kaycee Bolaños M.A., O.T., [facility] - 12/15/2023 3:50 PM CDT OT Dysphagia Progress Note: Patient about to go into the bathroom with WORK MEASUREMENT ENGINEER. OT had gathered cereal with milk, toast, [...] Therapist Assisted, Facilitated UE Dressing Items Included: data governance analyst shirt UE Dressing Level of Assistance: Supervision/Set-up [...] to dressing stick, long handled shoehorn, and refund specialist. These dressing aides will maximize patient independence [...] % Pulse Rate: [64-82] 82 I/O 12/12 0701 12/13 0700 12/13 0712/14 0712/14 0712/15 0700 P.O. 480 1300 [...] with family at assistive devices provided by [facility]. Mechanism of Injury: Fell from a 6 [...] contact the Trauma service with questions at [phone]. * Mani Noe L.G.SPeggy., M.S.W. - 12/15/2023 [...] received by day's end): BRANDY Elizabeth at [facility] ([phone]; [email or web address]) OBJECTIVE Mr. Carlos Alberto Grayson is an [...] about patient's nutritional care please contact pager [phone] on weekdays or [phone] on weekends/holidays. NUTRITION ASSESSMENT: Mr. Grayson is a 83 y.o. male who was admitted for trauma after fall from ladder suffering SAH, TBI, DVT, rib fracture, pleural effusion, pelvic fracture. Note history of dementia Requested to see patient for evaluation of: oral intake encouragement. Current Diet Order: Adult Diet Dysphagia; Thin (TN0); Soft and Bite-Sized (SB6) Spoke with WORK MEASUREMENT ENGINEER taking care of Carlos Alberto late yesterday [...] from late breakfast. He needs placement at [facility]. ANTHROPOMETRICS: Height: 180.3 cm Admission Weight: 86.3 kg (11/23/2023) Current Weight: 93.4 kg BMI (Calculated): 28.7 kg/m?? ESTIMATED NEEDS: Total Calorie Needs: 6808-8154 calories/day Method to Estimate Energy Needs: kcal/kg [...] with them for a couple of weeks [facility] wing patient d/c. Patient already owns a walker, [...] bench: required as patient is unable to shirt line operator the shower safely and abide by weight bearing precautions. Recommending as opposed to shower chair in order to aid in abiding by weightbearing restrictions and limit need to step over side of tub - Bedside commode: required due to current level of difficulty transferring and [facility] patient, transfer device, and 2 [...] held showerhead: since patient is unable to shirt line operator shower, he will require a handheld showerhead [...] functional baseline and would benefit from ronak ng skilled OT services to address listed deficits [...] Training: Yesterday, PT/OT notified by that the [facility] needed equipment recommendations for homegoing. PT/OT met [...] bench: required as patient is unable to shirt line operator the shower safely and abide by weight [...] handheld showerhead: since patient is unable to shirt line operator shower, he will require a handheld showerhead [...] equipment for homegoing. She is anticipating the [facility] to provide all equipment and daily home [...] Therapeutic functional activity, Neuromuscular re-education, Gait training HEALTH SOCIAL WORK PROFESSOR Visit Trackin Time Spent with Patient Therapeutic Interventions Therapeutic Activity (min): 60 min Time Tracking Total Timed Units (min): 60 min Total Treatment Time (min): 60 min Margie Roth P.T., Olivia.P.TTarik * Lizett Ashraf O.T., O.T.D., [facility] - [...] % Pulse Rate: [64-76] 64 I/O 12/11 0712/12 0712/12 0701 12/13 0712/13 0701 12/14 0700 P.O. 480 480 Total [...] with family at assistive devices provided by [facility]. Mechanism of Injury: Fell from a 6 [...] - No follow up required in the [facility] clinic for the one rib fracture #9 Fracture Acetabulum Other Closed Initial Left ([facility]) #10 Fracture Pelvis Multiple Closed With Stable Disruption Pelvis Ring Initial ([facility]) #11 Fracture Ilium Closed Initial Left ([facility]) Multiple comminuted fractures of the [...] contact the Trauma service with questions at [phone]. * Ailyn Reeder M.S., O.T., [facility] - 12/13/2023 3:40 PM CDT Occupational Therapy [...] Subarachnoid Hemorrhage With Loss Of Conscious Initial ([facility]) 8. Other Shock (Hemorrhagic Shock) ([facility]) 9. Fracture Pelvis Multiple Closed [...] Rate: [71-83] 83 I/O 12/10 0701 12/11 0700 12/11 0701 12/12 0700 12/12 0701 12/13 0700 P.O. 470 480 480 [...] - No follow up required in the [facility] clinic for the one rib fracture #9 Fracture Acetabulum Other Closed Initial Left ([facility]) #10 Fracture Pelvis Multiple Closed With Stable Disruption Pelvis Ring Initial ([facility]) #11 Fracture Ilium Closed Initial Left ([facility]) Multiple comminuted fractures of the [...] contact the Trauma service with questions at [phone]. * Hayley Durham L.G.SPeggy., M.S.W. - 12/13/2023 12:32 PM CDT SUBJECTIVE Social Work spoke with [facility] Battalion Chief, Colleen, on the phone. Social Work communicated with therapy regarding obtain completed VA DME form. OBJECTIVE Patient has been medically ready and awaiting placement. Referrals sent: [facility] - DECLINED (cannot accept 1:1) [facility] - DECLINED (cannot accept 1:1) [facility] (needs to be off 1:1) [facility] [place] - will assess if off of Safety Plan for 24 hours [facility] - will assess if off of Safety Plan for [address] [facility] - will assess if off of Safety Plan for 72 hours [facility] [address] [facility] - DECLINED (cannot accept 1:1 in their demential unit) [facility] - DECLINED (no 's homes in [place] provide short term rehab; [facility] does not take 1:1) [facility] - DECLINED (Safety Plan) [facility] - DECLINED (Safety Plan) [facility] - DECLINED (Safety Plan) [facility] - DECLINED (Safety Plan) [facility] - DECLINED (Safety Plan) [facility] - DECLINED (full) [facility]-DECLINED (they do not accept for short term rehab) [facility] - DECLINED (cannot provide for patient's needs) [facility] -DECLINED (facility full) [facility] (facility full) [facility] - DECLINED (acuity too high) [facility] - DECLINED (bed not available) [facility] - DECLINED (full) [facility] - DECLINED (patient needs) [facility] - DECLINED (out of service area) [facility] -DECLINED (services not available) [facility] ASSESSMENT / PLAN ASSESSMENT Patient may now have medical readiness delayed by identification of blood clot. [facility] isassessing on 12/12/23. PLAN Social Work will obtain completed [facility] DME forms for hospital bed, ramp into home, transfer belt, shower chair, and pivot disk if therapy feels it is safe. Social Work will provide completed [facility] DME forms to Colleen [facility] Battalion Chief Patient's desires patient to discharge to jail facility with PT/OT for 0-3 months. She endorses broad referrals throughout [place] and into [place] if necessary. She is interested in nursing homes/critical access hospitals/'s homes. [place] PAS: Conformation is: [id number] Patient's would like patient to return to home with home health care if jail facility is not available. The [facility] system can assist patient with necessary equipment and supplies; this will take 1-2 weeks if all goes well. Patient's is not agreeable to Memory Care placement. Social Work will continue to assist with discharge needs. Social Work will continue to follow to provide support. Aimee Ahuja, M.S.W. 12/13/23 * Maria Del Carmen Diaz P.TYenny - 12/13/2023 12:21 PM CDT Physical Therapy [...] Therapeutic functional activity, Neuromuscular re-education, Gait training HEALTH SOCIAL WORK PROFESSOR Visit Trackin Time Spent with Patient Therapeutic Interventions Therapeutic Activity (min): 20 min Therapeutic Exercise (min): 10 min Time Tracking Total Timed Units (min): 30 min Total Treatment Time (min): 30 min Maria Del Carmen Diaz P.T.A. * Kong Mendoza M.D. - 12/13/2023 10:47 AM CDT Patient reviewed with the trauma team. Interval head CT scan demonstrates resolution of intraventricular hemorrhage Updated ultrasound in follow up of the left soleal vein DVT notes mild improvement Plan: Vascular Medicine consultation Follow up with Neurosurgery regarding full systemic anticoagulation should it be indicated per Vascular Medicine Ongoing PT/OT Dispo: Anticipate jail facility; home health referrals also sent * Hayley Durham L.G.SVianey, M.S.W. - 12/13/2023 8:02 AM CDT SUBJECTIVE Social Work communicated with Physical Therapy, Occupational Therapy, [facility] Social Work, Nursing, and patient's regarding discharge planning and VA DME paperwork. OBJECTIVE Patient is awaiting DME and home health care service establishment through the [facility] for return to home with support from , retired home health care nurse. ASSESSMENT / PLAN ASSESSMENT Patient's appears experienced and competent in providing cares in the home after discharge. She is a retired home health nurse and also worked in long term care social worker care on a unit with 19 Alzheimer's patients. Patient's appears to be appropriately planning for patient's discharge needs and serves as an excellent advocate for patient. Patient's is extremely proactive and collaborative with [facility] Social Work and [facility] Social Work. Patient's anticipates meeting with PT/OT on 12/14/23 between 1-3pm for education on patient's mobility needs. PLAN Social Work will obtain VA DME form from [facility] and fax this to the [facility] as well as email [facility] Social Work of submission. Patient will discharge home with support from his . Patient will have home health care (nursing, PT, and OT) and DME arranged by [facility] Battalion Chief Clara Craig. Patient's will provide transportation. Patient and his anticipate moving to [place] to live with their son and [id number] in approximately 3 months with the completion of an addition to their home to accommodate patient and patient's . Social Work will continue to follow to provide support. Social Work will continue to follow to assist with discharge needs. Aimee Ahuja, M.S.W. 12/14/23 * Javier Sanchez P.T., D.P.T., [facility] - 12/12/2023 4:21 PM CDT Physical Therapy [...] was left seated in bedside chair with WORK MEASUREMENT ENGINEER present with an appropriate call light within [...] Therapeutic functional activity, Neuromuscular re-education, Gait training HEALTH SOCIAL WORK PROFESSOR Visit Trackin Time Spent with Patient Therapeutic Interventions Therapeutic Activity (min): 20 min Time Tracking Total Timed Units (min): 20 min Total Treatment Time (min): 20 min Javier Sanchez P.T., Olivia.P.TTarik, HUBER * Ailyn Reeder M.S., O.T., [facility] - 12/12/2023 3:33 PM CDT 12/12/23 1532 [...] signed by: Ailyn Reeder M.S., O.T., RADHA 12/12/23 3:35 PM CDT * Collette [...] arranged with neurosurgery in 1 month with [facility]. Please page Chief C service pager [phone]) with questions or concerns. * Hayley Durham L.G.S.W., M.S.W. - 12/12/2023 1:05 PM CDT SUBJECTIVE Social Work communicated with the [facility], [facility], [facility], [facility], [facility], [facility], [facility], [facility], [facility] Battalion Chief, Service and Nursing regarding discharge planning. Social Work requested Colleen [facility] Battalion Chief, to begin process of supporting patient in the home with DME and home health care. OBJECTIVE Patient has been medically ready and awaiting placement. Referrals sent: [facility] - DECLINED (cannot accept 1:1) [facility] - DECLINED (cannot accept 1:1) [facility] (needs to be off 1:1) [facility] [place] - will assess if off of Safety Plan for 24 hours [facility] - will assess if off of Safety Plan for [address] [facility] - will assess if off of Safety Plan for 72 hours [facility] [address] [facility] - DECLINED (cannot accept 1:1 in their demential unit) [facility] - DECLINED (no 's homes in [place] provide short term rehab; [facility] does not take 1:1) [facility] - DECLINED (Safety Plan) [facility] - DECLINED (Safety Plan) [facility] - DECLINED (Safety Plan) [facility] - DECLINED (Safety Plan) [facility] - DECLINED (Safety Plan) [facility] - DECLINED (full) [facility] (they do not accept for short term rehab) [facility] - DECLINED (cannot provide for patient's needs) [facility] -DECLINED (facility full) [facility] (facility full) [facility] - DECLINED (acuity too high) [facility] - DECLINED (bed not available) [facility] - DECLINED (full) [facility] [facility] - DECLINED (patient needs) [facility] - DECLINED (out of service area) [facility] -DECLINED (services not available) [facility] ASSESSMENT / PLAN ASSESSMENT Patient may now have medical readiness delayed by identification of blood clot. [facility] isassessing on 12/12/23. PLAN Social Work will obtain completed [facility] DME forms for hospital bed, straight urinary catheters, betadine wipes, urinal, bath/shower chair, and personal cleaning wipes. Social Work will provide completed [facility] DME forms to Colleen [facility] Battalion Chief Patient's desires patient to discharge to jail facility with PT/OT for 0-3 months. She endorses broad referrals throughout [place] and into [place] if necessary. She is interested in nursing homes/critical access hospitals/'s homes. [place] PAS: Conformation is: [id number] Patient's would like patient to return to home with home health care if jail facility is not available. The [facility] system can assist patient with necessary equipment and supplies; this will take 1-2 weeks if all goes well. Patient's is not agreeable to Memory Care placement. Social Work will continue to assist with discharge needs. Social Work will continue to follow to provide support. Aimee Ahuja, M.S.W. 12/12/23 * Lizett Ashraf O.T., O.T.D., [facility] - 12/12/2023 12:36 PM CDT Occupational Therapy [...] questions answered. Additional Staff Present During Session: WORK MEASUREMENT ENGINEER Assessment Time Dysphagia Assessment Completed: 12:36 pm [...] current plan Plan Comments: next session: trial kristen, assess readiness to upgrade further Re-evaluate: As [...] 7:00am to 4:00pm: Our service pager at [facility]: #[phone] Our service pager at [facility]: #[phone] * Em Chino, R.N. - 12/12/2023 11:04 AM CDT SUBJECTIVE Discharge planning - new home health care referrals. Home Medical Care - Admitted Since 11/23/2023 Service Provider Request Status Selected Services Address Phone Fax Patient [facility]erred [facility] Health Pending - Request Sent N/A [address] [facility] [phone] -- Home Health Care Pending - Request Sent N/A [address] [facility] [address] [address] [phone] -- [facility] Services Pending - Request Sent N/A [address] [facility] [phone] -- [facility] Pending - Request Sent N/A [address] [facility] [address] -- [facility] Pending - Request Sent N/A [address] [facility] [phone] -- [facility] Pending - Request Sent N/A [address] [facility] [phone] -- [facility] Pending - Request Sent N/A [address], [facility] [phone] -- [facility] Pending - Request Sent N/A [address], [facility] [phone] -- OBJECTIVE Patient is admitted in [facility] 5C-room 124 ASSESSMENT / PLAN ASSESSMENT Patient is not seen at this time, however benefitted from care coordination. landscape account manager sent home health care referrals to [...] complaints. Sitting comfortably in bed with a WORK MEASUREMENT ENGINEER at bedside. Vital Signs: BP (!) 128/52 [...] to abdominal incision on 11/25/2023 for ORIF. [place] were used to close the wounds. On [...] Brain Traumatic With Loss Of Consciousness Initial ([facility]) - PMR TBI consulted who will continue [...] - No follow up required in the [facility] clinic for the one rib fracture #9 Fracture Acetabulum Other Closed Initial Left ([facility]) #10 Fracture Pelvis Multiple Closed With Stable Disruption Pelvis Ring Initial ([facility]) #11 Fracture Ilium Closed Initial Left ([facility]) Multiple comminuted fractures of the [...] free to page the Trauma Service at [phone] with any questions in regards to the [...] that hopefully we can find him a jail facility. He is understanding. Vital Signs: BP (!) 108/50 Pulse 83 Temp 36.9 ??C (Axillary) Resp 16 Ht 180.3 cm Wt 93.4 kg SpO2 93% BMI 28.73 kg/m?? Temperature: [36.4 ??C-37.3 ??C] 36.9 ??C Resp Rate: [16-18] 16 Blood Pressure: (105-125)/(50-66) 108/50 SpO2: [93 %-98 %] 93 % Pulse Rate: [71-89] 83 I/O 12/08 0701 12/09 0700 12/09 0701 12/10 0700 P.O. 1200 624 Total [...] - No follow up required in the [facility] clinic for the one rib fracture #9 Fracture Acetabulum Other Closed Initial Left (HCC) #10 Fracture Pelvis Multiple Closed With Stable Disruption Pelvis Ring Initial ([facility]) #11 Fracture Ilium Closed Initial Left ([facility]) Multiple comminuted fractures of the [...] free to page the Trauma Service at [phone] with any questions in regards to the [...] / PLAN Mr. Grayson is hospitalized on [facility] Trauma for evaluation and management of: Fracture [...] 83 y.o. male who presented to the [facility] Emergency Department(ED) after suffering a fall from a ladder while attempting to repair a leak in his roof. He has significant medical comorbidities of cognitive impairment, BPH, macular degeneration, cataracts, LAC COURTE OREILLES. Trauma survey was notable for a subarachnoid [...] was discussed with Dr. Barry Boston, HIM ent consultant. I personally spent a total of 35 minutes providing and coordinating care today. Thank you for the opportunity to care for this patient. We will sign off at this time. Please page the Geriatrics Consult Service at [phone] with any questions or concerns. * Cristla Johnson P.A.-C. - 12/10/2023 9:10 AM CDT [...] - No follow up required in the [facility] clinic for the one rib fracture #9 Fracture Acetabulum Other Closed Initial Left ([facility]) #10 Fracture Pelvis Multiple Closed With Stable Disruption Pelvis Ring Initial ([facility]) #11 Fracture Ilium Closed Initial Left ([facility]) Multiple comminuted fractures of the [...] free to page the Trauma Service at [phone] with any questions in regards to the plan of care. * Barb Davies M.D. - 12/09/2023 3:39 PM CDT Trauma Daily Progress Note ([phone]) Admission Date/Time: 11/23/2023 12:47 PM SUBJECTIVE Patient [...] #9 Fracture Acetabulum Other Closed Initial Left ([facility]) #10 Fracture Pelvis Multiple Closed With Stable Disruption Pelvis Ring Initial ([facility]) #11 Fracture Ilium Closed Initial Left ([facility]) Multiple comminuted fractures of the [...] team members are in agreement that pursuing jail facility placement to focus on rehabilitation. Vision is does add that she would limit his admission to three-month and then wishes to take him home to [place] with family support as well as home health care if needed. Nursing staff will attempt to wean close observation as safely able in the context of 2 recent guided falls. Please page the [facility]-Trauma Service at [phone] with any questions in regards to the plan of care. * Pippa Lee ODeepak., O.T.D. - 12/09/2023 2:59 PM CDT Occupational [...] cues and switched to left foot on HEALTH SOCIAL WORK PROFESSOR's foot to monitor weight bearing and verbal [...] Therapeutic functional activity, Neuromuscular re-education, Gait training HEALTH SOCIAL WORK PROFESSOR Visit Trackin Time Spent with Patient Therapeutic Interventions Therapeutic Activity (min): 20 min Therapeutic Exercise (min): 10 min Time Tracking Total Timed Units (min): 30 min Total Treatment Time (min): 30 min Maria Del Carmen Diaz P.T.A. * Hayley Durham L.G.S.W., M.S.W. - 12/09/2023 9:33 AM CDT SUBJECTIVE Social Work communicated with [facility] and [facility]. Social Work sent referral to [facility] [place], [place] (fax: [phone]). Social Work communicated with [facility]Social Work communicated with [facility]. Social Work communicated with Nursing and Service regarding safety plan. Social Work left multiple voicemails with [facility] regarding admission assessment. Social Work left voicemail for [place] Battalion [place]. Social Work left voicemail at [facility]. Social Work left voicemail at [facility]. SocialWork resent failed fax to [facility] and then called to verify working fax number. This recent fax also failed and Social Work left a voicemail for professor of social work requesting verification of fax number or new number. OBJECTIVE Patient is medically ready for discharge and awaiting placement. Referrals sent: [facility] - will assess if off of Safety Plan [facility] [address] ACO [facility] - DECLINED (Safety Plan) [facility]CO - DECLINED (Safety Plan) [facility]CO - DECLINED (Safety Plan) [facility] - DECLINED (Safety Plan) [facility] - DECLINED (Safety Plan) [facility] ACO - DECLINED (full) [facility]-DECL[facility] (they do not accept for short term rehab) [facility] - DECLINED (cannot provide for patient's needs) [facility] -DECLINED (facility full) [facility] (facility full) [facility] - DECLINED (acuity too high) [facility] - DECLINED (bed not available) [facility] - [facility]CLINED (full) [facility] - DECLINED (patient needs) ASSESSMENT / PLAN ASSESSMENT Patient's cognitive needs are a barrier to jail placement. Patient's has extensive experience with home health care nursing and nursing home care nursing on an Alzheimer's unit. [place] is able to support more than 2 hours of home health care services weekly. PLAN Patient's desires patient to discharge to jail facility with PT/OT for 0-3 months. She endorses broad referrals throughout [place] and into [place] if necessary. She is interested in nursing homes/critical access hospitals/'s homes. [place] PAS: Conformation is: [id number] Patient's would like patient to return to home with home health care if jail facility is not available. [facility] can assist patient with necessary equipment and supplies. Patient's is not agreeable to Memory Care placement. Social Work will continue to assist with discharge needs. Social Work will continue to follow to provide support. Aimee Ahuja, M.S.W. 12/09/23 * uRth Zuluaga P.A.-C. - 12/09/2023 7:33 AM CDT Geriatrics Consult - Progress Note SUBJECTIVE Mr. Pringle was seen and evaluated by the Geriatric Medicine consult service this morning. He was resting in bed and in no acute distress. He was quite sleepy but woke up, greeted the team, and had no concerns. WORK MEASUREMENT ENGINEER at the bedside reports he slept poorly [...] time that he was spending with the WORK MEASUREMENT ENGINEER at the bedside. I have reviewed the [...] / PLAN Mr. Grayson is hospitalized on [facility] Trauma for evaluation and management of: Fracture [...] 83 y.o. male who presented to the [facility] Emergency Department(ED) after suffering a fall from a ladder while attempting to repair a leak in his roof. He has significant medical comorbidities of cognitive impairment, BPH, macular degeneration, cataracts, LAC COURTE OREILLES. Trauma survey was notable for a subarachnoid [...] was discussed with Dr. Barry Boston, HIM ent consultant. I personally spent a total of 50 minutes providing and coordinating care today. Thank you for the opportunity to care for this patient. We will continue to follow with you. Pleasepage the Geriatrics Consult Service at [phone] with any questions or concerns. * Lizett [...] 2 times per week. Tamia Ashraf O.T., Hugh, VINITA * Nurys Cifuentes P.A.-C. - 12/08/2023 [...] not acutely ill, no apparent distress. ENT: LAC COURTE OREILLES Lungs: Normal rate and effort Heart: No extremity edema. Abdomen: nondistended, nontender Mental: Attention intact (completed backwards days) RASS 0. Converses well. Alert. Answers questions generally appropriately. Was telling nursing Jf did not want him to get catheterized. DIAGNOSTICS I have independently reviewed labs over 24 hrs. ASSESSMENT / PLAN Mr. Grayson is hospitalized on [facility] Trauma for evaluation and management of: Fracture Ilium Closed Initial Left (HCC). 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 Increase mobility to match ability. Frequent reorientation. Provide moderate level of social and cognitive stimulation. Treat dehydration and constipation. Nonpharmacologic sleep promotion strategies. The above plan of care was discussed with Dr. Coello, HIM ent consultant. I personally spent a total of 35 minutes providing and coordinating care today. Thank you for the opportunity to care for this patient. We will continue to follow with you. Pleasepage the Geriatrics Consult Service at [phone] with any questions or concerns. * Fidelina [...] and not believing he needs them; however, WORK MEASUREMENT ENGINEER confirmed he is still drinking them. Will [...] 1357 GI Function: Last BM Date: 12/08/23, [place] Stool Chart: Type 4: Like a sausage or snake, smooth and soft, Passing Flatus: Yes Weight since admission: Height: 180.3 cm Admission Weight: 86.3 kg (11/23/2023) Current Weight: 93.4 kg (11/30/2023) BMI (Calculated): 28.7 kg/m?? Weight change since admission: 7.1 kg Net IO Since Admission: -2,395.43 mL [12/08/23 1125] Estimated Needs: Total Calorie Needs: 0056-0706 calories/day Method to Estimate Energy Needs: kcal/kg [...] about patient's nutritional care please contact pager [phone] on weekdays 07:30-16:00 or [phone] on weekends/holidays ([facility]). * Maria Del Carmen Diaz, P.T.A. - [...] cues and switched to left foot on HEALTH SOCIAL WORK PROFESSOR's foot to monitor weight bearing and verbal [...] Therapeutic functional activity, Neuromuscular re-education, Gait training HEALTH SOCIAL WORK PROFESSOR Visit Trackin Time Spent with Patient Therapeutic Interventions Therapeutic Activity (min): 20 min Therapeutic Exercise (min): 10 min Time Tracking Total Timed Units (min): 30 min Total Treatment Time (min): 30 min Maria Del Carmen Diaz P.T.Mitzi * Chavez Ashby Jr., LOC, C.N.P., M.S.N. - 12/08/2023 8:37 AM CDT Trauma Daily Progress Note [phone]) Admission Date/Time: 11/23/2023 12:47 PM SUBJECTIVE No [...] % Pulse Rate: [73-91] 76 Date 12/07/23 0700 - 12/08/23 0659 12/08/23 07 - 12/09/23 0659 Shift 6565-8312 5424-0946 5509-4111 24 Hour Total 2834-8080 6226-3673 7645-2620 24 Hour Total INTAKE P.O. 600 600 [...] Closed With Stable Disruption Pelvis Ring Initial ([facility]) #11 Fracture Ilium Closed Initial Left ([facility]) Multiple comminuted fractures of the [...] planning. All are in agreement that pursuing jail facility placement to focus on rehabilitation. Vision [...] Please feel free to page me at [phone] between [phone]. If unable to reach me please page the [facility]-Trauma Service at [phone] with any questions in regards to the plan of care. * Alexi Khan M.D. - 12/07/2023 7:24 PM CDT I saw and examined the patient along with the resident/EXECUTIVE RECRUITER-PA team and agree with the findings and [...] transfer to SNF. Alexi Khan MD, FACS Fire Safety Inspector assistant project manager, [facility] Division of Trauma, Critical Care and General Surgery; Department of Surgery (Pager) (office) fax [email or web address] * Alexi Hahn Chaplain - 12/07/2023 10:45 AM CDT [facility] Spiritual Care Consult Note Patient: Carlos Alberto Grayson Age:83 y.o. Location: [id number] Reason(s) for encounter: Spiritual Care contact for ongoing spiritual care. Summary: I was able to meet with Carlos Alberto Grayson . At the time of the visit the patient said that he had only been in the hospital for 30 minutes. He seemed pleasantly confused. He did engage with the school childcare attendant on a spiritual conversation level. A prayer was said at the bedside. Monitoring Manager Jamil was present and his WORK MEASUREMENT ENGINEER was in the room with him. Spiritual Assessment Latter Day Identification / Spiritual Practices: He was a Anabaptism and he seems to have a Evangelical background. Spiritual Care interventions: Facilitated christian/spiritual practices (prayer, blessing, sacred texts, christian item) with theaim to reinforce patient's spiritual wellness and connection with source of sacredness. Spiritual Care outcomes: Patient/family expressed feeling comforted by prayer Patient/family was appreciative of spiritual care support. Spiritual Care Plan / Recommendations: Will remain available for spiritual care as needed or requested. Chaplains can be contacted by paging [phone] ([place]) or [phone] (Rastafari). * Nurys Cifuentes P.A.-C. - 12/07/2023 10:25 [...] not acutely ill, no apparent distress. ENT: LAC COURTE OREILLES Lungs: Normal rate and effort Heart: No extremity edema. Abdomen: nondistended, nontender Mental: Attention intact (completed backwards days and months May-Mar) No evidence of disorganized thinking. RASS 0. Converses well. DIAGNOSTICS I have independently reviewed labs over 24 hrs. ASSESSMENT / PLAN Mr. Grayson is hospitalized on [facility] Trauma for evaluation and management of: Fracture Ilium Closed Initial Left (HCC). 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 Comorbidities include (collateral received from [facility]ayla- [...] of these General delirium prevention/management strategies: Minimize CARBON CUTTER-acting medications. Increase mobility to match ability. Frequent reorientation. Provide moderate level of social and cognitive stimulation. Treat dehydration and constipation. Nonpharmacologic sleep promotion strategies. The above plan of care was discussed with Dr. Coello, HIM ent consultant. I personally spent a total of 35 minutes providing and coordinating care today. Thank you for the opportunity to care for this patient. We will continue to follow with you. Pleasepage the Geriatrics Consult Service at [phone] with any questions or concerns. * Hayley Durham L.G.S.W., MTarikSPeggy. - 12/07/2023 10:03 AM CDT SUBJECTIVE Social Work contacted [place] [employer] regarding insurance coverage listed on patient's facesheet and . Social Work communicated with [facility], [facility], and [facility].Social Work resent referral package to [facility], [facility], and [facility]. Social Work sent referrals to [facility], [facility], [facility], [facility], and [facility]. Social Work spoke with patient's on [...] provide 24/ presence between herself, paid help, [place] home health care (20+ hours per week), and anabaptist friends. 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 She is comfortable with cathing, hoier lifts, slings, wheelchairs, etc. The [facility] can assist patient with providing a hoier lift, sling, wheelchairs, walkers, incontinence supplies, and hospital bed. This can take some time to arrange, perhaps up to one month. Patient's will contact [facility] Battalion Chief Clara regarding this on 12/08/23. Patient's is [...] to await safe discharge plan. Referrals sent: [facility] - will assess if off of Safety Plan [facility] [address] [facility] ACO [facility] ACO [facility] [place] [facility] ACO - DECLINED (full) [facility]-DECLINED (they do not accept for short term rehab) [facility] - DECLINED (cannot provide for patient's needs) [facility] -DECLINED (facility full) [facility]-DECL[facility] (facility full) [facility] - DECLINED (acuity too high) [facility] ACO - DECLINED (bed not available) [facility] [address] - DECLINED (full) [facility] [place] - DECLINED (patient needs) ASSESSMENT / PLAN ASSESSMENT Patient's continues to collaboratively plan for patient's safe discharge plan. PLAN Patient's desires patient to discharge to jail facility with PT/OT for 0-3 months. She endorses broad referrals throughout [place] and into [place] if necessary. She is interested in nursing homes/critical access hospitals/'s homes. [place] PAS: Conformation is: [id number] Patient's would like patient to return to home with home health care if jail facility is not available. The [facility] system can assist patient with necessary equipment and supplies. Patient's is not agreeable to Memory Care placement. Social Work will continue to assist with discharge needs. Social Work will continue to follow to provide support. Aimee Ahuja, M.S.W. 12/07/23 * Chavez Ashby Jr., LOC, C.N.P., M.S.N. - 12/07/2023 7:16 AM CDT Trauma Daily Progress Note ([phone]) Admission Date/Time: 11/23/2023 12:47 PM SUBJECTIVE Mr. [...] 94 % Pulse Rate: [66-90] 80 Date 12/06/23699 - 12/07/23 0659 12/07/23 07 - 12/08/23 0659 Shift 2298-6792 4076-6721 3961-3254 24 Hour Total 0677-3897 8101-1586 9028-1830 24 Hour Total INTAKE P.O. 565 030 1917 Shift Total(mL/kg) 900(9.6) 250(2.7) 1150(12.3) OUTPUT Urine(mL/kg/hr) [...] #9 Fracture Acetabulum Other Closed Initial Left ([facility]) #10 Fracture Pelvis Multiple Closed With Stable Disruption Pelvis Ring Initial ([facility]) #11 Fracture Ilium Closed Initial Left ([facility]) Multiple comminuted fractures of the [...] planning. All are in agreement that pursuing jail facility placement to focus on rehabilitation. Vision [...] Please feel free to page me at [phone] between [phone]. If unable to reach me please page the [facility]-Trauma Service at [phone] with any questions in regards to the [...] care. Social Work spoke with staff at [facility], [facility], and [facility] regardingprevious referrals. Social Work resent referral to those three facilities. Social Work sent referrals to [facility] [address], [facility], [facility], [facility], [facility], [facility], and [facility]. OBJECTIVE Patient is now considered medically ready for discharge. Referrals sent: [facility] A[facility] ACO [facility]-DECLINED (facility full) [facility] -DECLINED (facility full) [facility] (they do not accept for short term rehab) [facility] - SNF ASSESSMENT / PLAN ASSESSMENT Patient's is collaboratively planning appropriately for patient's discharge needs. PLAN Patient will discharge to jail facility for short term rehab. Social Work [...] remains hemodynamically stable and afebrile. The bedside WORK MEASUREMENT ENGINEER states that the patient slept ok overnight [...] intake over multiple days. Discussed with bedside WORK MEASUREMENT ENGINEER about encouraging oral intake. OBJECTIVE Temperature: [36.3 [...] #9 Fracture Acetabulum Other Closed Initial Left ([facility]) #10 Fracture Pelvis Multiple Closed With Stable Disruption Pelvis Ring Initial ([facility]) #11 Fracture Ilium Closed Initial Left ([facility]) Multiple comminuted fractures of the [...] planning. All are in agreement that pursuing jail facility placement to focus on rehabilitation. Vision [...] concerns please page the Trauma Service at [phone] * Raegan Drew, P.Donald., D.P.T. - 12/06/2023 1:30 PM CDT Physical [...] Patient Comments: Laying in bed upon arrival. WORK MEASUREMENT ENGINEER at bedside. Precautions Weight Bearing Status: TTWB [...] Drew P.T., D.P.T. * Daniela Torres R.N., CVianeyCTarikN. - 12/06/2023 11:[address] [facility] Wound RN following up to assess Carlos Alberto Powerscharbeldavid skin alterations. Wound assessment, pain, and Bradly [...] assessed while lying in bed with unit WORK MEASUREMENT ENGINEER at bedside. The right pretibial traumatic wound [...] Secondary Dressing Status Clean;Dry;Intact Changed by Wound passenger booking clerk Head to toe assessment completed. DRESSING RECOMMENDATIONS: [...] not acutely ill, no apparent distress. ENT: LAC COURTE OREILLES Lungs: Normal rate and effort Heart: No extremity edema. Abdomen: nondistended, nontender Mental: Attention intact (completed backwards days and months with one mistake) No evidence of disorganized thinking. RASS 0. CAM negative for acute delirium. DIAGNOSTICS I have independently reviewed labs over 24 hrs. ASSESSMENT / PLAN Mr. Grayson is hospitalized on [facility] Trauma for evaluation and management of: Fracture Ilium Closed Initial Left (HCC). 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 Comorbidities include (collateral received from Mikayla- [...] to home with home health care versus WORK MEASUREMENT ENGINEER support. RECOMMENDATIONS: Continue I&O cathing every 6 hours Continue new tamsulosin and finasteride Continue increased dose of melatonin Continue IV olanzapine 2.5 mg PRN only if patient or staff safety is concerning General delirium prevention/management strategies: Minimize CARBON CUTTER-acting medications. Increase mobility to match ability. Frequent reorientation. Provide moderate level of social and cognitive stimulation. Treat dehydration and constipation. Nonpharmacologic sleep promotion strategies. The above plan of care was discussed with Dr. Coello, HIM ent consultant. I personally spent a total of 50 minutes providing and coordinating care today. Thank you for the opportunity to care for this patient. We will continue to follow with you. Pleasepage the Geriatrics Consult Service at [phone] with any questions or concerns. * Mickey Benton M.D. - 12/05/2023 9:10 PM CDT Orthopedic Service: OTS-1 Hospital Admission Day: 11/23/2023 Length of Stay: 12 Procedures: Surgery Information This Encounter Past Procedures (12/01/2022 to Today) Date Procedures Providers Loc / Dept 11/25/2023 OPEN REDUCTION INTERNAL FIXATION ACETABULUM. Naveed Higuera M.D.Mickey Benton M.D.Baltazar Foreman M.D.Blake, Sherie Cagle M.D. RST ROMB OR [...] please contact the Orthopedic Surgery house resident apron cleaner at [phone] * Alexi Khan M.D. - 12/05/2023 4:46 PM CDT I saw and examined the patient along with the resident/EXECUTIVE RECRUITER-PA team and agree with the findings and [...] vs memory care. Alexi Khan MD, FACS Fire Safety Inspector assistant project manager, [facility] Division of Trauma, Critical Care and General Surgery; Department of Surgery (Pager) (office) fax [email or web address] * Hayley Durham L.G.S.W., M.S.W. - 12/05/2023 [...] ready for discharge by 12/09/23. Referrals sent: [facility]fac[facility]) [facility]) [facility]-DECLIN[facility] (they do not accept for short term rehab) [facility] - SNF ASSESSMENT / PLAN ASSESSMENT Patient disposition is dependent on safety to return home or appropriateness for jail facility based on cognition. PLAN Patient's would like patient to return home with home health care. Referrals are out for short term rehab placement. Social work will continue to follow to provide support. Social Work will continue to assist with discharge needs. Aimee Ahuja, M.S.W. 12/05/23 * Fidelina Lopes 12/05/2023 2:25 PM CDT Nutrition Care Plan Follow Up Clinical Nutrition continues to follow patient for oral intake encouragement and oral nutrition supplement follow up/adjustment. ASSESSMENT Completed visit with patient and care team today as part of face to face care. Current Nutrition (since admission): Spoke with patient and WORK MEASUREMENT ENGINEER. Patient's appetite has been improving according to the WORK MEASUREMENT ENGINEER and patient himself. He frequently sips fluids during meals and is having no issues chewing or swallowing with his current texture (SB6). According to WORK MEASUREMENT ENGINEER, patient drinks his Ensure Plus and smoothie [...] 1357 GI Function: Last BM Date: 12/05/23, [place] Stool Chart: Type 3: Like a sausage but with cracks onthe surface, Passing Flatus: Yes Weight since admission: Height: 180.3 cm Admission Weight: 86.3 kg (11/23/2023) Current Weight: 93.4 kg (11/30/2023) BMI (Calculated): 28.7 kg/m?? Weight change since admission: 7.1 kg Net IO Since Admission: 439.57 mL [12/05/23 1435] Estimated Needs: Total Calorie Needs: 5796-7133 calories/day Method to Estimate Energy Needs: kcal/kg [...] about patient's nutritional care please contact pager [phone] on weekdays 07:30-16:00 or [phone] on weekends/holidays ([facility]). * Margie Roth P.T., D.P.T. - 12/05/2023 [...] and pain despite encouragement from PT and WORK MEASUREMENT ENGINEER. Continues to be disoriented to time, place, [...] get up from the bed with 2 WORK MEASUREMENT ENGINEER's in the room when I arrived this AM. He was pleasant and alert. He was onlyoriented to himself. He was unable to tell me where he was or why. He was semi re-directable but with multiple cues. Per bedside nurse and WORK MEASUREMENT ENGINEER he did have another assisted fall (or [...] TO HOSPITAL INTERNAL MEDICINE IP CONSULT TO [facility] INTERNAL MEDICINE IP CONSULT TO PHYSICAL MEDICINE & REHABILITATION IP CONSULT TO NEUROLOGY IP CONSULT TO CARBON CUTTER WOUND CARE HUMANITIES IN MEDICINE SERVICES ([facility]) IP CONSULT TO STOCK CONTROL SUPERVISOR LITERACY EDUCATION PROFESSOR IP CONSULT TO STOCK CONTROL SUPERVISOR LITERACY EDUCATION PROFESSOR ASSESSMENT / PLAN Diet: Adult Diet Dysphagia; [...] vein - Discussed with Dr. Khan (trauma ent consultant on 12/04) & due to the [...] (HCC) #11 Fracture Ilium Closed Initial Left ([facility]) Multiple comminuted fractures of the [...] concerns please page the Trauma Service at [phone] Addendum @ [phone]: Spoke to Mrs. Grayson this afternoon about [...] house and she does not believe that [facility] understands if he should be doing [...] follow for medication use optimization. Josef Ferrara, PharmTarikD., R.Ph. * Izabella Burkett, O.T., [facility] - 12/05/2023 9:15 AM CDT Occupational Therapy Dysphagia Treatment SUBJECTIVE Patient's Name: Carlos Alberto Kenan Referring/Attending Provider: Alexi Khan M.D. Medical Diagnosis: [...] Date: 11/23/23 Payor: [employer] / Plan: [facility] / Product Type: Indemnity / [...] Patient sitting chair with breakfast present and WORK MEASUREMENT ENGINEER. Precautions Weight Bearing Status: TTWB LLE - [...] and patient's status was discussed, Other (comment) (WORK MEASUREMENT ENGINEER present for therapy session) Patient was left in bedside chair at end of session with call light in reach, all needs met and questions answered. Additional Staff Present During Session: WORK MEASUREMENT ENGINEER Assessment Time Dysphagia Assessment Completed: 915 Clinical Impression/Recommendations: Patient was observed sitting upright in bedside chair with scrambled eggs, breakfast potatoes, oatmeal, and diced pears with milk. Patient had no overt signs of aspiration with bites observed. Patient appeared to have poor appetite this morning and was only agreeable to few bites. WORK MEASUREMENT ENGINEER present during meal to ensure aspiration precautions [...] 7:00am to 4:00pm: Our service pager at [facility]: #[phone] Our service pager at [facility]: #[phone] * Kezia Lopes APRN, C.N.P., D.N.P. - [...] PLAN Mr. Grayson is hospitalized on [facility] Trauma for evaluation and management of: Fracture Ilium Closed Initial Left (HCC). 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 Increase mobility to match ability. Frequent [...] care was discussed with Dr. Coello, HIM ent consultant. I personally spent a total of 25 minutes providing and coordinating care today. Thank you for the opportunity to care for this patient. We will continue to follow with you. Pleasepage the Geriatrics Consult Service at [phone] with any questions or concerns. * Lizett Ashraf O.T., O.T.D., SCFES - 12/04/2023 12:50 PM CDT Occupational therapy [...] Subarachnoid Hemorrhage With Loss Of Conscious Initial ([facility]) 8. Other Shock (Hemorrhagic Shock) ([facility]) 9. Fracture Pelvis Multiple Closed With Stable Disruption Pelvis Ring Initial ([facility]) 10. Dysphagia [R13.10] 11. Decline Cognitive [R41.81] [...] was sitting in bed with 1:1 room WORK MEASUREMENT ENGINEER and nurse providing cares. Nursing identified Carlos [...] this morning upon my arrival with a WORK MEASUREMENT ENGINEER in the room. He does not appear [...] the room from the chair. Per the WORK MEASUREMENT ENGINEER that was in the room the patient [...] the floor. I did speak with Ortho [place] this morning and we will obtain pelvic [...] CONSULT TO NEUROLOGICAL SURGERY IP CONSULT TO [facility] INTERNAL MEDICINE IP CONSULT TO [facility] INTERNAL MEDICINE IP CONSULT TO PHYSICAL MEDICINE & REHABILITATION IP CONSULT TO NEUROLOGY IP CONSULT TO CARBON CUTTER WOUND CARE HUMANITIES IN MEDICINE SERVICES ([facility]) IP CONSULT TO STOCK CONTROL SUPERVISOR LITERACY EDUCATION PROFESSOR ASSESSMENT / PLAN Diet: Adult Diet Dysphagia; [...] Closed With Stable Disruption Pelvis Ring Initial ([facility]) #11 Fracture Ilium Closed Initial Left ([facility]) Multiple comminuted fractures of the [...] concerns please page the Trauma Service at [phone] * Kezia Lopes APRN, C.N.P., D.N.P. - [...] / PLAN Mr. Grayson is hospitalized on [facility] Trauma for evaluation and management of: Fracture Ilium Closed Initial Left (HCC). 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 Comorbidities include (collateral received from Mikayla- [...] is concerning General delirium prevention/management strategies: Minimize CARBON CUTTER-acting medications. Increase mobility to match ability. Frequent [...] care was discussed with Dr. Green, HIM ent consultant. I personally spent a total of 25 minutes providing and coordinating care today. Thank you for the opportunity to care for this patient. We will continue to follow with you. Pleasepage the Geriatrics Consult Service at [phone] with any questions or concerns. * Lizett Ashraf O.T., O.T.D., [facility] - 12/03/2023 1:20 PM CDT Occupational Therapy Dysphagia Treatment SUBJECTIVE Patient's Name: Carlos Alberto Grayson Referring/Attending Provider: Landen Quinonez M.D. Medical Diagnosis: Anemia [D64.9] Contusion Buttock Initial [S30.0XXA] Subarachnoid Hemorrhage With Loss Of Conscious Initial (HCC) [S06.6X9A] Fracture Acetabulum Closed Initial Left (HCC) [S32.402A] Fracture Ilium Closed Initial Left (HCC) [S32.302A] History Of Falling [Z91.81] Other Shock (Hemorrhagic Shock) ([facility]) [R57.8] Retroperitoneal Hematoma [K68.3] Reason for Referral: Reason for Referral: OT dysphagia Onset Date: 11/23/23 Payor: [facility] ADMIN[facility]ATION / Plan: [facility] / Product Type: Indemnity / [...] and patient's status was discussed, Other (comment) (WORK MEASUREMENT ENGINEER present for therapy session) Patient was left in bedside chair at end of session with call light in reach, all needs met and questions answered. Additional Staff Present During Session: WORK MEASUREMENT ENGINEER Assessment Time Dysphagia Assessment Completed: 1:20 pm [...] 7:00am to 4:00pm: Our service pager at [facility]: #[phone] Our service pager at [facility]: #[phone] * Lalita Bacon APRN, C.N.P., D.N.P. - 12/03/2023 9:45 AM CDT Images from the original note were not included. SUBJECTIVE I met and examined Mr. Grayson this morning. Mr. Grayson is hospital day 10 for management of histraumatic injuries following a fall from a ladder. On my initial arrival patient was asleep with the 1:1 WORK MEASUREMENT ENGINEER at bedside, I left the patient sleeping [...] IP CONSULT TO NEUROLOGY IP CONSULT TO CARBON CUTTER WOUND CARE HUMANITIES IN MEDICINE SERVICES ([facility]) IP CONSULT TO STOCK CONTROL SUPERVISOR LITERACY EDUCATION PROFESSOR ASSESSMENT / PLAN Diet: Adult Diet Dysphagia; [...] #9 Fracture Acetabulum Other Closed Initial Left ([facility]) #10 Fracture Pelvis Multiple Closed With Stable Disruption Pelvis Ring Initial ([facility]) #11 Fracture Ilium Closed Initial Left ([facility]) Multiple comminuted fractures of the [...] able Electronically signed by: Lalita Bacon APRN, C.N.PTarik, D.N.P. If you have any questions or concerns please page the Trauma Service at [phone] * Kezia Lopes APRN C.N.PTarik, D.N.P. - 12/03/2023 7:16 AM CDT Geriatrics Consult - Progress Note SUBJECTIVE Seen this morning. He was sleeping on and off. Per WORK MEASUREMENT ENGINEER, he ate all his breakfast. He had [...] / PLAN Mr. Grayson is hospitalized on [facility] Trauma for evaluation and management of: Fracture Ilium Closed Initial Left (HCC). 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 Increase mobility to match ability. Frequent reorientation. Provide moderate level of social and cognitive stimulation. Treat dehydration and constipation. Nonpharmacologic sleep promotion strategies. Continue new tamsulosin and finasteride. Continue q4h voiding schedule and encouraging him to sit at the edge of the bed or use commode for urination The above plan of care was discussed with Dr. Green, HIM ent consultant. I personally spent a total of 25 minutes providing and coordinating care today. Thank you for the opportunity to care for this patient. We will continue to follow with you. Pleasepage the Geriatrics Consult Service at [phone] with any questions or concerns. * Bella [...] 12/02/23 0700 12/02/23 07 - 12/02/23 1900 12/02/231900 - 12/03/23 0637 Closed/Suction Drain 1 Left;Lateral [...] please contact the Orthopedic Surgery house resident apron cleaner at [phone] * Lalita Bacon, LOC, C.N.P., D.N.P. - 12/02/2023 8:14 PM CDT Images from the original note were not included. SUBJECTIVE I met and examined Mr. Grayson this morning. Mr. Grayson is hospital day 9 for management of his traumatic injuries following a 6 ft fall from a ladder. He was resting in bed with the WORK MEASUREMENT ENGINEER sitting at bedside. He is alert but [...] IP CONSULT TO NEUROLOGY IP CONSULT TO CARBON CUTTER WOUND CARE HUMANITIES IN MEDICINE SERVICES ([facility]) IP CONSULT TO STOCK CONTROL SUPERVISOR LITERACY EDUCATION PROFESSOR ASSESSMENT / PLAN Diet: Adult Diet Dysphagia; [...] Brain Traumatic With Loss Of Consciousness Initial ([facility]) - PMR TBI consulted - Education given [...] #9 Fracture Acetabulum Other Closed Initial Left ([facility]) #10 Fracture Pelvis Multiple Closed With Stable Disruption Pelvis Ring Initial ([facility]) #11 Fracture Ilium Closed Initial Left ([facility]) Multiple comminuted fractures of the [...] concerns please page the Trauma Service at [phone] * All-Tamia Fried, Ph.D., P.T., D.P.T. - [...] D.P.T. * Harmony Kee Ed.D., M.S., O.T., [facility] - 12/02/2023 2:28 PM CDT Occupational Therapy [...] Bundy, R.Ph. * Lizett Ashraf O.T., O.T.D., [facility] - 12/02/2023 12:14 PM CDT 12/02/23 1530 [...] textures, as able.) Tamia Ashraf O.T., O.T.D., SCFES * Hayley Durham L.G.SePggy., M.S.W. - 12/02/2023 11:32 AM CDT SUBJECTIVE Social Work spoke with BEN Elizabeth at [facility] ([phone]). Social Work communicated with Nico[facility] at [facility]. They will need patient off Safety Plan for 24 hours prior to admission. They also are unable to verify patient's Medicare number. OBJECTIVE Per [place] Social Work, patient does not have VA short-term rehab or long-term care benefits. He does have [place] home care benefits. Patient is on Safety Plan. Patient is anticipated to be ready for discharge by 12/02/23. Referrals sent: [facility]facility full) 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 Increase mobility to match ability. Frequent reorientation. Provide moderate level of social and cognitive stimulation. Treat dehydration and constipation. Nonpharmacologic sleep promotion strategies. Continue new tamsulosin and finasteride. Continue q4h voiding schedule and encouraging him to sit at the edge of the bed or use commode for urination The above plan of care was discussed with Dr. Cornelius Green ([phone]), HIM ent consultant. I personally spent a total of 35 minutes providing and coordinating care today. Thank you for the opportunity to care for this patient. We will continue to follow with you. Pleasepage the Geriatrics Consult Service at [phone] with any questions or concerns. * Mickey [...] 82 I/O last 3 completed shifts: In: 0 [P.O.:188] Out: 2375 [Urine:2335; Drains:40] PHYSICAL EXAM General: [...] please contact the Orthopedic Surgery house resident apron cleaner at [phone] * Landen Quinonez M.D. - 12/01/2023 5:04 PM CDT Patient seen reviewed with the trauma team. He had an episode of unresponsiveness on the commode. Patient was seen after this episode. Physical examination: Blood pressure 112/58, pulse 82, temperature 37 ??C, temperature source Oral, resp. rate 16, .3 cm, weight 93.4 kg, SpO2 94%. Patient [...] pain. Adjusted ONS order per discussion with patient/WORK MEASUREMENT ENGINEER. WORK MEASUREMENT ENGINEER reports eating is going well, he just [...] 1404 GI Function: Last BM Date: 12/01/23, [place] Stool Chart: Type 6: Fluffy pieces with [...] Medications: Scheduled Meds:acetaminophen, 650 mg, oral, Q6H eprgmrbwjqvqi-etiaeoiw-luiugsfbi in Lipoderm, 1 g, topical, TID bisacodyL, [...] kg (11/23/2023) Current Weight: 93.4 kg (11/30/23) [place] Body Weight (Calculated) : 75.3 kg BMI (Calculated): 28.7 kg/m?? Net IO Since Admission: 5,176.57 mL [12/01/23 1353] Weight history: Wt Readings from Last 12 Encounters: 11/30/23 93.4 kg Weight Change History: No weight change per . No weight history in medical record. Estimated Needs: Total Calorie Needs: 3303-0631 calories/day Method to Estimate Energy Needs: kcal/kg [...] about patient's nutritional care please contact pager [phone] on weekdays 07:30-16:00 or [phone] on weekends/holidays ([facility]). * Maria Del Carmen Diaz, P.T.A. - [...] extremity places forward and foot placed on HEALTH SOCIAL WORK PROFESSOR's foot to monitor weight bearing. Unable to [...] Therapeutic functional activity, Neuromuscular re-education, Gait training HEALTH SOCIAL WORK PROFESSOR Visit Trackin Time Spent with Patient Therapeutic Interventions Therapeutic Activity (min): 15 min Therapeutic Exercise (min): 12 min Time Tracking Total Timed Units (min): 27 min Total Treatment Time (min): 27 min Maria Del Carmen Diaz, P.T.A. * Kelly Johnson P.A.-C. 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 RECOMMENDATIONS: General delirium prevention/management strategies: Minimize CARBON CUTTER-acting medications. Increase mobility to match ability. Frequent [...] care was discussed with Dr. Cornelius Green [phone]), HIM ent consultant. I personally spent a total of 50 minutes providing and coordinating care today. Thank you for the opportunity to care for this patient. We will continue to follow with you. Pleasepage the Geriatrics Consult Service at [phone] with any questions or concerns. * Hayley Durham L.G.S.W., M.S.W. - 12/01/2023 10:58 AM CDT SUBJECTIVE Social Work communicated with [facility] and updated them on patient's insurance coverage. Social Work sent fax request to patient's PCP MARCO A Pablo (fax: [phone]) for shortterm rehab referral outside of the [place] system. Social Work communicated with [facility] regarding regional [place] contracted short term rehab facilities. Social Work sent updated insurance information to [facility]. Social Work expanded referrals to include: [facility], [facility], [facility], and [facility]. OBJECTIVE Patient is anticipated to be ready for discharge by 12/02/23. Referrals sent: [facility]fac[facility] full) [facility] -[facility]fac[facility] full) [facility]-DECLINED (they do not accept for short term rehab) [facility] - [facility] ASSESSMENT / PLAN ASSESSMENT Care Management obtained patient's VA number and Medicare number which will assist with accessing short term rehab placement. PLAN Patient's desires patient discharge to short term rehab as close to [place] as possible. Social Work will continue to [...] Closed With Stable Disruption Pelvis Ring Initial ([facility]) #12 Fracture Ilium Closed Initial Left (HCC) [...] concerns, please page the Trauma Service at [phone]. * Cata Bower O.T., O.T.DTarik - 12/01/2023 [...] Referral: OT dysphagia Onset Date: 11/23/23 Payor: [facility] ADMIN[facility]ATION / Plan: [facility] / Product Type: Indemnity / [...] of the left acetabulum. Family/Caregiver Present: Yes (WORK MEASUREMENT ENGINEER) Patient/Caregiver Goals: None stated Patient Comments: Patient [...] was contacted and patient's status was discussed (WORK MEASUREMENT ENGINEER engaged in therapy session) Patient was left with WORK MEASUREMENT ENGINEER present at end of session with call light in reach, all needs met and questions answered. Additional Staff Present During Session: WORK MEASUREMENT ENGINEER Assessment Time Dysphagia Assessment Completed: Clinical Impression/Recommendations: Patient sleeping with WORK MEASUREMENT ENGINEER present upon OT arrival but patient arousable and pleasant. Patient continues to present with confusion and delirium but was pleasant and appropriate throughout today's session. Assessed safety with oral intake of minced and moist barbadian toast, turkey sausage, mixed berries, and thin [...] 7:00am to 4:00pm: Our service pager at [facility]: #[phone] Our service pager at [facility]: #[phone] * Mickey Benton M.D. - 12/01/2023 6:26 [...] by Drain (mL) 11/29/23 07 - 11/29/23 19011/29/23 190 - 11/30/23 0700 11/30/23 0701 - 11/30/23 1900 11/30/23 190 [...] please contact the Orthopedic Surgery house resident apron cleaner at [phone] * Ishan Collins, R.R.T., L.R.T. - 11/30/2023 7:12 PM CDT [...] Work spoke to Flavia in [place] at [place] in [place]. Social Work spoke to [place] [employer] regarding patient's lacking insurance information. Social Work called VA benefits. Social Work communicates with Service regarding contributing factors of current cognitive challenges. Service indicates baseline cognition exacerbated by brain injury and hospital delirium as likely contributing factors. OBJECTIVE Patient is a service connected which qualifies him for coverage for nursing home care. The VA has to approve this long term care social worker care. Patient is on Safety Plan. ASSESSMENT [...] M.S., O.T., BCPR * Mansi Farrell O.T., [facility] - 11/30/2023 8:45 AM CDT Occupational Therapy [...] and patient's status was discussed, Other (comment) (WORK MEASUREMENT ENGINEER engaged in therapy session) Patient was left in bedside chair at end of session with call light in reach, all needs met and questions answered. Assessment Clinical Impression/Recommendations: Patient was eating breakfast when OT arrived. WORK MEASUREMENT ENGINEER was present in the room and she [...] 7:00am to 4:00pm: Our service pager at [facility]: #[phone] Our service pager at [facility]: #[phone] * Naveed Dan, PTarikAAnisa. - 11/30/2023 8:27 AM CDT SUBJECTIVE Mr. [...] on 11/22. Lasix 20mg iv q once /2 fluid overload/pulmonary congestion. F/u BMP stable - [...] concerns, please page the Trauma Service at [phone]. * Kelly Johnson P.A.-C. 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 RECOMMENDATIONS: General delirium prevention/management strategies: Minimize CARBON CUTTER-acting medications. Increase mobility to match ability. Frequent [...] care was discussed with Dr. Guru Bill ([phone]), HIM ent consultant. I personally spent a total of 35 minutes providing and coordinating care today. Thank you for the opportunity to care for this patient. We will continue to follow with you. Pleasepage the Geriatrics Consult Service at [phone] with any questions or concerns. * Mickey [...] 190 - 11/29/23 0711/29/23 07 - 11/29/23 1900 11/29/23 190 - 11/30/23 0711/30/23 07 - 11/30/23 0931 Closed/Suction Drain 1 Left;Lateral [...] both column acetabular fracture 11/[address] Yuan via limited ilioinguinal with ASIS osteotomy plus [...] please contact the Orthopedic Surgery house resident apron cleaner at [phone] * Tamia Pedraza, Ph.D., P.T., D.P.T. - [...] move R LE as able. PT and WORK MEASUREMENT ENGINEER helped support B LE and trunk during [...] day. [phone][facility] inquiring about patient's VA benefits. OBJECTIVE Patient was in his room with his eyes open. He politely answered Social Work brief questions. He did not know his 's phone number. Patient is anticipated to be medically ready at end of week or weekend. Referrals sent: [facility] ASSESSMENT / PLAN ASSESSMENT It appears application for Medicaid is initiated. Patient's lack of insurance my be a barrier for placement. Patient appears well-supported by and family. PLAN Patient may need to discharge to jail facility/swing bed. Social Work will continue to [...] R.N., C.W.C.N. - 11/29/2023 2:[address] [facility] Wound RN consulted to assess Carlos Alberto Yliniemi skin alterations. Wound assessment, pain, and Brad[place]core [...] Secondary Dressing Status Dry;Clean;Intact Changed by Wound passenger booking clerk Partial head to toe skin assessment completed; [...] to face care. Current Nutrition (since admission): WORK MEASUREMENT ENGINEER notes that he has eaten everything for [...] Last BM Date: 11/28/23 (per chart review), [place] Stool Chart: Type 6: Fluffy pieces with [...] Medications: Scheduled Meds:acetaminophen, 650 mg, oral, Q6H iskmbftoioeio-ufdfhuvd-xrbiqsmjk in Lipoderm, 1 g, topical, TID bisacodyL, [...] 86.3 kg (11/23/2023) Current Weight: 86.6 kg [place] Body Weight (Calculated) : 75.3 kg BMI (Calculated): 26.6 kg/m?? Net IO Since Admission: 7,541.57 mL [11/29/23 1353] Weight history: Wt Readings from Last 12 Encounters: 11/24/23 86.6 kg Weight Change History: No weight change per . No weight history in medical record. Estimated Needs: Total Calorie Needs: 6933-8609 calories/day Method to Estimate Energy Needs: kcal/kg [...] about patient's nutritional care please contact pager [phone] on weekdays 07:30-16:00 or [phone] on weekends/holidays ([facility]). * Naveed Dan P.A.-C. - 11/29/2023 12:01 [...] contact the Special Pulmonary Evaluation Laboratory at [phone] with questions regarding this report. Physician: Luis Neely M.D. [id number] Christopher Arciniega M.D. [id number] DX Chest Portable 1 View Result Date: [...] has since been normalized. - hgb 10.7 (10.2/10.5/) - no further blood products transfused or [...] concerns, please page the Trauma Service at [phone]. Associated attestation - Landen Quinonez M.D. - [...] bed with nonviolent restraints in place and WORK MEASUREMENT ENGINEER was in the room cleaning up. 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 We will continue the current sleep medication plan and taper as able. He was started on tamsulosin for urinary retention. He is still requiring frequent I&O cath. I do wonder if part of this is related to him lying flat in bed and query if encouraging him to get upto the commode would be helpful. RECOMMENDATIONS: General delirium prevention/management strategies: Minimize CARBON CUTTER-acting medications. Increase mobility to match ability. Frequent [...] care was discussed with Dr. Guru Bill [phone]), HIM ent consultant. I personally spent a total of 35 minutes providing and coordinating care today. Thank you for the opportunity to care for this patient. We will continue to follow with you. Pleasepage the Geriatrics Consult Service at [phone] with any questions or concerns. * Mickey [...] please contact the Orthopedic Surgery house resident apron cleaner at [phone] * Farnaz Reece, C.R.T., L.R.T. - 11/29/2023 1:56 AM CDT 11/28/232221 Overnight Oximetry Procedure Overnight Oximetry Set-up Completed Patient placed on Overnight Oximetry at this time. Electronically signed by: Farnaz Reece C.R.T., L.R.T. 11/29/23 1:57 AM CDT * Hayley Durham L.G.S.W., M.S.WTarik - 11/28/2023 5:30 PM CDT SUBJECTIVE Social Work spoke with Nursing regarding patient's ability to communicate. Social Work met with patient at bedside to discuss discharge needs and provide a supportive visit. Patient was cooperative. His ability to answer Social Work questions appropriately waxed and waned. Patient shared he was in the [place] and sustained hearing loss and is compensated [facility]. Patient confirms he does not have insurance and states, I do not believe in that stuff. Patient tells Social Work she can help him by making him a small cake. Patient shares he receives something like $195/month for intermediate. 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 Patient is agreeable to [facility] jail facility and applying for insurance if helpful to facilitate that. He also talksabout some having house payments so he wouldn't take that. Patient shares, I have been serving the [place] my whole life. I've been living for the [place]. He shares that this makes everything better. OBJECTIVE Patient is no longer in restraints. Patient is located on FR. 5C. ASSESSMENT / PLAN ASSESSMENT Social Work talking to patient's about discharge planning is warranted given patient's cognitive state. Patient does not appear to have insurance on file which may complicate discharge to jail facility. PLAN Social Work will call patient's to discuss disposition. Social Work will continue to follow to provide support. Social Work will continue to follow to assist with discharge needs. Aimee Ahuja, M.S.W. 11/28/23 * Tresa Pizarro O.T., STEFANIAR - 11/28/2023 4:13 PM CDT 11/28/23 1613 [...] / PLAN Mr. Grayson is hospitalized on [facility] Trauma for evaluation and management of: Fracture Ilium Closed Initial Left ([facility]) #1 History Of Falling #2 Subarachnoid Hematoma Trauma Without Loss Of Consciousness Subsequent #3 Contusion Scalp Initial #4 Fracture Rib One Open Initial Left #5 Contusion Other Intra Abdominal Organs Initial #6 Anemia Posthemorrhagic Acute (Blood Loss Anemia) #7 Fracture Acetabulum Other Closed Initial Left ([facility]) #8 Fracture Pelvis Multiple Closed With Stable Disruption Pelvis Ring Initial ([facility]) #9 Fracture Ilium Closed Initial Left ([facility]) #10 Encephalopathy Metabolic #11 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 Bill, HIM ent consultant. I personally spent a total of 35 minutes providing and coordinating care today. Thank you for the opportunity to care for this patient. We will continue to follow with you. Pleasepage the Geriatrics Consult Service at [phone] with any questions or concerns. * Naveed [...] seen this morning in his room with WORK MEASUREMENT ENGINEER at bedside. Patient is pleasantly alert and [...] concerns, please page the Trauma Service at [phone]. * Mickey Benton M.D. - 11/28/2023 2:52 [...] 190 - 11/27/23 0711/27/23 07 - 11/27/23 1900 11/27/23 190 - [...] please contact the Orthopedic Surgery house resident apron cleaner at [phone] * Destiney Bundy M.A., O.T., O.T.D., [facility] - 11/27/2023 12:44 PM CDT 11/27/23 1244 Reason Therapy Missed Reason Therapy Missed No visit this date The patient's RN reported patient had slowed oral management of pills and the WORK MEASUREMENT ENGINEER reported the patient had retention of food [...] hemorrhage in the superior left frontal lobe ( / 210, 206, 197). Additional increased hyperdense [...] past 24 hours. Last BM Date: 11/26/23 [place] Stool Chart: Type 7: Watery, no solid [...] when asked if we are in a anabaptist and yes to hospital). 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 Pleasepage the Geriatrics Consult Service at [phone] with any questions or concerns. * Naveed Dan, Sushila. - 11/27/2023 8:31 AM CDT Images from the original note were not included. SUBJECTIVE Mr. Grayson was seen and examined by the Trauma team in his room this morning. Patient is pleasantly confused this morning, in restraints with mitts in place. Patient's WORK MEASUREMENT ENGINEER overnight states that there have been no [...] concerns, please page the Trauma Service at [phone]. * Mickey Benton M.D. - 11/27/2023 6:27 [...] by Drain (mL) 11/25/23 07 - 11/25/23 19011/25/23 190 - 11/26/23 0711/26/23 07 - 11/26/23 1900 [...] please contact the Orthopedic Surgery house resident apron cleaner at [phone] * Rae Coello M.D. - 11/26/2023 12:19 [...] and laying in bed. Last BM Date: (HEALTH SOCIAL WORK PROFESSOR) I have reviewed the current medication list. [...] person but not to place (hotel in [place]) or reason for hospitalization. Able to attend [...] PLAN Mr. Grayson is hospitalized on 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 Pleasepage the Geriatrics Consult Service at [phone] with any questions or concerns. * Naveed [...] % I/O last 3 completed shifts: In: 83449.4 Out: 3846.5 [Urine:1011; Drains:737.5; Blood:2098] Vitals and [...] time. They can be reached at pager #[phone]. For any additional questions or concerns, please page the Trauma Service at [phone]. * Bella Torrez M.D. - 11/26/2023 6:21 [...] room this AM prior to transport to [place]. His pain is well-controlled. He demonstrates an [...] 76 I/O last 3 completed shifts: In: 63294.9 Out: 3709 [Urine:981; Drains:630; Blood:2098] PHYSICAL EXAM [...] Output by Drain (mL) 11/24/23 0701 - 06/06189911/24/231900 - 11/25/23 0711/25/23 07 - 11/25/23 19011/25/231900 - 11/26/23 0621 Closed/Suction Drain 1 Inferior;Midline [...] please contact the Orthopedic Surgery house resident apron cleaner at [phone] * Carlyn Rivas M.B.BTarikS. - 11/26/2023 4:43 [...] massive transfusion protocol was activated and he [id number] pRBC + 2U FFP + 2U Platelets. [...] SBP: 100-150s; MAP: >70 - lactate: 1.6 (6/7) - ECHO: none on file - EKG: [...] % I/O last 3 completed shifts: In: 89144 Out: 3988 [Urine:1690; Drains:200; Blood:8] Vitals and nursing note reviewed. DIAGNOSTICS I [...] Brain Traumatic With Loss Of Consciousness Initial ([facility]) #3 Contusion Scalp Initial - Neurosurgery Chief [...] time. They can be reached at pager #[phone]. For any additional questions or concerns, please page the Trauma Service at [phone]. Associated attestation - Lenora Johnson M.D. - 11/27/2023 1:36 AM CDT I saw and evaluated the patient, participating in the ashraf portions of the service. I reviewed Mr. Dan's note. I agree with his findings and plan. [facility] TRAUMA TRACTOR MECHANIC HELPER NOTE SUBJECTIVE Mr. Grayson is an 83 [...] davol drains Output by Drain (mL) 11/23/23 0701 - 11/23/23 1900 11/23/23 190 - 11/24/23 0700 11/24/23 0701 - 11/24/23 1900 11/24/23 190 - 11/25/23 0700 11/25/23 0701 - 11/25/23 1426 Requested LDAs do not [...] please contact the Orthopedic Surgery house resident apron cleaner at [phone] Nura Bentno M.D. (PGY-3) * Zia Lundberg Pharm.D., R.Ph. [...] Consultations: None Emily Lundberg, Pharm.D., R.Ph. Pager [phone] * Barry Fitzpatrick P.Gurjit.-Barbara., M.S. 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 Grayson: Personal interests/hobbies: Fixing things Relationships/supports: in anabaptist Mentation: Baseline cognition: Independent of ADLs and [...] issues: BPH, cataracts, glaucoma Anticipated disposition plan: Longterm Facility RECOMMENDATIONS: 1. Initiate ramelteon and suvorexant [...] care was discussed with Dr. Rae Coello ([phone]), HIM ent consultant. I personally spent a total 25 minutes in counseling and coordination of care as documented above. Thank you for the opportunity to care for this patient. We will continue to follow with you. Pleasepage the Geriatrics Consult Service at [phone]. * Carlyn Rivas M.B.B.S. - 11/25/2023 5:08 [...] NC - CXR: AM CXR pending. - sadia Thorne p.r.nTarik - Rib fracture numbers: NIF -60, VC [...] Findings discussed with Bereket Snider M.D. (pager #[phone]) on 11/23/2023 at 1:[address] Abdomen [...] time. They can be reached at pager #[phone]. For any additional questions or concerns, please page the Trauma Service at [phone]. * Dorian Ferrara M.D., Ph.D. - 11/24/2023 [...] starting QTP and will allow some PRNs (AL route as spitting out meds) CV: VSS [...] Dosing Protocols and Consultations: None Emily Lundberg Pharm.D., R.Ph. Pager [phone] * Francisco Staley M.D. - 11/24/2023 6:35 [...] dementia, thus non- operative management. Admitted to [facility] ICU given other injuries (acetabular and gluteal [...] to name and year; reports being in [facility] Vision grossly intact. EOMI. Normal V1-V3 sensation. [...] cares per ICU team Chief C service, [phone] Montez Tellez M.D., Ph.D. * Shay Lee [...] MDIV - 11/23/2023 2:00 PM CDT [facility] Spiritual Care Progress Note Patient: Carlos Alberto Grayson Age:83 y.o. Location: [id number] Reason(s) for encounter: Spiritual Care contact to introduce spiritual care service and assess for potential spiritual care needs. Summary: I was able to meet with Carlos Alberto Grayson and his for prayer. I provided a brief prayer. His said their wound treatment rn and wound treatment rn's are also here and that they have good support. Spiritual Needs and/or Concerns: Maureens is worried for his prognosis. Spiritual Care interventions: Introduced the role as member of the interdisciplinary care team and assessed spiritual care needs/concerns of patient and/or family Therapeutic and supportive listening was provided with the aim of allowing patient/family expression of emotions, hopes and worries regarding current medical condition and life stage. Facilitated christian/spiritual practices (prayer, blessing, sacred texts, christian item) with theaim to reinforce patient's spiritual [...] requested. Chaplains can be contacted by paging [phone] ([place]) or [phone] ([place]). * Eunice Huston, SybilI.C.S.W., M.S.W. - 11/23/2023 1:13 PM CDT SUBJECTIVE Emergency Department social worker school is present at the R1 resuscitation bay in the context of an Adult Level Red Trauma activation. Per EMS: Patient fell at home. EMS reports patient's will be coming from home. EMS reports patient's expresses concern patient may be showing signs of Dementia. EMS reports patient is alertand oriented to himself, which reportedly says is his baseline currently. OBJECTIVE Emergency Department social worker school presents to the resuscitation bay in the context of an Adult Level Red Trauma. Patient was brought by [facility] ambulance. Checked in with the treatment team regarding this patient. ASSESSMENT / PLAN ASSESSMENT Patient appears to be awake and alert. Patient is currently protecting their own airway. A full psychosocial assessment was not completed due to the nature of the medical evaluation. PLAN Please contact social work should any needs arise. Marian Álvarez M.S.W. 11/23/2023 documented in this encounter H&P [...] deterioration of the following conditions: shock trauma CARBON CUTTER failure or compromise hemorrhage Critical care was [...] 9:00 AM CDTAssociated Order(s): IP CONSULT TO STOCK CONTROL SUPERVISOR LITERACY EDUCATION PROFESSOR [facility] Spiritual Care Progress Note Patient: Carlos Alberto Grayson Age:83 y.o. Location: [address] Reason(s) for encounter: Responded to Spiritual [...] and alright duringhis time in the hospital. Monitoring Manager provided the following interventions: Meaning/Charis Exploration Therapeutic Listening Spiritual Assessment Latter Day Identification / Spiritual Practices: Carlos Alberto is a Evangelical Anabaptism Spiritual Care outcomes: Patient/family was appreciative of spiritual care support. Spiritual Care Plan / Recommendations: Will remain available for spiritual care as needed or requested. Chaplains can be contacted by paging [phone] ([place]) or [phone] ([place]). * Izabela Bundy APRN, C.N.P., D.N.P. - 12/13/2023 2:38 PM CDTAssociated [...] 1:30 PM CDTAssociated Order(s): IP CONSULT TO STOCK CONTROL SUPERVISOR LITERACY EDUCATION PROFESSOR [facility] Spiritual Care Consult Note Patient: Carlos Alberto Grayson Age:83 y.o. Location: [id number] Reason(s) for encounter: Responded to Spiritual Care Consult. Summary: I was able to meet with Carlos Alberto Grayson and prayed with him today. He also prayed for his leg. Spiritual Care Plan / Recommendations: Will remain available for spiritual care as needed or requested. Chaplains can be contacted by paging [phone] ([place]) or [phone] ([place]). * Isa Cedillo - 12/01/2023 9:12 PM CDTAssociated Order(s): IP CONSULT TO STOCK CONTROL SUPERVISOR LITERACY EDUCATION PROFESSOR [facility] Spiritual Care Consult Note Patient: Carlos Albreto Grayson Age:83 y.o. Location: [id number] Reason(s) for encounter: Responded to Spiritual Care [...] requested. Chaplains can be contacted by paging [phone] ([place]) or [phone] ([place]). * Josef Peraza M.D., M.E. - 11/29/2023 12:28 PM CDTAssociated Order(s): IP CONSULT TO NEUROLOGY NEUROLOGY CONSULT NOTE SUBJECTIVE Reason for consult: Recommendations regarding serial punctate hemorrhage increase Primary Team: [facility] Trauma Neurology Supervising Fire Safety Inspector: Dr. Ramez Vazquez HISTORY OF PRESENT ILLNESS: [...] CAA. Patient seen and discussed with our ent consultant Dr. Ramez Vazquez. We appreciate the consult. Please page [phone] with any questions regarding our recommendations. Josef [...] Retired Leisure Interests: Pt reports he enjoys [employer] hunting. Prior Mobility/Functional Transfers Level of [place]: Independent Home Living Type of Home: House [...] Total Treatment Time (min): 24 min Raegan Drew, P.T., D.P.T. * Rebecca Diana O.T., O.T.D. [...] Retired Leisure Interests: Pt reports he enjoys [employer]. Prior Mobility/Functional Transfers Level of [place]: Independent Home Living Type of Home: House [...] Diana O.T., O.T.Demetrius * Destiney Bundy M.A., Juan.Hugh Tony, SCFES - 11/26/2023 12:12 PM CDT Occupational Therapy [...] at end of session with RN and WORK MEASUREMENT ENGINEER present, needs met and questions answered. Assessment [...] 7:00am to 4:00pm: Our service pager at [facility]: #[phone] Our service pager at [place]: #[phone] * Alyson Bueno L.G.S.W., M.S.W. - 11/25/2023 11:02 AM CDT Psychosocial Assessment SUBJECTIVE Assessment Information Referral Source: CM/SW Referral Referral Reason: Psychosocial assessment, Coping, adjustment and support Primary Language: Stateless Hide House Supervisor Services Used: No Sexuality/Pronoun: / Person(s) present [...] on the ladder. Patient is currently on [facility] Trauma Critical Care and General Surgery service on MB 7B for fracture ilium closed initial left. Social History Early Growth and Development: The patient met social and developmental milestones as expected. Citizenship: [place] 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 Ramon expressed understanding and was agreeable to the visit. For the purpose of this assessment, Ramon appears to be a reliable historian. Ramon shares they heard the patient calling for help and witnessed them laying on the ground next to their large ladder. Patient claims they were not climbing on the ladder. Patient is currently on [facility] Trauma Critical Care and General Surgery [...] alcohol use, or drug use. Patient enjoys Anabaptism music and the Bible. Ramon shares from previous RN experience working a memory care, the patient's memory issues have declined over the past several months. Ramon expressed concerns the patient may have stage 2 or 3 dementia at this time and would like [place] to provide a formal dementia diagnosis. Social [...] Mr. 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 He lives with his in [facility]; she is a retired nurse. [...] consciousness. He was emergently brought to the [facility] where he had a trauma evaluation. 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 Trauma and General Surgery General (e.g. 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 Grayson is an 83-year-old [...] help him using the computer, logging into [employer], e-mail and he often forgets why he [...] PLAN Mr. Grayson is hospitalized on [facility] Trauma and General Surgery for evaluation [...] Ilium Closed Initial Left (HCC) Carlos Alberto Grasyon is a 83 y.o. with medical history of BPH, cataracts, macular degeneration who presented with fall from ladder.. What Matters Most to Mr. Grayson: Personal interests/hobbies: Fixing things Relationships/supports: in anabaptist Mentation: Baseline cognition: Independent of ADLs and [...] issues: BPH, cataracts, glaucoma Anticipated disposition plan: Longterm Facility RECOMMENDATIONS: 1. Initiate ramelteon and suvorexant [...] care was discussed with Dr. Rae Coello ([phone]), HIM ent consultant. I personally spent a total 80 minutes in counseling and coordination of care as documented above. Thank you for the opportunity to care for this patient. We will continue to follow with you. Pleasepage the Geriatrics Consult Service at [phone]. * Umm Schmidt M.D. - 11/23/2023 7:15 [...] 6 ft ladder Anticoagulation Status: None Supervising ent consultant: Dr. Johnson, [facility] trauma ent consultant. PREHOSPITAL INFORMATION Time of injury: 1115 [...] & Screen Expiration 11/26/2023 23:59 Testing Location [facility] Troponin T, Baseline with 2 Hour/6 Hour [...] Findings discussed with Bereket Snider M.D. (pager #[phone]) on 11/23/2023 at 1:[address] Abdomen [...] #7 Fracture Acetabulum Other Closed Initial Left ([facility]) #8 Fracture Pelvis Multiple Closed With Stable Disruption Pelvis Ring Initial ([facility]) #9 Fracture Ilium Closed Initial Left (HCC) Carlos Alberto Grayson is a 83 y.o. male who presents to the [facility] Trauma Resuscitation [place] status post fall from a ladder. Patient [...] examined with Dr. Jasso, [facility] trauma ent consultant, who was in agreement with the above plan and assessment. Please page the trauma service at [phone] with any questions or concerns. Edmar Love M.D., Ph.D. General Surgery 11/23/23 2:54 PM CDT Associated attestation - Lenora Johnson M.D. - 11/23/2023 9:01 PM CDT I saw and evaluated the patient, participating in the ashraf portions of the service. I reviewed Dr. Love's note. I agree with his findings and plan. [facility] TRACTOR MECHANIC HELPER NOTE SUBJECTIVE Mr. Grayson is an 83-year-old male patient who fell off a 6 ft ladder at approximately 11:15 a.m..The patient's spouse found the patient lying down calling out for help. Notably, the patient's spouse reports a suspicion that the patient has been demonstrating some signs of dementia recently. The patient had signs of injury to his left rastafarian and complained of severe left hip pain. [...] Orthopedic Surgery consult (hospital) Referring Provider: Bereket Snider M.D. - Emergency department, resuscitation [place] Chief Complaint -or- Reason for Consult Left [...] a level red 3 to the resuscitation [place] in the [facility] Emergency Department. Orthopedic surgery was consulted [...] evaluated the patient expeditiously in the resuscitation [place] after being made aware of his acetabular [...] he is fasting as he is developed christian man Anticoagulation: No Diabetes: No Tobacco use: [...] Findings discussed with Bereket Snider M.D. (pager #[phone]) on 11/23/2023 at 1:[address] Abdomen [...] supervisory note of the OTS Chief Resident apron cleaner for final recommendations. Please contact OTS-1 (Kalen) at [phone] with any questions or concerns regarding this patient. If outside of 06:00 - 18:00 on weekdays or any time on the weekend, please contact the [facility] Orthopedic Surgery house resident apron cleaner at [phone] (This note was created with the use of [employer] Direct voice recognition software. While this note [...] no known medical history who presents to [facility] via EMS followinga suspected [...] GCS: 14 (E4 V4 M6) - General: LAC COURTE OREILLES, alert, supine in bed; at bedside, C [...] touch throughout - Coordination: No dysmetria on vnaoaw-ic-tuxx testing. Results from last 7 days Lab [...] report he is currently fasting due to christian reasons and unsure if that can be related to the incident today. She noted a left scalp hematoma and he endorsed pain to his left hip and was unable to get up so she called for EMS. He was brought to the [facility] ED as a level [...] been discussed with the chief neurosurgery resident apron cleaner, Dr. Schmidt. Please look to her forthcoming supervisory note in the next 12-24 hours. For any questions or concerns regardingthe neurosurgical plan of care for this patient, please page the Neurosurgery Chief C Service Pager, [phone]. Times: Consult placed: 13:26 (while in scanner) [...] remain safe in chair or bed with WORK MEASUREMENT ENGINEER sitting at the bedside to monitor patient. [...] in restraint Outcome: Progressing * Velvet Arias RRoberto. - 12/10/2023 7:33 PM CDT Problem: SAFETY [...] with foam repositioning wedges. * Jo Sotelo R.N. - 12/10/2023 2:42 PM CDT Shift Goals: [...] was able to get outside with the WORK MEASUREMENT ENGINEER. Patient remained safe during this shift. Problem: [...] has been awake for much of the credit administration officer. Pleasantly confused. Last evening mentioned seeing 2 frogs in his room (actually trash on his floor and an electrical box on the wall) but no other hallucinations present since. Drain and vac DC'd by sx last evening. Continues to require I&O cathing. Pleasant and cooperative. * Rogelio Arriola R.N. - 12/04/2023 8:05 AM CDT Accounting Machine Mechanic was paged for staff assist in pt [...] found comfort reading the Bible with the WORK MEASUREMENT ENGINEER. Pain waswell controlled with sched medications. Pt [...] been restrained since 11/27 0700. * Nancy Layne, R.R.T. - 11/27/2023 10:40 AM CDT Patient [...] 26 BASE EXC ART 2 Nancy Layne RTarikR.T. 11/27/23 10:40 AM CDT * Rommel Huber [...] ART 26 BASE EXC ART 2 Shantanu ManjarrezRVidhya, L.R.T. 11/27/23 6:06 AM CDT * Nancy [...] 11/26/23 1:24 PM CDT * Kandy Mann LTarikRVidhya, PHARMACY TECHNICIAN PER [facility] - 11/25/2023 5:24 PM CDT Patient is [...] BASE EXC ART -4 L Lawrence Hurtado, PHARMACY TECHNICIAN PER DIEM-[facility] 11/25/23 5:24 PM CDT * Umm Carbone R.R.T., L.R.T. - 11/24/2023 8:26 PM CDT Patient [...] the last 24 hours. * Bereket Pike R.RTarikTTarik, L.R.T. - 11/24/2023 6:12 PM CDT Patient [...] Ilium Closed Initial Left (HCC) Shift Summary: 1999: Patient assessed this pm and is resting [...] 6:27 PM CDT * Bereket Pike R.R.T., L.R.T. - 11/23/2023 6:25 PM CDT Patient is [...] bearing. Please contact OTS 1 team at [phone] with any questions regarding the Orthopedic management of this patient. * Flavia Brown R.R.T., SybilR.TTarik - 11/23/2023 1:12 PM CDT RT present [...] Diagnosis Fracture Acetabulum Closed Initial Left (HCC) Sap Plant Maintenance Consultant A construction assistant actively participated and was necessary for [...] including history, physical exam, orders, and plan. Lianet with the note of the resident. 83-year-old [...] radiology embolization. Will plan to admit to [address] [place] [address] ICU on trauma surgery team. Final Diagnoses: [...] Conscious Initial (HCC) Other Shock (Hemorrhagic Shock) ([facility]) Bereket Snider M.D. Resident 11/23/231707 documented in this encounter Miscellaneous Notes * Hospital Course - Rody Arriaga, LOC, C.N.P., D.N.P. - 11/23/2023 5:56 PM CDT #1 Status post Fall 6 feet from Ladder Mr. Grayson was transported to [facility] as a level red trauma for [...] touchdown weight-bearing to the left lower extremity. [place] were removed at surgical site on 12/15. [...] discharge home with home health care services (jail, health aide, PT/OT). Services, equipment, and adaptations [...] CDT Appointment Department of Laboratory Medicine in [address] [phone] Rody Arriaga APRN, C.N.P., D.N.P. [address] [place] [address] 02/06/2024 10:30 AM CDT Comprehensive Visit Department of Urology in [place], [place] [address] [place] [address] Rogelio Díaz M.D. [address] [address] 02/13/2024 2:45 PM CDT Clinical Communication Virtual Review in [place], [place] [address] [place] [address] 02/17/2024 12:00 PM CDT Appointment Department of Radiology, [facility] in [address] [phone] Sera Avila P.A.-C., M.S. [address] [place] [phone] 02/17/2024 12:30 PM CDT Office Visit Department of Orthopedic Surgery in [address] [phone] Naveed Higuera M.D. [address] [place] [phone] Pending Results Name Type Priority Associated Diagnoses [...] Acetabulum Closed Initial Left (HCC) Special Needs Supine.Odysii pelvis set.Shanz pins. PATIENT STATUS Timed 11/25/2023 [...] Anatomical Region Laterality Modality Head, Neuroradiology [facility] , Neuroradiology [facility], [facility]adiology [facility] N/A Computed Tomography, Compute d Tomography [...] APRN, C.N.P., M.S.N. L AB BLOOD ADD-ON [facility] [address] [place] [address], [facility] [address] [place] [address] * US Lower Extremity Veins Left (12/19/2023 [...] and management can be found on the [employer] site. Link https://Brandfolder[employer]org/topic/clinical-answers/cnt-28540504/cpm-204 30432 Procedure Note Rommel Granados M.D. - 12/19/2023 [...] thrombosis and management can be found on theCasabi site. Linkhttps://[employer]folder[employer]org/topic/clinical-answers/cnt-88505061/cpm -2049 1725 IMPRESSION: Stable venous ultrasound exam of the left lower extremity. No significantchange in the short segment acute DVT in the left soleal vein comparedultrasound 12/12/2023. Garland Meyer P.A.-C. [facility] US PROCEDURES * (ABNORMAL) Basic Metabolic Panel [...] APRN, C.N.P., M.S.N. LA Cipriano BLOOD ADD-ON [facility] [address] [place] [address], [facility] DTL [facility] [address] [place] [address] * CT Head without IV Contrast (12/12/2023 [...] calvarial fractures. Procedure Note Jose Miguel Alonzo M.B.BTarikS., M.MED. - 12/12/2023 EXAM: CT HEAD WITHOUT [...] ventricle. 2. No acute intracranial findings. Cristal RANDHAWA CT PROCEDUR ES * US Lower Extremity [...] and management can be found on the [employer] site. Link https://Integrated Micro-Chromatography Systemsert.[facility].org/topic/clinical-answers/cnt-77486479/cpm-204 52885 Procedure Note Carol Bailey M.D. - 12/12/2023 [...] management can be found on theAskMayoExpert site. Linkhttps://[facility] rural health networkyoexpert.[facility].org/topic/clinical-answers/cnt-78120890/cpm -2049 1725 IMPRESSION: Positive for acute DVT. [...] M.D. LAB BLOOD ADD-ON Performing Organization Address City/State/[facility] Co de Phone Number [facility] [address] [place] [address], [facility] DTL [facility] [address] [place] [address] * Magnesium (12/09/2023 9:10 PM CDT) Magnesium, S 2.1 1.7 - 2.3 mg/dL 12/09/2023 10:09 PM CDT DTL Blood (Blood, Venous) 12/09/2023 9:10 PM CDT 12/09/2023 9:53 PM CDT Barb Davies M.D. LAB BLOOD ADD-ON [facility] [address] [place] [address], [facility] [address] [place] [address] * (ABNORMAL) Basic Metabolic Panel (12/09/2023 9:10 PM CDT) Pathologist [facility] Potassium, S 5.1 3.6 - 5.2 mmol/L [...] CDT Barb Davies M.D. LAB BLOOD ADD-ON [facility] [address] [place] [address], [facility] DTL [facility] [address] [place] [address] * (ABNORMAL) Basic Metabolic Panel (12/06/2023 9:06 [...] Mancilla APRN, C.N.P., D.N.P. LAB BLOOD ADD-ON [facility] [address] [place] [address], [place] [facility] [address] [place] [address] * DX Chest Portable 1 View (12/06/2023 [...] Metabolic Panel (12/05/2023 8:57 PM CDT) Pathologist [facility] Potassium, S 4.9 3.6 - 5.2 mmol/L [...] LAB B LOOD ADD-ON Performing Organization Address City/[facility]/ZIP Co de Phone Number [facility] [address] [place] [address], [facility] DTL [facility] [address] [place] [address] * (ABNORMAL) CBC without Differential (12/05/2023 8:57 PM CDT) Pathologist [facility] Hemoglobin 10.4(L) 13.2 - 16.6 g/dL 12/05/2023 [...] LAB B LOOD ADD-ON Performing Organization Address City/[facility]/ZIP Co de Phone Number [facility] [address] [place] [address], [place] DTL [address] [address] * US Lower Extremity Veins Bilateral (12/05/2023 [...] and management can be found on the [employer] site. Link https://Integrated Micro-Chromatography Systemsert.[facility].org/topic/clinical-answers/cnt-68678385/cpm-204 51822 Procedure Note Barry Bennett M.D., M.S. - [...] thrombosis and management can be found on theAskResearch & InnovationExpert site. Linkhttps://askmayoexpert.[facility].org/topic/clinical-answers/cnt-12900664/cpm -2049 1725 IMPRESSION: Unchanged acute DVT in [...] APRN, C.N.P., D.N.P. LAB B LOOD ADD-ON [facility] [address] [place] [address], [facility] [address] [place] [address] * (ABNORMAL) CBC with Differential, Blood (12/02/2023 [...] APRN, C.N.P., D.N.P. LAB B LOOD ADD-ON [facility] [address] [place] [address], [facility] DTL [facility] [address] [place] [address] [facility] [address] [place] [address] * DX Abdomen 1 View (12/02/2023 5:41 [...] Naveed Dan P.A.-C. LAB BLOOD ADD- ON [address] [address], [facility] [address] [place] [address] * (ABNORMAL) CBC without Differential (12/01/2023 7:09 [...] Naveed Dan P.A.-C. LAB BLOOD ADD- ON [facility] [address] [place] [address], [facility] [address] [place] [address] * DX Abdomen 1 View (11/30/2023 5:45 [...] lateralventricle. No new hemorrhage. Naveed Dan P.A.-C. [facility] CT PROCEDU RES * (ABNORMAL) Basic Metabolic [...] Naveed Dan P.A.-C. LAB BLOOD ADD- ON [facility] [address] [place] [address], [facility] [address] [place] [address] * (ABNORMAL) CBC without Differential (11/29/2023 9:20 PM CDT) Pathologist [facility] Hemoglobin 10.4(L) 13.2 - 16.6 g/dL 11/29/2023 [...] Naveed Dan P.A.-C. LAB BLOOD ADD- ON [facility] [address] [place] [address], [place] DTL [facility] [address] [place] [address] * DX Abdomen Portable Anterior Posterior 1 [...] Overnight (11/29/2023 7:52 AM CDT) 11/28/2023 Impressions ELMORA ESE CORDOVA - 11/29/2023 1:47 PM CDT [...] current supplemental oxygen. Physician: Hema Owens M.D. [id number] Narrative Procedure Note Hema Owens M.D. - [...] thecurrent supplemental oxygen. Physician: Hema Owens M.D. [id number] Josee Rose M.D. [facility]ENTER ORDERAB LES [facility] EAP * CT Head without IV Contrast [...] Naveed Dan P.A.-C. LAB BLOOD ADD- ON [facility] [address] [place] [address], [place] DTL [facility] [address] [place] [address] * (ABNORMAL) CBC without Differential (11/29/2023 7:01 AM CDT) [facility] Hemoglobin 10.7(L) 13.2 - 16.6 g/dL [...] Naveed Dan P.A.-C. LAB BLOOD ADD- ON [facility] [address] [address], [facility] [address] [address] * DX Chest Portable 1 View (11/29/2023 [...] M.D. LAB BLOOD TROPONIN Performing Organization Address City/[facility]/ZIP Co de Phone Number [facility] [address] [place] [address], [facility] STMA [facility] [address] [place] [address] * Phosphorus Inorganic (11/28/2023 9:01 PM CDT) Pathologist [facility] Phosphorus (Inorganic), S 2.5 2.5 - 4.5 mg/dL 11/28/2023 10:02 PM CDT DTL Blood (Blood, Venous) 11/28/2023 9:01 PM CDT 11/28/2023 9:49 PM CDT Barb Davies M.D. LAB BLOOD ADD-ON [facility] [address] [place] [address], [facility] DTL [facility] [address] [place] [address] * Magnesium (11/28/2023 9:01 PM CDT) Magnesium, S 2.1 1.7 - 2.3 mg/dL 11/28/2023 10:02 PM CDT DTL Blood (Blood, Venous) 11/28/2023 9:01 PM CDT 11/28/2023 9:49 PM CDT Barb Davies M.D. LAB BLOOD ADD-ON [facility] [address] [place] [address], [facility] [address] [place] [address] * (ABNORMAL) Basic Metabolic Panel (11/28/2023 9:01 [...] M.D. LAB BLOOD ADD-ON Performing Organization Address City/[facility]/ZIP Co de Phone Number [facility] [address] [place] [address] * (ABNORMAL) Troponin T, Baseline with 2 Hour/6 Hour Reflex Biomarker Panel (11/28/2023 9:01 PM CDT) Pathologist [facility] Troponin T, Baseline, 5th gen 31(H) <=15 ng/L 11/28/2023 9:26 PM CDT [facility] Blood (Blood, Venous) 11/28/2023 9:01 PM CDT 11/28/2023 9:06 PM CDT Barb Davies M.D. LAB BLOOD TROPONIN Performing Organization Address [facility] Co de Phone Number [facility] [address] [place] [address] * ECG 12 Lead (11/28/2023 8:57 PM CDT) Pathologist [facility] Ventricular Rate ECG/Min 88 BPM MUSE AL Interval 136 ms MUSE QRSD Interval 86 ms MUSE QT Interval 384 ms MUSE QTC Interval 464 ms MUSE P [place] 33 degrees MUSE R [place] 7 degrees MUSE T Wave [place] 10 degrees MUSE 11/28/2023 8:57 PM CDT [...] and management can be found on the [employer] site. Link https://askTCAS Onlineyoexpert.[facility].org/topic/clinical-answers/cnt-42040164/cpm-204 78544 Findings discussed via telephone with Naveed Dan PA-C ([id number]) at 15:44 on 11/28/2023. Procedure Note Delbert [...] thrombosis and management can be found on theAskConstant Therapyert site. Linkhttps://askmayoexpert.[facility]/topic/clinical-answers/cnt-79973699/cpm -2049 1725 Findings discussed via telephone with Naveed Dan PA-C ([id number]) at15:44 on 11/28/2023. IMPRESSION: Positive for acute DVT in the left lower extremity involving the solealvein. Naveed Dan P.A.-C. IMG US PROCEDU RES * (ABNORMAL) Basic Metabolic Panel (11/28/2023 7:41 AM CDT) [facility] Potassium, S 3.9 3.6 - 5.2 [...] Naveed Dan P.A.-C. LAB BLOOD ADD- ON [facility] [place] [address], [facility] [place] [address] * (ABNORMAL) CBC without Differential (11/28/2023 7:41 [...] LAB BLOOD ADD- ON Performing Organization Address [facility] Co de Phone Number [facility] [address] [place] [address], [facility] DTL [facility] [address] [place] [address] * ECG 12 Lead (11/28/2023 4:04 AM CDT) Ventricular Rate ECG/Min 59 BPM MUSE AL Interval 126 ms MUSE QRSD Interval 88 ms MUSE QT Interval 436 ms MUSE QTC Interval 431 ms MUSE P [place] 46 degrees MUSE R [place] 45 degrees MUSE T Wave [place] 23 degrees MUSE 11/28/2023 4:04 AM CDT [...] Rose M.D. ECG ORDERABLES Performing Organization Address [facility] Co de Phone Number MUSE NA * Phosphorus Inorganic (11/27/2023 6:37 PM CDT) Phosphorus (Inorganic), S 2.8 2.5 - 4.5 mg/dL 11/27/2023 7:49 PM CDT DTL Blood (Blood, Venous) 11/27/2023 6:37 PM CDT 11/27/2023 7:19 PM CDT Serafin Ford M.D. LAB BLOOD ADD-ON [facility] [address] [place] [address], [facility] DTL [facility] [address] [place] [address] * (ABNORMAL) Basic Metabolic Panel (11/27/2023 6:37 PM CDT) [facility] Potassium, P 3.9 3.6 - 5.2 [...] CDT Serafin Ford M.D. LAB BLOOD ADD-ON [facility] [address] [place] [address], [place] STMA [facility] [address] [place] [address] * DX Chest Portable 1 View (11/27/2023 [...] M.D. LAB BLOOD ADD-ON Performing Organization Address City/[facility]/ZIP Co de Phone Number [facility] [address] [place], [place] [address] [place] [address] * (ABNORMAL) Calcium, Ionized (11/27/2023 6:13 AM CDT) Pathologist [facility] Calcium, Ionized, S 4.41(L) 4.57 - 5.43 mg/dL 11/27/2023 7:12 AM CDT DT Comment: ----ADDITIONAL INFORMATION---- This test has been modified from the sports attorney's instructions. Its performance characteristics were determined by [facility] in a manner consistent with CLIA requirements. This test has not been cleared or approved by the U.S. Food and Drug Administration. pH for Ionized Calcium 7.46 7.35 - 7.48 11/27/2023 7:12 AM CDT DT Blood (Blood, Venous) 11/27/2023 6:13 AM CDT 11/27/2023 6:53 AM CDT Barbara Pelayo APRN.N.P., D.N.P. LAB BLOOD NON ADD-ON Performing Organization Address City/[facility]/ZIP Co de Phone Number [facility] [address] [place] [address], [address] [address] * (ABNORMAL) CBC without Differential (11/27/2023 6:13 AM CDT) Pathologist [facility] Hemoglobin 10.5(L) 13.2 - 16.6 g/dL 11/27/2023 [...] CDT Serafin Ford M.D. LAB BLOOD ADD-ON [address] [address], [facility] [address] [address] * (ABNORMAL) Basic Metabolic Panel (11/27/2023 6:13 AM CDT) Pathologist [facility] Potassium, S 4.4 3.6 - 5.2 mmol/L [...] M.D. LAB BLOOD ADD-ON Performing Organization Address City/[facility]/[place] [address] * (ABNORMAL) Magnesium (11/27/2023 6:13 AM CDT) Magnesium, S 2.4(H) 1.7 - 2.3 mg/dL 11/27/2023 7:14 AM CDT DTL Blood (Blood, Venous) 11/27/2023 6:13 AM CDT 11/27/2023 6:53 AM CDT Serafin Ford M.D. [place] [address] * (ABNORMAL) Phosphorus Inorganic (11/27/2023 6:13 AM CDT) Phosphorus (Inorganic), S 1.4(L) 2.5 - 4.5 mg/dL 11/27/2023 7:14 AM CDT DTL Blood (Blood, Venous) 11/27/2023 6:13 AM CDT 11/27/2023 6:53 AM CDT Serafin Ford M.D. LAB BLOOD ADD-ON [facility] [address] [place] [address], [facility] [address] [place] [address] * (ABNORMAL) Basic Metabolic Panel (11/26/2023 5:29 [...] D.N.P. LAB BLOOD ADD-ON Performing Organization Address City/[facility] Co de Phone Number [facility] [address] [place] [address] * Patient Status (11/26/2023 5:28 PM CDT) O2 Flow 6.0 L/min 11/26/2023 5:32 PM CDT STMA Device NC 11/26/2023 5:32 PM CDT STMA Spont. breaths/min 18 11/26/2023 5:32 PM CDT STMA Blood 11/26/2023 5:28 PM CDT 11/26/2023 5:32 PM CDT Charlotte Gurjit Tracy Ordaz APRNN.P., D.N.P. LAB BLOOD NON ADD-ON Performing Organization Address City/[facility] Co de Phone Number [facility] [address] [place], [place] [address] [place] [address] [address] [place] [address] * (ABNORMAL) Blood Gas with Coox, Arterial [...] APRN, C.N.P., D.N.P. LAB BLOOD NON ADD-ON [facility] [address] [place] [address], [facility] [address] [place] [address] * DX Chest Portable 1 View (11/26/2023 [...] CDT Serafin Ford M.D. LAB BLOOD ADD-ON [facility] [address] [place] [address], [facility] [address] [place] [address] * pH (11/26/2023 11:21 AM CDT) pH 7.45 7.35 - 7.45 pH 11/26/2023 11:27 AM CDT ST[facility] Blood 11/26/2023 11:2 1 AM CDT 11/26/2023 11:26 AM CDT Tracy Pelayo APRNN.P., D.N.P. LAB HISTORICAL ORDERS Performing Organization Address [facility] Co de Phone Number [facility] [address] [place] [address], [facility] [address] [place] [address] * (ABNORMAL) Calcium, Ionized (11/26/2023 11:21 AM CDT) Calcium, Ionized, B 4.56(L) 4.65 - 5.30 mg/dL 11/26/2023 11:29 AM CDT [facility] Blood (Blood, Venous) 11/26/2023 11:21 AM CDT 11/26/2023 11:26 AM CDT Tracy Pelayo APRNN.P., D.N.P. LAB BLOOD NON ADD-ON Performing Organization Address City/[facility] Co de Phone Number [facility] [address] [place] [address], [facility] [address] [place] [address] * ECG 12 Lead (11/26/2023 8:06 AM CDT) Ventricular Rate ECG/Min 79 BPM MUSE AL Interval 134 ms MUSE QRSD Interval 94 ms MUSE QT Interval 380 ms MUSE QTC Interval 435 ms MUSE P [place] 37 degrees MUSE R [place] 15 degrees MUSE T Wave [place] 18 degrees MUSE 11/26/2023 8:06 AM CDT [...] LAB BLOOD NON ADD-ON Performing Organization Address City/[facility] Co de Phone Number [facility] [address] [place] [address], [facility] [address] [place] [address] * (ABNORMAL) Blood Gas with Coox, Arterial [...] LAB BLOOD NON ADD-ON Performing Organization Address City/[facility]/ZIP Co de Phone Number [facility] [address] STMA [facility] [address] [place] [address] * (ABNORMAL) Magnesium (11/26/2023 7:48 AM CDT) Pathologist [facility] Magnesium, S 1.6(L) 1.7 - 2.3 mg/dL 11/26/2023 11:13 AM CDT DTL Blood (Blood, Venous) 11/26/2023 7:48 AM CDT 11/26/2023 8:20 AM CDT Shay Lee M.D. LAB BLOOD ADD-ON [facility] [address] [place] [address] * (ABNORMAL) CK (Creatine Kinase) (11/26/2023 7:48 AM CDT) Creatine Kinase (CK), S 1733(H) 39 - 308 U/L 11/26/2023 11:13 AM CDT DTL Blood (Blood, Venous) 11/26/2023 7:48 AM CDT 11/26/2023 8:20 AM CDT Hilda Russ Tere MONTERROSO C.N.P., M.S.NTarik HERNANDEZ BLOOD ADD-ON [facility] [address] [place] [address], [facility] DTL [facility] [address] [place] [address] * (ABNORMAL) Basic Metabolic Panel (11/26/2023 7:48 [...] Tere MONTERROSO C.N.P., M.S.NTarik HERNANDEZ BLOOD ADD-ON [facility] [address] [place] [address], [facility] DTL [facility] [address] [place] [address] * (ABNORMAL) CBC without Differential (11/26/2023 7:48 [...] Tere MONTERROSO C.N.P., M.S.NTarik HERNANDEZ BLOOD ADD-ON [facility] [address] [place] [address], [facility] DTL [facility] [address] [place] [address] * Thromboelastograph, Kaolin, Blood (11/26/2023 7:45 AM [...] APRN C.N.P., D.N.P. [place] [address], [place] [address] * Transfuse Fresh Frozen Plasma :Bleeding with [...] - 317 x10(9)/L 11/26/2023 1:03 AM CDT [facility] Comment:Results confirmed by smear, no clumping or interference seen. Leukocytes 8.6 3.4 - 9.6 x10(9)/L 11/26/2023 1:03 AM CDT [facility] Blood (Blood, Venous) 11/25/2023 11:29 PM CDT 11/25/2023 11:33 PM CDT Shay Lee M.D. LAB BLOOD ADD-ON [facility] [address] [place] [address], [facility] [address] [place] [address] [facility] [address] [place] [address] * Transfuse Emergency Released Red Blood Cells [...] Shay Lee M.D. LAB BLOOD NON ADD-ON [facility] [address] [place] [address], [facility] [address] [place] [address] * (ABNORMAL) Blood Gas with Coox, Arterial [...] Site Art Line 11/25/2023 10:01 PM CDT [facility] Comment:Maximilian's test not don e. Blood (Blood, Arterial) 11/25/2023 9:58 PM CDT 11/25/2023 10:01 PM CDT Shay Lee M.D. LAB BLOOD NON ADD-ON Performing Organization Address City/[facility]/ZIP Co de Phone Number [facility] [address] [place] [address], [facility] [address] [place] [address] * Transfuse Emergency Released Red Blood Cells (Uncrossmatched) (11/25/2023 9:51 PM CDT) Shay Lee M.D. BLOOD TRANSFUSION OR DERABLES * Transfuse Emergency Released Red Blood Cells (Uncrossmatched) (11/25/2023 9:44 PM CDT) Shay Lee M.D. BLOOD TRANSFUSION OR DERABLES * Lactate (11/25/2023 9:05 PM CDT) Lactate, P 1.6 0.5 - 2.2 mmol/L 11/25/2023 9:23 PM CDT [facility] Blood (Blood, Venous) 11/25/2023 9:05 PM CDT 11/25/2023 9:11 PM CDT Shay Lee M.D. LAB BLOOD NON ADD-ON Performing Organization Address City/[facility]/ZIP Co de Phone Number [facility] [address] [place] [address], [facility] [address] [place] [address] * (ABNORMAL) Basic Metabolic Panel (11/25/2023 9:05 [...] CDT Shay Lee M.D. LAB BLOOD ADD-ON [facility] [address] [place] [address], [facility] [address] [place] [address] * (ABNORMAL) CBC without Differential (11/25/2023 9:05 [...] M.D. LAB BLOOD ADD-ON Performing Organization Address City/[facility]/ZIP Co de Phone Number [facility] [address] [place] [address], [facility] STMA [facility] [address] [place] [address] * (ABNORMAL) Thromboelastograph, Kaolin, Blood (11/25/2023 9:04 [...] LAB BLOOD NON ADD-ON Performing Organization Address City/[facility]/ZIP Co de Phone Number [facility] [address] [place] [address] * (ABNORMAL) Troponin T, 2 Hour with 6 Hour Reflex, 5th Gen (11/25/2023 5:38 PM CDT) Pathologist [facility] Troponin T, 2 hr, 5th gen 32(H) <=15 ng/L 11/25/2023 6:28 PM CDT [facility] 2H Delta 0 ng/L 11/25/2023 6:28 PM CDT [facility] Comment:6 hour collection no t indicated. 2H Delta Interp Not Changing 11/25/2023 6:28 PM CDT [facility] Blood 11/25/2023 5:38 PM CDT 11/25/2023 6:00 PM CDT Charlotte Ordaz APRN C.N.P., D.N.P. LAB BLOOD TROPONIN [facility] [address] [place] [address] * (ABNORMAL) pH (11/25/2023 3:32 PM CDT) [facility] pH 7.32(L) 7.35 - 7.45 pH 11/25/2023 3:41 PM CDT [facility] Blood 11/25/2023 3:32 PM CDT 11/25/2023 3:37 PM CDT Serafin Ford M.D. LAB HISTORICAL ORDER S [facility] 200 [place] [address] * (ABNORMAL) Calcium, Ionized (11/25/2023 3:32 PM CDT) [facility] Calcium, Ionized, B 4.60(L) 4.65 - 5.30 mg/dL 11/25/2023 3:41 PM CDT [facility] Blood (Blood, Venous) 11/25/2023 3:32 PM CDT 11/25/2023 3:37 PM CDT Serafin Ford M.D. LAB BLOOD NON ADD-ON [facility] [address] [place] [address], [facility] STMA [facility] [address] [place] [address] * Phosphorus Inorganic (11/25/2023 3:31 PM CDT) Phosphorus (Inorganic), S 3.8 2.5 - 4.5 mg/dL 11/25/2023 4:29 PM CDT DTL Blood (Blood, Venous) 11/25/2023 3:31 PM CDT 11/25/2023 4:12 PM CDT Serafin Ford M.D. LAB BLOOD ADD-ON [facility] [address] [place] [address], [facility] [address] [place] [address] * Magnesium (11/25/2023 3:31 PM CDT) Magnesium, S 2.1 1.7 - 2.3 mg/dL 11/25/2023 4:29 PM CDT DTL Blood (Blood, Venous) 11/25/2023 3:31 PM CDT 11/25/2023 4:12 PM CDT Serafin Ford M.D. LAB BLOOD ADD-ON [facility] [address] [place] [address], [facility] [address] [place] [address] * (ABNORMAL) Troponin T, Baseline with 2 Hour/6 Hour Reflex Biomarker Panel (11/25/2023 3:30 PM CDT) [facility] Troponin T, Baseline, 5th gen 32(H) <=15 ng/L 11/25/2023 4:05 PM CDT [facility] Blood (Blood, Venous) 11/25/2023 3:30 PM CDT 11/25/2023 3:37 PM CDT Charlotte Ordaz APRN, C.N.P., D.N.P. LAB BLOOD TROPONIN [facility] [address] [place] [address], [facility] [address] [place] [address] * (ABNORMAL) CBC without Differential (11/25/2023 3:30 PM CDT) [facility] Hemoglobin 9.3(L) 13.2 - 16.6 g/dL [...] CDT Serafin Ford M.D. LAB BLOOD ADD-ON [facility] [address] [place] [address], [facility] STMA [facility] [address] [place] [address] * (ABNORMAL) Basic Metabolic Panel (11/25/2023 3:30 [...] CDT Serafin Ford M.D. LAB BLOOD ADD-ON [facility] [address] [place] [address], [facility] STMA [facility] [address] [place] [address] * ECG 12 Lead (11/25/2023 3:16 PM CDT) Ventricular Rate ECG/Min 80 BPM MUSE AL Interval 124 ms MUSE QRSD Interval 86 ms MUSE QT Interval 400 ms MUSE QTC Interval 461 ms MUSE P [place] 48 degrees MUSE R [place] 27 degrees MUSE T Wave [place] 31 degrees MUSE 11/25/2023 3:16 PM CDT [...] C.N.P., D.N.P. ECG ORDERABLES Performing Organization Address [facility] Co de Phone Number MUSE [...] M.D. IMG FLUOROSCOPY PROCEDURES Performing Organization Address City/[facility]/ZIP Co de Phone Number 152 HOS [...] Beth M.D. LAB BLOOD NON ADD -ON [facility] [address] [place] [address], [facility] [address] [place] [address] * (ABNORMAL) Glucose, Whole Blood (11/25/2023 1:31 PM CDT) Glucose 165(H) 70 - 140 mg/dL 11/25/2023 1:33 PM CDT [facility] Blood (Blood, Arterial Line) 11/25/2023 1:31 PM CDT 11/25/2023 1:31 PM CDT Ale Tatum M.D. LAB BLOOD ADD-ON [facility] [address] [place], [place] [id number] [place] [address] 200 [place] [address] * Potassium, Blood (11/25/2023 1:31 PM CDT) Potassium, B 3.7 3.6 - 5.2 mmol/L 11/25/2023 1:34 PM CDT [facility] Blood (Blood, Arterial Line) 11/25/2023 1:31 PM CDT 11/25/2023 1:31 PM CDT Ale Tatum M.D. LAB BLOOD NON ADD-ON Performing Organization Address City/[facility]/ZIP Co de Phone Number [facility] [address] [place], [place] [address] [place] [address] 200 [place] [address] * Sodium, B (11/25/2023 1:31 PM CDT) Sodium, B 141 135 - 145 mmol/L 11/25/2023 1:33 PM CDT [facility] Blood (Blood, Arterial Line) 11/25/2023 1:31 PM CDT 11/25/2023 1:31 PM CDT Ale Tatum M.D. LAB BLOOD NON ADD-ON [facility] [address] [place], [place] [id number] [place] [address] 200 [place] [address] * (ABNORMAL) Calcium, Ionized (11/25/2023 1:31 PM CDT) Calcium, Ionized, B 4.34(L) 4.65 - 5.30 mg/dL 11/25/2023 1:34 PM CDT [facility] Blood (Blood, Arterial Line) 11/25/2023 1:31 PM CDT 11/25/2023 1:31 PM CDT Ale Tatum M.D. LAB BLOOD NON ADD-ON [facility] [address] [place] [address], [facility] STMA [facility] [address] [place] [address] * (ABNORMAL) Blood Gas with Coox, Arterial [...] LAB BLOOD NON ADD-ON Performing Organization Address City/[facility] Co de Phone Number [facility] [address] [place] [address] * Transfuse autologous RBC (Cell Salvage) : (11/25/2023 12:34 PM CDT) Ale Tatum M.D. BLOOD TRANSFUSION OR DERABLES * (ABNORMAL) Hemoglobin, Whole Blood (11/25/2023 12:13 PM CDT) Hemoglobin, B 8.1(L) 13.2 - 16.6 g/dL 11/25/2023 12:14 PM CDT [facility] Blood (Blood, Arterial Line) 11/25/2023 12:13 PM CDT 11/25/2023 12:13 PM CDT Gogo Chavez APRN, CRNA LAB BLOOD NON A DD-ON Performing Organization Address [facility] Co de Phone Number [facility] [address] [place] [address] * Transfuse Red Blood Cells : (11/25/2023 11:50 AM CDT) Ale Tatum M.D. BLOOD TRANSFUSION OR DERABLES * Lactate, B - Intra-op (11/25/2023 11:09 AM CDT) Lactate, B 1.1 0.5 - 2.2 mmol/L 11/25/2023 11:11 AM CDT [facility] Blood (Blood, Venous) 11/25/2023 11:09 AM CDT 11/25/2023 11:09 AM CDT Ale Tatum M.D. LAB BLOOD NON ADD-ON Performing Organization Address City/[facility]/ZIP Co de Phone Number [facility] [address] [place] [address] * (ABNORMAL) Glucose, Whole Blood (11/25/2023 11:09 AM CDT) Glucose 143(H) 70 - 140 mg/dL 11/25/2023 11:11 AM CDT [facility] Blood (Blood, Arterial Line) 11/25/2023 11:09 AM CDT 11/25/2023 11:09 AM CDT Ale Tatum M.D. LAB BLOOD ADD-ON [facility] [address] [place], [place] [address] [address] [place] [address] * (ABNORMAL) Potassium, Blood (11/25/2023 11:09 AM CDT) Potassium, B 3.5(L) 3.6 - 5.2 mmol/L 11/25/2023 11:12 AM CDT [facility] Blood (Blood, Arterial Line) 11/25/2023 11:09 AM CDT 11/25/2023 11:09 AM CDT Ale Tatum M.D. LAB BLOOD NON ADD-ON Performing Organization Address City/[facility]/ZIP Co de Phone Number [facility] [address] [place], [place] [address] [address] [place] [address] * Sodium, B (11/25/2023 11:09 AM CDT) Sodium, B 139 135 - 145 mmol/L 11/25/2023 11:11 AM CDT [facility] Blood (Blood, Arterial Line) 11/25/2023 11:09 AM CDT 11/25/2023 11:09 AM CDT Ale Tatum M.D. LAB BLOOD NON ADD-ON [facility] [address] [place] [address], [facility] [address] [place] [address] * Calcium, Ionized (11/25/2023 11:09 AM CDT) Calcium, Ionized, B 4.84 4.65 - 5.30 mg/dL 11/25/2023 11:12 AM CDT [facility] Blood (Blood, Arterial Line) 11/25/2023 11:09 AM CDT 11/25/2023 11:09 AM CDT Ale Tatum M.D. LAB BLOOD NON ADD-ON [facility] [address] [place] [address], [facility] [address] [place] [address] * (ABNORMAL) Blood Gas with Coox, Arterial [...] Ale Tatum M.D. LAB BLOOD NON ADD-ON [facility] [address] [place] [address], [facility] [address] [place] [address] * Transfuse Red Blood Cells : (11/25/2023 [...] Jr., M.D. LAB BLOOD NON AD D-ON [facility] [address] [place] [address], [facility] [address] [place] [address] * Glucose, Whole Blood (11/25/2023 9:22 AM CDT) Glucose 112 70 - 140 mg/dL 11/25/2023 9:24 AM CDT [facility] Blood (Blood, Arterial Line) 11/25/2023 9:22 AM CDT 11/25/2023 9:22 AM CDT Ale Tatum M.D. LAB BLOOD ADD-ON [facility] [address] [place] [address] * (ABNORMAL) Potassium, Blood (11/25/2023 9:22 AM CDT) Potassium, B 3.4(L) 3.6 - 5.2 mmol/L 11/25/2023 9:25 AM CDT [facility] Blood (Blood, Arterial Line) 11/25/2023 9:22 AM CDT 11/25/2023 9:22 AM CDT Ale Tatum M.D. LAB BLOOD NON ADD-ON Performing Organization Address City/[facility]/ZIP Co de Phone Number [facility] [address] [place] [address] * Sodium, B (11/25/2023 9:22 AM CDT) Sodium, B 141 135 - 145 mmol/L 11/25/2023 9:24 AM CDT [facility] Blood (Blood, Arterial Line) 11/25/2023 9:22 AM CDT 11/25/2023 9:22 AM CDT Ale Tatum M.D. LAB BLOOD NON ADD-ON [facility] [address] [place] [address] * (ABNORMAL) Calcium, Ionized (11/25/2023 9:22 AM CDT) Calcium, Ionized, B 4.40(L) 4.65 - 5.30 mg/dL 11/25/2023 9:25 AM CDT [facility] Blood (Blood, Arterial Line) 11/25/2023 9:22 AM CDT 11/25/2023 9:22 AM CDT Ale Tatum M.D. LAB BLOOD NON ADD-ON [facility] [address] [place] [address], [facility] [address] [place] [address] * (ABNORMAL) Blood Gas with Coox, Arterial (11/25/2023 9:22 AM CDT) Pathologist [facility] pO2 232(H) 83 - 108 mm Hg [...] LAB BLOOD NON ADD-ON Performing Organization Address City/[facility] Co de Phone Number [facility] [address] [place] [address] * Patient Status (11/25/2023 7:08 AM CDT) O2 Flow 3.0 L/min 11/25/2023 7:11 AM CDT [facility] Device NC 11/25/2023 7:11 AM CDT [facility] Spont. breaths/min 18 11/25/2023 7:11 AM CDT [facility] Blood 11/25/2023 7:08 AM CDT 11/25/2023 7:11 AM CDT Hilda Carranza APRN, C.N.P., M.S.N. LA B BLOOD NON ADD-ON Performing Organization Address [facility] Co de Phone Number [facility] [address] [place], [place] [id number] [place] [address] [address] [place] [address] * (ABNORMAL) Blood Gas with Coox, Venous [...] CDT 11/25/2023 7:11 AM CDT Tracy Yancey APRNNLeon., M.S.N. LA B BLOOD NON ADD-ON Performing Organization Address City/[facility]/ZIP Co de Phone Number [facility] [address] [place] [address], [facility] STMA [facility] [address] [place] [address] * (ABNORMAL) CK (Creatine Kinase) (11/25/2023 6:15 AM CDT) [facility] Creatine Kinase (CK), S 3100(H) 39 - 308 U/L 11/25/2023 9:15 AM CDT DTL Blood (Blood, Venous) 11/25/2023 6:15 AM CDT 11/25/2023 7:01 AM CDT Tracy Yancey APRNN.P., M.S.N. LA B BLOOD ADD-ON Performing Organization Address City/[facility]/ZIP Co de Phone Number [facility] [address] [place] [address], [facility] [address] [place] [address] * (ABNORMAL) Phosphorus Inorganic (11/25/2023 6:15 AM CDT) Phosphorus (Inorganic), S 2.2(L) 2.5 - 4.5 mg/dL 11/25/2023 9:15 AM CDT DTL Blood (Blood, Venous) 11/25/2023 6:15 AM CDT 11/25/2023 7:01 AM CDT Hilda Carranza APRN, C.N.P., M.S.NTarik HERNANDEZ BLOOD ADD-ON Performing Organization Address City/[facility] Co de Phone Number [facility] [address] [place] [address] * Magnesium (11/25/2023 6:15 AM CDT) Magnesium, S 2.2 1.7 - 2.3 mg/dL 11/25/2023 9:15 AM CDT DTL Blood (Blood, Venous) 11/25/2023 6:15 AM CDT 11/25/2023 7:01 AM CDT Tracy Yancey APRNNLeon., M.S.NTarik HERNANDEZ BLOOD ADD-ON Performing Organization Address [facility] Co de Phone Number [facility] [address] [place] [address] * (ABNORMAL) Basic Metabolic Panel (11/25/2023 6:15 [...] 7:01 AM CDT Hilda Carranza APRN, C.N.P., M.S.N. LA B BLOOD ADD-ON [address] [address], [facility] [address] [place] [address] * (ABNORMAL) CBC without Differential (11/25/2023 6:15 [...] - 9.6 x10(9)/L 11/25/2023 6:51 AM CDT [facility] Blood (Blood, Venous) 11/25/2023 6:15 AM CDT 11/25/2023 6:42 AM CDT Hilda Carranza APRN, C.N.P., M.S.NTarik LA B BLOOD ADD-ON [facility] [address] [place] [address], [facility] [address] [place] [address] * DX Chest Portable 1 View (11/25/2023 [...] well seenradiographically. Remainder negative. Tracy Yancey APRNNKerrie, M.S.NTarik IM G DIAGNOSTIC IMAGING PROCEDURES * ECG 12 Lead (11/25/2023 5:33 AM CDT) Ventricular Rate ECG/Min 74 BPM MUSE AL Interval 142 ms MUSE QRSD Interval 90 ms MUSE QT Interval 414 ms MUSE QTC Interval 459 ms MUSE P [place] 39 degrees MUSE R [place] 12 degrees MUSE T Wave [place] 30 degrees MUSE 11/25/2023 5:33 AM CDT [...] leads Reviewed by ANTONIETA Fuentes Hilda Carranza APRN C.N.P., M.S.N. G ORDERABLES MUSE NA * (ABNORMAL) CBC [...] 2:51 PM CDT Hilda Carranza APRN, C.N.PTarik, M.SJamil SPENCER B BLOOD ADD-ON Performing Organization Address City/[facility]/ZIP Co de Phone Number [facility] [address] [facility] [address] [place] [address] * (ABNORMAL) Microscopic Manual (11/24/2023 9:58 AM [...] D.N.P. LAB URINE ORDERABLES Performing Organization Address City/[facility]/ZIP Co de Phone Number [facility] [address] [place] [place] [id number] [place] [address] [facility] [address] [place] [address] * (ABNORMAL) Dipstick, Urine (11/24/2023 9:58 AM [...] Hansen APRN, C.N.P., D.N.P. LAB URINE ORDERABLES [facility] 200 [place] [address] * pH, Urine (11/24/2023 9:58 AM CDT) pH, U 5.1 4.5 - 8.0 11/24/2023 11: 48 AM CDT DTL Urine 11/24/2023 9:58 AM CDT 11/24/2023 10:39 AM CDT Janina Hansen APRN, C.N.P., D.N.P. LAB URINE ORDERABLES [facility] [address] [place] [address] * Osmolality, Urine (11/24/2023 9:58 AM CDT) Osmolality, U 901 150 - 1150 mOsm/kg 11/24/2023 11:48 AM CDT DTL Urine 11/24/2023 9:58 AM CDT 11/24/2023 10:39 AM CDT Janina Hansen APRN, C.N.P., D.N.P. LAB URINE ORDERABLES Performing Organization Address [facility] Co de Phone Number [facility] [address] [place], [place] [phone] [place] [address] 200 [place] [address] * (ABNORMAL) Urinalysis, with Microscopic: Urine, Catheter [...] D.N.P. LAB URINE ORDERABLES Performing Organization Address City/[facility]/ZIP Co de Phone Number [facility] [address] [place], [place] [address] 200 [place] [address] * Patient Status (11/24/2023 9:26 AM CDT) FIO2 0.21 0.21=AIR 11/24/2023 9:33 AM CDT [facility] Spont. breaths/min 22 11/24/2023 9:33 AM CDT [facility] Blood 11/24/2023 9:26 AM CDT 11/24/2023 9:33 AM CDT Tracy Yancey APRNNLeon., M.S.N. LA B BLOOD NON ADD-ON [facility] [address] [place] [address], [facility] STMA [facility] [address] [place] [address] * (ABNORMAL) Blood Gas with Coox, Venous [...] 11/24/2023 9:33 AM CDT Barbara Yancey APRN.N.PTarik, M.STarikNTarik SPENCER B BLOOD NON ADD-ON Performing Organization Address City/[facility]/ZIP Co de Phone Number [facility] [address] [place] [address] * Lactate (11/24/2023 9:26 AM CDT) Pathologist [facility] Lactate, P 1.7 0.5 - 2.2 mmol/L 11/24/2023 9:46 AM CDT [facility] Blood (Blood, Venous) 11/24/2023 9:26 AM CDT 11/24/2023 9:33 AM CDT Tracy Montes APRNN.Tian, Olivia.N.P. LAB BLOOD NON ADD-ON Performing Organization Address City/[facility] Co de Phone Number [facility] [address] [place] [address] * (ABNORMAL) CK (Creatine Kinase) (11/24/2023 9:26 AM CDT) [facility] Creatine Kinase (CK), S 2304(H) 39 - 308 U/L 11/24/2023 10:53 AM CDT DTL Blood (Blood, Venous) 11/24/2023 9:26 AM CDT 11/24/2023 10:04 AM CDT Sheldon Choi P.A.-C. LAB BLOOD A DD-ON Performing Organization Address City/[facility] Co de Phone Number [facility] [address] [place] [address] * (ABNORMAL) CBC without Differential (11/24/2023 9:26 AM CDT) [facility] [facility] Hemoglobin 8.8(L) 13.2 - 16.6 g/dL [...] Sheldon Choi P.A.-C. LAB BLOOD A DD-ON [address] [address], [facility] [address] [place] [address] * (ABNORMAL) Basic Metabolic Panel (11/24/2023 9:26 AM CDT) [facility] Potassium, S 4.1 3.6 - 5.2 [...] Sheldon Choi P.A.-C. [place] [address], [facility] [place] [address] * ECG 12 Lead (11/24/2023 9:13 AM CDT) Ventricular Rate ECG/Min 132 BPM MUSE AL Interval 130 ms MUSE QRSD Interval 88 ms MUSE QT Interval 330 ms MUSE QTC Interval 488 ms MUSE P [place] 3 degrees MUSE R [place] 24 degrees MUSE T Wave [place] 32 degrees MUSE 11/24/2023 9:13 AM CDT [...] was found Reviewed by ANTONIETA Kirby Janina Eva Hansen APRN, C.N.P., D.N.P. ECG ORDERABLES MUSE NA * [...] a small subdural effusion. Sheldon Choi P.A.-C. IM CT PROC EDURES * Drug Screen Urine (11/24/2023 7:01 AM CDT) [facility] Ethanol, Screen U Negative NEGATIVE 11/24/2023 8:12 [...] Hilda Carranza APRN, C.N.P., M.S.N. JOHANNA Cota URINE ORDERABLES [facility] [address] [place] [address], [place] DTL [facility] [address] [place] [address] * DX Chest Portable 1 View (11/24/2023 [...] CHEST PORTABLE 1 VIEW Procedure Note Bakari yAala M.D., Ph.D. - 11/24/2023 EXAM: DX CHEST [...] PROCEDURES * Lactate (11/23/2023 10:52 PM CDT) [facility] Lactate, P 2.1 0.5 - 2.2 mmol/L 11/23/2023 11:11 PM CDT [facility] Blood (Blood, Venous) 11/23/2023 10:52 PM CDT 11/23/2023 10:57 PM CDT Sheldon Choi P.A.-C. LAB BLOOD N ON ADD-ON [facility] [address] [place] [address], [facility] [address] [place] [address] * (ABNORMAL) CBC without Differential (11/23/2023 10:52 PM CDT) [facility] Hemoglobin 9.5(L) 13.2 - 16.6 g/dL [...] LAB BLOOD A DD-ON Performing Organization Address City/[facility]/ZIP Co de Phone Number [facility] [address] [place] [address] * (ABNORMAL) Troponin T, 6h, 5th Gen (11/23/2023 10:52 PM CDT) [facility] Troponin T, 6 hr, 5th gen 29(H) <=15 ng/L 11/23/2023 11:16 PM CDT ST[facility] 6H Delta 7 ng/L 11/23/2023 11:16 PM CDT [facility] 6H Delta Interp Not Changing 11/23/2023 11:16 PM CDT [facility] Blood 11/23/2023 10:5 2 PM CDT 11/23/2023 10:57 PM CDT Bereket Snider M.D. LAB BLOOD TROPONIN Performing Organization Address [facility] Co de Phone Number [facility] [address] [place] [address] * DX Femur Left 2 Views (11/23/2023 [...] LAB BLOOD T ROPONIN Performing Organization Address City/[facility]/ZIP Co de Phone Number [facility] [address] [place] [address] * Patient Status (11/23/2023 4:52 PM CDT) Pathologist [facility] FIO2 0.21 0.21=AIR 11/23/2023 5:01 PM CDT [facility] Spont. breaths/min 18 11/23/2023 5:01 PM CDT [facility] Blood 11/23/2023 4:52 PM CDT 11/23/2023 5:01 PM CDT Sheldon Choi P.A.-C. LAB BLOOD N ON ADD-ON [facility] [address] [place] [address] * (ABNORMAL) Blood Gas with Coox, Venous [...] BLOOD N ON ADD-ON Performing Organization Address City/[facility]/ZIP Co de Phone Number [facility] [address] [place] [address], [facility] STMA [facility] [address] [place] [address] * (ABNORMAL) pH (11/23/2023 4:51 PM CDT) pH 7.30(L) 7.35 - 7.45 pH 11/23/2023 5:06 PM CDT [facility] Blood 11/23/2023 4:51 PM CDT 11/23/2023 5:01 PM CDT Sheldon Choi P.A.-C. LAB HISTORI PURNIMA ORDERS Performing Organization Address City/[facility]/ZIP Co de Phone Number [facility] [address] [place] [address] * Hemoglobin A1c (11/23/2023 4:51 PM CDT) Pathologist [facility] Hemoglobin A1c, B 5.4 4.0 - 5.6 % 11/23/2023 5:42 PM CDT DT Blood (Blood, Venous) 11/23/2023 4:51 PM CDT 11/23/2023 5:19 PM CDT Sheldon Choi P.A.-C. LAB BLOOD A DD-ON [facility] 200 [place] [address] * (ABNORMAL) CK (Creatine Kinase) (11/23/2023 4:51 PM CDT) [facility] Creatine Kinase (CK), S 728(H) 39 - 308 U/L 11/23/2023 6:04 PM CDT DT Blood (Blood, Venous) 11/23/2023 4:51 PM CDT 11/23/2023 5:35 PM CDT Sheldon Choi P.A.-C. LAB BLOOD A DD-ON [facility] [address] [place] [address] * (ABNORMAL) Troponin T, Baseline with 2 Hour/6 Hour Reflex Biomarker Panel (11/23/2023 4:51 PM CDT) [facility] Troponin T, Baseline, 5th gen 22(H) <=15 ng/L 11/23/2023 5:23 PM CDT [facility] Blood (Blood, Venous) 11/23/2023 4:51 PM CDT 11/23/2023 5:01 PM CDT Sheldon Choi P.A.-C. LAB BLOOD T ROPONIN Performing Organization Address [facility] Co de Phone Number [facility] [address] [place] [address], [facility] 200 [place] [address] * (ABNORMAL) Prothrombin Time (PT) (11/23/2023 4:51 PM CDT) Prothrombin Time, P 12.6(H) 9.4 - 12.5 sec 11/23/2023 5:24 PM CDT [facility] INR 1.1 0.9 - 1.1 11/23/2023 5:24 PM CDT [facility] Comment: ----ADDITIONAL INFORMATION---- Standard intensity warfarin therapeutic range: 2.0 to 3.0 ?? High intensity warfarin therapeutic range: 2.5 to 3.5 Blood (Blood, Venous) 11/23/2023 4:51 PM CDT 11/23/2023 5:01 PM CDT Sheldon Choi P.A.-C. LAB BLOOD A DD-ON Performing Organization Address [facility] de Phone Number [facility] [address] [place] [address], [facility] [address] [place] [address] * Phosphorus Inorganic (11/23/2023 4:51 PM CDT) Phosphorus (Inorganic), S 3.1 2.5 - 4.5 mg/dL 11/23/2023 6:04 PM CDT DTL Blood (Blood, Venous) 11/23/2023 4:51 PM CDT 11/23/2023 5:35 PM CDT Sheldon Choi P.A.-C. LAB BLOOD A DD-ON Performing Organization Address City/[facility] Co de Phone Number [facility] [address] [place], [place] [address] 200 [place] [address] * Magnesium (11/23/2023 4:51 PM CDT) Pathologist [facility] Magnesium, S 2.0 1.7 - 2.3 mg/dL 11/23/2023 6:04 PM CDT DT Blood (Blood, Venous) 11/23/2023 4:51 PM CDT 11/23/2023 5:35 PM CDT Sheldon Choi P.A.-C. LAB BLOOD A DD-ON Performing Organization Address City/[facility]/ZIP Co de Phone Number [facility] [address] [place], [place] [phone] [place] [address] 200 [place] [address] * (ABNORMAL) Lactate (11/23/2023 4:51 PM CDT) [facility] Lactate, P 2.6(H) 0.5 - 2.2 mmol/L 11/23/2023 5:19 PM CDT [facility] Blood (Blood, Venous) 11/23/2023 4:51 PM CDT 11/23/2023 5:01 PM CDT Sheldon Choi P.A.-C. LAB BLOOD N ON ADD-ON [facility] 200 [place] [address], [facility] [address] [place] [address] * (ABNORMAL) CBC without Differential (11/23/2023 4:51 PM CDT) Pathologist [facility] Hemoglobin 11.3(L) 13.2 - 16.6 g/dL 11/23/2023 [...] LAB BLOOD A DD-ON Performing Organization Address City/[facility]/ZIP Co de Phone Number [facility] [address] [place] [address] * (ABNORMAL) Calcium, Ionized (11/23/2023 4:51 PM CDT) [facility] Calcium, Ionized, B 4.59(L) 4.65 - 5.30 mg/dL 11/23/2023 5:06 PM CDT [facility] Blood (Blood, Venous) 11/23/2023 4:51 PM CDT 11/23/2023 5:01 PM CDT Sheldon Choi P.A.-C. LAB BLOOD N ON ADD-ON Performing Organization Address City/[facility]/ZIP Co de Phone Number [facility] [address] [place] [address] * (ABNORMAL) Basic Metabolic Panel (11/23/2023 4:51 [...] Sheldon Choi P.A.-C. LAB BLOOD A DD-ON [facility] [address] [place] [address], [facility] [address] [place] [address] * Thromboelastograph, Kaolin, Blood (11/23/2023 4:49 PM CDT) R, Kaolin, TEG 5.6 4.0 - 9.0 min 11/23/2023 5:54 PM CDT [facility] K, Kaolin, TEG 1.4 1.0 - 1.8 min 11/23/2023 5:54 PM CDT [facility] Angle Kaolin, TEG 70.0 64.0 - 78.1 degrees 11/23/2023 5:54 PM CDT [facility] MADasholin, TEG 68.4 57.1 - 72.6 mm 11/23/2023 5:54 PM CDT ST[facility] Ly30, Kaolin, TEG 0.0 0.0 - 4.8 % 11/23/2023 5:54 PM CDT [facility] Blood (Blood, Venous) 11/23/2023 4:49 PM CDT 11/23/2023 4:55 PM CDT Sheldon Choi P.A.-C. LAB BLOOD N ON ADD-ON [facility] [address] [place] [address], [facility] [address] [place] [address] * Critical Care (11/23/2023 4:42 PM CDT) [...] deterioration of the following conditions: shock trauma [employer] failure or compromise hemorrhage Critical care was [...] CDT) Ventricular Rate ECG/Min 95 BPM MUSE AL Interval 130 ms MUSE QRSD Interval 82 ms MUSE QT Interval 384 ms MUSE QTC Interval 482 ms MUSE P [place] 50 degrees MUSE R [place] 23 degrees MUSE T Wave [place] 45 degrees MUSE 11/23/2023 4:41 PM CDT [...] assist in treatment planning. Toni Vazquez M.D. IM CT PROCEDURES * DX Pelvis 1-2 Views [...] ??DX PELVIS 1-2 VIEWS Christopher Cornell M.D. [facility] DIAGNOSTIC IMAGING PROCEDURES * (ABNORMAL) Basic Metabolic [...] LAB BLOOD ADD- ON Performing Organization Address City/[facility]/ZIP Co de Phone Number [id number] [place] [address] * (ABNORMAL) Troponin T, 2 Hour with 6 Hour Reflex, 5th Gen (11/23/2023 2:52 PM CDT) Pathologist [facility] Troponin T, 2 hr, 5th gen 21(H) <=15 ng/L 11/23/2023 3:28 PM CDT ST[facility] 2H Delta 4 ng/L 11/23/2023 3:28 PM CDT [facility] Comment:6 hour collection pe nding. 2H Delta Interp Indeterminate 11/23/2023 3:28 PM CDT [facility] Comment:Indeterminate delta, additional sample suggested Blood 11/23/2023 2:52 PM CDT 11/23/2023 2:58 PM CDT Bereket Snider M.D. LAB BLOOD TROPONIN Performing Organization Address [facility]/ZIP Co de Phone Number [phone] [place] [address] * ECG 12 Lead (11/23/2023 2:45 PM CDT) Ventricular Rate ECG/Min 87 BPM MUSE AL Interval 138 ms MUSE QRSD Interval 82 ms MUSE QT Interval 402 ms MUSE QTC Interval 483 ms MUSE P [place] 46 degrees MUSE R [place] 19 degrees MUSE T Wave [place] 37 degrees MUSE 11/23/2023 2:45 PM CDT [...] for spine findings. Procedure Note Santosh Bruno M.B.BTarikS. - 11/23/2023 EXAM: CT ABDOMEN PELVIS WITH [...] Findings discussed with Bereket Snider M.D. (pager #[phone]) on 11/23/2023 at 1:24 PM. Narrative 11/23/2023 [...] Findings discussed with Bereket Snider M.D. (pager #[phone]) on 4at 1:24 PM. Bereket Snider M.D. IMG CT PROCEDURES * Lactate for Sepsis with Reflex, POCT (11/23/2023 1:06 PM CDT) Lactate, POCT 1.67 0.50 - 2.20 mmol/L 11/23/2023 1:19 PM CDT PCLX Blood (Blood, Venous) 11/23/2023 1:06 PM CDT 11/23/2023 1:06 PM CDT Bereket Snider M.D. LAB POCT ORDERABLES - DEVICE POC [facility] [address] [place] [address], [facility] PCLX [facility] [place] POC [address] [place] [address] * (ABNORMAL) Venous Blood Gas and Electrolytes [...] POCT ORDERABLES - DEVICE Performing Organization Address [facility]/ZIP Co de Phone Number POC [facility] [address] PCSM [facility] [address] [place] [address] * (ABNORMAL) Troponin T, Baseline with 2 Hour/6 Hour Reflex Biomarker Panel (11/23/2023 1:06 PM CDT) Troponin T, Baseline, 5th gen 17(H) <=15 ng/L 11/23/2023 1:36 PM CDT [facility] Blood (Blood, Venous) 11/23/2023 1:06 PM CDT 11/23/2023 1:18 PM CDT Bereket Snider M.D. LAB BLOOD TROPONIN Performing Organization Address City/[facility]/ZIP Co de Phone Number [facility] [address] [place], [place] [phone] [place] [address] [facility] [address] [place] [address] * Type and Screen (with Reflex Antibody ID) (11/23/2023 1:06 PM CDT) ABORh AB Pos Not applicable 11/23/2023 1:46 PM CDT STRM Antibody Screen Negative Negative 11/23/2023 1:59 PM CDT STRM Type & Screen Expiration 11/26/2023 23:59 11/23/2023 1:46 PM CDT STRM Testing Location [place] DEFAULT 11/23/2023 1:19 PM CDT STRM Blood (Blood, Venous) 11/23/2023 1:06 PM CDT 11/23/2023 1:19 PM CDT Bereket Snider M.D. LAB BLOOD BANK TEST ORDERABLES Performing Organization Address [facility]/ZIP Co de Phone Number [facility] [address] [place], [place] [address] STRM [facility] [address] [place] [address] * APTT (Activated Partial Thromboplastin Time) (11/23/2023 1:06 PM CDT) [facility] Activated Partial Thrombopl Time, P 30 25 - 37 sec 11/23/2023 2:03 PM CDT [facility] Blood (Blood, Venous) 11/23/2023 1:06 PM CDT 11/23/2023 1:18 PM CDT Bereket Snider M.D. LAB BLOOD ADD-ON [facility] [address] [place], [place] [address] STMA [address] [address] * (ABNORMAL) Prothrombin Time (PT) (11/23/2023 1:06 PM CDT) Pathologist [facility] Prothrombin Time, P 16.8(H) 9.4 - 12.5 sec 11/23/2023 2:00 PM CDT STMA INR 1.5 0.9 - 1.1 11/23/2023 2:00 PM CDT [facility] Comment: ----ADDITIONAL INFORMATION---- Standard intensity warfarin therapeutic range: 2.0 to 3.0 ?? High intensity warfarin therapeutic range: 2.5 to 3.5 Blood (Blood, Venous) 11/23/2023 1:06 PM CDT 11/23/2023 1:18 PM CDT Bereket Snider M.D. LAB BLOOD ADD-ON [facility] [address] [place] [address], [facility] [address] [place] [address] * (ABNORMAL) CBC with Differential, Blood (11/23/2023 [...] M.D. LAB BLOOD ADD-ON Performing Organization Address City/[facility]/ZIP Co de Phone Number [facility] [address] [place] [address], [facility] STMA [facility] [address] [place] [address] [facility] [address] [place] [address] * (ABNORMAL) S-TSH (Thyroid-Stimulating Hormone - Sensitive) (11/23/2023 1:05 PM CDT) TSH, Sensitive 6.1(H) 0.3 - 4.2 mIU/L 11/23/2023 2:14 PM CDT DTL Blood (Blood, Venous) 11/23/2023 1:05 PM CDT 11/23/2023 1:40 PM CDT Bereket Snider M.D. LAB BLOOD ADD-ON [facility] [address] [place] [address], [facility] DTL [facility] [address] [place] [address] * Lipase (11/23/2023 1:05 PM CDT) Lipase, S 19 13 - 60 U/L 11/23/2023 2: 14 PM CDT DTL Blood (Blood, Venous) 11/23/2023 1:05 PM CDT 11/23/2023 1:40 PM CDT Bereket Snider M.D. LAB BLOOD ADD-ON Performing Organization Address City/[facility]/ZIP Co de Phone Number [facility] [address] [place] [address], [facility] [address] [place] [address] * (ABNORMAL) Hepatic Function Panel (11/23/2023 1:05 [...] CDT Bereket Snider M.D. LAB BLOOD ADD-ON [facility] [address] [place] [address], [facility] [address] [place] [address] * Ethanol Level, Serum (11/23/2023 1:05 PM CDT) Ethanol, S <10 <10 mg/dL 11/23/2023 2:1 4 PM CDT DTL Blood (Blood, Venous) 11/23/2023 1:05 PM CDT 11/23/2023 1:40 PM CDT Bereket Snider M.D. LAB BLOOD NON ADD-ON [facility] [address] [place] [address], [facility] [address] [place] [address] * (ABNORMAL) Basic Metabolic Panel (11/23/2023 1:05 [...] CDT Bereket Snider M.D. LAB BLOOD ADD-ON [facility] [address] [place] [address], [place] [facility] [address] [place] [address] * DX Pelvis 1-2 Views (11/23/2023 1:01 [...] Bereket Snider M.D. LAB BLOOD NON ADD-ON [facility] [address] [place] [address], [facility] [address] [place] [address] documented in this encounter Visit Diagnoses Diagnosis Fracture Ilium Closed Initial Left (HCC)- Primary History Of Falling Retroperitoneal Hematoma Fracture Ilium Closed Initial Left (HCC) Fracture Acetabulum Closed Initial Left (HCC) Contusion Buttock Initial Anemia Subarachnoid Hemorrhage With Loss Of Conscious Initial ([facility]) Other Shock (Hemorrhagic Shock) ([facility]) Fracture Pelvis Multiple Closed With Stable Disruption [...] (HCC) Effusion Pleural History Of Falling Subarachnoid Hematoma Trauma Without [...] Given 12/16/2023 6:19 AM CDT 650 mg vytqtptvhohwu-zclroadv-rolvcsqsl in Lipoderm 2%-0.5%-2% cream 1 g 1 g, topical, 3 times daily, First dose (after last modification) on Tue11/24/23 at 0915 Given 12/21/2023 10:13 AM CDT 1 g Given 12/18/2023 8:07 AM CDT 1 g Given 12/16/2023 8:58 AM CDT 1 g bisacodyL suppository 10 mg (Dulcolax) 10 mg, rectal, Daily PRN, constipation, Starting on Tue12/24/23 at 1500 enoxaparin injection 30 mg (LOVENOX) 30 mg, subcutaneous, 2 times daily, First dose on Tue12/01/23 at 2100 Given 12/26/2023 8:12 AM CDT 30 mg Left Upper Arm (Back ) Given 12/25/2023 8:37 PM CDT 30 mg Ri ght Upper Arm (Back) Given 12/25/2023 8:57 AM CDT 30 mg Ri ght Upper Arm (Back) finasteride tablet 5 mg (PROSCAR) 5 mg, oral, Daily, First dose on Tue12/02/23 at 0900, See tube feeding guidelines for tube feeding administration instructions. Given 12/27/2023 9:48 AM CDT 5 mg Given 12/26/2023 8:12 AM CDT 5 mg Given 12/25/2023 8:57 AM CDT 5 mg gentamicin powder 2.4 g (for bone cement) 2.4 g (2 vial), miscellaneous, Once in surgery, OR use only, Starting on Tue11/25/23 at 0710, For 1 dose, Intra-Op, For bone cement - do not reconstitute. Given 11/25/2023 1:52 PM CDT 1 vial Abdominal Tissue ipratropium-albuteroL 0.5-2.5 mg/3 mL nebulizer solution 3 mL (DUONEB) 3 mL, nebulization, 4 times daily PRN, wheezing, shortness of breath, Starting on Tue11/23/23 at 1655 lidocaine 5 % 1 patch (LIDODERM) 1 patch, transdermal, Administer over 12 Hours, Daily, First dose on Annika 11/24/23 at 0900, May apply up to 3 patches per day. Medication Applied 12/21/2023 10:11 AM CDT 1 patch Other Medication Applied 12/16/2023 8:58 AM CDT 1 patch Left Leg Medication Applied 12/12/2023 9:44 AM CDT 1 patch Flank melatonin tablet 5 mg 5 mg, oral, Bedtime PRN, sleep, Starting on 12/10/23 at 1331 Given 12/17/2023 9:34 PM CDT 5 mg Given 12/14/2023 9:39 PM CDT 5 mg Given 12/13/2023 10:05 PM CDT 5 mg metoprolol tablet 12.5 mg (LOPRESSOR) 12.5 mg, oral, 2 times daily, First dose (after last reorder) on 11/28/23 at 0900, Hold if SBP < 90, HR < 60 Given 12/27/2023 9:48 AM CDT 12.5 mg Given 12/26/2023 10:29 PM CDT 12.5 mg Given 12/26/2023 8:12 AM CDT 12.5 mg naloxone injection 0.2 mg (NARCAN) 0.2 mg, intravenous, As needed, respiratory depression, Starting on 11/23/23 at 1633, For RASS Score -4 or [...] Given 12/21/2023 10:14 AM CDT 17 g QUEtiapine tablet 12.5 mg (SEROqueL) 12.5 mg, oral, Bedtime PRN, delirium, Starting on Tue12/11/23 at 1856 Given 12/23/2023 2:24 AM CDT 12.5 mg Given 12/17/2023 9:33 PM CDT 12.5 mg Given 12/14/2023 9:39 PM CDT 12.5 mg ramelteon tablet 8 mg (ROZEREM) 8 mg, oral, Daily at bedtime, First dose on Tue12/07/23 at 2100 Given 12/26/2023 10:29 PM CDT 8 mg Given 12/25/2023 8:34 PM CDT 8 mg Given 12/17/2023 9:33 PM CDT 8 mg ROPivacaine (PF) 150 mg, EPINEPHrine 100 mcg, ketorolac 15 mg in NaCl 0.9% 60 mL injection (ARTHROPLASTY BLOCK 75-99.9 kg) 60 mL, infiltration, Once in surgery, OR use only, Starting on Tue11/25/23 at 0710, For 1 dose, Intra-Op, *Not for IV use* Given 11/25/2023 1:56 PM CDT 60 mL Abdom inal Tissue ROPivacaine (PF) 150 mg, EPINEPHrine 100 mcg, ketorolac 15 mg in NaCl 0.9% 60 mL injection (ARTHROPLASTY BLOCK 75-99.9 kg) 60 mL, infiltration, Once in surgery, OR use only, Starting on Tue11/25/23 at 0710, For 1 dose, Intra-Op, *Not for IV use* Given 11/25/2023 1:56 PM CDT 60 mL Abdom inal Tissue sennosides tablet 17.2 mg (SENOKOT) 17.2 mg, oral, 2 times daily, First dose on Tue11/25/23 at 2100 Given 12/25/2023 8:35 PM CDT 17.2 mg Given 12/21/2023 10:13 AM CDT 17.2 mg Given 12/18/2023 8:07 AM CDT 17.2 mg tamsulosin 24 hr capsule 0.8 mg (FLOMAX) 0.8 mg, oral, Daily, First dose (after last modification) on Tue12/04/23 at 0900, Swallow whole. Do NOT crush, chew or open capsule. Given 12/27/2023 9:48 AM CDT 0 .8 mg Given 12/26/2023 8:12 AM CDT 0.8 mg Given 12/21/2023 10:07 AM CDT 0.8 mg vancomycin powder 2 g 2 g (2 vial), miscellaneous, Once in surgery, OR use only, Starting on Tue11/25/23 at 0710, For 1 dose, Intra-Op, Do not reconstitute Given 11/25/2023 1:53 PM CDT 1 g Abdom inal Tissue documented in this encounter Active and [...] refused)0711 (Not Given - Provider: Kong Hines RJamil - Reason: Patient/family refused) phamypuyjmcoz-pnhevqpd-sd docaine in Lipoderm 2%-0.5%-2% cream 1 g 1 g, topical, 3 times daily, First dose (after last modification) on Tue11/24/23 at 0915 0903 (Not Given - Provider: Samantha Mcnamara R.N. - Reason: Patient/family refused)1313 (Not Given - Provider: Samantha Mcnamara R.N. - Reason: Patient/family refused)203 (Not Given - Provider: Jared Cristobal R.N. - Reason: Patient/family refused) 0812 (Not [...] R.N.) 0812 (Given - Provider: Erum Calhoun R.N.)2228 (Given - Provider: Afshin Bocanegra R.N.) 0948 [...] bedtime, First dose on Tue12/07/23 at 2100 2033 (Given - Provider: Jared Cristobal R.N.) 2228 (Given - Provider: Afshin Bocanegra R.N.) sennosides [...] Samantha Mcnamara R.N. - Reason: Patient/family refused) 0812 (Given - Provider: Erum Calhoun R.N.) [...] 1856 documented in this encounter Care Teams Air Compressor Mechanic Relationship Specialty Start Date End Date Elsewhere, Pcp PCP - General Internal Medicine 11/23/23 documented as of this encounter
--- OUTSIDE RECORDS SUMMARY | 2024-01-23 10:45 | XMS_ITS | Clinical Summary ---
Author Organization [facility] Address [place], [place] [address] Care Team Providers Care Caregivers Homecare Name Role Phone [place] Primary Care Provider [phone] Allergies No known active allergies Medications Medication [...] Encounters Date Type Department Care Team Description 12/12/2023 Transcribe Orders [facility] [address] [place] [phone] Carol Miller MD from Last 3 Months Immunizations Name Administration Dates Next Due Td (Age >=7 Years) 09/20/2003,2000 Family History Medical History Relation Name Comments Cancer Brother 1 lung cancer -gallagher lf brother Alcoholism Brother 2 Cancer-prostate Father [...] 65+ 02/19/2024 Medical Devices Implanted Type Area Piling Setter Device Identifier Shelf Expiration Date Model / Serial / Lot Iol Bradford +23.5 Tecnis Zcb00 - [id number] Implanted:Qty: 1 on 09/04/2018 by Pacheco Greenwood MD at [employer] Right: Eye [employer] 03/03/2022 ZCB00 23.5# / [id number] / Iol Bradford +23.5 Tecnis Zcb00 - [id number] Implanted:Qty: 1 on 10/12/2018 by Pacheco Greenwood MD at [employer] Left: Eye [employer] 01/09/2022 ZCB00 23.5# / [id number] / Advance Directives * Full Code (Latest Code Status on File) Date Activated Date Inactivated Comments 10/12/2018 9:48 AM 10/12/2018 4:08 PM * Full Code Date Activated Date Inactivated Comments 09/04/2018 8:31 AM 09/04/2018 1:15 PM Care Teams Caregivers Homecare Relationship Specialty Start Date End Date [place], [place] 1 Vetrans IGOR Shar[place] [phone] PCP - General 09/28/22
--- OUTSIDE RECORDS SUMMARY | 2024-01-23 10:45 | XMS_ITS | Encounter Summary ---
Author Organization [facility] Address [address] [place] [address] Care Team Providers Care Supervising Nurse Name Role Phone Elsewhere, Pcp Primary Care [...] CDT Appointment Department of Laboratory Medicine in [place], [place] [address] [place] [phone] Rody Arriaga, LOC, C.N.P., D.N.P. [address] [place] [phone] 02/06/2024 10:30 AM CDT Comprehensive Visit Department of Urology in [place], [place] [address] [place] [phone] Rogelio Díaz M.D. [address] [place] [address] 02/13/2024 2:45 PM CDT Clinical Communication Virtual Review in [place], [place] [address] [place] [address] 02/17/2024 12:00 PM CDT Appointment Department of Radiology, [facility], in [place], [place] [address] [place] [phone] Sera Avila P.A.-C., M.S. [address] [place] [phone] 02/17/2024 12:30 PM CDT Office Visit Department of Orthopedic Surgery in [place], [place] [address] [place] [phone] Naveed Higuera M.D. [address] [place] [phone] documented as of this encounter Procedures Procedure [...] on filedocumented in this encounter Care Teams Supervising Nurse Relationship Specialty Start Date End Date Elsewhere, Pcp PCP - General Internal Medicine 11/23/23 documented as of this encounter
--- OUTSIDE RECORDS SUMMARY | 2024-01-23 10:45 | XMS_ITS | Encounter Summary ---
Author Organization [facility] Address [address] [place] [id number] Care Team Providers Care Peoplesoft Crm Developer Name Role Phone Elsewhere, Pcp Primary Care [...] Hematoma Procedures EMERGENCY Carol Miller M.D. 200 [place] [address] Referral ID Status Reason Start Date Expiration Date Visits Re quested Visits Authorized [id number] 1 1 Encounter Details Date Type Department Care Team (Late st Contact Info) Description 11/25/2023 7:44 AM CDT Anesthesia Event RST ROMB MAIN OR [address] [place] [phone] Ale Jane M.D. [address] [place] [phone] Anesthesia Record Procedure Summary Procedure Name Responsible [...] Anes CS Handoff I, Sonali melissa APRN, PLANT SCIENTIST, attest that I have reconciled the controlled [...] Left, Lateral 11/25/23 0000 by Nazanin Ortiz RTarikN. Wound 11/25/23; N; Incisio n; Pannus; Medial 11/25/23 0000 by Nazanin Ortiz, R.NTarik Indwelling Urinary Catheter Placement Date: 11/23/23; Placement Time: 1531; Type: Double-lumen, Latex; Size: 16 Fr.; Balloon Size: 10 mL; Urine Returned: Yes; Removal Date: 11/26/23; Removal Time: 170; Removal Reason: Per order 11/23/23 1531 by Kaycee Cooper, C.R.T., L.R.T. 11/26/23 1701 by Maki Le R.N., [facility] 11/23/23; 1600; Face ; Left, [...] Reason: Infiltrated 11/24/23 1354 by Yoli Rodrigez R.NTarik 11/26/23 0200 by Alejandra Mujica RJamil Closed/Suction Drain 11/25/23; 2; Inferi or, Midline; Abdomen; Accordion; 10 Fr.; No longer in place; patient 11/25/23 0000 by Nazanin Ortiz R.N. 11/28/23 2345 by Sonali Castellanos R.N. Closed/Suction [...] wall movement; Removal Date: 11/25/23; Removal Time: 1434 11/25/23 0801 by Paolo Beth M.D. 11/25/23 1434 by Paolo Beth M.D. Arterial Line Placement Date: 11/25/23; Placemnt Time: 811 (created via procedure documentation); Size: 20 G; Orientation: Right; Location: Radial; Site Prep: Chlorhexidine (Preferred); Technique: Ultrasound guidance; Insertion Attempts: 1; Securement: Securement dressing, Securement device; Removal Date: 11/26/23; Removal Time: 165; Removal Reason: Per order 11/25/23 0812 by Dillon Sanchez Jr., M.D. 11/26/23 1650 by Maki Le RJamil, [...] Procedure Summary Date: 11/25/23 Room / Location: [place] [address] ROM 01 630 / [facility] in [place], [place] Anesthesia Start: 743 Anesthesia Stop: 1453 [...] ETT location: oral VL device: glide scope Milan scope blade size: 3 Tube size: 7.5 [...] Acetabulum Closed Initial Left (HCC) [S32.402A]. Location: [place] [address] / [facility] in [place], [place] Providers: Naveed Higuera M.D. Pertinent components [...] with patient /legal guardian or through an stapling machine operator. Risks/Benefits/Alternatives of Blood transfusion discussed with patient [...] fellow participated in the procedure, and the coding consultant was present for the entire procedure. documented in this encounter Plan of Treatment Upcoming Encounters Date Type Department Care Team (Latest Contact Info) Description 01/30/2024 10:20 AM CDT Appointment Department of Laboratory Medicine in [address] [phone] Rody Arriaga, LOC, C.N.P., D.N.P. [address] [place] [address] 02/06/2024 10:30 AM CDT Comprehensive Visit Department of Urology in [place], [place] [address] [place] [phone] Rogelio Díaz M.D. [address], [place] [address] 02/13/2024 2:45 PM CDT Clinical Communication Virtual Review in [place], [place] 200 [place] [address] 02/17/2024 12:00 PM CDT Appointment Department of Radiology, [facility] in [address] [phone] Sera Avila P.A.-C., M.S. [address] [place] [phone] 02/17/2024 12:30 PM CDT Office Visit Department of Orthopedic Surgery in [address] [phone] Naveed Higuera M.D. [address] [place] [phone] documented as of this encounter Procedures Procedure Name Priority Date/Time Associated Diagnosis Comments LDA ANE ARTERIAL LINE INSERTION Routine 11/25/2023 8:12 AM CDT ID ARTL CATH/CNULA MONITOR PERC Routine 11/25/2023 8:12 AM CDT LDA ANE ENDOTRACHEAL AIRWAY Routine 11/25/2023 8:01 AM CDT documented in this encounter Results * ID ARTL CATH/CNULA MONITOR PERC, LDA ANE ARTERIAL [...] fellow participated in the procedure, and the coding consultant was present for the entire procedure. [...] ETT location: oral VL device: glide scope Milan scope blade size: 3 Tube size: 7.5 [...] obtained? Yes - Written consent obtained via [id number], KL5570B, or FI1089-75, Attending prescriber supervising blood product administration: ALE JANE New Mallorie 11/25/2023 9:36 AM CDT Transfuse Red Blood Cells : Routine, Transfusion Indication: Active bleed and CV instability, Blood Product Administration Rate (mL/hr): 180 mL/hr, Special Requirements? No Special Requirements, Has consent been obtained? Yes - Written consent obtained via [id number], IB2535Q, or GG5499-55, Attending prescriber supervising blood product administration: ALE JANE New Mallorie 11/25/2023 10:17 AM CDT Transfuse Red Blood Cells : Routine, Transfusion Indication: Active bleed and CV instability, Blood Product Administration Rate (mL/hr): 180 mL/hr, Special Requirements? No Special Requirements, Has consent been obtained? Yes - Written consent obtained via [id number], PY6000N, or [id number], Attending prescriber supervising blood product administration: ALE JANE New Mallorie 11/25/2023 11:50 AM CDT vasopressin injection (PITRESSIN) intravenous, As needed, Starting on Tue11/25/23 at 1041, Anesthesia Intra-op Given 11/25/2023 12:50 PM CDT 1 Units Given 11/25/2023 12:35 PM CDT 1 Units Given 11/25/2023 11:51 AM CDT 1 Units documented in this encounter Care Teams Peoplesoft Crm Developer Relationship Specialty Start Date End Date Elsewhere, Pcp PCP - General Internal Medicine 11/23/23 documented as of this encounter
--- OUTSIDE RECORDS SUMMARY | 2024-01-23 10:45 | XMS_ITS | Encounter Summary ---
Author Organization [facility] Address [address] [place] [address] Care Team Providers Care Case Assembler Name Role Phone Elsewhere, Pcp Primary Care [...] CDT Appointment Department of Laboratory Medicine in [place], [place] [address] [place] [phone] Rody Arriaga, LOC, C.N.P., D.N.P. [address] [place] [phone] 02/06/2024 10:30 AM CDT Comprehensive Visit Department of Urology in [place], [place] [address] [place] [phone] Rogelio Díaz M.D. [address] [place] [phone] 02/13/2024 2:45 PM CDT Clinical Communication Virtual Review in [place], [place] [address] [place] [address] 02/17/2024 12:00 PM CDT Appointment Department of Radiology, [facility], in [place], [place] [address] [place] [phone] Sera Avila P.A.-C., M.S. [address] [place] [phone] 02/17/2024 12:30 PM CDT Office Visit Department of Orthopedic Surgery in [place], [place] [address] [place] [phone] Naveed Higuera M.D. [address] [place] [phone] documented as of this encounter Procedures Procedure [...] on filedocumented in this encounter Care Teams Case Assembler Relationship Specialty Start Date End Date Elsewhere, Pcp PCP - General Internal Medicine 11/23/23 documented as of this encounter
== END 2024-01-23 10:36 | disposition home or self-care (01) ==
LOC: ED 10:33
PROVIDERS: Emergency Provider Family Medicine
DX: Z48.02 Encounter for removal of sutures (principal)
CPT/HCPCS: 99281

== ENCOUNTER 2024-03-22 10:15 | Emergency (ER) | payer OTHER, SELFPAY ==
[2024-03-22] VITALS (26 sets, daily range): BP systolic 124–186; BP diastolic 66–109; PULSE 58–75; RESP 16–18; TEMP 36.7; O2SAT 92–99; BMI 25.1
--- NOTE | 2024-03-22 10:44 | CRLHL7_ITS ---
For Patients: As a result of the Century Cures Act, medical imaging exams and procedure reports are released immediately into your electronic medical record. You may view this report before your referring provider. If you have questions, please contact your health care provider. INDICATION: Fall, dizziness. TECHNIQUE: CT head without contrast. COMPARISON: 08/20/2021. FINDINGS: CSF spaces: Within normal limits for age. Brain parenchyma and extra-axial spaces: Mild generalized volume loss consistent with physiologic aging. Mild periventricular white matter hypoattenuation suggestive of chronic microvascular disease. No sign of mass, hemorrhage, or midline shift. No extra-axial fluid collection. Skull base and calvarium: The visualized paranasal sinuses and mastoid air cells demonstrate no acute or significant findings. Bilateral lens replacements. No skull fractures. Calcifications of bilateral cavernous carotids. IMPRESSION: No acute intracranial abnormality. No acute fracture. Please note that all CT scans at this facility use dose modulation, iterative reconstruction, and/or weight-based dosing when appropriate to reduce radiation dose to as low as reasonably achievable. Dictated by Bereket Garcia MD @ 03/22/2024 12:26:00 PM (Electronically Signed)
--- NOTE | 2024-03-22 10:44 | CT_ITS ---
Patient: PRATEEK COHN Facility:?[facility] Patient ID:?[id number] Site Patient ID:?[id number]. Site :?[id number] Study:?CT-Neck Angio Angio CTA HEAD AND NECK-03/22/2024 12:18:09 PM Ordering Physician:Bettina Greenwood Final Report: INDICATION: Fall, dizziness. TECHNIQUE: CTA neck with contrast bolus tracking, 3D angiographic rendering using maximum intensity projection (MIP) and images permanently archived. FINDINGS: There is ulcerated plaque in the proximal right internal carotid artery that results in a moderate stenosis, 65 percent by NASCET. There is atherosclerotic plaque in the proximal left internal carotid artery without significant stenosis. There is no significant vertebral artery stenosis or dissection. The soft tissues of the neck are within normal limits. The cervical spine is in normal alignment. Degenerative changes are noted in the cervical spine. 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 Please note that all CT scans at this facility use dose modulation, iterative reconstruction, and/or weight-based dosing when appropriate to reduce radiation dose to as low as reasonably achievable. Dictated by Elias Franco MD @ 03/22/2024 3:20:38 PM Signed by:?Elias Franco MD @03/22/2024 3:20:38 PM (Electronic Signature)
--- OUTSIDE RECORDS SUMMARY | 2024-03-22 10:52 | XMS_ITS | Encounter Summary ---
Author Name [facility] Address [address] [facility], [place] [address] Care Team Providers Care Respiratory Services Manager Name Role Phone ROMANA GOLDSTEIN Primary [...] PART A Jul 21, 2007 PART A [id number] [phone] PRATEEK COHN PATIENT Selected Encounter This section includes the information on record at [place] for the Encounter. Date/Time Encounter Type Encounter Description Reason Pro vider Source Dec 20, 2023 09:20 AM Outpatient Encounter TELEPHONE PRIMARY CARE IHE Encounter Template Text not used by [place] Plan of Treatment: Future Appointments (+ 6 months) and Future Tests (+/- 45 days) The Plan of Treatment section includes future care activities for the patient from all [place] treatmentfacilities. This section includes future appointments and future orders which are active, pending or scheduled. Future Appointments This section includes appointments that were scheduled to occur 6 months from the date of the Encounter, up to a maximum of 20 appointments. The data comes from all [place] treatment facilities. Appointment Date/Time Appointment Type Appointme nt Facility Name Dec 29, 2023 07:00 AM AMBULATORY - NONE [facility] Jan 11, 2024 01:00 PM AMBULATORY - MEDICINE [facility] ([facility] Jan 11, 2024 02:30 PM AMBULATORY - PSYCHIATRY [facility] ([facility]) Jan 25, 2024 11:44 AM [facility] Jan 31, 2024 09:00 AM AMBULATORY - PSYCHIATRY [facility] ([facility]) Jan 31, 2024 09:01 AM AMBULATORY - PSYCHIATRY [facility] Social History: Smoking Status (Most current) and Tobacco Use (All prior to encounter date) This section includes the most current, and the historical, smoking and tobacco- related health factors from the [place] facility where the Encounter took place. Current Smoking Status This section includes the most current smoking, or tobacco-related health factor, from the [place] facility where the Encounter took place. Date/Time Current Smoking Status Comment Facil ity Dec 01, 2017 02:51 PM LIFETIME NON-TOBACCO USER [facility] Tobacco Use History This section includes a history of the smoking, or tobacco-related health factors, that were collected on or before the date of the Encounter. The data comes from the [place] facility where the Encounter took place. Date/Time Smoking Status/Tobacco Use Comment F acility Aug 10, 2016 09:08 AM FORMER TOBACCO USER 7Y OR GREATE R [facility] Aug 10, 2016 09:08 AM LIFETIME NON-TOBACCO USER [facility] Sep 06, 2014 08:19 AM FORMER TOBACCO USER 7Y OR GREATE R [facility] Dec 09, 2011 01:28 PM FORMER TOBACCO USER 7Y OR GREATE R [facility] Encounter Notes: All associated encounter notes This section contains the clinical notes associated to the Encounter. Date/Time Encounter Note(s) Provider Source Dec 19, 2023 03:15 PM SOCIAL WORK NOTE: LOCAL TITLE: SOCIAL WORK PROGRESS NOTE STANDARD TITLE: SOCIAL WORK NOTE DATE OF NOTE: DEC 19, 2023@15:15 ENTRY DATE: DEC 20, 2023@09:20:28 AUTHOR: ELLEN LEON COSIGNER: URGENCY: STATUS: COMPLETED SOCIAL WORK PROGRESS NOTE Has ADDENDA PCSW received live call from Carl Mock's train planner at the [facility] in [place], [place] on 12/19/23. Mani was inquiring about the DME form he sent development writer, development writer informed him I received his email but no attachment. Activity Aide provided fax to send it to for [facility] requests instead, he stated he would fax is on 12/19/23. [facility]'s discharge is on hold until they can secure the DME equipment, however is medically stable to discharge. They are requesting these items get sent out to family RAFAEL. PCSW is kindly cosigning Community Therapy team as an FYI of hospital's request. Mani- train planner can be reached at [phone] with any questions. PCSW to remain available. /dexter/ ADELSO Sandoval [facility] Longwall Shearer Operator Signed: 12/20/2023 09:20 Receipt Acknowledged By: 12/20/2023 15:32 /dexter/ ISH PANIAGUA DPT PHYSICAL THERAPIST 12/20/2023 ADDENDUM STATUS: COMPLETED DME form has not been received. Additional methods for submitting the forms have been sent to the requesting provider. Will submit DME requests as soon as the forms are received. /dexter/ ISH PANIAGUA DPT PHYSICAL THERAPIST Signed: 12/20/2023 15:32 ELLEN LEON ([facility])
--- OUTSIDE RECORDS SUMMARY | 2024-03-22 10:52 | XMS_ITS | Encounter Summary ---
Author Name [facility] [place] [facility] [place] [facility] [place] [facility] [place] Address [address] [place] [address] Care Team Providers Care Ski Lift Attendant Name Role Phone ROMANA GOLDSTEIN Primary Care [...] PART A Jul 21, 2007 PART A [id number] [phone] PRATEEK COHN PATIENT Selected Encounter This section includes the information on record at [place] for the Encounter. Date/Time Encounter Type Encounter Description Reason Provider Source Dec 21, 2023 03:20 PM CASE MANAGEMENT PHYSICAL THERAPY ICD-10-CM Z74.09 Other reduced mobility VERONICA KING E Encounter Template Text not used by [place] Assessments - Encounter Diagnoses This section includes the primary and secondary diagnoses documented for the Encounter. Date/Time Primary/Secondary Diagnosis Diagnosis Name Provider Source Dec 21, 2023 03:25 PM PRIMARY Other reduced mobility VERONICA KING [facility] Plan of Treatment: Future Appointments (+ 6 months) and Future Tests (+/- 45 days) The Plan of Treatment section includes future care activities for the patient from all [place] treatmentfacilities. This section includes future appointments and future orders which are active, pending or scheduled. Future Appointments This section includes appointments that were scheduled to occur 6 months from the date of the Encounter, up to a maximum of 20 appointments. The data comes from all [place] treatment facilities. Appointment Date/Time Appointment Type Appointme nt Facility Name Dec 29, 2023 07:00 AM AMBULATORY - NONE [facility] Jan 11, 2024 01:00 PM AMBULATORY - MEDICINE [facility] ([facility] Jan 11, 2024 02:30 PM AMBULATORY - PSYCHIATRY [facility] ([facility]) Jan 25, 2024 11:44 AM AMBULATORY - NONE [facility] Jan 31, 2024 09:00 AM AMBULATORY - PS[facility]CHIATRY [facility] ([facility]) Jan 31, 2024 09:01 AM AMBULATORY - [place]ATRY [place] [facility] Social History: Smoking Status (Most current) and Tobacco Use (All prior to encounter date) This section includes the most current, and the historical, smoking and tobacco- related health factors from the [place] facility where the Encounter took place. Current Smoking Status This section includes the most current smoking, or tobacco-related health factor, from the [place] facility where the Encounter took place. Date/Time Current Smoking Status Comment Facil ity Dec 01, 2017 02:51 PM LIFETIME NON-TOBACCO USER [facility] Tobacco Use History This section includes a history of the smoking, or tobacco-related health factors, that were collected on or before the date of the Encounter. The data comes from the [place] facility where the Encounter took place. 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 RESTORE SETTINGS AND MAIL AIDS TO WHEN COMPLETE /dexter/ ESPERANZA ANDRADE AUDIO TECH Signed: 01/02/2024 14:29 ESPERANZA ANDRADE [facility] Dec 21, 2023 03:22 PM ATTENDING NOTE: [...] desire to take him home. SW from [place] and [facility] reported pt required ramp, however DME form was not filed out indicating need for ramp. Washing And Screening Plant Supervisor attempted to contact [place] SW, PT and OT several times. Eventually [...] THERAPY folder. TOTAL TIME CASE MGMT: 60' /adriano SERRANO PHYSICAL THERAPIST, CLT Signed: 12/21/2023 15:25 12/21/2023 ADDENDUM STATUS: COMPLETED Of note, still awaiting recommendation for location placement for 5 grab bars requested. /adriano SERRANO PHYSICAL THERAPIST, CLT Signed: 12/21/2023 15:39 LAILA KING [facility]
--- OUTSIDE RECORDS SUMMARY | 2024-03-22 10:52 | XMS_ITS | Encounter Summary ---
Author Name [facility] [place] [facility] [place] Address [address] [place] [address] Care Team Providers Care Arc Air Operator Name Role Phone ROMANA GOLDSTEIN Primary [...] PART A Jul 21, 2007 PART A [id number] [phone] PRATEEK COHN PATIENT Selected Encounter This section includes the information on record at [place] for the Encounter. Date/Time Encounter Type Encounter Description Reason Provider Source Dec 20, 2023 03:34 PM CASE MANAGEMENT PHYSICAL THERAPY ICD-10-CM Z74.09 Other reduced mobility VERONICA KING E Encounter Template Text not used by [place] Assessments - Encounter Diagnoses This section includes the primary and secondary diagnoses documented for the Encounter. Date/Time Primary/Secondary Diagnosis Diagnosis Name Provider Source Dec 20, 2023 03:44 PM PRIMARY Other reduced mobility VERONICA KING [facility] Plan of Treatment: Future Appointments (+ 6 months) and Future Tests (+/- 45 days) The Plan of Treatment section includes future care activities for the patient from all [place] treatmentfacilities. This section includes future appointments and future orders which are active, pending or scheduled. Future Appointments This section includes appointments that were scheduled to occur 6 months from the date of the Encounter, up to a maximum of 20 appointments. The data comes from all [place] treatment facilities. Appointment Date/Time Appointment Type Appointme nt Facility Name Dec 29, 2023 07:00 AM AMBULATORY - NONE [facility] Jan 11, 2024 01:00 PM AMBULATORY - MEDICINE [facility] ([facility]) Jan 11, 2024 02:30 PM AMBULATORY - PS[facility]CHIATRY [facility] ([facility]) Jan 25, 2024 11:44 AM AMBULATORY - NONE [facility] Jan 31, 2024 09:00 AM AMBULATORY - PS[facility]CHIATRY [facility] ([facility]) Jan 31, 2024 09:01 AM AMBULATORY - [facility]ATRY [place] [facility] Social History: Smoking Status (Most current) and Tobacco Use (All prior to encounter date) This section includes the most current, and the historical, smoking and tobacco- related health factors from the [place] facility where the Encounter took place. Current Smoking Status This section includes the most current smoking, or tobacco-related health factor, from the [place] facility where the Encounter took place. Date/Time Current Smoking Status Comment Facil ity Dec 01, 2017 02:51 PM LIFETIME NON-TOBACCO USER [facility] Tobacco Use History This section includes a history of the smoking, or tobacco-related health factors, that were collected on or before the date of the Encounter. The data comes from the [place] facility where the Encounter took place. Date/Time Smoking Status/Tobacco Use Comment F acility Aug 10, 2016 09:08 AM FORMER TOBACCO USER 7Y OR GREATE R [facility] Aug 10, 2016 09:08 AM LIFETIME NON-TOBACCO USER [facility] Sep 06, 2014 08:19 AM FORMER TOBACCO USER 7Y OR GREATE R [facility] Dec 09, 2011 01:28 PM FORMER TOBACCO USER 7Y OR GREATE R [facility] Encounter Notes: All associated encounter notes This [...] x 5 (no location indicated), dressing stick, Tumbling Instructor, gait belt, long handled shoe horn, commode chair, hand held shower hose, hospital bed, Tumbling Instructor PERTINENT 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 CONSULTS PLACED: pt lift with divided leg sling, tub transfer bench, dressing stick, Tumbling Instructor, gait belt, long handled shoe horn, commode chair, hand held shower hose, hospital bed, Tumbling Instructor Address verified, therapist notified, and documentation saved in ECR PMR THERAPY folder. TOTAL TIME CASE MGMT: 15' /dexter/ LAILA KING DOCTORATE PHYSICAL THERAPIST, CLT Signed: 12/20/2023 15:44 LAILA KING [facility]
--- OUTSIDE RECORDS SUMMARY | 2024-03-22 10:52 | XMS_ITS | Encounter Summary ---
Author Name [facility] [place] Organization [facility] [place] [facility] [place] Address [address], [place] [address] Care Team Providers Care Radio News Writer Name Role Phone ROMANA GOLDSTEIN Primary [...] PART A Jul 21, 2007 PART A [phone] PRATEEK COHN PATIENT Selected Encounter This section includes the information on record at [place] for the Encounter. Date/Time Encounter Type Encounter Description Reason Pro vider Source Dec 23, 2023 10:18 AM Outpatient Encounter PRIMARY CARE/MEDICINE [facility] Encounter Template Text not used by [place] Plan of Treatment: Future Appointments (+ 6 [...] 29, 2023 07:00 AM AMBULATORY - NONE [facility] Jan 11, 2024 01:00 PM AMBULATORY - MEDICINE [facility] ([facility]) Jan 11, 2024 02:30 PM AMBULATORY - PSYCHIATRY [facility] ([facility]) Jan 25, 2024 11:44 AM [facility] Jan 31, 2024 09:00 AM AMBULATORY - PSYCHIATRY [facility] ([facility]) Jan 31, 2024 09:01 AM AMBULATORY - [facility]RY [facility] Social History: Smoking Status (Most current) [...] 2017 02:51 PM LIFETIME NON-TOBACCO USER [facility] Tobacco Use History This section includes a history of the smoking, or tobacco-related health factors, that were collected on or before the date of the Encounter. The data comes from the [place] facility where the Encounter took place. Date/Time Smoking Status/Tobacco Use Comment F acility Aug 10, 2016 09:08 AM FORMER TOBACCO USER [address]Y [address] [facility] [facility] Aug 10, 2016 09:08 AM LIFETIME NON-TOBACCO USER [facility] Sep 06, 2014 08:19 AM FORMER TOBACCO USER 7Y OR [facility] [facility] Dec 09, 2011 01:28 PM [facility] Encounter Notes: All associated encounter notes This section contains the clinical notes associated to the Encounter. Date/Time Encounter Note(s) Provider Source Dec 26, 2023 11:58 AM ADDENDUM: LOCAL TITLE: Addendum STANDARD TITLE: ADDENDUM DATE OF NOTE: DEC 26, 2023@11:58:42 ENTRY DATE: DEC 26, 2023@11:58:44 AUTHOR: JUANY BROWNING EXP COSIGNER: URGENCY: STATUS: COMPLETED Highway Patrol Commander informed by [facility] SW of catheter size/type via Teams, per [facility]. Appropriate orders entered. PCP will need to approve. /dexter/ Juany Browning RN [facility] Signed: 12/26/2023 11:59 Receipt Acknowledged By: 12/27/2023 16:37 /es/ Romana Goldstein APRN, CNP --- Original Document --- 12/23/23 SOCIAL WORK PROGRESS NOTE: PCSW spoke with hospital Time Buyer on this day (12/23/23) at [phone] and she stated that she spoke with Veterans and the ramp has been orders and hoping to be placed by 12/24/23 ([facility] notes indicated 12/27/23) and the is hoping the hospital bed is being delivered today (12/23/23). Time Buyer indicated need for Cath supplies and PT and OT, senior underwriter provided PACT's fax number to send the orders to for cath supplies, senior underwriter to update PACT RN on PT/OT needs, she verbalized understanding. This senior underwriter then called and left a HIPPA complaint message for Faviola- 's that I received an update from the hospital social worker masters and to call me with any questions at [phone]. Plan: - PCSW is kindly cosigning PACT RN to place new consult for PT, OT, SNV and cath orders. - PCSW to remain available. /es/ ADELSO Sandoval Primary Care Time Buyer Signed: 12/23/2023 10:19 Receipt Acknowledged By: 12/23/2023 14:11 /es/ Juany Browning RN [facility] for DANA AGUIRRE 12/23/2023 14:11 /dexter/ Juany Browning RN [facility] 12/23/2023 ADDENDUM STATUS: COMPLETED At the time of this note, no fax yet received from [facility] with i/o catheter orders, etc. Highway Patrol Commander did find instructions for i/o cathing on [facility] (catheter size/type not found). Consult placed for skilled HH services (SN, PT, OT). CITC RN is handling non-skilled HH consult. Highway Patrol Commander will place order for i/o catheter if it is received before leaving today. Otherwise, PACT can place order early next week. /adriano Browning RN [facility] Signed: 12/23/2023 14:18 Receipt Acknowledged By: 12/26/2023 13:08 /adriano AGUIRRE RN, BSN Staff Nurse 12/23/2023 14:36 /adriano PATHAK RN [facility] Sandstone Inspector Repairer 12/26/2023 07:49 /ADELSO Banks Primary Care Time Buyer JUANY BROWNING ALLEN ([facility]) Dec 23, 2023 02:12 PM ADDENDUM: LOCAL TITLE: Addendum STANDARD TITLE: ADDENDUM DATE OF NOTE: DEC 23, 2023@14:12:55 ENTRY DATE: DEC 23, 2023@14:12:56 AUTHOR: JUANY BROWNING EXP COSIGNER: URGENCY: STATUS: COMPLETED At the time of this note, no fax yet received from [facility] with i/o catheter orders, etc. Highway Patrol Commander did find instructions for i/o cathing on [employer] (catheter size/type not found). Consult placed for skilled HH services (SN, PT, OT). CITC RN is handling non-skilled HH consult. Highway Patrol Commander will place order for i/o catheter if it is received before leaving today. Otherwise, PACT can place order early next week. /adriano Browning RN [facility] Signed: 12/23/2023 14:18 Receipt Acknowledged By: 12/26/2023 13:08 /adriano AGUIRRE RN, BSN Staff Nurse 12/23/2023 14:36 /adriano PATHAK RN Community Sandstone Inspector Repairer 12/26/2023 07:49 /ADELSO Banks Primary Care Time Buyer --- Original Document --- 12/23/23 SOCIAL WORK PROGRESS NOTE: PCSW spoke with hospital Time Buyer on this day (12/23/23) at [phone] and she stated that she spoke with [employer] and the ramp has been orders and hoping to be placed by 12/24/23 ([facility] notes indicated 12/27/23) and the is hoping the hospital bed is being delivered today (12/23/23). Time Buyer indicated need for Cath supplies and PT and OT, senior underwriter provided PACT's fax number to send the orders to for cath supplies, senior underwriter to update PACT RN on PT/OT needs, she verbalized understanding. This senior underwriter then called and left a HIPPA complaint message for [place]aviola- 's that I received an update from the hospital social worker masters and to call me with any questions at [phone]. Plan: - PCSW is kindly cosigning PACT RN to place new consult for PT, OT, SNV and cath orders. - PCSW to remain available. /dexter/ ADELSO Sandoval Primary Care Time Buyer Signed: 12/23/2023 10:19 Receipt Acknowledged By: 12/23/2023 14:11 /dexter/ Juany Browning RN [facility] for DANA AGUIRRE 12/23/2023 14:11 /adriano Browning RN [facility] 12/26/2023 ADDENDUM STATUS: COMPLETED Highway Patrol Commander informed by [facility] SW of catheter size/type via Teams, per [facility]. Appropriate orders entered. PCP will need to approve. /adriano Browning RN [facility] Signed: 12/26/2023 11:59 Receipt Acknowledged By: * AWAITING SIGNATURE * ROMANA GOLDSTEIN DAMON W ALLEN ([facility]) Dec 23, 2023 10:18 AM SOCIAL WORK NOTE: LOCAL TITLE: SOCIAL WORK PROGRESS NOTE STANDARD TITLE: SOCIAL WORK NOTE DATE OF NOTE: DEC 23, 2023@10:18 ENTRY DATE: DEC 23, 2023@10:18:52 AUTHOR: ELLEN LEON COSIGNER: URGENCY: STATUS: COMPLETED SOCIAL WORK PROGRESS NOTE Has ADDENDA PCSW spoke with hospital Time Buyer on this day (12/23/23) at [phone] and she stated that she spoke with [employer] and the ramp has been orders and hoping to be placed by 12/24/23 ([facility] notes indicated 12/27/23) and the is hoping the hospital bed is being delivered today (12/23/23). Time Buyer indicated need for Cath supplies and PT and OT, senior underwriter provided PACT's fax number to send the orders to for cath supplies, senior underwriter to update PACT RN on PT/OT needs, she verbalized understanding. This senior underwriter then called and left a [facility] for [facility]avi[facility]- 's that I received an update from the hospital social worker masters and to call me with any questions at [phone]. Plan: - PCSW is kindly cosigning PACT RN to place new consult for PT, OT, SNV and cath orders. - PCSW to remain available. /ADELSO Banks Primary Care Time Buyer Signed: 12/23/2023 10:19 Receipt Acknowledged By: 12/23/2023 14:11 /adriano Browning RN [facility] for DANA AGUIRRE 12/23/2023 14:11 /adriano Browning RN [facility] 12/23/2023 ADDENDUM STATUS: COMPLETED At the time of this note, no fax yet received from [facility] with i/o catheter orders, etc. Highway Patrol Commander did find instructions for i/o cathing on [facility] (catheter size/type not found). Consult placed for skilled HH services (SN, PT, OT). CITC RN is handling non-skilled HH consult. Highway Patrol Commander will place order for i/o catheter if it is received before leaving today. Otherwise, PACT can place order early next week. /adriano Browning RN [facility] Signed: 12/23/2023 14:18 Receipt Acknowledged By: * AWAITING SIGNATURE * DANA AGUIRRE 12/23/2023 14:36 /adriano PATHAK RN Community Sandstone Inspector Repairer 12/26/2023 07:49 /ADELSO Banks Primary Care Time Buyer 12/26/2023 ADDENDUM STATUS: COMPLETED Highway Patrol Commander informed by [facility] SW of catheter size/type via Teams, per [facility]. Appropriate orders entered. PCP will need to approve. /dexter/ Juany Browning RN [facility] Signed: 12/26/2023 11:59 Receipt Acknowledged By: * AWAITING SIGNATURE * ROMANA GOLDSTEIN ADRIANA D ALLEN ([facility])
--- OUTSIDE RECORDS SUMMARY | 2024-03-22 10:52 | XMS_ITS | Continuity of Care Document ---
Author Name [facility] Organization [facility] Care Team Providers Care Bessemer Bottom Maker Name Role Phone [facility] Unavailable Unavailable Problems Combined list of problems from Department of [facility] and [facility] facilities. It does not include entries that were removed or entered in error. 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 [place] ([facility]) Atypical Chest Pain (ICD-9-CM 786.59) Inactive Condition 09/07/2021 [facility] Elevated blood pressure reading without diagnosis of hypertension Inactive Condition 09/07/2021 [facility] Routine General Medical Examination at a Health Care Facility * Inactive Condition 09/07/2021 [facility] Seasonal allergy Inactive Condition 09/07/2021 [facility] 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) Inactive Condition 09/07/2021 [facility] Diagnosis: ICD-10-CM F03.90 Unsp dementia, unsp severity, without beh/psych/mood/an x Active Diagnosis [place] ([facility]) Diagnosis: ICD-10-CM S06.6X9S Traum subrac hem w LOC of unsp duration, sequela Active Diagnosis [place] ([facility]) Diagnosis: ICD-10-CM Z74.09 Other reduced mobility Active Diagnosis [facility] Diagnosis: ICD-10-CM S06.2XAA Diffuse TBI with LOC status unknown, initial encounter Active Diagnosis [facility] ([facility]) Medications Combined list of outpatient medications from Department of [facility] and [facility] facilities.Medications provided include 1) outpatient medications from the last 15 months, and 2) patient-reported medications. Medication Details Route Status Patient Instructions Prescription Expires Prescription Number Last Dispense Date Ordering Provider Order Date Order Qty Source HYDROCORTIS ONE 2.5% CREAM,TOP HYDROCOR TISONE 2.5% CREAM,TO P Active APPLY THIN LAYER TOPICALL Y TWICE A DAY NEEDED FOR ITCHING FOR ITCHING Mar 20, 2024 30 Mar 21, 2025 [id number] Mar 21, 2024 Gurjit GOLDSTEIN [facility] ([facility]) TOPICA L ACTIVE 03/21/2025 [id number] TRISTON,AL ICIA ANANTH 2023 30 [facility] ([facility]) LUBRICATING JELLY,TOP,B ACTERIOSTAT IC LUBRICAT ING JELLY,TO P,BACTER IOSTATIC Active APPLY JELLY TOPICALL Y DIRECTED FOR LUBRICAT ION FOR LUBRICAT ION Dec 26, 2023 120 Dec 26, 2024 [id number] Dec 27, 2023 Gurjit GOLDSTEIN [facility] ([facility]) TOPICA L ACTIVE 12/26/2024 [id number] TRISTON,AL ICIA ANANTH 2023 120 [facility] ([facility]) POVIDONE IODINE 10% SWABSTICK,T OP POVIDONE IODINE 10% SWABSTIC K,TOP Active APPLY 1 SWAB FOUR TIMES A DAY FOR INTERMIT TENT CATHING INTERMIT TENT CATHING. Dec 26, 2023 120 Dec 26, 2024 [id number] Dec 27, 2023 Gurjit GOLDSTEIN [facility] ([facility]) TOPICA L ACTIVE 12/26/2024 [id number] TRISTON,AL ICIA ANANTH 2023 120 [facility] ([facility]) SILDENAFIL CITRATE 25MG TAB SILDENAF IL CITRATE 25MG TAB TAKE ONE TABLET BY MOUTH WEEKLY NEEDED FOR ERECTILE DYSFUNCT ION FOR ERECTILE DYSFUNCT ION Jan 11, 2023 18 Jan 12, 2024 [id number] Jan 11, 2023 Gurjit GOLDSTEIN [facility] ([facility]) ORAL 01/12/2024 [id number] JOSSE GOLDSTEIN ICIA ANANTH 2022 18 [facility] ([facility]) Immunizations Combined list of available immunizations from the Department of Defense and Veterans Affairs facilities. Immunization Series Date Given Administered By Site Reaction Lot Number CVX Code Drug Chemical Operations Specialist Status Comments Source TDAP 2023 115 complet ed [facility] TDAP 2021 115 complet ed [facility] TD (ADULT), 2 LF TETANUS TOXOID, PRESERVATIVE FREE, ADSORBED 2003 09 complet ed [facility] Vital Signs Combined list of inpatient and outpatient Vital Signs from Department of Defense and [facility], ranging from 12 months to all on record, depending upon the facility. Vital Sign Value Date Comments Source SYSTOLIC BLOOD PRESSURE 146 01/11/2024 13:31:48 [facility] ([facility]) DIASTOLIC BLOOD PRESSURE 73 01/11/2024 13:31:48 [facility] ([facility]) PULSE OXIMETRY 96 01/11/2024 13:31:48 [facility] [place] ([facility]) WEIGHT 183.8 01/11/2024 13:31:48 [facility] ([facility]) BMI 26kg/m2 01/11/2024 13:31:48 [facility] ([facility]) PAIN 0 01/11/2024 13:31:48 [facility] ([facility]) TEMPERATURE 97.2 01/11/2024 13:31:48 [facility] ([facility]) PULSE 81 01/11/2024 13:31:48 [facility] ([facility]) RESPIRATION 18 01/11/2024 13:31:48 [facility] ([facility]) Encounters Combined list of: 1) Encounters from Department of Veterans Affairs facilities going back up to thelast 18 months. 2) Encounters from the Department of Defense facilities going back up to 280 months. Location Location Details Encounter Type Encounter Number Reason For Visit Attending Provider ADM Date DC Date Status Disposition Source [facility] Outpatient Encounter [id number] 01/07 [facility] [place] [facility] Outpatient Encounter [id number] 03/30 [facility] [place] [facility] Outpatient Encounter [id number] 05/26 [facility] [place] [facility] Outpatient Encounter [id number] 07/19 [facility] [place] [facility] Outpatient Encounter [id number] 09/20 [facility] [place] [facility] Outpatient Encounter [id number] 11/22 [place] [facility] [place] [facility] Outpatient Encounter [id number] 11/29 [place] [facility] [place] [facility] Outpatient Encounter [id number] PARI ESPINOSA 11/30 [place] [facility] [place] [facility] Outpatient Encounter [id number] 12/01 [place] [facility] [place] [facility] Outpatient Encounter [id number] 12/05 [place] [facility] [place] [facility] Outpatient Encounter [id number] 12/08 [place] [facility] [place] [facility] Outpatient Encounter [id number] 12/12 [place] [facility] PRO PHONE CALL 21-30 MIN [id number] Diagnos is: ICD-10- CM S06.2XA A Diffuse TBI with LOC status unknown , initial encount er
DARVIN AGUIRRE 12/14 [place] ([facility] [place] [facility] Outpatient Encounter [id number] 12/19 [place] [facility] [place] [facility] CASE MANAGEMENT [id number] Diagnos is: ICD-10- CM Z74.09 Other reduced mobilit y
ADAMI-OSSLAILA M 12/19 [place] [facility] [place] [facility] CASE MANAGEMENT [id number] Diagnos is: ICD-10- CM Z74.09 Other reduced mobilit y
ADAMI-OSS, LAILA M 12[facility]20 [facility] [place] [facility] Outpatient Encounter [id number] 12/22 [place] [facility] [place] [facility] Outpatient Encounter [id number] 12/22 [place] [facility] [place] [facility] Outpatient Encounter [id number] 12/22 [place] [facility] [place] [facility] Outpatient Encounter [id number] Gurjit PATHAK 12[facility]22 [facility] [place] [facility] Outpatient Encounter [id number] 12/29 [place] [facility] [place] [facility] Outpatient Encounter [id number] 01/01 [facility] ([facility]) OFFICE O/P EST HI 40 MIN [id number] Diagnos is: ICD-10- CM S06.6X9 S Traum subrac hem w LOC of unsp duratio n, sequela
HORACE GOLDSTEIN CIA 01/10 [place] ([facility]) [facility] Outpatient Encounter [id number] 01/10 [facility] ([facility]) HEALTH ASSESS BY MYAH [id number] Diagnos is: ICD-10- CM F03.90 Unsp dementi a, unsp severit y, without beh/psy ch/mood /anx
CLEMENT GIRON 01/10 [place] [facility] ([facility]) [facility] Outpatient Encounter [id number] HORACE GOLDSTEIN CIA 01/10 [facility] Outpatient Encounter [id number] Alexandrea BURRELL 01/24 [facility] Outpatient Encounter [id number] 01/30 [facility] Social History Combined list of available smoking, tobacco, and other social history from Department of Defense and Veterans Affairs facilities. Social History Type Response Date Comment Sourc e Tobacco smoking status [facility] VA-TOBACCO NEVER USED 01/11/2024 [place] ([facility]) History of tobacco use VA-TOBACCO NEVER USED 09/07/2021 [place] ([facility]) History of tobacco use LIFETIME NON-TOBA STUDENT LIFE DEAN USER 12/01/2017 [facility] History of tobacco use LIFETIME NON-TOBA STUDENT LIFE DEAN USER 08/10/2016 [facility] History of tobacco use FORMER TOBACCO US ER 7Y OR GREATER 09/06/2014 [facility] History of tobacco use FORMER TOBACCO US ER 7Y OR GREATER 12/09/2011 [facility]
--- OUTSIDE RECORDS SUMMARY | 2024-03-22 10:52 | XMS_ITS | Encounter Summary ---
Author Name [facility] [place] [facility] [place] [facility] [place] Address [address], [place] [address] Care Team Providers Care Learning Center Instructor Name Role Phone ROMANA GOLDSTEIN Primary Care [...] PART A Jul 21, 2007 PART A [id number] [phone] PRATEEK COHN PATIENT Selected Encounter This section includes the information on record at [place] for the Encounter. Date/Time Encounter Type Encounter Description Reason Pro vider Source Dec 23, 2023 09:34 AM Outpatient Encounter COMMUNITY CARE CONSULT IHE Encounter Template Text not used by [place] Plan of Treatment: Future Appointments (+ 6 months) and Future Tests (+/- 45 days) The Plan of Treatment section includes future care activities for the patient from all [place] treatmentfacilities. This section includes future appointments and future orders which are active, pending or scheduled. Future Appointments This section includes appointments that were scheduled to occur 6 months from the date of the Encounter, up to a maximum of 20 appointments. The data comes from all [place] treatment facilities. Appointment Date/Time Appointment Type Appointme nt Facility Name Dec 29, 2023 07:00 AM AMBULATORY - NONE [facility] Jan 11, 2024 01:00 PM AMBULATORY - MEDICINE [facility] ([facility]) Jan 11, 2024 02:30 PM AMBULATORY - PSYCHIATRY [facility] ([facility]) Jan 25, 2024 11:44 AM AMBULATORY - NONE [facility] Jan 31, 2024 09:00 AM AMBULATORY - PSYCHIATRY [facility] ([facility]) Jan 31, 2024 09:01 AM AMBULATORY [place] [facility] Social History: Smoking Status (Most current) and Tobacco Use (All prior to encounter date) This section includes the most current, and the historical, smoking and tobacco- related health factors from the [place] facility where the Encounter took place. Current Smoking Status This section includes the most current smoking, or tobacco-related health factor, from the [place] facility where the Encounter took place. Date/Time Current Smoking Status Comment Facil ity Dec 01, 2017 02:51 PM LIFETIME NON-TOBACCO USER [facility] Tobacco Use History This section includes a history of the smoking, or tobacco-related health factors, that were collected on or before the date of the Encounter. The data comes from the [place] facility where the Encounter took place. Date/Time Smoking Status/Tobacco Use Comment F acility Aug 10, 2016 09:08 AM FORMER TOBACCO USER 7Y OR GRE[facility] R [facility] Aug 10, 2016 09:08 AM LIFETIME NON-TOBACCO USER [facility] Sep 06, 2014 08:19 AM FORMER TOBACCO USER 7Y OR [facility] Dec 09, 2011 01:28 PM FORMER TOBACCO USER 7 OR [facility] R [facility] Encounter Notes: All associated encounter notes This section contains the clinical notes associated to the Encounter. Date/Time Encounter Note(s) Provider Source Dec 23, 2023 09:34 AM NONVA NOTE: LOCAL TITLE: COMMUNITY CARE-CARE COORDINATION PLAN NOTE STANDARD TITLE: NONVA NOTE DATE OF NOTE: DEC 23, 2023@09:34 ENTRY DATE: DEC 23, 2023@09:35:06 AUTHOR: DANA PATHAK COSIGNER: URGENCY: STATUS: COMPLETED COMMUNITY CARE-CARE COORDINATION [...] ALL requested/ordered services (i.e.: specific reason/indication for fci, specific wound care orders, etc.). Please place a new Community Home Health Care Referral-Skilled using the above directions. Thank you. /dexter/ DANA PATHAK RN Community Asphalt Paving Superintendent Signed: 12/23/2023 09:35 Receipt Acknowledged By: 12/23/2023 14:36 /dexter/ JEEVAN HICKEY NURSE PRACTITIONER for ROMANA GOMESNIS 12/23/2023 10:24 /dexter/ Garrett Browning RN [facility] for DANA AGUIRRE 12/23/2023 ADDENDUM STATUS: COMPLETED Director Engineering aware of the above; also cosigned to today's note from [facility] SW. Currently awaiting orders from [facility] via fax. /dexter/ Garrett Browning RN [facility] Signed: 12/23/2023 10:[address] [facility]
--- OUTSIDE RECORDS SUMMARY | 2024-03-22 10:52 | XMS_ITS | Encounter Summary ---
Author Name [facility] [place] [facility] [place] [facility] [place] Address [address] [place] [address] Care Team Providers Care Global Account Director Name Role Phone TRISTONHORACE CASPERCIA Primary Care [...] PART A Jul 21, 2007 PART A [id number] [phone] PRATEEK COHN PATIENT Selected Encounter This section includes the information on record at [place] for the Encounter. Date/Time Encounter Type Encounter Description Reason Provider Source Dec 15, 2023 11:33 AM HC PRO PHONE CALL 21-30 MIN TELEPHONE PRIMARY CARE ICD-10-CM S06.2XAA Diffuse TBI with LOC status unknown, initial encounter DANA AGUIRRE Encounter Template Text not used by [place] Assessments - Encounter Diagnoses This section includes [...] care activities for the patient from all [place] treatmentfacilities. This section includes future appointments and future orders which are active, pending or scheduled. Future Appointments This section includes appointments that were scheduled to occur 6 months from the date of the Encounter, up to a maximum of 20 appointments. The data comes from all [place] treatment facilities. Appointment Date/Time Appointment Type Appointme nt Facility Name Dec 29, 2023 07:00 AM AMBULATORY - NONE [facility] Jan 11, 2024 01:00 PM AMBULATORY - MEDICINE [facility] ([facility]) Jan 11, 2024 02:30 PM AMBULATORY - PSYCHIATRY [facility] ([facility]) Jan 25, 2024 11:44 AM AMBULATORY - NONE [facility] Jan 31, 2024 09:00 AM AMBULATORY - PSYCHIATRY [facility] ([facility]) Jan 31, 2024 09:01 AM AMBULATORY [place] [facility] Social History: Smoking Status (Most current) and Tobacco Use (All prior to encounter date) This section includes the most current, and the historical, smoking and tobacco- related health factors from the [place] facility where the Encounter took place. Current Smoking Status This section includes the most current smoking, or tobacco-related health factor, from the [place] facility where the Encounter took place. Date/Time Current Smoking Status Comment Yann carissa Sep 07, 2021 08:00 AM [place]-TO[place]CO NEVER USED [place] ([facility]) Encounter Notes: All associated encounter notes This section contains the clinical notes associated to the Encounter. Date/Time Encounter Note(s) Provider Source Dec 15, 2023 11:33 AM PRIMARY CARE SIMA ART NOTE: LOCAL TITLE: [facility] NURSING PROGRESS NOTE STANDARD TITLE: PRIMARY CARE NURSING NOTE DATE OF NOTE: DEC 15, 2023@11:33 ENTRY DATE: DEC 15, 2023@11:33:40 AUTHOR: DANA AGURIRE COSIGNER: URGENCY: STATUS: COMPLETED Notified from delinquency prevention social worker of discharging needs from . Edna suffered a fall on 11/23 and has been hospitilized since. He will require care when he goes home, which will be provided by his and son but also needing home care as well. [place] records reviewed. Elian would benefit from PT, OT, CRIME SPECIALIST/HHM, respite and as well as multiple DME [...] placed as well. Call time: 24 minutes. /dexter/ DANA AGUIRRE RN, BSN Staff Nurse Signed: 12/15/2023 11:43 DANA AGUIRRE ([facility])
--- OUTSIDE RECORDS SUMMARY | 2024-03-22 10:52 | XMS_ITS | Encounter Summary ---
Author Name [facility] [place] [facility] [place] [facility] [place] Address [address], [place] [address] Care Team Providers Care Civil Engineering Professional Name Role Phone HAYLEY GOLDSTEIN Primary Care [...] PART A Jul 21, 2007 PART A [id number] [phone] PRATEEK COHN PATIENT Selected Encounter This section includes the information on record at [place] for the Encounter. Date/Time Encounter Type Encounter Description Reason Pro vider Source Dec 13, 2023 11:59 AM Outpatient Encounter TELEPHONE PRIMARY CARE IHE Encounter Template Text not used by [place] Plan of Treatment: Future Appointments (+ 6 months) and Future Tests (+/- 45 days) The Plan of Treatment section includes future care activities for the patient from all [place] treatmentfacilities. This section includes future appointments and future orders which are active, pending or scheduled. Future Appointments This section includes appointments that were scheduled to occur 6 months from the date of the Encounter, up to a maximum of 20 appointments. The data comes from all [place] treatment facilities. Appointment Date/Time Appointment Type Appointme nt Facility Name Dec 29, 2023 07:00 AM AMBULATORY - NONE [facility] Jan 11, 2024 01:00 PM AMBULATORY - MEDICINE [facility] ([facility]) Jan 11, 2024 02:30 PM AMBULATORY - PSYCHIATRY [facility] ([facility]) Jan 25, 2024 11:44 AM AMBULATORY - NONE [facility] Jan 31, 2024 09:00 AM AMBULATORY - PSYCHIATRY [facility] ([facility]) Jan 31, 2024 09:01 AM AMBULATORY [place] [facility] Social History: Smoking Status (Most current) and Tobacco Use (All prior to encounter date) This section includes the most current, and the historical, smoking and tobacco- related health factors from the [place] facility where the Encounter took place. Current Smoking Status This section includes the most current smoking, or tobacco-related health factor, from the [place] facility where the Encounter took place. Date/Time Current Smoking Status Comment Facil ity Dec 01, 2017 02:51 PM LIFETIME NON-TOBACCO USER [facility] Tobacco Use History This section includes a history of the smoking, or tobacco-related health factors, that were collected on or before the date of the Encounter. The data comes from the [place] facility where the Encounter took place. Date/Time Smoking Status/Tobacco Use Comment F acility Aug 10, 2016 09:08 AM FORMER TOBACCO USER 7Y OR GREATE R [facility] Aug 10, 2016 09:08 AM LIFETIME NON-TOBACCO USER [facility] Sep 06, 2014 08:19 AM FORMER TOBACCO USER 7Y OR GREATE [facility] Dec 09, 2011 01:28 PM FORMER TOBACCO USER 7Y OR [facility] R [facility] Encounter Notes: All associated encounter notes This section contains the clinical notes associated to the Encounter. Date/Time Encounter Note(s) Provider Source Dec 13, 2023 11:59 AM SOCIAL WORK NOTE: LOCAL TITLE: SOCIAL WORK PROGRESS NOTE STANDARD TITLE: SOCIAL WORK NOTE DATE OF NOTE: DEC 13, 2023@11:59 ENTRY DATE: DEC 13, 2023@11:59:07 AUTHOR: ELLEN LEON COSIGNER: URGENCY: STATUS: COMPLETED PCSW received message from Beverly's stating she does not think she needs home RN for Beverly when he returns home and she needs a ramp and gait belt. This display card writer placed return call to her on this day (12/13/23) at [phone] and spoke with her regarding discharge plan. Kenny- 's stated that her son is coming home for 1/2 weeks and she feels that between the 2 of them they wouldn't need the home nursing. Analyst Geochemical Prospecting review with spouse that it may take awhile for [facility] to get [facility] care ordered and in the home and suggested she consider having the consult placed, meet with the director of home economics and then work with them on how often the home care comes out and when they start. Kenny stated that sounded like a good plan and agreed to keep the request for home RN and EDITOR GREETING CARD (along with PT and OT). Kenny also stated she needs a ramp, pivot disk and gait belt, display card writer verbalized understanding and deferred to [facility] Project Scientist as their therapist is going to be the one placing the orders. Analyst Geochemical Prospecting informed Kenny I would place a call and talk with [facility] Project Scientist about requesting this from the hospital therapy staff, she verbalized understanding. Kenny- Emili's spouse had no further questions at the time of visit. Analyst Geochemical Prospecting then placed call to Hayley the [facility] Project Scientist, provided above update. She is going to request the order for ramp, and gait belt and discuss the pivot disk option with therapy. She noted she is having a difficult time getting the therapist to complete the form but will approach them again today. Hayley had no further questions at the time of visit. PCSW to remain available. /dexter/ ADELSO [facility] Project Scientist Signed: 12/13/2023 11:59 ELLEN LEON ([facility])
--- OUTSIDE RECORDS SUMMARY | 2024-03-22 10:52 | XMS_ITS | Encounter Summary ---
Author Name [facility] [place] Organization [facility] [place] [facility] [place] Address [address], [place] [address] Care Team Providers Care Headline Writer Name Role Phone ROMANA GOLDSTEIN Primary [...] PART A Jul 21, 2007 PART A [id number] [phone] PRATEEK COHN PATIENT Selected Encounter This section includes the information on record at ME for the Encounter. Date/Time Encounter Type Encounter Description Reason Pro vider Source Dec 23, 2023 11:36 AM Outpatient Encounter COMMUNITY CARE CONSULT IHE Encounter Template Text not used by ME Plan of Treatment: Future Appointments (+ 6 months) and Future Tests (+/- 45 days) The Plan of Treatment section includes future care activities for the patient from all [place] treatmentfacilities. This section includes future appointments and future orders which are active, pending or scheduled. Future Appointments This section includes appointments that were scheduled to occur 6 months from the date of the Encounter, up to a maximum of 20 appointments. The data comes from all [place] treatment facilities. Appointment Date/Time Appointment Type Appointme nt Facility Name Dec 29, 2023 07:00 AM AMBULATORY - NONE [facility] Jan 11, 2024 01:00 PM AMBULATORY - MEDICINE [facility] [facility] ([facility]) Jan 11, 2024 02:30 PM AMBULATORY - PS[place]CHIATRY [place] ([facility]) Jan 25, 2024 11:44 AM [facility] Jan 31, 2024 09:00 AM AMBULATORY - PS[facility]CHIATRY [place] ([facility]) Jan 31, 2024 09:01 AM AMB[place]ORY - [place] [facility] Social History: Smoking Status (Most [...] 01, 2017 02:51 PM LIFETIME NON-TOBACCO USER [facility] Tobacco Use History This section includes a history of the smoking, or tobacco-related health factors, that were collected on or before the date of the Encounter. The data comes from the [place] facility where the Encounter took place. Date/Time Smoking Status/Tobacco Use Comment F acility Aug 10, 2016 09:08 AM FORMER TOBACCO USER 7Y OR GREATE R [facility] Aug 10, 2016 09:08 AM LIFETIME NON-TOBACCO USER [facility] Sep 06, 2014 08:19 AM FORMER TOBACCO USER 7Y OR GREATE R [facility] Dec 09, 2011 01:28 PM FORMER TOBACCO USER 7 OR [facility] Encounter Notes: All associated encounter notes This section contains the clinical notes associated to the Encounter. Date/Time Encounter Note(s) Provider Source Dec 23, 2023 11:36 AM NONVA NOTE: LOCAL TITLE: COMMUNITY CARE-CARE COORDINATION PLAN NOTE STANDARD TITLE: NONVA NOTE DATE OF NOTE: DEC 23, 2023@11:36 ENTRY DATE: DEC 23, 2023@11:36:37 AUTHOR: DANA PATHAK COSIGNER: URGENCY: STATUS: COMPLETED Potato Chip Fryer has been in contact with veterans with in attempts to set up home care. Have also been in contact with [facility] Romana CONTRERAS and [place] Clara CONTRERAS in attempts to correctly set up home care so that his complex needs are met. This has proven to be difficult d/t inaccurate information given to ad writer from pt. at times. Pt.'s requested [facility] home care, stated she worked for them, and has a friend there that was willing to do the home care for pt. After speaking with Marcella at [facility], was thinking that the [place] would pay for 2- 8 hr shifts of skilled respite care per week. Potato Chip Fryer informed Mazie that [place] would most likely pay for 16 hrs a week of PCS (MANAGER BASKETBALL or respite) services given pt.'s high needs, but not 16 hrs of skilled care. Marcella told ad writer, given that info, they would not be accepting the referral and they do not have MANAGER BASKETBALL available in [place], where pt. lives. Potato Chip Fryer relayed this message to via . Received a call from BEN Hardy working with family at [facility], where pt. is hospitalized. Romana stated that the wanted to use the agency [facility], and wants her friend Ana Jaegerliss ([facility]) to be the pt's MANAGER BASKETBALL. Potato Chip Fryer was told to call Mani at [facility]. Potato Chip Fryer called Mani, agency is closed today, however Mani did answer. Stated he knows nothing about this referral, and doesnt know who Ana Fischer is, but will try to make it work and did accept the referral. There is also a skilled referral entered for pt. stated she was an RN and can handle the skilled things, like meds and his catheter, so that was not needed. When speaking to the BEN at [facility] she the definately do need the skilled referral. Explained to BEN at [facility], they will have to inform pt.'s PCP at [place] of all the services needed so they can all be entered correctly on the consult for a home care agency. In speaking with Clara CONTRERAS today. Pt. will be discharged some time next week. He will need a wc ramp installed, a hospital bed, and for his son to get there from [place] before pt. can dc to home. The longe term plan is for the Son's home in [place] to be remodeled, and then the he will have the pt. and his mom move there with him. At this time- Referral will be sent to [facility] for non-skilled. Wait for PACT to enter a new referral for skilled with all the serivices needed. /dexter/ DANA PATHAK utilization coordinator Stadium Manager Signed: 12/23/2023 12:16 DANA PATHAK [facility]
--- OUTSIDE RECORDS SUMMARY | 2024-03-22 10:53 | XMS_ITS | Encounter Summary ---
Author Organization [facility] Address [address] [place] [address] Care Team Providers Care Print Project Manager Name Role Phone Elsewhere, Pcp Primary Care Provider Unavailabl e Reason for Visit * Reason Onset Date Comments Pre-visit Intake 02/13/2024 Encounter Details Date Type Department Care Team (Latest Contact Info) Description 02/13/2024 2:45 PM CDT Clinical Communication Virtual Review in [place], [place] [address] [place] [address] Pre-visit Intake Social History Tobacco Use Types Packs/Day Years Used Date Smoking Tobacco: Never Assessed Dental Answer Date Recorded Dental: Regular Dentist Unknown 11/23/19 Sex and Gender Information Value Date Recorded Sex Assigned at Not on file Gender Identity Not on file Sexual Orientation Not on file documented as of this encounter Plan of Treatment Not on file documented as of this encounter Visit Diagnoses Not on filedocumented in this encounter Care Teams Print Project Manager Relationship Specialty Start Date End Date Elsewhere, Pcp PCP - General Internal Medicine 11/23/23 documented as of this encounter
--- OUTSIDE RECORDS SUMMARY | 2024-03-22 10:53 | XMS_ITS ---
Author Organization [facility] Address [address] [place] [address] Care Team Providers Care Rotary Cutter Operator Name Role Phone Unavailable Unavailable Unavailable Surgery Details Not on file Complications Check Surgery Details section. Procedure Estimated Blood Loss Check Surgery Details section. Procedure Findings Check Surgery Details section. Procedure Specimens Taken Check Surgery Details section.
--- OUTSIDE RECORDS SUMMARY | 2024-03-22 10:53 | XMS_ITS | Encounter Summary ---
Author Name [facility] [place] [facility] [place] Organization [facility] [place] Address [address] [place] [address] Care Team Providers Care Pile Driver Operator Barge Mounted Name Role Phone ROMANA GOLDSTEIN Primary Care [...] PART A Jul 21, 2007 PART A [id number] [phone] PRATEEK COHN PATIENT Selected Encounter This section [...] unsp severity, without beh/psych/mood/a nx EDVIN GIRON ([facility]) Plan of Treatment: Future Appointments (+ [...] 25, 2024 11:44 AM AMBULATORY - NONE [place] [facility] Jan 31, 2024 09:00 AM AMBULATORY - PS[facility]CHIATRY [facility] ([facility]) Jan 31, 2024 09:01 AM [facility] Vital Signs: All taken on the encounter date This section contains inpatient and outpatient Vital Signs collected on the date of the Encounter. Date/Time Temperature Pulse Blood Pressure Respiratory Rate SP02 Pain Height Weight Body Mass Index Source Jan 11, 2024 01:37 PM 83 131/70 96 [facility] ([facility]) Jan 11, 2024 01:31 PM 97.2 81 146/73 18 96 0 183.8 26 [facility] ([facility]) Social History: Smoking Status [...] Yann ferrer Jan 11, 2024 01:00 PM OR-TOBACCO NEVER USED [place] ([facility]) Tobacco Use History This section includes a history of the smoking, or tobacco-related health factors, that were collected on or before the date of the Encounter. The data comes from the [place] facility where the Encounter took place. Date/Time Smoking Status/Tobacco Use Comment F acility Sep 07, 2021 08:00 AM OR-TOBACCO NEVER USED [place] ([facility])
--- OUTSIDE RECORDS SUMMARY | 2024-03-22 10:53 | XMS_ITS | Clinical Summary ---
Author Organization [facility] Address [address] [place] [address] Care Team Providers Care Watch Crystal Edge Grinder Name Role Phone Elsewhere, Pcp Primary Care Provider Unavailabl e Source Comments Patient records contain information from all sites at [facility]. For routine questions regarding patient records, call [phone] during business hours, M-F 8:00 AM - 5:00 PM Central Time. Record requests for emergency care only can be directed to [phone] at any time.[facility] Allergies No known active allergies Medications Medication [...] mLs (8 ounces) of beverage. 12/27/2023 Active Additional Information Patient not taking.Reported on 02/13/2024 melatonin 5 mg tablet Take 1 tablet (5 mg total) by mouth at bedtime as needed (If having troubles falling asleep). 12/27/2023 Active Additional Information Patient not taking.Reported on 02/13/2024 sennosides (Senokot) 8.6 mg tablet Take 2 tablets (17.2 mg total) by mouth 2 (two) times a day. 12/27/2023 Active Additional Information Patient not taking.Reported on 02/13/2024 finasteride (Proscar) 5 mg tablet Take 1 tablet (5 mg total) by mouth daily. 60 tablet 12/27/2023 Active Additional Information Patient not taking.Reported on 02/13/2024 metoprolol tartrate (Lopressor) 25 mg tablet Take 0.5 tablets (12.5 mg total) by mouth 2 (two) times a day. 60 tablet 12/27/2023 Active Additional Information Patient not taking.Reported on 02/13/2024 tamsulosin (Flomax) 0.4 mg 24 hr capsule Take 2 capsules (0.8 mg total) by mouth daily. 60 capsule 12/27/2023 Active Additional Information Patient not taking.Reported on 02/13/2024 Active Problems Problem Noted Date Diagnosed Date [...] Encounters Date Type Department Care Team Description 02/13/2024 2:45 PM CDT Clinical Communication Virtual Review in [place], [place] [address] [place] [address] Pre-visit Intake 12/28/2023 2:00 PM CDT Virtual Visit Department of Neurologic Surgery in [place], [place] [address] [place] [id number] Harmony Lomas APRN, C.N.P., M.S.N. Hemorrhage Subarachnoid Nontraumatic (HCC) 12/27/2023 Orders Only Department of Orthopedic Surgery in [place], [place] [address] [place] [address] Sera Avila P.A.-C., M.S. Fracture Acetabulum Closed Initial Left (HCC) (Primary Dx) 12/25/2023 10:15 AM CDT Ancillary Procedure Department of Nursing 11/23/2023 12:47 PM CDT - 12/27/2023 10:25 AM CDT Hospital Encounter [facility], [facility], Fifth Floor [address] [place] [address] Carol Miller M.D. Sawyer, Mark D, M.D. Schiller, Henry J, M.D. Stephens, Daniel, M.D. Kim, Brian D, [...] (HCC); Effusion Pleural Discharge Disposition: Home-Health Care [facility] from Last 3 Months Immunizations Name Administration [...] 11/29/2023 1:51 PM CDT Plan of Treatment Health Maintenance Due Date Last Done Comments Zoster Vaccines (1 of 2) 1992 Pneumococcal vaccine (65+ ye ars) (1 of 1 - PCV) 2007 RSV vaccine - (32-3 6 weeks) or 60+ years (1 - 1-dose 75+ series) 2017 Fall Risk Screen (Annual) 06/20/2023 COVID-19 Vaccine ( - 2023- season) 2024 Influenza Vaccine (#1) 2024 DTaP,Tdap,and Td Vaccines (3 - Td or Tdap) 11/22/2033 11/23/2023, 02/04/2022, 09/20/2003 Medical Devices Implanted Type Area Long Wall Shear Operator Device Identifier Shelf Expiration Date Model / Serial / Lot Grft Ost Dbm [facility] 5 - [id number] - [id number] Implanted:Qt y: 1 on 11/25/2023 by Naveed Higuera M.D. at [facility] Bone or Tissue Left: Acetabulum Medtronic 05/29/2028 [id number] / [id number] / Clp Sep [facility] 9.75 - [id number] 3 Implanted:Qt y: 1 on 11/25/2023 by Naveed Higuera M.D. at [facility] Hardware e.g. pins/screws /rods Left: Acetabulum Ethicon [id number] 09/17/2028 [id number] / / [id number] Washr Rnd Ss Elkin Elkin 9x8x3.5 - [id number] Implanted:Qt y: 1 on 11/25/2023 by Naveed Higuera M.D. at [facility] Hardware e.g. pins/screws /rods Left: Acetabulum Tamiko [id number] / / Plt Spctnl Qls 16h Lt - [id number] Implanted:Qt y: 1 on 11/25/2023 by Naveed Higuera M.D. at [facility] Hardware e.g. pins/screws /rods Left: Acetabulum [place] [id number] / / Scrw Axs St Fthrd Lck 3.5x38 - [id number] Implanted:Qt y: 1 on 11/25/2023 by Naveed Higuera M.D. at [facility] Hardware e.g. pins/screws /rods Left: Acetabulum [place] [id number] / / Scrw Axs St Fthrd Lck 3.5x26 - [id number] Implanted:Qt y: 1 on 11/25/2023 by Naveed Higuera M.D. at [facility] Hardware e.g. pins/screws /rods Left: Acetabulum [place] [id number] / / Scrw Axs St Fthrd Lck 3.5x55 - [id number] Implanted:Qt y: 2 on 11/25/2023 by Naveed Higuera M.D. at [facility] Hardware e.g. pins/screws /rods Left: Acetabulum [place] [id number] / / Scrw Axs St Fthrd Lck 3.5x28 - [id number] 3 Implanted:Qt y: 2 on 11/25/2023 by aNveed Higuera M.D. at [facility] Hardware e.g. pins/screws /rods Left: Acetabulum Tamiko [id number] / / Scrw Axs St Fthrd Lck 3.5x34 - [id number] 3 Implanted:Qt y: 1 on 11/25/2023 by Naveed Higuera M.D. at [facility] Hardware e.g. pins/screws /rods Left: Acetabulum [place] [id number] / / Scrw Axs St Fthrd Lck 3.5x90 - [id number] 3 Implanted:Qt y: 1 on 11/25/2023 by Naveed Higuera M.D. at [facility] Hardware e.g. pins/screws /rods Left: Acetabulum [place] [id number] / / Scrw Axs St Fthrd Lck 3.5x95 - [id number] 3 Implanted:Qt y: 1 on 11/25/2023 by Naveed Higuera M.D. at [facility] Hardware e.g. pins/screws /rods Left: Acetabulum Tamiko [id number] / / Scrw Axs St Fthrd Lck 3.5x120 - [id number] Implanted:Qt y: 2 on 11/25/2023 by Naveed Higuera M.D. at [facility] Hardware e.g. pins/screws /rods Left: Acetabulum Tamiko [id number] / / Procedures Procedure Name Priority Date/Time Associated Diagnosis Comments CT HEAD WITHOUT IV CONTRAST RAD - Routine (most inpatients and all outpatients) 12/26/2023 11:13 AM CDT NURSING IMAGE EXAM Routine 12/25/2023 10:12 AM CDT DX PELVIS 3+ VIEWS RAD - Routine (most inpatients and all outpatients) 12/25/2023 8:47 AM CDT BASIC METABOLIC PANEL, S/P Timed 12/24/2023 3:30 PM CDT from Last 3 Months Results [...] hemorrhage seen on12/01/2023 remains absent. Naveed Higuera APRN C.N.P., M.S.N. I MG CT PROCEDURES * [...] Basic Metabolic Panel (12/24/2023 3:30 PM CDT) Pathologist [facility] Potassium, S 4.5 3.6 - 5.2 [...] M.S.N. L AB BLOOD ADD-ON [facility] [address] [place] [address], [place] DTL [facility] [address] [place] [address] from Last 3 Months Advance Directives For more information, please contact: [phone] * Full Code (Latest Code Status on File) Date Activated Date Inactivated Comments 11/23/2023 5:00 PM 12/27/2023 12:36 PM Question Answer Comments Full Code: Discussed Care Teams Watch Crystal Edge Grinder Relationship Specialty Start Date End Date Elsewhere, Pcp PCP - General Internal Medicine 11/23/23
--- OUTSIDE RECORDS SUMMARY | 2024-03-22 10:53 | XMS_ITS | Encounter Summary ---
Author Name [facility] [place] [facility] [place] Organization [facility] [place] Address [address] [facility], [place] [address] Care Team Providers Care Project Geologist Name Role Phone HAYLEY GOLDSTEIN Primary Care [...] PART A Jul 21, 2007 PART A [id number] [phone] PRATEEK COHN PATIENT Selected Encounter This section includes the information on record at [place] for the Encounter. Date/Time Encounter Type Encounter Description Reason Pro vider Source Dec 30, 2023 08:48 AM Outpatient Encounter COMMUNITY CARE CONSULT IHE Encounter Template Text not used by [place] Plan of Treatment: Future Appointments (+ 6 months) and Future Tests (+/- 45 days) The Plan of Treatment section includes future care activities for the patient from all [place] treatmentfacilities. This section includes future appointments and future orders which are active, pending or scheduled. Future Appointments This section includes appointments that were scheduled to occur 6 months from the date of the Encounter, up to a maximum of 20 appointments. The data comes from all [place] treatment facilities. Appointment Date/Time Appointment Type Appointme nt Facility Name Jan 11, 2024 01:00 PM AMBULATORY - MEDICINE [facility] ([facility]) Jan 11, 2024 02:30 PM AMBULATORY - PS[facility]CHIATRY [facility] ([facility]) Jan 25, 2024 11:44 AM AMBULATORY - NONE [place] [facility] Jan 31, 2024 09:00 AM AMBULATORY - PS[place]CHIATRY [place] ([facility]) Jan 31, 2024 09:01 AM AMB[place]ORY - [place] [facility] Social History: Smoking Status (Most current) and Tobacco Use (All prior to encounter date) This section includes the most current, and the historical, smoking and tobacco- related health factors from the [place] facility where the Encounter took place. Current Smoking Status This section includes the most current smoking, or tobacco-related health factor, from the [place] facility where the Encounter took place. Date/Time Current Smoking Status Comment Facil ity Dec 01, 2017 02:51 PM LIFETIME NON-TOBACCO USER [facility] Tobacco Use History This section includes a history of the smoking, or tobacco-related health factors, that were collected on or before the date of the Encounter. The data comes from the [facility] where the Encounter took place. Date/Time Smoking Status/Tobacco Use Comment F acility Aug 10, 2016 09:08 AM FORMER TOBACCO USER 7Y OR GREAT R [facility] Aug 10, 2016 09:08 AM LIFETIME NON-TOBACCO USER [facility] Sep 06, 2014 08:19 AM FORMER TOBACCO USER 7[facility] Dec 09, 2011 01:28 PM FORMER TOBACCO USER 7 OR [facility] Encounter Notes: All associated encounter notes This section contains the clinical notes associated to the Encounter. Date/Time Encounter Note(s) Provider Source Dec 30, 2023 08:48 AM NONVA NOTE: LOCAL TITLE: COMMUNITY CARE-CARE COORDINATION PLAN NOTE STANDARD TITLE: NONVA NOTE DATE OF NOTE: DEC 30, 2023@08:48 ENTRY DATE: DEC 30, 2023@08:48:28 AUTHOR: DNAA PATHAK COSIGNER: URGENCY: STATUS: COMPLETED Spoke with pt. , she called asking if the cath supplies were ordered and going to be mailed to her. Tin Pourer confirmed they are in the mail. She [...] the future. /es/ DANA PATHAK RN Community Supervisor [employer] Department Signed: 12/30/2023 08:53 Receipt Acknowledged By: 12/30/2023 16:06 /es/ Hayley Goldstein APRN, CNP 12/30/2023 09:28 /es/ Naveed Garcia RN [facility] for DANA SANCHEZ [facility]
--- OUTSIDE RECORDS SUMMARY | 2024-03-22 10:53 | XMS_ITS | Encounter Summary ---
Author Name [facility] [place] [facility] [place] [facility] [place] Address [address] [facility], [place] [address] Care Team Providers Care Test Inspection Engineer Name Role Phone ROMANA GOLDSTEIN Primary [...] PART A Jul 21, 2007 PART A [id number] [phone] PRATEEK GRAYSON PATIENT Selected Encounter This section includes the information on record at [place] for the Encounter. Date/Time Encounter Type Encounter Description Reason Provider Source Dec 23, 2023 12:00 PM Outpatient Encounter COMMUNITY CARE CONSULT DANA MANLEY [facility] Encounter Template Text not used by [place] Plan of Treatment: Future Appointments (+ 6 months) and Future Tests (+/- 45 days) The Plan of Treatment section includes future care activities for the patient from all [place] treatmentfacilities. This section includes future appointments and future orders which are active, pending or scheduled. Future Appointments This section includes appointments that were scheduled to occur 6 months from the date of the Encounter, up to a maximum of 20 appointments. The data comes from all [place] treatment facilities. Appointment Date/Time Appointment Type Appointme nt Facility Name Dec 29, 2023 07:00 AM AMBULATORY - NONE [facility] Jan 11, 2024 01:00 PM AMBULATORY - MEDICINE [facility] ([facility]) Jan 11, 2024 02:30 PM AMBULATORY - PS[facility]CHIATRY [facility] [place] ([facility]) Jan 25, 2024 11:44 AM AMBULATORY - NONE [facility] Jan 31, 2024 09:00 AM AMBULATORY - PS[facility]CHIATRY [facility] ([facility]) Jan 31, 2024 09:01 AM AMBULATORY - [place] [facility] Social History: Smoking Status (Most current) and Tobacco Use (All prior to encounter date) This section includes the most current, and the historical, smoking and tobacco- related health factors from the [place] facility where the Encounter took place. Current Smoking Status This section includes the most current smoking, or tobacco-related health factor, from the [place] facility where the Encounter took place. Date/Time Current Smoking Status Comment Facil ity Dec 01, 2017 02:51 PM LIFETIME NON-TOBACCO USER [facility] Tobacco Use History This section includes a history of the smoking, or tobacco-related health factors, that were collected on or before the date of the Encounter. The data comes from the [place] facility where the Encounter took place. Date/Time Smoking Status/Tobacco Use Comment F acility Aug 10, 2016 09:08 AM FORMER TOBACCO USER 7Y OR GREATE R [facility] Aug 10, 2016 09:08 AM LIFETIME NON-TOBACCO USER [facility] Sep 06, 2014 08:19 AM FORMER TOBACCO USER 7Y OR GREATE R [facility] Dec 09, 2011 01:28 PM FORMER TOBACCO USER 7Y OR [facility] R [facility] Encounter Notes: All associated encounter notes [...] Date Given: 12/23/2023 Clinician: Dana Manley Location: [facility] : Prateek Grayson SSN: [id number] : Jul [...] from SOURCES 1. Person /dexter/ DANA MANLEY shell assembler Office Support Clerk Signed: 12/23/2023 12:36 DANA MANLEY [facility]
--- OUTSIDE RECORDS SUMMARY | 2024-03-22 10:53 | XMS_ITS | Encounter Summary ---
Author Name [facility] [facility] [place] [facility] [place] Address [address] [place] [address] Care Team Providers Care Treating And Pumping Supervisor Name Role Phone ROMANA GOLDSTEIN Primary [...] PART A Jul 21, 2007 PART A [id number] [phone] PRATEEK COHN PATIENT Selected Encounter This section [...] LOC of unsp duration, sequela ROMANA GOLDSTEIN ([facility]) Jan 11, 2024 02:51 PM SECONDARY Alzheimer's disease with late onset ROMANA GOLDSTEIN ([facility]) Jan 11, 2024 02:51 PM SECONDARY Benign prostatic hyperplasia with lower urinary tract symp ROMANA GOLDSTEIN ([facility]) Plan of Treatment: Future Appointments (+ 6 [...] 25, 2024 11:44 AM AMBULATORY - NONE [facility] Jan 31, 2024 09:00 AM AMBULATORY - PSYCHIATRY [facility] ([facility]) Jan 31, 2024 09:01 AM AMBULATORY - PSYCHIATRY [facility] Vital Signs: All taken on the [...] 18 [phone] 26 [facility] ([facility]) Social History: Smoking Status (Most current) and [...] Yann ferrer Jan 11, 2024 01:00 PM [place]-TOBACCO NEVER USED [facility] ([facility]) Tobacco Use History This section includes a history of the smoking, or tobacco-related health factors, that were collected on or before the date of the Encounter. The data comes from the [place] facility where the Encounter took place. Date/Time Smoking Status/Tobacco Use Comment F acility Sep 07, 2021 08:00 AM MA-TOBACCO NEVER USED [facility] ([facility]) Encounter Notes: All associated encounter notes This section contains the clinical notes associated to the Encounter. Date/Time Encounter Note(s) Provider Source Jan 11, 2024 01:45 PM PRIMARY CARE NOTE: LOCAL TITLE: [facility] PROGRESS NOTE-[facility] STANDARD TITLE: PRIMARY CARE NOTE DATE OF NOTE: JAN 11, 2024@13:45 ENTRY DATE: JAN 11, 2024@13:46:03 AUTHOR: ROMANA GOLDSTEIN EXP COSIGNER: URGENCY: STATUS: COMPLETED Type of Visit: [...] testing, she reports when was hospitalized that [facility] did testing before they left, and he was a level 4 in dementia. - PCP combed the [facility] charts and no cognitive testing was able [...] type Social History: 1. , lives in [place] with , son, [id number], and 2 grandchildren 2. 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 : [employer] [id number] 4. Tobacco: lifetime nonsmoker 5. Alcohol: denies [...] Remote Allergy/ADR Data available for this patient [facility] No Known Allergies Active Medications: + +--------+----- ---+--------+--------+ Medication (Local) New Med Old Dose New Dose Discontd + +--------+----- ---+--------+--------+ CATHETER,SELF-CATH COUDE 14FR COLO#[id number] Directions: USE CATHETER FOUR TIMES A DAY [...] Remote Allergy/ADR Data available for this patient [facility] No Known Allergies Active and Recently Outpatient Medications (including Supplies): Issue Date Status Last Fill Active Outpatient Medications Refills Expiration 1) CATHETER,SELF-CATH COUDE 14FR COLO#[id number] ACTIVE Issu:12-26-23 Qty: 120 for 30 days [...] Expr:12-15-24 TOPICALLY DIRECTED /dexter/ Romana Goldstein APRN, JASSON Signed: 01/11/2024 14:54 ROMANA GOLDSTEIN [facility] ([facility]) Jan 11, 2024 01:36 PM ADVANCE DIRECTIVE: LOCAL TITLE: AD NOTIFICATION AND SCREENING STANDARD TITLE: ADVANCE DIRECTIVE DATE OF NOTE: JAN 11, 2024@13:36 ENTRY DATE: JAN 11, 2024@13:36:48 AUTHOR: THANH BOURNE EXP COSIGNER: URGENCY: STATUS: COMPLETED ADVANCE DIRECTIVE NOTIFICATION: Patient was given written notification of the following rights: 1. Accept or refuse any medical treatment. 2. Complete a durable power of estate attorney for health care. 3. Complete a living will. ADVANCE DIRECTIVE SCREENING: Does patient have an Advance Directive? The patient does not have an Advance Directive. The patient does not wish to create an Advance Directive for health care. /dexter/ THANH Santos [facility] SASH CLAMP OPERATOR Signed: 01/11/2024 13:37 THANH BOURNE ([facility]) Jan 11, 2024 01:32 PM PRIMARY CARE NURSI RUBENS NOTE: LOCAL TITLE: [facility] NURSING PROGRESS NOTE [...] ulcers, or a wound from a medical insurance verifier or Patient is bed-confined or a wheelchair-user or Patient requires assistance to transfer/change position No, Skin Screen is Negative Home Abuse/Violence Screen Is your home free of abuse and violence? Yes MOVE! Program Screen Body Mass Index (BMI)= 25.8 [place]: Collection DT Specimen Test Name Result Units Ref Range 09/07/2021 09:19 BLOOD HEMOGLOBIN A1C 6.0 % 4.0 - 6.0 [place] Hgb A1C: No data available [place] Hgb A1C: No data available Point of Care Hgb A1C: POC HGB A1C____ Outpatient Nutrition Screen Body Mass Index (BMI)= 25.8 [place]: Collection DT Specimen Test Name Result Units Ref Range 09/07/2021 09:19 BLOOD HEMOGLOBIN A1C 6.0 % 4.0 - 6.0 [place] Hgb A1C: No data available [place] Hgb A1C: No data available Point of [...] Not at all Suicide Screen: C-SSRS Screening [place] Suicide Severity Rating Scale (C-SSRS) screener 1. [...] Not worried about housing near future [facility] reports the following: Within the past 12 months, you worried whether your food would run out before you got money to buy more. Never true Within the past 12 months, the food you bought just didn't last and you didn't have money to get more. Never true Food Assistance Programs [facility] Food Assistance Programs [facility] Pneumococcal Conjugate Vaccine (PCV15/PCV20): Refuses [...] due to responses to other questions. 5. [place] numb or detached from people, activities, or your surroundings? Response not required due to responses to other questions. 6. [place] guilty or unable to stop blaming yourself or others for the event(s) or any problems the event(s) may have caused? Response not required due to responses to other questions. Toxic Exposure Screening: The /caregiver was asked if they believe the [facility] experienced any toxic exposure(s), such as Airborne Hazards and Open Burn [place], [place] War related exposures, Agent [place], Radiation, contaminated water at [place] or other such exposures, while serving in [...] provided if desired. /dexter/ THANH Santos [facility] SASH CLAMP OPERATOR Signed: 01/11/2024 13:36 THANH BOURNE ([facility])
--- OUTSIDE RECORDS SUMMARY | 2024-03-22 10:53 | XMS_ITS | Encounter Summary ---
Author Name [facility] [place] Address [address] [place] [address] Care Team Providers Care Sponge Maker Name Role Phone ROMANA GOLDSTEIN Primary Care [...] PART A Jul 21, 2007 PART A [id number] [phone] PRATEEK COHN PATIENT Selected Encounter This section includes the information on record at [place] for the Encounter. Date/Time Encounter Type Encounter Description Reason Pro vider Source Jan 31, 2024 09:01 AM Outpatient Encounter PSYCHOLOGICAL TESTING [facility] Encounter Template Text not used by [facility] Social History: Smoking Status (Most current) and Tobacco Use (All prior to encounter date) This section includes the most current, and the historical, smoking and tobacco- related health factors from the [place] facility where the Encounter took place. Current Smoking Status This section includes the most current smoking, or tobacco-related health factor, from the [place] facility where the Encounter took place. Date/Time Current Smoking Status Comment Facil [facility] Dec 01, 2017 02:51 PM LIFETIME NON-TOBACCO USER [facility] Tobacco Use History This section includes a history of the smoking, or tobacco-related health factors, that were collected on or before the date of the Encounter. The data comes from the [place] facility where the Encounter took place. Date/Time Smoking Status/Tobacco Use Comment F acility Aug 10, 2016 09:08 AM FORMER TOBACCO USER 7Y OR SARYE R [facility] Aug 10, 2016 09:08 AM LIFETIME NON-TOBACCO USER [facility] Sep 06, 2014 08:19 AM FORMER TOBACCO USER 7Y OR SARYE R [facility] Dec 09, 2011 01:28 PM FORMER TOBACCO USER 7Y OR SARYE R [facility] Encounter Notes: All associated encounter notes This section contains the clinical notes associated to the Encounter. Date/Time Encounter Note(s) Provider Source Jan 31, 2024 09:00 AM NO SHOW NOTE: LOCAL TITLE: NO SHOW/CANCELLATION CLINIC NOTE STANDARD TITLE: NO SHOW NOTE DATE OF NOTE: JAN 31, 2024@09:00 ENTRY DATE: JAN 31, 2024@09:44:05 AUTHOR: KAIN PELAEZ EXP COSIGNER: URGENCY: STATUS: COMPLETED Tatum not seen for scheduled appointment due to: No Show Tatum did not present for neuropsychology appointment. Called and left HIPAA-compliant message. 's Lisbeth returned my call. She stated that they were scheduled through community care for a neuropsych evaluation 02/05 to go closer to home, and her understanding was that today's appointment had been cancelled. She reported that she is considering cancelling the upcoming neuropsychology appointment as the is showing striking improvements physically and cognitively and she would prefer to hold off on comprehensive assessment until further stabilization has occurred. This was discussed in detail and I agreed that this is a reasonable plan. She denied any MH concerns about the . Appointment Rescheduled: No Consult will be cancelled - they were scheduled in the community and prefer to wait until a later date for evaluation. I will cancel the consult and alert neuropsychology MSAs to john the 01.30 appointment as a no-show. Please review patient chart and medications for renewal needs (if appropriate). /dexter/ KAIN PELAEZ, PHD, LP, ABPP STAFF NEUROPSYCHOLIGST Signed: 01/31/2024 09:48 KAIN PELAEZ [facility]
--- OUTSIDE RECORDS SUMMARY | 2024-03-22 10:53 | XMS_ITS | Encounter Summary ---
Author Name [facility] [place] Address [address] [place] [address] Care Team Providers Care Behavioral Health Aide Name Role Phone ROMANA GOLDSTEIN Primary Care [...] PART A Jul 21, 2007 PART A [id number] [phone] PRATEEK COHN PATIENT Selected Encounter This section includes the information on record at [place] for the Encounter. Date/Time Encounter Type Encounter Description Reason Provider Source Jan 25, 2024 11:44 AM Outpatient Encounter ADMIN PAT ACTIVTIES (MASNONCT) ELIJAH BURRELL Tiny Encounter Template Text not used by [place] Plan of Treatment: Future Appointments (+ 6 [...] 20 appointments. The data comes from all [place] treatment facilities. Appointment Date/Time Appointment Type Appointme nt Facility Name Jan 31, 2024 09:00 AM AMBULATORY - PSYCHIATRY [facility] ([facility]) Jan 31, 2024 09:01 AM AMBULATORY - PS[facility]CHIATRY [facility] Social History: Smoking Status (Most current) and Tobacco Use (All prior to encounter date) This section includes the most current, and the historical, smoking and tobacco- related health factors from the [place] facility where the Encounter took place. Current Smoking Status This section includes the most current smoking, or tobacco-related health factor, from the [facility] where the Encounter took place. Date/Time Current Smoking Status Comment Facil ity Dec 01, 2017 02:51 PM LIFETIME NON-TOBACCO USER [facility] Tobacco Use History This section includes a history of the smoking, or tobacco-related health factors, that were collected on or before the date of the Encounter. The data comes from the [facility] where the Encounter took place. Date/Time Smoking Status/Tobacco Use Comment F acility Aug 10, 2016 09:08 AM FORMER TOBACCO USER 7Y OR [facility] Aug 10, 2016 09:08 AM LIFETIME NON-TOBACCO USER [facility] Sep 06, 2014 08:19 AM FORMER TOBACCO USER 7Y OR [facility] R [facility] Dec 09, 2011 01:28 PM FORMER TOBACCO USER 7Y OR [facility] R [facility] Encounter Notes: All associated encounter notes This section contains the clinical notes associated to the Encounter. Date/Time Encounter Note(s) Provider Source Jan 26, 2024 11:58 AM ADDENDUM: LOCAL TITLE: Addendum STANDARD TITLE: ADDENDUM DATE OF NOTE: JAN 26, 2024@11:58:12 ENTRY DATE: JAN 26, 2024@11:58:13 AUTHOR: CASANDRA MUSE EXP COSIGNER: URGENCY: STATUS: COMPLETED was seen in a Community ED. Records uploaded to chart. Please review and follow up as appropriate. /dexter/ CASANDRA MUSE ADVANCED MSA Signed: 01/26/2024 11:58 Receipt Acknowledged By: 01/27/2024 12:23 /es/ Garrett Browning RN [facility] 01/26/2024 12:02 /es/ Romana Goldstein APRN, DIPLOMA MEDICAL ASSISTANT --- Original Document --- 01/23/24 [facility] SELF PRESENTING CARE COORD PLAN NOTE: Emergency Notification Intake Date Presenting to the Facility: Jan Method of Contact: Submitted to Centralized Call Center Notification ID: [id number] [facility] Referral #: [facility] Name: Hospital: [place] Address: [address] City: [place] State: [place] Zip Code: [address] Phone : [facility] Facility Point of Contact: Name: Eunice Valencia RN Chief complaint: missed surgical inna (3) need to be removed Primary Diagnosis: Disposition Unknown at time of intake note entry /es/ JAYDEN JESUS AUTO BODY MAN (AOD) Signed: 01/25/2024 11:46 Receipt Acknowledged By: 01/25/2024 14:14 /es/ Oziel Espinosa MA, PHN, RN-BC bowling floor desk clerk Supervisor Mending for ELIJAH M ASHANTI 01/25/2024 ADDENDUM STATUS: COMPLETED Forwarding per social split to the surrogate CCUM RN for continuity of care. /es/ Oziel Espinosa MA, PHN, RN-BC bowling floor desk clerk Supervisor Mending Signed: 01/25/2024 14:14 Receipt Acknowledged By: 01/26/2024 07:49 /es/ OSWALDO BOTELLO Community [facility] liquid natural gas plant operator 01/26/2024 ADDENDUM STATUS: COMPLETED Records requested and will be uploaded via Localist when received. /es/ ELIZABETH LUCERO .JaelAdvanced Licensed Practical Vocational Nurse Signed: 01/26/2024 09:24 Receipt Acknowledged By: 01/27/2024 12:23 /es/ Garrett Browning RN [facility] 01/23/2024 ADDENDUM STATUS: COMPLETED VistA Imaging Scanned Document - Addendum. ED record 01.23.24 [facility] SCANNED DOCUMENT SIGNATURE NOT REQUIRED Electronically Filed: 01/26/2024 by: CASANDRA MUSE ADVANCED [facility] 01/27/2024 ADDENDUM STATUS: UNSIGNED You may not VIEW this UNSIGNED Addendum. CASANDRA MUSE [facility] Jan 26, 2024 09:23 AM ADDENDUM: LOCAL TITLE: Addendum STANDARD TITLE: ADDENDUM DATE OF NOTE: JAN 26, 2024@09:23:56 ENTRY DATE: JAN 26, 2024@09:23:57 AUTHOR: ELIZABETH LUECRO EXP COSIGNER: URGENCY: STATUS: COMPLETED Records requested and will be uploaded via F-Origini when received. /es/ ELIZABETH LUCERO .Tarik.Advanced Licensed Practical Vocational Nurse Signed: 01/26/2024 09:24 Receipt Acknowledged By: 01/27/2024 12:23 /es/ Garrett Browning RN [facility] --- Original Document --- 01/23/24 [facility] PRESENTING CARE COORD PLAN NOTE: Emergency Notification Intake Date Presenting to the Facility: Jan Method of Contact: Submitted to Centralized Call Center Notification ID: [id number] [facility] Referral #: [facility] Name: Hospital: [place] Address: [address] [place] [address] City: [place] State: [place] Zip Code: [address] Phone : On License Of [facility] Point of Contact: Name: Eunice Valencia RN Chief complaint: missed surgical inna (3) need to be removed Primary Diagnosis: Disposition Unknown at time of intake note entry /es/ JAYDEN JESUS AUTO BODY MAN (AOD) Signed: 01/25/2024 11:46 Receipt Acknowledged By: 01/25/2024 14:14 /es/ Oziel Espinosa MA, PHN, RN-BC bowling floor desk clerk Supervisor Mending for ELIJAH M ASHANTI 01/25/2024 ADDENDUM STATUS: COMPLETED Forwarding per social split to the surrogate CCUM RN for continuity of care. /es/ Oizel Espinosa MA, PHN, RN-BC bowling floor desk clerk Supervisor Mending Signed: 01/25/2024 14:14 Receipt Acknowledged By: 01/26/2024 07:49 /adriano BOTELLO Community [facility] liquid natural gas plant operator 01/23/2024 ADDENDUM STATUS: COMPLETED VistA Imaging Scanned Document - Addendum. ED record 8.5.24 [facility] SCANNED DOCUMENT SIGNATURE NOT REQUIRED Electronically Filed: 01/26/2024 by: CASANDRA BARRERA MSA 01/26/2024 ADDENDUM STATUS: COMPLETED was seen in a Community ED. Records uploaded to chart. Please review and follow up as appropriate. /es/ CASANDRA BARRERA MSA Signed: 01/26/2024 11:58 Receipt Acknowledged By: 01/27/2024 12:23 /es/ Garrett Browning RN [facility] 01/26/2024 12:02 /es/ Romana Goldstein APRN, DIPLOMA MEDICAL ASSISTANT ELIZABETH LUCERO [facility] Jan 25, 2024 02:14 PM ADDENDUM: LOCAL TITLE: Addendum STANDARD TITLE: ADDENDUM DATE OF NOTE: JAN 25, 2024@14:14:01 ENTRY DATE: JAN 25, 2024@14:14:03 AUTHOR: OZIEL ESPINOSA EXP COSIGNER: URGENCY: STATUS: COMPLETED Forwarding per social split to the surrogate CCUM RN for continuity of care. /dexter/ Oziel Espinosa MA, PHN, RN-BC bowling floor desk clerk Supervisor Mending Signed: 01/25/2024 14:14 Receipt Acknowledged By: 01/26/2024 07:49 /adriano BOTELLO Community [facility] liquid natural gas plant operator --- Original Document --- 01/23/24 [facility]F PRESENTING CARE COORD PLAN NOTE: Emergency Notification Intake Date Presenting to the Facility: Jan Method of Contact: Submitted to [facility] Call Center Notification ID: [id number] [facility] Referral #: [facility] Name: Hospital: [place] Address: [address] [facility]: [place] State: [place] Zip Code: [address] Phone : On License Of [facility] Point of Contact: Name: Eunice Valencia RN Chief complaint: missed surgical inna (3) need to be removed Primary Diagnosis: Disposition Unknown at time of intake note entry /dexter/ JAYDEN JESUS AUTO BODY MAN (AOD) Signed: 01/25/2024 11:46 Receipt Acknowledged By: 01/25/2024 14:14 /dexter/ Oziel Espinosa MA, PHN, RN-BC bowling floor desk clerk Supervisor Mending for OZIEL ESTES [facility] Jan 23, 2024 11:44 AM NONVA NOTE: LOCAL TITLE: [facility] SELF PRESENTING CARE COORD PLAN STANDARD TITLE: NONVA NOTE DATE OF NOTE: JAN 23, 2024@11:44 ENTRY DATE: JAN 25, 2024@11:44:35 AUTHOR: JAYDEN JESUS EXP COSIGNER: URGENCY: STATUS: COMPLETED [facility] SELF PRESENTING CARE COORD PLAN NOTE Has ADDENDA Emergency Notification Intake Date Presenting to the Facility: Jan Method of Contact: Submitted to [facility] Call Center Notification ID: [id number] [facility] Referral #: [facility] Name: Hospital: [place] Address: [address] [facility] [facility]: [place] State: [place] Zip Code: [address] Phone : On License Of [facility] Point of Contact: Name: Eunice Valencia RN Chief complaint: missed surgical inna (3) need to be removed Primary Diagnosis: Disposition Unknown at time of intake note entry /adriano JESUS AUTO BODY MAN (AOD) Signed: 01/25/2024 11:46 Receipt Acknowledged By: 01/25/2024 14:14 /dexter/ Oziel Espinosa MA, PHN, RN-BC bowling floor desk clerk Supervisor Mending for ELIJAH BURRELL 01/25/2024 ADDENDUM STATUS: COMPLETED Forwarding per social split to the surrogate CCUM RN for continuity of care. /dexter/ Oziel Espinosa MA, PHN, RN-BC bowling floor desk clerk Supervisor Mending Signed: 01/25/2024 14:14 Receipt Acknowledged By: 01/26/2024 07:49 /es/ OSWALDO BOTELLO Community [facility] liquid natural gas plant operator 01/26/2024 ADDENDUM STATUS: COMPLETED Records requested and will be uploaded via Epsi when received. /es/ ELIZABETH LUCERO .JaelAdvanced Licensed Practical Vocational Nurse Signed: 01/26/2024 09:24 Receipt Acknowledged By: 01/27/2024 12:23 /dexter/ Garrett Browning RN [facility] 01/23/2024 ADDENDUM STATUS: COMPLETED VistA Imaging Scanned Document - Addendum. ED record 8.524 [facility] SCANNED DOCUMENT SIGNATURE NOT REQUIRED Electronically Filed: 01/26/2024 by: CASANDRA BARRERA MSA 01/26/2024 ADDENDUM STATUS: COMPLETED was seen in a Community ED. Records uploaded to chart. Please review and follow up as appropriate. /es/ CASANDRA BARRERA MSA Signed: 01/26/2024 11:58 Receipt Acknowledged By: 01/27/2024 12:23 /dexter/ Garrett Browning RN [facility] 01/26/2024 12:02 /es/ Romana Goldstein APRN, CNP 01/27/2024 ADDENDUM STATUS: COMPLETED ED note in [place] reviewed. Per note, 3 inna removed from R hip w/o concern. No s/s of infection noted. It does not appear needs f/u from this ER visit at this time. /dexter/ Garrett Browning RN [facility] Signed: 01/27/2024 12:26 JAYDEN JESUS [facility]
--- OUTSIDE RECORDS SUMMARY | 2024-03-22 10:53 | XMS_ITS | Encounter Summary ---
Author Name [facility] [place] Organization [facility] [place] [place] Address [address] [facility], [place] [address] Care Team Providers Care Intelligence Agent Name Role Phone ROMANA GOLDSTEIN Primary [...] PART A Jul 21, 2007 PART A [id number] [phone] PRATEEK GRAYSON PATIENT Selected Encounter This section includes the information on record at [place] for the Encounter. Date/Time Encounter Type Encounter Description Reason Provider Source Jan 11, 2024 02:48 PM Outpatient Encounter [facility] ROMANA GOLDSTEIN Tiny Encounter Template Text not used by [place] Plan of Treatment: Future Appointments (+ 6 months) and Future Tests (+/- 45 days) The Plan of Treatment section includes future care activities for the patient from all [place] treatmentfacilities. This section includes future appointments and [...] 2024 11:44 AM AMBULATORY - NONE [place] [facility] Jan 31, 2024 09:00 AM AMBULATORY - PSYCHIATRY [place] ([facility]) Jan 31, 2024 09:01 AM AMBULATORY - PSYCHIATRY [place] [facility] Social History: Smoking Status (Most current) and Tobacco Use (All prior to encounter date) This section includes the most current, and the historical, smoking and tobacco- related health factors from the [facility] where the Encounter took place. Current Smoking Status This section includes the most current smoking, or tobacco-related health factor, from the [place] facility where the Encounter took place. Date/Time Current Smoking Status Comment Facil ity Dec 01, 2017 02:51 PM LIFETIME NON-TOBACCO USER [facility] Tobacco Use History This section includes a history of the smoking, or tobacco-related health factors, that were collected on or before the date of the Encounter. The data comes from the [facility] where the Encounter took place. Date/Time Smoking Status/Tobacco Use Comment F acility Aug 10, 2016 09:08 AM FORMER TOBACCO USER 7Y OR GREATE R [facility] Aug 10, 2016 09:08 AM LIFETIME NON-TOBACCO USER [facility] Sep 06, 2014 08:19 AM FORMER TOBACCO USER 7Y OR GREATE R [facility] Dec 09, 2011 01:28 PM FORMER TOBACCO USER 7Y OR GREATE R [facility] Encounter Notes: All associated encounter [...] ROMANA GOLDSTEIN EXP COSIGNER: URGENCY: STATUS: COMPLETED Joseph Cognitive Assessment Date Given: 01/11/2024 Clinician: Romana Goldstein Location: [facility] Caryn : Prateek Grayson SSN: [id number] : [birth year] ([birth year]) Gender: Male MoCA Score: 8 A score of 26 or greater is considered normal. Questions and Answers 1. Alternating Gaston Making. Correct Pattern: 1-A- 2- B- 3- [...] clock. 3A. Clock face must be a [place] with only minor distortion acceptable (e.g., slight imperfection on closing the [place]). Correct [place] 3B. All clock numbers must be present with no additional numbers; numbers must be in the correct order and placed in the approximate quadrants on the clock face; [place] numerals are acceptable; numbers can be placed outside the [place] contour. Incorrect 3C. There must be two [...] Incorrect 9B. Recall VELVET. Incorrect 9C. Recall HINDUISM. Incorrect 9D. Recall JORGE. Incorrect 9E. Recall [...] APRN, CNP Signed: 01/11/2024 14:56 ROMANA GOLDSTEIN ([facility])
--- OUTSIDE RECORDS SUMMARY | 2024-03-22 10:53 | XMS_ITS | Referral Summary ---
Author Organization [facility] Address [address] [place] [address] Care Team Providers Care Postal Mail Carrier Name Role Phone Elsewhere, Pcp Primary Care Provider Unavailabl e Source Comments Patient records contain information from all sites at [facility]. For routine questions regarding patient records, call [phone] during business hours, M-F 8:00 AM - 5:00 PM Central Time. Record requests for emergency care only can be directed to [phone] at any time.[facility] Encounters Date Type Department Care Team Description 02/13/2024 2:45 PM CDT Clinical Communication Virtual Review in [place], [place] 200 [place] [address] Pre-visit Intake 12/28/2023 2:00 PM CDT Virtual Visit Department of Neurologic Surgery in [place], [place] [address] [place] [phone] Harmony Lomas APRN, C.N.P., M.S.N. Hemorrhage Subarachnoid Nontraumatic (HCC) 12/27/2023 Orders Only Department of Orthopedic Surgery in [address] [phone] Sera Avila P.A.-C., M.S. Fracture Acetabulum Closed Initial Left (HCC) (Primary Dx) 11/23/2023 12:47 PM CDT - 12/27/2023 10:25 AM CDT Hospital Encounter [facility], Fifth Floor [address] [place] [phone] Carol Miller M.D. Sawyer, Mark D, M.D. Schiller, Henry J, M.D. Stephens, Alexi, M.D. Kong Mendoza M.D. Alexandra Varela M.D. [...] (HCC); Effusion Pleural Discharge Disposition: Home-Health Care [facility] 12/25/2023 10:15 AM CDT Ancillary Procedure Department of Nursing from [...] 11/29/2023 1:51 PM CDT Plan of Treatment Not on file Medical Devices Implanted Type Area Greenskeeper Head Device Identifier Shelf Expiration Date Model / Serial / Lot Grft Ost Dbm [facility] 5 - [id number] - [id number] Implanted:Qt y: 1 on 11/25/2023 by Naveed Higuera M.D. at [facility] Bone or Tissue Left: Acetabulum Medtronic 05/29/2028 [id number] / [id number] / Clp Apr [facility] 9.75 - [id number] 3 Implanted:Qt y: 1 on 11/25/2023 by Naveed Higuera M.D. at [facility] Hardware e.g. pins/screws /rods Left: Acetabulum Ethicon [id number] 09/17/2028 [id number] / / [id number] Washr Rnd Ss Elkin Elkin 9x8x3.5 - [id number] 3 Implanted:Qt y: 1 on 11/25/2023 by Naveed Higuera M.D. at [facility] Hardware e.g. pins/screws /rods Left: Acetabulum Cyril [id number] / / Plt Spctnl Qls 16h Lt - [id number] Implanted:Qt y: 1 on 11/25/2023 by aNveed Higuera M.D. at [facility] Hardware e.g. pins/screws /rods Left: Acetabulum Cyril [id number] / / Scrw Axs St Fthrd Lck 3.5x38 - [id number] Implanted:Qt y: 1 on 11/25/2023 by Naveed Higuera M.D. at [facility] Hardware e.g. pins/screws /rods Left: Acetabulum Tamiko [id number] / / Scrw Axs St Fthrd Lck 3.5x26 - [id number] Implanted:Qt y: 1 on 11/25/2023 by Naveed Higuera M.D. at [facility] Hardware e.g. pins/screws /rods Left: Acetabulum Cyril [id number] / / Scrw Axs St Fthrd Lck 3.5x55 - [id number] Implanted:Qt y: 2 on 11/25/2023 by Naveed Higuera M.D. at [facility] Hardware e.g. pins/screws /rods Left: Acetabulum Cyril [id number] / / Scrw Axs St Fthrd Lck 3.5x28 - [id number] Implanted:Qt y: 2 on 11/25/2023 by Naveed Higuera M.D. at [facility] Hardware e.g. pins/screws /rods Left: Acetabulum Tamiko [id number] / / Scrw Axs St Fthrd Lck 3.5x34 - [id number] 3 Implanted:Qt y: 1 on 11/25/2023 by Naveed Higuera M.D. at [facility] Hardware e.g. pins/screws /rods Left: Acetabulum Tamiko [id number] / / Scrw Axs St Fthrd Lck 3.5x90 - [id number] Implanted:Qt y: 1 on 11/25/2023 by Naveed Higuera M.D. at [facility] Hardware e.g. pins/screws /rods Left: Acetabulum Cyril [id number] / / Scrw Axs St Fthrd Lck 3.5x95 - [id number] Implanted:Qt y: 1 on 11/25/2023 by Naveed Higuera M.D. at [facility] Hardware e.g. pins/screws /rods Left: Acetabulum Tamiko [id number] / / Scrw Axs St Fthrd Lck 3.5x120 - [id number] 3 Implanted:Qt y: 2 on 11/25/2023 by Naveed Higuera M.D. at [facility] Hardware e.g. pins/screws /rods Left: Acetabulum Cyril [id number] / / Procedures Procedure Name Priority Date/Time [...] lumbar degeneration. Kavon Mancilla APRN, C.N.P., D.N.P. [facility] DIAGNOSTIC IMAGING PROCEDURES * (ABNORMAL) Basic Metabolic Panel (12/24/2023 3:30 PM CDT) Pathologist [facility] Potassium, S 4.5 3.6 - 5.2 mmol/L [...] APRN, C.N.P., M.S.N. L AB BLOOD ADD-ON [facility] [address] [place] [address], [facility] DTL [facility] [address] [place] [address] from Last 3 Months Advance Directives For more information, please contact: [phone] * Full Code (Latest Code Status on File) Date Activated Date Inactivated Comments 11/23/2023 5:00 PM 12/27/2023 12:36 PM Question Answer Comments Full Code: Discussed Care Teams Postal Mail Carrier Relationship Specialty Start Date End Date Elsewhere, Pcp PCP - General Internal Medicine 11/23/23
--- OUTSIDE RECORDS SUMMARY | 2024-03-22 10:53 | XMS_ITS | Encounter Summary ---
Author Name [facility] [facility] [place] Organization [facility] [place] Address [address] [facility], [place] [address] Care Team Providers Care Sewing Inspector Name Role Phone ROMANA GOLDSTEIN Primary Care [...] PART A Jul 21, 2007 PART A [id number] [phone] PRATEEK COHN PATIENT Selected Encounter This section [...] 11:44 AM AM[place]ORY - NONE [place] [facility] Jan 31, 2024 09:00 AM AMBULATORY - PSYCHIATRY [place] ([facility]) Jan 31, 2024 09:01 AM AM[place]ORY [place] [facility] Social History: Smoking Status (Most current) and Tobacco Use (All prior to encounter date) This section includes the most current, and the historical, smoking and tobacco- related health factors from the [place] facility where the Encounter took place. Current Smoking Status This section includes the most current smoking, or tobacco-related health factor, from the [place] facility where the Encounter took place. Date/Time Current Smoking Status Comment Facil ity Dec 01, 2017 02:51 PM LIFETIME NON-TOBACCO USER [facility] Tobacco Use History This section includes a history of the smoking, or tobacco-related health factors, that were collected on or before the date of the Encounter. The data comes from the [place] facility where the Encounter took place. Date/Time Smoking Status/Tobacco Use Comment F acility Aug 10, 2016 09:08 AM FORMER TOBACCO USER 7Y OR GREATE R [facility] Aug 10, 2016 09:08 AM LIFETIME NON-TOBACCO USER [facility] Sep 06, 2014 08:19 AM FORMER TOBACCO USER 7Y OR GRE[facility] Dec 09, 2011 01:28 PM FORMER TOBACCO USER 7Y OR GRE[facility] Encounter Notes: All associated encounter notes [...] STATUS: COMPLETED PCSW received a message from Belton's spouse- Faviola inquiring about returning the hospital bed. This marketing copywriter placed return call on 01/09/24 to [phone] and spoke with Faviola- Belton's spouse and informed her she can call [facility] to return it. She verbalized understanding and stated she had the number and would do that. Faviola also asked about no refilling the cath supplies, marketing copywriter advised her that I thought supplies need to be called in for refill so she wouldn't need to call and cancel any auto-refills, she verbalzied understanding. PCSW to remain available. /dexter/ ADELSO Sandoval Primary Care Supervisor Show Operations Signed: 01/11/2024 13:55 ELLEN LEON ([facility])
--- OUTSIDE RECORDS SUMMARY | 2024-03-22 10:53 | XMS_ITS | Encounter Summary ---
Author Organization [facility] Address [address] [place] [address] Care Team Providers Care Sap Pp Consultant Name Role Phone Elsewhere, Pcp Primary Care Provider Unavailabl e Reason for Visit * Outpatient (Routine) - Closed Specialty Diagnoses / Procedures Referred By Rahul preciado Referred To Contact Neurological Surgery Diagnoses Hemorrhage Subarachnoid Nontraumatic (HCC) Vanessa Curiel APRN, MYLA, D.N.P., M.S.N. [address] [place] [phone] [facility] Referral ID Status Reason Start Date Expiration Date Visits Re quested Visits Authorized [id number] Closed 11/25/2023 05/26/2025 1 1 Encounter Details Date Type Department Care Team (Late st Contact Info) Description 12/28/2023 2:00 PM CDT Virtual Visit Department of Neurologic Surgery in [place], [place] [address] [place] [phone] Harmony Lomas APRN, C.N.P., M.S.N. [address] [place] [phone] Hemorrhage Subarachnoid Nontraumatic (HCC) Social History Tobacco [...] documented in this encounter Plan of Treatment Not on file documented as of this encounter Visit Diagnoses Diagnosis Hemorrhage Subarachnoid Nontraumatic (HCC) documented in this encounter Care Teams Sap Pp Consultant Relationship Specialty Start Date End Date Elsewhere, Pcp PCP - General Internal Medicine 11/23/23 documented as of this encounter
--- OUTSIDE RECORDS SUMMARY | 2024-03-22 10:53 | XMS_ITS | Encounter Summary ---
Author Name [facility] [facility] [place] Organization [facility] [place] Address [address] [facility], [place] [address] Care Team Providers Care Cage Maker Machine Name Role Phone ROMANA GOLDSTEIN Primary Care [...] PART A Jul 21, 2007 PART A [id number] [phone] PRATEEK COHN PATIENT Selected Encounter This section [...] 11:44 AM AM[place]ORY - NONE [place] [facility] [facility] Jan 31, 2024 09:00 AM AMBULATORY - PSYCHIATRY [place] ([facility]) Jan 31, 2024 09:01 AM AMB[place]ORY [place] [facility] Social History: Smoking Status (Most [...] 01, 2017 02:51 PM LIFETIME NON-TOBACCO USER [facility] Tobacco Use History This section includes a history of the smoking, or tobacco-related health factors, that were collected on or before the date of the Encounter. The data comes from the [facility] where the Encounter took place. Date/Time Smoking Status/Tobacco Use Comment F acility Aug 10, 2016 09:08 AM FORMER TOBACCO USER 7Y OR GREATE R [facility] Aug 10, 2016 09:08 AM LIFETIME NON-TOBACCO USER [facility] Sep 06, 2014 08:19 AM FORMER TOBACCO USER 7Y OR GREATE R [facility] Dec 09, 2011 01:28 PM FORMER TOBACCO USER 7 OR [facility] Encounter Notes: All associated encounter notes [...] spouse- Kenny inquiring about hearing aids. This data analyst report writer placed return call to Kenny on this day (01/02/24) at [phone] and spoke with her. Kenny stated the hospital therapy staff requested Veterans hearing aids be brought in so that during rehab he could hear better. She stated she did that and they lost them. She would like to talk with someone about getting them through the OR but having [place] pay for them as [place] told her they would pay for new ones since they lost the old ones. Hadoop Developer suggested calling the Audiology Clinic or the audiology Farm Products Shipper Shonna Ga and provided phone numbers. [facility] is kindly cosigning Audiology Farm Products Shipper as an FYI. PCSW to remain available. /es/ ADELSO Sandoval Primary Care Farm Products Shipper Signed: 01/02/2024 14:52 Receipt Acknowledged By: 01/06/2024 10:11 /es/ ADELSO BOLAÑOS SUPERVISOR EDUCATION ELLEN LEON ([facility])
--- OUTSIDE RECORDS SUMMARY | 2024-03-22 10:54 | XMS_ITS | Encounter Summary ---
Author Organization [facility] Address [address] [place] [address] Care Team Providers Care Director Of Community Life Name Role Phone Elsewhere, Pcp Primary Care Provider Unavailabl e Reason for Referral * Outpatient (Routine) - Authorized Specialty Diagnoses / Procedures Referred By Contac t Referred To Contact Diagnoses Fracture Acetabulum Closed Initial Left (HCC) Procedures DX Pelvis 1-2 Views Sera Avila P.A.-C., M.STarik [address] [place] [phone] [facility] Referral ID Status Reason Start Date Expiration Date V isits Requested Visits Authorized [id number] Authorized 12/27/2023 12/26/2024 1 1 * Outpatient (Routine) - Authorized Specialty Diagnoses / Procedures Referred By Contac t Referred To Contact Orthopedic Surgery Sera Avila P.A.-C., M.S. [address] [place] [phone] Naveed Higuera M.D. [address] [place] [phone] Referral ID Status Reason Start Date Expiration Date V isits Requested Visits Authorized [id number] Authorized 12/27/2023 06/27/2025 1 1 * Outpatient (Routine) - Authorized Specialty Diagnoses / Procedures Referred By Contac t Referred To Contact Diagnoses Fracture Acetabulum Closed Initial Left (HCC) Procedures DX Pelvis 1-2 Views Sera Avila P.A.-C., M.S. [address] [place] [phone] [facility] Referral ID Status Reason Start Date Expiration Date V isits Requested Visits Authorized [id number] Authorized 12/27/2023 12/26/2024 1 1 Encounter Details Date Type Department Care Team (Late st Contact Info) Description 12/27/2023 Orders Only Department of Orthopedic Surgery in [place], [place] [address] [place] [phone] Sera Avila P.A.-C., M.S. [address] [place] [phone] Fracture Acetabulum Closed Initial Left (HCC) (Primary Dx) Social History Tobacco Use Types Packs/Day Years Used Date Smoking Tobacco: Never Assessed Dental Answer Date Recorded Dental: Regular Dentist Unknown 11/23/19 Sex and Gender Information Value Date Recorded Sex Assigned at Not on file Gender Identity Not on file Sexual Orientation Not on file documented as of this encounter Plan of Treatment Scheduled Orders Name Type Priority Associated Diagnoses [...] Primary documented in this encounter Care Teams Director Of Community Life Relationship Specialty Start Date End Date Elsewhere, Pcp PCP - General Internal Medicine 11/23/23 documented as of this encounter
--- OUTSIDE RECORDS SUMMARY | 2024-03-22 10:56 | XMS_ITS | Encounter Summary ---
Author Organization [facility] Address [address] [place] [address] Care Team Providers Care Transportation Dispatcher Name Role Phone Elsewhere, Pcp Primary Care [...] on file documented as of this encounter Procedures Procedure [...] on filedocumented in this encounter Care Teams Transportation Dispatcher Relationship Specialty Start Date End Date Elsewhere, Pcp PCP - General Internal Medicine 11/23/23 documented as of this encounter
--- OUTSIDE RECORDS SUMMARY | 2024-03-22 10:56 | XMS_ITS | Encounter Summary ---
Author Organization [facility] Address [address] [place] [address] Care Team Providers Care Tile Setter Supervisor Name Role Phone Elsewhere, Pcp Primary Care Provider Unavailabl e Reason for Referral * Outpatient (Routine) - Authorized Specialty Diagnoses / Procedures Referred By Contac t Referred To Contact Diagnoses Retention Urinary Procedures URO Uroflow Rody Arriaga APRN, C.N.P., D.N.P. [address] [place] [phone] [facility] Region Referral ID Status Reason Start Date Expiration Date V isits Requested Visits Authorized [id number] Authorized 12/27/2023 12/26/2024 1 1 * Outpatient (Routine) - Authorized Specialty Diagnoses / Procedures Referred By Contac t Referred To Contact Urology Diagnoses Retention Urinary Rody Arriaga APRN, C.N.P., D.N.P. [address] [place] [address] [facility] Region Referral ID Status Reason Start Date Expiration Date V isits Requested Visits Authorized [id number] Authorized 12/27/2023 06/27/2025 1 1 Reason for [...] Hematoma Procedures EMERGENCY Carol Miller M.D. [address] [place] [phone] Referral ID Status Reason Start Date Expiration Date Visits Re quested Visits Authorized [id number] 1 1 Encounter Details Date Type Department Care Team (Latest Contact Info) Description 11/23/2023 12:47 PM CDT - 12/27/2023 10:25 AM CDT Hospital Encounter [facility], [place] [facility], Fifth Floor [address] [place] [phone] Carol Miller M.D. [address] [place] [phone] Jason Navarrete M.D. [address] [place] [phone] Landen Quinonez M.D. [address] [place] [phone] Alexi Khan M.D. [address] [place] [phone] Kong Mendoza M.D. [address] [place] [phone] Alexandra Varela M.D. [address] [place] [phone] Tamiko Barnett M.D., M.S. [address] [place] [phone] Gabriel Ramirez M.D. [address] [place] [address] Fracture Ilium Closed Initial Left (HCC) (Primary [...] AM CDT DISCHARGE SUMMARY BRIEF OVERVIEW Hospital: [facility] Discharge Provider: Gabriel Ramirez M.D. Primary [...] RST ROMB OR DISCHARGE DISPOSITION Home-Health Care [facility] [6] ACTIVE ISSUES REQUIRING FOLLOW UP ORTHOPEDIC [...] and either have them pushed to the [facility] or sent to Dr. Higuera's team via disc for review. You will be scheduled for an in person follow up visit at 12 weeks post surgery with repeat imaging at which time advancement to your weight bearing will be discussed.Please contact Dr. Higuera's team with any questions regarding follow up plan at [phone]. NO FOLLOW UP REQUIRED WITH TRAUMA-CRITICAL CARE-GENERAL SURGERY (TCGS): You do not require a follow up appointment at this time. If you are having difficulty, have questions or would like to be seen in follow-up, please call to make an appointment at [phone]. If you need to reach a provider on the TCGS service after hours, you may call the [facility] quill picking machine operator at and ask to speak the provider social service liaison for the Trauma-Critical Care-General Surgery (TCGS) Service. If you have forms that need addressed by the surgery team or outside records that need to be uploaded, please email them to [email or web address] or fax them at [phone]. Issue: Follow up with pelvis x-rays What [...] from Ladder Mr. Grayson was transported to [facility] as a level red trauma for [...] touchdown weight-bearing to the left lower extremity. [place] were removed at surgical site on 12/15. [...] discharge home with home health care services (longterm, health aide, PT/OT). Services, equipment, and adaptations [...] IP CONSULT TO NEUROLOGY IP CONSULT TO REPAIR TECHNICIAN WOUND CARE HUMANITIES IN MEDICINE SERVICES ([facility]) IP CONSULT TO STATION MECHANIC HELPER BUYER PLANNER IP CONSULT TO STATION MECHANIC HELPER BUYER PLANNER IP CONSULT TO VASCULAR MEDICINE IP CONSULT TO STATION MECHANIC HELPER BUYER PLANNER IP CONSULT TO CARE MANAGEMENT CONDITION AT DISCHARGE stable Discharge instructions were provided to the patient and caregiver(s). Total time spent in discharge services today: 35 minutes. documented in this encounter Discharge Instructions * Discharge Instructions* Stephanie Beckham - 11/24/2023 7:00 AM CDT You were discharged from the [facility] Trauma Service. Please identify this service [...] 12/27/2023 by Rissa Calles O.T. Contact information: [facility], [address], * Attachments The following attachments cannot be sent through Care Everywhere. * Acetaminophen (By mouth) (Central African) * Finasteride (By mouth) (Central African) * Melatonin (By mouth) (Central African) * Metoprolol (By injection) (Central African) * Polyethylene Glycol 3350 (By mouth) (Central African) * Laxative, Stimulant (By mouth) (Central African) * Tamsulosin (By mouth) (Central African) documented in this encounter Medications at Time [...] Closed With Stable Disruption Pelvis Ring Initial ([facility]) #8 Fracture Acetabulum Other Closed Initial Left ([facility]) #9 Fracture Ilium Closed Initial Left ([facility]) -S/p ORIF Acetabulum (11/25/23) -OTS-1 [...] home health being set up by the [facility], discharge later today If you have any questions or concerns please page the Trauma Service at [phone] * Hayley Durham L.G.S.W., M.S.W. - 12/27/2023 9:25 AM CDT SUBJECTIVE Social Work communicated with PT and patient's regarding walker availability at home. Social Work spoke to patient's after his return home. Patient's maroon/red bag did not return home withhim. Social Work inquired with nursing about the missing item. Social Work called [facility]. [facility] stated that the [facility] gave them two white bags and a [...] home health aide, PT, OT provided by [facility] Modifications to home environment: ramp, grab bars, relocate bedroom, and hospital bed Transportation: wheelchair van Anticipated discharge destination: Home OBJECTIVE Patient is medically ready for discharge. Ramp was installed on 12/23/23. Hospital bed will be delivered on 12/27/23. Home health aide and PT/OT being arranged by the [facility]. ASSESSMENT / PLAN Assessment Those noted above appear to have insight into the patient's needs at this time and are planning appropriately for discharge needs. They report agreement with the below plan with no further questions at this time. Plan Patient will discharge home on 12/27/23 with [facility] ([phone]) at 10:00 am. 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 - 12/26/2023 3:43 PM CDT Clinical Nutrition: Reassessment RECOMMENDATIONS REQUIRING MD/PROVIDER ORDER No changes at this time; continue current nutrition orders For questions about patient's nutritional care please contact pager [phone] on weekdays or [phone] on weekends/holidays. NUTRITION ASSESSMENT: Mr. Grayson is a 83 y.o. male who was admitted for fall off ladder Requested to see patient for evaluation of: oral intake encouragement. Current Diet Order: Adult Diet Regular Spoke with BARBER SHOP MANAGER in room with Carlos Alberto (he slept [...] 28.7 kg/m?? ESTIMATED NEEDS: Total Calorie Needs: 8972-5734 calories/day Method to Estimate Energy Needs: kcal/kg [...] Social Work spoke with Margie at the [facility] regarding home health services. Margie continues to work towards establishing PT/OT/longterm/home health aide. Margie also shares that patient's VA provider has created necessary PT/OT/longterm/homehealth orders. Social Work confirmed with patient's that [...] home health aide, PT, OT provided by [facility] Modifications to home environment: ramp, grab bars, relocate bedroom, and hospital bed Transportation: wheelchair van Anticipated discharge destination: Home OBJECTIVE Patient is medically ready for discharge. Ramp was installed on 12/23/23. Hospital bed will be delivered on 12/27/23. Home health aide and PT/OT being arranged by the [facility]. ASSESSMENT / PLAN Assessment Those noted above appear to have insight into the patient's needs at this time and are planning appropriately for discharge needs. They report agreement with the below plan with no further questions at this time. Plan Patient will discharge home on 12/27/23 with [facility] ([phone]) at 10:00 am. 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 - [...] concerns please page the Trauma Service at [phone] * Alexi Khan M.D. - 12/24/2023 1:25 PM CDT I saw and examined the patient along with the resident/CONCESSION MANAGER-PA team and agree with the findings and [...] ready for discharge. Alexi Khan MD, FACS Welding Specialist donor recruitment manager, [facility] Division of Trauma, Critical Care and General Surgery; Department of Surgery (Pager) (office) fax [email or web address] * Sheldon Leigh APRN, C.N.P., [...] voiding -Disposition to home with and HHC ([facility] pending approval) Mechanism of Injury: Fall from [...] Pending VA approval Please page trauma at [phone] with any questions regarding the care of this patient. Thanks. * Hayley Durham, L.G.S.W., M.S.W. - 12/23/2023 10:22 AM CDT SUBJECTIVE Social Work reviewed patient's 's voicemail from 12/22/23. She [facility] support for patient through [employer] in [place], [place] ([phone]; Olga or Mani-otr owner operator). Social Work communicated via email and the telephone with Clara [facility] and via phone multiple times with [facility] regarding discharge needs. Social Work sentcatheterization orders and description (Maori 14) to [facility] nurse supporting patient's PCP, Hayley Diaz. Addendum 1242: Social Work spoke to patient's . Ramp is being installed currently. Hospital bedwill be delivered on Tuesday. She requests wheelchair transport for a 12/27/23 discharge. OBJECTIVE Patient is awaiting DME and home health support arrangements in place via [facility] system to ensure safe discharge plan home with spousal support. ASSESSMENT / PLAN ASSESSMENT Patient's cognitive status precludes patient from placement in longterm facility. Patient's is not agreeable to placement in Memory Care facility. Patient's desires patient dischargeto home with home health care support and DME arranged by [facility]. Patient's appears experienced and competent in providing cares in the home after discharge. She is a retired home health nurse and also worked in terminal worker care on a unit with 19 Alzheimer's patients. Patient's appears to be appropriately planning for patient's discharge needs and serves as an excellent advocate for patient. Patient's is extremely proactive and collaborative with [facility] Social Work and [facility] Social Work. Discharge planning progress continues. Waiting on ramp installation, hospital bed delivery, home health aide arrangement, and OT/PT arrangement, as well as catheters. Ramp and bed are expected to be in place by 12/24/23. PLAN -Patient's discharge disposition is home with home health care (longterm, health aide, PT/OT) and DME provided (through [facility]) in advance on 12/27/23. -Transportation will be via wheelchair transport. -Social Work will assist with transition planning and will offer supportive visits as necessary during remainder of patient's hospital stay. Aimee Ahuja, M.S.W. 12/23/23 * Alexi Khan M.D. - 12/22/2023 3:10 PM CDT I saw and examined the patient along with the resident/CONCESSION MANAGER-PA team and agree with the findings and [...] with home health. Alexi Khan MD, FACS Welding Specialist donor recruitment manager, [facility] Division of Trauma, Critical Care and General Surgery; Department of Surgery (Pager) (office) fax [email or web address] * Sheldon Leigh APRN C.N.P., M.S.N. - [...] at home with HHC provided by the [facility] contrary to our recommendations of SNF vs Memory care unit. -Will continue to wait until [facility] can set up HHC for patient to [...] at this time Please page trauma at [phone] with any questions regarding the care of this patient. Thanks. * Hayley Durham L.G.S.W., M.S.W. - 12/21/2023 5:14 PM CDT SUBJECTIVE Social Work collaborated with colleague regarding progress towards discharge and reviewed relevant email communications with VA staff. Social Work sent email to three involved VA staff and left voicemail for Clara [facility] sr. social media & mobile manager. Social Work left voicemail for Margie Manley, [facility] ([phone]) inquiring about status of home health assistance and catheter supplies. Social Work spoke with patient's on the telephone. Patient's reports: -Hospital Bed will be delivered by [facility] in [place] possibly by Tuesday. -Ramp will possibly be installed on Tuesday or Tuesday. -Son will support patient's in initial days of patient returning home. -Patient's niece Heather and her will support patient's for a few days after patient's son returns to [place]. -Margie, VA staff, left her voicemail indicating [facility] cannot provide home health aide services and the VA is providing home health aide support only. -Urinary catheter supplies are needed prior to discharge. OBJECTIVE Patient is medically ready for discharge and is awaiting provision of necessary DME for safe discharge. ASSESSMENT / PLAN ASSESSMENT Patient's cognitive status precludes patient from placement in longterm facility. Patient's is not agreeable to placement [...] Patient's is extremely proactive and collaborative with [facility] Social Work and [facility] Social Work. PLAN -Social Work will contact Margie and other VA staff regarding DME, especially urinary catheters. -Patient's discharge disposition is home with home health care and DME provided (through VA) in advance. This may take 1-2 weeks (or more) for [facility] to arrange. -Patient's spouse intends to provide [...] to situation (unable to name town in [facility] that he is from.) Following Commands: One Step Commands One Step Commands: Follows one step commands with increased time, Follows one step commands with repetition Memory: Impairments noted Safety/Judgment Comments: supervise for safety in the hospital setting. LE Dressing LE Dressing Location: Supported sitting in bed LE Dressing Delivery: Educated LE Dressing Adaptive Equipment: Data Analysis Manager, Dressing stick, Sock aid, Long shoe horn [...] the city that he is from in [facility]. At this time patient will require [...] to self and that he is in [place]. He is able to follow directions this [...] Therapeutic functional activity, Neuromuscular re-education, Gait training IMPROVEMENT NURSE Visit Trackin Time Spent with Patient Therapeutic [...] of the left acetabulum. Family/Caregiver Present: Yes (BARBER SHOP MANAGER) Patient/Caregiver Goals: Pt goal to return home. [...] was contacted and patient's status was discussed (BARBER SHOP MANAGER present for therapy session) Patient was left in bed at end of session with call light in reach, all needs met and questions answered. Additional Staff Present During Session: BARBER SHOP MANAGER Assessment Time Dysphagia Assessment Completed: Clinical Impression/Recommendations: Patient seen for dysphagia treatment this date. Today's session focused on meal observation of regular diet textures to assess readiness to upgrade diet. Upon entering the room, patient noted to be drinking liquids in a recumbent position with BARBER SHOP MANAGER present. Educated both patient and BARBER SHOP MANAGER on importance of adherence to aspiration precautions. [...] 7:00am to 4:00pm: Our service pager at [facility]: #[phone] Our service pager at [facility]: #[phone] * Em Wellington, LOC, C.N.P. - 12/21/2023 [...] he is hoping to go home with [facility] and his at discharge. VITAL SIGNS: Temperature: [...] or concerns please page service pager at [phone]. * Kaycee Jimenez C.O.T.A. - 12/20/2023 3:34 [...] to follow. * Kaycee Bolaños M.A., O.T., [facility] - 12/20/2023 2:45 PM CDT PROGRESS NOTE: Received a secure chat in [employer]mate[employer] from registered dietitian from patient's nutrition team. [...] at this time Please page trauma at [phone] with any questions regarding the care of [...] last days with [place]. Family agrees with longterm facility, social work actively looking for placement. [...] Therapeutic functional activity, Neuromuscular re-education, Gait training IMPROVEMENT NURSE Visit Trackin (IMPROVEMENT NURSE 6th visit observation completed this date with [...] about patient's nutritional care please contact pager [phone] on weekdays or [phone] on weekends/holidays. NUTRITION ASSESSMENT: Mr. Grayson is [...] be possible to change his diet order. Beater Operator was informed OT was planning to trail [...] 7.1 kg ESTIMATED NEEDS: Total Calorie Needs: 4738-9080 calories/day Method to Estimate Energy Needs: kcal/kg [...] calling patient's spouse (Joseline, , mobile / [phone], home) to discuss discharge plans. Joseline is adamant about wanting to care for Mr. Grayson in their home, with support from home health care ([facility]) agency. These are details from that conversation: Joseline indicated that she has been working very hard to support the current discharge plan; for example, she had just called Clara and left message (BRANDY Elizabeth at [facility], ; ). She also spoke with someone named Edmar, who can access VA files andcan help provide funding for items/needs that [facility] can't fund. As soon as [facility] sends hospital bed and ramp (to be installed), she feels patient can go home safely. Joseline has already received some supplies from the VA, but not the aforementioned bed or ramp. She infers from supplies received that the [facility] has the necessary supply list (faxed by [...] a considerable amount of time.) She said [facility] (contracted through [facility]) is their preferred agency, and they have [...] emails from 3 different staff persons at [facility]. One had indicated that the form sent by Social Work on 12/19/2023 had not been received. A second had indicated that the form had not been received. A third had referenced a ashraf detail from the form, for they wondered where in the bathroom the grab bars are to be placed. (It is clear that the [facility] has the necessary information.) Social Work encouraged them to share the form and to contact patient's spouse toask such a question. The 3 staff persons are these: BRANDY Sandoval at [facility], ; KAMINI CarrionT, [facility] Outpatient Race Board Attendant Referral Coordination PT Internal Controls Consultant [facility] OBJECTIVE Mr. Carlos Alberto Grayson is an 83-year-old male patient hospitalized on FR 05C, Room 124 (for Fracture Ilium Closed Initial Left). ASSESSMENT / PLAN ASSESSMENT Patient was not assessed but continues to benefit from Social Work's coordination of care. PLAN -Patient's discharge disposition is home with home health care and DME provided (through [facility]) in advance. This may take 1-2 weeks (or more) for [facility] to arrange. -Patient's spouse intends to provide supportive in-home care as well. -Transportation needs will be addressed closer to time of discharge. -Social Work will assist with transition planning and will offer supportive visits as necessary during remainder of patient's hospital stay. Aimee Moe M.SPeggy. 12/20/23 * Kaycee Jimenez C.O.TYenny - 12/19/2023 3:56 PM CDT 12/19/23 1556 [...] regarding patient's discharge-related needs. Social Work called [facility] staff (BRANDY Elizabeth at [facility], ; ) to confirm receipt of completed form that was emailed (as attachment) on 12/16/2023. Clara said she could see the email but not the attachment (which is visible in Social Work's SentItems folder). Social Work asked Health Supervisor Boat Outfitting staff to fax Community Therapist Durable Medical Equipment Request Form to PT staff at [facility] ([facility], Therapy Department, FAX: [phone]). Clara expressed her intent to email Social Work when form has been received by PT staff at [facility]. OBJECTIVE Mr. Carlos Alberto Grayson is an [...] may take 1-2 weeks (or more) for [facility] to arrange. It has been reported that [...] - 12/19/2023 7:41 AM CDT SUBJECTIVE Mr. 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 ([facility]) #14 Decline Cognitive #15 Encephalopathy [...] #9 Fracture Acetabulum Other Closed Initial Left ([facility]) #10 Fracture Pelvis Multiple Closed With Stable Disruption Pelvis Ring Initial ([facility]) #11 Fracture Ilium Closed Initial Left ([facility]) -Multiple comminuted fractures of the [...] at this time Please page trauma at [phone] with any questions regarding the care of [...] #9 Fracture Acetabulum Other Closed Initial Left ([facility]) #10 Fracture Pelvis Multiple Closed With Stable Disruption Pelvis Ring Initial ([facility]) #11 Fracture Ilium Closed Initial Left ([facility]) -Multiple comminuted fractures of the [...] at this time Please page trauma at [phone] with any questions regarding the care of [...] please contact the Orthopedic Surgery house resident social service liaison at [phone] * Ailyn Reeder M.S., O.T., RADHA - [...] . Attempt to redirect patient that and sr. social media & mobile manager working on discharge planning and patient unable to redirect from wanting to call his . BARBER SHOP MANAGER reports that patient has called several times [...] Therapeutic functional activity, Neuromuscular re-education, Gait training IMPROVEMENT NURSE Visit Trackin Time Spent with Patient Therapeutic [...] - No follow up required in the [facility] clinic for the one rib fracture #9 Fracture Acetabulum Other Closed Initial Left ([facility]) #10 Fracture Pelvis Multiple Closed With Stable Disruption Pelvis Ring Initial ([facility]) #11 Fracture Ilium Closed Initial Left ([facility]) Multiple comminuted fractures of the [...] contact the Trauma service with questions at [phone]. * Mani Noe L.G.S.W., M.S.W. - 12/16/2023 9:07 AM CDT SUBJECTIVE Social Work engaged in record review and communicated with interdisciplinary team regarding patient's discharge-related needs. Social Work emailed completed Community Therapist Durable Medical Equipment Request Form to VA staff: [facility] ([phone]; [email or web address]). OBJECTIVE Mr. Carlos Alberto Grayson is an [...] provide necessary DME to patient's home (and [facility]), with patient's spouse providing the majority of [...] M.S.W. 12/16/23 * Kaycee Bolaños M.A., O.T., [facility] - 12/15/2023 3:50 PM CDT OT Dysphagia Progress Note: Patient about to go into the bathroom with BARBER SHOP MANAGER. OT had gathered cereal with milk, toast, [...] Therapist Assisted, Facilitated UE Dressing Items Included: salesperson floor coverings shirt UE Dressing Level of Assistance: Supervision/Set-up [...] to dressing stick, long handled shoehorn, and perinatology physician. These dressing aides will maximize patient independence [...] with family at assistive devices provided by AK. Mechanism of Injury: Fell from a 6 [...] - No follow up required in the [facility] clinic for the one rib fracture [...] contact the Trauma service with questions at [phone]. * Mani Noe L.G.SPeggy., M.S.W. - 12/15/2023 [...] received by day's end): [facility] ([phone]; ) OBJECTIVE Mr. Carlos Alberto Grayson is [...] about patient's nutritional care please contact pager [phone] on weekdays or [phone] on weekends/holidays. NUTRITION ASSESSMENT: Mr. Grayson is a 83 y.o. male who was admitted for trauma after fall from ladder suffering SAH, TBI, DVT, rib fracture, pleural effusion, pelvic fracture. Note history of dementia Requested to see patient for evaluation of: oral intake encouragement. Current Diet Order: Adult Diet Dysphagia; Thin (TN0); Soft and Bite-Sized (SB6) Spoke with BARBER SHOP MANAGER taking care of Carlos Alberto late yesterday [...] from late breakfast. He needs placement at [facility]. ANTHROPOMETRICS: Height: 180.3 cm Admission Weight: 86.3 kg (11/23/2023) Current Weight: 93.4 kg BMI (Calculated): 28.7 kg/m?? ESTIMATED NEEDS: Total Calorie Needs: 5104-0181 calories/day Method to Estimate Energy Needs: kcal/kg [...] with them for a couple of weeks [facility] patient d/c. Patient already owns a walker, [...] bench: required as patient is unable to casino gaming worker the shower safely and abide by weight bearing precautions. Recommending as opposed to shower chair in order to aid in abiding by weightbearing restrictions and limit need to step over side of tub - Bedside commode: required due to current level of difficulty transferring and limited room withinw. [facility]. [facility] bathroom for patient, transfer device, and [...] held showerhead: since patient is unable to casino gaming worker shower, he will require a handheld showerhead [...] min Ailyn Reeder M.S., O.T., MOT * Margei Roth P.T., D.P.T. - 12/14/2023 3:20 PM [...] Training: Yesterday, PT/OT notified by that the AK needed equipment recommendations for homegoing. PT/OT met [...] bench: required as patient is unable to casino gaming worker the shower safely and abide by weight [...] handheld showerhead: since patient is unable to casino gaming worker shower, he will require a handheld showerhead [...] Therapeutic functional activity, Neuromuscular re-education, Gait training IMPROVEMENT NURSE Visit Trackin Time Spent with Patient Therapeutic [...] with family at assistive devices provided by AK. Mechanism of Injury: Fell from a 6 [...] - No follow up required in the [facility] clinic for the one rib fracture [...] contact the Trauma service with questions at [phone]. * Ailyn Reeder, M.S., O.T., MOT - [...] - No follow up required in the [facility] clinic for the one rib fracture #9 Fracture Acetabulum Other Closed Initial Left ([facility]) #10 Fracture Pelvis Multiple Closed With Stable Disruption Pelvis Ring Initial ([facility]) #11 Fracture Ilium Closed Initial Left ([facility]) Multiple comminuted fractures of the [...] contact the Trauma service with questions at [phone]. * Hayley Durham L.G.S.W., M.S.W. - 12/13/2023 12:32 PM CDT SUBJECTIVE Social Work spoke with VA Soup Mixer, Colleen, on the phone. Social Work communicated with therapy regarding obtain completed VA DME form. OBJECTIVE Patient has been medically ready and awaiting placement. Referrals sent: [facility] - DECLINED (cannot accept 1:1) [facility]:1) [facility] (needs to [facility] 1:1) [facility] - will assess if off of Safety Plan for 24 hours [facility] - will assess if off of Safety Plan for 72 hours [facility] - will assess if off of Safety Plan for [facility] hours [facility] [address] [facility] - DECLINED (cannot accept 1:1 in their demential unit) [facility] - [facility] (no 's homes in [place] provide short term rehab; [facility] does not take 1:1) [facility] - DECLINED (Safety Plan) [facility] - DECLINED (Safety Plan) [facility] - DECLINED (Safety Plan) [facility] - DECLINED (Safety Plan) [facility] [place] [facility] - DECLINED (Safety Plan) [facility] - DECLINED (full) [facility] (they do not accept for short term rehab) [facility] - DECLINED (cannot provide for patient's needs) [facility] -[facility]INED (facility full) [facility] (facility full) [facility] - DECLINED (acuity too high) [facility] - DECLINED (bed not available) [facility] - DECLINED (full) [facility] - DECLINED (patient needs) [facility] - DECLINED (out of service area) [facility] -DECLINED (services not available) [facility] ASSESSMENT / PLAN ASSESSMENT Patient may now have medical readiness delayed by identification of blood clot. [facility] isassessing on 12/12/23. PLAN Social Work will obtain completed [facility] DME forms for hospital bed, ramp into home, transfer belt, shower chair, and pivot disk if therapy feels it is safe. Social Work will provide completed [facility] DME forms to Colleen AK Soup Mixer Patient's desires patient to discharge to longterm facility with PT/OT for 0-3 months. She endorses broad referrals throughout [place] and into [place] if necessary. She is interested in nursing homes/critical access hospitals/'s homes. [place] PAS: Conformation is: [id number] Patient's would like patient to return to home with home health care if longterm facility is not available. The VA system [...] Therapeutic functional activity, Neuromuscular re-education, Gait training IMPROVEMENT NURSE Visit Trackin Time Spent with Patient Therapeutic [...] per Vascular Medicine Ongoing PT/OT Dispo: Anticipate longterm facility; home health referrals also sent * Hayley Durham L.G.S.W., M.S.W. - 12/13/2023 8:02 AM CDT SUBJECTIVE Social Work communicated with Physical Therapy, Occupational Therapy, [facility] Social Work, Nursing, and patient's regarding discharge planning and VA DME paperwork. OBJECTIVE Patient is awaiting DME and home health care service establishment through the [facility] for return to home with support from , retired home health care nurse. ASSESSMENT / PLAN ASSESSMENT Patient's appears experienced and competent in providing cares in the home after discharge. She is a retired home health nurse and also worked in terminal worker care on a unit with 19 Alzheimer's patients. Patient's appears to be appropriately planning for patient's discharge needs and serves as an excellent advocate for patient. Patient's is extremely proactive and collaborative with [facility] Social Work and [facility] Social Work. Patient's anticipates meeting with PT/OT on 12/14/23 between 1-3pm for education on patient's mobility needs. PLAN Social Work will obtain VA DME form from [facility] and fax this to the VA as well as email [facility] Social Work of submission. Patient will discharge home with support from his . Patient will have home health care (nursing, PT, and OT) and DME arranged by AK Soup Mixer Clara Craig. Patient's will provide transportation. Patient and his anticipate moving to [place] to live with their son and [id number] in approximately 3 months with the completion of an addition to their home to accommodate patient and patient's . Social Work will continue to follow to provide support. Social Work will continue to follow to assist with discharge needs. Aimee Ahuja, M.S.W. 12/14/23 * Javier Sanchez P.T., Olivia.P.T., [facility] - 12/12/2023 4:21 PM CDT Physical [...] was left seated in bedside chair with BARBER SHOP MANAGER present with an appropriate call light within [...] Therapeutic functional activity, Neuromuscular re-education, Gait training IMPROVEMENT NURSE Visit Trackin Time Spent with Patient Therapeutic [...] arranged with neurosurgery in 1 month with [facility]. Please page Chief C service pager ([phone]) with questions or concerns. * Hayley Durham L.G.S.W., M.S.Live - 12/12/2023 1:05 PM CDT SUBJECTIVE Social Work communicated with the [facility], [facility], [facility], [facility], [facility], [facility], [facility], [facility], AntonellaRachel, [place] Soup Mixer, Service and Nursing regarding discharge planning. Social Work requested Colleen AK Soup Mixer, to begin process of supporting patient in the home with DME and home health care. OBJECTIVE Patient has been medically ready and awaiting placement. Referrals sent: [facility] - DECLINED (cannot accept 1:1) [facility] - DECLINED (cannot accept 1:1) [facility] (needs to be off 1:1) [facility] [place] - will assess if off of Safety Plan for 24 hours [facility] - will assess if off of Safety Plan for 72 hours [facility] - will assess if off of Safety Plan for 72 hours [facility] - DECLINED (cannot accept 1:1 in their demential unit) [facility] - [facility]ED (no 's homes in [place] provide short term rehab; [facility] does not take 1:1) [facility] - DECLINED (Safety Plan) [facility] - DECLINED (Safety Plan) [facility] - DECLINED (Safety Plan) [facility] - DECLINED (Safety Plan) [facility] [place] [facility] - DECLINED (Safety Plan) [facility] - DECLINED (full) [facility] (they do not accept for short term rehab) [facility] - DECLINED (cannot provide for patient's needs) [facility] -DECLINED (facility full) [facility] (facility full) [facility] - DECLINED (acuity too high) [facility] - DECLINED (bed not available) [facility] - DECLINED (full) [facility] - DECLINED (patient needs) [facility] - DECLINED (out of service area) [facility] -DECLINED (services not available) [facility] ASSESSMENT / PLAN ASSESSMENT Patient may now have medical readiness delayed by identification of blood clot. [facility] isassessing on 12/12/23. PLAN Social Work will obtain completed [facility] DME forms for hospital bed, straight urinary catheters, betadine wipes, urinal, bath/shower chair, and personal cleaning wipes. Social Work will provide completed [place] DME forms to Colleen AK Soup Mixer Patient's desires patient to discharge to longterm facility with PT/OT for 0-3 months. She endorses broad referrals throughout [place] and into [place] if necessary. She is interested in nursing homes/critical access hospitals/'s homes. [place] PAS: Conformation is: [id number] Patient's would like patient to return to home with home health care if longterm facility is not available. The VA system [...] questions answered. Additional Staff Present During Session: BARBER SHOP MANAGER Assessment Time Dysphagia Assessment Completed: 12:36 pm [...] 7:00am to 4:00pm: Our service pager at [facility]: #[phone] Our service pager at [facility]: #[phone] * Em Chino, RTarikN. - 12/12/2023 11:04 AM CDT SUBJECTIVE Discharge planning - new home health care referrals. Home Medical Care - Admitted Since 11/23/2023 Service Provider Request Status Selected Services Address Phone Fax Patient Preferred [facility] Pending - Request Sent N/A [address] [facility] [phone] -- Home Health Care Pending - Request Sent N/A [address] [facility] [address] [phone] -- [facility] Healthcare Services Pending - Request Sent N/A [address] [facility] -- [facility] Pending - Request Sent N/A [address] [facility] [address] [phone] -- [facility] Pending - Request Sent N/A [address] [facility] [phone] -- [facility] [place] Pending - Request Sent N/A [address] [facility] [phone] -- [facility] [place] Pending - Request Sent N/A [address], [place] [address] -- [facility] Pending - Request Sent N/A [address], [place] [address] [phone] -- OBJECTIVE Patient is admitted in [facility] 5C-room 124 ASSESSMENT / PLAN ASSESSMENT Patient is not seen at this time, however benefitted from care coordination. complex human resources manager sent home health care referrals to [...] complaints. Sitting comfortably in bed with a BARBER SHOP MANAGER at bedside. Vital Signs: BP (!) 128/52 [...] to abdominal incision on 11/25/2023 for ORIF. [place] were used to close the wounds. On [...] #9 Fracture Acetabulum Other Closed Initial Left ([facility]) #10 Fracture Pelvis Multiple Closed With Stable Disruption Pelvis Ring Initial ([facility]) #11 Fracture Ilium Closed Initial Left ([facility]) Multiple comminuted fractures of the [...] free to page the Trauma Service at [phone] with any questions in regards to the [...] that hopefully we can find him a longterm facility. He is understanding. Vital Signs: BP [...] to abdominal incision on 11/25/2023 for ORIF. [place] were used to close the wounds. On [...] - No follow up required in the [facility] clinic for the one rib fracture #9 Fracture Acetabulum Other Closed Initial Left ([facility]) #10 Fracture Pelvis Multiple Closed With Stable Disruption Pelvis Ring Initial ([facility]) #11 Fracture Ilium Closed Initial Left ([facility]) Multiple comminuted fractures of the [...] free to page the Trauma Service at [phone] with any questions in regards to the [...] / PLAN Mr. Grayson is hospitalized on [facility] Trauma for evaluation and management of: [...] 83 y.o. male who presented to the [facility] Emergency Department(ED) after suffering a fall from a ladder while attempting to repair a leak in his roof. He has significant medical comorbidities of cognitive impairment, BPH, macular degeneration, cataracts, [place]. Trauma survey was notable for a subarachnoid [...] was discussed with Dr. Barry Boston, HIM insolvency consultant. I personally spent a total of 35 minutes providing and coordinating care today. Thank you for the opportunity to care for this patient. We will sign off at this time. Please page the Geriatrics Consult Service at [phone] with any questions or concerns. * Cristal [...] #9 Fracture Acetabulum Other Closed Initial Left ([facility]) #10 Fracture Pelvis Multiple Closed With Stable Disruption Pelvis Ring Initial ([facility]) #11 Fracture Ilium Closed Initial Left ([facility]) Multiple comminuted fractures of the [...] To Alzheimer's Without Behavior Disturbance ([facility]) #15 Encephalopathy Metabolic #16 Delirium [...] free to page the Trauma Service at [phone] with any questions in regards to the plan of care. * Babr Davies M.D. - 12/09/2023 3:39 PM CDT Trauma Daily Progress Note ([id number]) Admission Date/Time: 11/23/2023 12:47 PM SUBJECTIVE Patient [...] #9 Fracture Acetabulum Other Closed Initial Left ([facility]) #10 Fracture Pelvis Multiple Closed With Stable Disruption Pelvis Ring Initial ([facility]) #11 Fracture Ilium Closed Initial Left ([facility]) Multiple comminuted fractures of the [...] team members are in agreement that pursuing longterm facility placement to focus on rehabilitation. Vision is does add that she would limit his admission to three-month and then wishes to take him home to [place] with family support as well as home health care if needed. Nursing staff will attempt to wean close observation as safely able in the context of 2 recent guided falls. Please page the [facility]-Trauma Service at [phone] with any questions in regards to the [...] cues and switched to left foot on IMPROVEMENT NURSE's foot to monitor weight bearing and verbal [...] Therapeutic functional activity, Neuromuscular re-education, Gait training IMPROVEMENT NURSE Visit Trackin Time Spent with Patient Therapeutic Interventions Therapeutic Activity (min): 20 min Therapeutic Exercise (min): 10 min Time Tracking Total Timed Units (min): 30 min Total Treatment Time (min): 30 min Maria Del Carmen Diaz P.T.ATarik * Hayley Durham L.G.SVianey, M.S.W. - 12/09/2023 9:33 AM CDT SUBJECTIVE Social Work communicated with [facility] and [place]. Social Work sent referral to [employer] [place], [place] (fax: [phone]). Social Work communicated with [facility] [place]Social Work communicated with [facility]. Social Work communicated with Nursing and Service regarding safety plan. Social Work left multiple voicemails with [facility] regarding admission assessment. Social Work left voicemail for Colleen AK Soup Mixer. Social Work left voicemail at [facility]. Social Work left voicemail at [facility]. SocialWork resent failed fax to [facility] and then called to verify working fax number. This recent fax also failed and Social Work left a voicemail for social service liaison requesting verification of fax number or new number. OBJECTIVE Patient is medically ready for discharge and awaiting placement. Referrals sent: [facility] [place] - will assess if off of Safety Plan [facility] [address] [facility] - DECLINED (Safety Plan) [facility] - DECLINED (Safety Plan[facility] - DECLINED (Safety Plan) [facility] - DECLINED (Safety Plan) [facility] [place] [facility] - DECLINED (Safety Plan) [facility] - DECLINED (full) [facility] (they do not accept for short term rehab) [facility] - DECLINED (cannot provide for patient's needs) [facility] -DECLINED (facility full) [facility] (facility full) [facility] - DECLINED (acuity too high) [facility] - DECLINED (bed not available) [facility] - DECLINED (full) [facility] - DECLINED (patient needs) ASSESSMENT / PLAN ASSESSMENT Patient's cognitive needs are a barrier to longterm placement. Patient's has extensive experience with home health care nursing and nursing home care nursing on an Alzheimer's unit. AK is able to support more than 2 hours of home health care services weekly. PLAN Patient's desires patient to discharge to longterm facility with PT/OT for 0-3 months. She endorses broad referrals throughout [place] and into [place] if necessary. She is interested in nursing homes/critical access hospitals/'s homes. [place] PAS: Conformation is: [id number] Patient's would like patient to return to home with home health care if longterm facility is not available. The VA system [...] greeted the team, and had no concerns. BARBER SHOP MANAGER at the bedside reports he slept poorly [...] time that he was spending with the BARBER SHOP MANAGER at the bedside. I have reviewed the [...] / PLAN Mr. Grayson is hospitalized on [facility] Trauma for evaluation and management of: [...] 83 y.o. male who presented to the [facility] Emergency Department(ED) after suffering a fall from a ladder while attempting to repair a leak in his roof. He has significant medical comorbidities of cognitive impairment, BPH, macular degeneration, cataracts, [place]. Trauma survey was notable for a subarachnoid [...] was discussed with Dr. Barry Boston, HIM insolvency consultant. I personally spent a total of 50 minutes providing and coordinating care today. Thank you for the opportunity to care for this patient. We will continue to follow with you. Pleasepage the Geriatrics Consult Service at [phone] with any questions or concerns. * Lizett [...] not acutely ill, no apparent distress. ENT: [place] Lungs: Normal rate and effort Heart: No extremity edema. Abdomen: nondistended, nontender Mental: Attention intact (completed backwards days) RASS 0. Converses well. Alert. Answers questions generally appropriately. Was telling nursing Jf did not want him to get catheterized. DIAGNOSTICS I have independently reviewed labs over 24 hrs. ASSESSMENT / PLAN Mr. Grayson is hospitalized on [facility] Trauma for evaluation and management of: Fracture Ilium Closed Initial Left (HCC). 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 Increase mobility to match ability. Frequent reorientation. Provide moderate level of social and cognitive stimulation. Treat dehydration and constipation. Nonpharmacologic sleep promotion strategies. The above plan of care was discussed with Dr. Coello, HIM insolvency consultant. I personally spent a total of 35 minutes providing and coordinating care today. Thank you for the opportunity to care for this patient. We will continue to follow with you. Pleasepage the Geriatrics Consult Service at [phone] with any questions or concerns. * Fidelina [...] and not believing he needs them; however, BARBER SHOP MANAGER confirmed he is still drinking them. Will [...] 1357 GI Function: Last BM Date: 12/08/23, [place] Stool Chart: Type 4: Like a sausage or snake, smooth and soft, Passing Flatus: Yes Weight since admission: Height: 180.3 cm Admission Weight: 86.3 kg (11/23/2023) Current Weight: 93.4 kg (11/30/2023) BMI (Calculated): 28.7 kg/m?? Weight change since admission: 7.1 kg Net IO Since Admission: -2,395.43 mL [12/08/23 1125] Estimated Needs: Total Calorie Needs: 9680-5405 calories/day Method to Estimate Energy Needs: kcal/kg [...] about patient's nutritional care please contact pager [phone] on weekdays 07:30-16:00 or [phone] on weekends/holidays ([facility]). * Maria Del Carmen Diaz, P.T.A. [...] cues and switched to left foot on IMPROVEMENT NURSE's foot to monitor weight bearing and verbal [...] Therapeutic functional activity, Neuromuscular re-education, Gait training IMPROVEMENT NURSE Visit Trackin Time Spent with Patient Therapeutic Interventions Therapeutic Activity (min): 20 min Therapeutic Exercise (min): 10 min Time Tracking Total Timed Units (min): 30 min Total Treatment Time (min): 30 min Maria Del Carmen Diaz P.TYenny * Chavez Ashby Jr., LOC, C.N.P., M.S.N. - 12/08/2023 8:37 AM CDT Trauma Daily Progress Note ([id number]) Admission Date/Time: 11/23/2023 12:47 PM SUBJECTIVE No [...] 0659 12/08/23 07 - 12/09/23 0659 Shift 9559-8376 0454-4498 9750-7768 24 Hour Total 4336-5330 5830-1414 6566-7607 24 Hour Total INTAKE P.O. 600 600 [...] #9 Fracture Acetabulum Other Closed Initial Left ([facility]) #10 Fracture Pelvis Multiple Closed With Stable Disruption Pelvis Ring Initial ([facility]) #11 Fracture Ilium Closed Initial Left ([facility]) Multiple comminuted fractures of the [...] planning. All are in agreement that pursuing longterm facility placement to focus on rehabilitation. Vision is does add that she would limit his admission to three-month and then wishes to take him home to [place] with family support as well as home health care if needed. I reviewed these updates with social work as well as the charge nurse to continue pursuing placement options in the area and we will look to weaned towards closed observation as safely able in the context of 2 recent guided falls. Please feel free to page me at [phone] between [phone]. If unable to reach me please page the [facility]-Trauma Service at [phone] with any questions in regards to the plan of care. * Alexi Khan M.D. - 12/07/2023 7:24 PM CDT I saw and examined the patient along with the resident/CONCESSION MANAGER-PA team and agree with the findings and [...] transfer to SNF. Alexi Khan MD, FACS Welding Specialist donor recruitment manager, [facility] [employer] Division of Trauma, Critical Care and General Surgery; Department of Surgery (Pager) (office) fax [email or web address] * Alexi Hahn Chaplain - 12/07/2023 10:[address] [facility] Spiritual Care Consult Note Patient: Carlos Alberto Grayson Age:83 y.o. [id number] Reason(s) for encounter: Spiritual Care contact for ongoing spiritual care. Summary: I was able to meet with Carlos Alberto Grayson . At the time of the visit the patient said that he had only been in the hospital for 30 minutes. He seemed pleasantly confused. He did engage with the landscape architecture professor on a spiritual conversation level. A prayer was said at the bedside. Upper Leather Cutter Jamil was present and his BARBER SHOP MANAGER was in the room with him. Spiritual Assessment Jainism Identification / Spiritual Practices: He was a Adventist and he seems to have a Anglican background. Spiritual Care interventions: Facilitated oriental orthodox/spiritual [...] requested. Chaplains can be contacted by paging [phone] ([facility] Alejandra) or [phone] (Anglican). * Nurys Cifuentes P.A.-C. - 12/07/2023 10:25 [...] not acutely ill, no apparent distress. ENT: [facility] Lungs: Normal rate and effort Heart: No extremity edema. Abdomen: nondistended, nontender Mental: Attention intact (completed backwards days and months May-Mar) No evidence of disorganized thinking. RASS 0. Converses well. DIAGNOSTICS I have independently reviewed labs over 24 hrs. ASSESSMENT / PLAN Mr. Grayson is hospitalized on [facility] Trauma for evaluation and management of: Fracture Ilium Closed Initial Left (HCC). 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 Comorbidities include (collateral received from Mikayla- [...] To Alzheimer's Without Behavior Disturbance ([facility]) #13 Decline Cognitive #14 Injury [...] of these General delirium prevention/management strategies: Minimize REPAIR TECHNICIAN-acting medications. Increase mobility to match ability. Frequent reorientation. Provide moderate level of social and cognitive stimulation. Treat dehydration and constipation. Nonpharmacologic sleep promotion strategies. The above plan of care was discussed with Dr. Coello, HIM insolvency consultant. I personally spent a total of 35 minutes providing and coordinating care today. Thank you for the opportunity to care for this patient. We will continue to follow with you. Pleasepage the Geriatrics Consult Service at [phone] with any questions or concerns. * Hayley Durham L.G.SPeggy., M.S.W. - 12/07/2023 10:03 AM CDT SUBJECTIVE Social Work contacted [place] [employer] regarding insurance coverage listed on patient's facesheet and . Social Work communicated with [facility], [facility], and [facility].Social Work resent referral package to [facility], [facility], and [facility]. Social Work sent referrals to [facility], [facility], [facility], [facility], and [facility]. Social Work spoke with patient's on [...] health care (20+ hours per week), and samaritan friends. 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 She is comfortable with cathing, hoier lifts, slings, wheelchairs, etc. [facility] with providing a hoier lift, sling, wheelchairs, walkers, incontinence supplies, and hospital bed. This can take some time to arrange, perhaps up to one month. Patient's will contact [facility] Soup [facility] Clara regarding this on 12/08/23. Patient's is [...] to await safe discharge plan. Referrals sent: [facility] - will assess if off of Safety Plan [facility] [address] ACO [facility] ACO [facility] [place] ACO [facility] Intermediate and Short Term Rehabilitation ACO - DECLINED (full) [facility]-DECL[facility] (they do not accept for short term rehab) [facility] - DECLINED (cannot provide for patient's needs) [facility] -DECLINED (facility full) [facility] (facility full) [facility] - DECLINED (acuity too high) [facility] - DECLINED (bed not available) [facility] - DECLINED (full) [facility] - DECLINED (patient needs) ASSESSMENT / PLAN ASSESSMENT Patient's continues to collaboratively plan for patient's safe discharge plan. PLAN Patient's desires patient to discharge to longterm facility with PT/OT for 0-3 months. She endorses broad referrals throughout [place] and into [place] if necessary. She is interested in nursing homes/critical access hospitals/'s homes. [place] PAS: Con[place] is: [id number] Patient's would like patient to return to home with home health care if longterm facility is not available. The [facility] system can assist patient with necessary equipment and supplies. Patient's is not agreeable to Memory Care placement. Social Work will continue to assist with discharge needs. Social Work will continue to follow to provide support. Aimee Ahuja, M.S.W. 12/07/23 * Chavez Ashby Jr., LOC, C.N.P., M.S.N. - 12/07/2023 7:16 AM CDT Trauma Daily Progress Note ([id number]) Admission Date/Time: 11/23/2023 12:47 PM SUBJECTIVE Mr. [...] 0659 12/07/23 07 - 12/08/23 0659 Shift 8025-8218 0234-5917 4111-5972 24 Hour Total 8919-5109 0494-7352 1628-2619 24 Hour Total INTAKE P.O. 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 All are in agreement that pursuing longterm facility placement to focus on rehabilitation. Vision is does add that she would limit his admission to three-month and then wishes to take him home to [place] with family support as well as home health care if needed. I reviewed these updates with social work as well as the charge nurse to continue pursuing placement options in the area and we will look to weaned towards closed observation as safely able in the context of 2 recent guided falls. Please feel free to page me at [phone] between 1125-1700. If unable to reach me please page the [facility]-Trauma Service at [phone] with any questions in regards to the [...] care. Social Work spoke with staff at [facility], [facility], and [facility] regarding[facility] referrals. Social Work resent referral to those three facilities. Social Work sent referrals to [facility] [address], [facility], [facility], [facility], [facility], [facility], and [facility]. OBJECTIVE Patient is now considered medically ready for discharge. Referrals sent: [facility] Intermediate and Short Term Rehabilitation ACO [facility] [place] [facility] (facility full) [facility] -DECLINED (facility full) [facility] (they do not accept for short term rehab) [facility] - SNF ASSESSMENT / PLAN ASSESSMENT Patient's is collaboratively planning appropriately for patient's discharge needs. PLAN Patient will discharge to longterm facility for short term rehab. Social Work [...] remains hemodynamically stable and afebrile. The bedside BARBER SHOP MANAGER states that the patient slept ok overnight [...] intake over multiple days. Discussed with bedside BARBER SHOP MANAGER about encouraging oral intake. OBJECTIVE Temperature: [36.3 [...] #9 Fracture Acetabulum Other Closed Initial Left ([facility]) #10 Fracture Pelvis Multiple Closed With Stable Disruption Pelvis Ring Initial ([facility]) #11 Fracture Ilium Closed Initial Left ([facility]) Multiple comminuted fractures of the [...] planning. All are in agreement that pursuing longterm facility placement to focus on rehabilitation. Vision is does add that she would limit his admission to three-month and then wishes to take him home to [place] with family support as well as home [...] concerns please page the Trauma Service at [phone] * Raegan Drew, P.T., D.P.T. - 12/06/2023 [...] Patient Comments: Laying in bed upon arrival. BARBER SHOP MANAGER at bedside. Precautions Weight Bearing Status: TTWB [...] RTarikN., C.W.C.N. - 12/06/2023 11:11 AM CDT [facility] Wound RN following up to assess [...] assessed while lying in bed with unit BARBER SHOP MANAGER at bedside. The right pretibial traumatic wound [...] Secondary Dressing Status Clean;Dry;Intact Changed by Wound circulation man Head to toe assessment completed. DRESSING RECOMMENDATIONS: [...] not acutely ill, no apparent distress. ENT: [facility] Lungs: Normal rate and effort Heart: No extremity edema. Abdomen: nondistended, nontender Mental: Attention intact (completed backwards days and months with one mistake) No evidence of disorganized thinking. RASS 0. CAM negative for acute delirium. DIAGNOSTICS I have independently reviewed labs over 24 hrs. ASSESSMENT / PLAN Mr. Grayson is hospitalized on [facility] Trauma for evaluation and management of: Fracture Ilium Closed Initial Left (HCC). 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 RECOMMENDATIONS: Continue I&O cathing every 6 hours Continue new tamsulosin and finasteride Continue increased dose of melatonin Continue IV olanzapine 2.5 mg PRN only if patient or staff safety is concerning General delirium prevention/management strategies: Minimize REPAIR TECHNICIAN-acting medications. Increase mobility to match ability. Frequent reorientation. Provide moderate level of social and cognitive stimulation. Treat dehydration and constipation. Nonpharmacologic sleep promotion strategies. The above plan of care was discussed with Dr. Coello, HIM insolvency consultant. I personally spent a total of 50 minutes providing and coordinating care today. Thank you for the opportunity to care for this patient. We will continue to follow with you. Pleasepage the Geriatrics Consult Service at [phone] with any questions or concerns. * Mickey [...] please contact the Orthopedic Surgery house resident social service liaison at [phone] * Alexi Khan M.D. - 12/05/2023 4:46 PM CDT I saw and examined the patient along with the resident/CONCESSION MANAGER-PA team and agree with the findings and [...] vs memory care. Alexi Khan MD, FACS Welding Specialist donor recruitment manager, [facility] [employer] Division of Trauma, Critical Care and General Surgery; Department of Surgery (Pager) (office) fax [email or web address] * Hayley Durham L.G.S.W., M.S.W. [...] ready for discharge by 12/09/23. Referrals sent: [facility]fac[facility]) [facility] -[facility] (facility full) [facility] (they do not accept for short term rehab) [facility] - SNF ASSESSMENT / PLAN ASSESSMENT Patient disposition is dependent on safety to return home or appropriateness for longterm facility based on cognition. PLAN Patient's would [...] Nutrition (since admission): Spoke with patient and BARBER SHOP MANAGER. Patient's appetite has been improving according to the BARBER SHOP MANAGER and patient himself. He frequently sips fluids during meals and is having no issues chewing or swallowing with his current texture (SB6). According to BARBER SHOP MANAGER, patient drinks his Ensure Plus and smoothie [...] 1357 GI Function: Last BM Date: 12/05/23, [place] Stool Chart: Type 3: Like a sausage but with cracks onthe surface, Passing Flatus: Yes Weight since admission: Height: 180.3 cm Admission Weight: 86.3 kg (11/23/2023) Current Weight: 93.4 kg (11/30/2023) BMI (Calculated): 28.7 kg/m?? Weight change since admission: 7.1 kg Net IO Since Admission: 439.57 mL [12/05/23 1435] Estimated Needs: Total Calorie Needs: 8953-7536 calories/day Method to Estimate Energy Needs: kcal/kg [...] about patient's nutritional care please contact pager [phone] on weekdays 07:30-16:00 or [phone] on weekends/holidays ([facility]). * Margie Roth P.T., D.P.T. - [...] and pain despite encouragement from PT and BARBER SHOP MANAGER. Continues to be disoriented to time, place, [...] get up from the bed with 2 BARBER SHOP MANAGER's in the room when I arrived this AM. He was pleasant and alert. He was onlyoriented to himself. He was unable to tell me where he was or why. He was semi re-directable but with multiple cues. Per bedside nurse and BARBER SHOP MANAGER he did have another assisted fall (or [...] CONSULT TO NEUROLOGICAL SURGERY IP CONSULT TO [facility] INTERNAL MEDICINE IP CONSULT TO [facility] INTERNAL MEDICINE IP CONSULT TO PHYSICAL MEDICINE & REHABILITATION IP CONSULT TO NEUROLOGY IP CONSULT TO REPAIR TECHNICIAN WOUND CARE HUMANITIES IN MEDICINE SERVICES ([facility]) IP CONSULT TO STATION MECHANIC HELPER BUYER PLANNER IP CONSULT TO STATION MECHANIC HELPER BUYER PLANNER ASSESSMENT / PLAN Diet: Adult Diet Dysphagia; [...] vein - Discussed with Dr. Khan (trauma insolvency consultant on 12/04) & due to the [...] - No follow up required in the [facility] clinic for the one rib fracture #9 Fracture Acetabulum Other Closed Initial Left (HCC) #10 Fracture Pelvis Multiple Closed With Stable Disruption Pelvis Ring Initial ([facility]) #11 Fracture Ilium Closed Initial Left ([facility]) Multiple comminuted fractures of the [...] in the upcoming days Electronically signed by: Laltia Bacon APRN, C.N.P., D.N.P. If you have any questions or concerns please page the Trauma Service at [phone] Addendum @ 2010: Spoke to Mrs. Grayson this afternoon about [...] Ferrara Pharm.D., R.Ph. * Izabella Burkett, O.T., [facility] - 12/05/2023 9:15 AM CDT Occupational Therapy [...] Date: 11/23/23 Payor: [employer] / Plan: [facility] / Product Type: Indemnity / [...] Patient sitting chair with breakfast present and BARBER SHOP MANAGER. Precautions Weight Bearing Status: TTWB LLE - [...] and patient's status was discussed, Other (comment) (BARBER SHOP MANAGER present for therapy session) Patient was left in bedside chair at end of session with call light in reach, all needs met and questions answered. Additional Staff Present During Session: BARBER SHOP MANAGER Assessment Time Dysphagia Assessment Completed: 915 Clinical Impression/Recommendations: Patient was observed sitting upright in bedside chair with scrambled eggs, breakfast potatoes, oatmeal, and diced pears with milk. Patient had no overt signs of aspiration with bites observed. Patient appeared to have poor appetite this morning and was only agreeable to few bites. BARBER SHOP MANAGER present during meal to ensure aspiration precautions [...] 7:00am to 4:00pm: Our service pager at [facility]: [phone] Our service pager at [facility]: #[phone] * Kezia Lopes APRN, C.N.P., D.N.P. - [...] / PLAN Mr. Grayson is hospitalized on [facility] Trauma for evaluation and management of: Fracture Ilium Closed Initial Left (HCC). 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 Comorbidities include (collateral received from Mikayla- [...] is concerning General delirium prevention/management strategies: Minimize REPAIR TECHNICIAN-acting medications. Increase mobility to match ability. Frequent [...] care was discussed with Dr. Coello, HIM insolvency consultant. I personally spent a total of 25 minutes providing and coordinating care today. Thank you for the opportunity to care for this patient. We will continue to follow with you. Pleasepage the Geriatrics Consult Service at [phone] with any questions or concerns. * Lizett [...] was sitting in bed with 1:1 room BARBER SHOP MANAGER and nurse providing cares. Nursing identified Carlos [...] this morning upon my arrival with a BARBER SHOP MANAGER in the room. He does not appear [...] the room from the chair. Per the BARBER SHOP MANAGER that was in the room the patient [...] the floor. I did speak with Ortho montesano this morning and we will obtain pelvic [...] TO HOSPITAL INTERNAL MEDICINE IP CONSULT TO [facility] INTERNAL MEDICINE IP CONSULT TO PHYSICAL MEDICINE & REHABILITATION IP CONSULT TO NEUROLOGY IP CONSULT TO REPAIR TECHNICIAN WOUND CARE HUMANITIES IN MEDICINE SERVICES ([facility]) IP CONSULT TO STATION MECHANIC HELPER BUYER PLANNER ASSESSMENT / PLAN Diet: Adult Diet Dysphagia; [...] concerns please page the Trauma Service at [phone] * Kezia Lopes APRN, C.N.P., D.N.P. - [...] / PLAN Mr. Grayson is hospitalized on [facility] Trauma for evaluation and management of: Fracture Ilium Closed Initial Left (HCC). 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 Comorbidities include (collateral received from Mikayla- [...] is concerning General delirium prevention/management strategies: Minimize REPAIR TECHNICIAN-acting medications. Increase mobility to match ability. Frequent [...] care was discussed with Dr. Green, HIM insolvency consultant. I personally spent a total of 25 minutes providing and coordinating care today. Thank you for the opportunity to care for this patient. We will continue to follow with you. Pleasepage the Geriatrics Consult Service at [phone] with any questions or concerns. * Lizett [...] Referral: OT dysphagia Onset Date: 11/23/23 Payor: [facility] ADMIN[facility]ATION / Plan: [facility] / Product Type: Indemnity / [...] and patient's status was discussed, Other (comment) (BARBER SHOP MANAGER present for therapy session) Patient was left in bedside chair at end of session with call light in reach, all needs met and questions answered. Additional Staff Present During Session: BARBER SHOP MANAGER Assessment Time Dysphagia Assessment Completed: 1:20 pm [...] 7:00am to 4:00pm: Our service pager at [facility]: #[phone] Our service pager at [facility]: #[phone] * Lalita Bacon, LOC, C.N.P., D.N.P. - 12/03/2023 9:45 AM CDT Images from the original note were not included. SUBJECTIVE I met and examined Mr. Grayson this morning. Mr. Grayson is hospital day 10 for management of histraumatic injuries following a fall from a ladder. On my initial arrival patient was asleep with the 1:1 BARBER SHOP MANAGER at bedside, I left the patient sleeping [...] IP CONSULT TO NEUROLOGY IP CONSULT TO REPAIR TECHNICIAN WOUND CARE HUMANITIES IN MEDICINE SERVICES ([facility]) IP CONSULT TO STATION MECHANIC HELPER BUYER PLANNER ASSESSMENT / PLAN Diet: Adult Diet Dysphagia; [...] concerns please page the Trauma Service at [phone] * Kezia Lopes APRN, C.N.P., D.N.P. - 12/03/2023 7:16 AM CDT Geriatrics Consult - Progress Note SUBJECTIVE Seen this morning. He was sleeping on and off. Per BARBER SHOP MANAGER, he ate all his breakfast. He had [...] / PLAN Mr. Grayson is hospitalized on [facility] Trauma for evaluation and management of: Fracture Ilium Closed Initial Left (HCC). 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 Comorbidities include (collateral received from Mikayla- [...] is concerning General delirium prevention/management strategies: Minimize REPAIR TECHNICIAN-acting medications. Increase mobility to match ability. Frequent reorientation. Provide moderate level of social and cognitive stimulation. Treat dehydration and constipation. Nonpharmacologic sleep promotion strategies. Continue new tamsulosin and finasteride. Continue q4h voiding schedule and encouraging him to sit at the edge of the bed or use commode for urination The above plan of care was discussed with Dr. Green, HIM insolvency consultant. I personally spent a total of 25 minutes providing and coordinating care today. Thank you for the opportunity to care for this patient. We will continue to follow with you. Pleasepage the Geriatrics Consult Service at [phone] with any questions or concerns. * Bella [...] please contact the Orthopedic Surgery house resident social service liaison at [phone] * Lalita Bacon APRN, C.N.P., D.N.P. - 12/02/2023 8:14 PM CDT Images from the original note were not included. SUBJECTIVE I met and examined Mr. Grayson this morning. Mr. Grayson is hospital day 9 for management of his traumatic injuries following a 6 ft fall from a ladder. He was resting in bed with the BARBER SHOP MANAGER sitting at bedside. He is alert but [...] CONSULT TO NEUROLOGICAL SURGERY IP CONSULT TO [facility] INTERNAL MEDICINE IP CONSULT TO [facility] INTERNAL MEDICINE IP CONSULT TO PHYSICAL MEDICINE & REHABILITATION IP CONSULT TO NEUROLOGY IP CONSULT TO REPAIR TECHNICIAN WOUND CARE HUMANITIES IN MEDICINE SERVICES ([facility]) IP CONSULT TO STATION MECHANIC HELPER BUYER PLANNER ASSESSMENT / PLAN Diet: Adult Diet Dysphagia; [...] #9 Fracture Acetabulum Other Closed Initial Left ([facility]) #10 Fracture Pelvis Multiple Closed With Stable Disruption Pelvis Ring Initial ([facility]) #11 Fracture Ilium Closed Initial Left ([facility]) Multiple comminuted fractures of the [...] To Alzheimer's Without Behavior Disturbance ([facility]) #15 Encephalopathy Metabolic #16 Delirium - Geriatric Medicine consulted; following - Stopped ramelteon d/t more alerted mental status yesterday but continuing with melatonin and prn olanzapine (agitation) - Continuing with delirium prevention and sleep enhancement as able Electronically signed by: Lalita Bacon APRN, C.N.P., D.N.P. If you have any questions or concerns please page the Trauma Service at [phone] * All-Tamia Fried, Ph.D., P.T., D.P.T. - [...] D.P.T. * Harmony Kee Ed.D., M.S., O.T., [facility] - 12/02/2023 2:28 PM CDT Occupational Therapy [...] Social Work spoke with BEN Elizabeth at [facility] ([phone]). Social Work communicated with Nicolette at [facility]. They will need patient off Safety Plan for 24 hours prior to admission. They also are unable to verify patient's Medicare number. OBJECTIVE Per VA Social Work, patient does not have VA short-term rehab or long-term care benefits. He does have [place] home care benefits. Patient is on Safety Plan. Patient is anticipated to be ready for discharge by 12/02/23. Referrals sent: [facility] (facility full) [facility] -[facility]IN[facility] (facility full) [facility] (they do not accept for short term rehab) [facility] - SNF ASSESSMENT / PLAN ASSESSMENT Patient's Safety Plan may complicate disposition. PLAN Patient's desires patient discharge to short term rehab as close to [place] as possible. Social Work will continue to [...] was in a drive in restaurant because [employer] brought the food right to him. He was unable to answer any other orientation questions. 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 Increase mobility to match ability. Frequent reorientation. Provide moderate level of social and cognitive stimulation. Treat dehydration and constipation. Nonpharmacologic sleep promotion strategies. Continue new tamsulosin and finasteride. Continue q4h voiding schedule and encouraging him to sit at the edge of the bed or use commode for urination The above plan of care was discussed with Dr. Cornelius Green [phone]), HIM insolvency consultant. I personally spent a total of 35 minutes providing and coordinating care today. Thank you for the opportunity to care for this patient. We will continue to follow with you. Pleasepage the Geriatrics Consult Service at [phone] with any questions or concerns. * Mickey [...] please contact the Orthopedic Surgery house resident social service liaison at [phone] * Landen Quinonez M.D. - 12/01/2023 5:04 PM CDT Patient seen reviewed with the trauma team. He had an episode of unresponsiveness on the commode. Patient was seen after this episode. Physical examination: Blood pressure 112/58, pulse 82, temperature 37 ??C, temperature source Oral, resp. rate 16, zzyhxy871.3 cm, weight 93.4 kg, SpO2 94%. Patient [...] pain. Adjusted ONS order per discussion with patient/BARBER SHOP MANAGER. BARBER SHOP MANAGER reports eating is going well, he just [...] 1404 GI Function: Last BM Date: 12/01/23, [place] Stool Chart: Type 6: Fluffy pieces with [...] Medications: Scheduled Meds:acetaminophen, 650 mg, oral, Q6H xvvtphkxmzsig-xhfeeuej-xrplhnpqj in Lipoderm, 1 g, topical, TID bisacodyL, [...] kg (11/23/2023) Current Weight: 93.4 kg (11/30/23) [place] Body Weight (Calculated) : 75.3 kg BMI (Calculated): 28.7 kg/m?? Net IO Since Admission: 5,176.57 mL [12/01/23 1353] Weight history: Wt Readings from Last 12 Encounters: 11/30/23 93.4 kg Weight Change History: No weight change per . No weight history in medical record. Estimated Needs: Total Calorie Needs: 8876-1086 calories/day Method to Estimate Energy Needs: kcal/kg [...] about patient's nutritional care please contact pager [phone] on weekdays 07:30-16:00 or [phone] on weekends/holidays ([facility]). * Maria Del Carmen Diaz, P.T.A. [...] Initial (HCC) 8. Other Shock (Hemorrhagic Shock) ([facility]) 9. Fracture Pelvis Multiple Closed [...] extremity places forward and foot placed on IMPROVEMENT NURSE's foot to monitor weight bearing. 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 RECOMMENDATIONS: General delirium prevention/management strategies: Minimize REPAIR TECHNICIAN-acting medications. Increase mobility to match ability. Frequent [...] care was discussed with Dr. Cornelius Green [phone]), HIM insolvency consultant. I personally spent a total of 50 minutes providing and coordinating care today. Thank you for the opportunity to care for this patient. We will continue to follow with you. Pleasepage the Geriatrics Consult Service at [phone] with any questions or concerns. * Hayley Durham L.G.S.W., M.S.W. - 12/01/2023 10:58 AM CDT SUBJECTIVE Social Work communicated with [facility] and updated them on patient's insurance coverage. Social Work sent fax request to patient's PCP MARCO A Pablo (fax: [phone]) for shortterm rehab referral outside of the [place] system. Social Work communicated with [facility] regarding regional [place] contracted short term rehab facilities. Social Work sent updated insurance information to [facility]. Social Work expanded referrals to include: [facility], [facility], [facility], and [facility] - SNF. OBJECTIVE Patient is anticipated to be ready for discharge by 12/02/23. Referrals sent: [facility] (facility full) [facility] (they do not accept for short term rehab) [facility] - SNF ASSESSMENT / PLAN ASSESSMENT Care Management obtained patient's VA number and Medicare number which will assist with accessing short term rehab placement. PLAN Patient's desires patient discharge to short term rehab as close to [place] as possible. Social Work will continue to [...] concerns, please page the Trauma Service at [phone]. * Cata Bower O.T., O.T.D. - 12/01/2023 [...] Date: 11/23/23 Payor: [employer] / Plan: [place] / Product Type: Indemnity / History [...] of the left acetabulum. Family/Caregiver Present: Yes (BARBER SHOP MANAGER) Patient/Caregiver Goals: None stated Patient Comments: Patient [...] was contacted and patient's status was discussed (BARBER SHOP MANAGER engaged in therapy session) Patient was left with BARBER SHOP MANAGER present at end of session with call light in reach, all needs met and questions answered. Additional Staff Present During Session: BARBER SHOP MANAGER Assessment Time Dysphagia Assessment Completed: [id number] Clinical Impression/Recommendations: Patient sleeping with BARBER SHOP MANAGER present upon OT arrival but patient arousable and pleasant. Patient continues to present with confusion and delirium but was pleasant and appropriate throughout today's session. Assessed safety with oral intake of minced and moist welsh toast, turkey sausage, mixed berries, and thin [...] 7:00am to 4:00pm: Our service pager at [facility]: #[phone] Our service pager at [facility]: #[phone] * Mickey Benton M.D. - 12/01/2023 6:26 [...] please contact the Orthopedic Surgery house resident social service liaison at [phone] * Ishan Collins R.R.T., L.R.T. - 11/30/2023 [...] Work spoke to Flavia in [place] at [place] in [place]. Social Work spoke to [place] [employer] regarding patient's lacking insurance information. Social Work called VA benefits. Social Work communicates with Service regarding contributing factors of current cognitive challenges. Service indicates baseline cognition exacerbated by brain injury and hospital delirium as likely contributing factors. OBJECTIVE Patient is a service connected which qualifies him for coverage for terminal worker care. The VA has to approve this terminal worker care. Patient is on Safety Plan. [...] 11/30/23 * Harmony Kee Ed.D., M.S., O.T., [facility] - 11/30/2023 2:38 PM CDT Occupational Therapy [...] and patient's status was discussed, Other (comment) (BARBER SHOP MANAGER engaged in therapy session) Patient was left in bedside chair at end of session with call light in reach, all needs met and questions answered. Assessment Clinical Impression/Recommendations: Patient was eating breakfast when OT arrived. BARBER SHOP MANAGER was present in the room and she [...] 7:00am to 4:00pm: Our service pager at [facility]: #[phone] Our service pager at [facility]: [phone] * Naveed Dan, P.A.-Barbara. - 11/30/2023 8:27 [...] concerns, please page the Trauma Service at [phone]. * Kelly Johnson P.A.-C. 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 RECOMMENDATIONS: General delirium prevention/management strategies: Minimize REPAIR TECHNICIAN-acting medications. Increase mobility to match ability. Frequent [...] care was discussed with Dr. Guru Bill ([phone]), HIM insolvency consultant. I personally spent a total of 35 minutes providing and coordinating care today. Thank you for the opportunity to care for this patient. We will continue to follow with you. Pleasepage the Geriatrics Consult Service at [phone] with any questions or concerns. * Mickey [...] please contact the Orthopedic Surgery house resident social service liaison at [phone] * Tamia Pedraza, Ph.D., P.T., D.P.T. - [...] move R LE as able. PT and BARBER SHOP MANAGER helped support B LE and trunk during [...] day. Social Work [facility] with [facility] ([phone]) inquiring about patient's VA benefits. OBJECTIVE Patient was in his room with his eyes open. He politely answered Social Work brief questions. He did not know his 's phone number. Patient is anticipated to be medically ready at end of week or weekend. Referrals sent: [facility] ASSESSMENT / PLAN ASSESSMENT It appears application for Medicaid is initiated. Patient's lack of insurance my be a barrier for placement. Patient appears well-supported by and family. PLAN Patient may need to discharge to longterm facility/swing bed. Social Work will continue to [...] R.N., C.W.C.N. - 11/29/2023 2:45 PM CDT [facility] Wound RN consulted to assess Carlos [...] lying in bed with family at bedside. [facility] RN consulted toassess the wound on [...] Secondary Dressing Status Dry;Clean;Intact Changed by Wound circulation man Partial head to toe skin assessment completed; [...] to face care. Current Nutrition (since admission): BARBER SHOP MANAGER notes that he has eaten everything for [...] Last BM Date: 11/28/23 (per chart review), [place] Stool Chart: Type 6: Fluffy pieces with [...] Medications: Scheduled Meds:acetaminophen, 650 mg, oral, Q6H vvdgxxetcozje-bfdcdaxb-kplinknwh in Lipoderm, 1 g, topical, TID bisacodyL, [...] 86.3 kg (11/23/2023) Current Weight: 86.6 kg [place] Body Weight (Calculated) : 75.3 kg BMI (Calculated): 26.6 kg/m?? Net IO Since Admission: 7,541.57 mL [11/29/23 1353] Weight history: Wt Readings from Last 12 Encounters: 11/24/23 86.6 kg Weight Change History: No weight change per . No weight history in medical record. Estimated Needs: Total Calorie Needs: 4773-1516 calories/day Method to Estimate Energy Needs: kcal/kg [...] about patient's nutritional care please contact pager [phone] on weekdays 07:30-16:00 or [phone] on weekends/holidays ([facility]). * Naveed Dan P.A.-C. - 11/29/2023 [...] contact the Special Pulmonary Evaluation Laboratory at [phone] with questions regarding this report. Physician: Luis Neely M.D. [id number] Christopher Arciniega M.D. [id number] DX Chest Portable 1 View Result Date: [...] concerns, please page the Trauma Service at [phone]. Associated attestation - Landen Quinonez M.D. - [...] bed with nonviolent restraints in place and BARBER SHOP MANAGER was in the room cleaning up. 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 We will continue the current sleep medication plan and taper as able. He was started on tamsulosin for urinary retention. He is still requiring frequent I&O cath. I do wonder if part of this is related to him lying flat in bed and query if encouraging him to get upto the commode would be helpful. RECOMMENDATIONS: General delirium prevention/management strategies: Minimize REPAIR TECHNICIAN-acting medications. Increase mobility to match ability. Frequent [...] care was discussed with Dr. Guru Bill ([phone]), HIM insolvency consultant. I personally spent a total of 35 minutes providing and coordinating care today. Thank you for the opportunity to care for this patient. We will continue to follow with you. Pleasepage the Geriatrics Consult Service at [phone] with any questions or concerns. * Mickey [...] both column acetabular fracture 11/[address] Higurea via limited ilioinguinal with ASIS osteotomy plus [...] please contact the Orthopedic Surgery house resident social service liaison at [phone] * Farnaz Reece C.R.T., L.R.T. - 11/29/2023 [...] waned. Patient shared he was in the [place] and sustained hearing loss and is compensated [...] makes some money. Patient is agreeable to [facility] long[facility] facility and applying for insurance if helpful to facilitate that. He also talksabout some having house payments so he wouldn't take that. Patient shares, I have been serving the [employer] my whole life. I've been living for the [employer]. He shares that this makes everything better. OBJECTIVE Patient is no longer in restraints. Patient is located on FR. 5C. ASSESSMENT / PLAN ASSESSMENT Social Work talking to patient's about discharge planning is warranted given patient's cognitive state. Patient does not appear to have insurance on file which may complicate discharge to longterm facility. PLAN Social Work will call patient's to discuss disposition. Social Work will continue to follow to provide support. Social Work will continue to follow to assist with discharge needs. Melissa Ahuja., M.S.W. 11/28/23 * Tresa Pizarro O.T., [facility] - 11/28/2023 4:13 PM CDT 11/28/23 1613 [...] / PLAN Mr. 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 Bill, HIM insolvency consultant. I personally spent a total of 35 minutes providing and coordinating care today. Thank you for the opportunity to care for this patient. We will continue to follow with you. Pleasepage the Geriatrics Consult Service at [phone] with any questions or concerns. * Naveed [...] seen this morning in his room with BARBER SHOP MANAGER at bedside. Patient is pleasantly alert and [...] concerns, please page the Trauma Service at [phone]. * Mickey Benton M.D. - 11/28/2023 2:52 [...] please contact the Orthopedic Surgery house resident social service liaison at [phone] * Destiney Bundy M.A., O.T., O.T.D., [facility] - 11/27/2023 12:44 PM CDT 11/27/23 1244 Reason Therapy Missed Reason Therapy Missed No visit this date The patient's RN reported patient had slowed oral management of pills and the BARBER SHOP MANAGER reported the patient had retention of food [...] past 24 hours. Last BM Date: 11/26/23 [place] Stool Chart: Type 7: Watery, no solid [...] when asked if we are in a [facility] and yes to hospital). Unable to register [...] / PLAN Mr. Grayson is hospitalized on [facility] Trauma and General Surgery for evaluation and management of: Fracture Ilium Closed Initial Left ([facility]) #1 History Of Falling #2 Subarachnoid Hematoma Trauma Without Loss Of Consciousness Subsequent #3 Contusion Scalp Initial #4 Fracture Rib One Open Initial Left #5 Contusion Other Intra Abdominal Organs Initial #6 Anemia Posthemorrhagic Acute (Blood Loss Anemia) #7 Fracture Acetabulum Other Closed Initial Left ([facility]) #8 Fracture Pelvis Multiple Closed With Stable Disruption Pelvis Ring Initial (HCC) #9 Fracture Ilium Closed Initial Left (HCC) #10 Encephalopathy Metabolic #11 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 Pleasepage the Geriatrics Consult Service at [phone] with any questions or concerns. * Naveed Dan P.A.-C. - 11/27/2023 8:31 AM CDT Images from the original note were not included. SUBJECTIVE Mr. Gryason was seen and examined by the Trauma team in his room this morning. Patient is pleasantly confused this morning, in restraints with mitts in place. Patient's BARBER SHOP MANAGER overnight states that there have been no [...] concerns, please page the Trauma Service at [phone]. * Mickey Benton M.D. - 11/27/2023 6:27 [...] please contact the Orthopedic Surgery house resident social service liaison at [phone] * Rae Coello M.D. - 11/26/2023 12:19 [...] and laying in bed. Last BM Date: (IMPROVEMENT NURSE) I have reviewed the current medication list. [...] person but not to place (hotel in [place]) or reason for hospitalization. Able to attend [...] / PLAN Mr. 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 Pleasepage the Geriatrics Consult Service at [phone] with any questions or concerns. * Naveed [...] % I/O last 3 completed shifts: In: 95472.4 Out: 3846.5 [Urine:1011; Drains:737.5; Blood:2098] Vitals and [...] time. They can be reached at pager #[phone]. For any additional questions or concerns, please page the Trauma Service at [phone]. * Bella Torrez M.D. - 11/26/2023 6:21 [...] 76 I/O last 3 completed shifts: In: 11328.9 Out: 3709 [Urine:981; Drains:630; Blood:2098] PHYSICAL EXAM [...] please contact the Orthopedic Surgery house resident social service liaison at [phone] * Carlyn Rivas M.B.BTarikS. - 11/26/2023 4:43 [...] massive transfusion protocol was activated and he qqkgavof2M pRBC + 2U FFP + 2U Platelets. [...] % I/O last 3 completed shifts: In: 94840 Out: 3988 [Urine:1690; Drains:200; Blood:2098] Vitals and [...] time. They can be reached at pager #[phone]. For any additional questions or concerns, please page the Trauma Service at [phone]. Associated attestation - Lenora Johnson M.D. - 11/27/2023 1:36 AM CDT I saw and evaluated the patient, participating in the ashraf portions of the service. I reviewed Mr. Dan's note. I agree with his findings and plan. [facility] TRAUMA COMMUNITY HEALTH NURSE SUPERVISOR NOTE SUBJECTIVE Mr. Grayson is an 83 [...] please contact the Orthopedic Surgery house resident social service liaison at [phone] Nura Benton M.D. (PGY-3) * Zia Lundberg [...] Consultations: None Emily Lundberg, Pharm.D., R.Ph. Pager [phone] * Barry Fitzpatrick P.A.-C., M.S. - 11/25/2023 [...] PLAN Mr. Grayson is hospitalized on RST [facility] Trauma and General Surgery for evaluation [...] To Alzheimer's Without Behavior Disturbance ([facility]) What Matters Most to Mr. Grayson: Personal interests/hobbies: Fixing things Relationships/supports: in samaritan Mentation: Baseline cognition: Independent of ADLs and [...] issues: BPH, cataracts, glaucoma Anticipated disposition plan: Intermediate Facility RECOMMENDATIONS: 1. Initiate ramelteon and suvorexant [...] care was discussed with Dr. Rae Coello [phone]), HIM insolvency consultant. I personally spent a total 25 minutes in counseling and coordination of care as documented above. Thank you for the opportunity to care for this patient. We will continue to follow with you. Pleasepage the Geriatrics Consult Service at [phone]. * Carlyn Rivas M.B.B.S. - 11/25/2023 5:08 [...] SQH at discretion of primary service. * Rfaal Scott P.A.-C. - 11/24/2023 8:04 AM CDT [...] Findings discussed with Bereket Snider M.D. (pager #[phone]) on 11/23/2023 at 1:[address] Abdomen [...] time. They can be reached at pager #[phone]. For any additional questions or concerns, please page the Trauma Service at [phone]. * Dorian Ferrara M.D., Ph.D. - 11/24/2023 [...] starting QTP and will allow some PRNs ([place] route as spitting out meds) CV: VSS [...] Consultations: None Emily Lundberg PharmLars., R.Ph. Pager [phone] * Francisco Staley M.D. - 11/24/2023 6:35 [...] to name and year; reports being in [facility] Vision grossly intact. EOMI. Normal V1-V3 [...] cares per ICU team Chief C service, [phone] Montez Tellez M.D., Ph.D. * Shay Lee [...] Barron MDIV - 11/23/2023 2:[address] [facility] Spiritual Care Progress Note Patient: Carlos Alberto Grayson Age:83 y.o. Location: [id number] Reason(s) for encounter: Spiritual Care contact to introduce spiritual care service and assess for potential spiritual care needs. Summary: I was able to meet with Carlos Alberto Grayson and his for prayer. I provided a brief prayer. His said their tiler's assistant and tiler's assistant's are also here and that they have [...] requested. Chaplains can be contacted by paging [phone] ([place]) or [phone] ([facility]). * Eunice Huston L.I.C.S.W., M.S.W. - 11/23/2023 1:13 PM CDT SUBJECTIVE Emergency Department sr. social media & mobile manager is present at the R1 resuscitation bay in the context of an Adult Level Red Trauma activation. Per EMS: Patient fell at home. EMS reports patient's will be coming from home. EMS reports patient's expresses concern patient may be showing signs of Dementia. EMS reports patient is alertand oriented to himself, which reportedly says is his baseline currently. OBJECTIVE Emergency Department sr. social media & mobile manager presents to the resuscitation bay in the context of an Adult Level Red Trauma. Patient was brought by [place] ground ambulance. Checked in with the treatment [...] physician. Previously he was seen at the [facility], but it has been a number ofyears. [...] deterioration of the following conditions: shock trauma REPAIR TECHNICIAN failure or compromise hemorrhage Critical care [...] 9:00 AM CDTAssociated Order(s): IP CONSULT TO STATION MECHANIC HELPER BUYER PLANNER [facility] Spiritual Care Progress Note Patient: Carlos Alberto Grayson Age:83 y.o. Location: [address] Reason(s) for encounter: Responded to Spiritual [...] and alright duringhis time in the hospital. Upper Leather Cutter provided the following interventions: Meaning/Charis Exploration Therapeutic Listening Spiritual Assessment Jainism Identification / Spiritual Practices: Carlos Alberto is a Anglican Adventist Spiritual Care outcomes: Patient/family was appreciative of spiritual care support. Spiritual Care Plan / Recommendations: Will remain available for spiritual care as needed or requested. Chaplains can be contacted by paging [phone] ([place]) or [phone] (Anglican). * Izabela Bundy, LOC, C.N.P., D.N.P. - [...] 1:30 PM CDTAssociated Order(s): IP CONSULT TO STATION MECHANIC HELPER BUYER PLANNER [facility] Spiritual Care Consult Note Patient: Carlos Alberto Grayson Age:83 y.o. Location: [id number] Reason(s) for encounter: Responded to Spiritual Care Consult. Summary: I was able to meet with Carlos Alberto Grayson and prayed with him today. He also prayed for his leg. Spiritual Care Plan / Recommendations: Will remain available for spiritual care as needed or requested. Chaplains can be contacted by paging [phone] ([place]) or [phone] (Anglican). * Isa Cedillo - 12/01/2023 9:12 PM CDTAssociated Order(s): IP CONSULT TO STATION MECHANIC HELPER BUYER PLANNER [facility] Spiritual Care Consult Note Patient: Carlos Alberto Grayson Age:83 y.o. Location: [address]/[facility]-P Reason(s) for encounter: Responded to Spiritual [...] requested. Chaplains can be contacted by paging [phone] ([place]) or [phone] (Anglican). * Josef Peraza M.D., M.E. - 11/29/2023 12:28 PM CDTAssociated Order(s): IP CONSULT TO NEUROLOGY NEUROLOGY CONSULT NOTE SUBJECTIVE Reason for consult: Recommendations regarding serial punctate hemorrhage increase Primary Team: RST [facility]DR[facility] Trauma Neurology Supervising Welding Specialist: Dr. Ramez Vazquez HISTORY OF PRESENT ILLNESS: [...] CAA. Patient seen and discussed with our insolvency consultant Dr. Ramez Vazquez. We appreciate the consult. Please page [phone] with any questions regarding our recommendations. Josef [...] deer hunting. Prior Mobility/Functional Transfers Level of [place]: Independent Home Living Type of Home: House [...] deer hunting. Prior Mobility/Functional Transfers Level of [place]: Independent Home Living Type of Home: House [...] Of Falling [Z91.81] Other Shock (Hemorrhagic Shock) ([facility]) [R57.8] Retroperitoneal Hematoma [K68.3] Reason [...] With Loss Of Consciousness Initial ([facility]) Delirium Postprocedural Hemorrhagic Shock Initial [...] at end of session with RN and BARBER SHOP MANAGER present, needs met and questions answered. Assessment [...] 7:00am to 4:00pm: Our service pager at [facility]: #[phone] Our service pager at [facility]: #[phone] * Alyson Bueno L.G.S.W., M.S.W. - 11/25/2023 11:02 AM CDT Psychosocial Assessment SUBJECTIVE Assessment Information Referral Source: CM/BEN Referral Referral Reason: Psychosocial assessment, Coping, adjustment and support Primary Language: [place] Distribution Clerk Services Used: No Sexuality/Pronoun: / Person(s) present [...] on the ladder. Patient is currently on [facility] Trauma Critical Care and General Surgery service on MB 7B for fracture ilium closed initial left. Social History Early Growth and Development: The patient met social and developmental milestones as expected. Citizenship: [place] 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 social media & mobile manager had conversation regarding current trauma Current Stressors [...] Primary care clinic and provider: PCP through [facility] in [place] Additional Resources: [facility] clinic Anticipated Needs Patient's anticipated needs unknown [...] and reviewed the role of an inpatient sr. social media & mobile manager. Ramon expressed understanding and was agreeable to the visit. For the purpose of this assessment, Ramon appears to be a reliable historian. Ramon shares they heard the patient calling for help and witnessed them laying on the ground next to their large ladder. Patient claims they were not climbing on the ladder. Patient is currently on [facility] Trauma Critical Care and General Surgery [...] alcohol use, or drug use. Patient enjoys Adventist music and the Bible. Ramon shares from previous RN experience working a memory care, the patient's memory issues have declined over the past several months. Ramon expressed concerns the patient may have stage 2 or 3 dementia at this time and would like [place] to provide a formal dementia diagnosis. Social work discussed the importance of utilizing primary care for a dementia diagnosis- Ramon shares she has attempted several times and the patient will call and cancel each appointment however the [facility] PCP will call Ramon and express concerns [...] Mr. 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 He lives with his in a multilevel [...] consciousness. He was emergently brought to the [facility] where he had a trauma evaluation. 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 Grayson is an 83-year-old [...] / PLAN Mr. Grayson is hospitalized on [facility] Trauma and General Surgery for evaluation and [...] Grayson: Personal interests/hobbies: Fixing things Relationships/supports: in samaritan Mentation: Baseline cognition: Independent of ADLs and [...] issues: BPH, cataracts, glaucoma Anticipated disposition plan: Intermediate Facility RECOMMENDATIONS: 1. Initiate ramelteon and suvorexant [...] care was discussed with Dr. Rae Coello ([phone]), HIM insolvency consultant. I personally spent a total 80 minutes in counseling and coordination of care as documented above. Thank you for the opportunity to care for this patient. We will continue to follow with you. Pleasepage the Geriatrics Consult Service at [phone]. * Umm Schmidt M.D. - 11/23/2023 7:15 [...] 6 ft ladder Anticoagulation Status: None Supervising insolvency consultant: Dr. Johnson, [facility] trauma insolvency consultant. PREHOSPITAL INFORMATION Time of injury: 1115 [...] & Screen Expiration 11/26/2023 23:59 Testing Location [place] Troponin T, Baseline with 2 Hour/6 Hour [...] Findings discussed with Bereket Snider M.D. (pager #[phone]) on 11/23/2023 at 1:[address] Abdomen [...] 83 y.o. male who presents to the [facility] Trauma Resuscitation [place] status post fall from a ladder. Patient [...] was seen and examined with Dr. Jasso, [facility] trauma insolvency consultant, who was in agreement with the above plan and assessment. Please page the trauma service at [phone] with any questions or concerns. Edmar Love M.D., Ph.D. General Surgery 11/23/23 2:54 PM CDT Associated attestation - Lenora Johnson M.D. - 11/23/2023 9:01 PM CDT I saw and evaluated the patient, participating in the ashraf portions of the service. I reviewed Dr. Love's note. I agree with his findings and plan. [facility] COMMUNITY HEALTH NURSE SUPERVISOR NOTE SUBJECTIVE Mr. Grayson is an 83-year-old male patient who fell off a 6 ft ladder at approximately 11:15 a.m..The patient's spouse found the patient lying down calling out for help. Notably, the patient's spouse reports a suspicion that the patient has been demonstrating some signs of dementia recently. The patient had signs of injury to his left episcopalian and complained of severe left hip pain. [...] The patient will be admitted to the [facility] Trauma ICU. My colleague, Dr. Jason Navarrete has been made aware. We will obtain tertiary trauma survey tomorrow or when otherwise appropriate. We will appreciatethe recommendations of our Geriatric Medicine colleagues. Will follow up on the recommendations of our OTS colleagues and repeat evaluation by Neurosurgery after tomorrow's head CT. * Toni Vazquez M.D. - 11/23/2023 2:32 PM CDTAssociated Order(s): Orthopedic Surgery consult ([facility]) ORTHOPEDIC SURGERY CONSULT NOTE Today's date: 11/23/2023 Referring Provider - Orthopedic Surgery consult ([facility]) Referring Provider: Bereket Snider M.D. - Emergency department, resuscitation [place] Chief Complaint -or- Reason for Consult Left [...] a level red 3 to the resuscitation [place] in the [facility] Emergency Department. Orthopedic surgery was consulted [...] evaluated the patient expeditiously in the resuscitation [place] after being made aware of his acetabular [...] Findings discussed with Bereket Snider M.D. (pager #[phone]) on 11/23/2023 at 1:[address] Abdomen [...] above-noted acetabular fracture. . ASSESSMENT / PLAN [facility] C05 -- Carlos Alberto Grayson ([phone]) 83 y.o.male #1 Left comminuted acetabular fracture [...] his acetabular fracture - Hospital admission to [facility] - standard preoperative labs and evaluation - we will need surgical clearance either by the ICU or HIM This is a josé miguel resident note that will be staffed within 24 hours. Please refer to the supervisory note of the OTS Chief Resident social service liaison for final recommendations. Please contact OTS-1 ([place]) at [phone] with any questions or concerns regarding this patient. If outside of 06:00 - 18:00 on weekdays or any time on the weekend, please contact the [facility] Orthopedic Surgery house resident social service liaison at [phone] (This note was created with the use of [employer] voice recognition software. While this note has been reviewed, some errors may still persist. Please contact the author with any questions.) Toni Vazquez MD Orthopedic Surgery, PGY-1 11:15 PM CDT 11/23/2023 * Neihsa Waldrop APRN, C.N.P., M.S.N. - 11/23/2023 1:56 PM CDTAssociated Order(s): IP CONSULT TO NEUROLOGICAL SURGERY REASON FOR CONSULT: Level red Trauma, resulting in ICH HISTORY OF PRESENT ILLNESS: Carlos Alberto Grayson is a 83 y.o. male with no known medical history who presents to [facility] via EMS followinga suspected fall from a [...] GCS: 14 (E4 V4 M6) - General: [facility] [place], alert, supine in bed; at bedside, C [...] touch throughout - Coordination: No dysmetria on [id number]-ad-fvwc testing. Results from last 7 days Lab [...] for EMS. He was brought to the [facility] ED as a level red trauma. Imaging [...] been discussed with the chief neurosurgery resident social service liaison, Dr. Schmidt. Please look to her forthcoming supervisory note in the next 12-24 hours. For any questions or concerns regardingthe neurosurgical plan of care for this patient, please page the Neurosurgery Chief C Service Pager, [phone]. Times: Consult placed: 13:26 (while in scanner) [...] remain safe in chair or bed with BARBER SHOP MANAGER sitting at the bedside to monitor patient. [...] was able to get outside with the BARBER SHOP MANAGER. Patient remained safe during this shift. Problem: [...] has been awake for much of the logistical engineer. Pleasantly confused. Last evening mentioned seeing 2 frogs in his room (actually trash on his floor and an electrical box on the wall) but no other hallucinations present since. Drain and vac DC'd by sx last evening. Continues to require I&O cathing. Pleasant and cooperative. * Rogelio Arriola R.N. - 12/04/2023 8:05 AM CDT Beater Operator was paged for staff assist in pt [...] found comfort reading the Bible with the BARBER SHOP MANAGER. Pain waswell controlled with sched medications. Pt [...] injury while in restraint Outcome: Progressing * Sonlai Castellanos R.N. - 11/29/2023 6:38 AM CDT [...] 11/27/23 10:40 AM CDT * Rommel Huber R.R.TTarki, L.R.TTarik - 11/27/2023 6:06 AM CDT Patient [...] 1:24 PM CDT * Kandy Mann L.R.TTarik, WELLHEAD PUMPER-ACCS - 11/25/2023 5:24 PM CDT Patient is [...] BASE EXC ART -4 L Lawrence Hurtado, WELLHEAD PUMPER-ACCS 11/25/23 5:24 PM CDT * Umm Carbone [...] patient is able to achieve predicted VC >= 50% and NIF <= -30 five times in phase 1. OR RT will continue patient on HIT pathway until patient is able to achieve predicted VC >= 50% and NIF <= -30 once, 24 hours after HIT order [...] patient is able to achieve predicted VC >= 50% and NIF <= -30 five times in phase 1. OR RT will continue patient on HIT pathway until patient is able to achieve predicted VC >= 50% and NIF <= -30 once, 24 hours after HIT order is discontinued in phase 3. Lawrence Cody 11/24/23 4:31 AM CDT * Bereket Pike R.R.T., L.R.T. - 11/23/2023 6:26 PM CDT Patient started [...] patient is able to achieve predicted VC >= 50% and NIF <= -30 five times in phase 1. OR RT will continue patient on HIT pathway until patient is able to achieve predicted VC >= 50% and NIF <= -30 once, 24 hours after HIT order is discontinued in phase 3. Bereket Pike R.R.T., Alexandrea.R.T. 11/23/23 6:27 PM CDT * Bereket Pike [...] bearing. Please contact OTS 1 team at [phone] with any questions regarding the Orthopedic management of this patient. * Flavia Brown R.R.T. L.R.T. - 11/23/2023 1:12 PM CDT RT [...] Diagnosis Fracture Acetabulum Closed Initial Left (HCC) Sales Department Manager A cutting table operator first actively participated and was necessary for one [...] including history, physical exam, orders, and plan. Lennyee with the note of the resident. 83-year-old [...] intervention. The patient was admitted to the [facility] ICU for further evaluation and treatment. [...] embolization. Will plan to admit to 7 [facility] ICU on trauma surgery team. Final [...] Care for this patient was transferred to [place] at shift change. Please see associated documentation [...] Conscious Initial (HCC) Other Shock (Hemorrhagic Shock) ([facility]) Bereket Snider M.D. Resident 11/23/231707 documented in this encounter Miscellaneous Notes * Hospital Course - Rody Arriaga, LOC, C.N.P., D.N.P. - 11/23/2023 5:56 PM CDT #1 Status post Fall 6 feet from Ladder Mr. Grayson was transported to [facility] as a level red trauma for [...] #8 Fracture Acetabulum Other Closed Initial Left ([facility]) #9 Fracture Ilium Closed Initial Left ([facility]) Multiple comminuted fractures of left anterior and posterior pubic rami, acetabulum, iliac wing extending to involve the left sacroiliac joint Orthopedic Trauma Service was consulted (Dr. Dietrich's OTS 4). Traction pin was placed and he was taken to the operating room on 11/24 for ORIF of the acetabulum. Weightbearing restrictions include touchdown weight-bearing to the left lower extremity. [place] were removed at surgical site on 12/15. [...] discharge home with home health care services (longterm, health aide, PT/OT). Services, equipment, and adaptations [...] documented in this encounter Plan of Treatment Pending Results Name Type Priority Associated Diagnoses [...] Anatomical Region Laterality Modality Head, Neuroradiology [facility] , [facility], [facility] N/A Computed Tomography, Compute d Tomography 12/26/2023 [...] CDT 12/24/2023 4:01 PM CDT Sheldon Leigh APRN C.N.P., M.S.N. [place] [address], [facility] [address] [place] [address] * US Lower Extremity Veins Left (12/19/2023 [...] and management can be found on the [employer] site. Link [email or web address]/topic/clinical-answers/[email or web address]/[email or web address] 77692 Procedure Note Rommel Granados M.D. - 12/19/2023 [...] thrombosis and management can be found on theC[employer]ium Links site. Linkhttps://[email or web address] Fragrancesorg/topic/clinical-answers/[email or web address]/[facility] -2041 8447 IMPRESSION: Stable venous ultrasound exam of the left lower extremity. No significantchange in the short segment acute DVT in the left soleal vein comparedultrasound 12/12/2023. Garland Meyer P.A.-C. IMG US PROCEDURES * (ABNORMAL) Basic Metabolic Panel (12/13/2023 9:12 PM CDT) [facility] Potassium, S 4.3 3.6 - 5.2 mmol/L [...] CDT Bentley Silva APRN, C.N.P., M.S.N. LA B BLOOD ADD-ON [facility] [address] [place] [address], [facility] DTL [facility] [address] [place] [address] * CT Head without IV Contrast (12/12/2023 [...] and management can be found on the [employer] site. Link [email or web address]/topic/clinical-answers/[email or web address]/[email or web address] Procedure Note Carol Bailey M.D. - 12/12/2023 [...] management can be found on theAskMayoExpert site. [email or web address]/topic/clinical-answers/[email or web address] -5389 1725 IMPRESSION: Positive for acute DVT. Partial [...] M.D. LAB BLOOD ADD-ON Performing Organization Address City/[facility]/ZIP Co de Phone Number [facility] [address] [place] [address] * Magnesium (12/09/2023 9:10 PM CDT) Magnesium, S 2.1 1.7 - 2.3 mg/dL 12/09/2023 10:09 PM CDT DTL Blood (Blood, Venous) 12/09/2023 9:10 PM CDT 12/09/2023 9:53 PM CDT Barb Davies M.D. LAB BLOOD ADD-ON [facility] [address] [place] [address], [facility] [address] [place] [address] * (ABNORMAL) Basic Metabolic Panel (12/09/2023 9:10 [...] CDT Barb Davies M.D. LAB BLOOD ADD-ON [facility] [address] [place] [address], [facility] [address] [place] [address] * (ABNORMAL) Basic Metabolic Panel (12/06/2023 9:06 [...] Mancilla APRN, C.N.P., D.N.P. LAB BLOOD ADD-ON [facility] [address] [place] [address], [facility] DTL [facility] [address] [place] [address] * DX Chest Portable 1 View (12/06/2023 [...] accentuate the cardiomediastinal silhouette. Lalita Bacon APRN C.N.PTarik, D.N.P. IMG D IAGNOSTIC IMAGING PROCEDURES * [...] APRN C.N.P., D.N.P. LAB B LOOD ADD-ON [facility] [address] [place] [address], [facility] [address] [place] [address] * (ABNORMAL) CBC without Differential (12/05/2023 8:57 PM CDT) Pathologist [facility] Hemoglobin 10.4(L) 13.2 - 16.6 g/dL 12/05/2023 [...] APRN C.N.P., D.N.P. LAB B LOOD ADD-ON [facility] [address] [place] [address], [facility] [address] [place] [address] * US Lower Extremity Veins Bilateral (12/05/2023 [...] and management can be found on the [employer] Links site. Link [email or web address]/topic/clinical-answers/[email or web address]/[email or web address] Procedure Note Barry Bennett M.D., M.S. - [...] management can be found on theAskMayoExpert site. [email or web address]/topic/clinical-answers/[email or web address]/[facility] -2049 1725 IMPRESSION: Unchanged [...] DTL Comment: Estimated GFR calculated using the 2021 CKD_EPI creatinine equation. Calcium, Total, S 8.1(L) 8.8 - 10.2 mg/dL 12/02/2023 9:34 PM CDT DTL Glucose, S 117 70 - 140 mg/dL 12/02/2023 9:34 PM CDT DTL Blood (Blood, Venous) 12/02/2023 8:42 PM CDT 12/02/2023 9:19 PM CDT Lalita Bacon APRN, C.N.P., D.N.P. LAB B LOOD ADD-ON [facility] [address] [place] [address], [facility] [address] [place] [address] * (ABNORMAL) CBC with Differential, Blood (12/02/2023 [...] - 6.45 x10(9)/L 12/02/2023 10:11 PM CDT [facility] Comment:Rechecked Lymphocytes 0.90(L) 0.95 - 3.07 [...] APRN, C.N.P., D.N.P. LAB B LOOD ADD-ON [facility] [address] [place] [address], [facility] DTL [facility] [address] [place] [address] [facility] [address] [place] [address] * DX Abdomen 1 View (12/02/2023 5:41 [...] significant change since 12/08/2023. Garland Meyer P.A.-C. [facility] PROCEDURES * DX Chest Portable 1 [...] Bibasilar atelectasis. No pneumothorax. Naveed Dan P.A.-C. [facility] DIAGNOSTIC IMAGING PROCEDURES * DX Abdomen Portable [...] arthritis in the spine. Naveed Dan P.A.-C. [facility] PROCEDURES * (ABNORMAL) Basic Metabolic [...] Naveed Dan P.A.-C. LAB BLOOD ADD- ON [place] [address] [place] [address], [facility] [address] [place] [address] * (ABNORMAL) CBC without Differential (12/01/2023 7:09 [...] Naveed Dan P.A.-C. LAB BLOOD ADD- ON [facility] [address] [place] [address], [facility] [address] [place] [address] * DX Abdomen 1 View (11/30/2023 5:45 [...] soft tissue surgical drains. Naveed Dan P.A.-C. IM DIAGNOSTIC IMAGING PROCEDURES * CT Head without [...] lateralventricle. No new hemorrhage. Naveed Dan P.A.-C. [facility] PROCEDU RES * (ABNORMAL) Basic Metabolic [...] LAB BLOOD ADD- ON Performing Organization Address [facility]/ZIP Co de Phone Number [facility] [address] [place] [address], [facility] DTL [facility] [address] [place] [address] * (ABNORMAL) CBC without Differential (11/29/2023 9:20 [...] LAB BLOOD ADD- ON Performing Organization Address City/[facility]/ZIP Co de Phone Number [facility] [address] [place] [address], [facility] DTL [facility] [address] [place] [address] * DX Abdomen Portable Anterior Posterior 1 [...] Overnight (11/29/2023 7:52 AM CDT) 11/28/2023 Impressions [place] [facility] - 11/29/2023 1:47 PM CDT Overnight [...] current supplemental oxygen. Physician: Hema Owens M.D. [id number] Narrative Procedure Note Hema Owens M.D. - [...] thecurrent supplemental oxygen. Physician: Hema Owens M.D. [id number] Josee Rose M.D. [facility] ORDERAB LES [facility] * CT Head without IV Contrast (11/29/2023 [...] Naveed Dan P.A.-C. LAB BLOOD ADD- ON [facility] [address] [place] [address], [facility] [address] [place] [address] * (ABNORMAL) CBC without Differential (11/29/2023 7:01 [...] Naveed Dan P.A.-C. LAB BLOOD ADD- ON [facility] [address] [place] [address], [facility] [address] [place] [address] * DX Chest Portable 1 View (11/29/2023 [...] M.D. LAB BLOOD TROPONIN Performing Organization Address City/[facility]/ZIP Co de Phone Number [facility] [address] [place] [address], [facility] STMA [facility] [address] [place] [address] * Phosphorus Inorganic (11/28/2023 9:01 PM CDT) [facility] Phosphorus (Inorganic), S 2.5 2.5 - 4.5 mg/dL 11/28/2023 10:02 PM CDT DTL Blood (Blood, Venous) 11/28/2023 9:01 PM CDT 11/28/2023 9:49 PM CDT Barb Davies M.D. LAB BLOOD ADD-ON [facility] [address] [place] [address], [facility] [address] [place] [address] * Magnesium (11/28/2023 9:01 PM CDT) Pathologist [facility] Magnesium, S 2.1 1.7 - 2.3 mg/dL 11/28/2023 10:02 PM CDT DTL Blood (Blood, Venous) 11/28/2023 9:01 PM CDT 11/28/2023 9:49 PM CDT Barb Davies M.D. LAB BLOOD ADD-ON [facility] [address] [place] [address], [place] [facility] [address] [place] [address] * (ABNORMAL) Basic Metabolic Panel (11/28/2023 9:01 [...] M.D. LAB BLOOD ADD-ON Performing Organization Address City/[facility]/ZIP Co de Phone Number [facility] [address] [place] [address] * (ABNORMAL) Troponin T, Baseline with 2 Hour/6 Hour Reflex Biomarker Panel (11/28/2023 9:01 PM CDT) Troponin T, Baseline, 5th gen 31(H) <=15 ng/L 11/28/2023 9:26 PM CDT [facility] Blood (Blood, Venous) 11/28/2023 9:01 PM CDT 11/28/2023 9:06 PM CDT Barb Davies M.D. LAB BLOOD TROPONIN Performing Organization Address [facility] Co de Phone Number [facility] [address] [place] [address] * ECG 12 Lead (11/28/2023 8:57 PM CDT) Ventricular Rate ECG/Min 88 BPM MUSE WY Interval 136 ms MUSE QRSD Interval 86 ms MUSE QT Interval 384 ms MUSE QTC Interval 464 ms MUSE P [place] 33 degrees MUSE R [place] 7 degrees MUSE T Wave [place] 10 degrees MUSE 11/28/2023 8:57 PM CDT [...] and management can be found on the Dial a DealeryoExpert site. Link [email or web address]/[email or web address] Findings discussed via telephone with Naveed Dan PA-C ([id number]) at 15:44 on 11/28/2023. Procedure Note Delbert [...] management can be found on theAskMayoExpert site. [email or web address]/topic/clinical-[email or web address]/[email or web address]/cpm -2049 1725 Findings discussed via telephone with Naveed Dan PA-C ([id number]) at15:44 on 11/28/2023. IMPRESSION: Positive for acute DVT in the left lower extremity involving the solealvein. Naveed Dan P.A.-C. IMG US PROCEDU RES * (ABNORMAL) Basic Metabolic Panel (11/28/2023 7:41 AM CDT) [facility] Potassium, S 3.9 3.6 - 5.2 mmol/L [...] 7:41 AM CDT 11/28/2023 8:29 AM CDT Naeved Dan P.A.-C. LAB BLOOD ADD- ON [address] [address], [facility] [address] [address] * (ABNORMAL) CBC without Differential (11/28/2023 7:41 AM CDT) Pathologist [facility] Hemoglobin 10.2(L) 13.2 - 16.6 g/dL 11/28/2023 [...] LAB BLOOD ADD- ON Performing Organization Address [facility] Co de Phone Number [facility] [address] [place] [address], [facility] DTL [facility] [address] [place] [address] * ECG 12 Lead (11/28/2023 4:04 AM CDT) Ventricular Rate ECG/Min 59 BPM MUSE WY Interval 126 ms MUSE QRSD Interval 88 ms MUSE QT Interval 436 ms MUSE QTC Interval 431 ms MUSE P [place] 46 degrees MUSE R [place] 45 degrees MUSE T Wave [place] 23 degrees MUSE 11/28/2023 4:04 AM CDT [...] Rose M.D. ECG ORDERABLES Performing Organization Address [facility] de Phone Number MUSE NA * Phosphorus Inorganic (11/27/2023 6:37 PM CDT) Phosphorus (Inorganic), S 2.8 2.5 - 4.5 mg/dL 11/27/2023 7:49 PM CDT DTL Blood (Blood, Venous) 11/27/2023 6:37 PM CDT 11/27/2023 7:19 PM CDT Serafin Ford M.D. LAB BLOOD ADD-ON Performing Organization Address [facility] Co de Phone Number [facility] [address] [place] [address], [facility] DTL [facility] [address] [place] [address] * (ABNORMAL) Basic Metabolic Panel (11/27/2023 6:37 [...] CDT Serafin Ford M.D. LAB BLOOD ADD-ON [facility] [address] [place] [address], [facility] STMA [facility] [address] [place] [address] * DX Chest Portable 1 View (11/27/2023 [...] changes of the spine. Serafin Ford M.D. [facility] DIAGNOSTIC IMAGI NG PROCEDURES * DX Abdomen [...] pelvis.Left pelvic soft tissue drainage catheter. Serafin Ford M.D. [facility] DIAGNOSTIC IMAGI NG PROCEDURES * CT Head [...] clear. Bilateral pseudophakia. Osmel Hawthorne M.D., M.S. [facility] PRO CEDURES * (ABNORMAL) CK (Creatine Kinase) (11/27/2023 6:13 AM CDT) Creatine Kinase (CK), S 2232(H) 39 - 308 U/L 11/27/2023 7:28 AM CDT DTL Blood (Blood, Venous) 11/27/2023 6:13 AM CDT 11/27/2023 6:53 AM CDT Serafin Ford M.D. LAB BLOOD ADD-ON [facility] [address] [place] [address] * (ABNORMAL) Calcium, Ionized (11/27/2023 6:13 AM CDT) Calcium, Ionized, S 4.41(L) 4.57 - 5.43 mg/dL 11/27/2023 7:12 AM CDT DTL Comment: ----ADDITIONAL INFORMATION---- This test has been modified from the stunt performer's instructions. Its performance characteristics were determined by [facility] in a manner consistent with CLIA requirements. This test has not been cleared or approved by the U.S. Food and Drug Administration. pH for Ionized Calcium 7.46 7.35 - 7.48 11/27/2023 7:12 AM CDT DTL Blood (Blood, Venous) 11/27/2023 6:13 AM CDT 11/27/2023 6:53 AM CDT Charlotte Ordaz APRN, C.N.P., D.N.P. LAB BLOOD NON ADD-ON [facility] [address] [place], [place] [address] [place] [address] 200 [place] [address] * (ABNORMAL) CBC without Differential (11/27/2023 6:13 AM CDT) Hemoglobin 10.5(L) 13.2 - 16.6 g/dL 11/27/2023 [...] CDT Serafin Ford M.D. LAB BLOOD ADD-ON [facility] [address] [place] [address], [facility] [address] [place] [address] * (ABNORMAL) Basic Metabolic Panel (11/27/2023 6:13 [...] M.D. LAB BLOOD ADD-ON Performing Organization Address City/[facility]/[place] [address] * (ABNORMAL) Magnesium (11/27/2023 6:13 AM CDT) Magnesium, S 2.4(H) 1.7 - 2.3 mg/dL 11/27/2023 7:14 AM CDT DTL Blood (Blood, Venous) 11/27/2023 6:13 AM CDT 11/27/2023 6:53 AM CDT Serafin Ford M.[place] [address] * (ABNORMAL) Phosphorus Inorganic (11/27/2023 6:13 AM CDT) Phosphorus (Inorganic), S 1.4(L) 2.5 - 4.5 mg/dL 11/27/2023 7:14 AM CDT DTL Blood (Blood, Venous) 11/27/2023 6:13 AM CDT 11/27/2023 6:53 AM CDT Serafin Ford M.D. LAB BLOOD ADD-ON [facility] [address] [place] [address], [facility] DTL [facility] [address] [place] [address] * (ABNORMAL) Basic Metabolic Panel (11/26/2023 5:29 [...] Charlotte Ordaz APRN C.N.P., D.N.P. LAB BLOOD ADD-ON [facility] [address] [place] [address], [facility] STMA [facility] [address] [place] [address] * Patient Status (11/26/2023 5:28 PM CDT) O2 Flow 6.0 L/min 11/26/2023 5:32 PM CDT [facility] Device [place] 11/26/2023 5:32 PM CDT [facility] Spont. breaths/min 18 11/26/2023 5:32 PM CDT [facility] Blood 11/26/2023 5:28 PM CDT 11/26/2023 5:32 PM CDT Charlotte Ordaz APRN, C.N.P., D.N.P. LAB BLOOD NON ADD-ON [facility] [address] [place] [address], [facility] STMA [facility] [address] [place] [address] * (ABNORMAL) Blood Gas with Coox, Arterial (11/26/2023 5:28 PM CDT) Pathologist [facility] pO2 77(L) 83 - 108 mm Hg [...] APRN, C.N.P., D.N.P. LAB BLOOD NON ADD-ON [facility] [address] [place] [address], [facility] [address] [place] [address] * DX Chest Portable 1 View (11/26/2023 [...] 1 VIEW Procedure Note Roel Guillen M.B.B.S., Vic. - 11/26/2023 EXAM: DX CHEST PORTABLE 1 [...] CBC without Differential (11/26/2023 2:01 PM CDT) Pathologist [facility] Hemoglobin 11.0(L) 13.2 - 16.6 g/dL 11/26/2023 [...] CDT Serafin Ford M.D. LAB BLOOD ADD-ON [facility] [address] [place] [address] * pH (11/26/2023 11:21 AM CDT) Pathologist [facility] pH 7.45 7.35 - 7.45 pH 11/26/2023 11:27 AM CDT ST[facility] Blood 11/26/2023 11:2 1 AM CDT 11/26/2023 11:26 AM CDT Charlotte Ordaz APRN, C.N.PTarik, D.N.P. LAB HISTORICAL ORDERS Performing Organization Address [facility]/ZIP Co de Phone Number [facility] [address] [place] [address] * (ABNORMAL) Calcium, Ionized (11/26/2023 11:21 AM CDT) Calcium, Ionized, B 4.56(L) 4.65 - 5.30 mg/dL 11/26/2023 11:29 AM CDT [facility] Blood (Blood, Venous) 11/26/2023 11:21 AM CDT 11/26/2023 11:26 AM CDT Tracy Pelayo APRNNTarikP., D.N.P. LAB BLOOD NON ADD-ON Performing Organization Address [facility] Co de Phone Number [facility] [address] [place] [address] * ECG 12 Lead (11/26/2023 8:06 AM CDT) Pathologist [facility] Ventricular Rate ECG/Min 79 BPM MUSE WY Interval 134 ms MUSE QRSD Interval 94 ms MUSE QT Interval 380 ms MUSE QTC Interval 435 ms MUSE P [place] 37 degrees MUSE R [place] 15 degrees MUSE T Wave [place] 18 degrees MUSE 11/26/2023 8:06 AM CDT [...] Charlotte Ordaz APRN, C.N.P., D.N.P. ECG ORDERABLES MUSE NA * Patient Status (11/26/2023 7:49 AM CDT) O2 Flow 2.0 L/min 11/26/2023 7:52 AM CDT [facility] Device NC 11/26/2023 7:52 AM CDT [facility] Spont. breaths/min 22 11/26/2023 7:52 AM CDT [facility] Blood 11/26/2023 7:49 AM CDT 11/26/2023 7:52 AM CDT Shay Lee M.D. LAB BLOOD NON ADD-ON Performing Organization Address City/[facility]/ZIP Co de Phone Number [facility] [address] [place] [address], [facility] STMA [facility] [address] [place] [address] * (ABNORMAL) Blood Gas with Coox, Arterial [...] LAB BLOOD NON ADD-ON Performing Organization Address City/[facility]/ZIP Co de Phone Number [facility] [address] [place] [address], [facility] [address] [place] [address] * (ABNORMAL) Magnesium (11/26/2023 7:48 AM CDT) Magnesium, S 1.6(L) 1.7 - 2.3 mg/dL 11/26/2023 11:13 AM CDT DTL Blood (Blood, Venous) 11/26/2023 7:48 AM CDT 11/26/2023 8:20 AM CDT Shay Lee M.D. LAB BLOOD ADD-ON [facility] [address] [place] [address], [facility] [address] [place] [address] * (ABNORMAL) CK (Creatine Kinase) (11/26/2023 7:48 AM CDT) Creatine Kinase (CK), S 1733(H) 39 - 308 U/L 11/26/2023 11:13 AM CDT DTL Blood (Blood, Venous) 11/26/2023 7:48 AM CDT 11/26/2023 8:20 AM CDT Hilda Carranza APRN, C.N.P., M.S.NTarik HERNANDEZ BLOOD ADD-ON [facility] [address] [place] [address], [facility] DTL [facility] [address] [place] [address] * (ABNORMAL) Basic Metabolic Panel (11/26/2023 7:48 AM CDT) Pathologist [facility] Potassium, S 3.2(L) 3.6 - 5.2 mmol/L [...] CDT 11/26/2023 8:20 AM CDT Tracy Yancey APRNNLeon., M.S.NTarik HERNANDEZ BLOOD ADD-ON [facility] [address] [place] [address], [facility] DTL [facility] [address] [place] [address] * (ABNORMAL) CBC without Differential (11/26/2023 7:48 AM CDT) Pathologist [facility] Hemoglobin 8.6(L) 13.2 - 16.6 g/dL 11/26/2023 [...] APRN, C.N.P., M.S.N. LA B BLOOD ADD-ON [facility] [address] [place] [address], [facility] DTL [facility] [address] [place] [address] * Thromboelastograph, Kaolin, Blood (11/26/2023 7:45 AM CDT) Pathologist [facility] R, Kaolin, TEG 6.5 4.0 - 9.0 [...] APRN, C.N.P., D.N.P. LAB BLOOD NON ADD-ON [facility] [address] [place] [address], [facility] [address] [place] [address] * Transfuse Fresh Frozen Plasma :Bleeding with altered coagulation; 180 mL/hr (11/26/2023 7:09 AM CDT) Carlyn Perez.B.B.S. BLOOD TRANSFUSION O RDERABLES * Transfuse Fresh Frozen Plasma :Bleeding with altered coagulation; 180 mL/hr, 2 Units (11/26/2023 7:09 AM CDT) Carlyn Luciano.B.S. BLOOD TRANSFUSION O RDERABLES * CT Abdomen [...] hemorrhage in the left lateralventricle. Tracy Yancey APRNNLeon., M.S.N. IM G CT PROCEDURES * Transfuse [...] CBC without Differential (11/25/2023 11:29 PM CDT) [facility] Hemoglobin 11.6(L) 13.2 - 16.6 g/dL 11/25/2023 [...] - 317 x10(9)/L 11/26/2023 1:03 AM CDT [facility] Comment:Results confirmed by smear, no clumping or interference seen. Leukocytes 8.6 3.4 - 9.6 x10(9)/L 11/26/2023 1:03 AM CDT [facility] Blood (Blood, Venous) 11/25/2023 11:29 PM CDT 11/25/2023 11:33 PM CDT Shay Lee M.D. LAB BLOOD ADD-ON Performing Organization Address City/State/[facility] Co de Phone Number [facility] [address] [place] [address], [facility] [address] [place] [address] * Transfuse Emergency Released Red Blood Cells [...] Shay Lee M.D. LAB BLOOD NON ADD-ON [facility] [address] [place] [address], [facility] STMA [facility] [address] [place] [address] * (ABNORMAL) Blood Gas with Coox, Arterial [...] LAB BLOOD NON ADD-ON Performing Organization Address City/[facility]/ZIP Co de Phone Number [facility] [address] [place] [address], [facility] [address] [place] [address] * Transfuse Emergency Released Red Blood Cells [...] Shay Lee M.D. LAB BLOOD NON ADD-ON [facility] [address] [place] [address], [facility] [address] [place] [address] * (ABNORMAL) Basic Metabolic Panel (11/25/2023 9:05 [...] CDT Shay Lee M.D. LAB BLOOD ADD-ON [facility] [address] [place] [address], [facility] [address] [place] [address] * (ABNORMAL) CBC without Differential (11/25/2023 9:05 PM CDT) [facility] Hemoglobin 7.7(L) 13.2 - 16.6 g/dL 11/25/2023 [...] M.D. LAB BLOOD ADD-ON Performing Organization Address City/[facility]/ZIP Co de Phone Number [facility] [address] [place], [place] [id number] [place], [place] [address]A [facility] [address] [place] [address] * (ABNORMAL) Thromboelastograph, Kaolin, Blood (11/25/2023 9:04 [...] LAB BLOOD NON ADD-ON Performing Organization Address City/[facility]/ZIP Co de Phone Number [facility] [address] [place] [address], [facility] STMA [facility] [address] [place] [address] * (ABNORMAL) Troponin T, 2 Hour with 6 Hour Reflex, 5th Gen (11/25/2023 5:38 PM CDT) Troponin T, 2 hr, 5th gen 32(H) <=15 ng/L 11/25/2023 6:28 PM CDT [facility] 2H Delta 0 ng/L 11/25/2023 6:28 PM CDT [facility] Comment:6 hour collection no t indicated. 2H Delta Interp Not Changing 11/25/2023 6:28 PM CDT [facility] Blood 11/25/2023 5:38 PM CDT 11/25/2023 6:00 PM CDT Charlotte Ordaz APRN, C.N.P., D.N.P. LAB BLOOD TROPONIN Performing Organization Address City/[facility]/ZIP Co de Phone Number [facility] [address] [place] [address] * (ABNORMAL) pH (11/25/2023 3:32 PM CDT) Pathologist [facility] pH 7.32(L) 7.35 - 7.45 pH 11/25/2023 3:41 PM CDT [facility] Blood 11/25/2023 3:32 PM CDT 11/25/2023 3:37 PM CDT Serafin Ford M.D. LAB HISTORICAL ORDER S Performing Organization Address [facility]/ZIP Co de Phone Number [facility] [address] [place] [address] * (ABNORMAL) Calcium, Ionized (11/25/2023 3:32 PM CDT) Calcium, Ionized, B 4.60(L) 4.65 - 5.30 mg/dL 11/25/2023 3:41 PM CDT [facility] Blood (Blood, Venous) 11/25/2023 3:32 PM CDT 11/25/2023 3:37 PM CDT Serafin Ford M.D. LAB BLOOD NON ADD-ON Performing Organization Address City/[facility]/ZIP Co de Phone Number [facility] [address] [place] [address], [facility] STMA [facility] [address] [place] [address] * Phosphorus Inorganic (11/25/2023 3:31 PM CDT) Pathologist [facility] Phosphorus (Inorganic), S 3.8 2.5 - 4.5 mg/dL 11/25/2023 4:29 PM CDT DTL Blood (Blood, Venous) 11/25/2023 3:31 PM CDT 11/25/2023 4:12 PM CDT Serafin Ford M.D. LAB BLOOD ADD-ON Performing Organization Address City/[facility]/ZIP Co de Phone Number [facility] [address] [place] [address], [facility] [address] [place] [address] * Magnesium (11/25/2023 3:31 PM CDT) [facility] Magnesium, S 2.1 1.7 - 2.3 mg/dL 11/25/2023 4:29 PM CDT DTL Blood (Blood, Venous) 11/25/2023 3:31 PM CDT 11/25/2023 4:12 PM CDT Serafin Ford M.D. LAB BLOOD ADD-ON Performing Organization Address City/[facility]/ZIP Co de Phone Number [facility] [address] [place] [address], [facility] [address] [place] [address] * (ABNORMAL) Troponin T, Baseline with 2 Hour/6 Hour Reflex Biomarker Panel (11/25/2023 3:30 PM CDT) [facility] Troponin T, Baseline, 5th gen 32(H) <=15 ng/L 11/25/2023 4:05 PM CDT [facility] Blood (Blood, Venous) 11/25/2023 3:30 PM CDT 11/25/2023 3:37 PM CDT Tracy Pelayo APRNNTarikP., D.N.P. LAB BLOOD TROPONIN Performing Organization Address [facility] Co de Phone Number [facility] [address] [place], [place] [id number] [place] [address] [facility] [address] [place] [address] * (ABNORMAL) CBC without Differential (11/25/2023 3:30 PM CDT) Pathologist [facility] Hemoglobin 9.3(L) 13.2 - 16.6 g/dL 11/25/2023 [...] M.D. LAB BLOOD ADD-ON Performing Organization Address City/[facility]/ZIP Co de Phone Number [facility] [address] [place] [address], [facility] STMA [facility] [address] [place] [address] * (ABNORMAL) Basic Metabolic Panel (11/25/2023 3:30 PM CDT) Pathologist [facility] Potassium, P 4.3 3.6 - 5.2 mmol/L [...] CDT Serafin Ford M.D. LAB BLOOD ADD-ON [facility] [address] [place] [address], [address] [address] * ECG 12 Lead (11/25/2023 3:16 PM CDT) Pathologist [facility] Ventricular Rate ECG/Min 80 BPM MUSE WY Interval 124 ms MUSE QRSD Interval 86 ms MUSE QT Interval 400 ms MUSE QTC Interval 461 ms MUSE P [place] 48 degrees MUSE R [place] 27 degrees MUSE T Wave [place] 31 degrees MUSE 11/25/2023 3:16 PM CDT [...] C.N.P., D.N.P. ECG ORDERABLES Performing Organization Address [facility] Co de Phone Number MUSE NA [...] M.D. IMG FLUOROSCOPY PROCEDURES Performing Organization Address City/[facility]/ZIP Co de Phone Number 152 HOS [...] Beth M.D. LAB BLOOD NON ADD -ON [facility] [address] [place] [address], [facility] STMA [facility] [address] [place] [address] * (ABNORMAL) Glucose, Whole Blood (11/25/2023 1:31 PM CDT) Glucose 165(H) 70 - 140 mg/dL 11/25/2023 1:33 PM CDT STMA Blood (Blood, Arterial Line) 11/25/2023 1:31 PM CDT 11/25/2023 1:31 PM CDT Ale Tatum M.D. LAB BLOOD ADD-ON [facility] 200 [place], [place] [id number] [place] [address] 200 [place] [address] * Potassium, Blood (11/25/2023 1:31 PM CDT) Potassium, B 3.7 3.6 - 5.2 mmol/L 11/25/2023 1:34 PM CDT STMA Blood (Blood, Arterial Line) 11/25/2023 1:31 PM CDT 11/25/2023 1:31 PM CDT Ale Tatum M.D. LAB BLOOD NON ADD-ON Performing Organization Address City/[facility]/ZIP Co de Phone Number [facility] [address] [place], [place] [phone] [place] [address] 200 [place] [address] * Sodium, B (11/25/2023 1:31 PM CDT) Sodium, B 141 135 - 145 mmol/L 11/25/2023 1:33 PM CDT STMA Blood (Blood, Arterial Line) 11/25/2023 1:31 PM CDT 11/25/2023 1:31 PM CDT Ale Tatum M.D. LAB BLOOD NON ADD-ON Performing Organization Address City/[facility]/ZIP Co de Phone Number [facility] [address] [place], [place] [phone] [place] [address] 200 [place] [address] * (ABNORMAL) Calcium, Ionized (11/25/2023 1:31 PM CDT) Calcium, Ionized, B 4.34(L) 4.65 - 5.30 mg/dL 11/25/2023 1:34 PM CDT STMA Blood (Blood, Arterial Line) 11/25/2023 1:31 PM CDT 11/25/2023 1:31 PM CDT Ale Tatum M.D. LAB BLOOD NON ADD-ON [facility] [address] [place], [place] [address] STMA [facility] [address] [place] [address] * (ABNORMAL) Blood Gas with Coox, Arterial [...] Ale Tatum M.D. LAB BLOOD NON ADD-ON [facility] [address] [place] [address], [facility] STMA [facility] [address] [place] [address] * Transfuse autologous RBC (Cell Salvage) : (11/25/2023 12:34 PM CDT) Ale Tatum M.D. BLOOD TRANSFUSION OR DERABLES * (ABNORMAL) Hemoglobin, Whole Blood (11/25/2023 12:13 PM CDT) Pathologist [facility] Hemoglobin, B 8.1(L) 13.2 - 16.6 g/dL 11/25/2023 12:14 PM CDT [facility] Blood (Blood, Arterial Line) 11/25/2023 12:13 PM CDT 11/25/2023 12:13 PM CDT Gogo Chavez APRN, CRNA LAB BLOOD NON A DD-ON Performing Organization Address City/[facility]/ZIP Co de Phone Number [facility] 200 [place] [address] * Transfuse Red Blood Cells : (11/25/2023 11:50 AM CDT) Ale Tatum M.D. BLOOD TRANSFUSION OR DERABLES * Lactate, B - Intra-op (11/25/2023 11:09 AM CDT) [facility] Lactate, B 1.1 0.5 - 2.2 mmol/L 11/25/2023 11:11 AM CDT [facility] Blood (Blood, Venous) 11/25/2023 11:09 AM CDT 11/25/2023 11:09 AM CDT Ale Tatum M.D. LAB BLOOD NON ADD-ON [facility] [address] [place] [address] * (ABNORMAL) Glucose, Whole Blood (11/25/2023 11:09 AM CDT) [facility] Glucose 143(H) 70 - 140 mg/dL 11/25/2023 11:11 AM CDT STMA Blood (Blood, Arterial Line) 11/25/2023 11:09 AM CDT 11/25/2023 11:09 AM CDT Ale Tatum M.D. LAB BLOOD ADD-ON [facility] [address] [place] [address] * (ABNORMAL) Potassium, Blood (11/25/2023 11:09 AM CDT) Potassium, B 3.5(L) 3.6 - 5.2 mmol/L 11/25/2023 11:12 AM CDT STMA Blood (Blood, Arterial Line) 11/25/2023 11:09 AM CDT 11/25/2023 11:09 AM CDT Ale Tatum M.D. LAB BLOOD NON ADD-ON [facility] [address] 200 [place] [address] * Sodium, B (11/25/2023 11:09 AM CDT) Sodium, B 139 135 - 145 mmol/L 11/25/2023 11:11 AM CDT STMA Blood (Blood, Arterial Line) 11/25/2023 11:09 AM CDT 11/25/2023 11:09 AM CDT Ale Tatum M.D. LAB BLOOD NON ADD-ON [facility] [address] 200 [place] [address] * Calcium, Ionized (11/25/2023 11:09 AM CDT) Calcium, Ionized, B 4.84 4.65 - 5.30 mg/dL 11/25/2023 11:12 AM CDT STMA Blood (Blood, Arterial Line) 11/25/2023 11:09 AM CDT 11/25/2023 11:09 AM CDT Ale Tatum M.D. LAB BLOOD NON ADD-ON [facility] [address] [place] [address], [facility] STMA [facility] [address] [place] [address] * (ABNORMAL) Blood Gas with Coox, Arterial [...] Ale Tatum M.D. LAB BLOOD NON ADD-ON [facility] [address] 200 [place] [address] * Transfuse Red Blood Cells : (11/25/2023 [...] Jr., M.D. LAB BLOOD NON AD D-ON [facility] [address] 200 [place] [address] * Glucose, Whole Blood (11/25/2023 9:22 AM CDT) Glucose 112 70 - 140 mg/dL 11/25/2023 9:24 AM CDT STMA Blood (Blood, Arterial Line) 11/25/2023 9:22 AM CDT 11/25/2023 9:22 AM CDT Ale Tatum M.D. LAB BLOOD ADD-ON [facility] [address] 200 [place] [address] * (ABNORMAL) Potassium, Blood (11/25/2023 9:22 AM CDT) Potassium, B 3.4(L) 3.6 - 5.2 mmol/L 11/25/2023 9:25 AM CDT STMA Blood (Blood, Arterial Line) 11/25/2023 9:22 AM CDT 11/25/2023 9:22 AM CDT Ale Tatum M.D. LAB BLOOD NON ADD-ON Performing Organization Address City/[facility]/ZIP Co de Phone Number [facility] [address] [place], [place] [phone] [place] [address] 200 [place] [address] * Sodium, B (11/25/2023 9:22 AM CDT) Sodium, B 141 135 - 145 mmol/L 11/25/2023 9:24 AM CDT STMA Blood (Blood, Arterial Line) 11/25/2023 9:22 AM CDT 11/25/2023 9:22 AM CDT Ale Tatum M.D. LAB BLOOD NON ADD-ON [facility] [address] [place], [place] [address] [place] [address] 200 [place] [address] * (ABNORMAL) Calcium, Ionized (11/25/2023 9:22 AM CDT) Calcium, Ionized, B 4.40(L) 4.65 - 5.30 mg/dL 11/25/2023 9:25 AM CDT STMA Blood (Blood, Arterial Line) 11/25/2023 9:22 AM CDT 11/25/2023 9:22 AM CDT Ale Tatum M.D. LAB BLOOD NON ADD-ON [facility] [address] [place] [address], [facility] STMA [facility] [address] [place] [address] * (ABNORMAL) Blood Gas with Coox, Arterial [...] Ale Tatum M.D. LAB BLOOD NON ADD-ON [facility] [address] [facility] 200 [place] [address] * Patient Status (11/25/2023 7:08 AM CDT) O2 Flow 3.0 L/min 11/25/2023 7:11 AM CDT STMA Device [place] 11/25/2023 7:11 AM CDT STMA Spont. breaths/min 18 11/25/2023 7:11 AM CDT STMA Blood 11/25/2023 7:08 AM CDT 11/25/2023 7:11 AM CDT Hilda Carranza APRN, C.N.P., M.S.N. LA B BLOOD NON ADD-ON [facility] [address] 200 [place] [phone] * (ABNORMAL) Blood Gas with Coox, Venous (11/25/2023 7:08 AM CDT) Pathologist [facility] pO2, Venous, B 36 Not applicable mm [...] AM CDT Tracy Yancey APRNNLeon., M.S.N. [place] Cipriano BLOOD NON ADD-ON Performing Organization Address City/[facility]/ZIP Co de Phone Number [facility] [address] [facility] [address] [place] [address] * (ABNORMAL) CK (Creatine Kinase) (11/25/2023 6:15 AM CDT) Creatine Kinase (CK), S 3100(H) 39 - 308 U/L 11/25/2023 9:15 AM CDT DTL Blood (Blood, Venous) 11/25/2023 6:15 AM CDT 11/25/2023 7:01 AM CDT Tracy Yancey APRNNTarikP., M.S.N. JOHANNA B BLOOD ADD-ON Performing Organization Address City/[facility]/ZIP Co de Phone Number [facility] [address] [facility] [address] [place] [address] * (ABNORMAL) Phosphorus Inorganic (11/25/2023 6:15 AM CDT) Phosphorus (Inorganic), S 2.2(L) 2.5 - 4.5 mg/dL 11/25/2023 9:15 AM CDT DTL Blood (Blood, Venous) 11/25/2023 6:15 AM CDT 11/25/2023 7:01 AM CDT Hilda Carranza APRN, C.N.P., M.STarikNTarik HERNANDEZ BLOOD ADD-ON Performing Organization Address City/[facility] Co de Phone Number [facility] [address] [place] [address], [facility] [place] [address] * Magnesium (11/25/2023 6:15 AM CDT) Magnesium, S 2.2 1.7 - 2.3 mg/dL 11/25/2023 9:15 AM CDT DTL Blood (Blood, Venous) 11/25/2023 6:15 AM CDT 11/25/2023 7:01 AM CDT Hilda Carranza APRN, C.N.P., M.S.NTarik HERNANDEZ BLOOD ADD-ON Performing Organization Address City/[facility] Co de Phone Number [facility] [address] [place] [address], [place] [address] * (ABNORMAL) Basic Metabolic Panel (11/25/2023 6:15 [...] APRN, C.N.P., M.S.N. LA B BLOOD ADD-ON [facility] [address] [place] [address], [facility] [address] [place] [address] * (ABNORMAL) CBC without Differential (11/25/2023 6:15 [...] APRN, C.N.P., M.S.NTarik LA B BLOOD ADD-ON [facility] [address] [place] [address], [facility] [address] [place] [address] * DX Chest Portable 1 View (11/25/2023 [...] CDT) Ventricular Rate ECG/Min 74 BPM MUSE W[place] Interval 142 ms MUSE QRSD Interval 90 ms MUSE QT Interval 414 ms MUSE QTC Interval 459 ms MUSE P [place] 39 degrees MUSE R [place] 12 degrees MUSE T Wave [place] 30 degrees MUSE 11/25/2023 5:33 AM CDT [...] in Anterolateral leads Reviewed by ANTONIETA Fuentes Barbara Yancey APRN.N.P., M.S.N. G ORDERABLES MUSE NA * (ABNORMAL) [...] PM CDT 11/24/2023 2:51 PM CDT Hilda F Tracy Carranza APRNNKerrie, M.SJamil HERNANDEZ BLOOD ADD-ON [facility] 200 [place] [address], [facility] STMA [address] [address] * (ABNORMAL) Microscopic Manual (11/24/2023 9:58 AM [...] AM CDT 11/24/2023 11:52 AM CDT Janina Eva Jade MONTERROSO C.N.P., D.N.P. LAB URINE ORDERABLES Performing Organization Address City/[facility] Co de Phone Number [facility] 200 [place] [address], [facility] 200 [place] [address] * (ABNORMAL) Dipstick, Urine (11/24/2023 9:58 AM [...] Barbara Montes APRN.N.P., D.N.P. LAB URINE ORDERABLES [facility] [address] [place] [address] * pH, Urine (11/24/2023 9:58 AM CDT) pH, U 5.1 4.5 - 8.0 11/24/2023 11: 48 AM CDT DTL Urine 11/24/2023 9:58 AM CDT 11/24/2023 10:39 AM CDT Barbara Montes APRN.N.P., D.N.P. LAB URINE ORDERABLES Performing Organization Address City/[facility]/ZIP Co de Phone Number [facility] [address] 200 [place] [address] * Osmolality, Urine (11/24/2023 9:58 AM CDT) Osmolality, U 901 150 - 1150 mOsm/kg 11/24/2023 11:48 AM CDT DT Urine 11/24/2023 9:58 AM CDT 11/24/2023 10:39 AM CDT Barbara Montes APRN.N.P., D.N.P. LAB URINE ORDERABLES [facility] [address] [place] 200 [place] [address] * (ABNORMAL) Urinalysis, with Microscopic: Urine, Catheter [...] D.N.P. LAB URINE ORDERABLES Performing Organization Address City/State/[facility] Co de Phone Number [facility] 200 [place] [address], [facility] 200 [place] [address] * Patient Status (11/24/2023 9:26 AM CDT) FIO2 0.21 0.21=AIR 11/24/2023 9:33 AM CDT STMA Spont. breaths/min 22 11/24/2023 9:33 AM CDT STMA Blood 11/24/2023 9:26 AM CDT 11/24/2023 9:33 AM CDT Hilda Carranza APRN, C.N.P., M.S.N. LA B BLOOD NON ADD-ON [facility] [address] [place] [address], [facility] STMA [facility] [address] [place] [address] * (ABNORMAL) Blood Gas with Coox, Venous [...] C.N.P., M.S.N. LA B BLOOD NON ADD-ON [facility] [address] 200 [place] [phone] * Lactate (11/24/2023 9:26 AM CDT) Pathologist [facility] Lactate, P 1.7 0.5 - 2.2 mmol/L 11/24/2023 9:46 AM CDT [facility] Blood (Blood, Venous) 11/24/2023 9:26 AM CDT 11/24/2023 9:33 AM CDT Janina Hansen APRN, C.N.P., D.N.P. LAB BLOOD NON ADD-ON [facility] [address] [place] [address] * (ABNORMAL) CK (Creatine Kinase) (11/24/2023 9:26 AM CDT) [facility] Creatine Kinase (CK), S 2304(H) 39 - 308 U/L 11/24/2023 10:53 AM CDT DTL Blood (Blood, Venous) 11/24/2023 9:26 AM CDT 11/24/2023 10:04 AM CDT Sheldon Choi P.A.-C. LAB BLOOD A DD-ON Performing Organization Address City/[facility]/ZIP Co de Phone Number [facility] [address] [facility] 200 [place] [address] * (ABNORMAL) CBC without Differential (11/24/2023 9:26 AM CDT) [facility] Hemoglobin 8.8(L) 13.2 - 16.6 g/dL 11/24/2023 [...] Sheldon Choi P.A.-C. LAB BLOOD A DD-ON [facility] [place] [address], [facility] [place] [address] * (ABNORMAL) Basic Metabolic Panel (11/24/2023 9:26 [...] LAB BLOOD A DD-ON Performing Organization Address City/State/[facility] Co de Phone Number [facility] 200 [place] [address], [place] [facility] 200 [place] [address] * ECG 12 Lead (11/24/2023 9:13 AM CDT) Ventricular Rate ECG/Min 132 BPM MUSE WY Interval 130 ms MUSE QRSD Interval 88 ms MUSE QT Interval 330 ms MUSE QTC Interval 488 ms MUSE P [place] 3 degrees MUSE R [place] 24 degrees MUSE T Wave [place] 32 degrees MUSE 11/24/2023 9:13 AM CDT [...] Janina Hansen APRN, C.N.P., D.N.P. ECG ORDERABLES MUSE [...] a small subdural effusion. Sheldon Choi P.A.-C. [facility] [place] PROC EDURES * Drug Screen Urine [...] APRN, C.N.P., M.S.N. LA B URINE ORDERABLES [facility] [address] [place] [address], [place] DTL [facility] [address] [place] [address] * DX Chest Portable 1 View (11/24/2023 [...] not well appreciated radiographically. Sheldon Choi P.A.-C. IM DIAGNOS TIC IMAGING PROCEDURES * DX Femur [...] Left femur radiograph 11/23/2023 Procedure Note Bakari Aayla M.D., Ph.D. - 11/24/2023 EXAM: DX FEMUR LEFT 1 VIEW COMPARISON: Left femur radiograph 11/23/2023 IMPRESSION: Single view lateral radiograph of the distal left femur for the assessmentof traction device, which is overlying the distal left femur. Mickey Benton M.D. [facility] DIAGNOSTIC IMAGI NG PROCEDURES * Lactate (11/23/2023 10:52 PM CDT) Pathologist [facility] Lactate, P 2.1 0.5 - 2.2 mmol/L 11/23/2023 11:11 PM CDT STMA Blood (Blood, Venous) 11/23/2023 10:52 PM CDT 11/23/2023 10:57 PM CDT Sheldon Choi P.A.-C. LAB BLOOD N ON ADD-ON [address] [address], [facility] [address] [place] [address] * (ABNORMAL) CBC without Differential (11/23/2023 10:52 PM CDT) [facility] Hemoglobin 9.5(L) 13.2 - 16.6 g/dL 11/23/2023 [...] LAB BLOOD A DD-ON Performing Organization Address City/[facility]/ZIP Co de Phone Number [facility] 200 [place] [address] * (ABNORMAL) Troponin T, 6h, 5th Gen (11/23/2023 10:52 PM CDT) Troponin T, 6 hr, 5th gen 29(H) <=15 ng/L 11/23/2023 11:16 PM CDT STMA 6H Delta 7 ng/L 11/23/2023 11:16 PM CDT STMA 6H Delta Interp Not Changing 11/23/2023 11:16 PM CDT ST[facility] Blood 11/23/2023 10:5 2 PM CDT 11/23/2023 10:57 PM CDT Bereket Snider M.D. LAB BLOOD TROPONIN Performing Organization Address [facility] Co de Phone Number [facility] [address] [address] * DX Femur Left 2 Views (11/23/2023 [...] LAB BLOOD T ROPONIN Performing Organization Address City/[facility]/ZIP Co de Phone Number [facility] 200 [place] [address], [facility] 200 [place] [address] * Patient Status (11/23/2023 4:52 PM CDT) Pathologist [facility] FIO2 0.21 0.21=AIR 11/23/2023 5:01 PM CDT STMA Spont. breaths/min 18 11/23/2023 5:01 PM CDT [facility] Blood 11/23/2023 4:52 PM CDT 11/23/2023 5:01 PM CDT Sheldon Choi P.A.-C. LAB BLOOD N ON ADD-ON Performing Organization Address [facility] Co de Phone Number [facility] 200 [place] [address], [facility] 200 [place] [address] * (ABNORMAL) Blood Gas with Coox, Venous [...] Choi P.A.-C. LAB BLOOD N ON ADD-ON [facility] 200 [place], [place] [address] [place] [address] 200 [place] [address] * (ABNORMAL) pH (11/23/2023 4:51 PM CDT) [facility] pH 7.30(L) 7.35 - 7.45 pH 11/23/2023 5:06 PM CDT STMA Blood 11/23/2023 4:51 PM CDT 11/23/2023 5:01 PM CDT Sheldon Choi P.A.-C. LAB HISTORI PURNIMA ORDERS [facility] 200 [place] [address], [facility] 200 [place] [address] * Hemoglobin A1c (11/23/2023 4:51 PM CDT) Hemoglobin A1c, B 5.4 4.0 - 5.6 % 11/23/2023 5:42 PM CDT DTL Blood (Blood, Venous) 11/23/2023 4:51 PM CDT 11/23/2023 5:19 PM CDT Sheldon Choi P.A.-C. LAB BLOOD A DD-ON Performing Organization Address [facility] Co de Phone Number [facility] [address] 200 [place] [address] * (ABNORMAL) CK (Creatine Kinase) (11/23/2023 4:51 PM CDT) Pathologist [facility] Creatine Kinase (CK), S 728(H) 39 - 308 U/L 11/23/2023 6:04 PM CDT DT Blood (Blood, Venous) 11/23/2023 4:51 PM CDT 11/23/2023 5:35 PM CDT Sheldon Choi P.A.-C. LAB BLOOD A DD-ON Performing Organization Address [facility] de Phone Number [facility] 200 [place] [address], [facility] 200 [place] [address] * (ABNORMAL) Troponin T, Baseline with 2 Hour/6 Hour Reflex Biomarker Panel (11/23/2023 4:51 PM CDT) Pathologist [facility] Troponin T, Baseline, 5th gen 22(H) <=15 ng/L 11/23/2023 5:23 PM CDT STMA Blood (Blood, Venous) 11/23/2023 4:51 PM CDT 11/23/2023 5:01 PM CDT Sheldon Choi P.A.-C. LAB BLOOD T ROPONIN Performing Organization Address City/[facility]/ZIP Co de Phone Number [facility] 200 [place], [place] [phone] [place] [address] 200 [place] [address] * (ABNORMAL) Prothrombin Time (PT) (11/23/2023 4:51 PM CDT) Prothrombin Time, P 12.6(H) 9.4 - 12.5 sec 11/23/2023 5:24 PM CDT [facility] 1.1 0.9 - 1.1 11/23/2023 5:24 PM CDT [facility] Comment: ----ADDITIONAL INFORMATION---- Standard intensity warfarin therapeutic range: 2.0 to 3.0 ?? High intensity warfarin therapeutic range: 2.5 to 3.5 Blood (Blood, Venous) 11/23/2023 4:51 PM CDT 11/23/2023 5:01 PM CDT Sheldon Choi P.A.-C. LAB BLOOD A DD-ON Performing Organization Address [facility] Co de Phone Number [facility] 200 [place], [place] [address] [place] [address] 200 [place] [address] * Phosphorus Inorganic (11/23/2023 4:51 PM CDT) Pathologist [facility] Phosphorus (Inorganic), S 3.1 2.5 - 4.5 mg/dL 11/23/2023 6:04 PM CDT DTL Blood (Blood, Venous) 11/23/2023 4:51 PM CDT 11/23/2023 5:35 PM CDT Sheldon Choi P.A.-C. LAB BLOOD A DD-ON Performing Organization Address City/[facility] Co de Phone Number [facility] 200 [place], [place] [id number] [place] [address] [facility] 200 [place] [address] * Magnesium (11/23/2023 4:51 PM CDT) [facility] Magnesium, S 2.0 1.7 - 2.3 mg/dL 11/23/2023 6:04 PM CDT DTL Blood (Blood, Venous) 11/23/2023 4:51 PM CDT 11/23/2023 5:35 PM CDT Sheldon Choi P.A.-C. LAB BLOOD A DD-ON Performing Organization Address [facility] Co de Phone Number [facility] [address] [facility] 200 [place] [address] * (ABNORMAL) Lactate (11/23/2023 4:51 PM CDT) [facility] Lactate, P 2.6(H) 0.5 - 2.2 mmol/L 11/23/2023 5:19 PM CDT STMA Blood (Blood, Venous) 11/23/2023 4:51 PM CDT 11/23/2023 5:01 PM CDT Sheldon Choi P.A.-C. LAB BLOOD N ON ADD-ON Performing Organization Address [facility] Co de Phone Number [facility] [address] [facility] 200 [place] [address] * (ABNORMAL) CBC without Differential (11/23/2023 4:51 PM CDT) [facility] Hemoglobin 11.3(L) 13.2 - 16.6 g/dL 11/23/2023 [...] LAB BLOOD A DD-ON Performing Organization Address [facility] Co de Phone Number [facility] [address] [place] [address] * (ABNORMAL) Calcium, Ionized (11/23/2023 4:51 PM CDT) Calcium, Ionized, B 4.59(L) 4.65 - 5.30 mg/dL 11/23/2023 5:06 PM CDT STMA Blood (Blood, Venous) 11/23/2023 4:51 PM CDT 11/23/2023 5:01 PM CDT Sheldon Choi P.A.-C. LAB BLOOD N ON ADD-ON Performing Organization Address City/[facility]/ZIP Co de Phone Number [facility] [address] [place] [address] * (ABNORMAL) Basic Metabolic Panel (11/23/2023 4:51 [...] Sheldon Choi P.A.-C. LAB BLOOD A DD-ON [address] [address], [facility] 200 [place] [address] * Thromboelastograph, Kaolin, Blood (11/23/2023 4:49 PM [...] Choi P.A.-C. 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 Toni Vazquez M.D. [facility] CT PROCEDURES * DX Pelvis 1-2 Views [...] ??DX PELVIS 1-2 VIEWS Christopher Cornell M.D. [facility]anna DIAGNOSTIC IMAGING PROCEDURES * (ABNORMAL) Basic Metabolic Panel (11/23/2023 2:52 PM CDT) Pathologist [facility] Potassium, P 4.0 3.6 - 5.2 mmol/L [...] - 140 mg/dL 11/23/2023 3:15 PM CDT [facility] Blood (Blood, Venous) 11/23/2023 2:52 PM CDT 11/23/2023 2:58 PM CDT Christopher Cornell M.D. LAB BLOOD ADD- ON Performing Organization Address City/[facility] Co de Phone Number [facility] 200 [place], [place] [id number] [place] [address] 200 [place] [address] * (ABNORMAL) Troponin T, 2 Hour with 6 Hour Reflex, 5th Gen (11/23/2023 2:52 PM CDT) Troponin T, 2 hr, 5th gen 21(H) <=15 ng/L 11/23/2023 3:28 PM CDT ST[facility] 2H Delta 4 ng/L 11/23/2023 3:28 PM CDT [facility] Comment:6 hour collection pe nding. 2H Delta Interp Indeterminate 11/23/2023 3:28 PM CDT STMA Comment:Indeterminate delta, additional sample suggested Blood 11/23/2023 2:52 PM CDT 11/23/2023 2:58 PM CDT Bereket Snider M.D. LAB BLOOD TROPONIN Performing Organization Address [facility] Co de Phone Number [facility] [address] [place], [place] [id number] [place] [address] [address] [place] [address] * ECG 12 Lead (11/23/2023 2:45 PM CDT) Ventricular Rate ECG/Min 87 BPM MUSE [place] Interval 138 ms MUSE QRSD Interval 82 ms MUSE QT Interval 402 ms MUSE QTC Interval 483 ms MUSE P [place] 46 degrees MUSE R [place] 19 degrees MUSE T Wave [place] 37 degrees MUSE 11/23/2023 2:45 PM CDT [...] gy RST LOS, Neuroradiology ARZ LOS, Neuroradiology [facility] N/A Computed Tomography, Compute d Tomography 11/23/2023 [...] the cervical spine. Chronicchanges as noted. Bereket HUBERG CT PROCEDURES * CT Head without IV Contrast (11/23/2023 1:44 PM CDT) Anatomical Region Laterality Modality Head, Neuroradiology [facility] , [facility], Neur[facility]adiology [facility] N/A Computed Tomography, Compute d Tomography 11/23/2023 [...] Findings discussed with Bereket Snider M.D. (pager #[phone]) on 11/23/2023 at 1:24 PM. Narrative 11/23/2023 [...] Findings discussed with Bereket Snider M.D. (pager #[phone]) on 4at 1:24 PM. Bereket Snider M.D. IMG CT PROCEDURES * Lactate for Sepsis with Reflex, POCT (11/23/2023 1:06 PM CDT) Lactate, POCT 1.67 0.50 - 2.20 mmol/L 11/23/2023 1:19 PM CDT PCLX Blood (Blood, Venous) 11/23/2023 1:06 PM CDT 11/23/2023 1:06 PM CDT Bereket Snider M.D. LAB POCT ORDERABLES - DEVICE POC [facility] [address] [place] [address], [place] PCLX [facility] POC [address] [place] [address] * (ABNORMAL) Venous Blood Gas and Electrolytes [...] POCT ORDERABLES - DEVICE Performing Organization Address [facility] Co de Phone Number POC [facility] [address] [facility] [address] [place] [address] * (ABNORMAL) Troponin T, Baseline with 2 Hour/6 Hour Reflex Biomarker Panel (11/23/2023 1:06 PM CDT) [facility] Troponin T, Baseline, 5th gen 17(H) <=15 ng/L 11/23/2023 1:36 PM CDT STMA Blood (Blood, Venous) 11/23/2023 1:06 PM CDT 11/23/2023 1:18 PM CDT Bereket Snider M.D. LAB BLOOD TROPONIN Performing Organization Address City/[facility]/ZIP Co de Phone Number [facility] [address] [place] [address], [facility] [address] [place] [address] * Type and Screen (with Reflex Antibody ID) (11/23/2023 1:06 PM CDT) [facility] ABORh AB Pos Not applicable 11/23/2023 1:46 PM CDT STRM Antibody Screen Negative Negative 11/23/2023 1:59 PM CDT STRM Type & Screen Expiration 11/26/2023 23:59 11/23/2023 1:46 PM CDT STRM Testing Location Danielle DEFAULT 11/23/2023 1:19 PM CDT STRM Blood (Blood, Venous) 11/23/2023 1:06 PM CDT 11/23/2023 1:19 PM CDT Bereket Snider M.D. LAB BLOOD BANK TEST ORDERABLES Performing Organization Address [facility] Co de Phone Number [facility] [address] [facility] [address] [place] [address] * APTT (Activated Partial Thromboplastin Time) (11/23/2023 1:06 PM CDT) Activated Partial Thrombopl Time, P 30 25 - 37 sec 11/23/2023 2:03 PM CDT STMA Blood (Blood, Venous) 11/23/2023 1:06 PM CDT 11/23/2023 1:18 PM CDT Bereket Snider M.D. LAB BLOOD ADD-ON Performing Organization Address [facility] Co de Phone Number [facility] [address] [place] [address] * (ABNORMAL) Prothrombin Time (PT) (11/23/2023 1:06 [...] CDT Bereket Snider M.D. LAB BLOOD ADD-ON [facility] [address] [place] [address], [facility] STMA [facility] [address] [place] [address] * (ABNORMAL) CBC with Differential, Blood (11/23/2023 [...] M.D. LAB BLOOD ADD-ON Performing Organization Address City/[facility]/ZIP Co de Phone Number [facility] [address] [facility] [address] [place] [address] [facility] [address] [place] [address] * (ABNORMAL) S-TSH (Thyroid-Stimulating Hormone - Sensitive) (11/23/2023 1:05 PM CDT) TSH, Sensitive 6.1(H) 0.3 - 4.2 mIU/L 11/23/2023 2:14 PM CDT DTL Blood (Blood, Venous) 11/23/2023 1:05 PM CDT 11/23/2023 1:40 PM CDT Bereket Snider M.D. LAB BLOOD ADD-ON Performing Organization Address [facility] Co de Phone Number [facility] [address] [place], [place] [id number] [place] [address] [facility] [address] [place] [address] * Lipase (11/23/2023 1:05 PM CDT) Lipase, S 19 13 - 60 U/L 11/23/2023 2: 14 PM CDT DTL Blood (Blood, Venous) 11/23/2023 1:05 PM CDT 11/23/2023 1:40 PM CDT Bereket Snider M.D. LAB BLOOD ADD-ON Performing Organization Address City/[facility]/ZIP Co de Phone Number [facility] [address] [place] [address], [facility] [address] [place] [address] * (ABNORMAL) Hepatic Function Panel (11/23/2023 1:05 [...] CDT Bereket Snider M.D. LAB BLOOD ADD-ON [facility] [address] [place] [address], [facility] [address] [place] [address] * Ethanol Level, Serum (11/23/2023 1:05 PM CDT) Ethanol, S <10 <10 mg/dL 11/23/2023 2:1 4 PM CDT DTL Blood (Blood, Venous) 11/23/2023 1:05 PM CDT 11/23/2023 1:40 PM CDT Bereket Snider M.D. LAB BLOOD NON ADD-ON [facility] [address] [place] [address], [facility] DTL [facility] [address] [place] [address] * (ABNORMAL) Basic Metabolic Panel (11/23/2023 1:05 [...] CDT Bereket Snider M.D. LAB BLOOD ADD-ON [facility] [address] [place] [address], [place] STMA [address] [address] * DX Pelvis 1-2 Views (11/23/2023 1:01 [...] Comminuted left acetabular fracture. Bereket Snider M.D. [facility] PROCED[facility] * DX Chest [...] pleural effusion. Heart sizenormal. Bereket Snider M.D. [facility] * (ABNORMAL) Thromboelastograph, [...] Bereket Snider M.D. LAB BLOOD NON ADD-ON [facility] [address] [place] [address], [facility] STMA [facility] [address] [place] [address] documented in this encounter Visit Diagnoses Diagnosis [...] Given 12/16/2023 6:19 AM CDT 650 mg agicxavevfcxm-riszmupj-tmwfnhmfu in Lipoderm 2%-0.5%-2% cream 1 g 1 [...] mg (LASIX) 20 mg, intravenous, Once, On Tue11/27/23 at 1200, For 1 dose, Adults: Doses [...] 0150, For 1 dose, Created by cabinet marieide haloperidol lactate injection 2 mg (HALDOL) 2 mg, intravenous, Once, On 11/26/23 at 1330, For 1 dose Given 11/26/2023 1:12 PM CDT 2 mg haloperidol lactate injection 5 mg (HALDOL) 5 mg, intravenous, Once, On Annika 11/24/23 at 0215, For 1 dose Given 11/24/2023 1:55 AM CDT 5 mg haloperidol lactate injection 5 mg (HALDOL) 5 mg, intravenous, Once, On [facility] 11/24/23 at 0345, For 1 dose Given [...] intravenous, Once in imaging, contrast, Starting on Tue11/26/23 at 0554, For 1 dose, Imaging Protocol [...] mL/hr, Administer over 2 Hours, Once, On Tu11/29/23 at 1415, For 1 dose New Bag [...] mL/hr, Administer over 240 Minutes, Once, On Tue11/26/23 at 1130, For 1 dose New Bag [...] mg (LOPRESSOR) 12.5 mg, oral, Once, On 11/27/23 at 1015, For 1 dose Given 11/27/2023 [...] daily, First dose (after last modification) on Tue11/27/23 at 2100 Given 11/27/2023 11:32 PM CDT [...] 7-10 of 10, Starting on Tue12/02/23 at 2028 Given 12/05/2023 1:57 PM CDT 2.5 mg [...] 1-100 mL 1-100 mL, intravenous, Once, On 11/26/23 at 0615, For 1 dose, Imaging [...] bedtime, First dose on Annika 11/24/23 at 2100 Given 11/26/2023 9:24 PM [...] Kong Hines R.N. - Reason: Patient/family refused) lceyavuoagrho-cwmcunws-wd docaine in Lipoderm 2%-0.5%-2% cream 1 g 1 g, topical, 3 times daily, First dose (after last modification) on Tue11/24/23 at 0915 0903 (Not Given - Provider: Samantha Mcnamara R.N. - Reason: Patient/family refused)1313 (Not Given - Provider: Samantha Mcnamara R.N. - Reason: Patient/family refused)2036 (Not Given - Provider: Jared Cristobal R.N. [...] bedtime, First dose on Tue12/07/23 at 2100 203 (Given - Provider: Jared Cristobal R.N.) 222 (Given - Provider: Afshin Bocanegra R.N.) sennosides tablet 17.2 mg (SENOKOT) 17.2 mg, oral, 2 times daily, First dose on Tue11/25/23 at 2100 0905 (Not Given - Provider: Samantha Mcnamara R.N. - Reason: Patient/family refused)2034 (Given - Provider: Jared Eric L Dy, R.N.) 0815 (Not Given - Provider: Erum Calhoun R.N. - Reason: Patient/family refused)2230 (Not Given - Provider: Afshin Bocanegra R.N. - Reason: Patient/family refused) 1000 (Not Given - Provider: Bereket Singleton R.N. - Reason: Patient/family refused) tamsulosin 24 hr capsule 0.8 mg (FLOMAX) 0.8 mg, oral, Daily, First dose (after last modification) on 12/04/23 at 0900, Swallow whole. Do NOT crush, chew or open capsule. 0905 (Not Given - Provider: Samantha Mcnamara [...] PRN, wheezing, shortness of breath, Starting on 11/23/23 at 1655 melatonin tablet 5 mg 5 [...] 1856 documented in this encounter Care Teams Tile Setter Supervisor Relationship Specialty Start Date End Date Elsewhere, Pcp PCP - General Internal Medicine 11/23/23 documented as of this encounter
--- OUTSIDE RECORDS SUMMARY | 2024-03-22 10:56 | XMS_ITS | Clinical Summary ---
Author Organization [employer] [facility] Address [place], [place] [address] Care Team Providers Care Television Program Director Name Role Phone [place] Primary Care Provider [phone] Allergies No known active allergies Medications Medication [...] urinary obstruction 10/14/2017 Hearing decreased, bilateral 10/14/2017 Immunizations Name Administration Dates Next Due Td [...] PCV) 2007 Tetanus booster 09/19/2013 09/20/2003, 2000 RSV vaccine for adults or (1 - 1-dose 75+ series) 2017 Medicare Wellness for age 65+ 10/14/2018 10/13/2017 BMI (ht and wt on same day) for age 18+ 08/24/2019 08/23/2018, 10/13/2017, 12/15/2015 Depression screening for age 12+ 08/24/2019 08/23/2018, 10/13/2017, 10/13/2017, Additional history exists COVID-19 vaccine series ( season) 2024 Influenza for age 65+ 02/19/2024 Medical Devices Implanted Type Area Pocket Maker Device Identifier Shelf Expiration Date Model / Serial / Lot Iol [place] +23.5 [employer]ec[employer] Zcb00 - [id number] Implanted:Qty: 1 on 09/04/2018 by Pacheco Greenwood MD at [facility] Right: Eye [employer] 03/03/2022 ZCB00 23.5# / [id number] / Iol [place] +23.5 Tecnis Zcb00 - [id number] Implanted:Qty: 1 on 10/12/2018 by Pacheco Greenwood MD at [facility] Left: Eye [employer] 01/09/2022 ZCB00 23.5# / [id number] / Advance Directives * Full Code (Latest Code Status on File) Date Activated Date Inactivated Comments 10/12/2018 9:48 AM 10/12/2018 4:08 PM * Full Code Date Activated Date Inactivated Comments 09/04/2018 8:31 AM 09/04/2018 1:15 PM Care Teams Television Program Director Relationship Specialty Start Date End Date [place] 1 Vetr[employer] IGOR Sharpe [phone] PCP - General 09/28/22
[2024-03-22 11:26] LABS: Basophils Percent Auto 0.3 % (0.0-3.0); Hematocrit 44.5 % (37.0-53.0); Hemoglobin* 14.1 gm/dL (13.5-17.5); Immature Granulocytes Pct Auto 0.7 %; Lymphocytes Percent Auto 33.6 % (20-44); Mean Corpuscular HGB Conc 32 gm/dL (32-36); Mean Corpuscular Hemoglobin 30 pg (26-34); Mean Corpuscular Volume 94 fL (80-100); Monocytes Percent Auto 13.4 % (0.0-11.0); Platelet Count* 155 K/uL (140-440); RDW Coefficient of Variation % 14.5 % (11.5-15.5); Red Blood Count 4.72 m/uL (4.30-5.90); Slide Review Reflex No; White Blood Count* 3.07 K/uL (4.50-11.00)
[2024-03-22 11:36] LABS: Chloride* 103 mmol/L (96-114)
[2024-03-22 11:37] LABS: Albumin* 4.3 g/dL (3.3-5.0); Sodium* 138 mmol/L (135-149)
[2024-03-22 11:38] LABS: Potassium* 4.1 mmol/L (3.6-5.1)
[2024-03-22 11:40] LABS: Creatinine* 0.9 mg/dL (0.5-1.5); Estimated Glomerular Filt Rate 86 ml/min
[2024-03-22 11:41] LABS: Alanine Aminotransferase* 14 U/L (4-50); Alkaline Phosphatase* 91 U/L (40-150); Anion Gap 7 mEq/L (7-15); Aspartate Amino Transferase* 27 U/L (12-35); Bilirubin Direct* 0.2 mg/dL (0.0-0.5); Bilirubin Total* 0.8 mg/dL (0.1-1.5); Blood Urea Nitrogen* 33 mg/dL (7-30); Carbon Dioxide* 28 mmol/L (20-32); Glucose* 94 mg/dL (60-115); Magnesium* 2.3 mg/dL (1.5-2.6); Total Protein* 7.3 g/dL (6.0-8.3)
--- NOTE | 2024-03-22 11:41 | ED_ITS ---
HPI - General Adult General Chief complaint: Dizziness/Vertigo Stated complaint: dizziness Time Seen by Provider: 03/22/24 10:32 Source: patient and family Mode of arrival: ambulatory Limitations: no limitations History of Present Illness HPI narrative: 83-year-old male with a history of dementia presents with his with concerns about dizziness. Per his she states that he woke up yesterday and stated that he has never felt so dizzy in his life. He spent the remainder of the day sitting in his chair. He did tell her that the dizziness continued even when he was sitting and not moving. This morning he woke up and continued to feel dizzy so she brought him in for evaluation. She stated that he was able to get around yesterday very slowly and holding onto the lacey as he was very unsteady on his feet. There is no vomiting or nausea. He has been eating normally. Denies any urinary symptoms, no diarrhea. No fevers or chills. Patient states he does have a headache. The patient is an unreliable historian given his history of dementia. states that he is often times forgetful. Past medical history is significant for CVA. Patient has refused any medications. Related Data Home Medications ?Medication ?Instructions ?Recorded ?Confirmed finasteride 5 mg tablet mg 01/23/24 02/22/24 Previous Rx's ?Medication ?Instructions ?Recorded hydrocortisone 2.5 % topical cream 1 applic topical BID PRN itching 02/22/24 #20 grams nitrofurantoin 100 mg PO BID 7 days #14 caps 03/22/24 monohydrate/macrocrystals 100 mg capsule (Macrobid) Allergies Allergy/AdvReac Type Severity Reaction Status Date / Time No Known Drug Allergies Allergy Verified 03/22/24 10:27 Review of Systems Status of ROS: Reports: 10 or more systems reviewed and unremarkable except as noted in History and below [facility] Medical History Sensorineural hearing loss ?H90.5 - Unspecified sensorineural hearing loss (ICD-10) Lumbar degenerative disc disease ?M51.36 - Other intervertebral disc degeneration, lumbar region (ICD-10) Retention of urine (09/03/21) ?R33.9 - Retention of urine, unspecified (ICD-10) Social History Smoking Status: Never smoker Do you use any of these nicotine containing products: None Second hand tobacco smoke exposure: Yes How often do you have a drink containing alcohol: never How often do you have six or more drinks on one occasion: Never AUDIT-C Alcohol total score: 0 Non-prescribed substance use: denies use service: Yes Exam Narrative: Exam Narrative: Well-nourished well-developed patient in no acute distress. Patient has obvious dementia. He states that he feels fine, does not know why he is here. But then does state that he has a headache. HEENT: Normocephalic atraumatic. Pupils are equally round reactive to light. Extraocular muscles are intact. Conjunctivae are moist without any icterus noted. Moist mucous membranes. Posterior pharynx is normal. Neck is soft . Cardiovascular: Heart is regular rate and rhythm S1 and S2 are present without any murmurs. Lungs: Clear to auscultation bilaterally no wheezes rhonchi or rales are appreciated. Patient takes deep breaths without any discomfort. Abdomen: Soft and nontender nondistended with normal bowel sounds. Extremities: Bilateral lower extremities are without edema. Skin: Well perfused without any obvious rashes. Strength is 5/5 of the upper and lower extremities. Reflexes are 2+ and symmetric at the knees. Romberg sign is negative. There is no nystagmus either horizontally or vertically. Gait is unsteady. Const: Vital Signs, click to edit/add: Vital Signs - 24 hr 03/22/24 10:20 03/22/24 10:56 03/22/24 10:57 Temperature 98.1 F Pulse Rate 63 Pulse Rate [Left P ulse Oximeter] 66 Respiratory Rate 18 16 Blood Pressure 124/66 Blood Pressure [Ri ght Upper Arm] 160/75 H Pulse Oximetry 98 92 97 Oxygen Delivery Me thod Room Air 03/22/24 10:58 03/22/24 12:12 03/22/24 12:13 Temperature Pulse Rate 62 58 L 59 L Pulse Rate [Left P ulse Oximeter] Respiratory Rate Blood Pressure 154/85 H Blood Pressure [Ri ght Upper Arm] Pulse Oximetry 95 99 98 Oxygen Delivery Me thod 03/22/24 12:15 03/22/24 12:30 03/22/24 12:32 Temperature Pulse Rate 61 60 60 Pulse Rate [Left P ulse Oximeter] Respiratory Rate 16 Blood Pressure 169/91 H Blood Pressure [Ri ght Upper Arm] Pulse Oximetry 98 98 98 Oxygen Delivery Me thod 03/22/24 12:45 03/22/24 13:00 03/22/24 13:02 Temperature Pulse Rate 63 58 L 58 L Pulse Rate [Left P ulse Oximeter] Respiratory Rate 16 Blood Pressure 152/87 H Blood Pressure [Ri ght Upper Arm] Pulse Oximetry 97 97 96 Oxygen Delivery Me thod 03/22/24 13:03 03/22/24 13:15 03/22/24 13:30 Temperature Pulse Rate 59 L 62 58 L Pulse Rate [Left P ulse Oximeter] Respiratory Rate Blood Pressure Blood Pressure [Ri ght Upper Arm] Pulse Oximetry 98 96 97 Oxygen Delivery Me thod 03/22/24 13:32 03/22/24 13:49 03/22/24 14:02 Temperature Pulse Rate 59 L 59 L Pulse Rate [Left P ulse Oximeter] Respiratory Rate Blood Pressure 154/83 H 172/96 H Blood Pressure [Ri ght Upper Arm] Pulse Oximetry 95 97 Oxygen Delivery Me thod 03/22/24 14:32 03/22/24 15:02 03/22/24 16:02 Temperature Pulse Rate Pulse Rate [Left P ulse Oximeter] Respiratory Rate Blood Pressure 163/80 H 150/79 H 168/89 H Blood Pressure [Ri ght Upper Arm] Pulse Oximetry Oxygen Delivery Me thod Course Course ED Course: Given that the patient was complaining of continuous dizziness throughout the day despite movement or activity, it is concerning for the possibility of stroke. Therefore, head CT was done and that was unremarkable. Head and neck CTA follow-up did not show any acute evidence of significant stenosis. Patient continued having symptoms while in the ED, therefore MRI was ordered. While waiting for the MRI, we did do some blood work which was unremarkable aside from a UA which does appear to be grossly positive for signs of infection. Given that the MRI could not be done for several hours patient was given a dose of oral Macrobid while he was waiting in the ER. He was able to eat while he was here without difficulty. MRI did not show any acute evidence of stroke. Vital Signs Vital signs: Initial Vital Signs Temperature 98.1 F 03/22/24 10:20 Temperature Source Temporal Artery Scan 03/22/24 10:20 Pulse Rate 66 03/22/24 10:20 Respiratory Rate 18 03/22/24 10:20 Blood Pressure 160/75 H 03/22/24 10:20 Blood Pressure Mean 103 03/22/24 10:20 Blood Pressure Position Sitting 03/22/24 10:20 Pulse Oximetry 98 03/22/24 10:20 Oxygen Delivery Method Room Air 03/22/24 10:20 Vital Signs Temperature 98.1 F 03/22/24 10:20 Pulse Rate 66 03/22/24 10:20 Respiratory Rate 18 03/22/24 10:20 Blood Pressure 160/75 H 03/22/24 10:20 Pulse Oximetry 98 03/22/24 10:20 Oxygen Delivery Method Room Air 03/22/24 10:20 Temperature 98.1 F 03/22/24 10:20 Pulse Rate 59 L 03/22/24 13:49 Respiratory Rate 16 03/22/24 13:02 Blood Pressure 168/89 H 03/22/24 16:02 Pulse Oximetry 97 03/22/24 13:49 Oxygen Delivery Method Room Air 03/22/24 10:20 Medications Administered Medications: Discontinued Medications Generic Name Dose Route Start Last Admin Trade Name Freq PRN Reason Stop Dose Admin Nitrofurantoin Macrocrystals 100 mg 03/22/24 13:57 03/22/24 14:18 Nitrofurantoin Monohyd Macro 100 Mg Capsule PO 03/22/24 13:58 100 mg ONCE ONE Administration Medical Decision Making MDM Narrative Medical decision making narrative: 83-year-old male with dizziness for 2 days. Workup positive for UTI. No evidence of stroke. Estimated creatinine clearance greater than 30, will treat with Macrobid b.i.d. for 7 days. Lab Data Labs: Lab Results 03/22/24 03/22/24 Range/Units 11:00 12:22 WBC 3.07 L (4.50-11.00) K/uL RBC 4.72 (4.30-5.90) m/uL Hgb 14.1 (13.5-17.5) gm/dL Hct 44.5 (37.0-53.0) % MCV 94 (80-100) fL MCH 30 (26-34) pg MCHC 32 (32-36) gm/dL RDW Coeff of [place] 14.5 (11.5-15.5) % Plt Count 155 (140-440) K/uL Neut % (Auto) 51.0 (42.0-72.0) % Lymph % (Auto) 33.6 (20-44) % [place] % (Auto) 13.4 H (0.0-11.0) % Eos % (Auto) 1.0 (0.0-7.0) % Baso % (Auto) 0.3 (0.0-3.0) % Neut # (Auto) 1.60 L (1.7-7.0) K/uL Lymph # (Auto) 1.00 (0.90-2.90) K/uL [place] # (Auto) 0.40 (0.00-0.90) K/UL Eos # (Auto) 0.00 (0.00-0.50) K/uL Baso # (Auto) 0.00 (0.00-0.30) K/uL Abs Immat Gran (auto) 0.00 (0.00-0.30) K/uL Imm/Tot Granulo (auto) 0.7 % Sodium 138 (135-149) mmol/L Potassium 4.1 (3.6-5.1) mmol/L Chloride 103 (96-114) mmol/L Carbon Dioxide 28 (20-32) mmol/L Anion Gap 7 (7-15) mEq/L BUN 33 H (7-30) mg/dL Creatinine 0.9 (0.5-1.5) mg/dL Estimated Creat Clear 61.70 Estimated GFR 86 ml/min Glucose 94 (60-115) mg/dL Calcium 9.0 (8.4-10.6) mg/dL Magnesium 2.3 (1.5-2.6) mg/dL Total Bilirubin 0.8 (0.1-1.5) mg/dL Direct Bilirubin 0.2 (0.0-0.5) mg/dL AST 27 (12-35) U/L ALT 14 (4-50) U/L Alkaline Phosphatase 91 (40-150) U/L Troponin I < 0.01 L (0.01-0.04) ng/mL C-Reactive Protein < 0.5 L (0.5-1.0) mg/dL Total Protein 7.3 (6.0-8.3) g/dL Albumin 4.3 (3.3-5.0) g/dL TSH 4.440 H (0.270-4.20) uIU/mL Urine Color Yellow (Yellow) Urine Appearance Cloudy A (Clear) Urine pH 6.0 (5.0-8.5) Ur Specific [place] 1.010 (1.000-1.030) Urine Protein Negative (Negative) Urine Glucose (UA) Negative (Negative) Urine Ketones Negative (Negative) Urine Blood Trace-intact A (Negative) Urine Nitrite Positive A (Negative) Urine Bilirubin Negative (Negative) Urine Urobilinogen 0.2 (0.2-1.0) Ur Leukocyte Esterase 2+ A (Negative) Urine RBC 5-10 A (0-2) Urine WBC >100 A (0-5) Ur Squamous Epith Cells Few (None-Few) Urine Bacteria Many A (None) Imaging Data CT scan - head: Attestation: I have reviewed the pertinent imaging results. Radiologist's impression: CT head without contrast. COMPARISON: 08/20/2021. FINDINGS: CSF spaces: Within normal limits for age. Brain parenchyma and extra-axial spaces: Mild generalized volume loss consistent with physiologic aging. Mild periventricular white matter hypoattenuation suggestive of chronic microvascular disease. No sign of mass, hemorrhage, or midline shift. No extra-axial fluid collection. Skull base and calvarium: The visualized paranasal sinuses and mastoid air cells demonstrate no acute or significant findings. Bilateral lens replacements. No skull fractures. Calcifications of bilateral cavernous carotids. IMPRESSION: No acute intracranial abnormality. No acute fracture. CTA Head: Attestation: I have reviewed the pertinent imaging results. Radiologist's impression: Study:?CT-Head Angio CTA HEAD AND NECK W/ ISOVUE 370-03/22/2024 12:17:29 PM Ordering Physician:Bettina Greenwood Preliminary Report: The skull base internal carotid arteries demonstrate moderate scattered atherosclerotic calcification. Patent anterior cerebral and middle cerebral arteries. 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 CTA neck: Attestation: I have reviewed the pertinent imaging results. Radiologist's impression: CTA neck with contrast bolus tracking, 3D angiographic rendering using maximum intensity projection (MIP) and images permanently archived. FINDINGS: There is ulcerated plaque in the proximal right internal carotid artery that results in a moderate stenosis, 65 percent by NASCET. There is atherosclerotic plaque in the proximal left internal carotid artery without significant stenosis. There is no significant vertebral artery stenosis or dissection. The soft tissues of the neck are within normal limits. The cervical spine is in normal alignment. Degenerative changes are noted in the cervical spine. 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 MRI - head: Attestation: I have reviewed the pertinent imaging results. Radiologist's impression: Comparison: CT head March 22, 2024 Findings: On midline sagittal T1 images there are preserved flow voids within the sagittal sinuses. The corpus callosum is preserved in signal and contour. The pituitary gland is unremarkable without evidence of remodeling of the sella turcica. There is no significant cerebellar tonsillar ectopia. On diffusion-weighted sequences, there is no evidence of acute or subacute infarct. On blood sensitive sequences, there is demonstration of minimal signal dropout within the anterior superior left frontal lobe. There is moderate global cortical atrophy with sulcal widening and ex vacuo dilatation of the lateral ventricles. There are scattered T2/FLAIR subcortical and periventricular hyperintensities commensurate with chronic small-vessel disease changes. There are dilated Virchow Elmo spaces within the basal ganglia. The flow voids at the skull base are unremarkable. The orbits and their contents are within normal limits. There is minimal chronic mucosal thickening within the paranasal sinuses. There is minimal fluid in the bilateral mastoid air cells. Impression: Age-related and chronic small-vessel disease changes of the brain without acute intracranial abnormality to suggest infarct. Discharge Plan Discharge Clinical Impression: Dizziness, Acute UTI Patient Disposition: Home w/ Parent or Adult Condition: Stable Additional Instructions: Take all antibiotics as prescribed. Move slowly throughout the house until dizziness gets better. If dizziness is not better by Tuesday, follow-up with primary care provider. Return to the ER for worsening symptoms. Prescriptions: New nitrofurantoin monohyd/m-cryst [Macrobid] 100 mg capsule 100 mg PO BID 7 Days Qty: 14 0RF Rx Instructions: must administer with a meal/food No Action hydrocortisone 2.5 % cream 1 applic topical BID PRN (Reason: itching) Qty: 20 0RF finasteride 5 mg tablet Patient Comments: TAKE ONE TABLET BY MOUTH ONE TIME DAILY* Follow Up/Referrals: Provider,Not a Local [Primary Care Provider] - Stand Alone Forms: MyHealth Info Instructions
[2024-03-22 11:47] LABS: C Reactive Protein* < 0.5 mg/dL (0.5-1.0)
[2024-03-22 11:53] LABS: Troponin I* < 0.01 ng/mL (0.01-0.04)
[2024-03-22 12:28] LABS: Appearance Urine Cloudy (Clear); Bilirubin Urine Negative (Negative); Blood Urine Trace-intact (Negative); Color Urine Yellow (Yellow); Glucose Urine Negative (Negative); Ketones Urine Negative (Negative); Leukocyte Esterase Urine 2+ (Negative); Nitrite Urine Positive (Negative); Protein Urine Negative (Negative); Urobilinogen Urine 0.2 (0.2-1.0)
--- NOTE | 2024-03-22 12:44 | CRLHL7_ITS ---
For Patients: As a result of the Century Cures Act, medical imaging exams and procedure reports are released immediately into your electronic medical record. You may view this report before your referring provider. If you have questions, please contact your health care provider. Indication: Neurological deficit Technique: Multiplanar, multisequence MR images of the brain were obtained without the administration of IV contrast. Comparison: CT head March 22, 2024 Findings: On midline sagittal T1 images there are preserved flow voids within the sagittal sinuses. The corpus callosum is preserved in signal and contour. The pituitary gland is unremarkable without evidence of remodeling of the sella turcica. There is no significant cerebellar tonsillar ectopia. On diffusion-weighted sequences, there is no evidence of acute or subacute infarct. On blood sensitive sequences, there is demonstration of minimal signal dropout within the anterior superior left frontal lobe. There is moderate global cortical atrophy with sulcal widening and ex vacuo dilatation of the lateral ventricles. There are scattered T2/FLAIR subcortical and periventricular hyperintensities commensurate with chronic small-vessel disease changes. There are dilated Virchow Elmo spaces within the basal ganglia. The flow voids at the skull base are unremarkable. The orbits and their contents are within normal limits. There is minimal chronic mucosal thickening within the paranasal sinuses. There is minimal fluid in the bilateral mastoid air cells. Impression: Age-related and chronic small-vessel disease changes of the brain without acute intracranial abnormality to suggest infarct. Dictated by Naveed Mcrae MD @ 03/22/2024 4:24:12 PM (Electronically Signed)
[2024-03-22 13:11] LABS: Bacteria Urine Many; Squamous Epithelial Cell Urine Few (None-Few); WBC Urine >100 (0-5)
[2024-03-22] MEDS: NITROFURANTOIN MONOHYD MACRO 100 MG CAPSULE PO (14:18)
== END 2024-03-22 17:00 | disposition home or self-care (01) ==
PROVIDERS: Emergency Provider Family Medicine
DX: R42 Dizziness and giddiness (principal); N39.0 Urinary tract infection, site not specified
CPT/HCPCS: 36415; 70450; 70496; 70498; 70551; 80048; 80076; 81001; 83735; 84443; 84484; 85025; 86140; 87086; 87186; 93005; 99284; 99285; A9270; Q9967

== ENCOUNTER 2024-05-31 06:53 | Outpatient (CLI) | payer OTHER, SELFPAY | END 2024-05-31 06:54 | disposition home or self-care (01) | LOC: AMB 06-07 03:06 | PROVIDERS: Visit Provider Family Medicine | DX: F29 Unspecified psychosis not due to a substance or known physiological condition (principal) | CPT/HCPCS: A0425; A0429 ==

== ENCOUNTER 2024-05-31 07:29 | Observation (INO) | payer OTHER, SELFPAY ==
[2024-05-31] VITALS (9 sets, daily range): BP systolic 114–190; BP diastolic 47–88; PULSE 72–88; RESP 16–20; TEMP 36.4–37.2; O2SAT 95–99; BMI 25.1
--- NOTE | 2024-05-31 07:40 | CRLHL7_ITS ---
For Patients: As a result of the Century Cures Act, medical imaging exams and procedure reports are released immediately into your electronic medical record. You may view this report before your referring provider. If you have questions, please contact your health care provider. INDICATION: Altered mental status COMPARISON: March 22, 2024 TECHNIQUE: CT examination of the head was performed as axial sections without intravenous contrast. Images were obtained from the vertex of the skull through the skull base. Please note that all CT scans at this facility use dose modulation, iterative reconstruction, and/or weight-based dosing when appropriate to reduce radiation dose to as low as reasonably achievable. FINDINGS: The brain shows no sign of mass lesion, mass effect, hemorrhage, or edema. There are involutional changes. There is mild cortical atrophy and there is mild white matter disease. There is no hydrocephalus. The appearance is stable. The visualized portions of the orbits are normal in appearance. The osseous structures are normal in appearance with no sign of abnormality in the skull base or calvarium. IMPRESSION: Age-appropriate involutional changes similar in appearance to the prior study. No acute focal findings. Please note that all CT scans at this facility use dose modulation, iterative reconstruction, and/or weight-based dosing when appropriate to reduce radiation dose to as low as reasonably achievable. Dictated by Alexi Lackey MD @ 05/31/2024 8:13:27 AM (Electronically Signed)
--- NOTE | 2024-05-31 07:41 | ED_ITS ---
HPI - General Adult General Chief complaint: Unspecified Complaint, Adult <Isa Hayes MD - Last Filed: 06/05/24 00:03> Stated complaint: confusion <Isa Hayes MD - Last Filed: 06/05/24 00:03> Time Seen by Provider: 05/31/24 07:40 <Isa Hayes MD - Last Filed: 06/05/24 00:03> Source: EMS <Isa Hayes MD - Last Filed: 06/05/24 00:03> Mode of arrival: EMS <Isa Hayes MD - Last Filed: 06/05/24 00:03> History of Present Illness HPI narrative: 83-year-old male is brought in by EMS. He was found out [place], notably it is quite frigid. A concern motor is pulled over and asked him if he needed help. She convinced him to get into the car and called 911. Police and medics arrived, found to be quite warm. Was estimated that he was only gone from home for about 30 minutes. He was very well bundled. Socks heavy snow boots, long underwear under appropriate clothing with 2 coats hat and gloves. He was very clean. He reported to EMS and to myself that he got frustrated with his , and decided today was the day that he would leave her. He reports to me that he does still dry but he left on foot today. Shortly after my interview, we got a call from [facility] and they report that the family is concerned that this is an abrupt behavior change for him. He has not been himself for the past 2 days. He denies any fever, chest pain, shortness of breath or other abnormality today. When I ask if it is okay for me to call his , he says that we should and because she will ?tell untrue stories?. We are still awaiting this information at the time of my documentation. Review of systems is barroso negative per patient. He states that he has no long- term medical problems, he does not take any medications. He says that about 1 year ago he fell off a ladder and hit his head but does not recall that there were any secondary complications from this. EMS recalls picking him up after this fall and it was about 2 years ago and it sounded like he had some injuries but I will review the chart further. It does not look as though he takes any medications, no allergies are listed. No recent surgical procedures or other interventions performed through our facility. Denies alcohol or drug use. <Isa Hayes MD - Last Filed: 06/05/24 00:03> Related Data Home medications: Previous Rx's ?Medication ?Instructions ?Recorded ciprofloxacin HCl 500 mg tablet 500 mg PO BID 4 days #8 tabs 06/01/24 <Isa Hayes MD - Last Filed: 06/05/24 00:03> Allergies/adverse reactions: Allergies Allergy/AdvReac Type Severity Reaction Status Date / Time No Known Drug Allergies Allergy Verified 05/31/24 08:05 <Isa Hayes MD - Last Filed: 06/05/24 00:03> [facility] Medical History: Medical History (Updated 06/01/24 @ 09:51 by Lyla Thakkar MD) Carotid artery stenosis ?I65.29 - Occlusion and stenosis of unspecified carotid artery (ICD-10) Traumatic brain injury ?S06.9XAA - Unspecified intracranial injury with loss of consciousness status unknown, initial encounter (ICD-10) Sensorineural hearing loss ?H90.5 - Unspecified sensorineural hearing loss (ICD-10) Lumbar degenerative disc disease ?M51.36 - Other intervertebral disc degeneration, lumbar region (ICD-10) Retention of urine (09/03/21) ?R33.9 - Retention of urine, unspecified (ICD-10) <Isa Hayes MD - Last Filed: 06/05/24 00:03> Family History: Family History (Updated 05/31/24 @ 12:56 by Lyla Thakkar MD) Other Dementia <Isa Hayes MD - Last Filed: 06/05/24 00:03> Social History: Social History (Updated 05/31/24 @ 13:00 by Lyal Thakkar MD) Narrative: . Lives at home with . noted that their son, who lives in [place], is driving up to take Carlos Alberto home with him to live. Carlos Alberto denies tobacco or alcohol use. says he is DNR/DNI. What is your current living situation?: I presently have a place to live Problems where you live: no known problems Problems where you live details: na In the past 12 months, utilities in danger of being shut off: no In the past 12 mos, have been you worried that your food would run out before you had money to buy more?: never true In the past 12 mos, the food you bought just didn't last and you didn't have money to buy more?: never true Highest level of school completed/degree received: Associate degree: occupational, technical, vocational program Smoking Status: Never smoker Do you use any of these nicotine containing products: None Second hand tobacco smoke exposure: Yes How often do you have a drink containing alcohol: never How often do you have six or more drinks on one occasion: Never AUDIT-C Alcohol total score: 0 Non-prescribed substance use: denies use How often does anyone, including family, friends and others, physically hurt you : unable to answer How often does anyone, including family, friends and others, insult or talk down to you: unable to answer How often does anyone, including family, friends and others, threaten you with harm: unable to answer How often does anyone, including family, friends and others, scream or curse at you: unable to answer service: Yes <Isa Hayes MD - Last Filed: 06/05/24 00:03> Exam Const: Vital Signs, click to edit/add: Vital Signs - 24 hr 05/31/24 07:41 05/31/24 11:19 Temperature 99.0 F Pulse Rate [Right Pulse Oximeter] 76 88 Respiratory Rate 18 18 Blood Pressure [Ri ght Upper Arm] 190/88 H 138/69 Pulse Oximetry 97 98 Oxygen Delivery Me thod Room Air Room Air <Isa Hayes MD - Last Filed: 06/05/24 00:03> Vital Signs, click to edit/add: Vital Signs - 24 hr 05/31/24 07:41 05/31/24 11:19 Temperature 99.0 F Pulse Rate [Right Pulse Oximeter] 76 88 Respiratory Rate 18 18 Blood Pressure [Ri ght Upper Arm] 190/88 H 138/69 Pulse Oximetry 97 98 Oxygen Delivery Me thod Room Air Room Air <Krystyna Kelsey MD - Last Filed: 05/31/24 11:33> Documenting provider has reviewed patient's vital signs: yes <Isa Hayes MD - Last Filed: 06/05/24 00:03> Common normals: alert <Isa Hayes MD - Last Filed: 06/05/24 00:03> General appearance: well kempt <Isa Hayes MD - Last Filed: 06/05/24 00:03> Other: Friendly and cooperative, answers questions well. He is very clean. His clothing is actually totally appropriate for having been outside. He arrives warm, conversational follows commands and has no signs of agitation. Smell slightly of ketones. <Isa Hayes MD - Last Filed: 06/05/24 00:03> HENMT: Common normals: normocephalic <Isa Hayes MD - Last Filed: 06/05/24 00:03> Head and scalp: normocephalic <Isa Hayes MD - Last Filed: 06/05/24 00:03> Face and sinus: normal facial exam <Ias Hayes MD - Last Filed: 06/05/24 00:03> Mouth: oral and palatal mucosa normal <Isa Hayes MD - Last Filed: 06/05/24 00:03> Throat: posterior oropharynx normal <Isa Hayes MD - Last Filed: 06/05/24 00:03> Eye: Common normals: conjunctivae normal <Isa Hayes MD - Last Filed: 06/05/24 00:03> General eye: normal appearance of both eyes <MD Joselin Monterroso Last Filed: 06/05/24 00:03> Conjunctiva: conjunctiva(e) normal <MD Joselin Monterroso Last Filed: 06/05/24 00:03> Neck & C-Spine: Common normals: full ROM and no lymphadenopathy <Isa Hayes MD - Last Filed: 06/05/24 00:03> Resp: Common normals: normal respiratory effort, no use of accessory muscles and clear to auscultation bilaterally <Isa Hayes MD - Last Filed: 06/05/24 00:03> Effort & inspection: able to speak in complete sentences <MD Joselin Monterroso Last Filed: 06/05/24 00:03> Auscultation: clear to auscultation bilaterally <MD Joselin Monterroso Last Filed: 06/05/24 00:03> Cardio: Common normals: regular rate, regular rhythm, S1 normal heart sound, S2 normal heart sound and no murmurs <Isa Hayes MD - Last Filed: 06/05/24 00:03> Rate: regular rate <MD Joselin Monterroso Last Filed: 06/05/24 00:03> Rhythm: regular rhythm <MD Joselin Monterroso Last Filed: 06/05/24 00:03> Heart sounds: S1 normal and S2 normal <MD Joselin Monterroso Last Filed: 06/05/24 00:03> GI: Common normals: Normal to inspection, nondistended, normoactive bowel sounds present, soft to palpation, non-tender, no hepatosplenomegaly and no masses <Isa Hayes MD - Last Filed: 06/05/24 00:03> Palpation: soft and no hepatosplenomegaly <MD Joselin Monterroso Last Filed: 06/05/24 00:03> Extremity: Common normals: normal to inspection, normal capillary refill and no pedal edema <MD Joselin Monterroso Last Filed: 06/05/24 00:03> Other: No signs of injury or trauma. She is in socks are removed, toes are nice and warm. Good capillary refill and pedal pulses. <MD Joselin Monterroso Last Filed: 06/05/24 00:03> Neuro: Common normals: moves all extremities, no focal motor deficits, no sensory deficits noted and gait normal <MD Joselin Monterroso Last Filed: 06/05/24 00:03> Sensorium/orientation: alert <MD Joselin Monterroso Last Filed: 06/05/24 00:03> Motor exam: no tremor noted and no movement abnormalities noted <Isa Hayes MD - Last Filed: 06/05/24 00:03> Psych: Common normals: cooperative <Isa Hayes MD - Last Filed: 06/05/24 00:03> Appearance: well kempt <Isa Hayes MD - Last Filed: 06/05/24 00:03> Attitude: engaged <Isa Hayes MD - Last Filed: 06/05/24 00:03> Other: Does seem to be some mild memory impairment insight seems fair. Cooperative, thought process is logical. Does not seem to be expressing any suicidality or intent to harm others. <Isa Hayes MD - Last Filed: 06/05/24 00:03> Skin: Common normals: no rashes or lesions noted <Isa Hayes MD - Last Filed: 06/05/24 00:03> Narrative: No signs of recent injury or trauma. <Isa Hayes MD - Last Filed: 06/05/24 00:03> General skin exam: no rashes or lesions noted <sIa Hayes MD - Last Filed: 06/05/24 00:03> Course Course ED Course: 83-year-old male found out wandering outside, well dressed for weather but still not quite appropriate. I suspect he is developing underlying dementia but cannot rule out acute delirium, metabolic abnormality, stroke, infection or other medical event. We need more information from family. It sounds as though he does not go to the doctor to review any other primary care records. No reviewed from 2 years ago from fall from ladder. Will start with a head CT, basic labs. Await additional information regarding his baseline. At this time though he does not seem to be suffering from any acute emergent illness. We do have few other high acuity patients in the ED right now and this will likely slow his workup. <Isa Hayes MD - Last Filed: 06/05/24 00:03> Reevaluation(s) Time of Reevaluation #1: 10:59 <Krystyna Kelsey MD - Last Filed: 05/31/24 11:33> Reevaluation #1: Patient does have a UTI. He had E coli in March, . Will give him 500 mg oral Keflex now. Marketing Support Specialist is here to help evaluate for disposition. Patient could theoretically go home on oral medication for UTI. His had called earlier, case management social worker will start with her to see about plan for disposition. His did tell staff that he does have a dementia diagnosis. Will also do a bladder scan, CE he has had urinary retention back and 2021. <Krystyna Kelsey MD - Last Filed: 05/31/24 11:33> Consultations Consultation #1: Reviewed with Dr. Oquendo whom accepts. Trinidad from case management social worker did speak with his . She had fallen asleep in the recliner when the patient absconded from the house. He reportedly started accusing her and becoming paranoid which is new, was accusing her of stealing from him. She lives alone with him in the house, does not feel safe. There is a son that lives in [place] that Trinidad spoke to. He is going to drive up and take this patient home with him, he and his feel that they can care for him at home safely. His does not feel like she can accommodate caring for him at home anymore and is in agreement with the plan. We will need to observe him overnight for safety, will ensure that his urinary tract infection does not indicate more significant infection. <Krystyna Kelsey MD - Last Filed: 05/31/24 11:33> Time: 11:29 <Krystyna Kelsey MD - Last Filed: 05/31/24 11:33> Vital Signs Vital signs: Initial Vital Signs Temperature 99.0 F 05/31/24 07:41 Temperature Source Temporal Artery Scan 05/31/24 07:41 Pulse Rate 76 05/31/24 07:41 Pulse Rhythm Regular 05/31/24 07:41 Pulse Strength 3+ Normal 05/31/24 07:41 Respiratory Rate 18 05/31/24 07:41 Blood Pressure 190/88 H 05/31/24 07:41 Blood Pressure Mean 122 H 05/31/24 07:41 Blood Pressure Position Semi-Fowlers 05/31/24 07:41 Pulse Oximetry 97 05/31/24 07:41 Oxygen Delivery Method Room Air 05/31/24 07:41 Vital Signs Temperature 99.0 F 05/31/24 07:41 Pulse Rate 76 05/31/24 07:41 Respiratory Rate 18 05/31/24 07:41 Blood Pressure 190/88 H 05/31/24 07:41 Pulse Oximetry 97 05/31/24 07:41 Oxygen Delivery Method Room Air 05/31/24 07:41 Temperature 98.3 F 06/01/24 11:30 Pulse Rate 68 06/01/24 11:30 Respiratory Rate 16 06/01/24 11:30 Blood Pressure 167/82 H 06/01/24 11:30 Pulse Oximetry 98 06/01/24 11:30 Oxygen Delivery Method Room Air 06/01/24 11:30 <Isa Hayes MD - Last Filed: 06/05/24 00:03> Initial Vital Signs Temperature 99.0 F 05/31/24 07:41 Temperature Source Temporal Artery Scan 05/31/24 07:41 Pulse Rate 76 05/31/24 07:41 Pulse Rhythm Regular 05/31/24 07:41 Pulse Strength 3+ Normal 05/31/24 07:41 Respiratory Rate 18 05/31/24 07:41 Blood Pressure 190/88 H 05/31/24 07:41 Blood Pressure Mean 122 H 05/31/24 07:41 Blood Pressure Position Semi-Fowlers 05/31/24 07:41 Pulse Oximetry 97 05/31/24 07:41 Oxygen Delivery Method Room Air 05/31/24 07:41 Vital Signs Temperature 99.0 F 05/31/24 07:41 Pulse Rate 76 05/31/24 07:41 Respiratory Rate 18 05/31/24 07:41 Blood Pressure 190/88 H 05/31/24 07:41 Pulse Oximetry 97 05/31/24 07:41 Oxygen Delivery Method Room Air 05/31/24 07:41 Temperature 98.3 F 06/01/24 11:30 Pulse Rate 68 06/01/24 11:30 Respiratory Rate 16 06/01/24 11:30 Blood Pressure 167/82 H 06/01/24 11:30 Pulse Oximetry 98 06/01/24 11:30 Oxygen Delivery Method Room Air 06/01/24 11:30 <Krystyna Kelsey MD - Last Filed: 05/31/24 11:33> Medications Administered Medications: Discontinued Medications Generic Name Dose Route Start Last Admin Trade Name Freq PRN Reason Stop Dose Admin Cephalexin HCl 500 mg 05/31/24 10:58 05/31/24 11:18 Cephalexin 500 Mg Capsule PO 05/31/24 10:59 500 mg ONCE ONE Administration Ciprofloxacin 500 mg 05/31/24 13:15 06/01/24 08:59 Ciprofloxacin 500 Mg Tablet PO 06/05/24 13:14 500 mg BID KRISH Administration Sodium Chloride 5 ml 05/31/24 21:00 06/01/24 08:59 Sodium Chloride 0.9 % (Flush) 10 Ml Syringe IVF Not Given BID KRISH <Isa Hayes MD - Last Filed: 06/05/24 00:03> Discontinued Medications Generic Name Dose Route Start Last Admin Trade Name Freq PRN Reason Stop Dose Admin Cephalexin HCl 500 mg 05/31/24 10:58 05/31/24 11:18 Cephalexin 500 Mg Capsule PO 05/31/24 10:59 500 mg ONCE ONE Administration Ciprofloxacin 500 mg 05/31/24 13:15 06/01/24 08:59 Ciprofloxacin 500 Mg Tablet PO 06/05/24 13:14 500 mg BID KRISH Administration Sodium Chloride 5 ml 05/31/24 21:00 06/01/24 08:59 Sodium Chloride 0.9 % (Flush) 10 Ml Syringe IVF Not Given BID KRISH <Krystyna Kelsey MD - Last Filed: 05/31/24 11:33> Medical Decision Making Lab Data Lab results reviewed: Yes I reviewed the patient's lab results <Krystyna Kelsey MD - Last Filed: 05/31/24 11:33> Labs: Lab Results 05/31/24 05/31/24 05/31/24 Range/Units 07:40 08:20 09:27 WBC 3.80 L (4.50-11.00) K/uL RBC 4.88 (4.30-5.90) m/uL Hgb 14.6 (13.5-17.5) gm/dL Hct 45.2 (37.0-53.0) % MCV 93 (80-100) fL MCH 30 (26-34) pg MCHC 32 (32-36) gm/dL RDW Coeff of Scott 14.3 (11.5-15.5) % Plt Count 169 (140-440) K/uL Neut % (Auto) 66.5 (42.0-72.0) % Lymph % (Auto) 19.2 L (20-44) % [place] % (Auto) 12.6 H (0.0-11.0) % Eos % (Auto) 0.3 (0.0-7.0) % Baso % (Auto) 0.3 (0.0-3.0) % Neut # (Auto) 2.50 (1.7-7.0) K/uL Lymph # (Auto) 0.70 L (0.90-2.90) K/uL [place] # (Auto) 0.50 (0.00-0.90) K/UL Eos # (Auto) 0.00 (0.00-0.50) K/uL Baso # (Auto) 0.00 (0.00-0.30) K/uL Abs Immat Gran (auto) 0.00 (0.00-0.30) K/uL Imm/Tot Granulo (auto) 1.1 % Sodium 140 (135-149) mmol/L Potassium 3.8 (3.6-5.1) mmol/L Chloride 107 (96-114) mmol/L Carbon Dioxide 28 (20-32) mmol/L Anion Gap 5 L (7-15) mEq/L BUN 26 (7-30) mg/dL Creatinine 0.9 (0.5-1.5) mg/dL Estimated GFR 86 ml/min Glucose 104 (60-115) mg/dL Lactate 0.9 (0.5-1.9) mmol/L Calcium 8.8 (8.4-10.6) mg/dL Urine Color Yellow (Yellow) Urine Appearance Cloudy A (Clear) Urine pH 6.0 (5.0-8.5) Ur Specific [place] 1.020 (1.000-1.030) Urine Protein Negative (Negative) Urine Glucose (UA) Negative (Negative) Urine Ketones Negative (Negative) Urine Blood 2+ A (Negative) Urine Nitrite Positive A (Negative) Urine Bilirubin Negative (Negative) Urine Urobilinogen 0.2 (0.2-1.0) Ur Leukocyte Esterase Trace A (Negative) Urine RBC 10-25 A (0-2) Urine WBC 25-50 A (0-5) Ur Squamous Epith Cells Few (None-Few) Urine Bacteria Many A (None) Urine Opiates Screen Negative (Negative) Ur Oxycodone Screen Negative (Negative) Urine Methadone Screen Negative (Negative) Ur Barbiturates Screen Negative (Negative) U Tricyclic Antidepress Negative (Negative) Ur Phencyclidine Scrn Negative (Negative) Ur Amphetamines Screen Negative (Negative) U Methamphetamines Scrn Negative (Negative) U Benzodiazepines Scrn Negative (Negative) Urine Cocaine Screen Negative (Negative) U Marijuana (THC) Screen Negative (Negative) Ur Drug Screen Comment See Note Ethyl Alcohol < 0.00 L (0.01-0.03) % SARS-CoV-2 (PCR) Negative SARS-CoV-2 (Negative) Influenza Type A (PCR) Negative PCR FLU A (Negative) Influenza Type B (PCR) Negative PCR FLU B (Negative) RSV (PCR) Negative PCR RSV (Negative) POC Troponin I 0.00 L (0.01-0.04) ng/ml <Isa Hayes MD - Last Filed: 06/05/24 00:03> Lab Results 05/31/24 05/31/24 05/31/24 Range/Units 07:40 08:20 09:27 WBC 3.80 L (4.50-11.00) K/uL RBC 4.88 (4.30-5.90) m/uL Hgb 14.6 (13.5-17.5) gm/dL Hct 45.2 (37.0-53.0) % MCV 93 (80-100) fL MCH 30 (26-34) pg MCHC 32 (32-36) gm/dL RDW Coeff of Scott 14.3 (11.5-15.5) % Plt Count 169 (140-440) K/uL Neut % (Auto) 66.5 (42.0-72.0) % Lymph % (Auto) 19.2 L (20-44) % [place] % (Auto) 12.6 H (0.0-11.0) % Eos % (Auto) 0.3 (0.0-7.0) % Baso % (Auto) 0.3 (0.0-3.0) % Neut # (Auto) 2.50 (1.7-7.0) K/uL Lymph # (Auto) 0.70 L (0.90-2.90) K/uL [place] # (Auto) 0.50 (0.00-0.90) K/UL Eos # (Auto) 0.00 (0.00-0.50) K/uL Baso # (Auto) 0.00 (0.00-0.30) K/uL Abs Immat Gran (auto) 0.00 (0.00-0.30) K/uL Imm/Tot Granulo (auto) 1.1 % Sodium 140 (135-149) mmol/L Potassium 3.8 (3.6-5.1) mmol/L Chloride 107 (96-114) mmol/L Carbon Dioxide 28 (20-32) mmol/L Anion Gap 5 L (7-15) mEq/L BUN 26 (7-30) mg/dL Creatinine 0.9 (0.5-1.5) mg/dL Estimated GFR 86 ml/min Glucose 104 (60-115) mg/dL Lactate 0.9 (0.5-1.9) mmol/L Calcium 8.8 (8.4-10.6) mg/dL Urine Color Yellow (Yellow) Urine Appearance Cloudy A (Clear) Urine pH 6.0 (5.0-8.5) Ur Specific [place] 1.020 (1.000-1.030) Urine Protein Negative (Negative) Urine Glucose (UA) Negative (Negative) Urine Ketones Negative (Negative) Urine Blood 2+ A (Negative) Urine Nitrite Positive A (Negative) Urine Bilirubin Negative (Negative) Urine Urobilinogen 0.2 (0.2-1.0) Ur Leukocyte Esterase Trace A (Negative) Urine RBC 10-25 A (0-2) Urine WBC 25-50 A (0-5) Ur Squamous Epith Cells Few (None-Few) Urine Bacteria Many A (None) Urine Opiates Screen Negative (Negative) Ur Oxycodone Screen Negative (Negative) Urine Methadone Screen Negative (Negative) Ur Barbiturates Screen Negative (Negative) U Tricyclic Antidepress Negative (Negative) Ur Phencyclidine Scrn Negative (Negative) Ur Amphetamines Screen Negative (Negative) U Methamphetamines Scrn Negative (Negative) U Benzodiazepines Scrn Negative (Negative) Urine Cocaine Screen Negative (Negative) U Marijuana (THC) Screen Negative (Negative) Ur Drug Screen Comment See Note Ethyl Alcohol < 0.00 L (0.01-0.03) % SARS-CoV-2 (PCR) Negative SARS-CoV-2 (Negative) Influenza Type A (PCR) Negative PCR FLU A (Negative) Influenza Type B (PCR) Negative PCR FLU B (Negative) RSV (PCR) Negative PCR RSV (Negative) POC Troponin I 0.00 L (0.01-0.04) ng/ml <Krystyna Kelsey MD - Last Filed: 05/31/24 11:33> Discharge Plan Discharge Clinical Impression: Urinary tract infection Qualifiers: Urinary tract infection type: acute cystitis Hematuria presence: without hem aturia Qualified Code(s): N30.00 - Acute cystitis without hematuria Dementia Qualifiers: Dementia type: unspecified type Dementia severity: unspecified severity Dementia behavioral or psychological symptom: with other behavioral disturbance Qualified Code(s): F03.918 - Unspecified dementia, unspecified severity, with other behavioral disturbance <Isa Hayes MD - Last Filed: 06/05/24 00:03> Patient Disposition: Admitted As Observation <Isa Hayes MD - Last Filed: 06/05/24 00:03> Condition: Stable <Isa Hayes MD - Last Filed: 06/05/24 00:03> Activity Level: No Restrictions <Isa Hayes MD - Last Filed: 06/05/24 00:03> No Restrictions <Krystyna Kelsey MD - Last Filed: 05/31/24 11:33> Discharge Diet: Regular <Isa Hayes MD - Last Filed: 06/05/24 00:03> Regular <Krystyna Kelsey MD - Last Filed: 05/31/24 11:33>
--- OUTSIDE RECORDS SUMMARY | 2024-05-31 08:04 | XMS_ITS | Encounter Summary ---
Author Name [facility] [facility] [place] [facility] [place] Address [address], [place] [address] Care Team Providers Care Head Trimmer Name Role Phone ROMANA GOLDSTEIN Primary Care [...] PART A Jul 21, 2007 PART A [id number] [phone] PRATEEK COHN PATIENT Selected Encounter This section [...] 29, 2023 07:00 AM AMBULATORY - NONE [facility] Jan 11, 2024 01:00 PM AMBULATORY - MEDICINE [place] ([facility]) Jan 11, 2024 02:30 PM AMBULATORY - PS[facility]CHIATRY [place] ([facility]) Jan 25, 2024 11:44 AM AMBULATORY - NONE [facility] Jan 31, 2024 09:00 AM AMBULATORY - PS[place]CHIATRY [place] ([facility]) Jan 31, 2024 09:01 AM AMBULATORY - [place] [facility] Mar 23, 2024 01:01 PM AMBULATORY - NONE [facility] Social History: Smoking Status (Most current) [...] 09:18 AM SOCIAL WORK NOTE: LOCAL TITLE: BEN SOCIAL WORK PROGRESS NOTE STANDARD TITLE: SOCIAL WORK NOTE DATE OF NOTE: DEC 06, 2023@09:18 ENTRY DATE: DEC 06, 2023@09:18:59 AUTHOR: ELLEN CRAIG COSIGNER: URGENCY: STATUS: COMPLETED BEN SOCIAL WORK PROGRESS NOTE Has ADDENDA PCSW received a voicemail from [facility] - Karoline requesting return call regarding home care and fci care as Emili is currently in hospital looking to discharge soon. This designer writer placed return call [facility] Karoline on this day (12/06/23) at [phone] and left a HIPPA compliant message on an unidentified voicemail introducing myself, the clinic I was calling with and requested a return call to my direct line at [phone], awaiting return call. /es/ Ellen Craig SLIP CASTER Primary Care Hole Digger Signed: 12/06/2023 09:19 12/06/2023 ADDENDUM STATUS: COMPLETED PCSW received a return call from [facility] Kenny on this day (12/06/23) and spoke with her regarding bringing Augusta home after rehab. is currently in the hospital and will discharge to a intermediate facility for short term rehab. Family is hoping to bring him home once rehab is complete. Account Underwriter discussed the following options with : - Home care- is a [employer] by background and would like to renew her license and asked about getting paid to care for him. Account Underwriter stated she could become employed with the home care agency and they would pay her but A would not pay her directly, she voiced understanding. - Respite- verbalized understanding that this is available to her. - DME such as hospital beds, ramps and other items. is aware to contact designer writer once needs are known after rehab, she verbalized understanding to call. also stated that her son and daughter in law are discussing moving her and Augusta down to them in [place] and inquired about A benefits down there. Account Underwriter stated that a lot of our programs are federal benefits so I would think so, but we could look into that more at the time, Kenny verbalized understanding. Kenny had no further questions at the time of visit. Kenny confirmed she has designer writer direct line and will call with any questions. PCSW to remain available. /dexter/ ADELSO Sandoval Primary Care Hole Digger Signed: 12/06/2023 15:52 ELLEN CRAIG ([facility])
--- OUTSIDE RECORDS SUMMARY | 2024-05-31 08:04 | XMS_ITS | Encounter Summary ---
Author Name [facility] [facility] [place] [facility] [place] Address [address], [place] [address] Care Team Providers Care Spanish Medical Interpreter Name Role Phone ROMANA GOLDSTEIN Primary Care [...] PART A Jul 21, 2007 PART A [id number] [phone] PRATEEK COHN PATIENT Selected Encounter This section includes the information on record at [place] for the Encounter. Date/Time Encounter Type Encounter Description Reason Pro vider Source Sep 21, 2023 09:04 AM Outpatient Encounter EVENT (HISTORICAL) IHE Encounter Template Text not used by [place] Plan of Treatment: Future Appointments (+ 6 [...] 2023 09:30 AM AM[facility]ONE [place] [facility] Dec 29, 2023 07:00 [facility] Jan 11, 2024 01:00 PM AMBULATORY - MEDICINE [facility] ([facility] Jan 11, 2024 02:30 PM AMBULATORY - PS[facility]CHIATRY [facility] ([facility]) Jan 25, 2024 11:44 AM AM[facility]ATORY - NONE [place] [facility] Jan 31, 2024 09:00 AM AMBULATORY - PS[facility]CHIATRY [facility] [place] ([facility]) Jan 31, 2024 09:01 AM AMBULATORY [place] [facility] Social History: [...]
--- OUTSIDE RECORDS SUMMARY | 2024-05-31 08:04 | XMS_ITS | Encounter Summary ---
Author Name [facility] [place] [facility] [place] [facility] [place] Address [address], [place] [address] Care Team Providers Care Technical Manager Name Role Phone ROMANA GOLDSTEIN Primary [...] PART A Jul 21, 2007 PART A [id number] [phone] PRATEEK COHN PATIENT Selected Encounter This section [...] 2023 07:00 AM AMBULATORY - NONE [facility] Jan 11, 2024 01:00 PM AMBULATORY - MEDICINE [place] [facility] ([facility]) Jan 11, 2024 02:30 PM AMBULATORY - PS[facility]CHIATRY [place] ([facility]) Jan 25, 2024 11:44 [facility] Jan 31, 2024 09:00 AM AMBULATORY - PSYCHIATRY [place] ([facility]) Jan 31, 2024 09:01 AM AMBULATORY - [place]ATRY [place] [facility] Mar 23, 2024 01:01 PM AMBULATORY - NONE [facility] Social History: Smoking Status (Most current) and [...] FORMER TOBACCO USER 7Y OR GREATE R [facility] Aug 10, 2016 09:08 AM LIFETIME NON-TOBACCO USER [facility] Sep 06, 2014 08:19 AM FORMER TOBACCO USER 7Y OR GREATE R [facility] Dec 09, 2011 01:28 PM FORMER TOBACCO USER 7Y OR GREATE R [facility] Encounter Notes: All [...] ADDENDA PCSW received a fax from the [facility] Safety Grooving Machine Operator requesting informaiton on Veterans short term rehab benefits through the [facility]. This insurance underwriter sales placed return call to [facility] Safety Grooving Machine Operator on this day (12/02/23) at [phone] and spoke with her. Product Expert informed her that [facility] does not have short term rehab benefits or terminal operations manager benefits unless he is on hospice and would need to utilize Medicare for rehab if he had it, she verbalized understanding. Romana stated she would follow up with regarding this information. PCSW also had a message from Brooke Zhou asking about POA information. This insurance underwriter sales did not find an DEJAN on file nor was she listed on the facesheet. Product Expert called number provided ([phone]) and was unable to leave a message as the mailbox was full. Product Expert also attempted to reach - Kenny regarding the POA information and left a HIPPA complaint message on an identified voicemail introducing myself, the clinic I was calling with and requested a return call to my direct line at [phone], awaiting return call. /dexter/ ADELSO Sandoval Primary Care Safety Grooving Machine Operator Signed: 12/02/2023 11:45 12/02/2023 ADDENDUM STATUS: COMPLETED Product Expert received a call back from [facility] stated that they did not call about POA information and do not have any family with the name Brooke. Product Expert reviewed with [facility] and message was entered in correctly on the PCSW call list. Product Expert call and provided reassurance that it was entered incorrectly and no information was provided to the other person. PCS to remain available. /dexter/ ADELSO Sandoval Primary Care Safety Grooving Machine Operator Signed: 12/02/2023 12:04 ELLEN LEON ([facility])
--- OUTSIDE RECORDS SUMMARY | 2024-05-31 08:04 | XMS_ITS | Encounter Summary ---
Author Name [facility] [place] [facility] [place] [facility] [place] Address [address], [place] [address] Care Team Providers Care Chief Innovation Officer Name Role Phone ROMANA GOLDSTEIN Primary Care [...] PART A Jul 21, 2007 PART A [id number] [phone] PRATEEK GRAYSON PATIENT Selected Encounter This section includes the information on record at [place] for the Encounter. Date/Time Encounter Type Encounter Description Reason Provider Source Dec 01, 2023 09:30 AM Outpatient Encounter ADMIN PAT ACTIVTIES (VINNIENONCT) OZIEL ESPINOSA Tiny Encounter Template Text not used by [place] [...] 29, 2023 07:00 AM AMBULATORY - NONE [facility] Jan 11, 2024 01:00 PM AMBULATORY - MEDICINE [facility] ([facility]) Jan 11, 2024 02:30 PM AMBULATORY - PSYCHIATRY [facility] ([facility]) Jan 25, 2024 11:44 AM AMBULATORY - NONE [facility] Jan 31, 2024 09:00 AM AMBULATORY - PSYCHIATRY [facility] ([facility]) Jan 31, 2024 09:01 AM AMBULATORY - PS[facility]RY [facility] Mar 23, 2024 01:01 PM AMBULATORY - NONE [facility] Social History: Smoking Status (Most [...] the Encounter. Date/Time Encounter Note(s) Provider Source Feb 07, 2024 12:44 PM ADDENDUM: LOCAL TITLE: Addendum STANDARD TITLE: ADDENDUM DATE OF NOTE: FEB 07, 2024@12:44:37 ENTRY DATE: FEB 07, 2024@12:44:38 AUTHOR: LALITA HERNANDEZ COSIGNER: URGENCY: STATUS: COMPLETED Joanne from vendor at [facility] called to see if a consult has been placed for covered care for Georgie for admit on 11/23/23-11/27/23 for inpatient stay . Alerting SS RN for review Joanne can be reached at [phone] direct. /es/ LALITA FREED Signed: 02/07/2024 12:47 Receipt Acknowledged By: 02/08/2024 11:46 /es/ Oziel Espinosa MA, PHN, RN-BC processing manager Boiler Inspector --- Original Document --- 11/23/23 [facility] PRESENTING CARE COORD PLAN NOTE: Emergency Notification Intake Date Presenting to the Facility: Nov Method of Contact: Notified from Veotag worklist Notification ID: [id number] [facility] Referral #: [facility]: Hospital: [facility], Address: City: [place], State: [place] Zip Code: Phone : [facility] Facility Point of Contact: Name: GABRIELLE Chief complaint: D649 - Anemia, unspecified Primary Diagnosis: Disposition Admitted Route of Admission: Date of Admission: Nov Admitting Diagnosis: D649 - Anemia, unspecified Community Care Provider: Confirm Level of Care: Notify - Submit for /es/ CORI DEAN CHIEF CLOTH FINISHING RANGE OPERATOR Signed: 12/01/2023 09:35 Receipt Acknowledged By: 12/01/2023 16:43 /es/ Oziel Espinosa MA, PHN, RN-BC processing manager Boiler Inspector 12/01/2023 ADDENDUM STATUS: COMPLETED Hospital Admission Care Coordination Note. Admitted to: [facility] Admission date: 11/23/23 Chief Complaint/Dx: Fracture Ilium Closed Initial Left Level of Care: Critical; 11/27/23 Transferred to Acute Medical Records uploaded by ZAID FREED to [facility] via [employer]. Records also available for viewing in JLV within the Imaging and Community Health Summaries and Documents widgets. Discharge Summary will be uploaded into the [facility] medical record when available. Although appears medically stable for transfer via chart review,neither the patient, nor the patient's registered representative have requested transfer to the [facility], nor are there any beds available at the [facility] for the level of care required. /es/ Oziel Espinosa MA, PHN, RN-BC processing manager Boiler Inspector Signed: 12/01/2023 17:27 Receipt Acknowledged By: 12/02/2023 11:22 /es/ Naveed Cash RN [facility] for DANA AGUIRRE 11/23/2023 ADDENDUM STATUS: COMPLETED VistA Imaging Scanned Document - Addendum. [facility], 11-23-23 ED Notes & 11-25-23 Operative Note. SCANNED DOCUMENT SIGNATURE NOT REQUIRED Electronically Filed: 12/01/2023 by: Oziel Espinosa MA, TURNER, RN-BC processing manager Boiler Inspector 12/02/2023 ADDENDUM STATUS: COMPLETED Phoned . Spoke with MEGAN Trevizo. DEJAN verified. -[place] is still admitted to [facility] -Current plan is to discharge to [facility] for short term rehab -had the understanding that had authorization for out of network rehab. Was told by [facility] -Laundry Routeman informed Karoline there is no record of authorization, but would forward to to review. See Nov 29 CCC:Scheduling note for more information. -Unaware of any f/u needs at this time. -Discussed that any f/u recommended after discharge from Short Term rehab would need a prior authorization -[facility] is not an in-network facility ADDITIONAL [...] be driving and veterans decision making capabilities. -Laundry Routeman explained has not seen current provider. It would be best to have an appointment after discharge to discuss memory concerns and evaluations. PCP would not be able to write a letter stating has Alzheimers without an evaluation. PLAN: -SW has been alerted to short term rehab concerns -[place] and/or SO will reach out to [facility] when is discharging from Rehab to discuss f/u needs and scheduling an appt with PCP. -No other current needs from [facility] at this time. -PCP alerted as FYI for f/u and plan Phone call: 14 min /dexter/ Naveed Cash RN [facility] Signed: 12/02/2023 11:38 Receipt Acknowledged By: 12/02/2023 11:42 /es/ Romana Goldstein APRN, CNP 12/06/2023 ADDENDUM STATUS: COMPLETED CONTINUED STAY REVIEW Contact Date: 12/06/23 Date of Admission: 11/23/23 Current Length of Stay: 13 days Method of Contact: Other: [facility] Inpatient level of care required: Critical; 11/27/23 [...] vein - Discussed with Dr. Khan (trauma coding consultant on 12/04) & due to the [...] #9 Fracture Acetabulum Other Closed Initial Left ([facility]) #10 Fracture Pelvis Multiple Closed With Stable Disruption Pelvis Ring Initial ([facility]) #11 Fracture Ilium Closed Initial Left ([facility]) Multiple comminuted fractures of the left [...] page the Trauma Service at Addendum @ 0955: Spoke to Mrs. Grayson this afternoon about [...] review, neither the patient, nor the patient's registered representative have requested transfer to the [facility], nor are there any beds available at the [facility] for the level of care required. /dexter/ Oziel Espinosa MA, PHN, RN- processing manager Boiler Inspector Signed: 12/06/2023 09:34 12/09/2023 ADDENDUM STATUS: COMPLETED CONTINUED STAY REVIEW Contact Date: 12/09/23 Date of Admission: 11/23/23 Current Length of Stay: 16 days Method of Contact: Other: [facility] Inpatient level of care required: Critical; 11/27/23 Transferred to Acute Trauma Critical Care and General Surgery note dated, 12/08/23: ASSESSMENT / PLAN Mr. Grayson is hospitalized on [facility] Trauma for evaluation and management of: Fracture Ilium Closed Initial Left (HCC). 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 Comorbidities include (collateral received from Mikayla- [...] sleep enhancement General delirium prevention/management strategies: Minimize RESEARCH LABORATORY MANAGER-acting medications. Increase mobility to match ability. Frequent reorientation. Provide moderate level of social and cognitive stimulation. Treat dehydration and constipation. Nonpharmacologic sleep promotion strategies. The above plan of care was discussed with Dr. Coello, HIM coding consultant. I personally spent a total of 35 minutes providing and coordinating care today. Thank you for the opportunity to care for this patient. We will continue to follow with you. Please page the Geriatrics Consult Service at [phone] with any questions or concerns. Although appears medically stable for transfer via chart review, neither the patient, nor the patient's registered representative have requested transfer to the [facility], nor are there any beds available at the [facility] for the level of care required. /dexter/ Oziel Espinosa MA, PHN, RN-BC processing manager Boiler Inspector Signed: 12/09/2023 13:44 12/16/2023 ADDENDUM STATUS: COMPLETED CONTINUED STAY REVIEW Contact Date: 12/16/23 Date of Admission: 11/23/23 Current Length of Stay: 23 days Method of Contact: Other: [facility] Inpatient level of care required: Critical; 11/27/23 Transferred to Acute Trauma Critical Care and General Surgery note dated, 12/15/23: ASSESSMENT / PLAN Currently assessing for placement versus ongoing with family at assistive devices provided by [place]. Mechanism of Injury: Fell from a 6 [...] - No follow up required in the [facility] clinic for the one rib fracture #9 Fracture Acetabulum Other Closed Initial Left ([facility]) #10 Fracture Pelvis Multiple Closed With Stable Disruption Pelvis Ring Initial ([facility]) #11 Fracture Ilium Closed Initial Left ([facility]) Multiple comminuted fractures of the left [...] contact the Trauma service with questions at [phone]. Although appears medically stable for transfer via chart review, neither the patient, nor the patient's registered representative have requested transfer to the [facility], nor are there any beds available at the [facility] for the level of care required. 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 His has declined ehrman placement given delirium and has elected to [...] at this time Please page trauma at [phone] with any questions regarding the care of this patient. Thanks. Cosigned by: Alexandra Varela M.D. at 12/20/2023 2:17 PM Although appears medically stable for transfer via chart review, neither the patient, nor the patient's registered representative have requested transfer to the [facility], nor are there any beds available at the [facility] for the level of care required. /dexter/ Oizel Espinosa MA, PHN, RN-BC processing manager Boiler Inspector Signed: 12/21/2023 09:01 12/26/2023 ADDENDUM STATUS: COMPLETED CONTINUED STAY REVIEW Contact Date: 12/26/23 Date of Admission: 11/23/23 Current Length of Stay: 33 days Method of Contact: Other: [facility] Inpatient level of care required: Critical; 11/27/23 [...] review, neither the patient, nor the patient's registered representative have requested transfer to the [facility], nor are there any beds available at the [facility] for the level of care required. CARMELINA=12-27-23 /es/ Oziel Espinosa MA, PHN, RN-BC processing manager Boiler Inspector Signed: 12/26/2023 12:23 12/27/2023 ADDENDUM STATUS: COMPLETED HOSPITAL DISCHARGE CARE COORDINATION NOTE Hospital Name: [facility] Admit date: 11/23/23 Discharge date: 12/27/23 Level of Care: Critical Primary Diagnosis: Fracture Ilium Closed Initial Left Discharge Disposition: Home-Health Care [facility] Discharge provider recommends and notes the following: REASON FOR ADMISSION Anemia Contusion Buttock Initial Subarachnoid Hemorrhage With Loss Of Conscious Initial (HCC) Fracture Acetabulum Closed Initial Left (HCC) Fracture Ilium Closed Initial Left (HCC) History Of Falling Other Shock (Hemorrhagic Shock) ([facility]) Retroperitoneal Hematoma HOSPITAL COURSE #1 Status post Fall 6 feet from Ladder Mr. Grayson was transported to [facility] as a level red trauma for [...] touchdown weight-bearing to the left lower extremity. [place] were removed at surgical site on 12/15. [...] discharge home with home health care services (fdc, health aide, PT/OT). Services, equipment, and adaptations [...] and either have them pushed to the [facility] or sent to Dr. Higuera's team via disc for review. You will be scheduled for an in person follow up visit at 12 weeks post surgery with repeat imaging at which time advancement to your weight bearing will be discussed. Please contact Dr. Higuera's team with any questions regarding follow up plan at [phone]. NO FOLLOW UP REQUIRED WITH TRAUMA-CRITICAL CARE-GENERAL SURGERY (TCGS): You do not require a follow up appointment at this time. If you are having difficulty, have questions or would like to be seen in follow-up, please call to make an appointment at [phone]. If you need to reach a provider on the TCGS service after hours, you may call the [facility] offset press operator at and ask to speak the provider continuous churn buttermaker for the Trauma-Critical Care-General Surgery (TCGS) Service. If you have forms that need addressed by the surgery team or outside records that need to be uploaded, please email them to [email or web address] or fax them at [phone]. Issue: Follow up with pelvis x-rays What is Needed: pelvis x-rays Follow-up Appointments Arranged: No, but orders provided to family to have them done at a convenient clinic Rody Arriaga APRN, C.N.P., D.N.P. Please review the Discharge Summary for details of the care rendered, as well as any necessary or recommended follow up care the patient may require. Hospital records uploaded to [employer]Picker via [employer]. Records also available to view in [employer] within the Imaging and Community Health Summaries and Documents widgets. /dexter/ Oziel Espinosa MA, PHN, RN-BC processing manager Boiler Inspector Signed: 12/27/2023 14:44 Receipt Acknowledged By: 12/29/2023 08:49 /es/ Garrett Browning RN [facility] for DANA AGUIRRE 12/28/2023 12:07 /es/ Romana Goldstein APRN, CNP 12/27/2023 ADDENDUM STATUS: COMPLETED VistA Imaging Scanned Document - Addendum. [facility] 12-27-23 Hospital DC Summary. SCANNED DOCUMENT SIGNATURE NOT REQUIRED Electronically Filed: 12/27/2023 by: Oziel Espinosa MA, PHN, RN-BC processing manager Boiler Inspector 12/29/2023 ADDENDUM STATUS: COMPLETED RTC placed/AMSAs notified for hospital f/u with PCP. /dexter/ Garrett Browning RN [facility] Signed: 12/29/2023 08:50 02/08/2024 ADDENDUM STATUS: COMPLETED I was alerted to the preceding addendum: Joanne from vendor at [facility] called to see if a consult has been placed for covered care for Georgie for admit on 11/23/23-11/27/23 for inpatient stay . Alerting RN for review Joanne can be reached at [phone] direct. LALITA HERNANDEZ 02/07/2024 12:47 I contacted Joanne who indicated that their billing was rejected. I asked her what authorization number was listed and she provided the Notification ID number. I suggested she list the [facility] number: [id number] instead. She verified she did not have that number and stated she will resubmit with this number. The call ended amicably. /dexter/ Oziel Espinosa MA, PHN, RN-BC processing manager Boiler Inspector Signed: 02/08/2024 11:45 LALITA HERNANDEZ [facility] Dec 27, 2023 02:37 PM ADDENDUM: LOCAL TITLE: Addendum STANDARD TITLE: ADDENDUM DATE OF NOTE: DEC 27, 2023@14:37 ENTRY DATE: DEC 27, 2023@14:37:01 AUTHOR: OZIEL ESPINOSA EXP COSIGNER: URGENCY: STATUS: COMPLETED HOSPITAL DISCHARGE CARE COORDINATION NOTE Hospital Name: [facility] Admit date: 11/23/23 Discharge date: 12/27/23 Level of Care: Critical Primary Diagnosis: Fracture Ilium Closed Initial Left Discharge Disposition: Home-Health Care [facility] Discharge provider recommends and notes the following: REASON FOR ADMISSION Anemia Contusion Buttock Initial Subarachnoid Hemorrhage With Loss Of Conscious Initial (HCC) Fracture Acetabulum Closed Initial Left (HCC) Fracture Ilium Closed Initial Left (HCC) History Of Falling Other Shock (Hemorrhagic Shock) (HCC) Retroperitoneal Hematoma HOSPITAL COURSE #1 Status post Fall 6 feet from Ladder Mr. Grayson was transported to [facility] as a level red trauma for [...] (HCC) #9 Fracture Ilium Closed Initial Left ([facility]) Multiple comminuted fractures of left anterior and posterior pubic rami, acetabulum, iliac wing extending to involve the left sacroiliac joint Orthopedic Trauma Service was consulted (Dr. Dietrich's OTS 4). Traction pin was placed and he was taken to the operating room on 11/24 for ORIF of the acetabulum. Weightbearing restrictions include touchdown weight-bearing to the left lower extremity. [place] were removed at surgical site on 12/15. [...] discharge home with home health care services (fdc, health aide, PT/OT). Services, equipment, and adaptations [...] and either have them pushed to the [facility] or sent to Dr. Higuera's team via disc for review. You will be scheduled for an in person follow up visit at 12 weeks post surgery with repeat imaging at which time advancement to your weight bearing will be discussed. Please contact Dr. Higuera's team with any questions regarding follow up plan at [phone]. NO FOLLOW UP REQUIRED WITH TRAUMA-CRITICAL CARE-GENERAL SURGERY (TCGS): You do not require a follow up appointment at this time. If you are having difficulty, have questions or would like to be seen in follow-up, please call to make an appointment at [phone]. If you need to reach a provider on the TCGS service after hours, you may call the [facility] offset press operator at and ask to speak the provider continuous churn buttermaker for the Trauma-Critical Care-General Surgery (TCGS) Service. If you have forms that need addressed by the surgery team or outside records that need to be uploaded, please email them to [email or web address] or fax them at [phone]. Issue: Follow up with pelvis x-rays What is Needed: pelvis x-rays Follow-up Appointments Arranged: No, but orders provided to family to have them done at a convenient clinic Rody Arriaga APRN, C.N.P., D.N.P. Please review the Discharge Summary for details of the care rendered, as well as any necessary or recommended follow up care the patient may require. Hospital records uploaded to [employer]Picker via [employer]. Records also available to view in [employer] within the Imaging and Community Health Summaries and Documents widgets. /dexter/ Oziel Epsinosa MA, PHN, RN-BC processing manager Boiler Inspector Signed: 12/27/2023 14:44 Receipt Acknowledged By: 12/29/2023 08:49 /dexter/ Garrett Browning RN [facility] for DANA BARROWS 12/28/2023 12:07 /es/ Romana Goldstein APRN, CNP --- Original Document --- 11/23/23 [facility]UNITY [facility] PRESENTING CARE COORD PLAN NOTE: Emergency Notification Intake Date Presenting to the Facility: Nov Method of Contact: Notified from Veotag worklist Notification ID: [id number] [facility] Referral #: [facility] Name: Hospital: [facility], Address: City: [place], State: [place] Zip Code: Phone : [facility] Facility Point of Contact: Name: GABRIELLE Chief complaint: D649 - Anemia, unspecified Primary Diagnosis: Disposition Admitted Route of Admission: Date of Admission: Nov Admitting Diagnosis: D649 - Anemia, unspecified Community Care Provider: Confirm Level of Care: Notify - Submit for /dexter/ CORI DEAN CHIEF CLOTH FINISHING RANGE OPERATOR Signed: 12/01/2023 09:35 Receipt Acknowledged By: 12/01/2023 16:43 /es/ Oziel Espinosa MA, PHN, RN-BC processing manager Boiler Inspector 12/01/2023 ADDENDUM STATUS: COMPLETED Hospital Admission Care Coordination Note. Admitted to: [facility] Admission date: 11/23/23 Chief Complaint/Dx: Fracture Ilium Closed Initial Left Level of Care: Critical; 11/27/23 Transferred to Acute Medical Records uploaded by ZAID FREED to [facility] via [employer]. Records also available for viewing in JLV within the Imaging and Community Health Summaries and Documents widgets. Discharge Summary will be uploaded into the [facility] medical record when available. Although appears medically stable for transfer via chart review,neither the patient, nor the patient's registered representative have requested transfer to the [facility], nor are there any beds available at the [facility] for the level of care required. /dexter/ Oziel Espinosa MA, PHN, RN-BC processing manager Boiler Inspector Signed: 12/01/2023 17:27 Receipt Acknowledged By: 12/02/2023 11:22 /dexter/ Naveed Cash RN [facility] for DANA AGUIRRE 11/23/2023 ADDENDUM STATUS: COMPLETED VistA Imaging Scanned Document - Addendum. [facility], 11-23-23 ED Notes & 11-25-23 Operative Note. SCANNED DOCUMENT SIGNATURE NOT REQUIRED Electronically Filed: 12/01/2023 by: Oziel Espinosa MA, PHN, RN-ALETHA processing manager Boiler Inspector 12/02/2023 ADDENDUM STATUS: COMPLETED Phoned [place]. Spoke with MEGAN Trevizo. DEJAN verified. - is still admitted to [facility] -Current plan is to discharge to [facility] for short term rehab -had the understanding that had authorization for out of network rehab. Was told by [facility] -Laundry Routeman informed Karoline there is no record of authorization, but would forward to to review. See Nov 29 CCC:Scheduling note for more information. -Unaware of any f/u needs at this time. -Discussed that any f/u recommended after discharge from Short Term rehab would need a prior authorization -[facility] is not an in-network facility ADDITIONAL [...] be driving and veterans decision making capabilities. -Laundry Routeman explained has not seen current provider. It would be best to have an appointment after discharge to discuss memory concerns and evaluations. PCP would not be able to write a letter stating has Alzheimers without an evaluation. PLAN: -SW has been alerted to short term rehab concerns -[place] and/or SO will reach out to [facility] when is discharging from Rehab to discuss f/u needs and scheduling an appt with PCP. -No other current needs from [facility] at this time. -PCP alerted as FYI for f/u and plan Phone call: 14 min /dexter/ Naveed Cash RN [facility] Signed: 12/02/2023 11:38 Receipt Acknowledged By: 12/02/2023 11:42 /es/ Romana Goldstein APRN, CNP 12/06/2023 ADDENDUM STATUS: COMPLETED CONTINUED STAY REVIEW Contact Date: 12/06/23 Date of Admission: 11/23/23 Current Length of Stay: 13 days Method of Contact: Other: [facility] Inpatient level of care required: Critical; 11/27/23 [...] vein - Discussed with Dr. Khan (trauma coding consultant on 12/04) & due to the [...] page the Trauma Service at Addendum @ [phone]: Spoke to Mrs. Grayson this afternoon about [...] review, neither the patient, nor the patient's registered representative have requested transfer to the [facility], nor are there any beds available at the [facility] for the level of care required. /dexter/ Oziel Espinosa MA, PHN, RN- processing manager Boiler Inspector Signed: 12/06/2023 09:34 12/09/2023 ADDENDUM STATUS: COMPLETED CONTINUED STAY REVIEW Contact Date: 12/09/23 Date of Admission: 11/23/23 Current Length of Stay: 16 days Method of Contact: Other: [facility] Inpatient level of care required: Critical; 11/27/23 Transferred to Acute Trauma Critical Care and General Surgery note dated, 12/08/23: ASSESSMENT / PLAN Mr. Grayson is hospitalized on [facility] Trauma for evaluation and management of: Fracture Ilium Closed Initial Left (HCC). 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 Increase mobility to match ability. Frequent reorientation. Provide moderate level of social and cognitive stimulation. Treat dehydration and constipation. Nonpharmacologic sleep promotion strategies. The above plan of care was discussed with Dr. Coello, HIM coding consultant. I personally spent a total of 35 minutes providing and coordinating care today. Thank you for the opportunity to care for this patient. We will continue to follow with you. Please page the Geriatrics Consult Service at [phone] with any questions or concerns. Although appears medically stable for transfer via chart review, neither the patient, nor the patient's registered representative have requested transfer to the [facility], nor are there any beds available at the [facility] for the level of care required. /dexter/ Oziel Espinosa MA, PHN, RN-BC processing manager Boiler Inspector Signed: 12/09/2023 13:44 12/16/2023 ADDENDUM STATUS: COMPLETED CONTINUED STAY REVIEW Contact Date: 12/16/23 Date of Admission: 11/23/23 Current Length of Stay: 23 days Method of Contact: Other: [facility] Inpatient level of care required: Critical; 11/27/23 Transferred to Acute Trauma Critical Care and General Surgery note dated, 12/15/23: ASSESSMENT / PLAN Currently assessing for placement versus ongoing with family [place] by [place]. Mechanism of Injury: Fell from a 6 [...] Closed With Stable Disruption Pelvis Ring Initial ([facility]) #11 Fracture Ilium Closed Initial Left (HCC) [...] contact the Trauma service with questions at [phone]. Although appears medically stable for transfer via chart review, neither the patient, nor the patient's registered representative have requested transfer to the [facility], nor are there any beds available at the [facility] for the level of care required. 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 Thanks. Cosigned by: Alexandra Varela M.D. at 12/20/2023 2:17 PM Although appears medically stable for transfer via chart review, neither the patient, nor the patient's registered representative have requested transfer to the [facility], nor are there any beds available at the [facility] for the level of care required. /dexter/ Oziel Espinosa MA, PHN, RN-BC processing manager Boiler Inspector Signed: 12/21/2023 09:01 12/26/2023 ADDENDUM STATUS: COMPLETED CONTINUED STAY REVIEW Contact Date: 12/26/23 Date of Admission: 11/23/23 Current Length of Stay: 33 days Method of Contact: Other: [facility] Inpatient level of care required: Critical; 11/27/23 [...] Closed With Stable Disruption Pelvis Ring Initial ([facility]) #8 Fracture Acetabulum Other Closed Initial Left ([facility]) #9 Fracture Ilium Closed Initial Left ([facility]) Multiple comminuted fractures of left anterior and posterior pubic rami, acetabulum, iliac wing extending to involve the left sacroiliac joint -S/p ORIF Acetabulum (11/25/23) -OTS-1 consult appreciated -TDWB LLE. -Patient is having difficulty with understanding WB restrictions. We will continue reminders. PMR continues to follow. He is scheduled for a follow up with Dr. Higuera on 01/04/24. -Contacted [facility] with requests to complete follow up in [...] review, neither the patient, nor the patient's registered representative have requested transfer to the [facility], nor are there any beds available at the [facility] for the level of care required. CARMELINA=12-27-23 /es/ Oziel Espinosa MA, PHN, RN-BC processing manager Boiler Inspector Signed: 12/26/2023 12:23 12/27/2023 ADDENDUM STATUS: COMPLETED [facility] Imaging Scanned Document - Addendum. [facility], 12-27-23 [facility] DC Summary. SCANNED DOCUMENT SIGNATURE NOT REQUIRED Electronically Filed: 12/27/2023 by: Oziel Espinosa MA, PHN, RN-BC processing manager Boiler Inspector 12/29/2023 ADDENDUM STATUS: COMPLETED RTC placed/AMSAs notified for hospital f/u with PCP. /es/ Garrett Browning RN [facility] Signed: 12/29/2023 08:50 OZIEL ESPINOSA [facility] Dec 02, 2023 11:23 AM ADDENDUM: LOCAL TITLE: Addendum STANDARD TITLE: ADDENDUM DATE OF NOTE: DEC 02, 2023@11:23:17 ENTRY DATE: DEC 02, 2023@11:23:18 AUTHOR: NAVEED CASH EXP COSIGNER: URGENCY: STATUS: COMPLETED Phoned [place]. Spoke with MEGAN Trevizo. DEJAN verified. -[place] is still admitted to [facility] -Current plan is to discharge to [facility] for short term rehab -had the understanding that had authorization for out of network rehab. Was told by [facility] -Laundry Routeman informed Karoline there is no record of authorization, but would forward to to review. See Nov 29 CCC:Scheduling note for more information. -Unaware of any f/u needs at this time. -Discussed that any f/u recommended after discharge from Short Term rehab would need a prior authorization -[facility] is not an in-network facility ADDITIONAL [...] be driving and veterans decision making capabilities. -Laundry Routeman explained has not seen current provider. It would be best to have an appointment after discharge to discuss memory concerns and evaluations. PCP would not be able to write a letter stating has Alzheimers without an evaluation. PLAN: -SW has been alerted to short term rehab concerns -[place] and/or SO will reach out to [facility] when is discharging from Rehab to discuss f/u needs and scheduling an appt with PCP. -No other current needs from [facility] at this time. -PCP alerted as FYI for f/u and plan Phone call: 14 min /dexter/ Naveed Cash RN [facility] Signed: 12/02/2023 11:38 Receipt Acknowledged By: 12/02/2023 11:42 /dexter/ Romana Goldstein APRN, CNP --- Original Document --- 11/23/23 [facility] SELF PRESENTING CARE COORD PLAN NOTE: Emergency Notification Intake Date Presenting to the Facility: Nov Method of Contact: Notified from Veot[employer] worklist Notification ID: [id number] [facility] Referral #: [facility]: Hospital: [facility], Address: City: [place], State: [place] Zip Code: Phone : [facility] Facility Point of Contact: Name: GABRIELLE Chief complaint: D649 - Anemia, unspecified Primary Diagnosis: Disposition Admitted Route of Admission: Date of Admission: Nov Admitting Diagnosis: D649 - Anemia, unspecified Community Care Provider: Confirm Level of Care: Notify - Submit for /dexter/ CORI DEAN CHIEF CLOTH FINISHING RANGE OPERATOR Signed: 12/01/2023 09:35 Receipt Acknowledged By: 12/01/2023 16:43 /dexter/ Oziel Espinosa MA, PHN, RN-BC processing manager Boiler Inspector 12/01/2023 ADDENDUM STATUS: COMPLETED Hospital Admission Care Coordination Note. Admitted to: [facility] Admission date: 11/23/23 Chief Complaint/Dx: Fracture Ilium Closed Initial Left Level of Care: Critical; 11/27/23 Transferred to Acute Medical Records uploaded by ZAID FREED to [facility] Imaging via [employer]. Records also available for viewing in JLV within the Imaging and Community Health Summaries and Documents widgets. Discharge Summary will be uploaded into the Veterans medical record when available. Although appears medically stable for transfer via chart review,neither the patient, nor the patient's registered representative have requested transfer to the [facility], nor are there any beds available at the [facility] for the level of care required. /dexter/ Oziel Espinosa MA, PHN, RN-BC processing manager Boiler Inspector Signed: 12/01/2023 17:27 Receipt Acknowledged By: 12/02/2023 11:22 /dexter/ Naveed Cash RN [facility] for DANA AGUIRRE 11/23/2023 ADDENDUM STATUS: COMPLETED [facility]ist[facility] Imaging Scanned Document - Addendum. [facility], 11-23-23 ED Notes & 11-25-23 Operative Note. SCANNED DOCUMENT SIGNATURE NOT REQUIRED Electronically Filed: 12/01/2023 by: Oziel Espinosa MA, PHN, RN-BC processing manager Boiler Inspector NAVEED CASH [facility] Dec 01, 2023 05:14 PM ADDENDUM: LOCAL TITLE: Addendum STANDARD TITLE: ADDENDUM DATE OF NOTE: DEC 01, 2023@17:14:31 ENTRY DATE: DEC 01, 2023@17:14:32 AUTHOR: OZIEL ESPINOSA COSIGNER: URGENCY: STATUS: COMPLETED Hospital Admission Care Coordination Note. Admitted to: [facility] Admission date: 11/23/23 Chief Complaint/Dx: Fracture Ilium Closed Initial Left Level of Care: Critical; 11/27/23 Transferred to Acute Medical Records uploaded by ZAID FREED to [facility] via [employer]. Records also available for viewing in JLV within the Imaging and Community Health Summaries and Documents widgets. Discharge Summary will be uploaded into the [facility] medical record when available. Although appears medically stable for transfer via chart review,neither the patient, nor the patient's registered representative have requested transfer to the [facility], nor are there any beds available at the [facility] for the level of care required. /dexter/ Oziel Espinosa MA, PHN, RN-BC processing manager Boiler Inspector Signed: 12/01/2023 17:27 Receipt Acknowledged By: 12/02/2023 11:22 /dexter/ Naveed Cash RN [facility] for DANA AGUIRRE --- Original Document --- 11/23/23 [facility] SELF PRESENTING CARE COORD PLAN NOTE: Emergency Notification Intake Date Presenting to the Facility: Nov Method of Contact: Notified from Veot[employer] worklist Notification ID: [id number] Referral #: [facility] [place] Name: Hospital: [facility], Address: City: [place], [facility]: [place] Zip Code: Phone : [facility] Point of Contact: Name: GABRIELLE Chief complaint: D649 - Anemia, unspecified Primary Diagnosis: Disposition Admitted Route of Admission: Date of Admission: Nov Admitting Diagnosis: D649 - Anemia, unspecified Community Care Provider: Confirm Level of Care: [place] [id number] /dexter/ CORI DEAN CHIEF CLOTH FINISHING RANGE OPERATOR Signed: 12/01/2023 09:35 Receipt Acknowledged By: 12/01/2023 16:43 /es/ Oziel Espinosa MA, PHN, RN-BC processing manager Boiler Inspector 11/23/2023 ADDENDUM STATUS: COMPLETED [facility]ist[facility] Imaging Scanned Document - Addendum. [facility], 11-23-23 ED Notes & 11-25-23 Operative Note. SCANNED DOCUMENT SIGNATURE NOT REQUIRED Electronically Filed: 12/01/2023 by: Oziel Espinosa MA, PHN, RN-BC processing manager Boiler Inspector OZIEL ESPINOSA [facility] Nov 23, 2023 12:45 PM NONVA NOTE: LOCAL TITLE: [facility] SELF PRESENTING CARE COORD PLAN STANDARD TITLE: NONVA NOTE DATE OF NOTE: NOV 23, 2023@12:45 ENTRY DATE: DEC 01, 2023@09:31:19 AUTHOR: CORI DEAN EXP COSIGNER: URGENCY: STATUS: COMPLETED [facility] SELF PRESENTING CARE COORD PLAN NOTE Has ADDENDA Emergency Notification Intake Date Presenting to the Facility: Nov Method of Contact: Notified from Veotag worklist Notification ID: [id number] [facility] Referral #: [facility] [place] Name: Hospital: [facility], Address: City: [place], State: [place] Zip Code: Phone : [facility] Point of Contact: Name: GABRIELLE Chief complaint: D649 - Anemia, unspecified Primary Diagnosis: Disposition Admitted Route of Admission: Date of Admission: Nov Admitting Diagnosis: D649 - Anemia, unspecified Community Care Provider: Confirm Level of Care: Notify - Submit for [id number] /es/ CORI DEAN CHIEF CLOTH FINISHING RANGE OPERATOR Signed: 12/01/2023 09:35 Receipt Acknowledged By: 12/01/2023 16:43 /es/ Oziel Espinosa MA, PHN, RN-BC processing manager Boiler Inspector 12/01/2023 ADDENDUM STATUS: COMPLETED Hospital Admission Care Coordination Note. Admitted to: [facility] Admission date: 11/23/23 Chief Complaint/Dx: Fracture Ilium [...] chart review,neither the patient, nor the patient's registered representative have requested transfer to the [facility], nor are there any beds available at the [facility] for the level of care required. /es/ Oziel Espinosa MA, PHN, RN-BC processing manager Boiler Inspector Signed: 12/01/2023 17:27 Receipt Acknowledged By: 12/02/2023 11:22 /es/ Naveed Cash RN [facility] for DANA AGUIRRE 11/23/2023 ADDENDUM STATUS: COMPLETED VistA Imaging Scanned Document - Addendum. [facility], 11-23-23 ED Notes & 11-25-23 Operative Note. SCANNED DOCUMENT SIGNATURE NOT REQUIRED Electronically Filed: 12/01/2023 by: Oziel Espinosa MA, PHN, RN-BC processing manager Boiler Inspector 12/02/2023 ADDENDUM STATUS: COMPLETED Phoned . Spoke with MEGAN Trevizo. DEJAN verified. - is still admitted to [facility] -Current plan is to discharge to [facility] for short term rehab -had the understanding that had authorization for out of network rehab. Was told by [facility] SW -Laundry Routeman informed Karoline there is no record of authorization, but would forward to SW to review. See Nov 29 CCC:Scheduling note for more information. -Unaware of any f/u needs at this time. -Discussed that any f/u recommended after discharge from Short Term rehab would need a prior authorization -[facility] is not an in-network facility ADDITIONAL [...] be driving and veterans decision making capabilities. -Laundry Routeman explained has not seen current provider. It [...] call: 14 min /dexter/ Naveed Cash RN [facility] Signed: 12/02/2023 11:38 Receipt Acknowledged By: 12/02/2023 11:42 /dexter/ Romana Goldstein APRN, CNP 12/06/2023 ADDENDUM STATUS: COMPLETED CONTINUED STAY REVIEW Contact Date: 12/06/23 Date of Admission: 11/23/23 Current Length of Stay: 13 days Method of Contact: Other: [facility] Inpatient level of care required: Critical; 11/27/23 [...] vein - Discussed with Dr. Khan (trauma coding consultant on 12/04) & due to the [...] page the Trauma Service at Addendum @ 2065: Spoke to Mrs. Grayson this afternoon about [...] review, neither the patient, nor the patient's registered representative have requested transfer to the [facility], nor are there any beds available at the [facility] for the level of care required. /dexter/ Oziel Espinosa MA, PHN, RN-BC processing manager Boiler Inspector Signed: 12/06/2023 09:34 12/09/2023 ADDENDUM STATUS: COMPLETED CONTINUED STAY REVIEW Contact Date: 12/09/23 Date of Admission: 11/23/23 Current Length of Stay: 16 days Method of Contact: Other: [facility] Inpatient level of care required: Critical; 11/27/23 Transferred to Acute Trauma Critical Care and General Surgery note dated, 12/08/23: ASSESSMENT / PLAN Mr. Grayson is hospitalized on [facility] Trauma for evaluation and management of: Fracture Ilium Closed Initial Left (HCC). 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 Comorbidities include (collateral received from Mikayla- [...] Brain Traumatic With Loss Of Consciousness Initial ([facility]) #15 Postprocedural Hemorrhagic Shock Initial #16 Overweight Body Mass Index 25-29.9 Adult #17 Physical Restraint Status #18 Atelectasis #19 Effusion Pleural #20 Thrombosis Deep Vein Lower Extremity Left ([facility]) #21 Dysphagia Lisbeth consulted on [...] sleep enhancement General delirium prevention/management strategies: Minimize RESEARCH LABORATORY MANAGER-acting medications. Increase mobility to match ability. Frequent reorientation. Provide moderate level of social and cognitive stimulation. Treat dehydration and constipation. Nonpharmacologic sleep promotion strategies. The above plan of care was discussed with Dr. Coello, HIM coding consultant. I personally spent a total of 35 minutes providing and coordinating care today. Thank you for the opportunity to care for this patient. We will continue to follow with you. Please page the Geriatrics Consult Service at [phone] with any questions or concerns. Although appears medically stable for transfer via chart review, neither the patient, nor the patient's registered representative have requested transfer to the [facility], nor are there any beds available at the [facility] for the level of care required. /dexter/ Oziel Espinosa MA, PHN, RN- processing manager Boiler Inspector Signed: 12/09/2023 13:44 12/16/2023 ADDENDUM STATUS: COMPLETED CONTINUED STAY REVIEW Contact Date: 12/16/23 Date of Admission: 11/23/23 Current Length of Stay: 23 days Method of Contact: Other: [facility] Inpatient level of care required: Critical; 11/27/23 Transferred to Acute Trauma Critical Care and General Surgery note dated, 12/15/23: ASSESSMENT / PLAN Currently assessing for placement versus ongoing with family at assistive [place] provided by [place]. Mechanism of Injury: Fell from a 6 [...] Closed With Stable Disruption Pelvis Ring Initial ([facility]) #11 Fracture Ilium Closed Initial Left ([facility]) Multiple comminuted fractures of the left [...] contact the Trauma service with questions at [phone]. Although appears medically stable for transfer via chart review, neither the patient, nor the patient's registered representative have requested transfer to the [facility], nor are there any beds available at the [facility] for the level of care required. /dexter/ Oziel Espinosa MA, PHN, RN-BC processing manager Boiler Inspector Signed: 12/16/2023 11:42 12/21/2023 ADDENDUM STATUS: COMPLETED CONTINUED STAY REVIEW Contact Date: 12/21/23 Date of Admission: 11/23/23 Current Length of Stay: 28 days Method of Contact: Other: [facility] Inpatient level of care required: Critical; 11/27/23 [...] at this time Please page trauma at [phone] with any questions regarding the care of this patient. Thanks. Cosigned by: Alexandra Varela M.D. at 12/20/2023 2:17 PM Although appears medically stable for transfer via chart review, neither the patient, nor the patient's registered representative have requested transfer to the [facility], nor are there any beds available at the [facility] for the level of care required. /dexter/ Oziel Espinosa MA, PHN, RN- processing manager Boiler Inspector Signed: 12/21/2023 09:01 12/26/2023 ADDENDUM STATUS: COMPLETED CONTINUED STAY REVIEW Contact Date: 12/26/23 Date of Admission: 11/23/23 Current Length of Stay: 33 days Method of Contact: Other: [facility] Inpatient level of care required: Critical; 11/27/23 [...] home on 12/26 - Ramp was installed 7/5 - Hospital bed will arrive Tuesday - DME urology supplies pended in discharge orders - Wheelchair transportation being arranged by [facility]. If this can't be setup, the patient's will provide transportation If you have any questions or concerns please page the Trauma Service at Although appears medically stable for transfer via chart review, neither the patient, nor the patient's registered representative have requested transfer to the [facility], nor are there any beds available at the [facility] for the level of care required. CARMELINA=12-27-23 /dexter/ Oziel Espinosa MA, PHN, RN-BC processing manager Boiler Inspector Signed: 12/26/2023 12:23 12/27/2023 ADDENDUM STATUS: COMPLETED HOSPITAL DISCHARGE CARE COORDINATION NOTE Hospital Name: [facility] Admit date: 11/23/23 Discharge date: 12/27/23 Level of Care: Critical Primary Diagnosis: Fracture Ilium Closed Initial Left Discharge Disposition: Home-Health Care [facility] Discharge provider recommends and notes the following: REASON FOR ADMISSION Anemia Contusion Buttock Initial Subarachnoid Hemorrhage With Loss Of Conscious Initial (HCC) Fracture Acetabulum Closed Initial Left (HCC) Fracture Ilium Closed Initial Left (HCC) History Of Falling Other Shock (Hemorrhagic Shock) (HCC) Retroperitoneal Hematoma HOSPITAL COURSE #1 Status post Fall 6 feet from Ladder Mr. Grayson was transported to [facility] as a level red trauma for [...] touchdown weight-bearing to the left lower extremity. [place] were removed at surgical site on 12/15. [...] discharge home with home health care services (fdc, health aide, PT/OT). Services, equipment, and adaptations [...] 12/26 with home health care through the [place]... ACTIVE ISSUES REQUIRING FOLLOW UP ORTHOPEDIC RECOMMENDATIONS: [...] and either have them pushed to the [facility] or sent to Dr. Higuera's team via disc for review. You will be scheduled for an in person follow up visit at 12 weeks post surgery with repeat imaging at which time advancement to your weight bearing will be discussed. Please contact Dr. Higuera's team with any questions regarding follow up plan at [phone]. NO FOLLOW UP REQUIRED WITH TRAUMA-CRITICAL CARE-GENERAL SURGERY (TCGS): You do not require a follow up appointment at this time. If you are having difficulty, have questions or would like to be seen in follow-up, please call to make an appointment at [phone]. If you need to reach a provider on the TCGS service after hours, you may call the [facility] offset press operator at and ask to speak the provider continuous churn buttermaker for the Trauma-Critical Care-General Surgery (TCGS) Service. If you have forms that need addressed by the surgery team or outside records that need to be uploaded, please email them to [email or web address] or fax them at [phone]. Issue: Follow up with pelvis x-rays What is Needed: pelvis x-rays Follow-up Appointments Arranged: No, but orders provided to family to have them done at a convenient clinic Rody Arriaga APRN, C.N.P., D.N.P. Please review the Discharge Summary for details of the care rendered, as well as any necessary or recommended follow up care the patient may require. Hospital records uploaded to [facility] via [employer]. Records also available to view in JLV within the Imaging and Community Health Summaries and Documents widgets. /dexter/ Oziel Espinosa MA, PHN, RN-BC processing manager Boiler Inspector Signed: 12/27/2023 14:44 Receipt Acknowledged By: 12/29/2023 08:49 /es/ Garrett Browning RN [facility] for DANA BARROWS 12/28/2023 12:07 /es/ Romana Goldstein APRN, CNP 12/27/2023 ADDENDUM STATUS: COMPLETED VistA Imaging Scanned Document - Addendum. [facility] 12-27-23 [facility] [place] Summary. SCANNED DOCUMENT SIGNATURE NOT REQUIRED Electronically Filed: 12/27/2023 by: Oziel Espinosa MA, PHN, RN-BC processing manager Boiler Inspector 12/29/2023 ADDENDUM STATUS: COMPLETED RTC placed/AMSAs notified for hospital f/u with PCP. /dexter/ Garrett Browning RN [facility] Signed: 12/29/2023 08:50 02/07/2024 ADDENDUM STATUS: COMPLETED Joanne from vendor at [facility] called to see if a consult has been placed for covered care for Georgie for admit on 11/23/23-11/27/23 for inpatient stay . Alerting RN for review Joanne can be reached at [phone] direct. /dexter/ LALITA HERNANDEZ AMSA Signed: 02/07/2024 12:47 Receipt Acknowledged By: 02/08/2024 11:46 /dexter/ Oziel Espinosa MA, PHN, RN-BC processing manager Boiler Inspector 02/08/2024 ADDENDUM STATUS: COMPLETED I was alerted to the preceding addendum: Joanne from vendor at [facility] called to see if a consult has been placed for covered care for Georgie for admit on 11/23/23-11/27/23 for inpatient stay . Alerting RN for review Joanne can be reached at [phone] direct. LALITA HERNANDEZ 02/07/2024 12:47 I contacted Joanne who indicated that their billing was rejected. I asked her what authorization number was listed and she provided the Notification ID number. I suggested she list the [facility] number: [id number] instead. She verified she did not have that number and stated she will resubmit with this number. The call ended amicably. /dexter/ Oziel Espinosa MA, PHN, RN-BC processing manager Boiler Inspector Signed: 02/08/2024 11:45 CORI DEAN [facility]
--- OUTSIDE RECORDS SUMMARY | 2024-05-31 08:04 | XMS_ITS | Encounter Summary ---
Author Name [place] Address [address], [place] [address] Care Team Providers Care Criminal Judge Name Role Phone ROMANA GOLDSTEIN Primary Care [...] PART A Jul 21, 2007 PART A [id number] [phone] PRATEEK CHON PATIENT Selected Encounter This section includes the [...] 29, 2023 07:00 AM AMBULATORY - NONE [facility] Jan 11, 2024 01:00 PM AMBULATORY - MEDICINE [place] ([facility]) Jan 11, 2024 02:30 PM AMBULATORY - PSYCHIATRY [facility] ([facility]) Jan 25, 2024 11:44 AM AMBULATORY - NONE [facility] Jan 31, 2024 09:00 AM AMBULATORY - PSYCHIATRY [place] ([facility]) Jan 31, 2024 09:01 AM AMBULATORY [place] [facility] Mar 23, 2024 01:01 PM AMBULATORY - NONE [facility] Social History: Smoking Status (Most [...] URGENCY: STATUS: COMPLETED PCSW received message from Browning's stating she does not think she needs home RN for Browning when he returns home and she needs a ramp and gait belt. This sheet writer placed return call to her on this day (12/13/23) at [phone] and spoke with her regarding discharge plan. Kenny- Browning's stated that her son is coming home for 1/2 weeks and she feels that between the 2 of them they wouldn't need the home nursing. Landfill Grader review with spouse that it may take awhile for VA to get home care ordered and in the home and suggested she consider having the consult placed, meet with the home stereo equipment installer and then work with them on how often the home care comes out and when they start. Kenny stated that sounded like a good plan and agreed to keep the request for home RN and NOVELTIES SALES REPRESENTATIVE (along with PT and OT). Kenny also stated she needs a ramp, pivot disk and gait belt, sheet writer verbalized understanding and deferred to hospital Zoning Technician as their therapist is going to be the one placing the orders. Landfill Grader informed Kenny I would place a call and talk with [facility] Zoning Technician about requesting this from the hospital therapy staff, she verbalized understanding. Kenny- Emili's spouse had no further questions at the time of visit. Landfill Grader then placed call to Romana the [facility] Zoning Technician, provided above update. She is going to request the order for ramp, and gait belt and discuss the pivot disk option with therapy. She noted she is having a difficult time getting the therapist to complete the form but will approach them again today. Romana had no further questions at the time of visit. PCSW to remain available. /dexter/ ADELSO Sandoval Primary Care Zoning Technician Signed: 12/13/2023 11:59 ELLEN LEON ([facility])
--- OUTSIDE RECORDS SUMMARY | 2024-05-31 08:04 | XMS_ITS | Encounter Summary ---
Author Name [facility] [place] Address [address], [place] [address] Care Team Providers Care Oracle Scm Consultant Name Role Phone ROMANA GOLDSTEIN Primary Care [...] PART A Jul 21, 2007 PART A [id number] [phone] PRATEEK COHN PATIENT Selected Encounter This section [...] 29, 2023 07:00 AM AMBULATORY - NONE [facility] Jan 11, 2024 01:00 PM AMBULATORY - MEDICINE [facility] ([facility]) Jan 11, 2024 02:30 PM AMBULATORY - PSYCHIATRY [facility] ([facility]) Jan 25, 2024 11:44 AM AMBULATORY - NONE [facility] Jan 31, 2024 09:00 AM AMBULATORY - PSYCHIATRY [place] ([facility]) Jan 31, 2024 09:01 AM AMBULATORY [place]RY [place] [facility] Mar 23, 2024 01:01 PM AMBULATORY - NONE [facility] Social History: Smoking Status (Most current) and [...] 01, 2017 02:51 PM LIFETIME NON-TOBACCO USER [facility] Tobacco Use History This section includes a history of the smoking, or tobacco-related health factors, that were collected on or before the date of the Encounter. The data comes from the [place] facility where the Encounter took place. Date/Time Smoking Status/Tobacco Use Comment F acility Aug 10, 2016 09:08 AM FORMER TOBACCO USER 7Y OR GREATE R [facility] Aug 10, 2016 09:08 AM LIFETIME NON-TOBACCO USER [facility] Sep 06, 2014 08:19 AM FORMER TOBACCO USER 7Y OR GREATE R [facility] Dec 09, 2011 01:28 PM FORMER TOBACCO USER 7Y OR GREATE R [facility] Encounter Notes: All associated encounter notes This section contains the clinical notes associated to the Encounter. Date/Time Encounter Note(s) Provider Source Dec 12, 2023 03:18 PM ADDENDUM: LOCAL TITLE: Addendum STANDARD TITLE: ADDENDUM DATE OF NOTE: DEC 12, 2023@15:18:05 ENTRY DATE: DEC 12, 2023@15:18:05 AUTHOR: ELLEN CRAIG COSIGNER: URGENCY: STATUS: COMPLETED PCSW [facility] this day (12/12/23) stating that is currently on a 1:1 at the hospital which is why they haven't been able to find placement at a mcfp. Romana stated that they may not find placement, they are waiting to hear back from one other mcfp but if not then [place] will be discharging home and they will need home care. Clinical Safety Specialist verbalized understanding and stated that we can get DME and Home Care through [facility] but it was going to be minimal home care and DME may take a while to set up, Romana verbalized understanding. We also discussed [facility] neither of which are appropriate for [place] at this time. Romana is going to talk with about home care and DME and call information writer back. Clinical Safety Specialist received a return call from hospital Sales Service Assistant and her message stated they are still waiting to hear back from one mcfp in [place], but the [place]'s spouse didn't tell them he was a 1:1 so she was not sure if they would accept [place]. She stated that the would like to move forward with DME and home care planning. She notes the [place] needs the following: Home PT, OT, RN and THERMOFORMING OPERATOR and DME: hospital bed, urinary cath's, betadine wipes, urinal, bath/shower chair, cleaning wipes. Clinical Safety Specialist emailed Romana the [facility] DME form and requested the form be faxed to [phone] with any DME requests. Clinical Safety Specialist to defer to PACT for consults for home care and medical supplies. This information writer returned Romana's call on this day (12/12/23) at [phone] and left a HIPPA complaint voicemail stating that I got her requests and again reminded her to fax DME requests into [phone]. Plan: - PCSW is kindly cosigning PACT RN to place consult for home PT, OT, RN and THERMOFORMING OPERATOR, urinary cath's, betadine wipes, urinal and body cleaning wipes. Please alert [facility] family is requesting [facility] home care. - PCSW to remain available. /es/ ADELSO Sandoval Primary Care Sales Service Assistant Signed: 12/12/2023 15:18 Receipt Acknowledged By: 12/15/2023 11:43 /es/ DANA E CARLA, RN, BSN Staff Nurse --- Original Document --- 12/09/23 SOCIAL WORK PROGRESS NOTE: PCSW received 4 minutes message from requesting a return call regarding discharge planning as she got an unexpected call that [place] needs to discharge. Clinical Safety Specialist placed return call to - Kenny on 12/08/23 and spoke with her. She stated that the hospital Sales Service Assistant told her they couldn't find a place for [place] so [place] may need to return home. Kenny stated they do not have any DME equipment and would need staffing to help her. Kenny stated they have a friend Ana that is willing to be hired on by home care ([facility]) to provide cares for [place]. Clinical Safety Specialist verbalized understanding and stated I can request a consult be placed for VA paid home care with [facility] once we know what is needed, Kenny verbalized appreciation. Kenny notes they are not set up at home with DME, information writer stated I would reach out to the hospital vacation planner to complete our Community DME form and we can then send that request in to be reviewed and filled as able, she verbalized appreciation. Kenny was very clear that she wants [place] home. 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 She stated it is no hardship to her to have him home. However she would like to see [place] go to a mcfp for short term rehab and is not understanding why the hospital vacation planner is having such a difficult time finding a facility to take him. Clinical Safety Specialist informed I would be calling the hospital Sales Service Assistant to assist with any discharge plans and will assess the discharge plan more at that time. [facility] Sales Service Assistant is off on 12/08/23- information writer called main Sales Service Assistant line and left a message and called her direct line again on 12/09/23 and left another message, waiting return call. had no further questions on 12/08/23 during call. PCSW to remain available. /dexter/ ADELSO Sandoval Primary Care Sales Service Assistant Signed: 12/09/2023 10:20 12/12/2023 ADDENDUM STATUS: COMPLETED Clinical Safety Specialist received return call from hospital Sales Service Assistant. Clinical Safety Specialist placed return call and left a HIPPA compliant message on an identified voicemail requesting a return call at my direct line, awiting return call. /dexter/ ADELSO Sandoval Primary Care Sales Service Assistant Signed: 12/12/2023 08:44 ELLEN CRAIG [place] ([facility]) Dec 09, 2023 10:19 AM SOCIAL WORK [...] as she got an unexpected call that [place] needs to discharge. Clinical Safety Specialist placed return call to - Kenny on 12/08/23 and spoke with her. She stated that the hospital Sales Service Assistant told her they couldn't find a place for so [place] may need to return home. Kenny stated they do not have any DME equipment and would need staffing to help her. Kenny stated they have a friend Ana that is willing to be hired on by home care ([facility]) to provide cares for [place]. Clinical Safety Specialist verbalized understanding and stated I can request a consult be placed for VA paid home care with [facility] once we know what is needed, Kenny verbalized appreciation. Kenny notes they are not set up at home with DME, information writer stated I would reach out to the hospital vacation planner to complete our Community DME form [...] would like to see go to a mcfp for short term rehab and is not understanding why the hospital vacation planner is having such a difficult time finding a facility to take him. Clinical Safety Specialist informed I would be calling the hospital Sales Service Assistant to assist with any discharge plans and will assess the discharge plan more at that time. [facility] Sales Service Assistant is off on 12/08/23- information writer called main Sales Service Assistant line and left a message and called her direct line again on 12/09/23 and left another message, waiting return call. had no further questions on 12/08/23 during call. PCSW to remain available. /dexter/ Ellen Craig [facility] Primary Care Sales Service Assistant Signed: 12/09/2023 10:20 12/12/2023 ADDENDUM STATUS: COMPLETED Clinical Safety Specialist received return call from hospital Sales Service Assistant. Clinical Safety Specialist placed return call and left a HIPPA compliant message on an identified voicemail requesting a return call at my direct line, awiting return call. /dexter/ Ellen Craig [facility] Primary Care Sales Service Assistant Signed: 12/12/2023 08:44 12/12/2023 ADDENDUM STATUS: COMPLETED PCSW received spoke with Romana- the hospital Sales Service Assistant on this day (12/12/23) stating that [place] is currently on a 1:1 at the hospital which is why they haven't been able to find placement at a mcfp. Romana stated that they may not find placement, they are waiting to hear back from one other mcfp but if not then will be discharging home and they will need home care. Clinical Safety Specialist verbalized understanding and stated that we can get DME and Home Care through [facility] but it was going to be minimal home care and DME may take a while to set up, Romana verbalized understanding. We also discussed [facility], neither of which are appropriate for [place] at this time. Romana is going to talk with about home care and DME and call information writer back. Clinical Safety Specialist received a return call from hospital Sales Service Assistant and her message stated they are still waiting to hear back from one mcfp in [place], but the 's spouse didn't tell them he was a 1:1 so she was not sure if they would accept [place]. She stated that the would like to move forward with DME and home care planning. She notes the needs the following: Home PT, OT, RN and THERMOFORMING OPERATOR and DME: hospital bed, urinary cath's, betadine wipes, urinal, bath/shower chair, cleaning wipes. Clinical Safety Specialist emailed Romana the [facility] DME form and requested the form be faxed to [phone] with any DME requests. Clinical Safety Specialist to defer to PACT for consults for home care and medical supplies. This information writer returned Romana's call on this day (12/12/23) at [phone] and left a HIPPA complaint voicemail stating that I got her requests and again reminded her to fax DME requests into [phone]. Plan: - PCSW is kindly cosigning PACT RN to place consult for home PT, OT, RN and THERMOFORMING OPERATOR, urinary cath's, betadine wipes, urinal and body cleaning wipes. Please alert [facility] family is requesting [facility] home care. - PCSW to remain available. /dexter/ ADELSO Sandoval Primary Care Sales Service Assistant Signed: 12/12/2023 15:18 Receipt Acknowledged By: * AWAITING SIGNATURE * DANA AGUIRRE ADRIANA D [place] ([facility])
--- OUTSIDE RECORDS SUMMARY | 2024-05-31 08:04 | XMS_ITS | Encounter Summary ---
Author Name [place] Address [address], [place] [address] Care Team Providers Care Lumber Tallier Name Role Phone ROMANA GOLDSTEIN Primary Care [...] PART A Jul 21, 2007 PART A [id number] [phone] PRATEEK COHN PATIENT Selected Encounter This section [...] 2023 09:30 AM AMBULATORY - NONE [facility] Dec 29, 2023 07:00 AM [facility] Jan 11, 2024 01:00 PM AMBULATORY - MEDICINE [facility] ([facility]) Jan 11, 2024 02:30 PM AMBULATORY - PSYCHIATRY [facility] [place] ([facility]) Jan 25, 2024 11:44 AM AMBULATORY - NONE [facility] Jan 31, 2024 09:00 AM AMBULATORY - PSYCHIATRY [place] ([facility]) Jan 31, 2024 09:01 AM AMBULATORY - [place] [facility] Mar 23, 2024 01:01 PM AMBULATORY - NONE [facility] Social History: Smoking Status (Most current) and [...] BEBETO CASH COSIGNER: URGENCY: STATUS: COMPLETED Phoned [place]. Spoke with MEGAN Trevizo. is still admitted to [facility]. -Karoline notes that the [facility] SW is contacting the [facility] to discuss short term Rehab. -Karoline was with the impression that Cydney has already spoken with the VA and gotten approval for out of network short term rehab placement. -Grounds Cleaner explained that he is unable to locate any notes regarding the rehab placemnt. PLAN: -Alerting PCSW to request from [facility] for short term rehab placement Phone call: 14 min /dexter/ Bebeto Cash RN [facility] Signed: 12/02/2023 11:20 Receipt Acknowledged By: 12/02/2023 12:05 /dexter/ ADELSO Sandoval Primary Care Thrasher Feeder --- Original Document --- 11/30/23 CCC: SCHEDULING ADMINISTRATION: Primary Care Call Center Other: BEN Lamas called stating that the is requesting snf. Cydney can be contacted at the listed number below for any additional information. This note was created by a [address] [facility] Call Center ABDIAZIZ/RUTH. Please do not alert this director underwriter sales by adding as a signer for future communications. Alerts are not monitored by this user, please reach out to [facility] Leadership instead if indicated. /dexter/ REX ESCOBEDO MSA,[address] Signed: 11/30/2023 15:35 Receipt Acknowledged By: 12/02/2023 11:13 /dexter/ Bebeto Cash RN [facility] for BEBETO POOLE [facility] Nov 30, 2023 03:31 PM ADMINISTRATIVE NOT E: LOCAL TITLE: CCC: SCHEDULING ADMINISTRATION STANDARD TITLE: ADMINISTRATIVE NOTE DATE OF NOTE: NOV 30, 2023@15:31 ENTRY DATE: NOV 30, 2023@15:31:52 AUTHOR: REX ESCOBEDO EXP COSIGNER: URGENCY: STATUS: COMPLETED CCC: SCHEDULING ADMINISTRATION Has ADDENDA Primary Care Call Center Other: BEN Lamas called stating that the is requesting snf. Cydney can be contacted at the listed number below for any additional information. This note was created by a V23 [facility] Call Center ABDIAZIZ/RUTH. Please do not alert this director underwriter sales by adding as a signer for future communications. Alerts are not monitored by this user, please reach out to [facility] Leadership instead if indicated. /dexter/ REX ESCOBEDO MSA,[address] [facility] Signed: 11/30/2023 15:35 Receipt Acknowledged By: 12/02/2023 11:13 /dexter/ Bebeto Cash RN [facility] for DANA AGUIRRE 12/02/2023 ADDENDUM STATUS: COMPLETED Phoned [place]. Spoke with MEGAN Trevizo. is still admitted to [facility]. -Karoline notes that the [facility] SW is contacting the VA to discuss short term Rehab. -Karoline was with the impression that Cyd[facility] has already spoken with the VA and gotten approval for out of network short term rehab placement. -Grounds Cleaner explained that he is unable to locate any notes regarding the rehab placemnt. PLAN: -Alerting PCSW to request from [facility] BEN for short term rehab placement Phone call: 14 min /dexter/ Bebeto Cash RN [facility] Signed: 12/02/2023 11:20 Receipt Acknowledged By: * AWAITING SIGNATURE * ELLEN LEON LAPRISHA L [facility]
--- OUTSIDE RECORDS SUMMARY | 2024-05-31 08:05 | XMS_ITS | Encounter Summary ---
Author Name [facility] [place] Organization [place] Address [address] [facility], [place] [address] Care Team Providers Care Pallet Assembler Name Role Phone ROMANA GOLDSTEIN Primary Care [...] PART A Jul 21, 2007 PART A [id number] [phone] PRATEEK COHN PATIENT Selected Encounter This section includes the information on record at [place] for the Encounter. Date/Time Encounter Type Encounter Description Reason Pro vider Source Dec 23, 2023 10:18 AM Outpatient Encounter PRIMARY CARE/MEDICINE IHE Encounter Template Text not used by [place] Plan of Treatment: Future Appointments (+ 6 months) and Future Tests (+/- 45 days) The Plan of Treatment section includes future care activities for the patient from all [place] treatmentfacilities. This section includes future appointments and future orders which are active, pending or scheduled. Future Appointments This section includes appointments that were scheduled to occur 6 months from the date of the Encounter, up to a maximum of 20 appointments. The data comes from all [place] treatment facilities. Appointment Date/Time Appointment Type Appointme nt Facility Name Dec 29, 2023 07:00 AM [facility] Jan 11, 2024 01:00 PM AMBULATORY - MEDICINE [facility] ([facility]) Jan 11, 2024 02:30 PM AMBULATORY - PSYCHIATRY [facility] ([facility]) Jan 25, 2024 11:44 AM AMBULATORY - NONE [facility] Jan 31, 2024 09:00 AM AMBULATORY - PSYCHIATRY [facility] ([facility]) Jan 31, 2024 09:01 AM AMBULATORY [place] [facility] Mar 23, 2024 01:01 PM AMBULATORY - NONE [facility] Social History: Smoking Status (Most current) and Tobacco Use (All prior to encounter date) This section includes the most current, and the historical, smoking and tobacco- related health factors from the [place] facility where the Encounter took place. Current Smoking Status This section includes the most current smoking, or tobacco-related health factor, from the [place] facility where the Encounter took place. Date/Time Current Smoking Status Comment Facil ity Dec 01, 2017 02:51 PM LIFETIME NON-TOBACCO USER [facility] Tobacco Use History This section includes a history of the smoking, or tobacco-related health factors, that were collected on or before the date of the Encounter. The data comes from the [place] facility where the Encounter took place. Date/Time [...] 7Y OR [facility] Encounter Notes: All associated encounter notes This section contains the clinical notes associated to the Encounter. Date/Time Encounter Note(s) Provider Source Dec 26, 2023 11:58 AM ADDENDUM: LOCAL TITLE: Addendum STANDARD TITLE: ADDENDUM DATE OF NOTE: DEC 26, 2023@11:58:42 ENTRY DATE: DEC 26, 2023@11:58:44 AUTHOR: JUANY BROWNING COSIGNER: URGENCY: STATUS: COMPLETED Engineering Project Designer informed by [facility] SW of catheter size/type via Teams, per [facility]. Appropriate orders entered. PCP will need to approve. /dexter/ Juany Browning RN [facility] Signed: 12/26/2023 11:59 Receipt Acknowledged By: 12/27/2023 16:37 /dexter/ Romana Goldstein APRN, CNP --- Original Document --- 12/23/23 SOCIAL WORK PROGRESS NOTE: PCSW spoke with hospital Production Control Technologist on this day (12/23/23) at [phone] and she stated that she spoke with [facility] and the ramp has been orders and hoping to be placed by 12/24/23 (A notes indicated 12/27/23) and the is hoping the hospital bed is being delivered today (12/23/23). Production Control Technologist indicated need for Cath supplies and PT and OT, group underwriter provided PACT's fax number to send the orders to for cath supplies, group underwriter to update PACT RN on PT/OT needs, she verbalized understanding. This group underwriter then called and left a HIPPA complaint message for Faviola- 's that I received an update from the hospital social sciences professor and to call me with any questions at [phone]. Plan: - PCSW is kindly cosigning PACT RN to place new consult for PT, OT, SNV and cath orders. - PCSW to remain available. /dexter/ ADELSO Sandoval Primary Care Production Control Technologist Signed: 12/23/2023 10:19 Receipt Acknowledged By: 12/23/2023 14:11 /dexter/ Juany Browning RN [facility] for DANA AGUIRRE 12/23/2023 14:11 /adriano Browning RN [facility] 12/23/2023 ADDENDUM STATUS: COMPLETED At the time of this note, no fax yet received from [facility] with i/o catheter orders, etc. Engineering Project Designer did find instructions for i/o cathing on [facility] (catheter size/type not found). Consult placed for skilled HH services (SN, PT, OT). CITC RN is handling non-skilled HH consult. Engineering Project Designer will place order for i/o catheter if it is received before leaving today. Otherwise, PACT can place order early next week. /adriano Browning RN [facility] Signed: 12/23/2023 14:18 Receipt Acknowledged By: 12/26/2023 13:08 /adriano AGUIRRE RN, BSN Staff Nurse 12/23/2023 14:36 /adriano PATHAK RN Community Attending Anesthesiologist 12/26/2023 07:49 /ADELSO Banks Primary Care Production Control Technologist JUANY BROWNING ([facility]) Dec 23, 2023 02:12 PM ADDENDUM: LOCAL TITLE: Addendum STANDARD TITLE: ADDENDUM DATE OF NOTE: DEC 23, 2023@14:12:55 ENTRY DATE: DEC 23, 2023@14:12:56 AUTHOR: JUANY BROWNING EXP COSIGNER: URGENCY: STATUS: COMPLETED At the time of this note, no fax yet received from [facility] with i/o catheter orders, etc. Engineering Project Designer did find instructions for i/o cathing on [facility] (catheter size/type not found). Consult placed for skilled HH services (SN, PT, OT). CITC RN is handling non-skilled HH consult. Engineering Project Designer will place order for i/o catheter if it is received before leaving today. Otherwise, PACT can place order early next week. /adriano Browning RN [facility] Signed: 12/23/2023 14:18 Receipt Acknowledged By: 12/26/2023 13:08 /adriano AGUIRRE RN, BSN Staff Nurse 12/23/2023 14:36 /adriano PATHAK RN Community Attending Anesthesiologist 12/26/2023 07:49 /ADELSO Banks Primary Care Production Control Technologist --- Original Document --- 12/23/23 SOCIAL WORK PROGRESS NOTE: PCSW spoke with hospital Production Control Technologist on this day (12/23/23) at [phone] and she stated that she spoke with [employer] and the ramp has been orders and hoping to be placed by 12/24/23 (A notes indicated 12/27/23) and the is hoping the hospital bed is being delivered today (12/23/23). Production Control Technologist indicated need for Cath supplies and PT and OT, group underwriter provided PACT's fax number to send the orders to for cath supplies, group underwriter to update PACT RN on PT/OT needs, she verbalized understanding. This group underwriter then called and left a [facility] for [facility]aviola- 's that I received an update from the hospital social sciences professor and to call me with any questions at [phone]. Plan: - PCSW is kindly cosigning PACT RN to place new consult for PT, OT, SNV and cath orders. - PCSW to remain available. /ADELSO Banks Primary Care Production Control Technologist Signed: 12/23/2023 10:19 Receipt Acknowledged By: 12/23/2023 14:11 /adriano Browning RN [facility] for DANA AGUIRRE 12/23/2023 14:11 /adriano Browning RN [facility] 12/26/2023 ADDENDUM STATUS: COMPLETED Engineering Project Designer informed by [facility] SW of catheter size/type via Teams, per [facility]. Appropriate orders entered. PCP will need to approve. /adriano Browning RN [facility] Signed: 12/26/2023 11:59 Receipt Acknowledged By: * AWAITING SIGNATURE * ROMANA GOLDSTEIN DAMON W BUCHANAN ([facility]) Dec 23, 2023 10:18 AM SOCIAL WORK NOTE: LOCAL TITLE: SOCIAL WORK PROGRESS NOTE STANDARD TITLE: SOCIAL WORK NOTE DATE OF NOTE: DEC 23, 2023@10:18 ENTRY DATE: DEC 23, 2023@10:18:52 AUTHOR: ELLEN LEON EXP COSIGNER: URGENCY: STATUS: COMPLETED SOCIAL WORK PROGRESS NOTE Has ADDENDA PCSW spoke with hospital Production Control Technologist on this day (12/23/23) at [phone] and she stated that she spoke with Veterans and the ramp has been orders and hoping to be placed by 12/24/23 (A notes indicated 12/27/23) and the is hoping the hospital bed is being delivered today (12/23/23). Production Control Technologist indicated need for Cath supplies and PT and OT, group underwriter provided PACT's fax number to send the orders to for cath supplies, group underwriter to update PACT RN on PT/OT needs, she verbalized understanding. This group underwriter then called and left a [facility] complaint message for Faviola- Harriet's that I received an update from the hospital social sciences professor and to call me with any questions at [phone]. Plan: - PCSW is kindly cosigning PACT RN to place new consult for PT, OT, SNV and cath orders. - PCSW to remain available. /ADELSO Banks Primary Care Production Control Technologist Signed: 12/23/2023 10:19 Receipt Acknowledged By: 12/23/2023 14:11 /dexter/ Juany Browning RN [facility] for DANA AGUIRRE 12/23/2023 14:11 /adriano Browning RN [facility] 12/23/2023 ADDENDUM STATUS: COMPLETED At the time of this note, no fax yet received from [facility] with i/o catheter orders, etc. Engineering Project Designer did find instructions for [facility]ing [facility] (catheter size/type not found). Consult placed for skilled HH services (SN, PT, OT). CITC RN is handling non-skilled HH consult. Engineering Project Designer will place order for i/o catheter if it is received before leaving today. Otherwise, PACT can place order early next week. /adriano Browning RN [facility] Signed: 12/23/2023 14:18 Receipt Acknowledged By: * AWAITING SIGNATURE * DANA AGUIRRE 12/23/2023 14:36 /adriano PATHAK RN Community Attending Anesthesiologist 12/26/2023 07:49 /dexter/ ADELSO Sandoval Primary Care Production Control Technologist 12/26/2023 ADDENDUM STATUS: COMPLETED Engineering Project Designer informed by [facility] SW of catheter size/type via Teams, per [facility]. Appropriate orders entered. PCP will need to approve. /dexter/ Juany Browning RN [facility] Signed: 12/26/2023 11:59 Receipt Acknowledged By: * AWAITING SIGNATURE * ROMANA GOLDSTEIN ADRIANA D BUCHANAN ([facility])
--- OUTSIDE RECORDS SUMMARY | 2024-05-31 08:05 | XMS_ITS | Encounter Summary ---
Author Name [facility] [place] Address [address] [facility], [place] [address] Care Team Providers Care Gathering Machine Setter Name Role Phone ROMANA GOLDSTEIN Primary Care [...] PART A Jul 21, 2007 PART A [id number] [phone] PRATEEK COHN PATIENT Selected Encounter This section [...] 29, 2023 07:00 AM [facility] Jan 11, 2024 01:00 PM AMBULATORY - MEDICINE [facility] ([facility]) Jan 11, 2024 02:30 PM AMBULATORY - PSYCHIATRY [facility] ([facility]) Jan 25, 2024 11:44 AM [facility]ONE [facility] Jan 31, 2024 09:00 AM AMBULATORY - PSYCHIATRY [facility] ([facility]) Jan 31, 2024 09:01 AM AMBULATORY - [place] [facility] Mar 23, 2024 01:01 PM AMBULATORY - NONE [facility] Social History: Smoking Status (Most current) [...] 01, 2017 02:51 PM LIFETIME NON-TOBACCO USER [facility] Tobacco Use History This section includes a history of the smoking, or tobacco-related health factors, that were collected on or before the date of the Encounter. The data comes from the [place] facility where the Encounter took place. Date/Time Smoking Status/Tobacco Use Comment F acility Aug 10, 2016 09:08 AM FORMER TOBACCO USER 7Y OR [facility] Aug 10, 2016 09:08 AM LIFETIME NON-TOBACCO USER [facility] Sep 06, 2014 08:19 AM FORMER TOBACCO USER 7Y OR [facility] Dec 09, 2011 01:28 PM FORMER TOBACCO USER 7Y OR [facility] Encounter Notes: All associated encounter notes This section contains the clinical notes associated to the Encounter. Date/Time Encounter Note(s) Provider Source Dec 23, 2023 11:36 AM NONVA NOTE: LOCAL TITLE: COMMUNITY CARE-CARE COORDINATION PLAN NOTE STANDARD TITLE: NONVA NOTE DATE OF NOTE: DEC 23, 2023@11:36 ENTRY DATE: DEC 23, 2023@11:36:37 AUTHOR: DANA PATHAK COSIGNER: URGENCY: STATUS: COMPLETED Cleaner Assistant has been in contact with veterans with in attempts to set up home care. Have also been in contact with [facility] Romana CONTRERAS and [place] Clara CONTRERAS in attempts to correctly set up home care so that his complex needs are met. This has proven to be difficult d/t inaccurate information given to ghost writer from pt. at times. Pt.'s requested [facility], stated she worked for them, and has a friend there that was willing to do the home care for pt. After speaking with Marcella at [facility], was thinking that the [place] would pay for 2- 8 hr shifts of skilled respite care per week. Cleaner Assistant informed Marcella that [place] would most likely pay for 16 hrs a week of PCS (CREDIT COUNSELOR or respite) services given pt.'s high needs, but not 16 hrs of skilled care. Marcella told ghost writer, given that info, they would not be accepting the referral and they do not have CREDIT COUNSELOR available in [place], where pt. lives. Cleaner Assistant relayed this message to via . Received a call from BEN Hardy working with family at [facility], where pt. is hospitalized. Romana stated that the wanted to use the agency [facility], and wants her friend Ana Fischer ([facility]) to be the pt's CREDIT COUNSELOR. Cleaner Assistant was told to call Mani at [facility]. Cleaner Assistant called Mani, agency is closed today, however [...] was not needed. When speaking to the SW at [facility] she the definately do need the skilled referral. Explained to BEN at [facility], they will have to inform pt.'s PCP at [place] of all the services needed so they can all be entered correctly on the consult for a home care agency. In speaking with Clara CONTRERSA today. Pt. will be discharged some time next week. He will need a wc ramp installed, a hospital bed, and for his son to get there from [place] before pt. can dc to home. The longe term plan is for the Son's home in [place] to be remodeled, and then the he will have the pt. and his mom move there with him. At this time- Referral will be sent to [facility] for non-skilled. Wait for PACT to enter a new referral for skilled with all the serivices needed. /dexter/ DANA PATHAK industrial refrigeration mechanic Lacquer Sprayer Signed: 12/23/2023 12:16 DANA PATHAK [facility]
--- OUTSIDE RECORDS SUMMARY | 2024-05-31 08:05 | XMS_ITS | Encounter Summary ---
Author Name Department of [place] Organization [place] Address [address] [facility], [place] [address] Care Team Providers Care Sales Superintendent Name Role Phone ROMANA GOLDSTEIN Primary Care [...] PART A Jul 21, 2007 PART A [id number] [phone] PRATEEK GRAYSON PATIENT Selected Encounter This section includes the information on record at [place] for the Encounter. Date/Time Encounter Type Encounter Description Reason Provider Source Dec 23, 2023 12:00 PM Outpatient Encounter COMMUNITY CARE CONSULT DANA MANLEY [facility] Encounter Template Text not used by [place] [...] 29, 2023 07:00 AM [facility]ONE [facility] Jan 11, 2024 01:00 PM AMBULATORY - MEDICINE [facility] ([facility]) Jan 11, 2024 02:30 PM AMBULATORY - PSYCHIATRY [facility] ([facility]) Jan 25, 2024 11:44 AM AM[facility]ULATORY - NONE [facility] Jan 31, 2024 09:00 AM AMBULATORY - PSYCHIATRY [facility] ([facility]) Jan 31, 2024 09:01 AM AMBULATORY - [place]RY [place] [facility] Mar 23, 2024 01:01 PM AMBULATORY - NONE [facility] Social History: Smoking Status (Most current) [...] 01, 2017 02:51 PM LIFETIME NON-TOBACCO USER [facility] Tobacco Use History This section includes a history of the smoking, or tobacco-related health factors, that were collected on or before the date of the Encounter. The data comes from the [place] facility where the Encounter took place. Date/Time Smoking Status/Tobacco Use Comment F acility Aug 10, 2016 09:08 AM FORMER TOBACCO USER 7Y OR [facility] R [facility] Aug 10, 2016 09:08 AM LIFETIME NON-TOBACCO USER [facility] Sep 06, 2014 08:19 AM FORMER TOBACCO USER 7Y OR [facility] Dec 09, 2011 01:28 PM FORMER TOBACCO USER 7Y OR [facility] Encounter Notes: All associated [...] Manley Location: [facility] : Prateek Grayson SSN: [id number] : Jul [...] from SOURCES 1. Person /dexter/ DANA MANLEY chief jailer Power Saw Mechanic Signed: 12/23/2023 12:36 DANA MANLEY [facility]
--- OUTSIDE RECORDS SUMMARY | 2024-05-31 08:05 | XMS_ITS | Encounter Summary ---
Author Name [facility] [place] Address [address] [place] [address] Care Team Providers Care Laser Print Operator Name Role Phone ROMANA GOLDSTEIN Primary [...] PART A Jul 21, 2007 PART A [id number] [phone] PRATEEK COHN PATIENT Selected Encounter This section includes the information on record at [place] for the Encounter. Date/Time Encounter Type Encounter Description Reason Provider Source Dec 21, 2023 03:20 PM CASE MANAGEMENT PHYSICAL THERAPY ICD-10-CM Z74.09 Other reduced mobility VERONICA KING E Encounter Template Text not used by [place] Assessments - Encounter Diagnoses This section includes the primary and secondary diagnoses documented for the Encounter. Date/Time Primary/Secondary Diagnosis Diagnosis Name Provider Source Dec 21, 2023 03:25 PM PRIMARY Other reduced mobility VERONICA KING [facility] Plan of Treatment: Future Appointments (+ 6 months) and Future Tests (+/- 45 days) The Plan of Treatment section includes future care activities for the patient from all [place] [facility]. This section includes future appointments and [...] 29, 2023 07:00 AM AMBULATORY - NONE [facility] Jan 11, 2024 01:00 PM AMBULATORY - MEDICINE [facility] ([facility]) Jan 11, 2024 02:30 PM AMBULATORY - PSYCHIATRY [facility] ([facility]) Jan 25, 2024 11:44 AM AMBULATORY - NONE [facility] Jan 31, 2024 09:00 AM AMBULATORY - PSYCHIATRY [facility] ([facility]) Jan 31, 2024 09:01 AM [facility] Mar 23, 2024 01:01 PM AMBULATORY - NONE [facility] Social History: Smoking Status (Most current) [...] ESPERANZA ANDRADE EXP COSIGNER: URGENCY: STATUS: COMPLETED FUEL MANAGEMENT HANDLER ORDERED BOTH RESOUND OMNIA 60 MINI INEZ-R AIDS, UNDER ONE TIME WARRANTY REPLACEMENT. RESTORE SETTINGS AND MAIL AIDS TO WHEN COMPLETE /dexter/ ESPERANZA ANDRADE AUDIO TECH Signed: 01/02/2024 14:[address] [facility] Dec 21, 2023 03:22 PM ATTENDING NOTE: [...] desire to take him home. SW from [facility] and [facility] reported pt required ramp, however DME form was not filed out indicating need for ramp. Wood Heel Back Liner attempted to contact [facility] SW, PT and OT several times. Eventually [...] THERAPIST, CLT Signed: 12/21/2023 15:[address] [facility]
--- OUTSIDE RECORDS SUMMARY | 2024-05-31 08:05 | XMS_ITS | Encounter Summary ---
Author Name [facility] [place] Address [address] [place] [address] Care Team Providers Care Portuguese Tutor Name Role Phone TRISTONHORACE CASPERCIA Primary Care [...] PART A Jul 21, 2007 PART A [id number] [phone] PRATEEK COHN PATIENT Selected Encounter This section [...] activities for the patient from all [place] [facility]. This section includes future appointments and future orders which are active, pending or scheduled. Future Appointments This section includes appointments that were scheduled to occur 6 months from the date of the Encounter, up to a maximum of 20 appointments. The data comes from all [facility] facilities. Appointment Date/Time Appointment Type [...] 2024 09:01 AM AM[facility] [place] [facility] Mar 23, 2024 01:01 PM AMBULATORY - NONE [facility] Social History: Smoking Status (Most current) [...] Date/Time Current Smoking Status Comment Yann ferrer Sep 07, 2021 08:00 AM [place]TO[place]ACCO NEVER USED [place] ([facility]) Encounter Notes: All associated encounter notes This section contains the clinical notes associated to the Encounter. Date/Time Encounter Note(s) Provider Source Dec 15, 2023 11:33 AM PRIMARY CARE NURSJohn ART NOTE: LOCAL TITLE: [facility] NURSING PROGRESS NOTE STANDARD TITLE: PRIMARY CARE NURSING NOTE DATE OF NOTE: DEC 15, 2023@11:33 ENTRY DATE: DEC 15, 2023@11:33:40 AUTHOR: DANA AGUIRREER: URGENCY: STATUS: COMPLETED Notified from social work supervisor of discharging needs from . [place] suffered a fall on 11/23 and has been hospitilized since. He will require care when he goes home, which will be provided by his and son but also needing home care as well. [place] records reviewed. Elian would benefit from PT, OT, CLAY STAIN MIXER/HHM, respite and as well as multiple DME [...] well. Call time: 24 minutes. /dexter/ DANA AGUIRRE, RN, BSN Staff Nurse Signed: 12/15/2023 11:43 DANA AGUIRRE ([facility])
--- OUTSIDE RECORDS SUMMARY | 2024-05-31 08:05 | XMS_ITS | Encounter Summary ---
Author Name [facility] [place] Address [address], [place] [address] Care Team Providers Care Take Out Waiter Name Role Phone ROMANA GOLDSTEIN Primary Care [...] PART A Jul 21, 2007 PART A [id number] [phone] PRATEEK COHN PATIENT Selected Encounter This section includes the information on record at [place] for the Encounter. Date/Time Encounter Type Encounter Description Reason Pro vider Source Dec 20, 2023 09:20 AM Outpatient Encounter TELEPHONE PRIMARY CARE IHE Encounter Template Text not used by [place] Plan of Treatment: Future Appointments (+ 6 months) and Future Tests (+/- 45 days) The Plan of Treatment section includes future care activities for the patient from all [place] treatmentfacilities. This section includes future appointments and future orders which are active, pending or scheduled. Future Appointments This section includes appointments that were scheduled to occur 6 months from the date of the Encounter, up to a maximum of 20 appointments. The data comes from all [place] treatment facilities. Appointment Date/Time Appointment Type Appointme nt Facility Name Dec 29, 2023 07:00 AM [facility] Jan 11, 2024 01:00 PM AMBULATORY - MEDICINE [facility] ([facility]) Jan 11, 2024 02:30 PM AMBULATORY - PS[facility]CHIATRY [facility] ([facility]) Jan 25, 2024 11:44 AM [facility]ONE [facility] Jan 31, 2024 09:00 AM AM[facility]ULATORY - PS[facility]CHIATRY [facility] ([facility]) Jan 31, 2024 09:01 AM [place] [facility] [facility] Mar 23, 2024 01:01 PM AMBULATORY - NONE [facility] Social History: Smoking Status (Most current) and Tobacco Use (All prior to encounter date) This section includes the most current, and the historical, smoking and tobacco- related health factors from the [place] facility where the Encounter took place. Current Smoking Status This section includes the most current smoking, or tobacco-related health factor, from the [place] facility where the Encounter took place. Date/Time Current Smoking Status Comment Facil ity Dec 01, 2017 02:51 PM LIFETIME NON-TOBACCO USER [facility] Tobacco Use History This section includes a history of the smoking, or tobacco-related health factors, that were collected on or before the date of the Encounter. The data comes from the [place] facility where the Encounter took place. Date/Time Smoking Status/Tobacco Use Comment F acility Aug 10, 2016 09:08 AM FORMER TOBACCO USER 7Y OR GREATE R [facility] Aug 10, 2016 09:08 AM LIFETIME NON-TOBACCO USER [facility] Sep 06, 2014 08:19 AM FORMER TOBACCO USER 7Y OR GREATE R [facility] Dec 09, 2011 01:28 PM FORMER TOBACCO USER 7Y OR GREATE R [facility] Encounter Notes: All associated encounter notes This section contains the clinical notes associated to the Encounter. Date/Time Encounter Note(s) Provider Source Dec 19, 2023 03:15 PM SOCIAL WORK NOTE: LOCAL TITLE: BEN SOCIAL WORK PROGRESS NOTE STANDARD TITLE: SOCIAL WORK NOTE DATE OF NOTE: DEC 19, 2023@15:15 ENTRY DATE: DEC 20, 2023@09:20:28 AUTHOR: ELLEN LEON COSIGNER: URGENCY: STATUS: COMPLETED SOCIAL WORK PROGRESS NOTE Has ADDENDA PCSW received live call from Mani Baker's convention planner at the [facility] in [place], [place] on 12/19/23. Mani was inquiring about the DME form he sent process description writer, process description writer informed him I received his email but no attachment. [employer] provided fax to send it to for Community DME requests instead, he stated he would fax is on 12/19/23. 's discharge is on hold until they can secure the DME equipment, however is medically stable to discharge. They are requesting these items get sent out to family RAFAEL. PCSW is kindly cosigning Community Therapy team as an FYI of hospital's request. Mani- convention planner can be reached at [phone] with any questions. PCSW to remain available. /dexter/ ADELSO Sandoval Primary Care Equipment Operator Signed: 12/20/2023 09:20 Receipt Acknowledged By: 12/20/2023 15:32 /adriano PANIAGUA DPT PHYSICAL THERAPIST 12/20/2023 ADDENDUM STATUS: COMPLETED DME form has not been received. Additional methods for submitting the forms have been sent to the requesting provider. Will submit DME requests as soon as the forms are received. /dexter/ ISH PANIAGUA DPT PHYSICAL THERAPIST Signed: 12/20/2023 15:32 ELLEN LEON ([facility])
--- OUTSIDE RECORDS SUMMARY | 2024-05-31 08:05 | XMS_ITS | Encounter Summary ---
Author Name [facility] [place] Address [address], [place] [address] Care Team Providers Care Customer Support Engineer Name Role Phone HAYLEY GOLDSTEIN Primary Care [...] PART A Jul 21, 2007 PART A [id number] [phone] PRATEEK COHN PATIENT Selected Encounter This section includes the information on record at [place] for the Encounter. Date/Time Encounter Type Encounter Description Reason Pro vider Source Dec 30, 2023 08:48 AM Outpatient Encounter COMMUNITY CARE CONSULT IHE Encounter Template Text not used by [place] Plan of Treatment: Future Appointments (+ 6 months) and Future Tests (+/- 45 days) The Plan of Treatment section includes future care activities for the patient from all [place] treatmentfacilities. This section includes future appointments and future orders which are active, pending or scheduled. Future Appointments This section includes appointments that were scheduled to occur 6 months from the date of the Encounter, up to a maximum of 20 appointments. The data comes from all [place] treatment facilities. Appointment Date/Time Appointment Type Appointme nt Facility Name Jan 11, 2024 01:00 PM AMBULATORY - MEDICINE [facility] ([facility]) Jan 11, 2024 02:30 PM AMBULATORY - PS[facility]CHIATRY [facility] ([facility]) Jan 25, 2024 11:44 AM AMBULATORY - NONE [facility] Jan 31, 2024 09:00 AM AMBULATORY - PS[facility]CHIATRY [facility] ([facility]) Jan 31, 2024 09:01 AM [place]ORY [place] [facility] Mar 23, 2024 01:01 PM AMBULATORY - NONE [facility] Social History: Smoking Status (Most current) and Tobacco Use (All prior to encounter date) This section includes the most current, and the historical, smoking and tobacco- related health factors from the [place] facility where the Encounter took place. Current Smoking Status This section includes the most current smoking, or tobacco-related health factor, from the [place] facility where the Encounter took place. Date/Time Current Smoking Status Comment Facil ity Dec 01, 2017 02:51 PM LIFETIME NON-TOBACCO USER [facility] Tobacco Use History This section includes a history of the smoking, or tobacco-related health factors, that were collected on or before the date of the Encounter. The data comes from the [place] facility where the Encounter took place. Date/Time Smoking Status/Tobacco Use Comment F acility Aug 10, 2016 09:08 AM FORMER TOBACCO USER 7Y OR GREAT R [facility] Aug 10, 2016 09:08 AM LIFETIME NON-TOBACCO USER [facility] Sep 06, 2014 08:19 AM FORMER TOBACCO USER 7Y OR GREATE R [facility] Dec 09, 2011 01:28 PM FORMER TOBACCO USER 7 OR [facility] Encounter Notes: All associated encounter notes This section contains the clinical notes associated to the Encounter. Date/Time Encounter Note(s) Provider Source Dec 30, 2023 08:48 AM NONVA NOTE: LOCAL TITLE: COMMUNITY CARE-CARE COORDINATION PLAN NOTE STANDARD TITLE: NONVA NOTE DATE OF NOTE: DEC 30, 2023@08:48 ENTRY DATE: DEC 30, 2023@08:48:28 AUTHOR: DANA PATHAK COSIGNER: URGENCY: STATUS: COMPLETED Spoke with pt. , she called asking if the cath supplies were ordered and going to be mailed to her. [employer] Fer[employer] Operator confirmed they are in the mail. She [...] the future. /es/ DANA PATHAK RN Community Area Representative Signed: 12/30/2023 08:53 Receipt Acknowledged By: 12/30/2023 16:06 /es/ Hayley Goldstein APRN, JASSON 12/30/2023 09:28 /es/ Naveed Garcia RN [facility] for DANA SANCHEZ [facility]
--- OUTSIDE RECORDS SUMMARY | 2024-05-31 08:05 | XMS_ITS | Encounter Summary ---
Author Name [facility] [place] Address [address], [place] [address] Care Team Providers Care Energy Consultant Name Role Phone ROMANA GOLDSTEIN Primary [...] PART A Jul 21, 2007 PART A [id number] [phone] PRATEEK COHN PATIENT Selected Encounter This section [...] 2023 09:30 AM AM[place]ULATORY - NONE [place] [facility] Dec 29, 2023 07:00 AM AM[place] NONE [place] [facility] Jan 11, 2024 01:00 PM AMBULATORY - MEDICINE [facility] ([facility] Jan 11, 2024 02:30 PM AMBULATORY - PS[facility]CHIATRY [facility] Jan 25, 2024 11:44 AM AM[place]ORY - NONE [place] [facility] [facility] Jan 31, 2024 09:00 AM AMBULATORY - PS[facility]CHIATRY [facility] ([facility]) Jan 31, 2024 09:01 AM [place]ORY [place] [facility] Mar 23, 2024 01:01 PM [facility] Immunizations: All administered on the encounter date [...]
--- OUTSIDE RECORDS SUMMARY | 2024-05-31 08:05 | XMS_ITS | Encounter Summary ---
Author Name [facility] [place] Address [address] [place] [address] Care Team Providers Care Business Reporter Name Role Phone ROMANA GOLDSTEIN Primary Care [...] PART A Jul 21, 2007 PART A [id number] [phone] PRATEEK COHN PATIENT Selected Encounter This section includes the information on record at [place] for the Encounter. Date/Time Encounter Type Encounter Description Reason Provider Source Dec 20, 2023 03:34 PM CASE MANAGEMENT PHYSICAL THERAPY ICD-10-CM Z74.09 Other reduced mobility VERONICA KING E Encounter Template Text not used by [place] Assessments - Encounter Diagnoses This section includes the primary and secondary diagnoses documented for the Encounter. Date/Time Primary/Secondary Diagnosis Diagnosis Name Provider Source Dec 20, 2023 03:44 PM PRIMARY Other reduced mobility VERONICA KING [facility] Plan of Treatment: Future Appointments (+ 6 months) and Future Tests (+/- 45 days) The Plan of Treatment section includes future care activities for the patient from [facility] [place] [facility]. This section includes future appointments and future orders which are active, pending or scheduled. Future Appointments This section includes appointments that were scheduled to occur 6 months from the date of the Encounter, up to a maximum of 20 appointments. The data comes from all [place] treatment facilities. Appointment Date/Time Appointment Type Appointme [...] 31, 2024 09:01 AM [facility] Mar 23, 2024 01:01 PM AMBULATORY [...] 01, 2017 02:51 PM LIFETIME NON-TOBACCO USER [facility] Tobacco Use History This section includes a history of the smoking, or tobacco-related health factors, that were collected on or before the date of the Encounter. The data comes from the [place] facility where the Encounter took place. 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 CONSULTS PLACED: pt lift with divided leg sling, tub transfer bench, dressing stick, Warehouse Order Filler, gait belt, long handled shoe horn, commode chair, hand held shower hose, hospital bed, Warehouse Order Filler Address verified, therapist notified, and documentation saved in ECR PMR THERAPY folder. TOTAL TIME CASE MGMT: 15' /dexter/ LAILA KING DOCTORATE PHYSICAL THERAPIST, CLT Signed: 12/20/2023 15:44 LAILA KING [facility]
--- OUTSIDE RECORDS SUMMARY | 2024-05-31 08:05 | XMS_ITS | Encounter Summary ---
Author Name [place] Address [address], [place] [address] Care Team Providers Care Gas Technician Name Role Phone ROMANA GOLDSTEIN Primary [...] PART A Jul 21, 2007 PART A [id number] [phone] PRATEEK COHN PATIENT Selected Encounter This section [...] 29, 2023 07:00 AM AMBULATORY - NONE [facility] Jan 11, 2024 01:00 PM AMBULATORY - MEDICINE [facility] ([facility] Jan 11, 2024 02:30 PM AMBULATORY - PS[facility]CHIATRY [facility] [place] ([facility]) Jan 25, 2024 11:44 AM AMBULATORY - NONE [facility] Jan 31, 2024 09:00 AM AMBULATORY - PS[facility]CHIATRY [facility] [place] ([facility] Jan 31, 2024 09:01 AM AMBULATORY - [place] [facility] Mar 23, 2024 01:01 PM AMBULATORY - NONE [facility] Social History: Smoking Status [...] OR GREATE R [facility] Dec 09, 2011 01:28 PM FORMER TOBACCO USER 7Y OR GREATE R [facility] Encounter Notes: [...] CARE-CARE COORDINATION PLAN NOTE Has ADDENDA The [facility] Health Care Referral-Skilled acts as a direct [...] ALL requested/ordered services (i.e.: specific reason/indication for [place] [facility], specific wound care orders, etc.). Please place a new [facility] Health Care Referral-Skilled using the above directions. Thank you. /dexter/ DANA PATHAK RN Community Food And Nutrition Services Supervisor Signed: 12/23/2023 09:35 Receipt Acknowledged By: 12/23/2023 14:36 /dexter/ JEEVAN HICKEY NURSE PRACTITIONER for ROMANA WADSWORTH TRISTON 12/23/2023 10:24 /dexter/ Garrett Browning RN [facility] for DANA E CARLA 12/23/2023 ADDENDUM STATUS: COMPLETED Quarter Section Ironer aware of the above; also cosigned to today's note from [facility] SW. Currently awaiting orders from [facility] via fax. /dexter/ Garrett Browning RN [facility] Signed: 12/23/2023 10:25 DANA PATHAK [facility]
--- OUTSIDE RECORDS SUMMARY | 2024-05-31 08:06 | XMS_ITS | Encounter Summary ---
Author Name [facility] [place] Address [address], [place] [address] Care Team Providers Care Custodian Athletic Equipment Name Role Phone ROMANA GOLDSTEIN Primary Care [...] PART A Jul 21, 2007 PART A [id number] [phone] PRATEEK COHN PATIENT Selected Encounter This section [...] 25, 2024 11:44 AM AMBULATORY - NONE [facility] Jan 31, 2024 09:00 AM AMBULATORY - PS[facility]CHIATRY [place] ([facility] Jan 31, 2024 09:01 AM AMBULATORY - [place]IATRY [place] [facility] Mar 23, 2024 01:01 PM AMBULATORY - NONE [facility] Social History: Smoking Status (Most [...] 01, 2017 02:51 PM LIFETIME NON-TOBACCO USER [facility] Tobacco Use History This section includes a history of the smoking, or tobacco-related health factors, that were collected on or before the date of the Encounter. The data comes from the [place] facility where the Encounter took place. Date/Time Smoking Status/Tobacco Use Comment F acility Aug 10, 2016 09:08 AM FORMER TOBACCO USER 7Y OR GREATE R [facility] Aug 10, 2016 09:08 AM LIFETIME NON-TOBACCO USER [facility] Sep 06, 2014 08:19 AM FORMER TOBACCO USER 7Y OR GREATE R [facility] Dec 09, 2011 01:28 PM FORMER TOBACCO USER 7Y OR GREATE R [facility] Encounter Notes: All associated encounter notes [...] STATUS: COMPLETED PCSW received a message from [place]'s spouse- Faviola inquiring about returning the hospital bed. This signwriter placed return call on 01/09/24 to [phone] and spoke with Faviola- 's spouse and informed her she can call [facility] to return it. She verbalized understanding and stated she had the number and would do that. Faviola also asked about no refilling the cath supplies, signwriter advised her that I thought supplies need to be called in for refill so she wouldn't need to call and cancel any auto-refills, she verbalzied understanding. PCSW to remain available. /dexter/ ADELSO Sandoval Primary Care Sales Account Coordinator Signed: 01/11/2024 13:55 ELLEN LEON ([facility])
--- OUTSIDE RECORDS SUMMARY | 2024-05-31 08:06 | XMS_ITS | Encounter Summary ---
Author Name [facility] [place] Address [address], [place] [address] Care Team Providers Care Machinist Apprentice Wood Name Role Phone ROMANA GOLDSTEIN Primary Care [...] PART A Jul 21, 2007 PART A [id number] [phone] PRATEEK GRAYSON PATIENT Selected Encounter This section includes the information on record at [place] for the Encounter. Date/Time Encounter Type Encounter Description Reason Provider Source Jan 11, 2024 02:48 PM Outpatient Encounter [facility] ROMANA GOLDSTEIN Tiny Encounter Template Text not used by [place] [...] 25, 2024 11:44 AM AMBULATORY - NONE [facility] Jan 31, 2024 09:00 AM AMBULATORY - PS[facility]IATRY [place] ([facility] Jan 31, 2024 09:01 AM AMBULATORY - [facility]RY [place] [facility] Mar 23, 2024 01:01 PM AMBULATORY - NONE [facility] Social History: Smoking Status (Most current) and Tobacco Use (All prior to encounter date) This section includes the most current, and the historical, smoking and tobacco- related health factors from the [facility] where the Encounter took place. Current Smoking Status This section includes the most current smoking, or tobacco-related health factor, from the [place] facility where the Encounter took place. Date/Time Current Smoking Status Comment Facil ity Dec 01, 2017 02:51 PM LIFETIME NON-TOBACCO USER [facility] Tobacco Use History This section includes a history of the smoking, or tobacco-related health factors, that were collected on or before the date of the Encounter. The data comes from the [facility] where the Encounter took place. Date/Time Smoking Status/Tobacco Use Comment F acility Aug 10, 2016 09:08 AM FORMER TOBACCO USER 7Y OR GREATE R [facility] Aug 10, 2016 09:08 AM LIFETIME NON-TOBACCO USER [facility] Sep 06, 2014 08:19 AM FORMER TOBACCO USER 7Y OR GREATE R [facility] Dec 09, 2011 01:28 PM FORMER TOBACCO USER 7Y OR GREATE R [facility] Encounter Notes: All associated encounter notes [...] ROMANA GOLDSTEIN EXP COSIGNER: URGENCY: STATUS: COMPLETED [place] Cognitive Assessment Date Given: 01/11/2024 Clinician: Romana Goldstein Location: [facility] Rn [place]: Prateek Grayson SSN: [id number] : [birth year] ([birth year]) Gender: Male MoCA Score: 8 A score of 26 or greater is considered normal. Questions and Answers 1. Alternating [place] Making. Correct Pattern: 1-A- 2- B- 3- [...] clock. 3A. Clock face must be a [place] with only minor distortion acceptable (e.g., slight imperfection on closing the [place]). Correct [place] 3B. All clock numbers must be present with no additional numbers; numbers must be in the correct order and placed in the approximate quadrants on the clock face; [place] numerals are acceptable; numbers can be placed outside the [place] contour. Incorrect 3C. There must be two [...] Incorrect 9B. Recall VELVET. Incorrect 9C. Recall SY[place]. Incorrect 9D. Recall JORGE. Incorrect 9E. Recall [...] APRN, CNP Signed: 01/11/2024 14:56 ROMANA GOLDSTEIN ([facility])
--- OUTSIDE RECORDS SUMMARY | 2024-05-31 08:06 | XMS_ITS | Encounter Summary ---
Author Name [facility] [place] [facility] [place] Address [address] [place] [address] Care Team Providers Care Property And Equipment Clerk Name Role Phone ROMANA GOLDSTEIN Primary Care [...] PART A Jul 21, 2007 PART A [id number] [phone] PRATEEK COHN PATIENT Selected Encounter This section [...] 25, 2024 11:44 AM AMBULATORY - NONE [facility] Jan 31, 2024 09:00 AM AMBULATORY - PSYCHIATRY MIRI SCOTT ([facility]) Jan 31, 2024 09:01 AM AMBULATORY - PSYCHIATRY [facility] Mar 23, 2024 01:01 PM AMBULATORY - NONE [facility] Vital Signs: All taken on the encounter date This section contains inpatient and outpatient Vital Signs collected on the date of the Encounter. Date/Time Temperature Pulse Blood Pressure Respiratory Rate SP02 Pain Height Weight Body Mass Index Source Jan 11, 2024 01:37 PM 83 131/70 96 [facility] ([facility]) Jan 11, 2024 01:31 PM 97.2 81 146/73 18 96 0 183.8 26 [facility] ([facility]) Social History: Smoking Status (Most current) [...] Yann ferrer Jan 11, 2024 01:00 PM [place]-TOBACCO NEVER USED [place] ([facility]) Tobacco Use History This section includes a history of the smoking, or tobacco-related health factors, that were collected on or before the date of the Encounter. The data comes from the [place] facility where the Encounter took place. Date/Time Smoking Status/Tobacco Use Comment F benny Sep 07, 2021 08:00 AM AL-TOBACCO NEVER USED [place] ([facility]) Encounter Notes: All associated encounter notes This section contains the clinical notes associated to the Encounter. Date/Time Encounter Note(s) Provider Source Jan 11, 2024 01:45 PM PRIMARY CARE NOTE: LOCAL TITLE: CB PROGRESS NOTE-[place] STANDARD TITLE: PRIMARY CARE NOTE DATE OF [...] testing, she reports when was hospitalized that [facility] did testing before they left, and he was a level 4 in dementia. - PCP combed the [facility] charts and no cognitive testing was able [...] type Social History: 1. , lives in [place] with , son, [id number], and 2 grandchildren 2. 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 : 1[employer] [phone] 4. Tobacco: lifetime nonsmoker 5. Alcohol: denies [...] Remote Allergy/ADR Data available for this patient [facility] No Known Allergies Active Medications: + +--------+----- ---+--------+--------+ Medication (Local) New Med Old Dose New Dose Discontd + +--------+----- ---+--------+--------+ CATHETER,SELF-CATH COUDE 14FR COLO#[id number] Directions: USE CATHETER FOUR TIMES A DAY [...] Remote Allergy/ADR Data available for this patient [facility] No Known Allergies Active and Recently Outpatient Medications (including Supplies): Issue Date Status Last Fill Active Outpatient Medications Refills Expiration 1) CATHETER,SELF-CATH COUDE 14FR COLO#[id number] ACTIVE Issu:12-26-23 Qty: 120 for 30 days [...] APRN, CNP Signed: 01/11/2024 14:54 ROMANA GOLDSTEIN [place] ([facility]) Jan 11, 2024 01:36 PM ADVANCE DIRECTIVE: LOCAL TITLE: AD NOTIFICATION AND SCREENING STANDARD TITLE: ADVANCE DIRECTIVE DATE OF NOTE: JAN 11, 2024@13:36 ENTRY DATE: JAN 11, 2024@13:36:48 AUTHOR: THANH BOURNE EXP COSIGNER: URGENCY: STATUS: COMPLETED ADVANCE DIRECTIVE NOTIFICATION: Patient was given written notification of the following rights: 1. Accept or refuse any medical treatment. 2. Complete a durable power of project technician for health care. 3. Complete a living will. ADVANCE DIRECTIVE SCREENING: Does patient have an Advance Directive? The patient does not have an Advance Directive. The patient does not wish to create an Advance Directive for health care. /dexter/ THANH Santos [facility] OEM SALES MANAGER Signed: 01/11/2024 13:37 THANH BOURNE ([facility]) Jan 11, 2024 01:32 PM PRIMARY CARE SIMA ART NOTE: LOCAL TITLE: [...] pressure ulcers, or a wound from a chief medical physicist or Patient is bed-confined or a wheelchair-user or Patient requires assistance to transfer/change position No, Skin Screen is Negative Home Abuse/Violence Screen Is your home free of abuse and violence? Yes MOVE! Program Screen Body Mass Index (BMI)= 25.8 [place]: Collection DT Specimen Test Name Result Units Ref Range 09/07/2021 09:19 BLOOD HEMOGLOBIN A1C 6.0 % 4.0 - 6.0 [place] Hgb A1C: No data available [place] Hgb A1C: No data available Point of Care Hgb A1C: POC HGB A1C____ Outpatient Nutrition Screen Body Mass Index (BMI)= 25.8 [place]: Collection DT Specimen Test Name Result Units Ref Range 09/07/2021 09:19 BLOOD HEMOGLOBIN A1C 6.0 % 4.0 - 6.0 [place] Hgb A1C: No data available [place] Hgb A1C: No data available Point of [...] Not at all Suicide Screen: C-SSRS Screening [place] Suicide Severity Rating Scale (C-SSRS) screener 1. [...] Not worried about housing near future The [place] reports the following: Within the past 12 months, you worried whether your food would run out before you got money to buy more. Never true Within the past 12 months, the food you bought just didn't last and you didn't have money to get more. Never true Food Assistance Programs [facility] Food Assistance [facility] Pneumococcal Conjugate Vaccine (PCV15/PCV20): Refuses PCV [...] due to responses to other questions. 5. [place] numb or detached from people, activities, or your surroundings? Response not required due to responses to other questions. 6. [place] guilty or unable to stop blaming yourself or others for the event(s) or any problems the event(s) may have caused? Response not required due to responses to other questions. 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 The [place]/caregiver was informed that we will continue to ask this screening question every 5 years. They can contact their provider/healthcare team if they have concerns about exposures and would like to be screened sooner. Printed information was offered and provided if desired. /dexter/ THANH Santos [facility] OEM SALES MANAGER Signed: 01/11/2024 13:36 THANH BOURNE ([facility])
--- OUTSIDE RECORDS SUMMARY | 2024-05-31 08:07 | XMS_ITS | Encounter Summary ---
Author Name [facility] [place] [facility] [place] Address [address] [place] [address] Care Team Providers Care Teletype Adjuster Name Role Phone ROMANA GOLDSTEIN Primary Care [...] PART A Jul 21, 2007 PART A [id number] [phone] PRATEEK COHN PATIENT Selected Encounter This section [...] unsp severity, without beh/psych/mood/a nx ED[facility]IN GIRON ([facility]) Plan of Treatment: Future Appointments (+ 6 months) and Future Tests (+/- 45 days) The Plan of Treatment section includes future care activities for the patient from all [place] treatmentfacilities. This section includes future appointments and future orders which are active, pending or scheduled. Future Appointments This section includes appointments that were scheduled to occur 6 months from the date of the Encounter, up to a maximum of 20 appointments. The data comes from all [facility] facilities. Appointment Date/Time Appointment Type Appointme nt Facility Name Jan 25, 2024 11:44 AM AMBULATORY - NONE [facility] Jan 31, 2024 09:00 AM AMBULATORY - PSYCHIATRY MIRI KIRKLANDER ([facility]) Jan 31, 2024 09:01 AM AMBULATORY - PSYCHIATRY [facility] Mar 23, 2024 01:01 PM AMBULATORY - NONE [facility] Vital Signs: All taken on the encounter [...] 18 96 0 183.8 26 [facility] ([facility]) Social History: Smoking Status (Most current) and [...] Yann ferrer Jan 11, 2024 01:00 PM [place]-TOBACCO NEVER USED [place] ([facility]) Tobacco Use History This section includes a history of the smoking, or tobacco-related health factors, that were collected on or before the date of the Encounter. The data comes from the [place] facility where the Encounter took place. Date/Time Smoking Status/Tobacco Use Comment F acjacinta Sep 07, 2021 08:00 AM [place]-TOBACCO NEVER USED [place] ([facility])
--- OUTSIDE RECORDS SUMMARY | 2024-05-31 08:07 | XMS_ITS | Encounter Summary ---
Author Name [facility] [place] Address [address], [place] [address] Care Team Providers Care Client Relations Specialist Name Role Phone ROMANA GOLDSTEIN Primary Care [...] PART A Jul 21, 2007 PART A [id number] [phone] PRATEEK COHN PATIENT Selected Encounter This section includes the information on record at [place] for the Encounter. Date/Time Encounter Type Encounter Description Reason Pro vider Source Jan 31, 2024 09:01 AM Outpatient Encounter PSYCHOLOGICAL TESTING IHE Encounter Template Text not used by [place] Plan of Treatment: Future Appointments (+ 6 months) and Future Tests (+/- 45 days) The Plan of Treatment section includes future care activities for the patient from all [place] treatmentfacilities. This section includes future appointments and future orders which are active, pending or scheduled. Future Appointments This section includes appointments that were scheduled to occur 6 months from the date of the Encounter, up to a maximum of 20 appointments. The data comes from all [place] treatment facilities. Appointment Date/Time Appointment Type Appointme nt Facility Name Mar 23, 2024 01:01 PM [facility] NONE [facility] Social History: Smoking Status (Most current) and Tobacco Use (All prior to encounter date) This section includes the most current, and the historical, smoking and tobacco- related health factors from the [place] facility where the Encounter took place. Current Smoking Status This section includes the most current smoking, or tobacco-related health factor, from the [place] facility where the Encounter took place. Date/Time Current Smoking Status Comment Facil ity Dec 01, 2017 02:51 PM LIFETIME NON-TOBACCO USER [facility] Tobacco Use History This section includes a history of the smoking, or tobacco-related health factors, that were collected on or before the date of the Encounter. The data comes from the [place] facility where the Encounter took place. Date/Time Smoking Status/Tobacco Use Comment F acility Aug 10, 2016 09:08 AM FORMER TOBACCO USER 7Y OR GREATE R [facility] Aug 10, 2016 09:08 AM LIFETIME NON-TOBACCO USER [facility] Sep 06, 2014 08:19 AM FORMER TOBACCO USER 7Y OR GREATE R [facility] Dec 09, 2011 01:28 PM FORMER TOBACCO USER 7Y OR GREATE R [facility] Encounter Notes: All associated encounter notes This section contains the clinical notes associated to the Encounter. Date/Time Encounter Note(s) Provider Source Jan 31, 2024 09:00 AM NO SHOW NOTE: LOCAL TITLE: NO SHOW/CANCELLATION CLINIC NOTE STANDARD TITLE: NO SHOW NOTE DATE OF NOTE: JAN 31, 2024@09:00 ENTRY DATE: JAN 31, 2024@09:44:05 AUTHOR: KAIN PELAEZ EXP COSIGNER: URGENCY: STATUS: COMPLETED not seen for scheduled appointment due to: No Show [place] did not present for neuropsychology appointment. Called and left HIPAA-compliant message. [place]'s Lisbeth returned my call. She stated that they were scheduled through community care for a neuropsych evaluation 02/05 to go closer to home, and her understanding was that today's appointment had been cancelled. She reported that she is considering cancelling the upcoming neuropsychology appointment as the [place] is showing striking improvements physically and cognitively and she would prefer to hold off on comprehensive assessment until further stabilization has occurred. This was discussed in detail and I agreed that this is a reasonable plan. She denied any MH concerns about the [place]. Appointment Rescheduled: No Consult will be cancelled [...] STAFF NEUROPSYCHOLIGST Signed: 01/31/2024 09:48 KAIN PELAEZ [facility]
--- OUTSIDE RECORDS SUMMARY | 2024-05-31 08:07 | XMS_ITS | Encounter Summary ---
Author Name [facility] [place] Address [address] [place] [address] Care Team Providers Care Nuclear Spectroscopist Name Role Phone ROMANA GOLDSTEIN Primary Care [...] PART A Jul 21, 2007 PART A [id number] 18A [phone] PRATEEK COHN PATIENT Selected Encounter This section includes the information on record at [place] for the Encounter. Date/Time Encounter Type Encounter Description Reason Provider Source Jan 25, 2024 11:44 AM Outpatient Encounter ADMIN PAT ACTIVTIES (MASNONCT) ELIJAH BURRELL Tiny Encounter Template Text not used by [place] Plan of Treatment: Future Appointments (+ 6 [...] 20 appointments. The data comes from all [place] treatment facilities. Appointment Date/Time Appointment Type Appointme nt Facility Name Jan 31, 2024 09:00 AM AMBULATORY - PSYCHIATRY [facility] ([facility]) Jan 31, 2024 09:01 AM AMBULATORY - [place]CHIATRY [place] [facility] Mar 23, 2024 01:01 PM AMBULATORY - NONE [facility] Social History: Smoking Status (Most current) and Tobacco Use (All prior to encounter date) This section includes the most current, and the historical, smoking and tobacco- related health factors from the [place] facility where the Encounter took place. Current Smoking Status This section includes the most current smoking, or tobacco-related health factor, from the [place] facility where the Encounter took place. Date/Time Current Smoking Status Comment Facil ity Dec 01, 2017 02:51 PM LIFETIME NON-TOBACCO USER [facility] Tobacco Use History This section includes a history of the smoking, or tobacco-related health factors, that were collected on or before the date of the Encounter. The data comes from the [place] facility where the Encounter took place. Date/Time Smoking Status/Tobacco Use Comment F acility Aug 10, 2016 09:08 AM FORMER TOBACCO USER 7Y OR GREATE R [facility] Aug 10, 2016 09:08 AM LIFETIME NON-TOBACCO USER [facility] Sep 06, 2014 08:19 AM FORMER TOBACCO USER 7Y OR GREATE R [facility] Dec 09, 2011 01:28 PM FORMER TOBACCO USER 7Y OR [facility] R [facility] Encounter Notes: All associated encounter notes This section contains the clinical notes associated to the Encounter. Date/Time Encounter Note(s) Provider Source Jan 26, 2024 11:58 AM ADDENDUM: LOCAL TITLE: Addendum STANDARD TITLE: ADDENDUM DATE OF NOTE: JAN 26, 2024@11:58:12 ENTRY DATE: JAN 26, 2024@11:58:13 AUTHOR: CASANDRA MUSE EXP COSIGNER: URGENCY: STATUS: COMPLETED [place] was seen in a Community ED. Records uploaded to chart. Please review and follow up as appropriate. /dexter/ CASANDRA MUSE ADVANCED MSA Signed: 01/26/2024 11:58 Receipt Acknowledged By: 01/27/2024 12:23 /dexter/ Garrett Browning RN [facility] for DANA AGUIRRE 01/26/2024 12:02 /es/ Romana Goldstein APRN, IMMUNOCHEMIST --- Original Document --- 01/23/24 [facility] PRESENTING CARE COORD PLAN NOTE: Emergency Notification Intake Date Presenting to the Facility: Jan Method of Contact: Submitted to Centralized Call Center Notification ID: [id number] [facility] Referral #: [facility] Name: Hospital: [place] Address: [address] City: [place] State: [place] Zip Code: [address] Phone : [facility] Point of Contact: Name: Eunice Valencia RN Chief complaint: missed surgical inna (3) need to be removed Primary Diagnosis: Disposition Unknown at time of intake note entry /es/ JAYDEN JESUS MICRO COMPUTER SPECIALIST (AOD) Signed: 01/25/2024 11:46 Receipt Acknowledged By: 01/25/2024 14:14 /es/ Oziel Espinosa MA, PHN, RN-BC cardiac monitor [employer] for ELIJAH Perez ASHANTI 01/25/2024 ADDENDUM STATUS: COMPLETED Forwarding per social split to the surrogate CCUM RN for continuity of care. /es/ Oziel Espinosa MA, PHN, RN-BC cardiac monitor [employer] Signed: 01/25/2024 14:14 Receipt Acknowledged By: 01/26/2024 07:49 /es/ OSWALDO BOTELLO [facility] senior project architect 01/26/2024 ADDENDUM STATUS: COMPLETED Records requested and will be uploaded via Joost when received. /es/ ELIZABETH LUCERO .JaelAdvanced Military Analyst Signed: 01/26/2024 09:24 Receipt Acknowledged By: 01/27/2024 12:23 /es/ Garrett Browning RN [facility] for DANA BARROWS 01/23/2024 ADDENDUM STATUS: COMPLETED VistA Imaging Scanned Document - Addendum. ED record 01.23.24 [facility] SCANNED DOCUMENT SIGNATURE NOT REQUIRED Electronically Filed: 01/26/2024 by: CASANDRA MUSE ADVANCED [facility] 01/27/2024 ADDENDUM STATUS: UNSIGNED You may not VIEW this UNSIGNED Addendum. CASANDRA MUSE [facility] Jan 26, 2024 09:23 AM ADDENDUM: LOCAL TITLE: Addendum STANDARD TITLE: ADDENDUM DATE OF NOTE: JAN 26, 2024@09:23:56 ENTRY DATE: JAN 26, 2024@09:23:57 AUTHOR: ELIZABETH LUCERO EXP COSIGNER: URGENCY: STATUS: COMPLETED Records requested and will be uploaded via Joost when received. /es/ ELIZABETH LUCERO ...Advanced Military Analyst Signed: 01/26/2024 09:24 Receipt Acknowledged By: 01/27/2024 12:23 /es/ Garrett Browning RN [facility] for DANA AGUIRRE --- Original Document --- 01/23/24 [facility] SELF PRESENTING CARE COORD PLAN NOTE: Emergency Notification Intake Date Presenting to the Facility: Jan Method of Contact: Submitted to Centralized Call Center Notification ID: [id number] [facility] Referral #: [facility] Name: Hospital: [place] Address: [address] City: [place] State: [place] Zip Code: [address] Phone : [facility] Facility Point of Contact: Name: Eunice Valencia RN Chief complaint: missed surgical inna (3) need to be removed Primary Diagnosis: Disposition Unknown at time of intake note entry /es/ JAYDEN JESUS MICRO COMPUTER SPECIALIST (AOD) Signed: 01/25/2024 11:46 Receipt Acknowledged By: 01/25/2024 14:14 /es/ Oziel Espinosa MA, PHN, RN-BC cardiac monitor [employer] for ELIJAH BURRELL 01/25/2024 ADDENDUM STATUS: COMPLETED Forwarding per social split to the surrogate CCUM RN for continuity of care. /dexter/ Oziel Espinosa MA, PHN, RN-BC cardiac monitor [employer] Signed: 01/25/2024 14:14 Receipt Acknowledged By: 01/26/2024 07:49 /adriano BOTELLO [facility] senior project architect 01/23/2024 ADDENDUM STATUS: COMPLETED VistA Imaging Scanned Document - Addendum. ED record 8.5.24 [facility] SCANNED DOCUMENT SIGNATURE NOT REQUIRED Electronically Filed: 01/26/2024 by: CASANDRA BARRERA MSA 01/26/2024 ADDENDUM STATUS: COMPLETED was seen in a Community ED. Records uploaded to chart. Please review and follow up as appropriate. /dexter/ CASANDRA MUSE ADVANCED MSA Signed: 01/26/2024 11:58 Receipt Acknowledged By: 01/27/2024 12:23 /es/ Garrett rBowning RN [facility] for DANA AGUIRRE 01/26/2024 12:02 /es/ Romana Goldstein APRN, IMMUNOCHEMIST ELIZABETH LUCERO [facility] Jan 25, 2024 02:14 PM ADDENDUM: LOCAL TITLE: Addendum STANDARD TITLE: ADDENDUM DATE OF NOTE: JAN 25, 2024@14:14:01 ENTRY DATE: JAN 25, 2024@14:14:03 AUTHOR: OZIEL ESPINOSA EXP COSIGNER: URGENCY: STATUS: COMPLETED Forwarding per social split to the surrogate CCUM RN for continuity of care. /dexter/ Oziel Espinosa MA, PHN, RN-BC cardiac monitor [employer] Signed: 01/25/2024 14:14 Receipt Acknowledged By: 01/26/2024 07:49 /adriano BOTELLO Community Care senior project architect --- Original Document --- 01/23/24 [facility] SELF PRESENTING CARE COORD PLAN NOTE: Emergency Notification Intake Date Presenting to the Facility: Jan Method of Contact: Submitted to Centralized Call Center Notification ID: [id number] [facility] Referral #: [facility] Name: Hospital: [place] Address: [address]: [place] State: [place] Zip Code: [address] Phone : [facility] Point of Contact: Name: Eunice Valencia RN Chief complaint: missed surgical inna (3) need to be removed Primary Diagnosis: Disposition Unknown at time of intake note entry /dexter/ JAYDEN JESUS MICRO COMPUTER SPECIALIST (AOD) Signed: 01/25/2024 11:46 Receipt Acknowledged By: 01/25/2024 14:14 /dexter/ Oziel Espinosa MA, PHN, RN-BC cardiac monitor [employer] for OZIEL ESTES [facility] Jan 23, 2024 11:44 AM NONVA NOTE: [...] Submitted to Centralized Call Center Notification ID: [id number] [facility] Referral #: [facility] Name: Hospital: [place] Address: [address] City: [place] State: [place] Zip Code: [address] Phone : [facility] Point of Contact: Name: Eunice Valencia RN Chief complaint: missed surgical inna (3) need to be removed Primary Diagnosis: Disposition Unknown at time of intake note entry /dexter/ JAYDEN JESUS MICRO COMPUTER SPECIALIST (AOD) Signed: 01/25/2024 11:46 Receipt Acknowledged By: 01/25/2024 14:14 /dexter/ Oziel Espinosa MA, PHN, RN-BC cardiac monitor [employer] for ELIJAH BURRELL 01/25/2024 ADDENDUM STATUS: COMPLETED Forwarding per social split to the surrogate CCUM RN for continuity of care. /es/ Oziel Espinosa MA, PHN, RN-BC cardiac monitor [employer] Signed: 01/25/2024 14:14 Receipt Acknowledged By: 01/26/2024 07:49 /es/ OSWALDO BOTELLO Community [facility] senior project architect 01/26/2024 ADDENDUM STATUS: COMPLETED Records requested and will be uploaded via Epsi when received. /es/ ELIZABETH LUCERO ...Advanced Military Analyst Signed: 01/26/2024 09:24 Receipt Acknowledged By: 01/27/2024 12:23 /dexter/ Garrett Browning RN [facility] for DANA AGUIRRE 01/23/2024 ADDENDUM STATUS: COMPLETED VistA Imaging Scanned Document - Addendum. ED record 8.5.24 [facility] SCANNED DOCUMENT SIGNATURE NOT REQUIRED Electronically Filed: 01/26/2024 by: CASANDRA BARRERA MSA 01/26/2024 ADDENDUM STATUS: COMPLETED was seen in a Community ED. Records uploaded to chart. Please review and follow up as appropriate. /es/ CASANDRA BARRERA MSA Signed: 01/26/2024 11:58 Receipt Acknowledged By: 01/27/2024 12:23 /dexter/ Garrett Browning RN [facility] for DANA GAUIRRE 01/26/2024 12:02 /es/ Romana Goldstein APRN, CNP 01/27/2024 ADDENDUM STATUS: COMPLETED ED note in [place] reviewed. Per note, 3 inna removed from R hip w/o concern. No s/s of infection noted. It does not appear needs f/u from this ER visit at this time. /dexter/ Garrett Browning RN [facility] Signed: 01/27/2024 12:26 JAYDEN JESUS [facility]
[2024-05-31 08:27] LABS: Lactate* 0.9 mmol/L (0.5-1.9)
[2024-05-31 08:43] LABS: Chloride* 107 mmol/L (96-114); Potassium* 3.8 mmol/L (3.6-5.1); Sodium* 140 mmol/L (135-149)
[2024-05-31 08:45] LABS: Creatinine* 0.9 mg/dL (0.5-1.5); Estimated Glomerular Filt Rate 86 ml/min
[2024-05-31 08:46] LABS: Anion Gap 5 mEq/L (7-15); Blood Urea Nitrogen* 26 mg/dL (7-30); Calcium* 8.8 mg/dL (8.4-10.6); Carbon Dioxide* 28 mmol/L (20-32); Glucose* 104 mg/dL (60-115)
[2024-05-31 08:47] LABS: Basophils Percent Auto 0.3 % (0.0-3.0); Eosinophils Percent Auto 0.3 % (0.0-7.0); Hematocrit 45.2 % (37.0-53.0); Hemoglobin* 14.6 gm/dL (13.5-17.5); Immature Granulocytes Pct Auto 1.1 %; Lymphocytes Percent Auto 19.2 % (20-44); Mean Corpuscular HGB Conc 32 gm/dL (32-36); Mean Corpuscular Hemoglobin 30 pg (26-34); Mean Corpuscular Volume 93 fL (80-100); Monocytes Percent Auto 12.6 % (0.0-11.0); Neutrophils Percent Auto 66.5 % (42.0-72.0); Platelet Count* 169 K/uL (140-440); RDW Coefficient of Variation % 14.3 % (11.5-15.5); Red Blood Count 4.88 m/uL (4.30-5.90)
[2024-05-31 08:51] LABS: Slide Review Reflex No
[2024-05-31 08:52] LABS: Ethanol* < 0.00 % (0.01-0.03)
[2024-05-31 09:14] LABS: PCR FLU A Negative PCR FLU A (Negative); PCR FLU B Negative PCR FLU B (Negative); PCR RSV Negative PCR RSV (Negative); SARS PCR* Negative SARS-CoV-2 (Negative)
[2024-05-31 09:59] LABS: Appearance Urine Cloudy (Clear); Bilirubin Urine Negative (Negative); Blood Urine 2+ (Negative); Color Urine Yellow (Yellow); Glucose Urine Negative (Negative); Ketones Urine Negative (Negative); Leukocyte Esterase Urine Trace (Negative); Nitrite Urine Positive (Negative); Protein Urine Negative (Negative); Urobilinogen Urine 0.2 (0.2-1.0)
[2024-05-31 10:26] LABS: Amphetamine Screen Urine Negative (Negative); Barbiturate Screen Urine Negative (Negative); Benzodiazepines Screen Urine Negative (Negative); Cannabinoid Screen Urine Negative (Negative); Cocaine Screen Urine Negative (Negative); Methadone Screen Urine Negative (Negative); Methamphetamines Screen Urine Negative (Negative); Opiate Screen Urine Negative (Negative); Oxycodone Screen Urine Negative (Negative); Phencyclidine Screen Urine Negative (Negative); Tricyclic Antidepressant Urine Negative (Negative)
[2024-05-31 10:52] LABS: Bacteria Urine Many; Squamous Epithelial Cell Urine Few (None-Few); WBC Urine 25-50 (0-5)
[2024-05-31] MEDS: cephALEXin 500 MG CAPSULE PO (11:18)
--- NOTE | 2024-05-31 11:41 | PC.SOCIAL ---
Social work: At MD request, called pt's Joseline Barajas) regarding discharge plan [phone]. states pt was diagnosed with stage 4 dementia by a neuropsychologist at the [facility] in November when he was hospitalized after a fall. states she and her son, Piero, who lives in [place] have been talking for a long time about pt and going [place] live with [place] with his family who can assist with care and supervision. states they are not interested in placement in a memory care facility. states she believes her son could come tomorrow to pick pt up to move him to [place] and is requesting pt be kept at the hospital tonight as she is unable to provide supervision and keep him safe at home due to his increased confusion and paranoia. states he was accusing her of stealing his money this morning which he has not done before. confirmed that pt left the home while she was asleep and she was unaware he had left until she was contacted by the police. With 's permission, called son Piero, who confirmed he has wanted pt to make the move to his home for a long time and that he is able to come to [place] tomorrow to pick pt up from the hospital no later than 2:00pm and will plan to bring him back to his home after discharge. Both and son think that pt will come voluntarily with the son as he trusts his son and will be happy to see him. Family plans to tell pt this is a visit and will deal with telling him it is a permanent move after he has settles in at his son's home. requested hospital staff wait for son to arrive before informing pt of plan for him to discharge to the son's home. Son and are in agreement with this plan for discharge from the hospital tomorrow early afternoon. day worker to follow up as needed.
--- NOTE | 2024-05-31 12:36 | PM.IMHP1 ---
Hospitalist- H&P: HPI History of Present Illness Date Seen: 05/31/24 Chief complaint: confusion Narrative: Carlos Alberto Grayson is a 83 year old male with a history of moderate dementia who has been living at home with his and wandered outside this morning while his was sleeping. He ago tells me that he has an infection and has some pain when he urinates, but does not know much more about it. He says he is forgetful at times but denies confusion. I spoke with his , Joseline, over the phone who gave me history. She tells me that he has been seeing a neurologist at [facility] who diagnosed him with ?stage IV dementia.? He had a hospitalization earlier this year during which was confused, agitated, and sundowning. He was given Seroquel and ultimately lorazepam, the latter of which seemed to work better. He does not take any medications at home. He had a urinary tract infection about 2 months ago which led to him feeling dizzy and weak, but that resolved with treatment of the urinary tract infection. He was treated at that time with nitrofurantoin. In the last 1-2 months his dementia has been getting worse and he has had more mood swings and paranoia. His tells me that at times he will be very loving toward her and then the next minute he is paranoid and blaming her for things. For example on Tuesday he he told a gnosticist group, I just want to praise the Lord, I have fallen in love with my all over again.? Yesterday he started telling his that he thought she was taking his money and that she was keeping hidden bank accounts. She tried to reassure him that there is only 1 bank account and that there is no money that is unaccounted for. This morning he snuck out past her sleeping in a recliner by the stairs (he was up stairs in the bedroom sleeping), and then was flaking down cars in the street telling them that she would had kidnapped him. She was woken up by the police knocking on her door asking if she knew where he was, because they had found him flaking down the cars. Review of Systems Status of ROS: Reports: 10 or more systems reviewed and unremarkable except as noted in History and below PFSH PFSH Medical History (Updated 05/31/24 @ 13:24 by Lyla Thakkar MD) Carotid artery stenosis ?I65.29 - Occlusion and stenosis of unspecified carotid artery (ICD-10) Traumatic brain injury ?S06.9XAA - Unspecified intracranial injury with loss of consciousness status unknown, initial encounter (ICD-10) Sensorineural hearing loss ?H90.5 - Unspecified sensorineural hearing loss (ICD-10) Lumbar degenerative disc disease ?M51.36 - Other intervertebral disc degeneration, lumbar region (ICD-10) Retention of urine (09/03/21) ?R33.9 - Retention of urine, unspecified (ICD-10) Family History (Updated 05/31/24 @ 12:56 by Lyla Thakkar MD) Other Dementia Social History (Updated 05/31/24 @ 13:00 by Lyla Thakkar MD) Narrative: . Lives at home with . noted that their son, who lives in [place], is driving up to take Carlos Alberto home with him to live. Carlos Alberto denies tobacco or alcohol use. says he is DNR/DNI. What is your current living situation?: I presently have a place to live Problems where you live: no known problems Problems where you live details: na In the past 12 months, utilities in danger of being shut off: unable to answer In the past 12 mos, have been you worried that your food would run out before you had money to buy more?: unable to answer In the past 12 mos, the food you bought just didn't last and you didn't have money to buy more?: unable to answer Highest level of school completed/degree received: Associate degree: occupational, technical, vocational program Smoking Status: Never smoker Do you use any of these nicotine containing products: None Second hand tobacco smoke exposure: Yes How often do you have a drink containing alcohol: never How often do you have six or more drinks on one occasion: Never AUDIT-C Alcohol total score: 0 Non-prescribed substance use: denies use How often does anyone, including family, friends and others, physically hurt you: unable to answer How often does anyone, including family, friends and others, insult or talk down to you: unable to answer How often does anyone, including family, friends and others, threaten you with harm: unable to answer How often does anyone, including family, friends and others, scream or curse at you: unable to answer service: Yes Meds Home Medications and Allergies Home Medications ?Medication ?Instructions ?Recorded ?Confirmed ?Type No Known Home Medications 05/31/24 05/31/24 History Allergies Allergy/AdvReac Type Severity Reaction Status Date / Time No Known Drug Allergies Allergy Verified 05/31/24 08:05 Exam Narrative: Exam Narrative: General: No acute distress. Awake alert oriented to self and some of the situation. He knows it is winter. He is appropriately dressed for winter in long underwear, of thick heavy flannel shirt, a coat, jeans over the long underwear, and boots. HEENT: Normocephalic atraumatic, pupils equally round and reactive to light and accommodation. Oropharynx clear. Mucous membranes are moist. No cervical lymphadenopathy, thyromegaly or carotid bruits. No JVD. Cardiovascular: Regular rate and rhythm. No murmurs, gallops, or rubs. Chest: No increased work of breathing. Clear to auscultation bilaterally. No crackles or wheezes. Abdomen: Bowel sounds present. Soft, nondistended, nontender. No hepatosplenomegaly or masses. Extremities: No edema, no cyanosis or clubbing. Skin: No jaundice, no pallor, no rashes. Neuro: Other than impaired memory as above, otherwise grossly intact. No focal deficits. Const: Vital Signs, click to edit/add: Vital Signs - 24 hr 05/31/24 07:41 05/31/24 11:19 05/31/24 12:07 Temperature 99.0 F 99.0 F Pulse Rate [Right Pulse Oximeter] 76 88 88 Pulse Rate [Right Radial] Respiratory Rate 18 18 18 Blood Pressure [Le ft Arm] Blood Pressure [Ri ght Upper Arm] 190/88 H 138/69 138/69 Pulse Oximetry 97 98 Oxygen Delivery Me thod Room Air Room Air 05/31/24 12:23 05/31/24 12:25 Temperature 97.5 F L 97.5 F L Pulse Rate [Right Pulse Oximeter] Pulse Rate [Right Radial] 72 72 Respiratory Rate 20 20 Blood Pressure [Le ft Arm] 144/80 H 144/80 H Blood Pressure [Ri ght Upper Arm] Pulse Oximetry 99 99 Oxygen Delivery Me thod Room Air Room Air Hospitalist - H&P: Result Labs Labs: Short CBC 05/31/24 Range/Units 08:20 WBC 3.80 L (4.50-11.00) K/uL Hgb 14.6 (13.5-17.5) gm/dL Hct 45.2 (37.0-53.0) % Plt Count 169 (140-440) K/uL BMP 05/31/24 08:20 Sodium 140 Potassium 3.8 Chloride 107 Carbon Dioxide 28 BUN 26 Creatinine 0.9 Glucose 104 Calcium 8.8 Urine 05/31/24 Range/Units 09:27 Urine Color Yellow (Yellow) Urine Appearance Cloudy A (Clear) Urine pH 6.0 (5.0-8.5) Ur Specific [place] 1.020 (1.000-1.030) Urine Protein Negative (Negative) Urine Glucose (UA) Negative (Negative) Ordering Physician: Isa Hayes M.D. Date of Service: 05/31/24 Procedure(s): CT head/brain wo con Accession Number(s): [id number] cc: Provider,Not a Local; Isa Hayes M.D.~ For Patients: As a result of the Cures Act, medical imaging exams and procedure reports are released immediately into your electronic medical record. You may view this report before your referring provider. If you have questions, please contact your health care provider. INDICATION: Altered mental status COMPARISON: March 22, 2024 TECHNIQUE: CT examination of the head was performed as axial sections without intravenous contrast. Images were obtained from the vertex of the skull through the skull base. Please note that all CT scans at this facility use dose modulation, iterative reconstruction, and/or weight-based dosing when appropriate to reduce radiation dose to as low as reasonably achievable. FINDINGS: The brain shows no sign of mass lesion, mass effect, hemorrhage, or edema. There are involutional changes. There is mild cortical atrophy and there is mild white matter disease. There is no hydrocephalus. The appearance is stable. The visualized portions of the orbits are normal in appearance. The osseous structures are normal in appearance with no sign of abnormality in the skull base or calvarium. IMPRESSION: Age-appropriate involutional changes similar in appearance to the prior study. No acute focal findings. Please note that all CT scans at this facility use dose modulation, iterative reconstruction, and/or weight-based dosing when appropriate to reduce radiation dose to as low as reasonably achievable. Dictated by Alexi Lackey MD @ 05/31/2024 8:13:27 AM (Electronically Signed) Assessment and Plan Assessment and plan (1) Urinary tract infection: Problem comment: - had UTI 2 months ago (dizzy, falling), treated with nitrofurantoin - was given a dose of cephalexin orally in the emergency department. I note that his creatinine is 0.9. Does not have any allergies to medications. Urine cultures pending. Will start ciprofloxacin 500 mg p.o. b.i.d. for 5 days. Status: Acute (2) Wandering: Status: Acute (3) Dementia: Problem comment: - sees neurology at [facility], Dr. Coello, who diagnosed him with stage 4 dementia - worse dementia in the last 1-2 months, more forgetful, more paranoia, mood swings - will consult OT to do [place] Status: Chronic Plan is concerned about taking patient home since he is not gout past her while she was sleeping and she is unable to care for him 10/01 when he is paranoid and sneaking out while she is sleeping. Their son is driving up from [place] and will pick him up from the hospital tomorrow to take him back to [place] where the patient's son and [id number] along with their children will watch over him.
[2024-05-31] MEDS: CIPROFLOXACIN 500 MG TABLET PO ×2 (13:48→23:02)
--- NOTE | 2024-05-31 17:19 | PC.NURSE ---
Nursing was filling out his personal belonging sheet. Patient asked why are wanting to know all this information. Nursing told him we want to make sure when he leaves he will go home with everything he came in with. Later patient asked what's going to happen with him. Nursing told him he was going to sleep here tonight and tomorrow the nurse and Doctors will have a meeting and talk and make a plan. Then asked if we had a preacher he could talk too. I told him we can find one for him to talk to.
--- NOTE | 2024-05-31 23:49 | PC.NURSE ---
Up Indep with 1:1 NA to prevent elopement. Pleasant and cooperative. Alert to self. Ate well. Skin intact. VSS. Took Abx with snack as HS.
--- NOTE | 2024-06-01 06:39 | PC.NURSE ---
Shift summary: Pt has been A&O to self. He slept majority of the night with no behaviors or attempts to elope. Up ad carlos to the bathroom. No IV access. Restful vitals overnight.?Denies pain, nausea and dizziness.
[2024-06-01 07:30] VITALS: BP 151/72; PULSE 74; RESP 16; TEMP 36.7; O2SAT 96
[2024-06-01] MEDS: CIPROFLOXACIN 500 MG TABLET PO (08:59)
--- NOTE | 2024-06-01 09:47 | P.DS_ITS ---
DS: Providers Provider Time Seen by Provider: 08:55 Date Seen: 06/01/24 Date of admission: 05/31/24 12:14 Primary care physician: Not a Local Provider Admitting Clinician: Lyla Thakkar MD Consults: 05/31/24 13:24 Consult to Occupational Therapy [CONS] Routine Comment: Reason(s) for OT Consult:: Evaluate and Treat Any Restrictions?:: No Restrictions Comment: MOCA 05/31/24 13:41 Consult to Corporate Accounting Manager [CONS] Routine Comment: Reason for Consult:: Discharge Planning Needs Attending Physician on discharge: Lyla Thakkar MD Date of Discharge: 06/01/24 DS: Diagnosis Discharge Diagnosis (1) Urinary tract infection: Status: Acute Problem details: - Mar 2024 - had UTI (dizzy, falling), treated with nitrofurantoin - 05/30 was given a dose of cephalexin orally in the emergency department. I note that his creatinine is 0.9. Does not have any allergies to medications. Urine cultures pending. Will start ciprofloxacin 500 mg p.o. b.i.d. for 5 days. - 05/31 stable. UC growing G- rods. Continue cipro po x 5 days total. D/c home with son when he arrives today (planning 2-3 pm) (2) Wandering: Status: Acute (3) Dementia: Status: Chronic Problem details: - sees neurology at [facility], Dr. Coello, who diagnosed him with stage 4 dementia - worse dementia in the last 1-2 months, more forgetful, more paranoia, mood swings - will consult OT to do [place] DS: Summary Hospital Course Hospital Course: Per H&P: Carlos Alberto Grayson is a 83 year old male with a history of moderate dementia who has been living at home with his and wandered outside this morning while his was sleeping. He ago tells me that he has an infection and has some pain when he urinates, but does not know much more about it. He says he is forgetful at times but denies confusion. I spoke with his , Joseline, over the phone who gave me history. She tells me that he has been seeing a neurologist at [facility] who diagnosed him with ?stage IV dementia.? He had a hospitalization earlier this year during which was confused, agitated, and sundowning. He was given Seroquel and ultimately lorazepam, the latter of which seemed to work better. He does not take any medications at home. He had a urinary tract infection about 2 months ago which led to him feeling dizzy and weak, but that resolved with treatment of the urinary tract infection. He was treated at that time with nitrofurantoin. In the last 1-2 months his dementia has been getting worse and he has had more mood swings and paranoia. His tells me that at times he will be very loving toward her and then the next minute he is paranoid and blaming her for things. For example on Tuesday he he told a catholic group, I just want to praise the Lord, I have fallen in love with my all over again.? Yesterday he started telling his that he thought she was taking his money and that she was keeping hidden bank accounts. She tried to reassure him that there is only 1 bank account and that there is no money that is unaccounted for. This morning he snuck out past her sleeping in a recliner by the stairs (he was up stairs in the bedroom sleeping), and then was flaking down cars in the street telling them that she would had kidnapped him. She was woken up by the police knocking on her door asking if she knew where he was, because they had found him flaking down the cars. Carlos Alberto remains stable overnight, occasionally initially refusing medication for urinary tract infection until he is reminded why he is here and then he takes the medication. He is pleasant and has had no adverse a behaviors here or attempts to leave. He will be discharged into the care of his son today. Time Spent with Patient Time attestation: Total time spent providing and/or coordinating discharge services: Exam Narrative: Exam Narrative: General: No acute distress. Awake alert oriented to self. He initially refused the antibiotic the nurse brought in because he forgot he had a UTI. He is dressed in the same clothes as yesterday. Cardiovascular: Regular rate and rhythm. No murmurs, gallops, or rubs. Chest: No increased work of breathing. Clear to auscultation bilaterally. No crackles or wheezes. Abdomen: Bowel sounds present. Soft, nondistended, nontender. Const: Vital Signs, click to edit/add: Vital Signs - 24 hr 12/12/24 11:19 05/31/24 12:07 05/31/24 12:23 Temperature 99.0 F 97.5 F L Pulse Rate [Pulse Oximeter] Pulse Rate [Right Pulse Oximeter] 88 88 Pulse Rate [Right Radial] 72 Respiratory Rate 18 18 20 Blood Pressure [Le ft Arm] 144/80 H Blood Pressure [Ri ght Arm] Blood Pressure [Ri ght Upper Arm] 138/69 138/69 Pulse Oximetry 98 99 Oxygen Delivery Me thod Room Air Room Air 05/31/24 12:25 05/31/24 12:25 05/31/24 15:00 Temperature 97.5 F L Pulse Rate [Pulse Oximeter] Pulse Rate [Right Pulse Oximeter] Pulse Rate [Right Radial] 72 Respiratory Rate 20 16 Blood Pressure [Le ft Arm] 144/80 H Blood Pressure [Ri ght Arm] Blood Pressure [Ri ght Upper Arm] Pulse Oximetry 99 95 Oxygen Delivery Me thod Room Air Room Air 05/31/24 15:30 05/31/24 22:50 05/31/24 23:00 Temperature 98.6 F 98.6 F Pulse Rate [Pulse Oximeter] Pulse Rate [Right Pulse Oximeter] Pulse Rate [Right Radial] 81 74 Respiratory Rate 18 18 18 Blood Pressure [Le ft Arm] 157/77 H Blood Pressure [Ri ght Arm] 114/47 L Blood Pressure [Ri ght Upper Arm] Pulse Oximetry 97 96 Oxygen Delivery Me thod Room Air 06/01/24 07:30 Temperature 98.1 F Pulse Rate [Pulse Oximeter] 74 Pulse Rate [Right Pulse Oximeter] Pulse Rate [Right Radial] Respiratory Rate 16 Blood Pressure [Le ft Arm] 151/72 H Blood Pressure [Ri ght Arm] Blood Pressure [Ri ght Upper Arm] Pulse Oximetry 96 Oxygen Delivery Me thod Room Air DS: Data Data Completed and Pending Completed studies during hospitalization: Ordering Physician: Isa Hayes M.D. Date of Service: 05/31/24 Procedure(s): CT head/brain wo con Accession Number(s): [id number] cc: Provider,Not a Local; Isa Hayes M.D.~ For Patients: As a result of the Cures Act, medical imaging exams and procedure reports are released immediately into your electronic medical record. You may view this report before your referring provider. If you have questions, please contact your health care provider. INDICATION: Altered mental status COMPARISON: March 22, 2024 TECHNIQUE: CT examination of the head was performed as axial sections without intravenous contrast. Images were obtained from the vertex of the skull through the skull base. Please note that all CT scans at this facility use dose modulation, iterative reconstruction, and/or weight-based dosing when appropriate to reduce radiation dose to as low as reasonably achievable. FINDINGS: The brain shows no sign of mass lesion, mass effect, hemorrhage, or edema. There are involutional changes. There is mild cortical atrophy and there is mild white matter disease. There is no hydrocephalus. The appearance is stable. The visualized portions of the orbits are normal in appearance. The osseous structures are normal in appearance with no sign of abnormality in the skull base or calvarium. IMPRESSION: Age-appropriate involutional changes similar in appearance to the prior study. No acute focal findings. Please note that all CT scans at this facility use dose modulation, iterative reconstruction, and/or weight-based dosing when appropriate to reduce radiation dose to as low as reasonably achievable. Dictated by Alexi Lackey MD @ 05/31/2024 8:13:27 AM (Electronically Signed) Labs on day of discharge: Labs from last 24 hours 05/31/24 09:27 Urine Color Yellow Urine Appearance Cloudy A Urine pH 6.0 Ur Specific [place] 1.020 Urine Protein Negative Urine Glucose (UA) Negative Urine Ketones Negative Urine Blood 2+ A Urine Nitrite Positive A Urine Bilirubin Negative Urine Urobilinogen 0.2 Ur Leukocyte Esterase Trace A Urine RBC 10-25 A Urine WBC 25-50 A Ur Squamous Epith Cells Few Urine Bacteria Many A Urine Opiates Screen Negative Ur Oxycodone Screen Negative Urine Methadone Screen Negative Ur Barbiturates Screen Negative U Tricyclic Antidepress Negative Ur Phencyclidine Scrn Negative Ur Amphetamines Screen Negative U Methamphetamines Scrn Negative U Benzodiazepines Scrn Negative Urine Cocaine Screen Negative U Marijuana (THC) Screen Negative Ur Drug Screen Comment See Note Preliminary micro results at discharge 05/31/24 09:27 Urine Culture - Preliminary Urine,Clean Catch Gram negative joselin Discharge Plan Discharge Disposition: Home, Self-Care Date of Admission: 05/31/24 12:14 Attending Provider on Discharge: Lyla Thakkar Primary Care Provider: Provider,Not a Local Condition: Stable Anticipated Discharge Date/Time: 06/01/24 14:00 Discharge Medications: New ciprofloxacin HCl 500 mg Tablet 500 mg PO BID 4 Days Qty: 8 0RF Discharge Orders: Discharge Order (Routine); Ordered 06/01/24 Ordered By: Lyla Thakkar Additional Instructions: 10/01 supervision Establish PCP in 2-4 weeks Activity Level: No Restrictions Discharge Diet: Regular Follow Up Appointments: Provider,Not a Local [Primary Care Provider] - Forms: [employer] Info Instructions
[2024-06-01 11:30] VITALS: BP 167/82; PULSE 68; RESP 16; TEMP 36.8; O2SAT 98
--- NOTE | 2024-06-01 14:25 | PC.NURSE ---
Pt alert to self. Pt pleasant and cooperative. Pt had no complaints of pain. Pt up at carlos. Pt?s VSS. Pt?s Son to take Pt home to [place] with him. Pt Discharged home with son.
== END 2024-06-01 13:58 | disposition home or self-care (01) ==
LOC: ED 11:33 → MEDSURG 12:14
PROVIDERS: Family Medicine; Admitting Provider Internal Medicine; Emergency Provider Family Medicine; Visit Provider Internal Medicine
DX: N39.0 Urinary tract infection, site not specified (principal); R46.89 Other symptoms and signs involving appearance and behavior; F03.918 Unspecified dementia, unspecified severity, with other behavioral disturbance
CPT/HCPCS: 36415; 70450; 80048; 80306; 81001; 81003; 82077; 83605; 84484; 85025; 87086; 87186; 87631; 97165; 99284; 99285; A9270; G0378

== ENCOUNTER 2024-11-15 06:25 | Emergency (ER) | payer OTHER, SELFPAY ==
--- OUTSIDE RECORDS SUMMARY | 2024-01-11 08:00 | XMS_ITS | Encounter Summary ---
Author Name [facility] Address [address] [place] [id number] Care Team Providers Care Surgical Assistant Certified Name Role Phone ROMANA GOLDSTEIN Primary Care [...] PART A Jul 21, 2007 PART A [id number] [phone] [phone] PRATEEK COHN PATIENT MEDICARE (WNR) MEDICARE (M) PART A Jul 21, 2007 PART A [id number] PRATEEK COHN PATIENT Selected Encounter This section includes the information on record at [place] for the Encounter. Date/Time Encounter Type Encounter Description Reason Provider Source Jan 11, 2024 01:00 PM OFFICE O/P EST HI 40 MIN PRIMARY CARE/MEDICINE ICD-10-CM S06.6X9S Traum subrac hem w LOC of unsp duration, sequela ROMANA GOLDSTEIN IHTiny Encounter Template Text not used by [facility] Assessments - Encounter Diagnoses This section includes the primary and secondary diagnoses documented for the Encounter. Date/Time Primary/Secondary Diagnosis Diagnosis Name Provider Source Jan 11, 2024 02:51 PM PRIMARY Traum subrac hem w LOC of unsp duration, sequela ROMANA GOLDSTEIN ([facility]) Jan 11, 2024 02:51 PM SECONDARY Alzheimer's disease with late onset ROMANA GOLDSTEIN ANA LAURA ([facility]) Jan 11, 2024 02:51 PM SECONDARY Benign prostatic hyperplasia with lower urinary tract symp ROMANA GOLDSTEIN ANA LAURA ([facility]) Plan of Treatment: Future Appointments (+ 6 months) and Future Tests (+/- 45 days) The Plan of Treatment section includes future care activities for the patient from [facility] This section includes future appointments and future orders which are active, pending or scheduled. Future Appointments This section includes appointments that were scheduled to occur 6 months from the date of the Encounter, up to a maximum of 20 appointments. The data comes from all [facility] facilities. Appointment Date/Time Appointment Type Appointme nt Facility Name Jan 25, 2024 11:44 AM AMBULATORY - NONE [facility] Jan 31, 2024 09:00 AM AMBULATORY - PSYCHIATRY MIRI SCOTT ([facility]) Jan 31, 2024 09:01 AM AMBULATORY - PSYCHIATRY [facility] Mar 23, 2024 01:01 PM AMBULATORY - NONE [facility] May 31, 2024 05:14 PM AMBULATORY - NONE [facility] Vital Signs: All taken on the encounter date This section contains inpatient and outpatient Vital Signs collected on the date of the Encounter. Date/Time Temperature Pulse Blood Pressure Respiratory Rate SP02 Pain Height Weight Body Mass Index Source Jan 11, 2024 01:37 PM 83 131/70 96 [facility] ([facility]) Jan 11, 2024 01:31 PM 97.2 81 146/73 18 96 0 183.8 26 [facility] ([facility]) Social History: Smoking Status (Most current) and Tobacco Use (All prior to encounter date) This section includes the most current, and the historical, smoking and tobacco- related health factors from the [place] facility where the Encounter took place. Current Smoking Status This section includes the most current smoking, or tobacco-related health factor, from the [place] facility where the Encounter took place. Date/Time Current Smoking Status Anatoly ferrer Jan 11, 2024 01:00 PM ME-TOBACCO NEVER USED [facility] ([facility]) Tobacco Use History This section includes a history of the smoking, or tobacco-related health factors, that were collected on or before the date of the Encounter. The data comes from the [place] facility where the Encounter took place. Date/Time Smoking Status/Tobacco Use Comment Petrona zapata Sep 07, 2021 08:00 AM ME-TOBACCO NEVER USED [facility] ([facility]) Encounter Notes: All associated encounter notes This section contains the clinical notes associated to the Encounter. Date/Time Encounter Note(s) Provider Source Jan 11, 2024 01:45 PM PRIMARY CARE NOTE: LOCAL TITLE: [facility] PROGRESS NOTE-[facility] STANDARD TITLE: PRIMARY CARE NOTE DATE OF NOTE: JAN 11, 2024@13:45 ENTRY DATE: JAN 11, 2024@13:46:03 AUTHOR: ROMANA GOLDSTEIN COSIGNER: URGENCY: STATUS: COMPLETED Type of Visit: Face to Face Reason for Visit: follow up hospital, presents today with his Lisbeth. HPI: 83 year-old MALE here for follow up a hospital stay after a 6 foot fall from a ladder. 11/23/23-12/27/23 Due to fall, injuries accrued: Subarachnoid Hemorrhage With Loss Of Conscious Large left frontal scalp hematoma Fracture Pelvis Fracture Acetabulum s/p ORIF 11/25/23 Fracture Ilium Fracture Rib, left side Retroperitoneal Hematoma Intramuscular hematomas in the left psoas, left iliacus and left gluteus minimus and medius Hemorrhagic shock s/p 7 units PRBCs, 2 units FFP, 2 units Platelets, 2 units cell salvage Left lower extremity DVT - no homegoing anticoagulation needed Was started on Finasteride 5mg, Tamsulosin 0.4mg, Metoprolol Tartrate 12.5mg - reports irregular heartbeat but all ECGs are NSR OR SB, one did have sinus arrythmia but all rates were controlled. Today: Is not taking metoprolol, finasteride, or tamsulosin - BP and HR well controlled - Denies chest pain, trouble breathing - Reports no difficulty with urination - Denies pain - Gets around the house without his walker -- uses walker out and about, no concerns with ambulation at this time is interested in memory testing, she reports when was hospitalized that [place] did testing before they left, and he was a level 4 in dementia. - PCP combed the [place] charts and no cognitive testing was able to be found. Home medications: reviewed and updated Review of systems: otherwise negative Past Medical History: Active problems - Computerized Problem List is the source for the followin. Hearing Loss, Partial * 2. Benign prostatic hyperplasia Past Surgical History: 1. Bilateral cataracts 2. Acetabulum fracture s/p ORIF 11/25/23 Family History: Father with some type of cancer, unclear type Social History: 1. , lives in [place] with , son, [id number], and 2 grandchildren 2. 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 : [employer] [id number] 4. Tobacco: lifetime nonsmoker 5. Alcohol: denies use Physical Exam: Temp: 97.2 F [36.2 C] (01/11/2024 13:31) Pulse:83 (01/11/2024 13:37) BP: 131/70 (01/11/2024 13:37) Resp: 18 (01/11/2024 13:31) Weight: 183.8 lb [83.37 kg] (01/11/2024 13:31) Pain: 0 (01/11/2024 13:31) O2 Sat: 96% (01/11/2024 13:37) BMI: 25.8 General: AAOx3, NAD, Healthy, elderly male, appears stated age. HEENT: AT/NC, no scleral icterus, neck supple CV: adequate perfusion Lungs: regular rate and depth, no audible wheezing or coughing Extrem: no clubbing, cyanosis, or edema; using walker to ambulate Neuro: non-focal Labs: Essential Medication List - reviewed with Patient/Caregiver FACILITY ALLERGY/ADR -------- No Remote Allergy/ADR Data available for this patient [facility] No Known Allergies Active Medications: + +--------+----- ---+--------+--------+ Medication (Local) New Med Old Dose New Dose Discontd + +--------+----- ---+--------+--------+ CATHETER,SELF-CATH COUDE ObdulioFR COLO#[id number] Directions: USE CATHETER FOUR TIMES A DAY Expires: 12/26/24 Status: ACTIVE + +--------+----- ---+--------+--------+ CLEANSING CLOTH ATTENDS PKT Directions: USE 1 WASHCLOTH TOPICALLY DIRECTED Expires: 12/15/24 Status: ACTIVE + +--------+----- ---+--------+--------+ LUBRICATING TOP JELLY BACTERIOSTATIC Directions: APPLY JELLY TOPICALLY DIRECTED FOR LUBRICATION Expires: 12/26/24 Status: ACTIVE + +--------+----- ---+--------+--------+ POVIDONE IODINE 10% SWABSTICK Directions: APPLY 1 SWAB FOUR TIMES A DAY FOR INTERMITTENT CATHING Expires: 12/26/24 Status: ACTIVE + +--------+----- ---+--------+--------+ SILDENAFIL CITRATE 25MG TAB Directions: TAKE ONE TABLET BY MOUTH WEEKLY NEEDED FOR ERECTILE DYSFUNCTION Expires: 01/12/24 Status: ACTIVE + +--------+----- ---+--------+--------+ URINAL,MALE PLASTIC DISPOSABLE Directions: USE URINAL URINAL,MALE PLASTIC DISPOSABLE TOPICALLY DIRECTED Expires: 12/15/24 Status: ACTIVE + +--------+----- ---+--------+--------+ Pending Medications: + +--------+----- ---+--------+--------+ Medication (Local) New Med Old Dose New Dose Discontd + +--------+----- ---+--------+--------+ No local medications found. + +--------+----- ---+--------+--------+ ======= Medications (Past 90 days): ======= + +--------+----- ---+--------+--------+ Medication (Local) New Med Old Dose New Dose Discontd + +--------+----- ---+--------+--------+ No local medications found. + +--------+----- ---+--------+--------+ Non-VA Medications: + +--------+----- ---+--------+--------+ Medication (Local) New Med Old Dose New Dose Discontd + +--------+----- ---+--------+--------+ No local medications found. + +--------+----- ---+--------+--------+ Discontinued Medications (Past 90 days): + +--------+----- ---+--------+--------+ Medication (Local) New Med Old Dose New Dose Discontd + +--------+----- ---+--------+--------+ No local medications found. + +--------+----- ---+--------+--------+ ====== Remote Medications (Past 90 days): ====== + +--------+----- ---+--------+--------+ Medication (Remote) New Med Old Dose New Dose Discontd + +--------+----- ---+--------+--------+ No remote medications found. + +--------+----- ---+--------+--------+ Imaging Assessment/Plan: 1. Dementia r/t Alzheimer's Disease - [facility] testing today by Mental Health RN, Mickey Epstein. -- warm hand off provided via Teams 2. Benign Prostatic Hyperplasia w/ urinary retention - Refuses to take Tamsulosin, Finasteride - is proficient at straight cathing as needed 3. Blood pressure/Heart rate control - Controlled in clinic today - Refuses to take Metoprolol - Vaccinations: IM - Immunizations ADMINISTERED Immunization Series Date Facility Reaction Info TD (ADULT), 2 LF TETANUS TOXOID,* 09/20/2003 [facility] 11/23/2023 [facility] 02/04/2022 [facility] RTC in December 2024 for annual visit CPRS chart review/chart prep: 10 Time with patient: 10 Chart completion: 20 Clinical Reminders: Medication Reconciliation: Education Evaluations *Was medication education provided for NEW medications or CHANGES to medications? (including medication name, dose, route, reason for use, and potential side effects). No new medications or medication changes during this encounter. TERATOGENIC MED & CONTRACEPTION REVIEW (Optional)... === MEDICATION RECONCILIATION === Review Done: The medication list shown below was verified for accuracy and it includes all pending medications/active medications/all medications or discontinued within the last 90 days/all remote medications and non-VA medications. If a given category (i.e. remote meds) is not shown, that means that a patient doesn't have a medication(s) in that category. Allergies listed below were also reviewed/updated for accuracy. Allergies/ADR from DoD may not display in CPRS. Use JLV MRT5 - Allergies/ADRs FACILITY ALLERGY/ADR -------- No Remote Allergy/ADR Data available for this patient [facility] No Known Allergies Active and Recently Outpatient Medications (including Supplies): Issue Date Status Last Fill Active Outpatient Medications Refills Expiration 1) CATHETER,SELF-CATH COUDE 14FR COLO#[id number] ACTIVE Issu:12-26-23 Qty: 120 for 30 days Sig: USE Refills: 3 Last:12-27-23 CATHETER FOUR TIMES A DAY Expr:12-26-24 2) CLEANSING CLOTH ATTENDS PKT Qty: 3 for ACTIVE Issu:12-15-23 30 days Sig: USE 1 WASHCLOTH Refills: 11 Last:12-15-23 TOPICALLY DIRECTED Expr:12-15-24 3) LUBRICATING TOP JELLY BACTERIOSTATIC ACTIVE Issu:12-26-23 Qty: 120 for 30 days Sig: APPLY JELLY Refills: 3 Last:12-27-23 TOPICALLY DIRECTED FOR LUBRICATION Expr:12-26-24 4) POVIDONE IODINE 10% SWABSTICK Qty: 120 ACTIVE Issu:12-26-23 for 30 days Sig: APPLY 1 SWAB FOUR Refills: 3 Last:12-27-23 TIMES A DAY FOR INTERMITTENT CATHING Expr:12-26-24 5) SILDENAFIL CITRATE 25MG TAB Qty: 18 for ACTIVE Issu:01-11-23 90 days Sig: TAKE ONE TABLET BY MOUTH Refills: 3 Last:01-11-23 WEEKLY NEEDED FOR ERECTILE Expr:01-12-24 DYSFUNCTION 6) URINAL,MALE PLASTIC DISPOSABLE Qty: 3 ACTIVE Issu:12-15-23 for 30 days Sig: USE URINAL Refills: 2 Last:12-15-23 URINAL,MALE PLASTIC DISPOSABLE Expr:12-15-24 TOPICALLY DIRECTED /dexter/ Romana Goldstein APRN, CNP Signed: 01/11/2024 14:54 ROMANA GOLDSTEIN ([facility]) Jan 11, 2024 01:36 PM ADVANCE DIRECTIVE: LOCAL TITLE: AD NOTIFICATION AND SCREENING STANDARD TITLE: ADVANCE DIRECTIVE DATE OF NOTE: JAN 11, 2024@13:36 ENTRY DATE: JAN 11, 2024@13:36:48 AUTHOR: THANH BOURNE EXP COSIGNER: URGENCY: STATUS: COMPLETED ADVANCE DIRECTIVE NOTIFICATION: Patient was given written notification of the following rights: 1. Accept or refuse any medical treatment. 2. Complete a durable power of trademark attorney for health care. 3. Complete a living will. ADVANCE DIRECTIVE SCREENING: Does patient have an Advance Directive? The patient does not have an Advance Directive. The patient does not wish to create an Advance Directive for health care. /dexter/ THANH Santos [facility] STUFFED CASING TIER Signed: 01/11/2024 13:37 THANH BOURNE ([facility]) Jan 11, 2024 01:32 PM PRIMARY CARE NURSI NG NOTE: LOCAL TITLE: [facility] NURSING PROGRESS NOTE STANDARD TITLE: PRIMARY CARE NURSING NOTE DATE OF NOTE: JAN 11, 2024@13:32 ENTRY DATE: JAN 11, 2024@13:32:40 AUTHOR: THANH BOURNE COSIGNER: URGENCY: STATUS: COMPLETED TYPE OF VISIT: Appointment Check In Type of appointment: In-person appointment REASON FOR VISIT: Hospital follow up ALLERGIES: Patient has answered NKA VITAL SIGNS: Blood Pressure: 146/73 (01/11/2024 13:31) Pulse: 81 (01/11/2024 13:31) Respiration: 18 (01/11/2024 13:31) Temperature: 97.2 F [36.2 C] (01/11/2024 13:31) Weight: 183.8 lb [83.37 kg] (01/11/2024 13:31) Height: 70.787 in [179.8 cm] (09/07/2021 08:36) BMI: 25.8 O2 Sat: 96% (01/11/2024 13:31) Pain: 0 (01/11/2024 13:31) PAIN SCREEN: Patient is not having significant pain that they wish to discuss with their provider today. Influenza Immunization: No influenza vaccination was received during the recent influenza season. COVID-19 Immunization: Refused Pfizer Monovalent COVID-19 vaccine Immunization: COVID-19 (PFIZER), MRNA, LNP-S, PF, CLAUDIA-SUCROSE, 30 MCG/0.3 ML (AGES 12+ YEARS) Refusal Reason: PATIENT DECISION Patient refuses all immunization(s) in the COVID-19 group Date Documented: 01/11/24 13:33 Herpes Zoster (Shingles) Vaccine: The patient declines to receive the recommended dose of zoster (shingles) vaccine. Immunization: ZOSTER RECOMBINANT Refusal Reason: PATIENT DECISION Patient refuses all immunization(s) in the ZOSTER group Date Documented: 01/11/24 13:33 Alcohol Use Screen (AUDIT-C): Alcohol Screen: SCREEN FOR ALCOHOL (AUDIT-C) An alcohol screening test (AUDIT-C) was negative (score=0). 1. How often did you have a drink containing alcohol in the past year? Consider a drink to be a 12 ounce can or bottle of regular beer, 8 ounces of malt liquor, a 5 ounce glass of table wine, or a 1.5 ounce shot of liquor (like scotch, gin, or vodka). Never 2. How many drinks containing alcohol did you have on a typical day when you were drinking in the past year? Response not required due to responses to other questions. 3. How often did you have six or more drinks on one occasion in the past year? Response not required due to responses to other questions. Tobacco Use Screening: The patient has never used tobacco. Nursing Annual Screening: Fall History Screen During the past 12 months, have you had any falls? Patient reports one fall with injury requiring treatment in the past 12 months. MEDICATIONS: Patient does not have an active prescription for one of the following medications: Antihypertensives, Antidepressants, Antipsychotics, Diuretics, or Opioid Analgesics (Contolled Substance medications used for pain). Script Talk Screen Are you able to read your prescription bottles with your glasses, magnifiers or other aids? Yes or patient not taking any prescriptions. Skin Screen Patient reports any current pressure ulcers, a history of pressure ulcers, or a wound from a medical radiation dosimetrist or Patient is bed-confined or a wheelchair-user or Patient requires assistance to transfer/change position No, Skin Screen is Negative Home Abuse/Violence Screen Is your home free of abuse and violence? Yes MOVE! Program Screen Body Mass Index (BMI)= 25.8 [place]: Collection DT Specimen Test Name Result Units Ref Range 09/07/2021 09:19 BLOOD HEMOGLOBIN A1C 6.0 % 4.0 - 6.0 [place] Hgb A1C: No data available [place] Hgb A1C: No data available Point of Care Hgb A1C: POC HGB A1C____ Outpatient Nutrition Screen Body Mass Index (BMI)= 25.8 [place]: Collection DT Specimen Test Name Result Units Ref Range 09/07/2021 09:19 BLOOD HEMOGLOBIN A1C 6.0 % 4.0 - 6.0 [place] Hgb A1C: No data available [place] Hgb A1C: No data available Point of Care Hgb A1C: POC HGB A1C____ Is patient's BMI less than 18.5? No Does patient have swallowing, coughing, or chewing problems affecting oral intake? No Has patient experienced unplanned weight loss or gain greater than 10 pounds over the last 2 months? No Is patient's Hgb A1C (Glycosylated Hemoglobin) greater than 9.5? No Is patient receiving Total Parenteral Nutrition (TPN) or Tube Feedings? No Patient Health Education Screen BARRIERS/SPECIAL NEEDS: Cognitive limitations PREFERRED STYLE OF LEARNING: Other: family Client Assistive Service (BRYNN) Screen Does the patient require assistance with outpatient visit? No Depression Screening: Perform PHQ-2 A PHQ-2 screen was performed. The score was 0 which is a negative screen for depression. Over the past two weeks, how often have you been bothered by the following problems? 1. Little interest or pleasure in doing things Not at all 2. Feeling down, depressed, or hopeless Not at all Suicide Screen: C-SSRS Screening [place] Suicide Severity Rating Scale (C-SSRS) screener 1. Over the past month, have you wished you were or wished you could go to sleep and not wake up? No 2. Over the past month, have you had any actual thoughts of killing yourself? No 3. Over the past month, have you been thinking about how you might do this? Response not required due to responses to other questions. 4. Over the past month, have you had these thoughts and had some intention of acting on them? Response not required due to responses to other questions. 5. Over the past month, have you started to work out or worked out the details of how to kill yourself? Response not required due to responses to other questions. 6. If yes, at any time in the past month did you intend to carry out this plan? Response not required due to responses to other questions. 7. In your lifetime, have you ever done anything, started to do anything, or prepared to do anything to end your life (for example, collected pills, obtained a gun, gave away valuables, went to the roof but didn't jump)? No 8. If YES, was this within the past 3 months? Response not required due to responses to other questions. Homelessness/Food Insecurity Screen: In the past 2 months, have you been living in stable housing that you own, rent, or stay in as part of a household? Yes - Living in stable housing. Are you worried or concerned that in the next 2 months you may NOT have stable housing that you own, rent, or stay in as part of a household? No - Not worried about housing near future The reports the following: Within the past 12 months, you worried whether your food would run out before you got money to buy more. Never true Within the past 12 months, the food you bought just didn't last and you didn't have money to get more. Never true Food Assistance Programs [facility] Food Assistance Programs [facility] Pneumococcal Conjugate Vaccine (PCV15/PCV20): Refuses PCV vaccine Immunization: PNEUMOCOCCAL CONJUGATE, UNSPECIFIED FORMULATION Refusal Reason: PATIENT DECISION Patient refuses all immunization(s) in the PneumoPCV group Date Documented: 01/11/24 13:35 PTSD Screening: PC-PTSD-5 A PTSD screening test (PC-PTSD-5) was negative (score=0). IN THE PAST MONTH, have you ever had any experience that was so frightening, horrible or traumatic. For example: A serious accident or fire a physical or sexual assault or abuse An earthquake or flood A war Seeing someone be killed or seriously injured Having a loved one through homicide or suicide 1. Have you ever experienced this kind of event? NO 2. Had nightmares about the event(s) or thought about the event(s) when you did not want to? Response not required due to responses to other questions. 3. Tried hard not to think about the event(s) or went out of your way to avoid situations that reminded you of the event(s)? Response not required due to responses to other questions. 4. Been constantly on guard, watchful, or easily startled? Response not required due to responses to other questions. 5. [place] numb or detached from people, activities, or your surroundings? Response not required due to responses to other questions. 6. [place] guilty or unable to stop blaming yourself or others for the event(s) or any problems the event(s) may have caused? Response not required due to responses to other questions. 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 The [place]/caregiver was informed that we will continue to ask this screening question every 5 years. They can contact their provider/healthcare team if they have concerns about exposures and would like to be screened sooner. Printed information was offered and provided if desired. /dexter/ THANH Santos [facility] STUFFED CASING TIER Signed: 01/11/2024 13:36 THANH BOURNE ([facility])
--- OUTSIDE RECORDS SUMMARY | 2024-01-31 04:01 | XMS_ITS | Encounter Summary ---
Author Name [facility] Address [address] [place] [address] Care Team Providers Care Seat Mender Name Role Phone ROMANA GOLDSTEIN Primary Care [...] PART A Jul 21, 2007 PART A [id number] [phone] PRATEEK COHN PATIENT MEDICARE (WNR) MEDICARE (M) PART A Jul 21, 2007 PART A [id number] [phone] PRATEEK COHN PATIENT Selected Encounter This section includes the information on record at [place] for the Encounter. Date/Time Encounter Type Encounter Description Reason Pro vider Source Jan 31, 2024 09:01 AM Outpatient Encounter PSYCHOLOGICAL TESTING IHE Encounter Template Text not used by [place] Plan of Treatment: Future Appointments (+ 6 [...] 20 appointments. The data comes from all [place] treatment facilities. Appointment Date/Time Appointment Type Appointme nt Facility Name Mar 23, 2024 01:01 PM AMBULATORY - NONE [facility] May 31, 2024 05:14 PM AMBULATORY - NONE [facility] Social History: Smoking Status (Most current) and Tobacco Use (All prior to encounter date) This section includes the most current, and the historical, smoking and tobacco- related health factors from the [place] facility where the Encounter took place. Current Smoking Status This section includes the most current smoking, or tobacco-related health factor, from the [facility] where the Encounter took place. Date/Time Current Smoking Status Comment Facil itDec 01, 2017 02:51 PM LIFETIME NON-TOBACCO USER [facility] Tobacco Use History This section includes a history of the smoking, or tobacco-related health factors, that were collected on or before the date of the Encounter. The data comes from the [facility] where the Encounter took place. Date/Time Smoking Status/Tobacco Use Comment F acility Aug 10, 2016 09:08 AM FORMER TOBACCO USER 7Y OR GREATE R [facility] Aug 10, 2016 09:08 AM LIFETIME NON-TOBACCO USER [facility] Sep 06, 2014 08:19 AM FORMER TOBACCO USER 7Y OR GREATE R [facility] Dec 09, 2011 01:28 PM FORMER TOBACCO USER 7 OR [facility] R [facility] Encounter Notes: All associated encounter notes This section contains the clinical notes associated to the Encounter. Date/Time Encounter Note(s) Provider Source Jan 31, 2024 09:00 AM NO SHOW NOTE: LOCAL TITLE: NO SHOW/CANCELLATION CLINIC NOTE STANDARD TITLE: NO SHOW NOTE DATE OF NOTE: JAN 31, 2024@09:00 ENTRY DATE: JAN 31, 2024@09:44:05 AUTHOR: KAIN PELAEZ EXP COSIGNER: URGENCY: STATUS: COMPLETED [facility] not seen for scheduled appointment due to: No Show did not present for neuropsychology appointment. Called and left HIPAA-compliant message. [facility]'s Lisbeth returned my call. She stated that they were scheduled through community care for a neuropsych evaluation 02/05 to go closer to home, and her understanding was that today's appointment had been cancelled. She reported that she is considering cancelling the upcoming neuropsychology appointment as the [facility] is showing striking improvements physically and cognitively and she would prefer to hold off on comprehensive assessment until further stabilization has occurred. This was discussed in detail and I agreed that this is a reasonable plan. She denied any MH concerns about the [facility]. Appointment Rescheduled: No Consult will be cancelled - they were scheduled in the community and prefer to wait until a later date for evaluation. I will cancel the consult and alert neuropsychology MSAs to john the 8.13 appointment as a no-show. Please review patient chart and medications for renewal needs (if appropriate). /dexter/ KAIN PELAEZ, PHD, LP, ABPP STAFF NEUROPSYCHOLIGST Signed: 01/31/2024 09:48 KAIN PELAEZ [facility]
--- OUTSIDE RECORDS SUMMARY | 2024-06-11 07:36 | XMS_ITS | Encounter Summary ---
Author Name [facility] [facility] Address [address] [place] [address] Care Team Providers Care Motorcycle Maker Name Role Phone ROMANA GOLDSTEIN Primary [...] PART A Jul 21, 2007 PART A [id number] [phone] PRATEEK COHN PATIENT MEDICARE (WNR) MEDICARE ([place]) PART A Jul 21, 2007 PART A [id number] [phone] PRATEEK COHN PATIENT Selected Encounter This section includes the information on record at [place] for the Encounter. Date/Time Encounter Type Encounter Description Reason Provider Source Jun 11, 2024 12:36 PM Outpatient Encounter ADMIN PAT ACTIVTIES ([email or web address]) ICD-10-CM Y93.E6 Activity, residential relocation STACY SWEENEY Encounter Template Text not used by [facility] Assessments - Encounter Diagnoses This section includes the primary and secondary diagnoses documented for the Encounter. Date/Time Primary/Secondary Diagnosis Diagnosis Name Provider Source Jun 11, 2024 12:36 PM PRIMARY Activity, residential relocation STACY SWEENEY [facility] Encounter Notes: All associated encounter notes This section contains the clinical notes associated to the Encounter. Date/Time Encounter Note(s) Provider Source Jun 11, 2024 12:36 PM PACT NOTE: LOCAL TITLE: [facility] MULTI PACT (MPACT)REQUEST STANDARD TITLE: PACT NOTE DATE OF NOTE: JUN 11, 2024@12:36 ENTRY DATE: JUN 11, 2024@12:36:41 AUTHOR: STACY SWEENEY EXP COSIGNER: URGENCY: STATUS: COMPLETED Permanent Relocation to [facility]: PC[facility] actionable request received for needing PACT assignment to: [place], [place] . Per chart review, PACT appointment: is scheduled for Jun. PCMM request approved as permanent relocation. /dexter/ SATCY Barnard Hoffman Coordinator, RN Signed: 06/11/2024 12:36 STACY SWEENEY [facility]
--- OUTSIDE RECORDS SUMMARY | 2024-06-11 07:40 | XMS_ITS | Encounter Summary ---
Author Name [facility] Organization [facility] [place] Address [address] [place] [address] Care Team Providers Care Headwaitress Name Role Phone ROMANA GOLDSTEIN Primary Care [...] PART A Jul 21, 2007 PART A [id number] [id number] [phone] PRATEEK COHN PATIENT MEDICARE (WNR) MEDICARE (M) PART A Jul 21, 2007 PART A [id number] [phone] PRATEEK COHN PATIENT Selected Encounter This section includes the information on record at [place] for the Encounter. Date/Time Encounter Type Encounter Description Reason Provider Source Jun 11, 2024 12:40 PM Outpatient Encounter ADMIN PAT ACTIVTIES (VINNIEDIETERCT) ANDRIY MOHR Tiny Encounter Template Text not used by [place] Social History: Smoking Status (Most current) and [...] 01, 2017 02:51 PM LIFETIME NON-TOBACCO USER [facility] Tobacco Use History This section includes a history of the smoking, or tobacco-related health factors, that were collected on or before the date of the Encounter. The data comes from the [place] facility where the Encounter took place. Date/Time Smoking Status/Tobacco Use Comment F acility Aug 10, 2016 09:08 AM FORMER TOBACCO USER 7Y OR GREATE R [facility] Aug 10, 2016 09:08 AM LIFETIME NON-TOBACCO USER [facility] Sep 06, 2014 08:19 AM FORMER TOBACCO USER 7Y OR [facility] Dec 09, 2011 01:28 PM FORMER TOBACCO USER OR [facility] Encounter Notes: All associated encounter notes This section contains the clinical notes associated to the Encounter. Date/Time Encounter Note(s) Provider Source Jun 11, 2024 12:40 PM DESK LIEUTENANT REFER RAL NOTE: LOCAL TITLE: TRAVELING/RELOCATING PCMM NOTE STANDARD TITLE: DESK LIEUTENANT REFERRAL NOTE DATE OF NOTE: JUN 11, 2024@12:40 ENTRY DATE: JUN 11, 2024@12:40:33 AUTHOR: ANDRIY MOHR EXP COSIGNER: URGENCY: STATUS: COMPLETED Per [facility], is permanently relocating to [facility] 06/29/24. /dexter/ ANDRIY MOHR RN UTILIZATIONMANAGEMENT Signed: 06/11/2024 12:41 ANDRIY MOHR [facility]
--- OUTSIDE RECORDS SUMMARY | 2024-10-28 16:06 | XMS_ITS | Continuity of Care Document ---
Author Name [facility] Organization [facility] Care Team Providers Care Impregnator And Drier Helper Name Role Phone [facility] Unavailable Unavailable Problems Combined list of problems from Department of Defense and Veterans Affairs facilities. It does not include entries that were removed or entered in error. 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 [facility] ([facility]) Atypical Chest Pain (ICD-9-CM 786.59) Inactive Condition 09/07/2021 [facility] Elevated blood pressure reading without diagnosis of hypertension Inactive Condition 09/07/2021 [facility] Routine General Medical Examination at a Health Care Facility * Inactive Condition 09/07/2021 [facility] Seasonal allergy Inactive Condition 09/07/2021 [facility] 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) Inactive Condition 09/07/2021 [facility] Diagnosis: ICD-10-CM Y93.E6 Activity, residential relocation Active Diagnosis [facility] Diagnosis: ICD-10-CM F03.90 Unsp dementia, unsp severity, without beh/psych/mood/an x Active Diagnosis [facility] ([facility]) Diagnosis: ICD-10-CM S06.6X9S Traum subrac hem w LOC of unsp duration, sequela Active Diagnosis [facility] ([facility]) Diagnosis: ICD-10-CM Z74.09 Other reduced mobility Active Diagnosis [facility] Diagnosis: ICD-10-CM S06.2XAA Diffuse TBI with LOC status unknown, initial encounter Active Diagnosis [facility] Medications Combined list of outpatient medications from Department of Defense and Veterans Affairs facilities.Medications provided include 1) outpatient medications from the last 15 months, and 2) patient-reported medications. Medication Details Route Status Patient Instructions Prescription Expires Prescription Number Last Dispense Date Ordering Provider Order Date Order Qty Source HYDROCORTIS ONE 2.5% CREAM,TOP APPLY THIN LAYER TOPICALL Y TWICE A DAY NEEDED FOR ITCHING TOPICA Alexandrea ACTIVE 03/21/2025 [id number] TRISTON,AL ICIA ANANTH 2023 30 [facility] ([facility]) LUBRICATING JELLY,TOP,B ACTERIOSTAT IC APPLY JELLY TOPICALL Y DIRECTED FOR LUBRICAT ION TOPICA Alexandrea ACTIVE 12/26/2024 [id number] 4 TRISTONJOSSE ICIA ANANTH 2023 120 [facility] ([facility]) POVIDONE IODINE 10% SWABSTICK,T OP APPLY 1 SWAB FOUR TIMES A DAY FOR INTERMIT TENT CATHING MINO Lechuga ACTIVE 12/26/2024 [id number] 4 JOSSE GOLDSTEIN ICIA ANANTH 2023 120 [facility] ([facility]) Immunizations Combined list of available immunizations from the Department of Defense and Veterans Affairs facilities. Immunization Series Date Given Administered By Site Reaction Lot Number CVX Code Drug Store Protection Specialist Status Comments Source TDAP 2023 115 complet ed HISTORICA L INFORMATI ON - FROM OTHER REGISTRY, [facility] TDAP 2021 115 complet ed HISTORICA L INFORMATI ON - FROM OTHER REGISTRY, [facility] TD (ADULT), 2 LF TETANUS TOXOID, PRESERVATIVE FREE, ADSORBED 2003 09 complet ed HISTORICA L INFORMATI ON - FROM OTHER REGISTRY, [facility] Vital Signs Combined list of inpatient and outpatient Vital Signs from Department of Defense and Veterans Affairs, ranging from 12 months to all on record, depending upon the facility. Vital Sign Value Date Comments Source SYSTOLIC BLOOD PRESSURE 146 01/11/2024 13:31:48 [facility] ([facility]) DIASTOLIC BLOOD PRESSURE 73 01/11/2024 13:31:48 [facility] ([facility]) PULSE OXIMETRY 96 01/11/2024 13:31:48 [facility] [place] ([facility]) WEIGHT 183.8 01/11/2024 13:31:48 [facility] ([facility]) BMI 26 kg/m2 01/11/2024 13:31:48 [facility] ([facility]) PAIN 0 01/11/2024 13:31:48 [facility] ([facility]) TEMPERATURE 97.2 01/11/2024 13:31:48 [facility] ([facility]) PULSE 81 01/11/2024 13:31:48 [facility] ([facility]) RESPIRATION 18 01/11/2024 13:31:48 [facility] ([facility]) Encounters Combined list of: 1) Encounters from Department [facility] facilities going backup to the last 18 months, not all [place] inpatient encounters are included; 2) Encounters from the Department of [facility] facilities going backup to 280 months. Location Location Details Encounter Type Encounter Number Reason For Visit Attending Provider ADM Date DC Date Status Disposition Source [place] [facility] Outpatient Encounter [id number] 05/26 [place] [facility] [place] [facility] Outpatient Encounter [id number] 07/19 [place] [facility] [place] [facility] Outpatient Encounter [id number] 09/20 [facility] [place] [facility] Outpatient Encounter [id number] 11/22 [facility] [place] [facility] Outpatient Encounter [id number] 11/29 [facility] [place] [facility] Outpatient Encounter [id number] PARI ESPINOSA 11/30 [place] [facility] [place] [facility] Outpatient Encounter [id number] 12/01 [place] [facility] [place] [facility] Outpatient Encounter [id number] 12/05 [place] [facility] [place] [facility] Outpatient Encounter [id number] 12/08 [place] [facility] [place] [facility] Outpatient Encounter [id number] 12/12 [place] [facility] ([facility]) HC PRO PHONE CALL 21-30 MIN [id number] Diagnos is: ICD-10- CM S06.2XA A Diffuse TBI with LOC status unknown , initial encount er DARVIN AGUIRRE 12/14 [facility] ([facility] Outpatient Encounter [id number] 12/19 [facility] CASE MANAGEMENT [id number] Diagnos is: ICD-10- CM Z74.09 Other reduced mobilit y ADAMI-OSS LAILA Chris 12/19 [facility] CASE MANAGEMENT [id number] Diagnos is: ICD-10- CM Z74.09 Other reduced mobilit y ADAMI-OSS LAILA Chris 12/20 [facility] Outpatient Encounter [id number] 12/22 [facility] Outpatient Encounter [id number] 12/22 [facility] Outpatient Encounter [id number] 12/22 [facility] Outpatient Encounter [id number] Gurjit PATHAK 12/22 [facility] Outpatient Encounter [id number] 12/29 [facility] Outpatient Encounter [id number] 01/01 [facility] OFFICE O/P EST HI 40 MIN [id number] Diagnos is: ICD-10- CM S06.6X9 S Traum subrac hem w LOC of unsp kristina chandler ALI CIA JOY 01/10 [facility] ([facility] Outpatient Encounter [id number] 01/10 [facility] HEALTH ASSESS BY MYAH [id number] Diagnos is: ICD-10- CM F03.90 Unsp dementi a, unsp severit y, without beh/psy ch/mood /anx CLEMENT GIRON 01/10 [facility] ([facility]) [facility] Outpatient Encounter [id number] HORACE GOLDSTEIN CIA 01/10 [facility] Outpatient Encounter [id number] Alexandrea BURRELL 01/24 [facility] Outpatient [facility]counter [id number] 01/30 [facility] Outpatient Encounter [id number] Alexandrea BURRELL 03/23 [facility] Outpatient Encounter [id number] 04/03 [facility] Outpatient Encounter [id number] Alexandrea BURRELL 05/31 [facility] Outpatient Encounter [id number] 06/01 [facility] Outpatient Encounter [id number] 06/06 [facility] Outpatient Encounter [id number] Diagnos is: ICD-10- CM Y93.E6 Activit y, residen tial relocat [place]mine [place] ANY P 06/11 [facility] Outpatient Encounter [id number] XOCHITL MOHR 06/11 [facility] Outpatient Encounter [id number] 06/28 [facility] Outpatient Encounter [id number] 07/22 [facility] Social History Combined list of available smoking, tobacco, and other social history from Department of Defense and Veterans Affairs facilities. Social History Type Response Date Comment Sourc e Tobacco smoking status 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
--- OUTSIDE RECORDS SUMMARY | 2024-10-28 16:06 | XMS_ITS | Continuity of Care Document ---
Author Name [facility] Organization [facility] Care Team Providers Care Agronomy Internship Name Role Phone [facility] Unavailable Unavailable Problems Combined list of problems from Department of Defense and Veterans Affairs facilities. It does not include entries that were removed or entered in error. 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 [place] ([facility]) Atypical Chest Pain (ICD-9-CM 786.59) Inactive Condition 09/07/2021 [facility] Elevated blood pressure reading without diagnosis of hypertension Inactive Condition 09/07/2021 [facility] Routine General Medical Examination at a Health Care Facility * Inactive Condition 09/07/2021 [facility] Seasonal allergy Inactive Condition 09/07/2021 [facility] 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) Inactive Condition 09/07/2021 [facility] Diagnosis: ICD-10-CM Y93.E6 Activity, residential relocation Active Diagnosis [facility] Diagnosis: ICD-10-CM F03.90 Unsp dementia, unsp severity, without beh/psych/mood/an x Active Diagnosis [facility] ([facility]) Diagnosis: ICD-10-CM S06.6X9S Traum subrac hem w LOC of unsp duration, sequela Active Diagnosis [facility] ([facility]) Diagnosis: ICD-10-CM Z74.09 Other reduced mobility Active Diagnosis [facility] Diagnosis: ICD-10-CM S06.2XAA Diffuse TBI with LOC status unknown, initial encounter Active Diagnosis [facility] ([facility] Medications Combined list of outpatient medications [...] NEEDED FOR ITCHING TOPICA Alexandrea ACTIVE 03/21/2025 [id number] 4 TRISTON,AL ICIA ANANTH 2023 30 [facility] ([facility]) LUBRICATING JELLY,TOP,B ACTERIOSTAT IC APPLY JELLY TOPICALL Y DIRECTED FOR LUBRICAT ION TOPICA Alexandrea ACTIVE 12/26/2024 [id number] 4 TRISTONJOSSE ICIA ANANTH 2023 120 [facility] ([facility]) POVIDONE IODINE 10% SWABSTICK,T OP APPLY 1 SWAB FOUR TIMES A DAY FOR INTERMIT TENT CATHING MINO Lechuga ACTIVE 12/26/2024 [id number] 4 JOSSE GOLDSTEIN ICIA ANANTH 2023 120 [facility] ([facility]) Immunizations Combined list of available immunizations from the Department of Defense and Veterans Affairs facilities. Immunization Series Date Given Administered By Site Reaction Lot Number CVX Code Drug College Specialist Status Comments Source TDAP 2023 115 complet ed HISTORICA L INFORMATI ON - FROM OTHER REGISTRY, [facility] TDAP 2021 115 complet ed HISTORICA L INFORMATI ON - FROM OTHER REGISTRY, [facility] TD (ADULT), 2 LF TETANUS TOXOID, PRESERVATIVE FREE, ADSORBED 2003 09 complet ed HISTORICA L INFORMATI ON - FROM OTHER REGISTRY, [facility] Vital Signs Combined list of inpatient and outpatient Vital Signs from Department of Defense and Veterans Affairs, ranging from 12 months to all on record, depending upon the facility. Vital Sign Value Date Comments Source SYSTOLIC BLOOD PRESSURE 146 01/11/2024 13:31:48 [place] ([facility]) DIASTOLIC BLOOD PRESSURE 73 01/11/2024 13:31:48 [...] Combined list of: 1) Encounters from Department [facility] facilities going backup to the last 18 months, not all [place] inpatient encounters are included; 2) Encounters from the Department of [facility] facilities going backup to 280 months. Location Location Details Encounter Type Encounter Number Reason For Visit Attending Provider ADM Date DC Date Status Disposition [place] [facility] Outpatient Encounter [id number] 05/26 [place] [facility] [place] [facility] Outpatient Encounter [id number] 07/19 [place] [facility] [place] [facility] Outpatient Encounter [id number] 09[facility]20 [facility] [place] [facility] Outpatient Encounter [id number] 11/22 [facility] [place] [facility] Outpatient Encounter [id number] 11/29 [facility] [place] [facility] Outpatient Encounter [id number] PARI ESPINOSA 11/30 [place] [facility] [place] [facility] Outpatient Encounter [id number] 12/01 [place] [facility] [place] [facility] Outpatient Encounter [id number] 12/05 [place] [facility] [place] [facility] Outpatient Encounter [id number] 12/08 [place] [facility] [place] [facility] Outpatient Encounter [id number] 12/12 [place] [facility] ([facility]) HC PRO PHONE CALL 21-30 MIN [id number] Diagnos is: ICD-10- CM S06.2XA A Diffuse TBI with LOC status unknown , initial encount er DARVIN AGUIRRE 12/14 [facility] Outpatient Encounter [id number] 12/19 [facility] CASE MANAGEMENT [id number] Diagnos is: ICD-10- CM Z74.09 Other reduced mobilit y ADAMI-OSS LAILA Chris 12/19 [facility] CASE MANAGEMENT [id number] Diagnos is: ICD-10- CM Z74.09 Other reduced mobilit y ADAMI-OSS LAILA Chris 12/20 [facility] Outpatient Encounter [id number] 12/22 [facility] Outpatient Encounter [id number] 12/22 [facility] Outpatient Encounter [id number] 12/22 [facility] Outpatient Encounter [id number] Gurjit PATHAK 12/22 [facility] Outpatient Encounter [id number] 12/29 [facility] Outpatient Encounter [id number] 01/01 [facility] OFFICE O/P EST HI 40 MIN [id number] Diagnos is: ICD-10- CM S06.6X9 S Traum subrac hem w LOC of unsp kristina chandler ALI CIA JOY 01/10 [facility] ([facility]) [facility] Outpatient Encounter [id number] 01/10 [facility] ([facility] HEALTH ASSESS BY MYAH [id number] Diagnos is: ICD-10- CM F03.90 Unsp dementi a, unsp severit y, without beh/psy ch/mood /anx CLEMENT GIRON 01/10 [facility] Outpatient Encounter [id number] HORACE GOLDSTEIN CIA 01/10 [facility] Outpatient Encounter [id number] Alexandrea BURRELL 01[facility]24 [facility] Outpatient Encounter [id number] 01/30 [facility] Outpatient Encounter [id number] Alexandrea BURRELL 03/23 [facility] Outpatient Encounter [id number] 04/03 [facility] Outpatient Encounter [id number] Alexandrea BURRELL 05/31 [facility] Outpatient Encounter [id number] 06/01 [facility] Outpatient Encounter [id number] 06/06 [facility] [place] En[place] [id number] Diagnos is: ICD-10- CM Y93.E6 Activit y, residen tial relocat jazzmine [place] ANY P 06/11 [facility] Outpatient Encounter [id number] XOCHITL MOHR 06/11 [facility] Outpatient Encounter [id number] 06/28 [facility] [place] Encounter [id number] 07/22 [facility] Social History Combined list of available smoking, tobacco, and other social history from Department of Defense and Veterans Affairs facilities. 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
--- OUTSIDE RECORDS SUMMARY | 2024-11-15 06:27 | XMS_ITS | Clinical Summary ---
Author Organization [facility] Address [address] [place] [address] Care Team Providers Care Environmental Sampler Name Role Phone None Reported, Pcp Primary Care Provider Unavail able Source Comments Patient records contain information from all sites at [facility]. For routine questions regarding patient records, call [phone] during business hours, M-F 8:00 AM - 5:00 PM Central Time. Record requests for emergency care only can be directed to [phone] at any time.[facility] Allergies No known active allergies Medications acetaminophen (TylenoL) 325 mg tablet Take 2 tablets (650 mg total) by mouth every 6 (six) hours as needed for pain or mild pain or score 1-3 of 10. 4 Active polyethylene glycol (Miralax) 17 gram powder packet Take 1 packet (17 g total) by mouth daily. Dissolve each 17 g dose in 240 mLs (8 ounces) of beverage. 4 Active Additional Information Patient not taking.Reported on 02/13/2024 melatonin 5 mg tablet Take 1 tablet (5 mg total) by mouth at bedtime as needed (If having troubles falling asleep). 4 Active Additional Information Patient not taking.Reported on 02/13/2024 sennosides (Senokot) 8.6 mg tablet Take 2 tablets (17.2 mg total) by mouth 2 (two) times a day. 4 Active Additional Information Patient not taking.Reported on 02/13/2024 finasteride (Proscar) 5 mg tablet Take 1 tablet (5 mg total) by mouth daily. 60 tablet 4 Active Additional Information Patient not taking.Reported on 02/13/2024 metoprolol tartrate (Lopressor) 25 mg tablet Take 0.5 tablets (12.5 mg total) by mouth 2 (two) times a day. 60 tablet Active Additional Information Patient not taking.Reported on 02/13/2024 tamsulosin (Flomax) 0.4 mg 24 hr capsule Take 2 capsules (0.8 mg total) by mouth daily. 60 capsule Active Additional Information Patient not taking.Reported on [...] Acetabulum Closed Initial Left 11/23/19 24 Immunizations Immunization Administration Dates Next Due Tdap 11/23/2023 Social History Tobacco Use Types Packs/Day Years Used Date Smoking Tobacco: Never Assessed Dental Answer Date Recorded Dental: Regular Dentist Unknown 11/23/19 Sex and Gender Information Value Date Recorded Sex Assigned at Not on file Legal Sex Male 12:47 PM CDT Gender Identity Not on file Sexual Orientation Not on file Last Filed Vital Signs Vital Sign Reading Time Taken Comments Blood Pressure 124/64 12/27/2023 8:20 AM CDT Pulse 76 12/27/2023 8:20 AM CDT Temperature 36.6 C (97.9 F) 12/27/2023 8:20 AM CDT Respiratory Rate 16 12/27/2023 8:20 AM CDT Oxygen Saturation 98% 12/27/2023 8:20 AM CDT Inhaled Oxygen Concentration - - Weight 93.4 kg (205 lb 14.6 oz) 12/17/2023 3:58 AM CDT Height 180.3 cm (5' 10.98) 11/29/2023 1:51 PM C DT Body Mass Index 28.73 11/29/2023 1:51 PM CDT Plan of Treatment Health Maintenance Due Date Last Done Comments Pneumococcal vaccine (50+ years) (1 of 1 - PCV) 1992 Zoster Vaccines (1 of 2) 1992 RSV vaccine - (32-3 6 weeks) or 60+ years (1 - 1-dose 75+ series) 2017 COVID-19 Vaccine ( - 2023-2 5 season) 2024 Influenza Vaccine (#1) 2024 Fall Risk Screen (Annual) 06/20/2024 DTaP,Tdap,and Td Vaccines (3 - Td or Tdap) 11/22/2033 11/23/2023, 02/04/2022, 09/20/2003 IPV Vaccines Aged Out No longer eligi ble based on patient's age to complete this topic Medical Devices Implanted Type Area Fast Food Supervisor Device Identifier Shelf Expiration Date Model / Serial / Lot Grft Ost Dbm [facility] 5 - [id number] - [id number] Implanted:Qt y: 1 on 11/25/2023 by Naveed Higuera M.D. at [facility] Bone or Tissue Left: Acetabulum Medtronic 05/29/2028 [id number] / [id number] / Clp Apr [facility] - [id number] Implanted:Qt y: 1 on 11/25/2023 by Naveed Higuera M.D. at [facility] Hardware e.g. pins/screws /rods Left: Acetabulum Ethicon [id number] 09/17/2028 [id number] / / [id number] Washr Rnd Ss Elkin Elkin 9x8x3.5 - [id number] Implanted:Qt y: 1 on 11/25/2023 by Naveed Higuera M.D. at [facility] Hardware e.g. pins/screws /rods Left: Acetabulum Tamiko [id number] / / Plt Spctnl Qls 16h Lt - [id number] Implanted:Qt y: 1 on 11/25/2023 by Naveed Higuera M.D. at [facility] Hardware e.g. pins/screws /rods Left: Acetabulum [place] [id number] / / Scrw Axs St Fthrd Lck 3.5x38 - [id number] Implanted:Qt y: 1 on 11/25/2023 by Naveed Higuera M.D. at [facility] Hardware e.g. pins/screws /rods Left: Acetabulum Tamiko [id number] / / Scrw Axs St Fthrd Lck 3.5x26 - [id number] Implanted:Qt y: 1 on 11/25/2023 by Naveed Higuera M.D. at [facility] Hardware e.g. pins/screws /rods Left: Acetabulum [place] [id number] / / Scrw Axs St Fthrd Lck 3.5x55 - [id number] Implanted:Qt y: 2 on 11/25/2023 by Naveed Higuera M.D. at [facility] Hardware e.g. pins/screws /rods Left: Acetabulum [place] [id number] / / Scrw Axs St Fthrd Lck 3.5x28 - [id number] Implanted:Qt y: 2 on 11/25/2023 by Naveed Higuera M.D. at [facility] Hardware e.g. pins/screws /rods Left: Acetabulum Tamiko [id number] / / Scrw Axs St Fthrd Lck 3.5x34 - [id number] 3 Implanted:Qt y: 1 on 11/25/2023 by Naveed Higuera M.D. at [facility] Hardware e.g. pins/screws /rods Left: Acetabulum [place] [id number] / / Scrw Axs St Fthrd Lck 3.5x90 - [id number] Implanted:Qt y: 1 on 11/25/2023 by Naveed Higuera M.D. at [facility] Hardware e.g. pins/screws /rods Left: Acetabulum Tamiko [id number] / / Scrw Axs St Fthrd Lck 3.5x95 - [id number] 3 Implanted:Qt y: 1 on 11/25/2023 by Naveed Higuera M.D. at [facility] Hardware e.g. pins/screws /rods Left: Acetabulum Tamiko [id number] / / Scrw Axs St Fthrd Lck 3.5x120 - [id number] 3 Implanted:Qt y: 2 on 11/25/2023 by Naveed Higuera M.D. at [facility] Hardware e.g. pins/screws /rods Left: Acetabulum Tamiko [id number] / / Insurance MEDICARE Advance Directives For more information, please contact: [phone] * Full Code (Latest Code Status on File) Date Activated Date Inactivated Comments 11/23/2023 5:00 PM 12/27/2023 12:36 PM Question Answer Comments Full Code: Discussed Care Teams Environmental Sampler Relationship Specialty Start Date End Date None Reported, Pcp PCP - General 04/27/24
--- OUTSIDE RECORDS SUMMARY | 2024-11-15 06:28 | XMS_ITS | Clinical Summary ---
Author Organization [facility] Address [address] [place] [id number] Care Team Providers Care Editor Producer Name Role Phone [place] Primary Care Provider [phone] Allergies No known active allergies Medications omeprazole (PRILOSEC) 20 mg Delayed-Release capsuleIndicati ons:Chronic cough,Abdominal pain, epigastric Take 1 capsule by mouth once daily before a meal. 30 capsule 1 08/23/2018 Active ofloxacin 0.3 % ophthalmic (OCUFLOX) 0.3 % ophthalmic solution 1 drop in surgical eye twice daily for 10 days. 5 mL 6 09/04/2018 9:12 AM CDT 09/04/2018 Active prednisoLONE acetate 1% ophthalmic (ECONOPRED PLUS, PRED FORTE, OMNIPRED) suspension Place 1 Drop in surgical eye 4x/day, taper as directed. SHAKE WELL 15 mL 5 09/04/2018 9:12 AM CDT 09/04/2018 Active ketorolac 0.5 % ophthalmic (ACULAR) solution Place 1 Drop into surgical eye 4 times daily. 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 Gender Identity Not on file Sexual Orientation Not on file 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 Not on file Not on file Not o n file Obstetrics History Last Filed Vital Signs Vital Sign Reading Time Taken Comments Blood Pressure 142/78 11/06/2018 10:43 AM CDT Pulse 72 09/14/2021 7:56 AM CDT Temperature 36.4 C (97.5 F) 10/12/2018 10:02 AM CDT Respiratory Rate 16 10/12/2018 1:33 PM CDT Oxygen Saturation 97% 09/14/2021 7:56 AM CDT Inhaled Oxygen Concentration - - Weight 82.5 kg (181 lb 12.8 oz) 09/14/2021 7:56 AM CDT Height 180.3 cm (5' 11) 10/12/2018 10: 02 AM CDT Body Mass Index 25.36 10/12/2018 10:02 AM CDT Plan of Treatment Health Maintenance Due Date Last Done Comments Tdap 1953 Pneumococcal series for age 50+ (1 of 1 - PCV) 1992 Zoster (shingles) series for age 50+ (1 of 2) 1992 Tetanus booster 09/19/2013 09/20/2003, 2000 RSV vaccine for adults or (1 - 1-dose 75+ series) 2017 Medicare Wellness for age 65+ 10/14/2018 10/13/2017 BMI (ht and wt on same day) for age 18+ 08/24/2019 08/23/2018, 10/13/2017, 12/15/2015 Depression screening for age 12+ 08/24/2019 08/23/2018, 10/13/2017, 10/13/2017, Additional history exists COVID-19 vaccine series ( season) 2024 Influenza Vaccine (Season Ended) 2025 Hepatitis B series for 19+ Aged Out N o longer eligible based on patient's age to complete this topic Medical Devices Implanted Type Area Compressor Operator Portable Device Identifier Shelf Expiration Date Model / Serial / Lot Iol Cabell +23.5 Tecnis [id number] - [id number] Implanted:Qty: 1 on 09/04/2018 by Pacheco Greenwood MD at [facility] Right: Eye [employer] 03/03/2022 ZCB00 23.5# / [id number] / Iol Cabell +23.5 Tecnis Zcb00 - [id number] Implanted:Qty: 1 on 10/12/2018 by Pacheco Greenwood MD at [facility] Left: Eye [employer] 01/09/2022 ZCB00 23.5# / [id number] / Insurance [id number] [address] [place] [id number] [facility] Advance Directives * Full Code (Latest Code Status on File) Date Activated Date Inactivated Comments 10/12/2018 9:48 AM 10/12/2018 4:08 PM * Full Code Date Activated Date Inactivated Comments 09/04/2018 8:31 AM 09/04/2018 1:15 PM Care Teams Editor Producer Relationship Specialty Start Date End Date [place] 1 Vetrans IGOR Sharpe [phone] PCP - General 09/28/22
[2024-11-15 06:36] VITALS: BP 158/78; PULSE 65; RESP 20; TEMP 36.6; O2SAT 65; BMI 23.7
[2024-11-15] MEDS: 0.9 % SODIUM CHLORIDE 1000 ml 1,000 ML IV (08:04)
[2024-11-15 08:25] VITALS: BP 147/68; PULSE 58; RESP 16; O2SAT 96
[2024-11-15 08:25] LABS: Basophils Percent Auto 0.3 % (0.0-3.0); Eosinophils Percent Auto 0.3 % (0.0-7.0); Hematocrit 45.2 % (37.0-53.0); Hemoglobin* 14.3 gm/dL (13.5-17.5); Immature Granulocytes Pct Auto 2.3 %; Lymphocytes Percent Auto 30.3 % (20-44); Mean Corpuscular HGB Conc 32 gm/dL (32-36); Mean Corpuscular Hemoglobin 30 pg (26-34); Mean Corpuscular Volume 95 fL (80-100); Neutrophils Percent Auto 54.8 % (42.0-72.0); Platelet Count* 193 K/uL (140-440); RDW Coefficient of Variation % 13.9 % (11.5-15.5); Red Blood Count 4.75 m/uL (4.30-5.90)
--- NOTE | 2024-11-15 08:25 | ED_ITS ---
HPI - General Adult General Chief complaint: Eye Problems Stated complaint: left eye pain- woke him up from sleep Time Seen by Provider: 11/15/24 07:33 History of Present Illness HPI narrative: Patient c/o left eye pain when waking today at 0500. Patient tried an eye was cup at home. Patient's states the patient c/o YAP and dizziness for the last two days?patient denies these symptoms currently. 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 Patient has h/ o dementia. Patient is alert, oriented and answers questions appropriately. CSS negative in triage. 84-year-old man presenting to the emergency department with concern of something irritating or in his left eye. He is not having any changes of vision. After extensive evaluation during this exam of his eye without clear findings and spouse does offer more information. Underlying history of dementia. Had been a little dizzy Andwith some headache; maybe a little weaker too when asked. There are not been any falls. Spouse watches him closely. He ago clarifies that he feels like there is a grain of sand or something behind his eyeball. No fevers. No dysuria. No cough or cold symptoms. No chest pain. At this time he does not feel dizzy. Spouse does acknowledge that he has about 60% stenosis in 1 of the carotids. She gestures to the right. May have had similar symptoms in the past with urinary tract infection. Also these symptoms of imbalance happened sometime she says. He does not take any medications; no anticoagulation. He may have been recommended these things but will not take medication. Spouse says ?it's a stubborn thing?. Related Data Previous Rx's ?Medication ?Instructions ?Recorded ciprofloxacin HCl 500 mg tablet 500 mg PO BID 4 days # 8 tabs 06/01/24 Allergies Allergy/AdvReac Type Severity Reaction Status Date / Time No Known Drug Allergies Allergy Verified 05/31/24 08:05 Review of Systems Status of ROS: Reports: 6 or more systems reviewed and unremarkable except as noted in History and below [facility] Medical History Carotid artery stenosis ?I65.29 - Occlusion and stenosis of unspecified carotid artery (ICD-10) Traumatic brain injury ?S06.9XAA - Unspecified intracranial injury with loss of consciousness status unknown, initial encounter (ICD-10) Sensorineural hearing loss ?H90.5 - Unspecified sensorineural hearing loss (ICD-10) Lumbar degenerative disc disease ?M51.36 - Other intervertebral disc degeneration, lumbar region (ICD-10) Retention of urine (09/03/21) ?R33.9 - Retention of urine, unspecified (ICD-10) Family History (Updated 05/31/24 @ 12:56 by Lyla Thakkar MD) Other Dementia Social History Narrative: . Lives at home with . noted that their son, who lives in [place], is driving up to take Carlos Alberto home with him to live. Carlos Alberto denies tobacco or alcohol use. says he is DNR/DNI. What is your current living situation?: I presently have a place to live Problems where you live: no known problems Problems where you live details: na In the past 12 months, utilities in danger of being shut off: no In past 12 months, lack of transportation kept you from medical appts, meetings, work, or getting things needed for daily living: no In the past 12 mos, have been you worried that your food would run out before you had money to buy more?: never true In the past 12 mos, the food you bought just didn't last and you didn't have money to buy more?: never true Highest level of school completed/degree received: Associate degree: occup ational, technical, vocational program Smoking Status: Never smoker Do you use any of these nicotine containing products: None Second hand tobacco smoke exposure: Yes How often do you have a drink containing alcohol: never How often do you have six or more drinks on one occasion: Never AUDIT-C Alcohol total score: 0 Non-prescribed substance use: denies use How often does anyone, including family, friends and others, physically hurt you : unable to answer How often does anyone, including family, friends and others, insult or talk down to you: unable to answer How often does anyone, including family, friends and others, threaten you with harm: unable to answer How often does anyone, including family, friends and others, scream or curse at you: unable to answer service: Yes Exam Narrative: Exam Narrative: Pleasant. NAD. Appears hard of hearing. Examination of the left eye does not reveal any clear injury to the eye. There is intermittently appearing to be some uptake in the pericorneal sclera but I am unconvinced. There is prominent gland without inflammatory changes in the inner lower lid. Do not see any foreign body here. There are no corneal abrasions. Pupils are 2 mm and equal. I do attempt funduscopic exam. Challenging but does not appear to be abnormal. Heart is in regular rate and rhythm. Little distant but I do not detect a murmur. Abdomen soft nontender. Lungs are clear. Const: Vital Signs, click to edit/add: Vital Signs - 24 hr 11/15/24 06:36 11/15/24 08:25 Temperature 97.9 F Pulse Rate [Left P ulse Oximeter] 65 58 L Respiratory Rate 20 16 Blood Pressure [Le ft Upper Arm] 158/78 H 147/68 H Pulse Oximetry 65 L 96 Oxygen Delivery Me thod Room Air Room Air Documenting provider has reviewed patient's vital signs: yes Course Vital Signs Vital signs: Initial Vital Signs Temperature 97.9 F 11/15/24 06:36 Temperature Source Temporal Artery Scan 11/15/24 06:36 Pulse Rate 65 11/15/24 06:36 Respiratory Rate 20 11/15/24 06:36 Blood Pressure 158/78 H 11/15/24 06:36 Blood Pressure Mean 104 11/15/24 06:36 Blood Pressure Position Sitting 11/15/24 06:36 Pulse Oximetry 65 L 11/15/24 06:36 Oxygen Delivery Method Room Air 11/15/24 06:36 Vital Signs Temperature 97.9 F 11/15/24 06:36 Pulse Rate 65 11/15/24 06:36 Respiratory Rate 20 11/15/24 06:36 Blood Pressure 158/78 H 11/15/24 06:36 Pulse Oximetry 65 L 11/15/24 06:36 Oxygen Delivery Method Room Air 11/15/24 06:36 Temperature 97.9 F 11/15/24 06:36 Pulse Rate 58 L 11/15/24 08:25 Respiratory Rate 16 11/15/24 08:25 Blood Pressure 147/68 H 11/15/24 08:25 Pulse Oximetry 96 11/15/24 08:25 Oxygen Delivery Method Room Air 11/15/24 08:25 Medications Administered Medications: Discontinued Medications Generic Name Dose Route Start Last Admin Trade Name Doyleq PRN Reason Stop Dose Admin Sodium Chloride 1,000 mls @ 1,000 mls/hr 11/15/24 07:50 11/15/24 08:04 0.9 % Sodium Chloride 1000 Ml IV 11/15/24 08:49 1,000 mls/hr .Q1H ONE Administration Medical Decision Making MDM Narrative Medical decision making narrative: Possibly complaint of the left eye. Outwardly I do not see anything significant. Perhaps there is missense of developing chalazion? Otherwise would check basic labs for indication of infection or electrolyte abnormalities. Might be some time before get a urinalysis. Likely is dehydrated. Bolusing L of fluids. Provided all is unremarkable from a laboratory standpoint, I think at this point I would then recommend evaluation at his eye clinic. Symptoms of the eye are reassuring in part that there is no effect on vision; does not seem consistent with retinal compromise. There has been no known trauma. Will be handing off at change of shift. Medical Records Medical records reviewed: Yes I reviewed the patient's medical records Lab Data Lab results reviewed: Yes I reviewed the patient's lab results Labs: Lab Results 11/15/24 Range/Units 08:05 WBC 3.50 L (4.50-11.00) K/uL RBC 4.75 (4.30-5.90) m/uL Hgb 14.3 (13.5-17.5) gm/dL Hct 45.2 (37.0-53.0) % MCV 95 (80-100) fL MCH 30 (26-34) pg MCHC 32 (32-36) gm/dL RDW Coeff of Scott 13.9 (11.5-15.5) % Plt Count 193 (140-440) K/uL Neut % (Auto) 54.8 (42.0-72.0) % Lymph % (Auto) 30.3 (20-44) % Pleasants % (Auto) 12.0 H (0.0-11.0) % Eos % (Auto) 0.3 (0.0-7.0) % Baso % (Auto) 0.3 (0.0-3.0) % Neut # (Auto) 1.90 (1.7-7.0) K/uL Lymph # (Auto) 1.10 (0.90-2.90) K/uL Pleasants # (Auto) 0.40 (0.00-0.90) K/UL Eos # (Auto) 0.00 (0.00-0.50) K/uL Baso # (Auto) 0.00 (0.00-0.30) K/uL Abs Immat Gran (auto) 0.10 (0.00-0.30) K/uL Imm/Tot Granulo (auto) 2.3 % Sodium 141 (135-149) mmol/L Potassium 4.4 (3.6-5.1) mmol/L Chloride 104 (96-114) mmol/L Carbon Dioxide 32 (20-32) mmol/L Anion Gap 5 L (7-15) mEq/L BUN 22 (7-30) mg/dL Creatinine 1.1 (0.5-1.5) mg/dL Estimated Creat Clear 56.83 Estimated GFR 67 ml/min Glucose 96 (60-115) mg/dL Calcium 9.0 (8.4-10.6) mg/dL ECG Data Attestation: I personally reviewed and interpreted this ECG as follows: (Normal sinus rhythm. Rate of 60.) Discharge Plan Discharge Clinical Impression: Irritation of left eye, Weakness Additional Instructions: Please follow-up with your eye clinic for better exam. Return for worsening weakness, fever. Prescriptions: No Action ciprofloxacin HCl 500 mg Tablet 500 mg PO BID 4 Days Qty: 8 0RF Follow Up/Referrals: Provider,Not a Local [Primary Care Provider, Family Practice]
[2024-11-15 08:27] LABS: Slide Review Reflex No
[2024-11-15 08:29] LABS: Chloride* 104 mmol/L (96-114); Sodium* 141 mmol/L (135-149)
[2024-11-15 08:30] LABS: Potassium* 4.4 mmol/L (3.6-5.1)
[2024-11-15 08:32] LABS: Blood Urea Nitrogen* 22 mg/dL (7-30); Creatinine* 1.1 mg/dL (0.5-1.5); Est. Creatinine Clearance* 56.83; Estimated Glomerular Filt Rate 67 ml/min
[2024-11-15 08:33] LABS: Anion Gap 5 mEq/L (7-15); Carbon Dioxide* 32 mmol/L (20-32); Glucose* 96 mg/dL (60-115)
[2024-11-15 09:01] LABS: PCR FLU A Negative PCR FLU A (Negative); PCR FLU B Negative PCR FLU B (Negative); PCR RSV Negative PCR RSV (Negative); SARS PCR* Negative SARS-CoV-2 (Negative)
[2024-11-15 09:16] LABS: Appearance Urine Cloudy (Clear); Bilirubin Urine Negative (Negative); Blood Urine Trace-intact (Negative); Color Urine Yellow (Yellow); Glucose Urine Negative (Negative); Ketones Urine Negative (Negative); Leukocyte Esterase Urine 3+ (Negative); Nitrite Urine Positive (Negative); Protein Urine Negative (Negative); Specific Gravity Urine 1.015 (1.000-1.030); Urobilinogen Urine 0.2 (0.2-1.0); pH Urine 7.5 (5.0-8.5)
[2024-11-15 09:47] LABS: Bacteria Urine Many; Mucus Urine Moderate; Other Sediment Urine FEW YEAST; Squamous Epithelial Cell Urine Few (None-Few); WBC Urine 25-50 (0-5)
== END 2024-11-15 10:15 | disposition home or self-care (01) ==
PROVIDERS: Emergency Provider Family Medicine
DX: H57.12 Ocular pain, left eye (principal); N39.0 Urinary tract infection, site not specified
CPT/HCPCS: 36415; 80048; 81001; 85025; 87086; 87631; 93005; 99284; A9270; J7030

== ENCOUNTER 2024-12-15 11:32 | Outpatient (CLI) | payer OTHER, SELFPAY | END 2024-12-15 11:33 | disposition home or self-care (01) | LOC: NFLDUCREF 11:33 | PROVIDERS: Visit Provider Physician Assistant | DX: R42 Dizziness and giddiness (principal); N39.0 Urinary tract infection, site not specified | CPT/HCPCS: 87086 ==